=== PATIENT | female | born 1950 | race Caucasian/White ===

== ENCOUNTER 2018-08-28 01:31 | Inpatient (IN) | payer MEDICARE, MEDICAID ==
[2018-08-28] VITALS (7 sets, daily range): BP systolic 106–122; BP diastolic 55–73; PULSE 67–85; RESP 18–24; Ht 154.9 cm; Wt 59.6 kg
[~2018-08-28] VITALS: Ht 154.9 cm; Wt 59.6 kg
[2018-08-28] MEDS ORDERED: SOD CHLORIDE 0.9% 1,000 ML IV ONE ×2 (02:00→04:30)
[2018-08-28] MEDS ORDERED: VANCOMYCIN 1 GM (PMX) 250 ML IVPB STA (02:45)
[2018-08-28] MEDS ORDERED: AZTREONAM 1 GM/NS (PMX) 50 ML IVPB STA (02:45)
[2018-08-28] MEDS ORDERED: ACETAMINOPHEN 325 MG TAB PO PRN (04:00)
[2018-08-28] MEDS ORDERED: ONDANSETRON 4 MG INJ IV PRN (04:00)
[2018-08-28] MEDS ORDERED: BISACODYL (EC) 5 MG TAB PO PRN (04:00)
[2018-08-28] MEDS ORDERED: NACL 0.9% 3 ML SYG IV SCH (04:00)
[2018-08-28] MEDS ORDERED: DOCUSATE SODIUM 100 MG CAP PO PRN (04:00)
--- NOTE | 2018-08-28 04:27 | HP ---
Date/Time of Note Date/Time of Note DATE: 08/28/18 TIME: 04:20 Assessment/Plan VTE Prophylaxis Pharmacological prophylaxis: heparin Lines/Catheters IV C[facility] Type (from [facility] Saline Lock Urinary Cath still in place: Yes Reason Cath still needed: other (indicate) (clinical condition) Assessment/Plan Hospital Course This is a 67-year-old female being admitted to the telemetry floor for: #1 suspect septic shock: Patient was noted to have a temperature of 93.7 on admission as well as hypotension. She was also noted to be hypoxic prior to arrival. She has a normal white blood cell count. Chest x-ray is concerning for bilateral healthcare associated pneumonia. She was started on vancomycin and aztreonam, will continue this regimen at the current time. Will await culture results. Lactic acid was within normal values will trend. IV fluid resuscitation with normal saline and maintenance normal saline. If blood pressures do not respond to fluid bolus may need vasopressor support. #2 suspect healthcare associated pneumonia: Bilateral infiltrates noted on chest x-ray, currently on vancomycin and aztreonam. Consider CT of the chest for further evaluation. #3 hypoxia: Likely secondary to underlying pneumonia, will also check a d-dimer level to rule out pulmonary embolism. #4 acute versus acute on chronic kidney disease: I do not have a previous baseline creatinine. Creatinine 1.28. Likely prerenal etiology secondary to underlying hypoperfusion, sepsis, hypovolemia. She did receive IV fluid resuscitation in the ED, continue maintenance IV fluids. Monitor renal f unction. #5 normocytic anemia, chronic: No signs of overt bleeding at the current time. Continue to monitor. Will check iron stores. #6hypothyroidism: We will check a TSH, continue levothyroxine we will converted to IV dosing #7 vascular dementia: Continue to monitor, resume home medications as indicated #8 behavioral disorder: Patient has a history of conversion disorder, schizophrenia, anxiety, depression. Resume home medications as indicated #9 hypertension: We will hold home blood pressure medication at the current time given patient's hypotension. #10 DVT and GI prophylaxis: Heparin subcu, no GI prophylaxis indicated #11 CODE STATUS: Currently full code, will need to reach out to the [facility] facility in regards to contacting the next of kin. I did not see any advanced directives in the patient's chart. Further treatment strategy will be implemented as per the clinical course. Result Diagram: 08/28/1820608/28/18 020 Results 24hrs Laboratory Tests Test 08/28/18 01:55 08/28/18 01:58 08/28/18 02:06 08/28/18 02:07 Bedside Glucose 123 POC Venous 1.8 Lactate Urine Color YELLOW Urine Clarity SLIGHTLY CLOUDY A Urine pH 5.0 Urine Specific 1.023 [place] Urine Ketones NEGATIVE Urine Nitrite NEGATIVE Urine Bilirubin NEGATIVE Urine NEGATIVE Urobilinogen Urine Leukocyte NEGATIVE Esterase Urine Microscopic 1 RBC Urine Microscopic 1 WBC Urine Bacteria FEW A Urine Mucus FEW A Urine Hemoglobin NEGATIVE Urine Glucose NEGATIVE Urine Total 1+ H Protein White Blood Count 6.7 Red Blood Count 3.35 L Hemoglobin 11.0 L Hematocrit 32.8 L Mean Corpuscular 97.9 Volume Mean Corpuscular 32.8 Hemoglobin Mean Corpuscular 33.5 Hemoglobin Concen t Red Cell 14.5 Distribution Width Platelet Count 261 Mean Platelet 10.5 H Volume Immature 0.700 H Granulocytes % Neutrophils % 40.5 Lymphocytes % 42.7 Monocytes % 14.8 H Eosinophils % 0.9 Basophils % 0.4 Nucleated Red 0.0 Blood Cells % Immature 0.050 H Granulocytes # Neutrophils # 2.7 Lymphocytes # 2.9 Monocytes # 1.0 H Eosinophils # 0.1 Basophils # 0.0 Nucleated Red 0.0 Blood Cells # Prothrombin Time 13.2 Prothrombin Time 1.0 Ratio INR International 0.99 Normalized Ratio Activated 33.3 Partial Thrombopl ast Time Sodium Level 135 Potassium Level 4.8 Chloride Level 99 Carbon Dioxide 22 Level Anion Gap 14 H Blood Urea 18 Nitrogen Creatinine 1.28 H Est Glomerular 42 L Filtrat Rate mL/min Glucose Level 117 Calcium Level 9.3 Total Bilirubin 0.0 L Direct Bilirubin 0.00 Indirect 0.0 Bilirubin Aspartate Amino 34 Transf (AST/SGOT) Alanine 11 L Aminotransferase (ALT/SGPT) Alkaline 79 Phosphatase Troponin I < 0.012 Total Protein 7.8 Albumin 3.9 Globulin 3.90 H Albumin/Globulin 1.00 Ratio HPI/ROS Admit Date/Time Admit Date/Time Hx of Present Illness Chief complaint: Unresponsive, hypotensive The following history was obtained from the ED nursing documentation and EMS report as patient was unable to provide history given her history of dementia. This is a 67-year-old female brought in by ambulance from [facility] where she was noted to be unresponsive and hypotensive. Patient was apparently found on the couch asleep without a blanket and she felt cold. Patient was unable to be awoken. Her blood pressure was checked by the caregivers and who was reported to be hypotensive with her oxygen saturation b eing approximately 78%. In the emergency room patient's blood pressure was noted to be in the 80s systolic. She was noted to be awake and moaning. Her temperature was noted to be 93.7 degrees and her oxygenation at that time was noted to be 94-97% on room air. Upon my examination the patient at the bedside she is easily arousable and she does know her name however she is unable to provide any further history. She has a warming blanket on. Allergies: Penicillin, sulfa, tryptophan, clindamycin, ketorolac, lactase Medications: See CASSIDY RIVERS Subjective hx not possible: other (Unable to provide history secondary to dementia and clinical condition) PMH/Family/Social Past Medical History Anemia, neutropenia, hypothyroidism, dementia vascular dementia, schizophrenia, psychosis, major depressive disorder, anxiety disorder, conversion disorder with seizures, encephalopathy, hypertension Medications Current Medications Vancomycin HCl 250 ml @ 125 mls/hr ONCE STAT IVPB Last administered on 08/28/18at 03:59; Admin Dose 125 MLS/HR; Start 08/28/18 at 02:45; Stop 08/28/18 at 04:44 Sodium Chloride 1,000 ml @ 100 mls/hr Q10H IV ; Start 08/28/18 at 03:39; Status UNV IV Flush (NS 3 ml) 3 ml PER PROTOCOL IV ; Start 08/28/18 at 04:00; Status UNV Ondansetron HCl (Zofran Inj) 4 mg Q4H PRN IV NAUSEA; Start 08/28/18 at 04:00; Status UNV Acetaminophen (Tylenol Tab) 650 mg Q6H PRN PO FEVER GREATER THAN 100.6; Start 08/28/18 at 04:00; Status UNV Docusate Sodium (Colace) 100 mg Q12H PRN PO CONSTIPATION; Start 08/28/18 at 04:00; Status UNV Bisacodyl (Dulcolax) 5 mg DAILY PRN PO CONSTIPATION; Start 08/28/18 at 04:00; Status UNV Vancomycin HCl (Vanco Iv Per Pharmacy) VANCOMYCIN PER PHARMACY PER PROTOCOL XX ; Start 08/28/18 at 04:00; Status UNV Aztreonam 50 ml @ 100 mls/hr Q12 IVPB ; Start 08/28/18 at 09:00; Status UNV Coded Allergies: Penicillins (Verified Allergy, Unknown, 08/28/18) Sulfa (Sulfonamide Antibiotics) (Verified Allergy, Unknown, 08/28/18) clindamycin (Verified Allergy, Unknown, 08/28/18) ketorolac (Verified Allergy, Unknown, 08/28/18) lactase (Verified Allergy, Unknown, 08/28/18) Uncoded Allergies: TRYPTOPHAN (Allergy, Unknown, 08/28/18) Past Surgical History : Unable to obtain given patient's clinical condition, dementia Family History Significant Family History: no pertinent family hx Social History Smoking Status: Unknown if ever smoked Exam/Review of Systems Vital Signs Vitals Vital Signs Date Temp Pulse Resp B/P (MAP) Pulse Ox O2 O2 Flow FiO2 Time Delivery Rate 08/28/18 96.1 79 12 103/65 98 Room Air 03:19 (78) Nasal Cannula 08/28/18 2 02:34 Intake and Output 08/27/18 08/27/18 08/28/18 1414:59 22:59 06:59 IntakeIntake Total 600 ml OutputOutput Total 15 ml BalanceBalance 585 ml Exam Exam General: Patient currently lying in bed she does not appear to be in any acute d istress, she is awake. HEENT: Atraumatic, normocephalic. The pupils are equal, round and reactive. E xtraocular motor are intact, mucous membranes dry Neck: Supple with full range of motion. No rigidity or meningismus Chest: Nontender Lungs: Coarse breath sounds bilaterally Heart: Normal S1-S2, Regular rhythm and rate. Abdomen: Soft , nontender, nondistended , bowel sounds are present. No guarding no rebound tenderness , No masses or organomegaly. No costovertebral temporal angle mass Extremities: Normal to inspection, no edema no cyanosis Neurologic: Awake, does say her name, further neurological examination was not able to be done given patient's dementia and clinical condition. Additional Comments EKG: Normal sinus rhythm at approximately 70 bpm, no ST or T wave abnormalities concerning for acute ischemia PROCEDURE: XR Chest. CLINICAL INDICATION: Sepsis. TECHNIQUE: AP Portable chest. COMPARISON: No pertinent prior examinations were submitted for comparison. FINDINGS: The cardiomediastinal silhouette is normal. The lung volumes are low with compressive changes. There are bibasilar opacities, greater on the right.. The osseous structures are intact. IMPRESSION: Low lung volumes. Bibasilar infiltrates. [facility] Physician Vira Date Time Electronically viewed and signed by Nenita Shepard Physician on 08/28/2018 02:35 CS/ CC: ODETTE CARPENTER [phone] BRIDGET DAHL Aug 28, 2018 04:27
[2018-08-28] MEDS ORDERED: VANCOMYCIN IV PER PHARMACY XX SCH (05:00)
[2018-08-28] MEDS: SOD CHLORIDE 0.9% 1,000 ML IV SCH ×3 (06:18→23:18)
[2018-08-28] MEDS ORDERED: BISA5TAB6 PO (06:44)
[2018-08-28] MEDS: HEPARIN 5,000 UNIT/1 ML VIAL SC SCH ×3 (06:44→20:34)
[2018-08-28] MEDS ORDERED: MINE133E23 PR (06:45)
[2018-08-28] MEDS ORDERED: ACET-2047 PO (06:45)
[2018-08-28] MEDS ORDERED: LEVE-5 PO (06:46)
[2018-08-28] MEDS ORDERED: PHEN1SUP80 PR (06:46)
[2018-08-28] MEDS ORDERED: GABA400C14 PO (06:46)
[2018-08-28] MEDS ORDERED: LEVO50TA7 PO (06:47)
[2018-08-28] MEDS ORDERED: METO-448 PO (06:47)
[2018-08-28] MEDS ORDERED: POLY17PO6 PO (06:48)
[2018-08-28] MEDS ORDERED: MULTI PO (06:49)
[2018-08-28] MEDS ORDERED: SENN-120 PO (06:49)
[2018-08-28] MEDS ORDERED: QUET200T PO ×2 (06:49→06:50)
[2018-08-28] MEDS ORDERED: TRA100 PO (06:50)
[2018-08-28] MEDS ORDERED: LACT20SO2 PO (06:51)
[2018-08-28] MEDS ORDERED: LORA1TAB PO (06:51)
[2018-08-28] MEDS ORDERED: ATOR10TA65 PO (06:51)
[2018-08-28] MEDS ORDERED: DIVA-48 PO (06:52)
[2018-08-28] MEDS ORDERED: DOCU-144 PO (06:52)
[2018-08-28] MEDS ORDERED: DONE5TAB7 PO (06:52)
[2018-08-28] MEDS ORDERED: SOD CHLORIDE 0.9% 100 ML ONE (07:21)
[2018-08-28] MEDS ORDERED: IOHEXOL 100 ML ONE (07:21)
--- NOTE | 2018-08-28 07:43 | NUR ---
Procedure Ordered:CTA CHEST Reason for Exam Today:ELEVATED D DIMER Previous Exams: Allergies:NONE TO IODINE Current Medications Taken: Glucophage ( ) Metformin ( ) Previous reaction to contrast media: Yes ( ) No ( ) : Yes ( ) No ( X) Asthma: Yes ( ) No ( X) Diabetes: Yes ( ) No (X ) Myeloma: Yes ( ) No (X ) Heart Disease: Yes ( X) No ( ) Cardiac Disease: Yes (X ) No ( ) Kidney Disease: Yes ( ) No (X ) Vascular Disease: Yes ( ) No (X ) Patient Teaching done: Yes ( ) No ( ) Sheet Tester Used: Yes ( ) No ( ) Name of Sheet Tester: Language Used: As part of the test requested by your doctor, contrast media may be injected into your vein while the x-rays are being taken. Occasionally, reactions from IV contrast may occur. The physician and staff of this hospital are trained to treat these reactions. Select the type of Contrast that will be given to patient: Isovue 300 ( ) Isovue 370 ( ) Visipaque ( ) Cystografin ( ) OMNIPAQUE 350 (X) Gastrographin ( ) Redi-cat ( ) Volumen ( ) Amount of contrast to be given: 90CC IV ( X) PO ( ) Date given:08/28/17 Lab Values: BUN: 18 Creatinine:1.28 Reason why contrast cannot be given: Location of patient pre-procedure:[facility] 5 Location of patient post procedure:[facility] 5 PT TOLERATED IV CONTRAST INJECTION WELL
--- NOTE | 2018-08-28 08:10 | NUR ---
Admission Pt came from ER via stretcher. Pt localizes to pain. Pt moans and is altered. court recording monitor placed. No family at bedside. Admission question answer is limited due to Pt unable to comprehend. Warming measures applied per MD order, Pt on a bear hugger as temperature is 95.9. Admission assessment done. Skin assessment done with charge nurse Yoon GILLILAND and pictures taken, filled on the chart. No belongings sent with Pt. Will continue to monitor Pt closely. Addendum: 08/28/18 at 1315 by MARVEL CARTER RN Spoke with DARSHANA Hui in [facility] to verify Pt's baseline. Per Ez GILLILAND, Pt is usually always moaning and crying at the facility too and stated that Pt's mentation is alert and oriented x 1 only. Addendum: 08/28/18 at 1644 by MARVEL CARTER RN Pt belongings sent from ER kept in the patient's room are: 1 set of clothes and 1 pair of shoes.
[2018-08-28] MEDS: LEVETIRACETAM 500 MG (PMX) 100 ML IVPB SCH ×2 (10:42→20:30)
[2018-08-28] MEDS: LEVOTHYROXINE 100 MCG VIAL IV SCH (10:53)
--- NOTE | 2018-08-28 12:33 | NUR ---
RX NOTE RE: VANCO DAY#1 OF VANCO PER RX HEIGHT: 61" WEIGHT: 59.6KG BUN/SCR: 18.28 WBC: 6.7 ALLERGIES: PCN, SULFA, CLINDAMYCIN, TRYPTOPHAN, KETOROLAC, LACTASE LOADED VANCO 1GM X1, C/W VANCO 750MG IV Q24H PHARMACY TO FOLLOW
[2018-08-28] MEDS: AZTREONAM 1 GM/NS (PMX) 50 ML IVPB SCH ×2 (13:06→20:30)
[2018-08-28] MEDS: HALOPERIDOL 5 MG INJ IM PRN (14:37)
--- NOTE | 2018-08-28 19:00 | NUR ---
EOSS Pt was agitated and anxious most of the day. MD was made aware. Pt continues to yell and moan throughout the day. Bedside swallow evaluation was done with charge nurse Yoon, Pt passed, diet advanced to pureed per MD order. ST eval pending. Pt was kept comfortable throughout the day. Repositioned q2h. Called Pt's family and left a message, awaiting for call back. MRI on hold as Pt is altered and can't get a hold of the patient's family to do MRI questionnaire. Call light within reach. Hourly rounding provided. Will endorse to next shift accordingly.
[2018-08-28] MEDS: DOCUSATE SODIUM 100 MG CAP PO SCH (20:30)
[2018-08-28] MEDS: traZODone 100 MG TAB PO SCH (20:31)
[2018-08-28] MEDS: QUETIAPINE 100 MG TAB PO SCH (20:31)
--- NOTE | 2018-08-28 23:19 | NUR ---
NOTES RESTING ON BED WITH IV FLUID INFUSING WILL. MEDS GIVEN. PT WAS SCREAMING INCOHERENT. O2 VIA NASAL CANNULA. TURN TO SIDE DONE AND KEEP HER COMFORTABLE. DR DAHL INFORMED ABOUT PT WAS SCREAMING AND ORDER TO GIVE HER REGULAR MEDS FOR SLEEP. MEDS GIVEN WITH APPLE SAUCE.
[2018-08-29] VITALS (10 sets, daily range): BP systolic 123–162; BP diastolic 62–84; PULSE 78–94; RESP 16–22
--- NOTE | 2018-08-29 00:07 | NUR ---
NOTES REPORT GIVEN TO KARLA GILLILAND.
[2018-08-29] MEDS: HALOPERIDOL 5 MG INJ IM PRN ×2 (01:46→17:37)
[2018-08-29] MEDS ORDERED: VANCOMYCIN 750 MG (PMX) 250 ML IVPB SCH (04:00)
[2018-08-29] MEDS: HEPARIN 5,000 UNIT/1 ML VIAL SC SCH ×3 (05:53→22:05)
[2018-08-29] MEDS: SOD CHLORIDE 0.9% 1,000 ML IV SCH ×2 (08:37→22:11)
[2018-08-29] MEDS: DOCUSATE SODIUM 100 MG CAP PO SCH ×2 (08:37→22:03)
[2018-08-29] MEDS: LEVOTHYROXINE 100 MCG VIAL IV SCH (08:40)
[2018-08-29] MEDS: LEVETIRACETAM 500 MG (PMX) 100 ML IVPB SCH ×2 (08:41→22:02)
[2018-08-29] MEDS ORDERED: INFLUENZA VIRUS VACCINE 0.5 ML (DISPENSING) IM* ONE (09:00)
[2018-08-29] MEDS: AZTREONAM 1 GM/NS (PMX) 50 ML IVPB SCH ×2 (09:14→22:02)
--- NOTE | 2018-08-29 12:22 | NUR ---
Bedside Clinical Swallow Evaluation Completed: Brief Hx: Ms. Becerra is a 67-year-old female being admitted after being transferred from [facility] for suspect septic shock. Per chart review, the pt was hypoxic s/p bilateral PNA upon arrival. PMHX: normocytic anemia, chronic, hypothyroidism, vascular dementia and hypertension. Chest XR completed on 08/28/2018: FINDINGS: The lung volumes are low with compressive changes. There are bibasilar opacities, greater on the right.. The osseous structures are intact. Low lung volumes. Bibasilar infiltrates. Vitals; temp: 98.2; RR: 20-22; SPO2: 99% on 2 liters/min on NC; Labs: WBC: 3.2L; Hgb/Hct: 9.9L/30.5L; NA: 142; K: 4.7; Chloride level: 107; Co2: 23; BUN: 10; Cr level: 0.66; Urine total P: 1+H PLOF: puree and thin liquids Current: puree and thin liquids Subjective assessment of cognition specific to swallow safety: Pt was received awake, alert, responsive to name and oriented to self, inconsistently follow simple commands. Oral mechanism examination completed: Face was symmetrical, lips, tongue and soft palate were symmetrical, unable to test strength of tongue and edentulous. P.O trials consisting of the following: thin liquids by cup and straw (single and sequential sips), puree x 8 bites. Oral phase of swallow: Reduced oral motor strength/coordination. Slow but adequate bolus manipulation, mastication and cohesive formation. Delayed anterior to posterior transit. Anterior oral leakage with thin liquids by cup out of the left lower labial region with sequential sips s/p reduced labial strength/seal. No residue was noted in the oral cavity after the swallow. Reduced oral control with larger volumes of thin liquid by cup and straw, resulting in suspected premature loss into the hypopharynx before initiation of the swallow. Pharyngeal phase of swallow: Mildly delayed trigger of swallow. Age appropriate hyolaryngeal excursion and elevation. Suspected residue in the pharyngeal cavity after the initial swallow but cleared with liquid wash. No overt s/s of aspiration or penetration noted. Reduced coordination of breath with swallow safety. Vocal quality was clear across p.o trials. Impression: Mild oropharyngeal dysphagia associated with reduced oropharyngeal strength/coordination, delayed trigger of swallow and reduced safety awareness s/p vascular dementia. Pt is safe to continue with modified diet and use of swallowing precautions. Recommendations: 1. Initiate dysphagia therapy 1-3x per week for 1-2 weeks 2. Continue puree diet and thin liquids by cup. no straws at this time. 3. ongoing swallow assessment.
[2018-08-29] MEDS ORDERED: MAGNESIUM SULFATE 2 GM/50 ML 50 ML IVPB ONE (12:30)
--- NOTE | 2018-08-29 12:35 | PN ---
Date/Time of Note Date/Time of Note DATE: 08/29/18 TIME: 12:21 Assessment/Plan VTE Prophylaxis Risk score (from Nsg)>0 risk: 7 SCD applied (from Nsg): Yes Pharmacological prophylaxis: heparin Lines/Catheters IV Catheter Type (from Nrsg): Peripheral IV Urinary Cath still in place: Yes Reason Cath still needed: other (indicate) Assessment/Plan Assessment/Plan S: calmer, moaning when aroused O: Constitutional: was sleeping comfortably, began moaning when aroused, no clear speech Head: atraumatic, normocephalic Neck: non-tender, supple Respiratory: diminished in the bases with coarse BS Cardiovascular: regular rate and rhythm Gastrointestinal: S/ NT / ND / +BS Extremities: no edema, good radial pulses Neuro: confused, non verbal, moaning only Assessment and Plan: This is a 67-year-old female sent from [facility] where she was noted to be unresponsive and hypotensive. Patient was apparently found on the couch asleep without a blanket and she felt cold. She is currently managed as follows: 1. Acute encephalopathy: Resolved? -Patient baseline supposedly is -Oriented x1 slowly unknown if patient is usually ambulant on not. Back to baseline? -Cleared for pured diet per speech therapy 2. Status post septic shock: -Secondary to bilateral pneumonia , rule out aspiration and UTI -Shock resolved with fluids only -Urine growing enterococcus, blood cultures remain negative so far 3. Jim Pneumonia (HCAP): ? aspiration 4. Enterococcus UTI: abx per sensitivities 5. Acute hypoxia: improved -Likely secondary to underlying pneumonia, no PE on CTA. 6. Acute kidney disease: resolved - Likely prerenal etiology secondary to underlying hypoperfusion, sepsis, hypovolemia. -Monitor renal function. #5 normocytic anemia, chronic: -No signs of overt bleeding at the current time. Continue to monitor. 8. Chronic hypothyroidism: -TSH wnl, continue home dose of levothyroxine 9. vascular dementia: Chronic -Continue to monitor, resume home medications as indicated 10. behavioral disorder: -Patient has a history of conversion disorder, schizophrenia, anxiety, depression. Resume home medications as indicated 11. hypertension: -Monitor for now, resume home antihypertensives as indicated Further treatment strategy will be implemented as per the clinical course. Result Diagram: 08/29/18 0458 08/29/18 0458 Results 24hrs Laboratory Tests Test 08/29/18 04:58 White Blood Count 3.2 #L Red Blood Count 3.08 L Hemoglobin 9.9 L Hematocrit 30.5 L Mean Corpuscular Volume 99.0 Mean Corpuscular Hemoglobin 32.1 Mean Corpuscular Hemoglobin Concent 32.5 Red Cell Distribution Width 14.5 Platelet Count 303 Mean Platelet Volume 10.9 H Immature Granulocytes % 0.300 Neutrophils % 20.7 L Lymphocytes % 67.3 H Monocytes % 9.5 Eosinophils % 1.9 Basophils % 0.3 Nucleated Red Blood Cells % 0.0 Immature Granulocytes # 0.010 Neutrophils # 0.7 L Lymphocytes # 2.1 Monocytes # 0.3 Eosinophils # 0.1 Basophils # 0.0 Nucleated Red Blood Cells # 0.0 Sodium Level 142 Potassium Level 4.7 Chloride Level 107 Carbon Dioxide Level 23 Anion Gap 12 Blood Urea Nitrogen 10 Creatinine 0.66 Est Glomerular Filtrat Rate mL/min > 60 Glucose Level 69 #L Hemoglobin A1c 5.2 Calcium Level 9.3 Magnesium Level 1.6 L Total Bilirubin 0.1 L Direct Bilirubin 0.00 Indirect Bilirubin 0.1 Aspartate Amino Transf (AST/SGOT) 29 Alanine Aminotransferase (ALT/SGPT) 18 Alkaline Phosphatase 76 Total Protein 7.0 Albumin 3.3 Globulin 3.70 H Albumin/Globulin Ratio 0.89 Triglycerides Level 78 Cholesterol Level 126 LDL Cholesterol, Calculated 74 HDL Cholesterol 36 Cholesterol/HDL Ratio 3.5 Thyroid Stimulating Hormone (TSH) 4.250 Exam/Review of Systems Exam Vitals Vital Signs Date Temp Pulse Resp B/P (MAP) Pulse Ox O2 O2 Flow FiO2 Time Delivery Rate 08/29/18 97.2 78 20 133/64 99 Nasal 10:56 (87) Cannula 08/29/18 2.0 08:00 Intake and Output 08/28/18 08/28/18 08/29/18 1414:59 22:59 06:59 IntakeIntake Total 1850 ml OutputOutput Total 1950 ml 1000 ml BalanceBalance -100 ml -1000 ml Results Results 24hrs Laboratory Tests Test 08/29/18 04:58 White Blood Count 3.2 #L Red Blood Count 3.08 L Hemoglobin 9.9 L Hematocrit 30.5 L Mean Corpuscular Volume 99.0 Mean Corpuscular Hemoglobin 32.1 Mean Corpuscular Hemoglobin Concent 32.5 Red Cell Distribution Width 14.5 Platelet Count 303 Mean Platelet Volume 10.9 H Immature Granulocytes % 0.300 Neutrophils % 20.7 L Lymphocytes % 67.3 H Monocytes % 9.5 Eosinophils % 1.9 Basophils % 0.3 Nucleated Red Blood Cells % 0.0 Immature Granulocytes # 0.010 Neutrophils # 0.7 L Lymphocytes # 2.1 Monocytes # 0.3 Eosinophils # 0.1 Basophils # 0.0 Nucleated Red Blood Cells # 0.0 Sodium Level 142 Potassium Level 4.7 Chloride Level 107 Carbon Dioxide Level 23 Anion Gap 12 Blood Urea Nitrogen 10 Creatinine 0.66 Est Glomerular Filtrat Rate mL/min > 60 Glucose Level 69 #L Hemoglobin A1c 5.2 Calcium Level 9.3 Magnesium Level 1.6 L Total Bilirubin 0.1 L Direct Bilirubin 0.00 Indirect Bilirubin 0.1 Aspartate Amino Transf (AST/SGOT) 29 Alanine Aminotransferase (ALT/SGPT) 18 Alkaline Phosphatase 76 Total Protein 7.0 Albumin 3.3 Globulin 3.70 H Albumin/Globulin Ratio 0.89 Triglycerides Level 78 Cholesterol Level 126 LDL Cholesterol, Calculated 74 HDL Cholesterol 36 Cholesterol/HDL Ratio 3.5 Thyroid Stimulating Hormone (TSH) 4.250 LAURA OLIVA Aug 29, 2018 12:32
--- NOTE | 2018-08-29 12:56 | CONS ---
DATE OF ADMISSION: 08/28/2018 DATE OF CONSULTATION: 08/29/2018 TYPE OF CONSULTATION: Infectious disease. REASON FOR CONSULTATION: Antibiotic management. HISTORY OF PRESENT ILLNESS: Mariam Leal is a 67-year-old female being admitted with suspected septic shock and being seen for antibiotic management. The patient comes in unresponsive and hypote nsive. Her problems include: 1. Senile dementia. 2. Hypotension. 3. Hypothyroidism. 4. Schizophrenia. 5. Psychosis and major depressive disorder. 6. Anxiety disorder. 7. Conversion disorder with seizures. 8. Encephalopathy. 9. Hypertension. The patient was brought in by ambulance from [facility] and [facility]. She was noted to be unresponsive and hypotensive. She was found asleep on a couch without a blanket. She was unable to be awakened. Her oxygen saturation was 78%. In the emergency room, her blood pressure was in the 8 0s. She became awake, started to moan. Temperature was 93.7. She became arousable, but is totally confused. PAST MEDICAL HISTORY: As outlined. FAMILY HISTORY: Noncontributory. SOCIAL HISTORY: She lives in a SNF. She has a history of dementia. We do not know if she smokes or if she ever smoked in the past. ALLERGIES: 1. PENICILLIN. 2. SULFA. 3. CLINDAMYCIN. 4. KETOROLAC. 5. LACTASE. PHYSICAL EXAMINATION: GENERAL: She is lying in bed in no acute distress. VITAL SIGNS: Stable. She is afebrile. SKIN: Without generalized rash. HEENT: Within normal limits. NECK: Supple. LYMPH NODES: None palpable. CHEST: Decreased breath sounds at the bases. HEART: Without murmur or gallop. ABDOMEN: Soft, nontender, nondistended without organosplenomegaly or masses. EXTREMITIES: Without cyanosis, clubbing or edema. RECTAL AND GENITAL: Deferred. NEUROLOGICAL: No focal neurological abnormality, but the patient is demented. RECTAL AND GENITAL: Deferred. HOSPITAL COURSE: Chest x-ray: Low volumes, bibasilar infiltrates. The patient was begun on vancomy jaylyn and aztreonam. Urine culture so far is growing Enterococcus species. Blood cultures are negativ e. A CT angiogram of the chest and thorax shows no central pulmonary emboli, no right heart strain o r failure, prominent central pulmonary arteries to rule out pulmonary arterial hypertension, no aorti c aneurysmal dissection, bilateral consolidation, mild consolidation involving the posterior aspects of the right and left upper lobes and right and left lower lobes consistent with subsegmental atelect asis, superimposed acute infiltrates in these regions not be excluded. The patient is status post ch olecystectomy. No evidence of thoracic effusions, pneumothorax or lymphadenopathy. IMPRESSION AND PLAN: The patient comes in with suspected septic shock with hypothermia and hypotensi on and hypoxemia. She has bilateral healthcare-associated pneumonia. We could put her on cefepime i nstead of Azactam, but for now await for the cultures. Urine is growing as Enterococcal species. I will dictate my findings to the hospitalist. Dictated By: JOCELYNN MAYFIELD MD CLAYTON/NTS Conf#: [id number] DID#: [id number] CC: BRIDGET DAHL MD;*EndCC*
--- NOTE | 2018-08-29 15:45 | NUR ---
WALDO: REFERRAL TO PUBLIC GUARDIAN OFFICE WALDO receied consult to arrange a family conference by Dr. Ceja for this patient. WALDO reviewed this case, and the only appraiser personal property listed is for a Kristin Roman ([phone])- disconnected, and ([phone])- a voicemail message left requesting call back. WALDO also contacted [facility] and spoke with Kati, who states that patient does NOT have any family or responsible green party. Kati states that patient's only family member, Ed, of a heart attack in June, on 2017. She states that Kristin was once a caregiver for patient, and she lives in [place], [place]. WALDO has left a M for Kristin requesting call back. WALDO also referred this case to Public Guardian, as patient has no family or responsible green party. SW awaiting call back from Kristin. [employer] remains available as needed throughout patient's treatment process. Dr. Ceja states that the plan is for her to return back to SNF once medically cleared.
[2018-08-29] MEDS ORDERED: morphine 4 MG/ML VIAL IV PRN (17:00)
--- NOTE | 2018-08-29 18:13 | NUR ---
EOSS Patient stable, A/Ox1, unable to communicate, non-verbal, only moans and yells, sinus rhythm, afebrile, patient did nod when asked if in pain, administered 1mg morphine x1 since patient continued to be agitated administered haldol 3mg IM x1, administered flu vaccine, repleted magnesium, turned Q2H, tolerating diet, manager social responsibility on the case due to lack of family contact, will endorse to awake overnight monitor.
--- NOTE | 2018-08-29 20:26 | NUR ---
VANCO PER RX PROTOCOL: DAY #2 S/O: AFEB SCR/BUN = 0.66/10 WBC = 3.2 A/P: RENAL FUNCT MUCH IMPROVED, CHANGE VANCO TO 500MG Q 12HR WITH TR LEVEL ON 4TH DOSE TO CHECK CLEARANCE. WILL CONTINUE TO FOLLOW.
[2018-08-29] MEDS: VANCOMYCIN 500 MG (PMX) 100 ML IVPB SCH (22:00)
[2018-08-29] MEDS: traZODone 100 MG TAB PO SCH (22:03)
[2018-08-29] MEDS: QUETIAPINE 100 MG TAB PO SCH (22:03)
[2018-08-29] MEDS: DIVALPROEX (EC) 500 MG TAB PO SCH (22:03)
[2018-08-29] MEDS: DONEPEZIL 5 MG TAB PO SCH (22:03)
[2018-08-29] MEDS: ATORVASTATIN 10 MG TAB PO SCH (22:03)
[2018-08-30] VITALS (8 sets, daily range): BP systolic 126–145; BP diastolic 58–96; PULSE 75–95; RESP 17–20
[2018-08-30] MEDS: VANCOMYCIN 500 MG (PMX) 100 ML IVPB SCH ×3 (05:34→16:52)
[2018-08-30] MEDS: HEPARIN 5,000 UNIT/1 ML VIAL SC SCH ×3 (05:41→22:20)
--- NOTE | 2018-08-30 07:38 | NUR ---
RN NOTES: NEW ORDER FOR VANCO 500MG IV GIVEN. PT SLEPT MOST OF THE TIME DURING SHIFT, BUT SCREAMING AND MOANING WHEN BEING TOUCH. ABLE TO TAKE CRUSHED MEDS WITH APPLE SAUCE. F/C TO GRAVITY. VS STABLE. ENDORSED.
[2018-08-30] MEDS: LEVOTHYROXINE 50 MCG TAB PO SCH (08:53)
[2018-08-30] MEDS: DIVALPROEX (EC) 500 MG TAB PO SCH ×2 (08:53→22:18)
[2018-08-30] MEDS: MULTIVITAMINS THERAPEUTIC TAB PO SCH (08:53)
[2018-08-30] MEDS: DOCUSATE SODIUM 100 MG CAP PO SCH ×2 (08:53→22:18)
[2018-08-30] MEDS: METOPROLOL 25 MG TAB PO SCH (08:54)
[2018-08-30] MEDS: POLYETHYLENE GLYCOL 17 GM PACKET PO SCH (08:54)
[2018-08-30] MEDS: LEVETIRACETAM 500 MG (PMX) 100 ML IVPB SCH ×2 (08:54→22:22)
[2018-08-30] MEDS: AZTREONAM 1 GM/NS (PMX) 50 ML IVPB SCH ×2 (10:24→22:22)
[2018-08-30] MEDS: HALOPERIDOL 5 MG INJ IM PRN (10:30)
[2018-08-30] MEDS: SOD CHLORIDE 0.9% 1,000 ML IV SCH (11:19)
--- NOTE | 2018-08-30 11:31 | NUR ---
PT EVALUATION , RN CLEARED , PATIENT AWAKE MOANING WHEN BEING TOUCH, PATIENT ORIENTED TO NAME ONLY , OCC.ABLE TO FOLLOW ONE SIMPLE STEP COMMAND INCONSISTENTLY , PATIENT IS A 67 Y/O FEMALE WITH PMH: HTN , VASCULAR DEMENTIA , BEHAVIORAL DISORDER , ANXIETY, DEPRESSION , H.OF CONVERSION DISORDER ADMITTED TO [facility] FROM SNF DUE TO SEPTIC SHOCK, PNA , AND HYPOXIA , PATIENT FOUND IN BED IN SUPINE POSITION , OCC.ABLE TO PARTICIPATE IN AA/ROM BLE'S INCLUDING: AP, KNEE FLEX, EXT, SAQ , AND SLR , ATTEMPTED TO SIT HER UP AT EOB WITH MAX A , BUT PATIENT VERY RESISTANT AND RETURNED BACK TO BED , WILL RE-ASSESS PATIENT SITTING BALANCE /STANDING BALANCE WHEN /IF ABLE . VS STABLE RN IN ROOM AND AWARE OF PATIENT'S FUNCTIONAL STATUS . ( PER [facility] : SNF , PATIENT IS A POOR HISTORIAN VERY MUCH W/C BOUND BUT OCC.ABLE TO STAND AND AMBULATE LIMITED STEPS W/FWW ) . A: PT RECOMMEND RETURN TO SNF ONCE CLEARED BY MD . P: PT DAILY X5 ( BED MOBILITY TR, THERA EXE'S , ROM EXE'S, AND RE-ASSESS FOR SITTING BALANCE , STANDING BALANCE WHEN /IF ABLE ALSO WILL BE RE-ASSESS FOR PRE-GAIT TR / GAIT TR W/FWW WHEN/ IF ABLE , PATIENT EDUCATION , TRAINING .
[2018-08-30] MEDS ORDERED: MAGNESIUM SULFATE 2 GM/50 ML 50 ML IVPB ONE (13:30)
--- NOTE | 2018-08-30 13:51 | NUR ---
CASE MANAGEMENT NOTE PT IS A RESIDENT OF [facility] [address] [facility] [id number] [phone] THIS CM S/W [facility] AND PER [facility] PT MAY RETURN, UPDATED CLINICALS SENT TO [facility] AT [phone] , CM WILL CONTINUE TO FOLLOW UP. Addendum: 08/30/18 at 1354 by TARA CASTRO RN, CM Amended: Links added.
--- NOTE | 2018-08-30 14:26 | DS ---
Date/Time of Note Date/Time of Note DATE: 08/30/18 TIME: 14:21 Discharge Summary Admission/Discharge Info Admit Date/Time Aug 28, 2018 at 03:19 Discharge Date/Time Discharge Diagnosis This is a 67-year-old female sent from [facility] SNF where she was noted to be unresponsive and hypotensive. Patient was apparently found on the couch asleep without a blanket and she felt cold. She was managed as follows: 1. Acute encephalopathy: Resolved -Patient back to baseline, on pureed diet with aspiration precautions 2. Status post septic shock:Secondary to bilateral pneumonia , rule out aspiration and UTI: complete 2 weeks IV abx 3. Jim Pneumonia (HCAP): ? aspiration 4. Enterococcus UTI: abx per sensitivities 5. Acute hypoxia: improved -Likely secondary to underlying pneumonia, no PE on CTA. 6. Acute kidney disease: resolved - Likely prerenal etiology secondary to underlying hypoperfusion, sepsis, hypovolemia. 7. normocytic anemia, chronic: stable 8. Chronic hypothyroidism: TSH wnl, continue home dose of levothyroxine 9. vascular dementia: Chronic, home meds 10. behavioral disorder: -Patient has a history of conversion disorder, schizophrenia, anxiety, depression. Resume home medications as indicated 11. hypertension: good control on current regimen . Patient Condition: Stable Consults ID : Pawan Sanford MD . Hospital Course This is a 67-year-old female with chronic encephalopathy, nonverbal at baseline, will occasionally be able to say her name, but mainly moans and will occasionally also did not her head. It is my understanding that this is her baseline. She was sent to us from detention facility because of concerns of altered mentation, she was found to be unresponsive and hypotensive on the couch asleep without her blankets. She was also hypothermic when she first got here. She was managed for severe sepsis with septic shock secondary to bilateral healthcare associated pneumonia. This is likely secondary to chronic aspiration. He was also found to have enterococcus urinary tract infection. Sh yuni was somewhat hypoxic when she came in from the pneumonia but this has currently resolved. The patient is maintained on baseline 2 L of oxygen via nasal cannula and she was also found to have some mild renal insufficiency which is also resolved. She did have a little bit of systemic shock that responded very well to fluid therapy and blood pressure actually is requiring antihype rtensives for optimal control at this time. She has a history of chronic anemia, and her indices have remained stable, her thyroid hormone dosage with no change because her TSH remained normal. She was continued on her home medications for behavioral disorder and dementia, and she has done well and is stable for discharge at this time. The recommendation is to complete 2 weeks t herapy for healthcare associated pneumonia, she will continue this regimen over the detention unit. She will continue to be followed closely by the primary care doctor over the unit. Of note is that due to the patient's overall condition and poor quality of life, we attempted to reach family members to determine goals of care. However apparently there is no one who can make decisions for this patient, and the patient has no decision-making capacity. Based on this the nursing home social worker has begun proceedings to obtain a state appointed decision-maker. Patient remains full code. . Home Meds Reported Medications Donepezil* (Donepezil*) 5 Mg Tablet, 5 MG PO QHS, #30 TAB 08/28/18 Divalproex Sodium* (Depakote*) 500 Mg Tablet.dr, 500 MG PO BID, #120 TAB 08/28/18 Docusate Sodium* (Colace*) 100 Mg Capsule, 100 MG PO BID PRN for CONSTIPATION, #60 CAP 08/28/18 Atorvastatin Calcium (Atorvastatin Calcium) 10 Mg Tablet, 10 MG PO QHS, #30 TAB 08/28/18 Lorazepam* (Lorazepam*) 1 Mg Tablet, 1 MG PO BID PRN for ANXIETY, #30 TAB 08/28/18 Lactulose* (Lactulose*) 20 Gm/30 Ml Solution, 20 GM PO TID PRN for CONSTIPATION, ML 08/28/18 Trazodone Hcl* (Trazodone Hcl*) 100 Mg Tablet, 100 MG PO QHS, #30 TAB 08/28/18 Quetiapine Fumarate* (Seroquel*) 200 Mg Tablet, 200 MG PO HS, #30 TAB 08/28/18 Sennosides* (Senna Lax*) 8.6 Mg Tablet, 2 TAB PO QHS PRN for CONSTIPATION, TAB 08/28/18 Multivitamins* (Theragran*) 1 Tab Tab, 1 TAB PO DAILY, TAB 08/28/18 Polyethylene Glycol* (Miralax*) 17 Gm Powd.pack, 17 GM PO BID, #60 PACKET 08/28/18 Metoprolol Tartrate* (Lopressor*) 25 Mg Tab, 12.5 MG PO DAILY, #60 TAB HOLD IF SBP<115 OR HR<60 08/28/18 Levothyroxine Sodium* (Levothyroxine Sodium*) 50 Mcg Tablet, 50 MCG PO BEFORE BREAKFAST, #30 TAB 08/28/18 Levetiracetam* (Keppra*) 500 Mg Tablet, 500 MG PO BID, TAB 08/28/18 Gabapentin* (Gabapentin*) 400 Mg Capsule, 400 MG PO TID, #90 CAP 08/28/18 Phenylephrine HCl/[place] Butter* (Preparation H* Suppository) 1 Each Supp.rect, 1 EACH MN DAILY PRN for CONSTIPATION, SUPP.RECT 08/28/18 Mineral Oil* (Fleet* Mineral Oil Enema) 133 Ml Oil, 133 ML MN DAILY PRN for CONSTIPATION, ENEMA 08/28/18 Acetaminophen* (Acetaminophen*) 650 Mg Tablet, 650 MG PO DAILY PRN for PAIN AND OR ELEVATED TEMP, #30 TAB 08/28/18 Bisacodyl* (Bisacodyl*) 5 Mg Tablet.dr, 10 MG PO DAILY PRN for CONSTIPATION, TAB 08/28/18 Discontinued Reported Medications Quetiapine Fumarate* (Seroquel*) 200 Mg Tablet, 200 MG PO HS, #30 TAB 08/28/18 Follow-up Plan Patient will complete 2 weeks of antibiotic therapy at the detention facility and will be followed for clinical improvement by primary care doctor at the detention [facility]. . Primary Care Provider Angelita Stone MD Time spent on discharge: > 30 minutes Pending Labs Laboratory Tests Test 08/30/18 05:20 White Blood Count 3.1 10^3/ul (4.8-10.8) Red Blood Count 3.30 10^6/ul (4.20-5.40) Hemoglobin 10.7 g/dl (12.0-16.0) Hematocrit 30.8 % (37.0-47.0) Mean Corpuscular Volume 93.3 fl (82.0-101.0) Mean Corpuscular Hemoglobin 32.4 pg (29.0-33.0) Mean Corpuscular Hemoglobin Concent 34.7 g/dl (32.0-37.0) Red Cell Distribution Width 13.6 % (11.5-14.5) Platelet Count 363 10^3/UL (140-415) Mean Platelet Volume 10.5 fl (7.4-10.4) Immature Granulocytes % 0.300 % (0.001-0.429) Neutrophils % 52.7 % (39.0-77.0) Lymphocytes % 35.4 % (15.0-51.0) Monocytes % 11.0 % (0.0-11.0) Eosinophils % 0.0 % (0.0-7.0) Basophils % 0.6 % (0.0-2.0) Nucleated Red Blood Cells % 0.0 /100WBC (0.0-0.0) Immature Granulocytes # 0.010 10^3/ul (0.0-0.031) Neutrophils # 1.6 10^3/ul (1.6-7.5) Lymphocytes # 1.1 10^3/ul (0.8-2.9) Monocytes # 0.3 10^3/ul (0.3-0.9) Eosinophils # 0.0 10^3/ul (0.0-0.5) Basophils # 0.0 10^3/ul (0.0-0.1) Nucleated Red Blood Cells # 0.0 10^3/ul (0.0-0.0) Sodium Level 137 mmol/L (135-144) Potassium Level 4.0 mmol/L (3.5-5.1) Chloride Level 102 mmol/L (97-110) Carbon Dioxide Level 24 mmol/L (21-31) Anion Gap 11 (5-13) Blood Urea Nitrogen 9 mg/dl (7-20) Creatinine 0.60 mg/dl (0.44-1.00) Est Glomerular Filtrat Rate mL/min > 60 mL/min (>60) Glucose Level 107 mg/dl (70-220) Calcium Level 9.5 mg/dl (8.4-10.2) Magnesium Level 1.4 mg/dl (1.7-2.5) Valproic Acid (Depakene) Level 35 ug/ml (50-100) LAURA OLIVA Aug 30, 2018 14:26
--- NOTE | 2018-08-30 14:33 | CONS ---
Assessment/Plan Assessment/Plan Hospital Course (Demo Recall) Patient is awake noncommunicative she is in no distress afebrile WBC today 3.1 platelets 363 neutrophils 52.7 BUN 9 creatinine 0.60 Microbiology: Blood cultures negative, urine culture growing enterococcus species Indwelling: Piña Antimicrobials: Vancomycin, aztreonam Allergy: Penicillin, sulfa, clindamycin Physical examination: Well-developed chronically ill-appearing elderly woman who is in no distress. Head atraumatic normocephalic. Neck is supple. Chest rise symmetrical breath sounds diminished bases, heart S1-S2 abdomen soft bowel sounds present extremities without cyanosis Assessment: 1. Sepsis, present on admission 2. Pneumonia 3. Enterococcal UTI 4. Encephalopathy 5. Status post acute hypoxemia 6. Dementia Plan: Patient is stable continue present care continue on current antibiotics for 7 more days, aspiration precautions Consultation Date/Type/Reason Admit Date/Time Aug 28, 2018 at 03:19 Initial Consult Date Type of Consult id Date/Time of Note DATE: 08/30/18 TIME: 14:32 Exam/Review of Systems Exam Vitals Vital Signs Date Temp Pulse Resp B/P (MAP) Pulse Ox O2 O2 Flow FiO2 Time Delivery Rate 08/30/18 99.0 79 20 143/84 97 Nasal 11:13 (103) Cannula 08/30/18 2.0 08:00 Intake and Output 08/29/18 08/29/18 08/30/18 1414:59 22:59 06:59 IntakeIntake Total 200 ml 1145 ml 775 ml OutputOutput Total 2000 ml 2000 ml BalanceBalance 200 ml -855 ml -1225 ml Results Result Diagram: 08/30/18 0520 08/30/18 0520 Results 24hrs Laboratory Tests Test 08/30/18 05:20 White Blood Count 3.1 L Red Blood Count 3.30 L Hemoglobin 10.7 L Hematocrit 30.8 L Mean Corpuscular Volume 93.3 Mean Corpuscular Hemoglobin 32.4 Mean Corpuscular Hemoglobin Concent 34.7 Red Cell Distribution Width 13.6 Platelet Count 363 Mean Platelet Volume 10.5 H Immature Granulocytes % 0.300 Neutrophils % 52.7 Lymphocytes % 35.4 Monocytes % 11.0 Eosinophils % 0.0 Basophils % 0.6 Nucleated Red Blood Cells % 0.0 Immature Granulocytes # 0.010 Neutrophils # 1.6 Lymphocytes # 1.1 Monocytes # 0.3 Eosinophils # 0.0 Basophils # 0.0 Nucleated Red Blood Cells # 0.0 Sodium Level 137 Potassium Level 4.0 Chloride Level 102 Carbon Dioxide Level 24 Anion Gap 11 Blood Urea Nitrogen 9 Creatinine 0.60 Est Glomerular Filtrat Rate mL/min > 60 Glucose Level 107 Calcium Level 9.5 Magnesium Level 1.4 L Valproic Acid (Depakene) Level 35 L Medications Medication Current Medications Sodium Chloride 1,000 ml @ 75 mls/hr [id number] IV Last administered on 08/29/18at 22:11; Admin Dose 75 MLS/HR; Start 08/28/18 at 03:39 IV Flush (NS 3 ml) 3 ml PER PROTOCOL IV ; Start 08/28/18 at 04:00 Ondansetron HCl (Zofran Inj) 4 mg Q4H PRN IV NAUSEA Last administered on 08/28/18 14:14; Admin Dose 4 MG; Start 08/28/18 at 04:00 Acetaminophen (Tylenol Tab) 650 mg Q6H PRN PO FEVER GREATER THAN 100.6; Start 08/28/18 at 04:00 Bisacodyl (Dulcolax) 5 mg DAILY PRN PO CONSTIPATION; Start 08/28/18 at 04:00 Vancomycin HCl (Vanco Iv Per Pharmacy) VANCOMYCIN PER PHARMACY PER PROTOCOL XX ; Start 08/28/18 at 05:00 Aztreonam 50 ml @ 100 mls/hr Q12 IVPB Last administered on 08/30/18 10:24; Admin Dose 100 MLS/HR; Start 08/28/18 at 13:00 Levetiracetam 100 ml @ 400 mls/hr Q12 IVPB Last administered on 08/30/18 08:54; Admin Dose 400 MLS/HR; Start 08/28/18 at 09:00 Heparin Sodium (Porcine) (Heparin (5000 Units/1ml)) 5,000 unit Q8 SC Last administered on 08/30/18 14:27; Admin Dose 5,000 UNIT; Start 08/28/18 at 06:00 Haloperidol (Haldol) 3 mg Q6H PRN IM ANXIETY Last administered on 08/29/18 17:37; Admin Dose 3 MG; Start 08/28/18 at 15:00 Docusate Sodium (Colace) 100 mg Q12H PO Last administered on 08/30/18 08:53; Admin Dose 100 MG; Start 08/28/18 at 21:00 Quetiapine Fumarate (Seroquel) 200 mg HS PO Last administered on 08/29/18 22:03; Admin Dose 200 MG; Start 08/28/18 at 21:00 Trazodone HCl (Desyrel) 100 mg HS PO Last administered on 08/29/18 22:03; Admin Dose 100 MG; Start 08/28/18 at 21:00 Atorvastatin Calcium (Lipitor) 10 mg QHS PO Last administered on 08/29/18 22:03; Admin Dose 10 MG; Start 08/29/18 at 21:00 Divalproex Sodium (Depakote) 500 mg BID PO Last administered on 08/30/18 08:53; Admin Dose 500 MG; Start 08/29/18 at 21:00 Donepezil HCl (Aricept) 5 mg QHS PO Last administered on 08/29/18 22:03; Admin Dose 5 MG; Start 08/29/18 at 21:00 Levothyroxine Sodium (Synthroid) 50 mcg BEFORE BREAKFAST PO Last administered on 08/30/18 08:53; Admin Dose 50 MCG; Start 08/30/18 at 07:00 Metoprolol Tartrate (Lopressor) 12.5 mg DAILY PO Last administered on 08/30/18 08:54; Admin Dose 12.5 MG; Start 08/30/18 at 09:00 Multivitamins Therapeutic (Theragran) 1 tab DAILY PO Last administered on 08/30/18 08:53; Admin Dose 1 TAB; Start 08/30/18 at 09:00 Polyethylene Glycol (Miralax) 17 gm DAILY PO Last administered on 08/30/18 08:54; Admin Dose 17 GM; Start 08/30/18 at 09:00 Morphine Sulfate (morphine) 1 mg Q4H PRN IV SEVERE PAIN LEVEL 7-10 Last administered on 08/29/18 17:04; Admin Dose 1 MG; Start 08/29/18 at 17:00 Vancomycin HCl 100 ml @ 100 mls/hr Q12H IVPB ; Start 08/30/18 at 17:00 Miscellaneous Information (*Rx Drug Level Order Reminder*) VANCOMYCIN TROUGH AT 1600 ONCE ONCE XX ; Start 08/31/18 at 16:00; Stop 08/31/18 at 16:01 Magnesium Sulfate 50 ml @ 25 mls/hr ONCE ONCE IVPB Last administered on at 14:09; Admin Dose 25 MLS/HR; Start 08/30/18 at 13:30; Stop 08/30/18 at 15:29 MARKOS BRADY NP Aug 30, 2018 14:33
--- NOTE | 2018-08-30 17:46 | NUR ---
EOSS Patient stable, A/Ox1, non-verbal, non-communicative, less anxious and agitated than yesterday, administered haldol 3mg x1, no pain medication indicated today, tolerating diet, continuing with IV fluids, antibiotics, and repleted magnesium of 1.4 again today, turning Q2H, skin intact, bedrest, patient pending transfer back, to SNF. Will endorse care to lead ramp service man.
[2018-08-30] MEDS: ATORVASTATIN 10 MG TAB PO SCH (22:18)
[2018-08-30] MEDS: DONEPEZIL 5 MG TAB PO SCH (22:18)
[2018-08-30] MEDS: QUETIAPINE 100 MG TAB PO SCH (22:18)
[2018-08-30] MEDS: traZODone 100 MG TAB PO SCH (22:21)
[2018-08-31 00:30] VITALS: BP 129/78; PULSE 74; RESP 16
[2018-08-31] MEDS: SOD CHLORIDE 0.9% 1,000 ML IV SCH (00:57)
[2018-08-31 04:28] VITALS: BP 126/75; PULSE 77; RESP 17
[2018-08-31] MEDS: VANCOMYCIN 500 MG (PMX) 100 ML IVPB SCH ×2 (05:55→16:46)
[2018-08-31] MEDS: LEVOTHYROXINE 50 MCG TAB PO SCH (05:56)
[2018-08-31] MEDS: HEPARIN 5,000 UNIT/1 ML VIAL SC SCH ×2 (05:58→14:21)
--- NOTE | 2018-08-31 06:22 | NUR ---
RN NOTES: PT SLEPT MOST OF THE TIME DURING NIGHT.WOKE UP BEFORE MIDNIGHT, TRIED TO GET OUT OF BED. ASSISTED PT BACK IN BED, PUT BED ALARM ON FOR SAFETY. VS STABLE. WILL F/U WITH AM SHIFT.
[2018-08-31 07:25] VITALS: BP 140/82; PULSE 69; RESP 18
--- NOTE | 2018-08-31 07:46 | NUR ---
RN NOTES: REPORT GIVEN TO DARSHANA HARDEN FINISHER SCREWDOWN IN 2E. PT IS GOING TO ROOM 2265. PT IS FROM [facility]. F/U WITH 2E TO D/C BACK TO [facility] WHEN CUSTOMS AND IMMIGRATION OFFICER COMES ORDERS. Addendum: 08/31/18 at 0756 by HARMEET MARTINEZ RN HANDED TO MELANIE/CHARGE AM NURSE 6W, PT'S BELONGINGS INCLUDED NIGHT GOWN AND TENNIS SHOES, PLACED IN PT'S BELONGINGS BAG. PT LEFT TO ROOM 2265 ALREADY. TRANSPORTER WILL BRING TO 2265 LATER TODAY.
[2018-08-31 09:08] VITALS: BP 149/72; PULSE 69; RESP 19
[2018-08-31] MEDS: LEVETIRACETAM 500 MG (PMX) 100 ML IVPB SCH (09:24)
[2018-08-31] MEDS: POLYETHYLENE GLYCOL 17 GM PACKET PO SCH (09:39)
[2018-08-31] MEDS: DOCUSATE SODIUM 100 MG CAP PO SCH ×2 (09:39→20:03)
[2018-08-31] MEDS: METOPROLOL 25 MG TAB PO SCH (09:39)
[2018-08-31] MEDS: MULTIVITAMINS THERAPEUTIC TAB PO SCH (09:39)
[2018-08-31] MEDS: DIVALPROEX (EC) 500 MG TAB PO SCH ×2 (09:39→20:02)
[2018-08-31] MEDS: AZTREONAM 1 GM/NS (PMX) 50 ML IVPB SCH ×2 (09:45→19:00)
--- NOTE | 2018-08-31 12:25 | PDOCDIS ---
Discharge Instructions CONDITION [id number] Patient Condition: [id number] Stable HOME CARE INSTRUCTIONS: [id number] Your diet recommendation is: [id number] PUREED FOLLOW UP/APPOINTMENTS Follow-up Plan Patient will complete 2 weeks of antibiotic therapy at the assisted facility and will be followed for clinical improvement by primary care doctor at the assisted facility. . ALEN NUGENT NP Aug 31, 2018 12:25
[2018-08-31] MEDS ORDERED: VANC1VIA16 IV (12:34)
[2018-08-31] MEDS ORDERED: AZTR1VIA2 IV* (12:34)
--- NOTE | 2018-08-31 12:37 | DS ---
Date/Time of Note Date/Time of Note DATE: 08/31/18 TIME: 12:34 Discharge Summary Admission/Discharge Info Admit Date/Time Aug 28, 2018 at 03:19 Discharge Date/Time Discharge Diagnosis 1. Acute encephalopathy: Resolved -Patient back to baseline, on pureed diet with aspiration precautions 2. Status post septic shock:Secondary to bilateral pneumonia , rule out aspiration and UTI: complete 2 weeks IV abx 3. Jim Pneumonia (HCAP): ? aspiration 4. Enterococcus UTI: abx per sensitivities 5. Acute hypoxia: improved -Likely secondary to underlying pneumonia, no PE on CTA. 6. Acute kidney disease: resolved - Likely prerenal etiology secondary to underlying hypoperfusion, sepsis, hypovolemia. 7. normocytic anemia, chronic: stable 8. Chronic hypothyroidism: TSH wnl, continue home dose of levothyroxine 9. vascular dementia: Chronic, home meds 10. behavioral disorder: -Patient has a history of conversion disorder, schizophrenia, anxiety, depression. Resume home medications as indicated 11. hypertension: good control on current regimen . Patient Condition: Stable Consults ,ID Procedures 08/28/2007. CT angiogram of the chest with contrast. IMPRESSION: 1. No central pulmonary emboli. No right heart strain/failure. Prominent central pulmonary arteries and rule out pulmonary arterial hypertension. 2. No aortic aneurysm or dissection. 3. Bilateral consolidations as described above may all be due to atelectasis though superimposed acute infiltrates cannot be excluded. 4. No evidence of thoracic effusions, pneumothorax or lymphadenopathy. 5. Status post cholecystectomy. Dilated central intra and extrahepatic biliary ductal dilation may all be postsurgical. Obstructing lesion not demonstrated. Recommend clinical correlation. 08/28/2018. Brain CT without contrast IMPRESSION: 1. No acute intracranial hemorrhage, transcortical infarction or mass effect. 2. Mild intracranial atherosclerosis and chronic small vessel ischemic ch anges. 3. Moderate cerebral and mild cerebellar volume loss. 08/28/2018. Chest x-ray. IMPRESSION: Low lung volumes. Bibasilar infiltrates. Hospital Course This is a 67-year-old female with chronic encephalopathy, nonverbal at baseline, will occasionally be able to say her name, but mainly moans and will occasionally also did not her head. It is my understanding that this is her baseline. She was [facility] because of concerns of altered mentation, she was found to be unresponsive and hypotensive on the couch asleep without her blankets. She was also hypothermic when she first got here. She was managed for severe sepsis with septic shock secondary to bilateral healthcare associated pneumonia. This is likely secondary to chronic aspiration. He was also found to have enterococcus urinary tract infection. She was somewhat hypoxic when she came in from the pneumonia but this has currently resolved. The patient is maintained on baseline 2 L of oxygen via nasal cannula and she was also found to have some mild renal insufficiency which is also resolved. She did have a little bit of systemic shock that responded very well to fluid therapy and blood pressure actually is requiring antihypert ensives for optimal control at this time. She has a history of chronic anemia, and her indices have remained stable, her thyroid hormone dosage with no change because her TSH remained normal. She was continued on her home medications for behavioral disorder and dementia, and she has done well and is stable for discharge at this time. The recommendation is to complete 7 more days abx therapy for healthcare associated pneumonia, she will continue this regimen over the [facility] unit. She will continue to be followed closely by the primary care doctor over the unit. Of note is that due to the patient's overall condition and poor quality of life, we attempted to reach family members to determine goals of care. However apparently there is no one who can make decisions for this patient, and the patient has no decision-making capacity. Based on this the social sciences chair has begun proceedings to obtain a state appointed decision-maker. Patient remains full code. Case discussed with Dr. Ceja. Home Meds Reported Medications Donepezil* (Donepezil*) 5 Mg Tablet, 5 MG PO QHS, #30 TAB 08/28/18 Divalproex Sodium* (Depakote*) 500 Mg Tablet., 500 MG PO BID, #120 TAB 08/28/18 Docusate Sodium* (Colace*) 100 Mg Capsule, 100 MG PO BID PRN for CONSTIPATION, #60 CAP 08/28/18 Atorvastatin Calcium (Atorvastatin Calcium) 10 Mg Tablet, 10 MG PO QHS, #30 TAB 08/28/18 Lorazepam* (Lorazepam*) 1 Mg Tablet, 1 MG PO BID PRN for ANXIETY, #30 TAB 08/28/18 Lactulose* (Lactulose*) 20 Gm/30 Ml Solution, 20 GM PO TID PRN for CONSTIPATION, ML 08/28/18 Trazodone Hcl* (Trazodone Hcl*) 100 Mg Tablet, 100 MG PO QHS, #30 TAB 08/28/18 Quetiapine Fumarate* (Seroquel*) 200 Mg Tablet, 200 MG PO HS, #30 TAB 08/28/18 Sennosides* (Senna Lax*) 8.6 Mg Tablet, 2 TAB PO QHS PRN for CONSTIPATION, TAB 08/28/18 Multivitamins* (Theragran*) 1 Tab Tab, 1 TAB PO DAILY, TAB 08/28/18 Polyethylene Glycol* (Miralax*) 17 Gm Powd.pack, 17 GM PO BID, #60 PACKET 08/28/18 Metoprolol Tartrate* (Lopressor*) 25 Mg Tab, 12.5 MG PO DAILY, #60 TAB HOLD IF SBP<115 OR HR<60 08/28/18 Levothyroxine Sodium* (Levothyroxine Sodium*) 50 Mcg Tablet, 50 MCG PO BEFORE BREAKFAST, #30 TAB 08/28/18 Levetiracetam* (Keppra*) 500 Mg Tablet, 500 MG PO BID, TAB 08/28/18 Gabapentin* (Gabapentin*) 400 Mg Capsule, 400 MG PO TID, #90 CAP 08/28/18 Phenylephrine HCl/[place] Butter* (Preparation H* Suppository) 1 Each Supp.rect, 1 EACH AR DAILY PRN for CONSTIPATION, SUPP.RECT 08/28/18 Mineral Oil* (Fleet* Mineral Oil Enema) 133 Ml Oil, 133 ML AR DAILY PRN for CONSTIPATION, ENEMA 08/28/18 Acetaminophen* (Acetaminophen*) 650 Mg Tablet, 650 MG PO DAILY PRN for PAIN AND OR ELEVATED TEMP, #30 TAB 08/28/18 Bisacodyl* (Bisacodyl*) 5 Mg Tablet.dr, 10 MG PO DAILY PRN for CONSTIPATION, TAB 08/28/18 Discontinued Reported Medications Quetiapine Fumarate* (Seroquel*) 200 Mg Tablet, 200 MG PO HS, #30 TAB 08/28/18 Follow-up Plan Patient will complete 2 weeks of antibiotic therapy at the [facility] and will be followed for clinical improvement by primary care doctor at the [facility]. . Primary Care Provider MD RAFFI Vergara VIDYA V. FOOD CONCESSION MANAGER Aug 31, 2018 12:37
[2018-08-31 14:00] VITALS: BP 109/71; PULSE 73; RESP 18
--- NOTE | 2018-08-31 14:58 | NUR ---
Discharge arrangements; Followed up with [facility] , spoke with Alyssa and expecting Patient back this weekend with room 1C reserved. Set up ambulance transportation with [facility] , set on will call, with trip# [phone]. Will complete IV antibiotics today and continue plan of care at SNF.
[2018-08-31] MEDS ORDERED: morphine LIQ (10 MG/5 ML) CUP PO PRN (15:30)
--- NOTE | 2018-08-31 17:06 | NUR ---
VANCO PER RX PROTOCOL: DAY # 4 S/O: TMAX = 99.1 VANCO TR = 6.8 A/P: VANCO TR LEVEL NOT THERAPEUTIC (-) BECAUSE PM DOSE ON 08/29 WAS NOT GIVEN. CONTINUE VANCO 500MG Q 12HR FOR NOW.
--- NOTE | 2018-08-31 18:14 | NUR ---
rn notes patient remains in bed, no s/s of pain and discomfort noted, turned and repositioned as scheduled. skin is dry and intact. all due medicine given and all needs attended to. 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 okay to send patient with Piña cath and D/C after antibiotics. med reconcile papers in discharge packet. will endorse next shift. will continue to monitor for remaining shift.
--- NOTE | 2018-08-31 19:00 | NUR ---
Patient on bed, calm and comfortable. unable to make needs known. alert x1. Patient is ready for discharge per AM RN, she gave report to [facility] RN Airam. Patient is on 2 LPM via nasal cannula, O2 saturation WNL. Kept clean, dry, safe and comfortable on bed, IV intact, F/C intact. Patient will continue IV ATB at facility.
[2018-08-31] MEDS: DONEPEZIL 5 MG TAB PO SCH (20:03)
[2018-08-31] MEDS: QUETIAPINE 100 MG TAB PO SCH (20:03)
[2018-08-31] MEDS: ATORVASTATIN 10 MG TAB PO SCH (20:04)
[2018-08-31] MEDS: traZODone 100 MG TAB PO SCH (20:04)
[2018-08-31 21:04] VITALS: BP 134/76; PULSE 70; RESP 16
--- NOTE | 2018-08-31 21:30 | NUR ---
Patient picked up by transport, no sob, no fever, no chills, no nausea, no vomiting noted at this time.
--- NOTE | 2018-08-31 22:15 | CONS ---
Assessment/Plan Assessment/Plan Hospital Course (Demo Recall) 1330 Patient is awake, eating with assistance, no fevers overnight Microbiology: Blood cultures negative, urine culture grew enterococcus species Indwelling: Piña Antimicrobials: Vancomycin, aztreonam Allergy: Penicillin, sulfa, clindamycin Physical examination: Well-developed chronically ill-appearing elderly woman who is in no distress. Head atraumatic normocephalic. Neck is supple. Chest rise symmetrical breath sounds diminished bases, heart S1-S2 abdomen soft bowel sounds present extremities without cyanosis Assessment: 1. Resolving sepsis, present on admission 2. Pneumonia 3. Enterococcal UTI 4. Encephalopathy 5. Status post acute hypoxemia 6. Dementia Plan: Patient is doing much better, continue present care continue on current antibiotics for 6 more days Consultation Date/Type/Reason Admit Date/Time Aug 28, 2018 at 03:19 Initial Consult Date Type of Consult id Date/Time of Note DATE: 08/31/18 TIME: 22:14 Exam/Review of Systems Exam Vitals Vital Signs Date Temp Pulse Resp B/P (MAP) Pulse Ox O2 O2 Flow FiO2 Time Delivery Rate 08/31/18 98.7 70 16 134/76 96 21:04 (95) 08/31/18 Nasal 2.0 21:00 Cannula Intake and Output 08/30/18 08/30/18 08/31/18 1515:00 23:00 07:00 IntakeIntake Total 150 ml 630 ml 250 ml OutputOutput Total 1200 ml 1100 ml BalanceBalance 150 ml -570 ml -850 ml Results Result Diagram: 08/30/18 0520 08/30/18 0520 Results 24hrs Laboratory Tests Test 08/31/18 15:48 Vancomycin Level Trough 6.8 L MARKOS BRADY NP Aug 31, 2018 22:15
--- NOTE | 2018-09-16 21:56 | ERD ---
ER Documentation Chief Complaint Chief Complaint IESHA HANEY from [facility],low BP,low O2 sat per caregiver's report HPI This is a 67-year-old female brought in from longterm facility for low blood pressure low O2 sat per caregivers report. Patient himself cannot provide any history. History is per EMS when she shelter transfer sheet. Apparently she was in her normal state of health until they checked her earlier this evening and noted a low O2 saturations and the low blood pressure. ROS All systems reviewed and are negative except as per history of present illness. 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 SURVEY OPERATIONS DIRECTOR 08/31/18 Reported Medications Donepezil* (Donepezil*) 5 Mg Tablet, 5 MG PO QHS, #30 TAB 08/28/18 Divalproex Sodium* (Depakote*) 500 Mg Tablet.dr, 500 MG PO BID, #120 TAB 08/28/18 Docusate Sodium* (Colace*) 100 Mg Capsule, 100 MG PO BID PRN for CONSTIPATION, #60 CAP 08/28/18 Atorvastatin Calcium (Atorvastatin Calcium) 10 Mg Tablet, 10 MG PO QHS, #30 TAB 08/28/18 Lorazepam* (Lorazepam*) 1 Mg Tablet, 1 MG PO BID PRN for ANXIETY, #30 TAB 08/28/18 Lactulose* (Lactulose*) 20 Gm/30 Ml Solution, 20 GM PO TID PRN for CONSTIPATION, ML 08/28/18 Trazodone Hcl* (Trazodone Hcl*) 100 Mg Tablet, 100 MG PO QHS, #30 TAB 08/28/18 Quetiapine Fumarate* (Seroquel*) 200 Mg Tablet, 200 MG PO HS, #30 TAB 08/28/18 Sennosides* (Senna Lax*) 8.6 Mg Tablet, 2 TAB PO QHS PRN for CONSTIPATION, TAB 08/28/18 Multivitamins* (Theragran*) 1 Tab Tab, 1 TAB PO DAILY, TAB 08/28/18 Polyethylene Glycol* (Miralax*) 17 Gm Powd.pack, 17 GM PO BID, #60 PACKET 08/28/18 Metoprolol Tartrate* (Lopressor*) 25 Mg Tab, 12.5 MG PO DAILY, #60 TAB HOLD IF SBP<115 OR HR<60 08/28/18 Levothyroxine Sodium* (Levothyroxine Sodium*) 50 Mcg Tablet, 50 MCG PO BEFORE BREAKFAST, #30 TAB 08/28/18 Levetiracetam* (Keppra*) 500 Mg Tablet, 500 MG PO BID, TAB 08/28/18 Gabapentin* (Gabapentin*) 400 Mg Capsule, 400 MG PO TID, #90 CAP 08/28/18 Phenylephrine HCl/[place] Butter* (Preparation H* Suppository) 1 Each Supp.rect, 1 EACH [place] DAILY PRN for CONSTIPATION, SUPP.RECT 08/28/18 Mineral Oil* (Fleet* Mineral Oil Enema) 133 Ml Oil, 133 ML [place] DAILY PRN for CONSTIPATION, ENEMA 08/28/18 Acetaminophen* (Acetaminophen*) 650 Mg Tablet, 650 MG PO DAILY PRN for PAIN AND OR ELEVATED TEMP, #30 TAB 08/28/18 Bisacodyl* (Bisacodyl*) 5 Mg Tablet.dr, 10 MG PO DAILY PRN for CONSTIPATION, TAB 08/28/18 Allergies Allergies: Coded Allergies: Penicillins (Verified Allergy, Unknown, 08/28/18) Sulfa (Sulfonamide Antibiotics) (Verified Allergy, Unknown, 08/28/18) clindamycin (Verified Allergy, Unknown, 08/28/18) ketorolac (Verified Allergy, Unknown, 08/28/18) lactase (Verified Allergy, Unknown, 08/28/18) Uncoded Allergies: TRYPTOPHAN (Allergy, Unknown, 08/28/18) PMhx/Soc Hx Respiratory Disorders: No Hx Cardiac Disorders: No Hx Psychiatric Problems: Yes (depression, anxiety, schizo, ) Hx Miscellaneous Medical Probl: Yes (HTN , BEHAVIORAL DISORDER ANXIETY, DEPRESSION .) Hx Alcohol Use: No Hx Substance Use: No Hx Tobacco Use: No Smoking Status: Unknown if ever smoked Physical Exam Physical Exam Const: No acute distress Head: Atraumatic Eyes: Normal Conjunctiva ENT: Normal External Ears, Nose and Mouth. Neck: Full range of motion. No meningismus. Resp: Clear to auscultation bilaterally Cardio: Regular rate and rhythm, no murmurs Abd: Soft, non tender, non distended. Normal bowel sounds Skin: No petechiae or rashes Back: No midline or flank tenderness Ext: No cyanosis, or edema Neur: Awake and alert Psych: Normal Mood and Affect Results 24 hrs Laboratory Tests Test 08/28/18 01:55 08/28/18 01:58 08/28/18 02:06 08/28/18 02:07 Bedside Glucose 123 mg/dL POC Venous 1.8 mmol/L Lactate Urine Color YELLOW Urine Clarity SLIGHTLY CLOUDY Urine pH 5.0 Urine Specific 1.023 [place] Urine Ketones NEGATIVE mg/dL Urine Nitrite NEGATIVE mg/dL Urine Bilirubin NEGATIVE mg/dL Urine NEGATIVE mg/dL Urobilinogen Urine Leukocyte NEGATIVE Marika/ul Esterase Urine Microscopic 1 /HPF RBC Urine Microscopic 1 /HPF WBC Urine Bacteria FEW /HPF Urine Mucus FEW /HPF Urine Hemoglobin NEGATIVE mg/dL Urine Glucose NEGATIVE mg/dL Urine Total 1+ mg/dl Protein White Blood Count 6.7 10^3/ul Red Blood Count 3.35 10^6/ul Hemoglobin 11.0 g/dl Hematocrit 32.8 % Mean Corpuscular 97.9 fl Volume Mean Corpuscular 32.8 pg Hemoglobin Mean Corpuscular 33.5 g/dl Hemoglobin Concen t Red Cell 14.5 % Distribution Width Platelet Count 261 10^3/UL Mean Platelet 10.5 fl Volume Immature 0.700 % Granulocytes % Neutrophils % 40.5 % Lymphocytes % 42.7 % Monocytes % 14.8 % Eosinophils % 0.9 % Basophils % 0.4 % Nucleated Red 0.0 /100WBC Blood Cells % Immature 0.050 10^3/ul Granulocytes # Neutrophils # 2.7 10^3/ul Lymphocytes # 2.9 10^3/ul Monocytes # 1.0 10^3/ul Eosinophils # 0.1 10^3/ul Basophils # 0.0 10^3/ul Nucleated Red 0.0 10^3/ul Blood Cells # Prothrombin Time 13.2 Sec Prothrombin Time 1.0 Ratio INR International 0.99 Normalized Ratio Activated 33.3 Sec Partial Thrombopl ast Time Sodium Level 135 mmol/L Potassium Level 4.8 mmol/L Chloride Level 99 mmol/L Carbon Dioxide 22 mmol/L Level Anion Gap 14 Blood Urea 18 mg/dl Nitrogen Creatinine 1.28 mg/dl Est Glomerular 42 mL/min Filtrat Rate mL/min Glucose Level 117 mg/dl Calcium Level 9.3 mg/dl Total Bilirubin 0.0 mg/dl Direct Bilirubin 0.00 mg/dl Indirect 0.0 mg/dl Bilirubin Aspartate Amino 34 IU/L Transf (AST/SGOT) Alanine 11 IU/L Aminotransferase (ALT/SGPT) Alkaline 79 IU/L Phosphatase Troponin I < 0.012 ng/ml Total Protein 7.8 g/dl Albumin 3.9 g/dl Globulin 3.90 g/dl Albumin/Globulin 1.00 Ratio Current Medications Medications Dose Sig/Ramya Start Time Status Last (Trade) Ordered Route PRN Stop Time Admin Dose Reason Admin Sodium 1,000 ml @ Q1H ONCE 08/28/18 DC 08/28/18 Chloride 1,000 mls/hr IV 02:00 02:19 08/28/18 02:59 Vancomycin 250 ml @ ONCE STAT 08/28/18 DC 08/28/18 HCl 125 mls/hr IVPB 02:45 03:59 08/28/18 04:44 Aztreonam 50 ml @ ONCE STAT 08/28/18 DC 08/28/18 100 mls/hr IVPB 02:45 03:16 08/28/18 03:14 Procedures/MDM EKG: Rate/Rhythm: [Normal Sinus Rhythm] QRS, ST, T-waves: [No changes consistent w/ acute ischemia] Impression: [No evidence of ischemia or arrhythmia] Chest X-ray 1V Interpreted by me: Soft Tissue: No acute abnormalities Bones: No acute abnormalities Mediastinum/Cardiac Silhouette/Lungs: [Bibasilar infiltrate medical decision making: This is a 67-year-old female bibasilar pneumonia. Start antibiotics post cultures. Lactic acid is negative and blood pressures been stable. Patient will be admitted To the floor to Dr. Baker. Departure Diagnosis: Primary Impression: Pneumonia Pneumonia type: due to unspecified organism Laterality: bilateral Lung location: lower lobe of lung Qualified Codes: J18.1 - Lobar pneumonia, unspecified organism Condition: Serious Patient Instructions: Sepsis, Aspiration Pneumonia ODETTE CARPENTER Sep 16, 2018 21:56
== END 2018-08-31 21:30 | DRG 871 ==
LOC: E/R 01:31 → 6WM 03:19 → CANRESERV 03:51 → EDBEDREQTM 04:03 → EDBEDREQSVC 04:03 → 6WM 08-29 02:26 → PP2 08-31 07:32
PROVIDERS: ADMIT Family Medicine; ATTEND Family Medicine
DX: A41.9 Sepsis, unspecified organism (principal); R65.21 Severe sepsis with septic shock; J18.9 Pneumonia, unspecified organism; N39.0 Urinary tract infection, site not specified; N17.9 Acute kidney failure, unspecified; G93.40 Encephalopathy, unspecified; Y95 Nosocomial condition; B95.2 Enterococcus as the cause of diseases classified elsewhere; F20.9 Schizophrenia, unspecified; F01.50 Vascular dementia, unspecified severity, without behavioral disturbance, psychotic disturbance, mood disturbance, and anxiety; E03.9 Hypothyroidism, unspecified; D64.9 Anemia, unspecified; R09.02 Hypoxemia; I10 Essential (primary) hypertension; Z23 Encounter for immunization
CPT/HCPCS: 36415; 70450; 71045; 71275; 80048; 80053; 80061; 80164; 80202; 81001; 82962; 83036; 83605; 83735; 84443; 84484; 85025; 85378; 85610; 85730; 87040; 87086; 90686; 92610; 93005; 96374; 97161; G0008; J1630; J1644; J1953; J2270; J2405; J3370; J3475; J7030; Q9967

== ENCOUNTER 2018-10-06 06:24 | Inpatient (IN) | payer MEDICARE, MEDICAID ==
[~2018-10-06] VITALS: Ht 170.2 cm; Wt 68.2 kg
[2018-10-06] VITALS (55 sets, daily range): BP systolic 79–122; BP diastolic 54–80; PULSE 77–111; RESP 14–31; Ht 170.2 cm; Wt 68.2 kg
[~2018-10-06 06:24] MED LIST: ACET-2047 PO; ATOR10TA65 PO; AZTR1VIA2 IV*; BISA5TAB6 PO; DIVA-48 PO; DOCU-144 PO; DONE5TAB7 PO; GABA400C14 PO; LACT20SO2 PO; LEVE-5 PO; LEVO50TA7 PO; LORA1TAB PO; METO-448 PO; MINE133E23 PR; MULTI PO; PHEN1SUP80 PR; POLY17PO6 PO; QUET200T PO; SENN-120 PO; TRA100 PO; VANC1VIA16 IV
[2018-10-06] MEDS ORDERED: ACETAMINOPHEN 650 MG SUPP PR STA (06:26)
[2018-10-06] MEDS ORDERED: CEFEPIME 2GM/50 ML (PMX) 50 ML IVPB STA (06:26)
[2018-10-06] MEDS ORDERED: SODIUM CHLORIDE 0.9% 1L BAG IV* STA (06:26)
[2018-10-06] MEDS ORDERED: VANCOMYCIN 1 GM (PMX) 250 ML IVPB ONE (06:30)
[2018-10-06] MEDS ORDERED: DILTIAZEM 25 MG INJ ONE (06:32)
[2018-10-06] MEDS ORDERED: DILTIAZEM-D5W 125MG/125ML DRIP 125 ML IV STA (06:35)
[2018-10-06] MEDS ORDERED: MAGNESIUM SULFATE 2 GM/50 ML 50 ML IVPB STA (06:35)
[2018-10-06] MEDS ORDERED: DILTIAZEM 25 MG INJ IV STA (06:35)
[2018-10-06] MEDS ORDERED: NORepinephrine 8MG/250 ML (PMX 250 ML ONE (06:40)
[2018-10-06] MEDS ORDERED: ROCURONIUM 50 MG INJ ONE (07:00)
[2018-10-06] MEDS ORDERED: ETOMIDATE 20 MG INJ ONE (07:00)
[2018-10-06] MEDS ORDERED: NORepinephrine 8MG/250 ML (PMX 250 ML IV STA (07:26)
--- NOTE | 2018-10-06 08:06 | ERD ---
ER Documentation Chief Complaint Chief Complaint FEVER WITH SOB FROM [facility] HPI 67-year-old female who has chronic encephalopathy, recent hospitalization in August for severe sepsis and pneumonia presents with hypotension, fever, A. fib with RVR. The patient cannot provide a history given her chronic mental state. The patient has an advanced directive that states full code based on limited documentation from retirement facility. Remainder of HPI is limited for this reason. ROS Unable to obtain given above Medications Home Meds Active Scripts Vancomycin Hcl (Vancocin) 1 Gm Soln, 500 MG IV Q12 for 7 Days, VIAL 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 ROOMS DIRECTOR 08/31/18 Aztreonam (AZTREONAM) 1 Gm Vial, 1 GM IV* Q12 for 7 Days, VIAL 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 ROOMS DIRECTOR 08/31/18 Reported Medications Donepezil* (Donepezil*) 5 Mg Tablet, 5 MG PO QHS, #30 TAB 08/28/18 Divalproex Sodium* (Depakote*) 500 Mg Tablet.dr, 500 MG PO BID, #120 TAB 08/28/18 Docusate Sodium* (Colace*) 100 Mg Capsule, 100 MG PO BID PRN for CONSTIPATION, #60 CAP 08/28/18 Atorvastatin Calcium (Atorvastatin Calcium) 10 Mg Tablet, 10 MG PO QHS, #30 TAB 08/28/18 Lorazepam* (Lorazepam*) 1 Mg Tablet, 1 MG PO BID PRN for ANXIETY, #30 TAB 08/28/18 Lactulose* (Lactulose*) 20 Gm/30 Ml Solution, 20 GM PO TID PRN for CONSTIPATION, ML 08/28/18 Trazodone Hcl* (Trazodone Hcl*) 100 Mg Tablet, 100 MG PO QHS, #30 TAB 08/28/18 Quetiapine Fumarate* (Seroquel*) 200 Mg Tablet, 200 MG PO HS, #30 TAB 08/28/18 Sennosides* (Senna Lax*) 8.6 Mg Tablet, 2 TAB PO QHS PRN for CONSTIPATION, TAB 08/28/18 Multivitamins* (Theragran*) 1 Tab Tab, 1 TAB PO DAILY, TAB 08/28/18 Polyethylene Glycol* (Miralax*) 17 Gm Powd.pack, 17 GM PO BID, #60 PACKET 08/28/18 Metoprolol Tartrate* (Lopressor*) 25 Mg Tab, 12.5 MG PO DAILY, #60 TAB HOLD IF SBP<115 OR HR<60 08/28/18 Levothyroxine Sodium* (Levothyroxine Sodium*) 50 Mcg Tablet, 50 MCG PO BEFORE BREAKFAST, #30 TAB 08/28/18 Levetiracetam* (Keppra*) 500 Mg Tablet, 500 MG PO BID, TAB 08/28/18 Gabapentin* (Gabapentin*) 400 Mg Capsule, 400 MG PO TID, #90 CAP 08/28/18 Phenylephrine HCl/[place] Butter* (Preparation H* Suppository) 1 Each Supp.rect, 1 EACH OK DAILY PRN for CONSTIPATION, SUPP.RECT 08/28/18 Mineral Oil* (Fleet* Mineral Oil Enema) 133 Ml Oil, 133 ML OK DAILY PRN for CONSTIPATION, ENEMA 08/28/18 Acetaminophen* (Acetaminophen*) 650 Mg Tablet, 650 MG PO DAILY PRN for PAIN AND OR ELEVATED TEMP, #30 TAB 08/28/18 Bisacodyl* (Bisacodyl*) 5 Mg Tablet.dr, 10 MG PO DAILY PRN for CONSTIPATION, TAB 08/28/18 Allergies Allergies: Coded Allergies: Penicillins (Verified Allergy, Unknown, 08/28/18) Sulfa (Sulfonamide Antibiotics) (Verified Allergy, Unknown, 08/28/18) clindamycin (Verified Allergy, Unknown, 08/28/18) ketorolac (Verified Allergy, Unknown, 08/28/18) lactase (Verified Allergy, Unknown, 08/28/18) Uncoded Allergies: TRYPTOPHAN (Allergy, Unknown, 08/28/18) PMhx/Soc History of Surgery: No (unable to obtain, pt altered) Anesthesia Reaction: No Hx Neurological Disorder: Yes (dementia, encepalopathy) Hx Respiratory Disorders: No Hx Cardiac Disorders: Yes (HYPERLIPIDEMIA) Hx Psychiatric Problems: Yes (depression, anxiety, schizo, ) Hx Miscellaneous Medical Probl: Yes (HTN , BEHAVIORAL DISORDER ANXIETY, DEPRESSION, HYPOTHYROIDISM) Hx Alcohol Use: No Hx Substance Use: No Hx Tobacco Use: No Smoking Status: Never smoker FmHx Family History: No diabetes Physical Exam Vitals Vital Signs Date Temp Pulse Resp B/P (MAP) Pulse Ox O2 O2 Flow FiO2 Time Delivery Rate 10/06/18 99.6 139 23 84/66 (72) 98 Non 15.0 08:00 Rebreathe r 10/06/18 99.6 128 23 78/57 (64) 97 Non 07:45 Rebreathe r 10/06/18 101.5 142 23 82/56 (65) 100 Non 15.0 07:30 Rebreathe r 10/06/18 101.5 128 24 86/63 (71) 98 Non 15.0 07:15 Rebreathe r 10/06/18 101.5 07:09 10/06/18 101.5 144 24 78/60 (66) 100 Non 15.0 07:00 Rebreathe r 10/06/18 15.0 06:57 10/06/18 Non 15 06:53 Rebreathe r 10/06/18 Non 15.0 06:53 Rebreathe r 10/06/18 101.5 159 23 60/40 (47) 100 Non 15.0 06:40 Rebreathe r 10/06/18 101.5 169 23 60/40 (47) 89 06:29 Physical Exam General: Moaning, protecting airway Head: Normocephalic, atraumatic. Eyes: Pupils equally reactive, EOM intact ENT: Very dry mucous membranes Neck: Supple, no lymphadenopathy Respiratory: Rhonchi bilaterally with no increased work of breathing Cardiovascular: Irregularly irregular, tachycardia, no murmurs, rubs, or gallops Abdominal: Soft, non-tender, non-distended, no peritoneal signs : Deferred MSK: Limited movement of all 4 extremities, no bony abnormalities Neurologic: Limited exam, and encephalopathic, limited movement of all 4 extremities Skin: No rash, no significant breakdown Psych: Unable to assess Result Diagram: 10/06/1836 10/06/1836 Results 24 hrs Laboratory Tests Test 10/06/18 06:26 10/06/18 06:36 10/06/18 06:43 10/06/18 08:46 Blood Gas Blood arterial Specimen Source Arterial Blood 10/06/2018 6:50:05 Date Drawn AM Arterial Blood pH 7.429 (Temp corrected) Arterial Blood 24.1 mmhg pCO2 (Temp correct) Arterial Blood 306.2 mmHG pO2 (Temp corrected) Arterial Blood 15.6 mmol/L HCO3 Arterial Blood -7.2 mmol/L Base Excess Arterial Blood 99.3 mmHG Oxygen Saturation Greg Test ACCEPTAB Arterial Blood Right Radial Gas Puncture Site Arterial 0.3 % Blood Carboxyhemo globin Arterial Blood 0.3 % Methemoglobin Blood Gas A-a O2 382.7 mmHg Differential Oxyhemoglobin 98.7 % Percent Blood Gas 37.0 C Temperature Blood Gas MASK - NRB Modality FiO2 100.0 % Blood Gas MDA Notified Whom Blood Gas 10/06/2018 6:53:28 Notified Time AM White Blood Count 11.8 10^3/ul Red Blood Count 3.17 10^6/ul Hemoglobin 10.3 g/dl Hematocrit 30.4 % Mean Corpuscular 95.9 fl Volume Mean Corpuscular 32.5 pg Hemoglobin Mean Corpuscular 33.9 g/dl Hemoglobin Concen t Red Cell 14.4 % Distribution Width Platelet Count 168 10^3/UL Mean Platelet 11.8 fl Volume Immature 8.200 % Granulocytes % Neutrophils % % Segmented 52 % Neutrophils % (Manual) Band Neutrophils 13 % % (Manual) Lymphocytes % % Lymphocytes % 21 % (Manual) Monocytes % % Monocytes % 10 % (Manual) Eosinophils % % Basophils % % Metamyelocytes % 3 % (manual) Promyelocytes % 1 % (Manual) Nucleated Red 1 % Blood Cells % Immature 0.960 10^3/ul Granulocytes # Neutrophils # 10^3/ul Neutrophils # 6.3 10^3/ul (Manual) Band Neutrophils 1.5 10^3/ul # Lymphocytes 2.4 10^3/ul (Manual) Lymphocytes # 10^3/ul Monocytes # 10^3/ul Monocytes # 1.1 10^3/ul (Manual) Eosinophils # 10^3/ul Basophils # 10^3/ul Metamyelocytes # 0.3 10^3/ul Promyelocytes # 0.1 10^3/ul Nucleated Red 10^3/ul Blood Cells # Platelet Estimate NORMAL Giant Platelets 1 % Polychromasia 1+ Poikilocytosis 1+ Anisocytosis 1+ Macrocytosis 1+ Prothrombin Time 16.4 Sec Prothrombin Time 1.3 Ratio INR International 1.31 Normalized Ratio Activated 30.9 Sec Partial Thrombopl ast Time Sodium Level 138 mmol/L Potassium Level 4.1 mmol/L Chloride Level 103 mmol/L Carbon Dioxide 18 mmol/L Level Anion Gap 17 Blood Urea 88 mg/dl Nitrogen Creatinine 4.61 mg/dl Est Glomerular 9 mL/min Filtrat Rate mL/min Glucose Level 94 mg/dl Calcium Level 9.4 mg/dl Total Bilirubin 0.1 mg/dl Direct Bilirubin 0.00 mg/dl Indirect 0.1 mg/dl Bilirubin Aspartate Amino 69 IU/L Transf (AST/SGOT) Alanine 8 IU/L Aminotransferase (ALT/SGPT) Alkaline 66 IU/L Phosphatase Troponin I 4.240 ng/ml Total Protein 7.2 g/dl Albumin 3.3 g/dl Globulin 3.90 g/dl Albumin/Globulin 0.84 Ratio Lactic Acid Level 3.0 mmol/L 1.3 mmol/L Current Medications Medications Dose Sig/Ramya Start Time Status Last (Trade) Ordered Route PRN Stop Time Admin Dose Reason Admin Sodium 2,040 ml BOLUS OVER 2 10/06/18 DC 10/06/18 Chloride HOURS STAT 06:26 10/06/18 06:26 (NS) IV* 06:29 650 mg ONCE STAT 10/06/18 DC 10/06/18 Acetaminophen OK 06:26 10/06/18 07:09 (Tylenol 06:29 Supp) Cefepime HCl 50 ml @ ONCE STAT 10/06/18 DC 10/06/18 100 mls/hr IVPB 06:26 10/06/18 06:50 06:55 Vancomycin 250 ml @ ONCE ONCE 10/06/18 DC 10/06/18 HCl 125 mls/hr IVPB 06:30 10/06/18 07:46 08:29 Diltiazem 25 mg STK-MED 10/06/18 DC HCl ONCE .ROUTE 06:32 10/06/18 (Cardizem Iv) 06:33 Diltiazem 10 mg ONCE STAT 10/06/18 DC 10/06/18 HCl IV 06:35 10/06/18 06:50 (Cardizem Iv) 06:37 Diltiazem 125 ml @ 5 ONCE STAT 10/06/18 10/06/18 HCl mls/hr IV 06:35 10/07/18 08:05 07:34 Magnesium 50 ml @ ONCE STAT 10/06/18 DC 10/06/18 Sulfate 600 mls/hr IVPB 06:35 10/06/18 07:09 06:39 250 ml @ ud STK-MED 10/06/18 DC Norepinephrin ONCE .ROUTE 06:40 10/06/18 e 06:41 250 ml @ ONCE STAT 10/06/18 10/06/18 Norepinephrin 7.5 mls/hr IV 07:26 10/07/18 06:45 e 16:45 100 mg ONCE ONCE 10/06/18 DC 10/06/18 Hydrocortison IV 08:30 10/06/18 09:01 e 08:31 (Solu-Cortef) Vasopressin 60 ml @ ONCE STAT 10/06/18 10/06/18 60 2.4 mls/hr IV 08:21 10/07/18 09:00 unit/Sodium 09:20 Chloride Dopamine 250 ml @ 0 ONCE STAT 10/06/18 DC HCl/ mls/hr IV 08:21 10/06/18 Dextrose 08:24 Rocuronium 100 mg ONCE STAT 10/06/18 DC [place] IV 08:25 10/06/18 (Zemuron) 08:27 Etomidate 20 mg ONCE STAT 10/06/18 DC (Amidate) IV 08:25 10/06/18 08:27 Midazolam 50 ml @ 3 ONCE STAT 10/06/18 HCl mls/hr IV 08:25 10/07/18 01:04 Fentanyl 100 ml @ TITRATE 10/06/18 2.5 mls/hr ONCE IV 08:30 10/08/18 00:29 Procedures/MDM EKG, MONITORS, & DIAGNOSTIC IMAGING: EKG: I reviewed and interpreted a 12-lead EKG. Rhythm: A. fib with RVR ST Changes: No contiguous ST segment elevations T waves: No contiguous T wave inversions Impression: A. fib with RVR Chest x-ray #1 Chest x-ray: I reviewed and interpreted a 1 view of the chest Mediastinum: No enlargement Cardiac silhouette: No cardiomegaly Airspace: Interstitial process right greater than left cannot rule out pneumonia Bones: No evidence of fracture Chest x-ray #2 Chest x-ray: I reviewed and interpreted a 1 view of the chest Mediastinum: No enlargement Cardiac silhouette: No cardiomegaly Airspace: Triple-lumen catheter in good position without evidence of pneumothorax Bones: No evidence of fracture Chest x-ray #3 Chest x-ray: I reviewed and interpreted a 1 view of the chest Mediastinum: No enlargement Cardiac silhouette: No cardiomegaly Airspace: Endotracheal tube in good position above the mane Bones: No evidence of fracture PROCEDURE: Intubation Note: Indication: Airway protection Consent: This was an emergent situation, implied consent was observed RSI Medications: Etomidate 20 mg, Rocuronium 100 mg Tube size: 7.5 Secured at: 21 Procedure: Endotracheal intubation was performed. The patient was preoxygenated with supplemental oxygen, the room was set up with emergency airway equipment including [id number], suction, and adjunct airways. Direct visualization of the cords was performed with direct laryngoscopy using video laryngoscope, insertion of the endotracheal tube through the cords was visualized. Bilateral breath sounds were auscultated, color change was observed. The tube was then secured in a postintubation chest x-ray was ordered. The patient tolerated the procedure well there were no complications. Central Line Note: Consent: Critical patient, unable to obtain informed consent Indication: Critically ill patient requiring specialized vascular access for fluid or pressor management Location: Right IJ Indication: Septic shock Procedure: Sterile procedure was observed throughout insertion of the central line. The insertion site was prepped with sterile solution. Ultrasound-guided identification of the vein was performed. Insertion of a needle into the vein was obtained with return of dark, nonpulsatile blood. The wire was then threaded through the needle without complication. The wire was then identified within the vein using ultrasound. A small skin incision was made, the needle was removed intact, dilation of the vein was performed and insertion of a triple lumen catheter was completed. The catheter was then sutured to the skin. All 3 ports vanessa back and flushed without difficulty. A sterile dressing was applied. The patient tolerated the procedure well there were no complications. Emergency Bedside Ultrasound: Indication: Central line Probe Type: Linear Findings: Dynamic ultrasound utilizing compressive technique with both linear and horizontal views, additional images showing wire within the venous system were obtained. The patient tolerated the procedure well and there were no complications. A post-line chest x-ray was ordered as indicated. LAB INTERPRETATION: I reviewed the laboratory testing and it shows significant lactic acid elevation of 3.0, troponin elevation of 4, acute renal failure MEDICAL DECISION MAKING: The patient presents with altered mental status that appears to be acute on chronic, fever, A. fib with RVR and hypotension. Clinical exam and history is very consistent with severe sepsis and septic shock. Patient is critically ill. The patient's comorbidities place her at significant risk for morbidity and mortality. Patient has advanced directives of full code. The patient does not have any family members available at this time. There should be a serious conversation about moving this patient to comfort care, palliation and hospice. Given the frequency of the patient's recurrent episodes of pneumonia the patient likely has some baseline aspiration. The patient requires aggressive resuscitation efforts. Currently she is protecting her airway. Arterial blood gases also reassuring, no indication for intubation unless the patient has significant pressor requirement. I would like to avoid unnecessary intubation in this patient given strong likelihood that she would never come off the ventilator. ER COURSE: * The patient was written for 30 cc/kg bolus, blood cultures prior to broad- spectrum antibiotics in the form of vancomycin and cefepime. Patient cannot tolerate clindamycin given allergies. * The patient remained hypotensive with A. fib RVR. Gentle bolus of Cardizem for attempt of rate control was unsuccessful. A triple-lumen catheter was placed and the patient was started on levo. The patient did require temporization with levo through the peripheral IV but this was very temporary and occurred for less than 1 hour. * The patient continues to protect her airway. The patient is oxygenating and ventilating. No indication for intubation. Continue to monitor. * The patient will be treated for septic shock with titration of pressors for mean arterial pressure greater than 65. * Continue rate control of A. fib with RVR with Cardizem, transition to dig may be necessary on an inpatient basis. Would appreciate cardiology consultation in the inpatient setting. * Patient continued to have increasing pressor requirements maximized on levo. The patient was written for Vasotec and a stress dose steroids and open. * Given the increased pressor requirement patient would benefit from intubation to decrease systemic requirements in the setting of severe sepsis and septic shock. Patient was intubated successfully as documented above. * Troponin elevation likely secondary to demand ischemia in the setting of septic shock, A. fib with RVR. Patient is allergic to nonsteroidal anti- inflammatory, aspirin held for these reasons. CONSULTATION: None DISPOSITION PLAN: Accepting care team and consultations: I discussed the current laboratory data, diagnostic imaging and emergency care provided. Admitting team: Primary care physician page [phone]. Patient admitted to panel. Admitting team indication: Insurance directed Sepsis Documentation: Patient's infectious symptoms have not stabilized and the patient is at risk of rapid decompensation. The patient will be admitted for careful hydration, antibiotic therapy, and infectious source control. 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 Time of recognition of severe sepsis: Upon MD assessment. Time of recognition of septic shock: Upon MD assessment. 3 HOUR BUNDLE Blood cultures x 2 before broad-spectrum antibiotics: Yes 30 ml/kg NS bolus completed at 8:04 AM Initial lactate 3.0 Repeat lactate pending repeat SEPTIC SHOCK ASSESSMENT: No lactic acid > 4.0 Yes - persistent hypotension (SBP < 90 or 40 mmHg drop, MAP < 65) despite 30 mL/kg IV fluid bolus VOLUME REASSESSMENT FOR SEPTIC SHOCK: Reevaluation Time: 8:06 AM Temperature 99.6, heart rate 139, respiratory rate 23, blood pressure 84/66 with mean arterial pressure of 72, pulse ox of 98%, intubated Heart tachycardia irregularly irregular Lungs rhonchi bilaterally Skin warm & dry Cap Refill less than 2 seconds Peripheral pulses radially present PERSISTENT HYPOTENSION TREATMENT: Comfort care no Central line right IJ triple-lumen catheter Vasopressor started Levo I considered further perfusion assessment with CVP measurement, SCVO2, bedside ultrasound volume assessment, passive leg raise, trial of further fluid bolus. And proceeded with 30 ml/kg fluid bolus of NSS, broad spectrum antibiotics, and admission. CRITICAL CARE Critical care time 50 minutes Emergent fluid management while maintaining close respiratory support. Provision of immediate and broad-spectrum antibiotic therapy. Simultaneous assessment for possible sources in order to direct targeted therapy. Consideration for invasive and chemical support to prevent cardiopulmonary collapse. Critical care time is independent of procedures performed. Departure Diagnosis: Primary Impression: Septic shock Additional Impressions: Healthcare-associated pneumonia Aspiration pneumonia Aspiration pneumonia type: unspecified Laterality: unspecified laterality Lung location: unspecified part of lung Qualified Codes: J69.0 - Pneumonitis due to inhalation of food and vomit Acute renal failure Acute renal failure type: unspecified Qualified Codes: N17.9 - Acute kidney failure, unspecified Non-ST elevation myocardial infarction (NSTEMI) Atrial fibrillation with RVR Acute respiratory failure Respiratory failure complication: unspecified whether with hypoxia or hypercapnia Qualified Codes: J96.00 - Acute respiratory failure, unspecified whether with hypoxia or hypercapnia Condition: VITA Sanderson MD Oct 06, 2018 08:06
[2018-10-06] MEDS ORDERED: DOPamine-D5W 1.6 MG/ML 250 ML IV STA (08:21)
[2018-10-06] MEDS ORDERED: VASOPRESSIN 60 UNIT in SOD CHLORIDE 0.9% 57 ML IV STA (08:21)
[2018-10-06] MEDS ORDERED: ROCURONIUM 50 MG INJ IV STA (08:25)
[2018-10-06] MEDS ORDERED: ETOMIDATE 20 MG INJ IV STA (08:25)
[2018-10-06] MEDS ORDERED: MIDAZOLAM (DRIP) 50 mg/50 mL 50 ML IV STA (08:25)
[2018-10-06] MEDS ORDERED: HYDROCORTISONE 100 MG INJ IV ONE (08:30)
[2018-10-06] MEDS ORDERED: FENTAnyl (DRIP) 1000 mcg/100mL 100 ML IV ONE (08:30)
[2018-10-06] MEDS ORDERED: NACL 0.9% 3 ML SYG IV SCH (09:30)
[2018-10-06] MEDS ORDERED: ONDANSETRON 4 MG INJ IV PRN (09:30)
[2018-10-06] MEDS ORDERED: BISACODYL (EC) 5 MG TAB PO PRN (09:30)
[2018-10-06] MEDS ORDERED: LACTULOSE 30ML CUP PO PRN (09:30)
[2018-10-06] MEDS ORDERED: MAGNESIUM HYDROXIDE 30ML CUP PO PRN (09:30)
[2018-10-06] MEDS ORDERED: DOCUSATE SODIUM 100 MG CAP PO PRN (09:30)
[2018-10-06] MEDS ORDERED: MINERAL OIL 133 ML ENEMA PR PRN (09:30)
[2018-10-06] MEDS ORDERED: NITROGLYCERIN (SL) 0.4 MG TAB SL PRN (09:30)
[2018-10-06] MEDS ORDERED: VANCOMYCIN IV PER PHARMACY XX SCH (09:30)
--- NOTE | 2018-10-06 09:37 | CONS ---
Assessment/Plan Assessment/Plan Assessment/Plan (Daily) 1. Non Oliguric Acute kidney injury due to ATN from septic shock 2. Septic shock due to UTI 3. acute UTI 4. Acute hypoxic respiratory failure intubated on ventilator 5. H/o HTN 6 H/o HL 7. 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, Urine studies including Urine Na, urine prot/cr ratio, Urine eosinophils, CK total, Uric acid Renal US to assess for CKD, to rule out hydronephrosis IV abx aztreonam and IV vancomycin , Renally dose all abx and monitor electrolytes Thanks for consultation, I will follow up Consultation Date/Type/Reason Admit Date/Time 10/06/18 Date of Consultation: Oct 06, 2018 Type of Consult NEPHROLOGY Reason for Consultation acute kidney injury , Sepsis, Acidosis Requesting Provider: MANUEL ALEMAN Date/Time of Note DATE: 10/06/18 TIME: 09:36 Hx of Present Illness 67-year-old female with past medical history based on records of prior enterococcus UTI, hypothyroidism, high cholesterol, anxiety, depression, dementia, prior pneumonia, recent treatment for septic shock secondary to urinary tract infection and pneumonia, also chronic encephalopathy who comes in because of fever. Most of her information is obtained from the ER documentation as the patient is unable to provide full HPI at this time. The patient was recently hospitalized in August for severe sepsis and pneumonia at that time. Patient when she came in was found at this time with a temperature of 101.5. She was also found with low blood pressure systolic in the 60s and had to be i ntubated in the ER and placed on pressor support. Patient also had a white blood cell count of 11.8. Patient also found with elevated troponins since admission and also signs of renal insufficiency as her creatinine is significantly more elevated at 4.6 todayz( which was normal today) Patient also was found on admission with atrial fibrillation with RVR and given Cardizem drip but presently is in normal sinus rhythm. BUN/Cr 88/4.61- Renal has been consulted for acute renal failure. Pt required intubation for acute hypoxic resp failure and admitted to ICU. Subjective hx not possible: pt non-verbal Past Medical History Medical History: high cholesterol, hypertension, hypothyroid, other (Dementia, Encephalopathy) Home Meds Active Scripts Vancomycin Hcl (Vancocin) 1 Gm Soln, 500 MG IV Q12 for 7 Days, VIAL 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 08/31/18 Aztreonam (AZTREONAM) 1 Gm Vial, 1 GM IV* Q12 for 7 Days, VIAL 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 08/31/18 Reported Medications Donepezil* (Donepezil*) 5 Mg Tablet, 5 MG PO QHS, #30 TAB 08/28/18 Divalproex Sodium* (Depakote*) 500 Mg Tablet.dr, 500 MG PO BID, #120 TAB 08/28/18 Docusate Sodium* (Colace*) 100 Mg Capsule, 100 MG PO BID PRN for CONSTIPATION, #60 CAP 08/28/18 Atorvastatin Calcium (Atorvastatin Calcium) 10 Mg Tablet, 10 MG PO QHS, #30 TAB 08/28/18 Lorazepam* (Lorazepam*) 1 Mg Tablet, 1 MG PO BID PRN for ANXIETY, #30 TAB 08/28/18 Lactulose* (Lactulose*) 20 Gm/30 Ml Solution, 20 GM PO TID PRN for CONSTIPATION, ML 08/28/18 Trazodone Hcl* (Trazodone Hcl*) 100 Mg Tablet, 100 MG PO QHS, #30 TAB 08/28/18 Quetiapine Fumarate* (Seroquel*) 200 Mg Tablet, 200 MG PO HS, #30 TAB 08/28/18 Sennosides* (Senna Lax*) 8.6 Mg Tablet, 2 TAB PO QHS PRN for CONSTIPATION, TAB 08/28/18 Multivitamins* (Theragran*) 1 Tab Tab, 1 TAB PO DAILY, TAB 08/28/18 Polyethylene Glycol* (Miralax*) 17 Gm Powd.pack, 17 GM PO BID, #60 PACKET 08/28/18 Metoprolol Tartrate* (Lopressor*) 25 Mg Tab, 12.5 MG PO DAILY, #60 TAB HOLD IF SBP<115 OR HR<60 08/28/18 Levothyroxine Sodium* (Levothyroxine Sodium*) 50 Mcg Tablet, 50 MCG PO BEFORE BREAKFAST, #30 TAB 08/28/18 Levetiracetam* (Keppra*) 500 Mg Tablet, 500 MG PO BID, TAB 08/28/18 Gabapentin* (Gabapentin*) 400 Mg Capsule, 400 MG PO TID, #90 CAP 08/28/18 Phenylephrine HCl/Lizella Butter* (Preparation H* Suppository) 1 Each Supp.rect, 1 EACH WI DAILY PRN for CONSTIPATION, SUPP.RECT 08/28/18 Mineral Oil* (Fleet* Mineral Oil Enema) 133 Ml Oil, 133 ML WI DAILY PRN for CO NSTIPATION, ENEMA 08/28/18 Acetaminophen* (Acetaminophen*) 650 Mg Tablet, 650 MG PO DAILY PRN for PAIN AND OR ELEVATED TEMP, #30 TAB 08/28/18 Bisacodyl* (Bisacodyl*) 5 Mg Tablet.dr, 10 MG PO DAILY PRN for CONSTIPATION, TAB 08/28/18 Medications Current Medications Diltiazem HCl 125 ml @ 5 mls/hr ONCE STAT IV Last administered on 10/06/18at 08:05; Admin Dose 5 MLS/HR; Start 10/06/18 at 06:35; Stop 10/07/18 at 07:34 Norepinephrine 250 ml @ 7.5 mls/hr ONCE STAT IV Last administered on 10/06/18at 06:45; Admin Dose 7.5 MLS/HR; Start 10/06/18 at 07:26; Stop 10/07/18 at 16:45 Vasopressin 60 unit/Sodium Chloride 60 ml @ 2.4 mls/hr ONCE STAT IV Last administered on 10/06/18at 09:00; Admin Dose 2.4 MLS/HR; Start 10/06/18 at 08:21; Stop 10/07/18 at 09:20 Midazolam HCl 50 ml @ 3 mls/hr ONCE STAT IV ; Start 10/06/18 at 08:25; Stop 10/07/18 at 01:04 Fentanyl 100 ml @ 2.5 mls/hr TITRATE ONCE IV ; Start 10/06/18 at 08:30; Stop 10/08/18 at 00:29 Allergies: Coded Allergies: Penicillins (Verified Allergy, Unknown, 08/28/18) Sulfa (Sulfonamide Antibiotics) (Verified Allergy, Unknown, 08/28/18) clindamycin (Verified Allergy, Unknown, 08/28/18) ketorolac (Verified Allergy, Unknown, 08/28/18) lactase (Verified Allergy, Unknown, 08/28/18) Uncoded Allergies: TRYPTOPHAN (Allergy, Unknown, 08/28/18) Past Surgical History Past Surgical Hx: other (not available at this time ) Family History Significant Family History: no pertinent family hx Social History Alcohol Use: none Smoking Status: Never smoker Drug Use: none Exam/Review of Systems Exam Vitals Vital Signs Date Temp Pulse Resp B/P (MAP) Pulse Ox O2 O2 Flow FiO2 Time Delivery Rate 10/06/18 99.6 139 23 84/66 (72) 98 Non 15.0 08:00 Rebreather Constitutional: non-verbal, other (Intuabted, on ventilator ) Psych: no complaints Head: normocephalic Neck: supple Respiratory: congested cough, crackles/rales, diminished breath sounds Cardiovascular: nl pulses, irregular rhythm Gastrointestinal: soft, non-tender Musculoskeletal: swelling Neurological: other (sedated on ventilator ) Results Result Diagram: 10/06/18 0636 10/06/18 0636 Results 24hrs Laboratory Tests Test 10/06/18 06:26 10/06/18 06:36 10/06/18 06:43 10/06/18 08:46 Blood Gas Specimen Blood arterial Source Arterial Blood 10/06/2018 6:50:05 Date Drawn AM Arterial Blood pH 7.429 (Temp corrected) Arterial Blood 24.1 L pCO2 (Temp correct) Arterial Blood pO2 306.2 H (Temp corrected) Arterial Blood 15.6 L HCO3 Arterial Blood -7.2 L Base Excess Arterial Blood 99.3 H Oxygen Saturation Greg Test ACCEPTAB Arterial Blood Gas Right Radial Puncture Site Arterial 0.3 Blood Carboxyhemog lobin Arterial Blood 0.3 Methemoglobin Blood Gas A-a O2 382.7 H Differential Oxyhemoglobin 98.7 Percent Blood Gas 37.0 Temperature Blood Gas Modality MASK - NRB FiO2 100.0 Blood Gas Notified MDA Whom Blood Gas Notified 10/06/2018 6:53:28 Time AM White Blood Count 11.8 #H Red Blood Count 3.17 L Hemoglobin 10.3 L Hematocrit 30.4 L Mean Corpuscular 95.9 Volume Mean Corpuscular 32.5 Hemoglobin Mean Corpuscular 33.9 Hemoglobin Concent Red Cell 14.4 Distribution Width Platelet Count 168 # Mean Platelet 11.8 H Volume Immature 8.200 H Granulocytes % Neutrophils % Segmented 52 Neutrophils % (Manual) Band Neutrophils % 13 H (Manual) Lymphocytes % Lymphocytes % 21 (Manual) Monocytes % Monocytes % 10 (Manual) Eosinophils % Basophils % Metamyelocytes % 3 H (manual) Promyelocytes % 1 H (Manual) Nucleated Red 1 H Blood Cells % Immature 0.960 H Granulocytes # Neutrophils # Neutrophils # 6.3 (Manual) Band Neutrophils # 1.5 H Lymphocytes 2.4 (Manual) Lymphocytes # Monocytes # Monocytes # 1.1 H (Manual) Eosinophils # Basophils # Metamyelocytes # 0.3 H Promyelocytes # 0.1 H Nucleated Red Blood Cells # Platelet Estimate NORMAL Giant Platelets 1 H Polychromasia 1+ Poikilocytosis 1+ Anisocytosis 1+ Macrocytosis 1+ Prothrombin Time 16.4 #H Prothrombin Time 1.3 Ratio INR International 1.31 Normalized Ratio Activated 30.[address] Time Sodium Level 138 Potassium Level 4.1 Chloride Level 103 Carbon Dioxide 18 L Level Anion Gap 17 H Blood Urea 88 H Nitrogen Creatinine 4.61 H Est Glomerular 9 L Filtrat Rate mL/min Glucose Level 94 Calcium Level 9.4 Total Bilirubin 0.1 L Direct Bilirubin 0.00 Indirect Bilirubin 0.1 Aspartate Amino 69 H Transf (AST/SGOT) Alanine 8 L Aminotransferase ( ALT/SGPT) Alkaline 66 Phosphatase Troponin I 4.240 *H Total Protein 7.2 Albumin 3.3 Globulin 3.90 H Albumin/Globulin 0.84 Ratio Lactic Acid Level 3.0 *H 1.3 Medications Medication Current Medications Diltiazem HCl 125 ml @ 5 mls/hr ONCE STAT IV Last administered on 10/06/18at 08:05; Admin Dose 5 MLS/HR; Start 10/06/18 at 06:35; Stop 10/07/18 at 07:34 Norepinephrine 250 ml @ 7.5 mls/hr ONCE STAT IV Last administered on 10/06/18at 06:45; Admin Dose 7.5 MLS/HR; Start 10/06/18 at 07:26; Stop 10/07/18 at 16:45 Vasopressin 60 unit/Sodium Chloride 60 ml @ 2.4 mls/hr ONCE STAT IV Last administered on 10/06/18at 09:00; Admin Dose 2.4 MLS/HR; Start 10/06/18 at 08:21; Stop 10/07/18 at 09:20 Midazolam HCl 50 ml @ 3 mls/hr ONCE STAT IV ; Start 10/06/18 at 08:25; Stop 10/07/18 at 01:04 Fentanyl 100 ml @ 2.5 mls/hr TITRATE ONCE IV ; Start 10/06/18 at 08:30; Stop 10/08/18 at 00:29 VALARIE BENNETT MD Oct 06, 2018 09:37
--- NOTE | 2018-10-06 12:02 | CONS ---
DATE OF ADMISSION: 10/06/2018 DATE OF CONSULTATION: 10/06/2018 TYPE OF CONSULTATION: Infectious Disease. REASON FOR CONSULTATION: Antibiotic management. HISTORY OF PRESENT ILLNESS: Mariam Leal is a 67-year-old unfortunate female who was brought i n to the emergency room with fever and shortness of breath from a shelter facility. The julissa ent has numerous problems includin. Chronic encephalopathy. 2. Recent hospitalization in August with severe sepsis and pneumonia. 3. Dementia. 4. Hyperlipidemia. 5. Depression and anxiety. 6. Schizophrenia. 7. Hypertension. 8. Hypothyroidism. 9. Behavioral disorder. 10. Atrial fibrillation. Acutely, the patient comes in hypotensive with fever, atrial fibrillation with rapid ventricular resp onse. She is a FULL CODE. PAST MEDICAL HISTORY: As outlined. FAMILY HISTORY: Noncontributory. SOCIAL HISTORY: She does not smoke, drink or abuse drugs. ALLERGIES: PENICILLIN, SULFA, CLINDAMYCIN, KETOROLAC AND LACTASE. ALSO, TO TRYPTOPHAN The patient had a temperature of 101.5 in the emergency room. White count 11.8, H and H 10.3 and 30.4 , platelet count 168,000. BUN and creatinine 88/4.61, glucose of 94 random. The patient was evaluat ed for septic shock in the emergency room. As noted, her white count was 11.8 with 52 polys, 13 bands. Her blood pressure was 60/40. Patient w as intubated, placed on a respirator, started on vancomycin and cefepime as well as on pressors inclu ding dopamine, norepinephrine. She had a triple lumen right IJ placed. X-ray showed interstitial pr ocess, right greater than left. Cannot rule out pneumonia. PHYSICAL EXAMINATION: GENERAL: The patient is an elderly female, intubated on a respirator. SKIN: Without generalized rash. HEENT: Within normal limits. NECK: Supple. LYMPH NODES: None palpable. CHEST: Scattered rhonchi bilaterally. HEART: Irregularly irregular rhythm, tachycardia. ABDOMEN: Soft, nontender, without organosplenomegaly or masses. EXTREMITIES: Without cyanosis, clubbing, or edema. RECTAL AND GENITAL: Deferred. NEUROLOGIC: Moves all extremities. The patient was also seen by Dr. Ney Davila for renal failure . IMPRESSION AND PLAN: The patient will probably need dialysis. She is to be transferred to the [facility] unit. I will dictate my findings to the hospitalist and Dr. Davila. Dictated By: JOCELYNN MAYFIELD MD, JD/MELIA Conf#: [id number] DID#: [id number] CC: MANUEL ALEMAN;*EndCC*
--- NOTE | 2018-10-06 12:26 | CONS ---
Assessment/Plan Assessment/Plan Assessment/Plan (Daily) IMP: 1. Septic Shock: likely due to urosepsis 2. Respiratory Failure 2/2 #1 3. UMBERTO-- pre-renal vs. ATN 2/2 #1 4. NSTEMI: type II 5. Afib with RVR--now in SR 6. Hypothyroidism RECS: 1. IVF's with LR boluses 2. Follow lactate clearance 3. CVP 4. ECHO 5. Serial TnI 6. Abx 7. D/C vanco 8. D/C cardizem gtt; can use amiodarone, if needed 9. Vent--> increase rate to 28; VT 450 10. Heparin gtt; ASA; statin 11. Cards consult 12. Urine lytes 13. Pressors to MAP >65 mm Hg 14. Will consider hydrocortisone if remains on 2 pressors despite more fluid resuscitation. Consultation Date/Type/Reason Admit Date/Time 10/06/18 Date of Consultation: Oct 06, 2018 Type of Consult Pulm/CCM Reason for Consultation Resp Failure Date/Time of Note DATE: 10/06/18 TIME: 12:14 Hx of Present Illness Briefly, this is a 67-year-old female with a history of HTN, HLD, hy pothyroidism, dementia, anemia, SNF resident, s/p admit 08/2018 for enterococcal urosepsis complicated by UMBERTO and AMS, and resp failure now presents with septic shock due to UTI, resp failure requiring intubation, UMBERTO, and type II NSTEMI. Subjective hx not possible: pt non-verbal Past Medical History Medical History: high cholesterol, hypertension, hypothyroid, urinary tract infection Home Meds Active Scripts Vancomycin Hcl (Vancocin) 1 Gm Soln, 500 MG IV Q12 for 7 Days, VIAL Prov:NUGENT,ALEN V. CIDER MAKER 08/31/18 Aztreonam (AZTREONAM) 1 Gm Vial, 1 GM IV* Q12 for 7 Days, VIAL Prov:NUGENT,ALEN V. CIDER MAKER 08/31/18 Reported Medications Donepezil* (Donepezil*) 5 Mg Tablet, 5 MG PO QHS, #30 TAB 08/28/18 Divalproex Sodium* (Depakote*) 500 Mg Tablet.dr, 500 MG PO BID, #120 TAB 08/28/18 Docusate Sodium* (Colace*) 100 Mg Capsule, 100 MG PO BID PRN for CONSTIPATION, #60 CAP 08/28/18 Atorvastatin Calcium (Atorvastatin Calcium) 10 Mg Tablet, 10 MG PO QHS, #30 TAB 08/28/18 Lorazepam* (Lorazepam*) 1 Mg Tablet, 1 MG PO BID PRN for ANXIETY, #30 TAB 08/28/18 Lactulose* (Lactulose*) 20 Gm/30 Ml Solution, 20 GM PO TID PRN for CONSTIPATION, ML 08/28/18 Trazodone Hcl* (Trazodone Hcl*) 100 Mg Tablet, 100 MG PO QHS, #30 TAB 08/28/18 Quetiapine Fumarate* (Seroquel*) 200 Mg Tablet, 200 MG PO HS, #30 TAB 08/28/18 Sennosides* (Senna Lax*) 8.6 Mg Tablet, 2 TAB PO QHS PRN for CONSTIPATION, TAB 08/28/18 Multivitamins* (Theragran*) 1 Tab Tab, 1 TAB PO DAILY, TAB 08/28/18 Polyethylene Glycol* (Miralax*) 17 Gm Powd.pack, 17 GM PO BID, #60 PACKET 08/28/18 Metoprolol Tartrate* (Lopressor*) 25 Mg Tab, 12.5 MG PO DAILY, #60 TAB HOLD IF SBP<115 OR HR<60 08/28/18 Levothyroxine Sodium* (Levothyroxine Sodium*) 50 Mcg Tablet, 50 MCG PO BEFORE BREAKFAST, #30 TAB 08/28/18 Levetiracetam* (Keppra*) 500 Mg Tablet, 500 MG PO BID, TAB 08/28/18 Gabapentin* (Gabapentin*) 400 Mg Capsule, 400 MG PO TID, #90 CAP 08/28/18 Phenylephrine HCl/Willis Butter* (Preparation H* Suppository) 1 Each Supp.rect, 1 EACH DC DAILY PRN for CONSTIPATION, SUPP.RECT 08/28/18 Mineral Oil* (Fleet* Mineral Oil Enema) 133 Ml Oil, 133 ML DC DAILY PRN for CONSTIPATION, ENEMA 08/28/18 Acetaminophen* (Acetaminophen*) 650 Mg Tablet, 650 MG PO DAILY PRN for PAIN AND OR ELEVATED TEMP, #30 TAB 08/28/18 Bisacodyl* (Bisacodyl*) 5 Mg Tablet.dr, 10 MG PO DAILY PRN for CONSTIPATION, TAB 08/28/18 Medications Current Medications Diltiazem HCl 125 ml @ 5 mls/hr ONCE STAT IV Last administered on 10/06/18at 08:05; Admin Dose 5 MLS/HR; Start 10/06/18 at 06:35; Stop 10/07/18 at 07:34 Norepinephrine 250 ml @ 7.5 mls/hr ONCE STAT IV Last administered on 10/06/18at 06:45; Admin Dose 7.5 MLS/HR; Start 10/06/18 at 07:26; Stop 10/07/18 at 16:45 Vasopressin 60 unit/Sodium Chloride 60 ml @ 2.4 mls/hr ONCE STAT IV Last adm inistered on 10/06/18at 09:00; Admin Dose 2.4 MLS/HR; Start 10/06/18 at 08:21; Stop 10/07/18 at 09:20 Midazolam HCl 50 ml @ 3 mls/hr ONCE STAT IV ; Start 10/06/18 at 08:25; Stop 10/07/18 at 01:04 Fentanyl 100 ml @ 2.5 mls/hr TITRATE ONCE IV ; Start 10/06/18 at 08:30; Stop 10/08/18 at 00:29 IV Flush (NS 3 ml) 3 ml PER PROTOCOL IV ; Start 10/06/18 at 09:30 Ondansetron HCl (Zofran Inj) 4 mg Q6H PRN IV NAUSEA/VOMITING; Start 10/06/18 at 09:30 Acetaminophen (Tylenol Tab) 650 mg Q6H PRN PO .PAIN 1-3 OR TEMP; Start 10/06/18 at 09:30 Acetaminophen/ Hydrocodone Bitart ([place] (5/325)) 1 tab Q6H PRN PO .MOD PAIN 4- 6; Start 10/06/18 at 09:30 Morphine Sulfate (morphine) 2 mg Q4H PRN IV .SEVERE PAIN 7-10; Start 10/06/18 at 09:30 Docusate Sodium (Colace) 100 mg Q12H PRN PO .CONSTIPATION; Start 10/06/18 at 09:30 Magnesium Hydroxide (Milk Of Mag) 30 ml DAILY PRN PO .CONSTIPATION; Start 10/06/18 at 09:30 Heparin Sodium (Porcine) (Heparin (5000 Units/1ml)) 5,000 unit Q12 SC ; Start 10/06/18 at 21:00 Lorazepam (Ativan) 0.5 mg Q6H PRN IV ANXIETY; Start 10/06/18 at 09:30 Albuterol/ Ipratropium (Duoneb) 3 ml Q4H RESP THERAPY PRN HHN SHORTNESS OF BREATH; Start 10/06/18 at 09:30 Vancomycin HCl (Vanco Iv Per Pharmacy) VANCOMYCIN PER PHARMACY NOTE XX ; Start 10/06/18 at 09:30 Nitroglycerin (Nitroglycerin (Sl Tab) 0.4 Mg) 1 tab Q5M PRN SL ANGINA; Start 10/06/18 at 09:30 Atorvastatin Calcium (Lipitor) 10 mg QHS PO ; Start 10/06/18 at 21:00 Bisacodyl (Dulcolax) 10 mg DAILY PRN PO CONSTIPATION; Start 10/06/18 at 09:30 Divalproex Sodium (Depakote) 500 mg BID PO ; Start 10/06/18 at 21:00 Donepezil HCl (Aricept) 5 mg QHS PO ; Start 10/06/18 at 21:00 Lactulose (Enulose) 20 gm TID PRN PO CONSTIPATION; Start 10/06/18 at 09:30 Levetiracetam (Keppra) 500 mg BID PO ; Start 10/06/18 at 21:00 Levothyroxine Sodium (Synthroid) 50 mcg BEFORE BREAKFAST PO ; Start 10/07/18 at 07:00 Mineral Oil (Fleet Mineral Oil Enema) 133 ml DAILY PRN DC CONSTIPATION; Start 10/06/18 at 09:30 Multivitamins Therapeutic (Theragran) 1 tab DAILY PO ; Start 10/07/18 at 09:00 Polyethylene Glycol (Miralax) 17 gm BID PO ; Start 10/06/18 at 21:00 Famotidine (Pepcid Iv) 20 mg DAILY IV ; Start 10/06/18 at 11:00 Norepinephrine 32 mg/Dextrose 250 ml @ 0.47 mls/hr TITRATE IV ; Start 10/06/18 at 11:30 Aztreonam 2 gm/ Sodium Chloride 100 ml @ 100 mls/hr Q12 IVPB ; Start 10/06/18 at 14:00 Allergies: Coded Allergies: Penicillins (Verified Allergy, Unknown, 08/28/18) Sulfa (Sulfonamide Antibiotics) (Verified Allergy, Unknown, 08/28/18) clindamycin (Verified Allergy, Unknown, 08/28/18) ketorolac (Verified Allergy, Unknown, 08/28/18) lactase (Verified Allergy, Unknown, 08/28/18) Uncoded Allergies: TRYPTOPHAN (Allergy, Unknown, 08/28/18) Family History Significant Family History: no pertinent family hx Social History Alcohol Use: none Smoking Status: Never smoker Drug Use: none Exam/Review of Systems Exam Vitals Vital Signs Date Temp Pulse Resp B/P (MAP) Pulse Ox O2 O2 Flow FiO2 Time Delivery Rate 10/06/18 98.7 103 14 125/70 100 Mechanical 10:53 (88) Ventilator 10/06/18 40 08:45 10/06/18 15.0 08:15 Constitutional: non-verbal Head: normocephalic, atraumatic Eyes: nl conjunctiva, nl sclera ENMT: nl external ears & nose, nl lips & teeth, nl nasal mucosa & septum, intubated Neck: supple, non-tender Respiratory: clear to auscultation, normal air movement Cardiovascular: regular rate and rhythm, nl pulses Gastrointestinal: soft, nl liver, spleen, non-tender Musculoskeletal: nl extremities to inspection Extremities: normal pulses Neurological: DTR's symmetric, unresponsive Skin: nl turgor Lymph: nl lymph nodes Results Result Diagram: 10/06/18 0636 10/06/18 0636 Results 24hrs Laboratory Tests Test 10/06/18 06:26 10/06/18 06:36 10/06/18 06:43 10/06/18 08:25 Blood Gas Blood arterial Blood arterial Specimen Source Arterial Blood 10/06/2018 6:50:05 10/06/2018 11:50:1 Date Drawn AM 0 AM Arterial Blood 7.429 7.247 *L pH (Temp corrected) Arterial Blood 24.1 L 37.0 pCO2 (Temp correct) Arterial Blood 306.2 H 80.1 pO2 (Temp corrected) Arterial Blood 15.6 L 15.8 L HCO3 Arterial Blood -7.2 L -10.7 L Base Excess Arterial Blood 99.3 H 93.4 L Oxygen Saturatio n Greg Test ACCEPTAB ACCEPTAB Arterial Blood Right Radial Right Radial Gas Puncture Site Arterial 0.3 0.3 Blood Carboxyhem oglobin Arterial Blood 0.3 0.3 Methemoglobin Blood Gas A-a O2 382.7 H 307.0 H Differential Oxyhemoglobin 98.7 92.8 L Percent Blood Gas 37.0 37.0 Temperature Blood Gas MASK - NRB VENT - AC Modality FiO2 100.0 60.0 Blood Gas [facility] [place] [employer] Notified Whom Blood Gas 10/06/2018 6:53:28 10/06/2018 12:12:5 Notified Time AM 4 PM White Blood 11.8 #H Count Red Blood Count 3.17 L Hemoglobin 10.3 L Hematocrit 30.4 L Mean Corpuscular 95.9 Volume Mean Corpuscular 32.5 Hemoglobin Mean Corpuscular 33.9 Hemoglobin Kiah nt Red Cell 14.4 Distribution Width Platelet Count 168 # Mean Platelet 11.8 H Volume Immature 8.200 H Granulocytes % Neutrophils % Segmented 52 Neutrophils % (Manual) Band Neutrophils 13 H % (Manual) Lymphocytes % Lymphocytes % 21 (Manual) Monocytes % Monocytes % 10 (Manual) Eosinophils % Basophils % Metamyelocytes % 3 H (manual) Promyelocytes % 1 H (Manual) Nucleated Red 1 H Blood Cells % Immature 0.960 H Granulocytes # Neutrophils # Neutrophils # 6.3 (Manual) Band Neutrophils 1.5 H # Lymphocytes 2.4 (Manual) Lymphocytes # Monocytes # Monocytes # 1.1 H (Manual) Eosinophils # Basophils # Metamyelocytes # 0.3 H Promyelocytes # 0.1 H Nucleated Red Blood Cells # Platelet NORMAL Estimate Giant Platelets 1 H Polychromasia 1+ Poikilocytosis 1+ Anisocytosis 1+ Macrocytosis 1+ Prothrombin Time 16.4 #H Prothrombin Time 1.3 Ratio INR 1.31 International Normalized Ratio Activated 30.9 Partial Thrombop last Time Sodium Level 138 Potassium Level 4.1 Chloride Level 103 Carbon Dioxide 18 L Level Anion Gap 17 H Blood Urea 88 H Nitrogen Creatinine 4.61 H Est Glomerular 9 L Filtrat Rate mL/min Glucose Level 94 Calcium Level 9.4 Total Bilirubin 0.1 L Direct Bilirubin 0.00 Indirect 0.1 Bilirubin Aspartate Amino 69 H Transf (AST/SGOT ) Alanine 8 L Aminotransferase (ALT/SGPT) Alkaline 66 Phosphatase Troponin I 4.240 *H Total Protein 7.2 Albumin 3.3 Globulin 3.90 H Albumin/Globulin 0.84 Ratio Lactic Acid 3.0 *H Level Blood Gas 14.0 Respiration Rate Blood Gas Actual 14 Respiration Rate Blood Gas Tidal 500.0 Volume Blood Gas Low 5.0 PEEP Setting Blood Gas I. AMPARO GILLILAND Critical Value Read Back Test 10/06/18 08:46 10/06/18 09:22 10/06/18 09:23 10/06/18 10:04 Lactic Acid 1.3 Level Urine 0.0 Eosinophils % Urine Random 156.76 Creatinine Urine Random 17 L Sodium Urine 2.17 Protein/Creatini ne Ratio Urine Total 341.0 H 2+ H Protein Urine Color BONG Urine Clarity TURBID A Urine pH 5.0 Urine Specific 1.018 [place] Urine Ketones NEGATIVE Urine Nitrite NEGATIVE Urine Bilirubin NEGATIVE Urine NEGATIVE Urobilinogen Urine Leukocyte 3+ H Esterase Urine 18 H Microscopic RBC Urine > 182 H Microscopic WBC Urine Amorphous FEW A Crystals Urine Bacteria MODERATE Urine Mucus MANY A Urine Hemoglobin 1+ H Urine Glucose NEGATIVE Hemoglobin A1c 5.1 Test 10/06/18 10:05 10/06/18 10:41 Creatine Kinase 283 H Creatine Kinase 4.5 Index Creatinine 12.70 H Kinase MB (Mass) Troponin I 5.480 *H Free Thyroxine 1.32 Lactic Acid 1.5 Level Medications Medication Current Medications Diltiazem HCl 125 ml @ 5 mls/hr ONCE STAT IV Last administered on 10/06/18at 08:05; Admin Dose 5 MLS/HR; Start 10/06/18 at 06:35; Stop 10/07/18 at 07:34 Norepinephrine 250 ml @ 7.5 mls/hr ONCE STAT IV Last administered on 10/06/18at 06:45; Admin Dose 7.5 MLS/HR; Start 10/06/18 at 07:26; Stop 10/07/18 at 16:45 Vasopressin 60 unit/Sodium Chloride 60 ml @ 2.4 mls/hr ONCE STAT IV Last administered on 10/06/18at 09:00; Admin Dose 2.4 MLS/HR; Start 10/06/18 at 08:21; Stop 10/07/18 at 09:20 Midazolam HCl 50 ml @ 3 mls/hr ONCE STAT IV ; Start 10/06/18 at 08:25; Stop 10/07/18 at 01:04 Fentanyl 100 ml @ 2.5 mls/hr TITRATE ONCE IV ; Start 10/06/18 at 08:30; Stop 10/08/18 at 00:29 IV Flush (NS 3 ml) 3 ml PER PROTOCOL IV ; Start 10/06/18 at 09:30 Ondansetron HCl (Zofran Inj) 4 mg Q6H PRN IV NAUSEA/VOMITING; Start 10/06/18 at 09:30 Acetaminophen (Tylenol Tab) 650 mg Q6H PRN PO .PAIN 1-3 OR TEMP; Start 10/06/18 at 09:30 Acetaminophen/ Hydrocodone Bitart ([place] (5/325)) 1 tab Q6H PRN PO .MOD PAIN 4- 6; Start 10/06/18 at 09:30 Morphine Sulfate (morphine) 2 mg Q4H PRN IV .SEVERE PAIN 7-10; Start 10/06/18 at 09:30 Docusate Sodium (Colace) 100 mg Q12H PRN PO .CONSTIPATION; Start 10/06/18 at 09:30 Magnesium Hydroxide (Milk Of Mag) 30 ml DAILY PRN PO .CONSTIPATION; Start 10/06/18 at 09:30 Heparin Sodium (Porcine) (Heparin (5000 Units/1ml)) 5,000 unit Q12 SC ; Start 10/06/18 at 21:00 Lorazepam (Ativan) 0.5 mg Q6H PRN IV ANXIETY; Start 10/06/18 at 09:30 Albuterol/ Ipratropium (Duoneb) 3 ml Q4H RESP THERAPY PRN HHN SHORTNESS OF BREATH; Start 10/06/18 at 09:30 Vancomycin HCl (Vanco Iv Per Pharmacy) VANCOMYCIN PER PHARMACY NOTE XX ; Start 10/06/18 at 09:30 Nitroglycerin (Nitroglycerin (Sl Tab) 0.4 Mg) 1 tab Q5M PRN SL ANGINA; Start 10/06/18 at 09:30 Atorvastatin Calcium (Lipitor) 10 mg QHS PO ; Start 10/06/18 at 21:00 Bisacodyl (Dulcolax) 10 mg DAILY PRN PO CONSTIPATION; Start 10/06/18 at 09:30 Divalproex Sodium (Depakote) 500 mg BID PO ; Start 10/06/18 at 21:00 Donepezil HCl (Aricept) 5 mg QHS PO ; Start 10/06/18 at 21:00 Lactulose (Enulose) 20 gm TID PRN PO CONSTIPATION; Start 10/06/18 at 09:30 Levetiracetam (Keppra) 500 mg BID PO ; Start 10/06/18 at 21:00 Levothyroxine Sodium (Synthroid) 50 mcg BEFORE BREAKFAST PO ; Start 10/07/18 at 07:00 Mineral Oil (Fleet Mineral Oil Enema) 133 ml DAILY PRN DC CONSTIPATION; Start 10/06/18 at 09:30 Multivitamins Therapeutic (Theragran) 1 tab DAILY PO ; Start 10/07/18 at 09:00 Polyethylene Glycol (Miralax) 17 gm BID PO ; Start 10/06/18 at 21:00 Famotidine (Pepcid Iv) 20 mg DAILY IV ; Start 10/06/18 at 11:00 Norepinephrine 32 mg/Dextrose 250 ml @ 0.47 mls/hr TITRATE IV ; Start 10/06/18 at 11:30 Aztreonam 2 gm/ Sodium Chloride 100 ml @ 100 mls/hr Q12 IVPB ; Start 10/06/18 at 14:00 MARICEL REDDY MD Oct 06, 2018 12:25
[2018-10-06] MEDS ORDERED: LACTATED RINGER'S 1,000 ML IV ONE (12:30)
[2018-10-06] MEDS: ASPIRIN 81 MG TAB NGT SCH (12:30)
[2018-10-06] MEDS ORDERED: HEPARIN 1000 UNITS/ML 10 ML INJ IV ONE (12:30)
[2018-10-06] MEDS ORDERED: HEPARIN 1000 UNITS/ML 10 ML INJ IV PRN (12:30)
[2018-10-06] MEDS: FAMOTIDINE 20 MG INJ IV SCH (13:26)
--- NOTE | 2018-10-06 13:36 | HP ---
DATE OF ADMISSION: 10/06/2018 CHIEF COMPLAINT: Sent in from health care facility. She was sent in because of fever, shortness of breath. HISTORY OF PRESENT ILLNESS: A 67-year-old female with past medical history based on records of prior enterococcus UTI, hypothyroidism, high cholesterol, anxiety, depression, dementia, prior pneumonia, recent treatment for septic shock secondary to urinary tract infection and pneumonia, also chronic en cephalopathy who comes in because of fever. [facility] the [facility] is unable to provide full HPI at this time. The patient was recently hospitaliz ed in August for severe sepsis and pneumonia at that time. Patient when she came in was found at th is time with a temperature of 101.5. She was also found with low blood pressure systolic in the 60s and had to be intubated in the ER and placed on pressor support. Patient also had a white blood cell count of 11.8. Patient also found with elevated troponins since admission and also signs of renal i nsufficiency as her creatinine is significantly more elevated at 4.6 today. The patient was recently here at our hospital as mentioned above from August 28 to August 31. Again, treated at that t [facility] for sepsis and septic shock secondary to pneumonia and enterococcus UTI and UMBERTO at the time. Patient also was found on admission with atrial fibrillation with RVR and given Cardizem drip but pre sently is in normal sinus rhythm. PAST MEDICAL HISTORY: As above. ALLERGIES 1. PENICILLIN. 2. SULFA MEDICATIONS. 3. TRYPTOPHAN. 4. CLINDAMYCIN. 5. TORADOL. 6. LACTASE. MEDICATIONS AT HOME: 1. Donepezil 5 mg. 2. Atorvastatin 10 mg. 3. Metoprolol 12.5 mg. 4. Tylenol p.r.n. 5. Depakote 500 mg. 6. Gabapentin 400 mg t.i.d. 7. Keppra 500 mg twice a day. 8. Ativan 1 mg p.r.n. 9. Seroquel 200 mg at bedtime. 10. Trazodone 100 mg at bedtime. 11. Lactulose 20 grams t.i.d. p.r.n. 12. Dulcolax 10 mg daily p.r.n. 13. Colace 100 mg b.i.d. p.r.n. 14. Fleets enema daily p.r.n. 15. MiraLax 17 grams b.i.d. 16. Senna 2 tabs at bedtime p.r.n. 17. Levothyroxine 50 mcg every morning. 18. Multivitamin 1 tab daily. PAST SURGICAL HISTORY: None. SOCIAL HISTORY: Negative for smoking, drinking, or IV drug abuse. FAMILY HISTORY: Noncontributory. PHYSICAL EXAMINATION: VITAL SIGNS: T-max 101.5, pulse 169 to 78, respirations 23, blood pressure 60 to 80 systolic over 40 to 66 diastolic, satting at 100% now intubated. GENERAL: The patient lying in bed, intubated, sedated. HEENT: Unable to fully assess at this time. NECK: Supple, no thyromegaly. LUNGS: Slightly distant breath sounds bilaterally. CARDIOVASCULAR: S1, S2 heard. No rubs or gallops. ABDOMEN: Soft, nontender, nondistended. Normal bowel sounds. No rebound or guarding. MUSCULOSKELETAL: No lower extremity edema bilaterally. NEUROLOGIC: Unable to fully assess because the patient is intubated and sedated. LABORATORIES: WBC 11.8, hemoglobin 10.3, hematocrit 30.4, platelets 168. Sodium 138, potassium 4.1, chloride 103, CO2 is 18, BUN 88, creatinine 4.61, glucose 94. Lactic acid 3.0. LFTs appear to be n ormal except the AST is a little high at 69. First troponin is 4.2, second troponin 5.4. Coags show an INR of 1.3. Renal ultrasound shows echogenic kidneys consistent with medical renal disease, no h ydronephrosis. Chest x-ray shows low lung volumes with compressive changes and improved patchy basil ar atelectasis. ASSESSMENT AND PLAN: A 67-year-old female coming in with signs of septic shock, likely secondary to urinary tract infection and pneumonia, elevated troponins, acute renal insufficiency, now intubated o n pressor support. Also, with atrial fibrillation with rapid ventricular response, now in normal sin us rhythm. 1. Fever. Again, secondary to septic shock, likely all secondary to upper respiratory infection and UTI. Let the patient get ID consult, put her on broad spectrum antibiotics. The patient on her [facility] admission had positive enterococcus UTI so, based on sensitivities for that, we will continue curre nt antibiotic sensitivities to that until we follow ID recommendations. Check TSH, A1c, lipid panel. Continue IV fluids and pressor support. Try to wean off as tolerated. Tylenol p.r.n. pain and fev ers. Consider PT consult. 2. Elevated troponins. Unclear if this is true non-ST elevation myocardial infarction versus demand ischemia. Again, she will be placed on heparin drip for now given the significant elevation in her troponins, get a cardiology consult. Continue high dose aspirin. Trend her troponins q.6 hours x2 m ore. She is also on Lipitor. 3. Morphine p.r.n. 4. Oxygen supplementation. 5. Nitroglycerin p.r.n. 6. She will be on heparin drip as well to treat possible non-ST elevation myocardial infarction. 7. Atrial fibrillation with rapid ventricular response, resolved now. Continue to monitor for now. She did receive some Cardizem in the ER. 8. Renal insufficiency. Creatinine is significantly worsened since her last admission 4.6. We will get a renal consult. Monitor ins and outs and place Piña catheter. Follow up BUN and creatinine isamar ruiz. 9. For hypothyroidism continue to monitor for now. Continue current thyroid medicines. 10. History of dementia. Continue Aricept for now. She is also on Keppra. 11. History of high cholesterol. Continue to monitor for now. She is on statin. Follow up with li pid panel. 12. Gastrointestinal prophylaxis. Add H2 panda. 13. Deep venous thrombosis prophylaxis. She is on heparin drip. Dictated By: MANUEL DELACRUZ Conf#: [id number] DID#: [id number]
[2018-10-06] MEDS: HEPARIN 25000 UNITS/250 ML 250 ML IV SCH (13:44)
[2018-10-06] MEDS ORDERED: AZTREONAM 2 GM in SOD CHLORIDE 0.9% 100 ML IVPB SCH (14:00)
[2018-10-06] MEDS: AZTREONAM 2 GM in SOD CHLORIDE 0.9% 100 ML IVPB SCH ×2 (14:00→23:42)
--- NOTE | 2018-10-06 15:23 | CONS ---
Consultation Date/Type/Reason Admit Date/Time 10/06/18 Type of Consult Cardiology Date/Time of Note DATE: 10/06/18 TIME: 15:22 Hx of Present Illness 67 yo with NSTEMI, a. fib with RVR - now in sinus - trop peaked at 5 and going down with ARF - plan for heparin gtt. med rX - will follow # [id number] Past Medical History Home Meds Active Scripts Vancomycin Hcl (Vancocin) 1 Gm Soln, 500 MG IV Q12 for 7 Days, VIAL 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 RECYCLING DIRECTOR 08/31/18 Aztreonam (AZTREONAM) 1 Gm Vial, 1 GM IV* Q12 for 7 Days, VIAL 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 RECYCLING DIRECTOR 08/31/18 Reported Medications Donepezil* (Donepezil*) 5 Mg Tablet, 5 MG PO QHS, #30 TAB 08/28/18 Divalproex Sodium* (Depakote*) 500 Mg Tablet.dr, 500 MG PO BID, #120 TAB 08/28/18 Docusate Sodium* (Colace*) 100 Mg Capsule, 100 MG PO BID PRN for CONSTIPATION, #60 CAP 08/28/18 Atorvastatin Calcium (Atorvastatin Calcium) 10 Mg Tablet, 10 MG PO QHS, #30 TAB 08/28/18 Lorazepam* (Lorazepam*) 1 Mg Tablet, 1 MG PO BID PRN for ANXIETY, #30 TAB 08/28/18 Lactulose* (Lactulose*) 20 Gm/30 Ml Solution, 20 GM PO TID PRN for CONSTIPATION, ML 08/28/18 Trazodone Hcl* (Trazodone Hcl*) 100 Mg Tablet, 100 MG PO QHS, #30 TAB 08/28/18 Quetiapine Fumarate* (Seroquel*) 200 Mg Tablet, 200 MG PO HS, #30 TAB 08/28/18 Sennosides* (Senna Lax*) 8.6 Mg Tablet, 2 TAB PO QHS PRN for CONSTIPATION, TAB 08/28/18 Multivitamins* (Theragran*) 1 Tab Tab, 1 TAB PO DAILY, TAB 08/28/18 Polyethylene Glycol* (Miralax*) 17 Gm Powd.pack, 17 GM PO BID, #60 PACKET 08/28/18 Metoprolol Tartrate* (Lopressor*) 25 Mg Tab, 12.5 MG PO DAILY, #60 TAB HOLD IF SBP<115 OR HR<60 08/28/18 Levothyroxine Sodium* (Levothyroxine Sodium*) 50 Mcg Tablet, 50 MCG PO BEFORE BREAKFAST, #30 TAB 08/28/18 Levetiracetam* (Keppra*) 500 Mg Tablet, 500 MG PO BID, TAB 08/28/18 Gabapentin* (Gabapentin*) 400 Mg Capsule, 400 MG PO TID, #90 CAP 08/28/18 Phenylephrine HCl/[place] Butter* (Preparation H* Suppository) 1 Each Supp.rect, 1 EACH [place] DAILY PRN for CONSTIPATION, SUPP.RECT 08/28/18 Mineral Oil* (Fleet* Mineral Oil Enema) 133 Ml Oil, 133 ML [place] DAILY PRN for CONSTIPATION, ENEMA 08/28/18 Acetaminophen* (Acetaminophen*) 650 Mg Tablet, 650 MG PO DAILY PRN for PAIN AND OR ELEVATED TEMP, #30 TAB 08/28/18 Bisacodyl* (Bisacodyl*) 5 Mg Tablet.dr, 10 MG PO DAILY PRN for CONSTIPATION, TAB 08/28/18 Medications Current Medications Norepinephrine 250 ml @ 7.5 mls/hr ONCE STAT IV Last administered on 10/06/18at 06:45; Admin Dose 7.5 MLS/HR; Start 10/06/18 at 07:26; Stop 10/07/18 at 16:45 Vasopressin 60 unit/Sodium Chloride 60 ml @ 2.4 mls/hr ONCE STAT IV Last administered on 10/06/18at 09:00; Admin Dose 2.4 MLS/HR; Start 10/06/18 at 08:21; Stop 10/07/18 at 09:20 Midazolam HCl 50 ml @ 3 mls/hr ONCE STAT IV ; Start 10/06/18 at 08:25; Stop 10/07/18 at 01:04 Fentanyl 100 ml @ 2.5 mls/hr TITRATE ONCE IV ; Start 10/06/18 at 08:30; Stop 10/08/18 at 00:29 IV Flush (NS 3 ml) 3 ml PER PROTOCOL IV ; Start 10/06/18 at 09:30 Ondansetron HCl (Zofran Inj) 4 mg Q6H PRN IV NAUSEA/VOMITING; Start 10/06/18 at 09:30 Acetaminophen (Tylenol Tab) 650 mg Q6H PRN PO .PAIN 1-3 OR TEMP; Start 10/06/18 at 09:30 Acetaminophen/ Hydrocodone Bitart ([place] (5/325)) 1 tab Q6H PRN PO .MOD PAIN 4- 6; Start 10/06/18 at 09:30 Morphine Sulfate (morphine) 2 mg Q4H PRN IV .SEVERE PAIN 7-10; Start 10/06/18 at 09:30 Docusate Sodium (Colace) 100 mg Q12H PRN PO .CONSTIPATION; Start 10/06/18 at 09:30 Magnesium Hydroxide (Milk Of Mag) 30 ml DAILY PRN PO .CONSTIPATION; Start 10/06/18 at 09:30 Lorazepam (Ativan) 0.5 mg Q6H PRN IV ANXIETY; Start 10/06/18 at 09:30 Albuterol/ Ipratropium (Duoneb) 3 ml Q4H RESP THERAPY PRN HHN SHORTNESS OF BREATH; Start 10/06/18 at 09:30 Nitroglycerin (Nitroglycerin (Sl Tab) 0.4 Mg) 1 tab Q5M PRN SL ANGINA; Start 10/06/18 at 09:30 Bisacodyl (Dulcolax) 10 mg DAILY PRN PO CONSTIPATION; Start 10/06/18 at 09:30 Divalproex Sodium (Depakote) 500 mg BID PO ; Start 10/06/18 at 21:00 Donepezil HCl (Aricept) 5 mg QHS PO ; Start 10/06/18 at 21:00 Lactulose (Enulose) 20 gm TID PRN PO CONSTIPATION; Start 10/06/18 at 09:30 Levetiracetam (Keppra) 500 mg BID PO ; Start 10/06/18 at 21:00 Levothyroxine Sodium (Synthroid) 50 mcg BEFORE BREAKFAST PO ; Start 10/07/18 at 07:00 Mineral Oil (Fleet Mineral Oil Enema) 133 ml DAILY PRN [place] CONSTIPATION; Start 10/06/18 at 09:30 Multivitamins Therapeutic (Theragran) 1 tab DAILY PO ; Start 10/07/18 at 09:00 Polyethylene Glycol (Miralax) 17 gm BID PO ; Start 10/06/18 at 21:00 Famotidine (Pepcid Iv) 20 mg DAILY IV Last administered on 10/06/18at 13:26; Admin Dose 20 MG; Start 10/06/18 at 11:00 Norepinephrine 32 mg/Dextrose 250 ml @ 0.47 mls/hr TITRATE IV ; Start 10/06/18 at 11:30 Aztreonam 2 gm/ Sodium Chloride 100 ml @ 100 mls/hr Q12 IVPB Last administered on 10/06/18at 14:00; Admin Dose 100 MLS/HR; Start 10/06/18 at 14:00 Aspirin (Aspirin) 81 mg DAILY NGT ; Start 10/06/18 at 12:30 Heparin Sodium (Porcine) (Heparin (1000 Units/ml)) 4,000 unit PER PROTOCOL PRN IV aPTT<47; Start 10/06/18 at 12:30 Heparin Sodium (Porcine) 250 ml @ 8 mls/hr PER PROTOCOL IV Last administered on 10/06/18at 13:44; Admin Dose 8 MLS/HR; Start 10/06/18 at 12:30 Atorvastatin Calcium (Lipitor) 40 mg DAILY@21 NGT ; Start 10/06/18 at 21:00 Aspirin (Aspirin) 81 mg DAILY [place] ; Start 10/06/18 at 15:30; Status UNV Allergies: Coded Allergies: Penicillins (Verified Allergy, Unknown, 08/28/18) Sulfa (Sulfonamide Antibiotics) (Verified Allergy, Unknown, 08/28/18) clindamycin (Verified Allergy, Unknown, 08/28/18) ketorolac (Verified Allergy, Unknown, 08/28/18) lactase (Verified Allergy, Unknown, 08/28/18) Uncoded Allergies: TRYPTOPHAN (Allergy, Unknown, 08/28/18) Social History Alcohol Use: none Smoking Status: Never smoker Drug Use: none Exam/Review of Systems Vital Signs Vitals Vital Signs Date Temp Pulse Resp B/P (MAP) Pulse Ox O2 O2 Flow FiO2 Time Delivery Rate 10/06/18 93 12:00 10/06/18 98.7 14 125/70 100 Mechanical 10:53 (88) Ventilator 10/06/18 40 10:30 10/06/18 15.0 08:15 Labs Result Diagram: 10/06/18 1308 10/06/18 0636 Results 24hrs Laboratory Tests Test 10/06/18 06:26 10/06/18 06:36 10/06/18 06:43 10/06/18 08:25 Blood Gas Blood arterial Blood arterial Specimen Source Arterial Blood 10/06/2018 6:50:05 10/06/2018 11:50:1 Date Drawn AM 0 AM Arterial Blood 7.429 7.247 *L pH (Temp corrected) Arterial Blood 24.1 L 37.0 pCO2 (Temp correct) Arterial Blood 306.2 H 80.1 pO2 (Temp corrected) Arterial Blood 15.6 L 15.8 L HCO3 Arterial Blood -7.2 L -10.7 L Base Excess Arterial Blood 99.3 H 93.4 L Oxygen Saturatio n Greg Test ACCEPTAB ACCEPTAB Arterial Blood Right Radial Right Radial Gas Puncture Site Arterial 0.3 0.3 Blood Carboxyhem oglobin Arterial Blood 0.3 0.3 Methemoglobin Blood Gas A-a O2 382.7 H 307.0 H Differential Oxyhemoglobin 98.7 92.8 L Percent Blood Gas 37.0 37.0 Temperature Blood Gas MASK - NRB VENT - AC Modality FiO2 100.0 60.0 Blood Gas ALICE STAFFORD [facility] Notified Whom Blood Gas 10/06/2018 6:53:28 10/06/2018 12:12:5 Notified Time AM 4 PM White Blood 11.8 #H Count Red Blood Count 3.17 L Hemoglobin 10.3 L Hematocrit 30.4 L Mean Corpuscular 95.9 Volume Mean Corpuscular 32.5 Hemoglobin Mean Corpuscular 33.9 Hemoglobin Kiah nt Red Cell 14.4 Distribution Width Platelet Count 168 # Mean Platelet 11.8 H Volume Immature 8.200 H Granulocytes % Neutrophils % Segmented 52 Neutrophils % (Manual) Band Neutrophils 13 H % (Manual) Lymphocytes % Lymphocytes % 21 (Manual) Monocytes % Monocytes % 10 (Manual) Eosinophils % Basophils % Metamyelocytes % 3 H (manual) Promyelocytes % 1 H (Manual) Nucleated Red 1 H Blood Cells % Immature 0.960 H Granulocytes # Neutrophils # Neutrophils # 6.3 (Manual) Band Neutrophils 1.5 H # Lymphocytes 2.4 (Manual) Lymphocytes # Monocytes # Monocytes # 1.1 H (Manual) Eosinophils # Basophils # Metamyelocytes # 0.3 H Promyelocytes # 0.1 H Nucleated Red Blood Cells # Platelet NORMAL Estimate Giant Platelets 1 H Polychromasia 1+ Poikilocytosis 1+ Anisocytosis 1+ Macrocytosis 1+ Prothrombin Time 16.4 #H Prothrombin Time 1.3 Ratio INR 1.31 International Normalized Ratio Activated 30.9 Partial Thrombop last Time Sodium Level 138 Potassium Level 4.1 Chloride Level 103 Carbon Dioxide 18 L Level Anion Gap 17 H Blood Urea 88 H Nitrogen Creatinine 4.61 H Est Glomerular 9 L Filtrat Rate mL/min Glucose Level 94 Calcium Level 9.4 Total Bilirubin 0.1 L Direct Bilirubin 0.00 Indirect 0.1 Bilirubin Aspartate Amino 69 H Transf (AST/SGOT ) Alanine 8 L Aminotransferase (ALT/SGPT) Alkaline 66 Phosphatase Troponin I 4.240 *H Total Protein 7.2 Albumin 3.3 Globulin 3.90 H Albumin/Globulin 0.84 Ratio Lactic Acid 3.0 *H Level Blood Gas 14.0 Respiration Rate Blood Gas Actual 14 Respiration Rate Blood Gas Tidal 500.0 Volume Blood Gas Low 5.0 PEEP Setting Blood Gas I. AMPARO GILLILAND Critical Value Read Back Test 10/06/18 08:46 10/06/18 09:22 10/06/18 09:23 10/06/18 10:04 Lactic Acid 1.3 Level Urine 0.0 Eosinophils % Urine Random 156.76 Creatinine Urine Random 17 L Sodium Urine 2.17 Protein/Creatini ne Ratio Urine Total 341.0 H 2+ H Protein Urine Color BONG Urine Clarity TURBID A Urine pH 5.0 Urine Specific 1.018 [place] Urine Ketones NEGATIVE Urine Nitrite NEGATIVE Urine Bilirubin NEGATIVE Urine NEGATIVE Urobilinogen Urine Leukocyte 3+ H Esterase Urine 18 H Microscopic RBC Urine > 182 H Microscopic WBC Urine Amorphous FEW A Crystals Urine Bacteria MODERATE Urine Mucus MANY A Urine Hemoglobin 1+ H Urine Glucose NEGATIVE Hemoglobin A1c 5.1 Test 10/06/18 10:05 10/06/18 10:41 10/06/18 13:08 Creatine Kinase 283 H Creatine Kinase 4.5 Index Creatinine 12.70 H Kinase MB (Mass) Troponin I 5.480 *H 4.300 *H Free Thyroxine 1.32 Lactic Acid 1.5 1.7 Level White Blood 13.1 H Count Red Blood Count 3.18 L Hemoglobin 10.2 L Hematocrit 30.4 L Mean Corpuscular 95.6 Volume Mean Corpuscular 32.1 Hemoglobin Mean Corpuscular 33.6 Hemoglobin Kiah nt Red Cell 14.5 Distribution Width Platelet Count 165 Mean Platelet 12.1 H Volume Immature 14.700 H Granulocytes % Neutrophils % Segmented 53 Neutrophils % (Manual) Band Neutrophils 29 H % (Manual) Lymphocytes % Lymphocytes % 4 L (Manual) Reactive 2 H Lymphocytes % (Manual) Monocytes % Monocytes % 6 (Manual) Eosinophils % Basophils % Metamyelocytes % 2 H (manual) Myelocytes % 2 H (Manual) Promyelocytes % 2 H (Manual) Nucleated Red 0.2 H Blood Cells % Immature 1.920 H Granulocytes # Neutrophils # Neutrophils # 7.4 (Manual) Band Neutrophils 3.7 H # Lymphocytes 0.5 L (Manual) Lymphocytes # Reactive 0.2 H Lymphocytes # Monocytes # Monocytes # 0.7 (Manual) Eosinophils # Basophils # Metamyelocytes # 0.2 H Myelocytes # 0.2 H Promyelocytes # 0.2 H Nucleated Red Blood Cells # Toxic 2+ Granulation Platelet DECREASED Estimate Giant Platelets 2 H Polychromasia 1+ Poikilocytosis 2+ Anisocytosis 1+ Macrocytosis 1+ Target Cells 1+ Tear Drop Cells 1+ Ovalocytes 1+ Prothrombin Time 16.9 H Prothrombin Time 1.3 Ratio INR 1.36 International Normalized Ratio Activated 32.0 Partial Thrombop last Time Medications Medications Current Medications Norepinephrine 250 ml @ 7.5 mls/hr ONCE STAT IV Last administered on 10/06/18at 06:45; Admin Dose 7.5 MLS/HR; Start 10/06/18 at 07:26; Stop 10/07/18 at 16:45 Vasopressin 60 unit/Sodium Chloride 60 ml @ 2.4 mls/hr ONCE STAT IV Last administered on 10/06/18at 09:00; Admin Dose 2.4 MLS/HR; Start 10/06/18 at 08:21; Stop 10/07/18 at 09:20 Midazolam HCl 50 ml @ 3 mls/hr ONCE STAT IV ; Start 10/06/18 at 08:25; Stop 10/07/18 at 01:04 Fentanyl 100 ml @ 2.5 mls/hr TITRATE ONCE IV ; Start 10/06/18 at 08:30; Stop 10/08/18 at 00:29 IV Flush (NS 3 ml) 3 ml PER PROTOCOL IV ; Start 10/06/18 at 09:30 Ondansetron HCl (Zofran Inj) 4 mg Q6H PRN IV NAUSEA/VOMITING; Start 10/06/18 at 09:30 Acetaminophen (Tylenol Tab) 650 mg Q6H PRN PO .PAIN 1-3 OR TEMP; Start 10/06/18 at 09:30 Acetaminophen/ Hydrocodone Bitart ([place] (5/325)) 1 tab Q6H PRN PO .MOD PAIN 4- 6; Start 10/06/18 at 09:30 Morphine Sulfate (morphine) 2 mg Q4H PRN IV .SEVERE PAIN 7-10; Start 10/06/18 at 09:30 Docusate Sodium (Colace) 100 mg Q12H PRN PO .CONSTIPATION; Start 10/06/18 at 09:30 Magnesium Hydroxide (Milk Of Mag) 30 ml DAILY PRN PO .CONSTIPATION; Start 10/06/18 at 09:30 Lorazepam (Ativan) 0.5 mg Q6H PRN IV ANXIETY; Start 10/06/18 at 09:30 Albuterol/ Ipratropium (Duoneb) 3 ml Q4H RESP THERAPY PRN HHN SHORTNESS OF BREATH; Start 10/06/18 at 09:30 Nitroglycerin (Nitroglycerin (Sl Tab) 0.4 Mg) 1 tab Q5M PRN SL ANGINA; Start 10/06/18 at 09:30 Bisacodyl (Dulcolax) 10 mg DAILY PRN PO CONSTIPATION; Start 10/06/18 at 09:30 Divalproex Sodium (Depakote) 500 mg BID PO ; Start 10/06/18 at 21:00 Donepezil HCl (Aricept) 5 mg QHS PO ; Start 10/06/18 at 21:00 Lactulose (Enulose) 20 gm TID PRN PO CONSTIPATION; Start 10/06/18 at 09:30 Levetiracetam (Keppra) 500 mg BID PO ; Start 10/06/18 at 21:00 Levothyroxine Sodium (Synthroid) 50 mcg BEFORE BREAKFAST PO ; Start 10/07/18 at 07:00 Mineral Oil (Fleet Mineral Oil Enema) 133 ml DAILY PRN [place] CONSTIPATION; Start 10/06/18 at 09:30 Multivitamins Therapeutic (Theragran) 1 tab DAILY PO ; Start 10/07/18 at 09:00 Polyethylene Glycol (Miralax) 17 gm BID PO ; Start 10/06/18 at 21:00 Famotidine (Pepcid Iv) 20 mg DAILY IV Last administered on 10/06/18at 13:26; Admin Dose 20 MG; Start 10/06/18 at 11:00 Norepinephrine 32 mg/Dextrose 250 ml @ 0.47 mls/hr TITRATE IV ; Start 10/06/18 at 11:30 Aztreonam 2 gm/ Sodium Chloride 100 ml @ 100 mls/hr Q12 IVPB Last administered on 10/06/18at 14:00; Admin Dose 100 MLS/HR; Start 10/06/18 at 14:00 Aspirin (Aspirin) 81 mg DAILY NGT ; Start 10/06/18 at 12:30 Heparin Sodium (Porcine) (Heparin (1000 Units/ml)) 4,000 unit PER PROTOCOL PRN IV aPTT<47; Start 10/06/18 at 12:30 Heparin Sodium (Porcine) 250 ml @ 8 mls/hr PER PROTOCOL IV Last administered on 10/06/18at 13:44; Admin Dose 8 MLS/HR; Start 10/06/18 at 12:30 Atorvastatin Calcium (Lipitor) 40 mg DAILY@21 NGT ; Start 10/06/18 at 21:00 Aspirin (Aspirin) 81 mg DAILY [place] ; Start 10/06/18 at 15:30; Status ZANE WYMAN MD Oct 06, 2018 15:23
[2018-10-06] MEDS ORDERED: ASPIRIN 300 MG SUPP PR SCH (15:30)
--- NOTE | 2018-10-06 15:55 | CONS ---
DATE OF ADMISSION: 10/06/2018 DATE OF CONSULTATION: 10/06/2018 TYPE OF CONSULTATION: Cardiology. REFERRING PHYSICIAN: Manuel Aleman MD REASON FOR EVALUATION: Elevated troponin, hypertension. HISTORY OF PRESENT ILLNESS: Ms. Leal is a 67-year-old woman who was brought in from a [facility] for evaluation of febrile illness. She was intubated in the emergency department; hence, I a m not able to obtain any history from her. Per EKG evaluation and admission, she was in atrial fibri llation with rapid ventricular response. She is septic and it appears that her troponin peaked at 5. 4 now coming down to 4.3. The patient was reinitiated on heparin drip by Dr. Mccormack which is reaso nable thing to do. The patient appears to be tolerated for pressors currently without any issues and she converted to sinus rhythm. I think for now, conservative therapy would be expected. She is not a candidate at this moment for beta panda. We will continue to track her troponin to obtain 2D ec ho. We will optimize her fluid status and follow conservatively. I do not think there is any indica tion for amiodarone now as the patient converted to sinus rhythm and appears to be fairly stable. PAST MEDICAL HISTORY: Dyslipidemia, history of dementia, history of hypertension, history of chronic debilitated state, history of encephalopathy and prior episodes of hypoxia. She also of vascu lar dementia. ALLERGIES: 1. PENICILLIN. 2. SULFA. 3. TRYPTOPHAN. 4. CLINDAMYCIN. 5. KETOROLAC. 6. LACTATE. REVIEW OF SYSTEMS: The patient is not able to provide as she is intubated now. Per discussion with nurses: CONSTITUTIONAL: Have some fevers, chills and febrile illness. HEENT: No changes in vision or hearing. CARDIAC: No chest pain was reported, but the patient is tachycardia. RESPIRATORY: Shortness of breath. GASTROINTESTINAL: No nausea, vomiting. GENITOURINARY: No dysuria, hematuria. NEUROLOGIC: History of encephalopathy, chronic. PHYSICAL EXAMINATION: VITAL SIGNS: Temperature is 98.7, heart rate 93 now in sinus, blood pressure 95/70. GENERAL: She is thin woman in no acute distress, alert and oriented x0, intubated. NECK: Supple. JVD is 6 cm. There is no lymphadenopathy. HEART: Regular, soft holosystolic murmur. PMI is minimally displaced. There is no S3. LUNGS: Coarse at the base. ABDOMEN: Distended. Bowel sounds are present. There is no hepatosplenomegaly. EXTREMITIES: Show no clubbing, cyanosis or edema. She will receive 3 liters of fluid for placement. LABORATORY DATA: Show troponin peaked of 5.4 down to 4.3. INR is 1.36. White blood cell count is 7 .1, hemoglobin 10.2, platelets 165. Creatinine is 4.6 on presentation. ASSESSMENT AND PLAN: 1. Elevated troponin. The patient has elevated troponin consistent with non-ST elevation myocardial infarction, atrial fibrillation as well as renal failure likely contributing. Currently, the patien t is not a candidate for any invasive therapy. She is not a candidate for beta panda. We will con tinue heparin drip and aspirin. If the patient is not able to tolerate aspirin via NG tube, we will administer rectal if needed. 2. Atrial fibrillation with rapid ventricular response. Now, the patient converted to sinus rhythm. We will monitor clinically now. 3. Hypertension. The patient is on Levophed. Continue to adjust medications as needed. She appear s to be responding to IV hydration. 4. Infection. Continue the patient on antibiotics. 5. Dementia. The patient does report vascular dementia. Defer to primary team for management. 6. Acute renal failure. Continue to hydrate the patient. Renal team will follow. I would like to thank Dr. Aleman for referring this patient for my evaluation. Dictated By: ZANE JACOME MD ML/NTS Conf#: [id number] DID#: [id number] CC: JOCELYNN MAYFIELD MD; MANUEL ALEMAN;*EndCC*
[2018-10-06] MEDS: NORepinephrine 32 MG in DEXTROSE 5% 218 ML IV SCH (17:32)
[2018-10-06] MEDS ORDERED: **FLU VACCINE PREVIOUSLY DISPENSED XX PRN (18:00)
[2018-10-06] MEDS ORDERED: FAMOTIDINE 20 MG INJ IV SCH (21:00)
[2018-10-06] MEDS ORDERED: HEPARIN 5,000 UNIT/1 ML VIAL SC SCH (21:00)
[2018-10-06] MEDS ORDERED: ATORVASTATIN 20 MG TAB NGT SCH (21:00)
[2018-10-06] MEDS ORDERED: ATORVASTATIN 10 MG TAB PO SCH (21:00)
[2018-10-07] VITALS (103 sets, daily range): BP systolic 68–118; BP diastolic 53–97; PULSE 92–191; RESP 21–40
[2018-10-07] MEDS: ATORVASTATIN 40 MG TAB NGT SCH ×2 (00:54→20:45)
[2018-10-07] MEDS: DIVALPROEX (EC) 500 MG TAB PO SCH ×3 (00:54→20:45)
[2018-10-07] MEDS: POLYETHYLENE GLYCOL 17 GM PACKET PO SCH ×3 (00:54→20:46)
[2018-10-07] MEDS: LEVETIRACETAM 500 MG TAB PO SCH ×3 (00:54→20:46)
[2018-10-07] MEDS: DONEPEZIL 5 MG TAB PO SCH ×2 (00:54→20:46)
[2018-10-07] MEDS ORDERED: SOD CHLORIDE 0.9% 500 ML IV ONE ×2 (03:30→12:00)
[2018-10-07] MEDS: LEVOTHYROXINE 50 MCG TAB PO SCH (06:26)
[2018-10-07] MEDS: ASPIRIN 81 MG TAB NGT SCH (08:40)
[2018-10-07] MEDS: MULTIVITAMINS THERAPEUTIC TAB PO SCH (08:40)
[2018-10-07] MEDS: FAMOTIDINE 20 MG INJ IV SCH (08:40)
--- NOTE | 2018-10-07 08:57 | PN ---
Date/Time of Note Date/Time of Note DATE: 10/07/18 TIME: 08:49 Assessment/Plan VTE Prophylaxis Risk score (from Ns)>0 risk: 5 SCD applied (from Ns): Yes Pharmacological prophylaxis: heparin Lines/Catheters IV Catheter Type (from [facility] Central Line Central line still needed: Yes Urinary Cath still in place: Yes Reason Cath still needed: other (indicate) (intubated) Assessment/Plan Assessment/Plan A 67-year-old female coming in with signs of septic shock, likely secondary to urinary tract infection and pneumonia, elevated troponins, acute renal insufficiency, now intubated on pressor support. Also, with atrial fibrillation with rapid ventricular response, now in normal sinus rhythm. # Fever #Septic shock - Dr. Sanford following. - Likely due to URI and/or UTI. - Blood cultures growing GNRs x2. - The patient on her last admission had positive enterococcus UTI so, based on sensitivities for that, we will continue current antibiotic sensitivities to that until we follow ID recommendations. - Continue IV fluids and pressor support. Try to wean off as tolerated. - Tylenol p.r.n. pain and fevers. # NSTEMI - Unclear if this is true non-ST elevation myocardial infarction versus demand ischemia. - Again, she will be placed on heparin drip for now given the significant elevation in her troponins, - Continue high dose aspirin. - Trend her troponins q.6 hours x2 more. - She is also on Lipitor. - Dr. Mello consulted. #A fib with RVR, paroxysmal - Dr. Mello following - Now back in normal sinus after getting Cardizem in ED # Renal insufficiency. - Creatinine is significantly worsened since her last admission 4.6. - Dr. Davila consulted # Hypothyroidism continue to monitor for now. - Continue current thyroid medicines. - Low TSH, normal fT4 consistent with sick euthyroid syndrome. # History of dementia. Continue Aricept for now. #Seizure disorder - She is on Keppra. # History of high cholesterol. - Cont statin # Gastrointestinal prophylaxis. Add H2 panda. # Deep venous thrombosis prophylaxis. She is on heparin drip. Result Diagram: 10/07/1841410/07/18414 Subjective 24 Hr Interval Summary Free Text/Dictation No acute overnight events. Off sedation, patient is unresponsive. Exam/Review of Systems Exam Vitals Vital Signs Date Temp Pulse Resp B/P (MAP) Pulse Ox O2 O2 Flow FiO2 Time Delivery Rate 10/07/18 104 28 99 30 07:42 10/07/18 91/66 (74) Mechanical 07:00 Ventilator 10/07/18 98.3 04:00 10/06/18 15.0 08:15 Intake and Output 10/06/18 10/06/18 10/07/18 1515:00 23:00 07:00 IntakeIntake Total 1361.625 ml 140.510 ml 184.37 ml OutputOutput Total 225 ml 140 ml BalanceBalance 1361.625 ml -84.490 ml 44.37 ml Exam GENERAL: Well developed woman lying in bed, intubated, unresponsive HEENT: Pupils dilated bilaterally, unresponsive to light. Moist mucous membranes, ET tube in place. NECK: Supple, no thyromegaly. LUNGS: Mechanical breath sounds equal bilatreally. CARDIOVASCULAR: S1, S2 heard. No rubs or gallops. ABDOMEN: Soft, nontender, nondistended. Normal bowel sounds. No rebound or guarding. MUSCULOSKELETAL: No lower extremity edema bilaterally. Results Results 24hrs Laboratory Tests Test 10/06/18 09:22 10/06/18 09:23 10/06/18 10:04 10/06/18 10:05 Urine Eosinophils 0.0 % Urine Random 156.76 Creatinine Urine Random 17 L Sodium Urine 2.17 Protein/Creatinine Ratio Urine Total 341.0 H 2+ H Protein Urine Color BONG Urine Clarity TURBID A Urine pH 5.0 Urine Specific 1.018 [place] Urine Ketones NEGATIVE Urine Nitrite NEGATIVE Urine Bilirubin NEGATIVE Urine Urobilinogen NEGATIVE Urine Leukocyte 3+ H Esterase Urine Microscopic 18 H RBC Urine Microscopic > 182 H WBC Urine Amorphous FEW A Crystals Urine Bacteria MODERATE Urine Mucus MANY A Urine Hemoglobin 1+ H Urine Glucose NEGATIVE Hemoglobin A1c 5.1 Creatine Kinase 283 H Creatine Kinase 4.5 Index Creatinine Kinase 12.70 H MB (Mass) Troponin I 5.480 *H Free Thyroxine 1.32 Test 10/06/18 10:41 10/06/18 13:08 10/06/18 15:23 10/06/18 17:27 Lactic Acid Level 1.5 1.7 1.8 White Blood Count 13.1 H Red Blood Count 3.18 L Hemoglobin 10.2 L Hematocrit 30.4 L Mean Corpuscular 95.6 Volume Mean Corpuscular 32.1 Hemoglobin Mean Corpuscular 33.6 Hemoglobin Concent Red Cell 14.5 Distribution Width Platelet Count 165 Mean Platelet 12.1 H Volume Immature 14.700 H Granulocytes % Neutrophils % Segmented 53 Neutrophils % (Manual) Band Neutrophils % 29 H (Manual) Lymphocytes % Lymphocytes % 4 L (Manual) Reactive 2 H Lymphocytes % (Manual) Monocytes % Monocytes % 6 (Manual) Eosinophils % Basophils % Metamyelocytes % 2 H (manual) Myelocytes % 2 H (Manual) Promyelocytes % 2 H (Manual) Nucleated Red 0.2 H Blood Cells % Immature 1.920 H Granulocytes # Neutrophils # Neutrophils # 7.4 (Manual) Band Neutrophils # 3.7 H Lymphocytes 0.5 L (Manual) Lymphocytes # Reactive 0.2 H Lymphocytes # Monocytes # Monocytes # 0.7 (Manual) Eosinophils # Basophils # Metamyelocytes # 0.2 H Myelocytes # 0.2 H Promyelocytes # 0.2 H Nucleated Red Blood Cells # Toxic Granulation 2+ Platelet Estimate DECREASED Giant Platelets 2 H Polychromasia 1+ Poikilocytosis 2+ Anisocytosis 1+ Macrocytosis 1+ Target Cells 1+ Tear Drop Cells 1+ Ovalocytes 1+ Prothrombin Time 16.9 H Prothrombin Time 1.3 Ratio INR International 1.36 Normalized Ratio Activated 32.[address] Time Troponin I 4.300 *H 4.060 *H Creatine Kinase 194 Creatine Kinase 5.5 Index Creatinine Kinase 10.60 H MB (Mass) Test 10/06/18 19:53 10/06/18 21:58 10/07/18 01:55 10/07/18 04:15 Activated 65.3 H 49.2 H 56.[address] Time Potassium Level 3.8 3.9 Lactic Acid Level 1.6 1.5 Magnesium Level 2.9 H 2.9 H White Blood Count 15.2 H Red Blood Count 3.05 L Hemoglobin 9.7 L Hematocrit 28.1 L Mean Corpuscular 92.1 Volume Mean Corpuscular 31.8 Hemoglobin Mean Corpuscular 34.5 Hemoglobin Concent Red Cell 14.4 Distribution Width Platelet Count 170 Mean Platelet 12.5 H Volume Immature 4.800 H Granulocytes % Neutrophils % Lymphocytes % Monocytes % Eosinophils % Basophils % Nucleated Red 0.1 H Blood Cells % Immature 0.730 H Granulocytes # Neutrophils # Lymphocytes # Monocytes # Eosinophils # Basophils # Nucleated Red Blood Cells # Prothrombin Time 20.2 H Prothrombin Time 1.6 Ratio INR International 1.71 Normalized Ratio Sodium Level 137 Chloride Level 108 Carbon Dioxide 16 L Level Anion Gap 13 Blood Urea 102 H Nitrogen Creatinine 4.25 H Est Glomerular 10 L Filtrat Rate mL/min Glucose Level 114 Hemoglobin A1c 5.3 Uric Acid 9.4 H Calcium Level 8.8 Phosphorus Level 4.6 Total Bilirubin 0.0 L Direct Bilirubin 0.00 Indirect Bilirubin 0.0 Aspartate Amino 76 H Transf (AST/SGOT) Alanine 32 Aminotransferase ( ALT/SGPT) Alkaline 71 Phosphatase Creatine Kinase 94 Total Protein 6.4 Albumin 2.8 L Globulin 3.60 H Albumin/Globulin 0.77 Ratio Triglycerides 232 H Level Cholesterol Level 81 L LDL Cholesterol, 23 Calculated HDL Cholesterol 12 L Cholesterol/HDL 6.7 Ratio Thyroid 0.264 L Stimulating Hormone (TSH) Test 10/07/18 05:00 10/07/18 08:05 Blood Gas Specimen Blood arterial Source Arterial Blood 10/07/2018 4:50:49 Date Drawn AM Arterial Blood pH 7.400 (Temp corrected) Arterial Blood 21.4 L pCO2 (Temp correct) Arterial Blood pO2 190.8 H (Temp corrected) Arterial Blood 13.0 L HCO3 Arterial Blood -10.1 L Base Excess Arterial Blood 99.3 H Oxygen Saturation Greg Test ACCEPTAB Arterial Blood Gas Right Radial Puncture Site Arterial 0.3 Blood Carboxyhemog lobin Arterial Blood 0.3 Methemoglobin Blood Gas A-a O2 69.8 H Differential Oxyhemoglobin 98.7 Percent Blood Gas 37.0 Temperature Blood Gas 28.0 Respiration Rate Blood Gas Actual 28 Respiration Rate Blood Gas Modality VENT - AC FiO2 40.0 Blood Gas Tidal 450.0 Volume Blood Gas Low PEEP 5.0 Setting Blood Gas Notified UP Whom Blood Gas Notified 10/07/2018 5:41:15 Time AM Activated 59.[address] Time Medications Medication Current Medications Norepinephrine 250 ml @ 7.5 mls/hr ONCE STAT IV Last administered on 10/06/18at 06:45; Admin Dose 7.5 MLS/HR; Start 10/06/18 at 07:26; Stop 10/07/18 at 16:45 Vasopressin 60 unit/Sodium Chloride 60 ml @ 2.4 mls/hr ONCE STAT IV Last administered on 10/06/18at 09:00; Admin Dose 2.4 MLS/HR; Start 10/06/18 at 08:21; Stop 10/07/18 at 09:20 Fentanyl 100 ml @ 2.5 mls/hr TITRATE ONCE IV ; Start 10/06/18 at 08:30; Stop 10/08/18 at 00:29 IV Flush (NS 3 ml) 3 ml PER PROTOCOL IV ; Start 10/06/18 at 09:30 Ondansetron HCl (Zofran Inj) 4 mg Q6H PRN IV NAUSEA/VOMITING; Start 10/06/18 at 09:30 Acetaminophen (Tylenol Tab) 650 mg Q6H PRN PO .PAIN 1-3 OR TEMP; Start 10/06/18 at 09:30 Acetaminophen/ Hydrocodone Bitart ([place] (5/325)) 1 tab Q6H PRN PO .MOD PAIN 4- 6; Start 10/06/18 at 09:30 Morphine Sulfate (morphine) 2 mg Q4H PRN IV .SEVERE PAIN 7-10; Start 10/06/18 at 09:30 Docusate Sodium (Colace) 100 mg Q12H PRN PO .CONSTIPATION; Start 10/06/18 at 09:30 Magnesium Hydroxide (Milk Of Mag) 30 ml DAILY PRN PO .CONSTIPATION; Start 10/06/18 at 09:30 Lorazepam (Ativan) 0.5 mg Q6H PRN IV ANXIETY; Start 10/06/18 at 09:30 Albuterol/ Ipratropium (Duoneb) 3 ml Q4H RESP THERAPY PRN HHN SHORTNESS OF BREATH; Start 10/06/18 at 09:30 Nitroglycerin (Nitroglycerin (Sl Tab) 0.4 Mg) 1 tab Q5M PRN SL ANGINA; Start 10/06/18 at 09:30 Bisacodyl (Dulcolax) 10 mg DAILY PRN PO CONSTIPATION; Start 10/06/18 at 09:30 Divalproex Sodium (Depakote) 500 mg BID PO Last administered on 10/07/18at 08:40; Admin Dose 500 MG; Start 10/06/18 at 21:00 Donepezil HCl (Aricept) 5 mg QHS PO Last administered on 10/07/18at 00:54; Admin Dose 5 MG; Start 10/06/18 at 21:00 Lactulose (Enulose) 20 gm TID PRN PO CONSTIPATION; Start 10/06/18 at 09:30 Levetiracetam (Keppra) 500 mg BID PO Last administered on 10/07/18 08:40; Admin Dose 500 MG; Start 10/06/18 at 21:00 Levothyroxine Sodium (Synthroid) 50 mcg BEFORE BREAKFAST PO Last administered on 10/07/18 06:26; Admin Dose 50 MCG; Start 10/07/18 at 07:00 Mineral Oil (Fleet Mineral Oil Enema) 133 ml DAILY PRN [place] CONSTIPATION; Start 10/06/18 at 09:30 Multivitamins Therapeutic (Theragran) 1 tab DAILY PO Last administered on 10/07/18 08:40; Admin Dose 1 TAB; Start 10/07/18 at 09:00 Polyethylene Glycol (Miralax) 17 gm BID PO Last administered on 10/07/18 08:40; Admin Dose 17 GM; Start 10/06/18 at 21:00 Famotidine (Pepcid Iv) 20 mg DAILY IV Last administered on 10/07/18 08:40; Admin Dose 20 MG; Start 10/06/18 at 11:00 Norepinephrine 32 mg/Dextrose 250 ml @ 0.47 mls/hr TITRATE IV Last administered on 10/06/18 17:32; Admin Dose 4.69 MLS/HR; Start 10/06/18 at 11:30 Aztreonam 2 gm/ Sodium Chloride 100 ml @ 100 mls/hr Q12 IVPB Last administered on 10/06/18 23:42; Admin Dose 100 MLS/HR; Start 10/06/18 at 14:00 Aspirin (Aspirin) 81 mg DAILY NGT Last administered on 10/07/18 08:40; Admin Dose 81 MG; Start 10/06/18 at 12:30 Heparin Sodium (Porcine) (Heparin (1000 Units/ml)) 4,000 unit PER PROTOCOL PRN IV aPTT<47; Start 10/06/18 at 12:30 Heparin Sodium (Porcine) 250 ml @ 8 mls/hr PER PROTOCOL IV Last administered on 10/06/18 13:44; Admin Dose 8 MLS/HR; Start 10/06/18 at 12:30 Atorvastatin Calcium (Lipitor) 40 mg DAILY@21 NGT Last administered on 10/07/18at 00:54; Admin Dose 40 MG; Start 10/06/18 at 21:00 Miscellaneous Information (Flu Vaccine Previously Dispensed) FLU VACCINE PREVIOU... NOTE PRN XX NOTE; Start 10/06/18 at 18:00 ANGELA MOSQUERA MD Oct 07, 2018 08:57
[2018-10-07] MEDS: AZTREONAM 2 GM in SOD CHLORIDE 0.9% 100 ML IVPB SCH (09:40)
--- NOTE | 2018-10-07 10:43 | CONS ---
Consult Date/Type/Reason Admit Date/Time Oct 06, 2018 at 09:29 Initial Consult Date 10/06/18 Type of Consult Pulmonary Requesting Provider: MANUEL ALEMAN Date/Time of Note DATE: 10/07/18 TIME: 10:40 Subjective Patient remains intubated on mechanical ventilation. Withdraws to pain but not following commands continues Levophed and heparin Objective Vital Signs Date Temp Pulse Resp B/P (MAP) Pulse Ox O2 O2 Flow FiO2 Time Delivery Rate 10/07/18 106 28 99 30 09:23 10/07/18 91/66 (74) Mechanical 07:00 Ventilator 10/07/18 98.3 04:00 10/06/18 15.0 08:15 Intake and Output 10/06/18 10/06/18 10/07/18 1515:00 23:00 07:00 IntakeIntake Total 1361.625 ml 140.510 ml 184.37 ml OutputOutput Total 225 ml 140 ml BalanceBalance 1361.625 ml -84.490 ml 44.37 ml Exam Elderly lady orally intubated on mechanical ventilation VITAL SIGNS: per chart NECK: Supple. No JVD or lymphadenopathy. CARDIAC EXAM: S1, S2. No added sounds or murmurs. CHEST: Diminished air entry bilaterally ABDOMEN: Soft, nontender. No guarding or rebound. EXTREMITIES: No cyanosis, clubbing or edema. NEUROLOGIC: Generalized weakness. No focal deficits. Vent Setting Ventilator Support Mode: AC Fraction of Inspired Oxygen pe: 30 Positive End Expiratory Pressu: 5.0 Results/Medications Result Diagram: 10/07/18 0415 10/07/18 0415 Results 24 hrs Laboratory Tests Test 10/06/18 10:41 10/06/18 13:08 10/06/18 15:23 10/06/18 17:27 Lactic Acid Level 1.5 1.7 1.8 White Blood Count 13.1 H Red Blood Count 3.18 L Hemoglobin 10.2 L Hematocrit 30.4 L Mean Corpuscular 95.6 Volume Mean Corpuscular 32.1 Hemoglobin Mean Corpuscular 33.6 Hemoglobin Concent Red Cell 14.5 Distribution Width Platelet Count 165 Mean Platelet 12.1 H Volume Immature 14.700 H Granulocytes % Neutrophils % Segmented 53 Neutrophils % (Manual) Band Neutrophils % 29 H (Manual) Lymphocytes % Lymphocytes % 4 L (Manual) Reactive 2 H Lymphocytes % (Manual) Monocytes % Monocytes % 6 (Manual) Eosinophils % Basophils % Metamyelocytes % 2 H (manual) Myelocytes % 2 H (Manual) Promyelocytes % 2 H (Manual) Nucleated Red 0.2 H Blood Cells % Immature 1.920 H Granulocytes # Neutrophils # Neutrophils # 7.4 (Manual) Band Neutrophils # 3.7 H Lymphocytes 0.5 L (Manual) Lymphocytes # Reactive 0.2 H Lymphocytes # Monocytes # Monocytes # 0.7 (Manual) Eosinophils # Basophils # Metamyelocytes # 0.2 H Myelocytes # 0.2 H Promyelocytes # 0.2 H Nucleated Red Blood Cells # Toxic Granulation 2+ Platelet Estimate DECREASED Giant Platelets 2 H Polychromasia 1+ Poikilocytosis 2+ Anisocytosis 1+ Macrocytosis 1+ Target Cells 1+ Tear Drop Cells 1+ Ovalocytes 1+ Prothrombin Time 16.9 H Prothrombin Time 1.3 Ratio INR International 1.36 Normalized Ratio Activated 32.[address] Time Troponin I 4.300 *H 4.060 *H Creatine Kinase 194 Creatine Kinase 5.5 Index Creatinine Kinase 10.60 H MB (Mass) Test 10/06/18 19:53 10/06/18 21:58 10/07/18 01:55 10/07/18 04:15 Activated 65.3 H 49.2 H 56.[address] Time Potassium Level 3.8 3.9 Lactic Acid Level 1.6 1.5 Magnesium Level 2.9 H 2.9 H White Blood Count 15.2 H Red Blood Count 3.05 L Hemoglobin 9.7 L Hematocrit 28.1 L Mean Corpuscular 92.1 Volume Mean Corpuscular 31.8 Hemoglobin Mean Corpuscular 34.5 Hemoglobin Concent Red Cell 14.4 Distribution Width Platelet Count 170 Mean Platelet 12.5 H Volume Immature 4.800 H Granulocytes % Neutrophils % Segmented 57 Neutrophils % (Manual) Band Neutrophils % 25 H (Manual) Lymphocytes % Lymphocytes % 7 L (Manual) Monocytes % Monocytes % 10 (Manual) Eosinophils % Eosinophils % 1 (Manual) Basophils % Nucleated Red 0.1 H Blood Cells % Immature 0.730 H Granulocytes # Neutrophils # Neutrophils # 9.2 H (Manual) Band Neutrophils # 3.8 H Lymphocytes 1.0 (Manual) Lymphocytes # Monocytes # Monocytes # 1.5 H (Manual) Eosinophils # Basophils # Nucleated Red Blood Cells # Platelet Estimate NORMAL Giant Platelets 2 H Anisocytosis 1+ Macrocytosis 2+ Prothrombin Time 20.2 H Prothrombin Time 1.6 Ratio INR International 1.71 Normalized Ratio Sodium Level 137 Chloride Level 108 Carbon Dioxide 16 L Level Anion Gap 13 Blood Urea 102 H Nitrogen Creatinine 4.25 H Est Glomerular 10 L Filtrat Rate mL/min Glucose Level 114 Hemoglobin A1c 5.3 Uric Acid 9.4 H Calcium Level 8.8 Phosphorus Level 4.6 Total Bilirubin 0.0 L Direct Bilirubin 0.00 Indirect Bilirubin 0.0 Aspartate Amino 76 H Transf (AST/SGOT) Alanine 32 Aminotransferase ( ALT/SGPT) Alkaline 71 Phosphatase Creatine Kinase 94 Total Protein 6.4 Albumin 2.8 L Globulin 3.60 H Albumin/Globulin 0.77 Ratio Triglycerides 232 H Level Cholesterol Level 81 L LDL Cholesterol, 23 Calculated HDL Cholesterol 12 L Cholesterol/HDL 6.7 Ratio Thyroid 0.264 L Stimulating Hormone (TSH) Test 10/07/18 05:00 10/07/18 08:05 Blood Gas Specimen Blood arterial Source Arterial Blood 10/07/2018 4:50:49 Date Drawn AM Arterial Blood pH 7.400 (Temp corrected) Arterial Blood 21.4 L pCO2 (Temp correct) Arterial Blood pO2 190.8 H (Temp corrected) Arterial Blood 13.0 L HCO3 Arterial Blood -10.1 L Base Excess Arterial Blood 99.3 H Oxygen Saturation Greg Test ACCEPTAB Arterial Blood Gas Right Radial Puncture Site Arterial 0.3 Blood Carboxyhemog lobin Arterial Blood 0.3 Methemoglobin Blood Gas A-a O2 69.8 H Differential Oxyhemoglobin 98.7 Percent Blood Gas 37.0 Temperature Blood Gas 28.0 Respiration Rate Blood Gas Actual 28 Respiration Rate Blood Gas Modality VENT - AC FiO2 40.0 Blood Gas Tidal 450.0 Volume Blood Gas Low PEEP 5.0 Setting Blood Gas Notified UP Whom Blood Gas Notified 10/07/2018 5:41:15 Time AM Activated 59.[address] Time Medications Current Medications Norepinephrine 250 ml @ 7.5 mls/hr ONCE STAT IV Last administered on 10/06/18at 06:45; Admin Dose 7.5 MLS/HR; Start 10/06/18 at 07:26; Stop 10/07/18 at 16:45 Fentanyl 100 ml @ 2.5 mls/hr TITRATE ONCE IV ; Start 10/06/18 at 08:30; Stop 10/08/18 at 00:29 IV Flush (NS 3 ml) 3 ml PER PROTOCOL IV ; Start 10/06/18 at 09:30 Ondansetron HCl (Zofran Inj) 4 mg Q6H PRN IV NAUSEA/VOMITING; Start 10/06/18 at 09:30 Acetaminophen (Tylenol Tab) 650 mg Q6H PRN PO .PAIN 1-3 OR TEMP; Start 10/06/18 at 09:30 Acetaminophen/ Hydrocodone Bitart ([place] (5/325)) 1 tab Q6H PRN PO .MOD PAIN 4- 6; Start 10/06/18 at 09:30 Morphine Sulfate (morphine) 2 mg Q4H PRN IV .SEVERE PAIN 7-10; Start 10/06/18 at 09:30 Docusate Sodium (Colace) 100 mg Q12H PRN PO .CONSTIPATION; Start 10/06/18 at 09:30 Magnesium Hydroxide (Milk Of Mag) 30 ml DAILY PRN PO .CONSTIPATION; Start 10/06/18 at 09:30 Lorazepam (Ativan) 0.5 mg Q6H PRN IV ANXIETY; Start 10/06/18 at 09:30 Albuterol/ Ipratropium (Duoneb) 3 ml Q4H RESP THERAPY PRN HHN SHORTNESS OF BREATH; Start 10/06/18 at 09:30 Nitroglycerin (Nitroglycerin (Sl Tab) 0.4 Mg) 1 tab Q5M PRN SL ANGINA; Start 10/06/18 at 09:30 Bisacodyl (Dulcolax) 10 mg DAILY PRN PO CONSTIPATION; Start 10/06/18 at 09:30 Divalproex Sodium (Depakote) 500 mg BID PO Last administered on 10/07/18at 08:40; Admin Dose 500 MG; Start 10/06/18 at 21:00 Donepezil HCl (Aricept) 5 mg QHS PO Last administered on 10/07/18at 00:54; Admin Dose 5 MG; Start 10/06/18 at 21:00 Lactulose (Enulose) 20 gm TID PRN PO CONSTIPATION; Start 10/06/18 at 09:30 Levetiracetam (Keppra) 500 mg BID PO Last administered on 10/07/18at 08:40; Admin Dose 500 MG; Start 10/06/18 at 21:00 Levothyroxine Sodium (Synthroid) 50 mcg BEFORE BREAKFAST PO Last administered on 10/07/18 06:26; Admin Dose 50 MCG; Start 10/07/18 at 07:00 Mineral Oil (Fleet Mineral Oil Enema) 133 ml DAILY PRN [place] CONSTIPATION; Start 10/06/18 at 09:30 Multivitamins Therapeutic (Theragran) 1 tab DAILY PO Last administered on 10/07/18 08:40; Admin Dose 1 TAB; Start 10/07/18 at 09:00 Polyethylene Glycol (Miralax) 17 gm BID PO Last administered on 10/07/18 08:40; Admin Dose 17 GM; Start 10/06/18 at 21:00 Famotidine (Pepcid Iv) 20 mg DAILY IV Last administered on 10/07/18 08:40; Admin Dose 20 MG; Start 10/06/18 at 11:00 Norepinephrine 32 mg/Dextrose 250 ml @ 0.47 mls/hr TITRATE IV Last administered on 10/06/18 17:32; Admin Dose 4.69 MLS/HR; Start 10/06/18 at 11:30 Aztreonam 2 gm/ Sodium Chloride 100 ml @ 100 mls/hr Q12 IVPB Last administered on 10/07/18 09:40; Admin Dose 100 MLS/HR; Start 10/06/18 at 14:00 Aspirin (Aspirin) 81 mg DAILY NGT Last administered on 10/07/18 08:40; Admin Dose 81 MG; Start 10/06/18 at 12:30 Heparin Sodium (Porcine) (Heparin (1000 Units/ml)) 4,000 unit PER PROTOCOL PRN IV aPTT<47; Start 10/06/18 at 12:30 Heparin Sodium (Porcine) 250 ml @ 8 mls/hr PER PROTOCOL IV Last administered on 10/06/18 13:44; Admin Dose 8 MLS/HR; Start 10/06/18 at 12:30 Atorvastatin Calcium (Lipitor) 40 mg DAILY@21 NGT Last administered on 10/07/18 00:54; Admin Dose 40 MG; Start 10/06/18 at 21:00 Miscellaneous Information (Flu Vaccine Previously Dispensed) FLU VACCINE PREVIOU... NOTE PRN XX NOTE; Start 10/06/18 at 18:00 Assessment/Plan Hospital Course (Demo Recall) IMP: 1. Septic Shock: likely due to urosepsis 2. Respiratory Failure 2/2 #1 3. UMBERTO-- pre-renal vs. ATN 2/2 #1 4. NSTEMI: type II 5. Afib with RVR--now in SR 6. Hypothyroidism RECS: 1. IVF's with LR boluses 2. Follow lactate clearance 3. CVP 4. ECHO 5. Serial TnI 6. Abx 7. D/C vanco 8. D/C cardizem gtt; can use amiodarone, if needed 9. Vent--> increase rate to 28; VT 450, CPAP weaning trial tomorrow if clinically improved 10. Heparin gtt; ASA; statin 11. Cards consult 12. Urine lytes 13. Pressors to MAP >65 mm Hg 14 start tube feeding Critical care time 40 minutes Attempt to contact next of kin regarding goals of care PETER ARAUZ MD, [facility] Oct 07, 2018 10:43
--- NOTE | 2018-10-07 10:50 | CONS ---
Assessment/Plan Assessment/Plan Hospital Course (Demo Recall) IMP: 1. Nstemi- in setting of renal failure and shock. Slowly decreasing 2.Shock-on levo 3.Tachycardia-S tach at this time 4.UTI 5.PAF with RVR-now in SR/ST 6.Renal failure 7.Dyslipidemia 8.Sz d/o 9. Hypothyroid Recc: -ICU -wean pressors as tolerated -Follow rhythm and rate closely -Continue asa/heparin and trend cardiac enzymes -Contineu abx's and f/u cx data -Continue statin Consultation Date/Type/Reason Admit Date/Time Oct 06, 2018 at 09:29 Initial Consult Date 10/06/18 Type of Consult Cardiology Reason for Consultation AF Requesting Provider: MANUEL ALEMAN Date/Time of Note DATE: 10/07/18 TIME: 10:44 Exam/Review of Systems Vital Signs Vitals Vital Signs Date Temp Pulse Resp B/P (MAP) Pulse Ox O2 O2 Flow FiO2 Time Delivery Rate 10/07/18 106 28 99 30 09:23 10/07/18 91/66 (74) Mechanical 07:00 Ventilator 10/07/18 98.3 04:00 10/06/18 15.0 08:15 Intake and Output 10/06/18 10/06/18 10/07/18 1515:00 23:00 07:00 IntakeIntake Total 1361.625 ml 140.510 ml 184.37 ml OutputOutput Total 225 ml 140 ml BalanceBalance 1361.625 ml -84.490 ml 44.37 ml Exam Exam Review of Systems: CONSTITUTIONAL: No fevers, chills. PULMONARY:intubated CARDIOVASCULAR: No obvious chest pain/palpitations GASTROINTESTINAL: No nausea/vomiting. GENITOURINARY: No hematuria/dysuria. MUSCULOSKELETAL: No obvious myagias/arthalgias. PSYCHIATRIC: The patient denies depression. NEUROLOGIC: No weakness Constitutional: other (sedated) Psych: no complaints Head: normocephalic ENMT: intubated Neck: supple, jvd (9 cm water) Respiratory: diminished breath sounds Cardiovascular: other (tachycardic, regular rhythm) Gastrointestinal: soft, non-tender Musculoskeletal: muscle tone (normal) Extremities: edema (trace/B) Neurological: other (sedated) Labs Result Diagram: 10/07/18 0415 10/07/18414 Results 24hrs Laboratory Tests Test 10/06/18 13:08 10/06/18 15:23 10/06/18 17:27 10/06/18 19:53 White Blood Count 13.1 H Red Blood Count 3.18 L Hemoglobin 10.2 L Hematocrit 30.4 L Mean Corpuscular 95.6 Volume Mean Corpuscular 32.1 Hemoglobin Mean Corpuscular 33.6 Hemoglobin Concent Red Cell 14.5 Distribution Width Platelet Count 165 Mean Platelet 12.1 H Volume Immature 14.700 H Granulocytes % Neutrophils % Segmented 53 Neutrophils % (Manual) Band Neutrophils % 29 H (Manual) Lymphocytes % Lymphocytes % 4 L (Manual) Reactive 2 H Lymphocytes % (Manual) Monocytes % Monocytes % 6 (Manual) Eosinophils % Basophils % Metamyelocytes % 2 H (manual) Myelocytes % 2 H (Manual) Promyelocytes % 2 H (Manual) Nucleated Red 0.2 H Blood Cells % Immature 1.920 H Granulocytes # Neutrophils # Neutrophils # 7.4 (Manual) Band Neutrophils # 3.7 H Lymphocytes 0.5 L (Manual) Lymphocytes # Reactive 0.2 H Lymphocytes # Monocytes # Monocytes # 0.7 (Manual) Eosinophils # Basophils # Metamyelocytes # 0.2 H Myelocytes # 0.2 H Promyelocytes # 0.2 H Nucleated Red Blood Cells # Toxic Granulation 2+ Platelet Estimate DECREASED Giant Platelets 2 H Polychromasia 1+ Poikilocytosis 2+ Anisocytosis 1+ Macrocytosis 1+ Target Cells 1+ Tear Drop Cells 1+ Ovalocytes 1+ Prothrombin Time 16.9 H Prothrombin Time 1.3 Ratio INR International 1.36 Normalized Ratio Activated 32.0 65[address] Time Lactic Acid Level 1.7 1.8 Troponin I 4.300 *H 4.060 *H Creatine Kinase 194 Creatine Kinase 5.5 Index Creatinine Kinase 10.60 H MB (Mass) Test 10/06/18 21:58 10/07/18 01:55 10/07/18 04:15 10/07/18 05:00 Potassium Level 3.8 3.9 Lactic Acid Level 1.6 1.5 Magnesium Level 2.9 H 2.9 H Activated 49.2 H 56.[address] Time White Blood Count 15.2 H Red Blood Count 3.05 L Hemoglobin 9.7 L Hematocrit 28.1 L Mean Corpuscular 92.1 Volume Mean Corpuscular 31.8 Hemoglobin Mean Corpuscular 34.5 Hemoglobin Concent Red Cell 14.4 Distribution Width Platelet Count 170 Mean Platelet 12.5 H Volume Immature 4.800 H Granulocytes % Neutrophils % Segmented 57 Neutrophils % (Manual) Band Neutrophils % 25 H (Manual) Lymphocytes % Lymphocytes % 7 L (Manual) Monocytes % Monocytes % 10 (Manual) Eosinophils % Eosinophils % 1 (Manual) Basophils % Nucleated Red 0.1 H Blood Cells % Immature 0.730 H Granulocytes # Neutrophils # Neutrophils # 9.2 H (Manual) Band Neutrophils # 3.8 H Lymphocytes 1.0 (Manual) Lymphocytes # Monocytes # Monocytes # 1.5 H (Manual) Eosinophils # Basophils # Nucleated Red Blood Cells # Platelet Estimate NORMAL Giant Platelets 2 H Anisocytosis 1+ Macrocytosis 2+ Prothrombin Time 20.2 H Prothrombin Time 1.6 Ratio INR International 1.71 Normalized Ratio Sodium Level 137 Chloride Level 108 Carbon Dioxide 16 L Level Anion Gap 13 Blood Urea 102 H Nitrogen Creatinine 4.25 H Est Glomerular 10 L Filtrat Rate mL/min Glucose Level 114 Hemoglobin A1c 5.3 Uric Acid 9.4 H Calcium Level 8.8 Phosphorus Level 4.6 Total Bilirubin 0.0 L Direct Bilirubin 0.00 Indirect Bilirubin 0.0 Aspartate Amino 76 H Transf (AST/SGOT) Alanine 32 Aminotransferase ( ALT/SGPT) Alkaline 71 Phosphatase Creatine Kinase 94 Total Protein 6.4 Albumin 2.8 L Globulin 3.60 H Albumin/Globulin 0.77 Ratio Triglycerides 232 H Level Cholesterol Level 81 L LDL Cholesterol, 23 Calculated HDL Cholesterol 12 L Cholesterol/HDL 6.7 Ratio Thyroid 0.264 L Stimulating Hormone (TSH) Blood Gas Specimen Blood arterial Source Arterial Blood 10/07/2018 4:50:49 Date Drawn AM Arterial Blood pH 7.400 (Temp corrected) Arterial Blood 21.4 L pCO2 (Temp correct) Arterial Blood pO2 190.8 H (Temp corrected) Arterial Blood 13.0 L HCO3 Arterial Blood -10.1 L Base Excess Arterial Blood 99.3 H Oxygen Saturation Greg Test ACCEPTAB Arterial Blood Gas Right Radial Puncture Site Arterial 0.3 Blood Carboxyhemog lobin Arterial Blood 0.3 Methemoglobin Blood Gas A-a O2 69.8 H Differential Oxyhemoglobin 98.7 Percent Blood Gas 37.0 Temperature Blood Gas 28.0 Respiration Rate Blood Gas Actual 28 Respiration Rate Blood Gas Modality VENT - AC FiO2 40.0 Blood Gas Tidal 450.0 Volume Blood Gas Low PEEP 5.0 Setting Blood Gas Notified UP Whom Blood Gas Notified 10/07/2018 5:41:15 Time AM Test 10/07/18 08:05 Activated 59[address] Time Medications Medications Current Medications Norepinephrine 250 ml @ 7.5 mls/hr ONCE STAT IV Last administered on 10/06/18at 06:45; Admin Dose 7.5 MLS/HR; Start 10/06/18 at 07:26; Stop 10/07/18 at 16:45 Fentanyl 100 ml @ 2.5 mls/hr TITRATE ONCE IV ; Start 10/06/18 at 08:30; Stop 10/08/18 at 00:29 IV Flush (NS 3 ml) 3 ml PER PROTOCOL IV ; Start 10/06/18 at 09:30 Ondansetron HCl (Zofran Inj) 4 mg Q6H PRN IV NAUSEA/VOMITING; Start 10/06/18 at 09:30 Acetaminophen (Tylenol Tab) 650 mg Q6H PRN PO .PAIN 1-3 OR TEMP; Start 10/06/18 at 09:30 Acetaminophen/ Hydrocodone Bitart ([place] (5/325)) 1 tab Q6H PRN PO .MOD PAIN 4- 6; Start 10/06/18 at 09:30 Morphine Sulfate (morphine) 2 mg Q4H PRN IV .SEVERE PAIN 7-10; Start 10/06/18 at 09:30 Docusate Sodium (Colace) 100 mg Q12H PRN PO .CONSTIPATION; Start 10/06/18 at 09:30 Magnesium Hydroxide (Milk Of Mag) 30 ml DAILY PRN PO .CONSTIPATION; Start 10/06/18 at 09:30 Lorazepam (Ativan) 0.5 mg Q6H PRN IV ANXIETY; Start 10/06/18 at 09:30 Albuterol/ Ipratropium (Duoneb) 3 ml Q4H RESP THERAPY PRN HHN SHORTNESS OF BREATH; Start 10/06/18 at 09:30 Nitroglycerin (Nitroglycerin (Sl Tab) 0.4 Mg) 1 tab Q5M PRN SL ANGINA; Start 10/06/18 at 09:30 Bisacodyl (Dulcolax) 10 mg DAILY PRN PO CONSTIPATION; Start 10/06/18 at 09:30 Divalproex Sodium (Depakote) 500 mg BID PO Last administered on 10/07/18 08:40; Admin Dose 500 MG; Start 10/06/18 at 21:00 Donepezil HCl (Aricept) 5 mg QHS PO Last administered on 10/07/18 00:54; Admin Dose 5 MG; Start 10/06/18 at 21:00 Lactulose (Enulose) 20 gm TID PRN PO CONSTIPATION; Start 10/06/18 at 09:30 Levetiracetam (Keppra) 500 mg BID PO Last administered on 10/07/18 08:40; Admin Dose 500 MG; Start 10/06/18 at 21:00 Levothyroxine Sodium (Synthroid) 50 mcg BEFORE BREAKFAST PO Last administered on 10/07/18 06:26; Admin Dose 50 MCG; Start 10/07/18 at 07:00 Mineral Oil (Fleet Mineral Oil Enema) 133 ml DAILY PRN [place] CONSTIPATION; Start 10/06/18 at 09:30 Multivitamins Therapeutic (Theragran) 1 tab DAILY PO Last administered on 10/07/18 08:40; Admin Dose 1 TAB; Start 10/07/18 at 09:00 Polyethylene Glycol (Miralax) 17 gm BID PO Last administered on 10/07/18 08:40; Admin Dose 17 GM; Start 10/06/18 at 21:00 Famotidine (Pepcid Iv) 20 mg DAILY IV Last administered on 10/07/18 08:40; Admin Dose 20 MG; Start 10/06/18 at 11:00 Norepinephrine 32 mg/Dextrose 250 ml @ 0.47 mls/hr TITRATE IV Last administered on 10/06/18 17:32; Admin Dose 4.69 MLS/HR; Start 10/06/18 at 11:30 Aztreonam 2 gm/ Sodium Chloride 100 ml @ 100 mls/hr Q12 IVPB Last administered on 10/07/18 09:40; Admin Dose 100 MLS/HR; Start 10/06/18 at 14:00 Aspirin (Aspirin) 81 mg DAILY NGT Last administered on 10/07/18 08:40; Admin Dose 81 MG; Start 10/06/18 at 12:30 Heparin Sodium (Porcine) (Heparin (1000 Units/ml)) 4,000 unit PER PROTOCOL PRN IV aPTT<47; Start 10/06/18 at 12:30 Heparin Sodium (Porcine) 250 ml @ 8 mls/hr PER PROTOCOL IV Last administered on 10/06/18at 13:44; Admin Dose 8 MLS/HR; Start 10/06/18 at 12:30 Atorvastatin Calcium (Lipitor) 40 mg DAILY@21 NGT Last administered on 10/07/18at 00:54; Admin Dose 40 MG; Start 10/06/18 at 21:00 Miscellaneous Information (Flu Vaccine Previously Dispensed) FLU VACCINE PREVIOU... NOTE PRN XX NOTE; Start 10/06/18 at 18:00 ANGELA CARY Oct 07, 2018 10:50
[2018-10-07] MEDS ORDERED: ALBUMIN HUMAN 25% 100 ML IV STA (11:33)
--- NOTE | 2018-10-07 11:33 | CONS ---
Assessment/Plan Assessment/Plan Assessment/Plan (Daily) 1. Non Oliguric Acute kidney injury due to ATN from septic shock 2. Septic shock due to UTI 3. acute UTI with Urine Cx growing Gram negative rods 4. Acute hypoxic respiratory failure intubated on ventilator 5. H/o HTN 6 H/o HL 7. H/o Hypothyroidism 8. Bacteremia with blood cx 2/2 growing gram negative rods Plan: pt remains intubated, BUN/Cr rising to 102/4.25, urine output dropping down, will give IV albumin 25% 100ml IV x 1 followed by NS 500 cc IV bolus x 1 follo wed by lasix 40mg IV x 1 dose d/w ID to hold off on vancomycin today Bacteremia with blood cx 2/2 growing gram negative rods - Urine cx growing Gram negative rods - d/christ aztreonam, strated on IV meropenem ,, Renally dose all abx and monitor electrolytes will follow up Consultation Date/Type/Reason Admit Date/Time Oct 06, 2018 at 09:29 Initial Consult Date 10/06/18 Type of Consult NEPHROLOGY Requesting Provider: MANUEL ALEMAN Date/Time of Note DATE: 10/07/18 TIME: 11:33 24 HR Interval Summary Free Text/Dictation pt remains intubated, BUN/Cr rising, urine output dropping down, BP Stable Exam/Review of Systems Exam Vitals Vital Signs Date Temp Pulse Resp B/P (MAP) Pulse Ox O2 O2 Flow FiO2 Time Delivery Rate 10/07/18 110 29 100 30 11:15 10/07/18 95/58 (70) Mechanical 11:00 Ventilator 10/07/18 99.9 08:00 10/06/18 15.0 08:15 Intake and Output 10/06/18 10/06/18 10/07/18 1515:00 23:00 07:00 IntakeIntake Total 1361.625 ml 140.510 ml 196.68 ml OutputOutput Total 225 ml 150 ml BalanceBalance 1361.625 ml -84.490 ml 46.68 ml Exam Constitutional: non-verbal, other (Intuabted, on ventilator ) Respiratory: congested cough, crackles/rales, diminished breath sounds Cardiovascular: nl pulses, irregular rhythm Gastrointestinal: soft, non-tender Musculoskeletal: swelling Neurological: other (sedated on ventilator ) Results Result Diagram: 10/07/18 0415 10/07/18 0415 Results 24hrs Laboratory Tests Test 10/06/18 13:08 10/06/18 15:23 10/06/18 17:27 10/06/18 19:53 White Blood Count 13.1 H Red Blood Count 3.18 L Hemoglobin 10.2 L Hematocrit 30.4 L Mean Corpuscular 95.6 Volume Mean Corpuscular 32.1 Hemoglobin Mean Corpuscular 33.6 Hemoglobin Concent Red Cell 14.5 Distribution Width Platelet Count 165 Mean Platelet 12.1 H Volume Immature 14.700 H Granulocytes % Neutrophils % Segmented 53 Neutrophils % (Manual) Band Neutrophils % 29 H (Manual) Lymphocytes % Lymphocytes % 4 L (Manual) Reactive 2 H Lymphocytes % (Manual) Monocytes % Monocytes % 6 (Manual) Eosinophils % Basophils % Metamyelocytes % 2 H (manual) Myelocytes % 2 H (Manual) Promyelocytes % 2 H (Manual) Nucleated Red 0.2 H Blood Cells % Immature 1.920 H Granulocytes # Neutrophils # Neutrophils # 7.4 (Manual) Band Neutrophils # 3.7 H Lymphocytes 0.5 L (Manual) Lymphocytes # Reactive 0.2 H Lymphocytes # Monocytes # Monocytes # 0.7 (Manual) Eosinophils # Basophils # Metamyelocytes # 0.2 H Myelocytes # 0.2 H Promyelocytes # 0.2 H Nucleated Red Blood Cells # Toxic Granulation 2+ Platelet Estimate DECREASED Giant Platelets 2 H Polychromasia 1+ Poikilocytosis 2+ Anisocytosis 1+ Macrocytosis 1+ Target Cells 1+ Tear Drop Cells 1+ Ovalocytes 1+ Prothrombin Time 16.9 H Prothrombin Time 1.3 Ratio INR International 1.36 Normalized Ratio Activated 32.0 65.[address] Time Lactic Acid Level 1.7 1.8 Troponin I 4.300 *H 4.060 *H Creatine Kinase 194 Creatine Kinase 5.5 Index Creatinine Kinase 10.60 H MB (Mass) Test 10/06/18 21:58 10/07/18 01:55 10/07/18 04:15 10/07/18 05:00 Potassium Level 3.8 3.9 Lactic Acid Level 1.6 1.5 Magnesium Level 2.9 H 2.9 H Activated 49.2 H 56.[address] Time White Blood Count 15.2 H Red Blood Count 3.05 L Hemoglobin 9.7 L Hematocrit 28.1 L Mean Corpuscular 92.1 Volume Mean Corpuscular 31.8 Hemoglobin Mean Corpuscular 34.5 Hemoglobin Concent Red Cell 14.4 Distribution Width Platelet Count 170 Mean Platelet 12.5 H Volume Immature 4.800 H Granulocytes % Neutrophils % Segmented 57 Neutrophils % (Manual) Band Neutrophils % 25 H (Manual) Lymphocytes % Lymphocytes % 7 L (Manual) Monocytes % Monocytes % 10 (Manual) Eosinophils % Eosinophils % 1 (Manual) Basophils % Nucleated Red 0.1 H Blood Cells % Immature 0.730 H Granulocytes # Neutrophils # Neutrophils # 9.2 H (Manual) Band Neutrophils # 3.8 H Lymphocytes 1.0 (Manual) Lymphocytes # Monocytes # Monocytes # 1.5 H (Manual) Eosinophils # Basophils # Nucleated Red Blood Cells # Platelet Estimate NORMAL Giant Platelets 2 H Anisocytosis 1+ Macrocytosis 2+ Prothrombin Time 20.2 H Prothrombin Time 1.6 Ratio INR International 1.71 Normalized Ratio Sodium Level 137 Chloride Level 108 Carbon Dioxide 16 L Level Anion Gap 13 Blood Urea 102 H Nitrogen Creatinine 4.25 H Est Glomerular 10 L Filtrat Rate mL/min Glucose Level 114 Hemoglobin A1c 5.3 Uric Acid 9.4 H Calcium Level 8.8 Phosphorus Level 4.6 Total Bilirubin 0.0 L Direct Bilirubin 0.00 Indirect Bilirubin 0.0 Aspartate Amino 76 H Transf (AST/SGOT) Alanine 32 Aminotransferase ( ALT/SGPT) Alkaline 71 Phosphatase Creatine Kinase 94 Total Protein 6.4 Albumin 2.8 L Globulin 3.60 H Albumin/Globulin 0.77 Ratio Triglycerides 232 H Level Cholesterol Level 81 L LDL Cholesterol, 23 Calculated HDL Cholesterol 12 L Cholesterol/HDL 6.7 Ratio Thyroid 0.264 L Stimulating Hormone (TSH) Blood Gas Specimen Blood arterial Source Arterial Blood 10/07/2018 4:50:49 Date Drawn AM Arterial Blood pH 7.400 (Temp corrected) Arterial Blood 21.4 L pCO2 (Temp correct) Arterial Blood pO2 190.8 H (Temp corrected) Arterial Blood 13.0 L HCO3 Arterial Blood -10.1 L Base Excess Arterial Blood 99.3 H Oxygen Saturation Greg Test ACCEPTAB Arterial Blood Gas Right Radial Puncture Site Arterial 0.3 Blood Carboxyhemog lobin Arterial Blood 0.3 Methemoglobin Blood Gas A-a O2 69.8 H Differential Oxyhemoglobin 98.7 Percent Blood Gas 37.0 Temperature Blood Gas 28.0 Respiration Rate Blood Gas Actual 28 Respiration Rate Blood Gas Modality VENT - AC FiO2 40.0 Blood Gas Tidal 450.0 Volume Blood Gas Low PEEP 5.0 Setting Blood Gas Notified UP Whom Blood Gas Notified 10/07/2018 5:41:15 Time AM Test 10/07/18 08:05 Activated 59.[address] Time Medications Medication Current Medications Norepinephrine 250 ml @ 7.5 mls/hr ONCE STAT IV Last administered on 10/06/18at 06:45; Admin Dose 7.5 MLS/HR; Start 10/06/18 at 07:26; Stop 10/07/18 at 16:45 Fentanyl 100 ml @ 2.5 mls/hr TITRATE ONCE IV ; Start 10/06/18 at 08:30; Stop 10/08/18 at 00:29 IV Flush (NS 3 ml) 3 ml PER PROTOCOL IV ; Start 10/06/18 at 09:30 Ondansetron HCl (Zofran Inj) 4 mg Q6H PRN IV NAUSEA/VOMITING; Start 10/06/18 at 09:30 Acetaminophen (Tylenol Tab) 650 mg Q6H PRN PO .PAIN 1-3 OR TEMP; Start 10/06/18 at 09:30 Acetaminophen/ Hydrocodone Bitart ([place] (5/325)) 1 tab Q6H PRN PO .MOD PAIN 4- 6; Start 10/06/18 at 09:30 Morphine Sulfate (morphine) 2 mg Q4H PRN IV .SEVERE PAIN 7-10; Start 10/06/18 at 09:30 Docusate Sodium (Colace) 100 mg Q12H PRN PO .CONSTIPATION; Start 10/06/18 at 09:30 Magnesium Hydroxide (Milk Of Mag) 30 ml DAILY PRN PO .CONSTIPATION; Start 10/06/18 at 09:30 Lorazepam (Ativan) 0.5 mg Q6H PRN IV ANXIETY; Start 10/06/18 at 09:30 Albuterol/ Ipratropium (Duoneb) 3 ml Q4H RESP THERAPY PRN HHN SHORTNESS OF BREATH; Start 10/06/18 at 09:30 Nitroglycerin (Nitroglycerin (Sl Tab) 0.4 Mg) 1 tab Q5M PRN SL ANGINA; Start 10/06/18 at 09:30 Bisacodyl (Dulcolax) 10 mg DAILY PRN PO CONSTIPATION; Start 10/06/18 at 09:30 Divalproex Sodium (Depakote) 500 mg BID PO Last administered on 10/07/18 08:40; Admin Dose 500 MG; Start 10/06/18 at 21:00 Donepezil HCl (Aricept) 5 mg QHS PO Last administered on 10/07/18 00:54; Admin Dose 5 MG; Start 10/06/18 at 21:00 Lactulose (Enulose) 20 gm TID PRN PO CONSTIPATION; Start 10/06/18 at 09:30 Levetiracetam (Keppra) 500 mg BID PO Last administered on 10/07/18 08:40; Admin Dose 500 MG; Start 10/06/18 at 21:00 Levothyroxine Sodium (Synthroid) 50 mcg BEFORE BREAKFAST PO Last administered on 10/07/18 06:26; Admin Dose 50 MCG; Start 10/07/18 at 07:00 Mineral Oil (Fleet Mineral Oil Enema) 133 ml DAILY PRN [place] CONSTIPATION; Start 10/06/18 at 09:30 Multivitamins Therapeutic (Theragran) 1 tab DAILY PO Last administered on 10/07/18 08:40; Admin Dose 1 TAB; Start 10/07/18 at 09:00 Polyethylene Glycol (Miralax) 17 gm BID PO Last administered on 10/07/18 08:40; Admin Dose 17 GM; Start 10/06/18 at 21:00 Famotidine (Pepcid Iv) 20 mg DAILY IV Last administered on 10/07/18 08:40; Admin Dose 20 MG; Start 10/06/18 at 11:00 Norepinephrine 32 mg/Dextrose 250 ml @ 0.47 mls/hr TITRATE IV Last administered on 10/06/18 17:32; Admin Dose 4.69 MLS/HR; Start 10/06/18 at 11:30 Aztreonam 2 gm/ Sodium Chloride 100 ml @ 100 mls/hr Q12 IVPB Last administered on 10/07/18 09:40; Admin Dose 100 MLS/HR; Start 10/06/18 at 14:00 Aspirin (Aspirin) 81 mg DAILY NGT Last administered on 10/07/18 08:40; Admin Dose 81 MG; Start 10/06/18 at 12:30 Heparin Sodium (Porcine) (Heparin (1000 Units/ml)) 4,000 unit PER PROTOCOL PRN IV aPTT<47; Start 10/06/18 at 12:30 Heparin Sodium (Porcine) 250 ml @ 8 mls/hr PER PROTOCOL IV Last administered on 10/06/18at 13:44; Admin Dose 8 MLS/HR; Start 10/06/18 at 12:30 Atorvastatin Calcium (Lipitor) 40 mg DAILY@21 NGT Last administered on 10/07/18at 00:54; Admin Dose 40 MG; Start 10/06/18 at 21:00 Miscellaneous Information (Flu Vaccine Previously Dispensed) FLU VACCINE PREVIOU... NOTE PRN XX NOTE; Start 10/06/18 at 18:00 VALARIE BENNETT MD Oct 07, 2018 11:33
--- NOTE | 2018-10-07 11:37 | CONS ---
Assessment/Plan Assessment/Plan Hospital Course (Demo Recall) No acute changes overnight. Patient is intubated on Levophed drip and heparin drips tachycardic in no distress temperature 99.9 pulse 107 respirations 29 blood pressure 95/58 saturation 99 on vent WBC 15.2 H&H 9.7 and 28.1 platelets 170 bands 25 BUN 102 creatinine 4.25 Microbiology: Blood and urine culture growing gram-negative rods, influenza swab negative Indwelling: Endotracheal tube NG tube Piña catheter right IJ triple-lumen catheter Diagnostic: Chest x-ray this morning revealed no evidence of acute cardiopulmonary disease Allergy: Penicillin, clindamycin Antibiotics: Aztreonam, vancomycin Physical examination: Well-developed chronically ill-appearing elderly woman. The patient is in no distress. Head atraumatic normocephalic. Neck is supple. Chest rise symmetrical, breath sounds diminished bases. Heart: S1-S2, tachycardic, irregular. Abdomen soft bowel sounds hypoactive. Extremities mottled cyanotic Assessment: 1. Severe sepsis with shock 2. Gram-negative misti bacteremia secondary to urinary tract infection 3. Urinary tract infection 4. Acute possibly on chronic kidney disease 5. Non-ST elevation LA 6. Atrial fibrillation Plan: We are going to change antibiotics to meropenem, await for final cultures, follow renal, pulmonary, cardiology recommendations Consultation Date/Type/Reason Admit Date/Time Oct 06, 2018 at 09:29 Initial Consult Date 10/06/18 Type of Consult id Requesting Provider: MANUEL ALEMAN Date/Time of Note DATE: 10/07/18 TIME: 11:36 Exam/Review of Systems Exam Vitals Vital Signs Date Temp Pulse Resp B/P (MAP) Pulse Ox O2 O2 Flow FiO2 Time Delivery Rate 10/07/18 110 29 100 30 11:15 10/07/18 95/58 (70) Mechanical 11:00 Ventilator 10/07/18 99.9 08:00 10/06/18 15.0 08:15 Intake and Output 10/06/18 10/06/18 10/07/18 1515:00 23:00 07:00 IntakeIntake Total 1361.625 ml 140.510 ml 196.68 ml OutputOutput Total 225 ml 150 ml BalanceBalance 1361.625 ml -84.490 ml 46.68 ml Results Result Diagram: 10/07/18 0415 10/07/18 0415 Results 24hrs Laboratory Tests Test 10/06/18 13:08 10/06/18 15:23 10/06/18 17:27 10/06/18 19:53 White Blood Count 13.1 H Red Blood Count 3.18 L Hemoglobin 10.2 L Hematocrit 30.4 L Mean Corpuscular 95.6 Volume Mean Corpuscular 32.1 Hemoglobin Mean Corpuscular 33.6 Hemoglobin Concent Red Cell 14.5 Distribution Width Platelet Count 165 Mean Platelet 12.1 H Volume Immature 14.700 H Granulocytes % Neutrophils % Segmented 53 Neutrophils % (Manual) Band Neutrophils % 29 H (Manual) Lymphocytes % Lymphocytes % 4 L (Manual) Reactive 2 H Lymphocytes % (Manual) Monocytes % Monocytes % 6 (Manual) Eosinophils % Basophils % Metamyelocytes % 2 H (manual) Myelocytes % 2 H (Manual) Promyelocytes % 2 H (Manual) Nucleated Red 0.2 H Blood Cells % Immature 1.920 H Granulocytes # Neutrophils # Neutrophils # 7.4 (Manual) Band Neutrophils # 3.7 H Lymphocytes 0.5 L (Manual) Lymphocytes # Reactive 0.2 H Lymphocytes # Monocytes # Monocytes # 0.7 (Manual) Eosinophils # Basophils # Metamyelocytes # 0.2 H Myelocytes # 0.2 H Promyelocytes # 0.2 H Nucleated Red Blood Cells # Toxic Granulation 2+ Platelet Estimate DECREASED Giant Platelets 2 H Polychromasia 1+ Poikilocytosis 2+ Anisocytosis 1+ Macrocytosis 1+ Target Cells 1+ Tear Drop Cells 1+ Ovalocytes 1+ Prothrombin Time 16.9 H Prothrombin Time 1.3 Ratio INR International 1.36 Normalized Ratio Activated 32.0 65.[address] Time Lactic Acid Level 1.7 1.8 Troponin I 4.300 *H 4.060 *H Creatine Kinase 194 Creatine Kinase 5.5 Index Creatinine Kinase 10.60 H MB (Mass) Test 10/06/18 21:58 10/07/18 01:55 10/07/18 04:15 10/07/18 05:00 Potassium Level 3.8 3.9 Lactic Acid Level 1.6 1.5 Magnesium Level 2.9 H 2.9 H Activated 49.2 H 56.[address] Time White Blood Count 15.2 H Red Blood Count 3.05 L Hemoglobin 9.7 L Hematocrit 28.1 L Mean Corpuscular 92.1 Volume Mean Corpuscular 31.8 Hemoglobin Mean Corpuscular 34.5 Hemoglobin Concent Red Cell 14.4 Distribution Width Platelet Count 170 Mean Platelet 12.5 H Volume Immature 4.800 H Granulocytes % Neutrophils % Segmented 57 Neutrophils % (Manual) Band Neutrophils % 25 H (Manual) Lymphocytes % Lymphocytes % 7 L (Manual) Monocytes % Monocytes % 10 (Manual) Eosinophils % Eosinophils % 1 (Manual) Basophils % Nucleated Red 0.1 H Blood Cells % Immature 0.730 H Granulocytes # Neutrophils # Neutrophils # 9.2 H (Manual) Band Neutrophils # 3.8 H Lymphocytes 1.0 (Manual) Lymphocytes # Monocytes # Monocytes # 1.5 H (Manual) Eosinophils # Basophils # Nucleated Red Blood Cells # Platelet Estimate NORMAL Giant Platelets 2 H Anisocytosis 1+ Macrocytosis 2+ Prothrombin Time 20.2 H Prothrombin Time 1.6 Ratio INR International 1.71 Normalized Ratio Sodium Level 137 Chloride Level 108 Carbon Dioxide 16 L Level Anion Gap 13 Blood Urea 102 H Nitrogen Creatinine 4.25 H Est Glomerular 10 L Filtrat Rate mL/min Glucose Level 114 Hemoglobin A1c 5.3 Uric Acid 9.4 H Calcium Level 8.8 Phosphorus Level 4.6 Total Bilirubin 0.0 L Direct Bilirubin 0.00 Indirect Bilirubin 0.0 Aspartate Amino 76 H Transf (AST/SGOT) Alanine 32 Aminotransferase ( ALT/SGPT) Alkaline 71 Phosphatase Creatine Kinase 94 Total Protein 6.4 Albumin 2.8 L Globulin 3.60 H Albumin/Globulin 0.77 Ratio Triglycerides 232 H Level Cholesterol Level 81 L LDL Cholesterol, 23 Calculated HDL Cholesterol 12 L Cholesterol/HDL 6.7 Ratio Thyroid 0.264 L Stimulating Hormone (TSH) Blood Gas Specimen Blood arterial Source Arterial Blood 10/07/2018 4:50:49 Date Drawn AM Arterial Blood pH 7.400 (Temp corrected) Arterial Blood 21.4 L pCO2 (Temp correct) Arterial Blood pO2 190.8 H (Temp corrected) Arterial Blood 13.0 L HCO3 Arterial Blood -10.1 L Base Excess Arterial Blood 99.3 H Oxygen Saturation Greg Test ACCEPTAB Arterial Blood Gas Right Radial Puncture Site Arterial 0.3 Blood Carboxyhemog lobin Arterial Blood 0.3 Methemoglobin Blood Gas A-a O2 69.8 H Differential Oxyhemoglobin 98.7 Percent Blood Gas 37.0 Temperature Blood Gas 28.0 Respiration Rate Blood Gas Actual 28 Respiration Rate Blood Gas Modality VENT - AC FiO2 40.0 Blood Gas Tidal 450.0 Volume Blood Gas Low PEEP 5.0 Setting Blood Gas Notified UP Whom Blood Gas Notified 10/07/2018 5:41:15 Time AM Test 10/07/18 08:05 Activated 59.[address] Time Medications Medication Current Medications Norepinephrine 250 ml @ 7.5 mls/hr ONCE STAT IV Last administered on 10/06/18at 06:45; Admin Dose 7.5 MLS/HR; Start 10/06/18 at 07:26; Stop 10/07/18 at 16:45 Fentanyl 100 ml @ 2.5 mls/hr TITRATE ONCE IV ; Start 10/06/18 at 08:30; Stop 10/08/18 at 00:29 IV Flush (NS 3 ml) 3 ml PER PROTOCOL IV ; Start 10/06/18 at 09:30 Ondansetron HCl (Zofran Inj) 4 mg Q6H PRN IV NAUSEA/VOMITING; Start 10/06/18 at 09:30 Acetaminophen (Tylenol Tab) 650 mg Q6H PRN PO .PAIN 1-3 OR TEMP; Start 10/06/18 at 09:30 Acetaminophen/ Hydrocodone Bitart ([place] (5/325)) 1 tab Q6H PRN PO .MOD PAIN 4- 6; Start 10/06/18 at 09:30 Morphine Sulfate (morphine) 2 mg Q4H PRN IV .SEVERE PAIN 7-10; Start 10/06/18 at 09:30 Docusate Sodium (Colace) 100 mg Q12H PRN PO .CONSTIPATION; Start 10/06/18 at 09:30 Magnesium Hydroxide (Milk Of Mag) 30 ml DAILY PRN PO .CONSTIPATION; Start 10/06/18 at 09:30 Lorazepam (Ativan) 0.5 mg Q6H PRN IV ANXIETY; Start 10/06/18 at 09:30 Albuterol/ Ipratropium (Duoneb) 3 ml Q4H RESP THERAPY PRN HHN SHORTNESS OF BREATH; Start 10/06/18 at 09:30 Nitroglycerin (Nitroglycerin (Sl Tab) 0.4 Mg) 1 tab Q5M PRN SL ANGINA; Start 10/06/18 at 09:30 Bisacodyl (Dulcolax) 10 mg DAILY PRN PO CONSTIPATION; Start 10/06/18 at 09:30 Divalproex Sodium (Depakote) 500 mg BID PO Last administered on 10/07/18 08:40; Admin Dose 500 MG; Start 10/06/18 at 21:00 Donepezil HCl (Aricept) 5 mg QHS PO Last administered on 10/07/18 00:54; Admin Dose 5 MG; Start 10/06/18 at 21:00 Lactulose (Enulose) 20 gm TID PRN PO CONSTIPATION; Start 10/06/18 at 09:30 Levetiracetam (Keppra) 500 mg BID PO Last administered on 10/07/18 08:40; Admin Dose 500 MG; Start 10/06/18 at 21:00 Levothyroxine Sodium (Synthroid) 50 mcg BEFORE BREAKFAST PO Last administered on 10/07/18 06:26; Admin Dose 50 MCG; Start 10/07/18 at 07:00 Mineral Oil (Fleet Mineral Oil Enema) 133 ml DAILY PRN [place] CONSTIPATION; Start 10/06/18 at 09:30 Multivitamins Therapeutic (Theragran) 1 tab DAILY PO Last administered on 10/07/18 08:40; Admin Dose 1 TAB; Start 10/07/18 at 09:00 Polyethylene Glycol (Miralax) 17 gm BID PO Last administered on 10/07/18 08:40; Admin Dose 17 GM; Start 10/06/18 at 21:00 Famotidine (Pepcid Iv) 20 mg DAILY IV Last administered on 10/07/18 08:40; Admin Dose 20 MG; Start 10/06/18 at 11:00 Norepinephrine 32 mg/Dextrose 250 ml @ 0.47 mls/hr TITRATE IV Last administered on 10/06/18 17:32; Admin Dose 4.69 MLS/HR; Start 10/06/18 at 11:30 Aztreonam 2 gm/ Sodium Chloride 100 ml @ 100 mls/hr Q12 IVPB Last administered on 10/07/18 09:40; Admin Dose 100 MLS/HR; Start 10/06/18 at 14:00 Aspirin (Aspirin) 81 mg DAILY NGT Last administered on 10/07/18 08:40; Admin Dose 81 MG; Start 10/06/18 at 12:30 Heparin Sodium (Porcine) (Heparin (1000 Units/ml)) 4,000 unit PER PROTOCOL PRN IV aPTT<47; Start 10/06/18 at 12:30 Heparin Sodium (Porcine) 250 ml @ 8 mls/hr PER PROTOCOL IV Last administered on 10/06/18at 13:44; Admin Dose 8 MLS/HR; Start 10/06/18 at 12:30 Atorvastatin Calcium (Lipitor) 40 mg DAILY@21 NGT Last administered on 10/07/18at 00:54; Admin Dose 40 MG; Start 10/06/18 at 21:00 Miscellaneous Information (Flu Vaccine Previously Dispensed) FLU VACCINE PREVIOU... NOTE PRN XX NOTE; Start 10/06/18 at 18:00 MARKOS BRADY NP Oct 07, 2018 11:37
[2018-10-07] MEDS ORDERED: FUROSEMIDE 40 MG INJ IV ONE (12:00)
--- NOTE | 2018-10-07 14:11 | RADRPT ---
Echocardiogram Report Patient Name: SALIMA MARTINESPatient ID: [id number] : 1950 (67y 11m)Study Date: 10/06/2018 1:53:08 PM Gender: FAccession #: [id number] Tech: [facility] Location: Ref.Physician: MARICEL REDDY Height(Cm): 170 BSA: 1.79Weight(Kg): 68 Quality: AdequateAccount #: Procedures: Echocardiographic Report: Transthoracic echocardiogram with complete 2D, M-Mode, and doppler examination. Indications: NSTEMI. Measurements: 2D/M Mode Doppler Measurement Value Normal Range Measurement Value Normal Range LVIDd 2D 4.1 [ 3.8 - 5.2 ] cm AV Peak Eren 1.2 [ 100.0 - 170.0 ] cm/se c LVIDs 2D 2.9 [ 2.2 - 3.5 ] cm AV Peak PG 6.0 [ 2.0 - 9.0 ] mmHg LVPWd 2D 0.9 [ 0.6 - 0.9 ] cm LVOT Peak Eren 1.0 [ 70.0 - 110.0 ] cm/sec IVSd 2D 0.9 [ 0.6 - 0.9 ] cm LVOT Peak PG 4.0 [ 2.0 - 6.0 ] mmHg EDV 2D 75.5 [ 46.0 - 106.0 ] ml MV E Peak Eren 1.0 [ 60.0 - 130.0 ] cm/sec ESV 2D 33.3 [ 14.0 - 42.0 ] ml MV A Peak Eren 0.4 [ 100.0 - 120.0 ] cm/se c EF 2D 55.9 [ 54.0 - 74.0 ] percent MV E/A 2.4 [ 0.8 - 1.5 ] ratio LA Dimen 2D 4.3 [ 2.7 - 3.8 ] cm MV PHT 46.0 [ 20.0 - 100.0 ] msec MV Decel Time 156 [ 104 - 258 ] msec MV Decel [place] 6 Lat E` Eren 0.1 [ 10.0 - 15.0 ] cm/sec Lateral E/E` 10.5 [ 1.0 - 2.0 ] ratio Med E` Eren 0.1 cm/sec MV E/A 2.4 [ 0.8 - 1.5 ] ratio MVA PHT 4.8 [ 2.0 - 4.0 ] cm2 TR Peak Eren 2.3 [ 100.0 - 280.0 ] cm/se c TR Peak PG 22.0 mmHg PV Peak Eren 0.6 [ 40.0 - 80.0 ] cm/sec PV Peak PG 2.0 mmHg RVSP 30.0 [ 10.0 - 36.0 ] mmHg RA Pressure 8.0 mmHg Findings: Left Ventricle: Normal left ventricular systolic function. Normal left ventricular cavity size. Normal left ventricular wall thickness. Sigmoid septum. Ejection fraction is visually estimated at 60 %. Abnormal Diastolic Function, patient cannot Valsalva on ventilator. E/E'= 15. Right Ventricle: Normal right ventricular size. Normal right ventricular systolic function. Left Atrium: There is moderate enlargement of left atrium. Right Atrium: The right atrium is normal in size. Atrial Septum: Normal atrial septum. Mitral Valve: Normal appearance of the mitral valve. There is mild calcification noted on the chordal structures. Moderate mitral valve regurgitation. Aortic Valve: No significant aortic stenosis or insufficiency. Aortic sclerosis without significant stenosis. Trileaflet aortic valve. Tricuspid Valve: Normal appearance of the tricuspid valve. Estimated peak PA systolic pressure 30 mmHg. There is mild tricuspid regurgitation. Pulmonic Valve: Normal pulmonic valve appearance. There is trace pulmonic regurgitation. Pericardium: Normal pericardium with no significant pericardial effusion. Aorta: Normal aortic root. IVC: Dilated IVC without respiratory collapse, however, patient on ventilator. Pulmonary Artery: Normal pulmonary artery size. Conclusions: Normal left ventricular systolic function. Normal left ventricular cavity size. Normal left ventricular wall thickness. Sigmoid septum. Ejection fraction is visually estimated at 60 %. Abnormal Diastolic Function, patient cannot Valsalva on ventilator. E/E'= 15. There is moderate enlargement of left atrium. Normal appearance of the mitral valve. There is mild calcification noted on the chordal structures. Moderate mitral valve regurgitation. Normal appearance of the tricuspid valve. Estimated peak PA systolic pressure 30 mmHg. There is mild tricuspid regurgitation. Normal pulmonic valve appearance. There is trace pulmonic regurgitation. n. Electronically Signed By: Ed Callejas 2018-10-07 14:09:46 PST
[2018-10-07] MEDS: MEROPENEM 500MG/50 ML (PMX) 50 ML IVPB SCH ×2 (15:03→20:45)
[2018-10-07] MEDS ORDERED: AMIODARONE 200 ML IV SCH ×3 (16:00→16:30)
[2018-10-07] MEDS ORDERED: AMIODARONE 150MG/D5W BOLUS 100 ML IV ONE (16:30)
[2018-10-07] MEDS ORDERED: AMIODARONE 900 MG in DEXTROSE 5% 482 ML IV SCH (16:30)
[2018-10-07] MEDS: HEPARIN 25000 UNITS/250 ML 250 ML IV SCH (16:58)
[2018-10-07] MEDS: LORAZEPAM 2 MG INJ IV PRN (22:46)
[2018-10-08] VITALS (104 sets, daily range): BP systolic 74–187; BP diastolic 53–120; PULSE 100–172; RESP 17–36
[2018-10-08] MEDS: LORAZEPAM 2 MG INJ IV PRN ×2 (00:08→08:08)
[2018-10-08] MEDS ORDERED: POTASSIUM CHLORIDE 20 MEQ POWDER FOR ORAL SOLN PO ONE (08:00)
--- NOTE | 2018-10-08 08:06 | CONS ---
Consult Date/Type/Reason Admit Date/Time Oct 06, 2018 at 09:29 Initial Consult Date 10/06/18 Type of Consult Pulmonary Requesting Provider: MANUEL ALEMAN Date/Time of Note DATE: 10/08/18 TIME: 08:04 Subjective Remains tachypneic this morning. Continues vasopressor and amiodarone. Objective Vital Signs Date Temp Pulse Resp B/P (MAP) Pulse Ox O2 O2 Flow FiO2 Time Delivery Rate 10/08/18 168 33 123/76 100 07:30 (92) 10/08/18 Mechanical 07:00 Ventilator 10/08/18 30 05:30 10/08/18 98.2 04:00 10/06/18 15.0 08:15 Intake and Output 10/07/18 10/07/18 10/08/18 1414:59 22:59 06:59 IntakeIntake Total 665.31 ml 732.97 ml 667.705 ml OutputOutput Total 130 ml 560 ml 670 ml BalanceBalance 535.31 ml 172.97 ml -2.295 ml Exam Elderly lady orally intubated on mechanical ventilation VITAL SIGNS: per chart NECK: Supple. No JVD or lymphadenopathy. CARDIAC EXAM: S1, S2. No added sounds or murmurs. CHEST: Diminished air entry bilaterally ABDOMEN: Soft, nontender. No guarding or rebound. EXTREMITIES: No cyanosis, clubbing or edema. NEUROLOGIC: Generalized weakness. No focal deficits. Vent Setting Ventilator Support Mode: AC Fraction of Inspired Oxygen pe: 30 Positive End Expiratory Pressu: 5.0 Results/Medications Result Diagram: 10/08/18 0450 10/08/18 0450 Results 24 hrs Laboratory Tests Test 10/07/18 08:05 10/07/18 15:52 10/07/18 22:54 10/08/18 04:50 Activated 59.2 H 82.5 *H 64.0 H 62.[address] Time White Blood Count 16.6 H Red Blood Count 2.89 L Hemoglobin 9.2 L Hematocrit 26.1 L Mean Corpuscular 90.3 Volume Mean Corpuscular 31.8 Hemoglobin Mean Corpuscular 35.2 Hemoglobin Concent Red Cell 14.4 Distribution Width Platelet Count 192 Mean Platelet 12.1 H Volume Immature 4.000 H Granulocytes % Neutrophils % Lymphocytes % Monocytes % Eosinophils % Basophils % Nucleated Red 0.0 Blood Cells % Immature 0.670 H Granulocytes # Neutrophils # Lymphocytes # Monocytes # Eosinophils # Basophils # Nucleated Red Blood Cells # Sodium Level 138 Potassium Level 3.2 L Chloride Level 107 Carbon Dioxide 14 L Level Anion Gap 17 H Blood Urea 110 H Nitrogen Creatinine 3.88 H Est Glomerular 12 L Filtrat Rate mL/min Glucose Level 132 Calcium Level 8.8 Test 10/08/18 07:00 Blood Gas Specimen Blood arterial Source Arterial Blood 10/08/2018 6:59:34 Date Drawn AM Arterial Blood pH 7.470 H (Temp corrected) Arterial Blood 20.5 L pCO2 (Temp correct) Arterial Blood pO2 113.8 H (Temp corrected) Arterial Blood 14.6 L HCO3 Arterial Blood -7.3 L Base Excess Arterial Blood 98.1 H Oxygen Saturation Greg Test ACCEPTAB Arterial Blood Gas Right Radial Puncture Site Arterial 0.3 Blood Carboxyhemog lobin Arterial Blood 0.2 Methemoglobin Blood Gas A-a O2 76.0 H Differential Oxyhemoglobin 97.6 Percent Blood Gas 37.0 Temperature Blood Gas Actual 28 Respiration Rate Blood Gas Modality VENT - AC FiO2 30.0 Blood Gas Tidal 450.0 Volume Blood Gas High 33.0 PEEP Setting Blood Gas Low PEEP 5.0 Setting Blood Gas Notified TM Whom Blood Gas Notified 10/08/2018 7:13:10 Time AM Medications Current Medications IV Flush (NS 3 ml) 3 ml PER PROTOCOL IV ; Start 10/06/18 at 09:30 Ondansetron HCl (Zofran Inj) 4 mg Q6H PRN IV NAUSEA/VOMITING; Start 10/06/18 at 09:30 Acetaminophen (Tylenol Tab) 650 mg Q6H PRN PO .PAIN 1-3 OR TEMP; Start 10/06/18 at 09:30 Acetaminophen/ Hydrocodone Bitart ([place] (5/325)) 1 tab Q6H PRN PO .MOD PAIN 4- 6; Start 10/06/18 at 09:30 Morphine Sulfate (morphine) 2 mg Q4H PRN IV .SEVERE PAIN 7-10; Start 10/06/18 at 09:30 Docusate Sodium (Colace) 100 mg Q12H PRN PO .CONSTIPATION; Start 10/06/18 at 09:30 Magnesium Hydroxide (Milk Of Mag) 30 ml DAILY PRN PO .CONSTIPATION; Start 10/06/18 at 09:30 Lorazepam (Ativan) 0.5 mg Q6H PRN IV ANXIETY Last administered on 10/08/18 00:08; Admin Dose 0.5 MG; Start 10/06/18 at 09:30 Albuterol/ Ipratropium (Duoneb) 3 ml Q4H RESP THERAPY PRN HHN SHORTNESS OF BREATH; Start 10/06/18 at 09:30 Nitroglycerin (Nitroglycerin (Sl Tab) 0.4 Mg) 1 tab Q5M PRN SL ANGINA; Start 10/06/18 at 09:30 Bisacodyl (Dulcolax) 10 mg DAILY PRN PO CONSTIPATION; Start 10/06/18 at 09:30 Divalproex Sodium (Depakote) 500 mg BID PO Last administered on 10/07/18 20:45; Admin Dose 500 MG; Start 10/06/18 at 21:00 Donepezil HCl (Aricept) 5 mg QHS PO Last administered on 10/07/18 20:46; Admin Dose 5 MG; Start 10/06/18 at 21:00 Lactulose (Enulose) 20 gm TID PRN PO CONSTIPATION; Start 10/06/18 at 09:30 Levetiracetam (Keppra) 500 mg BID PO Last administered on 10/07/18 20:46; Admin Dose 500 MG; Start 10/06/18 at 21:00 Levothyroxine Sodium (Synthroid) 50 mcg BEFORE BREAKFAST PO Last administered on 10/07/18 06:26; Admin Dose 50 MCG; Start 10/07/18 at 07:00 Mineral Oil (Fleet Mineral Oil Enema) 133 ml DAILY PRN [place] CONSTIPATION; Start 10/06/18 at 09:30 Multivitamins Therapeutic (Theragran) 1 tab DAILY PO Last administered on 10/07/18 08:40; Admin Dose 1 TAB; Start 10/07/18 at 09:00 Polyethylene Glycol (Miralax) 17 gm BID PO Last administered on 10/07/18 20:46; Admin Dose 17 GM; Start 10/06/18 at 21:00 Famotidine (Pepcid Iv) 20 mg DAILY IV Last administered on 10/07/18 08:40; Admin Dose 20 MG; Start 10/06/18 at 11:00 Norepinephrine 32 mg/Dextrose 250 ml @ 0.47 mls/hr TITRATE IV Last administered on 10/06/18 17:32; Admin Dose 4.69 MLS/HR; Start 10/06/18 at 11:30 Aspirin (Aspirin) 81 mg DAILY NGT Last administered on 10/07/18 08:40; Admin Dose 81 MG; Start 10/06/18 at 12:30 Heparin Sodium (Porcine) (Heparin (1000 Units/ml)) 4,000 unit PER PROTOCOL PRN IV aPTT<47; Start 10/06/18 at 12:30 Heparin Sodium (Porcine) 250 ml @ 8 mls/hr PER PROTOCOL IV Last administered on 10/07/18 16:58; Admin Dose 8.8 MLS/HR; Start 10/06/18 at 12:30 Atorvastatin Calcium (Lipitor) 40 mg DAILY@21 NGT Last administered on 10/07/18 20:45; Admin Dose 40 MG; Start 10/06/18 at 21:00 Miscellaneous Information (Flu Vaccine Previously Dispensed) FLU VACCINE PREVIOU... NOTE PRN XX NOTE; Start 10/06/18 at 18:00 Meropenem/Sodium Chloride 50 ml @ 100 mls/hr Q12 IVPB Last administered on 10/07/18 20:45; Admin Dose 100 MLS/HR; Start 10/07/18 at 12:00 Amiodarone HCl 900 mg/Dextrose 500 ml @ 0 mls/hr Q0M IV Last administered on 10/07/18 16:59; Admin Dose 33.3 MLS/HR; Start 10/07/18 at 16:30 Assessment/Plan Hospital Course (Demo Recall) IMP: 1. Septic Shock: likely due to urosepsis 2. Respiratory Failure 2/2 #1 3. UMBERTO-- pre-renal vs. ATN 2/2 #1 4. NSTEMI: type II 5. Afib with RVR--now in SR 6. Hypothyroidism RECS: 1. IVF's with LR boluses 2. Follow lactate clearance 3. CVP 4. ECHO 5. Serial TnI 6. Abx 7. Aspiration precautions 8. Continue amiodarone for rate control 9. Vent--> increase rate to 28; VT 450, not stable for CPAP weaning trial 10. Heparin gtt; ASA; statin 11. Cards consult 12. Urine lytes 13. Pressors to MAP >65 mm Hg 14 continue tube feeding 15. sedation and pain control Critical care time 40 minutes Attempt to contact next of kin regarding goals of care PETER ARAUZ MD, [facility] Oct 08, 2018 08:06
[2018-10-08] MEDS: POLYETHYLENE GLYCOL 17 GM PACKET PO SCH ×2 (08:14→21:51)
[2018-10-08] MEDS: LEVETIRACETAM 500 MG TAB PO SCH ×2 (08:14→21:51)
[2018-10-08] MEDS: DIVALPROEX (EC) 500 MG TAB PO SCH ×2 (08:14→21:50)
[2018-10-08] MEDS: MULTIVITAMINS THERAPEUTIC TAB PO SCH (08:14)
[2018-10-08] MEDS: LEVOTHYROXINE 50 MCG TAB PO SCH (08:14)
[2018-10-08] MEDS: MEROPENEM 500MG/50 ML (PMX) 50 ML IVPB SCH ×2 (08:54→21:48)
[2018-10-08] MEDS: ASPIRIN 81 MG TAB NGT SCH (08:55)
[2018-10-08] MEDS: FAMOTIDINE 20 MG INJ IV SCH (08:56)
--- NOTE | 2018-10-08 08:58 | CONS ---
Consult Date/Type/Reason Admit Date/Time Oct 06, 2018 at 09:29 Initial Consult Date 10/06/18 Requesting Provider: MANUEL ALEMAN Date/Time of Note DATE: 10/08/18 TIME: 08:55 Subjective Pt back in a. fib - loading amio now - will add digoxin - given low BP, limited options - when BP Ok off levo gtt, wull consider dilt gtt for rate control. For now, good urine output. ROS: per nurse no F/C/N/V + SOB, improved urine output Objective Vitals Vital Signs Date Temp Pulse Resp B/P (MAP) Pulse Ox O2 O2 Flow FiO2 Time Delivery Rate 10/08/18 146 32 100 30 08:31 10/08/18 123/76 07:30 (92) 10/08/18 Mechanical 07:00 Ventilator 10/08/18 98.2 04:00 10/06/18 15.0 08:15 Intake and Output 10/07/18 10/07/18 10/08/18 1515:00 23:00 07:00 IntakeIntake Total 687.19 ml 762.52 ml 629.465 ml OutputOutput Total 170 ml 600 ml 580 ml BalanceBalance 517.19 ml 162.52 ml 49.465 ml Exam General: WN/WD/NAD, AOx 0 HEENT: Unicetric/atraumatic/EOMI (does not follow commands) NECK: JVD elevated, no thyromegaly - intubated Lymph: no lymphadenopathy HEART: irregularly irreg with no S3, II/ systolic murmur at apex LUNGS: Coarse sounds ABD: soft, NT, ND, +BS : Intact Neuro: non focal SKIN: chronic changes EXT: trace edema Results/Medications Result Diagram: 10/08/18 0450 10/08/18 0450 Results 24 hrs Laboratory Tests Test 10/07/18 15:52 10/07/18 22:54 10/08/18 04:50 10/08/18 07:00 Activated 82.5 *H 64.0 H 62[address] Time White Blood Count 16.6 H Red Blood Count 2.89 L Hemoglobin 9.2 L Hematocrit 26.1 L Mean Corpuscular 90.3 Volume Mean Corpuscular 31.8 Hemoglobin Mean Corpuscular 35.2 Hemoglobin Concent Red Cell 14.4 Distribution Width Platelet Count 192 Mean Platelet 12.1 H Volume Immature 4.000 H Granulocytes % Neutrophils % Lymphocytes % Monocytes % Eosinophils % Basophils % Nucleated Red 0.0 Blood Cells % Immature 0.670 H Granulocytes # Neutrophils # Lymphocytes # Monocytes # Eosinophils # Basophils # Nucleated Red Blood Cells # Sodium Level 138 Potassium Level 3.2 L Chloride Level 107 Carbon Dioxide 14 L Level Anion Gap 17 H Blood Urea 110 H Nitrogen Creatinine 3.88 H Est Glomerular 12 L Filtrat Rate mL/min Glucose Level 132 Calcium Level 8.8 Blood Gas Specimen Blood arterial Source Arterial Blood 10/08/2018 6:59:34 Date Drawn AM Arterial Blood pH 7.470 H (Temp corrected) Arterial Blood 20.5 L pCO2 (Temp correct) Arterial Blood pO2 113.8 H (Temp corrected) Arterial Blood 14.6 L HCO3 Arterial Blood -7.3 L Base Excess Arterial Blood 98.1 H Oxygen Saturation Greg Test ACCEPTAB Arterial Blood Gas Right Radial Puncture Site Arterial 0.3 Blood Carboxyhemog lobin Arterial Blood 0.2 Methemoglobin Blood Gas A-a O2 76.0 H Differential Oxyhemoglobin 97.6 Percent Blood Gas 37.0 Temperature Blood Gas Actual 28 Respiration Rate Blood Gas Modality VENT - AC FiO2 30.0 Blood Gas Tidal 450.0 Volume Blood Gas High 33.0 PEEP Setting Blood Gas Low PEEP 5.0 Setting Blood Gas Notified TM Whom Blood Gas Notified 10/08/2018 7:13:10 Time AM Test 10/08/18 07:58 Creatine Kinase 37 Creatine Kinase Pending Index Creatinine Kinase Pending MB (Mass) Troponin I Pending Home Meds Active Scripts Vancomycin Hcl (Vancocin) 1 Gm Soln, 500 MG IV Q12 for 7 Days, VIAL 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 Reported Medications Donepezil* (Donepezil*) 5 Mg Tablet, 5 MG PO QHS, #30 TAB 08/28/18 Divalproex Sodium* (Depakote*) 500 Mg Tablet.dr, 500 MG PO BID, #120 TAB 08/28/18 Docusate Sodium* (Colace*) 100 Mg Capsule, 100 MG PO BID PRN for CONSTIPATION, #60 CAP 08/28/18 Atorvastatin Calcium (Atorvastatin Calcium) 10 Mg Tablet, 10 MG PO QHS, #30 TAB 08/28/18 Lorazepam* (Lorazepam*) 1 Mg Tablet, 1 MG PO BID PRN for ANXIETY, #30 TAB 08/28/18 Lactulose* (Lactulose*) 20 Gm/30 Ml Solution, 20 GM PO TID PRN for CONSTIPATION, ML 08/28/18 Trazodone Hcl* (Trazodone Hcl*) 100 Mg Tablet, 100 MG PO QHS, #30 TAB 08/28/18 Quetiapine Fumarate* (Seroquel*) 200 Mg Tablet, 200 MG PO HS, #30 TAB 08/28/18 Sennosides* (Senna Lax*) 8.6 Mg Tablet, 2 TAB PO QHS PRN for CONSTIPATION, TAB 08/28/18 Multivitamins* (Theragran*) 1 Tab Tab, 1 TAB PO DAILY, TAB 08/28/18 Polyethylene Glycol* (Miralax*) 17 Gm Powd.pack, 17 GM PO BID, #60 PACKET 08/28/18 Metoprolol Tartrate* (Lopressor*) 25 Mg Tab, 12.5 MG PO DAILY, #60 TAB HOLD IF SBP<115 OR HR<60 08/28/18 Levothyroxine Sodium* (Levothyroxine Sodium*) 50 Mcg Tablet, 50 MCG PO BEFORE BREAKFAST, #30 TAB 08/28/18 Levetiracetam* (Keppra*) 500 Mg Tablet, 500 MG PO BID, TAB 08/28/18 Gabapentin* (Gabapentin*) 400 Mg Capsule, 400 MG PO TID, #90 CAP 08/28/18 Phenylephrine HCl/[place] Butter* (Preparation H* Suppository) 1 Each Supp.rect, 1 EACH CA DAILY PRN for CONSTIPATION, SUPP.RECT 08/28/18 Mineral Oil* (Fleet* Mineral Oil Enema) 133 Ml Oil, 133 ML CA DAILY PRN for CONSTIPATION, ENEMA 08/28/18 Acetaminophen* (Acetaminophen*) 650 Mg Tablet, 650 MG PO DAILY PRN for PAIN AND OR ELEVATED TEMP, #30 TAB 08/28/18 Bisacodyl* (Bisacodyl*) 5 Mg Tablet.dr, 10 MG PO DAILY PRN for CONSTIPATION, TAB 08/28/18 Medications Current Medications IV Flush (NS 3 ml) 3 ml PER PROTOCOL IV ; Start 10/06/18 at 09:30 Ondansetron HCl (Zofran Inj) 4 mg Q6H PRN IV NAUSEA/VOMITING; Start 10/06/18 at 09:30 Acetaminophen (Tylenol Tab) 650 mg Q6H PRN PO .PAIN 1-3 OR TEMP; Start 10/06/18 at 09:30 Acetaminophen/ Hydrocodone Bitart ([place] (5/325)) 1 tab Q6H PRN PO .MOD PAIN 4- 6; Start 10/06/18 at 09:30 Morphine Sulfate (morphine) 2 mg Q4H PRN IV .SEVERE PAIN 7-10; Start 10/06/18 at 09:30 Docusate Sodium (Colace) 100 mg Q12H PRN PO .CONSTIPATION; Start 10/06/18 at 09:30 Magnesium Hydroxide (Milk Of Mag) 30 ml DAILY PRN PO .CONSTIPATION; Start 10/06/18 at 09:30 Lorazepam (Ativan) 0.5 mg Q6H PRN IV ANXIETY Last administered on 10/08/18at 08:08; Admin Dose 0.5 MG; Start 10/06/18 at 09:30 Albuterol/ Ipratropium (Duoneb) 3 ml Q4H RESP THERAPY PRN HHN SHORTNESS OF BREATH; Start 10/06/18 at 09:30 Nitroglycerin (Nitroglycerin (Sl Tab) 0.4 Mg) 1 tab Q5M PRN SL ANGINA; Start 10/06/18 at 09:30 Bisacodyl (Dulcolax) 10 mg DAILY PRN PO CONSTIPATION; Start 10/06/18 at 09:30 Divalproex Sodium (Depakote) 500 mg BID PO Last administered on 10/08/18at 08:14; Admin Dose 500 MG; Start 10/06/18 at 21:00 Donepezil HCl (Aricept) 5 mg QHS PO Last administered on 10/07/18at 20:46; Admin Dose 5 MG; Start 10/06/18 at 21:00 Lactulose (Enulose) 20 gm TID PRN PO CONSTIPATION; Start 10/06/18 at 09:30 Levetiracetam (Keppra) 500 mg BID PO Last administered on 10/08/18 08:14; Admin Dose 500 MG; Start 10/06/18 at 21:00 Levothyroxine Sodium (Synthroid) 50 mcg BEFORE BREAKFAST PO Last administered on 10/08/18 08:14; Admin Dose 50 MCG; Start 10/07/18 at 07:00 Mineral Oil (Fleet Mineral Oil Enema) 133 ml DAILY PRN CA CONSTIPATION; Start 10/06/18 at 09:30 Multivitamins Therapeutic (Theragran) 1 tab DAILY PO Last administered on 10/08/18 08:14; Admin Dose 1 TAB; Start 10/07/18 at 09:00 Polyethylene Glycol (Miralax) 17 gm BID PO Last administered on 10/08/18 08:14; Admin Dose 17 GM; Start 10/06/18 at 21:00 Famotidine (Pepcid Iv) 20 mg DAILY IV Last administered on 10/07/18 08:40; Admin Dose 20 MG; Start 10/06/18 at 11:00 Norepinephrine 32 mg/Dextrose 250 ml @ 0.47 mls/hr TITRATE IV Last administered on 10/06/18 17:32; Admin Dose 4.69 MLS/HR; Start 10/06/18 at 11:30 Aspirin (Aspirin) 81 mg DAILY NGT Last administered on 10/07/18 08:40; Admin Dose 81 MG; Start 10/06/18 at 12:30 Heparin Sodium (Porcine) (Heparin (1000 Units/ml)) 4,000 unit PER PROTOCOL PRN IV aPTT<47; Start 10/06/18 at 12:30 Heparin Sodium (Porcine) 250 ml @ 8 mls/hr PER PROTOCOL IV Last administered on 10/07/18 16:58; Admin Dose 8.8 MLS/HR; Start 10/06/18 at 12:30 Atorvastatin Calcium (Lipitor) 40 mg DAILY@21 NGT Last administered on 10/07/18 20:45; Admin Dose 40 MG; Start 10/06/18 at 21:00 Miscellaneous Information (Flu Vaccine Previously Dispensed) FLU VACCINE PREVIOU... NOTE PRN XX NOTE; Start 10/06/18 at 18:00 Meropenem/Sodium Chloride 50 ml @ 100 mls/hr Q12 IVPB Last administered on 3/4/19at 20:45; Admin Dose 100 MLS/HR; Start 10/07/18 at 12:00 Amiodarone HCl 900 mg/Dextrose 500 ml @ 0 mls/hr Q0M IV Last administered on 10/07/18at 16:59; Admin Dose 33.3 MLS/HR; Start 10/07/18 at 16:30 Midazolam HCl 50 ml @ 0 mls/hr TITRATE IV ; Start 10/08/18 at 10:00 Assessment/Plan Hospital Course (Demo Recall) 1. Elevated troponin. The patient has elevated troponin consistent with non-ST elevation myocardial infarction, atrial fibrillation as well as renal failure likely contributing. Currently, the patient is not a candidate for any invasive therapy. She is not a candidate for beta panda. We will continue heparin d rip and aspirin. If the patient is not able to tolerate aspirin via NG tube, we will administer rectal if needed. STABLe - no active CP now - con't heparin gtt. 2. Atrial fibrillation with rapid ventricular response. Converted to sinus rhythm, now back in a. fib - will complete amio load and add Digoxin. 3. Hypertension. The patient is on Levophed. Continue to adjust medications as needed. She appears to be responding to IV hydration. 4. Infection. Continue the patient on antibiotics. NO fevers. 5. Dementia. The patient does report vascular dementia. Defer to primary team for management. 6. Acute renal failure. Continue to hydrate the patient. Renal team will follow. CR hig, but good urine output now. ZANE JACOME MD Oct 08, 2018 08:58
--- NOTE | 2018-10-08 09:02 | PN ---
Date/Time of Note Date/Time of Note DATE: 10/08/18 TIME: 08:58 Assessment/Plan VTE Prophylaxis Risk score (from Ns)>0 risk: 6 SCD applied (from Ns): Yes Pharmacological prophylaxis: heparin Lines/Catheters IV C[facility] Type ([facility] Central Line Central line still needed: Yes Urinary Cath still in place: Yes Reason Cath still needed: other (indicate) (intubated) Assessment/Plan Assessment/Plan A 67-year-old female coming in with signs of septic shock, likely secondary to urinary tract infection and pneumonia, elevated troponins, acute renal insufficiency, now intubated on pressor support. Also, with atrial fibrillation with rapid ventricular response, now in normal sinus rhythm. # Fever #Septic shock - Dr. Sanford following. - Likely due to URI and/or UTI. - Blood cultures growing GNRs x2. - The patient on her last admission had positive enterococcus UTI so, based on sensitivities for that, we will continue current antibiotic sensitivities to that until we follow ID recommendations. - Continue IV fluids and pressor support. Try to wean off as tolerated. - Tylenol p.r.n. pain and fevers. #Seizure - Not waking up >24 hours off sedation. - Morning of 10/08 had whole body twitching concerning for seizures; got Ativan t hen Versed. - EEG, will consult Dr Flower # NSTEMI - Unclear if this is true non-ST elevation myocardial infarction versus demand ischemia. - Again, she will be placed on heparin drip for now given the significant elevation in her troponins, - Continue high dose aspirin. - Trend her troponins q.6 hours x2 more. - She is also on Lipitor. - Dr. Mello consulted. #A fib with RVR, paroxysmal - Dr. Mello following - Converted to normal sinus after getting Cardizem in ED -Now back in A fib, on amiodarone gtt. # Renal insufficiency. - Creatinine is significantly worsened since her last admission 4.6. - Dr. Davila consulted - Not anuric # Hypothyroidism - Continue current thyroid medicines. - Low TSH, normal fT4 consistent with sick euthyroid syndrome. # History of dementia. Continue Aricept for now. #Seizure disorder - She is on Keppra. # History of high cholesterol. - Cont statin # Gastrointestinal prophylaxis. Add H2 panda. # Deep venous thrombosis prophylaxis. She is on heparin drip. Result Diagram: 10/08/18 0450 10/08/18 0450 Subjective 24 Hr Interval Summary Free Text/Dictation Yesterday afternoon went into A fib with RVR; started on amiodarone. Overnight had whole body twitching concerning for seizure activity. Given Ativan, started on Versed. Still requiring norepinephrine. Exam/Review of Systems Exam Vitals Vital Signs Date Temp Pulse Resp B/P (MAP) Pulse Ox O2 O2 Flow FiO2 Time Delivery Rate 10/08/18 146 32 100 30 08:31 10/08/18 123/76 07:30 (92) 10/08/18 Mechanical 07:00 Ventilator 10/08/18 98.2 04:00 10/06/18 15.0 08:15 Intake and Output 10/07/18 10/07/18 10/08/18 1515:00 23:00 07:00 IntakeIntake Total 687.19 ml 762.52 ml 629.465 ml OutputOutput Total 170 ml 600 ml 580 ml BalanceBalance 517.19 ml 162.52 ml 49.465 ml Exam GENERAL: Well developed woman lying in bed, intubated, sedated HEENT: Pupils dilated bilaterally, unresponsive to light. Moist mucous membranes, ET tube in place. NECK: Supple, no thyromegaly. LUNGS: Mechanical breath sounds equal bilaterally. CARDIOVASCULAR: S1, S2 heard. No rubs or gallops. ABDOMEN: Soft, nontender, nondistended. Normal bowel sounds. No rebound or guarding. MUSCULOSKELETAL: No lower extremity edema bilaterally. Results Results 24hrs Laboratory Tests Test 10/07/18 15:52 10/07/18 22:54 10/08/18 04:50 10/08/18 07:00 Activated 82.5 *H 64.0 H 62.[address] Time White Blood Count 16.6 H Red Blood Count 2.89 L Hemoglobin 9.2 L Hematocrit 26.1 L Mean Corpuscular 90.3 Volume Mean Corpuscular 31.8 Hemoglobin Mean Corpuscular 35.2 Hemoglobin Concent Red Cell 14.4 Distribution Width Platelet Count 192 Mean Platelet 12.1 H Volume Immature 4.000 H Granulocytes % Neutrophils % Lymphocytes % Monocytes % Eosinophils % Basophils % Nucleated Red 0.0 Blood Cells % Immature 0.670 H Granulocytes # Neutrophils # Lymphocytes # Monocytes # Eosinophils # Basophils # Nucleated Red Blood Cells # Sodium Level 138 Potassium Level 3.2 L Chloride Level 107 Carbon Dioxide 14 L Level Anion Gap 17 H Blood Urea 110 H Nitrogen Creatinine 3.88 H Est Glomerular 12 L Filtrat Rate mL/min Glucose Level 132 Calcium Level 8.8 Blood Gas Specimen Blood arterial Source Arterial Blood 10/08/2018 6:59:34 Date Drawn AM Arterial Blood pH 7.470 H (Temp corrected) Arterial Blood 20.5 L pCO2 (Temp correct) Arterial Blood pO2 113.8 H (Temp corrected) Arterial Blood 14.6 L HCO3 Arterial Blood -7.3 L Base Excess Arterial Blood 98.1 H Oxygen Saturation Greg Test ACCEPTAB Arterial Blood Gas Right Radial Puncture Site Arterial 0.3 Blood Carboxyhemog lobin Arterial Blood 0.2 Methemoglobin Blood Gas A-a O2 76.0 H Differential Oxyhemoglobin 97.6 Percent Blood Gas 37.0 Temperature Blood Gas Actual 28 Respiration Rate Blood Gas Modality VENT - AC FiO2 30.0 Blood Gas Tidal 450.0 Volume Blood Gas High 33.0 PEEP Setting Blood Gas Low PEEP 5.0 Setting Blood Gas Notified TM Whom Blood Gas Notified 10/08/2018 7:13:10 Time AM Test 10/08/18 07:58 Creatine Kinase 37 Creatine Kinase Pending Index Creatinine Kinase Pending MB (Mass) Troponin I Pending Medications Medication Current Medications IV Flush (NS 3 ml) 3 ml PER PROTOCOL IV ; Start 10/06/18 at 09:30 Ondansetron HCl (Zofran Inj) 4 mg Q6H PRN IV NAUSEA/VOMITING; Start 10/06/18 at 09:30 Acetaminophen (Tylenol Tab) 650 mg Q6H PRN PO .PAIN 1-3 OR TEMP; Start 10/06/18 at 09:30 Acetaminophen/ Hydrocodone Bitart ([place] (5/325)) 1 tab Q6H PRN PO .MOD PAIN 4- 6; Start 10/06/18 at 09:30 Morphine Sulfate (morphine) 2 mg Q4H PRN IV .SEVERE PAIN 7-10; Start 10/06/18 at 09:30 Docusate Sodium (Colace) 100 mg Q12H PRN PO .CONSTIPATION; Start 10/06/18 at 09:30 Magnesium Hydroxide (Milk Of Mag) 30 ml DAILY PRN PO .CONSTIPATION; Start 10/06/18 at 09:30 Lorazepam (Ativan) 0.5 mg Q6H PRN IV ANXIETY Last administered on 10/08/18 08:08; Admin Dose 0.5 MG; Start 10/06/18 at 09:30 Albuterol/ Ipratropium (Duoneb) 3 ml Q4H RESP THERAPY PRN HHN SHORTNESS OF BREATH; Start 10/06/18 at 09:30 Nitroglycerin (Nitroglycerin (Sl Tab) 0.4 Mg) 1 tab Q5M PRN SL ANGINA; Start 10/06/18 at 09:30 Bisacodyl (Dulcolax) 10 mg DAILY PRN PO CONSTIPATION; Start 10/06/18 at 09:30 Divalproex Sodium (Depakote) 500 mg BID PO Last administered on 10/08/18 08:14; Admin Dose 500 MG; Start 10/06/18 at 21:00 Donepezil HCl (Aricept) 5 mg QHS PO Last administered on 10/07/18 20:46; Admin Dose 5 MG; Start 10/06/18 at 21:00 Lactulose (Enulose) 20 gm TID PRN PO CONSTIPATION; Start 10/06/18 at 09:30 Levetiracetam (Keppra) 500 mg BID PO Last administered on 10/08/18 08:14; Admin Dose 500 MG; Start 10/06/18 at 21:00 Levothyroxine Sodium (Synthroid) 50 mcg BEFORE BREAKFAST PO Last administered on 10/08/18 08:14; Admin Dose 50 MCG; Start 10/07/18 at 07:00 Mineral Oil (Fleet Mineral Oil Enema) 133 ml DAILY PRN ND CONSTIPATION; Start 10/06/18 at 09:30 Multivitamins Therapeutic (Theragran) 1 tab DAILY PO Last administered on 10/08/18 08:14; Admin Dose 1 TAB; Start 10/07/18 at 09:00 Polyethylene Glycol (Miralax) 17 gm BID PO Last administered on 10/08/18 08:14; Admin Dose 17 GM; Start 10/06/18 at 21:00 Famotidine (Pepcid Iv) 20 mg DAILY IV Last administered on 10/08/18 08:56; Admin Dose 20 MG; Start 10/06/18 at 11:00 Norepinephrine 32 mg/Dextrose 250 ml @ 0.47 mls/hr TITRATE IV Last administered on 10/06/18 17:32; Admin Dose 4.69 MLS/HR; Start 10/06/18 at 11:30 Aspirin (Aspirin) 81 mg DAILY NGT Last administered on 10/08/18 08:55; Admin Dose 81 MG; Start 10/06/18 at 12:30 Heparin Sodium (Porcine) (Heparin (1000 Units/ml)) 4,000 unit PER PROTOCOL PRN IV aPTT<47; Start 10/06/18 at 12:30 Heparin Sodium (Porcine) 250 ml @ 8 mls/hr PER PROTOCOL IV Last administered on 10/07/18 16:58; Admin Dose 8.8 MLS/HR; Start 10/06/18 at 12:30 Atorvastatin Calcium (Lipitor) 40 mg DAILY@21 NGT Last administered on 10/07/18 20:45; Admin Dose 40 MG; Start 10/06/18 at 21:00 Miscellaneous Information (Flu Vaccine Previously Dispensed) FLU VACCINE PREVIOU... NOTE PRN XX NOTE; Start 10/06/18 at 18:00 Meropenem/Sodium Chloride 50 ml @ 100 mls/hr Q12 IVPB Last administered on 10/08/18 08:54; Admin Dose 100 MLS/HR; Start 10/07/18 at 12:00 Amiodarone HCl 900 mg/Dextrose 500 ml @ 0 mls/hr Q0M IV Last administered on 10/07/18 16:59; Admin Dose 33.3 MLS/HR; Start 10/07/18 at 16:30 Midazolam HCl 50 ml @ 0 mls/hr TITRATE IV ; Start 10/08/18 at 10:00 ANGELA MOSQUERA MD Oct 08, 2018 09:02
[2018-10-08] MEDS: MIDAZOLAM (DRIP) 50 mg/50 mL 50 ML IV SCH ×2 (09:09→19:41)
--- NOTE | 2018-10-08 12:29 | CONS ---
Assessment/Plan Assessment/Plan Hospital Course (Demo Recall) No acute changes overnight patient remains intubated on Levophed drip, tachycardic, afebrile WBC today 16.6 H&H 9.2 and 26.1 platelets 192 bands 28 BUN 110 creatinine 3.88 Antimicrobials: Blood and urine cultures growing E. coli Chest x-ray this morning revealed increased right basilar infiltrate concerning for pneumonia Indwelling: Endotracheal tube NG tube Piña catheter right IJ triple-lumen catheter Diagnostic: Chest x-ray this morning revealed no evidence of acute cardiopulmonary disease Allergy: Penicillin, clindamycin Antibiotics: Merrem Physical examination: Well-developed chronically ill-appearing elderly woman. The patient is in no distress. Head atraumatic normocephalic. Neck is supple. Chest rise symmetrical, breath sounds diminished bases. Heart: S1-S2, tachy cardic, irregular. Abdomen soft bowel sounds hypoactive. Extremities mottled cyanotic Assessment: 1. Severe sepsis with shock 2. E coli bacteremia secondary to urinary tract infection 3. Urinary tract infection 4. Healthcare associated pneumonia, possibly aspiration 4. Acute possibly on chronic kidney disease 5. Non-ST elevation CO 6. Atrial fibrillation with RVR Plan: Patient remains hemodynamically unstable, we will add Zyvox to the regimen, send sputum culture, follow repeat blood cultures, follow cardiology renal and pulmonary recommendations Consultation Date/Type/Reason Admit Date/Time Oct 06, 2018 at 09:29 Initial Consult Date 10/06/18 Type of Consult id Requesting Provider: MANUEL ALEMAN Date/Time of Note DATE: 10/08/18 TIME: 12:27 Exam/Review of Systems Exam Vitals Vital Signs Date Temp Pulse Resp B/P (MAP) Pulse Ox O2 O2 Flow FiO2 Time Delivery Rate 10/08/18 97.9 160 25 101/72 100 Mechanical 12:00 (82) Ventilator 10/08/18 30 11:21 10/06/18 15.0 08:15 Intake and Output 10/07/18 10/07/18 10/08/18 1515:00 23:00 07:00 IntakeIntake Total 687.19 ml 762.52 ml 659.465 ml OutputOutput Total 170 ml 600 ml 730 ml BalanceBalance 517.19 ml 162.52 ml -70.535 ml Results Result Diagram: 10/08/18 0450 10/08/18 0450 Results 24hrs Laboratory Tests Test 10/07/18 15:52 10/07/18 22:54 10/08/18 04:50 10/08/18 07:00 Activated 82.5 *H 64.0 H 62.[address] Time White Blood Count 16.6 H Red Blood Count 2.89 L Hemoglobin 9.2 L Hematocrit 26.1 L Mean Corpuscular 90.3 Volume Mean Corpuscular 31.8 Hemoglobin Mean Corpuscular 35.2 Hemoglobin Concent Red Cell 14.4 Distribution Width Platelet Count 192 Mean Platelet 12.1 H Volume Immature 4.000 H Granulocytes % Neutrophils % Segmented 60 Neutrophils % (Manual) Band Neutrophils % 28 H (Manual) Lymphocytes % Lymphocytes % 7 L (Manual) Monocytes % Monocytes % 4 (Manual) Eosinophils % Basophils % Promyelocytes % 1 H (Manual) Nucleated Red 0.0 Blood Cells % Immature 0.670 H Granulocytes # Neutrophils # Neutrophils # 10.7 H (Manual) Band Neutrophils # 4.6 H Lymphocytes 1.1 (Manual) Lymphocytes # Monocytes # Monocytes # 0.6 (Manual) Eosinophils # Basophils # Promyelocytes # 0.1 H Nucleated Red Blood Cells # Platelet Estimate NORMAL Giant Platelets 2 H Poikilocytosis 1+ Anisocytosis 3+ Macrocytosis 3+ Target Cells 1+ Ovalocytes 1+ Sodium Level 138 Potassium Level 3.2 L Chloride Level 107 Carbon Dioxide 14 L Level Anion Gap 17 H Blood Urea 110 H Nitrogen Creatinine 3.88 H Est Glomerular 12 L Filtrat Rate mL/min Glucose Level 132 Calcium Level 8.8 Blood Gas Specimen Blood arterial Source Arterial Blood 10/08/2018 6:59:34 Date Drawn AM Arterial Blood pH 7.470 H (Temp corrected) Arterial Blood 20.5 L pCO2 (Temp correct) Arterial Blood pO2 113.8 H (Temp corrected) Arterial Blood 14.6 L HCO3 Arterial Blood -7.3 L Base Excess Arterial Blood 98.1 H Oxygen Saturation Greg Test ACCEPTAB Arterial Blood Gas Right Radial Puncture Site Arterial 0.3 Blood Carboxyhemog lobin Arterial Blood 0.2 Methemoglobin Blood Gas A-a O2 76.0 H Differential Oxyhemoglobin 97.6 Percent Blood Gas 37.0 Temperature Blood Gas Actual 28 Respiration Rate Blood Gas Modality VENT - AC FiO2 30.0 Blood Gas Tidal 450.0 Volume Blood Gas High 33.0 PEEP Setting Blood Gas Low PEEP 5.0 Setting Blood Gas Notified TM Whom Blood Gas Notified 10/08/2018 7:13:10 Time AM Test 10/08/18 07:58 Creatine Kinase 37 Creatine Kinase 3.0 Index Creatinine Kinase 1.10 MB (Mass) Troponin I 0.865 *H Medications Medication Current Medications IV Flush (NS 3 ml) 3 ml PER PROTOCOL IV ; Start 10/06/18 at 09:30 Ondansetron HCl (Zofran Inj) 4 mg Q6H PRN IV NAUSEA/VOMITING; Start 10/06/18 at 09:30 Acetaminophen (Tylenol Tab) 650 mg Q6H PRN PO .PAIN 1-3 OR TEMP; Start 10/06/18 at 09:30 Acetaminophen/ Hydrocodone Bitart ([place] (5/325)) 1 tab Q6H PRN PO .MOD PAIN 4- 6; Start 10/06/18 at 09:30 Morphine Sulfate (morphine) 2 mg Q4H PRN IV .SEVERE PAIN 7-10; Start 10/06/18 at 09:30 Docusate Sodium (Colace) 100 mg Q12H PRN PO .CONSTIPATION; Start 10/06/18 at 09:30 Magnesium Hydroxide (Milk Of Mag) 30 ml DAILY PRN PO .CONSTIPATION; Start 10/06/18 at 09:30 Lorazepam (Ativan) 0.5 mg Q6H PRN IV ANXIETY Last administered on 10/08/18at 08:08; Admin Dose 0.5 MG; Start 10/06/18 at 09:30 Albuterol/ Ipratropium (Duoneb) 3 ml Q4H RESP THERAPY PRN HHN SHORTNESS OF BREATH; Start 10/06/18 at 09:30 Nitroglycerin (Nitroglycerin (Sl Tab) 0.4 Mg) 1 tab Q5M PRN SL ANGINA; Start 10/06/18 at 09:30 Bisacodyl (Dulcolax) 10 mg DAILY PRN PO CONSTIPATION; Start 10/06/18 at 09:30 Divalproex Sodium (Depakote) 500 mg BID PO Last administered on 10/08/18at 08:14; Admin Dose 500 MG; Start 10/06/18 at 21:00 Donepezil HCl (Aricept) 5 mg QHS PO Last administered on 3/4/19at 20:46; Admin Dose 5 MG; Start 10/06/18 at 21:00 Lactulose (Enulose) 20 gm TID PRN PO CONSTIPATION; Start 10/06/18 at 09:30 Levetiracetam (Keppra) 500 mg BID PO Last administered on 10/08/18 08:14; Admin Dose 500 MG; Start 10/06/18 at 21:00 Levothyroxine Sodium (Synthroid) 50 mcg BEFORE BREAKFAST PO Last administered on 10/08/18 08:14; Admin Dose 50 MCG; Start 10/07/18 at 07:00 Mineral Oil (Fleet Mineral Oil Enema) 133 ml DAILY PRN [place] CONSTIPATION; Start 10/06/18 at 09:30 Multivitamins Therapeutic (Theragran) 1 tab DAILY PO Last administered on 10/08/18 08:14; Admin Dose 1 TAB; Start 10/07/18 at 09:00 Polyethylene Glycol (Miralax) 17 gm BID PO Last administered on 10/08/18 08:14; Admin Dose 17 GM; Start 10/06/18 at 21:00 Famotidine (Pepcid Iv) 20 mg DAILY IV Last administered on 10/08/18 08:56; Admin Dose 20 MG; Start 10/06/18 at 11:00 Norepinephrine 32 mg/Dextrose 250 ml @ 0.47 mls/hr TITRATE IV Last administered on 10/06/18 17:32; Admin Dose 4.69 MLS/HR; Start 10/06/18 at 11:30 Aspirin (Aspirin) 81 mg DAILY NGT Last administered on 10/08/18 08:55; Admin Dose 81 MG; Start 10/06/18 at 12:30 Heparin Sodium (Porcine) (Heparin (1000 Units/ml)) 4,000 unit PER PROTOCOL PRN IV aPTT<47; Start 10/06/18 at 12:30 Heparin Sodium (Porcine) 250 ml @ 8 mls/hr PER PROTOCOL IV Last administered on 10/07/18 16:58; Admin Dose 8.8 MLS/HR; Start 10/06/18 at 12:30 Atorvastatin Calcium (Lipitor) 40 mg DAILY@21 NGT Last administered on 10/07/18 20:45; Admin Dose 40 MG; Start 10/06/18 at 21:00 Miscellaneous Information (Flu Vaccine Previously Dispensed) FLU VACCINE PREVIOU... NOTE PRN XX NOTE; Start 10/06/18 at 18:00 Meropenem/Sodium Chloride 50 ml @ 100 mls/hr Q12 IVPB Last administered on 10/08/18at 08:54; Admin Dose 100 MLS/HR; Start 10/07/18 at 12:00 Midazolam HCl 50 ml @ 0 mls/hr TITRATE IV Last administered on 10/08/18at 09:09; Admin Dose 3 MLS/HR; Start 10/08/18 at 10:00 Digoxin (Digoxin) 125 mcg DAILY@13 IV ; Start 10/08/18 at 13:00 MARKOS BRADY NP Oct 08, 2018 12:29
[2018-10-08] MEDS: NORepinephrine 32 MG in DEXTROSE 5% 218 ML IV SCH (12:53)
[2018-10-08] MEDS ORDERED: DIGOXIN 500 MCG INJ IV SCH (13:00)
[2018-10-08] MEDS: LINEZOLID 600 MG/D5W (PMX) 300 ML IVPB SCH ×2 (14:12→22:18)
--- NOTE | 2018-10-08 14:34 | CONS ---
Assessment/Plan Assessment/Plan Hospital Course 67 F c/ dementia, epilepsy, and other comorbidities, who presents for management of cardiopulmonary Sx. She was noted to have a generalized convulsion on 10/08, for which neurology is consulted... Certainly her acute illness is lowering her seizure threshold.. P: CT head for further characterization OK to continua asa for primary stroke prevention daily pending the above Add depakote level OK to continue Depakote 500 bid, and Keppra 500 bid per ops Ativan iv prn prolonged seizure or cluster Continued medical management per primary Will follow Consultation Date/Type/Reason Admit Date/Time Oct 06, 2018 at 09:29 Type of Consult Neurology Reason for Consultation coma; seizure Requesting Provider: MANUEL ALEMAN Date/Time of Note DATE: 10/08/18 TIME: 14:34 Hx of Present Illness A 67-year-old female with past medical history based on records of prior ente rococcus UTI, hypothyroidism, high cholesterol, anxiety, depression, dementia, prior pneumonia, recent treatment for septic shock secondary to urinary tract infection and pneumonia, also chronic encephalopathy who comes in because of fever. Most of her information is obtained from the ER documentation as the patient is unable to provide full HPI at this time. The patient was recently hospitalized in August for severe sepsis and pneumonia at that time. Patient when she came in was found at this time with a temperature of 101.5. She was also found with low blood pressure systolic in the 60s and had to be intubated in the ER and placed on pressor support. Patient also had a white blood cell count of 11.8. Patient also found with elevated troponins since admission and also signs of renal insufficiency as her creatinine is significantly more elevated at 4.6 today. The patient was recently here at our hospital as mentioned above from August 28 to August 31. Again, treated at that time for sepsis and septic shock secondary to pneumonia and enterococcus UTI and UMBERTO at the time. Patient also was found on admission with atrial fibrillation with RVR and given Cardizem drip but presently is in normal sinus rhythm. PAST MEDICAL HISTORY: As above. ALLERGIES 1. PENICILLIN. 2. SULFA MEDICATIONS. 3. TRYPTOPHAN. 4. CLINDAMYCIN. 5. TORADOL. 6. LACTASE. MEDICATIONS AT HOME: 1. Donepezil 5 mg. 2. Atorvastatin 10 mg. 3. Metoprolol 12.5 mg. 4. Tylenol p.r.n. 5. Depakote 500 mg. 6. Gabapentin 400 mg t.i.d. 7. Keppra 500 mg twice a day. 8. Ativan 1 mg p.r.n. 9. Seroquel 200 mg at bedtime. 10. Trazodone 100 mg at bedtime. 11. Lactulose 20 grams t.i.d. p.r.n. 12. Dulcolax 10 mg daily p.r.n. 13. Colace 100 mg b.i.d. p.r.n. 14. Fleets enema daily p.r.n. 15. MiraLax 17 grams b.i.d. 16. Senna 2 tabs at bedtime p.r.n. 17. Levothyroxine 50 mcg every morning. 18. Multivitamin 1 tab daily. Exam/Review of Systems Exam Vitals Vital Signs Date Temp Pulse Resp B/P (MAP) Pulse Ox O2 O2 Flow FiO2 Time Delivery Rate 10/08/18 156 29 99/65 (76) 100 Mechanical 14:15 Ventilator 10/08/18 30 12:55 10/08/18 97.9 12:00 10/06/18 15.0 08:15 Intake and Output 10/07/18 10/07/18 10/08/18 1515:00 23:00 07:00 IntakeIntake Total 687.19 ml 762.52 ml 659.465 ml OutputOutput Total 170 ml 600 ml 730 ml BalanceBalance 517.19 ml 162.52 ml -70.535 ml Exam PE: Gen Appearance: No Apparent Distress HEENT: Intubated Cardiovascular: Regular rate Abdomen: Soft Extremities: Dry NE: The patient was comatose and nonverbal. Cranial nerve examination was limited by mental status. Pupils were equal and reactive to light. There was no afferent pupillary defect. Funduscopic examination was limited. Face was grossly symmetric, w/ present corneal reflexes. Tone was normal. Muscle bulk was normal. I did not see fasciculations. The julissa ent did not withdraw to noxious stimulation x 4. Coordination and gait testing was limited by mental status. Arm and leg reflexes were within normal limits and symmetric. Beck's sign was absent. Plantar responses were flexor. Results Result Diagram: 10/08/18 0450 10/08/18 0450 Results 24hrs Laboratory Tests Test 10/07/18 15:52 10/07/18 22:54 10/08/18 04:50 10/08/18 07:00 Activated 82.5 *H 64.0 H 62.[address] Time White Blood Count 16.6 H Red Blood Count 2.89 L Hemoglobin 9.2 L Hematocrit 26.1 L Mean Corpuscular 90.3 Volume Mean Corpuscular 31.8 Hemoglobin Mean Corpuscular 35.2 Hemoglobin Concent Red Cell 14.4 Distribution Width Platelet Count 192 Mean Platelet 12.1 H Volume Immature 4.000 H Granulocytes % Neutrophils % Segmented 60 Neutrophils % (Manual) Band Neutrophils % 28 H (Manual) Lymphocytes % Lymphocytes % 7 L (Manual) Monocytes % Monocytes % 4 (Manual) Eosinophils % Basophils % Promyelocytes % 1 H (Manual) Nucleated Red 0.0 Blood Cells % Immature 0.670 H Granulocytes # Neutrophils # Neutrophils # 10.7 H (Manual) Band Neutrophils # 4.6 H Lymphocytes 1.1 (Manual) Lymphocytes # Monocytes # Monocytes # 0.6 (Manual) Eosinophils # Basophils # Promyelocytes # 0.1 H Nucleated Red Blood Cells # Platelet Estimate NORMAL Giant Platelets 2 H Poikilocytosis 1+ Anisocytosis 3+ Macrocytosis 3+ Target Cells 1+ Ovalocytes 1+ Sodium Level 138 Potassium Level 3.2 L Chloride Level 107 Carbon Dioxide 14 L Level Anion Gap 17 H Blood Urea 110 H Nitrogen Creatinine 3.88 H Est Glomerular 12 L Filtrat Rate mL/min Glucose Level 132 Calcium Level 8.8 Blood Gas Specimen Blood arterial Source Arterial Blood 10/08/2018 6:59:34 Date Drawn AM Arterial Blood pH 7.470 H (Temp corrected) Arterial Blood 20.5 L pCO2 (Temp correct) Arterial Blood pO2 113.8 H (Temp corrected) Arterial Blood 14.6 L HCO3 Arterial Blood -7.3 L Base Excess Arterial Blood 98.1 H Oxygen Saturation Greg Test ACCEPTAB Arterial Blood Gas Right Radial Puncture Site Arterial 0.3 Blood Carboxyhemog lobin Arterial Blood 0.2 Methemoglobin Blood Gas A-a O2 76.0 H Differential Oxyhemoglobin 97.6 Percent Blood Gas 37.0 Temperature Blood Gas Actual 28 Respiration Rate Blood Gas Modality VENT - AC FiO2 30.0 Blood Gas Tidal 450.0 Volume Blood Gas High 33.0 PEEP Setting Blood Gas Low PEEP 5.0 Setting Blood Gas Notified TM Whom Blood Gas Notified 10/08/2018 7:13:10 Time AM Test 10/08/18 07:58 10/08/18 11:51 Creatine Kinase 37 Creatine Kinase 3.0 Index Creatinine Kinase 1.10 MB (Mass) Troponin I 0.865 *H Activated 107.9 *H Partial Thrombopla st Time Medications Medication Current Medications IV Flush (NS 3 ml) 3 ml PER PROTOCOL IV ; Start 10/06/18 at 09:30 Ondansetron HCl (Zofran Inj) 4 mg Q6H PRN IV NAUSEA/VOMITING; Start 10/06/18 at 09:30 Acetaminophen (Tylenol Tab) 650 mg Q6H PRN PO .PAIN 1-3 OR TEMP; Start 10/06/18 at 09:30 Acetaminophen/ Hydrocodone Bitart ([place] (5/325)) 1 tab Q6H PRN PO .MOD PAIN 4- 6; Start 10/06/18 at 09:30 Morphine Sulfate (morphine) 2 mg Q4H PRN IV .SEVERE PAIN 7-10; Start 10/06/18 at 09:30 Docusate Sodium (Colace) 100 mg Q12H PRN PO .CONSTIPATION; Start 10/06/18 at 09 :30 Magnesium Hydroxide (Milk Of Mag) 30 ml DAILY PRN PO .CONSTIPATION; Start 10/06/18 at 09:30 Lorazepam (Ativan) 0.5 mg Q6H PRN IV ANXIETY Last administered on 10/08/18at 08:08; Admin Dose 0.5 MG; Start 10/06/18 at 09:30 Albuterol/ Ipratropium (Duoneb) 3 ml Q4H RESP THERAPY PRN HHN SHORTNESS OF MAIA ATH; Start 10/06/18 at 09:30 Nitroglycerin (Nitroglycerin (Sl Tab) 0.4 Mg) 1 tab Q5M PRN SL ANGINA; Start 10/06/18 at 09:30 Bisacodyl (Dulcolax) 10 mg DAILY PRN PO CONSTIPATION; Start 10/06/18 at 09:30 Divalproex Sodium (Depakote) 500 mg BID PO Last administered on 10/08/18at 08:14; Admin Dose 500 MG; Start 10/06/18 at 21:00 Donepezil HCl (Aricept) 5 mg QHS PO Last administered on 10/07/18 20:46; Admin Dose 5 MG; Start 10/06/18 at 21:00 Lactulose (Enulose) 20 gm TID PRN PO CONSTIPATION; Start 10/06/18 at 09:30 Levetiracetam (Keppra) 500 mg BID PO Last administered on 10/08/18 08:14; Admin Dose 500 MG; Start 10/06/18 at 21:00 Levothyroxine Sodium (Synthroid) 50 mcg BEFORE BREAKFAST PO Last administered on 10/08/18 08:14; Admin Dose 50 MCG; Start 10/07/18 at 07:00 Mineral Oil (Fleet Mineral Oil Enema) 133 ml DAILY PRN [place] CONSTIPATION; Start 10/06/18 at 09:30 Multivitamins Therapeutic (Theragran) 1 tab DAILY PO Last administered on 10/08/18 08:14; Admin Dose 1 TAB; Start 10/07/18 at 09:00 Polyethylene Glycol (Miralax) 17 gm BID PO Last administered on 10/08/18 08:14; Admin Dose 17 GM; Start 10/06/18 at 21:00 Famotidine (Pepcid Iv) 20 mg DAILY IV Last administered on 10/08/18 08:56; Adm in Dose 20 MG; Start 10/06/18 at 11:00 Norepinephrine 32 mg/Dextrose 250 ml @ 0.47 mls/hr TITRATE IV Last administered on 10/08/18 12:53; Admin Dose 4.69 MLS/HR; Start 10/06/18 at 11:30 Aspirin (Aspirin) 81 mg DAILY NGT Last administered on 10/08/18 08:55; Admin Dose 81 MG; Start 10/06/18 at 12:30 Heparin Sodium (Porcine) (Heparin (1000 Units/ml)) 4,000 unit PER PROTOCOL PRN IV aPTT<47; Start 10/06/18 at 12:30 Heparin Sodium (Porcine) 250 ml @ 8 mls/hr PER PROTOCOL IV Last administered on 10/07/18 16:58; Admin Dose 8.8 MLS/HR; Start 10/06/18 at 12:30 Atorvastatin Calcium (Lipitor) 40 mg DAILY@21 NGT Last administered on 3/4/19at 20:45; Admin Dose 40 MG; Start 10/06/18 at 21:00 Miscellaneous Information (Flu Vaccine Previously Dispensed) FLU VACCINE PREVIOU... NOTE PRN XX NOTE; Start 10/06/18 at 18:00 Meropenem/Sodium Chloride 50 ml @ 100 mls/hr Q12 IVPB Last administered on 10/08/18at 08:54; Admin Dose 100 MLS/HR; Start 10/07/18 at 12:00 Midazolam HCl 50 ml @ 0 mls/hr TITRATE IV Last administered on 10/08/18at 09:09; Admin Dose 3 MLS/HR; Start 10/08/18 at 10:00 Digoxin (Digoxin) 125 mcg DAILY@13 IV Last administered on 10/08/18at 13:21; Admin Dose 125 MCG; Start 10/08/18 at 13:00 Linezolid 300 ml @ 300 mls/hr Q12 IVPB Last administered on 10/08/18at 14:12; Admin Dose 300 MLS/HR; Start 10/08/18 at 12:30 Past Medical History reviewed Medical History: high cholesterol, hypertension, hypothyroid, other (Dementia, Encephalopathy) Home Meds Active Scripts Vancomycin Hcl (Vancocin) 1 Gm Soln, 500 MG IV Q12 for 7 Days, VIAL 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 08/31/18 Aztreonam (AZTREONAM) 1 Gm Vial, 1 GM IV* Q12 for 7 Days, VIAL 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 08/31/18 Reported Medications Donepezil* (Donepezil*) 5 Mg Tablet, 5 MG PO QHS, #30 TAB 08/28/18 Divalproex Sodium* (Depakote*) 500 Mg Tablet.dr, 500 MG PO BID, #120 TAB 08/28/18 Docusate Sodium* (Colace*) 100 Mg Capsule, 100 MG PO BID PRN for CONSTIPATION, #60 CAP 08/28/18 Atorvastatin Calcium (Atorvastatin Calcium) 10 Mg Tablet, 10 MG PO QHS, #30 TAB 08/28/18 Lorazepam* (Lorazepam*) 1 Mg Tablet, 1 MG PO BID PRN for ANXIETY, #30 TAB 08/28/18 Lactulose* (Lactulose*) 20 Gm/30 Ml Solution, 20 GM PO TID PRN for CONSTIPATION, ML 08/28/18 Trazodone Hcl* (Trazodone Hcl*) 100 Mg Tablet, 100 MG PO QHS, #30 TAB 08/28/18 Quetiapine Fumarate* (Seroquel*) 200 Mg Tablet, 200 MG PO HS, #30 TAB 08/28/18 Sennosides* (Senna Lax*) 8.6 Mg Tablet, 2 TAB PO QHS PRN for CONSTIPATION, TAB 08/28/18 Multivitamins* (Theragran*) 1 Tab Tab, 1 TAB PO DAILY, TAB 08/28/18 Polyethylene Glycol* (Miralax*) 17 Gm Powd.pack, 17 GM PO BID, #60 PACKET 08/28/18 Metoprolol Tartrate* (Lopressor*) 25 Mg Tab, 12.5 MG PO DAILY, #60 TAB HOLD IF SBP<115 OR HR<60 08/28/18 Levothyroxine Sodium* (Levothyroxine Sodium*) 50 Mcg Tablet, 50 MCG PO BEFORE BREAKFAST, #30 TAB 08/28/18 Levetiracetam* (Keppra*) 500 Mg Tablet, 500 MG PO BID, TAB 08/28/18 Gabapentin* (Gabapentin*) 400 Mg Capsule, 400 MG PO TID, #90 CAP 08/28/18 Phenylephrine HCl/[place] Butter* (Preparation H* Suppository) 1 Each Supp.rect, 1 EACH MA DAILY PRN for CONSTIPATION, SUPP.RECT 08/28/18 Mineral Oil* (Fleet* Mineral Oil Enema) 133 Ml Oil, 133 ML MA DAILY PRN for CONSTIPATION, ENEMA 08/28/18 Acetaminophen* (Acetaminophen*) 650 Mg Tablet, 650 MG PO DAILY PRN for PAIN AND OR ELEVATED TEMP, #30 TAB 08/28/18 Bisacodyl* (Bisacodyl*) 5 Mg Tablet.dr, 10 MG PO DAILY PRN for CONSTIPATION, TAB 08/28/18 Medications Current Medications IV Flush (NS 3 ml) 3 ml PER PROTOCOL IV ; Start 10/06/18 at 09:30 Ondansetron HCl (Zofran Inj) 4 mg Q6H PRN IV NAUSEA/VOMITING; Start 10/06/18 at 09:30 Acetaminophen (Tylenol Tab) 650 mg Q6H PRN PO .PAIN 1-3 OR TEMP; Start 10/06/18 at 09:30 Acetaminophen/ Hydrocodone Bitart ([place] (5/325)) 1 tab Q6H PRN PO .MOD PAIN 4- 6; Start 10/06/18 at 09:30 Morphine Sulfate (morphine) 2 mg Q4H PRN IV .SEVERE PAIN 7-10; Start 10/06/18 at 09:30 Docusate Sodium (Colace) 100 mg Q12H PRN PO .CONSTIPATION; Start 10/06/18 at 09:30 Magnesium Hydroxide (Milk Of Mag) 30 ml DAILY PRN PO .CONSTIPATION; Start 10/06/18 at 09:30 Lorazepam (Ativan) 0.5 mg Q6H PRN IV ANXIETY Last administered on 10/08/18at 08:08; Admin Dose 0.5 MG; Start 10/06/18 at 09:30 Albuterol/ Ipratropium (Duoneb) 3 ml Q4H RESP THERAPY PRN HHN SHORTNESS OF BREATH; Start 10/06/18 at 09:30 Nitroglycerin (Nitroglycerin (Sl Tab) 0.4 Mg) 1 tab Q5M PRN SL ANGINA; Start 10/06/18 at 09:30 Bisacodyl (Dulcolax) 10 mg DAILY PRN PO CONSTIPATION; Start 10/06/18 at 09:30 Divalproex Sodium (Depakote) 500 mg BID PO Last administered on 10/08/18at 08:14; Admin Dose 500 MG; Start 10/06/18 at 21:00 Donepezil HCl (Aricept) 5 mg QHS PO Last administered on 10/07/18at 20:46; Admin Dose 5 MG; Start 10/06/18 at 21:00 Lactulose (Enulose) 20 gm TID PRN PO CONSTIPATION; Start 10/06/18 at 09:30 Levetiracetam (Keppra) 500 mg BID PO Last administered on 10/08/18at 08:14; Admin Dose 500 MG; Start 10/06/18 at 21:00 Levothyroxine Sodium (Synthroid) 50 mcg BEFORE BREAKFAST PO Last administered on 10/08/18at 08:14; Admin Dose 50 MCG; Start 10/07/18 at 07:00 Mineral Oil (Fleet Mineral Oil Enema) 133 ml DAILY PRN MA CONSTIPATION; Start 10/06/18 at 09:30 Multivitamins Therapeutic (Theragran) 1 tab DAILY PO Last administered on 10/08/18 08:14; Admin Dose 1 TAB; Start 10/07/18 at 09:00 Polyethylene Glycol (Miralax) 17 gm BID PO Last administered on 10/08/18 08:14; Admin Dose 17 GM; Start 10/06/18 at 21:00 Famotidine (Pepcid Iv) 20 mg DAILY IV Last administered on 10/08/18 08:56; Admin Dose 20 MG; Start 10/06/18 at 11:00 Norepinephrine 32 mg/Dextrose 250 ml @ 0.47 mls/hr TITRATE IV Last administered on 10/08/18 12:53; Admin Dose 4.69 MLS/HR; Start 10/06/18 at 11:30 Aspirin (Aspirin) 81 mg DAILY NGT Last administered on 10/08/18 08:55; Admin Dose 81 MG; Start 10/06/18 at 12:30 Heparin Sodium (Porcine) (Heparin (1000 Units/ml)) 4,000 unit PER PROTOCOL PRN IV aPTT<47; Start 10/06/18 at 12:30 Heparin Sodium (Porcine) 250 ml @ 8 mls/hr PER PROTOCOL IV Last administered on 10/07/18 16:58; Admin Dose 8.8 MLS/HR; Start 10/06/18 at 12:30 Atorvastatin Calcium (Lipitor) 40 mg DAILY@21 NGT Last administered on 10/07/18 20:45; Admin Dose 40 MG; Start 10/06/18 at 21:00 Miscellaneous Information (Flu Vaccine Previously Dispensed) FLU VACCINE PREVIOU... NOTE PRN XX NOTE; Start 10/06/18 at 18:00 Meropenem/Sodium Chloride 50 ml @ 100 mls/hr Q12 IVPB Last administered on 10/08/18 08:54; Admin Dose 100 MLS/HR; Start 10/07/18 at 12:00 Midazolam HCl 50 ml @ 0 mls/hr TITRATE IV Last administered on 10/08/18 09:09; Admin Dose 3 MLS/HR; Start 10/08/18 at 10:00 Digoxin (Digoxin) 125 mcg DAILY@13 IV Last administered on 10/08/18at 13:21; Admin Dose 125 MCG; Start 10/08/18 at 13:00 Linezolid 300 ml @ 300 mls/hr Q12 IVPB Last administered on 10/08/18at 14:12; Admin Dose 300 MLS/HR; Start 10/08/18 at 12:30 Allergies: Coded Allergies: Penicillins (Verified Allergy, Unknown, 08/28/18) Sulfa (Sulfonamide Antibiotics) (Verified Allergy, Unknown, 08/28/18) clindamycin (Verified Allergy, Unknown, 08/28/18) ketorolac (Verified Allergy, Unknown, 08/28/18) lactase (Verified Allergy, Unknown, 08/28/18) Uncoded Allergies: TRYPTOPHAN (Allergy, Unknown, 08/28/18) Past Surgical History Past Surgical Hx: other (not available at this time ) Social History Alcohol Use: none Smoking Status: Never smoker Drug Use: none CHEYENNE JEAN NP Oct 08, 2018 14:34 FROYLAN WOOD Oct 08, 2018 15:50
--- NOTE | 2018-10-08 15:05 | EEG ---
EEG NOTE Report Details DATE OF TEST: 10/08/18 HISTORY: The patient is a 67-year-old F who presents with altered mental status and twitching movements. This EEG is requested to evaluate for seizures. SEDATION: None. CONDITIONS OF RECORDING: This EEG was recorded digitally on the [employer] machine, using the International 10-20 System of electrodes plus anterior temporals and [place]. STATES SAMPLED: Comatose. FINDINGS: The background is discontinuous...and somewhat asymmetric..predominated diffusely by polymorphic theta and alpha activity, with a preponderance of delta activity over the left hemisphere.. The normal [id number] frequency-amplitude gradient was absent. Photic stimulation does not elicit any definite driving responses or epileptiform discharges. Hyperventilation was not performed. No epileptiform discharges were seen. IMPRESSION: Abnormal electroencephalogram due to: severe left hemispheric on diffuse slowing COMMENT: The slowing of the background indicates severe, diffuse cortical dysfunction of nonspecific etiology, with perhaps a superimposed structural abnormality in the left hemisphere... FROYLAN WOOD Oct 08, 2018 15:05
--- NOTE | 2018-10-08 18:22 | CONS ---
Assessment/Plan Assessment/Plan Assessment/Plan (Daily) 1. Non Oliguric Acute kidney injury due to ATN from septic shock 2. Septic shock due to UTI 3. acute UTI with Urine Cx growing E.Coli 4. Acute hypoxic respiratory failure intubated on ventilator 5. H/o HTN 6 H/o HL 7. H/o Hypothyroidism 8. Bacteremia with blood cx 2/2 growing E.Coli Plan: pt remains intubated, BUN/Cr rising to 110/3.88, urine output 1.3 liter in last 24 hr, K low, replaced for today Id following , IV abx for UTI and bacteremia , Renally dose all abx and monitor electrolytes if BUN/Cr continue to worsen and pt remains oliguric, will discuss with family about possible options of HD will follow up Consultation Date/Type/Reason Admit Date/Time Oct 06, 2018 at 09:29 Initial Consult Date 10/06/18 Type of Consult NEPHROLOGY Requesting Provider: MANUEL ALEMAN Date/Time of Note DATE: 10/08/18 TIME: 18:22 24 HR Interval Summary Free Text/Dictation pt went into atrial fibrillation HR in 160s, on amiodarone gtt, Exam/Review of Systems Exam Vitals Vital Signs Date Temp Pulse Resp B/P (MAP) Pulse Ox O2 O2 Flow FiO2 Time Delivery Rate 10/08/18 138 28 100 30 17:05 10/08/18 87/59 (68) Mechanical 16:30 Ventilator 10/08/18 97.5 16:00 10/06/18 15.0 08:15 Intake and Output 10/07/18 10/07/18 10/08/18 1515:00 23:00 07:00 IntakeIntake Total 687.19 ml 762.52 ml 659.465 ml OutputOutput Total 170 ml 600 ml 730 ml BalanceBalance 517.19 ml 162.52 ml -70.535 ml Exam Constitutional: non-verbal, other (Intuabted, on ventilator ) Respiratory: congested cough, crackles/rales, diminished breath sounds Cardiovascular: nl pulses, irregular rhythm Gastrointestinal: soft, non-tender Musculoskeletal: swelling Neurological: other (sedated on ventilator ) Results Result Diagram: 10/08/18 0450 10/08/18 0450 Results 24hrs Laboratory Tests Test 10/07/18 22:54 10/08/18 04:50 10/08/18 07:00 10/08/18 07:58 Activated 64.0 H 62.[address] Time White Blood Count 16.6 H Red Blood Count 2.89 L Hemoglobin 9.2 L Hematocrit 26.1 L Mean Corpuscular 90.3 Volume Mean Corpuscular 31.8 Hemoglobin Mean Corpuscular 35.2 Hemoglobin Concent Red Cell 14.4 Distribution Width Platelet Count 192 Mean Platelet 12.1 H Volume Immature 4.000 H Granulocytes % Neutrophils % Segmented 60 Neutrophils % (Manual) Band Neutrophils % 28 H (Manual) Lymphocytes % Lymphocytes % 7 L (Manual) Monocytes % Monocytes % 4 (Manual) Eosinophils % Basophils % Promyelocytes % 1 H (Manual) Nucleated Red 0.0 Blood Cells % Immature 0.670 H Granulocytes # Neutrophils # Neutrophils # 10.7 H (Manual) Band Neutrophils # 4.6 H Lymphocytes 1.1 (Manual) Lymphocytes # Monocytes # Monocytes # 0.6 (Manual) Eosinophils # Basophils # Promyelocytes # 0.1 H Nucleated Red Blood Cells # Platelet Estimate NORMAL Giant Platelets 2 H Poikilocytosis 1+ Anisocytosis 3+ Macrocytosis 3+ Target Cells 1+ Ovalocytes 1+ Sodium Level 138 Potassium Level 3.2 L Chloride Level 107 Carbon Dioxide 14 L Level Anion Gap 17 H Blood Urea 110 H Nitrogen Creatinine 3.88 H Est Glomerular 12 L Filtrat Rate mL/min Glucose Level 132 Calcium Level 8.8 Blood Gas Specimen Blood arterial Source Arterial Blood 10/08/2018 6:59:34 Date Drawn AM Arterial Blood pH 7.470 H (Temp corrected) Arterial Blood 20.5 L pCO2 (Temp correct) Arterial Blood pO2 113.8 H (Temp corrected) Arterial Blood 14.6 L HCO3 Arterial Blood -7.3 L Base Excess Arterial Blood 98.1 H Oxygen Saturation Greg Test ACCEPTAB Arterial Blood Gas Right Radial Puncture Site Arterial 0.3 Blood Carboxyhemog lobin Arterial Blood 0.2 Methemoglobin Blood Gas A-a O2 76.0 H Differential Oxyhemoglobin 97.6 Percent Blood Gas 37.0 Temperature Blood Gas Actual 28 Respiration Rate Blood Gas Modality VENT - AC FiO2 30.0 Blood Gas Tidal 450.0 Volume Blood Gas High 33.0 PEEP Setting Blood Gas Low PEEP 5.0 Setting Blood Gas Notified TM Whom Blood Gas Notified 10/08/2018 7:13:10 Time AM Creatine Kinase 37 Creatine Kinase 3.0 Index Creatinine Kinase 1.10 MB (Mass) Troponin I 0.865 *H Test 10/08/18 11:51 Activated 107.9 *H Partial Thrombopla st Time Medications Medication Current Medications IV Flush (NS 3 ml) 3 ml PER PROTOCOL IV ; Start 10/06/18 at 09:30 Ondansetron HCl (Zofran Inj) 4 mg Q6H PRN IV NAUSEA/VOMITING; Start 10/06/18 at 09:30 Acetaminophen (Tylenol Tab) 650 mg Q6H PRN PO .PAIN 1-3 OR TEMP; Start 10/06/18 at 09:30 Acetaminophen/ Hydrocodone Bitart ([place] (5/325)) 1 tab Q6H PRN PO .MOD PAIN 4- 6; Start 10/06/18 at 09:30 Morphine Sulfate (morphine) 2 mg Q4H PRN IV .SEVERE PAIN 7-10; Start 10/06/18 at 09:30 Docusate Sodium (Colace) 100 mg Q12H PRN PO .CONSTIPATION; Start 10/06/18 at 09:30 Magnesium Hydroxide (Milk Of Mag) 30 ml DAILY PRN PO .CONSTIPATION; Start 10/06/18 at 09:30 Lorazepam (Ativan) 0.5 mg Q6H PRN IV ANXIETY Last administered on 10/08/18at 08:08; Admin Dose 0.5 MG; Start 10/06/18 at 09:30 Albuterol/ Ipratropium (Duoneb) 3 ml Q4H RESP THERAPY PRN HHN SHORTNESS OF BREATH; Start 10/06/18 at 09:30 Nitroglycerin (Nitroglycerin (Sl Tab) 0.4 Mg) 1 tab Q5M PRN SL ANGINA; Start 10/06/18 at 09:30 Bisacodyl (Dulcolax) 10 mg DAILY PRN PO CONSTIPATION; Start 10/06/18 at 09:30 Divalproex Sodium (Depakote) 500 mg BID PO Last administered on 10/08/18at 08:14; Admin Dose 500 MG; Start 10/06/18 at 21:00 Donepezil HCl (Aricept) 5 mg QHS PO Last administered on 10/07/18at 20:46; Admin Dose 5 MG; Start 10/06/18 at 21:00 Lactulose (Enulose) 20 gm TID PRN PO CONSTIPATION; Start 10/06/18 at 09:30 Levetiracetam (Keppra) 500 mg BID PO Last administered on 10/08/18 08:14; Admin Dose 500 MG; Start 10/06/18 at 21:00 Levothyroxine Sodium (Synthroid) 50 mcg BEFORE BREAKFAST PO Last administered on 10/08/18 08:14; Admin Dose 50 MCG; Start 10/07/18 at 07:00 Mineral Oil (Fleet Mineral Oil Enema) 133 ml DAILY PRN IN CONSTIPATION; Start 10/06/18 at 09:30 Multivitamins Therapeutic (Theragran) 1 tab DAILY PO Last administered on 10/08/18 08:14; Admin Dose 1 TAB; Start 10/07/18 at 09:00 Polyethylene Glycol (Miralax) 17 gm BID PO Last administered on 10/08/18 08:14; Admin Dose 17 GM; Start 10/06/18 at 21:00 Famotidine (Pepcid Iv) 20 mg DAILY IV Last administered on 10/08/18 08:56; Admin Dose 20 MG; Start 10/06/18 at 11:00 Norepinephrine 32 mg/Dextrose 250 ml @ 0.47 mls/hr TITRATE IV Last administered on 10/08/18 12:53; Admin Dose 4.69 MLS/HR; Start 10/06/18 at 11:30 Aspirin (Aspirin) 81 mg DAILY NGT Last administered on 10/08/18 08:55; Admin Dose 81 MG; Start 10/06/18 at 12:30 Heparin Sodium (Porcine) (Heparin (1000 Units/ml)) 4,000 unit PER PROTOCOL PRN IV aPTT<47; Start 10/06/18 at 12:30 Heparin Sodium (Porcine) 250 ml @ 8 mls/hr PER PROTOCOL IV Last administered on 10/07/18 16:58; Admin Dose 8.8 MLS/HR; Start 10/06/18 at 12:30 Atorvastatin Calcium (Lipitor) 40 mg DAILY@21 NGT Last administered on 10/07/18 20:45; Admin Dose 40 MG; Start 10/06/18 at 21:00 Miscellaneous Information (Flu Vaccine Previously Dispensed) FLU VACCINE PREVIOU... NOTE PRN XX NOTE; Start 10/06/18 at 18:00 Meropenem/Sodium Chloride 50 ml @ 100 mls/hr Q12 IVPB Last administered on 10/08/18at 08:54; Admin Dose 100 MLS/HR; Start 10/07/18 at 12:00 Midazolam HCl 50 ml @ 0 mls/hr TITRATE IV Last administered on 10/08/18 09:09; Admin Dose 3 MLS/HR; Start 10/08/18 at 10:00 Digoxin (Digoxin) 125 mcg DAILY@13 IV Last administered on 10/08/18at 13:21; Admin Dose 125 MCG; Start 10/08/18 at 13:00 Linezolid 300 ml @ 300 mls/hr Q12 IVPB Last administered on 10/08/18at 14:12; Admin Dose 300 MLS/HR; Start 10/08/18 at 12:30 Fentanyl 100 ml @ 2.5 mls/hr TITRATE IV ; Start 10/08/18 at 16:30 Lorazepam (Ativan) 1 mg Q6H PRN IV seizure; Start 10/08/18 at 16:00 VALARIE BENNETT MD Oct 08, 2018 18:22
[2018-10-08] MEDS: HEPARIN 25000 UNITS/250 ML 250 ML IV SCH (20:07)
[2018-10-08] MEDS ORDERED: PHENYLephrine 20MG IN 250 ML 250 ML IV SCH (21:00)
[2018-10-08] MEDS: ATORVASTATIN 40 MG TAB NGT SCH (21:50)
[2018-10-08] MEDS: DONEPEZIL 5 MG TAB PO SCH (21:50)
[2018-10-08] MEDS: BALSAM PERU/CASTOR OIL 60 GM TUBE TOP SCH (22:13)
[2018-10-09] VITALS (99 sets, daily range): BP systolic 51–164; BP diastolic 34–109; PULSE 69–163; RESP 22–30
[2018-10-09] MEDS: FENTAnyl (DRIP) 1000 mcg/100mL 100 ML IV SCH (01:14)
[2018-10-09] MEDS: MIDAZOLAM (DRIP) 50 mg/50 mL 50 ML IV SCH ×2 (03:38→22:21)
[2018-10-09] MEDS: ACETAMINOPHEN 325 MG TAB PO PRN (06:25)
[2018-10-09] MEDS: LEVOTHYROXINE 50 MCG TAB PO SCH ×2 (06:25→10:21)
--- NOTE | 2018-10-09 08:34 | CONS ---
Assessment/Plan Assessment/Plan Assessment/Plan (Daily) 1. Non Oliguric Acute kidney injury due to ATN from septic shock 2. Septic shock due to UTI 3. acute UTI with Urine Cx growing E.Coli 4. Acute hypoxic respiratory failure intubated on ventilator 5. H/o HTN 6 H/o HL 7. H/o Hypothyroidism 8. Bacteremia with blood cx 2/2 growing E.Coli Plan: pt remains intubated, BUN/Cr worsened to 113/3.39, urine output 1.[address] 24 hr,HCo3 16- pt has no family members available , I will give Albumin 25% 100ml Q 8 hr x 6 doses then stop Id following , IV abx for UTI and bacteremia , Renally dose all abx and monitor electrolytes if BUN/Cr continue to worsen and pt remains oliguric, then we will need SW help to find out family members will follow up Consultation Date/Type/Reason Admit Date/Time Oct 06, 2018 at 09:29 Initial Consult Date 10/06/18 Type of Consult NEPHROLOGY Requesting Provider: MANUEL ALEMAN Date/Time of Note DATE: 10/09/18 TIME: 08:34 24 HR Interval Summary Free Text/Dictation pt remains intubated, made good urine output 1.9 liter, BUN rising, Cr stable, Exam/Review of Systems Exam Vitals Vital Signs Date Temp Pulse Resp B/P (MAP) Pulse Ox O2 O2 Flow FiO2 Time Delivery Rate 10/09/18 98 28 100 30 08:27 10/09/18 93/60 (71) 06:30 10/09/18 100.9 06:25 10/09/18 [place] 06:00 l Ventilato r 10/06/18 15.0 08:15 Intake and Output 10/08/18 10/08/18 10/09/18 1515:00 23:00 07:00 IntakeIntake Total 870.88 ml 641.38 ml 527.71 ml OutputOutput Total 560 ml 230 ml 350 ml BalanceBalance 310.88 ml 411.38 ml 177.71 ml Exam Exam Constitutional: non-verbal, other (Intuabted, on ventilator ) Respiratory: congested cough, crackles/rales, diminished breath sounds Cardiovascular: nl pulses, irregular rhythm Gastrointestinal: soft, non-tender Musculoskeletal: swelling Neurological: other (sedated on ventilator ) Results Result Diagram: 10/09/18 0500 10/09/18 0500 Results 24hrs Laboratory Tests Test 10/08/18 11:51 10/08/18 17:40 10/09/18 02:00 10/09/18 05:00 Activated 107.9 *H 78.2 *H 59.9 H Partial Thromboplast Time Prothrombin Time 16.1 #H Prothrombin Time Ratio 1.3 INR International 1.28 Normalized Ratio Valproic Acid (Depakene) 23 L Level White Blood Count 15.9 H Red Blood Count 2.87 L Hemoglobin 9.0 L Hematocrit 25.6 L Mean Corpuscular Volume 89.2 Mean Corpuscular 31.4 Hemoglobin Mean Corpuscular 35.2 Hemoglobin Concent Red Cell Distribution 14.7 H Width Platelet Count 235 # Mean Platelet Volume 12.0 H Immature Granulocytes % 11.700 H Neutrophils % Segmented Neutrophils 45 % (Manual) Band Neutrophils % 4 (Manual) Lymphocytes % Lymphocytes % (Manual) 34 Reactive Lymphocytes 3 H % (Manual) Monocytes % Monocytes % (Manual) 11 Eosinophils % Basophils % Myelocytes % (Manual) 1 H Plasma Cells % (manual) 2 Nucleated Red Blood 1 H Cells % Immature Granulocytes # 1.870 H Neutrophils # Neutrophils # (Manual) 7.3 Band Neutrophils # 0.6 Lymphocytes (Manual) 5.4 H Lymphocytes # Reactive Lymphocytes # 0.4 H Monocytes # Monocytes # (Manual) 1.7 H Eosinophils # Basophils # Myelocytes # 0.1 H Plasma Cells # (manual) 0.3 H Nucleated Red Blood Cells # Toxic Granulation 1+ Platelet Estimate NORMAL Giant Platelets 11 H Platelet Morphology @See below Comment Poikilocytosis 1+ Anisocytosis 2+ Macrocytosis 2+ Sodium Level 137 Potassium Level 3.6 Chloride Level 111 H Carbon Dioxide Level 16 L Anion Gap 10 # Blood Urea Nitrogen 113 H Creatinine 3.39 H Est Glomerular Filtrat 14 L Rate mL/min Glucose Level 113 Calcium Level 8.4 Phosphorus Level 4.6 Magnesium Level 2.9 H Medications Medication Current Medications IV Flush (NS 3 ml) 3 ml PER PROTOCOL IV ; Start 10/06/18 at 09:30 Ondansetron HCl (Zofran Inj) 4 mg Q6H PRN IV NAUSEA/VOMITING; Start 10/06/18 at 09:30 Acetaminophen (Tylenol Tab) 650 mg Q6H PRN PO .PAIN 1-3 OR TEMP Last administ ered on 10/09/18at 06:25; Admin Dose 650 MG; Start 10/06/18 at 09:30 Acetaminophen/ Hydrocodone Bitart ([place] (5/325)) 1 tab Q6H PRN PO .MOD PAIN 4- 6; Start 10/06/18 at 09:30 Morphine Sulfate (morphine) 2 mg Q4H PRN IV .SEVERE PAIN 7-10; Start 10/06/18 at 09:30 Docusate Sodium (Colace) 100 mg Q12H PRN PO .CONSTIPATION; Start 10/06/18 at 09:30 Magnesium Hydroxide (Milk Of Mag) 30 ml DAILY PRN PO .CONSTIPATION; Start 10/06/18 at 09:30 Lorazepam (Ativan) 0.5 mg Q6H PRN IV ANXIETY Last administered on 10/08/18at 08:08; Admin Dose 0.5 MG; Start 10/06/18 at 09:30 Albuterol/ Ipratropium (Duoneb) 3 ml Q4H RESP THERAPY PRN HHN SHORTNESS OF BREATH; Start 10/06/18 at 09:30 Nitroglycerin (Nitroglycerin (Sl Tab) 0.4 Mg) 1 tab Q5M PRN SL ANGINA; Start 10/06/18 at 09:30 Bisacodyl (Dulcolax) 10 mg DAILY PRN PO CONSTIPATION; Start 10/06/18 at 09:30 Divalproex Sodium (Depakote) 500 mg BID PO Last administered on 10/08/18at 21:50; Admin Dose 500 MG; Start 10/06/18 at 21:00 Donepezil HCl (Aricept) 5 mg QHS PO Last administered on 10/08/18at 21:50; Admin Dose 5 MG; Start 10/06/18 at 21:00 Lactulose (Enulose) 20 gm TID PRN PO CONSTIPATION; Start 10/06/18 at 09:30 Levetiracetam (Keppra) 500 mg BID PO Last administered on 10/08/18at 21:51; Admin Dose 500 MG; Start 10/06/18 at 21:00 Levothyroxine Sodium (Synthroid) 50 mcg BEFORE BREAKFAST PO Last administered on 10/09/18at 06:25; Admin Dose 50 MCG; Start 10/07/18 at 07:00 Mineral Oil (Fleet Mineral Oil Enema) 133 ml DAILY PRN [place] CONSTIPATION; Start 10/06/18 at 09:30 Multivitamins Therapeutic (Theragran) 1 tab DAILY PO Last administered on 10/08/18 08:14; Admin Dose 1 TAB; Start 10/07/18 at 09:00 Polyethylene Glycol (Miralax) 17 gm BID PO Last administered on 10/08/18 21:51; Admin Dose 17 GM; Start 10/06/18 at 21:00 Famotidine (Pepcid Iv) 20 mg DAILY IV Last administered on 10/08/18 08:56; Admin Dose 20 MG; Start 10/06/18 at 11:00 Norepinephrine 32 mg/Dextrose 250 ml @ 0.47 mls/hr TITRATE IV Last administered on 10/08/18 12:53; Admin Dose 4.69 MLS/HR; Start 10/06/18 at 11:30 Aspirin (Aspirin) 81 mg DAILY NGT Last administered on 10/08/18 08:55; Admin Dose 81 MG; Start 10/06/18 at 12:30 Heparin Sodium (Porcine) (Heparin (1000 Units/ml)) 4,000 unit PER PROTOCOL PRN IV aPTT<47; Start 10/06/18 at 12:30 Heparin Sodium (Porcine) 250 ml @ 8 mls/hr PER PROTOCOL IV Last administered on 10/08/18 20:07; Admin Dose 7 MLS/HR; Start 10/06/18 at 12:30 Atorvastatin Calcium (Lipitor) 40 mg DAILY@21 NGT Last administered on 10/08/18 21:50; Admin Dose 40 MG; Start 10/06/18 at 21:00 Miscellaneous Information (Flu Vaccine Previously Dispensed) FLU VACCINE SD EVIOU... NOTE PRN XX NOTE; Start 10/06/18 at 18:00 Meropenem/Sodium Chloride 50 ml @ 100 mls/hr Q12 IVPB Last administered on 10/08/18 21:48; Admin Dose 100 MLS/HR; Start 10/07/18 at 12:00 Midazolam HCl 50 ml @ 0 mls/hr TITRATE IV Last administered on 10/09/18 03:38; Admin Dose 6 MLS/HR; Start 10/08/18 at 10:00 Digoxin (Digoxin) 125 mcg DAILY@13 IV Last administered on 10/08/18at 13:21; Admin Dose 125 MCG; Start 10/08/18 at 13:00 Linezolid 300 ml @ 300 mls/hr Q12 IVPB Last administered on 10/08/18at 22:18; Admin Dose 300 MLS/HR; Start 10/08/18 at 12:30 Fentanyl 100 ml @ 2.5 mls/hr TITRATE IV Last administered on 10/09/18at 01:14; Admin Dose 2.5 MLS/HR; Start 10/08/18 at 16:30 Lorazepam (Ativan) 1 mg Q6H PRN IV seizure; Start 10/08/18 at 16:00 Phenylephrine HCl 250 ml @ 75 mls/hr TITRATE IV Last administered on 10/08/18at 21:44; Admin Dose 75 MLS/HR; Start 10/08/18 at 21:00 VALARIE BENNETT MD Oct 09, 2018 08:34
--- NOTE | 2018-10-09 09:33 | CONS ---
Assessment/Plan Assessment/Plan Hospital Course (Demo Recall) IMP: 1. Nstemi- in setting of renal failure and shock. Slowly decreasing 2.Shock-on levo 3.Tachycardia-S tach at this time 4.UTI 5.PAF with RVR-now recurrent AF with RVR 6.Renal failure 7.Dyslipidemia 8.Sz d/o 9. Hypothyroid Recc: -ICU -wean pressors as tolerated -Follow rhythm and rate closely -Continue asa/heparin and trend cardiac enzymes -Continue abx's and f/u cx data -Continue statin -Give amio bolus and then resume po amio BID in attempt to return to SR and remain Consultation Date/Type/Reason Admit Date/Time Oct 06, 2018 at 09:29 Initial Consult Date 10/06/18 Type of Consult Cardiology Reason for Consultation Nstemi Requesting Provider: MANUEL ALEMAN Date/Time of Note DATE: 10/09/18 TIME: 09:30 Exam/Review of Systems Vital Signs Vitals Vital Signs Date Temp Pulse Resp B/P (MAP) Pulse Ox O2 O2 Flow FiO2 Time Delivery Rate 10/09/18 78 28 113/68 Mechanical 08:45 (83) Ventilator 10/09/18 100 30 08:27 10/09/18 98.4 08:00 10/06/18 15.0 08:15 Intake and Output 10/08/18 10/08/18 10/09/18 1515:00 23:00 07:00 IntakeIntake Total 870.88 ml 641.38 ml 527.71 ml OutputOutput Total 560 ml 230 ml 350 ml BalanceBalance 310.88 ml 411.38 ml 177.71 ml Exam Exam Review of Systems: CONSTITUTIONAL: No fevers, chills. PULMONARY: No sob CARDIOVASCULAR: No chest pain/palpitations GASTROINTESTINAL: No nausea/vomiting. GENITOURINARY: No hematuria/dysuria. MUSCULOSKELETAL: No myagias/arthalgias. PSYCHIATRIC: The patient denies depression. NEUROLOGIC: No weakness Constitutional: alert Psych: no complaints Head: normocephalic ENMT: mucosa pink and moist Neck: supple, jvd (9 cm water) Cardiovascular: regular rate and rhythm Gastrointestinal: soft, non-tender Musculoskeletal: muscle tone (normal) Extremities: edema (none) Neurological: other (No focal deficits) Labs Result Diagram: 10/09/18 0500 10/09/18 0500 Results 24hrs Laboratory Tests Test 10/08/18 11:51 10/08/18 17:40 10/09/18 02:00 10/09/18 05:00 Activated 107.9 *H 78.2 *H 59.9 H Partial Thromboplast Time Prothrombin Time 16.1 #H Prothrombin Time Ratio 1.3 INR International 1.28 Normalized Ratio Valproic Acid (Depakene) 23 L Level White Blood Count 15.9 H Red Blood Count 2.87 L Hemoglobin 9.0 L Hematocrit 25.6 L Mean Corpuscular Volume 89.2 Mean Corpuscular 31.4 Hemoglobin Mean Corpuscular 35.2 Hemoglobin Concent Red Cell Distribution 14.7 H Width Platelet Count 235 # Mean Platelet Volume 12.0 H Immature Granulocytes % 11.700 H Neutrophils % Segmented Neutrophils 45 % (Manual) Band Neutrophils % 4 (Manual) Lymphocytes % Lymphocytes % (Manual) 34 Reactive Lymphocytes 3 H % (Manual) Monocytes % Monocytes % (Manual) 11 Eosinophils % Basophils % Myelocytes % (Manual) 1 H Plasma Cells % (manual) 2 Nucleated Red Blood 1 H Cells % Immature Granulocytes # 1.870 H Neutrophils # Neutrophils # (Manual) 7.3 Band Neutrophils # 0.6 Lymphocytes (Manual) 5.4 H Lymphocytes # Reactive Lymphocytes # 0.4 H Monocytes # Monocytes # (Manual) 1.7 H Eosinophils # Basophils # Myelocytes # 0.1 H Plasma Cells # (manual) 0.3 H Nucleated Red Blood Cells # Toxic Granulation 1+ Platelet Estimate NORMAL Giant Platelets 11 H Platelet Morphology @See below Comment Poikilocytosis 1+ Anisocytosis 2+ Macrocytosis 2+ Sodium Level 137 Potassium Level 3.6 Chloride Level 111 H Carbon Dioxide Level 16 L Anion Gap 10 # Blood Urea Nitrogen 113 H Creatinine 3.39 H Est Glomerular Filtrat 14 L Rate mL/min Glucose Level 113 Calcium Level 8.4 Phosphorus Level 4.6 Magnesium Level 2.9 H Medications Medications Current Medications IV Flush (NS 3 ml) 3 ml PER PROTOCOL IV ; Start 10/06/18 at 09:30 Ondansetron HCl (Zofran Inj) 4 mg Q6H PRN IV NAUSEA/VOMITING; Start 10/06/18 at 09:30 Acetaminophen (Tylenol Tab) 650 mg Q6H PRN PO .PAIN 1-3 OR TEMP Last administered on 10/09/18 06:25; Admin Dose 650 MG; Start 10/06/18 at 09:30 Acetaminophen/ Hydrocodone Bitart ([place] (5/325)) 1 tab Q6H PRN PO .MOD PAIN 4- 6; Start 10/06/18 at 09:30 Morphine Sulfate (morphine) 2 mg Q4H PRN IV .SEVERE PAIN 7-10; Start 10/06/18 at 09:30 Docusate Sodium (Colace) 100 mg Q12H PRN PO .CONSTIPATION; Start 10/06/18 at 09:30 Magnesium Hydroxide (Milk Of Mag) 30 ml DAILY PRN PO .CONSTIPATION; Start 10/06/18 at 09:30 Lorazepam (Ativan) 0.5 mg Q6H PRN IV ANXIETY Last administered on 10/08/18at 08:08; Admin Dose 0.5 MG; Start 10/06/18 at 09:30 Albuterol/ Ipratropium (Duoneb) 3 ml Q4H RESP THERAPY PRN HHN SHORTNESS OF BREATH; Start 10/06/18 at 09:30 Nitroglycerin (Nitroglycerin (Sl Tab) 0.4 Mg) 1 tab Q5M PRN SL ANGINA; Start 10/06/18 at 09:30 Bisacodyl (Dulcolax) 10 mg DAILY PRN PO CONSTIPATION; Start 10/06/18 at 09:30 Divalproex Sodium (Depakote) 500 mg BID PO Last administered on 10/08/18at 21:50; Admin Dose 500 MG; Start 10/06/18 at 21:00 Donepezil HCl (Aricept) 5 mg QHS PO Last administered on 10/08/18at 21:50; Admin Dose 5 MG; Start 10/06/18 at 21:00 Lactulose (Enulose) 20 gm TID PRN PO CONSTIPATION; Start 10/06/18 at 09:30 Levetiracetam (Keppra) 500 mg BID PO Last administered on 10/08/18at 21:51; Admin Dose 500 MG; Start 10/06/18 at 21:00 Levothyroxine Sodium (Synthroid) 50 mcg BEFORE BREAKFAST PO Last administered on 10/09/18at 06:25; Admin Dose 50 MCG; Start 10/07/18 at 07:00 Mineral Oil (Fleet Mineral Oil Enema) 133 ml DAILY PRN [place] CONSTIPATION; Start 10/06/18 at 09:30 Multivitamins Therapeutic (Theragran) 1 tab DAILY PO Last administered on 10/08/18 08:14; Admin Dose 1 TAB; Start 10/07/18 at 09:00 Polyethylene Glycol (Miralax) 17 gm BID PO Last administered on 10/08/18 21:51; Admin Dose 17 GM; Start 10/06/18 at 21:00 Famotidine (Pepcid Iv) 20 mg DAILY IV Last administered on 10/08/18 08:56; Admin Dose 20 MG; Start 10/06/18 at 11:00 Norepinephrine 32 mg/Dextrose 250 ml @ 0.47 mls/hr TITRATE IV Last administered on 10/08/18 12:53; Admin Dose 4.69 MLS/HR; Start 10/06/18 at 11:30 Aspirin (Aspirin) 81 mg DAILY NGT Last administered on 10/08/18 08:55; Admin Dose 81 MG; Start 10/06/18 at 12:30 Heparin Sodium (Porcine) (Heparin (1000 Units/ml)) 4,000 unit PER PROTOCOL PRN IV aPTT<47; Start 10/06/18 at 12:30 Heparin Sodium (Porcine) 250 ml @ 8 mls/hr PER PROTOCOL IV Last administered on 10/08/18 20:07; Admin Dose 7 MLS/HR; Start 10/06/18 at 12:30 Atorvastatin Calcium (Lipitor) 40 mg DAILY@21 NGT Last administered on 10/08/18 21:50; Admin Dose 40 MG; Start 10/06/18 at 21:00 Miscellaneous Information (Flu Vaccine Previously Dispensed) FLU VACCINE PREVIOU... NOTE PRN XX NOTE; Start 10/06/18 at 18:00 Meropenem/Sodium Chloride 50 ml @ 100 mls/hr Q12 IVPB Last administered on 10/08/18 21:48; Admin Dose 100 MLS/HR; Start 10/07/18 at 12:00 Midazolam HCl 50 ml @ 0 mls/hr TITRATE IV Last administered on 10/09/18 03:38; Admin Dose 6 MLS/HR; Start 10/08/18 at 10:00 Digoxin (Digoxin) 125 mcg DAILY@13 IV Last administered on 10/08/18at 13:21; Admin Dose 125 MCG; Start 10/08/18 at 13:00 Linezolid 300 ml @ 300 mls/hr Q12 IVPB Last administered on 10/08/18at 22:18; Admin Dose 300 MLS/HR; Start 10/08/18 at 12:30 Fentanyl 100 ml @ 2.5 mls/hr TITRATE IV Last administered on 10/09/18 01:14; Admin Dose 2.5 MLS/HR; Start 10/08/18 at 16:30 Lorazepam (Ativan) 1 mg Q6H PRN IV seizure; Start 10/08/18 at 16:00 Phenylephrine HCl 250 ml @ 75 mls/hr TITRATE IV Last administered on 10/08/18at 21:44; Admin Dose 75 MLS/HR; Start 10/08/18 at 21:00 Albumin Human 100 ml @ 100 mls/hr Q8H IV ; Start 10/09/18 at 09:00; Stop 10/11/18 at 01:59 ANGELA CARY Oct 09, 2018 09:33
[2018-10-09] MEDS ORDERED: AMIODARONE 150MG/D5W BOLUS 100 ML IV ONE (10:00)
[2018-10-09] MEDS: LINEZOLID 600 MG/D5W (PMX) 300 ML IVPB SCH ×2 (10:19→20:54)
[2018-10-09] MEDS: POLYETHYLENE GLYCOL 17 GM PACKET PO SCH ×2 (10:20→20:53)
[2018-10-09] MEDS: MULTIVITAMINS THERAPEUTIC TAB PO SCH (10:21)
[2018-10-09] MEDS: DIVALPROEX (EC) 500 MG TAB PO SCH ×2 (10:21→20:54)
[2018-10-09] MEDS: ASPIRIN 81 MG TAB NGT SCH (10:21)
[2018-10-09] MEDS: LEVETIRACETAM 500 MG TAB PO SCH ×2 (10:21→20:54)
[2018-10-09] MEDS: BALSAM PERU/CASTOR OIL 60 GM TUBE TOP SCH (10:21)
[2018-10-09] MEDS: ALBUMIN HUMAN 25% 100 ML IV SCH ×2 (10:30→18:17)
[2018-10-09] MEDS: FAMOTIDINE 20 MG INJ IV SCH (10:30)
[2018-10-09] MEDS: MEROPENEM 500MG/50 ML (PMX) 50 ML IVPB SCH ×2 (10:40→20:59)
--- NOTE | 2018-10-09 11:26 | CONS ---
Consult Date/Type/Reason Admit Date/Time Oct 06, 2018 at 09:29 Initial Consult Date 10/06/18 Type of Consult Pulmonary Requesting Provider: MANUEL ALEMAN Date/Time of Note DATE: 10/09/18 TIME: 11:24 Subjective Remains somnolent on mechanical ventilation. Still requiring vasopressors. Currently off now back in sinus rhythm. Pending EEG. Objective Vital Signs Date Temp Pulse Resp B/P (MAP) Pulse Ox O2 O2 Flow FiO2 Time Delivery Rate 10/09/18 115 28 100 30 11:15 10/09/18 113/68 Mechanical 08:45 (83) Ventilator 10/09/18 98.4 08:00 10/06/18 15.0 08:15 Intake and Output 10/08/18 10/08/18 10/09/18 1515:00 23:00 07:00 IntakeIntake Total 870.88 ml 641.38 ml 527.71 ml OutputOutput Total 560 ml 230 ml 350 ml BalanceBalance 310.88 ml 411.38 ml 177.71 ml Exam Elderly lady orally intubated on mechanical ventilation VITAL SIGNS: per chart NECK: Supple. No JVD or lymphadenopathy. CARDIAC EXAM: S1, S2. No added sounds or murmurs. CHEST: Diminished air entry bilaterally ABDOMEN: Soft, nontender. No guarding or rebound. EXTREMITIES: No cyanosis, clubbing or edema. NEUROLOGIC: Generalized weakness. No focal deficits. Vent Setting Ventilator Support Mode: AC Fraction of Inspired Oxygen pe: 30 Positive End Expiratory Pressu: 5.0 Results/Medications Result Diagram: 10/09/18 0500 10/09/18 0500 Results 24 hrs Laboratory Tests Test 10/08/18 11:51 10/08/18 17:40 10/09/18 02:00 10/09/18 05:00 Activated 107.9 *H 78.2 *H 59.9 H Partial Thromboplast Time Prothrombin Time 16.1 #H Prothrombin Time Ratio 1.3 INR International 1.28 Normalized Ratio Valproic Acid (Depakene) 23 L Level White Blood Count 15.9 H Red Blood Count 2.87 L Hemoglobin 9.0 L Hematocrit 25.6 L Mean Corpuscular Volume 89.2 Mean Corpuscular 31.4 Hemoglobin Mean Corpuscular 35.2 Hemoglobin Concent Red Cell Distribution 14.7 H Width Platelet Count 235 # Mean Platelet Volume 12.0 H Immature Granulocytes % 11.700 H Neutrophils % Segmented Neutrophils 45 % (Manual) Band Neutrophils % 4 (Manual) Lymphocytes % Lymphocytes % (Manual) 34 Reactive Lymphocytes 3 H % (Manual) Monocytes % Monocytes % (Manual) 11 Eosinophils % Basophils % Myelocytes % (Manual) 1 H Plasma Cells % (manual) 2 Nucleated Red Blood 1 H Cells % Immature Granulocytes # 1.870 H Neutrophils # Neutrophils # (Manual) 7.3 Band Neutrophils # 0.6 Lymphocytes (Manual) 5.4 H Lymphocytes # Reactive Lymphocytes # 0.4 H Monocytes # Monocytes # (Manual) 1.7 H Eosinophils # Basophils # Myelocytes # 0.1 H Plasma Cells # (manual) 0.3 H Nucleated Red Blood Cells # Toxic Granulation 1+ Platelet Estimate NORMAL Giant Platelets 11 H Platelet Morphology @See below Comment Poikilocytosis 1+ Anisocytosis 2+ Macrocytosis 2+ Sodium Level 137 Potassium Level 3.6 Chloride Level 111 H Carbon Dioxide Level 16 L Anion Gap 10 # Blood Urea Nitrogen 113 H Creatinine 3.39 H Est Glomerular Filtrat 14 L Rate mL/min Glucose Level 113 Calcium Level 8.4 Phosphorus Level 4.6 Magnesium Level 2.9 H Test 10/09/18 09:19 Prothrombin Time 15.2 H Prothrombin Time Ratio 1.2 INR International 1.19 Normalized Ratio Activated 74.0 *H Partial Thromboplast Time Medications Current Medications IV Flush (NS 3 ml) 3 ml PER PROTOCOL IV ; Start 10/06/18 at 09:30 Ondansetron HCl (Zofran Inj) 4 mg Q6H PRN IV NAUSEA/VOMITING; Start 10/06/18 at 09:30 Acetaminophen (Tylenol Tab) 650 mg Q6H PRN PO .PAIN 1-3 OR TEMP Last administered on 10/09/18at 06:25; Admin Dose 650 MG; Start 10/06/18 at 09:30 Acetaminophen/ Hydrocodone Bitart ([place] (5/325)) 1 tab Q6H PRN PO .MOD PAIN 4- 6; Start 10/06/18 at 09:30 Morphine Sulfate (morphine) 2 mg Q4H PRN IV .SEVERE PAIN 7-10; Start 10/06/18 at 09:30 Docusate Sodium (Colace) 100 mg Q12H PRN PO .CONSTIPATION; Start 10/06/18 at 09:30 Magnesium Hydroxide (Milk Of Mag) 30 ml DAILY PRN PO .CONSTIPATION; Start 10/06/18 at 09:30 Lorazepam (Ativan) 0.5 mg Q6H PRN IV ANXIETY Last administered on 10/08/18 08:08; Admin Dose 0.5 MG; Start 10/06/18 at 09:30 Albuterol/ Ipratropium (Duoneb) 3 ml Q4H RESP THERAPY PRN HHN SHORTNESS OF BREATH; Start 10/06/18 at 09:30 Nitroglycerin (Nitroglycerin (Sl Tab) 0.4 Mg) 1 tab Q5M PRN SL ANGINA; Start 10/06/18 at 09:30 Bisacodyl (Dulcolax) 10 mg DAILY PRN PO CONSTIPATION; Start 10/06/18 at 09:30 Divalproex Sodium (Depakote) 500 mg BID PO Last administered on 10/09/18 10:21; Admin Dose 500 MG; Start 10/06/18 at 21:00 Donepezil HCl (Aricept) 5 mg QHS PO Last administered on 10/08/18 21:50; Admin Dose 5 MG; Start 10/06/18 at 21:00 Lactulose (Enulose) 20 gm TID PRN PO CONSTIPATION; Start 10/06/18 at 09:30 Levetiracetam (Keppra) 500 mg BID PO Last administered on 10/09/18 10:21; Admin Dose 500 MG; Start 10/06/18 at 21:00 Levothyroxine Sodium (Synthroid) 50 mcg BEFORE BREAKFAST PO Last administered on 10/09/18 10:21; Admin Dose 50 MCG; Start 10/07/18 at 07:00 Mineral Oil (Fleet Mineral Oil Enema) 133 ml DAILY PRN [place] CONSTIPATION; Start 10/06/18 at 09:30 Multivitamins Therapeutic (Theragran) 1 tab DAILY PO Last administered on 10/09/18 10:21; Admin Dose 1 TAB; Start 10/07/18 at 09:00 Polyethylene Glycol (Miralax) 17 gm BID PO Last administered on 10/09/18 10:20; Admin Dose 17 GM; Start 10/06/18 at 21:00 Norepinephrine 32 mg/Dextrose 250 ml @ 0.47 mls/hr TITRATE IV Last administered on 10/08/18 12:53; Admin Dose 4.69 MLS/HR; Start 10/06/18 at 11:30 Aspirin (Aspirin) 81 mg DAILY NGT Last administered on 10/09/18 10:21; Admin Dose 81 MG; Start 10/06/18 at 12:30 Heparin Sodium (Porcine) (Heparin (1000 Units/ml)) 4,000 unit PER PROTOCOL PRN IV aPTT<47; Start 10/06/18 at 12:30 Heparin Sodium (Porcine) 250 ml @ 8 mls/hr PER PROTOCOL IV Last administered on 10/08/18 20:07; Admin Dose 7 MLS/HR; Start 10/06/18 at 12:30 Atorvastatin Calcium (Lipitor) 40 mg DAILY@21 NGT Last administered on 10/08/18 21:50; Admin Dose 40 MG; Start 10/06/18 at 21:00 Miscellaneous Information (Flu Vaccine Previously Dispensed) FLU VACCINE PREVIOU... NOTE PRN XX NOTE; Start 10/06/18 at 18:00 Meropenem/Sodium Chloride 50 ml @ 100 mls/hr Q12 IVPB Last administered on 10/09/18 10:40; Admin Dose 100 MLS/HR; Start 10/07/18 at 12:00 Midazolam HCl 50 ml @ 0 mls/hr TITRATE IV Last administered on 10/09/18 03:38; Admin Dose 6 MLS/HR; Start 10/08/18 at 10:00 Linezolid 300 ml @ 300 mls/hr Q12 IVPB Last administered on 10/09/18 10:19; Admin Dose 300 MLS/HR; Start 10/08/18 at 12:30 Fentanyl 100 ml @ 2.5 mls/hr TITRATE IV Last administered on 10/09/18 01:14; Admin Dose 2.5 MLS/HR; Start 10/08/18 at 16:30 Lorazepam (Ativan) 1 mg Q6H PRN IV seizure; Start 10/08/18 at 16:00 Phenylephrine HCl 250 ml @ 75 mls/hr TITRATE IV Last administered on 10/08/18 21:44; Admin Dose 75 MLS/HR; Start 10/08/18 at 21:00 Albumin Human 100 ml @ 100 mls/hr Q8H IV Last administered on 10/09/18at 10:30; Admin Dose 100 MLS/HR; Start 10/09/18 at 09:00; Stop 10/11/18 at 01:59 Amiodarone HCl (Cordarone) 200 mg BID PO ; Start 10/09/18 at 21:00 Famotidine (Pepcid) 20 mg DAILY NGT ; Start 10/10/18 at 09:00 Assessment/Plan Hospital Course (Demo Recall) IMP: 1. Septic Shock: likely due to urosepsis continues to require vasopressors. 2. Respiratory Failure /2 #1 3. UMBERTO-- pre-renal vs. ATN 09/07 #1 4. NSTEMI: type II 5. Afib with RVR--now in SR 6. Hypothyroidism 7. Encephalopathy toxic metabolic possible underlying history of dementia RECS: 1. IVF' 2. Follow lactate clearance 3. CVP 4. ECHO 5. Cardiac recommendations continues heparin currently off amiodarone 6. Abx 7. Continue tube feeding 8. Currently not stable for weaning from mechanical ventilation. 9. We will attempt to decrease sedation and Precedex if hemodynamically improved tomorrow. According to cyanide case hardener patient has no next of kin May require bioethics consultation Critical care time 40 minutes PETER ARAUZ MD, [facility] Oct 09, 2018 11:26
--- NOTE | 2018-10-09 13:00 | CONS ---
Assessment/Plan Assessment/Plan Hospital Course (Demo Recall) No acute changes overnight patient remains intubated, sedated, on Levophed and heparin drips. T-max 100.9. She is still in atrial fibrillation status post amiodarone bolus and now on oral amiodarone. WBC today 15.9 H&H 9 and 25.6 platelets 235 BUN 113 creatinine 3.39 Antimicrobials: Blood and urine cultures growing E. coli Chest x-ray this morning revealed increased right basilar infiltrate concerning for pneumonia Indwelling: Endotracheal tube NG tube Piña catheter right IJ triple-lumen catheter Diagnostic: Chest x-ray this morning revealed no evidence of acute cardiopulmonary disease Allergy: Penicillin, clindamycin Antibiotics: Merrem Zyvox Physical examination: Well-developed chronically ill-appearing elderly woman. The patient is in no distress. Head atraumatic normocephalic. Neck is supple. Chest rise symmetrical, breath sounds diminished bases. Heart: S1-S2, tachycardic, irregular. Abdomen soft bowel sounds hypoactive. Extremities mottled cyanotic Assessment: 1. Severe sepsis with shock 2. E coli bacteremia secondary to urinary tract infection 3. Acute hypoxemic respiratory failure 4. Healthcare associated pneumonia, possibly aspiration 4. Acute possibly on chronic kidney disease 5. Non-ST elevation PR 6. Atrial fibrillation with RVR Plan: Patient remains hemodynamically unstable, she is on appropriate antibiotic regimen, pending sputum and repeat blood cultures, follow cardiology, renal and pulmonary recommendations Consultation Date/Type/Reason Admit Date/Time Oct 06, 2018 at 09:29 Initial Consult Date 10/06/18 Type of Consult id Requesting Provider: MANUEL ALEMAN Date/Time of Note DATE: 10/09/18 TIME: 12:58 Exam/Review of Systems Exam Vitals Vital Signs Date Temp Pulse Resp B/P (MAP) Pulse Ox O2 O2 Flow FiO2 Time Delivery Rate 10/09/18 117 28 100 30 12:41 10/09/18 163/109 Mechanical 12:30 (127) Ventilator 10/09/18 98.4 12:00 10/06/18 15.0 08:15 Intake and Output 10/08/18 10/08/18 10/09/18 1515:00 23:00 07:00 IntakeIntake Total 870.88 ml 641.38 ml 527.71 ml OutputOutput Total 560 ml 230 ml 350 ml BalanceBalance 310.88 ml 411.38 ml 177.71 ml Results Result Diagram: 10/09/18 0500 10/09/18 0500 Results 24hrs Laboratory Tests Test 10/08/18 17:40 10/09/18 02:00 10/09/18 05:00 10/09/18 09:19 Prothrombin Time 16.1 #H 15.2 H Prothrombin Time Ratio 1.3 1.2 INR International 1.28 1.19 Normalized Ratio Activated 78.2 *H 59.9 H 74.0 *H Partial Thromboplast Time Valproic Acid (Depakene) 23 L Level White Blood Count 15.9 H Red Blood Count 2.87 L Hemoglobin 9.0 L Hematocrit 25.6 L Mean Corpuscular Volume 89.2 Mean Corpuscular 31.4 Hemoglobin Mean Corpuscular 35.2 Hemoglobin Concent Red Cell Distribution 14.7 H Width Platelet Count 235 # Mean Platelet Volume 12.0 H Immature Granulocytes % 11.700 H Neutrophils % Segmented Neutrophils 45 % (Manual) Band Neutrophils % 4 (Manual) Lymphocytes % Lymphocytes % (Manual) 34 Reactive Lymphocytes 3 H % (Manual) Monocytes % Monocytes % (Manual) 11 Eosinophils % Basophils % Myelocytes % (Manual) 1 H Plasma Cells % (manual) 2 Nucleated Red Blood 1 H Cells % Immature Granulocytes # 1.870 H Neutrophils # Neutrophils # (Manual) 7.3 Band Neutrophils # 0.6 Lymphocytes (Manual) 5.4 H Lymphocytes # Reactive Lymphocytes # 0.4 H Monocytes # Monocytes # (Manual) 1.7 H Eosinophils # Basophils # Myelocytes # 0.1 H Plasma Cells # (manual) 0.3 H Nucleated Red Blood Cells # Toxic Granulation 1+ Platelet Estimate NORMAL Giant Platelets 11 H Platelet Morphology @See below Comment Poikilocytosis 1+ Anisocytosis 2+ Macrocytosis 2+ Sodium Level 137 Potassium Level 3.6 Chloride Level 111 H Carbon Dioxide Level 16 L Anion Gap 10 # Blood Urea Nitrogen 113 H Creatinine 3.39 H Est Glomerular Filtrat 14 L Rate mL/min Glucose Level 113 Calcium Level 8.4 Phosphorus Level 4.6 Magnesium Level 2.9 H Medications Medication Current Medications IV Flush (NS 3 ml) 3 ml PER PROTOCOL IV ; Start 10/06/18 at 09:30 Ondansetron HCl (Zofran Inj) 4 mg Q6H PRN IV NAUSEA/VOMITING; Start 10/06/18 at 09:30 Acetaminophen (Tylenol Tab) 650 mg Q6H PRN PO .PAIN 1-3 OR TEMP Last administered on 10/09/18at 06:25; Admin Dose 650 MG; Start 10/06/18 at 09:30 Acetaminophen/ Hydrocodone Bitart ([place] (5/325)) 1 tab Q6H PRN PO .MOD PAIN 4- 6; Start 10/06/18 at 09:30 Morphine Sulfate (morphine) 2 mg Q4H PRN IV .SEVERE PAIN 7-10; Start 10/06/18 at 09:30 Docusate Sodium (Colace) 100 mg Q12H PRN PO .CONSTIPATION; Start 10/06/18 at 0 9:30 Magnesium Hydroxide (Milk Of Mag) 30 ml DAILY PRN PO .CONSTIPATION; Start 10/06/18 at 09:30 Lorazepam (Ativan) 0.5 mg Q6H PRN IV ANXIETY Last administered on 10/08/18at 08:08; Admin Dose 0.5 MG; Start 10/06/18 at 09:30 Albuterol/ Ipratropium (Duoneb) 3 ml Q4H RESP THERAPY PRN HHN SHORTNESS OF BR EATH; Start 10/06/18 at 09:30 Nitroglycerin (Nitroglycerin (Sl Tab) 0.4 Mg) 1 tab Q5M PRN SL ANGINA; Start 10/06/18 at 09:30 Bisacodyl (Dulcolax) 10 mg DAILY PRN PO CONSTIPATION; Start 10/06/18 at 09:30 Divalproex Sodium (Depakote) 500 mg BID PO Last administered on 10/09/18at 10:21; Admin Dose 500 MG; Start 10/06/18 at 21:00 Donepezil HCl (Aricept) 5 mg QHS PO Last administered on 10/08/18at 21:50; Admin Dose 5 MG; Start 10/06/18 at 21:00 Lactulose (Enulose) 20 gm TID PRN PO CONSTIPATION; Start 10/06/18 at 09:30 Levetiracetam (Keppra) 500 mg BID PO Last administered on 10/09/18at 10:21; Admin Dose 500 MG; Start 10/06/18 at 21:00 Levothyroxine Sodium (Synthroid) 50 mcg BEFORE BREAKFAST PO Last administered on 10/09/18 10:21; Admin Dose 50 MCG; Start 10/07/18 at 07:00 Mineral Oil (Fleet Mineral Oil Enema) 133 ml DAILY PRN MD CONSTIPATION; Start 10/06/18 at 09:30 Multivitamins Therapeutic (Theragran) 1 tab DAILY PO Last administered on 10/09/18 10:21; Admin Dose 1 TAB; Start 10/07/18 at 09:00 Polyethylene Glycol (Miralax) 17 gm BID PO Last administered on 10/09/18 10:20; Admin Dose 17 GM; Start 10/06/18 at 21:00 Norepinephrine 32 mg/Dextrose 250 ml @ 0.47 mls/hr TITRATE IV Last administe red on 10/08/18 12:53; Admin Dose 4.69 MLS/HR; Start 10/06/18 at 11:30 Aspirin (Aspirin) 81 mg DAILY NGT Last administered on 10/09/18 10:21; Admin Dose 81 MG; Start 10/06/18 at 12:30 Heparin Sodium (Porcine) (Heparin (1000 Units/ml)) 4,000 unit PER PROTOCOL PRN IV aPTT<47; Start 10/06/18 at 12:30 Heparin Sodium (Porcine) 250 ml @ 8 mls/hr PER PROTOCOL IV Last administered on 10/08/18 20:07; Admin Dose 7 MLS/HR; Start 10/06/18 at 12:30 Atorvastatin Calcium (Lipitor) 40 mg DAILY@21 NGT Last administered on 10/08/18 21:50; Admin Dose 40 MG; Start 10/06/18 at 21:00 Miscellaneous Information (Flu Vaccine Previously Dispensed) FLU VACCINE PREVIOU... NOTE PRN XX NOTE; Start 10/06/18 at 18:00 Meropenem/Sodium Chloride 50 ml @ 100 mls/hr Q12 IVPB Last administered on 10/09/18 10:40; Admin Dose 100 MLS/HR; Start 10/07/18 at 12:00 Midazolam HCl 50 ml @ 0 mls/hr TITRATE IV Last administered on 10/09/18 03:38; Admin Dose 6 MLS/HR; Start 10/08/18 at 10:00 Linezolid 300 ml @ 300 mls/hr Q12 IVPB Last administered on 10/09/18at 10:19; Admin Dose 300 MLS/HR; Start 10/08/18 at 12:30 Fentanyl 100 ml @ 2.5 mls/hr TITRATE IV Last administered on 10/09/18at 01:14; Admin Dose 2.5 MLS/HR; Start 10/08/18 at 16:30 Lorazepam (Ativan) 1 mg Q6H PRN IV seizure; Start 10/08/18 at 16:00 Albumin Human 100 ml @ 100 mls/hr Q8H IV Last administered on 10/09/18at 10:30; Admin Dose 100 MLS/HR; Start 10/09/18 at 09:00; Stop 10/11/18 at 01:59 Amiodarone HCl (Cordarone) 200 mg BID PO ; Start 10/09/18 at 21:00 Famotidine (Pepcid) 20 mg DAILY NGT ; Start 10/10/18 at 09:00 Phenylephrine HCl 250 ml @ 75 mls/hr TITRATE IV ; Start 10/09/18 at 13:00 MARKOS BRADY NP Oct 09, 2018 13:00
--- NOTE | 2018-10-09 13:16 | QN ---
Documentation Comment Await Head CT.. VPA level subTx.. Load 15mg/kg now, continue maintenance, then repeat level in am.. FROYLAN WOOD Oct 09, 2018 13:16
[2018-10-09] MEDS ORDERED: VALPROATE INJ 1,000 MG in SOD CHLORIDE 0.9% 100 ML IVPB ONE (13:30)
--- NOTE | 2018-10-09 15:51 | PN ---
Date/Time of Note Date/Time of Note DATE: 10/09/18 TIME: 15:50 Assessment/Plan VTE Prophylaxis Risk score (from Ns)>0 risk: 9 SCD applied (from [facility] [place]): Yes Pharmacological prophylaxis: heparin Lines/Catheters IV Catheter Type (from [facility]): Central Line Central line still needed: Yes Urinary Cath still in place: Yes Reason Cath still needed: other (indicate) (intubated) Assessment/Plan Assessment/Plan A 67-year-old female coming in with signs of septic shock, likely secondary to urinary tract infection and pneumonia, elevated troponins, acute renal insufficiency, now intubated on pressor support. Also, with atrial fibrillation with rapid ventricular response, now in normal sinus rhythm. # Fever #Septic shock - Dr. Sanford following. - Likely due to URI and/or UTI. - Blood cultures growing GNRs x2. - The patient on her last admission had positive enterococcus UTI so, based on sensitivities for that, we will continue current antibiotic sensitivities to that until we follow ID recommendations. - Continue IV fluids and pressor support. Try to wean off as tolerated. - Tylenol p.r.n. pain and fevers. #Seizure - Not waking up >24 hours off sedation. - Morning of 10/08 had whole body twitching concerning for seizures; got Ativan t hen Versed. - EEG, will consult Dr Flower - Pending CT head # NSTEMI - Unclear if this is true non-ST elevation myocardial infarction versus demand ischemia. - Again, she will be placed on heparin drip for now given the significant elevation in her troponins, - Continue high dose aspirin. - Trend her troponins q.6 hours x2 more. - She is also on Lipitor. - Dr. Mello consulted. #A fib with RVR, paroxysmal - Dr. Mello following - Converted to normal sinus after getting Cardizem in ED -Now back in A fib, on amiodarone gtt. # Renal insufficiency. - Creatinine is significantly worsened since her last admission 4.6. - Dr. Davila consulted - Not anuric # Hypothyroidism - Continue current thyroid medicines. - Low TSH, normal fT4 consistent with sick euthyroid syndrome. # History of dementia. Continue Aricept for now. #Seizure disorder - She is on Keppra. # History of high cholesterol. - Cont statin # Gastrointestinal prophylaxis. Add H2 panda. # Deep venous thrombosis prophylaxis. She is on heparin drip. Result Diagram: 10/09/18 0500 10/09/18 0500 Subjective 24 Hr Interval Summary Free Text/Dictation No acute overnight events. Got EEG yesterday; to CT today. Still on Versed. Exam/Review of Systems Exam Vitals Vital Signs Date Temp Pulse Resp B/P (MAP) Pulse Ox O2 O2 Flow FiO2 Time Delivery Rate 10/09/18 117 28 100 30 14:55 10/09/18 163/109 Mechanical 12:30 (127) Ventilator 10/09/18 98.4 12:00 10/06/18 15.0 08:15 Intake and Output 10/08/18 10/08/18 10/09/18 1515:00 23:00 07:00 IntakeIntake Total 870.88 ml 641.38 ml 527.71 ml OutputOutput Total 560 ml 230 ml 350 ml BalanceBalance 310.88 ml 411.38 ml 177.71 ml Exam GENERAL: Well developed woman lying in bed, intubated, sedated HEENT: Pupils dilated bilaterally, unresponsive to light. Moist mucous membranes, ET tube in place. NECK: Supple, no thyromegaly. LUNGS: Mechanical breath sounds equal bilaterally. CARDIOVASCULAR: S1, S2 heard. No rubs or gallops. ABDOMEN: Soft, nontender, nondistended. Normal bowel sounds. No rebound or guarding. MUSCULOSKELETAL: No lower extremity edema bilaterally. Results Results 24hrs Laboratory Tests Test 10/08/18 17:40 10/09/18 02:00 10/09/18 05:00 10/09/18 09:19 Prothrombin Time 16.1 #H 15.2 H Prothrombin Time Ratio 1.3 1.2 INR International 1.28 1.19 Normalized Ratio Activated 78.2 *H 59.9 H 74.0 *H Partial Thromboplast Time Valproic Acid (Depakene) 23 L Level White Blood Count 15.9 H Red Blood Count 2.87 L Hemoglobin 9.0 L Hematocrit 25.6 L Mean Corpuscular Volume 89.2 Mean Corpuscular 31.4 Hemoglobin Mean Corpuscular 35.2 Hemoglobin Concent Red Cell Distribution 14.7 H Width Platelet Count 235 # Mean Platelet Volume 12.0 H Immature Granulocytes % 11.700 H Neutrophils % Segmented Neutrophils 45 % (Manual) Band Neutrophils % 4 (Manual) Lymphocytes % Lymphocytes % (Manual) 34 Reactive Lymphocytes 3 H % (Manual) Monocytes % Monocytes % (Manual) 11 Eosinophils % Basophils % Myelocytes % (Manual) 1 H Plasma Cells % (manual) 2 Nucleated Red Blood 1 H Cells % Immature Granulocytes # 1.870 H Neutrophils # Neutrophils # (Manual) 7.3 Band Neutrophils # 0.6 Lymphocytes (Manual) 5.4 H Lymphocytes # Reactive Lymphocytes # 0.4 H Monocytes # Monocytes # (Manual) 1.7 H Eosinophils # Basophils # Myelocytes # 0.1 H Plasma Cells # (manual) 0.3 H Nucleated Red Blood Cells # Toxic Granulation 1+ Platelet Estimate NORMAL Giant Platelets 11 H Platelet Morphology @See below Comment Poikilocytosis 1+ Anisocytosis 2+ Macrocytosis 2+ Sodium Level 137 Potassium Level 3.6 Chloride Level 111 H Carbon Dioxide Level 16 L Anion Gap 10 # Blood Urea Nitrogen 113 H Creatinine 3.39 H Est Glomerular Filtrat 14 L Rate mL/min Glucose Level 113 Calcium Level 8.4 Phosphorus Level 4.6 Magnesium Level 2.9 H Medications Medication Current Medications IV Flush (NS 3 ml) 3 ml PER PROTOCOL IV ; Start 10/06/18 at 09:30 Ondansetron HCl (Zofran Inj) 4 mg Q6H PRN IV NAUSEA/VOMITING; Start 10/06/18 at 09:30 Acetaminophen (Tylenol Tab) 650 mg Q6H PRN PO .PAIN 1-3 OR TEMP Last administered on 10/09/18at 06:25; Admin Dose 650 MG; Start 10/06/18 at 09:30 Acetaminophen/ Hydrocodone Bitart ([place] (5/325)) 1 tab Q6H PRN PO .MOD PAIN 4-6; Start 10/06/18 at 09:30 Morphine Sulfate (morphine) 2 mg Q4H PRN IV .SEVERE PAIN 7-10; Start 10/06/18 at 09:30 Docusate Sodium (Colace) 100 mg Q12H PRN PO .CONSTIPATION; Start 10/06/18 at 09:30 Magnesium Hydroxide (Milk Of Mag) 30 ml DAILY PRN PO .CONSTIPATION; Start 10/06/18 at 09:30 Lorazepam (Ativan) 0.5 mg Q6H PRN IV ANXIETY Last administered on 10/08/18at 08:08; Admin Dose 0.5 MG; Start 10/06/18 at 09:30 Albuterol/ Ipratropium (Duoneb) 3 ml Q4H RESP THERAPY PRN HHN SHORTNESS OF BREATH; Start 10/06/18 at 09:30 Nitroglycerin (Nitroglycerin (Sl Tab) 0.4 Mg) 1 tab Q5M PRN SL ANGINA; Start 10/06/18 at 09:30 Bisacodyl (Dulcolax) 10 mg DAILY PRN PO CONSTIPATION; Start 10/06/18 at 09:30 Divalproex Sodium (Depakote) 500 mg BID PO Last administered on 10/09/18 10:21; Admin Dose 500 MG; Start 10/06/18 at 21:00 Donepezil HCl (Aricept) 5 mg QHS PO Last administered on 10/08/18 21:50; Admin Dose 5 MG; Start 10/06/18 at 21:00 Lactulose (Enulose) 20 gm TID PRN PO CONSTIPATION; Start 10/06/18 at 09:30 Levetiracetam (Keppra) 500 mg BID PO Last administered on 10/09/18 10:21; Admin Dose 500 MG; Start 10/06/18 at 21:00 Levothyroxine Sodium (Synthroid) 50 mcg BEFORE BREAKFAST PO Last administered on 10/09/18 10:21; Admin Dose 50 MCG; Start 10/07/18 at 07:00 Mineral Oil (Fleet Mineral Oil Enema) 133 ml DAILY PRN [place] CONSTIPATION; Start 10/06/18 at 09:30 Multivitamins Therapeutic (Theragran) 1 tab DAILY PO Last administered on 10/09/18 10:21; Admin Dose 1 TAB; Start 10/07/18 at 09:00 Polyethylene Glycol (Miralax) 17 gm BID PO Last administered on 10/09/18 10:20; Admin Dose 17 GM; Start 10/06/18 at 21:00 Norepinephrine 32 mg/Dextrose 250 ml @ 0.47 mls/hr TITRATE IV Last administered on 10/08/18 12:53; Admin Dose 4.69 MLS/HR; Start 10/06/18 at 11:30 Aspirin (Aspirin) 81 mg DAILY NGT Last administered on 10/09/18 10:21; Admin Dose 81 MG; Start 10/06/18 at 12:30 Heparin Sodium (Porcine) (Heparin (1000 Units/ml)) 4,000 unit PER PROTOCOL PRN IV aPTT<47; Start 10/06/18 at 12:30 Heparin Sodium (Porcine) 250 ml @ 8 mls/hr PER PROTOCOL IV Last administered on 10/08/18at 20:07; Admin Dose 7 MLS/HR; Start 10/06/18 at 12:30 Atorvastatin Calcium (Lipitor) 40 mg DAILY@21 NGT Last administered on 10/08/18at 21:50; Admin Dose 40 MG; Start 10/06/18 at 21:00 Miscellaneous Information (Flu Vaccine Previously Dispensed) FLU VACCINE PREVIOU... NOTE PRN XX NOTE; Start 10/06/18 at 18:00 Meropenem/Sodium Chloride 50 ml @ 100 mls/hr Q12 IVPB Last administered on 10/09/18at 10:40; Admin Dose 100 MLS/HR; Start 10/07/18 at 12:00 Midazolam HCl 50 ml @ 0 mls/hr TITRATE IV Last administered on 10/09/18at 03:38; Admin Dose 6 MLS/HR; Start 10/08/18 at 10:00 Linezolid 300 ml @ 300 mls/hr Q12 IVPB Last administered on 10/09/18 10:19; Admin Dose 300 MLS/HR; Start 10/08/18 at 12:30 Fentanyl 100 ml @ 2.5 mls/hr TITRATE IV Last administered on 10/09/18at 01:14; Admin Dose 2.5 MLS/HR; Start 10/08/18 at 16:30 Lorazepam (Ativan) 1 mg Q6H PRN IV seizure; Start 10/08/18 at 16:00 Albumin Human 100 ml @ 100 mls/hr Q8H IV Last administered on 10/09/18at 10:30; Admin Dose 100 MLS/HR; Start 10/09/18 at 09:00; Stop 10/11/18 at 01:59 Amiodarone HCl (Cordarone) 200 mg BID PO ; Start 10/09/18 at 21:00 Famotidine (Pepcid) 20 mg DAILY NGT ; Start 10/10/18 at 09:00 Phenylephrine HCl 250 ml @ 75 mls/hr TITRATE IV ; Start 10/09/18 at 13:00 ANGELA MOSQUERA MD Oct 09, 2018 15:51
[2018-10-09] MEDS: DONEPEZIL 5 MG TAB PO SCH (20:53)
[2018-10-09] MEDS: ATORVASTATIN 40 MG TAB NGT SCH (20:53)
[2018-10-09] MEDS: AMIODARONE 200 MG TAB PO SCH (20:54)
[2018-10-09] MEDS: PHENYLephrine 20MG IN 250 ML 250 ML IV SCH (21:27)
[2018-10-10] VITALS (99 sets, daily range): BP systolic 81–143; BP diastolic 46–122; PULSE 100–158; RESP 22–37
[2018-10-10] MEDS: FENTAnyl (DRIP) 1000 mcg/100mL 100 ML IV SCH (01:01)
[2018-10-10] MEDS: ALBUMIN HUMAN 25% 100 ML IV SCH ×3 (01:17→18:24)
[2018-10-10] MEDS ORDERED: SOD CHLORIDE 0.9% 500 ML IV ONE (01:30)
[2018-10-10] MEDS ORDERED: METOPROLOL 5 MG INJ IV ONE (01:30)
[2018-10-10] MEDS: PHENYLephrine 20MG IN 250 ML 250 ML IV SCH ×2 (02:44→09:00)
[2018-10-10] MEDS: HEPARIN 25000 UNITS/250 ML 250 ML IV SCH (07:05)
--- NOTE | 2018-10-10 08:48 | RADRPT ---
Vent Rate: 109 bpm RR Interval: 0 msec NC Interval: 146 msec QRS Duration: 88 msec QT Interval: 310 msec QTC Interval: 417 msec P-R-T [place]: 78 - 69 - 62 degrees Sinus tachycardia Otherwise normal ECG Electronically Signed By: Kamari Penny
[2018-10-10] MEDS: LEVOTHYROXINE 50 MCG TAB PO SCH (09:32)
[2018-10-10] MEDS: POLYETHYLENE GLYCOL 17 GM PACKET PO SCH ×2 (09:32→21:31)
[2018-10-10] MEDS: LINEZOLID 600 MG/D5W (PMX) 300 ML IVPB SCH ×2 (09:32→21:30)
[2018-10-10] MEDS: AMIODARONE 200 MG TAB PO SCH ×2 (09:32→21:32)
[2018-10-10] MEDS: LEVETIRACETAM 500 MG TAB PO SCH ×2 (09:32→21:31)
[2018-10-10] MEDS: FAMOTIDINE 20 MG TAB NGT SCH (09:33)
[2018-10-10] MEDS: ASPIRIN 81 MG TAB NGT SCH (09:33)
[2018-10-10] MEDS: BALSAM PERU/CASTOR OIL 60 GM TUBE TOP SCH (09:33)
[2018-10-10] MEDS: DIVALPROEX (EC) 500 MG TAB PO SCH (09:33)
[2018-10-10] MEDS: MULTIVITAMINS THERAPEUTIC TAB PO SCH (09:33)
[2018-10-10] MEDS: MEROPENEM 500MG/50 ML (PMX) 50 ML IVPB SCH ×2 (09:37→21:30)
--- NOTE | 2018-10-10 09:53 | CONS ---
Consult Date/Type/Reason Admit Date/Time Oct 06, 2018 at 09:29 Initial Consult Date 10/06/18 Type of Consult Pulmonary Requesting Provider: MANUEL ALEMAN Date/Time of Note DATE: 10/10/18 TIME: 09:52 Subjective Patient remains somnolent on mechanical ventilation. Not opening eyes or following commands. Grimaces to painful stimuli still requiring vasopressor support. Tolerating tube feeding Objective Vital Signs Date Temp Pulse Resp B/P (MAP) Pulse Ox O2 O2 Flow FiO2 Time Delivery Rate 10/10/18 102 28 92/57 (69) 100 Mechanical 08:45 Ventilator 10/10/18 98.0 08:00 10/10/18 30 08:00 10/06/18 15.0 08:15 Intake and Output 10/09/18 10/09/18 10/10/18 1515:00 23:00 07:00 IntakeIntake Total 934.8 ml 1091.61 ml 1218.00 ml OutputOutput Total 265 ml 995 ml 700 ml BalanceBalance 669.8 ml 96.61 ml 518.00 ml Exam Elderly lady orally intubated on mechanical ventilation VITAL SIGNS: per chart NECK: Supple. No JVD or lymphadenopathy. CARDIAC EXAM: S1, S2. No added sounds or murmurs. CHEST: Diminished air entry bilaterally ABDOMEN: Soft, nontender. No guarding or rebound. EXTREMITIES: No cyanosis, clubbing or edema. NEUROLOGIC: Generalized weakness. No focal deficits. Vent Setting Ventilator Support Mode: AC Fraction of Inspired Oxygen pe: 30 Positive End Expiratory Pressu: 5.0 Results/Medications Result Diagram: 10/10/18 0550 10/10/18 0550 Results 24 hrs Laboratory Tests Test 10/09/18 17:22 10/10/18 00:24 10/10/18 05:50 10/10/18 07:00 Prothrombin Time 14.6 14.4 15.1 H Prothrombin Time 1.1 1.1 1.2 Ratio INR International 1.13 1.11 1.18 Normalized Ratio Activated 123.0 *H 47.2 H 60.[address] Time White Blood Count 11.3 #H Red Blood Count 2.65 L Hemoglobin 8.3 L Hematocrit 24.1 L Mean Corpuscular 90.9 Volume Mean Corpuscular 31.3 Hemoglobin Mean Corpuscular 34.4 Hemoglobin Concent Red Cell 15.3 H Distribution Width Platelet Count 228 Mean Platelet 11.7 H Volume Immature 10.200 H Granulocytes % Neutrophils % Segmented 57 Neutrophils % (Manual) Band Neutrophils % 11 H (Manual) Lymphocytes % Lymphocytes % 19 (Manual) Reactive 3 H Lymphocytes % (Manual) Monocytes % Monocytes % 7 (Manual) Eosinophils % Eosinophils % 1 (Manual) Basophils % Metamyelocytes % 1 H (manual) Myelocytes % 1 H (Manual) Nucleated Red 0.0 Blood Cells % Immature 1.150 H Granulocytes # Neutrophils # Neutrophils # 6.6 (Manual) Band Neutrophils # 1.2 H Lymphocytes 2.1 (Manual) Lymphocytes # Reactive 0.3 H Lymphocytes # Monocytes # Monocytes # 0.7 (Manual) Eosinophils # Basophils # Metamyelocytes # 0.1 H Myelocytes # 0.1 H Nucleated Red Blood Cells # Platelet Estimate NORMAL Polychromasia 1+ Hypochromasia 1+ Poikilocytosis 2+ Anisocytosis 3+ Macrocytosis 3+ Sodium Level 138 Potassium Level 3.5 Chloride Level 111 H Carbon Dioxide 17 L Level Anion Gap 10 Blood Urea 87 H Nitrogen Creatinine 2.50 H Est Glomerular 19 L Filtrat Rate mL/min Glucose Level 114 Calcium Level 8.9 Valproic Acid 34 L (Depakene) Level Blood Gas Specimen Blood arterial Source Arterial Blood 10/10/2018 7:18:41 Date Drawn AM Arterial Blood pH 7.450 (Temp corrected) Arterial Blood 23.0 L pCO2 (Temp correct) Arterial Blood pO2 114.4 H (Temp corrected) Arterial Blood 15.6 L HCO3 Arterial Blood -7.1 L Base Excess Arterial Blood 98.4 H Oxygen Saturation Greg Test ACCEPTAB Arterial Blood Gas Right Radial Puncture Site Arterial 0.3 Blood Carboxyhemog lobin Arterial Blood 0.2 Methemoglobin Blood Gas A-a O2 72.5 H Differential Oxyhemoglobin 97.9 Percent Blood Gas 37.0 Temperature Blood Gas 28.0 Respiration Rate Blood Gas Actual 28 Respiration Rate Blood Gas Modality VENT - AC FiO2 30.0 Blood Gas Tidal 450.0 Volume Blood Gas Low PEEP 5.0 Setting Blood Gas Notified TM Whom Blood Gas Notified 10/10/2018 7:35:44 Time AM Test 10/10/18 08:20 Troponin I 0.166 *H Medications Current Medications IV Flush (NS 3 ml) 3 ml PER PROTOCOL IV ; Start 10/06/18 at 09:30 Ondansetron HCl (Zofran Inj) 4 mg Q6H PRN IV NAUSEA/VOMITING; Start 10/06/18 at 09:30 Acetaminophen (Tylenol Tab) 650 mg Q6H PRN PO .PAIN 1-3 OR TEMP Last administered on 10/09/18at 06:25; Admin Dose 650 MG; Start 10/06/18 at 09:30 Acetaminophen/ Hydrocodone Bitart ([place] (5/325)) 1 tab Q6H PRN PO .MOD PAIN 4- 6; Start 10/06/18 at 09:30 Morphine Sulfate (morphine) 2 mg Q4H PRN IV .SEVERE PAIN 7-10; Start 10/06/18 at 09:30 Docusate Sodium (Colace) 100 mg Q12H PRN PO .CONSTIPATION; Start 10/06/18 at 09:30 Magnesium Hydroxide (Milk Of Mag) 30 ml DAILY PRN PO .CONSTIPATION; Start 10/06/18 at 09:30 Lorazepam (Ativan) 0.5 mg Q6H PRN IV ANXIETY Last administered on 10/08/18at 08:08; Admin Dose 0.5 MG; Start 10/06/18 at 09:30 Albuterol/ Ipratropium (Duoneb) 3 ml Q4H RESP THERAPY PRN HHN SHORTNESS OF BREATH; Start 10/06/18 at 09:30 Nitroglycerin (Nitroglycerin (Sl Tab) 0.4 Mg) 1 tab Q5M PRN SL ANGINA; Start 10/06/18 at 09:30 Bisacodyl (Dulcolax) 10 mg DAILY PRN PO CONSTIPATION; Start 10/06/18 at 09:30 Divalproex Sodium (Depakote) 500 mg BID PO Last administered on 10/10/18at 09:33; Admin Dose 500 MG; Start 10/06/18 at 21:00 Donepezil HCl (Aricept) 5 mg QHS PO Last administered on 10/09/18at 20:53; Admin Dose 5 MG; Start 10/06/18 at 21:00 Lactulose (Enulose) 20 gm TID PRN PO CONSTIPATION; Start 10/06/18 at 09:30 Levetiracetam (Keppra) 500 mg BID PO Last administered on 10/10/18 09:32; Admin Dose 500 MG; Start 10/06/18 at 21:00 Levothyroxine Sodium (Synthroid) 50 mcg BEFORE BREAKFAST PO Last administered on 10/10/18 09:32; Admin Dose 50 MCG; Start 10/07/18 at 07:00 Mineral Oil (Fleet Mineral Oil Enema) 133 ml DAILY PRN [place] CONSTIPATION; Start 10/06/18 at 09:30 Multivitamins Therapeutic (Theragran) 1 tab DAILY PO Last administered on 10/10/18 09:33; Admin Dose 1 TAB; Start 10/07/18 at 09:00 Polyethylene Glycol (Miralax) 17 gm BID PO Last administered on 10/10/18 09:32; Admin Dose 17 GM; Start 10/06/18 at 21:00 Norepinephrine 32 mg/Dextrose 250 ml @ 0.47 mls/hr TITRATE IV Last administered on 10/08/18 12:53; Admin Dose 4.69 MLS/HR; Start 10/06/18 at 11:30 Aspirin (Aspirin) 81 mg DAILY NGT Last administered on 10/10/18 09:33; Admin Dose 81 MG; Start 10/06/18 at 12:30 Heparin Sodium (Porcine) (Heparin (1000 Units/ml)) 4,000 unit PER PROTOCOL PRN IV aPTT<47; Start 10/06/18 at 12:30 Heparin Sodium (Porcine) 250 ml @ 8 mls/hr PER PROTOCOL IV Last administered on 10/10/18 07:05; Admin Dose 6 MLS/HR; Start 10/06/18 at 12:30 Atorvastatin Calcium (Lipitor) 40 mg DAILY@21 NGT Last administered on 10/09/18 20:53; Admin Dose 40 MG; Start 10/06/18 at 21:00 Miscellaneous Information (Flu Vaccine Previously Dispensed) FLU VACCINE PREVIOU... NOTE PRN XX NOTE; Start 10/06/18 at 18:00 Meropenem/Sodium Chloride 50 ml @ 100 mls/hr Q12 IVPB Last administered on 10/10/18 09:37; Admin Dose 100 MLS/HR; Start 10/07/18 at 12:00 Midazolam HCl 50 ml @ 0 mls/hr TITRATE IV Last administered on 10/09/18 22:21; Admin Dose 3 MLS/HR; Start 10/08/18 at 10:00 Linezolid 300 ml @ 300 mls/hr Q12 IVPB Last administered on 10/10/18 09:32; Admin Dose 300 MLS/HR; Start 10/08/18 at 12:30 Fentanyl 100 ml @ 2.5 mls/hr TITRATE IV Last administered on 10/10/18 01:01; Admin Dose 2.5 MLS/HR; Start 10/08/18 at 16:30 Lorazepam (Ativan) 1 mg Q6H PRN IV seizure; Start 10/08/18 at 16:00 Albumin Human 100 ml @ 100 mls/hr Q8H IV Last administered on 10/10/18 09:36; Admin Dose 100 MLS/HR; Start 10/09/18 at 09:00; Stop 10/11/18 at 01:59 Amiodarone HCl (Cordarone) 200 mg BID PO Last administered on 10/10/18 09:32; Admin Dose 200 MG; Start 10/09/18 at 21:00 Famotidine (Pepcid) 20 mg DAILY NGT Last administered on 10/10/18 09:33; Admin Dose 20 MG; Start 10/10/18 at 09:00 Phenylephrine HCl 250 ml @ 75 mls/hr TITRATE IV Last administered on 10/10/18 02:44; Admin Dose 37.5 MLS/HR; Start 10/09/18 at 13:00 Assessment/Plan Hospital Course (Demo Recall) IMP: 1. Septic Shock: likely due to urosepsis continues to require vasopressors. 2. Respiratory Failure 2/2 #1 3. UMBERTO-- pre-renal vs. ATN 2/2 #1 4. NSTEMI: type II 5. Afib with RVR--now in SR 6. Hypothyroidism 7. Encephalopathy toxic metabolic possible underlying history of dementia RECS: 1. IVF' 2. Continue tube feeding as tolerated 3. Continue antibiotics 4. Renal recommendations regarding renal insufficiency metabolic acidosis 5. Neuro recommendations regarding encephalopathy patient currently not able to liberate from mechanical ventilation Continue current supportive care critical care time 40 minutes prognosis is guarded PETER ARAUZ MD, [facility] Oct 10, 2018 09:53
--- NOTE | 2018-10-10 11:17 | CONS ---
Assessment/Plan Assessment/Plan Hospital Course (Demo Recall) IMP: 1. Nstemi- in setting of renal failure and shock. Slowly decreasing 2.Shock-on levo 3.Tachycardia-S tach at this time 4.UTI 5.PAF with RVR-now recurrent AF with RVR 6.Renal failure 7.Dyslipidemia 8.Sz d/o 9. Hypothyroid Recc: -ICU -wean pressors as tolerated. Now on clay -Follow rhythm and rate closely -Continue asa/heparin and trend cardiac enzymes -Continue abx's and f/u cx data -Continue statin -Contineu po amiodarone s/p dose IVP digoxin Consultation Date/Type/Reason Admit Date/Time Oct 06, 2018 at 09:29 Initial Consult Date 10/06/18 Type of Consult Cardiology Reason for Consultation hypotension/AF Requesting Provider: MANUEL ALEMAN Date/Time of Note DATE: 10/10/18 TIME: 11:14 Exam/Review of Systems Vital Signs Vitals Vital Signs Date Temp Pulse Resp B/P (MAP) Pulse Ox O2 O2 Flow FiO2 Time Delivery Rate 10/10/18 102 28 92/57 (69) 100 Mechanical 08:45 Ventilator 10/10/18 98.0 08:00 10/10/18 30 08:00 10/06/18 15.0 08:15 Intake and Output 10/09/18 10/09/18 10/10/18 1414:59 22:59 06:59 IntakeIntake Total 937.83 ml 967.71 ml 1360.00 ml OutputOutput Total 245 ml 840 ml 750 ml BalanceBalance 692.83 ml 127.71 ml 610.00 ml Exam Exam Review of Systems: CONSTITUTIONAL: No fevers, chills. PULMONARY: No sob CARDIOVASCULAR: No chest pain/palpitations GASTROINTESTINAL: No nausea/vomiting. GENITOURINARY: No hematuria/dysuria. MUSCULOSKELETAL: No myagias/arthalgias. PSYCHIATRIC: The patient denies depression. NEUROLOGIC: encephalopathic Constitutional: other (encephalopathic) Psych: no complaints Head: normocephalic ENMT: mucosa pink and moist Neck: supple, jvd (9 cm water) Respiratory: diminished breath sounds (at bases/B) Cardiovascular: regular rate and rhythm Gastrointestinal: soft, non-tender Musculoskeletal: muscle tone (normal) Extremities: edema (none) Neurological: other (No focal deficits) Labs Result Diagram: 10/10/18 0550 10/10/18 0550 Results 24hrs Laboratory Tests Test 10/09/18 17:22 10/10/18 00:24 10/10/18 05:50 10/10/18 07:00 Prothrombin Time 14.6 14.4 15.1 H Prothrombin Time 1.1 1.1 1.2 Ratio INR International 1.13 1.11 1.18 Normalized Ratio Activated 123.0 *H 47.2 H 60[address] Time White Blood Count 11.3 #H Red Blood Count 2.65 L Hemoglobin 8.3 L Hematocrit 24.1 L Mean Corpuscular 90.9 Volume Mean Corpuscular 31.3 Hemoglobin Mean Corpuscular 34.4 Hemoglobin Concent Red Cell 15.3 H Distribution Width Platelet Count 228 Mean Platelet 11.7 H Volume Immature 10.200 H Granulocytes % Neutrophils % Segmented 57 Neutrophils % (Manual) Band Neutrophils % 11 H (Manual) Lymphocytes % Lymphocytes % 19 (Manual) Reactive 3 H Lymphocytes % (Manual) Monocytes % Monocytes % 7 (Manual) Eosinophils % Eosinophils % 1 (Manual) Basophils % Metamyelocytes % 1 H (manual) Myelocytes % 1 H (Manual) Nucleated Red 0.0 Blood Cells % Immature 1.150 H Granulocytes # Neutrophils # Neutrophils # 6.6 (Manual) Band Neutrophils # 1.2 H Lymphocytes 2.1 (Manual) Lymphocytes # Reactive 0.3 H Lymphocytes # Monocytes # Monocytes # 0.7 (Manual) Eosinophils # Basophils # Metamyelocytes # 0.1 H Myelocytes # 0.1 H Nucleated Red Blood Cells # Platelet Estimate NORMAL Polychromasia 1+ Hypochromasia 1+ Poikilocytosis 2+ Anisocytosis 3+ Macrocytosis 3+ Sodium Level 138 Potassium Level 3.5 Chloride Level 111 H Carbon Dioxide 17 L Level Anion Gap 10 Blood Urea 87 H Nitrogen Creatinine 2.50 H Est Glomerular 19 L Filtrat Rate mL/min Glucose Level 114 Calcium Level 8.9 Valproic Acid 34 L (Depakene) Level Blood Gas Specimen Blood arterial Source Arterial Blood 10/10/2018 7:18:41 Date Drawn AM Arterial Blood pH 7.450 (Temp corrected) Arterial Blood 23.0 L pCO2 (Temp correct) Arterial Blood pO2 114.4 H (Temp corrected) Arterial Blood 15.6 L HCO3 Arterial Blood -7.1 L Base Excess Arterial Blood 98.4 H Oxygen Saturation Greg Test ACCEPTAB Arterial Blood Gas Right Radial Puncture Site Arterial 0.3 Blood Carboxyhemog lobin Arterial Blood 0.2 Methemoglobin Blood Gas A-a O2 72.5 H Differential Oxyhemoglobin 97.9 Percent Blood Gas 37.0 Temperature Blood Gas 28.0 Respiration Rate Blood Gas Actual 28 Respiration Rate Blood Gas Modality VENT - AC FiO2 30.0 Blood Gas Tidal 450.0 Volume Blood Gas Low PEEP 5.0 Setting Blood Gas Notified TM Whom Blood Gas Notified 10/10/2018 7:35:44 Time AM Test 10/10/18 08:20 Troponin I 0.166 *H Medications Medications Current Medications IV Flush (NS 3 ml) 3 ml PER PROTOCOL IV ; Start 10/06/18 at 09:30 Ondansetron HCl (Zofran Inj) 4 mg Q6H PRN IV NAUSEA/VOMITING; Start 10/06/18 at 09:30 Acetaminophen (Tylenol Tab) 650 mg Q6H PRN PO .PAIN 1-3 OR TEMP Last administered on 10/09/18at 06:25; Admin Dose 650 MG; Start 10/06/18 at 09:30 Acetaminophen/ Hydrocodone Bitart ([place] (5/325)) 1 tab Q6H PRN PO .MOD PAIN 4- 6; Start 10/06/18 at 09:30 Morphine Sulfate (morphine) 2 mg Q4H PRN IV .SEVERE PAIN 7-10; Start 10/06/18 at 09:30 Docusate Sodium (Colace) 100 mg Q12H PRN PO .CONSTIPATION; Start 10/06/18 at 09:30 Magnesium Hydroxide (Milk Of Mag) 30 ml DAILY PRN PO .CONSTIPATION; Start 10/06/18 at 09:30 Lorazepam (Ativan) 0.5 mg Q6H PRN IV ANXIETY Last administered on 10/08/18at 08:08; Admin Dose 0.5 MG; Start 10/06/18 at 09:30 Albuterol/ Ipratropium (Duoneb) 3 ml Q4H RESP THERAPY PRN HHN SHORTNESS OF BREATH; Start 10/06/18 at 09:30 Nitroglycerin (Nitroglycerin (Sl Tab) 0.4 Mg) 1 tab Q5M PRN SL ANGINA; Start 10/06/18 at 09:30 Bisacodyl (Dulcolax) 10 mg DAILY PRN PO CONSTIPATION; Start 10/06/18 at 09:30 Divalproex Sodium (Depakote) 500 mg BID PO Last administered on 10/10/18 09:33; Admin Dose 500 MG; Start 10/06/18 at 21:00 Donepezil HCl (Aricept) 5 mg QHS PO Last administered on 10/09/18 20:53; Admin Dose 5 MG; Start 10/06/18 at 21:00 Lactulose (Enulose) 20 gm TID PRN PO CONSTIPATION; Start 10/06/18 at 09:30 Levetiracetam (Keppra) 500 mg BID PO Last administered on 10/10/18 09:32; Admin Dose 500 MG; Start 10/06/18 at 21:00 Levothyroxine Sodium (Synthroid) 50 mcg BEFORE BREAKFAST PO Last administered on 10/10/18 09:32; Admin Dose 50 MCG; Start 10/07/18 at 07:00 Mineral Oil (Fleet Mineral Oil Enema) 133 ml DAILY PRN [place] CONSTIPATION; Start 10/06/18 at 09:30 Multivitamins Therapeutic (Theragran) 1 tab DAILY PO Last administered on 10/10/18 09:33; Admin Dose 1 TAB; Start 10/07/18 at 09:00 Polyethylene Glycol (Miralax) 17 gm BID PO Last administered on 10/10/18 09:32; Admin Dose 17 GM; Start 10/06/18 at 21:00 Norepinephrine 32 mg/Dextrose 250 ml @ 0.47 mls/hr TITRATE IV Last administered on 10/08/18 12:53; Admin Dose 4.69 MLS/HR; Start 10/06/18 at 11:30 Aspirin (Aspirin) 81 mg DAILY NGT Last administered on 10/10/18 09:33; Admin Dose 81 MG; Start 10/06/18 at 12:30 Heparin Sodium (Porcine) (Heparin (1000 Units/ml)) 4,000 unit PER PROTOCOL PRN IV aPTT<47; Start 10/06/18 at 12:30 Heparin Sodium (Porcine) 250 ml @ 8 mls/hr PER PROTOCOL IV Last administered on 10/10/18 07:05; Admin Dose 6 MLS/HR; Start 10/06/18 at 12:30 Atorvastatin Calcium (Lipitor) 40 mg DAILY@21 NGT Last administered on 10/09/18 20:53; Admin Dose 40 MG; Start 10/06/18 at 21:00 Miscellaneous Information (Flu Vaccine Previously Dispensed) FLU VACCINE PREVIOU... NOTE PRN XX NOTE; Start 10/06/18 at 18:00 Meropenem/Sodium Chloride 50 ml @ 100 mls/hr Q12 IVPB Last administered on 10/10/18 09:37; Admin Dose 100 MLS/HR; Start 10/07/18 at 12:00 Midazolam HCl 50 ml @ 0 mls/hr TITRATE IV Last administered on 10/09/18 22:21; Admin Dose 3 MLS/HR; Start 10/08/18 at 10:00 Linezolid 300 ml @ 300 mls/hr Q12 IVPB Last administered on 10/10/18 09:32; Admin Dose 300 MLS/HR; Start 10/08/18 at 12:30 Fentanyl 100 ml @ 2.5 mls/hr TITRATE IV Last administered on 10/10/18 01:01; Admin Dose 2.5 MLS/HR; Start 10/08/18 at 16:30 Lorazepam (Ativan) 1 mg Q6H PRN IV seizure; Start 10/08/18 at 16:00 Albumin Human 100 ml @ 100 mls/hr Q8H IV Last administered on 10/10/18 09:36; Admin Dose 100 MLS/HR; Start 10/09/18 at 09:00; Stop 10/11/18 at 01:59 Amiodarone HCl (Cordarone) 200 mg BID PO Last administered on 10/10/18 09:32; Admin Dose 200 MG; Start 10/09/18 at 21:00 Famotidine (Pepcid) 20 mg DAILY NGT Last administered on 10/10/18 09:33; Admin Dose 20 MG; Start 10/10/18 at 09:00 Phenylephrine HCl 250 ml @ 75 mls/hr TITRATE IV Last administered on 10/10/18 02:44; Admin Dose 37.5 MLS/HR; Start 10/09/18 at 13:00 ANGELA CARY 7, 2019 11:17
--- NOTE | 2018-10-10 11:35 | CONS ---
Assessment/Plan Assessment/Plan Assessment/Plan (Daily) 1. Non Oliguric Acute kidney injury due to ATN from septic shock 2. Septic shock due to UTI 3. acute UTI with Urine Cx growing E.Coli 4. Acute hypoxic respiratory failure intubated on ventilator 5. H/o HTN 6 H/o HL 7. H/o Hypothyroidism 8. Bacteremia with blood cx 2/2 growing E.Coli Plan: pt remains intubated, BUN/Cr improved to 87/2.5, urine output 1.8 liter in last 24 hr,HCo3 17- pt has no family members available ,getting Albumin 25% 100ml Q 8 hr x 6 doses then stop - no acute indication of HD at this time Id following , IV abx for UTI and bacteremia , Renally dose all abx and monitor electrolytes will follow up Consultation Date/Type/Reason Admit Date/Time Oct 06, 2018 at 09:29 Initial Consult Date 10/06/18 Type of Consult NEPHROLOGY Requesting Provider: MANUEL ALEMAN Date/Time of Note DATE: 10/10/18 TIME: 11:35 Exam/Review of Systems Exam Vitals Vital Signs Date Temp Pulse Resp B/P (MAP) Pulse Ox O2 O2 Flow FiO2 Time Delivery Rate 10/10/18 102 28 92/57 (69) 100 Mechanical 08:45 Ventilator 10/10/18 98.0 08:00 10/10/18 30 08:00 10/06/18 15.0 08:15 Intake and Output 10/09/18 10/09/18 10/10/18 1515:00 23:00 07:00 IntakeIntake Total 934.8 ml 1091.61 ml 1218.00 ml OutputOutput Total 265 ml 995 ml 700 ml BalanceBalance 669.8 ml 96.61 ml 518.00 ml Results Result Diagram: 10/10/18 0550 10/10/18 0550 Results 24hrs Laboratory Tests Test 10/09/18 17:22 10/10/18 00:24 10/10/18 05:50 10/10/18 07:00 Prothrombin Time 14.6 14.4 15.1 H Prothrombin Time 1.1 1.1 1.2 Ratio INR International 1.13 1.11 1.18 Normalized Ratio Activated 123.0 *H 47.2 H 60.[address] Time White Blood Count 11.3 #H Red Blood Count 2.65 L Hemoglobin 8.3 L Hematocrit 24.1 L Mean Corpuscular 90.9 Volume Mean Corpuscular 31.3 Hemoglobin Mean Corpuscular 34.4 Hemoglobin Concent Red Cell 15.3 H Distribution Width Platelet Count 228 Mean Platelet 11.7 H Volume Immature 10.200 H Granulocytes % Neutrophils % Segmented 57 Neutrophils % (Manual) Band Neutrophils % 11 H (Manual) Lymphocytes % Lymphocytes % 19 (Manual) Reactive 3 H Lymphocytes % (Manual) Monocytes % Monocytes % 7 (Manual) Eosinophils % Eosinophils % 1 (Manual) Basophils % Metamyelocytes % 1 H (manual) Myelocytes % 1 H (Manual) Nucleated Red 0.0 Blood Cells % Immature 1.150 H Granulocytes # Neutrophils # Neutrophils # 6.6 (Manual) Band Neutrophils # 1.2 H Lymphocytes 2.1 (Manual) Lymphocytes # Reactive 0.3 H Lymphocytes # Monocytes # Monocytes # 0.7 (Manual) Eosinophils # Basophils # Metamyelocytes # 0.1 H Myelocytes # 0.1 H Nucleated Red Blood Cells # Platelet Estimate NORMAL Polychromasia 1+ Hypochromasia 1+ Poikilocytosis 2+ Anisocytosis 3+ Macrocytosis 3+ Sodium Level 138 Potassium Level 3.5 Chloride Level 111 H Carbon Dioxide 17 L Level Anion Gap 10 Blood Urea 87 H Nitrogen Creatinine 2.50 H Est Glomerular 19 L Filtrat Rate mL/min Glucose Level 114 Calcium Level 8.9 Valproic Acid 34 L (Depakene) Level Blood Gas Specimen Blood arterial Source Arterial Blood 10/10/2018 7:18:41 Date Drawn AM Arterial Blood pH 7.450 (Temp corrected) Arterial Blood 23.0 L pCO2 (Temp correct) Arterial Blood pO2 114.4 H (Temp corrected) Arterial Blood 15.6 L HCO3 Arterial Blood -7.1 L Base Excess Arterial Blood 98.4 H Oxygen Saturation Greg Test ACCEPTAB Arterial Blood Gas Right Radial Puncture Site Arterial 0.3 Blood Carboxyhemog lobin Arterial Blood 0.2 Methemoglobin Blood Gas A-a O2 72.5 H Differential Oxyhemoglobin 97.9 Percent Blood Gas 37.0 Temperature Blood Gas 28.0 Respiration Rate Blood Gas Actual 28 Respiration Rate Blood Gas Modality VENT - AC FiO2 30.0 Blood Gas Tidal 450.0 Volume Blood Gas Low PEEP 5.0 Setting Blood Gas Notified TM Whom Blood Gas Notified 10/10/2018 7:35:44 Time AM Test 10/10/18 08:20 Troponin I 0.166 *H Medications Medication Current Medications IV Flush (NS 3 ml) 3 ml PER PROTOCOL IV ; Start 10/06/18 at 09:30 Ondansetron HCl (Zofran Inj) 4 mg Q6H PRN IV NAUSEA/VOMITING; Start 10/06/18 at 09:30 Acetaminophen (Tylenol Tab) 650 mg Q6H PRN PO .PAIN 1-3 OR TEMP Last administered on 10/09/18at 06:25; Admin Dose 650 MG; Start 10/06/18 at 09:30 Acetaminophen/ Hydrocodone Bitart ([place] (5/325)) 1 tab Q6H PRN PO .MOD PAIN 4- 6; Start 10/06/18 at 09:30 Morphine Sulfate (morphine) 2 mg Q4H PRN IV .SEVERE PAIN 7-10; Start 10/06/18 at 09:30 Docusate Sodium (Colace) 100 mg Q12H PRN PO .CONSTIPATION; Start 10/06/18 at 09:30 Magnesium Hydroxide (Milk Of Mag) 30 ml DAILY PRN PO .CONSTIPATION; Start 10/06/18 at 09:30 Lorazepam (Ativan) 0.5 mg Q6H PRN IV ANXIETY Last administered on 10/08/18at 08:08; Admin Dose 0.5 MG; Start 10/06/18 at 09:30 Albuterol/ Ipratropium (Duoneb) 3 ml Q4H RESP THERAPY PRN HHN SHORTNESS OF BREATH; Start 10/06/18 at 09:30 Nitroglycerin (Nitroglycerin (Sl Tab) 0.4 Mg) 1 tab Q5M PRN SL ANGINA; Start 10/06/18 at 09:30 Bisacodyl (Dulcolax) 10 mg DAILY PRN PO CONSTIPATION; Start 10/06/18 at 09:30 Divalproex Sodium (Depakote) 500 mg BID PO Last administered on 10/10/18at 09:33; Admin Dose 500 MG; Start 10/06/18 at 21:00 Donepezil HCl (Aricept) 5 mg QHS PO Last administered on 10/09/18at 20:53; Admin Dose 5 MG; Start 10/06/18 at 21:00 Lactulose (Enulose) 20 gm TID PRN PO CONSTIPATION; Start 10/06/18 at 09:30 Levetiracetam (Keppra) 500 mg BID PO Last administered on 10/10/18 09:32; Admin Dose 500 MG; Start 10/06/18 at 21:00 Levothyroxine Sodium (Synthroid) 50 mcg BEFORE BREAKFAST PO Last administered on 10/10/18 09:32; Admin Dose 50 MCG; Start 10/07/18 at 07:00 Mineral Oil (Fleet Mineral Oil Enema) 133 ml DAILY PRN [place] CONSTIPATION; Start 10/06/18 at 09:30 Multivitamins Therapeutic (Theragran) 1 tab DAILY PO Last administered on 10/10/18 09:33; Admin Dose 1 TAB; Start 10/07/18 at 09:00 Polyethylene Glycol (Miralax) 17 gm BID PO Last administered on 10/10/18 09:32; Admin Dose 17 GM; Start 10/06/18 at 21:00 Norepinephrine 32 mg/Dextrose 250 ml @ 0.47 mls/hr TITRATE IV Last administered on 10/08/18 12:53; Admin Dose 4.69 MLS/HR; Start 10/06/18 at 11:30 Aspirin (Aspirin) 81 mg DAILY NGT Last administered on 10/10/18 09:33; Admin Dose 81 MG; Start 10/06/18 at 12:30 Heparin Sodium (Porcine) (Heparin (1000 Units/ml)) 4,000 unit PER PROTOCOL PRN IV aPTT<47; Start 10/06/18 at 12:30 Heparin Sodium (Porcine) 250 ml @ 8 mls/hr PER PROTOCOL IV Last administered on 10/10/18 07:05; Admin Dose 6 MLS/HR; Start 10/06/18 at 12:30 Atorvastatin Calcium (Lipitor) 40 mg DAILY@21 NGT Last administered on 10/09/18 20:53; Admin Dose 40 MG; Start 10/06/18 at 21:00 Miscellaneous Information (Flu Vaccine Previously Dispensed) FLU VACCINE PREVIOU... NOTE PRN XX NOTE; Start 10/06/18 at 18:00 Meropenem/Sodium Chloride 50 ml @ 100 mls/hr Q12 IVPB Last administered on 10/10/18 09:37; Admin Dose 100 MLS/HR; Start 10/07/18 at 12:00 Midazolam HCl 50 ml @ 0 mls/hr TITRATE IV Last administered on 10/09/18 22:21; Admin Dose 3 MLS/HR; Start 10/08/18 at 10:00 Linezolid 300 ml @ 300 mls/hr Q12 IVPB Last administered on 10/10/18 09:32; Admin Dose 300 MLS/HR; Start 10/08/18 at 12:30 Fentanyl 100 ml @ 2.5 mls/hr TITRATE IV Last administered on 10/10/18 01:01; Admin Dose 2.5 MLS/HR; Start 10/08/18 at 16:30 Lorazepam (Ativan) 1 mg Q6H PRN IV seizure; Start 10/08/18 at 16:00 Albumin Human 100 ml @ 100 mls/hr Q8H IV Last administered on 10/10/18 09:36; Admin Dose 100 MLS/HR; Start 10/09/18 at 09:00; Stop 10/11/18 at 01:59 Amiodarone HCl (Cordarone) 200 mg BID PO Last administered on 10/10/18 09:32; Admin Dose 200 MG; Start 10/09/18 at 21:00 Famotidine (Pepcid) 20 mg DAILY NGT Last administered on 10/10/18 09:33; Admin Dose 20 MG; Start 10/10/18 at 09:00 Phenylephrine HCl 250 ml @ 75 mls/hr TITRATE IV Last administered on 10/10/18 02:44; Admin Dose 37.5 MLS/HR; Start 10/09/18 at 13:00 VALARIE BENNETT MD Oct 10, 2018 11:35
--- NOTE | 2018-10-10 12:23 | PN ---
Date/Time of Note Date/Time of Note DATE: 10/10/18 TIME: 12:18 Assessment/Plan VTE Prophylaxis Risk score (from Ns)>0 risk: 11 SCD applied (from Ns): Yes Pharmacological prophylaxis: heparin Lines/Catheters IV C[facility]ter Type (from [facility] Central Line Central line still needed: Yes Urinary Cath still in place: Yes Reason Cath still needed: other (indicate) (intubated) Assessment/Plan Assessment/Plan A 67-year-old female coming in with signs of septic shock, likely secondary to urinary tract infection and pneumonia, elevated troponins, acute renal insufficiency, now intubated on pressor support. Also, with atrial fibrillation with rapid ventricular response, now in normal sinus rhythm. #Septic shock - Dr. Sanford following. - Likely due to UTI. - Urine cultures and Blood cultures growing E Coli x2. - Continue IV fluids and pressor support. Try to wean off as tolerated. - Tylenol p.r.n. pain and fevers. #Seizure - Continue keppra - Not waking up >24 hours off sedation. - Morning of 10/08 had whole body twitching concerning for seizures; got Ativan then Versed. - EEG appears to have localized lesion but CT head is negative. Neuro following. - Pulmonary to determine sedation weaning. # NSTEMI - Unclear if this is true non-ST elevation myocardial infarction versus demand ischemia. - Again, she will be placed on heparin drip for now given the significant elevation in her troponins, - Continue high dose aspirin. - Trend her troponins q.6 hours x2 more. - She is also on Lipitor. - Dr. Mello consulted. #A fib with RVR, paroxysmal - Dr. eMllo following - Converted to normal sinus after getting Cardizem in ED - Now on amiodarone gtt and digoxin # Renal insufficiency - improving - Dr. Davila consulted - Not anuric # Hypothyroidism - Continue current thyroid medicines. - Low TSH, normal fT4 consistent with sick euthyroid syndrome. # History of dementia. Continue Aricept for now. # History of high cholesterol. - Cont statin # Gastrointestinal prophylaxis. Add H2 panda. # Deep venous thrombosis prophylaxis. She is on heparin drip. Result Diagram: 10/10/18 0550 10/10/18 0550 Subjective 24 Hr Interval Summary Free Text/Dictation No acute overnight events. Head CT negative. Patient still in A fib On phenylephrine; taken off norepinephrine. Still unresponsive on Versed. Exam/Review of Systems Exam Vitals Vital Signs Date Temp Pulse Resp B/P (MAP) Pulse Ox O2 O2 Flow FiO2 Time Delivery Rate 10/10/18 98.1 126 27 106/66 98 Mechanical 12:00 (79) Ventilator 10/10/18 30 08:00 10/06/18 15.0 08:15 Intake and Output 10/09/18 10/09/18 10/10/18 1515:00 23:00 07:00 IntakeIntake Total 934.8 ml 1091.61 ml 1218.00 ml OutputOutput Total 265 ml 995 ml 700 ml BalanceBalance 669.8 ml 96.61 ml 518.00 ml Exam GENERAL: Well developed woman lying in bed, intubated, sedated HEENT: Pupils dilated bilaterally, unresponsive to light. Moist mucous membranes, ET tube in place. NECK: Supple, no thyromegaly. LUNGS: Mechanical breath sounds equal bilaterally. CARDIOVASCULAR: S1, S2 heard. No rubs or gallops. ABDOMEN: Soft, nontender, nondistended. Normal bowel sounds. No rebound or guarding. MUSCULOSKELETAL: No lower extremity edema bilaterally. Results Results 24hrs Laboratory Tests Test 10/09/18 17:22 10/10/18 00:24 10/10/18 05:50 10/10/18 07:00 Prothrombin Time 14.6 14.4 15.1 H Prothrombin Time 1.1 1.1 1.2 Ratio INR International 1.13 1.11 1.18 Normalized Ratio Activated 123.0 *H 47.2 H 60[address] Time White Blood Count 11.3 #H Red Blood Count 2.65 L Hemoglobin 8.3 L Hematocrit 24.1 L Mean Corpuscular 90.9 Volume Mean Corpuscular 31.3 Hemoglobin Mean Corpuscular 34.4 Hemoglobin Concent Red Cell 15.3 H Distribution Width Platelet Count 228 Mean Platelet 11.7 H Volume Immature 10.200 H Granulocytes % Neutrophils % Segmented 57 Neutrophils % (Manual) Band Neutrophils % 11 H (Manual) Lymphocytes % Lymphocytes % 19 (Manual) Reactive 3 H Lymphocytes % (Manual) Monocytes % Monocytes % 7 (Manual) Eosinophils % Eosinophils % 1 (Manual) Basophils % Metamyelocytes % 1 H (manual) Myelocytes % 1 H (Manual) Nucleated Red 0.0 Blood Cells % Immature 1.150 H Granulocytes # Neutrophils # Neutrophils # 6.6 (Manual) Band Neutrophils # 1.2 H Lymphocytes 2.1 (Manual) Lymphocytes # Reactive 0.3 H Lymphocytes # Monocytes # Monocytes # 0.7 (Manual) Eosinophils # Basophils # Metamyelocytes # 0.1 H Myelocytes # 0.1 H Nucleated Red Blood Cells # Platelet Estimate NORMAL Polychromasia 1+ Hypochromasia 1+ Poikilocytosis 2+ Anisocytosis 3+ Macrocytosis 3+ Sodium Level 138 Potassium Level 3.5 Chloride Level 111 H Carbon Dioxide 17 L Level Anion Gap 10 Blood Urea 87 H Nitrogen Creatinine 2.50 H Est Glomerular 19 L Filtrat Rate mL/min Glucose Level 114 Calcium Level 8.9 Valproic Acid 34 L (Depakene) Level Blood Gas Specimen Blood arterial Source Arterial Blood 10/10/2018 7:18:41 Date Drawn AM Arterial Blood pH 7.450 (Temp corrected) Arterial Blood 23.0 L pCO2 (Temp correct) Arterial Blood pO2 114.4 H (Temp corrected) Arterial Blood 15.6 L HCO3 Arterial Blood -7.1 L Base Excess Arterial Blood 98.4 H Oxygen Saturation Greg Test ACCEPTAB Arterial Blood Gas Right Radial Puncture Site Arterial 0.3 Blood Carboxyhemog lobin Arterial Blood 0.2 Methemoglobin Blood Gas A-a O2 72.5 H Differential Oxyhemoglobin 97.9 Percent Blood Gas 37.0 Temperature Blood Gas 28.0 Respiration Rate Blood Gas Actual 28 Respiration Rate Blood Gas Modality VENT - AC FiO2 30.0 Blood Gas Tidal 450.0 Volume Blood Gas Low PEEP 5.0 Setting Blood Gas Notified TM Whom Blood Gas Notified 10/10/2018 7:35:44 Time AM Test 10/10/18 08:20 Troponin I 0.166 *H Medications Medication Current Medications IV Flush (NS 3 ml) 3 ml PER PROTOCOL IV ; Start 10/06/18 at 09:30 Ondansetron HCl (Zofran Inj) 4 mg Q6H PRN IV NAUSEA/VOMITING; Start 10/06/18 at 09:30 Acetaminophen (Tylenol Tab) 650 mg Q6H PRN PO .PAIN 1-3 OR TEMP Last administered on 10/09/18at 06:25; Admin Dose 650 MG; Start 10/06/18 at 09:30 Acetaminophen/ Hydrocodone Bitart ([place] (5/325)) 1 tab Q6H PRN PO .MOD PAIN 4- 6; Start 10/06/18 at 09:30 Morphine Sulfate (morphine) 2 mg Q4H PRN IV .SEVERE PAIN 7-10; Start 10/06/18 at 09:30 Docusate Sodium (Colace) 100 mg Q12H PRN PO .CONSTIPATION; Start 10/06/18 at 09:30 Magnesium Hydroxide (Milk Of Mag) 30 ml DAILY PRN PO .CONSTIPATION; Start 10/06/18 at 09:30 Lorazepam (Ativan) 0.5 mg Q6H PRN IV ANXIETY Last administered on 10/08/18at 08:08; Admin Dose 0.5 MG; Start 10/06/18 at 09:30 Albuterol/ Ipratropium (Duoneb) 3 ml Q4H RESP THERAPY PRN HHN SHORTNESS OF BREATH; Start 10/06/18 at 09:30 Nitroglycerin (Nitroglycerin (Sl Tab) 0.4 Mg) 1 tab Q5M PRN SL ANGINA; Start 10/06/18 at 09:30 Bisacodyl (Dulcolax) 10 mg DAILY PRN PO CONSTIPATION; Start 10/06/18 at 09:30 Divalproex Sodium (Depakote) 500 mg BID PO Last administered on 10/10/18at 09:33; Admin Dose 500 MG; Start 10/06/18 at 21:00 Donepezil HCl (Aricept) 5 mg QHS PO Last administered on 10/09/18at 20:53; Admin Dose 5 MG; Start 10/06/18 at 21:00 Lactulose (Enulose) 20 gm TID PRN PO CONSTIPATION; Start 10/06/18 at 09:30 Levetiracetam (Keppra) 500 mg BID PO Last administered on 10/10/18at 09:32; Admin Dose 500 MG; Start 10/06/18 at 21:00 Levothyroxine Sodium (Synthroid) 50 mcg BEFORE BREAKFAST PO Last administered on 10/10/18at 09:32; Admin Dose 50 MCG; Start 10/07/18 at 07:00 Mineral Oil (Fleet Mineral Oil Enema) 133 ml DAILY PRN [place] CONSTIPATION; Start 10/06/18 at 09:30 Multivitamins Therapeutic (Theragran) 1 tab DAILY PO Last administered on 10/10/18 09:33; Admin Dose 1 TAB; Start 10/07/18 at 09:00 Polyethylene Glycol (Miralax) 17 gm BID PO Last administered on 10/10/18 09:32; Admin Dose 17 GM; Start 10/06/18 at 21:00 Norepinephrine 32 mg/Dextrose 250 ml @ 0.47 mls/hr TITRATE IV Last administered on 10/08/18 12:53; Admin Dose 4.69 MLS/HR; Start 10/06/18 at 11:30 Aspirin (Aspirin) 81 mg DAILY NGT Last administered on 10/10/18 09:33; Admin Dose 81 MG; Start 10/06/18 at 12:30 Heparin Sodium (Porcine) (Heparin (1000 Units/ml)) 4,000 unit PER PROTOCOL PRN IV aPTT<47; Start 10/06/18 at 12:30 Heparin Sodium (Porcine) 250 ml @ 8 mls/hr PER PROTOCOL IV Last administered on 10/10/18 07:05; Admin Dose 6 MLS/HR; Start 10/06/18 at 12:30 Atorvastatin Calcium (Lipitor) 40 mg DAILY@21 NGT Last administered on 10/09/18 20:53; Admin Dose 40 MG; Start 10/06/18 at 21:00 Miscellaneous Information (Flu Vaccine Previously Dispensed) FLU VACCINE PREVIOU... NOTE PRN XX NOTE; Start 10/06/18 at 18:00 Meropenem/Sodium Chloride 50 ml @ 100 mls/hr Q12 IVPB Last administered on 10/10/18 09:37; Admin Dose 100 MLS/HR; Start 10/07/18 at 12:00 Midazolam HCl 50 ml @ 0 mls/hr TITRATE IV Last administered on 10/09/18 22:21; Admin Dose 3 MLS/HR; Start 10/08/18 at 10:00 Linezolid 300 ml @ 300 mls/hr Q12 IVPB Last administered on 10/10/18 09:32; Admin Dose 300 MLS/HR; Start 10/08/18 at 12:30 Fentanyl 100 ml @ 2.5 mls/hr TITRATE IV Last administered on 10/10/18 01:01; Admin Dose 2.5 MLS/HR; Start 10/08/18 at 16:30 Lorazepam (Ativan) 1 mg Q6H PRN IV seizure; Start 10/08/18 at 16:00 Albumin Human 100 ml @ 100 mls/hr Q8H IV Last administered on 10/10/18at 09:36; Admin Dose 100 MLS/HR; Start 10/09/18 at 09:00; Stop 10/11/18 at 01:59 Amiodarone HCl (Cordarone) 200 mg BID PO Last administered on 10/10/18at 09:32; Admin Dose 200 MG; Start 10/09/18 at 21:00 Famotidine (Pepcid) 20 mg DAILY NGT Last administered on 10/10/18 09:33; Admin Dose 20 MG; Start 10/10/18 at 09:00 Phenylephrine HCl 250 ml @ 75 mls/hr TITRATE IV Last administered on 10/10/18at 02:44; Admin Dose 37.5 MLS/HR; Start 10/09/18 at 13:00 ANGELA MOSQUERA MD Oct 10, 2018 12:23
--- NOTE | 2018-10-10 12:33 | CONS ---
Assessment/Plan Assessment/Plan Hospital Course (Demo Recall) No acute events patient remains on Levophed drip, intubated, sedated with a T- max of 100.2. WBC 11.3 H&H 8.3 and 24.1 platelets 228 BUN 87 creatinine 2.50 Chest x-ray this morning revealed interval decreased right basilar infiltrates. CT of the brain revealed no acute intracranial pathology Microbiology: Blood and urine cultures growing E. coli Chest x-ray this morning revealed increased right basilar infiltrate concerning for pneumonia Indwelling: Endotracheal tube NG tube Piña catheter right IJ triple-lumen catheter Diagnostic: Chest x-ray this morning revealed no evidence of acute cardiopulmonary disease Allergy: Penicillin, clindamycin Antibiotics: Merrem Zyvox Physical examination: Well-developed chronically ill-appearing elderly woman. The patient is in no distress. Head atraumatic normocephalic. Neck is supple. Chest rise symmetrical, breath sounds diminished bases. Heart: S1-S2, tachycardic, irregular. Abdomen soft bowel sounds hypoactive. Extremities mo ttled cyanotic Assessment: 1. Severe sepsis with shock 2. E coli bacteremia secondary to urinary tract infection 3. Acute hypoxemic respiratory failure 4. Healthcare associated pneumonia, possibly aspiration 4. Acute possibly on chronic kidney disease 5. Non-ST elevation NM 6. Atrial fibrillation with RVR Plan: Patient remains hemodynamically unstable, on appropriate antibiotic regimen, chest x-ray with improvement, WBC trending down, repeat blood cultures negative. Continue present care Consultation Date/Type/Reason Admit Date/Time Oct 06, 2018 at 09:29 Initial Consult Date 10/06/18 Type of Consult id Requesting Provider: MANUEL ALEMAN Date/Time of Note DATE: 10/10/18 TIME: 12:32 Exam/Review of Systems Exam Vitals Vital Signs Date Temp Pulse Resp B/P (MAP) Pulse Ox O2 O2 Flow FiO2 Time Delivery Rate 10/10/18 98.1 126 27 106/66 98 Mechanical 12:00 (79) Ventilator 10/10/18 30 08:00 10/06/18 15.0 08:15 Intake and Output 10/09/18 10/09/18 10/10/18 1515:00 23:00 07:00 IntakeIntake Total 934.8 ml 1091.61 ml 1218.00 ml OutputOutput Total 265 ml 995 ml 700 ml BalanceBalance 669.8 ml 96.61 ml 518.00 ml Results Result Diagram: 10/10/18 0550 10/10/18 0550 Results 24hrs Laboratory Tests Test 10/09/18 17:22 10/10/18 00:24 10/10/18 05:50 10/10/18 07:00 Prothrombin Time 14.6 14.4 15.1 H Prothrombin Time 1.1 1.1 1.2 Ratio INR International 1.13 1.11 1.18 Normalized Ratio Activated 123.0 *H 47.2 H 60.[address] Time White Blood Count 11.3 #H Red Blood Count 2.65 L Hemoglobin 8.3 L Hematocrit 24.1 L Mean Corpuscular 90.9 Volume Mean Corpuscular 31.3 Hemoglobin Mean Corpuscular 34.4 Hemoglobin Concent Red Cell 15.3 H Distribution Width Platelet Count 228 Mean Platelet 11.7 H Volume Immature 10.200 H Granulocytes % Neutrophils % Segmented 57 Neutrophils % (Manual) Band Neutrophils % 11 H (Manual) Lymphocytes % Lymphocytes % 19 (Manual) Reactive 3 H Lymphocytes % (Manual) Monocytes % Monocytes % 7 (Manual) Eosinophils % Eosinophils % 1 (Manual) Basophils % Metamyelocytes % 1 H (manual) Myelocytes % 1 H (Manual) Nucleated Red 0.0 Blood Cells % Immature 1.150 H Granulocytes # Neutrophils # Neutrophils # 6.6 (Manual) Band Neutrophils # 1.2 H Lymphocytes 2.1 (Manual) Lymphocytes # Reactive 0.3 H Lymphocytes # Monocytes # Monocytes # 0.7 (Manual) Eosinophils # Basophils # Metamyelocytes # 0.1 H Myelocytes # 0.1 H Nucleated Red Blood Cells # Platelet Estimate NORMAL Polychromasia 1+ Hypochromasia 1+ Poikilocytosis 2+ Anisocytosis 3+ Macrocytosis 3+ Sodium Level 138 Potassium Level 3.5 Chloride Level 111 H Carbon Dioxide 17 L Level Anion Gap 10 Blood Urea 87 H Nitrogen Creatinine 2.50 H Est Glomerular 19 L Filtrat Rate mL/min Glucose Level 114 Calcium Level 8.9 Valproic Acid 34 L (Depakene) Level Blood Gas Specimen Blood arterial Source Arterial Blood 10/10/2018 7:18:41 Date Drawn AM Arterial Blood pH 7.450 (Temp corrected) Arterial Blood 23.0 L pCO2 (Temp correct) Arterial Blood pO2 114.4 H (Temp corrected) Arterial Blood 15.6 L HCO3 Arterial Blood -7.1 L Base Excess Arterial Blood 98.4 H Oxygen Saturation Greg Test ACCEPTAB Arterial Blood Gas Right Radial Puncture Site Arterial 0.3 Blood Carboxyhemog lobin Arterial Blood 0.2 Methemoglobin Blood Gas A-a O2 72.5 H Differential Oxyhemoglobin 97.9 Percent Blood Gas 37.0 Temperature Blood Gas 28.0 Respiration Rate Blood Gas Actual 28 Respiration Rate Blood Gas Modality VENT - AC FiO2 30.0 Blood Gas Tidal 450.0 Volume Blood Gas Low PEEP 5.0 Setting Blood Gas Notified TM Whom Blood Gas Notified 10/10/2018 7:35:44 Time AM Test 10/10/18 08:20 Troponin I 0.166 *H Medications Medication Current Medications IV Flush (NS 3 ml) 3 ml PER PROTOCOL IV ; Start 10/06/18 at 09:30 Ondansetron HCl (Zofran Inj) 4 mg Q6H PRN IV NAUSEA/VOMITING; Start 10/06/18 at 09:30 Acetaminophen (Tylenol Tab) 650 mg Q6H PRN PO .PAIN 1-3 OR TEMP Last administered on 10/09/18at 06:25; Admin Dose 650 MG; Start 10/06/18 at 09:30 Acetaminophen/ Hydrocodone Bitart ([place] (5/325)) 1 tab Q6H PRN PO .MOD PAIN 4- 6; Start 10/06/18 at 09:30 Morphine Sulfate (morphine) 2 mg Q4H PRN IV .SEVERE PAIN 7-10; Start 10/06/18 at 09:30 Docusate Sodium (Colace) 100 mg Q12H PRN PO .CONSTIPATION; Start 10/06/18 at 09:30 Magnesium Hydroxide (Milk Of Mag) 30 ml DAILY PRN PO .CONSTIPATION; Start 10/06/18 at 09:30 Lorazepam (Ativan) 0.5 mg Q6H PRN IV ANXIETY Last administered on 10/08/18at 08:08; Admin Dose 0.5 MG; Start 10/06/18 at 09:30 Albuterol/ Ipratropium (Duoneb) 3 ml Q4H RESP THERAPY PRN HHN SHORTNESS OF BREATH; Start 10/06/18 at 09:30 Nitroglycerin (Nitroglycerin (Sl Tab) 0.4 Mg) 1 tab Q5M PRN SL ANGINA; Start 10/06/18 at 09:30 Bisacodyl (Dulcolax) 10 mg DAILY PRN PO CONSTIPATION; Start 10/06/18 at 09:30 Divalproex Sodium (Depakote) 500 mg BID PO Last administered on 10/10/18 09:33; Admin Dose 500 MG; Start 10/06/18 at 21:00 Donepezil HCl (Aricept) 5 mg QHS PO Last administered on 10/09/18 20:53; Admin Dose 5 MG; Start 10/06/18 at 21:00 Lactulose (Enulose) 20 gm TID PRN PO CONSTIPATION; Start 10/06/18 at 09:30 Levetiracetam (Keppra) 500 mg BID PO Last administered on 10/10/18 09:32; Admin Dose 500 MG; Start 10/06/18 at 21:00 Levothyroxine Sodium (Synthroid) 50 mcg BEFORE BREAKFAST PO Last administered on 10/10/18 09:32; Admin Dose 50 MCG; Start 10/07/18 at 07:00 Mineral Oil (Fleet Mineral Oil Enema) 133 ml DAILY PRN [place] CONSTIPATION; Start 10/06/18 at 09:30 Multivitamins Therapeutic (Theragran) 1 tab DAILY PO Last administered on 10/10/18 09:33; Admin Dose 1 TAB; Start 10/07/18 at 09:00 Polyethylene Glycol (Miralax) 17 gm BID PO Last administered on 10/10/18 09:32; Admin Dose 17 GM; Start 10/06/18 at 21:00 Norepinephrine 32 mg/Dextrose 250 ml @ 0.47 mls/hr TITRATE IV Last administered on 10/08/18 12:53; Admin Dose 4.69 MLS/HR; Start 10/06/18 at 11:30 Aspirin (Aspirin) 81 mg DAILY NGT Last administered on 10/10/18 09:33; Admin Dose 81 MG; Start 10/06/18 at 12:30 Heparin Sodium (Porcine) (Heparin (1000 Units/ml)) 4,000 unit PER PROTOCOL PRN IV aPTT<47; Start 10/06/18 at 12:30 Heparin Sodium (Porcine) 250 ml @ 8 mls/hr PER PROTOCOL IV Last administered on 10/10/18 07:05; Admin Dose 6 MLS/HR; Start 10/06/18 at 12:30 Atorvastatin Calcium (Lipitor) 40 mg DAILY@21 NGT Last administered on 10/09/18 20:53; Admin Dose 40 MG; Start 10/06/18 at 21:00 Miscellaneous Information (Flu Vaccine Previously Dispensed) FLU VACCINE PREVIOU... NOTE PRN XX NOTE; Start 10/06/18 at 18:00 Meropenem/Sodium Chloride 50 ml @ 100 mls/hr Q12 IVPB Last administered on 10/10/18 09:37; Admin Dose 100 MLS/HR; Start 10/07/18 at 12:00 Midazolam HCl 50 ml @ 0 mls/hr TITRATE IV Last administered on 10/09/18 22:21; Admin Dose 3 MLS/HR; Start 10/08/18 at 10:00 Linezolid 300 ml @ 300 mls/hr Q12 IVPB Last administered on 10/10/18 09:32; Admin Dose 300 MLS/HR; Start 10/08/18 at 12:30 Fentanyl 100 ml @ 2.5 mls/hr TITRATE IV Last administered on 10/10/18 01:01; Admin Dose 2.5 MLS/HR; Start 10/08/18 at 16:30 Lorazepam (Ativan) 1 mg Q6H PRN IV seizure; Start 10/08/18 at 16:00 Albumin Human 100 ml @ 100 mls/hr Q8H IV Last administered on 10/10/18 09:36; Admin Dose 100 MLS/HR; Start 10/09/18 at 09:00; Stop 10/11/18 at 01:59 Amiodarone HCl (Cordarone) 200 mg BID PO Last administered on 10/10/18 09:32; Admin Dose 200 MG; Start 10/09/18 at 21:00 Famotidine (Pepcid) 20 mg DAILY NGT Last administered on 10/10/18 09:33; Admin Dose 20 MG; Start 10/10/18 at 09:00 Phenylephrine HCl 250 ml @ 75 mls/hr TITRATE IV Last administered on 10/10/18 02:44; Admin Dose 37.5 MLS/HR; Start 10/09/18 at 13:00 MAROKS BRADY NP Oct 10, 2018 12:33
--- NOTE | 2018-10-10 13:34 | CONS ---
Assessment/Plan Assessment/Plan Hospital Course 67 F c/ dementia, epilepsy, and other comorbidities, who presents for management of cardiopulmonary Sx. She was noted to have a generalized convulsion on 10/08, for which neurology is consulted... Certainly her acute illness is lowering her seizure threshold.. CTH is without acute intracranial pathology EEG is notable for severe left hemispheric on diffuse slowing P: OK to continue asa for primary stroke prevention daily given her uncontrolled afib Bolus depakote 1g IV x 1 dose and change maintenance Depakote 500 bid to iv for now, repeat lvl in am Cont Keppra 500 bid per ops given her poor renal function Ativan iv prn prolonged seizure or cluster Continued medical management per primary Will follow Consultation Date/Type/Reason Admit Date/Time Oct 06, 2018 at 09:29 Type of Consult Neurology Reason for Consultation seizure Requesting Provider: MANUEL ALEMAN Date/Time of Note DATE: 10/10/18 TIME: 13:34 24 HR Interval Summary Free Text/Dictation Continues critical care. No seizure events reported. Pt remains unresponsive. On fentanyl gtt Subjective hx not possible: pt non-verbal, pt critical Exam Vital Signs Vitals Vital Signs Date Temp Pulse Resp B/P (MAP) Pulse Ox O2 O2 Flow FiO2 Time Delivery Rate 10/10/18 98.1 126 27 106/66 98 Mechanical 12:00 (79) Ventilator 10/10/18 30 08:00 10/06/18 15.0 08:15 Intake and Output 10/09/18 10/09/18 10/10/18 1515:00 23:00 07:00 IntakeIntake Total 934.8 ml 1091.61 ml 1218.00 ml OutputOutput Total 265 ml 995 ml 700 ml BalanceBalance 669.8 ml 96.61 ml 518.00 ml Exam PE: Gen Appearance: No Apparent Distress HEENT: Intubated Cardiovascular: uncontrolled afib c/ HR 130s Abdomen: Soft Extremities: Dry NE: The patient was comatose and nonverbal. Cranial nerve examination was limited by mental status. Pupils were equal and reactive to light. There was no afferent pupillary defect. Funduscopic examination was limited. Face was grossly symmetric, w/ present corneal reflexes. Tone was normal. Muscle bulk was normal. I did not see fasciculations. The patient did not withdraw to noxious stimulation x 4. Coordination and gait testing was limited by mental status. Arm and leg reflexes were within normal limits and symmetric. Beck's sign was absent. Plantar responses were mute. CHEYENNE JEAN NP Oct 10, 2018 13:34 FROYLAN WOOD Oct 10, 2018 15:11
[2018-10-10] MEDS ORDERED: VALPROATE INJ 1,000 MG in SOD CHLORIDE 0.9% 100 ML IVPB ONE (14:00)
[2018-10-10] MEDS: VALPROATE INJ 500 MG in SOD CHLORIDE 0.9% 50 ML IVPB SCH (21:30)
[2018-10-10] MEDS: ATORVASTATIN 40 MG TAB NGT SCH (21:31)
[2018-10-10] MEDS: DONEPEZIL 5 MG TAB PO SCH (21:31)
[2018-10-10] MEDS ORDERED: POLYETHYLENE GLYCOL 17 GM PACKET PO PRN (22:00)
[2018-10-11] VITALS (92 sets, daily range): BP systolic 64–136; BP diastolic 44–100; PULSE 86–136; RESP 16–36
[2018-10-11] MEDS: ALBUMIN HUMAN 25% 100 ML IV SCH (00:41)
[2018-10-11] MEDS: PHENYLephrine 20MG IN 250 ML 250 ML IV SCH (01:11)
[2018-10-11] MEDS: LORAZEPAM 2 MG INJ IV PRN ×3 (03:27→15:22)
--- NOTE | 2018-10-11 07:19 | CONS ---
Assessment/Plan Assessment/Plan Assessment/Plan (Daily) 1. Non Oliguric Acute kidney injury due to ATN from septic shock 2. Septic shock due to UTI 3. acute UTI with Urine Cx growing E.Coli 4. Acute hypoxic respiratory failure intubated on ventilator 5. H/o HTN 6 H/o HL 7. H/o Hypothyroidism 8. Bacteremia with blood cx 2/2 growing E.Coli Plan: pt remains intubated, BUN/Cr improved to 74/2.03, urine output 1.3 liter in last 24 hr,HCo3 18- - no acute indication of HD at this time Id following , IV abx for UTI and bacteremia , Renally dose all abx and monitor electrolytes ventilator management as per Pulmonary will follow up Consultation Date/Type/Reason Admit Date/Time Oct 06, 2018 at 09:29 Initial Consult Date 10/06/18 Type of Consult NEPHROLOGY Requesting Provider: MANUEL ALEMAN Date/Time of Note DATE: 10/11/18 TIME: 07:19 Exam/Review of Systems Exam Vitals Vital Signs Date Temp Pulse Resp B/P (MAP) Pulse Ox O2 O2 Flow FiO2 Time Delivery Rate 10/11/18 116 28 111/67 100 06:15 (82) 10/11/18 Mechanical 06:00 Ventilator 10/11/18 30 05:33 10/11/18 98.9 04:00 Intake and Output 10/10/18 10/10/18 10/11/18 1515:00 23:00 07:00 IntakeIntake Total 785.5 ml 1139.50 ml 638.25 ml OutputOutput Total 320 ml 475 ml 450 ml BalanceBalance 465.5 ml 664.50 ml 188.25 ml Exam Constitutional: non-verbal, other (Intuabted, on ventilator ) Respiratory: congested cough, crackles/rales, diminished breath sounds Cardiovascular: nl pulses, irregular rhythm Gastrointestinal: soft, non-tender Musculoskeletal: swelling Neurological: other (sedated on ventilator ) Results Result Diagram: 10/11/18 0400 10/11/18 0400 Results 24hrs Laboratory Tests Test 10/10/18 08:20 10/10/18 14:01 10/11/18 04:00 Troponin I 0.166 *H Prothrombin Time 14.8 14.7 Prothrombin Time Ratio 1.2 1.1 INR International Normalized Ratio 1.15 1.14 Activated Partial Thromboplast Time 58.7 H 37.7 H Valproic Acid (Depakene) Level 33 L 42 L White Blood Count 10.1 Red Blood Count 2.29 L Hemoglobin 7.3 L Hematocrit 21.2 L Mean Corpuscular Volume 92.6 Mean Corpuscular Hemoglobin 31.9 Mean Corpuscular Hemoglobin Concent 34.4 Red Cell Distribution Width 15.4 H Platelet Count 215 Mean Platelet Volume 12.2 H Immature Granulocytes % 7.300 H Neutrophils % Segmented Neutrophils % (Manual) 59 Band Neutrophils % (Manual) 13 H Lymphocytes % Lymphocytes % (Manual) 17 Reactive Lymphocytes % (Manual) 2 H Monocytes % Monocytes % (Manual) 6 Eosinophils % Basophils % Metamyelocytes % (manual) 2 H Myelocytes % (Manual) 1 H Nucleated Red Blood Cells % 0.0 Immature Granulocytes # 0.740 H Neutrophils # Neutrophils # (Manual) 6.1 Band Neutrophils # 1.3 H Lymphocytes (Manual) 1.7 Lymphocytes # Reactive Lymphocytes # 0.2 H Monocytes # Monocytes # (Manual) 0.6 Eosinophils # Basophils # Metamyelocytes # 0.2 H Myelocytes # 0.1 H Nucleated Red Blood Cells # Platelet Estimate NORMAL Hypochromasia 1+ Anisocytosis 2+ Macrocytosis 2+ Spherocytes 1+ Target Cells 1+ Sodium Level 143 Potassium Level 3.4 L Chloride Level 113 H Carbon Dioxide Level 18 L Anion Gap 12 Blood Urea Nitrogen 74 H Creatinine 2.03 H Est Glomerular Filtrat Rate mL/min 24 L Glucose Level 127 Calcium Level 8.7 Phosphorus Level 3.6 Magnesium Level 2.6 H Medications Medication Current Medications IV Flush (NS 3 ml) 3 ml PER PROTOCOL IV ; Start 10/06/18 at 09:30 Ondansetron HCl (Zofran Inj) 4 mg Q6H PRN IV NAUSEA/VOMITING; Start 10/06/18 at 09:30 Acetaminophen (Tylenol Tab) 650 mg Q6H PRN PO .PAIN 1-3 OR TEMP Last administered on 10/09/18at 06:25; Admin Dose 650 MG; Start 10/06/18 at 09:30 Acetaminophen/ Hydrocodone Bitart ([place] (5/325)) 1 tab Q6H PRN PO .MOD PAIN 4- 6; Start 10/06/18 at 09:30 Morphine Sulfate (morphine) 2 mg Q4H PRN IV .SEVERE PAIN 7-10; Start 10/06/18 at 09:30 Docusate Sodium (Colace) 100 mg Q12H PRN PO .CONSTIPATION; Start 10/06/18 at 09:30 Magnesium Hydroxide (Milk Of Mag) 30 ml DAILY PRN PO .CONSTIPATION; Start 10/06/18 at 09:30 Lorazepam (Ativan) 0.5 mg Q6H PRN IV ANXIETY Last administered on 10/11/18 03:27; Admin Dose 0.5 MG; Start 10/06/18 at 09:30 Albuterol/ Ipratropium (Duoneb) 3 ml Q4H RESP THERAPY PRN HHN SHORTNESS OF BREATH; Start 10/06/18 at 09:30 Nitroglycerin (Nitroglycerin (Sl Tab) 0.4 Mg) 1 tab Q5M PRN SL ANGINA; Start 10/06/18 at 09:30 Bisacodyl (Dulcolax) 10 mg DAILY PRN PO CONSTIPATION; Start 10/06/18 at 09:30 Donepezil HCl (Aricept) 5 mg QHS PO Last administered on 10/10/18 21:31; Admin Dose 5 MG; Start 10/06/18 at 21:00 Lactulose (Enulose) 20 gm TID PRN PO CONSTIPATION; Start 10/06/18 at 09:30 Levetiracetam (Keppra) 500 mg BID PO Last administered on 10/10/18 21:31; Admin Dose 500 MG; Start 10/06/18 at 21:00 Levothyroxine Sodium (Synthroid) 50 mcg BEFORE BREAKFAST PO Last administered on 10/10/18 09:32; Admin Dose 50 MCG; Start 10/07/18 at 07:00 Mineral Oil (Fleet Mineral Oil Enema) 133 ml DAILY PRN [place] CONSTIPATION; Start 10/06/18 at 09:30 Multivitamins Therapeutic (Theragran) 1 tab DAILY PO Last administered on 10/10/18 09:33; Admin Dose 1 TAB; Start 10/07/18 at 09:00 Norepinephrine 32 mg/Dextrose 250 ml @ 0.47 mls/hr TITRATE IV Last administered on 10/08/18 12:53; Admin Dose 4.69 MLS/HR; Start 10/06/18 at 11:30 Aspirin (Aspirin) 81 mg DAILY NGT Last administered on 10/10/18 09:33; Admin Dose 81 MG; Start 10/06/18 at 12:30 Heparin Sodium (Porcine) (Heparin (1000 Units/ml)) 4,000 unit PER PROTOCOL PRN IV aPTT<47; Start 10/06/18 at 12:30 Heparin Sodium (Porcine) 250 ml @ 8 mls/hr PER PROTOCOL IV Last administered on 10/10/18 07:05; Admin Dose 6 MLS/HR; Start 10/06/18 at 12:30 Atorvastatin Calcium (Lipitor) 40 mg DAILY@21 NGT Last administered on 10/10/18 21:31; Admin Dose 40 MG; Start 10/06/18 at 21:00 Miscellaneous Information (Flu Vaccine Previously Dispensed) FLU VACCINE PREVIOU... NOTE PRN XX NOTE; Start 10/06/18 at 18:00 Meropenem/Sodium Chloride 50 ml @ 100 mls/hr Q12 IVPB Last administered on 10/10/18 21:30; Admin Dose 100 MLS/HR; Start 10/07/18 at 12:00 Midazolam HCl 50 ml @ 0 mls/hr TITRATE IV Last administered on 10/09/18 22:21; Admin Dose 3 MLS/HR; Start 10/08/18 at 10:00 Linezolid 300 ml @ 300 mls/hr Q12 IVPB Last administered on 10/10/18 21:30; Admin Dose 300 MLS/HR; Start 10/08/18 at 12:30 Fentanyl 100 ml @ 2.5 mls/hr TITRATE IV Last administered on 10/10/18 01:01; Admin Dose 2.5 MLS/HR; Start 10/08/18 at 16:30 Lorazepam (Ativan) 1 mg Q6H PRN IV seizure; Start 10/08/18 at 16:00 Amiodarone HCl (Cordarone) 200 mg BID PO Last administered on 10/10/18 21:32; Admin Dose 200 MG; Start 10/09/18 at 21:00 Famotidine (Pepcid) 20 mg DAILY NGT Last administered on 10/10/18 09:33; Admin Dose 20 MG; Start 10/10/18 at 09:00 Phenylephrine HCl 250 ml @ 75 mls/hr TITRATE IV Last administered on 10/11/18at 01:11; Admin Dose 7.5 MLS/HR; Start 10/09/18 at 13:00 Valproate Sodium 500 mg/Sodium Chloride 55 ml @ 55 mls/hr BID IVPB Last admin istered on 10/10/18at 21:30; Admin Dose 55 MLS/HR; Start 10/10/18 at 21:00 Polyethylene Glycol (Miralax) 17 gm BID PRN PO constipation; Start 10/10/18 at 22:00 Potassium Chloride 50 ml @ 25 mls/hr Q2H IVPB ; Start 10/11/18 at 08:00; Stop 10/11/18 at 11:59 VALARIE BENNETT MD Oct 11, 2018 07:19
[2018-10-11] MEDS: POTASSIUM CHLORIDE 50 ML IVPB SCH ×2 (07:24→10:21)
[2018-10-11] MEDS: AMIODARONE 200 MG TAB PO SCH ×2 (09:35→20:59)
[2018-10-11] MEDS: MULTIVITAMINS THERAPEUTIC TAB PO SCH (09:35)
[2018-10-11] MEDS: FAMOTIDINE 20 MG TAB NGT SCH (09:35)
[2018-10-11] MEDS: LEVETIRACETAM 500 MG TAB PO SCH ×2 (09:35→20:59)
[2018-10-11] MEDS: ASPIRIN 81 MG TAB NGT SCH (09:35)
[2018-10-11] MEDS: BALSAM PERU/CASTOR OIL 60 GM TUBE TOP SCH (09:36)
[2018-10-11] MEDS: MEROPENEM 500MG/50 ML (PMX) 50 ML IVPB SCH ×2 (09:41→20:58)
--- NOTE | 2018-10-11 09:56 | CONS ---
Consult Date/Type/Reason Admit Date/Time Oct 06, 2018 at 09:29 Initial Consult Date 10/06/18 Type of Consult Pulmonary Requesting Provider: MANUEL ALEMAN Date/Time of Note DATE: 10/11/18 TIME: 09:55 Subjective Patient remains somnolent on mechanical ventilation this morning. Tidal volume increased to adjust for tachypnea. Objective Vital Signs Date Temp Pulse Resp B/P (MAP) Pulse Ox O2 O2 Flow FiO2 Time Delivery Rate 10/11/18 116 28 111/67 100 06:15 (82) 10/11/18 Mechanical 06:00 Ventilator 10/11/18 30 05:33 10/11/18 98.9 04:00 Intake and Output 10/10/18 10/10/18 10/11/18 1515:00 23:00 07:00 IntakeIntake Total 785.5 ml 1139.50 ml 638.25 ml OutputOutput Total 320 ml 475 ml 450 ml BalanceBalance 465.5 ml 664.50 ml 188.25 ml Exam Elderly lady orally intubated on mechanical ventilation VITAL SIGNS: per chart NECK: Supple. No JVD or lymphadenopathy. CARDIAC EXAM: S1, S2. No added sounds or murmurs. CHEST: Diminished air entry bilaterally ABDOMEN: Soft, nontender. No guarding or rebound. EXTREMITIES: No cyanosis, clubbing or edema. NEUROLOGIC: Generalized weakness. No focal deficits. Vent Setting Ventilator Support Mode: AC, VC plus Fraction of Inspired Oxygen pe: 30 Positive End Expiratory Pressu: 5.0 Results/Medications Result Diagram: 10/11/18 0400 10/11/18 0400 Results 24 hrs Laboratory Tests Test 10/10/18 14:01 10/11/18 04:00 Prothrombin Time 14.8 14.7 Prothrombin Time Ratio 1.2 1.1 INR International Normalized Ratio 1.15 1.14 Activated Partial Thromboplast Time 58.7 H 37.7 H Valproic Acid (Depakene) Level 33 L 42 L White Blood Count 10.1 Red Blood Count 2.29 L Hemoglobin 7.3 L Hematocrit 21.2 L Mean Corpuscular Volume 92.6 Mean Corpuscular Hemoglobin 31.9 Mean Corpuscular Hemoglobin Concent 34.4 Red Cell Distribution Width 15.4 H Platelet Count 215 Mean Platelet Volume 12.2 H Immature Granulocytes % 7.300 H Neutrophils % Segmented Neutrophils % (Manual) 59 Band Neutrophils % (Manual) 13 H Lymphocytes % Lymphocytes % (Manual) 17 Reactive Lymphocytes % (Manual) 2 H Monocytes % Monocytes % (Manual) 6 Eosinophils % Basophils % Metamyelocytes % (manual) 2 H Myelocytes % (Manual) 1 H Nucleated Red Blood Cells % 0.0 Immature Granulocytes # 0.740 H Neutrophils # Neutrophils # (Manual) 6.1 Band Neutrophils # 1.3 H Lymphocytes (Manual) 1.7 Lymphocytes # Reactive Lymphocytes # 0.2 H Monocytes # Monocytes # (Manual) 0.6 Eosinophils # Basophils # Metamyelocytes # 0.2 H Myelocytes # 0.1 H Nucleated Red Blood Cells # Platelet Estimate NORMAL Hypochromasia 1+ Anisocytosis 2+ Macrocytosis 2+ Spherocytes 1+ Target Cells 1+ Sodium Level 143 Potassium Level 3.4 L Chloride Level 113 H Carbon Dioxide Level 18 L Anion Gap 12 Blood Urea Nitrogen 74 H Creatinine 2.03 H Est Glomerular Filtrat Rate mL/min 24 L Glucose Level 127 Calcium Level 8.7 Phosphorus Level 3.6 Magnesium Level 2.6 H Medications Current Medications IV Flush (NS 3 ml) 3 ml PER PROTOCOL IV ; Start 10/06/18 at 09:30 Ondansetron HCl (Zofran Inj) 4 mg Q6H PRN IV NAUSEA/VOMITING; Start 10/06/18 at 09:30 Acetaminophen (Tylenol Tab) 650 mg Q6H PRN PO .PAIN 1-3 OR TEMP Last administered on 10/09/18at 06:25; Admin Dose 650 MG; Start 10/06/18 at 09:30 Acetaminophen/ Hydrocodone Bitart ([place] (5/325)) 1 tab Q6H PRN PO .MOD PAIN 4- 6; Start 10/06/18 at 09:30 Morphine Sulfate (morphine) 2 mg Q4H PRN IV .SEVERE PAIN 7-10; Start 10/06/18 at 09:30 Docusate Sodium (Colace) 100 mg Q12H PRN PO .CONSTIPATION; Start 10/06/18 at 09:30 Magnesium Hydroxide (Milk Of Mag) 30 ml DAILY PRN PO .CONSTIPATION; Start 10/06/18 at 09:30 Lorazepam (Ativan) 0.5 mg Q6H PRN IV ANXIETY Last administered on 10/11/18at 03:27; Admin Dose 0.5 MG; Start 10/06/18 at 09:30 Albuterol/ Ipratropium (Duoneb) 3 ml Q4H RESP THERAPY PRN HHN SHORTNESS OF BREATH; Start 10/06/18 at 09:30 Nitroglycerin (Nitroglycerin (Sl Tab) 0.4 Mg) 1 tab Q5M PRN SL ANGINA; Start 10/06/18 at 09:30 Bisacodyl (Dulcolax) 10 mg DAILY PRN PO CONSTIPATION; Start 10/06/18 at 09:30 Donepezil HCl (Aricept) 5 mg QHS PO Last administered on 10/10/18 21:31; Admin Dose 5 MG; Start 10/06/18 at 21:00 Lactulose (Enulose) 20 gm TID PRN PO CONSTIPATION; Start 10/06/18 at 09:30 Levetiracetam (Keppra) 500 mg BID PO Last administered on 10/10/18 21:31; Admin Dose 500 MG; Start 10/06/18 at 21:00 Levothyroxine Sodium (Synthroid) 50 mcg BEFORE BREAKFAST PO Last administered on 10/10/18 09:32; Admin Dose 50 MCG; Start 10/07/18 at 07:00 Mineral Oil (Fleet Mineral Oil Enema) 133 ml DAILY PRN [place] CONSTIPATION; Start 10/06/18 at 09:30 Multivitamins Therapeutic (Theragran) 1 tab DAILY PO Last administered on 10/10/18 09:33; Admin Dose 1 TAB; Start 10/07/18 at 09:00 Norepinephrine 32 mg/Dextrose 250 ml @ 0.47 mls/hr TITRATE IV Last administered on 10/08/18 12:53; Admin Dose 4.69 MLS/HR; Start 10/06/18 at 11:30 Aspirin (Aspirin) 81 mg DAILY NGT Last administered on 10/10/18 09:33; Admin Dose 81 MG; Start 10/06/18 at 12:30 Heparin Sodium (Porcine) (Heparin (1000 Units/ml)) 4,000 unit PER PROTOCOL PRN IV aPTT<47; Start 10/06/18 at 12:30 Heparin Sodium (Porcine) 250 ml @ 8 mls/hr PER PROTOCOL IV Last administered on 10/10/18 07:05; Admin Dose 6 MLS/HR; Start 10/06/18 at 12:30 Atorvastatin Calcium (Lipitor) 40 mg DAILY@21 NGT Last administered on 10/10/18 21:31; Admin Dose 40 MG; Start 10/06/18 at 21:00 Miscellaneous Information (Flu Vaccine Previously Dispensed) FLU VACCINE PREVIOU... NOTE PRN XX NOTE; Start 10/06/18 at 18:00 Meropenem/Sodium Chloride 50 ml @ 100 mls/hr Q12 IVPB Last administered on 10/10/18 21:30; Admin Dose 100 MLS/HR; Start 10/07/18 at 12:00 Midazolam HCl 50 ml @ 0 mls/hr TITRATE IV Last administered on 10/09/18 22:21; Admin Dose 3 MLS/HR; Start 10/08/18 at 10:00 Linezolid 300 ml @ 300 mls/hr Q12 IVPB Last administered on 10/10/18 21:30; Admin Dose 300 MLS/HR; Start 10/08/18 at 12:30 Fentanyl 100 ml @ 2.5 mls/hr TITRATE IV Last administered on 10/10/18 01:01; Admin Dose 2.5 MLS/HR; Start 10/08/18 at 16:30 Lorazepam (Ativan) 1 mg Q6H PRN IV seizure; Start 10/08/18 at 16:00 Amiodarone HCl (Cordarone) 200 mg BID PO Last administered on 10/10/18 21:32; Admin Dose 200 MG; Start 10/09/18 at 21:00 Famotidine (Pepcid) 20 mg DAILY NGT Last administered on 10/10/18 09:33; Admin Dose 20 MG; Start 10/10/18 at 09:00 Phenylephrine HCl 250 ml @ 75 mls/hr TITRATE IV Last administered on 10/11/18 01:11; Admin Dose 7.5 MLS/HR; Start 10/09/18 at 13:00 Valproate Sodium 500 mg/Sodium Chloride 55 ml @ 55 mls/hr BID IVPB Last administered on 10/10/18 21:30; Admin Dose 55 MLS/HR; Start 10/10/18 at 21:00 Polyethylene Glycol (Miralax) 17 gm BID PRN PO constipation; Start 10/10/18 at 22:00 Potassium Chloride 50 ml @ 25 mls/hr Q2H IVPB Last administered on 10/11/18at 07:24; Admin Dose 25 MLS/HR; Start 10/11/18 at 08:00; Stop 10/11/18 at 11:59 Assessment/Plan Hospital Course (Demo Recall) IMP: 1. Septic Shock: likely due to urosepsis continues to require vasopressors. 2. Respiratory Failure 2/2 #1 3. UMBERTO-- pre-renal vs. ATN 2/2 #1 4. NSTEMI: type II 5. Afib with RVR--now in SR 6. Hypothyroidism 7. Encephalopathy toxic metabolic possible underlying history of dementia RECS: 1. Continue mechanical ventilation 2. Continue tube feeding as tolerated 3. Continue antibiotics, continue vasopressors will check random cortisol to exclude relative adrenal insufficiency. 4. Renal recommendations regarding renal insufficiency metabolic acidosis 5. Neuro recommendations regarding encephalopathy patient currently not able to liberate from mechanical ventilation, MRI brain. Continue current supportive care critical care time 40 minutes prognosis is gua PETER Wang MD, [facility] Oct 11, 2018 09:56
[2018-10-11] MEDS: VALPROATE INJ 500 MG in SOD CHLORIDE 0.9% 50 ML IVPB SCH (10:33)
--- NOTE | 2018-10-11 10:52 | CONS ---
Assessment/Plan Assessment/Plan Hospital Course (Demo Recall) IMP: 1. Nstemi- in setting of renal failure and shock. Slowly decreasing 2.Shock-on levo 3.Tachycardia-S tach at this time 4.UTI 5.PAF with RVR-now recurrent AF with mild RVR 6.Renal failure 7.Dyslipidemia 8.Sz d/o 9. Hypothyroid 10. anemia-slight worsening Recc: -ICU -wean pressors as tolerated. Now on clay -Follow rhythm and rate closely -Continue heparin and trend cardiac enzymes -Hold asa -Continue abx's and f/u cx data -Continue statin -Contineu po amiodarone BID s/p dose IVP digoxin Consultation Date/Type/Reason Admit Date/Time Oct 06, 2018 at 09:29 Initial Consult Date 10/06/18 Type of Consult Cardiology Reason for Consultation hypotension/PAF Requesting Provider: MANUEL ALEMAN Date/Time of Note DATE: 10/11/18 TIME: 10:44 Exam/Review of Systems Vital Signs Vitals Vital Signs Date Temp Pulse Resp B/P (MAP) Pulse Ox O2 O2 Flow FiO2 Time Delivery Rate 10/11/18 110 08:00 10/11/18 28 111/67 100 06:15 (82) 10/11/18 Mechanical 06:00 Ventilator 10/11/18 30 05:33 10/11/18 98.9 04:00 Intake and Output 10/10/18 10/10/18 10/11/18 1515:00 23:00 07:00 IntakeIntake Total 785.5 ml 1139.50 ml 638.25 ml OutputOutput Total 320 ml 475 ml 450 ml BalanceBalance 465.5 ml 664.50 ml 188.25 ml Exam Exam Review of Systems: CONSTITUTIONAL: No fevers, chills. PULMONARY: intubated CARDIOVASCULAR: No chest pain/palpitations GASTROINTESTINAL: No nausea/vomiting. GENITOURINARY: No hematuria/dysuria. MUSCULOSKELETAL: No myagias/arthalgias. PSYCHIATRIC: The patient denies depression. NEUROLOGIC: encephalopathy Constitutional: other (Encephalopathic) Psych: no complaints Head: normocephalic ENMT: mucosa pink and moist Neck: supple, jvd (9 cm water) Respiratory: diminished breath sounds Cardiovascular: regular rate and rhythm Gastrointestinal: soft, non-tender Musculoskeletal: muscle tone (normal) Extremities: edema (none) Neurological: other (Encephalopathic) Labs Result Diagram: 10/11/18 0400 10/11/18 0400 Results 24hrs Laboratory Tests Test 10/10/18 14:01 10/11/18 04:00 Prothrombin Time 14.8 14.7 Prothrombin Time Ratio 1.2 1.1 INR International Normalized Ratio 1.15 1.14 Activated Partial Thromboplast Time 58.7 H 37.7 H Valproic Acid (Depakene) Level 33 L 42 L White Blood Count 10.1 Red Blood Count 2.29 L Hemoglobin 7.3 L Hematocrit 21.2 L Mean Corpuscular Volume 92.6 Mean Corpuscular Hemoglobin 31.9 Mean Corpuscular Hemoglobin Concent 34.4 Red Cell Distribution Width 15.4 H Platelet Count 215 Mean Platelet Volume 12.2 H Immature Granulocytes % 7.300 H Neutrophils % Segmented Neutrophils % (Manual) 59 Band Neutrophils % (Manual) 13 H Lymphocytes % Lymphocytes % (Manual) 17 Reactive Lymphocytes % (Manual) 2 H Monocytes % Monocytes % (Manual) 6 Eosinophils % Basophils % Metamyelocytes % (manual) 2 H Myelocytes % (Manual) 1 H Nucleated Red Blood Cells % 0.0 Immature Granulocytes # 0.740 H Neutrophils # Neutrophils # (Manual) 6.1 Band Neutrophils # 1.3 H Lymphocytes (Manual) 1.7 Lymphocytes # Reactive Lymphocytes # 0.2 H Monocytes # Monocytes # (Manual) 0.6 Eosinophils # Basophils # Metamyelocytes # 0.2 H Myelocytes # 0.1 H Nucleated Red Blood Cells # Platelet Estimate NORMAL Hypochromasia 1+ Anisocytosis 2+ Macrocytosis 2+ Spherocytes 1+ Target Cells 1+ Sodium Level 143 Potassium Level 3.4 L Chloride Level 113 H Carbon Dioxide Level 18 L Anion Gap 12 Blood Urea Nitrogen 74 H Creatinine 2.03 H Est Glomerular Filtrat Rate mL/min 24 L Glucose Level 127 Calcium Level 8.7 Phosphorus Level 3.6 Magnesium Level 2.6 H Medications Medications Current Medications IV Flush (NS 3 ml) 3 ml PER PROTOCOL IV ; Start 10/06/18 at 09:30 Ondansetron HCl (Zofran Inj) 4 mg Q6H PRN IV NAUSEA/VOMITING; Start 10/06/18 at 09:30 Acetaminophen (Tylenol Tab) 650 mg Q6H PRN PO .PAIN 1-3 OR TEMP Last administered on 10/09/18at 06:25; Admin Dose 650 MG; Start 10/06/18 at 09:30 Acetaminophen/ Hydrocodone Bitart ([place] (5/325)) 1 tab Q6H PRN PO .MOD PAIN 4- 6; Start 10/06/18 at 09:30 Morphine Sulfate (morphine) 2 mg Q4H PRN IV .SEVERE PAIN 7-10; Start 10/06/18 at 09:30 Docusate Sodium (Colace) 100 mg Q12H PRN PO .CONSTIPATION; Start 10/06/18 at 09:30 Magnesium Hydroxide (Milk Of Mag) 30 ml DAILY PRN PO .CONSTIPATION; Start 10/06/18 at 09:30 Lorazepam (Ativan) 0.5 mg Q6H PRN IV ANXIETY Last administered on 10/11/18at 08:45; Admin Dose 0.5 MG; Start 10/06/18 at 09:30 Albuterol/ Ipratropium (Duoneb) 3 ml Q4H RESP THERAPY PRN HHN SHORTNESS OF BREATH; Start 10/06/18 at 09:30 Nitroglycerin (Nitroglycerin (Sl Tab) 0.4 Mg) 1 tab Q5M PRN SL ANGINA; Start 10/06/18 at 09:30 Bisacodyl (Dulcolax) 10 mg DAILY PRN PO CONSTIPATION; Start 10/06/18 at 09:30 Donepezil HCl (Aricept) 5 mg QHS PO Last administered on 10/10/18at 21:31; Admin Dose 5 MG; Start 10/06/18 at 21:00 Lactulose (Enulose) 20 gm TID PRN PO CONSTIPATION; Start 10/06/18 at 09:30 Levetiracetam (Keppra) 500 mg BID PO Last administered on 10/11/18at 09:35; Admin Dose 500 MG; Start 10/06/18 at 21:00 Levothyroxine Sodium (Synthroid) 50 mcg BEFORE BREAKFAST PO Last administered on 10/10/18at 09:32; Admin Dose 50 MCG; Start 10/07/18 at 07:00 Mineral Oil (Fleet Mineral Oil Enema) 133 ml DAILY PRN [place] CONSTIPATION; Start 10/06/18 at 09:30 Multivitamins Therapeutic (Theragran) 1 tab DAILY PO Last administered on 10/11/18 09:35; Admin Dose 1 TAB; Start 10/07/18 at 09:00 Norepinephrine 32 mg/Dextrose 250 ml @ 0.47 mls/hr TITRATE IV Last administered on 10/08/18 12:53; Admin Dose 4.69 MLS/HR; Start 10/06/18 at 11:30 Aspirin (Aspirin) 81 mg DAILY NGT Last administered on 10/11/18 09:35; Admin Dose 81 MG; Start 10/06/18 at 12:30 Heparin Sodium (Porcine) (Heparin (1000 Units/ml)) 4,000 unit PER PROTOCOL PRN IV aPTT<47; Start 10/06/18 at 12:30 Heparin Sodium (Porcine) 250 ml @ 8 mls/hr PER PROTOCOL IV Last administered on 10/10/18 07:05; Admin Dose 6 MLS/HR; Start 10/06/18 at 12:30 Atorvastatin Calcium (Lipitor) 40 mg DAILY@21 NGT Last administered on 10/10/18 21:31; Admin Dose 40 MG; Start 10/06/18 at 21:00 Miscellaneous Information (Flu Vaccine Previously Dispensed) FLU VACCINE PREVIOU... NOTE PRN XX NOTE; Start 10/06/18 at 18:00 Meropenem/Sodium Chloride 50 ml @ 100 mls/hr Q12 IVPB Last administered on 10/11/18 09:41; Admin Dose 100 MLS/HR; Start 10/07/18 at 12:00 Midazolam HCl 50 ml @ 0 mls/hr TITRATE IV Last administered on 10/09/18 22:21; Admin Dose 3 MLS/HR; Start 10/08/18 at 10:00 Linezolid 300 ml @ 300 mls/hr Q12 IVPB Last administered on 10/10/18 21:30; Admin Dose 300 MLS/HR; Start 10/08/18 at 12:30 Fentanyl 100 ml @ 2.5 mls/hr TITRATE IV Last administered on 10/10/18 01:01; Admin Dose 2.5 MLS/HR; Start 10/08/18 at 16:30 Lorazepam (Ativan) 1 mg Q6H PRN IV seizure; Start 10/08/18 at 16:00 Amiodarone HCl (Cordarone) 200 mg BID PO Last administered on 10/11/18 09:35; Admin Dose 200 MG; Start 10/09/18 at 21:00 Famotidine (Pepcid) 20 mg DAILY NGT Last administered on 10/11/18 09:35; Admin Dose 20 MG; Start 10/10/18 at 09:00 Phenylephrine HCl 250 ml @ 75 mls/hr TITRATE IV Last administered on 10/11/18 01:11; Admin Dose 7.5 MLS/HR; Start 10/09/18 at 13:00 Valproate Sodium 500 mg/Sodium Chloride 55 ml @ 55 mls/hr BID IVPB Last administered on 10/11/18 10:33; Admin Dose 55 MLS/HR; Start 10/10/18 at 21:00 Polyethylene Glycol (Miralax) 17 gm BID PRN PO constipation; Start 10/10/18 at 22:00 Potassium Chloride 50 ml @ 25 mls/hr Q2H IVPB Last administered on 10/11/18 10:21; Admin Dose 25 MLS/HR; Start 10/11/18 at 08:00; Stop 10/11/18 at 11:59 ANGELA CARY Oct 11, 2018 10:52
[2018-10-11] MEDS: LINEZOLID 600 MG/D5W (PMX) 300 ML IVPB SCH ×2 (11:49→20:58)
--- NOTE | 2018-10-11 13:46 | CONS ---
Assessment/Plan Assessment/Plan Hospital Course 67 F c/ dementia, epilepsy, and other comorbidities, who presents for management of cardiopulmonary Sx. She was noted to have a generalized convulsion on 10/08, for which neurology is consulted... Certainly her acute illness is lowering her seizure threshold.. CTH is without acute intracranial pathology EEG is notable for severe left hemispheric on diffuse slowing P: OK to continue asa for primary stroke prevention daily given her afib Increase maintenance depakote to 750 mg BID Cont Keppra 500 bid per ops given her poor renal function Ativan iv prn prolonged seizure or cluster Continued medical management per primary Will follow Consultation Date/Type/Reason Admit Date/Time Oct 06, 2018 at 09:29 Type of Consult Neurology Reason for Consultation seizure Requesting Provider: MANUEL ALEMAN Date/Time of Note DATE: 10/11/18 TIME: 13:46 24 HR Interval Summary Free Text/Dictation Continues critical care. Subjective hx not possible: pt non-verbal Exam Vital Signs Vitals Vital Signs Date Temp Pulse Resp B/P (MAP) Pulse Ox O2 O2 Flow FiO2 Time Delivery Rate 10/11/18 110 27 131/86 100 Mechanical 12:15 (101) Ventilator 10/11/18 98.7 12:00 10/11/18 30 05:33 Intake and Output 10/10/18 10/10/18 10/11/18 1414:59 22:59 06:59 IntakeIntake Total 754.5 ml 1038.25 ml 800.50 ml OutputOutput Total 405 ml 435 ml 530 ml BalanceBalance 349.5 ml 603.25 ml 270.50 ml Exam PE: Gen Appearance: No Apparent Distress HEENT: Intubated Cardiovascular: ST (100s) Abdomen: Soft Extremities: Dry NE: The patient was obtunded and nonverbal. Pt grimaced to noxious stimuli Cranial nerve examination was limited by mental status. Pupils were equal and reactive to light. There was no afferent pupillary defect. Funduscopic examination was limited. Face was grossly symmetric, w/ present corneal reflexes. Tone was normal. Muscle bulk was normal. I did not see fasciculations. The patient minimally withdrew UE; did not withdraw lowers to noxious stimulation. Coordination and gait testing was limited by mental status. Arm and leg reflexes were within normal limits and symmetric. Beck's sign was absent. Plantar responses were flexor. MIRANDA,CHEYENNE GERIATRIC NURSE Oct 11, 2018 13:46 FROYLAN WOOD Oct 11, 2018 15:23
--- NOTE | 2018-10-11 14:48 | PN ---
Date/Time of Note Date/Time of Note DATE: 10/11/18 TIME: 14:45 Assessment/Plan VTE Prophylaxis Risk score (from Ns)>0 risk: 9 SCD applied (from [facility] [place]): Yes Pharmacological prophylaxis: heparin Lines/Catheters IV Catheter Type (from [facility] Central Line Central line still needed: Yes Urinary Cath still in place: Yes Reason Cath still needed: other (indicate) (intubated) Assessment/Plan Assessment/Plan A 67-year-old female coming in with signs of septic shock, likely secondary to urinary tract infection and pneumonia, elevated troponins, acute renal insufficiency, now intubated on pressor support. Also, with atrial fibrillation with rapid ventricular response, now in normal sinus rhythm. #Septic shock - Dr. Sanford following. - Likely due to UTI. - Urine cultures and Blood cultures growing E Coli x2. - Continue IV fluids and pressor support. Try to wean off as tolerated. - Tylenol p.r.n. pain and fevers. #Seizure - Continue keppra - Morning of 10/08 had whole body twitching concerning for seizures; got Ativan then Versed. - EEG appears to have localized lesion but CT head is negative. Neuro following. - Will hold versed. - Pursue MRI after patient is hemodynamically stable off pressors and minimal vent settings. # NSTEMI - Unclear if this is true non-ST elevation myocardial infarction versus demand ischemia. - Continue high dose aspirin. - She is also on Lipitor. - Heparin gtt per cardiology. - Dr. Mello consulted. #A fib with RVR, paroxysmal - Dr. Mello following - Converted to normal sinus after getting Cardizem in ED - Now on amiodarone gtt and digoxin - Back in A fib. # Renal insufficiency - improving - Dr. Davila consulted - Not anuric # Hypothyroidism - Continue current thyroid medicines. - Low TSH, normal fT4 consistent with sick euthyroid syndrome. # History of dementia. Continue Aricept for now. # History of high cholesterol. - Cont statin # Gastrointestinal prophylaxis. Add H2 panda. # Deep venous thrombosis prophylaxis. She is on heparin drip. Result Diagram: 10/11/18 1204 10/11/18 0400 Subjective 24 Hr Interval Summary Free Text/Dictation No acute overnight events. Patient off sedation but grimacing on vent, uncomfortable appearing; intermittently requiring ativan. BP gradually increasing; weaning off phenylephrine. Exam/Review of Systems Exam Vitals Vital Signs Date Temp Pulse Resp B/P (MAP) Pulse Ox O2 O2 Flow FiO2 Time Delivery Rate 10/11/18 110 27 131/86 100 Mechanical 12:15 (101) Ventilator 10/11/18 98.7 12:00 10/11/18 30 05:33 Intake and Output 10/10/18 10/10/18 10/11/18 1414:59 22:59 06:59 IntakeIntake Total 754.5 ml 1038.25 ml 800.50 ml OutputOutput Total 405 ml 435 ml 530 ml BalanceBalance 349.5 ml 603.25 ml 270.50 ml Exam GENERAL: Well developed woman lying in bed, intubated, sedated HEENT: Pupils dilated bilaterally, unresponsive to light. Moist mucous membranes, ET tube in place. NECK: Supple, no thyromegaly. LUNGS: Mechanical breath sounds equal bilaterally. CARDIOVASCULAR: S1, S2 heard. No rubs or gallops. ABDOMEN: Soft, nontender, nondistended. Normal bowel sounds. No rebound or guarding. MUSCULOSKELETAL: No lower extremity edema bilaterally. Results Results 24hrs Laboratory Tests Test 10/11/18 04:00 10/11/18 12:04 White Blood Count 10.1 Red Blood Count 2.29 L Hemoglobin 7.3 L 8.2 L Hematocrit 21.2 L 23.2 L Mean Corpuscular Volume 92.6 Mean Corpuscular Hemoglobin 31.9 Mean Corpuscular Hemoglobin Concent 34.4 Red Cell Distribution Width 15.4 H Platelet Count 215 Mean Platelet Volume 12.2 H Immature Granulocytes % 7.300 H Neutrophils % Segmented Neutrophils % (Manual) 59 Band Neutrophils % (Manual) 13 H Lymphocytes % Lymphocytes % (Manual) 17 Reactive Lymphocytes % (Manual) 2 H Monocytes % Monocytes % (Manual) 6 Eosinophils % Basophils % Metamyelocytes % (manual) 2 H Myelocytes % (Manual) 1 H Nucleated Red Blood Cells % 0.0 Immature Granulocytes # 0.740 H Neutrophils # Neutrophils # (Manual) 6.1 Band Neutrophils # 1.3 H Lymphocytes (Manual) 1.7 Lymphocytes # Reactive Lymphocytes # 0.2 H Monocytes # Monocytes # (Manual) 0.6 Eosinophils # Basophils # Metamyelocytes # 0.2 H Myelocytes # 0.1 H Nucleated Red Blood Cells # Platelet Estimate NORMAL Hypochromasia 1+ Anisocytosis 2+ Macrocytosis 2+ Spherocytes 1+ Target Cells 1+ Prothrombin Time 14.7 Prothrombin Time Ratio 1.1 INR International Normalized Ratio 1.14 Activated Partial Thromboplast Time 37.7 H 54.5 H Sodium Level 143 Potassium Level 3.4 L Chloride Level 113 H Carbon Dioxide Level 18 L Anion Gap 12 Blood Urea Nitrogen 74 H Creatinine 2.03 H Est Glomerular Filtrat Rate mL/min 24 L Glucose Level 127 Calcium Level 8.7 Phosphorus Level 3.6 Magnesium Level 2.6 H Valproic Acid (Depakene) Level 42 L Medications Medication Current Medications IV Flush (NS 3 ml) 3 ml PER PROTOCOL IV ; Start 10/06/18 at 09:30 Ondansetron HCl (Zofran Inj) 4 mg Q6H PRN IV NAUSEA/VOMITING; Start 10/06/18 at 09:30 Acetaminophen (Tylenol Tab) 650 mg Q6H PRN PO .PAIN 1-3 OR TEMP Last administered on 10/09/18at 06:25; Admin Dose 650 MG; Start 10/06/18 at 09:30 Acetaminophen/ Hydrocodone Bitart ([place] (5/325)) 1 tab Q6H PRN PO .MOD PAIN 4- 6; Start 10/06/18 at 09:30 Morphine Sulfate (morphine) 2 mg Q4H PRN IV .SEVERE PAIN 7-10; Start 10/06/18 at 09:30 Docusate Sodium (Colace) 100 mg Q12H PRN PO .CONSTIPATION; Start 10/06/18 at 09:30 Magnesium Hydroxide (Milk Of Mag) 30 ml DAILY PRN PO .CONSTIPATION; Start 10/06/18 at 09:30 Lorazepam (Ativan) 0.5 mg Q6H PRN IV ANXIETY Last administered on 10/11/18at 08:45; Admin Dose 0.5 MG; Start 10/06/18 at 09:30 Albuterol/ Ipratropium (Duoneb) 3 ml Q4H RESP THERAPY PRN HHN SHORTNESS OF BREATH; Start 10/06/18 at 09:30 Nitroglycerin (Nitroglycerin (Sl Tab) 0.4 Mg) 1 tab Q5M PRN SL ANGINA; Start 10/06/18 at 09:30 Bisacodyl (Dulcolax) 10 mg DAILY PRN PO CONSTIPATION; Start 10/06/18 at 09:30 Donepezil HCl (Aricept) 5 mg QHS PO Last administered on 10/10/18 21:31; Admin Dose 5 MG; Start 10/06/18 at 21:00 Lactulose (Enulose) 20 gm TID PRN PO CONSTIPATION; Start 10/06/18 at 09:30 Levetiracetam (Keppra) 500 mg BID PO Last administered on 10/11/18 09:35; Admin Dose 500 MG; Start 10/06/18 at 21:00 Levothyroxine Sodium (Synthroid) 50 mcg BEFORE BREAKFAST PO Last administered on 10/10/18 09:32; Admin Dose 50 MCG; Start 10/07/18 at 07:00 Mineral Oil (Fleet Mineral Oil Enema) 133 ml DAILY PRN [place] CONSTIPATION; Start 10/06/18 at 09:30 Multivitamins Therapeutic (Theragran) 1 tab DAILY PO Last administered on 10/11/18 09:35; Admin Dose 1 TAB; Start 10/07/18 at 09:00 Norepinephrine 32 mg/Dextrose 250 ml @ 0.47 mls/hr TITRATE IV Last administered on 10/08/18 12:53; Admin Dose 4.69 MLS/HR; Start 10/06/18 at 11:30 Aspirin (Aspirin) 81 mg DAILY NGT Last administered on 10/11/18 09:35; Admin Dose 81 MG; Start 10/06/18 at 12:30; Status Hold Heparin Sodium (Porcine) (Heparin (1000 Units/ml)) 4,000 unit PER PROTOCOL PRN IV aPTT<47; Start 10/06/18 at 12:30 Heparin Sodium (Porcine) 250 ml @ 8 mls/hr PER PROTOCOL IV Last administered on 10/10/18 07:05; Admin Dose 6 MLS/HR; Start 10/06/18 at 12:30 Atorvastatin Calcium (Lipitor) 40 mg DAILY@21 NGT Last administered on 10/10/18 21:31; Admin Dose 40 MG; Start 10/06/18 at 21:00 Miscellaneous Information (Flu Vaccine Previously Dispensed) FLU VACCINE PREVIOU... NOTE PRN XX NOTE; Start 10/06/18 at 18:00 Meropenem/Sodium Chloride 50 ml @ 100 mls/hr Q12 IVPB Last administered on 10/11 09:41; Admin Dose 100 MLS/HR; Start 10/07/18 at 12:00 Midazolam HCl 50 ml @ 0 mls/hr TITRATE IV Last administered on 10/09/18 22:21; Admin Dose 3 MLS/HR; Start 10/08/18 at 10:00 Linezolid 300 ml @ 300 mls/hr Q12 IVPB Last administered on 10/11/18 11:49; Admin Dose 300 MLS/HR; Start 10/08/18 at 12:30 Fentanyl 100 ml @ 2.5 mls/hr TITRATE IV Last administered on 10/10/18 01:01; Admin Dose 2.5 MLS/HR; Start 10/08/18 at 16:30 Lorazepam (Ativan) 1 mg Q6H PRN IV seizure; Start 10/08/18 at 16:00 Amiodarone HCl (Cordarone) 200 mg BID PO Last administered on 10/11/18 09:35; Admin Dose 200 MG; Start 10/09/18 at 21:00 Famotidine (Pepcid) 20 mg DAILY NGT Last administered on 10/11/18 09:35; Admin Dose 20 MG; Start 10/10/18 at 09:00 Phenylephrine HCl 250 ml @ 75 mls/hr TITRATE IV Last administered on 10/11/18 01:11; Admin Dose 7.5 MLS/HR; Start 10/09/18 at 13:00 Polyethylene Glycol (Miralax) 17 gm BID PRN PO constipation; Start 10/10/18 at 22:00 Valproate Sodium 750 mg/Sodium Chloride 57.5 ml @ 57.5 mls/hr BID IVPB ; Start 10/11/18 at 21:00 ANGELA MOSQUERA MD Oct 11, 2018 14:48
[2018-10-11] MEDS: HEPARIN 25000 UNITS/250 ML 250 ML IV SCH (15:33)
--- NOTE | 2018-10-11 15:55 | CONS ---
Assessment/Plan Assessment/Plan Hospital Course (Demo Recall) No events overnight patient remains on Rafita-Synephrine drip afebrile with a T-max of 100.3 yesterday. WBC today 10.1 H&H 7.3 and 21.2 platelets 215 bands 13 BUN 74 creatinine 2.03 Microbiology: Blood and urine cultures growing E. coli Chest x-ray this morning revealed increased right basilar infiltrate concerning for pneumonia Indwelling: Endotracheal tube NG tube Piña catheter right IJ triple-lumen catheter Diagnostic: Chest x-ray this morning revealed no evidence of acute cardiopu lmonary disease Allergy: Penicillin, clindamycin Antibiotics: Merrem Zyvox Physical examination: Well-developed chronically ill-appearing elderly woman. The patient is in no distress. Head atraumatic normocephalic. Neck is supple. Chest rise symmetrical, breath sounds diminished bases. Heart: S1-S2, tachycardic, irregular. Abdomen soft bowel sounds hypoactive. Extremities mottled cyanotic Assessment: 1. Severe sepsis with shock 2. E coli bacteremia secondary to urinary tract infection 3. Acute hypoxemic respiratory failure 4. Healthcare associated pneumonia, possibly aspiration 4. Acute possibly on chronic kidney disease 5. Non-ST elevation OR 6. Atrial fibrillation with RVR Plan: Patient remains hemodynamically unstable, on appropriate antibiotic regimen, WBC trending down, renal f-n improving, repeat blood cultures negative. Continue present care Consultation Date/Type/Reason Admit Date/Time Oct 06, 2018 at 09:29 Initial Consult Date 10/06/18 Type of Consult id Requesting Provider: MANUEL ALEMAN Date/Time of Note DATE: 10/11/18 TIME: 15:49 Exam/Review of Systems Exam Vitals Vital Signs Date Temp Pulse Resp B/P (MAP) Pulse Ox O2 O2 Flow FiO2 Time Delivery Rate 10/11/18 110 27 131/86 100 Mechanical 12:15 (101) Ventilator 10/11/18 98.7 12:00 10/11/18 30 05:33 Intake and Output 10/10/18 10/10/18 10/11/18 1414:59 22:59 06:59 IntakeIntake Total 754.5 ml 1038.25 ml 800.50 ml OutputOutput Total 405 ml 435 ml 530 ml BalanceBalance 349.5 ml 603.25 ml 270.50 ml Results Result Diagram: 10/11/18 1204 10/11/18 0400 Results 24hrs Laboratory Tests Test 10/11/18 04:00 10/11/18 12:04 White Blood Count 10.1 Red Blood Count 2.29 L Hemoglobin 7.3 L 8.2 L Hematocrit 21.2 L 23.2 L Mean Corpuscular Volume 92.6 Mean Corpuscular Hemoglobin 31.9 Mean Corpuscular Hemoglobin Concent 34.4 Red Cell Distribution Width 15.4 H Platelet Count 215 Mean Platelet Volume 12.2 H Immature Granulocytes % 7.300 H Neutrophils % Segmented Neutrophils % (Manual) 59 Band Neutrophils % (Manual) 13 H Lymphocytes % Lymphocytes % (Manual) 17 Reactive Lymphocytes % (Manual) 2 H Monocytes % Monocytes % (Manual) 6 Eosinophils % Basophils % Metamyelocytes % (manual) 2 H Myelocytes % (Manual) 1 H Nucleated Red Blood Cells % 0.0 Immature Granulocytes # 0.740 H Neutrophils # Neutrophils # (Manual) 6.1 Band Neutrophils # 1.3 H Lymphocytes (Manual) 1.7 Lymphocytes # Reactive Lymphocytes # 0.2 H Monocytes # Monocytes # (Manual) 0.6 Eosinophils # Basophils # Metamyelocytes # 0.2 H Myelocytes # 0.1 H Nucleated Red Blood Cells # Platelet Estimate NORMAL Hypochromasia 1+ Anisocytosis 2+ Macrocytosis 2+ Spherocytes 1+ Target Cells 1+ Prothrombin Time 14.7 Prothrombin Time Ratio 1.1 INR International Normalized Ratio 1.14 Activated Partial Thromboplast Time 37.7 H 54.5 H Sodium Level 143 Potassium Level 3.4 L Chloride Level 113 H Carbon Dioxide Level 18 L Anion Gap 12 Blood Urea Nitrogen 74 H Creatinine 2.03 H Est Glomerular Filtrat Rate mL/min 24 L Glucose Level 127 Calcium Level 8.7 Phosphorus Level 3.6 Magnesium Level 2.6 H Valproic Acid (Depakene) Level 42 L Medications Medication Current Medications IV Flush (NS 3 ml) 3 ml PER PROTOCOL IV ; Start 10/06/18 at 09:30 Ondansetron HCl (Zofran Inj) 4 mg Q6H PRN IV NAUSEA/VOMITING; Start 10/06/18 at 09:30 Acetaminophen (Tylenol Tab) 650 mg Q6H PRN PO .PAIN 1-3 OR TEMP Last administered on 10/09/18at 06:25; Admin Dose 650 MG; Start 10/06/18 at 09:30 Acetaminophen/ Hydrocodone Bitart ([place] (5/325)) 1 tab Q6H PRN PO .MOD PAIN 4- 6; Start 10/06/18 at 09:30 Morphine Sulfate (morphine) 2 mg Q4H PRN IV .SEVERE PAIN 7-10; Start 10/06/18 at 09:30 Docusate Sodium (Colace) 100 mg Q12H PRN PO .CONSTIPATION; Start 10/06/18 at 09:30 Magnesium Hydroxide (Milk Of Mag) 30 ml DAILY PRN PO .CONSTIPATION; Start 10/06/18 at 09:30 Lorazepam (Ativan) 0.5 mg Q6H PRN IV ANXIETY Last administered on 10/11/18at 08:45; Admin Dose 0.5 MG; Start 10/06/18 at 09:30 Albuterol/ Ipratropium (Duoneb) 3 ml Q4H RESP THERAPY PRN HHN SHORTNESS OF BREATH; Start 10/06/18 at 09:30 Nitroglycerin (Nitroglycerin (Sl Tab) 0.4 Mg) 1 tab Q5M PRN SL ANGINA; Start 10/06/18 at 09:30 Bisacodyl (Dulcolax) 10 mg DAILY PRN PO CONSTIPATION; Start 10/06/18 at 09:30 Donepezil HCl (Aricept) 5 mg QHS PO Last administered on 10/10/18at 21:31; Admin Dose 5 MG; Start 10/06/18 at 21:00 Lactulose (Enulose) 20 gm TID PRN PO CONSTIPATION; Start 10/06/18 at 09:30 Levetiracetam (Keppra) 500 mg BID PO Last administered on 10/11/18at 09:35; Admin Dose 500 MG; Start 10/06/18 at 21:00 Levothyroxine Sodium (Synthroid) 50 mcg BEFORE BREAKFAST PO Last administered on 10/10/18at 09:32; Admin Dose 50 MCG; Start 10/07/18 at 07:00 Mineral Oil (Fleet Mineral Oil Enema) 133 ml DAILY PRN [place] CONSTIPATION; Start 10/06/18 at 09:30 Multivitamins Therapeutic (Theragran) 1 tab DAILY PO Last administered on 10/11/18at 09:35; Admin Dose 1 TAB; Start 10/07/18 at 09:00 Norepinephrine 32 mg/Dextrose 250 ml @ 0.47 mls/hr TITRATE IV Last administered on 10/08/18 12:53; Admin Dose 4.69 MLS/HR; Start 10/06/18 at 11:30 Aspirin (Aspirin) 81 mg DAILY NGT Last administered on 10/11/18 09:35; Admin Dose 81 MG; Start 10/06/18 at 12:30; Status Hold Heparin Sodium (Porcine) (Heparin (1000 Units/ml)) 4,000 unit PER PROTOCOL PRN IV aPTT<47; Start 10/06/18 at 12:30 Heparin Sodium (Porcine) 250 ml @ 8 mls/hr PER PROTOCOL IV Last administered on 10/11/18 15:33; Admin Dose 10 MLS/HR; Start 10/06/18 at 12:30 Atorvastatin Calcium (Lipitor) 40 mg DAILY@21 NGT Last administered on 10/10/18 21:31; Admin Dose 40 MG; Start 10/06/18 at 21:00 Miscellaneous Information (Flu Vaccine Previously Dispensed) FLU VACCINE PREVIOU... NOTE PRN XX NOTE; Start 10/06/18 at 18:00 Meropenem/Sodium Chloride 50 ml @ 100 mls/hr Q12 IVPB Last administered on 10/11/18 09:41; Admin Dose 100 MLS/HR; Start 10/07/18 at 12:00 Midazolam HCl 50 ml @ 0 mls/hr TITRATE IV Last administered on 10/09/18 22:21; Admin Dose 3 MLS/HR; Start 10/08/18 at 10:00 Linezolid 300 ml @ 300 mls/hr Q12 IVPB Last administered on 10/11/18 11:49; Admin Dose 300 MLS/HR; Start 10/08/18 at 12:30 Fentanyl 100 ml @ 2.5 mls/hr TITRATE IV Last administered on 10/10/18 01:01; Admin Dose 2.5 MLS/HR; Start 10/08/18 at 16:30 Lorazepam (Ativan) 1 mg Q6H PRN IV seizure Last administered on 10/11/18 15:22; Admin Dose 1 MG; Start 10/08/18 at 16:00 Amiodarone HCl (Cordarone) 200 mg BID PO Last administered on 10/11/18 09:35; Admin Dose 200 MG; Start 10/09/18 at 21:00 Famotidine (Pepcid) 20 mg DAILY NGT Last administered on 10/11/18 09:35; Admin Dose 20 MG; Start 10/10/18 at 09:00 Phenylephrine HCl 250 ml @ 75 mls/hr TITRATE IV Last administered on 10/11/18at 01:11; Admin Dose 7.5 MLS/HR; Start 10/09/18 at 13:00 Polyethylene Glycol (Miralax) 17 gm BID PRN PO constipation; Start 10/10/18 at 22:00 Valproate Sodium 750 mg/Sodium Chloride 57.5 ml @ 57.5 mls/hr BID IVPB ; Start 10/11/18 at 21:00; Stop 10/12/18 at 02:00 Valproate Sodium (Depakene Liquid Cup) 750 mg BID NGT ; Start 10/12/18 at 09:00 MARKOS BRADY NP Oct 11, 2018 15:55
[2018-10-11] MEDS ORDERED: VALPROATE INJ 750 MG in SOD CHLORIDE 0.9% 50 ML IVPB ONE (18:00)
[2018-10-11] MEDS: ATORVASTATIN 40 MG TAB NGT SCH (20:59)
[2018-10-11] MEDS: DONEPEZIL 5 MG TAB PO SCH (20:59)
[2018-10-11] MEDS ORDERED: VALPROIC ACID LIQUID CUP 250 MG/5 ML CUP GTB SCH (21:00)
[2018-10-11] MEDS ORDERED: VALPROATE INJ 750 MG in SOD CHLORIDE 0.9% 50 ML IVPB SCH (21:00)
[2018-10-12] VITALS (56 sets, daily range): BP systolic 79–136; BP diastolic 47–124; PULSE 84–143; RESP 18–37
[2018-10-12] MEDS: LORAZEPAM 2 MG INJ IV PRN ×3 (00:26→11:35)
[2018-10-12] MEDS: PHENYLephrine 20MG IN 250 ML 250 ML IV SCH (01:38)
[2018-10-12] MEDS: LEVOTHYROXINE 50 MCG TAB PO SCH (06:08)
[2018-10-12] MEDS: AMIODARONE 200 MG TAB PO SCH ×2 (08:11→20:25)
[2018-10-12] MEDS: FAMOTIDINE 20 MG TAB NGT SCH (08:11)
[2018-10-12] MEDS: LEVETIRACETAM 500 MG TAB PO SCH (08:11)
[2018-10-12] MEDS: MULTIVITAMINS THERAPEUTIC TAB PO SCH (08:11)
[2018-10-12] MEDS: LINEZOLID 600 MG/D5W (PMX) 300 ML IVPB SCH ×2 (08:12→20:25)
[2018-10-12] MEDS: MEROPENEM 500MG/50 ML (PMX) 50 ML IVPB SCH ×2 (08:12→20:26)
[2018-10-12] MEDS: BALSAM PERU/CASTOR OIL 60 GM TUBE TOP SCH (08:14)
[2018-10-12] MEDS: ACETAMINOPHEN 325 MG TAB PO PRN (08:27)
[2018-10-12] MEDS ORDERED: VALPROATE INJ 750 MG in SOD CHLORIDE 0.9% 50 ML IVPB ONE (08:30)
[2018-10-12] MEDS ORDERED: VALPROIC ACID LIQUID CUP 250 MG/5 ML CUP NGT SCH (09:00)
[2018-10-12] MEDS ORDERED: DIGOXIN 500 MCG INJ IV ONE ×3 (11:23→17:30)
--- NOTE | 2018-10-12 11:23 | CONS ---
Assessment/Plan Assessment/Plan Assessment/Plan (Daily) - Hyperamnesia - monitor am Mag level - Hypernatremia - D5W at 50 cc x 2 Liters 1. Non Oliguric Acute kidney injury due to ATN from septic shock 2. Septic shock due to UTI 3. acute UTI with Urine Cx growing E.Coli 4. Acute hypoxic respiratory failure intubated on ventilator 5. H/o HTN 6 H/o HL 7. H/o Hypothyroidism 8. Bacteremia with blood cx 2/2 growing E.Coli 9. Tachycardia- Cardio follows; Digoxin, Amiodarone gtt, Heparin gtt Plan: pt remains intubated - BUN/Cr improved to 64/1.53 - urine output 1.7 liter in last 24 hr -HCo3 18- - no acute indication of HD at this time -Id following , IV abx for UTI and bacteremia , Renally dose all abx and monitor electrolytes -ventilator management as per Pulmonary will follow up Critical care time spent is 35 minutes. Further recommendations based on clinical course.Patient seen in collaboration with Dr Joni Davila Consultation Date/Type/Reason Admit Date/Time Oct 06, 2018 at 09:29 Initial Consult Date 10/06/18 Type of Consult NEPHROLOGY Requesting Provider: MANUEL ALEMAN Date/Time of Note DATE: 10/12/18 TIME: 11:17 24 HR Interval Summary Free Text/Dictation -NAD - intubated on vent - on pressors; Amiodarone; Heparin gtt - Mag , Na elevated - UO 1.7 L/24 hrs - no new issues reported last night Subjective hx not possible: pt non-verbal Constitutional: requiring IVF, requiring O2 Exam/Review of Systems Exam Vitals Vital Signs Date Temp Pulse Resp B/P (MAP) Pulse Ox O2 O2 Flow FiO2 Time Delivery Rate 10/12/18 141 37 93/62 (72) 100 11:00 10/12/18 30 10:07 10/12/18 99.8 Mechanical 08:00 Ventilator Intake and Output 10/11/18 10/11/18 10/12/18 1515:00 23:00 07:00 IntakeIntake Total 1266.75 ml 1078.5 ml 645.5 ml OutputOutput Total 745 ml 610 ml 445 ml BalanceBalance 521.75 ml 468.5 ml 200.5 ml Constitutional: non-verbal, frail Psych: nl mood/affect Eyes: nl lids, nl sclera ENMT: nl external ears & nose Respiratory: diminished breath sounds Cardiovascular: nl pulses, other (s1s2) Gastrointestinal: soft Musculoskeletal: muscle weakness Extremities: normal pulses Neurological: unresponsive Skin: other (decubs) Results Result Diagram: 10/12/18 0436 10/12/18 0436 Results 24hrs Laboratory Tests Test 10/11/18 12:04 10/11/18 19:23 10/11/18 22:30 10/12/18 01:47 Hemoglobin 8.2 L Hematocrit 23.2 L Activated 54.5 H 64.2 H 61.[address] Time Prothrombin Time 14.3 Prothrombin Time 1.1 Ratio INR International 1.10 Normalized Ratio Blood Gas Specimen Blood arterial Source Arterial Blood 10/11/2018 10:20:54 Date Drawn PM Arterial Blood pH 7.446 (Temp corrected) Arterial Blood 22.6 L pCO2 (Temp correct) Arterial Blood pO2 141.5 H (Temp corrected) Arterial Blood 15.2 L HCO3 Arterial Blood -7.5 L Base Excess Arterial Blood 98.5 H Oxygen Saturation Greg Test ACCEPTAB Arterial Blood Gas Right Radial Puncture Site Arterial 0.3 Blood Carboxyhemog lobin Arterial Blood 0.3 Methemoglobin Blood Gas A-a O2 45.8 H Differential Oxyhemoglobin 97.9 Percent Blood Gas 37.0 Temperature Blood Gas 20.0 Respiration Rate Blood Gas Actual 20 Respiration Rate Blood Gas Modality VENT - AC FiO2 30.0 Blood Gas Tidal 550.0 Volume Blood Gas Low PEEP 5.0 Setting Blood Gas 32.0 Inspiratory Pressure Blood Gas Notified KAYE LE Whom Blood Gas Notified 10/11/2018 10:32:14 Time PM Test 10/12/18 04:36 White Blood Count 12.9 #H Red Blood Count 2.47 L Hemoglobin 7.9 L Hematocrit 23.2 L Mean Corpuscular 93.9 Volume Mean Corpuscular 32.0 Hemoglobin Mean Corpuscular 34.1 Hemoglobin Concent Red Cell 15.4 H Distribution Width Platelet Count 281 # Mean Platelet 12.1 H Volume Immature 6.600 H Granulocytes % Neutrophils % Segmented 65 Neutrophils % (Manual) Band Neutrophils % 17 H (Manual) Lymphocytes % Lymphocytes % 13 L (Manual) Monocytes % Monocytes % 4 (Manual) Eosinophils % Basophils % Metamyelocytes % 1 H (manual) Nucleated Red 0.0 Blood Cells % Immature 0.850 H Granulocytes # Neutrophils # Neutrophils # 8.7 H (Manual) Band Neutrophils # 2.1 H Lymphocytes 1.6 (Manual) Lymphocytes # Monocytes # Monocytes # 0.5 (Manual) Eosinophils # Basophils # Metamyelocytes # 0.1 H Nucleated Red Blood Cells # Platelet Estimate NORMAL Polychromasia 1+ Hypochromasia 1+ Anisocytosis 2+ Macrocytosis 2+ Target Cells 1+ Ovalocytes 2+ Sodium Level 145 H Potassium Level 3.9 Chloride Level 117 H Carbon Dioxide 18 L Level Anion Gap 10 Blood Urea 64 H Nitrogen Creatinine 1.53 H Est Glomerular 34 L Filtrat Rate mL/min Glucose Level 112 Calcium Level 9.1 Valproic Acid 40 L (Depakene) Level Medications Medication Current Medications IV Flush (NS 3 ml) 3 ml PER PROTOCOL IV ; Start 10/06/18 at 09:30 Ondansetron HCl (Zofran Inj) 4 mg Q6H PRN IV NAUSEA/VOMITING; Start 10/06/18 at 09:30 Acetaminophen (Tylenol Tab) 650 mg Q6H PRN PO .PAIN 1-3 OR TEMP Last administered on 10/12/18at 08:27; Admin Dose 650 MG; Start 10/06/18 at 09:30 Acetaminophen/ Hydrocodone Bitart ([place] (5/325)) 1 tab Q6H PRN PO .MOD PAIN 4- 6; Start 10/06/18 at 09:30 Morphine Sulfate (morphine) 2 mg Q4H PRN IV .SEVERE PAIN 7-10; Start 10/06/18 at 09:30 Docusate Sodium (Colace) 100 mg Q12H PRN PO .CONSTIPATION; Start 10/06/18 at 09:30 Magnesium Hydroxide (Milk Of Mag) 30 ml DAILY PRN PO .CONSTIPATION; Start 10/06/18 at 09:30 Lorazepam (Ativan) 0.5 mg Q6H PRN IV ANXIETY Last administered on 10/12/18at 06:08; Admin Dose 0.5 MG; Start 10/06/18 at 09:30 Albuterol/ Ipratropium (Duoneb) 3 ml Q4H RESP THERAPY PRN HHN SHORTNESS OF BREATH; Start 10/06/18 at 09:30 Nitroglycerin (Nitroglycerin (Sl Tab) 0.4 Mg) 1 tab Q5M PRN SL ANGINA; Start 10/06/18 at 09:30 Bisacodyl (Dulcolax) 10 mg DAILY PRN PO CONSTIPATION; Start 10/06/18 at 09:30 Donepezil HCl (Aricept) 5 mg QHS PO Last administered on 10/11/18 20:59; Admin Dose 5 MG; Start 10/06/18 at 21:00 Lactulose (Enulose) 20 gm TID PRN PO CONSTIPATION; Start 10/06/18 at 09:30 Levetiracetam (Keppra) 500 mg BID PO Last administered on 10/12/18 08:11; Admin Dose 500 MG; Start 10/06/18 at 21:00 Levothyroxine Sodium (Synthroid) 50 mcg BEFORE BREAKFAST PO Last administered on 10/12/18 06:08; Admin Dose 50 MCG; Start 10/07/18 at 07:00 Mineral Oil (Fleet Mineral Oil Enema) 133 ml DAILY PRN [place] CONSTIPATION; Start 10/06/18 at 09:30 Multivitamins Therapeutic (Theragran) 1 tab DAILY PO Last administered on 10/12/18 08:11; Admin Dose 1 TAB; Start 10/07/18 at 09:00 Norepinephrine 32 mg/Dextrose 250 ml @ 0.47 mls/hr TITRATE IV Last admini stered on 10/08/18 12:53; Admin Dose 4.69 MLS/HR; Start 10/06/18 at 11:30 Aspirin (Aspirin) 81 mg DAILY NGT Last administered on 10/11/18 09:35; Admin Dose 81 MG; Start 10/06/18 at 12:30; Status Hold Heparin Sodium (Porcine) (Heparin (1000 Units/ml)) 4,000 unit PER PROTOCOL PRN IV aPTT<47; Start 10/06/18 at 12:30 Heparin Sodium (Porcine) 250 ml @ 8 mls/hr PER PROTOCOL IV Last administered on 10/11/18 15:33; Admin Dose 10 MLS/HR; Start 10/06/18 at 12:30 Atorvastatin Calcium (Lipitor) 40 mg DAILY@21 NGT Last administered on 10/11/18 20:59; Admin Dose 40 MG; Start 10/06/18 at 21:00 Miscellaneous Information (Flu Vaccine Previously Dispensed) FLU VACCINE PREVIOU... NOTE PRN XX NOTE; Start 10/06/18 at 18:00 Meropenem/Sodium Chloride 50 ml @ 100 mls/hr Q12 IVPB Last administered on 10/12/18 08:12; Admin Dose 100 MLS/HR; Start 10/07/18 at 12:00 Midazolam HCl 50 ml @ 0 mls/hr TITRATE IV Last administered on 10/09/18 22:21; Admin Dose 3 MLS/HR; Start 10/08/18 at 10:00 Linezolid 300 ml @ 300 mls/hr Q12 IVPB Last administered on 10/12/18 08:12; Admin Dose 300 MLS/HR; Start 10/08/18 at 12:30 Fentanyl 100 ml @ 2.5 mls/hr TITRATE IV Last administered on 10/10/18 01:01; Admin Dose 2.5 MLS/HR; Start 10/08/18 at 16:30 Lorazepam (Ativan) 1 mg Q6H PRN IV seizure Last administered on 10/11/18 15:22; Admin Dose 1 MG; Start 10/08/18 at 16:00 Amiodarone HCl (Cordarone) 200 mg BID PO Last administered on 10/12/18 08:11; Admin Dose 200 MG; Start 10/09/18 at 21:00 Famotidine (Pepcid) 20 mg DAILY NGT Last administered on 10/12/18 08:11; Admin Dose 20 MG; Start 10/10/18 at 09:00 Phenylephrine HCl 250 ml @ 75 mls/hr TITRATE IV Last administered on 10/12/18 01:38; Admin Dose 6 MLS/HR; Start 10/09/18 at 13:00 Polyethylene Glycol (Miralax) 17 gm BID PRN PO constipation; Start 10/10/18 at 22:00 Valproate Sodium (Depakene Liquid Cup) 750 mg BID NGT ; Start 10/12/18 at 09:00; Status Hold Valproate Sodium (Depakene Liquid Cup) 750 mg Q8H GTB ; Start 10/12/18 at 13:00 ALEXI SINGH Oct 12, 2018 11:23
--- NOTE | 2018-10-12 11:28 | PN ---
Date/Time of Note Date/Time of Note DATE: 10/12/18 TIME: 11:26 Assessment/Plan VTE Prophylaxis Risk score (from Ns)>0 risk: 8 SCD applied (from Ns): Yes Pharmacological prophylaxis: heparin Lines/Catheters [facility] Central Line Central line still needed: Yes Urinary Cath still in place: Yes Reason Cath still needed: other (indicate) (intubated) Assessment/Plan Assessment/Plan A 67-year-old female coming in with signs of septic shock, likely secondary to urinary tract infection and pneumonia, elevated troponins, acute renal insufficiency, now intubated on pressor support. Also, with atrial fibrillation with rapid ventricular response, now in normal sinus rhythm. #Septic shock - Dr. Sanford following. - Likely due to UTI. - Urine cultures and Blood cultures growing E Coli x2. - Now off vasopressors. - Tylenol p.r.n. pain and fevers. #Seizure - Continue keppra - Morning of 10/08 had whole body twitching concerning for seizures; got Ativan then Versed. Again on 10/11 had a similar episode broken with Ativan. - EEG appears to have localized lesion but CT head is negative. Neuro following. - Will hold versed. - Pursue MRI after patient is hemodynamically stable off pressors and minimal vent settings. # NSTEMI - Unclear if this is true non-ST elevation myocardial infarction versus demand ischemia. - Continue high dose aspirin. - She is also on Lipitor. - Heparin gtt per cardiology. - Dr. Mello consulted. #A fib with RVR, paroxysmal - Dr. Mello following - Converted to normal sinus after getting Cardizem in ED - Now on amiodarone gtt and digoxin - Back in A fib. # Renal insufficiency - improving - Dr. Davila consulted - Not anuric # Hypothyroidism - Continue current thyroid medicines. - Low TSH, normal fT4 consistent with sick euthyroid syndrome. # History of dementia. Continue Aricept for now. # History of high cholesterol. - Cont statin # Gastrointestinal prophylaxis. Add H2 panda. # Deep venous thrombosis prophylaxis. She is on heparin drip. 45 minutes critical care time spent on this patient. Result Diagram: 10/12/18 0436 10/12/18435 Subjective 24 Hr Interval Summary Free Text/Dictation Yesterday according to the nurse in the afternoon the patient had another episode of whole body shaking concerning for seizures. Broke with Ativan. This morning patient has been weaned off pressors for the first time. Exam/Review of Systems Exam Vitals Vital Signs Date Temp Pulse Resp B/P (MAP) Pulse Ox O2 O2 Flow FiO2 Time Delivery Rate 10/12/18 121 35 100 30 11:16 10/12/18 93/62 (72) 11:00 10/12/18 99.8 Mechanical 08:00 Ventilator Intake and Output 10/11/18 10/11/18 10/12/18 1515:00 23:00 07:00 IntakeIntake Total 1266.75 ml 1078.5 ml 645.5 ml OutputOutput Total 745 ml 610 ml 445 ml BalanceBalance 521.75 ml 468.5 ml 200.5 ml Exam GENERAL: Well developed woman lying in bed, intubated. HEENT: Moist mucous membranes, ET tube in place. NECK: Supple, no thyromegaly. LUNGS: Mechanical breath sounds equal bilaterally. CARDIOVASCULAR: S1, S2 heard. No rubs or gallops. ABDOMEN: Soft, nontender, nondistended. Normal bowel sounds. No rebound or guarding. MUSCULOSKELETAL: No lower extremity edema bilaterally. Results Results 24hrs Laboratory Tests Test 10/11/18 12:04 10/11/18 19:23 10/11/18 22:30 10/12/18 01:47 Hemoglobin 8.2 L Hematocrit 23.2 L Activated 54.5 H 64.2 H 61.[address] Time Prothrombin Time 14.3 Prothrombin Time 1.1 Ratio INR International 1.10 Normalized Ratio Blood Gas Specimen Blood arterial Source Arterial Blood 10/11/2018 10:20:54 Date Drawn PM Arterial Blood pH 7.446 (Temp corrected) Arterial Blood 22.6 L pCO2 (Temp correct) Arterial Blood pO2 141.5 H (Temp corrected) Arterial Blood 15.2 L HCO3 Arterial Blood -7.5 L Base Excess Arterial Blood 98.5 H Oxygen Saturation Greg Test ACCEPTAB Arterial Blood Gas Right Radial Puncture Site Arterial 0.3 Blood Carboxyhemog lobin Arterial Blood 0.3 Methemoglobin Blood Gas A-a O2 45.8 H Differential Oxyhemoglobin 97.9 Percent Blood Gas 37.0 Temperature Blood Gas 20.0 Respiration Rate Blood Gas Actual 20 Respiration Rate Blood Gas Modality VENT - AC FiO2 30.0 Blood Gas Tidal 550.0 Volume Blood Gas Low PEEP 5.0 Setting Blood Gas 32.0 Inspiratory Pressure Blood Gas Notified KAYE LE Whom Blood Gas Notified 10/11/2018 10:32:14 Time PM Test 10/12/18 04:36 White Blood Count 12.9 #H Red Blood Count 2.47 L Hemoglobin 7.9 L Hematocrit 23.2 L Mean Corpuscular 93.9 Volume Mean Corpuscular 32.0 Hemoglobin Mean Corpuscular 34.1 Hemoglobin Concent Red Cell 15.4 H Distribution Width Platelet Count 281 # Mean Platelet 12.1 H Volume Immature 6.600 H Granulocytes % Neutrophils % Segmented 65 Neutrophils % (Manual) Band Neutrophils % 17 H (Manual) Lymphocytes % Lymphocytes % 13 L (Manual) Monocytes % Monocytes % 4 (Manual) Eosinophils % Basophils % Metamyelocytes % 1 H (manual) Nucleated Red 0.0 Blood Cells % Immature 0.850 H Granulocytes # Neutrophils # Neutrophils # 8.7 H (Manual) Band Neutrophils # 2.1 H Lymphocytes 1.6 (Manual) Lymphocytes # Monocytes # Monocytes # 0.5 (Manual) Eosinophils # Basophils # Metamyelocytes # 0.1 H Nucleated Red Blood Cells # Platelet Estimate NORMAL Polychromasia 1+ Hypochromasia 1+ Anisocytosis 2+ Macrocytosis 2+ Target Cells 1+ Ovalocytes 2+ Sodium Level 145 H Potassium Level 3.9 Chloride Level 117 H Carbon Dioxide 18 L Level Anion Gap 10 Blood Urea 64 H Nitrogen Creatinine 1.53 H Est Glomerular 34 L Filtrat Rate mL/min Glucose Level 112 Calcium Level 9.1 Valproic Acid 40 L (Depakene) Level Medications Medication Current Medications IV Flush (NS 3 ml) 3 ml PER PROTOCOL IV ; Start 10/06/18 at 09:30 Ondansetron HCl (Zofran Inj) 4 mg Q6H PRN IV NAUSEA/VOMITING; Start 10/06/18 at 09:30 Acetaminophen (Tylenol Tab) 650 mg Q6H PRN PO .PAIN 1-3 OR TEMP Last administered on 10/12/18at 08:27; Admin Dose 650 MG; Start 10/06/18 at 09:30 Acetaminophen/ Hydrocodone Bitart ([place] (5/325)) 1 tab Q6H PRN PO .MOD PAIN 4- 6; Start 10/06/18 at 09:30 Morphine Sulfate (morphine) 2 mg Q4H PRN IV .SEVERE PAIN 7-10; Start 10/06/18 at 09:30 Docusate Sodium (Colace) 100 mg Q12H PRN PO .CONSTIPATION; Start 10/06/18 at 09:30 Magnesium Hydroxide (Milk Of Mag) 30 ml DAILY PRN PO .CONSTIPATION; Start 10/06/18 at 09:30 Lorazepam (Ativan) 0.5 mg Q6H PRN IV ANXIETY Last administered on 10/12/18at 06:08; Admin Dose 0.5 MG; Start 10/06/18 at 09:30 Albuterol/ Ipratropium (Duoneb) 3 ml Q4H RESP THERAPY PRN HHN SHORTNESS OF BREATH; Start 10/06/18 at 09:30 Nitroglycerin (Nitroglycerin (Sl Tab) 0.4 Mg) 1 tab Q5M PRN SL ANGINA; Start 10/06/18 at 09:30 Bisacodyl (Dulcolax) 10 mg DAILY PRN PO CONSTIPATION; Start 10/06/18 at 09:30 Donepezil HCl (Aricept) 5 mg QHS PO Last administered on 10/11/18at 20:59; Admin Dose 5 MG; Start 10/06/18 at 21:00 Lactulose (Enulose) 20 gm TID PRN PO CONSTIPATION; Start 10/06/18 at 09:30 Levetiracetam (Keppra) 500 mg BID PO Last administered on 10/12/18 08:11; Admin Dose 500 MG; Start 10/06/18 at 21:00 Levothyroxine Sodium (Synthroid) 50 mcg BEFORE BREAKFAST PO Last administered on 10/12/18at 06:08; Admin Dose 50 MCG; Start 10/07/18 at 07:00 Mineral Oil (Fleet Mineral Oil Enema) 133 ml DAILY PRN [place] CONSTIPATION; Start 10/06/18 at 09:30 Multivitamins Therapeutic (Theragran) 1 tab DAILY PO Last administered on 10/12/18at 08:11; Admin Dose 1 TAB; Start 10/07/18 at 09:00 Norepinephrine 32 mg/Dextrose 250 ml @ 0.47 mls/hr TITRATE IV Last administered on 10/08/18at 12:53; Admin Dose 4.69 MLS/HR; Start 10/06/18 at 11:30 Aspirin (Aspirin) 81 mg DAILY NGT Last administered on 10/11/18 09:35; Admin Dose 81 MG; Start 10/06/18 at 12:30; Status Hold Heparin Sodium (Porcine) (Heparin (1000 Units/ml)) 4,000 unit PER PROTOCOL PRN IV aPTT<47; Start 10/06/18 at 12:30 Heparin Sodium (Porcine) 250 ml @ 8 mls/hr PER PROTOCOL IV Last administered on 10/11/18 15:33; Admin Dose 10 MLS/HR; Start 10/06/18 at 12:30 Atorvastatin Calcium (Lipitor) 40 mg DAILY@21 NGT Last administered on 10/11/18 20:59; Admin Dose 40 MG; Start 10/06/18 at 21:00 Miscellaneous Information (Flu Vaccine Previously Dispensed) FLU VACCINE PREVIOU... NOTE PRN XX NOTE; Start 10/06/18 at 18:00 Meropenem/Sodium Chloride 50 ml @ 100 mls/hr Q12 IVPB Last administered on 10/12/18 08:12; Admin Dose 100 MLS/HR; Start 10/07/18 at 12:00 Midazolam HCl 50 ml @ 0 mls/hr TITRATE IV Last administered on 10/09/18 22:21; Admin Dose 3 MLS/HR; Start 10/08/18 at 10:00 Linezolid 300 ml @ 300 mls/hr Q12 IVPB Last administered on 10/12/18 08:12; Admin Dose 300 MLS/HR; Start 10/08/18 at 12:30 Fentanyl 100 ml @ 2.5 mls/hr TITRATE IV Last administered on 10/10/18 01:01; Admin Dose 2.5 MLS/HR; Start 10/08/18 at 16:30 Lorazepam (Ativan) 1 mg Q6H PRN IV seizure Last administered on 10/11/18 15:22; Admin Dose 1 MG; Start 10/08/18 at 16:00 Amiodarone HCl (Cordarone) 200 mg BID PO Last administered on 10/12/18 08:11; Admin Dose 200 MG; Start 10/09/18 at 21:00 Famotidine (Pepcid) 20 mg DAILY NGT Last administered on 3/9/19at 08:11; Admin Dose 20 MG; Start 10/10/18 at 09:00 Phenylephrine HCl 250 ml @ 75 mls/hr TITRATE IV Last administered on 10/12/18at 01:38; Admin Dose 6 MLS/HR; Start 10/09/18 at 13:00 Polyethylene Glycol (Miralax) 17 gm BID PRN PO constipation; Start 10/10/18 at 22:00 Valproate Sodium (Depakene Liquid Cup) 750 mg BID NGT ; Start 10/12/18 at 09:00; Status Hold Valproate Sodium (Depakene Liquid Cup) 750 mg Q8H GTB ; Start 10/12/18 at 13:00 Digoxin (Digoxin) 250 mcg ONCE ONCE IV ; Start 10/12/18 at 11:30; Stop 10/12/18 at 11:31 ANGELA MOSQUERA MD Oct 12, 2018 11:28
[2018-10-12] MEDS ORDERED: NA BICARBONATE 8.4% 50 ML SYG IV STA (11:57)
[2018-10-12] MEDS ORDERED: DEXTROSE 5% 1,000 ML IV SCH (12:00)
[2018-10-12] MEDS ORDERED: NA BICARBONATE 8.4% 50 ML SYG ONE (12:03)
[2018-10-12] MEDS: VALPROIC ACID LIQUID CUP 250 MG/5 ML CUP GTB SCH ×2 (12:09→20:24)
--- NOTE | 2018-10-12 12:39 | CONS ---
Assessment/Plan Assessment/Plan Hospital Course (Demo Recall) Patient is off pressors tolerates weaning looks no fevers she is in no distress WBC today 12.9 platelets 281 BUN 64 creatinine 1.53 Microbiology: Blood and urine cultures growing E. coli Chest x-ray 10/11/18 revealed increased right basilar infiltrate concerning for pneumonia Indwelling: Endotracheal tube NG tube Piña catheter right IJ triple-lumen catheter Allergy: Penicillin, clindamycin Antibiotics: Merrem Zyvox Physical examination: Well-developed chronically ill-appearing elderly woman. The patient is in no distress. Head atraumatic normocephalic. Neck is supple. Chest rise symmetrical, breath sounds diminished bases. Heart: S1-S2, tachycardic, irregular. Abdomen soft bowel sounds hypoactive. Extremities mottled cyanotic Assessment: 1. Sepsis with shock==> off pressors 2. E coli bacteremia secondary to urinary tract infection 3. Acute hypoxemic respiratory failure 4. Healthcare associated pneumonia, possibly aspiration 4. Acute possibly on chronic kidney disease 5. Non-ST elevation VT 6. Atrial fibrillation with RVR Plan: Stable off pressors, on appropriate antibiotic regimen, renal f-n improving, repeat blood cultures negative. Continue present care, possible extubation today Consultation Date/Type/Reason Admit Date/Time Oct 06, 2018 at 09:29 Initial Consult Date 10/06/18 Type of Consult id Requesting Provider: MANUEL ALEMAN Date/Time of Note DATE: 10/12/18 TIME: 12:38 Exam/Review of Systems Exam Vitals Vital Signs Date Temp Pulse Resp B/P (MAP) Pulse Ox O2 O2 Flow FiO2 Time Delivery Rate 10/12/18 121 35 100 30 11:16 10/12/18 93/62 (72) 11:00 10/12/18 99.8 Mechanical 08:00 Ventilator Intake and Output 10/11/18 10/11/18 10/12/18 1515:00 23:00 07:00 IntakeIntake Total 1266.75 ml 1078.5 ml 645.5 ml OutputOutput Total 745 ml 610 ml 445 ml BalanceBalance 521.75 ml 468.5 ml 200.5 ml Results Result Diagram: 10/12/18 0436 10/12/18 0436 Results 24hrs Laboratory Tests Test 10/11/18 19:23 10/11/18 22:30 10/12/18 01:47 10/12/18 04:36 Prothrombin Time 14.3 Prothrombin Time 1.1 Ratio INR 1.10 International Normalized Ratio Activated 64.2 H 61.5 H Partial Thrombop last Time Blood Gas Blood arterial Specimen Source Arterial Blood 10/11/2018 10:20:5 Date Drawn 4 PM Arterial Blood 7.446 pH (Temp corrected) Arterial Blood 22.6 L pCO2 (Temp correct) Arterial Blood 141.5 H pO2 (Temp corrected) Arterial Blood 15.2 L HCO3 Arterial Blood -7.5 L Base Excess Arterial Blood 98.5 H Oxygen Saturatio n Greg Test ACCEPTAB Arterial Blood Right Radial Gas Puncture Site Arterial 0.3 Blood Carboxyhem oglobin Arterial Blood 0.3 Methemoglobin Blood Gas A-a O2 45.8 H Differential Oxyhemoglobin 97.9 Percent Blood Gas 37.0 Temperature Blood Gas 20.0 Respiration Rate Blood Gas Actual 20 Respiration Rate Blood Gas VENT - AC Modality FiO2 30.0 Blood Gas Tidal 550.0 Volume Blood Gas Low 5.0 PEEP Setting Blood Gas 32.0 Inspiratory Pressure Blood Gas KAYE LE Notified Whom Blood Gas 10/11/2018 10:32:1 Notified Time 4 PM White Blood 12.9 #H Count Red Blood Count 2.47 L Hemoglobin 7.9 L Hematocrit 23.2 L Mean Corpuscular 93.9 Volume Mean Corpuscular 32.0 Hemoglobin Mean Corpuscular 34.1 Hemoglobin Kiah nt Red Cell 15.4 H Distribution Width Platelet Count 281 # Mean Platelet 12.1 H Volume Immature 6.600 H Granulocytes % Neutrophils % Segmented 65 Neutrophils % (Manual) Band Neutrophils 17 H % (Manual) Lymphocytes % Lymphocytes % 13 L (Manual) Monocytes % Monocytes % 4 (Manual) Eosinophils % Basophils % Metamyelocytes % 1 H (manual) Nucleated Red 0.0 Blood Cells % Immature 0.850 H Granulocytes # Neutrophils # Neutrophils # 8.7 H (Manual) Band Neutrophils 2.1 H # Lymphocytes 1.6 (Manual) Lymphocytes # Monocytes # Monocytes # 0.5 (Manual) Eosinophils # Basophils # Metamyelocytes # 0.1 H Nucleated Red Blood Cells # Platelet NORMAL Estimate Polychromasia 1+ Hypochromasia 1+ Anisocytosis 2+ Macrocytosis 2+ Target Cells 1+ Ovalocytes 2+ Sodium Level 145 H Potassium Level 3.9 Chloride Level 117 H Carbon Dioxide 18 L Level Anion Gap 10 Blood Urea 64 H Nitrogen Creatinine 1.53 H Est Glomerular 34 L Filtrat Rate mL/min Glucose Level 112 Calcium Level 9.1 Valproic Acid 40 L (Depakene) Level Test 10/12/18 11:10 Blood Gas Blood arterial Specimen Source Arterial Blood 10/12/2018 11:25:2 Date Drawn 9 AM Arterial Blood 7.434 pH (Temp corrected) Arterial Blood 21.1 L pCO2 (Temp correct) Arterial Blood 126.2 H pO2 (Temp corrected) Arterial Blood 13.8 L HCO3 Arterial Blood -8.9 L Base Excess Arterial Blood 98.1 H Oxygen Saturatio n Greg Test ACCEPTAB Arterial Blood Right Radial Gas Puncture Site Arterial 0.3 Blood Carboxyhem oglobin Arterial Blood 0 Methemoglobin Blood Gas A-a O2 62.9 H Differential Oxyhemoglobin 97.8 Percent Blood Gas 37.0 Temperature Blood Gas Actual 35 Respiration Rate Blood Gas VENT - CPAP Modality FiO2 30.0 Blood Gas Low 5.0 PEEP Setting Blood Gas 10 Pressure Support Blood Gas M.DLes Notified Whom Blood Gas 10/12/2018 11:36:5 Notified Time 5 AM Medications Medication Current Medications IV Flush (NS 3 ml) 3 ml PER PROTOCOL IV ; Start 10/06/18 at 09:30 Ondansetron HCl (Zofran Inj) 4 mg Q6H PRN IV NAUSEA/VOMITING; Start 10/06/18 at 09:30 Acetaminophen (Tylenol Tab) 650 mg Q6H PRN PO .PAIN 1-3 OR TEMP Last a dministered on 10/12/18at 08:27; Admin Dose 650 MG; Start 10/06/18 at 09:30 Acetaminophen/ Hydrocodone Bitart ([place] (5/325)) 1 tab Q6H PRN PO .MOD PAIN 4- 6; Start 10/06/18 at 09:30 Morphine Sulfate (morphine) 2 mg Q4H PRN IV .SEVERE PAIN 7-10; Start 10/06/18 at 09:30 Docusate Sodium (Colace) 100 mg Q12H PRN PO .CONSTIPATION; Start 10/06/18 at 09:30 Magnesium Hydroxide (Milk Of Mag) 30 ml DAILY PRN PO .CONSTIPATION; Start 10/06/18 at 09:30 Lorazepam (Ativan) 0.5 mg Q6H PRN IV ANXIETY Last administered on 10/12/18 11:35; Admin Dose 0.5 MG; Start 10/06/18 at 09:30 Albuterol/ Ipratropium (Duoneb) 3 ml Q4H RESP THERAPY PRN HHN SHORTNESS OF BREATH; Start 10/06/18 at 09:30 Nitroglycerin (Nitroglycerin (Sl Tab) 0.4 Mg) 1 tab Q5M PRN SL ANGINA; Start 10/06/18 at 09:30 Bisacodyl (Dulcolax) 10 mg DAILY PRN PO CONSTIPATION; Start 10/06/18 at 09:30 Donepezil HCl (Aricept) 5 mg QHS PO Last administered on 10/11/18 20:59; Admin Dose 5 MG; Start 10/06/18 at 21:00 Lactulose (Enulose) 20 gm TID PRN PO CONSTIPATION; Start 10/06/18 at 09:30 Levetiracetam (Keppra) 500 mg BID PO Last administered on 10/12/18 08:11; Admin Dose 500 MG; Start 10/06/18 at 21:00 Levothyroxine Sodium (Synthroid) 50 mcg BEFORE BREAKFAST PO Last administered on 10/12/18 06:08; Admin Dose 50 MCG; Start 10/07/18 at 07:00 Mineral Oil (Fleet Mineral Oil Enema) 133 ml DAILY PRN [place] CONSTIPATION; Start 10/06/18 at 09:30 Multivitamins Therapeutic (Theragran) 1 tab DAILY PO Last administered on 10/12/18 08:11; Admin Dose 1 TAB; Start 10/07/18 at 09:00 Norepinephrine 32 mg/Dextrose 250 ml @ 0.47 mls/hr TITRATE IV Last administer ed on 10/08/18 12:53; Admin Dose 4.69 MLS/HR; Start 10/06/18 at 11:30 Aspirin (Aspirin) 81 mg DAILY NGT Last administered on 10/11/18 09:35; Admin Dose 81 MG; Start 10/06/18 at 12:30; Status Hold Heparin Sodium (Porcine) (Heparin (1000 Units/ml)) 4,000 unit PER PROTOCOL PRN IV aPTT<47; Start 10/06/18 at 12:30 Heparin Sodium (Porcine) 250 ml @ 8 mls/hr PER PROTOCOL IV Last administered on 10/11/18 15:33; Admin Dose 10 MLS/HR; Start 10/06/18 at 12:30 Atorvastatin Calcium (Lipitor) 40 mg DAILY@21 NGT Last administered on 10/11/18 20:59; Admin Dose 40 MG; Start 10/06/18 at 21:00 Miscellaneous Information (Flu Vaccine Previously Dispensed) FLU VACCINE PREVIOU... NOTE PRN XX NOTE; Start 10/06/18 at 18:00 Meropenem/Sodium Chloride 50 ml @ 100 mls/hr Q12 IVPB Last administered on 10/12/18 08:12; Admin Dose 100 MLS/HR; Start 10/07/18 at 12:00 Midazolam HCl 50 ml @ 0 mls/hr TITRATE IV Last administered on 10/09/18 22:21; Admin Dose 3 MLS/HR; Start 10/08/18 at 10:00 Linezolid 300 ml @ 300 mls/hr Q12 IVPB Last administered on 10/12/18 08:12; Admin Dose 300 MLS/HR; Start 10/08/18 at 12:30 Fentanyl 100 ml @ 2.5 mls/hr TITRATE IV Last administered on 10/10/18 01:01; Admin Dose 2.5 MLS/HR; Start 10/08/18 at 16:30 Lorazepam (Ativan) 1 mg Q6H PRN IV seizure Last administered on 10/11/18 15:22; Admin Dose 1 MG; Start 10/08/18 at 16:00 Amiodarone HCl (Cordarone) 200 mg BID PO Last administered on 10/12/18 08:11; Admin Dose 200 MG; Start 10/09/18 at 21:00 Famotidine (Pepcid) 20 mg DAILY NGT Last administered on 10/12/18 08:11; Admin Dose 20 MG; Start 10/10/18 at 09:00 Phenylephrine HCl 250 ml @ 75 mls/hr TITRATE IV Last administered on 10/12/18 01:38; Admin Dose 6 MLS/HR; Start 10/09/18 at 13:00 Polyethylene Glycol (Miralax) 17 gm BID PRN PO constipation; Start 10/10/18 at 22:00 Valproate Sodium (Depakene Liquid Cup) 750 mg BID NGT ; Start 10/12/18 at 09:00; Status Hold Valproate Sodium (Depakene Liquid Cup) 750 mg Q8H GTB Last administered on 10/12/18at 12:09; Admin Dose 750 MG; Start 10/12/18 at 13:00 Dextrose 1,000 ml @ 50 mls/hr Q20H IV Last administered on 10/12/18at 12:16; Admin Dose 50 MLS/HR; Start 10/12/18 at 12:00; Stop 10/14/18 at 03:59 MARKOS BRADY NP Oct 12, 2018 12:39
[2018-10-12] MEDS ORDERED: VALPROATE INJ 1,000 MG in SOD CHLORIDE 0.9% 100 ML IVPB STA (13:37)
--- NOTE | 2018-10-12 14:39 | CONS ---
Assessment/Plan Assessment/Plan Hospital Course (Demo Recall) IMP: 1. Nstemi- in setting of renal failure and shock. Downtrended 2.Shock-on levo 3.Tachycardia-S tach at this time 4.UTI 5.PAF with RVR-now recurrent AF/AFL with RVR 6.Renal failure 7.Dyslipidemia 8.Sz d/o 9. Hypothyroid 10. anemia-slight worsening Recc: -ICU -off Rafita since overnight -Follow rhythm and rate closely -ok to change heparin to NOAC eliquis/xarelto for AF/AFL -Continue abx's and f/u cx data -Continue statin -Contineu po amiodarone BID and will rebolus of IV amio -will give additional dose of digoxin IVP 6 hours after dose given this am Consultation Date/Type/Reason Admit Date/Time Oct 06, 2018 at 09:29 Initial Consult Date 10/06/18 Type of Consult Cardiology Reason for Consultation AF/AFL Requesting Provider: MANUEL ALEMAN Date/Time of Note DATE: 10/12/18 TIME: 14:35 Exam/Review of Systems Vital Signs Vitals Vital Signs Date Temp Pulse Resp B/P (MAP) Pulse Ox O2 O2 Flow FiO2 Time Delivery Rate 10/12/18 106 20 96/69 (78) 100 14:00 10/12/18 30 13:20 10/12/18 98.0 Mechanical 12:00 Ventilator Intake and Output 10/11/18 10/11/18 10/12/18 1515:00 23:00 07:00 IntakeIntake Total 1266.75 ml 1078.5 ml 645.5 ml OutputOutput Total 745 ml 610 ml 445 ml BalanceBalance 521.75 ml 468.5 ml 200.5 ml Exam Exam Review of Systems: CONSTITUTIONAL: No fevers, chills. PULMONARY: intubated CARDIOVASCULAR: No chest pain/palpitations GASTROINTESTINAL: No nausea/vomiting. GENITOURINARY: No hematuria/dysuria. MUSCULOSKELETAL: No myagias/arthalgias. PSYCHIATRIC: The patient denies depression. NEUROLOGIC: No weakness Constitutional: other (sedated) Psych: no complaints Head: normocephalic ENMT: intubated Neck: supple, jvd Respiratory: diminished breath sounds Cardiovascular: irregular rhythm (tachycardic) Gastrointestinal: soft, non-tender Musculoskeletal: muscle weakness (generalized) Extremities: edema (none) Labs Result Diagram: 10/12/18 0436 10/12/18 0436 Results 24hrs Laboratory Tests Test 10/11/18 19:23 10/11/18 22:30 10/12/18 01:47 10/12/18 04:36 Prothrombin Time 14.3 Prothrombin Time 1.1 Ratio INR 1.10 International Normalized Ratio Activated 64.2 H 61.5 H Partial Thrombop last Time Blood Gas Blood arterial Specimen Source Arterial Blood 10/11/2018 10:20:5 Date Drawn 4 PM Arterial Blood 7.446 pH (Temp corrected) Arterial Blood 22.6 L pCO2 (Temp correct) Arterial Blood 141.5 H pO2 (Temp corrected) Arterial Blood 15.2 L HCO3 Arterial Blood -7.5 L Base Excess Arterial Blood 98.5 H Oxygen Saturatio n Greg Test ACCEPTAB Arterial Blood Right Radial Gas Puncture Site Arterial 0.3 Blood Carboxyhem oglobin Arterial Blood 0.3 Methemoglobin Blood Gas A-a O2 45.8 H Differential Oxyhemoglobin 97.9 Percent Blood Gas 37.0 Temperature Blood Gas 20.0 Respiration Rate Blood Gas Actual 20 Respiration Rate Blood Gas VENT - AC Modality FiO2 30.0 Blood Gas Tidal 550.0 Volume Blood Gas Low 5.0 PEEP Setting Blood Gas 32.0 Inspiratory Pressure Blood Gas KAYE LE Notified Whom Blood Gas 10/11/2018 10:32:1 Notified Time 4 PM White Blood 12.9 #H Count Red Blood Count 2.47 L Hemoglobin 7.9 L Hematocrit 23.2 L Mean Corpuscular 93.9 Volume Mean Corpuscular 32.0 Hemoglobin Mean Corpuscular 34.1 Hemoglobin Kiah nt Red Cell 15.4 H Distribution Width Platelet Count 281 # Mean Platelet 12.1 H Volume Immature 6.600 H Granulocytes % Neutrophils % Segmented 65 Neutrophils % (Manual) Band Neutrophils 17 H % (Manual) Lymphocytes % Lymphocytes % 13 L (Manual) Monocytes % Monocytes % 4 (Manual) Eosinophils % Basophils % Metamyelocytes % 1 H (manual) Nucleated Red 0.0 Blood Cells % Immature 0.850 H Granulocytes # Neutrophils # Neutrophils # 8.7 H (Manual) Band Neutrophils 2.1 H # Lymphocytes 1.6 (Manual) Lymphocytes # Monocytes # Monocytes # 0.5 (Manual) Eosinophils # Basophils # Metamyelocytes # 0.1 H Nucleated Red Blood Cells # Platelet NORMAL Estimate Polychromasia 1+ Hypochromasia 1+ Anisocytosis 2+ Macrocytosis 2+ Target Cells 1+ Ovalocytes 2+ Sodium Level 145 H Potassium Level 3.9 Chloride Level 117 H Carbon Dioxide 18 L Level Anion Gap 10 Blood Urea 64 H Nitrogen Creatinine 1.53 H Est Glomerular 34 L Filtrat Rate mL/min Glucose Level 112 Calcium Level 9.1 Valproic Acid 40 L (Depakene) Level Test 10/12/18 11:10 10/12/18 12:08 Blood Gas Blood arterial Specimen Source Arterial Blood 10/12/2018 11:25:2 Date Drawn 9 AM Arterial Blood 7.434 pH (Temp corrected) Arterial Blood 21.1 L pCO2 (Temp correct) Arterial Blood 126.2 H pO2 (Temp corrected) Arterial Blood 13.8 L HCO3 Arterial Blood -8.9 L Base Excess Arterial Blood 98.1 H Oxygen Saturatio n Greg Test ACCEPTAB Arterial Blood Right Radial Gas Puncture Site Arterial 0.3 Blood Carboxyhem oglobin Arterial Blood 0 Methemoglobin Blood Gas A-a O2 62.9 H Differential Oxyhemoglobin 97.8 Percent Blood Gas 37.0 Temperature Blood Gas Actual 35 Respiration Rate Blood Gas VENT - CPAP Modality FiO2 30.0 Blood Gas Low 5.0 PEEP Setting Blood Gas 10 Pressure Support Blood Gas Ursula Notified Whom Blood Gas 10/12/2018 11:36:5 Notified Time 5 AM Valproic Acid 46 L (Depakene) Level Medications Medications Current Medications IV Flush (NS 3 ml) 3 ml PER PROTOCOL IV ; Start 10/06/18 at 09:30 Ondansetron HCl (Zofran Inj) 4 mg Q6H PRN IV NAUSEA/VOMITING; Start 10/06/18 at 09:30 Acetaminophen (Tylenol Tab) 650 mg Q6H PRN PO .PAIN 1-3 OR TEMP Last administered on 10/12/18at 08:27; Admin Dose 650 MG; Start 10/06/18 at 09:30 Acetaminophen/ Hydrocodone Bitart ([place] (5/325)) 1 tab Q6H PRN PO .MOD PAIN 4- 6; Start 10/06/18 at 09:30 Morphine Sulfate (morphine) 2 mg Q4H PRN IV .SEVERE PAIN 7-10; Start 10/06/18 at 09:30 Docusate Sodium (Colace) 100 mg Q12H PRN PO .CONSTIPATION; Start 10/06/18 at 09:30 Magnesium Hydroxide (Milk Of Mag) 30 ml DAILY PRN PO .CONSTIPATION; Start 10/06/18 at 09:30 Lorazepam (Ativan) 0.5 mg Q6H PRN IV ANXIETY Last administered on 10/12/18 11:35; Admin Dose 0.5 MG; Start 10/06/18 at 09:30 Albuterol/ Ipratropium (Duoneb) 3 ml Q4H RESP THERAPY PRN HHN SHORTNESS OF BREATH; Start 10/06/18 at 09:30 Nitroglycerin (Nitroglycerin (Sl Tab) 0.4 Mg) 1 tab Q5M PRN SL ANGINA; Start 10/06/18 at 09:30 Bisacodyl (Dulcolax) 10 mg DAILY PRN PO CONSTIPATION; Start 10/06/18 at 09:30 Donepezil HCl (Aricept) 5 mg QHS PO Last administered on 10/11/18 20:59; Admin Dose 5 MG; Start 10/06/18 at 21:00 Lactulose (Enulose) 20 gm TID PRN PO CONSTIPATION; Start 10/06/18 at 09:30 Levetiracetam (Keppra) 500 mg BID PO Last administered on 10/12/18 08:11; Admin Dose 500 MG; Start 10/06/18 at 21:00 Levothyroxine Sodium (Synthroid) 50 mcg BEFORE BREAKFAST PO Last administered on 10/12/18 06:08; Admin Dose 50 MCG; Start 10/07/18 at 07:00 Mineral Oil (Fleet Mineral Oil Enema) 133 ml DAILY PRN [place] CONSTIPATION; Start 10/06/18 at 09:30 Multivitamins Therapeutic (Theragran) 1 tab DAILY PO Last administered on 10/12/18 08:11; Admin Dose 1 TAB; Start 10/07/18 at 09:00 Norepinephrine 32 mg/Dextrose 250 ml @ 0.47 mls/hr TITRATE IV Last administered on 10/08/18 12:53; Admin Dose 4.69 MLS/HR; Start 10/06/18 at 11:30 Aspirin (Aspirin) 81 mg DAILY NGT Last administered on 10/11/18 09:35; Admin Dose 81 MG; Start 10/06/18 at 12:30; Status Hold Heparin Sodium (Porcine) (Heparin (1000 Units/ml)) 4,000 unit PER PROTOCOL PRN IV aPTT<47; Start 10/06/18 at 12:30 Heparin Sodium (Porcine) 250 ml @ 8 mls/hr PER PROTOCOL IV Last administered on 10/11/18 15:33; Admin Dose 10 MLS/HR; Start 10/06/18 at 12:30 Atorvastatin Calcium (Lipitor) 40 mg DAILY@21 NGT Last administered on 10/11/18 20:59; Admin Dose 40 MG; Start 10/06/18 at 21:00 Miscellaneous Information (Flu Vaccine Previously Dispensed) FLU VACCINE PREVIOU... NOTE PRN XX NOTE; Start 10/06/18 at 18:00 Meropenem/Sodium Chloride 50 ml @ 100 mls/hr Q12 IVPB Last administered on 10/12/18 08:12; Admin Dose 100 MLS/HR; Start 10/07/18 at 12:00 Midazolam HCl 50 ml @ 0 mls/hr TITRATE IV Last administered on 10/09/18 22:21; Admin Dose 3 MLS/HR; Start 10/08/18 at 10:00 Linezolid 300 ml @ 300 mls/hr Q12 IVPB Last administered on 10/12/18 08:12; Admin Dose 300 MLS/HR; Start 10/08/18 at 12:30 Fentanyl 100 ml @ 2.5 mls/hr TITRATE IV Last administered on 10/10/18 01:01; Admin Dose 2.5 MLS/HR; Start 10/08/18 at 16:30 Lorazepam (Ativan) 1 mg Q6H PRN IV seizure Last administered on 10/11/18 15:22; Admin Dose 1 MG; Start 10/08/18 at 16:00 Amiodarone HCl (Cordarone) 200 mg BID PO Last administered on 10/12/18 08:11; Admin Dose 200 MG; Start 10/09/18 at 21:00 Famotidine (Pepcid) 20 mg DAILY NGT Last administered on 10/12/18 08:11; Admin Dose 20 MG; Start 10/10/18 at 09:00 Phenylephrine HCl 250 ml @ 75 mls/hr TITRATE IV Last administered on 10/12/18at 01:38; Admin Dose 6 MLS/HR; Start 10/09/18 at 13:00 Polyethylene Glycol (Miralax) 17 gm BID PRN PO constipation; Start 10/10/18 at 22:00 Valproate Sodium (Depakene Liquid Cup) 750 mg BID NGT ; Start 10/12/18 at 09:00; Status Hold Valproate Sodium (Depakene Liquid Cup) 750 mg Q8H GTB Last administered on 10/12/18at 12:09; Admin Dose 750 MG; Start 10/12/18 at 13:00 Sodium Bicarbonate 100 meq/Dextrose/ Sodium Chloride 1,000 ml @ 75 mls/hr [id number] IV ; Start 10/12/18 at 14:00 Valproate Sodium 1000 mg/Sodium Chloride 110 ml @ 110 mls/hr ONCE STAT IVPB ; Start 10/12/18 at 13:37; Stop 10/12/18 at 14:36 ANGELA CARY Oct 12, 2018 14:39
[2018-10-12] MEDS ORDERED: AMIODARONE 150MG/D5W BOLUS 100 ML IV ONE (15:00)
[2018-10-12] MEDS ORDERED: METOPROLOL 5 MG INJ IV PRN (15:00)
[2018-10-12] MEDS: METOPROLOL 25 MG TAB PO SCH ×2 (15:24→20:25)
--- NOTE | 2018-10-12 15:41 | CONS ---
Assessment/Plan Assessment/Plan Hospital Course 67 F c/ dementia, epilepsy, and other comorbidities, who presents for management of cardiopulmonary Sx. She was noted to have a generalized convulsion on 10/08, for which neurology is consulted... Certainly her acute illness is lowering her seizure threshold.. CTH is without acute intracranial pathology EEG is notable for severe left hemispheric on diffuse slowing 10/12: breakthrough seizure --> ativan rescue P: Depacon bolus 1g iv, then increae maintenance depakote to 750 mg q8h Increase Keppra to 750mg bid for now, given improvement in renal function OK to continue asa for primary stroke prevention daily given her afib Ativan iv prn prolonged seizure or cluster Continued medical management per primary Will follow clinically Consultation Date/Type/Reason Admit Date/Time Oct 06, 2018 at 09:29 Type of Consult Neurology Reason for Consultation coma; seizure Requesting Provider: MANUEL ALEMAN Date/Time of Note DATE: 10/12/18 TIME: 15:36 24 HR Interval Summary Free Text/Dictation breakthrough seizure yesterday.. s/p ativan iv ....and depacon boluses.. continues icu care Exam Vital Signs Vitals Vital Signs Date Temp Pulse Resp B/P (MAP) Pulse Ox O2 O2 Flow FiO2 Time Delivery Rate 10/12/18 116 20 109/89 100 15:00 (96) 10/12/18 30 15:00 10/12/18 98.0 Mechanical 12:00 Ventilator Intake and Output 10/11/18 10/11/18 10/12/18 1515:00 23:00 07:00 IntakeIntake Total 1266.75 ml 1078.5 ml 645.5 ml OutputOutput Total 745 ml 610 ml 445 ml BalanceBalance 521.75 ml 468.5 ml 200.5 ml Exam PE: Gen Appearance: No Apparent Distress HEENT: Intubated Cardiovascular: Regular rate Abdomen: Soft Extremities: Dry NE: The patient was obtunded and nonverbal. Cranial nerve examination was limited by mental status. Pupils were equal and reactive to light. There was no afferent pupillary defect. Funduscopic examination was limited. Face was grossly symmetric, w/ present corneal and cough reflexes. Tone was normal. Muscle bulk was normal. I did not see fasciculations. The patient localized w/ her right arm.. Coordination and gait testing was limited by mental status. Arm and leg reflexes were symmetric. Beck's sign was absent. Plantar responses were flexor. FROYLAN WOOD Oct 12, 2018 15:40
[2018-10-12] MEDS: SODIUM BICARBONATE (IV ADD) 100 MEQ in DEXTROSE 5%-0.45% NACL 900 ML IV SCH (15:59)
[2018-10-12] MEDS: morphine 2 MG INJ IV PRN ×2 (16:16→23:00)
[2018-10-12] MEDS: HEPARIN 25000 UNITS/250 ML 250 ML IV SCH (16:20)
[2018-10-12] MEDS: LEVETIRACETAM 750 MG TAB GTB SCH (20:24)
[2018-10-12] MEDS: ATORVASTATIN 40 MG TAB NGT SCH (20:25)
[2018-10-12] MEDS: DONEPEZIL 5 MG TAB PO SCH (20:26)
[2018-10-13] VITALS (76 sets, daily range): BP systolic 82–160; BP diastolic 49–146; PULSE 80–157; RESP 15–25
[2018-10-13] MEDS: LORAZEPAM 2 MG INJ IV PRN ×3 (00:54→20:36)
[2018-10-13] MEDS: SODIUM BICARBONATE (IV ADD) 100 MEQ in DEXTROSE 5%-0.45% NACL 900 ML IV SCH ×2 (04:21→17:28)
[2018-10-13] MEDS: VALPROIC ACID LIQUID CUP 250 MG/5 ML CUP GTB SCH ×3 (04:24→20:25)
[2018-10-13] MEDS: LEVOTHYROXINE 50 MCG TAB PO SCH (06:37)
[2018-10-13] MEDS: HEPARIN 25000 UNITS/250 ML 250 ML IV SCH (06:56)
[2018-10-13] MEDS: MEROPENEM 500MG/50 ML (PMX) 50 ML IVPB SCH ×2 (08:27→20:33)
[2018-10-13] MEDS: LINEZOLID 600 MG/D5W (PMX) 300 ML IVPB SCH (08:28)
[2018-10-13] MEDS: MULTIVITAMINS THERAPEUTIC TAB PO SCH (08:28)
[2018-10-13] MEDS: FAMOTIDINE 20 MG TAB NGT SCH (08:28)
[2018-10-13] MEDS: BALSAM PERU/CASTOR OIL 60 GM TUBE TOP SCH (08:28)
[2018-10-13] MEDS: AMIODARONE 200 MG TAB PO SCH ×2 (08:28→20:25)
[2018-10-13] MEDS: LEVETIRACETAM 750 MG TAB GTB SCH ×2 (08:38→20:25)
[2018-10-13] MEDS: METOPROLOL 25 MG TAB PO SCH ×2 (08:38→20:26)
--- NOTE | 2018-10-13 08:59 | CONS ---
Consult Date/Type/Reason Admit Date/Time Oct 06, 2018 at 09:29 Initial Consult Date 10/06/18 Type of Consult Pulmonary Requesting Provider: MANUEL ALEMAN Date/Time of Note DATE: 10/13/18 TIME: 08:57 Subjective Patient failed extubation yesterday secondary to tachycardia tachypnea and significant secretions. Objective Vital Signs Date Temp Pulse Resp B/P (MAP) Pulse Ox O2 O2 Flow FiO2 Time Delivery Rate 10/13/18 98.9 109 15 92/69 (77) 100 Mechanical 08:00 Ventilator 10/13/18 30 07:30 Intake and Output 10/12/18 10/12/18 10/13/18 1515:00 23:00 07:00 IntakeIntake Total 857.5 ml 2030.50 ml 1011.25 ml OutputOutput Total 510 ml 570 ml 275 ml BalanceBalance 347.5 ml 1460.50 ml 736.25 ml Exam Elderly lady orally intubated on mechanical ventilation VITAL SIGNS: per chart NECK: Supple. No JVD or lymphadenopathy. CARDIAC EXAM: S1, S2. No added sounds or murmurs. CHEST: Diminished air entry bilaterally ABDOMEN: Soft, nontender. No guarding or rebound. EXTREMITIES: No cyanosis, clubbing or edema. NEUROLOGIC: Generalized weakness. No focal deficits. Vent Setting Ventilator Support Mode: AC, VC plus Fraction of Inspired Oxygen pe: 30 Positive End Expiratory Pressu: 5.0 Results/Medications Result Diagram: 10/13/18 0447 10/13/18 0447 Results 24 hrs Laboratory Tests Test 10/12/18 11:10 10/12/18 12:08 10/12/18 18:58 10/13/18 04:47 Blood Gas Specimen Blood arterial Source Arterial Blood 10/12/2018 11:25:29 Date Drawn AM Arterial Blood pH 7.434 (Temp corrected) Arterial Blood 21.1 L pCO2 (Temp correct) Arterial Blood pO2 126.2 H (Temp corrected) Arterial Blood 13.8 L HCO3 Arterial Blood -8.9 L Base Excess Arterial Blood 98.1 H Oxygen Saturation Greg Test ACCEPTAB Arterial Blood Gas Right Radial Puncture Site Arterial 0.3 Blood Carboxyhemog lobin Arterial Blood 0 Methemoglobin Blood Gas A-a O2 62.9 H Differential Oxyhemoglobin 97.8 Percent Blood Gas 37.0 Temperature Blood Gas Actual 35 Respiration Rate Blood Gas Modality VENT - CPAP FiO2 30.0 Blood Gas Low PEEP 5.0 Setting Blood Gas Pressure 10 Support Blood Gas Notified Ursula Whom Blood Gas Notified 10/12/2018 11:36:55 Time AM Valproic Acid 46 L 61 57 (Depakene) Level White Blood Count 10.5 Red Blood Count 2.27 L Hemoglobin 7.2 L Hematocrit 21.8 L Mean Corpuscular 96.0 Volume Mean Corpuscular 31.7 Hemoglobin Mean Corpuscular 33.0 Hemoglobin Concent Red Cell 15.5 H Distribution Width Platelet Count 355 # Mean Platelet 11.9 H Volume Immature 4.900 H Granulocytes % Neutrophils % 71.6 Lymphocytes % 14.1 L Monocytes % 8.0 Eosinophils % 1.1 Basophils % 0.3 Nucleated Red 0.0 Blood Cells % Immature 0.510 H Granulocytes # Neutrophils # 7.5 Lymphocytes # 1.5 Monocytes # 0.8 Eosinophils # 0.1 Basophils # 0.0 Nucleated Red 0.0 Blood Cells # Activated 49.[address] Time Sodium Level 147 H Potassium Level 3.5 Chloride Level 115 H Carbon Dioxide 21 Level Anion Gap 11 Blood Urea 51 H Nitrogen Creatinine 1.21 H Est Glomerular 44 L Filtrat Rate mL/min Glucose Level 117 Calcium Level 8.8 Phosphorus Level 3.3 Magnesium Level 1.9 Medications Current Medications IV Flush (NS 3 ml) 3 ml PER PROTOCOL IV ; Start 10/06/18 at 09:30 Ondansetron HCl (Zofran Inj) 4 mg Q6H PRN IV NAUSEA/VOMITING; Start 10/06/18 at 09:30 Acetaminophen (Tylenol Tab) 650 mg Q6H PRN PO .PAIN 1-3 OR TEMP Last administered on 10/12/18at 08:27; Admin Dose 650 MG; Start 10/06/18 at 09:30 Acetaminophen/ Hydrocodone Bitart ([place] (5/325)) 1 tab Q6H PRN PO .MOD PAIN 4- 6; Start 10/06/18 at 09:30 Morphine Sulfate (morphine) 2 mg Q4H PRN IV .SEVERE PAIN 7-10 Last administered on 10/12/18at 23:00; Admin Dose 2 MG; Start 10/06/18 at 09:30 Docusate Sodium (Colace) 100 mg Q12H PRN PO .CONSTIPATION; Start 10/06/18 at 09:30 Magnesium Hydroxide (Milk Of Mag) 30 ml DAILY PRN PO .CONSTIPATION; Start 10/06/18 at 09:30 Lorazepam (Ativan) 0.5 mg Q6H PRN IV ANXIETY Last administered on 10/13/18at 00:54; Admin Dose 0.5 MG; Start 10/06/18 at 09:30 Albuterol/ Ipratropium (Duoneb) 3 ml Q4H RESP THERAPY PRN HHN SHORTNESS OF BREATH; Start 10/06/18 at 09:30 Nitroglycerin (Nitroglycerin (Sl Tab) 0.4 Mg) 1 tab Q5M PRN SL ANGINA; Start 10/06/18 at 09:30 Bisacodyl (Dulcolax) 10 mg DAILY PRN PO CONSTIPATION; Start 10/06/18 at 09:30 Donepezil HCl (Aricept) 5 mg QHS PO Last administered on 10/12/18at 20:26; Admin Dose 5 MG; Start 10/06/18 at 21:00 Lactulose (Enulose) 20 gm TID PRN PO CONSTIPATION; Start 10/06/18 at 09:30 Levothyroxine Sodium (Synthroid) 50 mcg BEFORE BREAKFAST PO Last administered on 10/13/18 06:37; Admin Dose 50 MCG; Start 10/07/18 at 07:00 Mineral Oil (Fleet Mineral Oil Enema) 133 ml DAILY PRN [place] CONSTIPATION; Start 10/06/18 at 09:30 Multivitamins Therapeutic (Theragran) 1 tab DAILY PO Last administered on 10/13/18 08:28; Admin Dose 1 TAB; Start 10/07/18 at 09:00 Norepinephrine 32 mg/Dextrose 250 ml @ 0.47 mls/hr TITRATE IV Last administered on 10/08/18 12:53; Admin Dose 4.69 MLS/HR; Start 10/06/18 at 11:30 Aspirin (Aspirin) 81 mg DAILY NGT Last administered on 10/11/18 09:35; Admin Dose 81 MG; Start 10/06/18 at 12:30; Status Hold Heparin Sodium (Porcine) (Heparin (1000 Units/ml)) 4,000 unit PER PROTOCOL PRN IV aPTT<47; Start 10/06/18 at 12:30 Heparin Sodium (Porcine) 250 ml @ 8 mls/hr PER PROTOCOL IV Last administered on 10/13/18 06:56; Admin Dose 11.5 MLS/HR; Start 10/06/18 at 12:30 Atorvastatin Calcium (Lipitor) 40 mg DAILY@21 NGT Last administered on 10/12/18 20:25; Admin Dose 40 MG; Start 10/06/18 at 21:00 Miscellaneous Information (Flu Vaccine Previously Dispensed) FLU VACCINE PREVIOU... NOTE PRN XX NOTE; Start 10/06/18 at 18:00 Meropenem/Sodium Chloride 50 ml @ 100 mls/hr Q12 IVPB Last administered on 10/13/18 08:27; Admin Dose 100 MLS/HR; Start 10/07/18 at 12:00 Midazolam HCl 50 ml @ 0 mls/hr TITRATE IV Last administered on 10/09/18 22:21; Admin Dose 3 MLS/HR; Start 10/08/18 at 10:00 Linezolid 300 ml @ 300 mls/hr Q12 IVPB Last administered on 10/13/18 08:28; Admin Dose 300 MLS/HR; Start 10/08/18 at 12:30 Fentanyl 100 ml @ 2.5 mls/hr TITRATE IV Last administered on 10/10/18 01:01; Admin Dose 2.5 MLS/HR; Start 10/08/18 at 16:30 Lorazepam (Ativan) 1 mg Q6H PRN IV seizure Last administered on 10/11/18 15:22; Admin Dose 1 MG; Start 10/08/18 at 16:00 Amiodarone HCl (Cordarone) 200 mg BID PO Last administered on 10/13/18 08:28; Admin Dose 200 MG; Start 10/09/18 at 21:00 Famotidine (Pepcid) 20 mg DAILY NGT Last administered on 10/13/18 08:28; Admin Dose 20 MG; Start 10/10/18 at 09:00 Phenylephrine HCl 250 ml @ 75 mls/hr TITRATE IV Last administered on 10/12/18 01:38; Admin Dose 6 MLS/HR; Start 10/09/18 at 13:00 Polyethylene Glycol (Miralax) 17 gm BID PRN PO constipation; Start 10/10/18 at 22:00 Valproate Sodium (Depakene Liquid Cup) 750 mg Q8H GTB Last administered on 10/13/18at 04:24; Admin Dose 750 MG; Start 10/12/18 at 13:00 Sodium Bicarbonate 100 meq/Dextrose/ Sodium Chloride 1,000 ml @ 75 mls/hr [id number] IV Last administered on 10/13/18at 04:21; Admin Dose 75 MLS/HR; Start 10/12/18 at 14:00 Metoprolol Tartrate (Lopressor) 25 mg BID PO Last administered on 10/12/18at 20:25; Admin Dose 25 MG; Start 10/12/18 at 15:00 Metoprolol Tartrate (Lopressor) 5 mg Q4H PRN IV HR>110 Hold SBP<100; Start 10/12/18 at 15:00 Levetiracetam (Keppra) 750 mg BID GTB Last administered on 10/13/18at 08:38; Admin Dose 750 MG; Start 10/12/18 at 21:00 Assessment/Plan Hospital Course (Demo Recall) IMP: 1. Septic Shock: likely due to urosepsis continues to require vasopressors. 2. Respiratory Failure 2/2 #1 3. UMBERTO-- pre-renal vs. ATN 2/ #1 4. NSTEMI: type II 5. Afib with RVR--now in SR 6. Hypothyroidism 7. Remains encephalopathic with likely underlying history of significant dementia. 8. Anemia likely somewhat dilutional with chronic disease currently no active bleeding RECS: 1. Continue mechanical ventilation 2. Continue tube feeding as tolerated 3. Continue antibiotics, currently off vasopressors, currently improved 4. Renal recommendations regarding renal insufficiency metabolic acidosis improved. 5. Neuro recommendations regarding encephalopathy 6. Hold off on PRBC transfusion as currently patient is hemodynamically stable. If she requires vasopressors I would transfuse for another unit packed cells. Continue current supportive care critical care time 40 minutes prognosis is guarded Will likely need bioethics consultation regarding goals of care PETER ARAUZ MD, [facility] Oct 13, 2018 08:59
--- NOTE | 2018-10-13 13:23 | CONS ---
Assessment/Plan Assessment/Plan Assessment/Plan (Daily) - Hyperamnesia - monitor am Mag level - Hypernatremia - D5W at 50 cc x 2 Liters 1. Non Oliguric Acute kidney injury due to ATN from septic shock 2. Septic shock due to UTI 3. acute UTI with Urine Cx growing E.Coli 4. Acute hypoxic respiratory failure intubated on ventilator 5. H/o HTN 6 H/o HL 7. H/o Hypothyroidism 8. Bacteremia with blood cx 2/2 growing E.Coli 9. Tachycardia- Cardio follows; Digoxin, Amiodarone gtt, Heparin gtt Plan: pt remains intubated - BUN/Cr improved to 51/1.21 - urine output 1.4 liter in last 24 hr -HCo3 21- - no acute indication of HD at this time -Id following , IV abx for UTI and bacteremia , Renally dose all abx and monitor electrolytes -ventilator management as per Pulmonary will follow up Critical care time spent is 35 minutes. Further recommendations based on clinical course.Patient seen in collaboration with Dr Joni Davila Consultation Date/Type/Reason Admit Date/Time Oct 06, 2018 at 09:29 Initial Consult Date 10/06/18 Type of Consult NEPHROLOGY Requesting Provider: MANUEL ALEMAN Date/Time of Note DATE: 10/13/18 TIME: 13:17 24 HR Interval Summary Free Text/Dictation -NAD - intubated on vent; failed extubation - on pressors; Amiodarone; Heparin gtt - Mag- wnl - Na elevated - UO 1.4 L/24 hrs - no new issues reported last night Subjective hx not possible: pt non-verbal Constitutional: requiring IVF, requiring O2 Exam/Review of Systems Exam Vitals Vital Signs Date Temp Pulse Resp B/P (MAP) Pulse Ox O2 O2 Flow FiO2 Time Delivery Rate 10/13/18 131 20 106/81 100 Mechanical 13:00 (89) Ventilator 10/13/18 97.7 12:00 10/13/18 30 07:30 Intake and Output 10/12/18 10/12/18 10/13/18 1515:00 23:00 07:00 IntakeIntake Total 857.5 ml 2030.50 ml 1011.25 ml OutputOutput Total 510 ml 570 ml 275 ml BalanceBalance 347.5 ml 1460.50 ml 736.25 ml Constitutional: well developed, non-verbal, frail Psych: nl mood/affect Eyes: nl lids, nl sclera ENMT: nl external ears & nose Neck: other (ET tube intact) Respiratory: diminished breath sounds, other Cardiovascular: nl pulses, other Gastrointestinal: soft Musculoskeletal: muscle weakness Extremities: edema Neurological: unresponsive Results Result Diagram: 10/13/187 10/13/18446 Results 24hrs Laboratory Tests Test 10/12/18 18:58 10/13/18 04:47 10/13/18 11:33 Valproic Acid (Depakene) Level 61 57 White Blood Count 10.5 Red Blood Count 2.27 L Hemoglobin 7.2 L Hematocrit 21.8 L Mean Corpuscular Volume 96.0 Mean Corpuscular Hemoglobin 31.7 Mean Corpuscular 33.0 Hemoglobin Concent Red Cell Distribution Width 15.5 H Platelet Count 355 # Mean Platelet Volume 11.9 H Immature Granulocytes % 4.900 H Neutrophils % 71.6 Lymphocytes % 14.1 L Monocytes % 8.0 Eosinophils % 1.1 Basophils % 0.3 Nucleated Red Blood Cells % 0.0 Immature Granulocytes # 0.510 H Neutrophils # 7.5 Lymphocytes # 1.5 Monocytes # 0.8 Eosinophils # 0.1 Basophils # 0.0 Nucleated Red Blood Cells # 0.0 Activated Partial Thromboplast 49.5 H Time Sodium Level 147 H Potassium Level 3.5 Chloride Level 115 H Carbon Dioxide Level 21 Anion Gap 11 Blood Urea Nitrogen 51 H Creatinine 1.21 H Est Glomerular Filtrat Rate mL/min 44 L Glucose Level 117 Calcium Level 8.8 Phosphorus Level 3.3 Magnesium Level 1.9 Lab Scanned Report REFERENCE LAB Medications Medication Current Medications IV Flush (NS 3 ml) 3 ml PER PROTOCOL IV ; Start 10/06/18 at 09:30 Ondansetron HCl (Zofran Inj) 4 mg Q6H PRN IV NAUSEA/VOMITING; Start 10/06/18 at 09:30 Acetaminophen (Tylenol Tab) 650 mg Q6H PRN PO .PAIN 1-3 OR TEMP Last administered on 10/12/18at 08:27; Admin Dose 650 MG; Start 10/06/18 at 09:30 Acetaminophen/ Hydrocodone Bitart ([place] (5/325)) 1 tab Q6H PRN PO .MOD PAIN 4- 6; Start 10/06/18 at 09:30 Morphine Sulfate (morphine) 2 mg Q4H PRN IV .SEVERE PAIN 7-10 Last administered on 10/12/18 23:00; Admin Dose 2 MG; Start 10/06/18 at 09:30 Docusate Sodium (Colace) 100 mg Q12H PRN PO .CONSTIPATION; Start 10/06/18 at 09:30 Magnesium Hydroxide (Milk Of Mag) 30 ml DAILY PRN PO .CONSTIPATION; Start 10/06/18 at 09:30 Lorazepam (Ativan) 0.5 mg Q6H PRN IV ANXIETY Last administered on 10/13/18 12:42; Admin Dose 0.5 MG; Start 10/06/18 at 09:30 Albuterol/ Ipratropium (Duoneb) 3 ml Q4H RESP THERAPY PRN HHN SHORTNESS OF BREATH; Start 10/06/18 at 09:30 Nitroglycerin (Nitroglycerin (Sl Tab) 0.4 Mg) 1 tab Q5M PRN SL ANGINA; Start 10/06/18 at 09:30 Bisacodyl (Dulcolax) 10 mg DAILY PRN PO CONSTIPATION; Start 10/06/18 at 09:30 Donepezil HCl (Aricept) 5 mg QHS PO Last administered on 10/12/18 20:26; Admin Dose 5 MG; Start 10/06/18 at 21:00 Lactulose (Enulose) 20 gm TID PRN PO CONSTIPATION; Start 10/06/18 at 09:30 Levothyroxine Sodium (Synthroid) 50 mcg BEFORE BREAKFAST PO Last administered on 10/13/18 06:37; Admin Dose 50 MCG; Start 10/07/18 at 07:00 Mineral Oil (Fleet Mineral Oil Enema) 133 ml DAILY PRN [place] CONSTIPATION; Start 10/06/18 at 09:30 Multivitamins Therapeutic (Theragran) 1 tab DAILY PO Last administered on 10/13/18 08:28; Admin Dose 1 TAB; Start 10/07/18 at 09:00 Norepinephrine 32 mg/Dextrose 250 ml @ 0.47 mls/hr TITRATE IV Last administered on 10/08/18 12:53; Admin Dose 4.69 MLS/HR; Start 10/06/18 at 11:30 Aspirin (Aspirin) 81 mg DAILY NGT Last administered on 10/11/18 09:35; Admin Dose 81 MG; Start 10/06/18 at 12:30; Status Hold Heparin Sodium (Porcine) (Heparin (1000 Units/ml)) 4,000 unit PER PROTOCOL PRN IV aPTT<47; Start 10/06/18 at 12:30 Heparin Sodium (Porcine) 250 ml @ 8 mls/hr PER PROTOCOL IV Last administered on 10/13/18 06:56; Admin Dose 11.5 MLS/HR; Start 10/06/18 at 12:30 Atorvastatin Calcium (Lipitor) 40 mg DAILY@21 NGT Last administered on 10/12/18 20:25; Admin Dose 40 MG; Start 10/06/18 at 21:00 Miscellaneous Information (Flu Vaccine Previously Dispensed) FLU VACCINE PREVIOU... NOTE PRN XX NOTE; Start 10/06/18 at 18:00 Meropenem/Sodium Chloride 50 ml @ 100 mls/hr Q12 IVPB Last administered on 10/13/18 08:27; Admin Dose 100 MLS/HR; Start 10/07/18 at 12:00 Midazolam HCl 50 ml @ 0 mls/hr TITRATE IV Last administered on 10/09/18 22:21; Admin Dose 3 MLS/HR; Start 10/08/18 at 10:00 Linezolid 300 ml @ 300 mls/hr Q12 IVPB Last administered on 10/13/18 08:28; Admin Dose 300 MLS/HR; Start 10/08/18 at 12:30 Fentanyl 100 ml @ 2.5 mls/hr TITRATE IV Last administered on 10/10/18 01:01; Admin Dose 2.5 MLS/HR; Start 10/08/18 at 16:30 Lorazepam (Ativan) 1 mg Q6H PRN IV seizure Last administered on 10/11/18 15:22; Admin Dose 1 MG; Start 10/08/18 at 16:00 Amiodarone HCl (Cordarone) 200 mg BID PO Last administered on 10/13/18 08:28; Admin Dose 200 MG; Start 10/09/18 at 21:00 Famotidine (Pepcid) 20 mg DAILY NGT Last administered on 10/13/18 08:28; Admin Dose 20 MG; Start 10/10/18 at 09:00 Phenylephrine HCl 250 ml @ 75 mls/hr TITRATE IV Last administered on 10/12/18 01:38; Admin Dose 6 MLS/HR; Start 10/09/18 at 13:00 Polyethylene Glycol (Miralax) 17 gm BID PRN PO constipation; Start 10/10/18 at 22:00 Valproate Sodium (Depakene Liquid Cup) 750 mg Q8H GTB Last administered on 10/13/18 04:24; Admin Dose 750 MG; Start 10/12/18 at 13:00 Sodium Bicarbonate 100 meq/Dextrose/ Sodium Chloride 1,000 ml @ 75 mls/hr [id number] IV Last administered on 10/13/18 04:21; Admin Dose 75 MLS/HR; Start 10/12/18 at 14:00 Metoprolol Tartrate (Lopressor) 25 mg BID PO Last administered on 10/12/18at 20:25; Admin Dose 25 MG; Start 10/12/18 at 15:00 Metoprolol Tartrate (Lopressor) 5 mg Q4H PRN IV HR>110 Hold SBP<100; Start 10/12/18 at 15:00 Levetiracetam (Keppra) 750 mg BID GTB Last administered on 10/13/18 08:38; Admin Dose 750 MG; Start 10/12/18 at 21:00 ALEXI SINGH Oct 13, 2018 13:23
--- NOTE | 2018-10-13 14:24 | CONS ---
Assessment/Plan Assessment/Plan Hospital Course (Demo Recall) Patient failed weaning yesterday, she remains obtunded on very low-dose of Rafita- Synephrine drip in atrial fibrillation, no fevers WBC 10.5 H&H 7.2 and 21.8 platelets 355 neutrophils 71.6 BUN 51 creatinine 1.21 Microbiology: Blood and urine cultures growing E. coli Chest x-ray 10/11/18 revealed increased right basilar infiltrate concerning for pneumonia Indwelling: Endotracheal tube NG tube Piña catheter right IJ triple-lumen catheter Allergy: Penicillin, clindamycin Antibiotics: Merrem Zyvox Physical examination: Well-developed chronically ill-appearing elderly woman. The patient is in no distress. Head atraumatic normocephalic. Neck is supple. Chest rise symmetrical, breath sounds diminished bases. Heart: S1-S2, tachycardic, irregular. Abdomen soft bowel sounds hypoactive. Extremities mottled cyanotic Assessment: 1. Sepsis with shock 2. E coli bacteremia secondary to urinary tract infection 3. Acute hypoxemic respiratory failure 4. Healthcare associated pneumonia, possibly aspiration 4. Acute possibly on chronic kidney disease 5. Non-ST elevation OR 6. Atrial fibrillation with RVR Plan: Clinically unchanged, repeat blood cultures negative. Continue present care, DC Zyvox, follow recommendations of specialists Consultation Date/Type/Reason Admit Date/Time Oct 06, 2018 at 09:29 Initial Consult Date 10/06/18 Type of Consult id Requesting Provider: MANUEL ALEMAN Date/Time of Note DATE: 10/13/18 TIME: 14:23 Exam/Review of Systems Exam Vitals Vital Signs Date Temp Pulse Resp B/P (MAP) Pulse Ox O2 O2 Flow FiO2 Time Delivery Rate 10/13/18 131 20 106/81 100 Mechanical 13:00 (89) Ventilator 10/13/18 30 12:00 10/13/18 97.7 12:00 Intake and Output 10/12/18 10/12/18 10/13/18 1515:00 23:00 07:00 IntakeIntake Total 857.5 ml 2030.50 ml 1066.25 ml OutputOutput Total 510 ml 570 ml 325 ml BalanceBalance 347.5 ml 1460.50 ml 741.25 ml Results Result Diagram: 10/13/18 0447 10/13/18 0447 Results 24hrs Laboratory Tests Test 10/12/18 18:58 10/13/18 04:47 10/13/18 11:33 Valproic Acid (Depakene) Level 61 57 White Blood Count 10.5 Red Blood Count 2.27 L Hemoglobin 7.2 L Hematocrit 21.8 L Mean Corpuscular Volume 96.0 Mean Corpuscular Hemoglobin 31.7 Mean Corpuscular 33.0 Hemoglobin Concent Red Cell Distribution Width 15.5 H Platelet Count 355 # Mean Platelet Volume 11.9 H Immature Granulocytes % 4.900 H Neutrophils % 71.6 Lymphocytes % 14.1 L Monocytes % 8.0 Eosinophils % 1.1 Basophils % 0.3 Nucleated Red Blood Cells % 0.0 Immature Granulocytes # 0.510 H Neutrophils # 7.5 Lymphocytes # 1.5 Monocytes # 0.8 Eosinophils # 0.1 Basophils # 0.0 Nucleated Red Blood Cells # 0.0 Activated Partial Thromboplast 49.5 H Time Sodium Level 147 H Potassium Level 3.5 Chloride Level 115 H Carbon Dioxide Level 21 Anion Gap 11 Blood Urea Nitrogen 51 H Creatinine 1.21 H Est Glomerular Filtrat Rate mL/min 44 L Glucose Level 117 Calcium Level 8.8 Phosphorus Level 3.3 Magnesium Level 1.9 Lab Scanned Report REFERENCE LAB Medications Medication Current Medications IV Flush (NS 3 ml) 3 ml PER PROTOCOL IV ; Start 10/06/18 at 09:30 Ondansetron HCl (Zofran Inj) 4 mg Q6H PRN IV NAUSEA/VOMITING; Start 10/06/18 at 09:30 Acetaminophen (Tylenol Tab) 650 mg Q6H PRN PO .PAIN 1-3 OR TEMP Last administe red on 10/12/18at 08:27; Admin Dose 650 MG; Start 10/06/18 at 09:30 Acetaminophen/ Hydrocodone Bitart ([place] (5/325)) 1 tab Q6H PRN PO .MOD PAIN 4- 6; Start 10/06/18 at 09:30 Morphine Sulfate (morphine) 2 mg Q4H PRN IV .SEVERE PAIN 7-10 Last administered on 10/12/18at 23:00; Admin Dose 2 MG; Start 10/06/18 at 09:30 Docusate Sodium (Colace) 100 mg Q12H PRN PO .CONSTIPATION; Start 10/06/18 at 09:30 Magnesium Hydroxide (Milk Of Mag) 30 ml DAILY PRN PO .CONSTIPATION; Start 10/06/18 at 09:30 Lorazepam (Ativan) 0.5 mg Q6H PRN IV ANXIETY Last administered on 10/13/18 12:42; Admin Dose 0.5 MG; Start 10/06/18 at 09:30 Albuterol/ Ipratropium (Duoneb) 3 ml Q4H RESP THERAPY PRN HHN SHORTNESS OF BREATH; Start 10/06/18 at 09:30 Nitroglycerin (Nitroglycerin (Sl Tab) 0.4 Mg) 1 tab Q5M PRN SL ANGINA; Start 10/06/18 at 09:30 Bisacodyl (Dulcolax) 10 mg DAILY PRN PO CONSTIPATION; Start 10/06/18 at 09:30 Donepezil HCl (Aricept) 5 mg QHS PO Last administered on 10/12/18 20:26; Admin Dose 5 MG; Start 10/06/18 at 21:00 Lactulose (Enulose) 20 gm TID PRN PO CONSTIPATION; Start 10/06/18 at 09:30 Levothyroxine Sodium (Synthroid) 50 mcg BEFORE BREAKFAST PO Last administered on 10/13/18 06:37; Admin Dose 50 MCG; Start 10/07/18 at 07:00 Mineral Oil (Fleet Mineral Oil Enema) 133 ml DAILY PRN [place] CONSTIPATION; Start 10/06/18 at 09:30 Multivitamins Therapeutic (Theragran) 1 tab DAILY PO Last administered on 10/13/18 08:28; Admin Dose 1 TAB; Start 10/07/18 at 09:00 Norepinephrine 32 mg/Dextrose 250 ml @ 0.47 mls/hr TITRATE IV Last administered on 10/08/18 12:53; Admin Dose 4.69 MLS/HR; Start 10/06/18 at 11:30 Aspirin (Aspirin) 81 mg DAILY NGT Last administered on 10/11/18 09:35; Admin Dose 81 MG; Start 10/06/18 at 12:30; Status Hold Heparin Sodium (Porcine) (Heparin (1000 Units/ml)) 4,000 unit PER PROTOCOL PRN IV aPTT<47; Start 10/06/18 at 12:30 Heparin Sodium (Porcine) 250 ml @ 8 mls/hr PER PROTOCOL IV Last administered on 3/10/19at 06:56; Admin Dose 11.5 MLS/HR; Start 10/06/18 at 12:30 Atorvastatin Calcium (Lipitor) 40 mg DAILY@21 NGT Last administered on 10/12/18 20:25; Admin Dose 40 MG; Start 10/06/18 at 21:00 Miscellaneous Information (Flu Vaccine Previously Dispensed) FLU VACCINE PREVIOU... NOTE PRN XX NOTE; Start 10/06/18 at 18:00 Meropenem/Sodium Chloride 50 ml @ 100 mls/hr Q12 IVPB Last administered on 10/13/18 08:27; Admin Dose 100 MLS/HR; Start 10/07/18 at 12:00 Midazolam HCl 50 ml @ 0 mls/hr TITRATE IV Last administered on 10/09/18 22:21; Admin Dose 3 MLS/HR; Start 10/08/18 at 10:00 Linezolid 300 ml @ 300 mls/hr Q12 IVPB Last administered on 10/13/18 08:28; Admin Dose 300 MLS/HR; Start 10/08/18 at 12:30 Fentanyl 100 ml @ 2.5 mls/hr TITRATE IV Last administered on 10/10/18 01:01; Admin Dose 2.5 MLS/HR; Start 10/08/18 at 16:30 Lorazepam (Ativan) 1 mg Q6H PRN IV seizure Last administered on 10/11/18 15:22; Admin Dose 1 MG; Start 10/08/18 at 16:00 Amiodarone HCl (Cordarone) 200 mg BID PO Last administered on 10/13/18 08:28; Admin Dose 200 MG; Start 10/09/18 at 21:00 Famotidine (Pepcid) 20 mg DAILY NGT Last administered on 10/13/18 08:28; Admin Dose 20 MG; Start 10/10/18 at 09:00 Phenylephrine HCl 250 ml @ 75 mls/hr TITRATE IV Last administered on 10/12/18 01:38; Admin Dose 6 MLS/HR; Start 10/09/18 at 13:00 Polyethylene Glycol (Miralax) 17 gm BID PRN PO constipation; Start 10/10/18 at 22:00 Valproate Sodium (Depakene Liquid Cup) 750 mg Q8H GTB Last administered on 10/13/18 14:03; Admin Dose 750 MG; Start 10/12/18 at 13:00 Sodium Bicarbonate 100 meq/Dextrose/ Sodium Chloride 1,000 ml @ 75 mls/hr [id number] IV Last administered on 10/13/18 04:21; Admin Dose 75 MLS/HR; Start 10/12/18 at 14:00 Metoprolol Tartrate (Lopressor) 25 mg BID PO Last administered on 10/12/18at 20:25; Admin Dose 25 MG; Start 10/12/18 at 15:00 Metoprolol Tartrate (Lopressor) 5 mg Q4H PRN IV HR>110 Hold SBP<100; Start 10/12/18 at 15:00 Levetiracetam (Keppra) 750 mg BID GTB Last administered on 10/13/18at 08:38; Admin Dose 750 MG; Start 10/12/18 at 21:00 MARKOS BRADY NP Oct 13, 2018 14:24
--- NOTE | 2018-10-13 14:34 | CONS ---
Assessment/Plan Assessment/Plan Hospital Course (Demo Recall) IMP: 1. Nstemi- in setting of renal failure and shock. Downtrended 2.Shock-on levo 3.Tachycardia-S tach at this time 4.UTI 5.PAF with RVR-now back in SR this AM 6.Renal failure 7.Dyslipidemia 8.Sz d/o 9. Hypothyroid 10. anemia-slight worsening Recc: -ICU -BB as tolerated only -Follow rhythm and rate closely -ok to change heparin to NOAC eliquis/xarelto for AF/AFL -Continue abx's and f/u cx data -Continue statin -now in SR on po amio. Will follow rhythm clsoely Consultation Date/Type/Reason Admit Date/Time Oct 06, 2018 at 09:29 Initial Consult Date 10/06/18 Type of Consult Cardiology Reason for Consultation hypotension/AF Requesting Provider: MANUEL ALEMAN Date/Time of Note DATE: 10/13/18 TIME: 14:31 Exam/Review of Systems Vital Signs Vitals Vital Signs Date Temp Pulse Resp B/P (MAP) Pulse Ox O2 O2 Flow FiO2 Time Delivery Rate 10/13/18 131 20 106/81 100 Mechanical 13:00 (89) Ventilator 10/13/18 30 12:00 10/13/18 97.7 12:00 Intake and Output 10/12/18 10/12/18 10/13/18 1515:00 23:00 07:00 IntakeIntake Total 857.5 ml 2030.50 ml 1066.25 ml OutputOutput Total 510 ml 570 ml 325 ml BalanceBalance 347.5 ml 1460.50 ml 741.25 ml Exam Exam Review of Systems: CONSTITUTIONAL: No fevers, chills. PULMONARY: intubated CARDIOVASCULAR: No chest pain/palpitations GASTROINTESTINAL: No nausea/vomiting. GENITOURINARY: No hematuria/dysuria. MUSCULOSKELETAL: No myagias/arthalgias. PSYCHIATRIC: The patient denies depression. NEUROLOGIC: No weakness Constitutional: other (sedated) Psych: no complaints Head: normocephalic ENMT: mucosa pink and moist Neck: supple, jvd (9 cm water) Respiratory: diminished breath sounds (at bases/B) Cardiovascular: regular rate and rhythm Gastrointestinal: soft, non-tender Musculoskeletal: muscle weakness (generalized) Extremities: edema (none) Neurological: other (sedated) Labs Result Diagram: 10/13/187 10/13/187 Results 24hrs Laboratory Tests Test 10/12/18 18:58 10/13/18 04:47 10/13/18 11:33 Valproic Acid (Depakene) Level 61 57 White Blood Count 10.5 Red Blood Count 2.27 L Hemoglobin 7.2 L Hematocrit 21.8 L Mean Corpuscular Volume 96.0 Mean Corpuscular Hemoglobin 31.7 Mean Corpuscular 33.0 Hemoglobin Concent Red Cell Distribution Width 15.5 H Platelet Count 355 # Mean Platelet Volume 11.9 H Immature Granulocytes % 4.900 H Neutrophils % 71.6 Lymphocytes % 14.1 L Monocytes % 8.0 Eosinophils % 1.1 Basophils % 0.3 Nucleated Red Blood Cells % 0.0 Immature Granulocytes # 0.510 H Neutrophils # 7.5 Lymphocytes # 1.5 Monocytes # 0.8 Eosinophils # 0.1 Basophils # 0.0 Nucleated Red Blood Cells # 0.0 Activated Partial Thromboplast 49.5 H Time Sodium Level 147 H Potassium Level 3.5 Chloride Level 115 H Carbon Dioxide Level 21 Anion Gap 11 Blood Urea Nitrogen 51 H Creatinine 1.21 H Est Glomerular Filtrat Rate mL/min 44 L Glucose Level 117 Calcium Level 8.8 Phosphorus Level 3.3 Magnesium Level 1.9 Lab Scanned Report REFERENCE LAB Medications Medications Current Medications IV Flush (NS 3 ml) 3 ml PER PROTOCOL IV ; Start 10/06/18 at 09:30 Ondansetron HCl (Zofran Inj) 4 mg Q6H PRN IV NAUSEA/VOMITING; Start 10/06/18 at 09:30 Acetaminophen (Tylenol Tab) 650 mg Q6H PRN PO .PAIN 1-3 OR TEMP Last administered on 10/12/18at 08:27; Admin Dose 650 MG; Start 10/06/18 at 09:30 Acetaminophen/ Hydrocodone Bitart ([place] (5/325)) 1 tab Q6H PRN PO .MOD PAIN 4- 6; Start 10/06/18 at 09:30 Morphine Sulfate (morphine) 2 mg Q4H PRN IV .SEVERE PAIN 7-10 Last administered on 10/12/18at 23:00; Admin Dose 2 MG; Start 10/06/18 at 09:30 Docusate Sodium (Colace) 100 mg Q12H PRN PO .CONSTIPATION; Start 10/06/18 at 09:30 Magnesium Hydroxide (Milk Of Mag) 30 ml DAILY PRN PO .CONSTIPATION; Start 10/06/18 at 09:30 Lorazepam (Ativan) 0.5 mg Q6H PRN IV ANXIETY Last administered on 10/13/18 12:42; Admin Dose 0.5 MG; Start 10/06/18 at 09:30 Albuterol/ Ipratropium (Duoneb) 3 ml Q4H RESP THERAPY PRN HHN SHORTNESS OF BREATH; Start 10/06/18 at 09:30 Nitroglycerin (Nitroglycerin (Sl Tab) 0.4 Mg) 1 tab Q5M PRN SL ANGINA; Start 10/06/18 at 09:30 Bisacodyl (Dulcolax) 10 mg DAILY PRN PO CONSTIPATION; Start 10/06/18 at 09:30 Donepezil HCl (Aricept) 5 mg QHS PO Last administered on 10/12/18 20:26; Admin Dose 5 MG; Start 10/06/18 at 21:00 Lactulose (Enulose) 20 gm TID PRN PO CONSTIPATION; Start 10/06/18 at 09:30 Levothyroxine Sodium (Synthroid) 50 mcg BEFORE BREAKFAST PO Last administered on 10/13/18 06:37; Admin Dose 50 MCG; Start 10/07/18 at 07:00 Mineral Oil (Fleet Mineral Oil Enema) 133 ml DAILY PRN [place] CONSTIPATION; Start 10/06/18 at 09:30 Multivitamins Therapeutic (Theragran) 1 tab DAILY PO Last administered on 10/13/18 08:28; Admin Dose 1 TAB; Start 10/07/18 at 09:00 Norepinephrine 32 mg/Dextrose 250 ml @ 0.47 mls/hr TITRATE IV Last administered on 10/08/18 12:53; Admin Dose 4.69 MLS/HR; Start 10/06/18 at 11:30 Aspirin (Aspirin) 81 mg DAILY NGT Last administered on 10/11/18 09:35; Admin Dose 81 MG; Start 10/06/18 at 12:30; Status Hold Heparin Sodium (Porcine) (Heparin (1000 Units/ml)) 4,000 unit PER PROTOCOL PRN IV aPTT<47; Start 10/06/18 at 12:30 Heparin Sodium (Porcine) 250 ml @ 8 mls/hr PER PROTOCOL IV Last administered on 10/13/18 06:56; Admin Dose 11.5 MLS/HR; Start 10/06/18 at 12:30 Atorvastatin Calcium (Lipitor) 40 mg DAILY@21 NGT Last administered on 10/12/18 20:25; Admin Dose 40 MG; Start 10/06/18 at 21:00 Miscellaneous Information (Flu Vaccine Previously Dispensed) FLU VACCINE PREVIOU... NOTE PRN XX NOTE; Start 10/06/18 at 18:00 Meropenem/Sodium Chloride 50 ml @ 100 mls/hr Q12 IVPB Last administered on 10/13/18 08:27; Admin Dose 100 MLS/HR; Start 10/07/18 at 12:00 Midazolam HCl 50 ml @ 0 mls/hr TITRATE IV Last administered on 10/09/18 22:21; Admin Dose 3 MLS/HR; Start 10/08/18 at 10:00 Fentanyl 100 ml @ 2.5 mls/hr TITRATE IV Last administered on 10/10/18 01:01; Admin Dose 2.5 MLS/HR; Start 10/08/18 at 16:30 Lorazepam (Ativan) 1 mg Q6H PRN IV seizure Last administered on 10/11/18 15:22; Admin Dose 1 MG; Start 10/08/18 at 16:00 Amiodarone HCl (Cordarone) 200 mg BID PO Last administered on 10/13/18 08:28; Admin Dose 200 MG; Start 10/09/18 at 21:00 Famotidine (Pepcid) 20 mg DAILY NGT Last administered on 10/13/18 08:28; Admin Dose 20 MG; Start 10/10/18 at 09:00 Phenylephrine HCl 250 ml @ 75 mls/hr TITRATE IV Last administered on 10/12/18 01:38; Admin Dose 6 MLS/HR; Start 10/09/18 at 13:00 Polyethylene Glycol (Miralax) 17 gm BID PRN PO constipation; Start 10/10/18 at 22:00 Valproate Sodium (Depakene Liquid Cup) 750 mg Q8H GTB Last administered on 10/13/18 14:03; Admin Dose 750 MG; Start 10/12/18 at 13:00 Sodium Bicarbonate 100 meq/Dextrose/ Sodium Chloride 1,000 ml @ 75 mls/hr [id number] IV Last administered on 10/13/18at 04:21; Admin Dose 75 MLS/HR; Start 10/12/18 at 14:00 Metoprolol Tartrate (Lopressor) 25 mg BID PO Last administered on 10/12/18at 20:25; Admin Dose 25 MG; Start 10/12/18 at 15:00 Metoprolol Tartrate (Lopressor) 5 mg Q4H PRN IV HR>110 Hold SBP<100; Start 10/12/18 at 15:00 Levetiracetam (Keppra) 750 mg BID GTB Last administered on 10/13/18at 08:38; Admin Dose 750 MG; Start 10/12/18 at 21:00 ANGELA CARY Oct 13, 2018 14:34
--- NOTE | 2018-10-13 15:32 | PN ---
Date/Time of Note Date/Time of Note DATE: 10/13/18 TIME: 15:28 Assessment/Plan VTE Prophylaxis Risk score (from Ns)>0 risk: 8 SCD applied (from [facility] [place] Yes Pharmacological prophylaxis: heparin Lines/Catheters IV Catheter Type (from [facility]): Central Line Central line still needed: Yes Urinary Cath still in place: Yes Reason Cath still needed: other (indicate) (intubated) Assessment/Plan Assessment/Plan A 67-year-old female coming in with signs of septic shock, likely secondary to urinary tract infection and pneumonia, elevated troponins, acute renal insufficiency, now intubated on pressor support. Also, with atrial fibrillation with rapid ventricular response, now in normal sinus rhythm. #Septic shock - Dr. Sanford following. - Likely due to UTI. - Urine cultures and Blood cultures growing E Coli x2. - Now off vasopressors. - Tylenol p.r.n. pain and fevers. #Seizure - Continue keppra - Morning of 10/08 had whole body twitching concerning for seizures; got Ativan then Versed. Again on 10/11 had a similar episode broken with Ativan. - EEG appears to have localized lesion but CT head is negative. Neuro following. - Will hold versed. - Pending MRI brain. # NSTEMI - Unclear if this is true non-ST elevation myocardial infarction versus demand ischemia. - Continue high dose aspirin. - She is also on Lipitor. - s/p heparin gtt - Dr. Mello consulted. #A fib with RVR, paroxysmal - Dr. Mello following - Converted to normal sinus after getting Cardizem in ED - Now on amiodarone gtt and digoxin - Back in A fib. - Anticoag on heparin gtt. # Renal insufficiency - improving - Dr. Davila consulted - Not anuric # Hypothyroidism - Continue current thyroid medicines. - Low TSH, normal fT4 consistent with sick euthyroid syndrome. # History of dementia. Continue Aricept for now. # History of high cholesterol. - Cont statin # Gastrointestinal prophylaxis. Add H2 panda. # Deep venous thrombosis prophylaxis. She is on heparin drip. 45 minutes critical care time spent on this patient. Result Diagram: 10/13/1844610/13/18446 Subjective 24 Hr Interval Summary Free Text/Dictation Last night around 5 pm and this morning when I was in the room around 9 am she had rhythmic movements of L shoulder. She was still breathing spontaneously on ventilator. Tongue was also moving around in her mouth erratically. To me it looked like a tremor, not seizure activity. The movements this morning resolved spontaneously. Not extubated yesterday due to increased secretions. Exam/Review of Systems Exam Vitals Vital Signs Date Temp Pulse Resp B/P (MAP) Pulse Ox O2 O2 Flow FiO2 Time Delivery Rate 10/13/18 131 20 106/81 100 Mechanical 13:00 (89) Ventilator 10/13/18 30 12:00 10/13/18 97.7 12:00 Intake and Output 10/12/18 10/12/18 10/13/18 1515:00 23:00 07:00 IntakeIntake Total 857.5 ml 2030.50 ml 1066.25 ml OutputOutput Total 510 ml 570 ml 325 ml BalanceBalance 347.5 ml 1460.50 ml 741.25 ml Exam GENERAL: Well developed woman lying in bed, intubated. HEENT: Moist mucous membranes, ET tube in place. NECK: Supple, no thyromegaly. LUNGS: Mechanical breath sounds equal bilaterally. CARDIOVASCULAR: S1, S2 heard. No rubs or gallops. ABDOMEN: Soft, nontender, nondistended. Normal bowel sounds. No rebound or guarding. MUSCULOSKELETAL: No lower extremity edema bilaterally. Results Results 24hrs Laboratory Tests Test 10/12/18 18:58 10/13/18 04:47 10/13/18 11:33 10/13/18 13:11 Valproic Acid 61 57 (Depakene) Level White Blood Count 10.5 Red Blood Count 2.27 L Hemoglobin 7.2 L Hematocrit 21.8 L Mean Corpuscular 96.0 Volume Mean Corpuscular 31.7 Hemoglobin Mean Corpuscular 33.0 Hemoglobin Concent Red Cell 15.5 H Distribution Width Platelet Count 355 # Mean Platelet 11.9 H Volume Immature 4.900 H Granulocytes % Neutrophils % 71.6 Lymphocytes % 14.1 L Monocytes % 8.0 Eosinophils % 1.1 Basophils % 0.3 Nucleated Red Blood 0.0 Cells % Immature 0.510 H Granulocytes # Neutrophils # 7.5 Lymphocytes # 1.5 Monocytes # 0.8 Eosinophils # 0.1 Basophils # 0.0 Nucleated Red Blood 0.0 Cells # Activated 49.5 H > 180.0 *H Partial Thromboplas t Time Sodium Level 147 H Potassium Level 3.5 Chloride Level 115 H Carbon Dioxide 21 Level Anion Gap 11 Blood Urea Nitrogen 51 H Creatinine 1.21 H Est Glomerular 44 L Filtrat Rate mL/min Glucose Level 117 Calcium Level 8.8 Phosphorus Level 3.3 Magnesium Level 1.9 Lab Scanned Report REFERENCE LAB Medications Medication Current Medications IV Flush (NS 3 ml) 3 ml PER PROTOCOL IV ; Start 10/06/18 at 09:30 Ondansetron HCl (Zofran Inj) 4 mg Q6H PRN IV NAUSEA/VOMITING; Start 10/06/18 at 09:30 Acetaminophen (Tylenol Tab) 650 mg Q6H PRN PO .PAIN 1-3 OR TEMP Last administered on 10/12/18 08:27; Admin Dose 650 MG; Start 10/06/18 at 09:30 Acetaminophen/ Hydrocodone Bitart ([place] (5/325)) 1 tab Q6H PRN PO .MOD PAIN 4- 6; Start 10/06/18 at 09:30 Morphine Sulfate (morphine) 2 mg Q4H PRN IV .SEVERE PAIN 7-10 Last administered on 10/12/18at 23:00; Admin Dose 2 MG; Start 10/06/18 at 09:30 Docusate Sodium (Colace) 100 mg Q12H PRN PO .CONSTIPATION; Start 10/06/18 at 09:30 Magnesium Hydroxide (Milk Of Mag) 30 ml DAILY PRN PO .CONSTIPATION; Start 10/06/18 at 09:30 Lorazepam (Ativan) 0.5 mg Q6H PRN IV ANXIETY Last administered on 10/13/18at 12:42; Admin Dose 0.5 MG; Start 10/06/18 at 09:30 Albuterol/ Ipratropium (Duoneb) 3 ml Q4H RESP THERAPY PRN HHN SHORTNESS OF BREATH; Start 10/06/18 at 09:30 Nitroglycerin (Nitroglycerin (Sl Tab) 0.4 Mg) 1 tab Q5M PRN SL ANGINA; Start 10/06/18 at 09:30 Bisacodyl (Dulcolax) 10 mg DAILY PRN PO CONSTIPATION; Start 10/06/18 at 09:30 Donepezil HCl (Aricept) 5 mg QHS PO Last administered on 10/12/18at 20:26; Admin Dose 5 MG; Start 10/06/18 at 21:00 Lactulose (Enulose) 20 gm TID PRN PO CONSTIPATION; Start 10/06/18 at 09:30 Levothyroxine Sodium (Synthroid) 50 mcg BEFORE BREAKFAST PO Last administered on 10/13/18 06:37; Admin Dose 50 MCG; Start 10/07/18 at 07:00 Mineral Oil (Fleet Mineral Oil Enema) 133 ml DAILY PRN [place] CONSTIPATION; Start 10/06/18 at 09:30 Multivitamins Therapeutic (Theragran) 1 tab DAILY PO Last administered on 10/13/18 08:28; Admin Dose 1 TAB; Start 10/07/18 at 09:00 Norepinephrine 32 mg/Dextrose 250 ml @ 0.47 mls/hr TITRATE IV Last administered on 10/08/18 12:53; Admin Dose 4.69 MLS/HR; Start 10/06/18 at 11:30 Aspirin (Aspirin) 81 mg DAILY NGT Last administered on 10/11/18 09:35; Admin Dose 81 MG; Start 10/06/18 at 12:30; Status Hold Heparin Sodium (Porcine) (Heparin (1000 Units/ml)) 4,000 unit PER PROTOCOL PRN IV aPTT<47; Start 10/06/18 at 12:30 Heparin Sodium (Porcine) 250 ml @ 8 mls/hr PER PROTOCOL IV Last administered on 10/13/18 06:56; Admin Dose 11.5 MLS/HR; Start 10/06/18 at 12:30 Atorvastatin Calcium (Lipitor) 40 mg DAILY@21 NGT Last administered on 10/12/18 20:25; Admin Dose 40 MG; Start 10/06/18 at 21:00 Miscellaneous Information (Flu Vaccine Previously Dispensed) FLU VACCINE PREVIOU... NOTE PRN XX NOTE; Start 10/06/18 at 18:00 Meropenem/Sodium Chloride 50 ml @ 100 mls/hr Q12 IVPB Last administered on 10/13/18 08:27; Admin Dose 100 MLS/HR; Start 10/07/18 at 12:00 Midazolam HCl 50 ml @ 0 mls/hr TITRATE IV Last administered on 10/09/18 22:21; Admin Dose 3 MLS/HR; Start 10/08/18 at 10:00 Fentanyl 100 ml @ 2.5 mls/hr TITRATE IV Last administered on 10/10/18 01:01; Admin Dose 2.5 MLS/HR; Start 10/08/18 at 16:30 Lorazepam (Ativan) 1 mg Q6H PRN IV seizure Last administered on 10/11/18 15:22; Admin Dose 1 MG; Start 10/08/18 at 16:00 Amiodarone HCl (Cordarone) 200 mg BID PO Last administered on 10/13/18 08:28; Admin Dose 200 MG; Start 10/09/18 at 21:00 Famotidine (Pepcid) 20 mg DAILY NGT Last administered on 10/13/18 08:28; Admin Dose 20 MG; Start 10/10/18 at 09:00 Phenylephrine HCl 250 ml @ 75 mls/hr TITRATE IV Last administered on 10/12/18 01:38; Admin Dose 6 MLS/HR; Start 10/09/18 at 13:00 Polyethylene Glycol (Miralax) 17 gm BID PRN PO constipation; Start 10/10/18 at 22:00 Valproate Sodium (Depakene Liquid Cup) 750 mg Q8H GTB Last administered on 10/13/18 14:03; Admin Dose 750 MG; Start 10/12/18 at 13:00 Sodium Bicarbonate 100 meq/Dextrose/ Sodium Chloride 1,000 ml @ 75 mls/hr [id number] IV Last administered on 10/13/18 04:21; Admin Dose 75 MLS/HR; Start 10/12/18 at 14:00 Metoprolol Tartrate (Lopressor) 25 mg BID PO Last administered on 10/12/18 20:25; Admin Dose 25 MG; Start 10/12/18 at 15:00 Metoprolol Tartrate (Lopressor) 5 mg Q4H PRN IV HR>110 Hold SBP<100; Start 10/12/18 at 15:00 Levetiracetam (Keppra) 750 mg BID GTB Last administered on 10/13/18 08:38; Admin Dose 750 MG; Start 10/12/18 at 21:00 ANGELA MOSQUERA MD Oct 13, 2018 15:32
[2018-10-13] MEDS: ATORVASTATIN 40 MG TAB NGT SCH (20:25)
[2018-10-13] MEDS: DONEPEZIL 5 MG TAB PO SCH (20:25)
[2018-10-14] VITALS (43 sets, daily range): BP systolic 85–137; BP diastolic 42–98; PULSE 66–92; RESP 15–29
[2018-10-14] MEDS: LORAZEPAM 2 MG INJ IV PRN ×3 (02:16→22:19)
[2018-10-14] MEDS: VALPROIC ACID LIQUID CUP 250 MG/5 ML CUP GTB SCH ×3 (04:59→20:22)
[2018-10-14] MEDS: LEVOTHYROXINE 50 MCG TAB PO SCH (06:25)
[2018-10-14] MEDS: METOPROLOL 25 MG TAB PO SCH ×2 (08:17→20:12)
[2018-10-14] MEDS: BALSAM PERU/CASTOR OIL 60 GM TUBE TOP SCH (08:18)
[2018-10-14] MEDS: LEVETIRACETAM 750 MG TAB GTB SCH (08:18)
[2018-10-14] MEDS: MULTIVITAMINS THERAPEUTIC TAB PO SCH (08:18)
[2018-10-14] MEDS: AMIODARONE 200 MG TAB PO SCH ×2 (08:18→20:29)
[2018-10-14] MEDS: FAMOTIDINE 20 MG TAB NGT SCH (08:18)
[2018-10-14] MEDS: MEROPENEM 500MG/50 ML (PMX) 50 ML IVPB SCH ×2 (08:18→20:29)
[2018-10-14] MEDS: ENOXAPARIN 100 MG/ML SYG SC SCH (08:26)
[2018-10-14] MEDS: SODIUM BICARBONATE (IV ADD) 100 MEQ in DEXTROSE 5%-0.45% NACL 900 ML IV SCH ×2 (08:34→23:21)
--- NOTE | 2018-10-14 08:37 | CONS ---
Assessment/Plan Assessment/Plan Assessment/Plan (Daily) Ventilator setting; AC of 20, tidal volume 550, PEEP of 5, 30% FiO2. Assessment and recommendations; 1. Patient admitted with E. coli sepsis with bacteremia and UTI, currently on appropriate antimicrobial regimen. Patient has improved hemodynamically and is now off pressor support. 2. Generalized tremors, possibly underlying Parkinson's disease. Possibly seizures, EEG not showing any epileptic activity. Patient on combination antiepileptic regimen with Depakote and Keppra. 3. Non-STEMI. 4. Acute renal injury. 5. Paroxysmal atrial fibrillation. Currently in sinus rhythm. 6. Interval resolution of hypotension. 7. Severe anemia. 8. Acute renal injury with improving serum creatinine. 9. History of hypothyroidism and hypertension. 10. History of apparent advanced dementia as well. Obtain ABG. Continue current supportive care. Perform a CPAP trial. Patient was assessed at bedside briefly on CPAP mode currently has adequate weaning parameters. Prognosis is guarded and a CODE STATUS needs to be addressed with the family. 35 minutes of critical care time was spent evaluating the patient. Consultation Date/Type/Reason Admit Date/Time Oct 06, 2018 at 09:29 Initial Consult Date 10/06/18 Type of Consult Pulmonary/critical care Patient's condition remains critical. Still requiring invasive mechanical ventilation. Patient however has improved hemodynamically and is off pressor support. General exam; elderly female, orally intubated, exhibiting tremor-like activity. Unresponsive. Reason for Consultation HEENT exam; supple neck, no JVD. No lymphadenopathy. Midline trachea. No thyromegaly. Nasogastric tube in place. Orally intubated. Patient is edentulous. Pupils are small bilaterally. No neck masses. Chest exam; diminished but clear breath sounds. S1-S2 audible, no murmurs. Regular rhythm. Abdomen exam; soft, scaphoid. No organomegaly. Bowel sounds audible. Extremity exam; no peripheral edema. DESKTOP SUPPORT SPECIALIST exam; patient remains unresponsive and exhibiting tremor-like activity. Requesting Provider: MANUEL ALEMAN Date/Time of Note DATE: 10/14/18 TIME: 08:33 Exam/Review of Systems Exam Vitals Vital Signs Date Temp Pulse Resp B/P (MAP) Pulse Ox O2 O2 Flow FiO2 Time Delivery Rate 10/14/18 98.1 88 22 117/60 99 Mechanical 07:00 (79) Ventilator 10/14/18 30 05:05 Intake and Output 10/13/18 10/13/18 10/14/18 1515:00 23:00 07:00 IntakeIntake Total 1770.5 ml 940 ml 1110 ml OutputOutput Total 500 ml 365 ml 300 ml BalanceBalance 1270.5 ml 575 ml 810 ml Results Result Diagram: 10/14/18 0540 10/14/18 0431 Results 24hrs Laboratory Tests Test 10/13/18 11:33 10/13/18 13:11 10/14/18 04:31 10/14/18 05:40 Lab Scanned Report REFERENCE LAB Activated > 180.0 *H Partial Thrombopla st Time White Blood Count 6.6 # 7.3 Red Blood Count 1.74 #L 1.86 L Hemoglobin 5.6 #*L 6.0 *L Hematocrit 17.0 #L 18.0 L Mean Corpuscular 97.7 96.8 Volume Mean Corpuscular 32.2 32.3 Hemoglobin Mean Corpuscular 32.9 33.3 Hemoglobin Concent Red Cell 15.1 H 15.0 H Distribution Width Platelet Count 330 337 Mean Platelet 11.8 H 11.3 H Volume Immature 2.000 H 1.500 H Granulocytes % Neutrophils % 74.0 71.7 Segmented 72 Neutrophils % (Manual) Band Neutrophils % 4 (Manual) Lymphocytes % 13.4 L 16.4 Lymphocytes % 13 L (Manual) Reactive 3 H Lymphocytes % (Manual) Monocytes % 10.1 9.8 Monocytes % 7 (Manual) Eosinophils % 0.3 0.6 Basophils % 0.2 0.0 Myelocytes % 1 H (Manual) Nucleated Red 0.3 H 0.6 H Blood Cells % Immature 0.130 H 0.110 H Granulocytes # Neutrophils # 4.9 5.2 Neutrophils # 4.8 (Manual) Band Neutrophils # 0.2 Lymphocytes 0.8 (Manual) Lymphocytes # 0.9 1.2 Reactive 0.1 H Lymphocytes # Monocytes # 0.7 0.7 Monocytes # 0.4 (Manual) Eosinophils # 0.0 0.0 Basophils # 0.0 0.0 Myelocytes # 0.0 Nucleated Red 0.0 0.0 Blood Cells # Platelet Estimate NORMAL Polychromasia 3+ Hypochromasia 2+ Anisocytosis 1+ Target Cells 1+ Sodium Level 148 H Potassium Level 3.5 Chloride Level 114 H Carbon Dioxide 26 Level Anion Gap 8 Blood Urea 48 H Nitrogen Creatinine 1.10 H Est Glomerular 50 L Filtrat Rate mL/min Glucose Level 101 Calcium Level 8.5 Phosphorus Level 3.0 Magnesium Level 1.8 Medications Medication Current Medications IV Flush (NS 3 ml) 3 ml PER PROTOCOL IV ; Start 10/06/18 at 09:30 Ondansetron HCl (Zofran Inj) 4 mg Q6H PRN IV NAUSEA/VOMITING; Start 10/06/18 at 09:30 Acetaminophen (Tylenol Tab) 650 mg Q6H PRN PO .PAIN 1-3 OR TEMP Last administered on 10/12/18at 08:27; Admin Dose 650 MG; Start 10/06/18 at 09:30 Acetaminophen/ Hydrocodone Bitart ([place] (5/325)) 1 tab Q6H PRN PO .MOD PAIN 4- 6; Start 10/06/18 at 09:30 Morphine Sulfate (morphine) 2 mg Q4H PRN IV .SEVERE PAIN 7-10 Last administered on 10/12/18at 23:00; Admin Dose 2 MG; Start 10/06/18 at 09:30 Docusate Sodium (Colace) 100 mg Q12H PRN PO .CONSTIPATION; Start 10/06/18 at 09:30 Magnesium Hydroxide (Milk Of Mag) 30 ml DAILY PRN PO .CONSTIPATION; Start 10/06/18 at 09:30 Lorazepam (Ativan) 0.5 mg Q6H PRN IV ANXIETY Last administered on 10/14/18at 02:16; Admin Dose 0.5 MG; Start 10/06/18 at 09:30 Albuterol/ Ipratropium (Duoneb) 3 ml Q4H RESP THERAPY PRN HHN SHORTNESS OF BREATH; Start 10/06/18 at 09:30 Nitroglycerin (Nitroglycerin (Sl Tab) 0.4 Mg) 1 tab Q5M PRN SL ANGINA; Start 10/06/18 at 09:30 Bisacodyl (Dulcolax) 10 mg DAILY PRN PO CONSTIPATION; Start 10/06/18 at 09:30 Donepezil HCl (Aricept) 5 mg QHS PO Last administered on 10/13/18at 20:25; Admin Dose 5 MG; Start 10/06/18 at 21:00 Lactulose (Enulose) 20 gm TID PRN PO CONSTIPATION; Start 10/06/18 at 09:30 Levothyroxine Sodium (Synthroid) 50 mcg BEFORE BREAKFAST PO Last administered on 10/14/18 06:25; Admin Dose 50 MCG; Start 10/07/18 at 07:00 Mineral Oil (Fleet Mineral Oil Enema) 133 ml DAILY PRN [place] CONSTIPATION; Start 10/06/18 at 09:30 Multivitamins Therapeutic (Theragran) 1 tab DAILY PO Last administered on 10/14/18 08:18; Admin Dose 1 TAB; Start 10/07/18 at 09:00 Norepinephrine 32 mg/Dextrose 250 ml @ 0.47 mls/hr TITRATE IV Last administered on 10/08/18 12:53; Admin Dose 4.69 MLS/HR; Start 10/06/18 at 11:30 Aspirin (Aspirin) 81 mg DAILY NGT Last administered on 10/11/18 09:35; Admin Dose 81 MG; Start 10/06/18 at 12:30; Status Hold Atorvastatin Calcium (Lipitor) 40 mg DAILY@21 NGT Last administered on 10/13/18 20:25; Admin Dose 40 MG; Start 10/06/18 at 21:00 Miscellaneous Information (Flu Vaccine Previously Dispensed) FLU VACCINE PREVIOU... NOTE PRN XX NOTE; Start 10/06/18 at 18:00 Meropenem/Sodium Chloride 50 ml @ 100 mls/hr Q12 IVPB Last administered on 08:18; Admin Dose 100 MLS/HR; Start 10/07/18 at 12:00 Midazolam HCl 50 ml @ 0 mls/hr TITRATE IV Last administered on 10/09/18 22:21; Admin Dose 3 MLS/HR; Start 10/08/18 at 10:00 Fentanyl 100 ml @ 2.5 mls/hr TITRATE IV Last administered on 10/10/18 01:01; Admin Dose 2.5 MLS/HR; Start 10/08/18 at 16:30 Lorazepam (Ativan) 1 mg Q6H PRN IV seizure Last administered on 10/11/18 15:22; Admin Dose 1 MG; Start 10/08/18 at 16:00 Amiodarone HCl (Cordarone) 200 mg BID PO Last administered on 10/14/18 08:18; Admin Dose 200 MG; Start 10/09/18 at 21:00 Famotidine (Pepcid) 20 mg DAILY NGT Last administered on 10/14/18 08:18; Admin Dose 20 MG; Start 10/10/18 at 09:00 Phenylephrine HCl 250 ml @ 75 mls/hr TITRATE IV Last administered on 10/12/18 01:38; Admin Dose 6 MLS/HR; Start 10/09/18 at 13:00 Polyethylene Glycol (Miralax) 17 gm BID PRN PO constipation; Start 10/10/18 at 22:00 Valproate Sodium (Depakene Liquid Cup) 750 mg Q8H GTB Last administered on 10/14/18 04:59; Admin Dose 750 MG; Start 10/12/18 at 13:00 Sodium Bicarbonate 100 meq/Dextrose/ Sodium Chloride 1,000 ml @ 75 mls/hr Q13H2 0M IV Last administered on 10/13/18 17:28; Admin Dose 75 MLS/HR; Start 10/12/18 at 14:00 Metoprolol Tartrate (Lopressor) 25 mg BID PO Last administered on 10/14/18 08:17; Admin Dose 25 MG; Start 10/12/18 at 15:00 Metoprolol Tartrate (Lopressor) 5 mg Q4H PRN IV HR>110 Hold SBP<100; Start 10/12/18 at 15:00 Levetiracetam (Keppra) 750 mg BID GTB Last administered on 10/14/18 08:18; Admin Dose 750 MG; Start 10/12/18 at 21:00 Enoxaparin Sodium (Lovenox) 70 mg DAILY SC Last administered on 10/14/18 08:26; Admin Dose 70 MG; Start 10/14/18 at 09:00 YANETH CASTELLANOS 11, 2019 08:37
--- NOTE | 2018-10-14 10:02 | PN ---
Date/Time of Note Date/Time of Note DATE: 10/14/18 TIME: 09:57 Assessment/Plan VTE Prophylaxis Risk score (from [facility] [place])>0 risk: 9 SCD applied (from [facility] [place]): Yes Pharmacological prophylaxis: NA/contraindicated Pharm contraindication: bleeding Lines/Catheters IV Catheter Type (from [facility]): Central Line Central line still needed: Yes Urinary Cath still in place: Yes Reason Cath still needed: urinary retention Assessment/Plan Hospital Course S: Patient still intubated, tolerating tube feeds. Seen by pulmonary team earlier today. Heart rate presently normal sinus rhythm. O: VS -SEE BELOW PE: GENERAL: lying in bed, intubated. HEENT: Moist mucous membranes, ET tube in place. NECK: Supple, no thyromegaly. LUNGS: Mechanical breath sounds equal bilaterally. CARDIOVASCULAR: S1, S2 heard. No rubs or gallops. ABDOMEN: Soft, nontender, nondistended. Normal bowel sounds. No rebound or guarding. MUSCULOSKELETAL: No lower extremity edema bilaterally. Assessment/Plan: 67-year-old female coming in with signs of septic shock, likely secondary to urinary tract infection and pneumonia, elevated troponins, acute renal insufficiency, now intubated on pressor support. Also presented with atrial fibrillation with rapid ventricular response, now in normal sinus rhythm. #Septic shock - ID Dr. Sanford following- Likely due to UTI- Urine cultures and Blood cultures growing E Coli x2- Now off vasopressors. -Continue current broad-spectrum antibiotics, Tylenol p.r.n. pain and fevers. -Follow-up ID recommendations, final culture results, continue IV fluids #Seizure- Morning of 10/08 had whole body twitching concerning for seizures; got Ativan then Versed. Again on 10/11 had a similar episode broken with Ativan- EEG appears to have localized lesion but CT head is negative. Neuro following. - Continue keppra, valproic acid, follow-up neurology recommendation - Will hold versed. - Pending MRI brain. # NSTEMI - Unclear if this is true non-ST elevation myocardial infarction versus demand ischemia- s/p heparin gtt earlier this admission. - Continue high dose aspirin. - She is also on Lipitor. -Cardiology Dr. Mello consulted, follow-up their recommendations #A fib with RVR, paroxysmal- Dr. Mello following- Converted to normal sinus after getting Cardizem in ED-apparently went back in A fib, today presently normal sinus rhythm -Monitor heart rate for now, follow cardiology recommendations -Continue p.o. beta-panda and p.o. amiodarone for now # Renal insufficiency - improving- Not anuric - Dr. Davila consulted, monitor for now # Hypothyroidism - Continue current thyroid medicines. - Low TSH, normal fT4 consistent with sick euthyroid syndrome. # History of dementia. - Continue Aricept for now. # History of high cholesterol. - Cont statin #Anemia: Unclear source, hemoglobin today 6.0. No signs of any upper or lower GI bleeding presently -We will order for PRBC transfusion, this is a medical necessity given her anemia, however patient not able to consent and family members not able to be found at this time. -Follow-up stool occult test # Gastrointestinal prophylaxis- H2 panda. # Deep venous thrombosis prophylaxis - due to anemia, will stop Lovenox, start SCDs 55 minutes critical care time spent on this patient. Result Diagram: 10/14/18 0540 10/14/18 0431 Results 24hrs Laboratory Tests Test 10/13/18 11:33 10/13/18 13:11 10/14/18 04:31 10/14/18 05:40 Lab Scanned REFERENCE LAB Report Activated > 180.0 *H Partial Thrombopl ast Time White Blood Count 6.6 # 7.3 Red Blood Count 1.74 #L 1.86 L Hemoglobin 5.6 #*L 6.0 *L Hematocrit 17.0 #L 18.0 L Mean Corpuscular 97.7 96.8 Volume Mean Corpuscular 32.2 32.3 Hemoglobin Mean Corpuscular 32.9 33.3 Hemoglobin Concen t Red Cell 15.1 H 15.0 H Distribution Width Platelet Count 330 337 Mean Platelet 11.8 H 11.3 H Volume Immature 2.000 H 1.500 H Granulocytes % Neutrophils % 74.0 71.7 Segmented 72 Neutrophils % (Manual) Band Neutrophils 4 % (Manual) Lymphocytes % 13.4 L 16.4 Lymphocytes % 13 L (Manual) Reactive 3 H Lymphocytes % (Manual) Monocytes % 10.1 9.8 Monocytes % 7 (Manual) Eosinophils % 0.3 0.6 Basophils % 0.2 0.0 Myelocytes % 1 H (Manual) Nucleated Red 0.3 H 0.6 H Blood Cells % Immature 0.130 H 0.110 H Granulocytes # Neutrophils # 4.9 5.2 Neutrophils # 4.8 (Manual) Band Neutrophils 0.2 # Lymphocytes 0.8 (Manual) Lymphocytes # 0.9 1.2 Reactive 0.1 H Lymphocytes # Monocytes # 0.7 0.7 Monocytes # 0.4 (Manual) Eosinophils # 0.0 0.0 Basophils # 0.0 0.0 Myelocytes # 0.0 Nucleated Red 0.0 0.0 Blood Cells # Platelet Estimate NORMAL Polychromasia 3+ Hypochromasia 2+ Anisocytosis 1+ Target Cells 1+ Sodium Level 148 H Potassium Level 3.5 Chloride Level 114 H Carbon Dioxide 26 Level Anion Gap 8 Blood Urea 48 H Nitrogen Creatinine 1.10 H Est Glomerular 50 L Filtrat Rate mL/min Glucose Level 101 Calcium Level 8.5 Phosphorus Level 3.0 Magnesium Level 1.8 Test 10/14/18 08:32 Blood Gas Blood arterial Specimen Source Arterial Blood 10/14/2018 8:56:3 Date Drawn 1 AM Arterial Blood pH 7.601 *H (Temp corrected) Arterial Blood 24.8 L pCO2 (Temp correct) Arterial Blood 146.5 H pO2 (Temp corrected) Arterial Blood 23.9 HCO3 Arterial Blood 2.3 Base Excess Arterial Blood 98.7 H Oxygen Saturation Greg Test ACCEPTAB Arterial Blood Right Radial Gas Puncture Site Arterial 0.3 Blood Carboxyhemo globin Arterial Blood 0.3 Methemoglobin Blood Gas A-a O2 38.3 H Differential Oxyhemoglobin 98.1 Percent Blood Gas 37.0 Temperature Blood Gas 20.0 Respiration Rate Blood Gas Actual 24 Respiration Rate Blood Gas VENT - AC Modality FiO2 30.0 Blood Gas Tidal 550.0 Volume Blood Gas Low 5.0 PEEP Setting Blood Gas ANJANA GILLILAND Critical Value Read Back Blood Gas TM Notified Whom Blood Gas 10/14/2018 9:07:0 Notified Time 3 AM Exam/Review of Systems Exam Vitals Vital Signs Date Temp Pulse Resp B/P (MAP) Pulse Ox O2 O2 Flow FiO2 Time Delivery Rate 10/14/18 76 16 100 30 09:22 10/14/18 114/67 Mechanical 09:00 (83) Ventilator 10/14/18 98.1 07:00 Intake and Output 10/13/18 10/13/18 10/14/18 1414:59 22:59 06:59 IntakeIntake Total 1695.5 ml 940 ml 1240 ml OutputOutput Total 500 ml 370 ml 345 ml BalanceBalance 1195.5 ml 570 ml 895 ml Results Results 24hrs Laboratory Tests Test 10/13/18 11:33 10/13/18 13:11 10/14/18 04:31 10/14/18 05:40 Lab Scanned REFERENCE LAB Report Activated > 180.0 *H Partial Thrombopl ast Time White Blood Count 6.6 # 7.3 Red Blood Count 1.74 #L 1.86 L Hemoglobin 5.6 #*L 6.0 *L Hematocrit 17.0 #L 18.0 L Mean Corpuscular 97.7 96.8 Volume Mean Corpuscular 32.2 32.3 Hemoglobin Mean Corpuscular 32.9 33.3 Hemoglobin Concen t Red Cell 15.1 H 15.0 H Distribution Width Platelet Count 330 337 Mean Platelet 11.8 H 11.3 H Volume Immature 2.000 H 1.500 H Granulocytes % Neutrophils % 74.0 71.7 Segmented 72 Neutrophils % (Manual) Band Neutrophils 4 % (Manual) Lymphocytes % 13.4 L 16.4 Lymphocytes % 13 L (Manual) Reactive 3 H Lymphocytes % (Manual) Monocytes % 10.1 9.8 Monocytes % 7 (Manual) Eosinophils % 0.3 0.6 Basophils % 0.2 0.0 Myelocytes % 1 H (Manual) Nucleated Red 0.3 H 0.6 H Blood Cells % Immature 0.130 H 0.110 H Granulocytes # Neutrophils # 4.9 5.2 Neutrophils # 4.8 (Manual) Band Neutrophils 0.2 # Lymphocytes 0.8 (Manual) Lymphocytes # 0.9 1.2 Reactive 0.1 H Lymphocytes # Monocytes # 0.7 0.7 Monocytes # 0.4 (Manual) Eosinophils # 0.0 0.0 Basophils # 0.0 0.0 Myelocytes # 0.0 Nucleated Red 0.0 0.0 Blood Cells # Platelet Estimate NORMAL Polychromasia 3+ Hypochromasia 2+ Anisocytosis 1+ Target Cells 1+ Sodium Level 148 H Potassium Level 3.5 Chloride Level 114 H Carbon Dioxide 26 Level Anion Gap 8 Blood Urea 48 H Nitrogen Creatinine 1.10 H Est Glomerular 50 L Filtrat Rate mL/min Glucose Level 101 Calcium Level 8.5 Phosphorus Level 3.0 Magnesium Level 1.8 Test 10/14/18 08:32 Blood Gas Blood arterial Specimen Source Arterial Blood 10/14/2018 8:56:3 Date Drawn 1 AM Arterial Blood pH 7.601 *H (Temp corrected) Arterial Blood 24.8 L pCO2 (Temp correct) Arterial Blood 146.5 H pO2 (Temp corrected) Arterial Blood 23.9 HCO3 Arterial Blood 2.3 Base Excess Arterial Blood 98.7 H Oxygen Saturation Greg Test ACCEPTAB Arterial Blood Right Radial Gas Puncture Site Arterial 0.3 Blood Carboxyhemo globin Arterial Blood 0.3 Methemoglobin Blood Gas A-a O2 38.3 H Differential Oxyhemoglobin 98.1 Percent Blood Gas 37.0 Temperature Blood Gas 20.0 Respiration Rate Blood Gas Actual 24 Respiration Rate Blood Gas VENT - AC Modality FiO2 30.0 Blood Gas Tidal 550.0 Volume Blood Gas Low 5.0 PEEP Setting Blood Gas ANJANA GILLILAND Critical Value Read Back Blood Gas TM Notified Whom Blood Gas 10/14/2018 9:07:0 Notified Time 3 AM Medications Medication Current Medications IV Flush (NS 3 ml) 3 ml PER PROTOCOL IV ; Start 10/06/18 at 09:30 Ondansetron HCl (Zofran Inj) 4 mg Q6H PRN IV NAUSEA/VOMITING; Start 10/06/18 at 09:30 Acetaminophen (Tylenol Tab) 650 mg Q6H PRN PO .PAIN 1-3 OR TEMP Last admin istered on 10/12/18at 08:27; Admin Dose 650 MG; Start 10/06/18 at 09:30 Acetaminophen/ Hydrocodone Bitart ([place] (5/325)) 1 tab Q6H PRN PO .MOD PAIN 4- 6; Start 10/06/18 at 09:30 Morphine Sulfate (morphine) 2 mg Q4H PRN IV .SEVERE PAIN 7-10 Last administered on 10/12/18at 23:00; Admin Dose 2 MG; Start 10/06/18 at 09:30 Docusate Sodium (Colace) 100 mg Q12H PRN PO .CONSTIPATION; Start 10/06/18 at 09:30 Magnesium Hydroxide (Milk Of Mag) 30 ml DAILY PRN PO .CONSTIPATION; Start 10/06/18 at 09:30 Lorazepam (Ativan) 0.5 mg Q6H PRN IV ANXIETY Last administered on 10/14/18at 02:16; Admin Dose 0.5 MG; Start 10/06/18 at 09:30 Albuterol/ Ipratropium (Duoneb) 3 ml Q4H RESP THERAPY PRN HHN SHORTNESS OF BREATH; Start 10/06/18 at 09:30 Nitroglycerin (Nitroglycerin (Sl Tab) 0.4 Mg) 1 tab Q5M PRN SL ANGINA; Start 10/06/18 at 09:30 Bisacodyl (Dulcolax) 10 mg DAILY PRN PO CONSTIPATION; Start 10/06/18 at 09:30 Donepezil HCl (Aricept) 5 mg QHS PO Last administered on 10/13/18 20:25; Admin Dose 5 MG; Start 10/06/18 at 21:00 Lactulose (Enulose) 20 gm TID PRN PO CONSTIPATION; Start 10/06/18 at 09:30 Levothyroxine Sodium (Synthroid) 50 mcg BEFORE BREAKFAST PO Last administered on 10/14/18 06:25; Admin Dose 50 MCG; Start 10/07/18 at 07:00 Mineral Oil (Fleet Mineral Oil Enema) 133 ml DAILY PRN [place] CONSTIPATION; Start 10/06/18 at 09:30 Multivitamins Therapeutic (Theragran) 1 tab DAILY PO Last administered on 08:18; Admin Dose 1 TAB; Start 10/07/18 at 09:00 Norepinephrine 32 mg/Dextrose 250 ml @ 0.47 mls/hr TITRATE IV Last administered on 10/08/18 12:53; Admin Dose 4.69 MLS/HR; Start 10/06/18 at 11:30 Aspirin (Aspirin) 81 mg DAILY NGT Last administered on 10/11/18 09:35; Admin Dose 81 MG; Start 10/06/18 at 12:30; Status Hold Atorvastatin Calcium (Lipitor) 40 mg DAILY@21 NGT Last administered on 10/13/18 20:25; Admin Dose 40 MG; Start 10/06/18 at 21:00 Miscellaneous Information (Flu Vaccine Previously Dispensed) FLU VACCINE PREVIOU... NOTE PRN XX NOTE; Start 10/06/18 at 18:00 Meropenem/Sodium Chloride 50 ml @ 100 mls/hr Q12 IVPB Last administered on 10/14/18 08:18; Admin Dose 100 MLS/HR; Start 10/07/18 at 12:00 Midazolam HCl 50 ml @ 0 mls/hr TITRATE IV Last administered on 10/09/18 22:21; Admin Dose 3 MLS/HR; Start 10/08/18 at 10:00 Fentanyl 100 ml @ 2.5 mls/hr TITRATE IV Last administered on 10/10/18 01:01; Admin Dose 2.5 MLS/HR; Start 10/08/18 at 16:30 Lorazepam (Ativan) 1 mg Q6H PRN IV seizure Last administered on 10/14/18 09:55; Admin Dose 1 MG; Start 10/08/18 at 16:00 Amiodarone HCl (Cordarone) 200 mg BID PO Last administered on 10/14/18 08:18; Admin Dose 200 MG; Start 10/09/18 at 21:00 Famotidine (Pepcid) 20 mg DAILY NGT Last administered on 10/14/18 08:18; Admin Dose 20 MG; Start 10/10/18 at 09:00 Phenylephrine HCl 250 ml @ 75 mls/hr TITRATE IV Last administered on 10/12/18 01:38; Admin Dose 6 MLS/HR; Start 10/09/18 at 13:00 Polyethylene Glycol (Miralax) 17 gm BID PRN PO constipation; Start 10/10/18 at 22:00 Valproate Sodium (Depakene Liquid Cup) 750 mg Q8H GTB Last administered on 10/14/18 04:59; Admin Dose 750 MG; Start 10/12/18 at 13:00 Sodium Bicarbonate 100 meq/Dextrose/ Sodium Chloride 1,000 ml @ 75 mls/hr [id number] IV Last administered on 10/14/18 08:34; Admin Dose 75 MLS/HR; Start 10/12/18 at 14:00 Metoprolol Tartrate (Lopressor) 25 mg BID PO Last administered on 10/14/18 08:17; Admin Dose 25 MG; Start 10/12/18 at 15:00 Metoprolol Tartrate (Lopressor) 5 mg Q4H PRN IV HR>110 Hold SBP<100; Start 10/12/18 at 15:00 Levetiracetam (Keppra) 750 mg BID GTB Last administered on 10/14/18 08:18; Admin Dose 750 MG; Start 10/12/18 at 21:00 Enoxaparin Sodium (Lovenox) 70 mg DAILY SC Last administered on 10/14/18at 08:26; Admin Dose 70 MG; Start 10/14/18 at 09:00 MANUEL ALEMAN Oct 14, 2018 10:02
--- NOTE | 2018-10-14 10:41 | CONS ---
Assessment/Plan Assessment/Plan Assessment/Plan (Daily) 1. Non Oliguric Acute kidney injury due to ATN from septic shock 2. Septic shock due to UTI 3. acute UTI with Urine Cx growing E.Coli 4. Acute hypoxic respiratory failure intubated on ventilator 5. H/o HTN 6 H/o HL 7. H/o Hypothyroidism 8. Bacteremia with blood cx 2/2 growing E.Coli Plan: pt remains intubated, BUN/Cr improved to 48/1.1, urine output 1.2 liter in last 24 hr,HCo3 18- - no acute indication of HD at this time s/p PRBC transfusion for anemia Id following , IV abx for UTI and bacteremia , Renally dose all abx and monitor electrolytes ventilator management as per Pulmonary will follow up Consultation Date/Type/Reason Admit Date/Time Oct 06, 2018 at 09:29 Initial Consult Date 10/06/18 Type of Consult NEPHROLOGY Requesting Provider: MANUEL ALEMAN Date/Time of Note DATE: 10/14/18 TIME: 10:41 24 HR Interval Summary Free Text/Dictation remains intuabted, she is off of pressors, BP has been stable, BUN/Cr improving Exam/Review of Systems Exam Vitals Vital Signs Date Temp Pulse Resp B/P (MAP) Pulse Ox O2 O2 Flow FiO2 Time Delivery Rate 10/14/18 91 26 111/84 99 Mechanical 10:00 (93) Ventilator 10/14/18 30 09:22 10/14/18 98.1 07:00 Intake and Output 10/13/18 10/13/18 10/14/18 1414:59 22:59 06:59 IntakeIntake Total 1695.5 ml 940 ml 1240 ml OutputOutput Total 500 ml 370 ml 345 ml BalanceBalance 1195.5 ml 570 ml 895 ml Exam Constitutional: non-verbal, other (Intuabted, on ventilator ) Respiratory: congested cough, crackles/rales, diminished breath sounds Cardiovascular: nl pulses, irregular rhythm Gastrointestinal: soft, non-tender Musculoskeletal: swelling Neurological: other (sedated on ventilator ) Results Result Diagram: 10/14/18 0540 10/14/18 0431 Results 24hrs Laboratory Tests Test 10/13/18 11:33 10/13/18 13:11 10/14/18 04:31 10/14/18 05:40 Lab Scanned REFERENCE LAB Report Activated > 180.0 *H Partial Thrombopl ast Time White Blood Count 6.6 # 7.3 Red Blood Count 1.74 #L 1.86 L Hemoglobin 5.6 #*L 6.0 *L Hematocrit 17.0 #L 18.0 L Mean Corpuscular 97.7 96.8 Volume Mean Corpuscular 32.2 32.3 Hemoglobin Mean Corpuscular 32.9 33.3 Hemoglobin Concen t Red Cell 15.1 H 15.0 H Distribution Width Platelet Count 330 337 Mean Platelet 11.8 H 11.3 H Volume Immature 2.000 H 1.500 H Granulocytes % Neutrophils % 74.0 71.7 Segmented 72 Neutrophils % (Manual) Band Neutrophils 4 % (Manual) Lymphocytes % 13.4 L 16.4 Lymphocytes % 13 L (Manual) Reactive 3 H Lymphocytes % (Manual) Monocytes % 10.1 9.8 Monocytes % 7 (Manual) Eosinophils % 0.3 0.6 Basophils % 0.2 0.0 Myelocytes % 1 H (Manual) Nucleated Red 0.3 H 0.6 H Blood Cells % Immature 0.130 H 0.110 H Granulocytes # Neutrophils # 4.9 5.2 Neutrophils # 4.8 (Manual) Band Neutrophils 0.2 # Lymphocytes 0.8 (Manual) Lymphocytes # 0.9 1.2 Reactive 0.1 H Lymphocytes # Monocytes # 0.7 0.7 Monocytes # 0.4 (Manual) Eosinophils # 0.0 0.0 Basophils # 0.0 0.0 Myelocytes # 0.0 Nucleated Red 0.0 0.0 Blood Cells # Platelet Estimate NORMAL Polychromasia 3+ Hypochromasia 2+ Anisocytosis 1+ Target Cells 1+ Sodium Level 148 H Potassium Level 3.5 Chloride Level 114 H Carbon Dioxide 26 Level Anion Gap 8 Blood Urea 48 H Nitrogen Creatinine 1.10 H Est Glomerular 50 L Filtrat Rate mL/min Glucose Level 101 Calcium Level 8.5 Phosphorus Level 3.0 Magnesium Level 1.8 Test 10/14/18 08:32 Blood Gas Blood arterial Specimen Source Arterial Blood 10/14/2018 8:56:3 Date Drawn 1 AM Arterial Blood pH 7.601 *H (Temp corrected) Arterial Blood 24.8 L pCO2 (Temp correct) Arterial Blood 146.5 H pO2 (Temp corrected) Arterial Blood 23.9 HCO3 Arterial Blood 2.3 Base Excess Arterial Blood 98.7 H Oxygen Saturation Greg Test ACCEPTAB Arterial Blood Right Radial Gas Puncture Site Arterial 0.3 Blood Carboxyhemo globin Arterial Blood 0.3 Methemoglobin Blood Gas A-a O2 38.3 H Differential Oxyhemoglobin 98.1 Percent Blood Gas 37.0 Temperature Blood Gas 20.0 Respiration Rate Blood Gas Actual 24 Respiration Rate Blood Gas VENT - AC Modality FiO2 30.0 Blood Gas Tidal 550.0 Volume Blood Gas Low 5.0 PEEP Setting Blood Gas ANJANA GILLILAND Critical Value Read Back Blood Gas TM Notified Whom Blood Gas 10/14/2018 9:07:0 Notified Time 3 AM Medications Medication Current Medications IV Flush (NS 3 ml) 3 ml PER PROTOCOL IV ; Start 10/06/18 at 09:30 Ondansetron HCl (Zofran Inj) 4 mg Q6H PRN IV NAUSEA/VOMITING; Start 10/06/18 at 09:30 Acetaminophen (Tylenol Tab) 650 mg Q6H PRN PO .PAIN 1-3 OR TEMP Last administered on 10/12/18at 08:27; Admin Dose 650 MG; Start 10/06/18 at 09:30 Acetaminophen/ Hydrocodone Bitart ([place] (5/325)) 1 tab Q6H PRN PO .MOD PAIN 4- 6; Start 10/06/18 at 09:30 Morphine Sulfate (morphine) 2 mg Q4H PRN IV .SEVERE PAIN 7-10 Last administered on 10/12/18at 23:00; Admin Dose 2 MG; Start 10/06/18 at 09:30 Docusate Sodium (Colace) 100 mg Q12H PRN PO .CONSTIPATION; Start 10/06/18 at 09:30 Magnesium Hydroxide (Milk Of Mag) 30 ml DAILY PRN PO .CONSTIPATION; Start 10/06/18 at 09:30 Lorazepam (Ativan) 0.5 mg Q6H PRN IV ANXIETY Last administered on 10/14/18at 02:16; Admin Dose 0.5 MG; Start 10/06/18 at 09:30 Albuterol/ Ipratropium (Duoneb) 3 ml Q4H RESP THERAPY PRN HHN SHORTNESS OF BREATH; Start 10/06/18 at 09:30 Nitroglycerin (Nitroglycerin (Sl Tab) 0.4 Mg) 1 tab Q5M PRN SL ANGINA; Start 10/06/18 at 09:30 Bisacodyl (Dulcolax) 10 mg DAILY PRN PO CONSTIPATION; Start 10/06/18 at 09:30 Donepezil HCl (Aricept) 5 mg QHS PO Last administered on 10/13/18 20:25; Admin Dose 5 MG; Start 10/06/18 at 21:00 Lactulose (Enulose) 20 gm TID PRN PO CONSTIPATION; Start 10/06/18 at 09:30 Levothyroxine Sodium (Synthroid) 50 mcg BEFORE BREAKFAST PO Last administered on 10/14/18 06:25; Admin Dose 50 MCG; Start 10/07/18 at 07:00 Mineral Oil (Fleet Mineral Oil Enema) 133 ml DAILY PRN [place] CONSTIPATION; Start 10/06/18 at 09:30 Multivitamins Therapeutic (Theragran) 1 tab DAILY PO Last administered on 10/14/18 08:18; Admin Dose 1 TAB; Start 10/07/18 at 09:00 Norepinephrine 32 mg/Dextrose 250 ml @ 0.47 mls/hr TITRATE IV Last administered on 10/08/18 12:53; Admin Dose 4.69 MLS/HR; Start 10/06/18 at 11:30 Aspirin (Aspirin) 81 mg DAILY NGT Last administered on 10/11/18 09:35; Admin Dose 81 MG; Start 10/06/18 at 12:30; Status Hold Atorvastatin Calcium (Lipitor) 40 mg DAILY@21 NGT Last administered on 10/13/18 20:25; Admin Dose 40 MG; Start 10/06/18 at 21:00 Miscellaneous Information (Flu Vaccine Previously Dispensed) FLU VACCINE PREVIOU... NOTE PRN XX NOTE; Start 10/06/18 at 18:00 Meropenem/Sodium Chloride 50 ml @ 100 mls/hr Q12 IVPB Last administered on 10/14/18 08:18; Admin Dose 100 MLS/HR; Start 10/07/18 at 12:00 Midazolam HCl 50 ml @ 0 mls/hr TITRATE IV Last administered on 10/09/18 22:21; Admin Dose 3 MLS/HR; Start 10/08/18 at 10:00 Fentanyl 100 ml @ 2.5 mls/hr TITRATE IV Last administered on 10/10/18 01:01; Admin Dose 2.5 MLS/HR; Start 10/08/18 at 16:30 Lorazepam (Ativan) 1 mg Q6H PRN IV seizure Last administered on 10/14/18 09:55; Admin Dose 1 MG; Start 10/08/18 at 16:00 Amiodarone HCl (Cordarone) 200 mg BID PO Last administered on 10/14/18 08:18; Admin Dose 200 MG; Start 10/09/18 at 21:00 Famotidine (Pepcid) 20 mg DAILY NGT Last administered on 10/14/18 08:18; Admin Dose 20 MG; Start 10/10/18 at 09:00 Phenylephrine HCl 250 ml @ 75 mls/hr TITRATE IV Last administered on 10/12/18 01:38; Admin Dose 6 MLS/HR; Start 10/09/18 at 13:00 Polyethylene Glycol (Miralax) 17 gm BID PRN PO constipation; Start 10/10/18 at 22:00 Valproate Sodium (Depakene Liquid Cup) 750 mg Q8H GTB Last administered on 10/14/18 04:59; Admin Dose 750 MG; Start 10/12/18 at 13:00 Sodium Bicarbonate 100 meq/Dextrose/ Sodium Chloride 1,000 ml @ 75 mls/hr [id number] IV Last administered on 10/14/18 08:34; Admin Dose 75 MLS/HR; Start 10/12/18 at 14:00 Metoprolol Tartrate (Lopressor) 25 mg BID PO Last administered on 10/14/18 08:17; Admin Dose 25 MG; Start 10/12/18 at 15:00 Metoprolol Tartrate (Lopressor) 5 mg Q4H PRN IV HR>110 Hold SBP<100; Start 10/12/18 at 15:00 Levetiracetam (Keppra) 750 mg BID GTB Last administered on 10/14/18 08:18; Admin Dose 750 MG; Start 10/12/18 at 21:00 Enoxaparin Sodium (Lovenox) 70 mg DAILY SC Last administered on 10/14/18 08:26; Admin Dose 70 MG; Start 10/14/18 at 09:00 VALARIE BENNETT MD Oct 14, 2018 10:41
--- NOTE | 2018-10-14 11:45 | CONS ---
Assessment/Plan Assessment/Plan Hospital Course (Demo Recall) IMP: 1. Nstemi- in setting of renal failure and shock. Downtrended 2.Shock-on levo 3.Tachycardia-S tach at this time 4.UTI 5.PAF with RVR-now back in SR this AM 6.Renal failure 7.Dyslipidemia 8.Sz d/o 9. Hypothyroid 10. anemia-slight worsening Recc: -ICU -BB as tolerated only -Follow rhythm and rate closely -Continue abx's and f/u cx data -Continue statin -Now on levenox but with worsening anemia today and thus may need to hold all together. [facility] Transfusion PRBc's -now in SR on po amio. Will follow rhythm clsoely Consultation Date/Type/Reason Admit Date/Time Oct 06, 2018 at 09:29 Initial Consult Date 10/06/18 Type of Consult Cardiology Reason for Consultation AF/hypotension Requesting Provider: MANUEL ALEMAN Date/Time of Note DATE: 10/14/18 TIME: 11:43 Exam/Review of Systems Vital Signs Vitals Vital Signs Date Temp Pulse Resp B/P (MAP) Pulse Ox O2 O2 Flow FiO2 Time Delivery Rate 10/14/18 71 16 103/64 100 Mechanical 11:00 (77) Ventilator 10/14/18 30 09:22 10/14/18 98.1 07:00 Intake and Output 10/13/18 10/13/18 10/14/18 1515:00 23:00 07:00 IntakeIntake Total 1770.5 ml 940 ml 1240 ml OutputOutput Total 500 ml 365 ml 350 ml BalanceBalance 1270.5 ml 575 ml 890 ml Exam Exam Review of Systems: CONSTITUTIONAL: No fevers, chills. PULMONARY: No sob CARDIOVASCULAR: No chest pain/palpitations GASTROINTESTINAL: No nausea/vomiting. GENITOURINARY: No hematuria/dysuria. MUSCULOSKELETAL: No myagias/arthalgias. PSYCHIATRIC: The patient denies depression. NEUROLOGIC:encephalopathic Constitutional: alert Psych: no complaints Head: normocephalic ENMT: mucosa pink and moist Neck: supple, jvd (9 cm water) Respiratory: diminished breath sounds (at bases/B) Cardiovascular: regular rate and rhythm Gastrointestinal: soft, non-tender Musculoskeletal: muscle tone (normal) Extremities: edema (trace/B) Neurological: other (No focal deficits) Labs Result Diagram: 10/14/18 0540 10/14/18 0431 Results 24hrs Laboratory Tests Test 10/13/18 13:11 10/14/18 04:31 10/14/18 05:40 10/14/18 08:32 Activated > 180.0 *H Partial Thrombopl ast Time White Blood Count 6.6 # 7.3 Red Blood Count 1.74 #L 1.86 L Hemoglobin 5.6 #*L 6.0 *L Hematocrit 17.0 #L 18.0 L Mean Corpuscular 97.7 96.8 Volume Mean Corpuscular 32.2 32.3 Hemoglobin Mean Corpuscular 32.9 33.3 Hemoglobin Concen t Red Cell 15.1 H 15.0 H Distribution Width Platelet Count 330 337 Mean Platelet 11.8 H 11.3 H Volume Immature 2.000 H 1.500 H Granulocytes % Neutrophils % 74.0 71.7 Segmented 72 Neutrophils % (Manual) Band Neutrophils 4 % (Manual) Lymphocytes % 13.4 L 16.4 Lymphocytes % 13 L (Manual) Reactive 3 H Lymphocytes % (Manual) Monocytes % 10.1 9.8 Monocytes % 7 (Manual) Eosinophils % 0.3 0.6 Basophils % 0.2 0.0 Myelocytes % 1 H (Manual) Nucleated Red 0.3 H 0.6 H Blood Cells % Immature 0.130 H 0.110 H Granulocytes # Neutrophils # 4.9 5.2 Neutrophils # 4.8 (Manual) Band Neutrophils 0.2 # Lymphocytes 0.8 (Manual) Lymphocytes # 0.9 1.2 Reactive 0.1 H Lymphocytes # Monocytes # 0.7 0.7 Monocytes # 0.4 (Manual) Eosinophils # 0.0 0.0 Basophils # 0.0 0.0 Myelocytes # 0.0 Nucleated Red 0.0 0.0 Blood Cells # Platelet Estimate NORMAL Polychromasia 3+ Hypochromasia 2+ Anisocytosis 1+ Target Cells 1+ Sodium Level 148 H Potassium Level 3.5 Chloride Level 114 H Carbon Dioxide 26 Level Anion Gap 8 Blood Urea 48 H Nitrogen Creatinine 1.10 H Est Glomerular 50 L Filtrat Rate mL/min Glucose Level 101 Calcium Level 8.5 Phosphorus Level 3.0 Magnesium Level 1.8 Blood Gas Blood arterial Specimen Source Arterial Blood 10/14/2018 8:56:3 Date Drawn 1 AM Arterial Blood pH 7.601 *H (Temp corrected) Arterial Blood 24.8 L pCO2 (Temp correct) Arterial Blood 146.5 H pO2 (Temp corrected) Arterial Blood 23.9 HCO3 Arterial Blood 2.3 Base Excess Arterial Blood 98.7 H Oxygen Saturation Greg Test ACCEPTAB Arterial Blood Right Radial Gas Puncture Site Arterial 0.3 Blood Carboxyhemo globin Arterial Blood 0.3 Methemoglobin Blood Gas A-a O2 38.3 H Differential Oxyhemoglobin 98.1 Percent Blood Gas 37.0 Temperature Blood Gas 20.0 Respiration Rate Blood Gas Actual 24 Respiration Rate Blood Gas VENT - AC Modality FiO2 30.0 Blood Gas Tidal 550.0 Volume Blood Gas Low 5.0 PEEP Setting Blood Gas ANJANA GILLILAND Critical Value Read Back Blood Gas TM Notified Whom Blood Gas 10/14/2018 9:07:0 Notified Time 3 AM Medications Medications Current Medications IV Flush (NS 3 ml) 3 ml PER PROTOCOL IV ; Start 10/06/18 at 09:30 Ondansetron HCl (Zofran Inj) 4 mg Q6H PRN IV NAUSEA/VOMITING; Start 10/06/18 at 09:30 Acetaminophen (Tylenol Tab) 650 mg Q6H PRN PO .PAIN 1-3 OR TEMP Last administered on 10/12/18at 08:27; Admin Dose 650 MG; Start 10/06/18 at 09:30 Acetaminophen/ Hydrocodone Bitart ([place] (5/325)) 1 tab Q6H PRN PO .MOD PAIN 4- 6; Start 10/06/18 at 09:30 Morphine Sulfate (morphine) 2 mg Q4H PRN IV .SEVERE PAIN 7-10 Last administered on 10/12/18at 23:00; Admin Dose 2 MG; Start 10/06/18 at 09:30 Docusate Sodium (Colace) 100 mg Q12H PRN PO .CONSTIPATION; Start 10/06/18 at 09:30 Magnesium Hydroxide (Milk Of Mag) 30 ml DAILY PRN PO .CONSTIPATION; Start 10/06/18 at 09:30 Lorazepam (Ativan) 0.5 mg Q6H PRN IV ANXIETY Last administered on 10/14/18at 02:16; Admin Dose 0.5 MG; Start 10/06/18 at 09:30 Albuterol/ Ipratropium (Duoneb) 3 ml Q4H RESP THERAPY PRN HHN SHORTNESS OF BREATH; Start 10/06/18 at 09:30 Nitroglycerin (Nitroglycerin (Sl Tab) 0.4 Mg) 1 tab Q5M PRN SL ANGINA; Start 10/06/18 at 09:30 Bisacodyl (Dulcolax) 10 mg DAILY PRN PO CONSTIPATION; Start 10/06/18 at 09:30 Donepezil HCl (Aricept) 5 mg QHS PO Last administered on 10/13/18 20:25; Admin Dose 5 MG; Start 10/06/18 at 21:00 Lactulose (Enulose) 20 gm TID PRN PO CONSTIPATION; Start 10/06/18 at 09:30 Levothyroxine Sodium (Synthroid) 50 mcg BEFORE BREAKFAST PO Last administered on 10/14/18 06:25; Admin Dose 50 MCG; Start 10/07/18 at 07:00 Mineral Oil (Fleet Mineral Oil Enema) 133 ml DAILY PRN [place] CONSTIPATION; Start 10/06/18 at 09:30 Multivitamins Therapeutic (Theragran) 1 tab DAILY PO Last administered on 10/14/18 08:18; Admin Dose 1 TAB; Start 10/07/18 at 09:00 Norepinephrine 32 mg/Dextrose 250 ml @ 0.47 mls/hr TITRATE IV Last admi nistered on 10/08/18 12:53; Admin Dose 4.69 MLS/HR; Start 10/06/18 at 11:30 Aspirin (Aspirin) 81 mg DAILY NGT Last administered on 10/11/18 09:35; Admin Dose 81 MG; Start 10/06/18 at 12:30; Status Hold Atorvastatin Calcium (Lipitor) 40 mg DAILY@21 NGT Last administered on 10/13/18 20:25; Admin Dose 40 MG; Start 10/06/18 at 21:00 Miscellaneous Information (Flu Vaccine Previously Dispensed) FLU VACCINE PREVIOU... NOTE PRN XX NOTE; Start 10/06/18 at 18:00 Meropenem/Sodium Chloride 50 ml @ 100 mls/hr Q12 IVPB Last administered on 10/14/18 08:18; Admin Dose 100 MLS/HR; Start 10/07/18 at 12:00 Midazolam HCl 50 ml @ 0 mls/hr TITRATE IV Last administered on 10/09/18 22:21; Admin Dose 3 MLS/HR; Start 10/08/18 at 10:00 Fentanyl 100 ml @ 2.5 mls/hr TITRATE IV Last administered on 10/10/18 01:01; Admin Dose 2.5 MLS/HR; Start 10/08/18 at 16:30 Lorazepam (Ativan) 1 mg Q6H PRN IV seizure Last administered on 10/14/18 09:55; Admin Dose 1 MG; Start 10/08/18 at 16:00 Amiodarone HCl (Cordarone) 200 mg BID PO Last administered on 10/14/18 08:18; Admin Dose 200 MG; Start 10/09/18 at 21:00 Famotidine (Pepcid) 20 mg DAILY NGT Last administered on 10/14/18 08:18; Admin Dose 20 MG; Start 10/10/18 at 09:00 Phenylephrine HCl 250 ml @ 75 mls/hr TITRATE IV Last administered on 10/12/18 01:38; Admin Dose 6 MLS/HR; Start 10/09/18 at 13:00 Polyethylene Glycol (Miralax) 17 gm BID PRN PO constipation; Start 10/10/18 at 22:00 Valproate Sodium (Depakene Liquid Cup) 750 mg Q8H GTB Last administered on 10/14/18 04:59; Admin Dose 750 MG; Start 10/12/18 at 13:00 Sodium Bicarbonate 100 meq/Dextrose/ Sodium Chloride 1,000 ml @ 75 mls/hr [id number] IV Last administered on 10/14/18 08:34; Admin Dose 75 MLS/HR; Start 10/12/18 at 14:00 Metoprolol Tartrate (Lopressor) 25 mg BID PO Last administered on 10/14/18 08:17; Admin Dose 25 MG; Start 10/12/18 at 15:00 Metoprolol Tartrate (Lopressor) 5 mg Q4H PRN IV HR>110 Hold SBP<100; Start 10/12/18 at 15:00 Levetiracetam (Keppra) 750 mg BID GTB Last administered on 10/14/18 08:18; Admin Dose 750 MG; Start 10/12/18 at 21:00 Enoxaparin Sodium (Lovenox) 70 mg DAILY SC Last administered on 10/14/18at 08:26; Admin Dose 70 MG; Start 10/14/18 at 09:00 ANGELA CARY Oct 14, 2018 11:45
--- NOTE | 2018-10-14 12:01 | CONS ---
Assessment/Plan Assessment/Plan Hospital Course (Demo Recall) No acute events overnight patient remains intubated in no distress she is off pressors no fevers overnight WBC 7.8 H&H 6 and 18 platelets 337 neutrophils 71.7 BUN 48 creatinine 1.10 Chest x-ray this morning revealed improved aeration of both lungs Microbiology: Blood and urine cultures grew E. coli Indwelling: Endotracheal tube NG tube Piña catheter right IJ triple-lumen catheter Allergy: Penicillin, clindamycin Antibiotics: Merrem Physical examination: Well-developed chronically ill-appearing elderly woman. The patient is in no distress. Head atraumatic normocephalic. Neck is supple. Chest rise symmetrical, breath sounds diminished bases. Heart: S1-S2, tachycardic, irregular. Abdomen soft bowel sounds hypoactive. Extremities mottled cyanotic Assessment: 1. Sepsis with shock 2. E coli bacteremia secondary to urinary tract infection 3. Acute hypoxemic respiratory failure 4. Healthcare associated pneumonia, possibly aspiration 4. Acute possibly on chronic kidney disease 5. Non-ST elevation NC 6. Atrial fibrillation with RVR Plan: Clinically unchanged, repeat blood cultures negative. Continue present care, abx to complete treatment for urosepsis, follow recommendations of specialists Consultation Date/Type/Reason Admit Date/Time Oct 06, 2018 at 09:29 Initial Consult Date 10/06/18 Type of Consult id Requesting Provider: MANUEL ALEMAN Date/Time of Note DATE: 10/14/18 TIME: 11:59 Exam/Review of Systems Exam Vitals Vital Signs Date Temp Pulse Resp B/P (MAP) Pulse Ox O2 O2 Flow FiO2 Time Delivery Rate 10/14/18 86 23 100 30 11:48 10/14/18 103/64 Mechanical 11:00 (77) Ventilator 10/14/18 98.1 07:00 Intake and Output 10/13/18 10/13/18 10/14/18 1414:59 22:59 06:59 IntakeIntake Total 1695.5 ml 940 ml 1240 ml OutputOutput Total 500 ml 370 ml 345 ml BalanceBalance 1195.5 ml 570 ml 895 ml Results Result Diagram: 10/14/18 0540 10/14/18 0431 Results 24hrs Laboratory Tests Test 10/13/18 13:11 10/14/18 04:31 10/14/18 05:40 10/14/18 08:32 Activated > 180.0 *H Partial Thrombopl ast Time White Blood Count 6.6 # 7.3 Red Blood Count 1.74 #L 1.86 L Hemoglobin 5.6 #*L 6.0 *L Hematocrit 17.0 #L 18.0 L Mean Corpuscular 97.7 96.8 Volume Mean Corpuscular 32.2 32.3 Hemoglobin Mean Corpuscular 32.9 33.3 Hemoglobin Concen t Red Cell 15.1 H 15.0 H Distribution Width Platelet Count 330 337 Mean Platelet 11.8 H 11.3 H Volume Immature 2.000 H 1.500 H Granulocytes % Neutrophils % 74.0 71.7 Segmented 72 Neutrophils % (Manual) Band Neutrophils 4 % (Manual) Lymphocytes % 13.4 L 16.4 Lymphocytes % 13 L (Manual) Reactive 3 H Lymphocytes % (Manual) Monocytes % 10.1 9.8 Monocytes % 7 (Manual) Eosinophils % 0.3 0.6 Basophils % 0.2 0.0 Myelocytes % 1 H (Manual) Nucleated Red 0.3 H 0.6 H Blood Cells % Immature 0.130 H 0.110 H Granulocytes # Neutrophils # 4.9 5.2 Neutrophils # 4.8 (Manual) Band Neutrophils 0.2 # Lymphocytes 0.8 (Manual) Lymphocytes # 0.9 1.2 Reactive 0.1 H Lymphocytes # Monocytes # 0.7 0.7 Monocytes # 0.4 (Manual) Eosinophils # 0.0 0.0 Basophils # 0.0 0.0 Myelocytes # 0.0 Nucleated Red 0.0 0.0 Blood Cells # Platelet Estimate NORMAL Polychromasia 3+ Hypochromasia 2+ Anisocytosis 1+ Target Cells 1+ Sodium Level 148 H Potassium Level 3.5 Chloride Level 114 H Carbon Dioxide 26 Level Anion Gap 8 Blood Urea 48 H Nitrogen Creatinine 1.10 H Est Glomerular 50 L Filtrat Rate mL/min Glucose Level 101 Calcium Level 8.5 Phosphorus Level 3.0 Magnesium Level 1.8 Blood Gas Blood arterial Specimen Source Arterial Blood 10/14/2018 8:56:3 Date Drawn 1 AM Arterial Blood pH 7.601 *H (Temp corrected) Arterial Blood 24.8 L pCO2 (Temp correct) Arterial Blood 146.5 H pO2 (Temp corrected) Arterial Blood 23.9 HCO3 Arterial Blood 2.3 Base Excess Arterial Blood 98.7 H Oxygen Saturation Greg Test ACCEPTAB Arterial Blood Right Radial Gas Puncture Site Arterial 0.3 Blood Carboxyhemo globin Arterial Blood 0.3 Methemoglobin Blood Gas A-a O2 38.3 H Differential Oxyhemoglobin 98.1 Percent Blood Gas 37.0 Temperature Blood Gas 20.0 Respiration Rate Blood Gas Actual 24 Respiration Rate Blood Gas VENT - AC Modality FiO2 30.0 Blood Gas Tidal 550.0 Volume Blood Gas Low 5.0 PEEP Setting Blood Gas ANJANA GILLILAND Critical Value Read Back Blood Gas TM Notified Whom Blood Gas 10/14/2018 9:07:0 Notified Time 3 AM Medications Medication Current Medications IV Flush (NS 3 ml) 3 ml PER PROTOCOL IV ; Start 10/06/18 at 09:30 Ondansetron HCl (Zofran Inj) 4 mg Q6H PRN IV NAUSEA/VOMITING; Start 10/06/18 at 09:30 Acetaminophen (Tylenol Tab) 650 mg Q6H PRN PO .PAIN 1-3 OR TEMP Last administered on 10/12/18at 08:27; Admin Dose 650 MG; Start 10/06/18 at 09:30 Acetaminophen/ Hydrocodone Bitart ([place] (5/325)) 1 tab Q6H PRN PO .MOD PAIN 4-6; Start 10/06/18 at 09:30 Morphine Sulfate (morphine) 2 mg Q4H PRN IV .SEVERE PAIN 7-10 Last administered on 10/12/18at 23:00; Admin Dose 2 MG; Start 10/06/18 at 09:30 Docusate Sodium (Colace) 100 mg Q12H PRN PO .CONSTIPATION; Start 10/06/18 at 09:30 Magnesium Hydroxide (Milk Of Mag) 30 ml DAILY PRN PO .CONSTIPATION; Start 10/06/18 at 09:30 Lorazepam (Ativan) 0.5 mg Q6H PRN IV ANXIETY Last administered on 10/14/18at 02:16; Admin Dose 0.5 MG; Start 10/06/18 at 09:30 Albuterol/ Ipratropium (Duoneb) 3 ml Q4H RESP THERAPY PRN HHN SHORTNESS OF BREATH; Start 10/06/18 at 09:30 Nitroglycerin (Nitroglycerin (Sl Tab) 0.4 Mg) 1 tab Q5M PRN SL ANGINA; Start 10/06/18 at 09:30 Bisacodyl (Dulcolax) 10 mg DAILY PRN PO CONSTIPATION; Start 10/06/18 at 09:30 Donepezil HCl (Aricept) 5 mg QHS PO Last administered on 10/13/18 20:25; Admin Dose 5 MG; Start 10/06/18 at 21:00 Lactulose (Enulose) 20 gm TID PRN PO CONSTIPATION; Start 10/06/18 at 09:30 Levothyroxine Sodium (Synthroid) 50 mcg BEFORE BREAKFAST PO Last administered on 10/14/18 06:25; Admin Dose 50 MCG; Start 10/07/18 at 07:00 Mineral Oil (Fleet Mineral Oil Enema) 133 ml DAILY PRN [place] CONSTIPATION; Start 10/06/18 at 09:30 Multivitamins Therapeutic (Theragran) 1 tab DAILY PO Last administered on 10/14/18 08:18; Admin Dose 1 TAB; Start 10/07/18 at 09:00 Norepinephrine 32 mg/Dextrose 250 ml @ 0.47 mls/hr TITRATE IV Last administered on 10/08/18 12:53; Admin Dose 4.69 MLS/HR; Start 10/06/18 at 11:30 Aspirin (Aspirin) 81 mg DAILY NGT Last administered on 10/11/18 09:35; Admin Dose 81 MG; Start 10/06/18 at 12:30; Status Hold Atorvastatin Calcium (Lipitor) 40 mg DAILY@21 NGT Last administered on 10/13/18 20:25; Admin Dose 40 MG; Start 10/06/18 at 21:00 Miscellaneous Information (Flu Vaccine Previously Dispensed) FLU VACCINE PREVIOU... NOTE PRN XX NOTE; Start 10/06/18 at 18:00 Meropenem/Sodium Chloride 50 ml @ 100 mls/hr Q12 IVPB Last administered on 10/14/18 08:18; Admin Dose 100 MLS/HR; Start 10/07/18 at 12:00 Midazolam HCl 50 ml @ 0 mls/hr TITRATE IV Last administered on 10/09/18 22:21; Admin Dose 3 MLS/HR; Start 10/08/18 at 10:00 Fentanyl 100 ml @ 2.5 mls/hr TITRATE IV Last administered on 10/10/18 01:01; Admin Dose 2.5 MLS/HR; Start 10/08/18 at 16:30 Lorazepam (Ativan) 1 mg Q6H PRN IV seizure Last administered on 10/14/18 09:55; Admin Dose 1 MG; Start 10/08/18 at 16:00 Amiodarone HCl (Cordarone) 200 mg BID PO Last administered on 10/14/18 08:18; Admin Dose 200 MG; Start 10/09/18 at 21:00 Famotidine (Pepcid) 20 mg DAILY NGT Last administered on 10/14/18 08:18; Admin Dose 20 MG; Start 10/10/18 at 09:00 Phenylephrine HCl 250 ml @ 75 mls/hr TITRATE IV Last administered on 10/12/18 01:38; Admin Dose 6 MLS/HR; Start 10/09/18 at 13:00 Polyethylene Glycol (Miralax) 17 gm BID PRN PO constipation; Start 10/10/18 at 22:00 Valproate Sodium (Depakene Liquid Cup) 750 mg Q8H GTB Last administered on 10/14/18 04:59; Admin Dose 750 MG; Start 10/12/18 at 13:00 Sodium Bicarbonate 100 meq/Dextrose/ Sodium Chloride 1,000 ml @ 75 mls/hr [id number] IV Last administered on 10/14/18 08:34; Admin Dose 75 MLS/HR; Start 10/12/18 at 14:00 Metoprolol Tartrate (Lopressor) 25 mg BID PO Last administered on 10/14/18 08:17; Admin Dose 25 MG; Start 10/12/18 at 15:00 Metoprolol Tartrate (Lopressor) 5 mg Q4H PRN IV HR>110 Hold SBP<100; Start 10/12/18 at 15:00 Levetiracetam (Keppra) 750 mg BID GTB Last administered on 10/14/18 08:18; Admin Dose 750 MG; Start 10/12/18 at 21:00 Enoxaparin Sodium (Lovenox) 70 mg DAILY SC Last administered on 10/14/18 08:26; Admin Dose 70 MG; Start 10/14/18 at 09:00 MARKOS BRADY NP Oct 14, 2018 12:01
[2018-10-14] MEDS ORDERED: VALPROATE INJ 1,000 MG in SOD CHLORIDE 0.9% 100 ML IVPB ONE (14:30)
[2018-10-14] MEDS ORDERED: LORAZEPAM 2 MG INJ IV ONE (14:30)
--- NOTE | 2018-10-14 15:44 | CONS ---
Assessment/Plan Assessment/Plan Hospital Course 67 F c/ dementia, epilepsy, and other comorbidities, who presents for management of cardiopulmonary Sx. She was noted to have a generalized convulsion on 10/08, for which neurology is consulted... Certainly her acute illness is lowering her seizure threshold.. CTH is without acute intracranial pathology EEG is notable for severe left hemispheric on diffuse slowing 10/12: breakthrough seizure --> ativan rescue P: Repeat EEG today Depacon [id number] iv, increase maintenance depakote to 1000 mg q8h Bolus Keppra 1g iv, then Increase Keppra to 1000mg bid for now, given improvement in renal function Ativan iv prn prolonged seizure or cluster OK to continue asa for primary stroke prevention daily given her afib Continued medical management per primary Will follow clinically Consultation Date/Type/Reason Admit Date/Time Oct 06, 2018 at 09:29 Type of Consult Neurology Reason for Consultation seizure Requesting Provider: MANUEL ALEMAN Date/Time of Note DATE: 10/14/18 TIME: 15:44 24 HR Interval Summary Free Text/Dictation Continues critical care. Subjective hx not possible: pt non-verbal Exam Vital Signs Vitals Vital Signs Date Temp Pulse Resp B/P (MAP) Pulse Ox O2 O2 Flow FiO2 Time Delivery Rate 10/14/18 78 19 100 30 15:22 10/14/18 111/70 Mechanical 15:00 (84) Ventilator 10/14/18 99.2 12:00 Intake and Output 10/13/18 10/13/18 10/14/18 1414:59 22:59 06:59 IntakeIntake Total 1695.5 ml 940 ml 1240 ml OutputOutput Total 500 ml 370 ml 345 ml BalanceBalance 1195.5 ml 570 ml 895 ml Exam PE: Gen Appearance: No Apparent Distress HEENT: Intubated Cardiovascular: Regular rate Abdomen: Soft Extremities: Dry NE: The patient was obtunded and nonverbal. Had rhythmic facial and tongue twitching. Cranial nerve examination was limited by mental status. Pupils were equal and reactive to light. There was no afferent pupillary defect. Funduscopic examination was limited. Face was grossly symmetric, w/ present corneal and cough reflexes. Tone was normal. Muscle bulk was normal. Rhythmic jerking of her upper extre mities was noted. The patient withdrew all extremities. Coordination and gait testing was limited by mental status. Arm and leg reflexes were symmetric. Beck's sign was absent. Plantar responses were flexor. CHEYENNE JEAN NP Oct 14, 2018 15:44 FROYLAN WOOD Oct 14, 2018 15:59
[2018-10-14] MEDS ORDERED: LIDOCAINE 1% (MPF) 5 ML VIAL SC ONE (16:00)
[2018-10-14] MEDS ORDERED: LEVETIRACETAM 1000 MG (PMX) 100 ML IVPB ONE (16:00)
[2018-10-14] MEDS: ATORVASTATIN 40 MG TAB NGT SCH (20:12)
[2018-10-14] MEDS: LEVETIRACETAM (100 MG/ML) 5ML CUP GTB SCH (20:12)
[2018-10-14] MEDS: DONEPEZIL 5 MG TAB PO SCH (20:13)
[2018-10-15] VITALS (36 sets, daily range): BP systolic 85–131; BP diastolic 51–106; PULSE 55–80; RESP 13–35
[2018-10-15] MEDS: VALPROIC ACID LIQUID CUP 250 MG/5 ML CUP GTB SCH ×3 (05:34→22:32)
[2018-10-15] MEDS: LORAZEPAM 2 MG INJ IV PRN ×3 (05:39→19:59)
--- NOTE | 2018-10-15 08:27 | CONS ---
Consult Date/Type/Reason Admit Date/Time Oct 06, 2018 at 09:29 Initial Consult Date 10/06/18 Requesting Provider: MANUEL ALEMAN Date/Time of Note DATE: 10/15/18 TIME: 08:24 Subjective NO acute events - pt comfortable appearing - intubated, NGT - dispo per primary team per nurse: NO F/C/ + SOB, no V/N/D Objective Vitals Vital Signs Date Temp Pulse Resp B/P (MAP) Pulse Ox O2 O2 Flow FiO2 Time Delivery Rate 10/15/18 70 17 126/68 99 Mechanical 06:00 (87) Ventilator 10/15/18 30 05:43 10/15/18 98.0 04:00 Intake and Output 10/14/18 10/14/18 10/15/18 1515:00 23:00 07:00 IntakeIntake Total 1540 ml 1465 ml 1110 ml OutputOutput Total 410 ml 475 ml 400 ml BalanceBalance 1130 ml 990 ml 710 ml Exam General: WN/WD/NAD, AOx 0 HEENT: Unicetric/atraumatic/EOMI (does not follow commands) NECK: JVD elevated, no thyromegaly, intubated, NGT Lymph: no lymphadenopathy HEART: regular with no S3, II/ systolic murmur at apex LUNGS: Coarse sounds ABD: soft, NT, ND, +BS : Intact Neuro: non focal SKIN: chronic changes EXT: trace edema Results/Medications Result Diagram: 10/15/18 0400 10/15/18 0400 Results 24 hrs Laboratory Tests Test 10/14/18 08:32 10/14/18 12:30 10/14/18 20:05 10/15/18 04:00 Blood Gas Blood arterial Specimen Source Arterial Blood 10/14/2018 8:56:3 Date Drawn 1 AM Arterial Blood pH 7.601 *H (Temp corrected) Arterial Blood 24.8 L pCO2 (Temp correct) Arterial Blood 146.5 H pO2 (Temp corrected) Arterial Blood 23.9 HCO3 Arterial Blood 2.3 Base Excess Arterial Blood 98.7 H Oxygen Saturation Greg Test ACCEPTAB Arterial Blood Right Radial Gas Puncture Site Arterial 0.3 Blood Carboxyhemo globin Arterial Blood 0.3 Methemoglobin Blood Gas A-a O2 38.3 H Differential Oxyhemoglobin 98.1 Percent Blood Gas 37.0 Temperature Blood Gas 20.0 Respiration Rate Blood Gas Actual 24 Respiration Rate Blood Gas VENT - AC Modality FiO2 30.0 Blood Gas Tidal 550.0 Volume Blood Gas Low 5.0 PEEP Setting Blood Gas ANJANA GILLILAND Critical Value Read Back Blood Gas TM Notified Whom Blood Gas 10/14/2018 9:07:0 Notified Time 3 AM Stool Occult NEGATIVE Blood White Blood Count 7.2 6.6 Red Blood Count 2.61 #L 2.53 L Hemoglobin 8.2 #L 7.9 L Hematocrit 24.4 #L 23.9 L Mean Corpuscular 93.5 94.5 Volume Mean Corpuscular 31.4 31.2 Hemoglobin Mean Corpuscular 33.6 33.1 Hemoglobin Concen t Red Cell 16.0 H 16.4 H Distribution Width Platelet Count 321 324 Mean Platelet 11.2 H 11.1 H Volume Immature 1.700 H 1.200 H Granulocytes % Neutrophils % 71.8 74.3 Lymphocytes % 16.7 15.1 Monocytes % 9.1 8.9 Eosinophils % 0.4 0.3 Basophils % 0.3 0.2 Nucleated Red 0.6 H 0.9 H Blood Cells % Immature 0.120 H 0.080 H Granulocytes # Neutrophils # 5.2 4.9 Lymphocytes # 1.2 1.0 Monocytes # 0.7 0.6 Eosinophils # 0.0 0.0 Basophils # 0.0 0.0 Nucleated Red 0.0 0.1 H Blood Cells # Sodium Level 152 H Potassium Level 4.0 Chloride Level 115 H Carbon Dioxide 28 Level Anion Gap 9 Blood Urea 42 H Nitrogen Creatinine 1.01 H Est Glomerular 55 L Filtrat Rate mL/min Glucose Level 114 Calcium Level 8.5 Phosphorus Level 2.5 Magnesium Level 1.4 L Test 10/15/18 05:04 Lab Scanned BLOOD TRANSFUSIO Report N Home Meds Active Scripts Vancomycin Hcl (Vancocin) 1 Gm Soln, 500 MG IV Q12 for 7 Days, VIAL 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 08/31/18 Aztreonam (AZTREONAM) 1 Gm Vial, 1 GM IV* Q12 for 7 Days, VIAL 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 08/31/18 Reported Medications Donepezil* (Donepezil*) 5 Mg Tablet, 5 MG PO QHS, #30 TAB 08/28/18 Divalproex Sodium* (Depakote*) 500 Mg Tablet.dr, 500 MG PO BID, #120 TAB 08/28/18 Docusate Sodium* (Colace*) 100 Mg Capsule, 100 MG PO BID PRN for CONSTIPATION, #60 CAP 08/28/18 Atorvastatin Calcium (Atorvastatin Calcium) 10 Mg Tablet, 10 MG PO QHS, #30 TAB 08/28/18 Lorazepam* (Lorazepam*) 1 Mg Tablet, 1 MG PO BID PRN for ANXIETY, #30 TAB 08/28/18 Lactulose* (Lactulose*) 20 Gm/30 Ml Solution, 20 GM PO TID PRN for CONSTIPATION, ML 08/28/18 Trazodone Hcl* (Trazodone Hcl*) 100 Mg Tablet, 100 MG PO QHS, #30 TAB 08/28/18 Quetiapine Fumarate* (Seroquel*) 200 Mg Tablet, 200 MG PO HS, #30 TAB 08/28/18 Sennosides* (Senna Lax*) 8.6 Mg Tablet, 2 TAB PO QHS PRN for CONSTIPATION, TAB 08/28/18 Multivitamins* (Theragran*) 1 Tab Tab, 1 TAB PO DAILY, TAB 08/28/18 Polyethylene Glycol* (Miralax*) 17 Gm Powd.pack, 17 GM PO BID, #60 PACKET 08/28/18 Metoprolol Tartrate* (Lopressor*) 25 Mg Tab, 12.5 MG PO DAILY, #60 TAB HOLD IF SBP<115 OR HR<60 08/28/18 Levothyroxine Sodium* (Levothyroxine Sodium*) 50 Mcg Tablet, 50 MCG PO BEFORE BREAKFAST, #30 TAB 08/28/18 Levetiracetam* (Keppra*) 500 Mg Tablet, 500 MG PO BID, TAB 08/28/18 Gabapentin* (Gabapentin*) 400 Mg Capsule, 400 MG PO TID, #90 CAP 08/28/18 Phenylephrine HCl/[place] Butter* (Preparation H* Suppository) 1 Each Supp.rect, 1 EACH UT DAILY PRN for CONSTIPATION, SUPP.RECT 08/28/18 Mineral Oil* (Fleet* Mineral Oil Enema) 133 Ml Oil, 133 ML UT DAILY PRN for CONSTIPATION, ENEMA 08/28/18 Acetaminophen* (Acetaminophen*) 650 Mg Tablet, 650 MG PO DAILY PRN for PAIN AND OR ELEVATED TEMP, #30 TAB 08/28/18 Bisacodyl* (Bisacodyl*) 5 Mg Tablet.dr, 10 MG PO DAILY PRN for CONSTIPATION, TAB 08/28/18 Medications Current Medications IV Flush (NS 3 ml) 3 ml PER PROTOCOL IV ; Start 10/06/18 at 09:30 Ondansetron HCl (Zofran Inj) 4 mg Q6H PRN IV NAUSEA/VOMITING; Start 10/06/18 at 09:30 Acetaminophen (Tylenol Tab) 650 mg Q6H PRN PO .PAIN 1-3 OR TEMP Last administered on 10/12/18at 08:27; Admin Dose 650 MG; Start 10/06/18 at 09:30 Acetaminophen/ Hydrocodone Bitart ([place] (5/325)) 1 tab Q6H PRN PO .MOD PAIN 4- 6; Start 10/06/18 at 09:30 Morphine Sulfate (morphine) 2 mg Q4H PRN IV .SEVERE PAIN 7-10 Last administered on 10/12/18at 23:00; Admin Dose 2 MG; Start 10/06/18 at 09:30 Docusate Sodium (Colace) 100 mg Q12H PRN PO .CONSTIPATION; Start 10/06/18 at 09:30 Magnesium Hydroxide (Milk Of Mag) 30 ml DAILY PRN PO .CONSTIPATION; Start 10/06/18 at 09:30 Lorazepam (Ativan) 0.5 mg Q6H PRN IV ANXIETY Last administered on 10/14/18at 02:16; Admin Dose 0.5 MG; Start 10/06/18 at 09:30 Albuterol/ Ipratropium (Duoneb) 3 ml Q4H RESP THERAPY PRN HHN SHORTNESS OF BREATH; Start 10/06/18 at 09:30 Nitroglycerin (Nitroglycerin (Sl Tab) 0.4 Mg) 1 tab Q5M PRN SL ANGINA; Start 10/06/18 at 09:30 Bisacodyl (Dulcolax) 10 mg DAILY PRN PO CONSTIPATION; Start 10/06/18 at 09:30 Donepezil HCl (Aricept) 5 mg QHS PO Last administered on 10/14/18at 20:13; Admin Dose 5 MG; Start 10/06/18 at 21:00 Lactulose (Enulose) 20 gm TID PRN PO CONSTIPATION; Start 10/06/18 at 09:30 Levothyroxine Sodium (Synthroid) 50 mcg BEFORE BREAKFAST PO Last administered on 10/14/18 06:25; Admin Dose 50 MCG; Start 10/07/18 at 07:00 Mineral Oil (Fleet Mineral Oil Enema) 133 ml DAILY PRN UT CONSTIPATION; Start 10/06/18 at 09:30 Multivitamins Therapeutic (Theragran) 1 tab DAILY PO Last administered on 10/14/18 08:18; Admin Dose 1 TAB; Start 10/07/18 at 09:00 Norepinephrine 32 mg/Dextrose 250 ml @ 0.47 mls/hr TITRATE IV Last administered on 10/08/18 12:53; Admin Dose 4.69 MLS/HR; Start 10/06/18 at 11:30 Aspirin (Aspirin) 81 mg DAILY NGT Last administered on 10/11/18 09:35; Admin Dose 81 MG; Start 10/06/18 at 12:30; Status Hold Atorvastatin Calcium (Lipitor) 40 mg DAILY@21 NGT Last administered on 10/14/18 20:12; Admin Dose 40 MG; Start 10/06/18 at 21:00 Miscellaneous Information (Flu Vaccine Previously Dispensed) FLU VACCINE PREVIOU... NOTE PRN XX NOTE; Start 10/06/18 at 18:00 Meropenem/Sodium Chloride 50 ml @ 100 mls/hr Q12 IVPB Last administered on 10/14/18 20:29; Admin Dose 100 MLS/HR; Start 10/07/18 at 12:00 Midazolam HCl 50 ml @ 0 mls/hr TITRATE IV Last administered on 10/09/18 22:21; Admin Dose 3 MLS/HR; Start 10/08/18 at 10:00 Fentanyl 100 ml @ 2.5 mls/hr TITRATE IV Last administered on 10/10/18 01:01; Admin Dose 2.5 MLS/HR; Start 10/08/18 at 16:30 Amiodarone HCl (Cordarone) 200 mg BID PO Last administered on 10/14/18 20:29; Admin Dose 200 MG; Start 10/09/18 at 21:00 Famotidine (Pepcid) 20 mg DAILY NGT Last administered on 10/14/18at 08:18; Admin Dose 20 MG; Start 10/10/18 at 09:00 Phenylephrine HCl 250 ml @ 75 mls/hr TITRATE IV Last administered on 10/12/18at 01:38; Admin Dose 6 MLS/HR; Start 10/09/18 at 13:00 Polyethylene Glycol (Miralax) 17 gm BID PRN PO constipation; Start 10/10/18 at 22:00 Sodium Bicarbonate 100 meq/Dextrose/ Sodium Chloride 1,000 ml @ 75 mls/hr [id number] IV Last administered on 10/14/18at 23:21; Admin Dose 75 MLS/HR; Start 10/12/18 at 14:00 Metoprolol Tartrate (Lopressor) 25 mg BID PO Last administered on 10/14/18at 20:12; Admin Dose 25 MG; Start 10/12/18 at 15:00 Metoprolol Tartrate (Lopressor) 5 mg Q4H PRN IV HR>110 Hold SBP<100; Start 10/12/18 at 15:00 Enoxaparin Sodium (Lovenox) 70 mg DAILY SC Last administered on 10/14/18at 08:26; Admin Dose 70 MG; Start 10/14/18 at 09:00 Lorazepam (Ativan) 2 mg Q6H PRN IV seizures Last administered on 10/15/18 05:39; Admin Dose 2 MG; Start 10/14/18 at 14:30 Valproate Sodium (Depakene Liquid Cup) 1,000 mg Q8H GTB Last administered on 10/15/18at 05:34; Admin Dose 1,000 MG; Start 10/14/18 at 21:00 Levetiracetam (Keppra Liquid) 1,000 mg BID GTB Last administered on 10/14/18at 20:12; Admin Dose 1,000 MG; Start 10/14/18 at 21:00 Magnesium Sulfate 3 gm/Dextrose 106 ml @ 35.333 mls/ hr ONCE ONCE IVPB ; Start 10/15/18 at 09:00; Stop 10/15/18 at 11:59 Assessment/Plan Hospital Course (Demo Recall) 1. CAD - with non-ST elevation myocardial infarction ion admition, stable noiw. 2. Atrial fibrillation with rapid ventricular response. Converted to sinus rhythm, now back in a. fib - SINUS NOW. 3. Hypertension. The patient is on Levophed. Continue to adjust medications as needed. She appears to be responding to IV hydration.TREATED. 4. Infection. Continue the patient on antibiotics. NO fevers. 5. Dementia. The patient does report vascular dementia. Defer to primary team for management. 6. Acute renal failure. Continue to hydrate the patient. Renal team will follow. CR hig, but good urine output now. 7. Resp failure - Intub since ? ZANE Cristobal MD Oct 15, 2018 08:27
[2018-10-15] MEDS: SODIUM BICARBONATE (IV ADD) 100 MEQ in DEXTROSE 5%-0.45% NACL 900 ML IV SCH (08:40)
[2018-10-15] MEDS ORDERED: MAGNESIUM SULFATE 3 GM in DEXTROSE 5% 100 ML IVPB ONE (09:00)
--- NOTE | 2018-10-15 09:03 | CONS ---
Consult Date/Type/Reason Admit Date/Time Oct 06, 2018 at 09:29 Initial Consult Date 10/06/18 Type of Consult Pulmonary Requesting Provider: MANUEL ALEMAN Date/Time of Note DATE: 10/15/18 TIME: 09:02 Subjective Still unresponsive on mechanical ventilation. Grimaces to painful stimuli otherwise not opening eyes or following commands. Objective Vital Signs Date Temp Pulse Resp B/P (MAP) Pulse Ox O2 O2 Flow FiO2 Time Delivery Rate 10/15/18 70 17 126/68 99 Mechanical 06:00 (87) Ventilator 10/15/18 30 05:43 10/15/18 98.0 04:00 Intake and Output 10/14/18 10/14/18 10/15/18 1414:59 22:59 06:59 IntakeIntake Total 1540 ml 1540 ml 1165 ml OutputOutput Total 410 ml 475 ml 450 ml BalanceBalance 1130 ml 1065 ml 715 ml Exam Elderly lady orally intubated on mechanical ventilation VITAL SIGNS: per chart NECK: Supple. No JVD or lymphadenopathy. CARDIAC EXAM: S1, S2. No added sounds or murmurs. CHEST: Diminished air entry bilaterally ABDOMEN: Soft, nontender. No guarding or rebound. EXTREMITIES: No cyanosis, clubbing or edema. NEUROLOGIC: Generalized weakness. No focal deficits. Vent Setting Ventilator Support Mode: AC Fraction of Inspired Oxygen pe: 30 Positive End Expiratory Pressu: 5.0 Results/Medications Result Diagram: 10/15/18 0400 10/15/18 0400 Results 24 hrs Laboratory Tests Test 10/14/18 12:30 10/14/18 20:05 10/15/18 04:00 10/15/18 05:04 Stool Occult NEGATIVE Blood White Blood Count 7.2 6.6 Red Blood Count 2.61 #L 2.53 L Hemoglobin 8.2 #L 7.9 L Hematocrit 24.4 #L 23.9 L Mean Corpuscular 93.5 94.5 Volume Mean Corpuscular 31.4 31.2 Hemoglobin Mean Corpuscular 33.6 33.1 Hemoglobin Concen t Red Cell 16.0 H 16.4 H Distribution Width Platelet Count 321 324 Mean Platelet 11.2 H 11.1 H Volume Immature 1.700 H 1.200 H Granulocytes % Neutrophils % 71.8 74.3 Lymphocytes % 16.7 15.1 Monocytes % 9.1 8.9 Eosinophils % 0.4 0.3 Basophils % 0.3 0.2 Nucleated Red 0.6 H 0.9 H Blood Cells % Immature 0.120 H 0.080 H Granulocytes # Neutrophils # 5.2 4.9 Lymphocytes # 1.2 1.0 Monocytes # 0.7 0.6 Eosinophils # 0.0 0.0 Basophils # 0.0 0.0 Nucleated Red 0.0 0.1 H Blood Cells # Sodium Level 152 H Potassium Level 4.0 Chloride Level 115 H Carbon Dioxide 28 Level Anion Gap 9 Blood Urea 42 H Nitrogen Creatinine 1.01 H Est Glomerular 55 L Filtrat Rate mL/min Glucose Level 114 Calcium Level 8.5 Phosphorus Level 2.5 Magnesium Level 1.4 L Lab Scanned BLOOD TRANSFUSIO Report N Medications Current Medications IV Flush (NS 3 ml) 3 ml PER PROTOCOL IV ; Start 10/06/18 at 09:30 Ondansetron HCl (Zofran Inj) 4 mg Q6H PRN IV NAUSEA/VOMITING; Start 10/06/18 at 09:30 Acetaminophen (Tylenol Tab) 650 mg Q6H PRN PO .PAIN 1-3 OR TEMP Last administered on 10/12/18at 08:27; Admin Dose 650 MG; Start 10/06/18 at 09:30 Acetaminophen/ Hydrocodone Bitart ([place] (5/325)) 1 tab Q6H PRN PO .MOD PAIN 4- 6; Start 10/06/18 at 09:30 Morphine Sulfate (morphine) 2 mg Q4H PRN IV .SEVERE PAIN 7-10 Last administered on 10/12/18at 23:00; Admin Dose 2 MG; Start 10/06/18 at 09:30 Docusate Sodium (Colace) 100 mg Q12H PRN PO .CONSTIPATION; Start 10/06/18 at 09:30 Magnesium Hydroxide (Milk Of Mag) 30 ml DAILY PRN PO .CONSTIPATION; Start 10/06/18 at 09:30 Lorazepam (Ativan) 0.5 mg Q6H PRN IV ANXIETY Last administered on 10/14/18at 02:16; Admin Dose 0.5 MG; Start 10/06/18 at 09:30 Albuterol/ Ipratropium (Duoneb) 3 ml Q4H RESP THERAPY PRN HHN SHORTNESS OF BREATH; Start 10/06/18 at 09:30 Nitroglycerin (Nitroglycerin (Sl Tab) 0.4 Mg) 1 tab Q5M PRN SL ANGINA; Start 10/06/18 at 09:30 Bisacodyl (Dulcolax) 10 mg DAILY PRN PO CONSTIPATION; Start 10/06/18 at 09:30 Donepezil HCl (Aricept) 5 mg QHS PO Last administered on 10/14/18 20:13; Admin Dose 5 MG; Start 10/06/18 at 21:00 Lactulose (Enulose) 20 gm TID PRN PO CONSTIPATION; Start 10/06/18 at 09:30 Levothyroxine Sodium (Synthroid) 50 mcg BEFORE BREAKFAST PO Last administered on 10/14/18 06:25; Admin Dose 50 MCG; Start 10/07/18 at 07:00 Mineral Oil (Fleet Mineral Oil Enema) 133 ml DAILY PRN IN CONSTIPATION; Start 10/06/18 at 09:30 Multivitamins Therapeutic (Theragran) 1 tab DAILY PO Last administered on 10/14/18 08:18; Admin Dose 1 TAB; Start 10/07/18 at 09:00 Norepinephrine 32 mg/Dextrose 250 ml @ 0.47 mls/hr TITRATE IV Last administered on 10/08/18 12:53; Admin Dose 4.69 MLS/HR; Start 10/06/18 at 11:30 Aspirin (Aspirin) 81 mg DAILY NGT Last administered on 10/11/18 09:35; Admin Dose 81 MG; Start 10/06/18 at 12:30; Status Hold Atorvastatin Calcium (Lipitor) 40 mg DAILY@21 NGT Last administered on 10/14/18 20:12; Admin Dose 40 MG; Start 10/06/18 at 21:00 Miscellaneous Information (Flu Vaccine Previously Dispensed) FLU VACCINE PREVIOU... NOTE PRN XX NOTE; Start 10/06/18 at 18:00 Meropenem/Sodium Chloride 50 ml @ 100 mls/hr Q12 IVPB Last administered on 10/14/18 20:29; Admin Dose 100 MLS/HR; Start 10/07/18 at 12:00 Midazolam HCl 50 ml @ 0 mls/hr TITRATE IV Last administered on 10/09/18 22:21; Admin Dose 3 MLS/HR; Start 10/08/18 at 10:00 Fentanyl 100 ml @ 2.5 mls/hr TITRATE IV Last administered on 10/10/18 01:01; Admin Dose 2.5 MLS/HR; Start 10/08/18 at 16:30 Amiodarone HCl (Cordarone) 200 mg BID PO Last administered on 10/14/18 20:29; Admin Dose 200 MG; Start 10/09/18 at 21:00 Famotidine (Pepcid) 20 mg DAILY NGT Last administered on 10/14/18 08:18; Admin Dose 20 MG; Start 10/10/18 at 09:00 Phenylephrine HCl 250 ml @ 75 mls/hr TITRATE IV Last administered on 10/12/18 01:38; Admin Dose 6 MLS/HR; Start 10/09/18 at 13:00 Polyethylene Glycol (Miralax) 17 gm BID PRN PO constipation; Start 10/10/18 at 22:00 Sodium Bicarbonate 100 meq/Dextrose/ Sodium Chloride 1,000 ml @ 75 mls/hr [id number] IV Last administered on 10/14/18 23:21; Admin Dose 75 MLS/HR; Start 10/12/18 at 14:00 Metoprolol Tartrate (Lopressor) 25 mg BID PO Last administered on 10/14/18 20:12; Admin Dose 25 MG; Start 10/12/18 at 15:00 Metoprolol Tartrate (Lopressor) 5 mg Q4H PRN IV HR>110 Hold SBP<100; Start 10/12/18 at 15:00 Enoxaparin Sodium (Lovenox) 70 mg DAILY SC Last administered on 10/14/18 08:26; Admin Dose 70 MG; Start 10/14/18 at 09:00 Lorazepam (Ativan) 2 mg Q6H PRN IV seizures Last administered on 10/15/18 05:39; Admin Dose 2 MG; Start 10/14/18 at 14:30 Valproate Sodium (Depakene Liquid Cup) 1,000 mg Q8H GTB Last administered on 10/15/18 05:34; Admin Dose 1,000 MG; Start 10/14/18 at 21:00 Levetiracetam (Keppra Liquid) 1,000 mg BID GTB Last administered on 3/11/19at 20:12; Admin Dose 1,000 MG; Start 10/14/18 at 21:00 Magnesium Sulfate 3 gm/Dextrose 106 ml @ 35.333 mls/ hr ONCE ONCE IVPB ; Start 10/15/18 at 09:00; Stop 10/15/18 at 11:59 Assessment/Plan Hospital Course (Demo Recall) IMP: 1. Status post septic Shock: likely due to urinary tract infection 2. Respiratory Failure 2/2 #1 3. UMBERTO-- pre-renal vs. ATN 2/2 #1 4. NSTEMI: type II 5. Afib with RVR--now in SR 6. Hypothyroidism 7. Remains encephalopathic with likely underlying history of significant dementia. 8. Anemia likely dilutional with chronic disease currently no active bleeding RECS: 1. Continue mechanical ventilation 2. Continue tube feeding as tolerated 3. Continue antibiotics, currently off vasopressors, currently improved 4. Renal recommendations regarding renal insufficiency metabolic acidosis improved. 5. Neuro recommendations regarding encephalopathy 6. Hold off on PRBC transfusion as currently patient is hemodynamically stable. If she requires vasopressors I would transfuse for another unit packed cells. Continue current supportive care critical care time 40 minutes prognosis is guarded Agree with palliative care evaluation and bioethics meeting. PETER ARAUZ MD, [facility] Oct 15, 2018 09:03
--- NOTE | 2018-10-15 09:04 | CONS ---
Assessment/Plan Assessment/Plan Assessment/Plan (Daily) Shock Secondary to urosepsis Witnessed seizure activity On Keppra and valproic acid, neurology following Atrial fibrillation with RVR Renal insufficiency Past medical history of dementia Other comorbid medical problems anemia, Hypothyroidism Patient has been in the intensive care unit since October 06. There is a possibility she may be extubated however overall prognosis is poor especially since she has had a bout of sepsis in the recent past. Which increase her chance of having another bout of sepsis in the near future statistically. Think it reasonable to ask for bioethics consultation early in his patient's hospital course not for comfort measures but for consideration of "change. Consultation Date/Type/Reason Admit Date/Time Oct 06, 2018 at 09:29 Date/Time of Note DATE: 10/15/18 TIME: 09:01 Hx of Present Illness This is an extremely ill 67-year-old female who is in the intensive care unit at [facility]. We have an incomplete database except we do know that patient presented to the emergency room at [facility] and shock brought in from presumably a half-way facility. Comorbid medical problems include enterococcus urinary tract infection, hypothyroidism, elevated cholesterol levels, history of depression, history of dementia prior history of pneumonia and history of chronic encephalopathy. Patient has had aggressive care with multiple different consultants including cardiology pulmonary medicine infectious disease, but has not improved significantly she was admitted to [facility] on October 06, 2018. I am asked to see patient in palliative care consultation. I have been told that case management has been unable to find any members of her family who can speak on her behalf. Once again patient is critically ill but she is not on pressors she is intubated. According to pulmonary notes patient had an adequate weaning parameters done yesterday. However she remains encephalopathic. Patient has been seen by neurology consultation as she began to have generalized seizures according to witnessing this by critical care nurses. Cannot obtain any information from patient Past Medical History Medical History: high cholesterol, hypertension, hyperthyroid, hypothyroid, other (Dementia, Encephalopathy) Home Meds Active Scripts Vancomycin Hcl (Vancocin) 1 Gm Soln, 500 MG IV Q12 for 7 Days, VIAL Prov:NUGENT,ALEN V. [employer] 08/31/18 Aztreonam (AZTREONAM) 1 Gm Vial, 1 GM IV* Q12 for 7 Days, VIAL Prov:NUGENT,ALEN [employer] 08/31/18 Reported Medications Donepezil* (Donepezil*) 5 Mg Tablet, 5 MG PO QHS, #30 TAB 08/28/18 Divalproex Sodium* (Depakote*) 500 Mg Tablet.dr, 500 MG PO BID, #120 TAB 08/28/18 Docusate Sodium* (Colace*) 100 Mg Capsule, 100 MG PO BID PRN for CONSTIPATION, #60 CAP 08/28/18 Atorvastatin Calcium (Atorvastatin Calcium) 10 Mg Tablet, 10 MG PO QHS, #30 TAB 08/28/18 Lorazepam* (Lorazepam*) 1 Mg Tablet, 1 MG PO BID PRN for ANXIETY, #30 TAB 08/28/18 Lactulose* (Lactulose*) 20 Gm/30 Ml Solution, 20 GM PO TID PRN for CONSTIPATION, ML 08/28/18 Trazodone Hcl* (Trazodone Hcl*) 100 Mg Tablet, 100 MG PO QHS, #30 TAB 08/28/18 Quetiapine Fumarate* (Seroquel*) 200 Mg Tablet, 200 MG PO HS, #30 TAB 08/28/18 Sennosides* (Senna Lax*) 8.6 Mg Tablet, 2 TAB PO QHS PRN for CONSTIPATION, TAB 08/28/18 Multivitamins* (Theragran*) 1 Tab Tab, 1 TAB PO DAILY, TAB 08/28/18 Polyethylene Glycol* (Miralax*) 17 Gm Powd.pack, 17 GM PO BID, #60 PACKET 08/28/18 Metoprolol Tartrate* (Lopressor*) 25 Mg Tab, 12.5 MG PO DAILY, #60 TAB HOLD IF SBP<115 OR HR<60 08/28/18 Levothyroxine Sodium* (Levothyroxine Sodium*) 50 Mcg Tablet, 50 MCG PO BEFORE BREAKFAST, #30 TAB 08/28/18 Levetiracetam* (Keppra*) 500 Mg Tablet, 500 MG PO BID, TAB 08/28/18 Gabapentin* (Gabapentin*) 400 Mg Capsule, 400 MG PO TID, #90 CAP 08/28/18 Phenylephrine HCl/Upham Butter* (Preparation H* Suppository) 1 Each Supp.rect, 1 EACH ND DAILY PRN for CONSTIPATION, SUPP.RECT 08/28/18 Mineral Oil* (Fleet* Mineral Oil Enema) 133 Ml Oil, 133 ML ND DAILY PRN for CONSTIPATION, ENEMA 08/28/18 Acetaminophen* (Acetaminophen*) 650 Mg Tablet, 650 MG PO DAILY PRN for PAIN AND OR ELEVATED TEMP, #30 TAB 08/28/18 Bisacodyl* (Bisacodyl*) 5 Mg Tablet.dr, 10 MG PO DAILY PRN for CONSTIPATION, TAB 08/28/18 Medications Current Medications IV Flush (NS 3 ml) 3 ml PER PROTOCOL IV ; Start 10/06/18 at 09:30 Ondansetron HCl (Zofran Inj) 4 mg Q6H PRN IV NAUSEA/VOMITING; Start 10/06/18 at 09:30 Acetaminophen (Tylenol Tab) 650 mg Q6H PRN PO .PAIN 1-3 OR TEMP Last administered on 10/12/18at 08:27; Admin Dose 650 MG; Start 10/06/18 at 09:30 Acetaminophen/ Hydrocodone Bitart ([place] (5/325)) 1 tab Q6H PRN PO .MOD PAIN 4- 6; Start 10/06/18 at 09:30 Morphine Sulfate (morphine) 2 mg Q4H PRN IV .SEVERE PAIN 7-10 Last administered on 10/12/18at 23:00; Admin Dose 2 MG; Start 10/06/18 at 09:30 Docusate Sodium (Colace) 100 mg Q12H PRN PO .CONSTIPATION; Start 10/06/18 at 0 9:30 Magnesium Hydroxide (Milk Of Mag) 30 ml DAILY PRN PO .CONSTIPATION; Start 10/06/18 at 09:30 Lorazepam (Ativan) 0.5 mg Q6H PRN IV ANXIETY Last administered on 10/14/18at 02:16; Admin Dose 0.5 MG; Start 10/06/18 at 09:30 Albuterol/ Ipratropium (Duoneb) 3 ml Q4H RESP THERAPY PRN HHN SHORTNESS OF B REATH; Start 10/06/18 at 09:30 Nitroglycerin (Nitroglycerin (Sl Tab) 0.4 Mg) 1 tab Q5M PRN SL ANGINA; Start 10/06/18 at 09:30 Bisacodyl (Dulcolax) 10 mg DAILY PRN PO CONSTIPATION; Start 10/06/18 at 09:30 Donepezil HCl (Aricept) 5 mg QHS PO Last administered on 10/14/18 20:13; Admin Dose 5 MG; Start 10/06/18 at 21:00 Lactulose (Enulose) 20 gm TID PRN PO CONSTIPATION; Start 10/06/18 at 09:30 Levothyroxine Sodium (Synthroid) 50 mcg BEFORE BREAKFAST PO Last administered on 10/14/18 06:25; Admin Dose 50 MCG; Start 10/07/18 at 07:00 Mineral Oil (Fleet Mineral Oil Enema) 133 ml DAILY PRN ND CONSTIPATION; Start 10/06/18 at 09:30 Multivitamins Therapeutic (Theragran) 1 tab DAILY PO Last administered on 10/14/18 08:18; Admin Dose 1 TAB; Start 10/07/18 at 09:00 Norepinephrine 32 mg/Dextrose 250 ml @ 0.47 mls/hr TITRATE IV Last administered on 10/08/18 12:53; Admin Dose 4.69 MLS/HR; Start 10/06/18 at 11:30 Aspirin (Aspirin) 81 mg DAILY NGT Last administered on 10/11/18 09:35; Admin Dose 81 MG; Start 10/06/18 at 12:30; Status Hold Atorvastatin Calcium (Lipitor) 40 mg DAILY@21 NGT Last administered on 10/14/18 20:12; Admin Dose 40 MG; Start 10/06/18 at 21:00 Miscellaneous Information (Flu Vaccine Previously Dispensed) FLU VACCINE PREVIOU... NOTE PRN XX NOTE; Start 10/06/18 at 18:00 Meropenem/Sodium Chloride 50 ml @ 100 mls/hr Q12 IVPB Last administered on 10/14/18 20:29; Admin Dose 100 MLS/HR; Start 10/07/18 at 12:00 Midazolam HCl 50 ml @ 0 mls/hr TITRATE IV Last administered on 10/09/18 22:21; Admin Dose 3 MLS/HR; Start 10/08/18 at 10:00 Fentanyl 100 ml @ 2.5 mls/hr TITRATE IV Last administered on 10/10/18 01:01; Admin Dose 2.5 MLS/HR; Start 10/08/18 at 16:30 Amiodarone HCl (Cordarone) 200 mg BID PO Last administered on 10/14/18 20:29; Admin Dose 200 MG; Start 10/09/18 at 21:00 Famotidine (Pepcid) 20 mg DAILY NGT Last administered on 10/14/18 08:18; Admin Dose 20 MG; Start 10/10/18 at 09:00 Phenylephrine HCl 250 ml @ 75 mls/hr TITRATE IV Last administered on 10/12/18 01:38; Admin Dose 6 MLS/HR; Start 10/09/18 at 13:00 Polyethylene Glycol (Miralax) 17 gm BID PRN PO constipation; Start 10/10/18 at 22:00 Sodium Bicarbonate 100 meq/Dextrose/ Sodium Chloride 1,000 ml @ 75 mls/hr [id number] IV Last administered on 10/14/18 23:21; Admin Dose 75 MLS/HR; Start 10/12/18 at 14:00 Metoprolol Tartrate (Lopressor) 25 mg BID PO Last administered on 10/14/18 20:12; Admin Dose 25 MG; Start 10/12/18 at 15:00 Metoprolol Tartrate (Lopressor) 5 mg Q4H PRN IV HR>110 Hold SBP<100; Start 10/12/18 at 15:00 Enoxaparin Sodium (Lovenox) 70 mg DAILY SC Last administered on 10/14/18 08:26; Admin Dose 70 MG; Start 10/14/18 at 09:00 Lorazepam (Ativan) 2 mg Q6H PRN IV seizures Last administered on 10/15/18 05:39; Admin Dose 2 MG; Start 10/14/18 at 14:30 Valproate Sodium (Depakene Liquid Cup) 1,000 mg Q8H GTB Last administered on 10/15/18 05:34; Admin Dose 1,000 MG; Start 10/14/18 at 21:00 Levetiracetam (Keppra Liquid) 1,000 mg BID GTB Last administered on 10/14/18 20:12; Admin Dose 1,000 MG; Start 10/14/18 at 21:00 Magnesium Sulfate 3 gm/Dextrose 106 ml @ 35.333 mls/ hr ONCE ONCE IVPB ; Start 10/15/18 at 09:00; Stop 10/15/18 at 11:59 Allergies: Coded Allergies: Penicillins (Verified Allergy, Unknown, 08/28/18) Sulfa (Sulfonamide Antibiotics) (Verified Allergy, Unknown, 08/28/18) clindamycin (Verified Allergy, Unknown, 08/28/18) ketorolac (Verified Allergy, Unknown, 08/28/18) lactase (Verified Allergy, Unknown, 08/28/18) Uncoded Allergies: TRYPTOPHAN (Allergy, Unknown, 08/28/18) Past Surgical History Past Surgical Hx: other (not available at this time ) Social History Alcohol Use: none Smoking Status: Never smoker Drug Use: none Exam/Review of Systems Exam Vitals Vital Signs Date Temp Pulse Resp B/P (MAP) Pulse Ox O2 O2 Flow FiO2 Time Delivery Rate 10/15/18 70 17 126/68 99 Mechanical 06:00 (87) Ventilator 10/15/18 30 05:43 10/15/18 98.0 04:00 Intake and Output 10/14/18 10/14/18 10/15/18 1515:00 23:00 07:00 IntakeIntake Total 1540 ml 1465 ml 1110 ml OutputOutput Total 410 ml 475 ml 400 ml BalanceBalance 1130 ml 990 ml 710 ml Constitutional: distress, frail Psych: other (Grimaces on examination) Head: normocephalic, atraumatic Eyes: nl conjunctiva, EOMI, PERRL Neck: supple, non-tender Respiratory: congested cough, crackles/rales, diminished breath sounds Cardiovascular: regular rate and rhythm, nl pulses Neurological: other (Off sedation or respond to any simple tactile or verbal stimulation no spontaneous movements slightly overbreathing ventilator oriented x0 grimaces with minimal stimulation) Results Result Diagram: 10/15/18 0400 10/15/18 0400 Results 24hrs Laboratory Tests Test 10/14/18 12:30 10/14/18 20:05 10/15/18 04:00 10/15/18 05:04 Stool Occult NEGATIVE Blood White Blood Count 7.2 6.6 Red Blood Count 2.61 #L 2.53 L Hemoglobin 8.2 #L 7.9 L Hematocrit 24.4 #L 23.9 L Mean Corpuscular 93.5 94.5 Volume Mean Corpuscular 31.4 31.2 Hemoglobin Mean Corpuscular 33.6 33.1 Hemoglobin Concen t Red Cell 16.0 H 16.4 H Distribution Width Platelet Count 321 324 Mean Platelet 11.2 H 11.1 H Volume Immature 1.700 H 1.200 H Granulocytes % Neutrophils % 71.8 74.3 Lymphocytes % 16.7 15.1 Monocytes % 9.1 8.9 Eosinophils % 0.4 0.3 Basophils % 0.3 0.2 Nucleated Red 0.6 H 0.9 H Blood Cells % Immature 0.120 H 0.080 H Granulocytes # Neutrophils # 5.2 4.9 Lymphocytes # 1.2 1.0 Monocytes # 0.7 0.6 Eosinophils # 0.0 0.0 Basophils # 0.0 0.0 Nucleated Red 0.0 0.1 H Blood Cells # Sodium Level 152 H Potassium Level 4.0 Chloride Level 115 H Carbon Dioxide 28 Level Anion Gap 9 Blood Urea 42 H Nitrogen Creatinine 1.01 H Est Glomerular 55 L Filtrat Rate mL/min Glucose Level 114 Calcium Level 8.5 Phosphorus Level 2.5 Magnesium Level 1.4 L Lab Scanned BLOOD TRANSFUSIO Report N Medications Medication Current Medications IV Flush (NS 3 ml) 3 ml PER PROTOCOL IV ; Start 10/06/18 at 09:30 Ondansetron HCl (Zofran Inj) 4 mg Q6H PRN IV NAUSEA/VOMITING; Start 10/06/18 at 09:30 Acetaminophen (Tylenol Tab) 650 mg Q6H PRN PO .PAIN 1-3 OR TEMP Last administered on 10/12/18at 08:27; Admin Dose 650 MG; Start 10/06/18 at 09:30 Acetaminophen/ Hydrocodone Bitart ([place] (5/325)) 1 tab Q6H PRN PO .MOD PAIN 4- 6; Start 10/06/18 at 09:30 Morphine Sulfate (morphine) 2 mg Q4H PRN IV .SEVERE PAIN 7-10 Last administered on 10/12/18at 23:00; Admin Dose 2 MG; Start 10/06/18 at 09:30 Docusate Sodium (Colace) 100 mg Q12H PRN PO .CONSTIPATION; Start 10/06/18 at 09:30 Magnesium Hydroxide (Milk Of Mag) 30 ml DAILY PRN PO .CONSTIPATION; Start 10/06/18 at 09:30 Lorazepam (Ativan) 0.5 mg Q6H PRN IV ANXIETY Last administered on 10/14/18 02:16; Admin Dose 0.5 MG; Start 10/06/18 at 09:30 Albuterol/ Ipratropium (Duoneb) 3 ml Q4H RESP THERAPY PRN HHN SHORTNESS OF BREATH; Start 10/06/18 at 09:30 Nitroglycerin (Nitroglycerin (Sl Tab) 0.4 Mg) 1 tab Q5M PRN SL ANGINA; Start 10/06/18 at 09:30 Bisacodyl (Dulcolax) 10 mg DAILY PRN PO CONSTIPATION; Start 10/06/18 at 09:30 Donepezil HCl (Aricept) 5 mg QHS PO Last administered on 10/14/18 20:13; Admin Dose 5 MG; Start 10/06/18 at 21:00 Lactulose (Enulose) 20 gm TID PRN PO CONSTIPATION; Start 10/06/18 at 09:30 Levothyroxine Sodium (Synthroid) 50 mcg BEFORE BREAKFAST PO Last administered on 10/14/18 06:25; Admin Dose 50 MCG; Start 10/07/18 at 07:00 Mineral Oil (Fleet Mineral Oil Enema) 133 ml DAILY PRN ND CONSTIPATION; Start 10/06/18 at 09:30 Multivitamins Therapeutic (Theragran) 1 tab DAILY PO Last administered on 10/14/18 08:18; Admin Dose 1 TAB; Start 10/07/18 at 09:00 Norepinephrine 32 mg/Dextrose 250 ml @ 0.47 mls/hr TITRATE IV Last admini stered on 10/08/18 12:53; Admin Dose 4.69 MLS/HR; Start 10/06/18 at 11:30 Aspirin (Aspirin) 81 mg DAILY NGT Last administered on 10/11/18 09:35; Admin Dose 81 MG; Start 10/06/18 at 12:30; Status Hold Atorvastatin Calcium (Lipitor) 40 mg DAILY@21 NGT Last administered on 10/14/18at 20:12; Admin Dose 40 MG; Start 10/06/18 at 21:00 Miscellaneous Information (Flu Vaccine Previously Dispensed) FLU VACCINE PREVIOU... NOTE PRN XX NOTE; Start 10/06/18 at 18:00 Meropenem/Sodium Chloride 50 ml @ 100 mls/hr Q12 IVPB Last administered on 10/14/18 20:29; Admin Dose 100 MLS/HR; Start 10/07/18 at 12:00 Midazolam HCl 50 ml @ 0 mls/hr TITRATE IV Last administered on 10/09/18 22:21; Admin Dose 3 MLS/HR; Start 10/08/18 at 10:00 Fentanyl 100 ml @ 2.5 mls/hr TITRATE IV Last administered on 10/10/18 01:01; Admin Dose 2.5 MLS/HR; Start 10/08/18 at 16:30 Amiodarone HCl (Cordarone) 200 mg BID PO Last administered on 10/14/18 20:29; Admin Dose 200 MG; Start 10/09/18 at 21:00 Famotidine (Pepcid) 20 mg DAILY NGT Last administered on 10/14/18 08:18; Admin Dose 20 MG; Start 10/10/18 at 09:00 Phenylephrine HCl 250 ml @ 75 mls/hr TITRATE IV Last administered on 10/12/18 01:38; Admin Dose 6 MLS/HR; Start 10/09/18 at 13:00 Polyethylene Glycol (Miralax) 17 gm BID PRN PO constipation; Start 10/10/18 at 22:00 Sodium Bicarbonate 100 meq/Dextrose/ Sodium Chloride 1,000 ml @ 75 mls/hr [id number] IV Last administered on 10/14/18 23:21; Admin Dose 75 MLS/HR; Start 10/12/18 at 14:00 Metoprolol Tartrate (Lopressor) 25 mg BID PO Last administered on 10/14/18 20:12; Admin Dose 25 MG; Start 10/12/18 at 15:00 Metoprolol Tartrate (Lopressor) 5 mg Q4H PRN IV HR>110 Hold SBP<100; Start 10/12/18 at 15:00 Enoxaparin Sodium (Lovenox) 70 mg DAILY SC Last administered on 10/14/18 08:26; Admin Dose 70 MG; Start 10/14/18 at 09:00 Lorazepam (Ativan) 2 mg Q6H PRN IV seizures Last administered on 10/15/18 05:39; Admin Dose 2 MG; Start 10/14/18 at 14:30 Valproate Sodium (Depakene Liquid Cup) 1,000 mg Q8H GTB Last administered on 10/15/18at 05:34; Admin Dose 1,000 MG; Start 10/14/18 at 21:00 Levetiracetam (Keppra Liquid) 1,000 mg BID GTB Last administered on 10/14/18at 20:12; Admin Dose 1,000 MG; Start 10/14/18 at 21:00 Magnesium Sulfate 3 gm/Dextrose 106 ml @ 35.333 mls/ hr ONCE ONCE IVPB ; Start 10/15/18 at 09:00; Stop 10/15/18 at 11:59 SHILPA DAVIS Oct 15, 2018 09:04
[2018-10-15] MEDS: ENOXAPARIN 100 MG/ML SYG SC SCH (09:13)
[2018-10-15] MEDS: FAMOTIDINE 20 MG TAB NGT SCH (09:15)
[2018-10-15] MEDS: MEROPENEM 500MG/50 ML (PMX) 50 ML IVPB SCH ×2 (09:15→21:28)
[2018-10-15] MEDS: AMIODARONE 200 MG TAB PO SCH ×2 (09:15→21:00)
[2018-10-15] MEDS: LEVOTHYROXINE 50 MCG TAB PO SCH (09:15)
[2018-10-15] MEDS: LEVETIRACETAM (100 MG/ML) 5ML CUP GTB SCH ×2 (09:15→22:28)
[2018-10-15] MEDS: MULTIVITAMINS THERAPEUTIC TAB PO SCH (09:15)
--- NOTE | 2018-10-15 09:36 | CONS ---
Assessment/Plan Assessment/Plan Assessment/Plan (Daily) 1. Non Oliguric Acute kidney injury due to ATN from septic shock 2. Septic shock due to UTI 3. acute UTI with Urine Cx growing E.Coli 4. Acute hypoxic respiratory failure intubated on ventilator 5. H/o HTN 6 H/o HL 7. H/o Hypothyroidism 8. Bacteremia with blood cx 2/2 growing E.Coli Plan: Na 152, BUN/Cr 42/1.01, pt remains intubated, Hb 7.9, BP stable, adequate urine output 1.3 liter in last 24 hr- - no acute indication of HD at this time s/p PRBC transfusion for anemia Id following , IV abx for UTI and bacteremia , Renally dose all abx and monitor electrolytes ventilator management as per Pulmonary will follow up Consultation Date/Type/Reason Admit Date/Time Oct 06, 2018 at 09:29 Initial Consult Date 10/06/18 Type of Consult NEPHROLOGY Requesting Provider: MANUEL ALEMAN Date/Time of Note DATE: 10/15/18 TIME: 09:36 24 HR Interval Summary Free Text/Dictation Na 152, BUN/Cr 42/1.01, pt remains intubated, Hb 7.9, BP stable, adequate urine output Exam/Review of Systems Exam Vitals Vital Signs Date Temp Pulse Resp B/P (MAP) Pulse Ox O2 O2 Flow FiO2 Time Delivery Rate 10/15/18 73 08:00 10/15/18 17 126/68 99 Mechanical 06:00 (87) Ventilator 10/15/18 30 05:43 10/15/18 98.0 04:00 Intake and Output 10/14/18 10/14/18 10/15/18 1515:00 23:00 07:00 IntakeIntake Total 1540 ml 1465 ml 1110 ml OutputOutput Total 410 ml 475 ml 400 ml BalanceBalance 1130 ml 990 ml 710 ml Exam Constitutional: non-verbal, other (Intuabted, on ventilator ) Respiratory: congested cough, crackles/rales, diminished breath sounds Cardiovascular: nl pulses, irregular rhythm Gastrointestinal: soft, non-tender Musculoskeletal: swelling Neurological: other (sedated on ventilator ) Results Result Diagram: 10/15/18 0400 10/15/18 0400 Results 24hrs Laboratory Tests Test 10/14/18 12:30 10/14/18 20:05 10/15/18 04:00 10/15/18 05:04 Stool Occult NEGATIVE Blood White Blood Count 7.2 6.6 Red Blood Count 2.61 #L 2.53 L Hemoglobin 8.2 #L 7.9 L Hematocrit 24.4 #L 23.9 L Mean Corpuscular 93.5 94.5 Volume Mean Corpuscular 31.4 31.2 Hemoglobin Mean Corpuscular 33.6 33.1 Hemoglobin Concen t Red Cell 16.0 H 16.4 H Distribution Width Platelet Count 321 324 Mean Platelet 11.2 H 11.1 H Volume Immature 1.700 H 1.200 H Granulocytes % Neutrophils % 71.8 74.3 Lymphocytes % 16.7 15.1 Monocytes % 9.1 8.9 Eosinophils % 0.4 0.3 Basophils % 0.3 0.2 Nucleated Red 0.6 H 0.9 H Blood Cells % Immature 0.120 H 0.080 H Granulocytes # Neutrophils # 5.2 4.9 Lymphocytes # 1.2 1.0 Monocytes # 0.7 0.6 Eosinophils # 0.0 0.0 Basophils # 0.0 0.0 Nucleated Red 0.0 0.1 H Blood Cells # Sodium Level 152 H Potassium Level 4.0 Chloride Level 115 H Carbon Dioxide 28 Level Anion Gap 9 Blood Urea 42 H Nitrogen Creatinine 1.01 H Est Glomerular 55 L Filtrat Rate mL/min Glucose Level 114 Calcium Level 8.5 Phosphorus Level 2.5 Magnesium Level 1.4 L Lab Scanned BLOOD TRANSFUSIO Report N Medications Medication Current Medications IV Flush (NS 3 ml) 3 ml PER PROTOCOL IV ; Start 10/06/18 at 09:30 Ondansetron HCl (Zofran Inj) 4 mg Q6H PRN IV NAUSEA/VOMITING; Start 10/06/18 at 09:30 Acetaminophen (Tylenol Tab) 650 mg Q6H PRN PO .PAIN 1-3 OR TEMP Last administered on 10/12/18at 08:27; Admin Dose 650 MG; Start 10/06/18 at 09:30 Acetaminophen/ Hydrocodone Bitart ([place] (5/325)) 1 tab Q6H PRN PO .MOD PAIN 4- 6; Start 10/06/18 at 09:30 Morphine Sulfate (morphine) 2 mg Q4H PRN IV .SEVERE PAIN 7-10 Last administered on 10/12/18 23:00; Admin Dose 2 MG; Start 10/06/18 at 09:30 Docusate Sodium (Colace) 100 mg Q12H PRN PO .CONSTIPATION; Start 10/06/18 at 09:30 Magnesium Hydroxide (Milk Of Mag) 30 ml DAILY PRN PO .CONSTIPATION; Start 10/06/18 at 09:30 Lorazepam (Ativan) 0.5 mg Q6H PRN IV ANXIETY Last administered on 10/14/18 02:16; Admin Dose 0.5 MG; Start 10/06/18 at 09:30 Albuterol/ Ipratropium (Duoneb) 3 ml Q4H RESP THERAPY PRN HHN SHORTNESS OF BREATH; Start 10/06/18 at 09:30 Nitroglycerin (Nitroglycerin (Sl Tab) 0.4 Mg) 1 tab Q5M PRN SL ANGINA; Start 10/06/18 at 09:30 Bisacodyl (Dulcolax) 10 mg DAILY PRN PO CONSTIPATION; Start 10/06/18 at 09:30 Donepezil HCl (Aricept) 5 mg QHS PO Last administered on 10/14/18 20:13; Admin Dose 5 MG; Start 10/06/18 at 21:00 Lactulose (Enulose) 20 gm TID PRN PO CONSTIPATION; Start 10/06/18 at 09:30 Levothyroxine Sodium (Synthroid) 50 mcg BEFORE BREAKFAST PO Last administered on 10/15/18 09:15; Admin Dose 50 MCG; Start 10/07/18 at 07:00 Mineral Oil (Fleet Mineral Oil Enema) 133 ml DAILY PRN [place] CONSTIPATION; Start 10/06/18 at 09:30 Multivitamins Therapeutic (Theragran) 1 tab DAILY PO Last administered on 10/15/18 09:15; Admin Dose 1 TAB; Start 10/07/18 at 09:00 Norepinephrine 32 mg/Dextrose 250 ml @ 0.47 mls/hr TITRATE IV Last administered on 10/08/18 12:53; Admin Dose 4.69 MLS/HR; Start 10/06/18 at 11:30 Aspirin (Aspirin) 81 mg DAILY NGT Last administered on 10/11/18 09:35; Admin Dose 81 MG; Start 10/06/18 at 12:30; Status Hold Atorvastatin Calcium (Lipitor) 40 mg DAILY@21 NGT Last administered on 10/14/18 20:12; Admin Dose 40 MG; Start 10/06/18 at 21:00 Miscellaneous Information (Flu Vaccine Previously Dispensed) FLU VACCINE PREVIOU... NOTE PRN XX NOTE; Start 10/06/18 at 18:00 Meropenem/Sodium Chloride 50 ml @ 100 mls/hr Q12 IVPB Last administered on 10/15/18 09:15; Admin Dose 100 MLS/HR; Start 10/07/18 at 12:00 Midazolam HCl 50 ml @ 0 mls/hr TITRATE IV Last administered on 10/09/18 22:21; Admin Dose 3 MLS/HR; Start 10/08/18 at 10:00 Fentanyl 100 ml @ 2.5 mls/hr TITRATE IV Last administered on 10/10/18 01:01; Admin Dose 2.5 MLS/HR; Start 10/08/18 at 16:30 Amiodarone HCl (Cordarone) 200 mg BID PO Last administered on 10/15/18 09:15; Admin Dose 200 MG; Start 10/09/18 at 21:00 Famotidine (Pepcid) 20 mg DAILY NGT Last administered on 10/15/18 09:15; Admin Dose 20 MG; Start 10/10/18 at 09:00 Phenylephrine HCl 250 ml @ 75 mls/hr TITRATE IV Last administered on 10/12/18 01:38; Admin Dose 6 MLS/HR; Start 10/09/18 at 13:00 Polyethylene Glycol (Miralax) 17 gm BID PRN PO constipation; Start 10/10/18 at 22:00 Sodium Bicarbonate 100 meq/Dextrose/ Sodium Chloride 1,000 ml @ 75 mls/hr [id number] IV Last administered on 10/14/18 23:21; Admin Dose 75 MLS/HR; Start 10/12/18 at 14:00 Metoprolol Tartrate (Lopressor) 25 mg BID PO Last administered on 10/14/18 20:12; Admin Dose 25 MG; Start 10/12/18 at 15:00 Metoprolol Tartrate (Lopressor) 5 mg Q4H PRN IV HR>110 Hold SBP<100; Start 10/12/18 at 15:00 Enoxaparin Sodium (Lovenox) 70 mg DAILY SC Last administered on 10/15/18 09:13; Admin Dose 70 MG; Start 10/14/18 at 09:00 Lorazepam (Ativan) 2 mg Q6H PRN IV seizures Last administered on 10/15/18 05:39; Admin Dose 2 MG; Start 10/14/18 at 14:30 Valproate Sodium (Depakene Liquid Cup) 1,000 mg Q8H GTB Last administered on 10/15/18 05:34; Admin Dose 1,000 MG; Start 10/14/18 at 21:00 Levetiracetam (Keppra Liquid) 1,000 mg BID GTB Last administered on 10/15/18 09:15; Admin Dose 1,000 MG; Start 10/14/18 at 21:00 Magnesium Sulfate 3 gm/Dextrose 106 ml @ 35.333 mls/ hr ONCE ONCE IVPB ; Start 10/15/18 at 09:00; Stop 10/15/18 at 11:59 VALARIE BENNETT MD Oct 15, 2018 09:36
[2018-10-15] MEDS: METOPROLOL 25 MG TAB PO SCH ×2 (09:38→21:00)
[2018-10-15] MEDS: BALSAM PERU/CASTOR OIL 60 GM TUBE TOP SCH (09:38)
--- NOTE | 2018-10-15 09:57 | PN ---
Date/Time of Note Date/Time of Note DATE: 10/15/18 TIME: 09:54 Assessment/Plan VTE Prophylaxis Risk score (from [facility] [place]0 risk: 8 SCD applied (from [facility] [place]): Yes Pharmacological prophylaxis: NA/contraindicated Pharm contraindication: bleeding Lines/Catheters IV Catheter Type (from [facility]): Central Line Central line still needed: Yes Urinary Cath still in place: Yes Reason Cath still needed: urinary retention Assessment/Plan Hospital Course S: Patient not on pressor support, still intubated, tolerating tube feeds. Awaiting MRI of the brain. Received PRBC transfusion yesterday. O: VS -SEE BELOW PE: GENERAL: lying in bed, intubated. HEENT: Moist mucous membranes, ET tube in place. NECK: Supple, no thyromegaly. LUNGS: Mechanical breath sounds equal bilaterally. CARDIOVASCULAR: S1, S2 heard. No rubs or gallops. ABDOMEN: Soft, nontender, nondistended. Normal bowel sounds. No rebound or guarding. MUSCULOSKELETAL: No lower extremity edema bilaterally. Assessment/Plan: 67-year-old female coming in with signs of septic shock, likely secondary to urinary tract infection and pneumonia, elevated troponins, acute renal insufficiency, now intubated on pressor support. Also presented with atrial fibrillation with rapid ventricular response, now in normal sinus rhythm. #Septic shock - ID Dr. Sanford following- Likely due to UTI- Urine cultures and Blood cultures growing E Coli x2-off vasopressor support -Continue current broad-spectrum antibiotics, Tylenol p.r.n. pain and fevers. -Follow-up ID recommendations, final culture results, continue IV fluids #Seizure- Morning of 10/08 had whole body twitching concerning for seizures; got Ativan then Versed. Again on 10/11 had a similar episode broken with Ativan- EEG appears to have localized lesion but CT head is negative. Neuro following. - Continue keppra, valproic acid, follow-up neurology recommendation - Will hold versed. - Pending MRI [id number] results of this # NSTEMI - Unclear if this is true non-ST elevation myocardial infarction versus demand ischemia- s/p heparin gtt earlier this admission. - Continue high dose aspirin. - She is also on Lipitor. -Cardiology Dr. Mello consulted, follow-up their recommendations #A fib with RVR, paroxysmal- Dr. Mello following- Converted to normal sinus after getting Cardizem in ED-apparently went back in A fib later, now presently normal sinus rhythm -Monitor heart rate for now, follow cardiology recommendations -Continue p.o. beta-panda and p.o. amiodarone for now # Renal insufficiency - improving- Not anuric - Dr. Davila consulted, monitor for now # Hypothyroidism - Continue current thyroid medicines. - Low TSH, normal fT4 consistent with sick euthyroid syndrome. # History of dementia. - Continue Aricept for now. # History of high cholesterol. - Cont statin #Anemia: Unclear source, hemoglobin today 8 range after transfusion yesterday. -Monitor, follow-up occult test #Hypernatremia: Sodium 152 today -Increase free water, change IV fluids to D5W # Gastrointestinal prophylaxis- H2 panda. # Deep venous thrombosis prophylaxis - due to anemia- SCDs 50 minutes critical care time spent on this patient. Result Diagram: 10/15/18 0400 10/15/18 0400 Results 24hrs Laboratory Tests Test 10/14/18 12:30 10/14/18 20:05 10/15/18 04:00 10/15/18 05:04 Stool Occult NEGATIVE Blood White Blood Count 7.2 6.6 Red Blood Count 2.61 #L 2.53 L Hemoglobin 8.2 #L 7.9 L Hematocrit 24.4 #L 23.9 L Mean Corpuscular 93.5 94.5 Volume Mean Corpuscular 31.4 31.2 Hemoglobin Mean Corpuscular 33.6 33.1 Hemoglobin Concen t Red Cell 16.0 H 16.4 H Distribution Width Platelet Count 321 324 Mean Platelet 11.2 H 11.1 H Volume Immature 1.700 H 1.200 H Granulocytes % Neutrophils % 71.8 74.3 Lymphocytes % 16.7 15.1 Monocytes % 9.1 8.9 Eosinophils % 0.4 0.3 Basophils % 0.3 0.2 Nucleated Red 0.6 H 0.9 H Blood Cells % Immature 0.120 H 0.080 H Granulocytes # Neutrophils # 5.2 4.9 Lymphocytes # 1.2 1.0 Monocytes # 0.7 0.6 Eosinophils # 0.0 0.0 Basophils # 0.0 0.0 Nucleated Red 0.0 0.1 H Blood Cells # Sodium Level 152 H Potassium Level 4.0 Chloride Level 115 H Carbon Dioxide 28 Level Anion Gap 9 Blood Urea 42 H Nitrogen Creatinine 1.01 H Est Glomerular 55 L Filtrat Rate mL/min Glucose Level 114 Calcium Level 8.5 Phosphorus Level 2.5 Magnesium Level 1.4 L Lab Scanned BLOOD TRANSFUSIO Report N Exam/Review of Systems Exam Vitals Vital Signs Date Temp Pulse Resp B/P (MAP) Pulse Ox O2 O2 Flow FiO2 Time Delivery Rate 10/15/18 73 08:00 10/15/18 17 126/68 99 Mechanical 06:00 (87) Ventilator 10/15/18 30 05:43 10/15/18 98.0 04:00 Intake and Output 10/14/18 10/14/18 10/15/18 1515:00 23:00 07:00 IntakeIntake Total 1540 ml 1465 ml 1110 ml OutputOutput Total 410 ml 475 ml 400 ml BalanceBalance 1130 ml 990 ml 710 ml Results Results 24hrs Laboratory Tests Test 10/14/18 12:30 10/14/18 20:05 10/15/18 04:00 10/15/18 05:04 Stool Occult NEGATIVE Blood White Blood Count 7.2 6.6 Red Blood Count 2.61 #L 2.53 L Hemoglobin 8.2 #L 7.9 L Hematocrit 24.4 #L 23.9 L Mean Corpuscular 93.5 94.5 Volume Mean Corpuscular 31.4 31.2 Hemoglobin Mean Corpuscular 33.6 33.1 Hemoglobin Concen t Red Cell 16.0 H 16.4 H Distribution Width Platelet Count 321 324 Mean Platelet 11.2 H 11.1 H Volume Immature 1.700 H 1.200 H Granulocytes % Neutrophils % 71.8 74.3 Lymphocytes % 16.7 15.1 Monocytes % 9.1 8.9 Eosinophils % 0.4 0.3 Basophils % 0.3 0.2 Nucleated Red 0.6 H 0.9 H Blood Cells % Immature 0.120 H 0.080 H Granulocytes # Neutrophils # 5.2 4.9 Lymphocytes # 1.2 1.0 Monocytes # 0.7 0.6 Eosinophils # 0.0 0.0 Basophils # 0.0 0.0 Nucleated Red 0.0 0.1 H Blood Cells # Sodium Level 152 H Potassium Level 4.0 Chloride Level 115 H Carbon Dioxide 28 Level Anion Gap 9 Blood Urea 42 H Nitrogen Creatinine 1.01 H Est Glomerular 55 L Filtrat Rate mL/min Glucose Level 114 Calcium Level 8.5 Phosphorus Level 2.5 Magnesium Level 1.4 L Lab Scanned BLOOD TRANSFUSIO Report N Medications Medication Current Medications IV Flush (NS 3 ml) 3 ml PER PROTOCOL IV ; Start 10/06/18 at 09:30 Ondansetron HCl (Zofran Inj) 4 mg Q6H PRN IV NAUSEA/VOMITING; Start 10/06/18 at 09:30 Acetaminophen (Tylenol Tab) 650 mg Q6H PRN PO .PAIN 1-3 OR TEMP Last administered on 10/12/18at 08:27; Admin Dose 650 MG; Start 10/06/18 at 09:30 Acetaminophen/ Hydrocodone Bitart ([place] (5/325)) 1 tab Q6H PRN PO .MOD PAIN 4- 6; Start 10/06/18 at 09:30 Morphine Sulfate (morphine) 2 mg Q4H PRN IV .SEVERE PAIN 7-10 Last administered on 10/12/18at 23:00; Admin Dose 2 MG; Start 10/06/18 at 09:30 Docusate Sodium (Colace) 100 mg Q12H PRN PO .CONSTIPATION; Start 10/06/18 at 09:30 Magnesium Hydroxide (Milk Of Mag) 30 ml DAILY PRN PO .CONSTIPATION; Start 10/06/18 at 09:30 Lorazepam (Ativan) 0.5 mg Q6H PRN IV ANXIETY Last administered on 10/14/18at 02:16; Admin Dose 0.5 MG; Start 10/06/18 at 09:30 Albuterol/ Ipratropium (Duoneb) 3 ml Q4H RESP THERAPY PRN HHN SHORTNESS OF BREATH; Start 10/06/18 at 09:30 Nitroglycerin (Nitroglycerin (Sl Tab) 0.4 Mg) 1 tab Q5M PRN SL ANGINA; Start 10/06/18 at 09:30 Bisacodyl (Dulcolax) 10 mg DAILY PRN PO CONSTIPATION; Start 10/06/18 at 09:30 Donepezil HCl (Aricept) 5 mg QHS PO Last administered on 10/14/18at 20:13; Admin Dose 5 MG; Start 10/06/18 at 21:00 Lactulose (Enulose) 20 gm TID PRN PO CONSTIPATION; Start 10/06/18 at 09:30 Levothyroxine Sodium (Synthroid) 50 mcg BEFORE BREAKFAST PO Last administered on 10/15/18 09:15; Admin Dose 50 MCG; Start 10/07/18 at 07:00 Mineral Oil (Fleet Mineral Oil Enema) 133 ml DAILY PRN [place] CONSTIPATION; Start 10/06/18 at 09:30 Multivitamins Therapeutic (Theragran) 1 tab DAILY PO Last administered on 10/15/18 09:15; Admin Dose 1 TAB; Start 10/07/18 at 09:00 Norepinephrine 32 mg/Dextrose 250 ml @ 0.47 mls/hr TITRATE IV Last administered on 10/08/18 12:53; Admin Dose 4.69 MLS/HR; Start 10/06/18 at 11:30 Aspirin (Aspirin) 81 mg DAILY NGT Last administered on 10/11/18 09:35; Admin Dose 81 MG; Start 10/06/18 at 12:30; Status Hold Atorvastatin Calcium (Lipitor) 40 mg DAILY@21 NGT Last administered on 10/04 20:12; Admin Dose 40 MG; Start 10/06/18 at 21:00 Miscellaneous Information (Flu Vaccine Previously Dispensed) FLU VACCINE PREVIOU... NOTE PRN XX NOTE; Start 10/06/18 at 18:00 Meropenem/Sodium Chloride 50 ml @ 100 mls/hr Q12 IVPB Last administered on 10/15/18 09:15; Admin Dose 100 MLS/HR; Start 10/07/18 at 12:00 Midazolam HCl 50 ml @ 0 mls/hr TITRATE IV Last administered on 10/09/18 22:21; Admin Dose 3 MLS/HR; Start 10/08/18 at 10:00 Fentanyl 100 ml @ 2.5 mls/hr TITRATE IV Last administered on 10/10/18 01:01; Admin Dose 2.5 MLS/HR; Start 10/08/18 at 16:30 Amiodarone HCl (Cordarone) 200 mg BID PO Last administered on 10/15/18 09:15; Admin Dose 200 MG; Start 10/09/18 at 21:00 Famotidine (Pepcid) 20 mg DAILY NGT Last administered on 10/15/18 09:15; Admin Dose 20 MG; Start 10/10/18 at 09:00 Phenylephrine HCl 250 ml @ 75 mls/hr TITRATE IV Last administered on 10/12/18 01:38; Admin Dose 6 MLS/HR; Start 10/09/18 at 13:00 Polyethylene Glycol (Miralax) 17 gm BID PRN PO constipation; Start 10/10/18 at 22:00 Sodium Bicarbonate 100 meq/Dextrose/ Sodium Chloride 1,000 ml @ 75 mls/hr [id number] IV Last administered on 10/14/18at 23:21; Admin Dose 75 MLS/HR; Start 10/12/18 at 14:00 Metoprolol Tartrate (Lopressor) 25 mg BID PO Last administered on 10/15/18 09:38; Admin Dose 25 MG; Start 10/12/18 at 15:00 Metoprolol Tartrate (Lopressor) 5 mg Q4H PRN IV HR>110 Hold SBP<100; Start 10/12/18 at 15:00 Enoxaparin Sodium (Lovenox) 70 mg DAILY SC Last administered on 10/15/18 09:13; Admin Dose 70 MG; Start 10/14/18 at 09:00 Lorazepam (Ativan) 2 mg Q6H PRN IV seizures Last administered on 10/15/18 05:39; Admin Dose 2 MG; Start 10/14/18 at 14:30 Valproate Sodium (Depakene Liquid Cup) 1,000 mg Q8H GTB Last administered on 10/15/18 05:34; Admin Dose 1,000 MG; Start 10/14/18 at 21:00 Levetiracetam (Keppra Liquid) 1,000 mg BID GTB Last administered on 10/15/18 09:15; Admin Dose 1,000 MG; Start 10/14/18 at 21:00 Magnesium Sulfate 3 gm/Dextrose 106 ml @ 35.333 mls/ hr ONCE ONCE IVPB ; Start 10/15/18 at 09:00; Stop 10/15/18 at 11:59 Magnesium Sulfate 50 ml @ 25 mls/hr ONCE ONCE IVPB ; Start 10/15/18 at 10:00; Stop 10/15/18 at 11:59; Status Future Hold MANUEL ALEMAN Oct 15, 2018 09:56
[2018-10-15] MEDS ORDERED: MAGNESIUM SULFATE 2 GM/50 ML 50 ML IVPB ONE (10:00)
[2018-10-15] MEDS: DEXTROSE 5% 1,000 ML IV SCH ×2 (10:17→23:26)
--- NOTE | 2018-10-15 13:06 | CONS ---
Assessment/Plan Assessment/Plan Hospital Course 67 F c/ dementia, epilepsy, and other comorbidities, who presents for management of cardiopulmonary Sx. She was noted to have a generalized convulsion on 10/08, for which neurology is consulted... Certainly her acute illness is lowering her seizure threshold.. CTH is without acute intracranial pathology EEG is notable for severe left hemispheric on diffuse slowing P: OK to continue asa for primary stroke prevention daily given her afib Increase maintenance depakote to 750 BID; repeat level in am Cont Keppra 500 bid per ops given her poor renal function Ativan iv prn prolonged seizure or cluster Continued medical management per primary Will follow Consultation Date/Type/Reason Admit Date/Time Oct 06, 2018 at 09:29 Type of Consult Neurology Reason for Consultation seizure Requesting Provider: MANUEL ALEMAN Date/Time of Note DATE: 10/15/18 TIME: 13:06 Exam/Review of Systems Exam Vitals Vital Signs Date Temp Pulse Resp B/P (MAP) Pulse Ox O2 O2 Flow FiO2 Time Delivery Rate 10/15/18 99.0 68 13 100/71 99 Mechanical 12:00 (81) Ventilator 10/15/18 30 08:00 Intake and Output 10/14/18 10/14/18 10/15/18 1515:00 23:00 07:00 IntakeIntake Total 1540 ml 1465 ml 1240 ml OutputOutput Total 410 ml 475 ml 470 ml BalanceBalance 1130 ml 990 ml 770 ml Results Result Diagram: 10/15/18 0400 10/15/18 0400 Results 24hrs Laboratory Tests Test 10/14/18 20:05 10/15/18 04:00 10/15/18 05:04 White Blood Count 7.2 6.6 Red Blood Count 2.61 #L 2.53 L Hemoglobin 8.2 #L 7.9 L Hematocrit 24.4 #L 23.9 L Mean Corpuscular Volume 93.5 94.5 Mean Corpuscular Hemoglobin 31.4 31.2 Mean Corpuscular 33.6 33.1 Hemoglobin Concent Red Cell Distribution Width 16.0 H 16.4 H Platelet Count 321 324 Mean Platelet Volume 11.2 H 11.1 H Immature Granulocytes % 1.700 H 1.200 H Neutrophils % 71.8 74.3 Lymphocytes % 16.7 15.1 Monocytes % 9.1 8.9 Eosinophils % 0.4 0.3 Basophils % 0.3 0.2 Nucleated Red Blood Cells % 0.6 H 0.9 H Immature Granulocytes # 0.120 H 0.080 H Neutrophils # 5.2 4.9 Lymphocytes # 1.2 1.0 Monocytes # 0.7 0.6 Eosinophils # 0.0 0.0 Basophils # 0.0 0.0 Nucleated Red Blood Cells # 0.0 0.1 H Sodium Level 152 H Potassium Level 4.0 Chloride Level 115 H Carbon Dioxide Level 28 Anion Gap 9 Blood Urea Nitrogen 42 H Creatinine 1.01 H Est Glomerular Filtrat 55 L Rate mL/min Glucose Level 114 Calcium Level 8.5 Phosphorus Level 2.5 Magnesium Level 1.4 L Valproic Acid (Depakene) Level 27 L Lab Scanned Report BLOOD TRANSFUSION Medications Medication Current Medications IV Flush (NS 3 ml) 3 ml PER PROTOCOL IV ; Start 10/06/18 at 09:30 Ondansetron HCl (Zofran Inj) 4 mg Q6H PRN IV NAUSEA/VOMITING; Start 10/06/18 at 09:30 Acetaminophen (Tylenol Tab) 650 mg Q6H PRN PO .PAIN 1-3 OR TEMP Last administered on 10/12/18at 08:27; Admin Dose 650 MG; Start 10/06/18 at 09:30 Acetaminophen/ Hydrocodone Bitart ([place] (5/325)) 1 tab Q6H PRN PO .MOD PAIN 4- 6; Start 10/06/18 at 09:30 Morphine Sulfate (morphine) 2 mg Q4H PRN IV .SEVERE PAIN 7-10 Last administered on 10/12/18at 23:00; Admin Dose 2 MG; Start 10/06/18 at 09:30 Docusate Sodium (Colace) 100 mg Q12H PRN PO .CONSTIPATION; Start 10/06/18 at 09:30 Magnesium Hydroxide (Milk Of Mag) 30 ml DAILY PRN PO .CONSTIPATION; Start 10/06/18 at 09:30 Lorazepam (Ativan) 0.5 mg Q6H PRN IV ANXIETY Last administered on 10/14/18at 02:16; Admin Dose 0.5 MG; Start 10/06/18 at 09:30 Albuterol/ Ipratropium (Duoneb) 3 ml Q4H RESP THERAPY PRN HHN SHORTNESS OF BREATH; Start 10/06/18 at 09:30 Nitroglycerin (Nitroglycerin (Sl Tab) 0.4 Mg) 1 tab Q5M PRN SL ANGINA; Start 10/06/18 at 09:30 Bisacodyl (Dulcolax) 10 mg DAILY PRN PO CONSTIPATION; Start 10/06/18 at 09:30 Donepezil HCl (Aricept) 5 mg QHS PO Last administered on 10/14/18 20:13; Admin Dose 5 MG; Start 10/06/18 at 21:00 Lactulose (Enulose) 20 gm TID PRN PO CONSTIPATION; Start 10/06/18 at 09:30 Levothyroxine Sodium (Synthroid) 50 mcg BEFORE BREAKFAST PO Last administered on 10/15/18 09:15; Admin Dose 50 MCG; Start 10/07/18 at 07:00 Mineral Oil (Fleet Mineral Oil Enema) 133 ml DAILY PRN [place] CONSTIPATION; Start 10/06/18 at 09:30 Multivitamins Therapeutic (Theragran) 1 tab DAILY PO Last administered on 10/15/18 09:15; Admin Dose 1 TAB; Start 10/07/18 at 09:00 Norepinephrine 32 mg/Dextrose 250 ml @ 0.47 mls/hr TITRATE IV Last administered on 10/08/18 12:53; Admin Dose 4.69 MLS/HR; Start 10/06/18 at 11:30 Aspirin (Aspirin) 81 mg DAILY NGT Last administered on 10/11/18 09:35; Admin Dose 81 MG; Start 10/06/18 at 12:30; Status Hold Atorvastatin Calcium (Lipitor) 40 mg DAILY@21 NGT Last administered on 10/14/18 20:12; Admin Dose 40 MG; Start 10/06/18 at 21:00 Miscellaneous Information (Flu Vaccine Previously Dispensed) FLU VACCINE PRE VIOU... NOTE PRN XX NOTE; Start 10/06/18 at 18:00 Meropenem/Sodium Chloride 50 ml @ 100 mls/hr Q12 IVPB Last administered on 10/15/18 09:15; Admin Dose 100 MLS/HR; Start 10/07/18 at 12:00 Midazolam HCl 50 ml @ 0 mls/hr TITRATE IV Last administered on 10/09/18 22:21; Admin Dose 3 MLS/HR; Start 10/08/18 at 10:00 Fentanyl 100 ml @ 2.5 mls/hr TITRATE IV Last administered on 10/10/18 01:01; Admin Dose 2.5 MLS/HR; Start 10/08/18 at 16:30 Amiodarone HCl (Cordarone) 200 mg BID PO Last administered on 10/15/18 09:15; Admin Dose 200 MG; Start 10/09/18 at 21:00 Famotidine (Pepcid) 20 mg DAILY NGT Last administered on 10/15/18 09:15; Admin Dose 20 MG; Start 10/10/18 at 09:00 Phenylephrine HCl 250 ml @ 75 mls/hr TITRATE IV Last administered on 10/12/18 01:38; Admin Dose 6 MLS/HR; Start 10/09/18 at 13:00 Polyethylene Glycol (Miralax) 17 gm BID PRN PO constipation; Start 10/10/18 at 22:00 Metoprolol Tartrate (Lopressor) 25 mg BID PO Last administered on 10/15/18 09:38; Admin Dose 25 MG; Start 10/12/18 at 15:00 Metoprolol Tartrate (Lopressor) 5 mg Q4H PRN IV HR>110 Hold SBP<100; Start 10/12/18 at 15:00 Enoxaparin Sodium (Lovenox) 70 mg DAILY SC Last administered on 10/15/18 09:13; Admin Dose 70 MG; Start 10/14/18 at 09:00 Lorazepam (Ativan) 2 mg Q6H PRN IV seizures Last administered on 10/15/18 05:39; Admin Dose 2 MG; Start 10/14/18 at 14:30 Valproate Sodium (Depakene Liquid Cup) 1,000 mg Q8H GTB Last administered on 10/15/18 05:34; Admin Dose 1,000 MG; Start 10/14/18 at 21:00 Levetiracetam (Keppra Liquid) 1,000 mg BID GTB Last administered on 10/15/18 09:15; Admin Dose 1,000 MG; Start 10/14/18 at 21:00 Dextrose 1,000 ml @ 75 mls/hr [id number] IV Last administered on 3/12/19at 10:17; Admin Dose 75 MLS/HR; Start 10/15/18 at 10:00 Past Medical History Medical History: high cholesterol, hypertension, hyperthyroid, hypothyroid, other (Dementia, Encephalopathy) Home Meds Active Scripts Vancomycin Hcl (Vancocin) 1 Gm Soln, 500 MG IV Q12 for 7 Days, VIAL 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 DEAN OF [facility]MISSIONS 08/31/18 Aztreonam (AZTREONAM) 1 Gm Vial, 1 GM IV* Q12 for 7 Days, VIAL 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 DEAN OF ADMISSIONS 08/31/18 Reported Medications Donepezil* (Donepezil*) 5 Mg Tablet, 5 MG PO QHS, #30 TAB 08/28/18 Divalproex Sodium* (Depakote*) 500 Mg Tablet.dr, 500 MG PO BID, #120 TAB 08/28/18 Docusate Sodium* (Colace*) 100 Mg Capsule, 100 MG PO BID PRN for CONSTIPATION, #60 CAP 08/28/18 Atorvastatin Calcium (Atorvastatin Calcium) 10 Mg Tablet, 10 MG PO QHS, #30 TAB 08/28/18 Lorazepam* (Lorazepam*) 1 Mg Tablet, 1 MG PO BID PRN for ANXIETY, #30 TAB 08/28/18 Lactulose* (Lactulose*) 20 Gm/30 Ml Solution, 20 GM PO TID PRN for CONSTIPATION, ML 08/28/18 Trazodone Hcl* (Trazodone Hcl*) 100 Mg Tablet, 100 MG PO QHS, #30 TAB 08/28/18 Quetiapine Fumarate* (Seroquel*) 200 Mg Tablet, 200 MG PO HS, #30 TAB 08/28/18 Sennosides* (Senna Lax*) 8.6 Mg Tablet, 2 TAB PO QHS PRN for CONSTIPATION, TAB 08/28/18 Multivitamins* (Theragran*) 1 Tab Tab, 1 TAB PO DAILY, TAB 08/28/18 Polyethylene Glycol* (Miralax*) 17 Gm Powd.pack, 17 GM PO BID, #60 PACKET 08/28/18 Metoprolol Tartrate* (Lopressor*) 25 Mg Tab, 12.5 MG PO DAILY, #60 TAB HOLD IF SBP<115 OR HR<60 08/28/18 Levothyroxine Sodium* (Levothyroxine Sodium*) 50 Mcg Tablet, 50 MCG PO BEFORE BREAKFAST, #30 TAB 08/28/18 Levetiracetam* (Keppra*) 500 Mg Tablet, 500 MG PO BID, TAB 08/28/18 Gabapentin* (Gabapentin*) 400 Mg Capsule, 400 MG PO TID, #90 CAP 08/28/18 Phenylephrine HCl/[place] Butter* (Preparation H* Suppository) 1 Each Supp.rect, 1 EACH SC DAILY PRN for CONSTIPATION, SUPP.RECT 08/28/18 Mineral Oil* (Fleet* Mineral Oil Enema) 133 Ml Oil, 133 ML SC DAILY PRN for CONSTIPATION, ENEMA 08/28/18 Acetaminophen* (Acetaminophen*) 650 Mg Tablet, 650 MG PO DAILY PRN for PAIN AND OR ELEVATED TEMP, #30 TAB 08/28/18 Bisacodyl* (Bisacodyl*) 5 Mg Tablet.dr, 10 MG PO DAILY PRN for CONSTIPATION, TAB 08/28/18 Medications Current Medications IV Flush (NS 3 ml) 3 ml PER PROTOCOL IV ; Start 10/06/18 at 09:30 Ondansetron HCl (Zofran Inj) 4 mg Q6H PRN IV NAUSEA/VOMITING; Start 10/06/18 at 09:30 Acetaminophen (Tylenol Tab) 650 mg Q6H PRN PO .PAIN 1-3 OR TEMP Last administered on 10/12/18at 08:27; Admin Dose 650 MG; Start 10/06/18 at 09:30 Acetaminophen/ Hydrocodone Bitart ([place] (5/325)) 1 tab Q6H PRN PO .MOD PAIN 4- 6; Start 10/06/18 at 09:30 Morphine Sulfate (morphine) 2 mg Q4H PRN IV .SEVERE PAIN 7-10 Last administered on 10/12/18at 23:00; Admin Dose 2 MG; Start 10/06/18 at 09:30 Docusate Sodium (Colace) 100 mg Q12H PRN PO .CONSTIPATION; Start 10/06/18 at 09:30 Magnesium Hydroxide (Milk Of Mag) 30 ml DAILY PRN PO .CONSTIPATION; Start 10/06/18 at 09:30 Lorazepam (Ativan) 0.5 mg Q6H PRN IV ANXIETY Last administered on 10/14/18at 02:16; Admin Dose 0.5 MG; Start 10/06/18 at 09:30 Albuterol/ Ipratropium (Duoneb) 3 ml Q4H RESP THERAPY PRN HHN SHORTNESS OF BREATH; Start 10/06/18 at 09:30 Nitroglycerin (Nitroglycerin (Sl Tab) 0.4 Mg) 1 tab Q5M PRN SL ANGINA; Start 10/06/18 at 09:30 Bisacodyl (Dulcolax) 10 mg DAILY PRN PO CONSTIPATION; Start 10/06/18 at 09:30 Donepezil HCl (Aricept) 5 mg QHS PO Last administered on 10/14/18 20:13; Admin Dose 5 MG; Start 10/06/18 at 21:00 Lactulose (Enulose) 20 gm TID PRN PO CONSTIPATION; Start 10/06/18 at 09:30 Levothyroxine Sodium (Synthroid) 50 mcg BEFORE BREAKFAST PO Last administered on 10/15/18 09:15; Admin Dose 50 MCG; Start 10/07/18 at 07:00 Mineral Oil (Fleet Mineral Oil Enema) 133 ml DAILY PRN [place] CONSTIPATION; Start 10/06/18 at 09:30 Multivitamins Therapeutic (Theragran) 1 tab DAILY PO Last administered on 10/15/18 09:15; Admin Dose 1 TAB; Start 10/07/18 at 09:00 Norepinephrine 32 mg/Dextrose 250 ml @ 0.47 mls/hr TITRATE IV Last administered on 10/08/18 12:53; Admin Dose 4.69 MLS/HR; Start 10/06/18 at 11:30 Aspirin (Aspirin) 81 mg DAILY NGT Last administered on 10/11/18 09:35; Admin Dose 81 MG; Start 10/06/18 at 12:30; Status Hold Atorvastatin Calcium (Lipitor) 40 mg DAILY@21 NGT Last administered on 10/14/18 20:12; Admin Dose 40 MG; Start 10/06/18 at 21:00 Miscellaneous Information (Flu Vaccine Previously Dispensed) FLU VACCINE PREVIOU... NOTE PRN XX NOTE; Start 10/06/18 at 18:00 Meropenem/Sodium Chloride 50 ml @ 100 mls/hr Q12 IVPB Last administered on 10/15/18 09:15; Admin Dose 100 MLS/HR; Start 10/07/18 at 12:00 Midazolam HCl 50 ml @ 0 mls/hr TITRATE IV Last administered on 10/09/18 22:21; Admin Dose 3 MLS/HR; Start 10/08/18 at 10:00 Fentanyl 100 ml @ 2.5 mls/hr TITRATE IV Last administered on 10/10/18 01:01; Admin Dose 2.5 MLS/HR; Start 10/08/18 at 16:30 Amiodarone HCl (Cordarone) 200 mg BID PO Last administered on 10/15/18 09:15; Admin Dose 200 MG; Start 10/09/18 at 21:00 Famotidine (Pepcid) 20 mg DAILY NGT Last administered on 10/15/18 09:15; Admin Dose 20 MG; Start 10/10/18 at 09:00 Phenylephrine HCl 250 ml @ 75 mls/hr TITRATE IV Last administered on 10/12/18 01:38; Admin Dose 6 MLS/HR; Start 10/09/18 at 13:00 Polyethylene Glycol (Miralax) 17 gm BID PRN PO constipation; Start 10/10/18 at 22:00 Metoprolol Tartrate (Lopressor) 25 mg BID PO Last administered on 10/15/18 09:38; Admin Dose 25 MG; Start 10/12/18 at 15:00 Metoprolol Tartrate (Lopressor) 5 mg Q4H PRN IV HR>110 Hold SBP<100; Start 10/12/18 at 15:00 Enoxaparin Sodium (Lovenox) 70 mg DAILY SC Last administered on 10/15/18 09:13; Admin Dose 70 MG; Start 10/14/18 at 09:00 Lorazepam (Ativan) 2 mg Q6H PRN IV seizures Last administered on 10/15/18 05:39; Admin Dose 2 MG; Start 10/14/18 at 14:30 Valproate Sodium (Depakene Liquid Cup) 1,000 mg Q8H GTB Last administered on 10/15/18 05:34; Admin Dose 1,000 MG; Start 10/14/18 at 21:00 Levetiracetam (Keppra Liquid) 1,000 mg BID GTB Last administered on 10/15/18 09:15; Admin Dose 1,000 MG; Start 10/14/18 at 21:00 Dextrose 1,000 ml @ 75 mls/hr [id number] IV Last administered on 10/15/18at 10:17; Admin Dose 75 MLS/HR; Start 10/15/18 at 10:00 Allergies: Coded Allergies: Penicillins (Verified Allergy, Unknown, 08/28/18) Sulfa (Sulfonamide Antibiotics) (Verified Allergy, Unknown, 08/28/18) clindamycin (Verified Allergy, Unknown, 08/28/18) ketorolac (Verified Allergy, Unknown, 08/28/18) lactase (Verified Allergy, Unknown, 08/28/18) Uncoded Allergies: TRYPTOPHAN (Allergy, Unknown, 08/28/18) Past Surgical History Past Surgical Hx: other (not available at this time ) Social History Alcohol Use: none Smoking Status: Never smoker Drug Use: none CHEYENNE JEAN NP Oct 15, 2018 13:06
[2018-10-15] MEDS: morphine 2 MG INJ IV PRN (13:23)
--- NOTE | 2018-10-15 13:45 | CONS ---
Assessment/Plan Assessment/Plan Hospital Course 67 F c/ dementia, epilepsy, and other comorbidities, who presents for management of cardiopulmonary Sx. She was noted to have a generalized convulsion on 10/08, for which neurology is consulted... Certainly her acute illness is lowering her seizure threshold.. CTH is without acute intracranial pathology EEG is notable for severe left hemispheric on diffuse slowing 10/12: breakthrough seizure --> ativan rescue Repeat EEG, 10/14, is without evidence of nonconvulsive status. P: Cont depakote 1g TID for now; repeat level Cont maintenance Keppra 1000mg bid for now Ativan iv prn prolonged seizure or cluster OK to continue asa for primary stroke prevention daily given her afib Continued medical management per primary Will follow clinically Consultation Date/Type/Reason Admit Date/Time Oct 06, 2018 at 09:29 Type of Consult Neurology Reason for Consultation seizure Requesting Provider: MANUEL ALEMAN Date/Time of Note DATE: 10/15/18 TIME: 13:35 24 HR Interval Summary Free Text/Dictation Continues critical care. Seen by palliative care. Pt had continued episodes of "tremors" today. Subjective hx not possible: pt non-verbal, pt critical Exam Vital Signs Vitals Vital Signs Date Temp Pulse Resp B/P (MAP) Pulse Ox O2 O2 Flow FiO2 Time Delivery Rate 10/15/18 67 12:00 10/15/18 99.0 13 100/71 99 Mechanical 12:00 (81) Ventilator 10/15/18 30 08:00 Intake and Output 10/14/18 10/14/18 10/15/18 1515:00 23:00 07:00 IntakeIntake Total 1540 ml 1465 ml 1240 ml OutputOutput Total 410 ml 475 ml 470 ml BalanceBalance 1130 ml 990 ml 770 ml Exam 67 F c/ dementia, epilepsy, and other comorbidities, who presents for management of cardiopulmonary Sx. She was noted to have a generalized convulsion on 10/08, for which neurology is consulted... Certainly her acute illness is lowering her seizure threshold.. CTH is without acute intracranial pathology EEG is notable for severe left hemispheric on diffuse slowing 10/12: breakthrough seizure --> ativan rescue P: Repeat EEG today Depacon [id number] iv, increase maintenance depakote to 1000 mg q8h Bolus Keppra 1g iv, then Increase Keppra to 1000mg bid for now, given improvement in renal function Ativan iv prn prolonged seizure or cluster OK to continue asa for primary stroke prevention daily given her afib Continued medical management per primary Will follow clinically CHEYENNE JEAN NP Oct 15, 2018 13:45 FROYLAN WOOD Oct 15, 2018 18:36
--- NOTE | 2018-10-15 14:14 | CONS ---
Assessment/Plan Assessment/Plan Hospital Course (Demo Recall) No acute events patient remains noncommunicative she is in no distress spiked low-grade fever this morning of 100 currently afebrile WBC 6.6 H&H 7.9 and 23.9 platelets 324 neutrophils 74.3 BUN 42 creatinine 1.01 Microbiology: Blood and urine cultures grew E. coli Indwelling: Endotracheal tube NG tube Piña catheter right IJ triple-lumen catheter Allergy: Penicillin, clindamycin Antibiotics: Merrem Physical examination: Well-developed chronically ill-appearing elderly woman. The patient is in no distress. Head atraumatic normocephalic. Neck is supple. Chest rise symmetrical, breath sounds diminished bases. Heart: S1-S2, tachycardic, irregular. Abdomen soft bowel sounds hypoactive. Extremities mottled cyanotic Assessment: 1. Sepsis with shock 2. E coli bacteremia secondary to urinary tract infection 3. Acute hypoxemic respiratory failure 4. Healthcare associated pneumonia, possibly aspiration 4. Acute possibly on chronic kidney disease 5. Non-ST elevation NC 6. Atrial fibrillation with RVR Plan: Clinically unchanged, repeat blood cultures negative. Continue abx to complete treatment for urosepsis and pneumonia, pending MRI of the brain Consultation Date/Type/Reason Admit Date/Time Oct 06, 2018 at 09:29 Initial Consult Date 10/06/18 Type of Consult id Requesting Provider: MANUEL ALEMAN Date/Time of Note DATE: 10/15/18 TIME: 14:13 Exam/Review of Systems Exam Vitals Vital Signs Date Temp Pulse Resp B/P (MAP) Pulse Ox O2 O2 Flow FiO2 Time Delivery Rate 10/15/18 67 12:00 10/15/18 99.0 13 100/71 99 Mechanical 12:00 (81) Ventilator 10/15/18 30 08:00 Intake and Output 10/14/18 10/14/18 10/15/18 1515:00 23:00 07:00 IntakeIntake Total 1540 ml 1465 ml 1240 ml OutputOutput Total 410 ml 475 ml 470 ml BalanceBalance 1130 ml 990 ml 770 ml Results Result Diagram: 10/15/18 0400 10/15/18 0400 Results 24hrs Laboratory Tests Test 10/14/18 20:05 10/15/18 04:00 10/15/18 05:04 White Blood Count 7.2 6.6 Red Blood Count 2.61 #L 2.53 L Hemoglobin 8.2 #L 7.9 L Hematocrit 24.4 #L 23.9 L Mean Corpuscular Volume 93.5 94.5 Mean Corpuscular Hemoglobin 31.4 31.2 Mean Corpuscular 33.6 33.1 Hemoglobin Concent Red Cell Distribution Width 16.0 H 16.4 H Platelet Count 321 324 Mean Platelet Volume 11.2 H 11.1 H Immature Granulocytes % 1.700 H 1.200 H Neutrophils % 71.8 74.3 Lymphocytes % 16.7 15.1 Monocytes % 9.1 8.9 Eosinophils % 0.4 0.3 Basophils % 0.3 0.2 Nucleated Red Blood Cells % 0.6 H 0.9 H Immature Granulocytes # 0.120 H 0.080 H Neutrophils # 5.2 4.9 Lymphocytes # 1.2 1.0 Monocytes # 0.7 0.6 Eosinophils # 0.0 0.0 Basophils # 0.0 0.0 Nucleated Red Blood Cells # 0.0 0.1 H Sodium Level 152 H Potassium Level 4.0 Chloride Level 115 H Carbon Dioxide Level 28 Anion Gap 9 Blood Urea Nitrogen 42 H Creatinine 1.01 H Est Glomerular Filtrat 55 L Rate mL/min Glucose Level 114 Calcium Level 8.5 Phosphorus Level 2.5 Magnesium Level 1.4 L Valproic Acid (Depakene) Level 27 L Lab Scanned Report BLOOD TRANSFUSION Medications Medication Current Medications IV Flush (NS 3 ml) 3 ml PER PROTOCOL IV ; Start 10/06/18 at 09:30 Ondansetron HCl (Zofran Inj) 4 mg Q6H PRN IV NAUSEA/VOMITING; Start 10/06/18 at 09:30 Acetaminophen (Tylenol Tab) 650 mg Q6H PRN PO .PAIN 1-3 OR TEMP Last adm inistered on 10/12/18at 08:27; Admin Dose 650 MG; Start 10/06/18 at 09:30 Acetaminophen/ Hydrocodone Bitart ([place] (5/325)) 1 tab Q6H PRN PO .MOD PAIN 4- 6; Start 10/06/18 at 09:30 Morphine Sulfate (morphine) 2 mg Q4H PRN IV .SEVERE PAIN 7-10 Last administered on 10/15/18at 13:23; Admin Dose 2 MG; Start 10/06/18 at 09:30 Docusate Sodium (Colace) 100 mg Q12H PRN PO .CONSTIPATION; Start 10/06/18 at 09:30 Magnesium Hydroxide (Milk Of Mag) 30 ml DAILY PRN PO .CONSTIPATION; Start 10/06/18 at 09:30 Lorazepam (Ativan) 0.5 mg Q6H PRN IV ANXIETY Last administered on 10/14/18 02:16; Admin Dose 0.5 MG; Start 10/06/18 at 09:30 Albuterol/ Ipratropium (Duoneb) 3 ml Q4H RESP THERAPY PRN HHN SHORTNESS OF BREATH; Start 10/06/18 at 09:30 Nitroglycerin (Nitroglycerin (Sl Tab) 0.4 Mg) 1 tab Q5M PRN SL ANGINA; Start 10/06/18 at 09:30 Bisacodyl (Dulcolax) 10 mg DAILY PRN PO CONSTIPATION; Start 10/06/18 at 09:30 Donepezil HCl (Aricept) 5 mg QHS PO Last administered on 10/14/18 20:13; Admin Dose 5 MG; Start 10/06/18 at 21:00 Lactulose (Enulose) 20 gm TID PRN PO CONSTIPATION; Start 10/06/18 at 09:30 Levothyroxine Sodium (Synthroid) 50 mcg BEFORE BREAKFAST PO Last administered on 10/15/18 09:15; Admin Dose 50 MCG; Start 10/07/18 at 07:00 Mineral Oil (Fleet Mineral Oil Enema) 133 ml DAILY PRN [place] CONSTIPATION; Start 10/06/18 at 09:30 Multivitamins Therapeutic (Theragran) 1 tab DAILY PO Last administered on 10/15/18 09:15; Admin Dose 1 TAB; Start 10/07/18 at 09:00 Norepinephrine 32 mg/Dextrose 250 ml @ 0.47 mls/hr TITRATE IV Last administered on 10/08/18 12:53; Admin Dose 4.69 MLS/HR; Start 10/06/18 at 11:30 Aspirin (Aspirin) 81 mg DAILY NGT Last administered on 10/11/18 09:35; Admin Dose 81 MG; Start 10/06/18 at 12:30; Status Hold Atorvastatin Calcium (Lipitor) 40 mg DAILY@21 NGT Last administered on 10/14/18 20:12; Admin Dose 40 MG; Start 10/06/18 at 21:00 Miscellaneous Information (Flu Vaccine Previously Dispensed) FLU VACCINE PREVIOU... NOTE PRN XX NOTE; Start 10/06/18 at 18:00 Meropenem/Sodium Chloride 50 ml @ 100 mls/hr Q12 IVPB Last administered on 10/15/18 09:15; Admin Dose 100 MLS/HR; Start 10/07/18 at 12:00 Midazolam HCl 50 ml @ 0 mls/hr TITRATE IV Last administered on 10/09/18 22:21; Admin Dose 3 MLS/HR; Start 10/08/18 at 10:00 Fentanyl 100 ml @ 2.5 mls/hr TITRATE IV Last administered on 10/10/18 01:01; Admin Dose 2.5 MLS/HR; Start 10/08/18 at 16:30 Amiodarone HCl (Cordarone) 200 mg BID PO Last administered on 10/15/18 09:15; Admin Dose 200 MG; Start 10/09/18 at 21:00 Famotidine (Pepcid) 20 mg DAILY NGT Last administered on 10/15/18 09:15; Admin Dose 20 MG; Start 10/10/18 at 09:00 Phenylephrine HCl 250 ml @ 75 mls/hr TITRATE IV Last administered on 10/12/18 01:38; Admin Dose 6 MLS/HR; Start 10/09/18 at 13:00 Polyethylene Glycol (Miralax) 17 gm BID PRN PO constipation; Start 10/10/18 at 22:00 Metoprolol Tartrate (Lopressor) 25 mg BID PO Last administered on 10/15/18 09:38; Admin Dose 25 MG; Start 10/12/18 at 15:00 Metoprolol Tartrate (Lopressor) 5 mg Q4H PRN IV HR>110 Hold SBP<100; Start 10/12/18 at 15:00 Enoxaparin Sodium (Lovenox) 70 mg DAILY SC Last administered on 10/15/18 09:13; Admin Dose 70 MG; Start 10/14/18 at 09:00 Lorazepam (Ativan) 2 mg Q6H PRN IV seizures Last administered on 10/15/18 05:39; Admin Dose 2 MG; Start 10/14/18 at 14:30 Valproate Sodium (Depakene Liquid Cup) 1,000 mg Q8H GTB Last administered on 10/15/18at 13:15; Admin Dose 1,000 MG; Start 10/14/18 at 21:00 Levetiracetam (Keppra Liquid) 1,000 mg BID GTB Last administered on 10/15/18at 09:15; Admin Dose 1,000 MG; Start 10/14/18 at 21:00 Dextrose 1,000 ml @ 75 mls/hr [id number] IV Last administered on 10/15/18at 10:17; Admin Dose 75 MLS/HR; Start 10/15/18 at 10:00 MARKOS BRADY NP Oct 15, 2018 14:14
--- NOTE | 2018-10-15 18:42 | EEG ---
EEG NOTE Report Details DATE OF TEST: 10/14/18 HISTORY: The patient is a 67-year-old F who presents with seizures. This EEG is requested to rule out nonconvulsive status epilepticus. SEDATION: None. CONDITIONS OF RECORDING: This EEG was recorded digitally on the [employer] machine, using the International 10-20 System of electrodes plus anterior temporals and [place]. STATES SAMPLED: Comatose. FINDINGS: The background is continuous, though asymmetric...predominated by polymorphic theta and delta activity...with disproportionate slowing in the left temporal region. The normal [id number] frequency-amplitude gradient was absent. Photic does not elicit any definite driving responses or epileptiform discharges. Hyperventilation was not performed. There are frequent left temporal epileptiform discharges.. IMPRESSION: Abnormal electroencephalogram due to: focal left temporal slowing with frequent left temporal epileptiform discharges. COMMENT: Focal left temporal slowing with frequent left temporal epileptiform discharges suggests a potential epileptogenic focus in that region. FROYLAN WOOD Oct 15, 2018 18:42
[2018-10-15] MEDS ORDERED: VALPROATE INJ 1,000 MG in SOD CHLORIDE 0.9% 100 ML IVPB ONE (19:00)
[2018-10-15] MEDS: ATORVASTATIN 40 MG TAB NGT SCH (21:27)
[2018-10-15] MEDS: DONEPEZIL 5 MG TAB PO SCH (22:28)
[2018-10-16] VITALS (36 sets, daily range): BP systolic 84–135; BP diastolic 50–118; PULSE 49–72; RESP 16–28
[2018-10-16] MEDS: LORAZEPAM 2 MG INJ IV PRN ×2 (01:49→12:02)
[2018-10-16] MEDS ORDERED: MIDAZOLAM (DRIP) 50 mg/50 mL 50 ML IV SCH (03:30)
[2018-10-16] MEDS: VALPROIC ACID LIQUID CUP 250 MG/5 ML CUP GTB SCH ×4 (04:06→22:51)
[2018-10-16] MEDS: MIDAZOLAM (DRIP) 50 mg/50 mL 50 ML IV SCH (04:11)
[2018-10-16] MEDS: LEVOTHYROXINE 50 MCG TAB PO SCH (06:53)
[2018-10-16] MEDS ORDERED: VALPROATE INJ 1,000 MG in SOD CHLORIDE 0.9% 100 ML IVPB STA (07:30)
[2018-10-16] MEDS: LEVETIRACETAM (100 MG/ML) 5ML CUP GTB SCH ×2 (08:03→22:50)
[2018-10-16] MEDS: MULTIVITAMINS THERAPEUTIC TAB PO SCH (08:03)
[2018-10-16] MEDS: FAMOTIDINE 20 MG TAB NGT SCH (08:04)
[2018-10-16] MEDS: MEROPENEM 500MG/50 ML (PMX) 50 ML IVPB SCH (08:04)
[2018-10-16] MEDS: AMIODARONE 200 MG TAB PO SCH ×2 (08:05→22:00)
[2018-10-16] MEDS: METOPROLOL 25 MG TAB PO SCH ×2 (08:05→22:00)
[2018-10-16] MEDS: BALSAM PERU/CASTOR OIL 60 GM TUBE TOP SCH (08:05)
[2018-10-16] MEDS: ENOXAPARIN 100 MG/ML SYG SC SCH (08:13)
--- NOTE | 2018-10-16 09:05 | CONS ---
Consult Date/Type/Reason Admit Date/Time Oct 06, 2018 at 09:29 Initial Consult Date 10/06/18 Type of Consult Pulmonary Requesting Provider: MANUEL ALEMAN Date/Time of Note DATE: 10/16/18 TIME: 09:04 Subjective Patient remains somnolent on mechanical ventilation. Grimaces to painful stimuli but not opening eyes or following commands. Currently remains off vasopressors. Moderate oral secretions on mechanical ventilation. Objective Vital Signs Date Temp Pulse Resp B/P (MAP) Pulse Ox O2 O2 Flow FiO2 Time Delivery Rate 10/16/18 98.3 67 22 135/118 99 Mechanical 08:00 (124) Ventilator 10/16/18 30 08:00 Intake and Output 10/15/18 10/15/18 10/16/18 1515:00 23:00 07:00 IntakeIntake Total 1240 ml 1290 ml 1441 ml OutputOutput Total 620 ml 625 ml 465 ml BalanceBalance 620 ml 665 ml 976 ml Exam Elderly lady orally intubated on mechanical ventilation VITAL SIGNS: per chart NECK: Supple. No JVD or lymphadenopathy. CARDIAC EXAM: S1, S2. No added sounds or murmurs. CHEST: Diminished air entry bilaterally ABDOMEN: Soft, nontender. No guarding or rebound. EXTREMITIES: No cyanosis, clubbing or edema. NEUROLOGIC: Generalized weakness. No focal deficits. Vent Setting Ventilator Support Mode: AC Fraction of Inspired Oxygen pe: 30 Positive End Expiratory Pressu: 5.0 Results/Medications Result Diagram: 10/16/18 0449 10/16/18 0449 Results 24 hrs Laboratory Tests Test 10/15/18 16:42 10/16/18 04:49 Valproic Acid (Depakene) Level 43 L 41 L White Blood Count 7.8 Red Blood Count 2.47 L Hemoglobin 7.7 L Hematocrit 23.9 L Mean Corpuscular Volume 96.8 Mean Corpuscular Hemoglobin 31.2 Mean Corpuscular Hemoglobin Concent 32.2 Red Cell Distribution Width 16.4 H Platelet Count 345 Mean Platelet Volume 11.3 H Immature Granulocytes % 0.900 H Neutrophils % 78.0 H Lymphocytes % 12.4 L Monocytes % 7.5 Eosinophils % 0.9 Basophils % 0.3 Nucleated Red Blood Cells % 0.6 H Immature Granulocytes # 0.070 H Neutrophils # 6.1 Lymphocytes # 1.0 Monocytes # 0.6 Eosinophils # 0.1 Basophils # 0.0 Nucleated Red Blood Cells # 0.1 H Sodium Level 147 H Potassium Level 4.2 Chloride Level 112 H Carbon Dioxide Level 28 Anion Gap 7 Blood Urea Nitrogen 36 H Creatinine 0.88 Est Glomerular Filtrat Rate mL/min > 60 Glucose Level 88 Calcium Level 8.5 Phosphorus Level 3.5 Magnesium Level 2.3 Medications Current Medications IV Flush (NS 3 ml) 3 ml PER PROTOCOL IV ; Start 10/06/18 at 09:30 Ondansetron HCl (Zofran Inj) 4 mg Q6H PRN IV NAUSEA/VOMITING; Start 10/06/18 at 09:30 Acetaminophen (Tylenol Tab) 650 mg Q6H PRN PO .PAIN 1-3 OR TEMP Last administered on 10/12/18at 08:27; Admin Dose 650 MG; Start 10/06/18 at 09:30 Acetaminophen/ Hydrocodone Bitart ([place] (5/325)) 1 tab Q6H PRN PO .MOD PAIN 4- 6; Start 10/06/18 at 09:30 Morphine Sulfate (morphine) 2 mg Q4H PRN IV .SEVERE PAIN 7-10 Last administered on 10/15/18at 13:23; Admin Dose 2 MG; Start 10/06/18 at 09:30 Docusate Sodium (Colace) 100 mg Q12H PRN PO .CONSTIPATION; Start 10/06/18 at 09:30 Magnesium Hydroxide (Milk Of Mag) 30 ml DAILY PRN PO .CONSTIPATION; Start 10/06/18 at 09:30 Lorazepam (Ativan) 0.5 mg Q6H PRN IV ANXIETY Last administered on 10/16/18at 01:49; Admin Dose 0.5 MG; Start 10/06/18 at 09:30 Albuterol/ Ipratropium (Duoneb) 3 ml Q4H RESP THERAPY PRN HHN SHORTNESS OF BREATH; Start 10/06/18 at 09:30 Nitroglycerin (Nitroglycerin (Sl Tab) 0.4 Mg) 1 tab Q5M PRN SL ANGINA; Start 10/06/18 at 09:30 Bisacodyl (Dulcolax) 10 mg DAILY PRN PO CONSTIPATION; Start 10/06/18 at 09:30 Donepezil HCl (Aricept) 5 mg QHS PO Last administered on 10/15/18 22:28; Admin Dose 5 MG; Start 10/06/18 at 21:00 Lactulose (Enulose) 20 gm TID PRN PO CONSTIPATION; Start 10/06/18 at 09:30 Levothyroxine Sodium (Synthroid) 50 mcg BEFORE BREAKFAST PO Last administered on 10/16/18 06:53; Admin Dose 50 MCG; Start 10/07/18 at 07:00 Mineral Oil (Fleet Mineral Oil Enema) 133 ml DAILY PRN [place] CONSTIPATION; Start 10/06/18 at 09:30 Multivitamins Therapeutic (Theragran) 1 tab DAILY PO Last administered on 10/16/18 08:03; Admin Dose 1 TAB; Start 10/07/18 at 09:00 Norepinephrine 32 mg/Dextrose 250 ml @ 0.47 mls/hr TITRATE IV Last administered on 10/08/18 12:53; Admin Dose 4.69 MLS/HR; Start 10/06/18 at 11:30 Aspirin (Aspirin) 81 mg DAILY NGT Last administered on 10/11/18 09:35; Admin Dose 81 MG; Start 10/06/18 at 12:30; Status Hold Atorvastatin Calcium (Lipitor) 40 mg DAILY@21 NGT Last administered on 10/15/18 21:27; Admin Dose 40 MG; Start 10/06/18 at 21:00 Miscellaneous Information (Flu Vaccine Previously Dispensed) FLU VACCINE PREVIOU... NOTE PRN XX NOTE; Start 10/06/18 at 18:00 Meropenem/Sodium Chloride 50 ml @ 100 mls/hr Q12 IVPB Last administered on 10/16/18 08:04; Admin Dose 100 MLS/HR; Start 10/07/18 at 12:00 Midazolam HCl 50 ml @ 0 mls/hr TITRATE IV Last administered on 10/16/18 04:11; Admin Dose 1 MLS/HR; Start 10/08/18 at 10:00 Fentanyl 100 ml @ 2.5 mls/hr TITRATE IV Last administered on 10/10/18 01:01; Admin Dose 2.5 MLS/HR; Start 10/08/18 at 16:30 Amiodarone HCl (Cordarone) 200 mg BID PO Last administered on 10/16/18 08:05; Admin Dose 200 MG; Start 10/09/18 at 21:00 Famotidine (Pepcid) 20 mg DAILY NGT Last administered on 10/16/18 08:04; Admin Dose 20 MG; Start 10/10/18 at 09:00 Phenylephrine HCl 250 ml @ 75 mls/hr TITRATE IV Last administered on 10/12/18 01:38; Admin Dose 6 MLS/HR; Start 10/09/18 at 13:00 Polyethylene Glycol (Miralax) 17 gm BID PRN PO constipation; Start 10/10/18 at 22:00 Metoprolol Tartrate (Lopressor) 25 mg BID PO Last administered on 10/16/18 08:05; Admin Dose 25 MG; Start 10/12/18 at 15:00 Metoprolol Tartrate (Lopressor) 5 mg Q4H PRN IV HR>110 Hold SBP<100; Start 10/12/18 at 15:00 Enoxaparin Sodium (Lovenox) 70 mg DAILY SC Last administered on 10/16/18 08:13; Admin Dose 70 MG; Start 10/14/18 at 09:00 Lorazepam (Ativan) 2 mg Q6H PRN IV seizures Last administered on 10/15/18 19:59; Admin Dose 2 MG; Start 10/14/18 at 14:30 Levetiracetam (Keppra Liquid) 1,000 mg BID GTB Last administered on 10/16/18 08:03; Admin Dose 1,000 MG; Start 10/14/18 at 21:00 Dextrose 1,000 ml @ 75 mls/hr [id number] IV Last administered on 10/15/18 23:26; Admin Dose 75 MLS/HR; Start 10/15/18 at 10:00 Valproate Sodium (Depakene Liquid Cup) 1,000 mg Q6H GTB Last administered on 10/16/18 09:01; Admin Dose 1,000 MG; Start 10/16/18 at 09:00 Assessment/Plan Hospital Course (Demo Recall) IMP: 1. Status post septic Shock: likely due to urinary tract infection 2. Respiratory Failure 2/2 #1 3. UMBERTO-- pre-renal vs. ATN 2/2 #1 4. NSTEMI: type II 5. Afib with RVR--now in SR 6. Hypothyroidism 7. Remains encephalopathic with likely underlying history of significant dementia. 8. Anemia likely dilutional with chronic disease currently no active bleeding RECS: 1. Continue mechanical ventilation not stable for weaning given mentation 2. Continue tube feeding as tolerated 3. Continue antibiotics, currently off vasopressors, currently improved 4. Renal recommendations regarding renal insufficiency metabolic acidosis improved. 5. Neuro recommendations regarding encephalopathy 6. Hold off on PRBC transfusion as currently patient is hemodynamically stable. If she requires vasopressors I would transfuse for another unit packed cells. Continue current supportive care critical care time 40 minutes prognosis is guarded Bioethics consultation PETER ARAUZ MD, [facility] Oct 16, 2018 09:05
--- NOTE | 2018-10-16 09:54 | PN ---
Date/Time of Note Date/Time of Note DATE: 10/16/18 TIME: 09:47 Assessment/Plan VTE Prophylaxis Risk score (from [facility] [place])>0 risk: 9 SCD applied (from [facility] [place]): Yes Pharmacological prophylaxis: other Lines/Catheters IV Catheter Type (from [facility]): Central Line Central line still needed: Yes Urinary Cath still in place: Yes Reason Cath still needed: urinary retention Assessment/Plan Hospital Course S: Patient per nursing staff having some tremors. Repeat EEG results noted, still awaiting MRI of the brain. O: VS -SEE BELOW PE: GENERAL: lying in bed, intubated. HEENT: Moist mucous membranes, ET tube in place. NECK: Supple, no thyromegaly. LUNGS: Mechanical breath sounds equal bilaterally. CARDIOVASCULAR: S1, S2 heard. No rubs or gallops. ABDOMEN: Soft, nontender, nondistended. Normal bowel sounds. No rebound or guarding. MUSCULOSKELETAL: No lower extremity edema bilaterally. Assessment/Plan: 67-year-old female coming in with signs of septic shock, likely secondary to urinary tract infection and pneumonia, elevated troponins, acute renal insufficiency, now intubated on pressor support. Also presented with atrial fibrillation with rapid ventricular response, now in normal sinus rhythm. #Septic shock - ID Dr. Sanford following- Likely due to UTI- Urine cultures and Blood cultures growing E Coli x2-has been off vasopressor support for the last 2 days. -Continue current broad-spectrum antibiotics, Tylenol p.r.n. pain and fevers. -Follow-up ID recommendations, final culture results, continue IV fluids #Seizure- Morning of 10/08 had whole body twitching concerning for seizures; got Ativan then Versed. Again on 10/11 had a similar episode broken with Ativan-10/08/18 EEG appears to have localized lesion but CT head is negative. Repeat EEG from 10/15/18 results noted, neuro following. - Continue keppra, valproic acid, follow-up neurology recommendation -Holding versed, but continue Ativan as needed - Pending MRI [id number] results of this # NSTEMI - Unclear if this is true non-ST elevation myocardial infarction versus demand ischemia- s/p heparin gtt earlier this admission. - Continue high dose aspirin. - She is also on Lipitor. -Cardiology Dr. Mello consulted, follow-up their recommendations #A fib with RVR, paroxysmal- Dr. Mello following- Converted to normal sinus after getting Cardizem in ED-apparently went back in A fib later, now presently normal sinus rhythm -Monitor heart rate for now, follow cardiology recommendations -Continue p.o. beta-panda and p.o. amiodarone for now # Renal insufficiency - improving- Not anuric - Dr. Davila consulted, monitor for now # Hypothyroidism - Continue current thyroid medicines. - Low TSH, normal fT4 consistent with sick euthyroid syndrome. # History of dementia. - Continue Aricept for now. # History of high cholesterol. - Cont statin #Anemia: Unclear source, hemoglobin today 8 range after transfusion yesterday. -Monitor, follow-up occult test #Hypernatremia: Sodium trending down now, 147 today -We will lower the amount of free water, continue D5W IV fluids # Gastrointestinal prophylaxis- H2 panda. # Deep venous thrombosis prophylaxis - due to anemia- SCDs Dispo: Bioethics meeting to be held in the next 24 hours to discuss CODE STATUS and further treatment of care. 40 minutes critical care time spent on this patient. Result Diagram: 10/16/18 0449 10/16/18 0449 Results 24hrs Laboratory Tests Test 10/15/18 16:42 10/16/18 04:49 Valproic Acid (Depakene) Level 43 L 41 L White Blood Count 7.8 Red Blood Count 2.47 L Hemoglobin 7.7 L Hematocrit 23.9 L Mean Corpuscular Volume 96.8 Mean Corpuscular Hemoglobin 31.2 Mean Corpuscular Hemoglobin Concent 32.2 Red Cell Distribution Width 16.4 H Platelet Count 345 Mean Platelet Volume 11.3 H Immature Granulocytes % 0.900 H Neutrophils % 78.0 H Lymphocytes % 12.4 L Monocytes % 7.5 Eosinophils % 0.9 Basophils % 0.3 Nucleated Red Blood Cells % 0.6 H Immature Granulocytes # 0.070 H Neutrophils # 6.1 Lymphocytes # 1.0 Monocytes # 0.6 Eosinophils # 0.1 Basophils # 0.0 Nucleated Red Blood Cells # 0.1 H Sodium Level 147 H Potassium Level 4.2 Chloride Level 112 H Carbon Dioxide Level 28 Anion Gap 7 Blood Urea Nitrogen 36 H Creatinine 0.88 Est Glomerular Filtrat Rate mL/min > 60 Glucose Level 88 Calcium Level 8.5 Phosphorus Level 3.5 Magnesium Level 2.3 Exam/Review of Systems Exam Vitals Vital Signs Date Temp Pulse Resp B/P (MAP) Pulse Ox O2 O2 Flow FiO2 Time Delivery Rate 10/16/18 68 16 122/84 99 Mechanical 09:00 (97) Ventilator 10/16/18 98.3 08:00 10/16/18 30 08:00 Intake and Output 10/15/18 10/15/18 10/16/18 1515:00 23:00 07:00 IntakeIntake Total 1240 ml 1290 ml 1441 ml OutputOutput Total 620 ml 625 ml 465 ml BalanceBalance 620 ml 665 ml 976 ml Results Results 24hrs Laboratory Tests Test 10/15/18 16:42 10/16/18 04:49 Valproic Acid (Depakene) Level 43 L 41 L White Blood Count 7.8 Red Blood Count 2.47 L Hemoglobin 7.7 L Hematocrit 23.9 L Mean Corpuscular Volume 96.8 Mean Corpuscular Hemoglobin 31.2 Mean Corpuscular Hemoglobin Concent 32.2 Red Cell Distribution Width 16.4 H Platelet Count 345 Mean Platelet Volume 11.3 H Immature Granulocytes % 0.900 H Neutrophils % 78.0 H Lymphocytes % 12.4 L Monocytes % 7.5 Eosinophils % 0.9 Basophils % 0.3 Nucleated Red Blood Cells % 0.6 H Immature Granulocytes # 0.070 H Neutrophils # 6.1 Lymphocytes # 1.0 Monocytes # 0.6 Eosinophils # 0.1 Basophils # 0.0 Nucleated Red Blood Cells # 0.1 H Sodium Level 147 H Potassium Level 4.2 Chloride Level 112 H Carbon Dioxide Level 28 Anion Gap 7 Blood Urea Nitrogen 36 H Creatinine 0.88 Est Glomerular Filtrat Rate mL/min > 60 Glucose Level 88 Calcium Level 8.5 Phosphorus Level 3.5 Magnesium Level 2.3 Medications Medication Current Medications IV Flush (NS 3 ml) 3 ml PER PROTOCOL IV ; Start 10/06/18 at 09:30 Ondansetron HCl (Zofran Inj) 4 mg Q6H PRN IV NAUSEA/VOMITING; Start 10/06/18 at 09:30 Acetaminophen (Tylenol Tab) 650 mg Q6H PRN PO .PAIN 1-3 OR TEMP Last administered on 10/12/18at 08:27; Admin Dose 650 MG; Start 10/06/18 at 09:30 Acetaminophen/ Hydrocodone Bitart ([place] (5/325)) 1 tab Q6H PRN PO .MOD PAIN 4- 6; Start 10/06/18 at 09:30 Morphine Sulfate (morphine) 2 mg Q4H PRN IV .SEVERE PAIN 7-10 Last administered on 10/15/18at 13:23; Admin Dose 2 MG; Start 10/06/18 at 09:30 Docusate Sodium (Colace) 100 mg Q12H PRN PO .CONSTIPATION; Start 10/06/18 at 09:30 Magnesium Hydroxide (Milk Of Mag) 30 ml DAILY PRN PO .CONSTIPATION; Start 10/06/18 at 09:30 Lorazepam (Ativan) 0.5 mg Q6H PRN IV ANXIETY Last administered on 10/16/18at 01:49; Admin Dose 0.5 MG; Start 10/06/18 at 09:30 Albuterol/ Ipratropium (Duoneb) 3 ml Q4H RESP THERAPY PRN HHN SHORTNESS OF BREATH; Start 10/06/18 at 09:30 Nitroglycerin (Nitroglycerin (Sl Tab) 0.4 Mg) 1 tab Q5M PRN SL ANGINA; Start 10/06/18 at 09:30 Bisacodyl (Dulcolax) 10 mg DAILY PRN PO CONSTIPATION; Start 10/06/18 at 09:30 Donepezil HCl (Aricept) 5 mg QHS PO Last administered on 10/15/18at 22:28; Admin Dose 5 MG; Start 10/06/18 at 21:00 Lactulose (Enulose) 20 gm TID PRN PO CONSTIPATION; Start 10/06/18 at 09:30 Levothyroxine Sodium (Synthroid) 50 mcg BEFORE BREAKFAST PO Last administered on 10/16/18at 06:53; Admin Dose 50 MCG; Start 10/07/18 at 07:00 Mineral Oil (Fleet Mineral Oil Enema) 133 ml DAILY PRN [place] CONSTIPATION; Start 10/06/18 at 09:30 Multivitamins Therapeutic (Theragran) 1 tab DAILY PO Last administered on 10/16/18at 08:03; Admin Dose 1 TAB; Start 10/07/18 at 09:00 Norepinephrine 32 mg/Dextrose 250 ml @ 0.47 mls/hr TITRATE IV Last administered on 10/08/18at 12:53; Admin Dose 4.69 MLS/HR; Start 10/06/18 at 11:30 Aspirin (Aspirin) 81 mg DAILY NGT Last administered on 10/11/18 09:35; Admin Dose 81 MG; Start 10/06/18 at 12:30; Status Hold Atorvastatin Calcium (Lipitor) 40 mg DAILY@21 NGT Last administered on 10/15/18 21:27; Admin Dose 40 MG; Start 10/06/18 at 21:00 Miscellaneous Information (Flu Vaccine Previously Dispensed) FLU VACCINE PREVIOU... NOTE PRN XX NOTE; Start 10/06/18 at 18:00 Meropenem/Sodium Chloride 50 ml @ 100 mls/hr Q12 IVPB Last administered on 10/16/18 08:04; Admin Dose 100 MLS/HR; Start 10/07/18 at 12:00 Midazolam HCl 50 ml @ 0 mls/hr TITRATE IV Last administered on 10/16/18 04:11; Admin Dose 1 MLS/HR; Start 10/08/18 at 10:00 Fentanyl 100 ml @ 2.5 mls/hr TITRATE IV Last administered on 10/10/18 01:01; Admin Dose 2.5 MLS/HR; Start 10/08/18 at 16:30 Amiodarone HCl (Cordarone) 200 mg BID PO Last administered on 10/16/18 08:05; Admin Dose 200 MG; Start 10/09/18 at 21:00 Famotidine (Pepcid) 20 mg DAILY NGT Last administered on 10/16/18 08:04; Admin Dose 20 MG; Start 10/10/18 at 09:00 Phenylephrine HCl 250 ml @ 75 mls/hr TITRATE IV Last administered on 10/12/18 01:38; Admin Dose 6 MLS/HR; Start 10/09/18 at 13:00 Polyethylene Glycol (Miralax) 17 gm BID PRN PO constipation; Start 10/10/18 at 22:00 Metoprolol Tartrate (Lopressor) 25 mg BID PO Last administered on 10/16/18 08:05; Admin Dose 25 MG; Start 10/12/18 at 15:00 Metoprolol Tartrate (Lopressor) 5 mg Q4H PRN IV HR>110 Hold SBP<100; Start 10/12/18 at 15:00 Enoxaparin Sodium (Lovenox) 70 mg DAILY SC Last administered on 10/16/18 08:13; Admin Dose 70 MG; Start 10/14/18 at 09:00 Lorazepam (Ativan) 2 mg Q6H PRN IV seizures Last administered on 10/15/18 19:59; Admin Dose 2 MG; Start 10/14/18 at 14:30 Levetiracetam (Keppra Liquid) 1,000 mg BID GTB Last administered on 10/16/18 08:03; Admin Dose 1,000 MG; Start 10/14/18 at 21:00 Dextrose 1,000 ml @ 75 mls/hr [id number] IV Last administered on 10/15/18 23:26; Admin Dose 75 MLS/HR; Start 10/15/18 at 10:00 Valproate Sodium (Depakene Liquid Cup) 1,000 mg Q6H GTB Last administered on 10/16/18 09:01; Admin Dose 1,000 MG; Start 10/16/18 at 09:00 MANUEL ALEMAN Oct 16, 2018 09:54
--- NOTE | 2018-10-16 11:01 | CONS ---
Assessment/Plan Assessment/Plan Hospital Course (Demo Recall) IMP: 1. Nstemi- in setting of renal failure and shock. Downtrended 2.Shock-on levo 3.Tachycardia-S tach at this time 4.UTI 5.PAF with RVR-now back in SR this AM 6.Renal failure 7.Dyslipidemia 8.Sz d/o 9. Hypothyroid 10. anemia-s/p transfusions Recc: -ICU -BB as tolerated only -Follow rhythm and rate closely -Continue abx's and f/u cx data -Continue statin -now in SR on po amio. Will follow rhythm clsoely -Lovenox as tolerated only given anemia requiring transfusions Consultation Date/Type/Reason Admit Date/Time Oct 06, 2018 at 09:29 Initial Consult Date 10/06/18 Type of Consult Cardiology Reason for Consultation PAF Requesting Provider: MANUEL AELMAN Date/Time of Note DATE: 10/16/18 TIME: 10:57 Exam/Review of Systems Vital Signs Vitals Vital Signs Date Temp Pulse Resp B/P (MAP) Pulse Ox O2 O2 Flow FiO2 Time Delivery Rate 10/16/18 64 19 116/68 99 Mechanical 10:00 (84) Ventilator 10/16/18 98.3 08:00 10/16/18 30 08:00 Intake and Output 10/15/18 10/15/18 10/16/18 1515:00 23:00 07:00 IntakeIntake Total 1240 ml 1290 ml 1441 ml OutputOutput Total 620 ml 625 ml 465 ml BalanceBalance 620 ml 665 ml 976 ml Exam Exam Review of Systems: CONSTITUTIONAL: No fevers, chills. PULMONARY: intubated CARDIOVASCULAR: No obvious chest pain/palpitations GASTROINTESTINAL: No nausea/vomiting. GENITOURINARY: No hematuria/dysuria. MUSCULOSKELETAL: No obvious myagias/arthalgias. PSYCHIATRIC: The patient denies depression. NEUROLOGIC: No weakness Constitutional: other (sedated) Psych: no complaints Head: normocephalic ENMT: intubated Neck: supple, jvd (9 cm water) Respiratory: diminished breath sounds (at bases/B) Cardiovascular: regular rate and rhythm Gastrointestinal: soft, non-tender Musculoskeletal: muscle tone (normal) Extremities: edema (none) Neurological: other (No focal deficits) Labs Result Diagram: 10/16/18 0449 10/16/18 0449 Results 24hrs Laboratory Tests Test 10/15/18 16:42 10/16/18 04:49 Valproic Acid (Depakene) Level 43 L 41 L White Blood Count 7.8 Red Blood Count 2.47 L Hemoglobin 7.7 L Hematocrit 23.9 L Mean Corpuscular Volume 96.8 Mean Corpuscular Hemoglobin 31.2 Mean Corpuscular Hemoglobin Concent 32.2 Red Cell Distribution Width 16.4 H Platelet Count 345 Mean Platelet Volume 11.3 H Immature Granulocytes % 0.900 H Neutrophils % 78.0 H Lymphocytes % 12.4 L Monocytes % 7.5 Eosinophils % 0.9 Basophils % 0.3 Nucleated Red Blood Cells % 0.6 H Immature Granulocytes # 0.070 H Neutrophils # 6.1 Lymphocytes # 1.0 Monocytes # 0.6 Eosinophils # 0.1 Basophils # 0.0 Nucleated Red Blood Cells # 0.1 H Sodium Level 147 H Potassium Level 4.2 Chloride Level 112 H Carbon Dioxide Level 28 Anion Gap 7 Blood Urea Nitrogen 36 H Creatinine 0.88 Est Glomerular Filtrat Rate mL/min > 60 Glucose Level 88 Calcium Level 8.5 Phosphorus Level 3.5 Magnesium Level 2.3 Medications Medications Current Medications IV Flush (NS 3 ml) 3 ml PER PROTOCOL IV ; Start 10/06/18 at 09:30 Ondansetron HCl (Zofran Inj) 4 mg Q6H PRN IV NAUSEA/VOMITING; Start 10/06/18 at 09:30 Acetaminophen (Tylenol Tab) 650 mg Q6H PRN PO .PAIN 1-3 OR TEMP Last administered on 10/12/18at 08:27; Admin Dose 650 MG; Start 10/06/18 at 09:30 Acetaminophen/ Hydrocodone Bitart ([place] (5/325)) 1 tab Q6H PRN PO .MOD PAIN 4- 6; Start 10/06/18 at 09:30 Morphine Sulfate (morphine) 2 mg Q4H PRN IV .SEVERE PAIN 7-10 Last administered on 10/15/18at 13:23; Admin Dose 2 MG; Start 10/06/18 at 09:30 Docusate Sodium (Colace) 100 mg Q12H PRN PO .CONSTIPATION; Start 10/06/18 at 09:30 Magnesium Hydroxide (Milk Of Mag) 30 ml DAILY PRN PO .CONSTIPATION; Start 10/06/18 at 09:30 Albuterol/ Ipratropium (Duoneb) 3 ml Q4H RESP THERAPY PRN HHN SHORTNESS OF BREATH; Start 10/06/18 at 09:30 Nitroglycerin (Nitroglycerin (Sl Tab) 0.4 Mg) 1 tab Q5M PRN SL ANGINA; Start 10/06/18 at 09:30 Bisacodyl (Dulcolax) 10 mg DAILY PRN PO CONSTIPATION; Start 10/06/18 at 09:30 Donepezil HCl (Aricept) 5 mg QHS PO Last administered on 10/15/18 22:28; Admin Dose 5 MG; Start 10/06/18 at 21:00 Lactulose (Enulose) 20 gm TID PRN PO CONSTIPATION; Start 10/06/18 at 09:30 Levothyroxine Sodium (Synthroid) 50 mcg BEFORE BREAKFAST PO Last administered on 10/16/18 06:53; Admin Dose 50 MCG; Start 10/07/18 at 07:00 Mineral Oil (Fleet Mineral Oil Enema) 133 ml DAILY PRN [place] CONSTIPATION; Start 10/06/18 at 09:30 Multivitamins Therapeutic (Theragran) 1 tab DAILY PO Last administered on 10/16/18 08:03; Admin Dose 1 TAB; Start 10/07/18 at 09:00 Norepinephrine 32 mg/Dextrose 250 ml @ 0.47 mls/hr TITRATE IV Last administered on 10/08/18 12:53; Admin Dose 4.69 MLS/HR; Start 10/06/18 at 11:30 Aspirin (Aspirin) 81 mg DAILY NGT Last administered on 10/11/18 09:35; Admin Dose 81 MG; Start 10/06/18 at 12:30; Status Hold Atorvastatin Calcium (Lipitor) 40 mg DAILY@21 NGT Last administered on 10/15/18 21:27; Admin Dose 40 MG; Start 10/06/18 at 21:00 Miscellaneous Information (Flu Vaccine Previously Dispensed) FLU VACCINE [place]... NOTE PRN XX NOTE; Start 10/06/18 at 18:00 Meropenem/Sodium Chloride 50 ml @ 100 mls/hr Q12 IVPB Last administered on 10/16/18 08:04; Admin Dose 100 MLS/HR; Start 10/07/18 at 12:00 Midazolam HCl 50 ml @ 0 mls/hr TITRATE IV Last administered on 10/16/18 04:11; Admin Dose 1 MLS/HR; Start 10/08/18 at 10:00 Fentanyl 100 ml @ 2.5 mls/hr TITRATE IV Last administered on 10/10/18 01:01; Admin Dose 2.5 MLS/HR; Start 10/08/18 at 16:30 Amiodarone HCl (Cordarone) 200 mg BID PO Last administered on 10/16/18 08:05; Admin Dose 200 MG; Start 10/09/18 at 21:00 Famotidine (Pepcid) 20 mg DAILY NGT Last administered on 10/16/18 08:04; Admin Dose 20 MG; Start 10/10/18 at 09:00 Phenylephrine HCl 250 ml @ 75 mls/hr TITRATE IV Last administered on 10/12/18 01:38; Admin Dose 6 MLS/HR; Start 10/09/18 at 13:00 Polyethylene Glycol (Miralax) 17 gm BID PRN PO constipation; Start 10/10/18 at 22:00 Metoprolol Tartrate (Lopressor) 25 mg BID PO Last administered on 10/16/18 08:05; Admin Dose 25 MG; Start 10/12/18 at 15:00 Metoprolol Tartrate (Lopressor) 5 mg Q4H PRN IV HR>110 Hold SBP<100; Start 10/12 at 15:00 Enoxaparin Sodium (Lovenox) 70 mg DAILY SC Last administered on 10/16/18 08:13; Admin Dose 70 MG; Start 10/14/18 at 09:00 Levetiracetam (Keppra Liquid) 1,000 mg BID GTB Last administered on 10/16/18 08:03; Admin Dose 1,000 MG; Start 10/14/18 at 21:00 Dextrose 1,000 ml @ 75 mls/hr [id number] IV Last administered on 10/15/18 23:26; Admin Dose 75 MLS/HR; Start 10/15/18 at 10:00 Valproate Sodium (Depakene Liquid Cup) 1,000 mg Q6H GTB Last administered on 10/16/18 09:01; Admin Dose 1,000 MG; Start 10/16/18 at 09:00 ANGELA CARY Oct 16, 2018 11:01
--- NOTE | 2018-10-16 12:21 | CONS ---
Assessment/Plan Assessment/Plan Assessment/Plan (Daily) 1. Non Oliguric Acute kidney injury due to ATN from septic shock 2. Septic shock due to UTI 3. acute UTI with Urine Cx growing E.Coli 4. Acute hypoxic respiratory failure intubated on ventilator 5. H/o HTN 6 H/o HL 7. H/o Hypothyroidism 8. Bacteremia with blood cx 2/2 growing E.Coli Plan: Na 147, BUN/Cr 36/0.88, pt remains intubated, Hb 7.9, BP stable, adequate urine output 1.7 liter in last 24 hr- - no acute indication of HD at this time repeat EEG ordered,still awaiting MRI brain s/p PRBC transfusion for anemia Id following , IV abx for UTI and bacteremia , Renally dose all abx and monitor electrolytes ventilator management as per Pulmonary will follow up Consultation Date/Type/Reason Admit Date/Time Oct 06, 2018 at 09:29 Initial Consult Date 10/06/18 Type of Consult NEPHROLOGY Requesting Provider: MANUEL ALEMAN Date/Time of Note DATE: 10/16/18 TIME: 12:21 24 HR Interval Summary Free Text/Dictation Na 147, BUN/Cr 36/0.88, afebrile, BP stable , noticed some tremors as per nursing chart review Exam/Review of Systems Exam Vitals Vital Signs Date Temp Pulse Resp B/P (MAP) Pulse Ox O2 O2 Flow FiO2 Time Delivery Rate 10/16/18 98.7 68 27 135/91 99 Mechanical 12:00 (106) Ventilator 10/16/18 30 08:00 Intake and Output 10/15/18 10/15/18 10/16/18 1515:00 23:00 07:00 IntakeIntake Total 1240 ml 1290 ml 1441 ml OutputOutput Total 620 ml 625 ml 465 ml BalanceBalance 620 ml 665 ml 976 ml Exam Constitutional: non-verbal, other (Intuabted, on ventilator ) Respiratory: congested cough, crackles/rales, diminished breath sounds Cardiovascular: nl pulses, irregular rhythm Gastrointestinal: soft, non-tender Musculoskeletal: swelling Neurological: other (sedated on ventilator ) Results Result Diagram: 10/16/18 0449 10/16/18 0449 Results 24hrs Laboratory Tests Test 10/15/18 16:42 10/16/18 04:49 Valproic Acid (Depakene) Level 43 L 41 L White Blood Count 7.8 Red Blood Count 2.47 L Hemoglobin 7.7 L Hematocrit 23.9 L Mean Corpuscular Volume 96.8 Mean Corpuscular Hemoglobin 31.2 Mean Corpuscular Hemoglobin Concent 32.2 Red Cell Distribution Width 16.4 H Platelet Count 345 Mean Platelet Volume 11.3 H Immature Granulocytes % 0.900 H Neutrophils % 78.0 H Lymphocytes % 12.4 L Monocytes % 7.5 Eosinophils % 0.9 Basophils % 0.3 Nucleated Red Blood Cells % 0.6 H Immature Granulocytes # 0.070 H Neutrophils # 6.1 Lymphocytes # 1.0 Monocytes # 0.6 Eosinophils # 0.1 Basophils # 0.0 Nucleated Red Blood Cells # 0.1 H Sodium Level 147 H Potassium Level 4.2 Chloride Level 112 H Carbon Dioxide Level 28 Anion Gap 7 Blood Urea Nitrogen 36 H Creatinine 0.88 Est Glomerular Filtrat Rate mL/min > 60 Glucose Level 88 Calcium Level 8.5 Phosphorus Level 3.5 Magnesium Level 2.3 Medications Medication Current Medications IV Flush (NS 3 ml) 3 ml PER PROTOCOL IV ; Start 10/06/18 at 09:30 Ondansetron HCl (Zofran Inj) 4 mg Q6H PRN IV NAUSEA/VOMITING; Start 10/06/18 at 09:30 Acetaminophen (Tylenol Tab) 650 mg Q6H PRN PO .PAIN 1-3 OR TEMP Last administered on 10/12/18at 08:27; Admin Dose 650 MG; Start 10/06/18 at 09:30 Acetaminophen/ Hydrocodone Bitart ([place] (5/325)) 1 tab Q6H PRN PO .MOD PAIN 4- 6; Start 10/06/18 at 09:30 Morphine Sulfate (morphine) 2 mg Q4H PRN IV .SEVERE PAIN 7-10 Last administered on 10/15/18at 13:23; Admin Dose 2 MG; Start 10/06/18 at 09:30 Docusate Sodium (Colace) 100 mg Q12H PRN PO .CONSTIPATION; Start 10/06/18 at 09:30 Magnesium Hydroxide (Milk Of Mag) 30 ml DAILY PRN PO .CONSTIPATION; Start 10/06/18 at 09:30 Albuterol/ Ipratropium (Duoneb) 3 ml Q4H RESP THERAPY PRN HHN SHORTNESS OF BREATH; Start 10/06/18 at 09:30 Nitroglycerin (Nitroglycerin (Sl Tab) 0.4 Mg) 1 tab Q5M PRN SL ANGINA; Start 10/06/18 at 09:30 Bisacodyl (Dulcolax) 10 mg DAILY PRN PO CONSTIPATION; Start 10/06/18 at 09:30 Donepezil HCl (Aricept) 5 mg QHS PO Last administered on 10/15/18 22:28; Admin Dose 5 MG; Start 10/06/18 at 21:00 Lactulose (Enulose) 20 gm TID PRN PO CONSTIPATION; Start 10/06/18 at 09:30 Levothyroxine Sodium (Synthroid) 50 mcg BEFORE BREAKFAST PO Last administered on 10/16/18 06:53; Admin Dose 50 MCG; Start 10/07/18 at 07:00 Mineral Oil (Fleet Mineral Oil Enema) 133 ml DAILY PRN [place] CONSTIPATION; Start 10/06/18 at 09:30 Multivitamins Therapeutic (Theragran) 1 tab DAILY PO Last administered on 10/16/18 08:03; Admin Dose 1 TAB; Start 10/07/18 at 09:00 Norepinephrine 32 mg/Dextrose 250 ml @ 0.47 mls/hr TITRATE IV Last administered on 10/08/18 12:53; Admin Dose 4.69 MLS/HR; Start 10/06/18 at 11:30 Aspirin (Aspirin) 81 mg DAILY NGT Last administered on 10/11/18 09:35; Admin Dose 81 MG; Start 10/06/18 at 12:30; Status Hold Atorvastatin Calcium (Lipitor) 40 mg DAILY@21 NGT Last administered on 10/15/18 21:27; Admin Dose 40 MG; Start 10/06/18 at 21:00 Miscellaneous Information (Flu Vaccine Previously Dispensed) FLU VACCINE PREVIOU... NOTE PRN XX NOTE; Start 10/06/18 at 18:00 Meropenem/Sodium Chloride 50 ml @ 100 mls/hr Q12 IVPB Last administered on 10/16/18 08:04; Admin Dose 100 MLS/HR; Start 10/07/18 at 12:00 Midazolam HCl 50 ml @ 0 mls/hr TITRATE IV Last administered on 10/16/18 04:11; Admin Dose 1 MLS/HR; Start 10/08/18 at 10:00 Fentanyl 100 ml @ 2.5 mls/hr TITRATE IV Last administered on 10/10/18 01:01; Admin Dose 2.5 MLS/HR; Start 10/08/18 at 16:30 Amiodarone HCl (Cordarone) 200 mg BID PO Last administered on 10/16/18 08:05; Admin Dose 200 MG; Start 10/09/18 at 21:00 Famotidine (Pepcid) 20 mg DAILY NGT Last administered on 10/16/18 08:04; Admin Dose 20 MG; Start 10/10/18 at 09:00 Phenylephrine HCl 250 ml @ 75 mls/hr TITRATE IV Last administered on 10/12/18 01:38; Admin Dose 6 MLS/HR; Start 10/09/18 at 13:00 Polyethylene Glycol (Miralax) 17 gm BID PRN PO constipation; Start 10/10/18 at 22:00 Metoprolol Tartrate (Lopressor) 25 mg BID PO Last administered on 10/16/18 08:05; Admin Dose 25 MG; Start 10/12/18 at 15:00 Metoprolol Tartrate (Lopressor) 5 mg Q4H PRN IV HR>110 Hold SBP<100; Start 10/12/18 at 15:00 Enoxaparin Sodium (Lovenox) 70 mg DAILY SC Last administered on 10/16/18 08:13; Admin Dose 70 MG; Start 10/14/18 at 09:00 Levetiracetam (Keppra Liquid) 1,000 mg BID GTB Last administered on 10/16/18 08:03; Admin Dose 1,000 MG; Start 10/14/18 at 21:00 Dextrose 1,000 ml @ 75 mls/hr [id number] IV Last administered on 10/15/18 23:26; Admin Dose 75 MLS/HR; Start 10/15/18 at 10:00 Valproate Sodium (Depakene Liquid Cup) 1,000 mg Q6H GTB Last administered on 10/16/18 09:01; Admin Dose 1,000 MG; Start 10/16/18 at 09:00 Lorazepam (Ativan) 1 mg Q4H PRN IV SEIZURES Last administered on 3/13/19at 12:02; Admin Dose 1 MG; Start 10/16/18 at 12:00 VALARIE BENNETT MD Oct 16, 2018 12:21
--- NOTE | 2018-10-16 12:54 | CONS ---
Consultation Date/Type/Reason Admit Date/Time Oct 06, 2018 at 09:29 Initial Consult Date 10/06/18 Requesting Provider: MANUEL ALEMAN Date/Time of Note DATE: 10/16/18 TIME: 12:50 24 HR Interval Summary Free Text/Dictation Patient is scheduled for a Bioethics consultation... SWS have done their best to find a next of kin and patients code status will be addressed as well as the need for PEG and TRach if committtee agrees. Exam/Review of Systems Exam Vitals Vital Signs Date Temp Pulse Resp B/P (MAP) Pulse Ox O2 O2 Flow FiO2 Time Delivery Rate 10/16/18 98.7 68 27 135/91 99 Mechanical 12:00 (106) Ventilator 10/16/18 30 08:00 Intake and Output 10/15/18 10/15/18 10/16/18 1515:00 23:00 07:00 IntakeIntake Total 1240 ml 1290 ml 1441 ml OutputOutput Total 620 ml 625 ml 465 ml BalanceBalance 620 ml 665 ml 976 ml Results Result Diagram: 10/16/18 0449 10/16/18 0449 Results 24hrs Laboratory Tests Test 10/15/18 16:42 10/16/18 04:49 Valproic Acid (Depakene) Level 43 L 41 L White Blood Count 7.8 Red Blood Count 2.47 L Hemoglobin 7.7 L Hematocrit 23.9 L Mean Corpuscular Volume 96.8 Mean Corpuscular Hemoglobin 31.2 Mean Corpuscular Hemoglobin Concent 32.2 Red Cell Distribution Width 16.4 H Platelet Count 345 Mean Platelet Volume 11.3 H Immature Granulocytes % 0.900 H Neutrophils % 78.0 H Lymphocytes % 12.4 L Monocytes % 7.5 Eosinophils % 0.9 Basophils % 0.3 Nucleated Red Blood Cells % 0.6 H Immature Granulocytes # 0.070 H Neutrophils # 6.1 Lymphocytes # 1.0 Monocytes # 0.6 Eosinophils # 0.1 Basophils # 0.0 Nucleated Red Blood Cells # 0.1 H Sodium Level 147 H Potassium Level 4.2 Chloride Level 112 H Carbon Dioxide Level 28 Anion Gap 7 Blood Urea Nitrogen 36 H Creatinine 0.88 Est Glomerular Filtrat Rate mL/min > 60 Glucose Level 88 Calcium Level 8.5 Phosphorus Level 3.5 Magnesium Level 2.3 Medications Medication Current Medications IV Flush (NS 3 ml) 3 ml PER PROTOCOL IV ; Start 10/06/18 at 09:30 Ondansetron HCl (Zofran Inj) 4 mg Q6H PRN IV NAUSEA/VOMITING; Start 10/06/18 at 09:30 Acetaminophen (Tylenol Tab) 650 mg Q6H PRN PO .PAIN 1-3 OR TEMP Last admini stered on 10/12/18at 08:27; Admin Dose 650 MG; Start 10/06/18 at 09:30 Acetaminophen/ Hydrocodone Bitart ([place] (5/325)) 1 tab Q6H PRN PO .MOD PAIN 4- 6; Start 10/06/18 at 09:30 Morphine Sulfate (morphine) 2 mg Q4H PRN IV .SEVERE PAIN 7-10 Last administered on 10/15/18at 13:23; Admin Dose 2 MG; Start 10/06/18 at 09:30 Docusate Sodium (Colace) 100 mg Q12H PRN PO .CONSTIPATION; Start 10/06/18 at 09:30 Magnesium Hydroxide (Milk Of Mag) 30 ml DAILY PRN PO .CONSTIPATION; Start 10/06/18 at 09:30 Albuterol/ Ipratropium (Duoneb) 3 ml Q4H RESP THERAPY PRN HHN SHORTNESS OF BREATH; Start 10/06/18 at 09:30 Nitroglycerin (Nitroglycerin (Sl Tab) 0.4 Mg) 1 tab Q5M PRN SL ANGINA; Start 10/06/18 at 09:30 Bisacodyl (Dulcolax) 10 mg DAILY PRN PO CONSTIPATION; Start 10/06/18 at 09:30 Donepezil HCl (Aricept) 5 mg QHS PO Last administered on 10/15/18at 22:28; Admin Dose 5 MG; Start 10/06/18 at 21:00 Lactulose (Enulose) 20 gm TID PRN PO CONSTIPATION; Start 10/06/18 at 09:30 Levothyroxine Sodium (Synthroid) 50 mcg BEFORE BREAKFAST PO Last administered on 10/16/18at 06:53; Admin Dose 50 MCG; Start 10/07/18 at 07:00 Mineral Oil (Fleet Mineral Oil Enema) 133 ml DAILY PRN [place] CONSTIPATION; Start 10/06/18 at 09:30 Multivitamins Therapeutic (Theragran) 1 tab DAILY PO Last administered on 10/16/18 08:03; Admin Dose 1 TAB; Start 10/07/18 at 09:00 Norepinephrine 32 mg/Dextrose 250 ml @ 0.47 mls/hr TITRATE IV Last administered on 10/08/18 12:53; Admin Dose 4.69 MLS/HR; Start 10/06/18 at 11:30 Aspirin (Aspirin) 81 mg DAILY NGT Last administered on 10/11/18 09:35; Admin Dose 81 MG; Start 10/06/18 at 12:30; Status Hold Atorvastatin Calcium (Lipitor) 40 mg DAILY@21 NGT Last administered on 10/15/18 21:27; Admin Dose 40 MG; Start 10/06/18 at 21:00 Miscellaneous Information (Flu Vaccine Previously Dispensed) FLU VACCINE PREVIOU... NOTE PRN XX NOTE; Start 10/06/18 at 18:00 Meropenem/Sodium Chloride 50 ml @ 100 mls/hr Q12 IVPB Last administered on 10/16/18 08:04; Admin Dose 100 MLS/HR; Start 10/07/18 at 12:00 Midazolam HCl 50 ml @ 0 mls/hr TITRATE IV Last administered on 10/16/18 04:11; Admin Dose 1 MLS/HR; Start 10/08/18 at 10:00 Fentanyl 100 ml @ 2.5 mls/hr TITRATE IV Last administered on 10/10/18 01:01; Admin Dose 2.5 MLS/HR; Start 10/08/18 at 16:30 Amiodarone HCl (Cordarone) 200 mg BID PO Last administered on 10/16/18 08:05; Admin Dose 200 MG; Start 10/09/18 at 21:00 Famotidine (Pepcid) 20 mg DAILY NGT Last administered on 10/16/18 08:04; Admin Dose 20 MG; Start 10/10/18 at 09:00 Phenylephrine HCl 250 ml @ 75 mls/hr TITRATE IV Last administered on 10/12/18 01:38; Admin Dose 6 MLS/HR; Start 10/09/18 at 13:00 Polyethylene Glycol (Miralax) 17 gm BID PRN PO constipation; Start 10/10/18 at 22:00 Metoprolol Tartrate (Lopressor) 25 mg BID PO Last administered on 10/16/18 08:05; Admin Dose 25 MG; Start 10/12/18 at 15:00 Metoprolol Tartrate (Lopressor) 5 mg Q4H PRN IV HR>110 Hold SBP<100; Start 10/12/18 at 15:00 Enoxaparin Sodium (Lovenox) 70 mg DAILY SC Last administered on 10/16/18 08:13; Admin Dose 70 MG; Start 10/14/18 at 09:00 Levetiracetam (Keppra Liquid) 1,000 mg BID GTB Last administered on 10/16/18 08:03; Admin Dose 1,000 MG; Start 10/14/18 at 21:00 Dextrose 1,000 ml @ 75 mls/hr [id number] IV Last administered on 10/15/18 23:26; Admin Dose 75 MLS/HR; Start 10/15/18 at 10:00 Valproate Sodium (Depakene Liquid Cup) 1,000 mg Q6H GTB Last administered on 10/16/18 09:01; Admin Dose 1,000 MG; Start 10/16/18 at 09:00 Lorazepam (Ativan) 1 mg Q4H PRN IV SEIZURES Last administered on 10/16/18 12:02; Admin Dose 1 MG; Start 10/16/18 at 12:00 SHILPA DAVIS Oct 16, 2018 12:54
--- NOTE | 2018-10-16 13:21 | CONS ---
Assessment/Plan Assessment/Plan Hospital Course (Demo Recall) Remains unchanged having seizure-like activities no fevers overnight she is on pressors intubated in no distress. WBC 7.8 platelets 345 neutrophils 78 BUN is 36 creatinine 0.88 Microbiology: Blood and urine cultures grew E. coli Indwelling: Endotracheal tube NG tube Piña catheter right IJ triple-lumen catheter Allergy: Penicillin, clindamycin Antibiotics: Merrem Physical examination: Well-developed chronically ill-appearing elderly woman. The patient is in no distress. Head atraumatic normocephalic. Neck is supple. Chest rise symmetrical, breath sounds diminished bases. Heart: S1-S2, tachycardic, irregular. Abdomen soft bowel sounds hypoactive. Extremities mottled cyanotic Assessment: 1. Sepsis with shock 2. E coli bacteremia secondary to urinary tract infection 3. Acute hypoxemic respiratory failure 4. Healthcare associated pneumonia, possibly aspiration 4. Acute possibly on chronic kidney disease 5. Non-ST elevation MT 6. Atrial fibrillation status post RVR 7. Seizures Plan: Clinically unchanged, repeat blood cultures negative change meropenem to cefepime to continue for 5 more days. Consultation Date/Type/Reason Admit Date/Time Oct 06, 2018 at 09:29 Initial Consult Date 10/06/18 Type of Consult id Requesting Provider: MANUEL ALEMAN Date/Time of Note DATE: 10/16/18 TIME: 13:19 Exam/Review of Systems Exam Vitals Vital Signs Date Temp Pulse Resp B/P (MAP) Pulse Ox O2 O2 Flow FiO2 Time Delivery Rate 10/16/18 66 28 100 30 12:45 10/16/18 98.7 135/91 Mechanical 12:00 (106) Ventilator Intake and Output 10/15/18 10/15/18 10/16/18 1515:00 23:00 07:00 IntakeIntake Total 1240 ml 1290 ml 1441 ml OutputOutput Total 620 ml 625 ml 465 ml BalanceBalance 620 ml 665 ml 976 ml Results Result Diagram: 10/16/18 0449 10/16/18 0449 Results 24hrs Laboratory Tests Test 10/15/18 16:42 10/16/18 04:49 Valproic Acid (Depakene) Level 43 L 41 L White Blood Count 7.8 Red Blood Count 2.47 L Hemoglobin 7.7 L Hematocrit 23.9 L Mean Corpuscular Volume 96.8 Mean Corpuscular Hemoglobin 31.2 Mean Corpuscular Hemoglobin Concent 32.2 Red Cell Distribution Width 16.4 H Platelet Count 345 Mean Platelet Volume 11.3 H Immature Granulocytes % 0.900 H Neutrophils % 78.0 H Lymphocytes % 12.4 L Monocytes % 7.5 Eosinophils % 0.9 Basophils % 0.3 Nucleated Red Blood Cells % 0.6 H Immature Granulocytes # 0.070 H Neutrophils # 6.1 Lymphocytes # 1.0 Monocytes # 0.6 Eosinophils # 0.1 Basophils # 0.0 Nucleated Red Blood Cells # 0.1 H Sodium Level 147 H Potassium Level 4.2 Chloride Level 112 H Carbon Dioxide Level 28 Anion Gap 7 Blood Urea Nitrogen 36 H Creatinine 0.88 Est Glomerular Filtrat Rate mL/min > 60 Glucose Level 88 Calcium Level 8.5 Phosphorus Level 3.5 Magnesium Level 2.3 Medications Medication Current Medications IV Flush (NS 3 ml) 3 ml PER PROTOCOL IV ; Start 10/06/18 at 09:30 Ondansetron HCl (Zofran Inj) 4 mg Q6H PRN IV NAUSEA/VOMITING; Start 10/06/18 at 09:30 Acetaminophen (Tylenol Tab) 650 mg Q6H PRN PO .PAIN 1-3 OR TEMP Last administer ed on 10/12/18at 08:27; Admin Dose 650 MG; Start 10/06/18 at 09:30 Acetaminophen/ Hydrocodone Bitart ([place] (5/325)) 1 tab Q6H PRN PO .MOD PAIN 4- 6; Start 10/06/18 at 09:30 Morphine Sulfate (morphine) 2 mg Q4H PRN IV .SEVERE PAIN 7-10 Last administered on 10/15/18at 13:23; Admin Dose 2 MG; Start 10/06/18 at 09:30 Docusate Sodium (Colace) 100 mg Q12H PRN PO .CONSTIPATION; Start 10/06/18 at 09:30 Magnesium Hydroxide (Milk Of Mag) 30 ml DAILY PRN PO .CONSTIPATION; Start 10/06/18 at 09:30 Albuterol/ Ipratropium (Duoneb) 3 ml Q4H RESP THERAPY PRN HHN SHORTNESS OF BREATH; Start 10/06/18 at 09:30 Nitroglycerin (Nitroglycerin (Sl Tab) 0.4 Mg) 1 tab Q5M PRN SL ANGINA; Start 10/06/18 at 09:30 Bisacodyl (Dulcolax) 10 mg DAILY PRN PO CONSTIPATION; Start 10/06/18 at 09:30 Donepezil HCl (Aricept) 5 mg QHS PO Last administered on 10/15/18 22:28; Admin Dose 5 MG; Start 10/06/18 at 21:00 Lactulose (Enulose) 20 gm TID PRN PO CONSTIPATION; Start 10/06/18 at 09:30 Levothyroxine Sodium (Synthroid) 50 mcg BEFORE BREAKFAST PO Last administered on 10/16/18 06:53; Admin Dose 50 MCG; Start 10/07/18 at 07:00 Mineral Oil (Fleet Mineral Oil Enema) 133 ml DAILY PRN [place] CONSTIPATION; Start 10/06/18 at 09:30 Multivitamins Therapeutic (Theragran) 1 tab DAILY PO Last administered on 10/16/18 08:03; Admin Dose 1 TAB; Start 10/07/18 at 09:00 Norepinephrine 32 mg/Dextrose 250 ml @ 0.47 mls/hr TITRATE IV Last admi nistered on 10/08/18 12:53; Admin Dose 4.69 MLS/HR; Start 10/06/18 at 11:30 Aspirin (Aspirin) 81 mg DAILY NGT Last administered on 10/11/18 09:35; Admin Dose 81 MG; Start 10/06/18 at 12:30; Status Hold Atorvastatin Calcium (Lipitor) 40 mg DAILY@21 NGT Last administered on 10/15/18 21:27; Admin Dose 40 MG; Start 10/06/18 at 21:00 Miscellaneous Information (Flu Vaccine Previously Dispensed) FLU VACCINE PREVIOU... NOTE PRN XX NOTE; Start 10/06/18 at 18:00 Meropenem/Sodium Chloride 50 ml @ 100 mls/hr Q12 IVPB Last administered on 10/16/18 08:04; Admin Dose 100 MLS/HR; Start 10/07/18 at 12:00 Midazolam HCl 50 ml @ 0 mls/hr TITRATE IV Last administered on 10/16/18 04:11; Admin Dose 1 MLS/HR; Start 10/08/18 at 10:00 Fentanyl 100 ml @ 2.5 mls/hr TITRATE IV Last administered on 10/10/18 01:01; Admin Dose 2.5 MLS/HR; Start 10/08/18 at 16:30 Amiodarone HCl (Cordarone) 200 mg BID PO Last administered on 10/16/18 08:05; Admin Dose 200 MG; Start 10/09/18 at 21:00 Famotidine (Pepcid) 20 mg DAILY NGT Last administered on 10/16/18 08:04; Admin Dose 20 MG; Start 10/10/18 at 09:00 Phenylephrine HCl 250 ml @ 75 mls/hr TITRATE IV Last administered on 10/12/18 01:38; Admin Dose 6 MLS/HR; Start 10/09/18 at 13:00 Polyethylene Glycol (Miralax) 17 gm BID PRN PO constipation; Start 10/10/18 at 22:00 Metoprolol Tartrate (Lopressor) 25 mg BID PO Last administered on 10/16/18 08:05; Admin Dose 25 MG; Start 10/12/18 at 15:00 Metoprolol Tartrate (Lopressor) 5 mg Q4H PRN IV HR>110 Hold SBP<100; Start 10/12/18 at 15:00 Enoxaparin Sodium (Lovenox) 70 mg DAILY SC Last administered on 10/16/18 0 8:13; Admin Dose 70 MG; Start 10/14/18 at 09:00 Levetiracetam (Keppra Liquid) 1,000 mg BID GTB Last administered on 10/16/18 08:03; Admin Dose 1,000 MG; Start 10/14/18 at 21:00 Dextrose 1,000 ml @ 75 mls/hr [id number] IV Last administered on 10/15/18 23:26; Admin Dose 75 MLS/HR; Start 10/15/18 at 10:00 Valproate Sodium (Depakene Liquid Cup) 1,000 mg Q6H GTB Last administered on 10/16/18 09:01; Admin Dose 1,000 MG; Start 10/16/18 at 09:00 Lorazepam (Ativan) 1 mg Q4H PRN IV SEIZURES Last administered on 10/16/18 12:02; Admin Dose 1 MG; Start 10/16/18 at 12:00 MARKOS BRADY NP Oct 16, 2018 13:21
[2018-10-16] MEDS: DEXTROSE 5% 1,000 ML IV SCH (13:45)
--- NOTE | 2018-10-16 15:03 | CONS ---
Assessment/Plan Assessment/Plan Hospital Course 67 F c/ dementia, epilepsy, and other comorbidities, who presents for management of cardiopulmonary Sx. She was noted to have a generalized convulsion on 10/08, for which neurology is consulted... Certainly her acute illness is lowering her seizure threshold.. CTH is without acute intracranial pathology EEG is notable for severe left hemispheric on diffuse slowing 10/12: breakthrough seizure --> ativan rescue Repeat EEG, 10/14, is without evidence of nonconvulsive status. P: Cont depakote 1g qid for now Cont maintenance Keppra 1000mg bid for now Ativan iv prn prolonged seizure or cluster OK to continue asa for primary stroke prevention daily given her afib Continued medical management per primary Will follow clinically Consultation Date/Type/Reason Admit Date/Time Oct 06, 2018 at 09:29 Type of Consult Neurology Reason for Consultation seizure Requesting Provider: MANUEL ALEMAN Date/Time of Note DATE: 10/16/18 TIME: 15:03 24 HR Interval Summary Free Text/Dictation Continues icu care Exam Vital Signs Vitals Vital Signs Date Temp Pulse Resp B/P (MAP) Pulse Ox O2 O2 Flow FiO2 Time Delivery Rate 10/16/18 66 28 100 30 12:45 10/16/18 98.7 135/91 Mechanical 12:00 (106) Ventilator Intake and Output 10/15/18 10/15/18 10/16/18 1515:00 23:00 07:00 IntakeIntake Total 1240 ml 1290 ml 1441 ml OutputOutput Total 620 ml 625 ml 465 ml BalanceBalance 620 ml 665 ml 976 ml Exam PE: Gen Appearance: No Apparent Distress HEENT: Intubated Cardiovascular: Regular rate Abdomen: Soft Extremities: Dry NE: The patient was obtunded and nonverbal. Able to briefly open eyes to voice (with much prompting). Able to track. Unable to follow commands. . Cranial nerve examination was limited by mental status. Pupils were equal and reactive to light. There was no afferent pupillary defect. Funduscopic examination was limited. Face was grossly symmetric, w/ present corneal and cough reflexes. Tone was normal. Muscle bulk was normal. Twitching of her L shoulder/arm was noted. The patient withdrew all extremities. Coordination and gait testing was limited by mental status. Arm and leg reflexes were symmetric. Beck's sign was absent. Plantar responses were flexor. CHEYENNE JEAN NP Oct 16, 2018 15:03 FROYLAN WOOD Oct 16, 2018 16:05
[2018-10-16] MEDS: morphine 2 MG INJ IV PRN (15:58)
[2018-10-16] MEDS: CEFEPIME 1GM/50 ML (PMX) 50 ML IVPB SCH (22:50)
[2018-10-16] MEDS: ATORVASTATIN 40 MG TAB NGT SCH (22:55)
[2018-10-16] MEDS: DONEPEZIL 5 MG TAB PO SCH (22:55)
[2018-10-17] VITALS (37 sets, daily range): BP systolic 85–151; BP diastolic 45–105; PULSE 60–81; RESP 6–36
[2018-10-17] MEDS: DEXTROSE 5% 1,000 ML IV SCH (02:32)
[2018-10-17] MEDS: VALPROIC ACID LIQUID CUP 250 MG/5 ML CUP GTB SCH ×4 (03:30→20:57)
[2018-10-17] MEDS: LEVOTHYROXINE 50 MCG TAB PO SCH (06:24)
--- NOTE | 2018-10-17 08:56 | CONS ---
Assessment/Plan Assessment/Plan Assessment/Plan (Daily) 1. Non Oliguric Acute kidney injury due to ATN from septic shock 2. Septic shock due to UTI 3. acute UTI with Urine Cx growing E.Coli 4. Acute hypoxic respiratory failure intubated on ventilator 5. H/o HTN 6 H/o HL 7. H/o Hypothyroidism 8. Bacteremia with blood cx 2/2 growing E.Coli Plan: Na 143, BUN/Cr 28/0.84, pt remains intubated, Hb 7.4, BP stable, adequate urine output 1.3 liter in last 24 hr , will start epogen 6000 units MWF for anemia repeat EEG ordered,still awaiting MRI brain Id following , IV abx for UTI and bacteremia , Renally dose all abx and monitor electrolytes ventilator management as per Pulmonary will follow up Consultation Date/Type/Reason Admit Date/Time Oct 06, 2018 at 09:29 Initial Consult Date 10/06/18 Type of Consult NEPHROLOGY Requesting Provider: MANUEL ALEMAN Date/Time of Note DATE: 10/17/18 TIME: 08:56 Exam/Review of Systems Exam Vitals Vital Signs Date Temp Pulse Resp B/P (MAP) Pulse Ox O2 O2 Flow FiO2 Time Delivery Rate 10/17/18 61 6 99 30 05:19 10/17/18 111/65 Mechanical 03:00 (80) Ventilator 10/17/18 97.5 02:00 Intake and Output 10/16/18 10/16/18 10/17/18 1515:00 23:00 07:00 IntakeIntake Total 1140 ml 1140 ml 620 ml OutputOutput Total 670 ml 450 ml 405 ml BalanceBalance 470 ml 690 ml 215 ml Results Result Diagram: 10/17/18 0430 10/17/18 0430 Results 24hrs Laboratory Tests Test 10/17/18 04:30 White Blood Count 7.4 Red Blood Count 2.40 L Hemoglobin 7.4 L Hematocrit 23.5 L Mean Corpuscular Volume 97.9 Mean Corpuscular Hemoglobin 30.8 Mean Corpuscular Hemoglobin Concent 31.5 L Red Cell Distribution Width 15.4 H Platelet Count 364 Mean Platelet Volume 10.7 H Immature Granulocytes % 0.900 H Neutrophils % 76.6 Lymphocytes % 12.0 L Monocytes % 9.3 Eosinophils % 0.9 Basophils % 0.3 Nucleated Red Blood Cells % 0.5 H Immature Granulocytes # 0.070 H Neutrophils # 5.7 Lymphocytes # 0.9 Monocytes # 0.7 Eosinophils # 0.1 Basophils # 0.0 Nucleated Red Blood Cells # 0.0 Sodium Level 143 Potassium Level 4.0 Chloride Level 110 Carbon Dioxide Level 28 Anion Gap 5 Blood Urea Nitrogen 28 H Creatinine 0.84 Est Glomerular Filtrat Rate mL/min > 60 Glucose Level 93 Calcium Level 8.6 Phosphorus Level 3.3 Medications Medication Current Medications IV Flush (NS 3 ml) 3 ml PER PROTOCOL IV ; Start 10/06/18 at 09:30 Ondansetron HCl (Zofran Inj) 4 mg Q6H PRN IV NAUSEA/VOMITING; Start 10/06/18 at 09:30 Acetaminophen (Tylenol Tab) 650 mg Q6H PRN PO .PAIN 1-3 OR TEMP Last administered on 10/12/18at 08:27; Admin Dose 650 MG; Start 10/06/18 at 09:30 Acetaminophen/ Hydrocodone Bitart ([place] (5/325)) 1 tab Q6H PRN PO .MOD PAIN 4- 6; Start 10/06/18 at 09:30 Docusate Sodium (Colace) 100 mg Q12H PRN PO .CONSTIPATION; Start 10/06/18 at 09:30 Magnesium Hydroxide (Milk Of Mag) 30 ml DAILY PRN PO .CONSTIPATION; Start 10/06/18 at 09:30 Albuterol/ Ipratropium (Duoneb) 3 ml Q4H RESP THERAPY PRN HHN SHORTNESS OF BREATH; Start 10/06/18 at 09:30 Nitroglycerin (Nitroglycerin (Sl Tab) 0.4 Mg) 1 tab Q5M PRN SL ANGINA; Start 10/06/18 at 09:30 Bisacodyl (Dulcolax) 10 mg DAILY PRN PO CONSTIPATION; Start 10/06/18 at 09:30 Donepezil HCl (Aricept) 5 mg QHS PO Last administered on 10/16/18at 22:55; Admin Dose 5 MG; Start 10/06/18 at 21:00 Lactulose (Enulose) 20 gm TID PRN PO CONSTIPATION; Start 10/06/18 at 09:30 Levothyroxine Sodium (Synthroid) 50 mcg BEFORE BREAKFAST PO Last administered on 10/17/18at 06:24; Admin Dose 50 MCG; Start 10/07/18 at 07:00 Mineral Oil (Fleet Mineral Oil Enema) 133 ml DAILY PRN [place] CONSTIPATION; Start 10/06/18 at 09:30 Multivitamins Therapeutic (Theragran) 1 tab DAILY PO Last administered on 10/16/18 08:03; Admin Dose 1 TAB; Start 10/07/18 at 09:00 Norepinephrine 32 mg/Dextrose 250 ml @ 0.47 mls/hr TITRATE IV Last admi nistered on 10/08/18 12:53; Admin Dose 4.69 MLS/HR; Start 10/06/18 at 11:30 Aspirin (Aspirin) 81 mg DAILY NGT Last administered on 10/11/18 09:35; Admin Dose 81 MG; Start 10/06/18 at 12:30; Status Hold Atorvastatin Calcium (Lipitor) 40 mg DAILY@21 NGT Last administered on 10/16/18 22:55; Admin Dose 40 MG; Start 10/06/18 at 21:00 Miscellaneous Information (Flu Vaccine Previously Dispensed) FLU VACCINE PREVIOU... NOTE PRN XX NOTE; Start 10/06/18 at 18:00 Midazolam HCl 50 ml @ 0 mls/hr TITRATE IV Last administered on 10/16/18 04:11; Admin Dose 1 MLS/HR; Start 10/08/18 at 10:00 Fentanyl 100 ml @ 2.5 mls/hr TITRATE IV Last administered on 10/10/18 01:01; Admin Dose 2.5 MLS/HR; Start 10/08/18 at 16:30 Amiodarone HCl (Cordarone) 200 mg BID PO Last administered on 10/16/18 08:05; Admin Dose 200 MG; Start 10/09/18 at 21:00 Famotidine (Pepcid) 20 mg DAILY NGT Last administered on 10/16/18 08:04; Admin Dose 20 MG; Start 10/10/18 at 09:00 Phenylephrine HCl 250 ml @ 75 mls/hr TITRATE IV Last administered on 10/12/18 01:38; Admin Dose 6 MLS/HR; Start 10/09/18 at 13:00 Polyethylene Glycol (Miralax) 17 gm BID PRN PO constipation; Start 10/10/18 at 22:00 Metoprolol Tartrate (Lopressor) 25 mg BID PO Last administered on 10/16/18 08:05; Admin Dose 25 MG; Start 10/12/18 at 15:00 Metoprolol Tartrate (Lopressor) 5 mg Q4H PRN IV HR>110 Hold SBP<100; Start 10/12/18 at 15:00 Enoxaparin Sodium (Lovenox) 70 mg DAILY SC Last administered on 10/16/18 08:13; Admin Dose 70 MG; Start 10/14/18 at 09:00 Levetiracetam (Keppra Liquid) 1,000 mg BID GTB Last administered on 10/16/18 22:50; Admin Dose 1,000 MG; Start 10/14/18 at 21:00 Dextrose 1,000 ml @ 75 mls/hr [id number] IV Last administered on 10/17/18 02:32; Admin Dose 75 MLS/HR; Start 10/15/18 at 10:00 Valproate Sodium (Depakene Liquid Cup) 1,000 mg Q6H GTB Last administered on 10/17/18 03:30; Admin Dose 1,000 MG; Start 10/16/18 at 09:00 Lorazepam (Ativan) 1 mg Q4H PRN IV SEIZURES Last administered on 10/16/18 12:02; Admin Dose 1 MG; Start 10/16/18 at 12:00 Cefepime HCl 50 ml @ 100 mls/hr Q12 IVPB Last administered on 10/16/18 22:50; Admin Dose 100 MLS/HR; Start 10/16/18 at 21:00 Morphine Sulfate (morphine) 1 mg Q4H PRN IV .SEVERE PAIN 7-10 Last administered on 10/16/18 15:58; Admin Dose 1 MG; Start 10/16/18 at 15:45 VALARIE BENNETT MD Oct 17, 2018 08:56
--- NOTE | 2018-10-17 09:00 | CONS ---
Assessment/Plan Assessment/Plan Hospital Course (Demo Recall) IMP: 1. Nstemi- in setting of renal failure and shock. Downtrended 2.Shock-on levo 3.Tachycardia-S tach at this time 4.UTI 5.PAF with RVR-now back in SR this AM 6.Renal failure 7.Dyslipidemia 8.Sz d/o 9. Hypothyroid 10. anemia-s/p transfusions Recc: -ICU -BB as tolerated only -Follow rhythm and rate closely -Continue abx's and f/u cx data -Continue statin -now in SR on po amio. Will follow rhythm clsoely -Lovenox as tolerated only given anemia requiring transfusions Consultation Date/Type/Reason Admit Date/Time Oct 06, 2018 at 09:29 Initial Consult Date 10/06/18 Type of Consult Cardiology Reason for Consultation PAF Requesting Provider: MANUEL ALEMAN Date/Time of Note DATE: 10/17/18 TIME: 08:58 Exam/Review of Systems Vital Signs Vitals Vital Signs Date Temp Pulse Resp B/P (MAP) Pulse Ox O2 O2 Flow FiO2 Time Delivery Rate 10/17/18 61 6 99 30 05:19 10/17/18 111/65 Mechanical 03:00 (80) Ventilator 10/17/18 97.5 02:00 Intake and Output 10/16/18 10/16/18 10/17/18 1515:00 23:00 07:00 IntakeIntake Total 1140 ml 1140 ml 620 ml OutputOutput Total 670 ml 450 ml 405 ml BalanceBalance 470 ml 690 ml 215 ml Exam Exam Review of Systems: CONSTITUTIONAL: No fevers, chills. PULMONARY: intubated CARDIOVASCULAR: No chest pain/palpitations GASTROINTESTINAL: No nausea/vomiting. GENITOURINARY: No hematuria/dysuria. MUSCULOSKELETAL: No myagias/arthalgias. PSYCHIATRIC: The patient denies depression. NEUROLOGIC: No weakness Constitutional: other (sedated) Head: normocephalic ENMT: intubated Neck: supple, jvd (9 cm water) Respiratory: diminished breath sounds (at bases/B) Cardiovascular: regular rate and rhythm Gastrointestinal: soft, non-tender Musculoskeletal: muscle weakness (generalized) Extremities: edema (none) Neurological: other (No focal deficits) Labs Result Diagram: 10/17/1842910/17/18 0430 Results 24hrs Laboratory Tests Test 10/17/18 04:30 White Blood Count 7.4 Red Blood Count 2.40 L Hemoglobin 7.4 L Hematocrit 23.5 L Mean Corpuscular Volume 97.9 Mean Corpuscular Hemoglobin 30.8 Mean Corpuscular Hemoglobin Concent 31.5 L Red Cell Distribution Width 15.4 H Platelet Count 364 Mean Platelet Volume 10.7 H Immature Granulocytes % 0.900 H Neutrophils % 76.6 Lymphocytes % 12.0 L Monocytes % 9.3 Eosinophils % 0.9 Basophils % 0.3 Nucleated Red Blood Cells % 0.5 H Immature Granulocytes # 0.070 H Neutrophils # 5.7 Lymphocytes # 0.9 Monocytes # 0.7 Eosinophils # 0.1 Basophils # 0.0 Nucleated Red Blood Cells # 0.0 Sodium Level 143 Potassium Level 4.0 Chloride Level 110 Carbon Dioxide Level 28 Anion Gap 5 Blood Urea Nitrogen 28 H Creatinine 0.84 Est Glomerular Filtrat Rate mL/min > 60 Glucose Level 93 Calcium Level 8.6 Phosphorus Level 3.3 Medications Medications Current Medications IV Flush (NS 3 ml) 3 ml PER PROTOCOL IV ; Start 10/06/18 at 09:30 Ondansetron HCl (Zofran Inj) 4 mg Q6H PRN IV NAUSEA/VOMITING; Start 10/06/18 at 09:30 Acetaminophen (Tylenol Tab) 650 mg Q6H PRN PO .PAIN 1-3 OR TEMP Last administered on 10/12/18at 08:27; Admin Dose 650 MG; Start 10/06/18 at 09:30 Acetaminophen/ Hydrocodone Bitart ([place] (5/325)) 1 tab Q6H PRN PO .MOD PAIN 4- 6; Start 10/06/18 at 09:30 Docusate Sodium (Colace) 100 mg Q12H PRN PO .CONSTIPATION; Start 10/06/18 at 09:30 Magnesium Hydroxide (Milk Of Mag) 30 ml DAILY PRN PO .CONSTIPATION; Start 10/06/18 at 09:30 Albuterol/ Ipratropium (Duoneb) 3 ml Q4H RESP THERAPY PRN HHN SHORTNESS OF BREATH; Start 10/06/18 at 09:30 Nitroglycerin (Nitroglycerin (Sl Tab) 0.4 Mg) 1 tab Q5M PRN SL ANGINA; Start 10/06/18 at 09:30 Bisacodyl (Dulcolax) 10 mg DAILY PRN PO CONSTIPATION; Start 10/06/18 at 09:30 Donepezil HCl (Aricept) 5 mg QHS PO Last administered on 10/16/18 22:55; Admin Dose 5 MG; Start 10/06/18 at 21:00 Lactulose (Enulose) 20 gm TID PRN PO CONSTIPATION; Start 10/06/18 at 09:30 Levothyroxine Sodium (Synthroid) 50 mcg BEFORE BREAKFAST PO Last administered on 10/17/18 06:24; Admin Dose 50 MCG; Start 10/07/18 at 07:00 Mineral Oil (Fleet Mineral Oil Enema) 133 ml DAILY PRN [place] CONSTIPATION; Start 10/06/18 at 09:30 Multivitamins Therapeutic (Theragran) 1 tab DAILY PO Last administered on 10/16/18 08:03; Admin Dose 1 TAB; Start 10/07/18 at 09:00 Norepinephrine 32 mg/Dextrose 250 ml @ 0.47 mls/hr TITRATE IV Last administered on 10/08/18 12:53; Admin Dose 4.69 MLS/HR; Start 10/06/18 at 11:30 Aspirin (Aspirin) 81 mg DAILY NGT Last administered on 10/11/18 09:35; Admin Dose 81 MG; Start 10/06/18 at 12:30; Status Hold Atorvastatin Calcium (Lipitor) 40 mg DAILY@21 NGT Last administered on 10/16/18 22:55; Admin Dose 40 MG; Start 10/06/18 at 21:00 Miscellaneous Information (Flu Vaccine Previously Dispensed) FLU VACCINE PREVIOU... NOTE PRN XX NOTE; Start 10/06/18 at 18:00 Midazolam HCl 50 ml @ 0 mls/hr TITRATE IV Last administered on 10/16/18 04:11; Admin Dose 1 MLS/HR; Start 10/08/18 at 10:00 Fentanyl 100 ml @ 2.5 mls/hr TITRATE IV Last administered on 10/10/18 01:01; Admin Dose 2.5 MLS/HR; Start 10/08/18 at 16:30 Amiodarone HCl (Cordarone) 200 mg BID PO Last administered on 10/16/18 08:05; Admin Dose 200 MG; Start 10/09/18 at 21:00 Famotidine (Pepcid) 20 mg DAILY NGT Last administered on 10/16/18 08:04; Admin Dose 20 MG; Start 10/10/18 at 09:00 Phenylephrine HCl 250 ml @ 75 mls/hr TITRATE IV Last administered on 10/12/18 01:38; Admin Dose 6 MLS/HR; Start 10/09/18 at 13:00 Polyethylene Glycol (Miralax) 17 gm BID PRN PO constipation; Start 10/10/18 at 22:00 Metoprolol Tartrate (Lopressor) 25 mg BID PO Last administered on 10/16/18 08:05; Admin Dose 25 MG; Start 10/12/18 at 15:00 Metoprolol Tartrate (Lopressor) 5 mg Q4H PRN IV HR>110 Hold SBP<100; Start 10/12/18 at 15:00 Enoxaparin Sodium (Lovenox) 70 mg DAILY SC Last administered on 10/16/18 08:13; Admin Dose 70 MG; Start 10/14/18 at 09:00 Levetiracetam (Keppra Liquid) 1,000 mg BID GTB Last administered on 10/16/18 22:50; Admin Dose 1,000 MG; Start 10/14/18 at 21:00 Dextrose 1,000 ml @ 75 mls/hr [id number] IV Last administered on 10/17/18 02:32; Admin Dose 75 MLS/HR; Start 10/15/18 at 10:00 Valproate Sodium (Depakene Liquid Cup) 1,000 mg Q6H GTB Last administered on 10/17/18 03:30; Admin Dose 1,000 MG; Start 10/16/18 at 09:00 Lorazepam (Ativan) 1 mg Q4H PRN IV SEIZURES Last administered on 10/16/18 12:02; Admin Dose 1 MG; Start 10/16/18 at 12:00 Cefepime HCl 50 ml @ 100 mls/hr Q12 IVPB Last administered on 10/16/18 22:50; Admin Dose 100 MLS/HR; Start 10/16/18 at 21:00 Morphine Sulfate (morphine) 1 mg Q4H PRN IV .SEVERE PAIN 7-10 Last administered on 3/13/19at 15:58; Admin Dose 1 MG; Start 10/16/18 at 15:45 ANGELA CARY Oct 17, 2018 09:00
[2018-10-17] MEDS ORDERED: SOD CHLORIDE 0.45% 1,000 ML IV SCH (10:00)
--- NOTE | 2018-10-17 10:06 | PN ---
Date/Time of Note Date/Time of Note DATE: 10/17/18 TIME: 10:01 Assessment/Plan VTE Prophylaxis Risk score (from [facility] [place])>0 risk: 9 SCD applied (from [facility] [place]): Yes Pharmacological prophylaxis: other Lines/Catheters IV Catheter Type (from [facility]): Central Line Central line still needed: Yes Urinary Cath still in place: Yes Reason Cath still needed: urinary retention Assessment/Plan Hospital Course S: Patient unfortunately failed weaning trial this morning. Tolerating tube feeds, no fevers overnight. Still with some tremors, unclear if these are s eizures? O: VS -SEE BELOW PE: GENERAL: lying in bed, intubated, opens eyes HEENT: Moist mucous membranes, ET tube in place. NECK: Supple, no thyromegaly. LUNGS: Mechanical breath sounds equal bilaterally. CARDIOVASCULAR: S1, S2 heard. No rubs or gallops. ABDOMEN: Soft, nontender, nondistended. Normal bowel sounds. No rebound or guarding. MUSCULOSKELETAL: No lower extremity edema bilaterally. Assessment/Plan: 67-year-old female coming in with signs of septic shock, likely secondary to urinary tract infection and pneumonia, elevated troponins, acute renal insufficiency, now intubated on pressor support. Also presented with atrial fibrillation with rapid ventricular response, now in normal sinus rhythm. #Septic shock - ID Dr. Sanford following- Likely due to UTI- Urine cultures and Blood cultures growing E Coli x2-has been off vasopressor support for the last 3 days. -Continue current broad-spectrum antibiotics, Tylenol p.r.n. pain and fevers. -Follow-up ID recommendations, final culture results, continue IV fluids #Seizure- Morning of 10/08 had whole body twitching concerning for seizures; got Ativan then Versed. Again on 10/11 had a similar episode broken with Ativan-10/08/18 EEG appears to have localized lesion but CT head is negative. Repeat EEG from 10/15/18 results noted, neuro following. - Continue keppra, valproic acid, follow-up neurology recommendation -Holding versed, but continue Ativan as needed - Pending MRI [id number] results of this # NSTEMI - Unclear if this is true non-ST elevation myocardial infarction versus demand ischemia- s/p heparin gtt earlier this admission. - Continue high dose aspirin. - She is also on Lipitor. - Cardiology Dr. Mello consulted, follow-up their recommendations #A fib with RVR, paroxysmal- Dr. Mello following- Converted to normal sinus after getting Cardizem in ED-apparently went back in A fib later, now presently normal sinus rhythm -Monitor heart rate for now, follow cardiology recommendations -Continue p.o. beta-panda and p.o. amiodarone for now # Renal insufficiency - improving- Not anuric - Dr. Davila consulted, monitor for now # Hypothyroidism - Continue current thyroid medicines. - Low TSH, normal fT4 consistent with sick euthyroid syndrome. # History of dementia. - Continue Aricept for now. # History of high cholesterol. - Cont statin #Anemia: Unclear source, hemoglobin today 8 range after transfusion yesterday. -Monitor, follow-up occult test #Hypernatremia: Resolved now, sodium 143 today -Switch back to half-normal saline # Gastrointestinal prophylaxis- H2 panda. # Deep venous thrombosis prophylaxis - due to anemia- SCDs Dispo: Bioethics meeting to be held today to discuss CODE STATUS and further treatment of care (ie: Need for PEG and/or trach) 45 minutes critical care time spent on this patient. Result Diagram: 10/17/18 0430 10/17/18 0430 Results 24hrs Laboratory Tests Test 10/17/18 04:30 White Blood Count 7.4 Red Blood Count 2.40 L Hemoglobin 7.4 L Hematocrit 23.5 L Mean Corpuscular Volume 97.9 Mean Corpuscular Hemoglobin 30.8 Mean Corpuscular Hemoglobin Concent 31.5 L Red Cell Distribution Width 15.4 H Platelet Count 364 Mean Platelet Volume 10.7 H Immature Granulocytes % 0.900 H Neutrophils % 76.6 Lymphocytes % 12.0 L Monocytes % 9.3 Eosinophils % 0.9 Basophils % 0.3 Nucleated Red Blood Cells % 0.5 H Immature Granulocytes # 0.070 H Neutrophils # 5.7 Lymphocytes # 0.9 Monocytes # 0.7 Eosinophils # 0.1 Basophils # 0.0 Nucleated Red Blood Cells # 0.0 Sodium Level 143 Potassium Level 4.0 Chloride Level 110 Carbon Dioxide Level 28 Anion Gap 5 Blood Urea Nitrogen 28 H Creatinine 0.84 Est Glomerular Filtrat Rate mL/min > 60 Glucose Level 93 Calcium Level 8.6 Phosphorus Level 3.3 Exam/Review of Systems Exam Vitals Vital Signs Date Temp Pulse Resp B/P (MAP) Pulse Ox O2 O2 Flow FiO2 Time Delivery Rate 10/17/18 66 08:00 10/17/18 21 118/85 100 Mechanical 07:00 (96) Ventilator 10/17/18 97.6 06:00 10/17/18 30 05:19 Intake and Output 10/16/18 10/16/18 10/17/18 1515:00 23:00 07:00 IntakeIntake Total 1140 ml 1140 ml 1240 ml OutputOutput Total 670 ml 450 ml 725 ml BalanceBalance 470 ml 690 ml 515 ml Results Results 24hrs Laboratory Tests Test 10/17/18 04:30 White Blood Count 7.4 Red Blood Count 2.40 L Hemoglobin 7.4 L Hematocrit 23.5 L Mean Corpuscular Volume 97.9 Mean Corpuscular Hemoglobin 30.8 Mean Corpuscular Hemoglobin Concent 31.5 L Red Cell Distribution Width 15.4 H Platelet Count 364 Mean Platelet Volume 10.7 H Immature Granulocytes % 0.900 H Neutrophils % 76.6 Lymphocytes % 12.0 L Monocytes % 9.3 Eosinophils % 0.9 Basophils % 0.3 Nucleated Red Blood Cells % 0.5 H Immature Granulocytes # 0.070 H Neutrophils # 5.7 Lymphocytes # 0.9 Monocytes # 0.7 Eosinophils # 0.1 Basophils # 0.0 Nucleated Red Blood Cells # 0.0 Sodium Level 143 Potassium Level 4.0 Chloride Level 110 Carbon Dioxide Level 28 Anion Gap 5 Blood Urea Nitrogen 28 H Creatinine 0.84 Est Glomerular Filtrat Rate mL/min > 60 Glucose Level 93 Calcium Level 8.6 Phosphorus Level 3.3 Medications Medication Current Medications IV Flush (NS 3 ml) 3 ml PER PROTOCOL IV ; Start 10/06/18 at 09:30 Ondansetron HCl (Zofran Inj) 4 mg Q6H PRN IV NAUSEA/VOMITING; Start 10/06/18 at 09:30 Acetaminophen (Tylenol Tab) 650 mg Q6H PRN PO .PAIN 1-3 OR TEMP Last administered on 10/12/18at 08:27; Admin Dose 650 MG; Start 10/06/18 at 09:30 Acetaminophen/ Hydrocodone Bitart ([place] (5/325)) 1 tab Q6H PRN PO .MOD PAIN 4- 6; Start 10/06/18 at 09:30 Docusate Sodium (Colace) 100 mg Q12H PRN PO .CONSTIPATION; Start 10/06/18 at 09:30 Magnesium Hydroxide (Milk Of Mag) 30 ml DAILY PRN PO .CONSTIPATION; Start 10/06/18 at 09:30 Albuterol/ Ipratropium (Duoneb) 3 ml Q4H RESP THERAPY PRN HHN SHORTNESS OF BREATH; Start 10/06/18 at 09:30 Nitroglycerin (Nitroglycerin (Sl Tab) 0.4 Mg) 1 tab Q5M PRN SL ANGINA; Start 10/06/18 at 09:30 Bisacodyl (Dulcolax) 10 mg DAILY PRN PO CONSTIPATION; Start 10/06/18 at 09:30 Donepezil HCl (Aricept) 5 mg QHS PO Last administered on 10/16/18at 22:55; Admin Dose 5 MG; Start 10/06/18 at 21:00 Lactulose (Enulose) 20 gm TID PRN PO CONSTIPATION; Start 10/06/18 at 09:30 Levothyroxine Sodium (Synthroid) 50 mcg BEFORE BREAKFAST PO Last administered on 10/17/18at 06:24; Admin Dose 50 MCG; Start 10/07/18 at 07:00 Mineral Oil (Fleet Mineral Oil Enema) 133 ml DAILY PRN [place] CONSTIPATION; Start 10/06/18 at 09:30 Multivitamins Therapeutic (Theragran) 1 tab DAILY PO Last administered on 10/16/18at 08:03; Admin Dose 1 TAB; Start 10/07/18 at 09:00 Norepinephrine 32 mg/Dextrose 250 ml @ 0.47 mls/hr TITRATE IV Last administered on 10/08/18at 12:53; Admin Dose 4.69 MLS/HR; Start 10/06/18 at 11:30 Aspirin (Aspirin) 81 mg DAILY NGT Last administered on 10/11/18 09:35; Admin Dose 81 MG; Start 10/06/18 at 12:30; Status Hold Atorvastatin Calcium (Lipitor) 40 mg DAILY@21 NGT Last administered on 10/16/18at 22:55; Admin Dose 40 MG; Start 10/06/18 at 21:00 Miscellaneous Information (Flu Vaccine Previously Dispensed) FLU VACCINE PREVIOU... NOTE PRN XX NOTE; Start 10/06/18 at 18:00 Midazolam HCl 50 ml @ 0 mls/hr TITRATE IV Last administered on 10/16/18 04:11; Admin Dose 1 MLS/HR; Start 10/08/18 at 10:00 Fentanyl 100 ml @ 2.5 mls/hr TITRATE IV Last administered on 10/10/18 01:01; Admin Dose 2.5 MLS/HR; Start 10/08/18 at 16:30 Amiodarone HCl (Cordarone) 200 mg BID PO Last administered on 10/16/18 08:05; Admin Dose 200 MG; Start 10/09/18 at 21:00 Famotidine (Pepcid) 20 mg DAILY NGT Last administered on 10/16/18 08:04; Admin Dose 20 MG; Start 10/10/18 at 09:00 Phenylephrine HCl 250 ml @ 75 mls/hr TITRATE IV Last administered on 10/12/18 01:38; Admin Dose 6 MLS/HR; Start 10/09/18 at 13:00 Polyethylene Glycol (Miralax) 17 gm BID PRN PO constipation; Start 10/10/18 at 22:00 Metoprolol Tartrate (Lopressor) 25 mg BID PO Last administered on 10/16/18 08:05; Admin Dose 25 MG; Start 10/12/18 at 15:00 Metoprolol Tartrate (Lopressor) 5 mg Q4H PRN IV HR>110 Hold SBP<100; Start 10/12/18 at 15:00 Enoxaparin Sodium (Lovenox) 70 mg DAILY SC Last administered on 10/16/18 0 8:13; Admin Dose 70 MG; Start 10/14/18 at 09:00 Levetiracetam (Keppra Liquid) 1,000 mg BID GTB Last administered on 10/16/18 22:50; Admin Dose 1,000 MG; Start 10/14/18 at 21:00 Valproate Sodium (Depakene Liquid Cup) 1,000 mg Q6H GTB Last administered on 10/17/18 03:30; Admin Dose 1,000 MG; Start 10/16/18 at 09:00 Lorazepam (Ativan) 1 mg Q4H PRN IV SEIZURES Last administered on 10/16/18 12:02; Admin Dose 1 MG; Start 10/16/18 at 12:00 Cefepime HCl 50 ml @ 100 mls/hr Q12 IVPB Last administered on 10/16/18at 22:50; Admin Dose 100 MLS/HR; Start 10/16/18 at 21:00 Morphine Sulfate (morphine) 1 mg Q4H PRN IV .SEVERE PAIN 7-10 Last administered on 10/16/18at 15:58; Admin Dose 1 MG; Start 10/16/18 at 15:45 MANUEL ALEMAN Oct 17, 2018 10:06
--- NOTE | 2018-10-17 10:15 | CONS ---
Consult Date/Type/Reason Admit Date/Time Oct 06, 2018 at 09:29 Initial Consult Date 10/06/18 Type of Consult Pulmonary Requesting Provider: MANUEL ALEMAN Date/Time of Note DATE: 10/17/18 TIME: 10:14 Subjective Patient more alert this morning. Opens eyes and tracks but not following commands. Objective Vital Signs Date Temp Pulse Resp B/P (MAP) Pulse Ox O2 O2 Flow FiO2 Time Delivery Rate 10/17/18 66 08:00 10/17/18 21 118/85 100 Mechanical 07:00 (96) Ventilator 10/17/18 97.6 06:00 10/17/18 30 05:19 Intake and Output 10/16/18 10/16/18 10/17/18 1515:00 23:00 07:00 IntakeIntake Total 1140 ml 1140 ml 1240 ml OutputOutput Total 670 ml 450 ml 725 ml BalanceBalance 470 ml 690 ml 515 ml Exam Elderly lady orally intubated on mechanical ventilation VITAL SIGNS: per chart NECK: Supple. No JVD or lymphadenopathy. CARDIAC EXAM: S1, S2. No added sounds or murmurs. CHEST: Diminished air entry bilaterally ABDOMEN: Soft, nontender. No guarding or rebound. EXTREMITIES: No cyanosis, clubbing or edema. NEUROLOGIC: Generalized weakness. No focal deficits. Vent Setting Ventilator Support Mode: AC Fraction of Inspired Oxygen pe: 30 Positive End Expiratory Pressu: 5.0 Results/Medications Result Diagram: 10/17/18 0430 10/17/18 0430 Results 24 hrs Laboratory Tests Test 10/17/18 04:30 White Blood Count 7.4 Red Blood Count 2.40 L Hemoglobin 7.4 L Hematocrit 23.5 L Mean Corpuscular Volume 97.9 Mean Corpuscular Hemoglobin 30.8 Mean Corpuscular Hemoglobin Concent 31.5 L Red Cell Distribution Width 15.4 H Platelet Count 364 Mean Platelet Volume 10.7 H Immature Granulocytes % 0.900 H Neutrophils % 76.6 Lymphocytes % 12.0 L Monocytes % 9.3 Eosinophils % 0.9 Basophils % 0.3 Nucleated Red Blood Cells % 0.5 H Immature Granulocytes # 0.070 H Neutrophils # 5.7 Lymphocytes # 0.9 Monocytes # 0.7 Eosinophils # 0.1 Basophils # 0.0 Nucleated Red Blood Cells # 0.0 Sodium Level 143 Potassium Level 4.0 Chloride Level 110 Carbon Dioxide Level 28 Anion Gap 5 Blood Urea Nitrogen 28 H Creatinine 0.84 Est Glomerular Filtrat Rate mL/min > 60 Glucose Level 93 Calcium Level 8.6 Phosphorus Level 3.3 Medications Current Medications IV Flush (NS 3 ml) 3 ml PER PROTOCOL IV ; Start 10/06/18 at 09:30 Ondansetron HCl (Zofran Inj) 4 mg Q6H PRN IV NAUSEA/VOMITING; Start 10/06/18 at 09:30 Acetaminophen (Tylenol Tab) 650 mg Q6H PRN PO .PAIN 1-3 OR TEMP Last administered on 10/12/18at 08:27; Admin Dose 650 MG; Start 10/06/18 at 09:30 Acetaminophen/ Hydrocodone Bitart ([place] (5/325)) 1 tab Q6H PRN PO .MOD PAIN 4- 6; Start 10/06/18 at 09:30 Docusate Sodium (Colace) 100 mg Q12H PRN PO .CONSTIPATION; Start 10/06/18 at 09:30 Magnesium Hydroxide (Milk Of Mag) 30 ml DAILY PRN PO .CONSTIPATION; Start 10/06/18 at 09:30 Albuterol/ Ipratropium (Duoneb) 3 ml Q4H RESP THERAPY PRN HHN SHORTNESS OF BREATH; Start 10/06/18 at 09:30 Nitroglycerin (Nitroglycerin (Sl Tab) 0.4 Mg) 1 tab Q5M PRN SL ANGINA; Start 10/06/18 at 09:30 Bisacodyl (Dulcolax) 10 mg DAILY PRN PO CONSTIPATION; Start 10/06/18 at 09:30 Donepezil HCl (Aricept) 5 mg QHS PO Last administered on 10/16/18at 22:55; Admin Dose 5 MG; Start 10/06/18 at 21:00 Lactulose (Enulose) 20 gm TID PRN PO CONSTIPATION; Start 10/06/18 at 09:30 Levothyroxine Sodium (Synthroid) 50 mcg BEFORE BREAKFAST PO Last administered on 10/17/18at 06:24; Admin Dose 50 MCG; Start 10/07/18 at 07:00 Mineral Oil (Fleet Mineral Oil Enema) 133 ml DAILY PRN [place] CONSTIPATION; Start 10/06/18 at 09:30 Multivitamins Therapeutic (Theragran) 1 tab DAILY PO Last administered on 10/16/18 08:03; Admin Dose 1 TAB; Start 10/07/18 at 09:00 Norepinephrine 32 mg/Dextrose 250 ml @ 0.47 mls/hr TITRATE IV Last administered on 10/08/18 12:53; Admin Dose 4.69 MLS/HR; Start 10/06/18 at 11:30 Aspirin (Aspirin) 81 mg DAILY NGT Last administered on 10/11/18 09:35; Admin Dose 81 MG; Start 10/06/18 at 12:30; Status Hold Atorvastatin Calcium (Lipitor) 40 mg DAILY@21 NGT Last administered on 10/16/18 22:55; Admin Dose 40 MG; Start 10/06/18 at 21:00 Miscellaneous Information (Flu Vaccine Previously Dispensed) FLU VACCINE [place] EVIOU... NOTE PRN XX NOTE; Start 10/06/18 at 18:00 Midazolam HCl 50 ml @ 0 mls/hr TITRATE IV Last administered on 10/16/18 04:11; Admin Dose 1 MLS/HR; Start 10/08/18 at 10:00 Fentanyl 100 ml @ 2.5 mls/hr TITRATE IV Last administered on 10/10/18 01:01; Admin Dose 2.5 MLS/HR; Start 10/08/18 at 16:30 Amiodarone HCl (Cordarone) 200 mg BID PO Last administered on 10/16/18 08:05; Admin Dose 200 MG; Start 10/09/18 at 21:00 Famotidine (Pepcid) 20 mg DAILY NGT Last administered on 10/16/18 08:04; Admin Dose 20 MG; Start 10/10/18 at 09:00 Phenylephrine HCl 250 ml @ 75 mls/hr TITRATE IV Last administered on 10/12/18 01:38; Admin Dose 6 MLS/HR; Start 10/09/18 at 13:00 Polyethylene Glycol (Miralax) 17 gm BID PRN PO constipation; Start 10/10/18 at 22:00 Metoprolol Tartrate (Lopressor) 25 mg BID PO Last administered on 10/16/18 08:05; Admin Dose 25 MG; Start 10/12/18 at 15:00 Metoprolol Tartrate (Lopressor) 5 mg Q4H PRN IV HR>110 Hold SBP<100; Start 10/12/18 at 15:00 Enoxaparin Sodium (Lovenox) 70 mg DAILY SC Last administered on 10/16/18 08:13; Admin Dose 70 MG; Start 10/14/18 at 09:00 Levetiracetam (Keppra Liquid) 1,000 mg BID GTB Last administered on 10/16/18 22:50; Admin Dose 1,000 MG; Start 10/14/18 at 21:00 Valproate Sodium (Depakene Liquid Cup) 1,000 mg Q6H GTB Last administered on 10/17/18 03:30; Admin Dose 1,000 MG; Start 10/16/18 at 09:00 Lorazepam (Ativan) 1 mg Q4H PRN IV SEIZURES Last administered on 10/16/18 12:02; Admin Dose 1 MG; Start 10/16/18 at 12:00 Cefepime HCl 50 ml @ 100 mls/hr Q12 IVPB Last administered on 10/16/18 22:50; Admin Dose 100 MLS/HR; Start 10/16/18 at 21:00 Morphine Sulfate (morphine) 1 mg Q4H PRN IV .SEVERE PAIN 7-10 Last administered on 10/16/18 15:58; Admin Dose 1 MG; Start 10/16/18 at 15:45 Sodium Chloride 1,000 ml @ 75 mls/hr [id number] IV ; Start 10/17/18 at 10:00; Status UNV Assessment/Plan Hospital Course (Demo Recall) IMP: 1. Status post septic Shock: likely due to urinary tract infection 2. Respiratory Failure 2/2 #1 3. UMBERTO-- pre-renal vs. ATN 2/2 #1 4. NSTEMI: type II 5. Afib with RVR--now in SR 6. Hypothyroidism 7. Encephalopathy appears to be resolving with underlying dementia.. 8. Anemia likely dilutional with chronic disease currently no active bleeding RECS: 1. Continue mechanical ventilation CPAP trial this morning. 2. Continue tube feeding as tolerated 3. Continue antibiotics, currently off vasopressors, currently improved 4. Renal recommendations regarding renal insufficiency metabolic acidosis improved. 5. Neuro recommendations regarding encephalopathy 6. Hold off on PRBC transfusion at present currently hemodynamically stable Continue current supportive care critical care time 40 minutes prognosis is guarded Bioethics meeting today PETER ARAUZ MD, [facility] Oct 17, 2018 10:15
[2018-10-17] MEDS: CEFEPIME 1GM/50 ML (PMX) 50 ML IVPB SCH ×2 (10:31→20:57)
[2018-10-17] MEDS: MULTIVITAMINS THERAPEUTIC TAB PO SCH (10:32)
[2018-10-17] MEDS: FAMOTIDINE 20 MG TAB NGT SCH (10:32)
[2018-10-17] MEDS: METOPROLOL 25 MG TAB PO SCH ×2 (10:32→20:59)
[2018-10-17] MEDS: AMIODARONE 200 MG TAB PO SCH ×2 (10:32→20:58)
[2018-10-17] MEDS: LEVETIRACETAM (100 MG/ML) 5ML CUP GTB SCH ×2 (10:33→20:58)
[2018-10-17] MEDS: BALSAM PERU/CASTOR OIL 60 GM TUBE TOP SCH (10:34)
[2018-10-17] MEDS: ENOXAPARIN 100 MG/ML SYG SC SCH (10:36)
--- NOTE | 2018-10-17 14:39 | CONS ---
Assessment/Plan Assessment/Plan Hospital Course 67 F c/ dementia, epilepsy, and other comorbidities, who presents for management of cardiopulmonary Sx. She was noted to have a generalized convulsion on 10/08, for which neurology is consulted... Certainly her acute illness is lowering her seizure threshold.. CTH is without acute intracranial pathology EEG is notable for severe left hemispheric on diffuse slowing 10/12: breakthrough seizure --> ativan rescue Repeat EEG, 10/14, is without evidence of nonconvulsive status. P: Cont depakote 1g qid for now Cont maintenance Keppra 1000mg bid for now Ativan iv prn prolonged seizure or cluster OK to continue asa for primary stroke prevention daily given her afib Continued medical management per primary Will follow clinically Consultation Date/Type/Reason Admit Date/Time Oct 06, 2018 at 09:29 Type of Consult Neurology Reason for Consultation seizure Requesting Provider: MANUEL ALEMAN Date/Time of Note DATE: 10/17/18 TIME: 14:38 24 HR Interval Summary Free Text/Dictation Continues critical care. Exam Vital Signs Vitals Vital Signs Date Temp Pulse Resp B/P (MAP) Pulse Ox O2 O2 Flow FiO2 Time Delivery Rate 10/17/18 66 18 102/64 100 Mechanical 13:00 (77) Ventilator 10/17/18 98.9 12:01 10/17/18 30 11:18 Intake and Output 10/16/18 10/16/18 10/17/18 1515:00 23:00 07:00 IntakeIntake Total 1140 ml 1140 ml 1240 ml OutputOutput Total 670 ml 450 ml 725 ml BalanceBalance 470 ml 690 ml 515 ml Exam PE: Gen Appearance: No Apparent Distress HEENT: Intubated Cardiovascular: Regular rate Abdomen: Soft Extremities: Dry NE: The patient was obtunded and nonverbal. Able to briefly open eyes to voice (with much prompting). Able to track. Unable to follow commands. . Cranial nerve examination was limited by mental status. Pupils were equal and reactive to light. There was no afferent pupillary defect. Funduscopic examination was limited. Face was grossly symmetric, w/ present corneal and cough reflexes. Tone was normal. Muscle bulk was normal. Twitching of her L shoulder/arm was noted. The patient withdrew all extremities. Coordination and gait testing was limited by mental status. Arm and leg reflexes were symmetric. Beck's sign was absent. Plantar re sponses were flexor. CHEYENNE JEAN NP Oct 17, 2018 14:39
--- NOTE | 2018-10-17 15:40 | CONS ---
Assessment/Plan Assessment/Plan Hospital Course (Demo Recall) No acute changes overnight. Patient is in no distress afebrile looks comfortable WBC today 7.4 no shift no bands BUN 28 creatinine 0.84 Microbiology: Blood and urine cultures grew E. coli Indwelling: Endotracheal tube NG tube Piña catheter right IJ triple-lumen catheter Allergy: Penicillin, clindamycin Antibiotics: Cefepime Physical examination: Well-developed chronically ill-appearing elderly woman. The patient is in no distress. Head atraumatic normocephalic. Neck is supple. Chest rise symmetrical, breath sounds diminished bases. Heart: S1-S2, tachycardic, irregular. Abdomen soft bowel sounds hypoactive. Extremities mottled cyanotic Assessment: 1. Sepsis with shock 2. E coli bacteremia secondary to urinary tract infection 3. Acute hypoxemic respiratory failure 4. Healthcare associated pneumonia, possibly aspiration 4. Acute possibly on chronic kidney disease 5. Non-ST elevation HI 6. Atrial fibrillation status post RVR 7. Seizures Plan: Patient remains stable, continue antibiotics for 4 more days Consultation Date/Type/Reason Admit Date/Time Oct 06, 2018 at 09:29 Initial Consult Date 10/06/18 Type of Consult id Requesting Provider: MANUEL ALEMAN Date/Time of Note DATE: 10/17/18 TIME: 15:39 Exam/Review of Systems Exam Vitals Vital Signs Date Temp Pulse Resp B/P (MAP) Pulse Ox O2 O2 Flow FiO2 Time Delivery Rate 10/17/18 66 18 102/64 100 Mechanical 13:00 (77) Ventilator 10/17/18 98.9 12:01 10/17/18 30 11:18 Intake and Output 10/16/18 10/16/18 10/17/18 1414:59 22:59 06:59 IntakeIntake Total 1140 ml 1140 ml 1240 ml OutputOutput Total 640 ml 525 ml 725 ml BalanceBalance 500 ml 615 ml 515 ml Results Result Diagram: 10/17/1842910/17/18 043 Results 24hrs Laboratory Tests Test 10/17/18 04:30 White Blood Count 7.4 Red Blood Count 2.40 L Hemoglobin 7.4 L Hematocrit 23.5 L Mean Corpuscular Volume 97.9 Mean Corpuscular Hemoglobin 30.8 Mean Corpuscular Hemoglobin Concent 31.5 L Red Cell Distribution Width 15.4 H Platelet Count 364 Mean Platelet Volume 10.7 H Immature Granulocytes % 0.900 H Neutrophils % 76.6 Lymphocytes % 12.0 L Monocytes % 9.3 Eosinophils % 0.9 Basophils % 0.3 Nucleated Red Blood Cells % 0.5 H Immature Granulocytes # 0.070 H Neutrophils # 5.7 Lymphocytes # 0.9 Monocytes # 0.7 Eosinophils # 0.1 Basophils # 0.0 Nucleated Red Blood Cells # 0.0 Sodium Level 143 Potassium Level 4.0 Chloride Level 110 Carbon Dioxide Level 28 Anion Gap 5 Blood Urea Nitrogen 28 H Creatinine 0.84 Est Glomerular Filtrat Rate mL/min > 60 Glucose Level 93 Calcium Level 8.6 Phosphorus Level 3.3 Medications Medication Current Medications IV Flush (NS 3 ml) 3 ml PER PROTOCOL IV ; Start 10/06/18 at 09:30 Ondansetron HCl (Zofran Inj) 4 mg Q6H PRN IV NAUSEA/VOMITING; Start 10/06/18 at 09:30 Acetaminophen (Tylenol Tab) 650 mg Q6H PRN PO .PAIN 1-3 OR TEMP Last ad ministered on 10/12/18at 08:27; Admin Dose 650 MG; Start 10/06/18 at 09:30 Acetaminophen/ Hydrocodone Bitart ([place] (5/325)) 1 tab Q6H PRN PO .MOD PAIN 4- 6; Start 10/06/18 at 09:30 Docusate Sodium (Colace) 100 mg Q12H PRN PO .CONSTIPATION; Start 10/06/18 at 09:30 Magnesium Hydroxide (Milk Of Mag) 30 ml DAILY PRN PO .CONSTIPATION; Start 10/06/18 at 09:30 Albuterol/ Ipratropium (Duoneb) 3 ml Q4H RESP THERAPY PRN HHN SHORTNESS OF BREATH; Start 10/06/18 at 09:30 Nitroglycerin (Nitroglycerin (Sl Tab) 0.4 Mg) 1 tab Q5M PRN SL ANGINA; Start 10/06/18 at 09:30 Bisacodyl (Dulcolax) 10 mg DAILY PRN PO CONSTIPATION; Start 10/06/18 at 09:30 Donepezil HCl (Aricept) 5 mg QHS PO Last administered on 10/16/18at 22:55; Admin Dose 5 MG; Start 10/06/18 at 21:00 Lactulose (Enulose) 20 gm TID PRN PO CONSTIPATION; Start 10/06/18 at 09:30 Levothyroxine Sodium (Synthroid) 50 mcg BEFORE BREAKFAST PO Last administered on 10/17/18 06:24; Admin Dose 50 MCG; Start 10/07/18 at 07:00 Mineral Oil (Fleet Mineral Oil Enema) 133 ml DAILY PRN [place] CONSTIPATION; Start 10/06/18 at 09:30 Multivitamins Therapeutic (Theragran) 1 tab DAILY PO Last administered on 10/17/18 10:32; Admin Dose 1 TAB; Start 10/07/18 at 09:00 Norepinephrine 32 mg/Dextrose 250 ml @ 0.47 mls/hr TITRATE IV Last administered on 10/08/18 12:53; Admin Dose 4.69 MLS/HR; Start 10/06/18 at 11:30 Aspirin (Aspirin) 81 mg DAILY NGT Last administered on 10/11/18 09:35; Admin Dose 81 MG; Start 10/06/18 at 12:30; Status Hold Atorvastatin Calcium (Lipitor) 40 mg DAILY@21 NGT Last administered on 10/16/18 22:55; Admin Dose 40 MG; Start 10/06/18 at 21:00 Miscellaneous Information (Flu Vaccine Previously Dispensed) FLU VACCINE PREVIOU... NOTE PRN XX NOTE; Start 10/06/18 at 18:00 Midazolam HCl 50 ml @ 0 mls/hr TITRATE IV Last administered on 10/16/18 04:11; Admin Dose 1 MLS/HR; Start 10/08/18 at 10:00 Fentanyl 100 ml @ 2.5 mls/hr TITRATE IV Last administered on 10/10/18 01:01; Admin Dose 2.5 MLS/HR; Start 10/08/18 at 16:30 Amiodarone HCl (Cordarone) 200 mg BID PO Last administered on 10/17/18 10:32; Admin Dose 200 MG; Start 10/09/18 at 21:00 Famotidine (Pepcid) 20 mg DAILY NGT Last administered on 10/17/18 10:32; Admin Dose 20 MG; Start 10/10/18 at 09:00 Phenylephrine HCl 250 ml @ 75 mls/hr TITRATE IV Last administered on 10/12/18 01:38; Admin Dose 6 MLS/HR; Start 10/09/18 at 13:00 Polyethylene Glycol (Miralax) 17 gm BID PRN PO constipation; Start 10/10/18 at 22:00 Metoprolol Tartrate (Lopressor) 25 mg BID PO Last administered on 10/17/18 10:32; Admin Dose 25 MG; Start 10/12/18 at 15:00 Metoprolol Tartrate (Lopressor) 5 mg Q4H PRN IV HR>110 Hold SBP<100; Start 10/12/18 at 15:00 Enoxaparin Sodium (Lovenox) 70 mg DAILY SC Last administered on 10/17/18 10:36; Admin Dose 70 MG; Start 10/14/18 at 09:00 Levetiracetam (Keppra Liquid) 1,000 mg BID GTB Last administered on 10/17/18 10:33; Admin Dose 1,000 MG; Start 10/14/18 at 21:00 Valproate Sodium (Depakene Liquid Cup) 1,000 mg Q6H GTB Last administered on 10/17/18 15:08; Admin Dose 1,000 MG; Start 10/16/18 at 09:00 Lorazepam (Ativan) 1 mg Q4H PRN IV SEIZURES Last administered on 10/16/18 12:02; Admin Dose 1 MG; Start 10/16/18 at 12:00 Cefepime HCl 50 ml @ 100 mls/hr Q12 IVPB Last administered on 10/17/18 10:31; Admin Dose 100 MLS/HR; Start 10/16/18 at 21:00 Morphine Sulfate (morphine) 1 mg Q4H PRN IV .SEVERE PAIN 7-10 Last administered on 10/16/18 15:58; Admin Dose 1 MG; Start 10/16/18 at 15:45 Sodium Chloride 1,000 ml @ 75 mls/hr [id number] IV Last administered on 10/17/18 11:01; Admin Dose 75 MLS/HR; Start 10/17/18 at 10:00 MARKOS BRADY NP Oct 17, 2018 15:40
[2018-10-17] MEDS: ATORVASTATIN 40 MG TAB NGT SCH (20:58)
[2018-10-17] MEDS: DONEPEZIL 5 MG TAB PO SCH (20:59)
[2018-10-18] VITALS (28 sets, daily range): BP systolic 97–162; BP diastolic 53–117; PULSE 59–84; RESP 11–29
[2018-10-18] MEDS: VALPROIC ACID LIQUID CUP 250 MG/5 ML CUP GTB SCH ×4 (02:27→20:38)
[2018-10-18] MEDS: LEVOTHYROXINE 50 MCG TAB PO SCH (05:40)
--- NOTE | 2018-10-18 07:14 | CONS ---
Assessment/Plan Assessment/Plan Assessment/Plan (Daily) Viewed bioethics consultation on October 17, 2018. Decision is to continue with trials of weaning patient from the ventilator. She is off pressors at this time mental status seems to be improved slightly however this is day 12 intubated. Saturations are adequate, plan is outlined above she will be reassessed in the event the patient is non-asked debatable in a period of time which is deemed jacob ropriate by pulmonary medicine. Consultation Date/Type/Reason Admit Date/Time Oct 06, 2018 at 09:29 Initial Consult Date 10/06/18 Requesting Provider: MANUEL ALEMAN Date/Time of Note DATE: 10/18/18 TIME: 07:12 Exam/Review of Systems Exam Vitals Vital Signs Date Temp Pulse Resp B/P (MAP) Pulse Ox O2 O2 Flow FiO2 Time Delivery Rate 10/18/18 72 22 140/74 100 Mechanical 06:00 (96) Ventilator 10/18/18 30 05:30 10/18/18 98.5 04:00 Intake and Output 10/17/18 10/17/18 10/18/18 1515:00 23:00 07:00 IntakeIntake Total 1230 ml 965 ml 585 ml OutputOutput Total 575 ml 430 ml 440 ml BalanceBalance 655 ml 535 ml 145 ml Results Result Diagram: 10/18/18 0315 10/18/18 0315 Results 24hrs Laboratory Tests Test 10/18/18 03:15 White Blood Count 7.1 Red Blood Count 2.50 L Hemoglobin 7.9 L Hematocrit 24.3 L Mean Corpuscular Volume 97.2 Mean Corpuscular Hemoglobin 31.6 Mean Corpuscular Hemoglobin Concent 32.5 Red Cell Distribution Width 15.0 H Platelet Count 388 Mean Platelet Volume 11.2 H Immature Granulocytes % 0.800 H Neutrophils % 72.5 Lymphocytes % 16.6 Monocytes % 8.9 Eosinophils % 0.8 Basophils % 0.4 Nucleated Red Blood Cells % 0.0 Immature Granulocytes # 0.060 H Neutrophils # 5.1 Lymphocytes # 1.2 Monocytes # 0.6 Eosinophils # 0.1 Basophils # 0.0 Nucleated Red Blood Cells # 0.0 Sodium Level 142 Potassium Level 4.2 Chloride Level 110 Carbon Dioxide Level 25 Anion Gap 7 Blood Urea Nitrogen 24 H Creatinine 0.81 Est Glomerular Filtrat Rate mL/min > 60 Glucose Level 109 Calcium Level 8.7 Medications Medication Current Medications IV Flush (NS 3 ml) 3 ml PER PROTOCOL IV ; Start 10/06/18 at 09:30 Ondansetron HCl (Zofran Inj) 4 mg Q6H PRN IV NAUSEA/VOMITING; Start 10/06/18 at 09:30 Acetaminophen (Tylenol Tab) 650 mg Q6H PRN PO .PAIN 1-3 OR TEMP Last administered on 10/12/18at 08:27; Admin Dose 650 MG; Start 10/06/18 at 09:30 Acetaminophen/ Hydrocodone Bitart ([place] (5/325)) 1 tab Q6H PRN PO .MOD PAIN 4- 6; Start 10/06/18 at 09:30 Docusate Sodium (Colace) 100 mg Q12H PRN PO .CONSTIPATION; Start 10/06/18 at 09:30 Magnesium Hydroxide (Milk Of Mag) 30 ml DAILY PRN PO .CONSTIPATION; Start 10/06/18 at 09:30 Albuterol/ Ipratropium (Duoneb) 3 ml Q4H RESP THERAPY PRN HHN SHORTNESS OF BREATH; Start 10/06/18 at 09:30 Nitroglycerin (Nitroglycerin (Sl Tab) 0.4 Mg) 1 tab Q5M PRN SL ANGINA; Start 10/06/18 at 09:30 Bisacodyl (Dulcolax) 10 mg DAILY PRN PO CONSTIPATION; Start 10/06/18 at 09:30 Donepezil HCl (Aricept) 5 mg QHS PO Last administered on 10/17/18at 20:59; Admin Dose 5 MG; Start 10/06/18 at 21:00 Lactulose (Enulose) 20 gm TID PRN PO CONSTIPATION; Start 10/06/18 at 09:30 Levothyroxine Sodium (Synthroid) 50 mcg BEFORE BREAKFAST PO Last administered on 10/18/18at 05:40; Admin Dose 50 MCG; Start 10/07/18 at 07:00 Mineral Oil (Fleet Mineral Oil Enema) 133 ml DAILY PRN [place] CONSTIPATION; Start 10/06/18 at 09:30 Multivitamins Therapeutic (Theragran) 1 tab DAILY PO Last administered on 10/17/18at 10:32; Admin Dose 1 TAB; Start 10/07/18 at 09:00 Norepinephrine 32 mg/Dextrose 250 ml @ 0.47 mls/hr TITRATE IV Last administered on 10/08/18 12:53; Admin Dose 4.69 MLS/HR; Start 10/06/18 at 11:30 Aspirin (Aspirin) 81 mg DAILY NGT Last administered on 10/11/18 09:35; Admin Dose 81 MG; Start 10/06/18 at 12:30; Status Hold Atorvastatin Calcium (Lipitor) 40 mg DAILY@21 NGT Last administered on 10/17/18 20:58; Admin Dose 40 MG; Start 10/06/18 at 21:00 Miscellaneous Information (Flu Vaccine Previously Dispensed) FLU VACCINE PREVIOU... NOTE PRN XX NOTE; Start 10/06/18 at 18:00 Midazolam HCl 50 ml @ 0 mls/hr TITRATE IV Last administered on 10/16/18 04:11; Admin Dose 1 MLS/HR; Start 10/08/18 at 10:00 Fentanyl 100 ml @ 2.5 mls/hr TITRATE IV Last administered on 10/10/18 01:01; Admin Dose 2.5 MLS/HR; Start 10/08/18 at 16:30 Amiodarone HCl (Cordarone) 200 mg BID PO Last administered on 10/17/18 20:58; Admin Dose 200 MG; Start 10/09/18 at 21:00 Famotidine (Pepcid) 20 mg DAILY NGT Last administered on 10/17/18 10:32; Admin Dose 20 MG; Start 10/10/18 at 09:00 Phenylephrine HCl 250 ml @ 75 mls/hr TITRATE IV Last administered on 10/12/18 01:38; Admin Dose 6 MLS/HR; Start 10/09/18 at 13:00 Polyethylene Glycol (Miralax) 17 gm BID PRN PO constipation; Start 10/10/18 at 22:00 Metoprolol Tartrate (Lopressor) 25 mg BID PO Last administered on 10/17/18 20:59; Admin Dose 25 MG; Start 10/12/18 at 15:00 Metoprolol Tartrate (Lopressor) 5 mg Q4H PRN IV HR>110 Hold SBP<100; Start 10/12/18 at 15:00 Enoxaparin Sodium (Lovenox) 70 mg DAILY SC Last administered on 10/17/18 10:36; Admin Dose 70 MG; Start 10/14/18 at 09:00 Levetiracetam (Keppra Liquid) 1,000 mg BID GTB Last administered on 10/17/18 20:58; Admin Dose 1,000 MG; Start 10/14/18 at 21:00 Valproate Sodium (Depakene Liquid Cup) 1,000 mg Q6H GTB Last administered on 10/18/18 02:27; Admin Dose 1,000 MG; Start 10/16/18 at 09:00 Lorazepam (Ativan) 1 mg Q4H PRN IV SEIZURES Last administered on 10/16/18 12:02; Admin Dose 1 MG; Start 10/16/18 at 12:00 Cefepime HCl 50 ml @ 100 mls/hr Q12 IVPB Last administered on 10/17/18 20:57; Admin Dose 100 MLS/HR; Start 10/16/18 at 21:00 Morphine Sulfate (morphine) 1 mg Q4H PRN IV .SEVERE PAIN 7-10 Last administered on 10/16/18 15:58; Admin Dose 1 MG; Start 10/16/18 at 15:45 Epoetin Nile (Epogen (Non Esrd/Non Oncology)) 6,000 units MoWeFr@17 SC ; Start 10/18/18 at 17:00 SHILPA DAVIS Oct 18, 2018 07:14
[2018-10-18] MEDS: LEVETIRACETAM (100 MG/ML) 5ML CUP GTB SCH ×2 (08:46→20:43)
[2018-10-18] MEDS: FAMOTIDINE 20 MG TAB NGT SCH (08:47)
[2018-10-18] MEDS: AMIODARONE 200 MG TAB PO SCH ×2 (08:47→20:40)
[2018-10-18] MEDS: METOPROLOL 25 MG TAB PO SCH ×2 (08:47→20:40)
[2018-10-18] MEDS: MULTIVITAMINS THERAPEUTIC TAB PO SCH (08:48)
[2018-10-18] MEDS: CEFEPIME 1GM/50 ML (PMX) 50 ML IVPB SCH ×2 (08:49→20:37)
[2018-10-18] MEDS: BALSAM PERU/CASTOR OIL 60 GM TUBE TOP SCH (08:50)
[2018-10-18] MEDS: ENOXAPARIN 100 MG/ML SYG SC SCH (08:59)
--- NOTE | 2018-10-18 10:00 | PN ---
Date/Time of Note Date/Time of Note DATE: 10/18/18 TIME: 09:51 Assessment/Plan VTE Prophylaxis Risk score (from Ns)>0 risk: 11 SCD applied (from Ns): Yes Pharmacological prophylaxis: other Lines/Catheters IV C[facility]ter Type (from [facility]): Central Line Central line still needed: Yes Urinary Cath still in place: Yes Reason Cath still needed: urinary retention Assessment/Plan Hospital Course S: Patient unfortunately failed weaning trial this morning. Tolerating tube feeds, no fevers overnight. Still with some tremors, unclear if these are seizures? O: VS -SEE BELOW PE: GENERAL: lying in bed, intubated, opens eyes HEENT: Moist mucous membranes, ET tube in place. NECK: Supple, no thyromegaly. LUNGS: Mechanical breath sounds equal bilaterally. CARDIOVASCULAR: S1, S2 heard. No rubs or gallops. ABDOMEN: Soft, nontender, nondistended. Normal bowel sounds. No rebound or guarding. MUSCULOSKELETAL: No lower extremity edema bilaterally. Assessment/Plan: 67-year-old female coming in with signs of septic shock, likely secondary to urinary tract infection and pneumonia, elevated troponins, acute renal insufficiency, now intubated on pressor support. Also presented with atrial fibrillation with rapid ventricular response, now in normal sinus rhythm. #Septic shock and respiratory failure- ID Dr. Sanford following- Likely due to UTI- Urine cultures and Blood cultures growing E Coli x2-has been off vaso pressor support for the last 4 days. However patient has failed weaning trials the last 2 days despite attempts at this. -Continue current broad-spectrum antibiotics, Tylenol p.r.n. pain and fevers. -Follow-up ID recommendations, final culture results, continue IV fluids -Follow pulmonary recommendations, particularly regarding any further discussion about trach and/or PEG placement. #Seizure- Morning of 10/08 had whole body twitching concerning for seizures; got Ativan then Versed. Again on 10/11 had a similar episode broken with Ativan-10/08/18 EEG appears to have localized lesion but CT head is negative. Repeat EEG from 10/15/18 results noted, neuro following. - Continue keppra, valproic acid, follow-up neurology recommendations -Holding versed, but continue Ativan as needed - Pending MRI [id number] results of this # NSTEMI - Unclear if this is true non-ST elevation myocardial infarction versus demand ischemia- s/p heparin gtt earlier this admission. - Continue high dose aspirin. - She is also on Lipitor. - Cardiology Dr. Mello consulted, follow-up their recommendations #A fib with RVR, paroxysmal- Dr. Mello following- Converted to normal sinus after getting Cardizem in ED-apparently went back in A fib later, now presently normal sinus rhythm -Monitor heart rate for now, follow cardiology recommendations -Continue p.o. beta-panda and p.o. amiodarone for now # Renal insufficiency - improving- Not anuric - Dr. Davila consulted, monitor for now # Hypothyroidism - Continue current thyroid medicines. - Low TSH, normal fT4 consistent with sick euthyroid syndrome. # History of dementia. - Continue Aricept for now. # History of high cholesterol. - Cont statin #Anemia: Unclear source, hemoglobin improved the last couple of days after PRBC transfusion performed 2 days ago -Monitor, follow-up occult test #Hypernatremia: Resolved now -Monitor, continue current IV fluids # Gastrointestinal prophylaxis- H2 panda. # Deep venous thrombosis prophylaxis - due to anemia- SCDs Dispo: Bioethics meeting held yesterday to discuss CODE STATUS and further treatment of care -for now there is no change in the CODE STATUS. Upon discussion with pulmonary team today, however we are going to reconsider the plan for PEG and/or trach-patient has failed to weaning trials in the last 2 days. 40 minutes critical care time spent on this patient. Result Diagram: 10/18/18 0315 10/18/18 0315 Results 24hrs Laboratory Tests Test 10/18/18 03:15 10/18/18 07:00 White Blood Count 7.1 Red Blood Count 2.50 L Hemoglobin 7.9 L Hematocrit 24.3 L Mean Corpuscular Volume 97.2 Mean Corpuscular Hemoglobin 31.6 Mean Corpuscular Hemoglobin Concent 32.5 Red Cell Distribution Width 15.0 H Platelet Count 388 Mean Platelet Volume 11.2 H Immature Granulocytes % 0.800 H Neutrophils % 72.5 Lymphocytes % 16.6 Monocytes % 8.9 Eosinophils % 0.8 Basophils % 0.4 Nucleated Red Blood Cells % 0.0 Immature Granulocytes # 0.060 H Neutrophils # 5.1 Lymphocytes # 1.2 Monocytes # 0.6 Eosinophils # 0.1 Basophils # 0.0 Nucleated Red Blood Cells # 0.0 Sodium Level 142 Potassium Level 4.2 Chloride Level 110 Carbon Dioxide Level 25 Anion Gap 7 Blood Urea Nitrogen 24 H Creatinine 0.81 Est Glomerular Filtrat Rate mL/min > 60 Glucose Level 109 Calcium Level 8.7 Blood Gas Specimen Source Blood arterial Arterial Blood Date Drawn 10/18/2018 7:27:45 AM Arterial Blood pH (Temp corrected) 7.475 H Arterial Blood pCO2 (Temp correct) 34.7 L Arterial Blood pO2 (Temp corrected) 110.0 H Arterial Blood HCO3 25.0 Arterial Blood Base Excess 1.5 Arterial Blood Oxygen Saturation 98.0 Greg Test ACCEPTAB Arterial Blood Gas Puncture Site Right Radial Arterial Blood Carboxyhemoglobin 0.3 Arterial Blood Methemoglobin 0.3 Blood Gas A-a O2 Differential 63.1 H Oxyhemoglobin Percent 97.4 Blood Gas Temperature 37.0 Blood Gas Respiration Rate 16.0 Blood Gas Actual Respiration Rate 19 Blood Gas Modality VENT - AC FiO2 30.0 Blood Gas Tidal Volume 450.0 Blood Gas Low PEEP Setting 5.0 Blood Gas Notified Whom TM Blood Gas Notified Time 10/18/2018 7:49:20 AM Exam/Review of Systems Exam Vitals Vital Signs Date Temp Pulse Resp B/P (MAP) Pulse Ox O2 O2 Flow FiO2 Time Delivery Rate 10/18/18 71 17 148/79 99 Mechanical 09:00 (102) Ventilator 10/18/18 99.1 08:00 10/18/18 30 05:30 Intake and Output 10/17/18 10/17/18 10/18/18 1414:59 22:59 06:59 IntakeIntake Total 1230 ml 1040 ml 640 ml OutputOutput Total 525 ml 420 ml 500 ml BalanceBalance 705 ml 620 ml 140 ml Results Results 24hrs Laboratory Tests Test 10/18/18 03:15 10/18/18 07:00 White Blood Count 7.1 Red Blood Count 2.50 L Hemoglobin 7.9 L Hematocrit 24.3 L Mean Corpuscular Volume 97.2 Mean Corpuscular Hemoglobin 31.6 Mean Corpuscular Hemoglobin Concent 32.5 Red Cell Distribution Width 15.0 H Platelet Count 388 Mean Platelet Volume 11.2 H Immature Granulocytes % 0.800 H Neutrophils % 72.5 Lymphocytes % 16.6 Monocytes % 8.9 Eosinophils % 0.8 Basophils % 0.4 Nucleated Red Blood Cells % 0.0 Immature Granulocytes # 0.060 H Neutrophils # 5.1 Lymphocytes # 1.2 Monocytes # 0.6 Eosinophils # 0.1 Basophils # 0.0 Nucleated Red Blood Cells # 0.0 Sodium Level 142 Potassium Level 4.2 Chloride Level 110 Carbon Dioxide Level 25 Anion Gap 7 Blood Urea Nitrogen 24 H Creatinine 0.81 Est Glomerular Filtrat Rate mL/min > 60 Glucose Level 109 Calcium Level 8.7 Blood Gas Specimen Source Blood arterial Arterial Blood Date Drawn 10/18/2018 7:27:45 AM Arterial Blood pH (Temp corrected) 7.475 H Arterial Blood pCO2 (Temp correct) 34.7 L Arterial Blood pO2 (Temp corrected) 110.0 H Arterial Blood HCO3 25.0 Arterial Blood Base Excess 1.5 Arterial Blood Oxygen Saturation 98.0 Greg Test ACCEPTAB Arterial Blood Gas Puncture Site Right Radial Arterial Blood Carboxyhemoglobin 0.3 Arterial Blood Methemoglobin 0.3 Blood Gas A-a O2 Differential 63.1 H Oxyhemoglobin Percent 97.4 Blood Gas Temperature 37.0 Blood Gas Respiration Rate 16.0 Blood Gas Actual Respiration Rate 19 Blood Gas Modality VENT - AC FiO2 30.0 Blood Gas Tidal Volume 450.0 Blood Gas Low PEEP Setting 5.0 Blood Gas Notified Whom TM Blood Gas Notified Time 10/18/2018 7:49:20 AM Medications Medication Current Medications IV Flush (NS 3 ml) 3 ml PER PROTOCOL IV ; Start 10/06/18 at 09:30 Ondansetron HCl (Zofran Inj) 4 mg Q6H PRN IV NAUSEA/VOMITING; Start 10/06/18 at 09:30 Acetaminophen (Tylenol Tab) 650 mg Q6H PRN PO .PAIN 1-3 OR TEMP Last administered on 10/12/18at 08:27; Admin Dose 650 MG; Start 10/06/18 at 09:30 Acetaminophen/ Hydrocodone Bitart ([place] (5/325)) 1 tab Q6H PRN PO .MOD PAIN 4- 6; Start 10/06/18 at 09:30 Docusate Sodium (Colace) 100 mg Q12H PRN PO .CONSTIPATION; Start 10/06/18 at 09:30 Magnesium Hydroxide (Milk Of Mag) 30 ml DAILY PRN PO .CONSTIPATION; Start 10/06/18 at 09:30 Albuterol/ Ipratropium (Duoneb) 3 ml Q4H RESP THERAPY PRN HHN SHORTNESS OF BREATH; Start 10/06/18 at 09:30 Nitroglycerin (Nitroglycerin (Sl Tab) 0.4 Mg) 1 tab Q5M PRN SL ANGINA; Start 10/06/18 at 09:30 Bisacodyl (Dulcolax) 10 mg DAILY PRN PO CONSTIPATION; Start 10/06/18 at 09:30 Donepezil HCl (Aricept) 5 mg QHS PO Last administered on 10/17/18 20:59; Admin Dose 5 MG; Start 10/06/18 at 21:00 Lactulose (Enulose) 20 gm TID PRN PO CONSTIPATION; Start 10/06/18 at 09:30 Levothyroxine Sodium (Synthroid) 50 mcg BEFORE BREAKFAST PO Last administered on 10/18/18 05:40; Admin Dose 50 MCG; Start 10/07/18 at 07:00 Mineral Oil (Fleet Mineral Oil Enema) 133 ml DAILY PRN [place] CONSTIPATION; Start 10/06/18 at 09:30 Multivitamins Therapeutic (Theragran) 1 tab DAILY PO Last administered on 10/18/18 08:48; Admin Dose 1 TAB; Start 10/07/18 at 09:00 Norepinephrine 32 mg/Dextrose 250 ml @ 0.47 mls/hr TITRATE IV Last administer ed on 10/08/18 12:53; Admin Dose 4.69 MLS/HR; Start 10/06/18 at 11:30 Aspirin (Aspirin) 81 mg DAILY NGT Last administered on 10/11/18 09:35; Admin Dose 81 MG; Start 10/06/18 at 12:30; Status Hold Atorvastatin Calcium (Lipitor) 40 mg DAILY@21 NGT Last administered on 10/17/18 20:58; Admin Dose 40 MG; Start 10/06/18 at 21:00 Miscellaneous Information (Flu Vaccine Previously Dispensed) FLU VACCINE PREVIOU... NOTE PRN XX NOTE; Start 10/06/18 at 18:00 Midazolam HCl 50 ml @ 0 mls/hr TITRATE IV Last administered on 10/16/18 04:11; Admin Dose 1 MLS/HR; Start 10/08/18 at 10:00 Fentanyl 100 ml @ 2.5 mls/hr TITRATE IV Last administered on 10/10/18 01:01; Admin Dose 2.5 MLS/HR; Start 10/08/18 at 16:30 Amiodarone HCl (Cordarone) 200 mg BID PO Last administered on 10/18/18 08:47; Admin Dose 200 MG; Start 10/09/18 at 21:00 Famotidine (Pepcid) 20 mg DAILY NGT Last administered on 10/18/18 08:47; Admin Dose 20 MG; Start 10/10/18 at 09:00 Phenylephrine HCl 250 ml @ 75 mls/hr TITRATE IV Last administered on 10/12/18 01:38; Admin Dose 6 MLS/HR; Start 10/09/18 at 13:00 Polyethylene Glycol (Miralax) 17 gm BID PRN PO constipation; Start 10/10/18 at 22:00 Metoprolol Tartrate (Lopressor) 25 mg BID PO Last administered on 10/18/18 08:47; Admin Dose 25 MG; Start 10/12/18 at 15:00 Metoprolol Tartrate (Lopressor) 5 mg Q4H PRN IV HR>110 Hold SBP<100; Start 10/12/18 at 15:00 Enoxaparin Sodium (Lovenox) 70 mg DAILY SC Last administered on 10/18/18 08:59; Admin Dose 70 MG; Start 10/14/18 at 09:00 Levetiracetam (Keppra Liquid) 1,000 mg BID GTB Last administered on 10/18/18 08:46; Admin Dose 1,000 MG; Start 10/14/18 at 21:00 Valproate Sodium (Depakene Liquid Cup) 1,000 mg Q6H GTB Last administered on 10/18/18 02:27; Admin Dose 1,000 MG; Start 10/16/18 at 09:00 Lorazepam (Ativan) 1 mg Q4H PRN IV SEIZURES Last administered on 10/16/18 12:02; Admin Dose 1 MG; Start 10/16/18 at 12:00 Cefepime HCl 50 ml @ 100 mls/hr Q12 IVPB Last administered on 10/18/18 08:49; Admin Dose 100 MLS/HR; Start 10/16/18 at 21:00 Morphine Sulfate (morphine) 1 mg Q4H PRN IV .SEVERE PAIN 7-10 Last administered on 10/16/18at 15:58; Admin Dose 1 MG; Start 10/16/18 at 15:45 Epoetin Nile (Epogen (Non Esrd/Non Oncology)) 6,000 units MoWeFr@17 SC ; Start 10/18/18 at 17:00 MANUEL ALEMAN Oct 18, 2018 10:00
--- NOTE | 2018-10-18 10:37 | CONS ---
Consult Date/Type/Reason Admit Date/Time Oct 06, 2018 at 09:29 Initial Consult Date 10/06/18 Type of Consult Pulmonary Requesting Provider: MANUEL ALEMAN Date/Time of Note DATE: 10/18/18 TIME: 10:36 Subjective Patient more alert today. Opens eyes but not following commands tolerating CPAP weaning trial moderate oral secretions. Objective Vital Signs Date Temp Pulse Resp B/P (MAP) Pulse Ox O2 O2 Flow FiO2 Time Delivery Rate 10/18/18 30 09:10 10/18/18 71 17 148/79 99 Mechanical 09:00 (102) Ventilator 10/18/18 99.1 08:00 Intake and Output 10/17/18 10/17/18 10/18/18 1515:00 23:00 07:00 IntakeIntake Total 1230 ml 965 ml 585 ml OutputOutput Total 575 ml 430 ml 440 ml BalanceBalance 655 ml 535 ml 145 ml Exam Elderly lady orally intubated on mechanical ventilation VITAL SIGNS: per chart NECK: Supple. No JVD or lymphadenopathy. CARDIAC EXAM: S1, S2. No added sounds or murmurs. CHEST: Diminished air entry bilaterally ABDOMEN: Soft, nontender. No guarding or rebound. EXTREMITIES: No cyanosis, clubbing or edema. NEUROLOGIC: Generalized weakness. No focal deficits. Vent Setting Ventilator Support Mode: CPAP, PS Fraction of Inspired Oxygen pe: 30 Positive End Expiratory Pressu: 5.0 Results/Medications Result Diagram: 10/18/18 0315 10/18/18 0315 Results 24 hrs Laboratory Tests Test 10/18/18 03:15 10/18/18 07:00 10/18/18 10:10 White Blood Count 7.1 Red Blood Count 2.50 L Hemoglobin 7.9 L Hematocrit 24.3 L Mean Corpuscular 97.2 Volume Mean Corpuscular 31.6 Hemoglobin Mean Corpuscular 32.5 Hemoglobin Concent Red Cell Distribution 15.0 H Width Platelet Count 388 Mean Platelet Volume 11.2 H Immature Granulocytes 0.800 H % Neutrophils % 72.5 Lymphocytes % 16.6 Monocytes % 8.9 Eosinophils % 0.8 Basophils % 0.4 Nucleated Red Blood 0.0 Cells % Immature Granulocytes 0.060 H # Neutrophils # 5.1 Lymphocytes # 1.2 Monocytes # 0.6 Eosinophils # 0.1 Basophils # 0.0 Nucleated Red Blood 0.0 Cells # Sodium Level 142 Potassium Level 4.2 Chloride Level 110 Carbon Dioxide Level 25 Anion Gap 7 Blood Urea Nitrogen 24 H Creatinine 0.81 Est Glomerular > 60 Filtrat Rate mL/min Glucose Level 109 Calcium Level 8.7 Blood Gas Specimen Blood arterial Blood arterial Source Arterial Blood Date 10/18/2018 7:27:45 AM 10/18/2018 10:03:16 Drawn AM Arterial Blood pH 7.475 H 7.487 H (Temp corrected) Arterial Blood pCO2 34.7 L 34.8 L (Temp correct) Arterial Blood pO2 110.0 H 124.4 H (Temp corrected) Arterial Blood HCO3 25.0 25.7 Arterial Blood Base 1.5 2.4 Excess Arterial Blood 98.0 98.1 H Oxygen Saturation Greg Test ACCEPTAB ACCEPTAB Arterial Blood Gas Right Radial Right Radial Puncture Site Arterial 0.3 0.2 Blood Carboxyhemoglob in Arterial Blood 0.3 0.2 Methemoglobin Blood Gas A-a O2 63.1 H 48.6 H Differential Oxyhemoglobin Percent 97.4 97.7 Blood Gas Temperature 37.0 37.0 Blood Gas Respiration 16.0 Rate Blood Gas Actual 19 30 Respiration Rate Blood Gas Modality VENT - AC VENT - CPAP FiO2 30.0 30.0 Blood Gas Tidal 450.0 Volume Blood Gas Low PEEP 5.0 5.0 Setting Blood Gas Notified TM TM Whom Blood Gas Notified 10/18/2018 7:49:20 AM 10/18/2018 10:11:59 Time AM Blood Gas Pressure 10 Support Medications Current Medications IV Flush (NS 3 ml) 3 ml PER PROTOCOL IV ; Start 10/06/18 at 09:30 Ondansetron HCl (Zofran Inj) 4 mg Q6H PRN IV NAUSEA/VOMITING; Start 10/06/18 at 09:30 Acetaminophen (Tylenol Tab) 650 mg Q6H PRN PO .PAIN 1-3 OR TEMP Last administered on 10/12/18at 08:27; Admin Dose 650 MG; Start 10/06/18 at 09:30 Acetaminophen/ Hydrocodone Bitart ([place] (5/325)) 1 tab Q6H PRN PO .MOD PAIN 4- 6; Start 10/06/18 at 09:30 Docusate Sodium (Colace) 100 mg Q12H PRN PO .CONSTIPATION; Start 10/06/18 at 09:30 Magnesium Hydroxide (Milk Of Mag) 30 ml DAILY PRN PO .CONSTIPATION; Start 10/06/18 at 09:30 Albuterol/ Ipratropium (Duoneb) 3 ml Q4H RESP THERAPY PRN HHN SHORTNESS OF BREATH; Start 10/06/18 at 09:30 Nitroglycerin (Nitroglycerin (Sl Tab) 0.4 Mg) 1 tab Q5M PRN SL ANGINA; Start 10/06/18 at 09:30 Bisacodyl (Dulcolax) 10 mg DAILY PRN PO CONSTIPATION; Start 10/06/18 at 09:30 Donepezil HCl (Aricept) 5 mg QHS PO Last administered on 10/17/18 20:59; Admin Dose 5 MG; Start 10/06/18 at 21:00 Lactulose (Enulose) 20 gm TID PRN PO CONSTIPATION; Start 10/06/18 at 09:30 Levothyroxine Sodium (Synthroid) 50 mcg BEFORE BREAKFAST PO Last administered on 10/18/18 05:40; Admin Dose 50 MCG; Start 10/07/18 at 07:00 Mineral Oil (Fleet Mineral Oil Enema) 133 ml DAILY PRN [place] CONSTIPATION; Start 10/06/18 at 09:30 Multivitamins Therapeutic (Theragran) 1 tab DAILY PO Last administered on 10/18/18 08:48; Admin Dose 1 TAB; Start 10/07/18 at 09:00 Norepinephrine 32 mg/Dextrose 250 ml @ 0.47 mls/hr TITRATE IV Last administered on 10/08/18 12:53; Admin Dose 4.69 MLS/HR; Start 10/06/18 at 11:30 Aspirin (Aspirin) 81 mg DAILY NGT Last administered on 10/11/18 09:35; Admin Dose 81 MG; Start 10/06/18 at 12:30; Status Hold Atorvastatin Calcium (Lipitor) 40 mg DAILY@21 NGT Last administered on 10/17/18 20:58; Admin Dose 40 MG; Start 10/06/18 at 21:00 Miscellaneous Information (Flu Vaccine Previously Dispensed) FLU VACCINE PREVIOU... NOTE PRN XX NOTE; Start 10/06/18 at 18:00 Midazolam HCl 50 ml @ 0 mls/hr TITRATE IV Last administered on 10/16/18 04:11; Admin Dose 1 MLS/HR; Start 10/08/18 at 10:00 Fentanyl 100 ml @ 2.5 mls/hr TITRATE IV Last administered on 10/10/18 01:01; Admin Dose 2.5 MLS/HR; Start 10/08/18 at 16:30 Amiodarone HCl (Cordarone) 200 mg BID PO Last administered on 10/18/18 08:47; Admin Dose 200 MG; Start 10/09/18 at 21:00 Famotidine (Pepcid) 20 mg DAILY NGT Last administered on 10/18/18 08:47; Admin Dose 20 MG; Start 10/10/18 at 09:00 Phenylephrine HCl 250 ml @ 75 mls/hr TITRATE IV Last administered on 10/12/18 01:38; Admin Dose 6 MLS/HR; Start 10/09/18 at 13:00 Polyethylene Glycol (Miralax) 17 gm BID PRN PO constipation; Start 10/10/18 at 22:00 Metoprolol Tartrate (Lopressor) 25 mg BID PO Last administered on 10/18/18 08:47; Admin Dose 25 MG; Start 10/12/18 at 15:00 Metoprolol Tartrate (Lopressor) 5 mg Q4H PRN IV HR>110 Hold SBP<100; Start 10/12/18 at 15:00 Enoxaparin Sodium (Lovenox) 70 mg DAILY SC Last administered on 10/18/18 08:59; Admin Dose 70 MG; Start 10/14/18 at 09:00 Levetiracetam (Keppra Liquid) 1,000 mg BID GTB Last administered on 10/18/18 08:46; Admin Dose 1,000 MG; Start 10/14/18 at 21:00 Valproate Sodium (Depakene Liquid Cup) 1,000 mg Q6H GTB Last administered on 10/18/18 10:24; Admin Dose 1,000 MG; Start 10/16/18 at 09:00 Lorazepam (Ativan) 1 mg Q4H PRN IV SEIZURES Last administered on 10/16/18 12:02; Admin Dose 1 MG; Start 10/16/18 at 12:00 Cefepime HCl 50 ml @ 100 mls/hr Q12 IVPB Last administered on 10/18/18at 08:49; Admin Dose 100 MLS/HR; Start 10/16/18 at 21:00 Morphine Sulfate (morphine) 1 mg Q4H PRN IV .SEVERE PAIN 7-10 Last administered on 10/16/18at 15:58; Admin Dose 1 MG; Start 10/16/18 at 15:45 Epoetin Nile (Epogen (Non Esrd/Non Oncology)) 6,000 units MoWeFr@17 SC ; Start 10/18/18 at 17:00 Assessment/Plan Hospital Course (Demo Recall) IMP: 1. Status post septic Shock: likely due to urinary tract infection 2. Respiratory Failure 2/2 #1 3. UMBERTO-- pre-renal vs. ATN 2/2 #1 4. NSTEMI: type II 5. Afib with RVR--now in SR 6. History of dementia 7. Anemia likely chronic disease on dilutional RECS: 1. Continue mechanical ventilation CPAP trial this morning. Will extubate given and adequate arterial blood gases 2. Continue tube feeding as tolerated 3. Post extubation incentive spirometry pulmonary toilet Bioethics recommendations noted. If patient requires reintubation she will need a repeat bioethics meeting for tracheostomy Critical care time 40 minutes PETER ARAUZ MD, [facility] Oct 18, 2018 10:37
--- NOTE | 2018-10-18 11:17 | CONS ---
Assessment/Plan Assessment/Plan Assessment/Plan (Daily) 1. Non Oliguric Acute kidney injury due to ATN from septic shock 2. Septic shock due to UTI 3. acute UTI with Urine Cx growing E.Coli 4. Acute hypoxic respiratory failure intubated on ventilator - s/p Extubation on 10/18/18 5. H/o HTN 6 H/o HL 7. H/o Hypothyroidism 8. Bacteremia with blood cx 2/2 growing E.Coli Plan: Na 142, BUN/Cr 24/0.81, pt remains intubated, Hb 7.9- on epogen 6000 units MWF for anemia extubated today, post extubated, pt remains agitated and confused will follow up Consultation Date/Type/Reason Admit Date/Time Oct 06, 2018 at 09:29 Initial Consult Date 10/06/18 Type of Consult NEPHROLOGY Requesting Provider: MANUEL ALEMAN Date/Time of Note DATE: 10/18/18 TIME: 11:17 Exam/Review of Systems Exam Vitals Vital Signs Date Temp Pulse Resp B/P (MAP) Pulse Ox O2 O2 Flow FiO2 Time Delivery Rate 10/18/18 30 09:10 10/18/18 71 17 148/79 99 Mechanical 09:00 (102) Ventilator 10/18/18 99.1 08:00 Intake and Output 10/17/18 10/17/18 10/18/18 1515:00 23:00 07:00 IntakeIntake Total 1230 ml 965 ml 585 ml OutputOutput Total 575 ml 430 ml 440 ml BalanceBalance 655 ml 535 ml 145 ml Results Result Diagram: 10/18/18 0315 10/18/18 0315 Results 24hrs Laboratory Tests Test 10/18/18 03:15 10/18/18 07:00 10/18/18 10:10 White Blood Count 7.1 Red Blood Count 2.50 L Hemoglobin 7.9 L Hematocrit 24.3 L Mean Corpuscular 97.2 Volume Mean Corpuscular 31.6 Hemoglobin Mean Corpuscular 32.5 Hemoglobin Concent Red Cell Distribution 15.0 H Width Platelet Count 388 Mean Platelet Volume 11.2 H Immature Granulocytes 0.800 H % Neutrophils % 72.5 Lymphocytes % 16.6 Monocytes % 8.9 Eosinophils % 0.8 Basophils % 0.4 Nucleated Red Blood 0.0 Cells % Immature Granulocytes 0.060 H # Neutrophils # 5.1 Lymphocytes # 1.2 Monocytes # 0.6 Eosinophils # 0.1 Basophils # 0.0 Nucleated Red Blood 0.0 Cells # Sodium Level 142 Potassium Level 4.2 Chloride Level 110 Carbon Dioxide Level 25 Anion Gap 7 Blood Urea Nitrogen 24 H Creatinine 0.81 Est Glomerular > 60 Filtrat Rate mL/min Glucose Level 109 Calcium Level 8.7 Blood Gas Specimen Blood arterial Blood arterial Source Arterial Blood Date 10/18/2018 7:27:45 AM 10/18/2018 10:03:16 Drawn AM Arterial Blood pH 7.475 H 7.487 H (Temp corrected) Arterial Blood pCO2 34.7 L 34.8 L (Temp correct) Arterial Blood pO2 110.0 H 124.4 H (Temp corrected) Arterial Blood HCO3 25.0 25.7 Arterial Blood Base 1.5 2.4 Excess Arterial Blood 98.0 98.1 H Oxygen Saturation Greg Test ACCEPTAB ACCEPTAB Arterial Blood Gas Right Radial Right Radial Puncture Site Arterial 0.3 0.2 Blood Carboxyhemoglob in Arterial Blood 0.3 0.2 Methemoglobin Blood Gas A-a O2 63.1 H 48.6 H Differential Oxyhemoglobin Percent 97.4 97.7 Blood Gas Temperature 37.0 37.0 Blood Gas Respiration 16.0 Rate Blood Gas Actual 19 30 Respiration Rate Blood Gas Modality VENT - AC VENT - CPAP FiO2 30.0 30.0 Blood Gas Tidal 450.0 Volume Blood Gas Low PEEP 5.0 5.0 Setting Blood Gas Notified TM TM Whom Blood Gas Notified 10/18/2018 7:49:20 AM 10/18/2018 10:11:59 Time AM Blood Gas Pressure 10 Support Medications Medication Current Medications IV Flush (NS 3 ml) 3 ml PER PROTOCOL IV ; Start 10/06/18 at 09:30 Ondansetron HCl (Zofran Inj) 4 mg Q6H PRN IV NAUSEA/VOMITING; Start 10/06/18 at 09:30 Acetaminophen (Tylenol Tab) 650 mg Q6H PRN PO .PAIN 1-3 OR TEMP Last administered on 10/12/18at 08:27; Admin Dose 650 MG; Start 10/06/18 at 09:30 Acetaminophen/ Hydrocodone Bitart ([place] (5/325)) 1 tab Q6H PRN PO .MOD PAIN 4- 6; Start 10/06/18 at 09:30 Docusate Sodium (Colace) 100 mg Q12H PRN PO .CONSTIPATION; Start 10/06/18 at 09:30 Magnesium Hydroxide (Milk Of Mag) 30 ml DAILY PRN PO .CONSTIPATION; Start 10/06/18 at 09:30 Albuterol/ Ipratropium (Duoneb) 3 ml Q4H RESP THERAPY PRN HHN SHORTNESS OF BREATH; Start 10/06/18 at 09:30 Nitroglycerin (Nitroglycerin (Sl Tab) 0.4 Mg) 1 tab Q5M PRN SL ANGINA; Start 10/06/18 at 09:30 Bisacodyl (Dulcolax) 10 mg DAILY PRN PO CONSTIPATION; Start 10/06/18 at 09:30 Donepezil HCl (Aricept) 5 mg QHS PO Last administered on 10/17/18at 20:59; Admin Dose 5 MG; Start 10/06/18 at 21:00 Lactulose (Enulose) 20 gm TID PRN PO CONSTIPATION; Start 10/06/18 at 09:30 Levothyroxine Sodium (Synthroid) 50 mcg BEFORE BREAKFAST PO Last administered on 10/18/18at 05:40; Admin Dose 50 MCG; Start 10/07/18 at 07:00 Mineral Oil (Fleet Mineral Oil Enema) 133 ml DAILY PRN [place] CONSTIPATION; Start 10/06/18 at 09:30 Multivitamins Therapeutic (Theragran) 1 tab DAILY PO Last administered on 10/18/18at 08:48; Admin Dose 1 TAB; Start 10/07/18 at 09:00 Norepinephrine 32 mg/Dextrose 250 ml @ 0.47 mls/hr TITRATE IV Last administered on 10/08/18 12:53; Admin Dose 4.69 MLS/HR; Start 10/06/18 at 11:30 Aspirin (Aspirin) 81 mg DAILY NGT Last administered on 10/11/18 09:35; Admin Dose 81 MG; Start 10/06/18 at 12:30; Status Hold Atorvastatin Calcium (Lipitor) 40 mg DAILY@21 NGT Last administered on 10/17/18at 20:58; Admin Dose 40 MG; Start 10/06/18 at 21:00 Miscellaneous Information (Flu Vaccine Previously Dispensed) FLU VACCINE PREVIOU... NOTE PRN XX NOTE; Start 10/06/18 at 18:00 Midazolam HCl 50 ml @ 0 mls/hr TITRATE IV Last administered on 10/16/18 04:11; Admin Dose 1 MLS/HR; Start 10/08/18 at 10:00 Fentanyl 100 ml @ 2.5 mls/hr TITRATE IV Last administered on 10/10/18 01:01; Admin Dose 2.5 MLS/HR; Start 10/08/18 at 16:30 Amiodarone HCl (Cordarone) 200 mg BID PO Last administered on 10/18/18 08:47; Admin Dose 200 MG; Start 10/09/18 at 21:00 Famotidine (Pepcid) 20 mg DAILY NGT Last administered on 10/18/18 08:47; Admin Dose 20 MG; Start 10/10/18 at 09:00 Phenylephrine HCl 250 ml @ 75 mls/hr TITRATE IV Last administered on 10/12/18 01:38; Admin Dose 6 MLS/HR; Start 10/09/18 at 13:00 Polyethylene Glycol (Miralax) 17 gm BID PRN PO constipation; Start 10/10/18 at 22:00 Metoprolol Tartrate (Lopressor) 25 mg BID PO Last administered on 10/18/18 08:47; Admin Dose 25 MG; Start 10/12/18 at 15:00 Metoprolol Tartrate (Lopressor) 5 mg Q4H PRN IV HR>110 Hold SBP<100; Start 10/12/18 at 15:00 Enoxaparin Sodium (Lovenox) 70 mg DAILY SC Last administered on 10/18/18 08:59; Admin Dose 70 MG; Start 10/14/18 at 09:00 Levetiracetam (Keppra Liquid) 1,000 mg BID GTB Last administered on 10/18/18 08:46; Admin Dose 1,000 MG; Start 10/14/18 at 21:00 Valproate Sodium (Depakene Liquid Cup) 1,000 mg Q6H GTB Last administered on 10/18/18 10:24; Admin Dose 1,000 MG; Start 10/16/18 at 09:00 Lorazepam (Ativan) 1 mg Q4H PRN IV SEIZURES Last administered on 10/16/18 12:02; Admin Dose 1 MG; Start 10/16/18 at 12:00 Cefepime HCl 50 ml @ 100 mls/hr Q12 IVPB Last administered on 10/18/18at 08:49; Admin Dose 100 MLS/HR; Start 10/16/18 at 21:00 Morphine Sulfate (morphine) 1 mg Q4H PRN IV .SEVERE PAIN 7-10 Last administered on 10/16/18at 15:58; Admin Dose 1 MG; Start 10/16/18 at 15:45 Epoetin Nile (Epogen (Non Esrd/Non Oncology)) 6,000 units MoWeFr@17 SC ; Start 10/18/18 at 17:00 VALARIE BENNETT MD Oct 18, 2018 11:17
--- NOTE | 2018-10-18 12:10 | CONS ---
Assessment/Plan Assessment/Plan Hospital Course (Demo Recall) IMP: 1. Nstemi- in setting of renal failure and shock. Downtrended 2.Shock-improved off pressors with actual HTN now 3.Tachycardia-S tach at this time 4.UTI 5.PAF with RVR-now back in SR this AM 6.Renal failure 7.Dyslipidemia 8.Sz d/o 9. Hypothyroid 10. anemia-s/p transfusions 11. Resp failure s/p extubation this am Recc: -ICU -Contineu current BB -Follow rhythm and rate closely -Continue abx's and f/u cx data -Continue statin -now in SR on po amio. Will follow rhythm clsoely -Lovenox as tolerated only given anemia requiring transfusions -dose of lasix and follow resp status closely Consultation Date/Type/Reason Admit Date/Time Oct 06, 2018 at 09:29 Initial Consult Date 10/06/18 Type of Consult Cardiology Reason for Consultation PAF Requesting Provider: MANUEL ALEMAN Date/Time of Note DATE: 10/18/18 TIME: 12:04 Exam/Review of Systems Vital Signs Vitals Vital Signs Date Temp Pulse Resp B/P (MAP) Pulse Ox O2 O2 Flow FiO2 Time Delivery Rate 10/18/18 98 2.0 11:00 10/18/18 69 18 141/80 Mechanical 11:00 (100) Ventilator 10/18/18 30 09:25 10/18/18 99.1 08:00 Intake and Output 10/17/18 10/17/18 10/18/18 1515:00 23:00 07:00 IntakeIntake Total 1230 ml 965 ml 585 ml OutputOutput Total 575 ml 430 ml 440 ml BalanceBalance 655 ml 535 ml 145 ml Exam Exam Review of Systems: CONSTITUTIONAL: No fevers, chills. PULMONARY: s/p extubation CARDIOVASCULAR: No chest pain/palpitations GASTROINTESTINAL: No nausea/vomiting. GENITOURINARY: No hematuria/dysuria. MUSCULOSKELETAL: No myagias/arthalgias. PSYCHIATRIC: The patient denies depression. NEUROLOGIC: confused Constitutional: alert Psych: no complaints Head: normocephalic ENMT: mucosa pink and moist Neck: supple, jvd (9 cm water) Respiratory: diminished breath sounds (at bases/B) Cardiovascular: regular rate and rhythm Gastrointestinal: soft Musculoskeletal: muscle tone (normal) Extremities: edema (none) Neurological: other (No focal deficits) Labs Result Diagram: 10/18/18 0315 10/18/18 0315 Results 24hrs Laboratory Tests Test 10/18/18 03:15 10/18/18 07:00 10/18/18 10:10 White Blood Count 7.1 Red Blood Count 2.50 L Hemoglobin 7.9 L Hematocrit 24.3 L Mean Corpuscular 97.2 Volume Mean Corpuscular 31.6 Hemoglobin Mean Corpuscular 32.5 Hemoglobin Concent Red Cell Distribution 15.0 H Width Platelet Count 388 Mean Platelet Volume 11.2 H Immature Granulocytes 0.800 H % Neutrophils % 72.5 Lymphocytes % 16.6 Monocytes % 8.9 Eosinophils % 0.8 Basophils % 0.4 Nucleated Red Blood 0.0 Cells % Immature Granulocytes 0.060 H # Neutrophils # 5.1 Lymphocytes # 1.2 Monocytes # 0.6 Eosinophils # 0.1 Basophils # 0.0 Nucleated Red Blood 0.0 Cells # Sodium Level 142 Potassium Level 4.2 Chloride Level 110 Carbon Dioxide Level 25 Anion Gap 7 Blood Urea Nitrogen 24 H Creatinine 0.81 Est Glomerular > 60 Filtrat Rate mL/min Glucose Level 109 Calcium Level 8.7 Blood Gas Specimen Blood arterial Blood arterial Source Arterial Blood Date 10/18/2018 7:27:45 AM 10/18/2018 10:03:16 Drawn AM Arterial Blood pH 7.475 H 7.487 H (Temp corrected) Arterial Blood pCO2 34.7 L 34.8 L (Temp correct) Arterial Blood pO2 110.0 H 124.4 H (Temp corrected) Arterial Blood HCO3 25.0 25.7 Arterial Blood Base 1.5 2.4 Excess Arterial Blood 98.0 98.1 H Oxygen Saturation Greg Test ACCEPTAB ACCEPTAB Arterial Blood Gas Right Radial Right Radial Puncture Site Arterial 0.3 0.2 Blood Carboxyhemoglob in Arterial Blood 0.3 0.2 Methemoglobin Blood Gas A-a O2 63.1 H 48.6 H Differential Oxyhemoglobin Percent 97.4 97.7 Blood Gas Temperature 37.0 37.0 Blood Gas Respiration 16.0 Rate Blood Gas Actual 19 30 Respiration Rate Blood Gas Modality VENT - AC VENT - CPAP FiO2 30.0 30.0 Blood Gas Tidal 450.0 Volume Blood Gas Low PEEP 5.0 5.0 Setting Blood Gas Notified TM TM Whom Blood Gas Notified 10/18/2018 7:49:20 AM 10/18/2018 10:11:59 Time AM Blood Gas Pressure 10 Support Medications Medications Current Medications IV Flush (NS 3 ml) 3 ml PER PROTOCOL IV ; Start 10/06/18 at 09:30 Ondansetron HCl (Zofran Inj) 4 mg Q6H PRN IV NAUSEA/VOMITING; Start 10/06/18 at 09:30 Acetaminophen (Tylenol Tab) 650 mg Q6H PRN PO .PAIN 1-3 OR TEMP Last a dministered on 10/12/18at 08:27; Admin Dose 650 MG; Start 10/06/18 at 09:30 Acetaminophen/ Hydrocodone Bitart ([place] (5/325)) 1 tab Q6H PRN PO .MOD PAIN 4- 6; Start 10/06/18 at 09:30 Docusate Sodium (Colace) 100 mg Q12H PRN PO .CONSTIPATION; Start 10/06/18 at 09:30 Magnesium Hydroxide (Milk Of Mag) 30 ml DAILY PRN PO .CONSTIPATION; Start 10/06/18 at 09:30 Albuterol/ Ipratropium (Duoneb) 3 ml Q4H RESP THERAPY PRN HHN SHORTNESS OF BREATH; Start 10/06/18 at 09:30 Nitroglycerin (Nitroglycerin (Sl Tab) 0.4 Mg) 1 tab Q5M PRN SL ANGINA; Start 10/06/18 at 09:30 Bisacodyl (Dulcolax) 10 mg DAILY PRN PO CONSTIPATION; Start 10/06/18 at 09:30 Donepezil HCl (Aricept) 5 mg QHS PO Last administered on 10/17/18at 20:59; Admin Dose 5 MG; Start 10/06/18 at 21:00 Lactulose (Enulose) 20 gm TID PRN PO CONSTIPATION; Start 10/06/18 at 09:30 Levothyroxine Sodium (Synthroid) 50 mcg BEFORE BREAKFAST PO Last administered on 10/18/18at 05:40; Admin Dose 50 MCG; Start 10/07/18 at 07:00 Mineral Oil (Fleet Mineral Oil Enema) 133 ml DAILY PRN [place] CONSTIPATION; Start 10/06/18 at 09:30 Multivitamins Therapeutic (Theragran) 1 tab DAILY PO Last administered on 10/18/18 08:48; Admin Dose 1 TAB; Start 10/07/18 at 09:00 Norepinephrine 32 mg/Dextrose 250 ml @ 0.47 mls/hr TITRATE IV Last administered on 10/08/18 12:53; Admin Dose 4.69 MLS/HR; Start 10/06/18 at 11:30 Aspirin (Aspirin) 81 mg DAILY NGT Last administered on 10/11/18 09:35; Admin Dose 81 MG; Start 10/06/18 at 12:30; Status Hold Atorvastatin Calcium (Lipitor) 40 mg DAILY@21 NGT Last administered on 10/17/18 20:58; Admin Dose 40 MG; Start 10/06/18 at 21:00 Miscellaneous Information (Flu Vaccine Previously Dispensed) FLU VACCINE PREVIOU... NOTE PRN XX NOTE; Start 10/06/18 at 18:00 Midazolam HCl 50 ml @ 0 mls/hr TITRATE IV Last administered on 10/16/18 04:11; Admin Dose 1 MLS/HR; Start 10/08/18 at 10:00 Fentanyl 100 ml @ 2.5 mls/hr TITRATE IV Last administered on 10/10/18 01:01; Admin Dose 2.5 MLS/HR; Start 10/08/18 at 16:30 Amiodarone HCl (Cordarone) 200 mg BID PO Last administered on 10/18/18 08:47; Admin Dose 200 MG; Start 10/09/18 at 21:00 Famotidine (Pepcid) 20 mg DAILY NGT Last administered on 10/18/18 08:47; Admin Dose 20 MG; Start 10/10/18 at 09:00 Phenylephrine HCl 250 ml @ 75 mls/hr TITRATE IV Last administered on 10/12/18 01:38; Admin Dose 6 MLS/HR; Start 10/09/18 at 13:00 Polyethylene Glycol (Miralax) 17 gm BID PRN PO constipation; Start 10/10/18 at 22:00 Metoprolol Tartrate (Lopressor) 25 mg BID PO Last administered on 10/18/18 08:47; Admin Dose 25 MG; Start 10/12/18 at 15:00 Metoprolol Tartrate (Lopressor) 5 mg Q4H PRN IV HR>110 Hold SBP<100; Start 10/12/18 at 15:00 Enoxaparin Sodium (Lovenox) 70 mg DAILY SC Last administered on 10/18/18 08:59; Admin Dose 70 MG; Start 10/14/18 at 09:00 Levetiracetam (Keppra Liquid) 1,000 mg BID GTB Last administered on 10/18/18 08:46; Admin Dose 1,000 MG; Start 10/14/18 at 21:00 Valproate Sodium (Depakene Liquid Cup) 1,000 mg Q6H GTB Last administered on 10/18/18 10:24; Admin Dose 1,000 MG; Start 10/16/18 at 09:00 Lorazepam (Ativan) 1 mg Q4H PRN IV SEIZURES Last administered on 10/16/18 12:02; Admin Dose 1 MG; Start 10/16/18 at 12:00 Cefepime HCl 50 ml @ 100 mls/hr Q12 IVPB Last administered on 10/18/18 08:49; Admin Dose 100 MLS/HR; Start 10/16/18 at 21:00 Morphine Sulfate (morphine) 1 mg Q4H PRN IV .SEVERE PAIN 7-10 Last administered on 10/16/18 15:58; Admin Dose 1 MG; Start 10/16/18 at 15:45 Epoetin Nile (Epogen (Non Esrd/Non Oncology)) 6,000 units MoWeFr@17 SC ; Start 10/18/18 at 17:00 ANGELA CARY Oct 18, 2018 12:10
[2018-10-18] MEDS: FUROSEMIDE 20 MG INJ IV SCH (12:37)
--- NOTE | 2018-10-18 14:04 | CONS ---
Assessment/Plan Assessment/Plan Hospital Course (Demo Recall) Patient was extubated this morning she is lying comfortably in bed no fevers overnight WBC 7.1 platelets 388 neutrophils 72.5 BUN 24 creatinine 0.81. Chest x-ray this morning revealed small pleural effusions with adjacent airspace disease increased compared to prior Microbiology: Blood and urine cultures grew E. coli Indwelling: Piña catheter right IJ triple-lumen catheter Allergy: Penicillin, clindamycin Antibiotics: Cefepime Physical examination: Well-developed chronically ill-appearing elderly woman. The patient is in no distress. Head atraumatic normocephalic. Neck is supple. Chest rise symmetrical, breath sounds diminished bases. Heart: S1-S2, tachycardic, irregular. Abdomen soft bowel sounds hypoactive. Extremities mottled cyanotic Assessment: 1. Sepsis==> resolving 2. E coli bacteremia secondary to urinary tract infection 3. Acute hypoxemic respiratory failure 4. Healthcare associated pneumonia, possibly aspiration 4. Acute possibly on chronic kidney disease 5. Non-ST elevation VA 6. Atrial fibrillation status post RVR 7. Seizures Plan: Patient remains stable, completing antibiotics for 3 more days Consultation Date/Type/Reason Admit Date/Time Oct 06, 2018 at 09:29 Initial Consult Date 10/06/18 Type of Consult id Requesting Provider: MANUEL ALEMAN Date/Time of Note DATE: 10/18/18 TIME: 14:03 Exam/Review of Systems Exam Vitals Vital Signs Date Temp Pulse Resp B/P (MAP) Pulse Ox O2 O2 Flow FiO2 Time Delivery Rate 10/18/18 73 16 143/72 100 Mechanical 13:00 (95) Ventilator 10/18/18 99.0 12:00 10/18/18 2.0 11:00 10/18/18 30 09:25 Intake and Output 10/17/18 10/17/18 10/18/18 1515:00 23:00 07:00 IntakeIntake Total 1230 ml 965 ml 640 ml OutputOutput Total 575 ml 430 ml 540 ml BalanceBalance 655 ml 535 ml 100 ml Results Result Diagram: 10/18/18 0315 10/18/18 0315 Results 24hrs Laboratory Tests Test 10/18/18 03:15 10/18/18 07:00 10/18/18 10:10 White Blood Count 7.1 Red Blood Count 2.50 L Hemoglobin 7.9 L Hematocrit 24.3 L Mean Corpuscular 97.2 Volume Mean Corpuscular 31.6 Hemoglobin Mean Corpuscular 32.5 Hemoglobin Concent Red Cell Distribution 15.0 H Width Platelet Count 388 Mean Platelet Volume 11.2 H Immature Granulocytes 0.800 H % Neutrophils % 72.5 Lymphocytes % 16.6 Monocytes % 8.9 Eosinophils % 0.8 Basophils % 0.4 Nucleated Red Blood 0.0 Cells % Immature Granulocytes 0.060 H # Neutrophils # 5.1 Lymphocytes # 1.2 Monocytes # 0.6 Eosinophils # 0.1 Basophils # 0.0 Nucleated Red Blood 0.0 Cells # Sodium Level 142 Potassium Level 4.2 Chloride Level 110 Carbon Dioxide Level 25 Anion Gap 7 Blood Urea Nitrogen 24 H Creatinine 0.81 Est Glomerular > 60 Filtrat Rate mL/min Glucose Level 109 Calcium Level 8.7 Blood Gas Specimen Blood arterial Blood arterial Source Arterial Blood Date 10/18/2018 7:27:45 AM 10/18/2018 10:03:16 Drawn AM Arterial Blood pH 7.475 H 7.487 H (Temp corrected) Arterial Blood pCO2 34.7 L 34.8 L (Temp correct) Arterial Blood pO2 110.0 H 124.4 H (Temp corrected) Arterial Blood HCO3 25.0 25.7 Arterial Blood Base 1.5 2.4 Excess Arterial Blood 98.0 98.1 H Oxygen Saturation Greg Test ACCEPTAB ACCEPTAB Arterial Blood Gas Right Radial Right Radial Puncture Site Arterial 0.3 0.2 Blood Carboxyhemoglob in Arterial Blood 0.3 0.2 Methemoglobin Blood Gas A-a O2 63.1 H 48.6 H Differential Oxyhemoglobin Percent 97.4 97.7 Blood Gas Temperature 37.0 37.0 Blood Gas Respiration 16.0 Rate Blood Gas Actual 19 30 Respiration Rate Blood Gas Modality VENT - AC VENT - CPAP FiO2 30.0 30.0 Blood Gas Tidal 450.0 Volume Blood Gas Low PEEP 5.0 5.0 Setting Blood Gas Notified TM TM Whom Blood Gas Notified 10/18/2018 7:49:20 AM 10/18/2018 10:11:59 Time AM Blood Gas Pressure 10 Support Medications Medication Current Medications IV Flush (NS 3 ml) 3 ml PER PROTOCOL IV ; Start 10/06/18 at 09:30 Ondansetron HCl (Zofran Inj) 4 mg Q6H PRN IV NAUSEA/VOMITING; Start 10/06/18 at 09:30 Acetaminophen (Tylenol Tab) 650 mg Q6H PRN PO .PAIN 1-3 OR TEMP Last administered on 10/12/18at 08:27; Admin Dose 650 MG; Start 10/06/18 at 09:30 Acetaminophen/ Hydrocodone Bitart ([place] (5/325)) 1 tab Q6H PRN PO .MOD PAIN 4- 6; Start 10/06/18 at 09:30 Docusate Sodium (Colace) 100 mg Q12H PRN PO .CONSTIPATION; Start 10/06/18 at 09:30 Magnesium Hydroxide (Milk Of Mag) 30 ml DAILY PRN PO .CONSTIPATION; Start at 09:30 Albuterol/ Ipratropium (Duoneb) 3 ml Q4H RESP THERAPY PRN HHN SHORTNESS OF BREATH; Start 10/06/18 at 09:30 Nitroglycerin (Nitroglycerin (Sl Tab) 0.4 Mg) 1 tab Q5M PRN SL ANGINA; Start 10/06/18 at 09:30 Bisacodyl (Dulcolax) 10 mg DAILY PRN PO CONSTIPATION; Start 10/06/18 at 09:30 Donepezil HCl (Aricept) 5 mg QHS PO Last administered on 10/17/18at 20:59; Admin Dose 5 MG; Start 10/06/18 at 21:00 Lactulose (Enulose) 20 gm TID PRN PO CONSTIPATION; Start 10/06/18 at 09:30 Levothyroxine Sodium (Synthroid) 50 mcg BEFORE BREAKFAST PO Last administered on 10/18/18at 05:40; Admin Dose 50 MCG; Start 10/07/18 at 07:00 Mineral Oil (Fleet Mineral Oil Enema) 133 ml DAILY PRN [place] CONSTIPATION; Start 10/06/18 at 09:30 Multivitamins Therapeutic (Theragran) 1 tab DAILY PO Last administered on at 08:48; Admin Dose 1 TAB; Start 10/07/18 at 09:00 Norepinephrine 32 mg/Dextrose 250 ml @ 0.47 mls/hr TITRATE IV Last administered on 10/08/18at 12:53; Admin Dose 4.69 MLS/HR; Start 10/06/18 at 11:30 Aspirin (Aspirin) 81 mg DAILY NGT Last administered on 10/11/18 09:35; Admin Dose 81 MG; Start 10/06/18 at 12:30; Status Hold Atorvastatin Calcium (Lipitor) 40 mg DAILY@21 NGT Last administered on 10/17/18 20:58; Admin Dose 40 MG; Start 10/06/18 at 21:00 Miscellaneous Information (Flu Vaccine Previously Dispensed) FLU VACCINE PREVIOU... NOTE PRN XX NOTE; Start 10/06/18 at 18:00 Midazolam HCl 50 ml @ 0 mls/hr TITRATE IV Last administered on 10/16/18 04:11; Admin Dose 1 MLS/HR; Start 10/08/18 at 10:00 Fentanyl 100 ml @ 2.5 mls/hr TITRATE IV Last administered on 10/10/18 01:01; Admin Dose 2.5 MLS/HR; Start 10/08/18 at 16:30 Amiodarone HCl (Cordarone) 200 mg BID PO Last administered on 10/18/18 08:47; Admin Dose 200 MG; Start 10/09/18 at 21:00 Famotidine (Pepcid) 20 mg DAILY NGT Last administered on 10/18/18 08:47; Admin Dose 20 MG; Start 10/10/18 at 09:00 Phenylephrine HCl 250 ml @ 75 mls/hr TITRATE IV Last administered on 10/12/18 01:38; Admin Dose 6 MLS/HR; Start 10/09/18 at 13:00 Polyethylene Glycol (Miralax) 17 gm BID PRN PO constipation; Start 10/10/18 at 22:00 Metoprolol Tartrate (Lopressor) 25 mg BID PO Last administered on 10/18/18 08:47; Admin Dose 25 MG; Start 10/12/18 at 15:00 Metoprolol Tartrate (Lopressor) 5 mg Q4H PRN IV HR>110 Hold SBP<100; Start 10/12 at 15:00 Enoxaparin Sodium (Lovenox) 70 mg DAILY SC Last administered on 10/18/18 08:59; Admin Dose 70 MG; Start 10/14/18 at 09:00 Levetiracetam (Keppra Liquid) 1,000 mg BID GTB Last administered on 10/18/18 08:46; Admin Dose 1,000 MG; Start 10/14/18 at 21:00 Valproate Sodium (Depakene Liquid Cup) 1,000 mg Q6H GTB Last administered on 10/18/18 10:24; Admin Dose 1,000 MG; Start 10/16/18 at 09:00 Lorazepam (Ativan) 1 mg Q4H PRN IV SEIZURES Last administered on 10/16/18 12:02; Admin Dose 1 MG; Start 10/16/18 at 12:00 Cefepime HCl 50 ml @ 100 mls/hr Q12 IVPB Last administered on 10/18/18 08:49; Admin Dose 100 MLS/HR; Start 10/16/18 at 21:00 Morphine Sulfate (morphine) 1 mg Q4H PRN IV .SEVERE PAIN 7-10 Last administered on 10/16/18 15:58; Admin Dose 1 MG; Start 10/16/18 at 15:45 Epoetin Nile (Epogen (Non Esrd/Non Oncology)) 6,000 units MoWeFr@17 SC ; Start 10/18/18 at 17:00 Furosemide (Lasix) 20 mg DAILY@0600 IV Last administered on 10/18/18 12:37; Admin Dose 20 MG; Start 10/18/18 at 12:30 MARKOS BRADY NP Oct 18, 2018 14:04
[2018-10-18] MEDS: QUETIAPINE 25 MG TAB NGT PRN (14:38)
--- NOTE | 2018-10-18 14:46 | CONS ---
Assessment/Plan Assessment/Plan Hospital Course 67 F c/ dementia, epilepsy, and other comorbidities, who presents for management of cardiopulmonary Sx. She was noted to have a generalized convulsion on 10/08, for which neurology is consulted... Certainly her acute illness is lowering her seizure threshold.. CTH is without acute intracranial pathology EEG is notable for severe left hemispheric on diffuse slowing 10/12: breakthrough seizure --> ativan rescue Repeat EEG, 10/14, is without evidence of nonconvulsive status. P: Cont depakote 1g qid for now Cont maintenance Keppra 1000mg bid for now Ativan iv prn prolonged seizure or cluster OK to continue asa for primary stroke prevention daily given her afib Add low dose seroquel prn agitation Continued medical management per primary Will follow clinically Consultation Date/Type/Reason Admit Date/Time Oct 06, 2018 at 09:29 Type of Consult Neurology Reason for Consultation seizure Requesting Provider: MANUEL ALEMAN Date/Time of Note DATE: 10/18/18 TIME: 14:45 24 HR Interval Summary Free Text/Dictation Continues critical care. S/p extubation ~1100 this am. Pt reportedly anxious, yelling. Pt is unable to meaningfully contribute. Exam Vital Signs Vitals Vital Signs Date Temp Pulse Resp B/P (MAP) Pulse Ox O2 O2 Flow FiO2 Time Delivery Rate 10/18/18 73 16 143/72 100 Mechanical 13:00 (95) Ventilator 10/18/18 99.0 12:00 10/18/18 2.0 11:00 10/18/18 30 09:25 Intake and Output 10/17/18 10/17/18 10/18/18 1515:00 23:00 07:00 IntakeIntake Total 1230 ml 965 ml 640 ml OutputOutput Total 575 ml 430 ml 540 ml BalanceBalance 655 ml 535 ml 100 ml Exam PE: Gen Appearance: Appears very anxious HEENT: Normocephalic Cardiovascular: Regular rate Abdomen: Soft Extremities: Dry NE: The patient was awake and alert, though disoriented. Yelling nonsensically. Able to track. Unable to follow commands. Cranial nerve examination was limited by mental status. Pupils were equal and reactive to light. There was no afferent pupillary defect. Funduscopic examination was limited. Face was grossly symmetric, w/ present corneal and coug h reflexes. Tone was slightly increased in her LUE. Muscle bulk was normal. Twitching of her L shoulder/arm was noted. The patient withdrew all extremities. Coordination and gait testing was limited by mental status. Arm and leg reflexes were symmetric. Beck's sign was absent. Plantar responses were flexor. CHEYENNE JEAN NP Oct 18, 2018 14:46
[2018-10-18] MEDS: EPOETIN 3000 UNITS/ML (NON ESRD/NON ONCOLOGY) SC SCH (17:09)
[2018-10-18] MEDS: morphine 2 MG INJ IV PRN (19:44)
[2018-10-18] MEDS: DONEPEZIL 5 MG TAB PO SCH (20:39)
[2018-10-18] MEDS: ATORVASTATIN 40 MG TAB NGT SCH (20:39)
[2018-10-19] VITALS (24 sets, daily range): BP systolic 90–177; BP diastolic 46–105; PULSE 56–90; RESP 11–23
[2018-10-19] MEDS: VALPROIC ACID LIQUID CUP 250 MG/5 ML CUP GTB SCH ×4 (03:00→21:35)
[2018-10-19] MEDS: morphine 2 MG INJ IV PRN ×2 (03:59→08:27)
[2018-10-19] MEDS: FUROSEMIDE 20 MG INJ IV SCH (06:38)
[2018-10-19] MEDS: LEVOTHYROXINE 50 MCG TAB PO SCH (06:38)
[2018-10-19] MEDS: AMIODARONE 200 MG TAB PO SCH ×2 (08:26→21:39)
[2018-10-19] MEDS: METOPROLOL 25 MG TAB PO SCH ×2 (08:26→21:40)
[2018-10-19] MEDS: LEVETIRACETAM (100 MG/ML) 5ML CUP GTB SCH ×2 (08:26→21:36)
[2018-10-19] MEDS: MULTIVITAMINS THERAPEUTIC TAB PO SCH (08:26)
[2018-10-19] MEDS: FAMOTIDINE 20 MG TAB NGT SCH (08:27)
[2018-10-19] MEDS: ENOXAPARIN 100 MG/ML SYG SC SCH (08:47)
[2018-10-19] MEDS ORDERED: VALPROATE INJ 1,000 MG in SOD CHLORIDE 0.9% 100 ML IVPB ONE (09:00)
--- NOTE | 2018-10-19 09:13 | CONS ---
Assessment/Plan Assessment/Plan Hospital Course 67 F c/ dementia, epilepsy, and other comorbidities, who presents for management of cardiopulmonary Sx. She was noted to have a generalized convulsion on 10/08, for which neurology is consulted... Certainly her acute illness is lowering her seizure threshold.. CTH is without acute intracranial pathology EEG is notable for severe left hemispheric on diffuse slowing 10/12: breakthrough seizure --> ativan rescue Repeat EEG, 10/14, is without evidence of nonconvulsive status. P: Cont depakote 1g qid for now Cont maintenance Keppra 1000mg bid for now Ativan iv prn prolonged seizure or cluster OK to continue asa for primary stroke prevention daily given her afib Add low dose seroquel prn agitation Continued medical management per primary Will follow clinically Consultation Date/Type/Reason Admit Date/Time Oct 06, 2018 at 09:29 Type of Consult Neurology Reason for Consultation seizure Requesting Provider: MANUEL ALEMAN Date/Time of Note DATE: 10/19/18 TIME: 09:13 24 HR Interval Summary Free Text/Dictation Continues critical care. No seizure events reported. Exam Vital Signs Vitals Vital Signs Date Temp Pulse Resp B/P (MAP) Pulse Ox O2 O2 Flow FiO2 Time Delivery Rate 10/19/18 Nasal 07:45 Cannula 10/19/18 90 14 166/100 97 07:00 (122) 10/19/18 2.0 04:20 10/19/18 98.3 04:00 10/18/18 30 09:25 Intake and Output 10/18/18 10/18/18 10/19/18 1515:00 23:00 07:00 IntakeIntake Total 265 ml 485 ml 640 ml OutputOutput Total 1750 ml 780 ml 680 ml BalanceBalance -1485 ml -295 ml -40 ml Exam PE: Gen Appearance: Calm, NAD HEENT: Normocephalic Cardiovascular: Regular rate Abdomen: Soft Extremities: Dry NE: The patient was asleep, though arousable to voice. Able to track. Unable to follow commands. Cranial nerve examination was limited by mental status. Pupils were equal and reactive to light. There was no afferent pupillary defect. Funduscopic examination was limited. Face was grossly symmetric, w/ present corneal and cough reflexes. Tone was slightly increased in her LUE. Muscle bulk was normal. No fasciculati ons were noted. The patient withdrew all extremities. Coordination and gait testing was limited by mental status. Arm and leg reflexes were symmetric. Beck's sign was absent. Plantar responses were flexor. CHEYENNE JEAN NP Oct 19, 2018 09:13
--- NOTE | 2018-10-19 10:29 | CONS ---
Assessment/Plan Assessment/Plan Hospital Course (Demo Recall) ID PROGRESS NOTE CURRENT ABX: DAY # Cefepime 10/19/186 10/19/18 0426 24H INTERVAL SUMMARY * Encephalopathic -- moaning and shaking -- intermittent agitation. * Extubated 10/18/18 am -- O2 via NC * Indwelling: Piña catheter right IJ triple-lumen catheter DIAGNOSTIC IMAGING * 10/19/18 CXR: 1. Findings suggestive of pulmonary vascular congestion with small bilateral pleural effusions. Findings are minimally increased when compared to the prior examination.2. Mild cardiomegaly and aortic atherosclerosis. 3. Tubes and lines, as described above. MICRO/OTHER * 10/08/2018 Resp. Cx (-) * 10/08/2018 BCx (-) * 10/06/2018 BCx (+)GNR = E.coli * 10/06/2018 Urine Cx (+)GNR = E.coli PHYSICAL EXAMINATION: GENERAL: VSS HEENT: AT, NC, anicteric NECK: Supple, CHEST: Equal chest rise bilaterally, without dyspnea on observation HEART: Pulse RRR ABDOMEN: Soft / NT EXTREMITIES: Warm, dry SKIN: No rash, no diaphoresis ID ASSESSMENT 67 yo F admit with: 1. Sepsis==> resolving 2. E coli bacteremia secondary to urinary tract infection 3. Acute hypoxemic respiratory failure 4. Healthcare associated pneumonia, possibly aspiration 4. Acute possibly on chronic kidney disease 5. Non-ST elevation [place] 6. Atrial fibrillation status post RVR 7. Seizures ABX ALLERGIES: PCN/SULFA/CLINDA INVASIVES: PIV CURRENT ABX: DAY # Cefepime ID RECOMMENDATIONS/PLAN: 1. Continue current ABX per ID Colleague notes until Sunday . Consultation Date/Type/Reason Admit Date/Time Oct 06, 2018 at 09:29 Initial Consult Date 10/06/18 Requesting Provider: MANUEL ALEMAN Date/Time of Note DATE: 10/19/18 TIME: 10:27 Exam/Review of Systems Exam Vitals Vital Signs Date Temp Pulse Resp B/P (MAP) Pulse Ox O2 O2 Flow FiO2 Time Delivery Rate 10/19/18 Nasal 07:45 Cannula 10/19/18 90 14 166/100 97 07:00 (122) 10/19/18 2.0 04:20 10/19/18 98.3 04:00 10/18/18 30 09:25 Intake and Output 10/18/18 10/18/18 10/19/18 1414:59 22:59 06:59 IntakeIntake Total 320 ml 430 ml 540 ml OutputOutput Total 1450 ml 1140 ml 420 ml BalanceBalance -1130 ml -710 ml 120 ml Results Result Diagram: 10/19/18 0426 10/19/18 0426 Results 24hrs Laboratory Tests Test 10/19/18 04:26 10/19/18 07:00 White Blood Count 5.8 Red Blood Count 2.51 L Hemoglobin 7.8 L Hematocrit 24.6 L Mean Corpuscular Volume 98.0 Mean Corpuscular Hemoglobin 31.1 Mean Corpuscular Hemoglobin Concent 31.7 L Red Cell Distribution Width 14.8 H Platelet Count 372 Mean Platelet Volume 11.3 H Immature Granulocytes % 1.000 H Neutrophils % 71.7 Lymphocytes % 18.8 Monocytes % 7.3 Eosinophils % 0.9 Basophils % 0.3 Nucleated Red Blood Cells % 0.0 Immature Granulocytes # 0.060 H Neutrophils # 4.1 Lymphocytes # 1.1 Monocytes # 0.4 Eosinophils # 0.1 Basophils # 0.0 Nucleated Red Blood Cells # 0.0 Sodium Level 142 Potassium Level 4.4 Chloride Level 109 Carbon Dioxide Level 28 Anion Gap 5 Blood Urea Nitrogen 23 H Creatinine 0.83 Est Glomerular Filtrat Rate mL/min > 60 Glucose Level 90 Calcium Level 8.7 Valproic Acid (Depakene) Level 39 L Blood Gas Specimen Source Blood arterial Arterial Blood Date Drawn 10/19/2018 8:45:38 AM Arterial Blood pH (Temp corrected) 7.482 H Arterial Blood pCO2 (Temp correct) 37.0 Arterial Blood pO2 (Temp corrected) 92.2 Arterial Blood HCO3 27.1 H Arterial Blood Base Excess 3.4 H Arterial Blood Oxygen Saturation 96.9 Greg Test ACCEPTAB Arterial Blood Gas Puncture Site Right Radial Arterial Blood Carboxyhemoglobin 0.3 Arterial Blood Methemoglobin 0.4 Blood Gas A-a O2 Differential 56.6 H Oxyhemoglobin Percent 96.2 Blood Gas Temperature 37.0 Blood Gas Modality NASAL CANNULA FiO2 27.0 Blood Gas Notified Whom MDA Blood Gas Notified Time 10/19/2018 8:56:25 AM Medications Medication Current Medications IV Flush (NS 3 ml) 3 ml PER PROTOCOL IV ; Start 10/06/18 at 09:30 Ondansetron HCl (Zofran Inj) 4 mg Q6H PRN IV NAUSEA/VOMITING; Start 10/06/18 at 09:30 Acetaminophen (Tylenol Tab) 650 mg Q6H PRN PO .PAIN 1-3 OR TEMP Last administered on 10/12/18at 08:27; Admin Dose 650 MG; Start 10/06/18 at 09:30 Acetaminophen/ Hydrocodone Bitart ([place] (5/325)) 1 tab Q6H PRN PO .MOD PAIN 4- 6; Start 10/06/18 at 09:30 Docusate Sodium (Colace) 100 mg Q12H PRN PO .CONSTIPATION; Start 10/06/18 at 09:30 Magnesium Hydroxide (Milk Of Mag) 30 ml DAILY PRN PO .CONSTIPATION; Start 10/06/18 at 09:30 Albuterol/ Ipratropium (Duoneb) 3 ml Q4H RESP THERAPY PRN HHN SHORTNESS OF BREATH; Start 10/06/18 at 09:30 Nitroglycerin (Nitroglycerin (Sl Tab) 0.4 Mg) 1 tab Q5M PRN SL ANGINA; Start 10/06/18 at 09:30 Bisacodyl (Dulcolax) 10 mg DAILY PRN PO CONSTIPATION; Start 10/06/18 at 09:30 Donepezil HCl (Aricept) 5 mg QHS PO Last administered on 10/18/18at 20:39; Admin Dose 5 MG; Start 10/06/18 at 21:00 Lactulose (Enulose) 20 gm TID PRN PO CONSTIPATION; Start 10/06/18 at 09:30 Levothyroxine Sodium (Synthroid) 50 mcg BEFORE BREAKFAST PO Last administered on 10/19/18at 06:38; Admin Dose 50 MCG; Start 10/07/18 at 07:00 Mineral Oil (Fleet Mineral Oil Enema) 133 ml DAILY PRN CO CONSTIPATION; Start 10/06/18 at 09:30 Multivitamins Therapeutic (Theragran) 1 tab DAILY PO Last administered on 10/19/18at 08:26; Admin Dose 1 TAB; Start 10/07/18 at 09:00 Norepinephrine 32 mg/Dextrose 250 ml @ 0.47 mls/hr TITRATE IV Last administered on 10/08/18 12:53; Admin Dose 4.69 MLS/HR; Start 10/06/18 at 11:30 Aspirin (Aspirin) 81 mg DAILY NGT Last administered on 10/11/18 09:35; Admin Dose 81 MG; Start 10/06/18 at 12:30; Status Hold Atorvastatin Calcium (Lipitor) 40 mg DAILY@21 NGT Last administered on 10/18/18 20:39; Admin Dose 40 MG; Start 10/06/18 at 21:00 Miscellaneous Information (Flu Vaccine Previously Dispensed) FLU VACCINE PREVIOU... NOTE PRN XX NOTE; Start 10/06/18 at 18:00 Midazolam HCl 50 ml @ 0 mls/hr TITRATE IV Last administered on 10/16/18 04:11; Admin Dose 1 MLS/HR; Start 10/08/18 at 10:00 Fentanyl 100 ml @ 2.5 mls/hr TITRATE IV Last administered on 10/10/18 01:01; Admin Dose 2.5 MLS/HR; Start 10/08/18 at 16:30 Amiodarone HCl (Cordarone) 200 mg BID PO Last administered on 10/19/18 08:26; Admin Dose 200 MG; Start 10/09/18 at 21:00 Famotidine (Pepcid) 20 mg DAILY NGT Last administered on 10/19/18 08:27; Admin Dose 20 MG; Start 10/10/18 at 09:00 Phenylephrine HCl 250 ml @ 75 mls/hr TITRATE IV Last administered on 10/12/18 01:38; Admin Dose 6 MLS/HR; Start 10/09/18 at 13:00 Polyethylene Glycol (Miralax) 17 gm BID PRN PO constipation; Start 10/10/18 at 22:00 Metoprolol Tartrate (Lopressor) 25 mg BID PO Last administered on 10/19/18 08 :26; Admin Dose 25 MG; Start 10/12/18 at 15:00 Metoprolol Tartrate (Lopressor) 5 mg Q4H PRN IV HR>110 Hold SBP<100; Start 10/12/18 at 15:00 Enoxaparin Sodium (Lovenox) 70 mg DAILY SC Last administered on 10/19/18 08:47; Admin Dose 70 MG; Start 10/14/18 at 09:00 Levetiracetam (Keppra Liquid) 1,000 mg BID GTB Last administered on 10/19/18 08:26; Admin Dose 1,000 MG; Start 10/14/18 at 21:00 Valproate Sodium (Depakene Liquid Cup) 1,000 mg Q6H GTB Last administered on 10/19/18 08:25; Admin Dose 1,000 MG; Start 10/16/18 at 09:00 Lorazepam (Ativan) 1 mg Q4H PRN IV SEIZURES Last administered on 10/16/18 12:02; Admin Dose 1 MG; Start 10/16/18 at 12:00 Cefepime HCl 50 ml @ 100 mls/hr Q12 IVPB Last administered on 10/18/18 20:37; Admin Dose 100 MLS/HR; Start 10/16/18 at 21:00 Morphine Sulfate (morphine) 1 mg Q4H PRN IV .SEVERE PAIN 7-10 Last administered on 10/19/18 08:27; Admin Dose 1 MG; Start 10/16/18 at 15:45 Epoetin Nile (Epogen (Non Esrd/Non Oncology)) 6,000 units MoWeFr@17 SC Last administered on 10/18/18 17:09; Admin Dose 6,000 UNITS; Start 10/18/18 at 17:00 Furosemide (Lasix) 20 mg DAILY@0600 IV Last administered on 10/19/18 06:38; Admin Dose 20 MG; Start 10/18/18 at 12:30 Quetiapine Fumarate (Seroquel) 12.5 mg QID PRN NGT anxiety/agitation Last administered on 10/18/18 14:38; Admin Dose 12.5 MG; Start 10/18/18 at 14:30 ROLF GONZALEZ NP Oct 19, 2018 10:29
--- NOTE | 2018-10-19 10:30 | PN ---
Date/Time of Note Date/Time of Note DATE: 10/19/18 TIME: 10:21 Assessment/Plan VTE Prophylaxis Risk score (from Ns)>0 risk: 10 SCD applied (from Ns): Yes Pharmacological prophylaxis: other Lines/Catheters IV C[facility]ter Type (from [facility]): Central Line Central line still needed: Yes Urinary Cath still in place: Yes Reason Cath still needed: urinary retention Assessment/Plan Hospital Course S: Patient extubated yesterday. Tolerating tube feeds. Started on low-dose Seroquel for some agitation, improving. O: VS -SEE BELOW PE: GENERAL: lying in bed, opens eyes and moans occasionally HEENT: Moist mucous membranes NECK: Supple, no thyromegaly. LUNGS: Mechanical breath sounds equal bilaterally. CARDIOVASCULAR: S1, S2 heard. No rubs or gallops. ABDOMEN: Soft, nontender, nondistended. Normal bowel sounds. No rebound or guarding. MUSCULOSKELETAL: No lower extremity edema bilaterally. Assessment/Plan: 67-year-old female coming in with signs of septic shock, likely secondary to urinary tract infection and pneumonia, elevated troponins, acute renal insufficiency, now intubated on pressor support. Also presented with atrial fibrillation with rapid ventricular response, now in normal sinus rhythm. #Septic shock and respiratory failure-resolving now, ID Dr. Sanford following- Likely due to UTI- Urine cultures and Blood cultures growing E Coli x2-has been off vasopressor support for the last 4-5 days. Again, patient extubated yesterday, presently on 1 L nasal cannula oxygen -Continue current broad-spectrum antibiotics, Tylenol p.r.n. pain and fevers. -Follow-up ID recommendations, final culture results, continue IV fluids -Follow pulmonary recommendations #Seizure- Morning of 10/08 had whole body twitching concerning for seizures; got Ativan then Versed. Again on 10/11 had a similar episode broken with Ativan-10/08/18 EEG appears to have localized lesion but CT head is negative. Repeat EEG from 10/15/18 results noted, neuro following. - Continue keppra, valproic acid, follow-up neurology recommendations - Holding versed, but continue Ativan as needed - Pending MRI [id number] results of this -Low-dose Seroquel as needed agitation # NSTEMI - Unclear if this is true non-ST elevation myocardial infarction versus demand ischemia- s/p heparin gtt earlier this admission. - Continue high dose aspirin. - Continue Lipitor. - Cardiology Dr. Mello consulted, follow-up their recommendations #A fib with RVR, paroxysmal-stable, Dr. Mello following- Converted to normal sinus after getting Cardizem in ED-apparently went back in A fib later, now presently normal sinus rhythm -Monitor heart rate for now, follow cardiology recommendations -Continue p.o. beta-panda and p.o. amiodarone for now # Renal insufficiency - improving- Not anuric - Dr. Davila consulted, monitor for now # Hypothyroidism - Continue current thyroid medicines. - Low TSH, normal fT4 consistent with sick euthyroid syndrome. # History of dementia. - Continue Aricept for now. # History of high cholesterol. - Cont statin #Anemia: Unclear source, hemoglobin in the high 7 range; PRBC transfusion performed a few days ago -Monitor CBC daily #Hypernatremia: Resolved now -Monitor, continue current IV fluids # Gastrointestinal prophylaxis- H2 panda. # Deep venous thrombosis prophylaxis - due to anemia- SCDs Dispo: Bioethics meeting held 2 days ago - for now there is no change in the CODE STATUS. Patient requires reintubation, will need to reconsult bioethics team for consideration of tracheostomy at that time if necessary. 40 minutes critical care time spent on this patient. Result Diagram: 10/19/18 0426 10/19/18 0426 Results 24hrs Laboratory Tests Test 10/19/18 04:26 10/19/18 07:00 White Blood Count 5.8 Red Blood Count 2.51 L Hemoglobin 7.8 L Hematocrit 24.6 L Mean Corpuscular Volume 98.0 Mean Corpuscular Hemoglobin 31.1 Mean Corpuscular Hemoglobin Concent 31.7 L Red Cell Distribution Width 14.8 H Platelet Count 372 Mean Platelet Volume 11.3 H Immature Granulocytes % 1.000 H Neutrophils % 71.7 Lymphocytes % 18.8 Monocytes % 7.3 Eosinophils % 0.9 Basophils % 0.3 Nucleated Red Blood Cells % 0.0 Immature Granulocytes # 0.060 H Neutrophils # 4.1 Lymphocytes # 1.1 Monocytes # 0.4 Eosinophils # 0.1 Basophils # 0.0 Nucleated Red Blood Cells # 0.0 Sodium Level 142 Potassium Level 4.4 Chloride Level 109 Carbon Dioxide Level 28 Anion Gap 5 Blood Urea Nitrogen 23 H Creatinine 0.83 Est Glomerular Filtrat Rate mL/min > 60 Glucose Level 90 Calcium Level 8.7 Valproic Acid (Depakene) Level 39 L Blood Gas Specimen Source Blood arterial Arterial Blood Date Drawn 10/19/2018 8:45:38 AM Arterial Blood pH (Temp corrected) 7.482 H Arterial Blood pCO2 (Temp correct) 37.0 Arterial Blood pO2 (Temp corrected) 92.2 Arterial Blood HCO3 27.1 H Arterial Blood Base Excess 3.4 H Arterial Blood Oxygen Saturation 96.9 Greg Test ACCEPTAB Arterial Blood Gas Puncture Site Right Radial Arterial Blood Carboxyhemoglobin 0.3 Arterial Blood Methemoglobin 0.4 Blood Gas A-a O2 Differential 56.6 H Oxyhemoglobin Percent 96.2 Blood Gas Temperature 37.0 Blood Gas Modality NASAL CANNULA FiO2 27.0 Blood Gas Notified Whom MDA Blood Gas Notified Time 10/19/2018 8:56:25 AM Exam/Review of Systems Exam Vitals Vital Signs Date Temp Pulse Resp B/P (MAP) Pulse Ox O2 O2 Flow FiO2 Time Delivery Rate 10/19/18 Nasal 07:45 Cannula 10/19/18 90 14 166/100 97 07:00 (122) 10/19/18 2.0 04:20 10/19/18 98.3 04:00 10/18/18 30 09:25 Intake and Output 10/18/18 10/18/18 10/19/18 1414:59 22:59 06:59 IntakeIntake Total 320 ml 430 ml 540 ml OutputOutput Total 1450 ml 1140 ml 420 ml BalanceBalance -1130 ml -710 ml 120 ml Results Results 24hrs Laboratory Tests Test 10/19/18 04:26 10/19/18 07:00 White Blood Count 5.8 Red Blood Count 2.51 L Hemoglobin 7.8 L Hematocrit 24.6 L Mean Corpuscular Volume 98.0 Mean Corpuscular Hemoglobin 31.1 Mean Corpuscular Hemoglobin Concent 31.7 L Red Cell Distribution Width 14.8 H Platelet Count 372 Mean Platelet Volume 11.3 H Immature Granulocytes % 1.000 H Neutrophils % 71.7 Lymphocytes % 18.8 Monocytes % 7.3 Eosinophils % 0.9 Basophils % 0.3 Nucleated Red Blood Cells % 0.0 Immature Granulocytes # 0.060 H Neutrophils # 4.1 Lymphocytes # 1.1 Monocytes # 0.4 Eosinophils # 0.1 Basophils # 0.0 Nucleated Red Blood Cells # 0.0 Sodium Level 142 Potassium Level 4.4 Chloride Level 109 Carbon Dioxide Level 28 Anion Gap 5 Blood Urea Nitrogen 23 H Creatinine 0.83 Est Glomerular Filtrat Rate mL/min > 60 Glucose Level 90 Calcium Level 8.7 Valproic Acid (Depakene) Level 39 L Blood Gas Specimen Source Blood arterial Arterial Blood Date Drawn 10/19/2018 8:45:38 AM Arterial Blood pH (Temp corrected) 7.482 H Arterial Blood pCO2 (Temp correct) 37.0 Arterial Blood pO2 (Temp corrected) 92.2 Arterial Blood HCO3 27.1 H Arterial Blood Base Excess 3.4 H Arterial Blood Oxygen Saturation 96.9 Greg Test ACCEPTAB Arterial Blood Gas Puncture Site Right Radial Arterial Blood Carboxyhemoglobin 0.3 Arterial Blood Methemoglobin 0.4 Blood Gas A-a O2 Differential 56.6 H Oxyhemoglobin Percent 96.2 Blood Gas Temperature 37.0 Blood Gas Modality NASAL CANNULA FiO2 27.0 Blood Gas Notified Whom MDA Blood Gas Notified Time 10/19/2018 8:56:25 AM Medications Medication Current Medications IV Flush (NS 3 ml) 3 ml PER PROTOCOL IV ; Start 10/06/18 at 09:30 Ondansetron HCl (Zofran Inj) 4 mg Q6H PRN IV NAUSEA/VOMITING; Start 10/06/18 at 09:30 Acetaminophen (Tylenol Tab) 650 mg Q6H PRN PO .PAIN 1-3 OR TEMP Last administered on 10/12/18at 08:27; Admin Dose 650 MG; Start 10/06/18 at 09:30 Acetaminophen/ Hydrocodone Bitart ([place] (5/325)) 1 tab Q6H PRN PO .MOD PAIN 4- 6; Start 10/06/18 at 09:30 Docusate Sodium (Colace) 100 mg Q12H PRN PO .CONSTIPATION; Start 10/06/18 at 09:30 Magnesium Hydroxide (Milk Of Mag) 30 ml DAILY PRN PO .CONSTIPATION; Start 10/06/18 at 09:30 Albuterol/ Ipratropium (Duoneb) 3 ml Q4H RESP THERAPY PRN HHN SHORTNESS OF BREATH; Start 10/06/18 at 09:30 Nitroglycerin (Nitroglycerin (Sl Tab) 0.4 Mg) 1 tab Q5M PRN SL ANGINA; Start 10/06/18 at 09:30 Bisacodyl (Dulcolax) 10 mg DAILY PRN PO CONSTIPATION; Start 10/06/18 at 09:30 Donepezil HCl (Aricept) 5 mg QHS PO Last administered on 10/18/18 20:39; Admin Dose 5 MG; Start 10/06/18 at 21:00 Lactulose (Enulose) 20 gm TID PRN PO CONSTIPATION; Start 10/06/18 at 09:30 Levothyroxine Sodium (Synthroid) 50 mcg BEFORE BREAKFAST PO Last administered on 10/19/18 06:38; Admin Dose 50 MCG; Start 10/07/18 at 07:00 Mineral Oil (Fleet Mineral Oil Enema) 133 ml DAILY PRN SC CONSTIPATION; Start 10/06/18 at 09:30 Multivitamins Therapeutic (Theragran) 1 tab DAILY PO Last administered on 10/19/18 08:26; Admin Dose 1 TAB; Start 10/07/18 at 09:00 Norepinephrine 32 mg/Dextrose 250 ml @ 0.47 mls/hr TITRATE IV Last administered on 10/08/18 12:53; Admin Dose 4.69 MLS/HR; Start 10/06/18 at 11:30 Aspirin (Aspirin) 81 mg DAILY NGT Last administered on 10/11/18 09:35; Admin Dose 81 MG; Start 10/06/18 at 12:30; Status Hold Atorvastatin Calcium (Lipitor) 40 mg DAILY@21 NGT Last administered on 10/18/18 20:39; Admin Dose 40 MG; Start 10/06/18 at 21:00 Miscellaneous Information (Flu Vaccine Previously Dispensed) FLU VACCINE PREVIOU... NOTE PRN XX NOTE; Start 10/06/18 at 18:00 Midazolam HCl 50 ml @ 0 mls/hr TITRATE IV Last administered on 10/16/18 04:11; Admin Dose 1 MLS/HR; Start 10/08/18 at 10:00 Fentanyl 100 ml @ 2.5 mls/hr TITRATE IV Last administered on 10/10/18 01:01; Admin Dose 2.5 MLS/HR; Start 10/08/18 at 16:30 Amiodarone HCl (Cordarone) 200 mg BID PO Last administered on 10/19/18 08:26; Admin Dose 200 MG; Start 10/09/18 at 21:00 Famotidine (Pepcid) 20 mg DAILY NGT Last administered on 10/19/18 08:27; Admin Dose 20 MG; Start 10/10/18 at 09:00 Phenylephrine HCl 250 ml @ 75 mls/hr TITRATE IV Last administered on 10/12/18 01:38; Admin Dose 6 MLS/HR; Start 10/09/18 at 13:00 Polyethylene Glycol (Miralax) 17 gm BID PRN PO constipation; Start 10/10/18 at 22:00 Metoprolol Tartrate (Lopressor) 25 mg BID PO Last administered on 10/19/18 08:26; Admin Dose 25 MG; Start 10/12/18 at 15:00 Metoprolol Tartrate (Lopressor) 5 mg Q4H PRN IV HR>110 Hold SBP<100; Start at 15:00 Enoxaparin Sodium (Lovenox) 70 mg DAILY SC Last administered on 10/19/18 08:47; Admin Dose 70 MG; Start 10/14/18 at 09:00 Levetiracetam (Keppra Liquid) 1,000 mg BID GTB Last administered on 10/19/18 08:26; Admin Dose 1,000 MG; Start 10/14/18 at 21:00 Valproate Sodium (Depakene Liquid Cup) 1,000 mg Q6H GTB Last administered on 10/19/18 08:25; Admin Dose 1,000 MG; Start 10/16/18 at 09:00 Lorazepam (Ativan) 1 mg Q4H PRN IV SEIZURES Last administered on 10/16/18 12:02; Admin Dose 1 MG; Start 10/16/18 at 12:00 Cefepime HCl 50 ml @ 100 mls/hr Q12 IVPB Last administered on 10/18/18 20:37; Admin Dose 100 MLS/HR; Start 10/16/18 at 21:00 Morphine Sulfate (morphine) 1 mg Q4H PRN IV .SEVERE PAIN 7-10 Last administered on 10/19/18 08:27; Admin Dose 1 MG; Start 10/16/18 at 15:45 Epoetin Nile (Epogen (Non Esrd/Non Oncology)) 6,000 units MoWeFr@17 SC Last administered on 10/18/18at 17:09; Admin Dose 6,000 UNITS; Start 10/18/18 at 17:00 Furosemide (Lasix) 20 mg DAILY@0600 IV Last administered on 10/19/18at 06:38; Admin Dose 20 MG; Start 10/18/18 at 12:30 Quetiapine Fumarate (Seroquel) 12.5 mg QID PRN NGT anxiety/agitation Last administered on 10/18/18at 14:38; Admin Dose 12.5 MG; Start 10/18/18 at 14:30 MANUEL ALEMAN Oct 19, 2018 10:30
--- NOTE | 2018-10-19 11:53 | CONS ---
Consult Date/Type/Reason Admit Date/Time Oct 06, 2018 at 09:29 Initial Consult Date 10/06/18 Type of Consultation: Pulm/CCM Requesting Provider: MANUEL ALEMAN Date/Time of Note DATE: 10/19/18 TIME: 11:50 Subjective Extubated yesterday. Appears confused and agitated. Objective Vitals Vital Signs Date Temp Pulse Resp B/P (MAP) Pulse Ox O2 O2 Flow FiO2 Time Delivery Rate 10/19/18 72 08:00 10/19/18 Nasal 07:45 Cannula 10/19/18 14 166/100 97 07:00 (122) 10/19/18 2.0 04:20 10/19/18 98.3 04:00 10/18/18 30 09:25 Intake and Output 10/18/18 10/18/18 10/19/18 1515:00 23:00 07:00 IntakeIntake Total 265 ml 485 ml 640 ml OutputOutput Total 1750 ml 780 ml 680 ml BalanceBalance -1485 ml -295 ml -40 ml Exam NECK: Supple. No JVD or lymphadenopathy. CARDIAC EXAM: S1, S2. No added sounds or murmurs. CHEST: Diminished air entry bilaterally ABDOMEN: Soft, nontender. No guarding or rebound. EXTREMITIES: No cyanosis, clubbing or edema. NEUROLOGIC: Generalized weakness. No focal deficits. Results/Medications Result Diagram: 10/19/18 0426 10/19/18 0426 Results 24 hrs Laboratory Tests Test 10/19/18 04:26 10/19/18 07:00 White Blood Count 5.8 Red Blood Count 2.51 L Hemoglobin 7.8 L Hematocrit 24.6 L Mean Corpuscular Volume 98.0 Mean Corpuscular Hemoglobin 31.1 Mean Corpuscular Hemoglobin Concent 31.7 L Red Cell Distribution Width 14.8 H Platelet Count 372 Mean Platelet Volume 11.3 H Immature Granulocytes % 1.000 H Neutrophils % 71.7 Lymphocytes % 18.8 Monocytes % 7.3 Eosinophils % 0.9 Basophils % 0.3 Nucleated Red Blood Cells % 0.0 Immature Granulocytes # 0.060 H Neutrophils # 4.1 Lymphocytes # 1.1 Monocytes # 0.4 Eosinophils # 0.1 Basophils # 0.0 Nucleated Red Blood Cells # 0.0 Sodium Level 142 Potassium Level 4.4 Chloride Level 109 Carbon Dioxide Level 28 Anion Gap 5 Blood Urea Nitrogen 23 H Creatinine 0.83 Est Glomerular Filtrat Rate mL/min > 60 Glucose Level 90 Calcium Level 8.7 Valproic Acid (Depakene) Level 39 L Blood Gas Specimen Source Blood arterial Arterial Blood Date Drawn 10/19/2018 8:45:38 AM Arterial Blood pH (Temp corrected) 7.482 H Arterial Blood pCO2 (Temp correct) 37.0 Arterial Blood pO2 (Temp corrected) 92.2 Arterial Blood HCO3 27.1 H Arterial Blood Base Excess 3.4 H Arterial Blood Oxygen Saturation 96.9 Greg Test ACCEPTAB Arterial Blood Gas Puncture Site Right Radial Arterial Blood Carboxyhemoglobin 0.3 Arterial Blood Methemoglobin 0.4 Blood Gas A-a O2 Differential 56.6 H Oxyhemoglobin Percent 96.2 Blood Gas Temperature 37.0 Blood Gas Modality NASAL CANNULA FiO2 27.0 Blood Gas Notified Whom MDA Blood Gas Notified Time 10/19/2018 8:56:25 AM Home Meds Active Scripts Vancomycin Hcl (Vancocin) 1 Gm Soln, 500 MG IV Q12 for 7 Days, VIAL 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 08/31/18 Reported Medications Donepezil* (Donepezil*) 5 Mg Tablet, 5 MG PO QHS, #30 TAB 08/28/18 Divalproex Sodium* (Depakote*) 500 Mg Tablet.dr, 500 MG PO BID, #120 TAB 08/28/18 Docusate Sodium* (Colace*) 100 Mg Capsule, 100 MG PO BID PRN for CONSTIPATION, #60 CAP 08/28/18 Atorvastatin Calcium (Atorvastatin Calcium) 10 Mg Tablet, 10 MG PO QHS, #30 TAB 08/28/18 Lorazepam* (Lorazepam*) 1 Mg Tablet, 1 MG PO BID PRN for ANXIETY, #30 TAB 08/28/18 Lactulose* (Lactulose*) 20 Gm/30 Ml Solution, 20 GM PO TID PRN for CONSTIPATION, ML 08/28/18 Trazodone Hcl* (Trazodone Hcl*) 100 Mg Tablet, 100 MG PO QHS, #30 TAB 08/28/18 Quetiapine Fumarate* (Seroquel*) 200 Mg Tablet, 200 MG PO HS, #30 TAB 08/28/18 Sennosides* (Senna Lax*) 8.6 Mg Tablet, 2 TAB PO QHS PRN for CONSTIPATION, TAB 08/28/18 Multivitamins* (Theragran*) 1 Tab Tab, 1 TAB PO DAILY, TAB 08/28/18 Polyethylene Glycol* (Miralax*) 17 Gm Powd.pack, 17 GM PO BID, #60 PACKET 08/28/18 Metoprolol Tartrate* (Lopressor*) 25 Mg Tab, 12.5 MG PO DAILY, #60 TAB HOLD IF SBP<115 OR HR<60 08/28/18 Levothyroxine Sodium* (Levothyroxine Sodium*) 50 Mcg Tablet, 50 MCG PO BEFORE BREAKFAST, #30 TAB 08/28/18 Levetiracetam* (Keppra*) 500 Mg Tablet, 500 MG PO BID, TAB 08/28/18 Gabapentin* (Gabapentin*) 400 Mg Capsule, 400 MG PO TID, #90 CAP 08/28/18 Phenylephrine HCl/[place] Butter* (Preparation H* Suppository) 1 Each Supp.rect, 1 EACH NM DAILY PRN for CONSTIPATION, SUPP.RECT 08/28/18 Mineral Oil* (Fleet* Mineral Oil Enema) 133 Ml Oil, 133 ML NM DAILY PRN for CONSTIPATION, ENEMA 08/28/18 Acetaminophen* (Acetaminophen*) 650 Mg Tablet, 650 MG PO DAILY PRN for PAIN AND OR ELEVATED TEMP, #30 TAB 08/28/18 Bisacodyl* (Bisacodyl*) 5 Mg Tablet.dr, 10 MG PO DAILY PRN for CONSTIPATION, TAB 08/28/18 Medications Current Medications IV Flush (NS 3 ml) 3 ml PER PROTOCOL IV ; Start 10/06/18 at 09:30 Ondansetron HCl (Zofran Inj) 4 mg Q6H PRN IV NAUSEA/VOMITING; Start 10/06/18 at 09:30 Acetaminophen (Tylenol Tab) 650 mg Q6H PRN PO .PAIN 1-3 OR TEMP Last administered on 10/12/18at 08:27; Admin Dose 650 MG; Start 10/06/18 at 09:30 Acetaminophen/ Hydrocodone Bitart ([place] (5/325)) 1 tab Q6H PRN PO .MOD PAIN 4- 6; Start 10/06/18 at 09:30 Docusate Sodium (Colace) 100 mg Q12H PRN PO .CONSTIPATION; Start 10/06/18 at 09:30 Magnesium Hydroxide (Milk Of Mag) 30 ml DAILY PRN PO .CONSTIPATION; Start 10/06/18 at 09:30 Albuterol/ Ipratropium (Duoneb) 3 ml Q4H RESP THERAPY PRN HHN SHORTNESS OF BREATH; Start 10/06/18 at 09:30 Nitroglycerin (Nitroglycerin (Sl Tab) 0.4 Mg) 1 tab Q5M PRN SL ANGINA; Start 10/06/18 at 09:30 Bisacodyl (Dulcolax) 10 mg DAILY PRN PO CONSTIPATION; Start 10/06/18 at 09:30 Donepezil HCl (Aricept) 5 mg QHS PO Last administered on 10/18/18at 20:39; Admin Dose 5 MG; Start 10/06/18 at 21:00 Lactulose (Enulose) 20 gm TID PRN PO CONSTIPATION; Start 10/06/18 at 09:30 Levothyroxine Sodium (Synthroid) 50 mcg BEFORE BREAKFAST PO Last administered on 10/19/18at 06:38; Admin Dose 50 MCG; Start 10/07/18 at 07:00 Mineral Oil (Fleet Mineral Oil Enema) 133 ml DAILY PRN NM CONSTIPATION; Start 10/06/18 at 09:30 Multivitamins Therapeutic (Theragran) 1 tab DAILY PO Last administered on 10/19/18at 08:26; Admin Dose 1 TAB; Start 10/07/18 at 09:00 Norepinephrine 32 mg/Dextrose 250 ml @ 0.47 mls/hr TITRATE IV Last administered on 10/08/18 12:53; Admin Dose 4.69 MLS/HR; Start 10/06/18 at 11:30 Aspirin (Aspirin) 81 mg DAILY NGT Last administered on 10/11/18at 09:35; Admin Dose 81 MG; Start 10/06/18 at 12:30; Status Hold Atorvastatin Calcium (Lipitor) 40 mg DAILY@21 NGT Last administered on 10/18/18at 20:39; Admin Dose 40 MG; Start 10/06/18 at 21:00 Miscellaneous Information (Flu Vaccine Previously Dispensed) FLU VACCINE PREVIOU... NOTE PRN XX NOTE; Start 10/06/18 at 18:00 Midazolam HCl 50 ml @ 0 mls/hr TITRATE IV Last administered on 10/16/18 04:11; Admin Dose 1 MLS/HR; Start 10/08/18 at 10:00 Fentanyl 100 ml @ 2.5 mls/hr TITRATE IV Last administered on 10/10/18 01:01; Admin Dose 2.5 MLS/HR; Start 10/08/18 at 16:30 Amiodarone HCl (Cordarone) 200 mg BID PO Last administered on 10/19/18 08:26; Admin Dose 200 MG; Start 10/09/18 at 21:00 Famotidine (Pepcid) 20 mg DAILY NGT Last administered on 10/19/18 08:27; Admin Dose 20 MG; Start 10/10/18 at 09:00 Phenylephrine HCl 250 ml @ 75 mls/hr TITRATE IV Last administered on 10/12/18 01:38; Admin Dose 6 MLS/HR; Start 10/09/18 at 13:00 Polyethylene Glycol (Miralax) 17 gm BID PRN PO constipation; Start 10/10/18 at 22:00 Metoprolol Tartrate (Lopressor) 25 mg BID PO Last administered on 10/19/18 08:26; Admin Dose 25 MG; Start 10/12/18 at 15:00 Metoprolol Tartrate (Lopressor) 5 mg Q4H PRN IV HR>110 Hold SBP<100; Start 10/12/18 at 15:00 Enoxaparin Sodium (Lovenox) 70 mg DAILY SC Last administered on 10/19/18 08:47; Admin Dose 70 MG; Start 10/14/18 at 09:00 Levetiracetam (Keppra Liquid) 1,000 mg BID GTB Last administered on 10/19/18 08:26; Admin Dose 1,000 MG; Start 10/14/18 at 21:00 Valproate Sodium (Depakene Liquid Cup) 1,000 mg Q6H GTB Last administered on 10/19/18 08:25; Admin Dose 1,000 MG; Start 10/16/18 at 09:00 Lorazepam (Ativan) 1 mg Q4H PRN IV SEIZURES Last administered on 10/16/18 12:02; Admin Dose 1 MG; Start 10/16/18 at 12:00 Cefepime HCl 50 ml @ 100 mls/hr Q12 IVPB Last administered on 10/18/18 20:37; Admin Dose 100 MLS/HR; Start 10/16/18 at 21:00 Morphine Sulfate (morphine) 1 mg Q4H PRN IV .SEVERE PAIN 7-10 Last administered on 10/19/18 08:27; Admin Dose 1 MG; Start 10/16/18 at 15:45 Epoetin Nile (Epogen (Non Esrd/Non Oncology)) 6,000 units MoWeFr@17 SC Last administered on 10/18/18 17:09; Admin Dose 6,000 UNITS; Start 10/18/18 at 17:00 Furosemide (Lasix) 20 mg DAILY@0600 IV Last administered on 10/19/18 06:38; Admin Dose 20 MG; Start 10/18/18 at 12:30 Quetiapine Fumarate (Seroquel) 12.5 mg QID PRN NGT anxiety/agitation Last adm inistered on 10/18/18 14:38; Admin Dose 12.5 MG; Start 10/18/18 at 14:30 Quetiapine Fumarate (Seroquel) 12.5 mg QHS NGT ; Start 10/19/18 at 21:00 Assessment/Plan Assessment/Plan (Daily) 1. Status post septic Shock: likely due to urinary tract infection 2. Respiratory Failure 2/2 #1--now extubated 3. UMBERTO-- pre-renal vs. ATN 2/2 #1 4. NSTEMI: type II 5. Afib with RVR--now in SR 6. History of dementia 7. Anemia RECS: 1. Strict aspiration precautions 2. Continue TFs 3. ST eval 4. PT/OT 5. Continue seroquel; avoid benzos 6. Observe in ICU for 1 more day Critical care time 40 minutes MARICEL REDDY MD Oct 19, 2018 11:53
--- NOTE | 2018-10-19 12:48 | CONS ---
Consult Date/Type/Reason Admit Date/Time Oct 06, 2018 at 09:29 Initial Consult Date 10/06/18 Type of Consultation: Pulm/CCM Requesting Provider: MANUEL ALEMAN Date/Time of Note DATE: 10/19/18 TIME: 12:45 Subjective NO acute events- BP on high side - s/p extubation. Will monitor for now. Add BP meds as needed. ROS: No fever, no chills, no nausea, no vomiting, no diarrhea/constipation - pt confused No recent weight changes No chest pain, no PND, no orthopnea + sob per nurse No dizziness, blurred vision No thirst, no heat or cold intolerance Objective Vitals Vital Signs Date Temp Pulse Resp B/P (MAP) Pulse Ox O2 O2 Flow FiO2 Time Delivery Rate 10/19/18 72 08:00 10/19/18 Nasal 07:45 Cannula 10/19/18 14 166/100 97 07:00 (122) 10/19/18 2.0 04:20 10/19/18 98.3 04:00 10/18/18 30 09:25 Intake and Output 10/18/18 10/18/18 10/19/18 1515:00 23:00 07:00 IntakeIntake Total 265 ml 485 ml 640 ml OutputOutput Total 1750 ml 780 ml 680 ml BalanceBalance -1485 ml -295 ml -40 ml Exam General: WN/WD/NAD, AOx confused HEENT: Unicetric/atraumatic/EOMI (does not follow commands) - NGT in NECK: JVD elevated, no thyromegaly Lymph: no lymphadenopathy HEART: regular with no S3, II/ systolic murmur at apex, PMI L LUNGS: Coarse sounds ABD: soft, NT, ND, +BS : Intact Neuro: non focal SKIN: chronic changes EXT: trace edema Results/Medications Result Diagram: 10/19/186 10/19/18 0426 Results 24 hrs Laboratory Tests Test 10/19/18 04:26 10/19/18 07:00 White Blood Count 5.8 Red Blood Count 2.51 L Hemoglobin 7.8 L Hematocrit 24.6 L Mean Corpuscular Volume 98.0 Mean Corpuscular Hemoglobin 31.1 Mean Corpuscular Hemoglobin Concent 31.7 L Red Cell Distribution Width 14.8 H Platelet Count 372 Mean Platelet Volume 11.3 H Immature Granulocytes % 1.000 H Neutrophils % 71.7 Lymphocytes % 18.8 Monocytes % 7.3 Eosinophils % 0.9 Basophils % 0.3 Nucleated Red Blood Cells % 0.0 Immature Granulocytes # 0.060 H Neutrophils # 4.1 Lymphocytes # 1.1 Monocytes # 0.4 Eosinophils # 0.1 Basophils # 0.0 Nucleated Red Blood Cells # 0.0 Sodium Level 142 Potassium Level 4.4 Chloride Level 109 Carbon Dioxide Level 28 Anion Gap 5 Blood Urea Nitrogen 23 H Creatinine 0.83 Est Glomerular Filtrat Rate mL/min > 60 Glucose Level 90 Calcium Level 8.7 Valproic Acid (Depakene) Level 39 L Blood Gas Specimen Source Blood arterial Arterial Blood Date Drawn 10/19/2018 8:45:38 AM Arterial Blood pH (Temp corrected) 7.482 H Arterial Blood pCO2 (Temp correct) 37.0 Arterial Blood pO2 (Temp corrected) 92.2 Arterial Blood HCO3 27.1 H Arterial Blood Base Excess 3.4 H Arterial Blood Oxygen Saturation 96.9 Greg Test ACCEPTAB Arterial Blood Gas Puncture Site Right Radial Arterial Blood Carboxyhemoglobin 0.3 Arterial Blood Methemoglobin 0.4 Blood Gas A-a O2 Differential 56.6 H Oxyhemoglobin Percent 96.2 Blood Gas Temperature 37.0 Blood Gas Modality NASAL CANNULA FiO2 27.0 Blood Gas Notified Whom MDA Blood Gas Notified Time 10/19/2018 8:56:25 AM Home Meds Active Scripts Vancomycin Hcl (Vancocin) 1 Gm Soln, 500 MG IV Q12 for 7 Days, VIAL 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 08/31/18 Reported Medications Donepezil* (Donepezil*) 5 Mg Tablet, 5 MG PO QHS, #30 TAB 08/28/18 Divalproex Sodium* (Depakote*) 500 Mg Tablet.dr, 500 MG PO BID, #120 TAB 08/28/18 Docusate Sodium* (Colace*) 100 Mg Capsule, 100 MG PO BID PRN for CONSTIPATION, #60 CAP 08/28/18 Atorvastatin Calcium (Atorvastatin Calcium) 10 Mg Tablet, 10 MG PO QHS, #30 TAB 08/28/18 Lorazepam* (Lorazepam*) 1 Mg Tablet, 1 MG PO BID PRN for ANXIETY, #30 TAB 08/28/18 Lactulose* (Lactulose*) 20 Gm/30 Ml Solution, 20 GM PO TID PRN for CONSTIPATION, ML 08/28/18 Trazodone Hcl* (Trazodone Hcl*) 100 Mg Tablet, 100 MG PO QHS, #30 TAB 08/28/18 Quetiapine Fumarate* (Seroquel*) 200 Mg Tablet, 200 MG PO HS, #30 TAB 08/28/18 Sennosides* (Senna Lax*) 8.6 Mg Tablet, 2 TAB PO QHS PRN for CONSTIPATION, TAB 08/28/18 Multivitamins* (Theragran*) 1 Tab Tab, 1 TAB PO DAILY, TAB 08/28/18 Polyethylene Glycol* (Miralax*) 17 Gm Powd.pack, 17 GM PO BID, #60 PACKET 08/28/18 Metoprolol Tartrate* (Lopressor*) 25 Mg Tab, 12.5 MG PO DAILY, #60 TAB HOLD IF SBP<115 OR HR<60 08/28/18 Levothyroxine Sodium* (Levothyroxine Sodium*) 50 Mcg Tablet, 50 MCG PO BEFORE BREAKFAST, #30 TAB 08/28/18 Levetiracetam* (Keppra*) 500 Mg Tablet, 500 MG PO BID, TAB 08/28/18 Gabapentin* (Gabapentin*) 400 Mg Capsule, 400 MG PO TID, #90 CAP 08/28/18 Phenylephrine HCl/[place] Butter* (Preparation H* Suppository) 1 Each Supp.rect, 1 EACH SD DAILY PRN for CONSTIPATION, SUPP.RECT 08/28/18 Mineral Oil* (Fleet* Mineral Oil Enema) 133 Ml Oil, 133 ML SD DAILY PRN for CONSTIPATION, ENEMA 08/28/18 Acetaminophen* (Acetaminophen*) 650 Mg Tablet, 650 MG PO DAILY PRN for PAIN AND OR ELEVATED TEMP, #30 TAB 08/28/18 Bisacodyl* (Bisacodyl*) 5 Mg Tablet.dr, 10 MG PO DAILY PRN for CONSTIPATION, TAB 08/28/18 Medications Current Medications IV Flush (NS 3 ml) 3 ml PER PROTOCOL IV ; Start 10/06/18 at 09:30 Ondansetron HCl (Zofran Inj) 4 mg Q6H PRN IV NAUSEA/VOMITING; Start 10/06/18 at 09:30 Acetaminophen (Tylenol Tab) 650 mg Q6H PRN PO .PAIN 1-3 OR TEMP Last administered on 10/12/18at 08:27; Admin Dose 650 MG; Start 10/06/18 at 09:30 Acetaminophen/ Hydrocodone Bitart ([place] (5/325)) 1 tab Q6H PRN PO .MOD PAIN 4- 6; Start 10/06/18 at 09:30 Docusate Sodium (Colace) 100 mg Q12H PRN PO .CONSTIPATION; Start 10/06/18 at 09:30 Magnesium Hydroxide (Milk Of Mag) 30 ml DAILY PRN PO .CONSTIPATION; Start 10/06/18 at 09:30 Albuterol/ Ipratropium (Duoneb) 3 ml Q4H RESP THERAPY PRN HHN SHORTNESS OF MAIA ATH; Start 10/06/18 at 09:30 Nitroglycerin (Nitroglycerin (Sl Tab) 0.4 Mg) 1 tab Q5M PRN SL ANGINA; Start 10/06/18 at 09:30 Bisacodyl (Dulcolax) 10 mg DAILY PRN PO CONSTIPATION; Start 10/06/18 at 09:30 Donepezil HCl (Aricept) 5 mg QHS PO Last administered on 10/18/18at 20:39; Admin Dose 5 MG; Start 10/06/18 at 21:00 Lactulose (Enulose) 20 gm TID PRN PO CONSTIPATION; Start 10/06/18 at 09:30 Levothyroxine Sodium (Synthroid) 50 mcg BEFORE BREAKFAST PO Last administered on 10/19/18at 06:38; Admin Dose 50 MCG; Start 10/07/18 at 07:00 Mineral Oil (Fleet Mineral Oil Enema) 133 ml DAILY PRN SD CONSTIPATION; Start 10/06/18 at 09:30 Multivitamins Therapeutic (Theragran) 1 tab DAILY PO Last administered on 10/19/18at 08:26; Admin Dose 1 TAB; Start 10/07/18 at 09:00 Norepinephrine 32 mg/Dextrose 250 ml @ 0.47 mls/hr TITRATE IV Last administered on 10/08/18at 12:53; Admin Dose 4.69 MLS/HR; Start 10/06/18 at 11:30 Aspirin (Aspirin) 81 mg DAILY NGT Last administered on 10/11/18 09:35; Admin Dose 81 MG; Start 10/06/18 at 12:30; Status Hold Atorvastatin Calcium (Lipitor) 40 mg DAILY@21 NGT Last administered on 10/18/18 20:39; Admin Dose 40 MG; Start 10/06/18 at 21:00 Miscellaneous Information (Flu Vaccine Previously Dispensed) FLU VACCINE PREVIOU... NOTE PRN XX NOTE; Start 10/06/18 at 18:00 Midazolam HCl 50 ml @ 0 mls/hr TITRATE IV Last administered on 10/16/18 04:11; Admin Dose 1 MLS/HR; Start 10/08/18 at 10:00 Fentanyl 100 ml @ 2.5 mls/hr TITRATE IV Last administered on 10/10/18 01:01; Admin Dose 2.5 MLS/HR; Start 10/08/18 at 16:30 Amiodarone HCl (Cordarone) 200 mg BID PO Last administered on 10/19/18 08:26; Admin Dose 200 MG; Start 10/09/18 at 21:00 Famotidine (Pepcid) 20 mg DAILY NGT Last administered on 10/19/18 08:27; Admin Dose 20 MG; Start 10/10/18 at 09:00 Phenylephrine HCl 250 ml @ 75 mls/hr TITRATE IV Last administered on 10/12/18 01:38; Admin Dose 6 MLS/HR; Start 10/09/18 at 13:00 Polyethylene Glycol (Miralax) 17 gm BID PRN PO constipation; Start 10/10/18 at 22:00 Metoprolol Tartrate (Lopressor) 25 mg BID PO Last administered on 10/19/18 08:26; Admin Dose 25 MG; Start 10/12/18 at 15:00 Metoprolol Tartrate (Lopressor) 5 mg Q4H PRN IV HR>110 Hold SBP<100; Start 10/12/18 at 15:00 Enoxaparin Sodium (Lovenox) 70 mg DAILY SC Last administered on 10/19/18 08:47; Admin Dose 70 MG; Start 10/14/18 at 09:00 Levetiracetam (Keppra Liquid) 1,000 mg BID GTB Last administered on 10/19/18 08:26; Admin Dose 1,000 MG; Start 10/14/18 at 21:00 Valproate Sodium (Depakene Liquid Cup) 1,000 mg Q6H GTB Last administered on 10/19/18 08:25; Admin Dose 1,000 MG; Start 10/16/18 at 09:00 Lorazepam (Ativan) 1 mg Q4H PRN IV SEIZURES Last administered on 10/16/18 12:02; Admin Dose 1 MG; Start 10/16/18 at 12:00 Cefepime HCl 50 ml @ 100 mls/hr Q12 IVPB Last administered on 10/18/18 20:37; Admin Dose 100 MLS/HR; Start 10/16/18 at 21:00 Morphine Sulfate (morphine) 1 mg Q4H PRN IV .SEVERE PAIN 7-10 Last administered on 10/19/18 08:27; Admin Dose 1 MG; Start 10/16/18 at 15:45 Epoetin Nile (Epogen (Non Esrd/Non Oncology)) 6,000 units MoWeFr@17 SC Last administered on 10/18/18 17:09; Admin Dose 6,000 UNITS; Start 10/18/18 at 17:00 Furosemide (Lasix) 20 mg DAILY@0600 IV Last administered on 10/19/18 06:38; Admin Dose 20 MG; Start 10/18/18 at 12:30 Quetiapine Fumarate (Seroquel) 12.5 mg QID PRN NGT anxiety/agitation Last administered on 10/18/18 14:38; Admin Dose 12.5 MG; Start 10/18/18 at 14:30 Quetiapine Fumarate (Seroquel) 12.5 mg QHS NGT ; Start 10/19/18 at 21:00 Assessment/Plan Hospital Course (Demo Recall) 1. CAD - with non-ST elevation myocardial infarction, no CP now - med Rx advised. 2. Atrial fibrillation with rapid ventricular response. Converted to sinus rhythm, now back in a. fib - SINUS NOW. Rate controlled. 3. Hypertension. The patient is on Levophed. Continue to adjust medications as needed. She appears to be responding to IV hydration.TREATED. 4. Infection. Continue the patient on antibiotics. NO fevers. 5. Dementia. The patient does report vascular dementia. Defer to primary team for management. 6. Acute renal failure. Continue to hydrate the patient. Renal team will follow. CR hig, but good urine output now. 7. Resp failure - extubated now, con't to wean. ZANE JACOME MD Oct 19, 2018 12:48
[2018-10-19] MEDS: BALSAM PERU/CASTOR OIL 60 GM TUBE TOP SCH (14:16)
[2018-10-19] MEDS: CEFEPIME 1GM/50 ML (PMX) 50 ML IVPB SCH ×2 (15:11→21:36)
--- NOTE | 2018-10-19 16:17 | CONS ---
Assessment/Plan Assessment/Plan Assessment/Plan (Daily) 1. Non Oliguric Acute kidney injury due to ATN from septic shock - Improving 2. Septic shock due to UTI 3. acute UTI with Urine Cx growing E.Coli 4. Acute hypoxic respiratory failure intubated on ventilator - s/p Extubation on 10/18/18 5. H/o HTN 6 H/o HL 7. H/o Hypothyroidism 8. E.Coli bacteremia Plan: Na 143, BUN/Cr 23/0.8, pt remains intubated, Hb 7.8- on epogen 6000 units MWF for anemia extubated today, post extubated, pt remains agitated and confused will follow up Consultation Date/Type/Reason Admit Date/Time Oct 06, 2018 at 09:29 Initial Consult Date 10/06/18 Type of Consult NEPHROLOGY Requesting Provider: MANUEL ALEMAN Date/Time of Note DATE: 10/19/18 TIME: 16:17 24 HR Interval Summary Free Text/Dictation pt extubated yesterday, pt remains confused, agitated, BUN/Cr normal, Hb 7.8 Exam/Review of Systems Exam Vitals Vital Signs Date Temp Pulse Resp B/P (MAP) Pulse Ox O2 O2 Flow FiO2 Time Delivery Rate 10/19/18 76 22 140/74 98 Mechanical 14:00 (96) Ventilator 10/19/18 98.1 08:00 10/19/18 2.0 04:20 10/18/18 30 09:25 Intake and Output 10/18/18 10/18/18 10/19/18 1515:00 23:00 07:00 IntakeIntake Total 265 ml 485 ml 640 ml OutputOutput Total 1750 ml 780 ml 680 ml BalanceBalance -1485 ml -295 ml -40 ml Constitutional: alert, other (but agitated, confused, S/p Extubation ) Eyes: nl conjunctiva Neck: supple Respiratory: clear to auscultation, normal air movement, diminished breath sounds Cardiovascular: regular rate and rhythm, nl pulses Gastrointestinal: soft, non-tender Musculoskeletal: nl extremities to inspection, swelling Neurological: other (agitated confused, uncooperative for neuro exam ) Results Result Diagram: 10/19/18 0426 10/19/18 0426 Results 24hrs Laboratory Tests Test 10/19/18 04:26 10/19/18 07:00 White Blood Count 5.8 Red Blood Count 2.51 L Hemoglobin 7.8 L Hematocrit 24.6 L Mean Corpuscular Volume 98.0 Mean Corpuscular Hemoglobin 31.1 Mean Corpuscular Hemoglobin Concent 31.7 L Red Cell Distribution Width 14.8 H Platelet Count 372 Mean Platelet Volume 11.3 H Immature Granulocytes % 1.000 H Neutrophils % 71.7 Lymphocytes % 18.8 Monocytes % 7.3 Eosinophils % 0.9 Basophils % 0.3 Nucleated Red Blood Cells % 0.0 Immature Granulocytes # 0.060 H Neutrophils # 4.1 Lymphocytes # 1.1 Monocytes # 0.4 Eosinophils # 0.1 Basophils # 0.0 Nucleated Red Blood Cells # 0.0 Sodium Level 142 Potassium Level 4.4 Chloride Level 109 Carbon Dioxide Level 28 Anion Gap 5 Blood Urea Nitrogen 23 H Creatinine 0.83 Est Glomerular Filtrat Rate mL/min > 60 Glucose Level 90 Calcium Level 8.7 Valproic Acid (Depakene) Level 39 L Blood Gas Specimen Source Blood arterial Arterial Blood Date Drawn 10/19/2018 8:45:38 AM Arterial Blood pH (Temp corrected) 7.482 H Arterial Blood pCO2 (Temp correct) 37.0 Arterial Blood pO2 (Temp corrected) 92.2 Arterial Blood HCO3 27.1 H Arterial Blood Base Excess 3.4 H Arterial Blood Oxygen Saturation 96.9 Greg Test ACCEPTAB Arterial Blood Gas Puncture Site Right Radial Arterial Blood Carboxyhemoglobin 0.3 Arterial Blood Methemoglobin 0.4 Blood Gas A-a O2 Differential 56.6 H Oxyhemoglobin Percent 96.2 Blood Gas Temperature 37.0 Blood Gas Modality NASAL CANNULA FiO2 27.0 Blood Gas Notified Whom MDA Blood Gas Notified Time 10/19/2018 8:56:25 AM Medications Medication Current Medications IV Flush (NS 3 ml) 3 ml PER PROTOCOL IV ; Start 10/06/18 at 09:30 Ondansetron HCl (Zofran Inj) 4 mg Q6H PRN IV NAUSEA/VOMITING; Start 10/06/18 at 09:30 Acetaminophen (Tylenol Tab) 650 mg Q6H PRN PO .PAIN 1-3 OR TEMP Last administered on 10/12/18at 08:27; Admin Dose 650 MG; Start 10/06/18 at 09:30 Acetaminophen/ Hydrocodone Bitart ([place] (5/325)) 1 tab Q6H PRN PO .MOD PAIN 4- 6; Start 10/06/18 at 09:30 Docusate Sodium (Colace) 100 mg Q12H PRN PO .CONSTIPATION; Start 10/06/18 at 09:30 Magnesium Hydroxide (Milk Of Mag) 30 ml DAILY PRN PO .CONSTIPATION; Start 10/06/18 at 09:30 Albuterol/ Ipratropium (Duoneb) 3 ml Q4H RESP THERAPY PRN HHN SHORTNESS OF BREATH; Start 10/06/18 at 09:30 Nitroglycerin (Nitroglycerin (Sl Tab) 0.4 Mg) 1 tab Q5M PRN SL ANGINA; Start 10/06/18 at 09:30 Bisacodyl (Dulcolax) 10 mg DAILY PRN PO CONSTIPATION; Start 10/06/18 at 09:30 Donepezil HCl (Aricept) 5 mg QHS PO Last administered on 10/18/18at 20:39; Admin Dose 5 MG; Start 10/06/18 at 21:00 Lactulose (Enulose) 20 gm TID PRN PO CONSTIPATION; Start 10/06/18 at 09:30 Levothyroxine Sodium (Synthroid) 50 mcg BEFORE BREAKFAST PO Last administered on 10/19/18 06:38; Admin Dose 50 MCG; Start 10/07/18 at 07:00 Mineral Oil (Fleet Mineral Oil Enema) 133 ml DAILY PRN [place] CONSTIPATION; Start 10/06/18 at 09:30 Multivitamins Therapeutic (Theragran) 1 tab DAILY PO Last administered on 10/19/18at 08:26; Admin Dose 1 TAB; Start 10/07/18 at 09:00 Norepinephrine 32 mg/Dextrose 250 ml @ 0.47 mls/hr TITRATE IV Last administered on 10/08/18 12:53; Admin Dose 4.69 MLS/HR; Start 10/06/18 at 11:30 Aspirin (Aspirin) 81 mg DAILY NGT Last administered on 10/11/18 09:35; Admin Dose 81 MG; Start 10/06/18 at 12:30; Status Hold Atorvastatin Calcium (Lipitor) 40 mg DAILY@21 NGT Last administered on 10/18/18 20:39; Admin Dose 40 MG; Start 10/06/18 at 21:00 Miscellaneous Information (Flu Vaccine Previously Dispensed) FLU VACCINE PREVIOU... NOTE PRN XX NOTE; Start 10/06/18 at 18:00 Midazolam HCl 50 ml @ 0 mls/hr TITRATE IV Last administered on 10/16/18 04:11; Admin Dose 1 MLS/HR; Start 10/08/18 at 10:00 Fentanyl 100 ml @ 2.5 mls/hr TITRATE IV Last administered on 10/10/18 01:01; Admin Dose 2.5 MLS/HR; Start 10/08/18 at 16:30 Amiodarone HCl (Cordarone) 200 mg BID PO Last administered on 10/19/18 08:26; Admin Dose 200 MG; Start 10/09/18 at 21:00 Famotidine (Pepcid) 20 mg DAILY NGT Last administered on 10/19/18 08:27; Admin Dose 20 MG; Start 10/10/18 at 09:00 Phenylephrine HCl 250 ml @ 75 mls/hr TITRATE IV Last administered on 10/12/18 01:38; Admin Dose 6 MLS/HR; Start 10/09/18 at 13:00 Polyethylene Glycol (Miralax) 17 gm BID PRN PO constipation; Start 10/10/18 at 22:00 Metoprolol Tartrate (Lopressor) 25 mg BID PO Last administered on 10/19/18 08:26; Admin Dose 25 MG; Start 10/12/18 at 15:00 Metoprolol Tartrate (Lopressor) 5 mg Q4H PRN IV HR>110 Hold SBP<100; Start 10/12/18 at 15:00 Enoxaparin Sodium (Lovenox) 70 mg DAILY SC Last administered on 10/19/18 08:47; Admin Dose 70 MG; Start 10/14/18 at 09:00 Levetiracetam (Keppra Liquid) 1,000 mg BID GTB Last administered on 10/19/18 08:26; Admin Dose 1,000 MG; Start 10/14/18 at 21:00 Valproate Sodium (Depakene Liquid Cup) 1,000 mg Q6H GTB Last administered on 10/19/18 15:12; Admin Dose 1,000 MG; Start 10/16/18 at 09:00 Lorazepam (Ativan) 1 mg Q4H PRN IV SEIZURES Last administered on 10/16/18 12:02; Admin Dose 1 MG; Start 10/16/18 at 12:00 Cefepime HCl 50 ml @ 100 mls/hr Q12 IVPB Last administered on 10/19/18 15:11; Admin Dose 100 MLS/HR; Start 10/16/18 at 21:00 Morphine Sulfate (morphine) 1 mg Q4H PRN IV .SEVERE PAIN 7-10 Last administered on 10/19/18 08:27; Admin Dose 1 MG; Start 10/16/18 at 15:45 Epoetin Nile (Epogen (Non Esrd/Non Oncology)) 6,000 units MoWeFr@17 SC Last administered on 10/18/18 17:09; Admin Dose 6,000 UNITS; Start 10/18/18 at 17:00 Furosemide (Lasix) 20 mg DAILY@0600 IV Last administered on 10/19/18 06:38; Admin Dose 20 MG; Start 10/18/18 at 12:30 Quetiapine Fumarate (Seroquel) 12.5 mg QID PRN NGT anxiety/agitation Last administered on 10/18/18 14:38; Admin Dose 12.5 MG; Start 10/18/18 at 14:30 Quetiapine Fumarate (Seroquel) 12.5 mg QHS NGT ; Start 10/19/18 at 21:00 VALARIE BENNETT MD Oct 19, 2018 16:17
[2018-10-19] MEDS: ATORVASTATIN 40 MG TAB NGT SCH (21:36)
[2018-10-19] MEDS: QUETIAPINE 25 MG TAB NGT SCH (21:37)
[2018-10-19] MEDS: DONEPEZIL 5 MG TAB PO SCH (21:39)
[2018-10-19] MEDS: LORAZEPAM 2 MG INJ IV PRN (21:47)
[2018-10-20] VITALS (26 sets, daily range): BP systolic 96–180; BP diastolic 48–131; PULSE 72–89; RESP 13–27
[2018-10-20] MEDS: VALPROIC ACID LIQUID CUP 250 MG/5 ML CUP GTB SCH ×4 (03:52→22:36)
[2018-10-20] MEDS: FUROSEMIDE 20 MG INJ IV SCH (05:56)
[2018-10-20] MEDS: LEVOTHYROXINE 50 MCG TAB PO SCH (07:40)
[2018-10-20] MEDS: FAMOTIDINE 20 MG TAB NGT SCH (08:06)
[2018-10-20] MEDS: MULTIVITAMINS THERAPEUTIC TAB PO SCH (08:06)
[2018-10-20] MEDS: METOPROLOL 25 MG TAB PO SCH ×2 (08:06→20:39)
[2018-10-20] MEDS: AMIODARONE 200 MG TAB PO SCH ×2 (08:06→20:38)
[2018-10-20] MEDS: CEFEPIME 1GM/50 ML (PMX) 50 ML IVPB SCH ×2 (08:07→20:39)
[2018-10-20] MEDS: BALSAM PERU/CASTOR OIL 60 GM TUBE TOP SCH (08:07)
[2018-10-20] MEDS: LEVETIRACETAM (100 MG/ML) 5ML CUP GTB SCH ×2 (08:07→20:37)
[2018-10-20] MEDS: ENOXAPARIN 100 MG/ML SYG SC SCH (08:16)
[2018-10-20] MEDS: LORAZEPAM 2 MG INJ IV PRN (08:20)
--- NOTE | 2018-10-20 08:45 | CONS ---
Consult Date/Type/Reason Admit Date/Time Oct 06, 2018 at 09:29 Initial Consult Date 10/06/18 Type of Consultation: Pulm/CCM Requesting Provider: MANUEL ALEMAN Date/Time of Note DATE: 10/20/18 TIME: 08:43 Subjective No acute events - pt extubated - no CP noted - confused - con't med rx now ROS: No fever, no chills, no nausea, no vomiting, no diarrhea/constipation -per nurse + SOB, agitation Objective Vitals Vital Signs Date Temp Pulse Resp B/P (MAP) Pulse Ox O2 O2 Flow FiO2 Time Delivery Rate 10/20/18 97.9 77 21 128/75 96 Mechanical 07:30 (92) Ventilator 10/20/18 2.0 03:16 10/18/18 30 09:25 Intake and Output 10/19/18 10/19/18 10/20/18 1515:00 23:00 07:00 IntakeIntake Total 540 ml 430 ml 425 ml OutputOutput Total 1070 ml 560 ml 490 ml BalanceBalance -530 ml -130 ml -65 ml Exam General: WN/WD/NAD, AOx 0 - eyes open HEENT: Unicetric/atraumatic/EOMI (does not follow commands) - ngt NECK: JVD elevated, no thyromegaly Lymph: no lymphadenopathy HEART: regular with no S3, II/ systolic murmur at apex LUNGS: Coarse sounds ABD: soft, NT, ND, +BS : Intact Neuro: non focal SKIN: chronic changes EXT: trace edema Results/Medications Result Diagram: 10/20/18 0439 10/20/18 0439 Results 24 hrs Laboratory Tests Test 10/20/18 04:39 White Blood Count 5.8 Red Blood Count 2.61 L Hemoglobin 8.0 L Hematocrit 25.7 L Mean Corpuscular Volume 98.5 Mean Corpuscular Hemoglobin 30.7 Mean Corpuscular Hemoglobin Concent 31.1 L Red Cell Distribution Width 15.2 H Platelet Count 377 Mean Platelet Volume 11.3 H Immature Granulocytes % 0.700 H Neutrophils % 69.8 Lymphocytes % 21.6 Monocytes % 6.5 Eosinophils % 0.7 Basophils % 0.7 Nucleated Red Blood Cells % 0.0 Immature Granulocytes # 0.040 H Neutrophils # 4.1 Lymphocytes # 1.3 Monocytes # 0.4 Eosinophils # 0.0 Basophils # 0.0 Nucleated Red Blood Cells # 0.0 Sodium Level 142 Potassium Level 4.2 Chloride Level 109 Carbon Dioxide Level 26 Anion Gap 7 Blood Urea Nitrogen 21 H Creatinine 0.78 Est Glomerular Filtrat Rate mL/min > 60 Glucose Level 107 Calcium Level 8.7 Valproic Acid (Depakene) Level 100 Home Meds Active Scripts Vancomycin Hcl (Vancocin) 1 Gm Soln, 500 MG IV Q12 for 7 Days, VIAL 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 [employer] 08/31/18 Aztreonam (AZTREONAM) 1 Gm Vial, 1 GM IV* Q12 for 7 Days, VIAL Prov:NUGENTANA CRISTINAA V. MA[employer] T[employer] ADVISOR 08/31/18 Reported Medications Donepezil* (Donepezil*) 5 Mg Tablet, 5 MG PO QHS, #30 TAB 08/28/18 Divalproex Sodium* (Depakote*) 500 Mg Tablet.dr, 500 MG PO BID, #120 TAB 08/28/18 Docusate Sodium* (Colace*) 100 Mg Capsule, 100 MG PO BID PRN for CONSTIPATION, #60 CAP 08/28/18 Atorvastatin Calcium (Atorvastatin Calcium) 10 Mg Tablet, 10 MG PO QHS, #30 TAB 08/28/18 Lorazepam* (Lorazepam*) 1 Mg Tablet, 1 MG PO BID PRN for ANXIETY, #30 TAB 08/28/18 Lactulose* (Lactulose*) 20 Gm/30 Ml Solution, 20 GM PO TID PRN for CONSTIPATION, ML 08/28/18 Trazodone Hcl* (Trazodone Hcl*) 100 Mg Tablet, 100 MG PO QHS, #30 TAB 08/28/18 Quetiapine Fumarate* (Seroquel*) 200 Mg Tablet, 200 MG PO HS, #30 TAB 08/28/18 Sennosides* (Senna Lax*) 8.6 Mg Tablet, 2 TAB PO QHS PRN for CONSTIPATION, TAB 08/28/18 Multivitamins* (Theragran*) 1 Tab Tab, 1 TAB PO DAILY, TAB 08/28/18 Polyethylene Glycol* (Miralax*) 17 Gm Powd.pack, 17 GM PO BID, #60 PACKET 08/28/18 Metoprolol Tartrate* (Lopressor*) 25 Mg Tab, 12.5 MG PO DAILY, #60 TAB HOLD IF SBP<115 OR HR<60 08/28/18 Levothyroxine Sodium* (Levothyroxine Sodium*) 50 Mcg Tablet, 50 MCG PO BEFORE BREAKFAST, #30 TAB 08/28/18 Levetiracetam* (Keppra*) 500 Mg Tablet, 500 MG PO BID, TAB 08/28/18 Gabapentin* (Gabapentin*) 400 Mg Capsule, 400 MG PO TID, #90 CAP 08/28/18 Phenylephrine HCl/[place] Butter* (Preparation H* Suppository) 1 Each Supp.rect, 1 EACH CO DAILY PRN for CONSTIPATION, SUPP.RECT 08/28/18 Mineral Oil* (Fleet* Mineral Oil Enema) 133 Ml Oil, 133 ML CO DAILY PRN for CONSTIPATION, ENEMA 08/28/18 Acetaminophen* (Acetaminophen*) 650 Mg Tablet, 650 MG PO DAILY PRN for PAIN AND OR ELEVATED TEMP, #30 TAB 08/28/18 Bisacodyl* (Bisacodyl*) 5 Mg Tablet.dr, 10 MG PO DAILY PRN for CONSTIPATION, TAB 08/28/18 Medications Current Medications IV Flush (NS 3 ml) 3 ml PER PROTOCOL IV ; Start 10/06/18 at 09:30 Ondansetron HCl (Zofran Inj) 4 mg Q6H PRN IV NAUSEA/VOMITING; Start 10/06/18 at 09:30 Acetaminophen (Tylenol Tab) 650 mg Q6H PRN PO .PAIN 1-3 OR TEMP Last administered on 10/12/18at 08:27; Admin Dose 650 MG; Start 10/06/18 at 09:30 Acetaminophen/ Hydrocodone Bitart ([place] (5/325)) 1 tab Q6H PRN PO .MOD PAIN 4- 6; Start 10/06/18 at 09:30 Docusate Sodium (Colace) 100 mg Q12H PRN PO .CONSTIPATION; Start 10/06/18 at 09:30 Magnesium Hydroxide (Milk Of Mag) 30 ml DAILY PRN PO .CONSTIPATION; Start 10/06/18 at 09:30 Albuterol/ Ipratropium (Duoneb) 3 ml Q4H RESP THERAPY PRN HHN SHORTNESS OF BREATH; Start 10/06/18 at 09:30 Nitroglycerin (Nitroglycerin (Sl Tab) 0.4 Mg) 1 tab Q5M PRN SL ANGINA; Start 10/06/18 at 09:30 Bisacodyl (Dulcolax) 10 mg DAILY PRN PO CONSTIPATION; Start 10/06/18 at 09:30 Donepezil HCl (Aricept) 5 mg QHS PO Last administered on 10/19/18 21:39; Admin Dose 5 MG; Start 10/06/18 at 21:00 Lactulose (Enulose) 20 gm TID PRN PO CONSTIPATION; Start 10/06/18 at 09:30 Levothyroxine Sodium (Synthroid) 50 mcg BEFORE BREAKFAST PO Last administered on 10/20/18 07:40; Admin Dose 50 MCG; Start 10/07/18 at 07:00 Mineral Oil (Fleet Mineral Oil Enema) 133 ml DAILY PRN [place] CONSTIPATION; Start 10/06/18 at 09:30 Multivitamins Therapeutic (Theragran) 1 tab DAILY PO Last administered on 10/20/18 08:06; Admin Dose 1 TAB; Start 10/07/18 at 09:00 Norepinephrine 32 mg/Dextrose 250 ml @ 0.47 mls/hr TITRATE IV Last administered on 10/08/18 12:53; Admin Dose 4.69 MLS/HR; Start 10/06/18 at 11:30 Aspirin (Aspirin) 81 mg DAILY NGT Last administered on 10/11/18 09:35; Admin Dose 81 MG; Start 10/06/18 at 12:30; Status Hold Atorvastatin Calcium (Lipitor) 40 mg DAILY@21 NGT Last administered on 10/19/18 21:36; Admin Dose 40 MG; Start 10/06/18 at 21:00 Miscellaneous Information (Flu Vaccine Previously Dispensed) FLU VACCINE PREVIOU... NOTE PRN XX NOTE; Start 10/06/18 at 18:00 Midazolam HCl 50 ml @ 0 mls/hr TITRATE IV Last administered on 10/16/18 04:11; Admin Dose 1 MLS/HR; Start 10/08/18 at 10:00 Fentanyl 100 ml @ 2.5 mls/hr TITRATE IV Last administered on 10/10/18 01:01; Admin Dose 2.5 MLS/HR; Start 10/08/18 at 16:30 Amiodarone HCl (Cordarone) 200 mg BID PO Last administered on 10/20/18 08:06; Admin Dose 200 MG; Start 10/09/18 at 21:00 Famotidine (Pepcid) 20 mg DAILY NGT Last administered on 10/20/18 08:06; Admin Dose 20 MG; Start 10/10/18 at 09:00 Phenylephrine HCl 250 ml @ 75 mls/hr TITRATE IV Last administered on 10/12/18 01:38; Admin Dose 6 MLS/HR; Start 10/09/18 at 13:00 Polyethylene Glycol (Miralax) 17 gm BID PRN PO constipation; Start 10/10/18 at 22:00 Metoprolol Tartrate (Lopressor) 25 mg BID PO Last administered on 10/20/18 08:06; Admin Dose 25 MG; Start 10/12/18 at 15:00 Metoprolol Tartrate (Lopressor) 5 mg Q4H PRN IV HR>110 Hold SBP<100; Start 10/12/18 at 15:00 Enoxaparin Sodium (Lovenox) 70 mg DAILY SC Last administered on 10/20/18 08:16; Admin Dose 70 MG; Start 10/14/18 at 09:00 Levetiracetam (Keppra Liquid) 1,000 mg BID GTB Last administered on 10/20/18 08:07; Admin Dose 1,000 MG; Start 10/14/18 at 21:00 Valproate Sodium (Depakene Liquid Cup) 1,000 mg Q6H GTB Last administered on 10/20/18 08:07; Admin Dose 1,000 MG; Start 10/16/18 at 09:00 Lorazepam (Ativan) 1 mg Q4H PRN IV SEIZURES Last administered on 10/20/18 08:20; Admin Dose 1 MG; Start 10/16/18 at 12:00 Cefepime HCl 50 ml @ 100 mls/hr Q12 IVPB Last administered on 10/20/18 08:07; Admin Dose 100 MLS/HR; Start 10/16/18 at 21:00 Morphine Sulfate (morphine) 1 mg Q4H PRN IV .SEVERE PAIN 7-10 Last administered on 10/19/18 08:27; Admin Dose 1 MG; Start 10/16/18 at 15:45 Epoetin Nile (Epogen (Non Esrd/Non Oncology)) 6,000 units MoWeFr@17 SC Last administered on 10/18/18at 17:09; Admin Dose 6,000 UNITS; Start 10/18/18 at 17:00 Furosemide (Lasix) 20 mg DAILY@0600 IV Last administered on 10/20/18at 05:56; Admin Dose 20 MG; Start 10/18/18 at 12:30 Quetiapine Fumarate (Seroquel) 12.5 mg QID PRN NGT anxiety/agitation Last ad ministered on 10/18/18at 14:38; Admin Dose 12.5 MG; Start 10/18/18 at 14:30 Quetiapine Fumarate (Seroquel) 12.5 mg QHS NGT Last administered on 10/19/18at 21:37; Admin Dose 12.5 MG; Start 10/19/18 at 21:00 Assessment/Plan Hospital Course (Demo Recall) 1. CAD - with non-ST elevation myocardial infarction, no CP now - med Rx advised. NO CP now - med Rx now. 2. Atrial fibrillation with rapid ventricular response. Converted to sinus rhythm, now back in a. fib - SINUS NOW. Rate controlled. 3. Hypertension. The patient is on Levophed. Continue to adjust medications as needed. She appears to be responding to IV hydration.TREATED. 4. Infection. Continue the patient on antibiotics. NO fevers. On meds. WBC normalized. 5. Dementia. The patient does report vascular dementia. Defer to primary team for management. 6. Acute renal failure. Continue to hydrate the patient. Renal team will follow. CR better 0.78, good urine output now. 7. Resp failure - extubated now, con't Rx. ZANE JACOME MD Oct 20, 2018 08:45
--- NOTE | 2018-10-20 08:54 | CONS ---
Assessment/Plan Assessment/Plan Assessment/Plan (Daily) 1. Non Oliguric Acute kidney injury due to ATN from septic shock - Improving 2. Septic shock due to UTI 3. acute UTI with Urine Cx growing E.Coli 4. Acute hypoxic respiratory failure intubated on ventilator - s/p Extubation on 10/18/18 5. H/o HTN 6 H/o HL 7. H/o Hypothyroidism 8. E.Coli bacteremia Plan: Na 142, BUN/Cr 21/0.78 pt remains intubated, Hb 8.0- on epogen 6000 units MWF for anemia remains confused, lot of secretions suctiones, IV metoprolol and hydralazine given for elevated BP will follow up Consultation Date/Type/Reason Admit Date/Time Oct 06, 2018 at 09:29 Initial Consult Date 10/06/18 Type of Consult NEPHROLOGY Requesting Provider: MANUEL ALEMAN Date/Time of Note DATE: 10/20/18 TIME: 08:54 24 HR Interval Summary Free Text/Dictation remains confused, lot of secretions suctiones, IV metoprolol and hydralazine given for elevated BP Exam/Review of Systems Exam Vitals Vital Signs Date Temp Pulse Resp B/P (MAP) Pulse Ox O2 O2 Flow FiO2 Time Delivery Rate 10/20/18 97.9 77 21 128/75 96 Mechanical 07:30 (92) Ventilator 10/20/18 2.0 03:16 10/18/18 30 09:25 Intake and Output 10/19/18 10/19/18 10/20/18 1414:59 22:59 06:59 IntakeIntake Total 640 ml 430 ml 480 ml OutputOutput Total 1250 ml 600 ml 570 ml BalanceBalance -610 ml -170 ml -90 ml Exam Constitutional: alert, other (but agitated, confused, S/p Extubation ) Eyes: nl conjunctiva Neck: supple Respiratory: clear to auscultation, normal air movement, diminished breath sounds Cardiovascular: regular rate and rhythm, nl pulses Gastrointestinal: soft, non-tender Musculoskeletal: nl extremities to inspection, swelling Neurological: other (agitated confused, uncooperative for neuro exam ) Results Result Diagram: 10/20/18 0439 10/20/18 0439 Results 24hrs Laboratory Tests Test 10/20/18 04:39 White Blood Count 5.8 Red Blood Count 2.61 L Hemoglobin 8.0 L Hematocrit 25.7 L Mean Corpuscular Volume 98.5 Mean Corpuscular Hemoglobin 30.7 Mean Corpuscular Hemoglobin Concent 31.1 L Red Cell Distribution Width 15.2 H Platelet Count 377 Mean Platelet Volume 11.3 H Immature Granulocytes % 0.700 H Neutrophils % 69.8 Lymphocytes % 21.6 Monocytes % 6.5 Eosinophils % 0.7 Basophils % 0.7 Nucleated Red Blood Cells % 0.0 Immature Granulocytes # 0.040 H Neutrophils # 4.1 Lymphocytes # 1.3 Monocytes # 0.4 Eosinophils # 0.0 Basophils # 0.0 Nucleated Red Blood Cells # 0.0 Sodium Level 142 Potassium Level 4.2 Chloride Level 109 Carbon Dioxide Level 26 Anion Gap 7 Blood Urea Nitrogen 21 H Creatinine 0.78 Est Glomerular Filtrat Rate mL/min > 60 Glucose Level 107 Calcium Level 8.7 Valproic Acid (Depakene) Level 100 Medications Medication Current Medications IV Flush (NS 3 ml) 3 ml PER PROTOCOL IV ; Start 10/06/18 at 09:30 Ondansetron HCl (Zofran Inj) 4 mg Q6H PRN IV NAUSEA/VOMITING; Start 10/06/18 at 09:30 Acetaminophen (Tylenol Tab) 650 mg Q6H PRN PO .PAIN 1-3 OR TEMP Last administered on 10/12/18at 08:27; Admin Dose 650 MG; Start 10/06/18 at 09:30 Acetaminophen/ Hydrocodone Bitart ([place] (5/325)) 1 tab Q6H PRN PO .MOD PAIN 4- 6; Start 10/06/18 at 09:30 Docusate Sodium (Colace) 100 mg Q12H PRN PO .CONSTIPATION; Start 10/06/18 at 09:30 Magnesium Hydroxide (Milk Of Mag) 30 ml DAILY PRN PO .CONSTIPATION; Start 10/06/18 at 09:30 Albuterol/ Ipratropium (Duoneb) 3 ml Q4H RESP THERAPY PRN HHN SHORTNESS OF BREATH; Start 10/06/18 at 09:30 Nitroglycerin (Nitroglycerin (Sl Tab) 0.4 Mg) 1 tab Q5M PRN SL ANGINA; Start 10/06/18 at 09:30 Bisacodyl (Dulcolax) 10 mg DAILY PRN PO CONSTIPATION; Start 10/06/18 at 09:30 Donepezil HCl (Aricept) 5 mg QHS PO Last administered on 10/19/18 21:39; Admin Dose 5 MG; Start 10/06/18 at 21:00 Lactulose (Enulose) 20 gm TID PRN PO CONSTIPATION; Start 10/06/18 at 09:30 Levothyroxine Sodium (Synthroid) 50 mcg BEFORE BREAKFAST PO Last administered on 10/20/18 07:40; Admin Dose 50 MCG; Start 10/07/18 at 07:00 Mineral Oil (Fleet Mineral Oil Enema) 133 ml DAILY PRN [place] CONSTIPATION; Start 10/06/18 at 09:30 Multivitamins Therapeutic (Theragran) 1 tab DAILY PO Last administered on 10/20/18 08:06; Admin Dose 1 TAB; Start 10/07/18 at 09:00 Norepinephrine 32 mg/Dextrose 250 ml @ 0.47 mls/hr TITRATE IV Last administered on 10/08/18 12:53; Admin Dose 4.69 MLS/HR; Start 10/06/18 at 11:30 Aspirin (Aspirin) 81 mg DAILY NGT Last administered on 10/11/18 09:35; Admin Dose 81 MG; Start 10/06/18 at 12:30; Status Hold Atorvastatin Calcium (Lipitor) 40 mg DAILY@21 NGT Last administered on 10/19/18 21:36; Admin Dose 40 MG; Start 10/06/18 at 21:00 Miscellaneous Information (Flu Vaccine Previously Dispensed) FLU VACCINE PREVIOU... NOTE PRN XX NOTE; Start 10/06/18 at 18:00 Midazolam HCl 50 ml @ 0 mls/hr TITRATE IV Last administered on 10/16/18 04:11; Admin Dose 1 MLS/HR; Start 10/08/18 at 10:00 Fentanyl 100 ml @ 2.5 mls/hr TITRATE IV Last administered on 10/10/18 01:01; Admin Dose 2.5 MLS/HR; Start 10/08/18 at 16:30 Amiodarone HCl (Cordarone) 200 mg BID PO Last administered on 10/20/18 08:06; Admin Dose 200 MG; Start 10/09/18 at 21:00 Famotidine (Pepcid) 20 mg DAILY NGT Last administered on 10/20/18 08:06; Admin Dose 20 MG; Start 10/10/18 at 09:00 Phenylephrine HCl 250 ml @ 75 mls/hr TITRATE IV Last administered on 10/12/18 01:38; Admin Dose 6 MLS/HR; Start 10/09/18 at 13:00 Polyethylene Glycol (Miralax) 17 gm BID PRN PO constipation; Start 10/10/18 at 22:00 Metoprolol Tartrate (Lopressor) 25 mg BID PO Last administered on 10/20/18 08:06; Admin Dose 25 MG; Start 10/12/18 at 15:00 Metoprolol Tartrate (Lopressor) 5 mg Q4H PRN IV HR>110 Hold SBP<100; Start 10/12/18 at 15:00 Enoxaparin Sodium (Lovenox) 70 mg DAILY SC Last administered on 10/20/18 08:16; Admin Dose 70 MG; Start 10/14/18 at 09:00 Levetiracetam (Keppra Liquid) 1,000 mg BID GTB Last administered on 10/20/18 08:07; Admin Dose 1,000 MG; Start 10/14/18 at 21:00 Valproate Sodium (Depakene Liquid Cup) 1,000 mg Q6H GTB Last administered on 10/20/18 08:07; Admin Dose 1,000 MG; Start 10/16/18 at 09:00 Lorazepam (Ativan) 1 mg Q4H PRN IV SEIZURES Last administered on 10/20/18 08: 20; Admin Dose 1 MG; Start 10/16/18 at 12:00 Cefepime HCl 50 ml @ 100 mls/hr Q12 IVPB Last administered on 10/20/18 08:07; Admin Dose 100 MLS/HR; Start 10/16/18 at 21:00 Morphine Sulfate (morphine) 1 mg Q4H PRN IV .SEVERE PAIN 7-10 Last administered on 10/19/18 08:27; Admin Dose 1 MG; Start 10/16/18 at 15:45 Epoetin Nile (Epogen (Non Esrd/Non Oncology)) 6,000 units MoWeFr@17 SC Last administered on 10/18/18 17:09; Admin Dose 6,000 UNITS; Start 10/18/18 at 17:00 Furosemide (Lasix) 20 mg DAILY@0600 IV Last administered on 10/20/18at 05:56; Admin Dose 20 MG; Start 10/18/18 at 12:30 Quetiapine Fumarate (Seroquel) 12.5 mg QID PRN NGT anxiety/agitation Last administered on 10/18/18at 14:38; Admin Dose 12.5 MG; Start 10/18/18 at 14:30 Quetiapine Fumarate (Seroquel) 12.5 mg QHS NGT Last administered on 10/19/18at 21:37; Admin Dose 12.5 MG; Start 10/19/18 at 21:00 VALARIE BENNETT MD Oct 20, 2018 08:54
--- NOTE | 2018-10-20 09:09 | PN ---
Date/Time of Note Date/Time of Note DATE: 10/20/18 TIME: 09:05 Assessment/Plan VTE Prophylaxis Risk score (from Ns)>0 risk: 3 SCD applied (from Ns): Yes Pharmacological prophylaxis: other Lines[facility]Cathe[facility] IV Urinary Cath still in place: Yes Reason Cath still needed: urinary retention Assessment/Plan Hospital Course S: Patient tolerating tube feeds, no acute events overnight. O: VS -SEE BELOW PE: GENERAL: lying in bed, opens eyes and moans occasionally HEENT: Moist mucous membranes NECK: Supple, no thyromegaly. LUNGS: Mechanical breath sounds equal bilaterally. CARDIOVASCULAR: S1, S2 heard. No rubs or gallops. ABDOMEN: Soft, nontender, nondistended. Normal bowel sounds. No rebound or guarding. MUSCULOSKELETAL: No lower extremity edema bilaterally. Assessment/Plan: 67-year-old female coming in with signs of septic shock, likely secondary to urinary tract infection and pneumonia, elevated troponins, acute renal insufficiency, now intubated on pressor support. Also presented with atrial fibrillation with rapid ventricular response, now in normal sinus rhythm. #Septic shock and respiratory failure-resolving now, ID Dr. Sanford following- Likely due to UTI- Urine cultures and Blood cultures growing E Coli x2-has been off vasopressor support for the last 5 days. Again, patient extubated 2 days ago, presently on 2 L nasal cannula oxygen -Continue current broad-spectrum antibiotics, Tylenol p.r.n. pain and fevers. -Follow-up ID recommendations, final culture results, continue IV fluids -Follow pulmonary recommendations #Seizure- Morning of 10/08 had whole body twitching concerning for seizures; got Ativan then Versed. Again on 10/11 had a similar episode broken with Ativan-10/08/18 EEG appears to have localized lesion but CT head is negative. Repeat EEG from 10/15/18 results noted, neuro following. - Continue keppra, valproic acid, follow-up neurology recommendations - Holding versed, but continue Ativan as needed - Pending MRI [id number] results of this - Low-dose Seroquel as needed agitation # NSTEMI - Unclear if this is true non-ST elevation myocardial infarction versus demand ischemia- s/p heparin gtt earlier this admission. - Continue high dose aspirin. - Continue Lipitor. - Cardiology Dr. Mello consulted, follow-up their recommendations -continue medical management #A fib with RVR, paroxysmal-stable, Dr. Mello following- Converted to normal sinus after getting Cardizem in ED-apparently went back in A fib later, now the last few days has been in normal sinus rhythm -Monitor heart rate for now, follow cardiology recommendations -Continue p.o. beta-panda and p.o. amiodarone for now # Renal insufficiency - improving- Not anuric - Dr. Davila consulted, monitor for now # Hypothyroidism - Continue current thyroid medicines. - Low TSH, normal fT4 consistent with sick euthyroid syndrome. # History of dementia. - Continue Aricept for now. # History of high cholesterol. - Cont statin #Anemia: Unclear source, hemoglobin in the high 7 - low 8 range; PRBC transfusion performed a few days ago -Monitor CBC daily #Hypernatremia: Resolved now -Monitor, continue current IV fluids # Gastrointestinal prophylaxis- H2 panda. # Deep venous thrombosis prophylaxis - due to anemia- SCDs Dispo: Bioethics meeting held 4 days ago - for now there is no change in the CODE STATUS. Patient requires reintubation, will need to reconsult bioethics team for consideration of tracheostomy at that time if necessary. 40 minutes critical care time spent on this patient. Result Diagram: 10/20/18 0439 10/20/18 0439 Results 24hrs Laboratory Tests Test 10/20/18 04:39 White Blood Count 5.8 Red Blood Count 2.61 L Hemoglobin 8.0 L Hematocrit 25.7 L Mean Corpuscular Volume 98.5 Mean Corpuscular Hemoglobin 30.7 Mean Corpuscular Hemoglobin Concent 31.1 L Red Cell Distribution Width 15.2 H Platelet Count 377 Mean Platelet Volume 11.3 H Immature Granulocytes % 0.700 H Neutrophils % 69.8 Lymphocytes % 21.6 Monocytes % 6.5 Eosinophils % 0.7 Basophils % 0.7 Nucleated Red Blood Cells % 0.0 Immature Granulocytes # 0.040 H Neutrophils # 4.1 Lymphocytes # 1.3 Monocytes # 0.4 Eosinophils # 0.0 Basophils # 0.0 Nucleated Red Blood Cells # 0.0 Sodium Level 142 Potassium Level 4.2 Chloride Level 109 Carbon Dioxide Level 26 Anion Gap 7 Blood Urea Nitrogen 21 H Creatinine 0.78 Est Glomerular Filtrat Rate mL/min > 60 Glucose Level 107 Calcium Level 8.7 Valproic Acid (Depakene) Level 100 Exam/Review of Systems Exam Vitals Vital Signs Date Temp Pulse Resp B/P (MAP) Pulse Ox O2 O2 Flow FiO2 Time Delivery Rate 10/20/18 97.9 77 21 128/75 96 Mechanical 07:30 (92) Ventilator 10/20/18 2.0 03:16 10/18/18 30 09:25 Intake and Output 10/19/18 10/19/18 10/20/18 1515:00 23:00 07:00 IntakeIntake Total 540 ml 430 ml 425 ml OutputOutput Total 1070 ml 560 ml 490 ml BalanceBalance -530 ml -130 ml -65 ml Results Results 24hrs Laboratory Tests Test 10/20/18 04:39 White Blood Count 5.8 Red Blood Count 2.61 L Hemoglobin 8.0 L Hematocrit 25.7 L Mean Corpuscular Volume 98.5 Mean Corpuscular Hemoglobin 30.7 Mean Corpuscular Hemoglobin Concent 31.1 L Red Cell Distribution Width 15.2 H Platelet Count 377 Mean Platelet Volume 11.3 H Immature Granulocytes % 0.700 H Neutrophils % 69.8 Lymphocytes % 21.6 Monocytes % 6.5 Eosinophils % 0.7 Basophils % 0.7 Nucleated Red Blood Cells % 0.0 Immature Granulocytes # 0.040 H Neutrophils # 4.1 Lymphocytes # 1.3 Monocytes # 0.4 Eosinophils # 0.0 Basophils # 0.0 Nucleated Red Blood Cells # 0.0 Sodium Level 142 Potassium Level 4.2 Chloride Level 109 Carbon Dioxide Level 26 Anion Gap 7 Blood Urea Nitrogen 21 H Creatinine 0.78 Est Glomerular Filtrat Rate mL/min > 60 Glucose Level 107 Calcium Level 8.7 Valproic Acid (Depakene) Level 100 Medications Medication Current Medications IV Flush (NS 3 ml) 3 ml PER PROTOCOL IV ; Start 10/06/18 at 09:30 Ondansetron HCl (Zofran Inj) 4 mg Q6H PRN IV NAUSEA/VOMITING; Start 10/06/18 at 09:30 Acetaminophen (Tylenol Tab) 650 mg Q6H PRN PO .PAIN 1-3 OR TEMP Last administered on 10/12/18at 08:27; Admin Dose 650 MG; Start 10/06/18 at 09:30 Acetaminophen/ Hydrocodone Bitart ([place] (5/325)) 1 tab Q6H PRN PO .MOD PAIN 4- 6; Start 10/06/18 at 09:30 Docusate Sodium (Colace) 100 mg Q12H PRN PO .CONSTIPATION; Start 10/06/18 at 09:30 Magnesium Hydroxide (Milk Of Mag) 30 ml DAILY PRN PO .CONSTIPATION; Start 10/06/18 at 09:30 Albuterol/ Ipratropium (Duoneb) 3 ml Q4H RESP THERAPY PRN HHN SHORTNESS OF BREATH; Start 10/06/18 at 09:30 Nitroglycerin (Nitroglycerin (Sl Tab) 0.4 Mg) 1 tab Q5M PRN SL ANGINA; Start 10/06/18 at 09:30 Bisacodyl (Dulcolax) 10 mg DAILY PRN PO CONSTIPATION; Start 10/06/18 at 09:30 Donepezil HCl (Aricept) 5 mg QHS PO Last administered on 10/19/18at 21:39; Admin Dose 5 MG; Start 10/06/18 at 21:00 Lactulose (Enulose) 20 gm TID PRN PO CONSTIPATION; Start 10/06/18 at 09:30 Levothyroxine Sodium (Synthroid) 50 mcg BEFORE BREAKFAST PO Last administered on 10/20/18at 07:40; Admin Dose 50 MCG; Start 10/07/18 at 07:00 Mineral Oil (Fleet Mineral Oil Enema) 133 ml DAILY PRN IN CONSTIPATION; Start 10/06/18 at 09:30 Multivitamins Therapeutic (Theragran) 1 tab DAILY PO Last administered on 10/20/18at 08:06; Admin Dose 1 TAB; Start 10/07/18 at 09:00 Norepinephrine 32 mg/Dextrose 250 ml @ 0.47 mls/hr TITRATE IV Last administered on 10/08/18 12:53; Admin Dose 4.69 MLS/HR; Start 10/06/18 at 11:30 Aspirin (Aspirin) 81 mg DAILY NGT Last administered on 10/11/18at 09:35; Admin Dose 81 MG; Start 10/06/18 at 12:30; Status Hold Atorvastatin Calcium (Lipitor) 40 mg DAILY@21 NGT Last administered on at 21:36; Admin Dose 40 MG; Start 10/06/18 at 21:00 Miscellaneous Information (Flu Vaccine Previously Dispensed) FLU VACCINE PREVIOU... NOTE PRN XX NOTE; Start 10/06/18 at 18:00 Midazolam HCl 50 ml @ 0 mls/hr TITRATE IV Last administered on 10/16/18at 04:11; Admin Dose 1 MLS/HR; Start 10/08/18 at 10:00 Fentanyl 100 ml @ 2.5 mls/hr TITRATE IV Last administered on 10/10/18at 01:01; Admin Dose 2.5 MLS/HR; Start 10/08/18 at 16:30 Amiodarone HCl (Cordarone) 200 mg BID PO Last administered on 10/20/18 08:06; Admin Dose 200 MG; Start 10/09/18 at 21:00 Famotidine (Pepcid) 20 mg DAILY NGT Last administered on 10/20/18 08:06; Admin Dose 20 MG; Start 10/10/18 at 09:00 Phenylephrine HCl 250 ml @ 75 mls/hr TITRATE IV Last administered on 10/12/18at 01:38; Admin Dose 6 MLS/HR; Start 10/09/18 at 13:00 Polyethylene Glycol (Miralax) 17 gm BID PRN PO constipation; Start 10/10/18 at 22:00 Metoprolol Tartrate (Lopressor) 25 mg BID PO Last administered on 10/20/18 08:06; Admin Dose 25 MG; Start 10/12/18 at 15:00 Metoprolol Tartrate (Lopressor) 5 mg Q4H PRN IV HR>110 Hold SBP<100; Start 10/12/18 at 15:00 Enoxaparin Sodium (Lovenox) 70 mg DAILY SC Last administered on 10/20/18 08:16; Admin Dose 70 MG; Start 10/14/18 at 09:00 Levetiracetam (Keppra Liquid) 1,000 mg BID GTB Last administered on 10/20/18 08:07; Admin Dose 1,000 MG; Start 10/14/18 at 21:00 Valproate Sodium (Depakene Liquid Cup) 1,000 mg Q6H GTB Last administered on 10/20/18at 08:07; Admin Dose 1,000 MG; Start 10/16/18 at 09:00 Lorazepam (Ativan) 1 mg Q4H PRN IV SEIZURES Last administered on 10/20/18 08:20; Admin Dose 1 MG; Start 10/16/18 at 12:00 Cefepime HCl 50 ml @ 100 mls/hr Q12 IVPB Last administered on 10/20/18 08:07; Admin Dose 100 MLS/HR; Start 10/16/18 at 21:00 Morphine Sulfate (morphine) 1 mg Q4H PRN IV .SEVERE PAIN 7-10 Last administered on 10/19/18 08:27; Admin Dose 1 MG; Start 10/16/18 at 15:45 Epoetin Nile (Epogen (Non Esrd/Non Oncology)) 6,000 units MoWeFr@17 SC Last administered on 10/18/18 17:09; Admin Dose 6,000 UNITS; Start 10/18/18 at 17:00 Furosemide (Lasix) 20 mg DAILY@0600 IV Last administered on 10/20/18 05:56; Admin Dose 20 MG; Start 10/18/18 at 12:30 Quetiapine Fumarate (Seroquel) 12.5 mg QID PRN NGT anxiety/agitation Last administered on 10/18/18 14:38; Admin Dose 12.5 MG; Start 10/18/18 at 14:30 Quetiapine Fumarate (Seroquel) 12.5 mg QHS NGT Last administered on 10/19/18 21:37; Admin Dose 12.5 MG; Start 10/19/18 at 21:00 MANUEL ALEMAN 17, 2019 09:09
--- NOTE | 2018-10-20 10:24 | CONS ---
Assessment/Plan Assessment/Plan Hospital Course (Demo Recall) ID PROGRESS NOTE CURRENT ABX: DAY # Cefepime 10/20/18 0439 10/20/189 24H INTERVAL SUMMARY * Clinically status quo --- no fevers, VSS, Encephalopathic -- moaning and shaking -- intermittent agitation. * Extubated 10/18/18 am -- O2 via NC * Central Line DC'd 10/20/17 DIAGNOSTIC IMAGING * 10/19/18 CXR: 1. Findings suggestive of pulmonary vascular congestion with small bilateral pleural effusions. Findings are minimally increased when compared to the prior examination.2. Mild cardiomegaly and aortic atherosclerosis. 3. Tubes and lines, as described above. MICRO/OTHER * 10/08/2018 Resp. Cx (-) * 10/08/2018 BCx (-) * 10/06/2018 BCx (+)GNR = E.coli * 10/06/2018 Urine Cx (+)GNR = E.coli PHYSICAL EXAMINATION: GENERAL: VSS HEENT: AT, NC, anicteric NECK: Supple, CHEST: Equal chest rise bilaterally, without dyspnea on observation HEART: Pulse RRR ABDOMEN: Soft / NT EXTREMITIES: Warm, dry SKIN: No rash, no diaphoresis ID ASSESSMENT 67 yo F admit with: 1. Sepsis==> resolving 2. E coli bacteremia secondary to urinary tract infection 3. Acute hypoxemic respiratory failure 4. Healthcare associated pneumonia, possibly aspiration 4. Acute possibly on chronic kidney disease 5. Non-ST elevation AR 6. Atrial fibrillation status post RVR 7. Seizures ABX ALLERGIES: PCN/SULFA/CLINDA INVASIVES: PIV CURRENT ABX: DAY # Cefepime ID RECOMMENDATIONS/PLAN: 1. Continue current ABX per ID Colleague notes until Sunday . Consultation Date/Type/Reason Admit Date/Time Oct 06, 2018 at 09:29 Initial Consult Date 10/06/18 Requesting Provider: MANUEL ALEMAN Date/Time of Note DATE: 10/20/18 TIME: 10:22 Exam/Review of Systems Exam Vitals Vital Signs Date Temp Pulse Resp B/P (MAP) Pulse Ox O2 O2 Flow FiO2 Time Delivery Rate 10/20/18 97.9 77 21 128/75 96 Mechanical 07:30 (92) Ventilator 10/20/18 2.0 03:16 10/18/18 30 09:25 Intake and Output 10/19/18 10/19/18 10/20/18 1515:00 23:00 07:00 IntakeIntake Total 540 ml 430 ml 425 ml OutputOutput Total 1070 ml 560 ml 490 ml BalanceBalance -530 ml -130 ml -65 ml Results Result Diagram: 10/20/18 0439 10/20/18 0439 Results 24hrs Laboratory Tests Test 10/20/18 04:39 White Blood Count 5.8 Red Blood Count 2.61 L Hemoglobin 8.0 L Hematocrit 25.7 L Mean Corpuscular Volume 98.5 Mean Corpuscular Hemoglobin 30.7 Mean Corpuscular Hemoglobin Concent 31.1 L Red Cell Distribution Width 15.2 H Platelet Count 377 Mean Platelet Volume 11.3 H Immature Granulocytes % 0.700 H Neutrophils % 69.8 Lymphocytes % 21.6 Monocytes % 6.5 Eosinophils % 0.7 Basophils % 0.7 Nucleated Red Blood Cells % 0.0 Immature Granulocytes # 0.040 H Neutrophils # 4.1 Lymphocytes # 1.3 Monocytes # 0.4 Eosinophils # 0.0 Basophils # 0.0 Nucleated Red Blood Cells # 0.0 Sodium Level 142 Potassium Level 4.2 Chloride Level 109 Carbon Dioxide Level 26 Anion Gap 7 Blood Urea Nitrogen 21 H Creatinine 0.78 Est Glomerular Filtrat Rate mL/min > 60 Glucose Level 107 Calcium Level 8.7 Valproic Acid (Depakene) Level 100 Medications Medication Current Medications IV Flush (NS 3 ml) 3 ml PER PROTOCOL IV ; Start 10/06/18 at 09:30 Ondansetron HCl (Zofran Inj) 4 mg Q6H PRN IV NAUSEA/VOMITING; Start 10/06/18 at 09:30 Acetaminophen (Tylenol Tab) 650 mg Q6H PRN PO .PAIN 1-3 OR TEMP Last administered on 10/12/18at 08:27; Admin Dose 650 MG; Start 10/06/18 at 09:30 Acetaminophen/ Hydrocodone Bitart ([place] (5/325)) 1 tab Q6H PRN PO .MOD PAIN 4- 6; Start 10/06/18 at 09:30 Docusate Sodium (Colace) 100 mg Q12H PRN PO .CONSTIPATION; Start 10/06/18 at 09:30 Magnesium Hydroxide (Milk Of Mag) 30 ml DAILY PRN PO .CONSTIPATION; Start 10/06/18 at 09:30 Albuterol/ Ipratropium (Duoneb) 3 ml Q4H RESP THERAPY PRN HHN SHORTNESS OF BREATH; Start 10/06/18 at 09:30 Nitroglycerin (Nitroglycerin (Sl Tab) 0.4 Mg) 1 tab Q5M PRN SL ANGINA; Start 10/06/18 at 09:30 Bisacodyl (Dulcolax) 10 mg DAILY PRN PO CONSTIPATION; Start 10/06/18 at 09:30 Donepezil HCl (Aricept) 5 mg QHS PO Last administered on 10/19/18at 21:39; Admin Dose 5 MG; Start 10/06/18 at 21:00 Lactulose (Enulose) 20 gm TID PRN PO CONSTIPATION; Start 10/06/18 at 09:30 Levothyroxine Sodium (Synthroid) 50 mcg BEFORE BREAKFAST PO Last administered on 10/20/18at 07:40; Admin Dose 50 MCG; Start 10/07/18 at 07:00 Mineral Oil (Fleet Mineral Oil Enema) 133 ml DAILY PRN NC CONSTIPATION; Start 10/06/18 at 09:30 Multivitamins Therapeutic (Theragran) 1 tab DAILY PO Last administered on 10/20/18at 08:06; Admin Dose 1 TAB; Start 10/07/18 at 09:00 Norepinephrine 32 mg/Dextrose 250 ml @ 0.47 mls/hr TITRATE IV Last administered on 10/08/18at 12:53; Admin Dose 4.69 MLS/HR; Start 10/06/18 at 11:30 Aspirin (Aspirin) 81 mg DAILY NGT Last administered on 10/11/18at 09:35; Admin Dose 81 MG; Start 10/06/18 at 12:30; Status Hold Atorvastatin Calcium (Lipitor) 40 mg DAILY@21 NGT Last administered on 10/19/18at 21:36; Admin Dose 40 MG; Start 10/06/18 at 21:00 Miscellaneous Information (Flu Vaccine Previously Dispensed) FLU VACCINE PREVIOU... NOTE PRN XX NOTE; Start 10/06/18 at 18:00 Midazolam HCl 50 ml @ 0 mls/hr TITRATE IV Last administered on 10/16/18 04:11; Admin Dose 1 MLS/HR; Start 10/08/18 at 10:00 Fentanyl 100 ml @ 2.5 mls/hr TITRATE IV Last administered on 10/10/18 01:01; Admin Dose 2.5 MLS/HR; Start 10/08/18 at 16:30 Amiodarone HCl (Cordarone) 200 mg BID PO Last administered on 10/20/18 08:06; Admin Dose 200 MG; Start 10/09/18 at 21:00 Famotidine (Pepcid) 20 mg DAILY NGT Last administered on 10/20/18 08:06; Admin Dose 20 MG; Start 10/10/18 at 09:00 Phenylephrine HCl 250 ml @ 75 mls/hr TITRATE IV Last administered on 10/12/18 01:38; Admin Dose 6 MLS/HR; Start 10/09/18 at 13:00 Polyethylene Glycol (Miralax) 17 gm BID PRN PO constipation; Start 10/10/18 at 22:00 Metoprolol Tartrate (Lopressor) 25 mg BID PO Last administered on 10/20/18 08:06; Admin Dose 25 MG; Start 10/12/18 at 15:00 Metoprolol Tartrate (Lopressor) 5 mg Q4H PRN IV HR>110 Hold SBP<100; Start 10/12/18 at 15:00 Enoxaparin Sodium (Lovenox) 70 mg DAILY SC Last administered on 10/20/18 08:16; Admin Dose 70 MG; Start 10/14/18 at 09:00 Levetiracetam (Keppra Liquid) 1,000 mg BID GTB Last administered on 10/20/18 08:07; Admin Dose 1,000 MG; Start 10/14/18 at 21:00 Valproate Sodium (Depakene Liquid Cup) 1,000 mg Q6H GTB Last administered on 10/20/18 08:07; Admin Dose 1,000 MG; Start 10/16/18 at 09:00 Lorazepam (Ativan) 1 mg Q4H PRN IV SEIZURES Last administered on 10/20/18 08:20; Admin Dose 1 MG; Start 10/16/18 at 12:00 Cefepime HCl 50 ml @ 100 mls/hr Q12 IVPB Last administered on 10/20/18 08:07; Admin Dose 100 MLS/HR; Start 10/16/18 at 21:00 Morphine Sulfate (morphine) 1 mg Q4H PRN IV .SEVERE PAIN 7-10 Last administered on 10/19/18 08:27; Admin Dose 1 MG; Start 10/16/18 at 15:45 Epoetin Nile (Epogen (Non Esrd/Non Oncology)) 6,000 units MoWeFr@17 SC Last administered on 10/18/18 17:09; Admin Dose 6,000 UNITS; Start 10/18/18 at 17:00 Furosemide (Lasix) 20 mg DAILY@0600 IV Last administered on 10/20/18 05:56; Admin Dose 20 MG; Start 10/18/18 at 12:30 Quetiapine Fumarate (Seroquel) 12.5 mg QID PRN NGT anxiety/agitation Last administered on 10/18/18 14:38; Admin Dose 12.5 MG; Start 10/18/18 at 14:30 Quetiapine Fumarate (Seroquel) 12.5 mg QHS NGT Last administered on 10/19/18 21:37; Admin Dose 12.5 MG; Start 10/19/18 at 21:00 ROLF GONZALEZ NP Oct 20, 2018 10:24
--- NOTE | 2018-10-20 11:52 | CONS ---
Consult Date/Type/Reason Admit Date/Time Oct 06, 2018 at 09:29 Initial Consult Date 10/06/18 Type of Consultation: Pulm/CCM Requesting Provider: MANUEL ALEMAN Date/Time of Note DATE: 10/20/18 TIME: 11:49 Subjective Remains confused. Notable secretions and rhonchi noted. Objective Vitals Vital Signs Date Temp Pulse Resp B/P (MAP) Pulse Ox O2 O2 Flow FiO2 Time Delivery Rate 10/20/18 84 20 167/89 97 Mechanical 11:00 (115) Ventilator 10/20/18 97.9 07:30 10/20/18 2.0 03:16 10/18/18 30 09:25 Intake and Output 10/19/18 10/19/18 10/20/18 1515:00 23:00 07:00 IntakeIntake Total 540 ml 430 ml 580 ml OutputOutput Total 1070 ml 560 ml 640 ml BalanceBalance -530 ml -130 ml -60 ml Exam HEENT: Neck supple; no JVD; no LAD CVS: RRR, S1 and S2 CHEST: +++ coarse rhonchi B/L ABD: Soft, NT, + BS EXT: No c/c/e Results/Medications Result Diagram: 10/20/1843810/20/18 043 Results 24 hrs Laboratory Tests Test 10/20/18 04:39 White Blood Count 5.8 Red Blood Count 2.61 L Hemoglobin 8.0 L Hematocrit 25.7 L Mean Corpuscular Volume 98.5 Mean Corpuscular Hemoglobin 30.7 Mean Corpuscular Hemoglobin Concent 31.1 L Red Cell Distribution Width 15.2 H Platelet Count 377 Mean Platelet Volume 11.3 H Immature Granulocytes % 0.700 H Neutrophils % 69.8 Lymphocytes % 21.6 Monocytes % 6.5 Eosinophils % 0.7 Basophils % 0.7 Nucleated Red Blood Cells % 0.0 Immature Granulocytes # 0.040 H Neutrophils # 4.1 Lymphocytes # 1.3 Monocytes # 0.4 Eosinophils # 0.0 Basophils # 0.0 Nucleated Red Blood Cells # 0.0 Sodium Level 142 Potassium Level 4.2 Chloride Level 109 Carbon Dioxide Level 26 Anion Gap 7 Blood Urea Nitrogen 21 H Creatinine 0.78 Est Glomerular Filtrat Rate mL/min > 60 Glucose Level 107 Calcium Level 8.7 Valproic Acid (Depakene) Level 100 Home Meds Active Scripts Vancomycin Hcl (Vancocin) 1 Gm Soln, 500 MG IV Q12 for 7 Days, VIAL 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 08/31/18 Aztreonam (AZTREONAM) 1 Gm Vial, 1 GM IV* Q12 for 7 Days, VIAL 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 08/31/18 Reported Medications Donepezil* (Donepezil*) 5 Mg Tablet, 5 MG PO QHS, #30 TAB 08/28/18 Divalproex Sodium* (Depakote*) 500 Mg Tablet.dr, 500 MG PO BID, #120 TAB 08/28/18 Docusate Sodium* (Colace*) 100 Mg Capsule, 100 MG PO BID PRN for CONSTIPATION, #60 CAP 08/28/18 Atorvastatin Calcium (Atorvastatin Calcium) 10 Mg Tablet, 10 MG PO QHS, #30 TAB 08/28/18 Lorazepam* (Lorazepam*) 1 Mg Tablet, 1 MG PO BID PRN for ANXIETY, #30 TAB 08/28/18 Lactulose* (Lactulose*) 20 Gm/30 Ml Solution, 20 GM PO TID PRN for CONSTIPATION, ML 08/28/18 Trazodone Hcl* (Trazodone Hcl*) 100 Mg Tablet, 100 MG PO QHS, #30 TAB 08/28/18 Quetiapine Fumarate* (Seroquel*) 200 Mg Tablet, 200 MG PO HS, #30 TAB 08/28/18 Sennosides* (Senna Lax*) 8.6 Mg Tablet, 2 TAB PO QHS PRN for CONSTIPATION, TAB 08/28/18 Multivitamins* (Theragran*) 1 Tab Tab, 1 TAB PO DAILY, TAB 08/28/18 Polyethylene Glycol* (Miralax*) 17 Gm Powd.pack, 17 GM PO BID, #60 PACKET 08/28/18 Metoprolol Tartrate* (Lopressor*) 25 Mg Tab, 12.5 MG PO DAILY, #60 TAB HOLD IF SBP<115 OR HR<60 08/28/18 Levothyroxine Sodium* (Levothyroxine Sodium*) 50 Mcg Tablet, 50 MCG PO BEFORE BREAKFAST, #30 TAB 08/28/18 Levetiracetam* (Keppra*) 500 Mg Tablet, 500 MG PO BID, TAB 08/28/18 Gabapentin* (Gabapentin*) 400 Mg Capsule, 400 MG PO TID, #90 CAP 08/28/18 Phenylephrine HCl/[place] Butter* (Preparation H* Suppository) 1 Each Supp.rect, 1 EACH [place] DAILY PRN for CONSTIPATION, SUPP.RECT 08/28/18 Mineral Oil* (Fleet* Mineral Oil Enema) 133 Ml Oil, 133 ML [place] DAILY PRN for CONSTIPATION, ENEMA 08/28/18 Acetaminophen* (Acetaminophen*) 650 Mg Tablet, 650 MG PO DAILY PRN for PAIN AND OR ELEVATED TEMP, #30 TAB 08/28/18 Bisacodyl* (Bisacodyl*) 5 Mg Tablet.dr, 10 MG PO DAILY PRN for CONSTIPATION, TAB 08/28/18 Medications Current Medications IV Flush (NS 3 ml) 3 ml PER PROTOCOL IV ; Start 10/06/18 at 09:30 Ondansetron HCl (Zofran Inj) 4 mg Q6H PRN IV NAUSEA/VOMITING; Start 10/06/18 at 09:30 Acetaminophen (Tylenol Tab) 650 mg Q6H PRN PO .PAIN 1-3 OR TEMP Last administer ed on 10/12/18at 08:27; Admin Dose 650 MG; Start 10/06/18 at 09:30 Acetaminophen/ Hydrocodone Bitart ([place] (5/325)) 1 tab Q6H PRN PO .MOD PAIN 4- 6; Start 10/06/18 at 09:30 Docusate Sodium (Colace) 100 mg Q12H PRN PO .CONSTIPATION; Start 10/06/18 at 09:30 Magnesium Hydroxide (Milk Of Mag) 30 ml DAILY PRN PO .CONSTIPATION; Start 10/06/18 at 09:30 Albuterol/ Ipratropium (Duoneb) 3 ml Q4H RESP THERAPY PRN HHN SHORTNESS OF BREATH; Start 10/06/18 at 09:30 Nitroglycerin (Nitroglycerin (Sl Tab) 0.4 Mg) 1 tab Q5M PRN SL ANGINA; Start 10/06/18 at 09:30 Bisacodyl (Dulcolax) 10 mg DAILY PRN PO CONSTIPATION; Start 10/06/18 at 09:30 Donepezil HCl (Aricept) 5 mg QHS PO Last administered on 3/16/19at 21:39; Admin Dose 5 MG; Start 10/06/18 at 21:00 Lactulose (Enulose) 20 gm TID PRN PO CONSTIPATION; Start 10/06/18 at 09:30 Levothyroxine Sodium (Synthroid) 50 mcg BEFORE BREAKFAST PO Last administered on 10/20/18 07:40; Admin Dose 50 MCG; Start 10/07/18 at 07:00 Mineral Oil (Fleet Mineral Oil Enema) 133 ml DAILY PRN [place] CONSTIPATION; Start 10/06/18 at 09:30 Multivitamins Therapeutic (Theragran) 1 tab DAILY PO Last administered on 10/20/18 08:06; Admin Dose 1 TAB; Start 10/07/18 at 09:00 Aspirin (Aspirin) 81 mg DAILY NGT Last administered on 10/11/18 09:35; Admin Dose 81 MG; Start 10/06/18 at 12:30; Status Hold Atorvastatin Calcium (Lipitor) 40 mg DAILY@21 NGT Last administered on 10/19/18 21:36; Admin Dose 40 MG; Start 10/06/18 at 21:00 Miscellaneous Information (Flu Vaccine Previously Dispensed) FLU VACCINE PREVIOU... NOTE PRN XX NOTE; Start 10/06/18 at 18:00 Amiodarone HCl (Cordarone) 200 mg BID PO Last administered on 10/20/18 08:06; Admin Dose 200 MG; Start 10/09/18 at 21:00 Famotidine (Pepcid) 20 mg DAILY NGT Last administered on 10/20/18 08:06; Admin Dose 20 MG; Start 10/10/18 at 09:00 Polyethylene Glycol (Miralax) 17 gm BID PRN PO constipation; Start 10/10/18 at 22:00 Metoprolol Tartrate (Lopressor) 25 mg BID PO Last administered on 10/20/18 08:06; Admin Dose 25 MG; Start 10/12/18 at 15:00 Metoprolol Tartrate (Lopressor) 5 mg Q4H PRN IV HR>110 Hold SBP<100 Last admin istered on 10/20/18 11:40; Admin Dose 5 MG; Start 10/12/18 at 15:00 Enoxaparin Sodium (Lovenox) 70 mg DAILY SC Last administered on 10/20/18 08:16; Admin Dose 70 MG; Start 10/14/18 at 09:00 Levetiracetam (Keppra Liquid) 1,000 mg BID GTB Last administered on 10/20/18 08:07; Admin Dose 1,000 MG; Start 10/14/18 at 21:00 Valproate Sodium (Depakene Liquid Cup) 1,000 mg Q6H GTB Last administered on 10/20/18 08:07; Admin Dose 1,000 MG; Start 10/16/18 at 09:00 Lorazepam (Ativan) 1 mg Q4H PRN IV SEIZURES Last administered on 10/20/18 08:20; Admin Dose 1 MG; Start 10/16/18 at 12:00 Cefepime HCl 50 ml @ 100 mls/hr Q12 IVPB Last administered on 10/20/18 08:07; Admin Dose 100 MLS/HR; Start 10/16/18 at 21:00 Morphine Sulfate (morphine) 1 mg Q4H PRN IV .SEVERE PAIN 7-10 Last administered on 10/19/18 08:27; Admin Dose 1 MG; Start 10/16/18 at 15:45 Epoetin Nile (Epogen (Non Esrd/Non Oncology)) 6,000 units MoWeFr@17 SC Last administered on 10/18/18 17:09; Admin Dose 6,000 UNITS; Start 10/18/18 at 17:00 Furosemide (Lasix) 20 mg DAILY@0600 IV Last administered on 10/20/18 05:56; Admin Dose 20 MG; Start 10/18/18 at 12:30 Quetiapine Fumarate (Seroquel) 12.5 mg QID PRN NGT anxiety/agitation Last administered on 10/18/18 14:38; Admin Dose 12.5 MG; Start 10/18/18 at 14:30 Quetiapine Fumarate (Seroquel) 12.5 mg QHS NGT Last administered on 10/19/18 21:37; Admin Dose 12.5 MG; Start 10/19/18 at 21:00 Assessment/Plan Assessment/Plan (Daily) IMP: 1. Status post septic Shock: likely due to urinary tract infection 2. Respiratory Failure 2/2 #1--airway protection questionable. Notable secretions noted, need for suctioning. 3. UMBERTO-- pre-renal vs. ATN 2/2 #1 4. NSTEMI: type II 5. Afib with RVR--now in SR 6. History of dementia 7. Anemia 8. HTN RECS: 1. Strict aspiration precautions 2. Continue TFs 3. Aggressive suctioning/CPT 4. Start antihypertensive Rx 5. Continue seroquel; avoid benzos Critical care time 40 minutes MARICEL REDDY MD Oct 20, 2018 11:52
[2018-10-20] MEDS: ALBUTEROL/IPRATROPIUM (NEB) 3 ML AMP HHN PRN ×2 (11:58→20:12)
[2018-10-20] MEDS: morphine 2 MG INJ IV PRN (12:09)
[2018-10-20] MEDS: DONEPEZIL 5 MG TAB PO SCH (20:37)
[2018-10-20] MEDS: ATORVASTATIN 40 MG TAB NGT SCH (20:37)
[2018-10-20] MEDS: QUETIAPINE 25 MG TAB NGT SCH (20:38)
[2018-10-21] VITALS (11 sets, daily range): BP systolic 127–172; BP diastolic 61–94; PULSE 74–102; RESP 20–22
[2018-10-21] MEDS: VALPROIC ACID LIQUID CUP 250 MG/5 ML CUP GTB SCH ×4 (03:28→21:23)
[2018-10-21] MEDS: LEVOTHYROXINE 50 MCG TAB PO SCH (05:33)
[2018-10-21] MEDS: FUROSEMIDE 20 MG INJ IV SCH (05:34)
[2018-10-21] MEDS ORDERED: PENDING SANTYL ORDER FOR WOUND CARE XX PRN (07:30)
[2018-10-21] MEDS: BALSAM PERU/CASTOR OIL 60 GM TUBE TOP SCH (09:00)
[2018-10-21] MEDS: CEFEPIME 1GM/50 ML (PMX) 50 ML IVPB SCH (09:01)
[2018-10-21] MEDS: FAMOTIDINE 20 MG TAB NGT SCH (09:02)
[2018-10-21] MEDS: MULTIVITAMINS THERAPEUTIC TAB PO SCH (09:02)
[2018-10-21] MEDS: METOPROLOL 25 MG TAB PO SCH ×2 (09:03→21:22)
[2018-10-21] MEDS: AMIODARONE 200 MG TAB PO SCH ×2 (09:03→21:22)
[2018-10-21] MEDS: LEVETIRACETAM (100 MG/ML) 5ML CUP GTB SCH ×2 (09:05→21:23)
[2018-10-21] MEDS: ENOXAPARIN 100 MG/ML SYG SC SCH (09:55)
--- NOTE | 2018-10-21 11:39 | CONS ---
Assessment/Plan Assessment/Plan Hospital Course (Demo Recall) No acute events overnight patient is noncommunicative lying comfortably in bed, tolerates tube feedings, no fevers WBC today 6, no shift no bands BUN 22 creatinine 0.82 Allergy: Penicillin, clindamycin Antibiotics: Cefepime Physical examination: Well-developed chronically ill-appearing elderly woman. The patient is in no distress. Head atraumatic normocephalic. Neck is supple. Chest rise symmetrical, breath sounds diminished bases. Heart: S1-S2, tachycardic, irregular. Abdomen soft bowel sounds hypoactive. Extremities mottled cyanotic Assessment: 1. Sepsis==> resolving 2. E coli bacteremia secondary to urinary tract infection 3. Acute hypoxemic respiratory failure 4. Healthcare associated pneumonia, possibly aspiration 4. Acute possibly on chronic kidney disease 5. Non-ST elevation CA 6. Atrial fibrillation status post RVR 7. Seizures Plan: Patient remains stable, DC antibiotics and observe Consultation Date/Type/Reason Admit Date/Time Oct 06, 2018 at 09:29 Initial Consult Date 10/06/18 Type of Consult id Requesting Provider: MANUEL ALEMAN Date/Time of Note DATE: 10/21/18 TIME: 11:39 Exam/Review of Systems Exam Vitals Vital Signs Date Temp Pulse Resp B/P (MAP) Pulse Ox O2 O2 Flow FiO2 Time Delivery Rate 10/21/18 98.3 75 22 129/61 91 11:23 (83) 10/21/18 Nasal 2.0 10:53 Cannula 10/18/18 30 09:25 Intake and Output 10/20/18 10/20/18 10/21/18 1414:59 22:59 06:59 IntakeIntake Total 640 ml 740 ml 635 ml OutputOutput Total 1200 ml 820 ml 600 ml BalanceBalance -560 ml -80 ml 35 ml Results Result Diagram: 10/21/18 0549 10/21/18 0549 Results 24hrs Laboratory Tests Test 10/21/18 05:49 White Blood Count 6.0 Red Blood Count 2.75 L Hemoglobin 8.5 L Hematocrit 26.5 L Mean Corpuscular Volume 96.4 Mean Corpuscular Hemoglobin 30.9 Mean Corpuscular Hemoglobin Concent 32.1 Red Cell Distribution Width 15.4 H Platelet Count 415 Mean Platelet Volume 10.9 H Immature Granulocytes % 0.700 H Neutrophils % 63.4 Lymphocytes % 27.9 Monocytes % 7.4 Eosinophils % 0.3 Basophils % 0.3 Nucleated Red Blood Cells % 0.0 Immature Granulocytes # 0.040 H Neutrophils # 3.8 Lymphocytes # 1.7 Monocytes # 0.4 Eosinophils # 0.0 Basophils # 0.0 Nucleated Red Blood Cells # 0.0 Sodium Level 141 Potassium Level 4.3 Chloride Level 106 Carbon Dioxide Level 28 Anion Gap 7 Blood Urea Nitrogen 22 H Creatinine 0.82 Est Glomerular Filtrat Rate mL/min > 60 Glucose Level 99 Calcium Level 8.9 Medications Medication Current Medications IV Flush (NS 3 ml) 3 ml PER PROTOCOL IV ; Start 10/06/18 at 09:30 Ondansetron HCl (Zofran Inj) 4 mg Q6H PRN IV NAUSEA/VOMITING; Start 10/06/18 at 09:30 Acetaminophen (Tylenol Tab) 650 mg Q6H PRN PO .PAIN 1-3 OR TEMP Last administered on 10/12/18at 08:27; Admin Dose 650 MG; Start 10/06/18 at 09:30 Acetaminophen/ Hydrocodone Bitart ([place] (5/325)) 1 tab Q6H PRN PO .MOD PAIN 4- 6; Start 10/06/18 at 09:30 Docusate Sodium (Colace) 100 mg Q12H PRN PO .CONSTIPATION; Start 10/06/18 at 09:30 Magnesium Hydroxide (Milk Of Mag) 30 ml DAILY PRN PO .CONSTIPATION; Start 10/06/18 at 09:30 Albuterol/ Ipratropium (Duoneb) 3 ml Q4H RESP THERAPY PRN HHN SHORTNESS OF BREATH Last administered on 10/20/18at 20:12; Admin Dose 3 ML; Start 10/06/18 at 09:30 Nitroglycerin (Nitroglycerin (Sl Tab) 0.4 Mg) 1 tab Q5M PRN SL ANGINA; Start 10/06/18 at 09:30 Bisacodyl (Dulcolax) 10 mg DAILY PRN PO CONSTIPATION; Start 10/06/18 at 09:30 Donepezil HCl (Aricept) 5 mg QHS PO Last administered on 10/20/18at 20:37; Admin Dose 5 MG; Start 10/06/18 at 21:00 Lactulose (Enulose) 20 gm TID PRN PO CONSTIPATION; Start 10/06/18 at 09:30 Levothyroxine Sodium (Synthroid) 50 mcg BEFORE BREAKFAST PO Last administered on 10/21/18 05:33; Admin Dose 50 MCG; Start 10/07/18 at 07:00 Mineral Oil (Fleet Mineral Oil Enema) 133 ml DAILY PRN [place] CONSTIPATION; Start 10/06/18 at 09:30 Multivitamins Therapeutic (Theragran) 1 tab DAILY PO Last administered on 10/21/18 09:02; Admin Dose 1 TAB; Start 10/07/18 at 09:00 Aspirin (Aspirin) 81 mg DAILY NGT Last administered on 10/11/18 09:35; Admin Dose 81 MG; Start 10/06/18 at 12:30; Status Hold Atorvastatin Calcium (Lipitor) 40 mg DAILY@21 NGT Last administered on 20:37; Admin Dose 40 MG; Start 10/06/18 at 21:00 Miscellaneous Information (Flu Vaccine Previously Dispensed) FLU VACCINE PREVIOU... NOTE PRN XX NOTE; Start 10/06/18 at 18:00 Amiodarone HCl (Cordarone) 200 mg BID PO Last administered on 10/21/18 09:03; Admin Dose 200 MG; Start 10/09/18 at 21:00 Famotidine (Pepcid) 20 mg DAILY NGT Last administered on 10/21/18 09:02; Admin Dose 20 MG; Start 10/10/18 at 09:00 Polyethylene Glycol (Miralax) 17 gm BID PRN PO constipation; Start 10/10/18 at 22:00 Metoprolol Tartrate (Lopressor) 25 mg BID PO Last administered on 10/21/18 09:03; Admin Dose 25 MG; Start 10/12/18 at 15:00 Metoprolol Tartrate (Lopressor) 5 mg Q4H PRN IV HR>110 Hold SBP<100 Last administered on 10/20/18 11:40; Admin Dose 5 MG; Start 10/12/18 at 15:00 Enoxaparin Sodium (Lovenox) 70 mg DAILY SC Last administered on 10/21/18 09:55; Admin Dose 70 MG; Start 10/14/18 at 09:00 Levetiracetam (Keppra Liquid) 1,000 mg BID GTB Last administered on 10/21/18 09:05; Admin Dose 1,000 MG; Start 10/14/18 at 21:00 Valproate Sodium (Depakene Liquid Cup) 1,000 mg Q6H GTB Last administered on 10/21/18 09:04; Admin Dose 1,000 MG; Start 10/16/18 at 09:00 Lorazepam (Ativan) 1 mg Q4H PRN IV SEIZURES Last administered on 10/20/18 08:20; Admin Dose 1 MG; Start 10/16/18 at 12:00 Cefepime HCl 50 ml @ 100 mls/hr Q12 IVPB Last administered on 10/21/18 09:01; Admin Dose 100 MLS/HR; Start 10/16/18 at 21:00 Morphine Sulfate (morphine) 1 mg Q4H PRN IV .SEVERE PAIN 7-10 Last administered on 10/20/18 12:09; Admin Dose 1 MG; Start 10/16/18 at 15:45 Epoetin Nile (Epogen (Non Esrd/Non Oncology)) 6,000 units MoWeFr@17 SC Last administered on 10/18/18 17:09; Admin Dose 6,000 UNITS; Start 10/18/18 at 17:00 Furosemide (Lasix) 20 mg DAILY@0600 IV Last administered on 10/21/18 05:34; Admin Dose 20 MG; Start 10/18/18 at 12:30 Quetiapine Fumarate (Seroquel) 12.5 mg QID PRN NGT anxiety/agitation Last administered on 10/18/18 14:38; Admin Dose 12.5 MG; Start 10/18/18 at 14:30 Quetiapine Fumarate (Seroquel) 12.5 mg QHS NGT Last administered on 10/20/18 20:38; Admin Dose 12.5 MG; Start 10/19/18 at 21:00 Hydralazine HCl (Apresoline) 25 mg Q6 NGT Last administered on 10/21/18 05:33; Admin Dose 25 MG; Start 10/20/18 at 12:00 Hydralazine HCl (Apresoline) 5 mg Q8H PRN IV sbp >160; Start 10/20/18 at 12:00 Miscellaneous Information (Pending Santyl Order For Wound Care) This patient martin... PRN PRN XX WOUND CARE; Start 10/21/18 at 07:30 MARKOS BRADY NP Oct 21, 2018 11:39
--- NOTE | 2018-10-21 12:21 | CONS ---
Assessment/Plan Assessment/Plan Hospital Course (Demo Recall) IMP: 1. Nstemi- in setting of renal failure and shock. Downtrended 2.Shock-improved off pressors with actual HTN now 3.Tachycardia-S tach at this time 4.UTI 5.PAF with RVR-now back in SR this AM 6.Renal failure 7.Dyslipidemia 8.Sz d/o 9. Hypothyroid 10. anemia-s/p transfusions 11. Resp failure s/p extubation this am Recc: -ICU -Contineu current BB/hydralazine -Follow rhythm and rate closely -Continue abx's and f/u cx data -Continue statin -now in SR on po amio. Will follow rhythm clsoely -Lovenox as tolerated only given anemia requiring transfusions and should be increased to BID as tolerated given improved drum carrier now -dose of lasix and follow resp status closely Consultation Date/Type/Reason Admit Date/Time Oct 06, 2018 at 09:29 Initial Consult Date 10/06/18 Type of Consult Cardiology Reason for Consultation AF Requesting Provider: MANUEL ALEMAN Date/Time of Note DATE: 10/21/18 TIME: 12:17 Exam/Review of Systems Vital Signs Vitals Vital Signs Date Temp Pulse Resp B/P (MAP) Pulse Ox O2 O2 Flow FiO2 Time Delivery Rate 10/21/18 98.3 75 22 129/61 91 11:23 (83) 10/21/18 Nasal 2.0 10:53 Cannula 10/18/18 30 09:25 Intake and Output 10/20/18 10/20/18 10/21/18 1515:00 23:00 07:00 IntakeIntake Total 540 ml 685 ml 635 ml OutputOutput Total 1150 ml 720 ml 600 ml BalanceBalance -610 ml -35 ml 35 ml Exam Exam Review of Systems: CONSTITUTIONAL: No fevers, chills. PULMONARY: No sob CARDIOVASCULAR: No chest pain/palpitations GASTROINTESTINAL: No nausea/vomiting. GENITOURINARY: No hematuria/dysuria. MUSCULOSKELETAL: No myagias/arthalgias. PSYCHIATRIC: The patient denies depression. NEUROLOGIC: No weakness Constitutional: alert Psych: no complaints Head: normocephalic ENMT: mucosa pink and moist Neck: supple, jvd Respiratory: diminished breath sounds (at bases/B) Cardiovascular: regular rate and rhythm Gastrointestinal: soft, non-tender Musculoskeletal: muscle tone (normal) Extremities: edema (none) Neurological: other (No focal deficits) Labs Result Diagram: 10/21/18 0549 10/21/18 0549 Results 24hrs Laboratory Tests Test 10/21/18 05:49 White Blood Count 6.0 Red Blood Count 2.75 L Hemoglobin 8.5 L Hematocrit 26.5 L Mean Corpuscular Volume 96.4 Mean Corpuscular Hemoglobin 30.9 Mean Corpuscular Hemoglobin Concent 32.1 Red Cell Distribution Width 15.4 H Platelet Count 415 Mean Platelet Volume 10.9 H Immature Granulocytes % 0.700 H Neutrophils % 63.4 Lymphocytes % 27.9 Monocytes % 7.4 Eosinophils % 0.3 Basophils % 0.3 Nucleated Red Blood Cells % 0.0 Immature Granulocytes # 0.040 H Neutrophils # 3.8 Lymphocytes # 1.7 Monocytes # 0.4 Eosinophils # 0.0 Basophils # 0.0 Nucleated Red Blood Cells # 0.0 Sodium Level 141 Potassium Level 4.3 Chloride Level 106 Carbon Dioxide Level 28 Anion Gap 7 Blood Urea Nitrogen 22 H Creatinine 0.82 Est Glomerular Filtrat Rate mL/min > 60 Glucose Level 99 Calcium Level 8.9 Medications Medications Current Medications IV Flush (NS 3 ml) 3 ml PER PROTOCOL IV ; Start 10/06/18 at 09:30 Ondansetron HCl (Zofran Inj) 4 mg Q6H PRN IV NAUSEA/VOMITING; Start 10/06/18 at 09:30 Acetaminophen (Tylenol Tab) 650 mg Q6H PRN PO .PAIN 1-3 OR TEMP Last administered on 10/12/18at 08:27; Admin Dose 650 MG; Start 10/06/18 at 09:30 Acetaminophen/ Hydrocodone Bitart ([place] (5/325)) 1 tab Q6H PRN PO .MOD PAIN 4- 6; Start 10/06/18 at 09:30 Docusate Sodium (Colace) 100 mg Q12H PRN PO .CONSTIPATION; Start 10/06/18 at 09:30 Magnesium Hydroxide (Milk Of Mag) 30 ml DAILY PRN PO .CONSTIPATION; Start 10/06/18 at 09:30 Albuterol/ Ipratropium (Duoneb) 3 ml Q4H RESP THERAPY PRN HHN SHORTNESS OF BREATH Last administered on 10/20/18at 20:12; Admin Dose 3 ML; Start 10/06/18 at 09:30 Nitroglycerin (Nitroglycerin (Sl Tab) 0.4 Mg) 1 tab Q5M PRN SL ANGINA; Start 10/06/18 at 09:30 Bisacodyl (Dulcolax) 10 mg DAILY PRN PO CONSTIPATION; Start 10/06/18 at 09:30 Donepezil HCl (Aricept) 5 mg QHS PO Last administered on 10/20/18 20:37; Admin Dose 5 MG; Start 10/06/18 at 21:00 Lactulose (Enulose) 20 gm TID PRN PO CONSTIPATION; Start 10/06/18 at 09:30 Levothyroxine Sodium (Synthroid) 50 mcg BEFORE BREAKFAST PO Last administered on 10/21/18 05:33; Admin Dose 50 MCG; Start 10/07/18 at 07:00 Mineral Oil (Fleet Mineral Oil Enema) 133 ml DAILY PRN [place] CONSTIPATION; Start 10/06/18 at 09:30 Multivitamins Therapeutic (Theragran) 1 tab DAILY PO Last administered on 10/21/18 09:02; Admin Dose 1 TAB; Start 10/07/18 at 09:00 Aspirin (Aspirin) 81 mg DAILY NGT Last administered on 10/11/18 09:35; Admin Dose 81 MG; Start 10/06/18 at 12:30; Status Hold Atorvastatin Calcium (Lipitor) 40 mg DAILY@21 NGT Last administered on 10/20/18 20:37; Admin Dose 40 MG; Start 10/06/18 at 21:00 Miscellaneous Information (Flu Vaccine Previously Dispensed) FLU VACCINE PREVIOU... NOTE PRN XX NOTE; Start 10/06/18 at 18:00 Amiodarone HCl (Cordarone) 200 mg BID PO Last administered on 10/21/18 09:03; Admin Dose 200 MG; Start 10/09/18 at 21:00 Famotidine (Pepcid) 20 mg DAILY NGT Last administered on 10/21/18 09:02; Admin Dose 20 MG; Start 10/10/18 at 09:00 Polyethylene Glycol (Miralax) 17 gm BID PRN PO constipation; Start 10/10/18 at 22:00 Metoprolol Tartrate (Lopressor) 25 mg BID PO Last administered on 10/21/18 09:03; Admin Dose 25 MG; Start 10/12/18 at 15:00 Metoprolol Tartrate (Lopressor) 5 mg Q4H PRN IV HR>110 Hold SBP<100 Last administered on 10/20/18 11:40; Admin Dose 5 MG; Start 10/12/18 at 15:00 Enoxaparin Sodium (Lovenox) 70 mg DAILY SC Last administered on 10/21/18 09:55; Admin Dose 70 MG; Start 10/14/18 at 09:00 Levetiracetam (Keppra Liquid) 1,000 mg BID GTB Last administered on 10/21/18 09:05; Admin Dose 1,000 MG; Start 10/14/18 at 21:00 Valproate Sodium (Depakene Liquid Cup) 1,000 mg Q6H GTB Last administered on 10/21/18 09:04; Admin Dose 1,000 MG; Start 10/16/18 at 09:00 Lorazepam (Ativan) 1 mg Q4H PRN IV SEIZURES Last administered on 10/20/18 08:20; Admin Dose 1 MG; Start 10/16/18 at 12:00 Morphine Sulfate (morphine) 1 mg Q4H PRN IV .SEVERE PAIN 7-10 Last administered on 10/20/18 12:09; Admin Dose 1 MG; Start 10/16/18 at 15:45 Epoetin Nile (Epogen (Non Esrd/Non Oncology)) 6,000 units MoWeFr@17 SC Last administered on 10/18/18 17:09; Admin Dose 6,000 UNITS; Start 10/18/18 at 17:00 Furosemide (Lasix) 20 mg DAILY@0600 IV Last administered on 10/21/18 05:34; Admin Dose 20 MG; Start 10/18/18 at 12:30 Quetiapine Fumarate (Seroquel) 12.5 mg QID PRN NGT anxiety/agitation Last administered on 10/18/18 14:38; Admin Dose 12.5 MG; Start 10/18/18 at 14:30 Quetiapine Fumarate (Seroquel) 12.5 mg QHS NGT Last administered on 10/20/18 20:38; Admin Dose 12.5 MG; Start 10/19/18 at 21:00 Hydralazine HCl (Apresoline) 25 mg Q6 NGT Last administered on 10/21/18at 05:33; Admin Dose 25 MG; Start 10/20/18 at 12:00 Hydralazine HCl (Apresoline) 5 mg Q8H PRN IV sbp >160; Start 10/20/18 at 12:00 [facility] This patient martin... PRN PRN XX WOUND CARE; Start 10/21/18 at 07:30 ANGELA CARY Oct 21, 2018 12:21
--- NOTE | 2018-10-21 14:18 | CONS ---
Assessment/Plan Assessment/Plan Hospital Course 67 F c/ dementia, epilepsy, and other comorbidities, who presents for management of cardiopulmonary Sx. She was noted to have a generalized convulsion on 10/08, for which neurology is consulted... Certainly her acute illness is lowering her seizure threshold.. CTH is without acute intracranial pathology EEG is notable for severe left hemispheric on diffuse slowing 10/12: breakthrough seizure --> ativan rescue Repeat EEG, 10/14, is without evidence of nonconvulsive status. P: Cont depakote 1g qid for now Cont maintenance Keppra 1000mg bid for now Ativan iv prn prolonged seizure or cluster OK to continue asa for primary stroke prevention daily given her afib Add low dose seroquel prn agitation Continued medical management per primary Will follow clinically Consultation Date/Type/Reason Admit Date/Time Oct 06, 2018 at 09:29 Type of Consult Neurology Reason for Consultation seizure Requesting Provider: MANUEL ALEMAN Date/Time of Note DATE: 10/21/18 TIME: 14:18 24 HR Interval Summary Free Text/Dictation Transferred to telemetry. No acute events reported. Pt remains unable to meaningfully contribute. Exam Vital Signs Vitals Vital Signs Date Temp Pulse Resp B/P (MAP) Pulse Ox O2 O2 Flow FiO2 Time Delivery Rate 10/21/18 79 12:01 10/21/18 98.3 22 129/61 91 11:23 (83) 10/21/18 Nasal 2.0 10:53 Cannula 10/18/18 30 09:25 Intake and Output 10/20/18 10/20/18 10/21/18 1515:00 23:00 07:00 IntakeIntake Total 540 ml 685 ml 635 ml OutputOutput Total 1150 ml 720 ml 600 ml BalanceBalance -610 ml -35 ml 35 ml Exam PE: Gen Appearance: Calm, NAD HEENT: Normocephalic Cardiovascular: Regular rate Abdomen: Soft Extremities: Dry NE: The patient was asleep, though arousable to voice. Incomprehensibly verbal. Able to track. Unable to follow commands. Cranial nerve examination was limited by mental status. Pupils were equal and reactive to light. There was no afferent pupillary defect. Funduscopic ex amination was limited. Face was grossly symmetric, w/ present corneal and cough reflexes. Tone was slightly increased in her LUE. Muscle bulk was normal. No fasciculations were noted. The patient withdrew all extremities. Coordination and gait testing was limited by mental status. Arm and leg reflexes were symmetric. Beck's sign was absent. Plantar responses were flexor. CHEYENNE JEAN NP Oct 21, 2018 14:18
--- NOTE | 2018-10-21 14:47 | CONS ---
Consult Date/Type/Reason Admit Date/Time Oct 06, 2018 at 09:29 Initial Consult Date 10/06/18 Type of Consult Pulmonary Requesting Provider: MANUEL ALEMAN Date/Time of Note DATE: 10/21/18 TIME: 14:38 Subjective Patient is comfortable this morning less agitation no respiratory distress Objective Vital Signs Date Temp Pulse Resp B/P (MAP) Pulse Ox O2 O2 Flow FiO2 Time Delivery Rate 10/21/18 79 12:01 10/21/18 98.3 22 129/61 91 11:23 (83) 10/21/18 Nasal 2.0 10:53 Cannula 10/18/18 30 09:25 Intake and Output 10/20/18 10/20/18 10/21/18 1515:00 23:00 07:00 IntakeIntake Total 540 ml 685 ml 635 ml OutputOutput Total 1150 ml 720 ml 600 ml BalanceBalance -610 ml -35 ml 35 ml Exam GENERAL: VITAL SIGNS: per chart NECK: Supple. No JVD or lymphadenopathy. CARDIAC EXAM: S1, S2. No added sounds or murmurs. CHEST: clear bilaterally, No added sounds, rales or wheezes ABDOMEN: Soft, nontender. No guarding or rebound. EXTREMITIES: No cyanosis, clubbing or edema. NEUROLOGIC: Generalized weakness. Vent Setting Ventilator Support Mode: CPAP, PS, SPONT Fraction of Inspired Oxygen pe: 30 Positive End Expiratory Pressu: 5.0 Results/Medications Result Diagram: 10/21/18 0549 10/21/18 0549 Results 24 hrs Laboratory Tests Test 10/21/18 05:49 White Blood Count 6.0 Red Blood Count 2.75 L Hemoglobin 8.5 L Hematocrit 26.5 L Mean Corpuscular Volume 96.4 Mean Corpuscular Hemoglobin 30.9 Mean Corpuscular Hemoglobin Concent 32.1 Red Cell Distribution Width 15.4 H Platelet Count 415 Mean Platelet Volume 10.9 H Immature Granulocytes % 0.700 H Neutrophils % 63.4 Lymphocytes % 27.9 Monocytes % 7.4 Eosinophils % 0.3 Basophils % 0.3 Nucleated Red Blood Cells % 0.0 Immature Granulocytes # 0.040 H Neutrophils # 3.8 Lymphocytes # 1.7 Monocytes # 0.4 Eosinophils # 0.0 Basophils # 0.0 Nucleated Red Blood Cells # 0.0 Sodium Level 141 Potassium Level 4.3 Chloride Level 106 Carbon Dioxide Level 28 Anion Gap 7 Blood Urea Nitrogen 22 H Creatinine 0.82 Est Glomerular Filtrat Rate mL/min > 60 Glucose Level 99 Calcium Level 8.9 Medications Current Medications IV Flush (NS 3 ml) 3 ml PER PROTOCOL IV ; Start 10/06/18 at 09:30 Ondansetron HCl (Zofran Inj) 4 mg Q6H PRN IV NAUSEA/VOMITING; Start 10/06/18 at 09:30 Acetaminophen (Tylenol Tab) 650 mg Q6H PRN PO .PAIN 1-3 OR TEMP Last administered on 10/12/18at 08:27; Admin Dose 650 MG; Start 10/06/18 at 09:30 Acetaminophen/ Hydrocodone Bitart ([place] (5/325)) 1 tab Q6H PRN PO .MOD PAIN 4-6; Start 10/06/18 at 09:30 Docusate Sodium (Colace) 100 mg Q12H PRN PO .CONSTIPATION; Start 10/06/18 at 09:30 Magnesium Hydroxide (Milk Of Mag) 30 ml DAILY PRN PO .CONSTIPATION; Start 10/06/18 at 09:30 Albuterol/ Ipratropium (Duoneb) 3 ml Q4H RESP THERAPY PRN HHN SHORTNESS OF BREATH Last administered on 10/20/18at 20:12; Admin Dose 3 ML; Start 10/06/18 at 09:30 Nitroglycerin (Nitroglycerin (Sl Tab) 0.4 Mg) 1 tab Q5M PRN SL ANGINA; Start 10/06/18 at 09:30 Bisacodyl (Dulcolax) 10 mg DAILY PRN PO CONSTIPATION; Start 10/06/18 at 09:30 Donepezil HCl (Aricept) 5 mg QHS PO Last administered on 10/20/18at 20:37; Admin Dose 5 MG; Start 10/06/18 at 21:00 Lactulose (Enulose) 20 gm TID PRN PO CONSTIPATION; Start 10/06/18 at 09:30 Levothyroxine Sodium (Synthroid) 50 mcg BEFORE BREAKFAST PO Last administered on 10/21/18at 05:33; Admin Dose 50 MCG; Start 10/07/18 at 07:00 Mineral Oil (Fleet Mineral Oil Enema) 133 ml DAILY PRN [place] CONSTIPATION; Start 10/06/18 at 09:30 Multivitamins Therapeutic (Theragran) 1 tab DAILY PO Last administered on 10/21/18 09:02; Admin Dose 1 TAB; Start 10/07/18 at 09:00 Aspirin (Aspirin) 81 mg DAILY NGT Last administered on 10/11/18 09:35; Admin Dose 81 MG; Start 10/06/18 at 12:30; Status Hold Atorvastatin Calcium (Lipitor) 40 mg DAILY@21 NGT Last administered on 10/20/18 at 20:37; Admin Dose 40 MG; Start 10/06/18 at 21:00 Miscellaneous Information (Flu Vaccine Previously Dispensed) FLU VACCINE PREVIOU... NOTE PRN XX NOTE; Start 10/06/18 at 18:00 Amiodarone HCl (Cordarone) 200 mg BID PO Last administered on 10/21/18 09:03; Admin Dose 200 MG; Start 10/09/18 at 21:00 Famotidine (Pepcid) 20 mg DAILY NGT Last administered on 10/21/18 09:02; Admin Dose 20 MG; Start 10/10/18 at 09:00 Polyethylene Glycol (Miralax) 17 gm BID PRN PO constipation; Start 10/10/18 at 22:00 Metoprolol Tartrate (Lopressor) 25 mg BID PO Last administered on 10/21/18 09:03; Admin Dose 25 MG; Start 10/12/18 at 15:00 Metoprolol Tartrate (Lopressor) 5 mg Q4H PRN IV HR>110 Hold SBP<100 Last administered on 10/20/18 11:40; Admin Dose 5 MG; Start 10/12/18 at 15:00 Enoxaparin Sodium (Lovenox) 70 mg DAILY SC Last administered on 10/21/18 09:55; Admin Dose 70 MG; Start 10/14/18 at 09:00 Levetiracetam (Keppra Liquid) 1,000 mg BID GTB Last administered on 10/21/18 09:05; Admin Dose 1,000 MG; Start 10/14/18 at 21:00 Valproate Sodium (Depakene Liquid Cup) 1,000 mg Q6H GTB Last administered on 10/21/18 09:04; Admin Dose 1,000 MG; Start 10/16/18 at 09:00 Lorazepam (Ativan) 1 mg Q4H PRN IV SEIZURES Last administered on 10/20/18 08:20; Admin Dose 1 MG; Start 10/16/18 at 12:00 Morphine Sulfate (morphine) 1 mg Q4H PRN IV .SEVERE PAIN 7-10 Last administered on 10/20/18 12:09; Admin Dose 1 MG; Start 10/16/18 at 15:45 Epoetin Nile (Epogen (Non Esrd/Non Oncology)) 6,000 units MoWeFr@17 SC Last administered on 10/18/18 17:09; Admin Dose 6,000 UNITS; Start 10/18/18 at 17:00 Furosemide (Lasix) 20 mg DAILY@0600 IV Last administered on 10/21/18 05:34; Admin Dose 20 MG; Start 10/18/18 at 12:30 Quetiapine Fumarate (Seroquel) 12.5 mg QID PRN NGT anxiety/agitation Last administered on 10/18/18 14:38; Admin Dose 12.5 MG; Start 10/18/18 at 14:30 Quetiapine Fumarate (Seroquel) 12.5 mg QHS NGT Last administered on 10/20/18 20:38; Admin Dose 12.5 MG; Start 10/19/18 at 21:00 Hydralazine HCl (Apresoline) 25 mg Q6 NGT Last administered on 10/21/18 05:33; Admin Dose 25 MG; Start 10/20/18 at 12:00 Hydralazine HCl (Apresoline) 5 mg Q8H PRN IV sbp >160; Start 10/20/18 at 12:00 [facility] This patient martin... PRN PRN XX WOUND CARE; Start 10/21/18 at 07:30 Assessment/Plan Hospital Course (Demo Recall) IMP: 1. Status post septic Shock: likely due to urinary tract infection 2. Respiratory Failure 2/2 #1--airway protection questionable. Notable secretions noted, need for suctioning. 3. UMBERTO-- pre-renal vs. ATN 2/2 #1 4. NSTEMI: type II 5. Afib with RVR--now in SR 6. History of dementia 7. Anemia 8. HTN RECS: 1. Strict aspiration precautions 2. Continue TFs 3. Aggressive suctioning/CPT 4. Start antihypertensive Rx 5. Continue seroquel; avoid benzos PETER ARAUZ MD, [facility] Oct 21, 2018 14:47
--- NOTE | 2018-10-21 16:22 | PN ---
Date/Time of Note Date/Time of Note DATE: 10/21/18 TIME: 16:16 Assessment/Plan VTE Prophylaxis Risk score (from Ns)>0 risk: 7 SCD applied (from Ns): Yes Pharmacological prophylaxis: LMWH Lines/Catheters IV [facility]ter Type (from [facility] Peripheral IV Urinary Cath still in place: Yes Reason Cath still needed: other (indicate) (severe dementia) Assessment/Plan Assessment/Plan 67-year-old female coming in with signs of septic shock, likely secondary to urinary tract infection and pneumonia, elevated troponins, acute renal insufficiency, now intubated on pressor support. Also presented with atrial fibrillation with rapid ventricular response, now in normal sinus rhythm. #Septic shock and respiratory failure -ID Dr. Sanford following - Likely due to UTI - Urine cultures and Blood cultures growing E Coli x2 -has been off vasopressor support. -Patient extubated 10/18, presently on 2 L nasal cannula oxygen -Continue current broad-spectrum antibiotics, Tylenol p.r.n. pain and fevers. -Follow pulmonary recommendations #Seizure - Morning of 10/08 had whole body twitching concerning for seizures; got Ativan then Versed. Again on 10/11 had a similar episode broken with Ativan -10/08/18 EEG appears to have localized lesion but CT head is negative. Repeat EEG from 10/15/18 results noted, neuro following. - Continue keppra, valproic acid, follow-up neurology recommendations - Holding versed, but continue Ativan as needed - Low-dose Seroquel as needed for agitation # NSTEMI - Unclear if this is true non-ST elevation myocardial infarction versus demand ischemia- s/p heparin gtt earlier this admission. - Continue high dose aspirin. - Continue Lipitor. - Cardiology Dr. Mello consulted, follow-up their recommendations -continue medical management #A fib with RVR, paroxysmal-stable, Dr. Mello following- Converted to normal sinus after getting Cardizem in ED-apparently went back in A fib later, now the last few days has been in normal sinus rhythm -Monitor heart rate for now, follow cardiology recommendations -Continue p.o. beta-panda and p.o. amiodarone for now # Renal insufficiency - improving- Not anuric - Dr. Davila consulted, monitor for now # Hypothyroidism - Continue current thyroid medicines. - Low TSH, normal fT4 consistent with sick euthyroid syndrome. # History of dementia. - Continue Aricept for now. # History of high cholesterol. - Cont statin #Anemia: Unclear source, hemoglobin in the high 7 - low 8 range; PRBC transfusion performed a few days ago -Monitor CBC daily #Hypernatremia: Resolved now -Monitor, continue current IV fluids # Gastrointestinal prophylaxis- H2 panda. # Deep venous thrombosis prophylaxis - due to anemia- SCDs Dispo: Bioethics meeting held earlier - for now there is no change in the CODE STATUS. Patient requires reintubation, will need to reconsult bioethics team for consideration of tracheostomy at that time if necessary. Result Diagram: 10/21/18 0549 10/21/18 0549 Subjective 24 Hr Interval Summary Free Text/Dictation No acute overnight events. On my exam she was moaning and gurgling on secretions. Improved after suctioning. Exam/Review of Systems Exam Vitals Vital Signs Date Temp Pulse Resp B/P (MAP) Pulse Ox O2 O2 Flow FiO2 Time Delivery Rate 10/21/18 99.1 74 20 143/68 98 15:24 (93) 10/21/18 Nasal 2.0 10:53 Cannula 10/18/18 30 09:25 Intake and Output 10/20/18 10/20/18 10/21/18 1515:00 23:00 07:00 IntakeIntake Total 540 ml 685 ml 635 ml OutputOutput Total 1150 ml 720 ml 600 ml BalanceBalance -610 ml -35 ml 35 ml Exam GENERAL: lying in bed, opens eyes and moans occasionally HEENT: Moist mucous membranes NECK: Supple, no thyromegaly. LUNGS: Mechanical breath sounds equal bilaterally. CARDIOVASCULAR: S1, S2 heard. No rubs or gallops. ABDOMEN: Soft, nontender, nondistended. Normal bowel sounds. No rebound or guarding. MUSCULOSKELETAL: No lower extremity edema bilaterally. Results Results 24hrs Laboratory Tests Test 10/21/18 05:49 10/21/18 14:21 White Blood Count 6.0 Red Blood Count 2.75 L Hemoglobin 8.5 L Hematocrit 26.5 L Mean Corpuscular Volume 96.4 Mean Corpuscular Hemoglobin 30.9 Mean Corpuscular Hemoglobin Concent 32.1 Red Cell Distribution Width 15.4 H Platelet Count 415 Mean Platelet Volume 10.9 H Immature Granulocytes % 0.700 H Neutrophils % 63.4 Lymphocytes % 27.9 Monocytes % 7.4 Eosinophils % 0.3 Basophils % 0.3 Nucleated Red Blood Cells % 0.0 Immature Granulocytes # 0.040 H Neutrophils # 3.8 Lymphocytes # 1.7 Monocytes # 0.4 Eosinophils # 0.0 Basophils # 0.0 Nucleated Red Blood Cells # 0.0 Sodium Level 141 Potassium Level 4.3 Chloride Level 106 Carbon Dioxide Level 28 Anion Gap 7 Blood Urea Nitrogen 22 H Creatinine 0.82 Est Glomerular Filtrat Rate mL/min > 60 Glucose Level 99 Calcium Level 8.9 Valproic Acid (Depakene) Level 83 Medications Medication Current Medications IV Flush (NS 3 ml) 3 ml PER PROTOCOL IV ; Start 10/06/18 at 09:30 Ondansetron HCl (Zofran Inj) 4 mg Q6H PRN IV NAUSEA/VOMITING; Start 10/06/18 at 09:30 Acetaminophen (Tylenol Tab) 650 mg Q6H PRN PO .PAIN 1-3 OR TEMP Last administered on 10/12/18at 08:27; Admin Dose 650 MG; Start 10/06/18 at 09:30 Acetaminophen/ Hydrocodone Bitart ([place] (5/325)) 1 tab Q6H PRN PO .MOD PAIN 4- 6; Start 10/06/18 at 09:30 Docusate Sodium (Colace) 100 mg Q12H PRN PO .CONSTIPATION; Start 10/06/18 at 09:30 Magnesium Hydroxide (Milk Of Mag) 30 ml DAILY PRN PO .CONSTIPATION; Start at 09:30 Albuterol/ Ipratropium (Duoneb) 3 ml Q4H RESP THERAPY PRN HHN SHORTNESS OF BREATH Last administered on 10/20/18at 20:12; Admin Dose 3 ML; Start 10/06/18 at 09:30 Nitroglycerin (Nitroglycerin (Sl Tab) 0.4 Mg) 1 tab Q5M PRN SL ANGINA; Start 10/06/18 at 09:30 Bisacodyl (Dulcolax) 10 mg DAILY PRN PO CONSTIPATION; Start 10/06/18 at 09:30 Donepezil HCl (Aricept) 5 mg QHS PO Last administered on 10/20/18at 20:37; Admin Dose 5 MG; Start 10/06/18 at 21:00 Lactulose (Enulose) 20 gm TID PRN PO CONSTIPATION; Start 10/06/18 at 09:30 Levothyroxine Sodium (Synthroid) 50 mcg BEFORE BREAKFAST PO Last administered on 10/21/18 05:33; Admin Dose 50 MCG; Start 10/07/18 at 07:00 Mineral Oil (Fleet Mineral Oil Enema) 133 ml DAILY PRN [place] CONSTIPATION; Start 10/06/18 at 09:30 Multivitamins Therapeutic (Theragran) 1 tab DAILY PO Last administered on 10/21/18 09:02; Admin Dose 1 TAB; Start 10/07/18 at 09:00 Aspirin (Aspirin) 81 mg DAILY NGT Last administered on 10/11/18 09:35; Admin Dose 81 MG; Start 10/06/18 at 12:30; Status Hold Atorvastatin Calcium (Lipitor) 40 mg DAILY@21 NGT Last administered on 10/20/18 20:37; Admin Dose 40 MG; Start 10/06/18 at 21:00 Miscellaneous Information (Flu Vaccine Previously Dispensed) FLU VACCINE PREVIOU... NOTE PRN XX NOTE; Start 10/06/18 at 18:00 Amiodarone HCl (Cordarone) 200 mg BID PO Last administered on 10/21/18 09:03; Admin Dose 200 MG; Start 10/09/18 at 21:00 Famotidine (Pepcid) 20 mg DAILY NGT Last administered on 10/21/18 09:02; Admin Dose 20 MG; Start 10/10/18 at 09:00 Polyethylene Glycol (Miralax) 17 gm BID PRN PO constipation; Start 10/10/18 at 22:00 Metoprolol Tartrate (Lopressor) 25 mg BID PO Last administered on 10/21/18 09: 03; Admin Dose 25 MG; Start 10/12/18 at 15:00 Metoprolol Tartrate (Lopressor) 5 mg Q4H PRN IV HR>110 Hold SBP<100 Last administered on 10/20/18 11:40; Admin Dose 5 MG; Start 10/12/18 at 15:00 Enoxaparin Sodium (Lovenox) 70 mg DAILY SC Last administered on 10/21/18 09:55; Admin Dose 70 MG; Start 10/14/18 at 09:00 Levetiracetam (Keppra Liquid) 1,000 mg BID GTB Last administered on 10/21/18 09:05; Admin Dose 1,000 MG; Start 10/14/18 at 21:00 Valproate Sodium (Depakene Liquid Cup) 1,000 mg Q6H GTB Last administered on 10/21/18 15:52; Admin Dose 1,000 MG; Start 10/16/18 at 09:00 Lorazepam (Ativan) 1 mg Q4H PRN IV SEIZURES Last administered on 10/20/18 08:20; Admin Dose 1 MG; Start 10/16/18 at 12:00 Morphine Sulfate (morphine) 1 mg Q4H PRN IV .SEVERE PAIN 7-10 Last administered on 10/20/18 12:09; Admin Dose 1 MG; Start 10/16/18 at 15:45 Epoetin Nile (Epogen (Non Esrd/Non Oncology)) 6,000 units MoWeFr@17 SC Last administered on 10/18/18 17:09; Admin Dose 6,000 UNITS; Start 10/18/18 at 17:00 Furosemide (Lasix) 20 mg DAILY@0600 IV Last administered on 10/21/18 05:34; Admin Dose 20 MG; Start 10/18/18 at 12:30 Quetiapine Fumarate (Seroquel) 12.5 mg QID PRN NGT anxiety/agitation Last administered on 10/18/18 14:38; Admin Dose 12.5 MG; Start 10/18/18 at 14:30 Quetiapine Fumarate (Seroquel) 12.5 mg QHS NGT Last administered on 10/20/18 20:38; Admin Dose 12.5 MG; Start 10/19/18 at 21:00 Hydralazine HCl (Apresoline) 25 mg Q6 NGT Last administered on 10/21/18 15:52; Admin Dose 25 MG; Start 10/20/18 at 12:00 Hydralazine HCl (Apresoline) 5 mg Q8H PRN IV sbp >160; Start 10/20/18 at 12:00 Miscellaneous Information (Pending [facility] Order For Wound Care) This patient martin... PRN PRN XX WOUND CARE; Start 10/21/18 at 07:30 ANGELA MOSQUERA MD Oct 21, 2018 16:22
--- NOTE | 2018-10-21 17:14 | CONS ---
Assessment/Plan Assessment/Plan Assessment/Plan (Daily) 1. Non Oliguric Acute kidney injury due to ATN from septic shock - Improving 2. Septic shock due to UTI 3. acute UTI with Urine Cx growing E.Coli 4. Acute hypoxic respiratory failure intubated on ventilator - s/p Extubation on 10/18/18 5. H/o HTN 6 H/o HL 7. H/o Hypothyroidism 8. E.Coli bacteremia Plan: Na 141, BUN/Cr 22/0.8- Hb 8.5 on epogen 6000 units MWF for anemia adequate urine output still intermittently confused, Bp stable will follow up Consultation Date/Type/Reason Admit Date/Time Oct 06, 2018 at 09:29 Initial Consult Date 10/06/18 Type of Consult NEPHROLOGY Requesting Provider: MANUEL ALEMAN Date/Time of Note DATE: 10/21/18 TIME: 17:14 Exam/Review of Systems Exam Vitals Vital Signs Date Temp Pulse Resp B/P (MAP) Pulse Ox O2 O2 Flow FiO2 Time Delivery Rate 10/21/18 77 16:01 10/21/18 99.1 20 143/68 98 15:24 (93) 10/21/18 Nasal 2.0 10:53 Cannula 10/18/18 30 09:25 Intake and Output 10/20/18 10/20/18 10/21/18 1515:00 23:00 07:00 IntakeIntake Total 540 ml 685 ml 635 ml OutputOutput Total 1150 ml 720 ml 600 ml BalanceBalance -610 ml -35 ml 35 ml Results Result Diagram: 10/21/18 0549 10/21/18 0549 Results 24hrs Laboratory Tests Test 10/21/18 05:49 10/21/18 14:21 White Blood Count 6.0 Red Blood Count 2.75 L Hemoglobin 8.5 L Hematocrit 26.5 L Mean Corpuscular Volume 96.4 Mean Corpuscular Hemoglobin 30.9 Mean Corpuscular Hemoglobin Concent 32.1 Red Cell Distribution Width 15.4 H Platelet Count 415 Mean Platelet Volume 10.9 H Immature Granulocytes % 0.700 H Neutrophils % 63.4 Lymphocytes % 27.9 Monocytes % 7.4 Eosinophils % 0.3 Basophils % 0.3 Nucleated Red Blood Cells % 0.0 Immature Granulocytes # 0.040 H Neutrophils # 3.8 Lymphocytes # 1.7 Monocytes # 0.4 Eosinophils # 0.0 Basophils # 0.0 Nucleated Red Blood Cells # 0.0 Sodium Level 141 Potassium Level 4.3 Chloride Level 106 Carbon Dioxide Level 28 Anion Gap 7 Blood Urea Nitrogen 22 H Creatinine 0.82 Est Glomerular Filtrat Rate mL/min > 60 Glucose Level 99 Calcium Level 8.9 Valproic Acid (Depakene) Level 83 Medications Medication Current Medications IV Flush (NS 3 ml) 3 ml PER PROTOCOL IV ; Start 10/06/18 at 09:30 Ondansetron HCl (Zofran Inj) 4 mg Q6H PRN IV NAUSEA/VOMITING; Start 10/06/18 at 09:30 Acetaminophen (Tylenol Tab) 650 mg Q6H PRN PO .PAIN 1-3 OR TEMP Last administered on 10/12/18at 08:27; Admin Dose 650 MG; Start 10/06/18 at 09:30 Acetaminophen/ Hydrocodone Bitart ([place] (5/325)) 1 tab Q6H PRN PO .MOD PAIN 4- 6; Start 10/06/18 at 09:30 Docusate Sodium (Colace) 100 mg Q12H PRN PO .CONSTIPATION; Start 10/06/18 at 09:30 Magnesium Hydroxide (Milk Of Mag) 30 ml DAILY PRN PO .CONSTIPATION; Start 10/06/18 at 09:30 Albuterol/ Ipratropium (Duoneb) 3 ml Q4H RESP THERAPY PRN HHN SHORTNESS OF BREATH Last administered on 10/20/18at 20:12; Admin Dose 3 ML; Start 10/06/18 at 09:30 Nitroglycerin (Nitroglycerin (Sl Tab) 0.4 Mg) 1 tab Q5M PRN SL ANGINA; Start 10/06/18 at 09:30 Bisacodyl (Dulcolax) 10 mg DAILY PRN PO CONSTIPATION; Start 10/06/18 at 09:30 Donepezil HCl (Aricept) 5 mg QHS PO Last administered on 10/20/18at 20:37; Admin Dose 5 MG; Start 10/06/18 at 21:00 Lactulose (Enulose) 20 gm TID PRN PO CONSTIPATION; Start 10/06/18 at 09:30 Levothyroxine Sodium (Synthroid) 50 mcg BEFORE BREAKFAST PO Last administered on 10/21/18at 05:33; Admin Dose 50 MCG; Start 10/07/18 at 07:00 Mineral Oil (Fleet Mineral Oil Enema) 133 ml DAILY PRN [place] CONSTIPATION; Start 10/06/18 at 09:30 Multivitamins Therapeutic (Theragran) 1 tab DAILY PO Last administered on 10/21/18 09:02; Admin Dose 1 TAB; Start 10/07/18 at 09:00 Aspirin (Aspirin) 81 mg DAILY NGT Last administered on 10/11/18 09:35; Admin Dose 81 MG; Start 10/06/18 at 12:30; Status Hold Atorvastatin Calcium (Lipitor) 40 mg DAILY@21 NGT Last administered on 10/20/18 20:37; Admin Dose 40 MG; Start 10/06/18 at 21:00 Miscellaneous Information (Flu Vaccine Previously Dispensed) FLU VACCINE PREVIOU... NOTE PRN XX NOTE; Start 10/06/18 at 18:00 Amiodarone HCl (Cordarone) 200 mg BID PO Last administered on 10/21/18 09:03; Admin Dose 200 MG; Start 10/09/18 at 21:00 Famotidine (Pepcid) 20 mg DAILY NGT Last administered on 10/21/18 09:02; Admin Dose 20 MG; Start 10/10/18 at 09:00 Polyethylene Glycol (Miralax) 17 gm BID PRN PO constipation; Start 10/10/18 at 22:00 Metoprolol Tartrate (Lopressor) 25 mg BID PO Last administered on 10/21/18 09:03; Admin Dose 25 MG; Start 10/12/18 at 15:00 Metoprolol Tartrate (Lopressor) 5 mg Q4H PRN IV HR>110 Hold SBP<100 Last administered on 10/20/18 11:40; Admin Dose 5 MG; Start 10/12/18 at 15:00 Enoxaparin Sodium (Lovenox) 70 mg DAILY SC Last administered on 10/21/18 09:55; Admin Dose 70 MG; Start 10/14/18 at 09:00 Levetiracetam (Keppra Liquid) 1,000 mg BID GTB Last administered on 10/21/18 09:05; Admin Dose 1,000 MG; Start 10/14/18 at 21:00 Valproate Sodium (Depakene Liquid Cup) 1,000 mg Q6H GTB Last administered on 10/21/18 15:52; Admin Dose 1,000 MG; Start 10/16/18 at 09:00 Lorazepam (Ativan) 1 mg Q4H PRN IV SEIZURES Last administered on 10/20/18 08:20; Admin Dose 1 MG; Start 10/16/18 at 12:00 Morphine Sulfate (morphine) 1 mg Q4H PRN IV .SEVERE PAIN 7-10 Last administered on 10/20/18 12:09; Admin Dose 1 MG; Start 10/16/18 at 15:45 Epoetin Nile (Epogen (Non Esrd/Non Oncology)) 6,000 units MoWeFr@17 SC Last administered on 10/18/18 17:09; Admin Dose 6,000 UNITS; Start 10/18/18 at 17:00 Furosemide (Lasix) 20 mg DAILY@0600 IV Last administered on 10/21/18 05:34; Admin Dose 20 MG; Start 10/18/18 at 12:30 Quetiapine Fumarate (Seroquel) 12.5 mg QID PRN NGT anxiety/agitation Last administered on 10/18/18 14:38; Admin Dose 12.5 MG; Start 10/18/18 at 14:30 Quetiapine Fumarate (Seroquel) 12.5 mg QHS NGT Last administered on 10/20/18 20:38; Admin Dose 12.5 MG; Start 10/19/18 at 21:00 Hydralazine HCl (Apresoline) 25 mg Q6 NGT Last administered on 10/21/18 15:52; Admin Dose 25 MG; Start 10/20/18 at 12:00 Hydralazine HCl (Apresoline) 5 mg Q8H PRN IV sbp >160; Start 10/20/18 at 12:00 [facility] This patient martin... PRN PRN XX WOUND CARE; Start 10/21/18 at 07:30 VALARIE BENNETT MD Oct 21, 2018 17:14
[2018-10-21] MEDS: EPOETIN 3000 UNITS/ML (NON ESRD/NON ONCOLOGY) SC SCH (18:30)
--- NOTE | 2018-10-21 20:31 | CONS ---
Consultation Date/Type/Reason Admit Date/Time Oct 06, 2018 at 09:29 Initial Consult Date 10/06/18 Requesting Provider: MANUEL ALEMAN Date/Time of Note DATE: 10/21/18 TIME: 20:31 Exam/Review of Systems Exam Vitals Vital Signs Date Temp Pulse Resp B/P (MAP) Pulse Ox O2 O2 Flow FiO2 Time Delivery Rate 10/21/18 98.9 84 20 164/94 97 Nasal 20:07 (117) Cannula 10/21/18 2.0 10:53 10/18/18 30 09:25 Intake and Output 10/20/18 10/20/18 10/21/18 1414:59 22:59 06:59 IntakeIntake Total 640 ml 740 ml 635 ml OutputOutput Total 1200 ml 820 ml 600 ml BalanceBalance -560 ml -80 ml 35 ml Results Result Diagram: 10/21/18 0549 10/21/18 0549 Results 24hrs Laboratory Tests Test 10/21/18 05:49 10/21/18 14:21 White Blood Count 6.0 Red Blood Count 2.75 L Hemoglobin 8.5 L Hematocrit 26.5 L Mean Corpuscular Volume 96.4 Mean Corpuscular Hemoglobin 30.9 Mean Corpuscular Hemoglobin Concent 32.1 Red Cell Distribution Width 15.4 H Platelet Count 415 Mean Platelet Volume 10.9 H Immature Granulocytes % 0.700 H Neutrophils % 63.4 Lymphocytes % 27.9 Monocytes % 7.4 Eosinophils % 0.3 Basophils % 0.3 Nucleated Red Blood Cells % 0.0 Immature Granulocytes # 0.040 H Neutrophils # 3.8 Lymphocytes # 1.7 Monocytes # 0.4 Eosinophils # 0.0 Basophils # 0.0 Nucleated Red Blood Cells # 0.0 Sodium Level 141 Potassium Level 4.3 Chloride Level 106 Carbon Dioxide Level 28 Anion Gap 7 Blood Urea Nitrogen 22 H Creatinine 0.82 Est Glomerular Filtrat Rate mL/min > 60 Glucose Level 99 Calcium Level 8.9 Valproic Acid (Depakene) Level 83 Medications Medication Current Medications IV Flush (NS 3 ml) 3 ml PER PROTOCOL IV ; Start 10/06/18 at 09:30 Ondansetron HCl (Zofran Inj) 4 mg Q6H PRN IV NAUSEA/VOMITING; Start 10/06/18 at 09:30 Acetaminophen (Tylenol Tab) 650 mg Q6H PRN PO .PAIN 1-3 OR TEMP Last administered on 10/12/18 08:27; Admin Dose 650 MG; Start 10/06/18 at 09:30 Acetaminophen/ Hydrocodone Bitart ([place] (5/325)) 1 tab Q6H PRN PO .MOD PAIN 4- 6; Start 10/06/18 at 09:30 Docusate Sodium (Colace) 100 mg Q12H PRN PO .CONSTIPATION; Start 10/06/18 at 09:30 Magnesium Hydroxide (Milk Of Mag) 30 ml DAILY PRN PO .CONSTIPATION; Start 10/06/18 at 09:30 Albuterol/ Ipratropium (Duoneb) 3 ml Q4H RESP THERAPY PRN HHN SHORTNESS OF MAAI ATH Last administered on 10/20/18at 20:12; Admin Dose 3 ML; Start 10/06/18 at 09:30 Nitroglycerin (Nitroglycerin (Sl Tab) 0.4 Mg) 1 tab Q5M PRN SL ANGINA; Start 10/06/18 at 09:30 Bisacodyl (Dulcolax) 10 mg DAILY PRN PO CONSTIPATION; Start 10/06/18 at 09:30 Donepezil HCl (Aricept) 5 mg QHS PO Last administered on 10/20/18 20:37; Admin Dose 5 MG; Start 10/06/18 at 21:00 Lactulose (Enulose) 20 gm TID PRN PO CONSTIPATION; Start 10/06/18 at 09:30 Levothyroxine Sodium (Synthroid) 50 mcg BEFORE BREAKFAST PO Last administered on 10/21/18at 05:33; Admin Dose 50 MCG; Start 10/07/18 at 07:00 Mineral Oil (Fleet Mineral Oil Enema) 133 ml DAILY PRN [place] CONSTIPATION; Start 10/06/18 at 09:30 Multivitamins Therapeutic (Theragran) 1 tab DAILY PO Last administered on 10/21/18at 09:02; Admin Dose 1 TAB; Start 10/07/18 at 09:00 Aspirin (Aspirin) 81 mg DAILY NGT Last administered on 10/11/18 09:35; Admin Dose 81 MG; Start 10/06/18 at 12:30; Status Hold Atorvastatin Calcium (Lipitor) 40 mg DAILY@21 NGT Last administered on 10/20/18 20:37; Admin Dose 40 MG; Start 10/06/18 at 21:00 Miscellaneous Information (Flu Vaccine Previously Dispensed) FLU VACCINE PREVIOU... NOTE PRN XX NOTE; Start 10/06/18 at 18:00 Amiodarone HCl (Cordarone) 200 mg BID PO Last administered on 10/21/18 09:03; Admin Dose 200 MG; Start 10/09/18 at 21:00 Famotidine (Pepcid) 20 mg DAILY NGT Last administered on 10/21/18 09:02; Admin Dose 20 MG; Start 10/10/18 at 09:00 Polyethylene Glycol (Miralax) 17 gm BID PRN PO constipation; Start 10/10/18 at 22:00 Metoprolol Tartrate (Lopressor) 25 mg BID PO Last administered on 10/21/18 09:03; Admin Dose 25 MG; Start 10/12/18 at 15:00 Metoprolol Tartrate (Lopressor) 5 mg Q4H PRN IV HR>110 Hold SBP<100 Last administered on 10/20/18 11:40; Admin Dose 5 MG; Start 10/12/18 at 15:00 Enoxaparin Sodium (Lovenox) 70 mg DAILY SC Last administered on 10/21/18 09:55; Admin Dose 70 MG; Start 10/14/18 at 09:00 Levetiracetam (Keppra Liquid) 1,000 mg BID GTB Last administered on 10/21/18 09:05; Admin Dose 1,000 MG; Start 10/14/18 at 21:00 Valproate Sodium (Depakene Liquid Cup) 1,000 mg Q6H GTB Last administered on 10/21/18 15:52; Admin Dose 1,000 MG; Start 10/16/18 at 09:00 Lorazepam (Ativan) 1 mg Q4H PRN IV SEIZURES Last administered on 10/20/18 08:20; Admin Dose 1 MG; Start 10/16/18 at 12:00 Morphine Sulfate (morphine) 1 mg Q4H PRN IV .SEVERE PAIN 7-10 Last administered on 10/20/18 12:09; Admin Dose 1 MG; Start 10/16/18 at 15:45 Epoetin Nile (Epogen (Non Esrd/Non Oncology)) 6,000 units MoWeFr@17 SC Last administered on 10/21/18 18:30; Admin Dose 6,000 UNITS; Start 10/18/18 at 17:00 Furosemide (Lasix) 20 mg DAILY@0600 IV Last administered on 10/21/18 05:34; Admin Dose 20 MG; Start 10/18/18 at 12:30 Quetiapine Fumarate (Seroquel) 12.5 mg QID PRN NGT anxiety/agitation Last administered on 10/18/18 14:38; Admin Dose 12.5 MG; Start 10/18/18 at 14:30 Quetiapine Fumarate (Seroquel) 12.5 mg QHS NGT Last administered on 10/20/18 20:38; Admin Dose 12.5 MG; Start 10/19/18 at 21:00 Hydralazine HCl (Apresoline) 25 mg Q6 NGT Last administered on 10/21/18at 18:29; Admin Dose 25 MG; Start 10/20/18 at 12:00 Hydralazine HCl (Apresoline) 5 mg Q8H PRN IV sbp >160; Start 10/20/18 at 12:00 Miscellaneous Information (Pending [facility] Order For Wound Care) This patient h a... PRN PRN XX WOUND CARE; Start 10/21/18 at 07:30 SHILPA DAVIS Oct 21, 2018 20:31
[2018-10-21] MEDS: ATORVASTATIN 40 MG TAB NGT SCH (21:21)
[2018-10-21] MEDS: DONEPEZIL 5 MG TAB PO SCH (21:21)
[2018-10-21] MEDS: QUETIAPINE 25 MG TAB NGT SCH (21:21)
[2018-10-22] VITALS (13 sets, daily range): BP systolic 103–162; BP diastolic 59–90; PULSE 64–108; RESP 20–22
[2018-10-22] MEDS: VALPROIC ACID LIQUID CUP 250 MG/5 ML CUP GTB SCH ×3 (04:01→21:29)
[2018-10-22] MEDS: morphine 2 MG INJ IV PRN (04:15)
[2018-10-22] MEDS: ALBUTEROL/IPRATROPIUM (NEB) 3 ML AMP HHN PRN ×5 (04:33→20:22)
[2018-10-22] MEDS: LEVOTHYROXINE 50 MCG TAB PO SCH (06:17)
[2018-10-22] MEDS: FUROSEMIDE 20 MG INJ IV SCH (06:18)
[2018-10-22] MEDS: LEVETIRACETAM (100 MG/ML) 5ML CUP GTB SCH ×2 (09:51→19:52)
[2018-10-22] MEDS: BALSAM PERU/CASTOR OIL 60 GM TUBE TOP SCH (09:51)
[2018-10-22] MEDS: METOPROLOL 25 MG TAB PO SCH ×2 (09:52→19:31)
[2018-10-22] MEDS: MULTIVITAMINS THERAPEUTIC TAB PO SCH (09:52)
[2018-10-22] MEDS: FAMOTIDINE 20 MG TAB NGT SCH (09:52)
[2018-10-22] MEDS: AMIODARONE 200 MG TAB PO SCH ×2 (09:53→19:30)
[2018-10-22] MEDS: ENOXAPARIN 100 MG/ML SYG SC SCH (10:06)
--- NOTE | 2018-10-22 10:12 | CONS ---
Consult Date/Type/Reason Admit Date/Time Oct 06, 2018 at 09:29 Initial Consult Date 10/06/18 Type of Consultation: Pulm/CCM Requesting Provider: MANUEL ALEMAN Date/Time of Note DATE: 10/22/18 TIME: 10:10 Subjective NO acute events - pt agitated - no active CP - BP in good range now. ROS: per nurse - no F/C/N/V/D/C - no CP now Objective Vitals Vital Signs Date Temp Pulse Resp B/P (MAP) Pulse Ox O2 O2 Flow FiO2 Time Delivery Rate 10/22/18 97 16 97 Venti Mask 10.0 35 09:16 10/22/18 97.9 148/77 07:24 (100) Intake and Output 10/21/18 10/21/18 10/22/18 1414:59 22:59 06:59 IntakeIntake Total 750 ml OutputOutput Total 2050 ml BalanceBalance -1300 ml Exam General: WN/WD/NAD, AOx 0 eyes open HEENT: Unicetric/atraumatic/EOMI (does not follow commands) NECK: JVD elevated, no thyromegaly Lymph: no lymphadenopathy HEART: tachy regular with no S3, II/ systolic murmur at apex LUNGS: Coarse sounds ABD: soft, NT, ND, +BS : Intact Neuro: non focal SKIN: chronic changes EXT: trace edema Results/Medications Result Diagram: 10/21/18 0549 10/21/18 0549 Results 24 hrs Laboratory Tests Test 10/21/18 14:21 10/22/18 07:02 Valproic Acid (Depakene) Level 83 105 H Home Meds Active Scripts Vancomycin Hcl (Vancocin) 1 Gm Soln, 500 MG IV Q12 for 7 Days, VIAL Prov:NUGENT,ALEN V. [employer] 08/31/18 Aztreonam (AZTREONAM) 1 Gm Vial, 1 GM IV* Q12 for 7 Days, VIAL Prov:NUGENT,ALEN V. [employer] 08/31/18 Reported Medications Donepezil* (Donepezil*) 5 Mg Tablet, 5 MG PO QHS, #30 TAB 08/28/18 Divalproex Sodium* (Depakote*) 500 Mg Tablet.dr, 500 MG PO BID, #120 TAB 08/28/18 Docusate Sodium* (Colace*) 100 Mg Capsule, 100 MG PO BID PRN for CONSTIPATION, #60 CAP 08/28/18 Atorvastatin Calcium (Atorvastatin Calcium) 10 Mg Tablet, 10 MG PO QHS, #30 TAB 08/28/18 Lorazepam* (Lorazepam*) 1 Mg Tablet, 1 MG PO BID PRN for ANXIETY, #30 TAB 08/28/18 Lactulose* (Lactulose*) 20 Gm/30 Ml Solution, 20 GM PO TID PRN for CONSTIPATION, ML 08/28/18 Trazodone Hcl* (Trazodone Hcl*) 100 Mg Tablet, 100 MG PO QHS, #30 TAB 08/28/18 Quetiapine Fumarate* (Seroquel*) 200 Mg Tablet, 200 MG PO HS, #30 TAB 08/28/18 Sennosides* (Senna Lax*) 8.6 Mg Tablet, 2 TAB PO QHS PRN for CONSTIPATION, TAB 08/28/18 Multivitamins* (Theragran*) 1 Tab Tab, 1 TAB PO DAILY, TAB 08/28/18 Polyethylene Glycol* (Miralax*) 17 Gm Powd.pack, 17 GM PO BID, #60 PACKET 08/28/18 Metoprolol Tartrate* (Lopressor*) 25 Mg Tab, 12.5 MG PO DAILY, #60 TAB HOLD IF SBP<115 OR HR<60 08/28/18 Levothyroxine Sodium* (Levothyroxine Sodium*) 50 Mcg Tablet, 50 MCG PO BEFORE BREAKFAST, #30 TAB 08/28/18 Levetiracetam* (Keppra*) 500 Mg Tablet, 500 MG PO BID, TAB 08/28/18 Gabapentin* (Gabapentin*) 400 Mg Capsule, 400 MG PO TID, #90 CAP 08/28/18 Phenylephrine HCl/[place] Butter* (Preparation H* Suppository) 1 Each Supp.rect, 1 EACH [place] DAILY PRN for CONSTIPATION, SUPP.RECT 08/28/18 Mineral Oil* (Fleet* Mineral Oil Enema) 133 Ml Oil, 133 ML [place] DAILY PRN for CONSTIPATION, ENEMA 08/28/18 Acetaminophen* (Acetaminophen*) 650 Mg Tablet, 650 MG PO DAILY PRN for PAIN AND OR ELEVATED TEMP, #30 TAB 08/28/18 Bisacodyl* (Bisacodyl*) 5 Mg Tablet.dr, 10 MG PO DAILY PRN for CONSTIPATION, TAB 08/28/18 Medications Current Medications IV Flush (NS 3 ml) 3 ml PER PROTOCOL IV ; Start 10/06/18 at 09:30 Ondansetron HCl (Zofran Inj) 4 mg Q6H PRN IV NAUSEA/VOMITING; Start 10/06/18 at 09:30 Acetaminophen (Tylenol Tab) 650 mg Q6H PRN PO .PAIN 1-3 OR TEMP Last administered on 10/12/18at 08:27; Admin Dose 650 MG; Start 10/06/18 at 09:30 Acetaminophen/ Hydrocodone Bitart ([place] (5/325)) 1 tab Q6H PRN PO .MOD PAIN 4- 6; Start 10/06/18 at 09:30 Docusate Sodium (Colace) 100 mg Q12H PRN PO .CONSTIPATION; Start 10/06/18 at 09:30 Magnesium Hydroxide (Milk Of Mag) 30 ml DAILY PRN PO .CONSTIPATION; Start 10/06/18 at 09:30 Albuterol/ Ipratropium (Duoneb) 3 ml Q4H RESP THERAPY PRN HHN SHORTNESS OF BREATH Last administered on 10/22/18at 09:16; Admin Dose 3 ML; Start 10/06/18 at 09:30 Nitroglycerin (Nitroglycerin (Sl Tab) 0.4 Mg) 1 tab Q5M PRN SL ANGINA; Start 10/06/18 at 09:30 Bisacodyl (Dulcolax) 10 mg DAILY PRN PO CONSTIPATION; Start 10/06/18 at 09:30 Donepezil HCl (Aricept) 5 mg QHS PO Last administered on 10/21/18at 21:21; Admin Dose 5 MG; Start 10/06/18 at 21:00 Lactulose (Enulose) 20 gm TID PRN PO CONSTIPATION; Start 10/06/18 at 09:30 Levothyroxine Sodium (Synthroid) 50 mcg BEFORE BREAKFAST PO Last administered on 10/22/18at 06:17; Admin Dose 50 MCG; Start 10/07/18 at 07:00 Mineral Oil (Fleet Mineral Oil Enema) 133 ml DAILY PRN [place] CONSTIPATION; Start 10/06/18 at 09:30 Multivitamins Therapeutic (Theragran) 1 tab DAILY PO Last administered on 10/22/18 09:52; Admin Dose 1 TAB; Start 10/07/18 at 09:00 Aspirin (Aspirin) 81 mg DAILY NGT Last administered on 10/11/18 09:35; Admin Dose 81 MG; Start 10/06/18 at 12:30; Status Hold Atorvastatin Calcium (Lipitor) 40 mg DAILY@21 NGT Last administered on 10/21/18 21:21; Admin Dose 40 MG; Start 10/06/18 at 21:00 Miscellaneous Information (Flu Vaccine Previously Dispensed) FLU VACCINE PREVIOU... NOTE PRN XX NOTE; Start 10/06/18 at 18:00 Amiodarone HCl (Cordarone) 200 mg BID PO Last administered on 10/22/18 09:53; Admin Dose 200 MG; Start 10/09/18 at 21:00 Famotidine (Pepcid) 20 mg DAILY NGT Last administered on 10/22/18 09:52; Admin Dose 20 MG; Start 10/10/18 at 09:00 Polyethylene Glycol (Miralax) 17 gm BID PRN PO constipation; Start 10/10/18 at 22:00 Metoprolol Tartrate (Lopressor) 25 mg BID PO Last administered on 10/22/18 09:52; Admin Dose 25 MG; Start 10/12/18 at 15:00 Metoprolol Tartrate (Lopressor) 5 mg Q4H PRN IV HR>110 Hold SBP<100 Last administered on 10/20/18 11:40; Admin Dose 5 MG; Start 10/12/18 at 15:00 Enoxaparin Sodium (Lovenox) 70 mg DAILY SC Last administered on 10/22/18 10:06; Admin Dose 70 MG; Start 10/14/18 at 09:00 Levetiracetam (Keppra Liquid) 1,000 mg BID GTB Last administered on 10/22/18 09:51; Admin Dose 1,000 MG; Start 10/14/18 at 21:00 Valproate Sodium (Depakene Liquid Cup) 1,000 mg Q6H GTB Last administered on 10/22/18 04:01; Admin Dose 1,000 MG; Start 10/16/18 at 09:00 Lorazepam (Ativan) 1 mg Q4H PRN IV SEIZURES Last administered on 10/20/18 08:20; Admin Dose 1 MG; Start 10/16/18 at 12:00 Morphine Sulfate (morphine) 1 mg Q4H PRN IV .SEVERE PAIN 7-10 Last administered on 10/22/18at 04:15; Admin Dose 1 MG; Start 10/16/18 at 15:45 Epoetin Nile (Epogen (Non Esrd/Non Oncology)) 6,000 units MoWeFr@17 SC Last administered on 10/21/18at 18:30; Admin Dose 6,000 UNITS; Start 10/18/18 at 17:00 Furosemide (Lasix) 20 mg DAILY@0600 IV Last administered on 10/22/18 06:18; Admin Dose 20 MG; Start 10/18/18 at 12:30 Quetiapine Fumarate (Seroquel) 12.5 mg QID PRN NGT anxiety/agitation Last administered on 10/18/18at 14:38; Admin Dose 12.5 MG; Start 10/18/18 at 14:30 Quetiapine Fumarate (Seroquel) 12.5 mg QHS NGT Last administered on 10/21/18at 21:21; Admin Dose 12.5 MG; Start 10/19/18 at 21:00 Hydralazine HCl (Apresoline) 25 mg Q6 NGT Last administered on 10/22/18at 06:18; Admin Dose 25 MG; Start 10/20/18 at 12:00 Hydralazine HCl (Apresoline) 5 mg Q8H PRN IV sbp >160; Start 10/20/18 at 12:00 Miscellaneous Information (Pending [facility] Order For Wound Care) This patient martin... PRN PRN XX WOUND CARE; Start 10/21/18 at 07:30 Assessment/Plan Hospital Course (Demo Recall) 1. CAD - with non-ST elevation myocardial infarction, no CP now - med Rx advised. NO CP now - med Rx now. Conservative rx planned currently. 2. Atrial fibrillation with rapid ventricular response. Converted to sinus rhythm, now back in a. fib - SINUS NOW. Rate controlled. Rate contrlled on tele. 3. Hypertension. The patient is on Levophed. Continue to adjust medications as needed. She appears to be responding to IV hydration.TREATED. 4. Infection. Continue the patient on antibiotics. NO fevers. On meds. WBC normalized. 5. Dementia. The patient does report vascular dementia. Defer to primary team for management. 6. Acute renal failure. Continue to hydrate the patient. Renal team will follow. CR better 0.82, good urine output now. 7. Resp failure - extubated now, con't Rx. BETTER now. ZANE JACOME MD Oct 22, 2018 10:12
--- NOTE | 2018-10-22 11:08 | CONS ---
Assessment/Plan Assessment/Plan Assessment/Plan (Daily) Assessment recommendations; 1. Patient status post respiratory failure status post extubation with stable clinical status. 2. Advanced dementia/encephalopathy. 3. Paroxysmal atrial fibrillation, currently in sinus rhythm. 4. Non-STEMI. 5. UTI with E. coli off antibiotics now. Patient also had E. coli bacteremia. Most recent blood cultures are negative. Patient now off systemic antibiotics. 6. History of hypothyroidism and hypertension. 7. Stable seizure disorder. 8. Interval resolution of hypotension as well. 9. Dysphagia. 10. Anemia. Continue current supportive care. Consider placement of G-tube. Prognosis is poor. Consultation Date/Type/Reason Admit Date/Time Oct 06, 2018 at 09:29 Initial Consult Date 10/06/18 Type of Consult Pulmonary/critical care Patient's condition remains critical. Still requiring invasive mechanical ventilation. Patient however has improved hemodynamically and is off pressor support. General exam; elderly female, orally intubated, exhibiting tremor-like activity. Unresponsive. Requesting Provider: MANUEL ALEMAN Date/Time of Note DATE: 10/22/18 TIME: 11:06 24 HR Interval Summary Free Text/Dictation Patient condition is stable. On Ventimask. Because of chronic dementia and encephalopathy patient remains noncommunicative. General exam; elderly female, on Ventimask. Awake but noncommunicative. Currently in no distress. Exam/Review of Systems Exam Vitals Vital Signs Date Temp Pulse Resp B/P (MAP) Pulse Ox O2 O2 Flow FiO2 Time Delivery Rate 10/22/18 98.8 76 20 117/65 92 10:54 (82) 10/22/18 Venti Mask 10.0 35 09:16 Intake and Output 10/21/18 10/21/18 10/22/18 1515:00 23:00 07:00 IntakeIntake Total 750 ml OutputOutput Total 2050 ml BalanceBalance -1300 ml Exam HEENT exam; supple neck, patient is edentulous. Nasogastric tube in place. No neck masses. Chest exam; diminished breath sounds bilaterally. S1-S2 audible, no murmurs. Regular rhythm. Abdomen exam; soft, mildly protuberant. No organomegaly. Bowel sounds audible. Extremity exam; trace edema. Patient does have mild ecchymosis. [employer] exam; patient remains awake but noncommunicative. Results Result Diagram: 10/21/18 0549 10/21/18 0549 Results 24hrs Laboratory Tests Test 10/21/18 14:21 10/22/18 07:02 Valproic Acid (Depakene) Level 83 105 H Medications Medication Current Medications IV Flush (NS 3 ml) 3 ml PER PROTOCOL IV ; Start 10/06/18 at 09:30 Ondansetron HCl (Zofran Inj) 4 mg Q6H PRN IV NAUSEA/VOMITING; Start 10/06/18 at 09:30 Acetaminophen (Tylenol Tab) 650 mg Q6H PRN PO .PAIN 1-3 OR TEMP Last administered on 10/12/18at 08:27; Admin Dose 650 MG; Start 10/06/18 at 09:30 Acetaminophen/ Hydrocodone Bitart ([place] (5/325)) 1 tab Q6H PRN PO .MOD PAIN 4- 6; Start 10/06/18 at 09:30 Docusate Sodium (Colace) 100 mg Q12H PRN PO .CONSTIPATION; Start 10/06/18 at 09:30 Magnesium Hydroxide (Milk Of Mag) 30 ml DAILY PRN PO .CONSTIPATION; Start 10/06/18 at 09:30 Albuterol/ Ipratropium (Duoneb) 3 ml Q4H RESP THERAPY PRN HHN SHORTNESS OF BREATH Last administered on 10/22/18at 09:16; Admin Dose 3 ML; Start 10/06/18 at 09:30 Nitroglycerin (Nitroglycerin (Sl Tab) 0.4 Mg) 1 tab Q5M PRN SL ANGINA; Start 10/06/18 at 09:30 Bisacodyl (Dulcolax) 10 mg DAILY PRN PO CONSTIPATION; Start 10/06/18 at 09:30 Donepezil HCl (Aricept) 5 mg QHS PO Last administered on 10/21/18at 21:21; Admin Dose 5 MG; Start 10/06/18 at 21:00 Lactulose (Enulose) 20 gm TID PRN PO CONSTIPATION; Start 10/06/18 at 09:30 Levothyroxine Sodium (Synthroid) 50 mcg BEFORE BREAKFAST PO Last administered on 10/22/18at 06:17; Admin Dose 50 MCG; Start 10/07/18 at 07:00 Mineral Oil (Fleet Mineral Oil Enema) 133 ml DAILY PRN [place] CONSTIPATION; Start 10/06/18 at 09:30 Multivitamins Therapeutic (Theragran) 1 tab DAILY PO Last administered on 10/22/18 09:52; Admin Dose 1 TAB; Start 10/07/18 at 09:00 Aspirin (Aspirin) 81 mg DAILY NGT Last administered on 10/11/18 09:35; Admin Dose 81 MG; Start 10/06/18 at 12:30; Status Hold Atorvastatin Calcium (Lipitor) 40 mg DAILY@21 NGT Last administered on 10/21 21:21; Admin Dose 40 MG; Start 10/06/18 at 21:00 Miscellaneous Information (Flu Vaccine Previously Dispensed) FLU VACCINE PREVIOU... NOTE PRN XX NOTE; Start 10/06/18 at 18:00 Amiodarone HCl (Cordarone) 200 mg BID PO Last administered on 10/22/18 09:53; Admin Dose 200 MG; Start 10/09/18 at 21:00 Famotidine (Pepcid) 20 mg DAILY NGT Last administered on 10/22/18 09:52; Admin Dose 20 MG; Start 10/10/18 at 09:00 Polyethylene Glycol (Miralax) 17 gm BID PRN PO constipation; Start 10/10/18 at 22:00 Metoprolol Tartrate (Lopressor) 25 mg BID PO Last administered on 10/22/18 09:52; Admin Dose 25 MG; Start 10/12/18 at 15:00 Metoprolol Tartrate (Lopressor) 5 mg Q4H PRN IV HR>110 Hold SBP<100 Last administered on 10/20/18 11:40; Admin Dose 5 MG; Start 10/12/18 at 15:00 Enoxaparin Sodium (Lovenox) 70 mg DAILY SC Last administered on 10/22/18 10:06; Admin Dose 70 MG; Start 10/14/18 at 09:00 Levetiracetam (Keppra Liquid) 1,000 mg BID GTB Last administered on 10/22/18 09:51; Admin Dose 1,000 MG; Start 10/14/18 at 21:00 Valproate Sodium (Depakene Liquid Cup) 1,000 mg Q6H GTB Last administered on 10/22/18 04:01; Admin Dose 1,000 MG; Start 10/16/18 at 09:00 Lorazepam (Ativan) 1 mg Q4H PRN IV SEIZURES Last administered on 10/20/18 08:20; Admin Dose 1 MG; Start 10/16/18 at 12:00 Morphine Sulfate (morphine) 1 mg Q4H PRN IV .SEVERE PAIN 7-10 Last administered on 10/22/18 04:15; Admin Dose 1 MG; Start 10/16/18 at 15:45 Epoetin Nile (Epogen (Non Esrd/Non Oncology)) 6,000 units MoWeFr@17 SC Last administered on 10/21/18 18:30; Admin Dose 6,000 UNITS; Start 10/18/18 at 17:00 Furosemide (Lasix) 20 mg DAILY@0600 IV Last administered on 10/22/18 06:18; Admin Dose 20 MG; Start 10/18/18 at 12:30 Quetiapine Fumarate (Seroquel) 12.5 mg QID PRN NGT anxiety/agitation Last administered on 10/18/18at 14:38; Admin Dose 12.5 MG; Start 10/18/18 at 14:30 Quetiapine Fumarate (Seroquel) 12.5 mg QHS NGT Last administered on 10/21/18 21:21; Admin Dose 12.5 MG; Start 10/19/18 at 21:00 Hydralazine HCl (Apresoline) 25 mg Q6 NGT Last administered on 10/22/18 06:18; Admin Dose 25 MG; Start 10/20/18 at 12:00 Hydralazine HCl (Apresoline) 5 mg Q8H PRN IV sbp >160; Start 10/20/18 at 12:00 Miscellaneous Information (Pending Santyl Order For Wound Care) This patient martin... PRN PRN XX WOUND CARE; Start 10/21/18 at 07:30 YANETH CASTELLANOS 19, 2019 11:08
--- NOTE | 2018-10-22 11:53 | CONS ---
Assessment/Plan Assessment/Plan Assessment/Plan (Daily) 1. Non Oliguric Acute kidney injury due to ATN from septic shock - Improving 2. Septic shock due to UTI 3. acute UTI with Urine Cx growing E.Coli 4. Acute hypoxic respiratory failure intubated on ventilator - s/p Extubation on 10/18/18 5. H/o HTN 6 H/o HL 7. H/o Hypothyroidism 8. E.Coli bacteremia Plan: Na 141, BUN/Cr 22/0.8- Hb 8.5 on epogen 6000 units MWF for anemia adequate urine output still intermittently confused, Bp stable will follow up Consultation Date/Type/Reason Admit Date/Time Oct 06, 2018 at 09:29 Initial Consult Date 10/06/18 Type of Consult NEPHROLOGY Requesting Provider: MANUEL ALEMAN Date/Time of Note DATE: 10/22/18 TIME: 11:53 Exam/Review of Systems Exam Vitals Vital Signs Date Temp Pulse Resp B/P (MAP) Pulse Ox O2 O2 Flow FiO2 Time Delivery Rate 10/22/18 98.8 76 20 117/65 92 10:54 (82) 10/22/18 Venti Mask 10.0 35 09:16 Intake and Output 10/21/18 10/21/18 10/22/18 1414:59 22:59 06:59 IntakeIntake Total 750 ml OutputOutput Total 2050 ml BalanceBalance -1300 ml Exam Constitutional: alert, other (Confused, lethargic ) Respiratory: clear to auscultation, normal air movement, diminished breath sounds Cardiovascular: regular rate and rhythm, nl pulses Gastrointestinal: soft, non-tender Musculoskeletal: nl extremities to inspection, swelling Neurological: other ( confused, uncooperative for neuro exam ) Results Result Diagram: 10/21/18 0549 10/21/18 0549 Results 24hrs Laboratory Tests Test 10/21/18 14:21 10/22/18 07:02 Valproic Acid (Depakene) Level 83 105 H Medications Medication Current Medications IV Flush (NS 3 ml) 3 ml PER PROTOCOL IV ; Start 10/06/18 at 09:30 Ondansetron HCl (Zofran Inj) 4 mg Q6H PRN IV NAUSEA/VOMITING; Start 10/06/18 at 09:30 Acetaminophen (Tylenol Tab) 650 mg Q6H PRN PO .PAIN 1-3 OR TEMP Last administered on 10/12/18 08:27; Admin Dose 650 MG; Start 10/06/18 at 09:30 Acetaminophen/ Hydrocodone Bitart ([place] (5/325)) 1 tab Q6H PRN PO .MOD PAIN 4- 6; Start 10/06/18 at 09:30 Docusate Sodium (Colace) 100 mg Q12H PRN PO .CONSTIPATION; Start 10/06/18 at 09:30 Magnesium Hydroxide (Milk Of Mag) 30 ml DAILY PRN PO .CONSTIPATION; Start 10/06/18 at 09:30 Albuterol/ Ipratropium (Duoneb) 3 ml Q4H RESP THERAPY PRN HHN SHORTNESS OF BREATH Last administered on 10/22/18 09:16; Admin Dose 3 ML; Start 10/06/18 at 09:30 Nitroglycerin (Nitroglycerin (Sl Tab) 0.4 Mg) 1 tab Q5M PRN SL ANGINA; Start 10/06/18 at 09:30 Bisacodyl (Dulcolax) 10 mg DAILY PRN PO CONSTIPATION; Start 10/06/18 at 09:30 Donepezil HCl (Aricept) 5 mg QHS PO Last administered on 10/21/18 21:21; Admin Dose 5 MG; Start 10/06/18 at 21:00 Lactulose (Enulose) 20 gm TID PRN PO CONSTIPATION; Start 10/06/18 at 09:30 Levothyroxine Sodium (Synthroid) 50 mcg BEFORE BREAKFAST PO Last administered on 10/22/18 06:17; Admin Dose 50 MCG; Start 10/07/18 at 07:00 Mineral Oil (Fleet Mineral Oil Enema) 133 ml DAILY PRN [place] CONSTIPATION; Start 10/06/18 at 09:30 Multivitamins Therapeutic (Theragran) 1 tab DAILY PO Last administered on 10/22/18 09:52; Admin Dose 1 TAB; Start 10/07/18 at 09:00 Aspirin (Aspirin) 81 mg DAILY NGT Last administered on 10/11/18 09:35; Admin Dose 81 MG; Start 10/06/18 at 12:30; Status Hold Atorvastatin Calcium (Lipitor) 40 mg DAILY@21 NGT Last administered on 10/21/18 21:21; Admin Dose 40 MG; Start 10/06/18 at 21:00 Miscellaneous Information (Flu Vaccine Previously Dispensed) FLU VACCINE PREVIOU... NOTE PRN XX NOTE; Start 10/06/18 at 18:00 Amiodarone HCl (Cordarone) 200 mg BID PO Last administered on 10/22/18 09:53; Admin Dose 200 MG; Start 10/09/18 at 21:00 Famotidine (Pepcid) 20 mg DAILY NGT Last administered on 10/22/18 09:52; Admin Dose 20 MG; Start 10/10/18 at 09:00 Polyethylene Glycol (Miralax) 17 gm BID PRN PO constipation; Start 10/10/18 at 22:00 Metoprolol Tartrate (Lopressor) 25 mg BID PO Last administered on 10/22/18 09:52; Admin Dose 25 MG; Start 10/12/18 at 15:00 Metoprolol Tartrate (Lopressor) 5 mg Q4H PRN IV HR>110 Hold SBP<100 Last administered on 10/20/18 11:40; Admin Dose 5 MG; Start 10/12/18 at 15:00 Enoxaparin Sodium (Lovenox) 70 mg DAILY SC Last administered on 10/22/18 10:06; Admin Dose 70 MG; Start 10/14/18 at 09:00 Levetiracetam (Keppra Liquid) 1,000 mg BID GTB Last administered on 10/22/18 09:51; Admin Dose 1,000 MG; Start 10/14/18 at 21:00 Valproate Sodium (Depakene Liquid Cup) 1,000 mg Q6H GTB Last administered on 10/22/18 11:09; Admin Dose 1,000 MG; Start 10/16/18 at 09:00 Lorazepam (Ativan) 1 mg Q4H PRN IV SEIZURES Last administered on 10/20/18 08:20; Admin Dose 1 MG; Start 10/16/18 at 12:00 Morphine Sulfate (morphine) 1 mg Q4H PRN IV .SEVERE PAIN 7-10 Last administered on 10/22/18 04:15; Admin Dose 1 MG; Start 10/16/18 at 15:45 Epoetin Nile (Epogen (Non Esrd/Non Oncology)) 6,000 units MoWeFr@17 SC Last administered on 10/21/18 18:30; Admin Dose 6,000 UNITS; Start 10/18/18 at 17:00 Furosemide (Lasix) 20 mg DAILY@0600 IV Last administered on 10/22/18at 06:18; Admin Dose 20 MG; Start 10/18/18 at 12:30 Quetiapine Fumarate (Seroquel) 12.5 mg QID PRN NGT anxiety/agitation Last administered on 10/18/18at 14:38; Admin Dose 12.5 MG; Start 10/18/18 at 14:30 Quetiapine Fumarate (Seroquel) 12.5 mg QHS NGT Last administered on 10/21/18 21:21; Admin Dose 12.5 MG; Start 10/19/18 at 21:00 Hydralazine HCl (Apresoline) 25 mg Q6 NGT Last administered on 10/22/18 06:18; Admin Dose 25 MG; Start 10/20/18 at 12:00 Hydralazine HCl (Apresoline) 5 mg Q8H PRN IV sbp >160; Start 10/20/18 at 12:00 [facility] This patient martin... PRN PRN XX WOUND CARE; Start 10/21/18 at 07:30 VALARIE BENNETT MD Oct 22, 2018 11:53
--- NOTE | 2018-10-22 14:47 | CONS ---
Assessment/Plan Assessment/Plan Hospital Course 67 F c/ dementia, epilepsy, and other comorbidities, who presents for management of cardiopulmonary Sx. She was noted to have a generalized convulsion on 10/08, for which neurology is consulted... Certainly her acute illness is lowering her seizure threshold.. CTH is without acute intracranial pathology EEG is notable for severe left hemispheric on diffuse slowing 10/12: breakthrough seizure --> ativan rescue Repeat EEG, 10/14, is without evidence of nonconvulsive status. Depakote level on 10/22 is 105. P: Decrease depakote to 1g tid for now. Repeat level daily in am. Cont maintenance Keppra 1000mg bid for now Ativan iv prn prolonged seizure or cluster OK to continue asa for primary stroke prevention daily given her afib Cont low dose seroquel prn agitation Continued medical management per primary Will follow clinically Consultation Date/Type/Reason Admit Date/Time Oct 06, 2018 at 09:29 Type of Consult Neurology Reason for Consultation seizure Requesting Provider: MANUEL ALEMAN Date/Time of Note DATE: 10/22/18 TIME: 14:47 24 HR Interval Summary Free Text/Dictation Continues acute care. Depakote level 105 today. Exam Vital Signs Vitals Vital Signs Date Temp Pulse Resp B/P (MAP) Pulse Ox O2 O2 Flow FiO2 Time Delivery Rate 10/22/18 95 16 97 Nasal 3.0 28 13:33 Cannula 10/22/18 98.8 117/65 10:54 (82) Intake and Output 10/21/18 10/21/18 10/22/18 1515:00 23:00 07:00 IntakeIntake Total 750 ml OutputOutput Total 2050 ml BalanceBalance -1300 ml Exam PE: Gen Appearance: Calm, NAD HEENT: Normocephalic Cardiovascular: Regular rate Abdomen: Soft Extremities: Dry NE: The patient was asleep, though arousable to voice. Incomprehensibly verbal. Able to track. Unable to follow commands. Cranial nerve examination was limited by mental status. Pupils were equal and reactive to light. There was no afferent pupillary defect. Funduscopic examination was limited. Face was grossly symmetric, w/ present corneal and cough reflexes. Tone was slightly increased in her LUE. Muscle bulk was normal. No fasciculations were noted. The patient withdrew all extremities. Coordination and gait testing was limited by mental status. Arm and leg reflexes were symmetric. Bcek's sign was absent. Plantar responses were flexor. CHEYENNE JEAN NP Oct 22, 2018 14:47
--- NOTE | 2018-10-22 14:48 | CONS ---
Assessment/Plan Assessment/Plan Hospital Course (Demo Recall) No acute events patient is noncommunicative in no distress no fevers overnight Allergy: Penicillin, clindamycin Physical examination: Well-developed chronically ill-appearing elderly woman. T he patient is in no distress. Head atraumatic normocephalic. Neck is supple. Chest rise symmetrical, breath sounds diminished bases. Heart: S1-S2, tachycardic, irregular. Abdomen soft bowel sounds hypoactive. Extremities mottled cyanotic Assessment: 1. S/p sepsis 2. S/p E coli bacteremia secondary to urinary tract infection 3. Acute hypoxemic respiratory failure===> extubated 4. S/p Healthcare associated pneumonia, possibly aspiration 4. Acute possibly on chronic kidney disease 5. Non-ST elevation DE 6. Atrial fibrillation status post RVR 7. Seizures . Encephalopathy Plan: Patient remains stable, completed antibiotics, continue aspiration precautions Consultation Date/Type/Reason Admit Date/Time Oct 06, 2018 at 09:29 Initial Consult Date 10/06/18 Type of Consult id Requesting Provider: MANUEL ALEMAN Date/Time of Note DATE: 10/22/18 TIME: 14:46 Exam/Review of Systems Exam Vitals Vital Signs Date Temp Pulse Resp B/P (MAP) Pulse Ox O2 O2 Flow FiO2 Time Delivery Rate 10/22/18 95 16 97 Nasal 3.0 28 13:33 Cannula 10/22/18 98.8 117/65 10:54 (82) Intake and Output 10/21/18 10/21/18 10/22/18 1515:00 23:00 07:00 IntakeIntake Total 750 ml OutputOutput Total 2050 ml BalanceBalance -1300 ml Results Result Diagram: 10/21/18 0549 10/21/18 0549 Results 24hrs Laboratory Tests Test 10/22/18 07:02 Valproic Acid (Depakene) Level 105 H Medications Medication Current Medications IV Flush (NS 3 ml) 3 ml PER PROTOCOL IV ; Start 10/06/18 at 09:30 Ondansetron HCl (Zofran Inj) 4 mg Q6H PRN IV NAUSEA/VOMITING; Start 10/06/18 at 09:30 Acetaminophen (Tylenol Tab) 650 mg Q6H PRN PO .PAIN 1-3 OR TEMP Last administered on 10/12/18at 08:27; Admin Dose 650 MG; Start 10/06/18 at 09:30 Acetaminophen/ Hydrocodone Bitart ([place] (5/325)) 1 tab Q6H PRN PO .MOD PAIN 4- 6; Start 10/06/18 at 09:30 Docusate Sodium (Colace) 100 mg Q12H PRN PO .CONSTIPATION; Start 10/06/18 at 09:30 Magnesium Hydroxide (Milk Of Mag) 30 ml DAILY PRN PO .CONSTIPATION; Start 10/06/18 at 09:30 Albuterol/ Ipratropium (Duoneb) 3 ml Q4H RESP THERAPY PRN HHN SHORTNESS OF BREATH Last administered on 10/22/18at 13:32; Admin Dose 3 ML; Start 10/06/18 at 09:30 Nitroglycerin (Nitroglycerin (Sl Tab) 0.4 Mg) 1 tab Q5M PRN SL ANGINA; Start 10/06/18 at 09:30 Bisacodyl (Dulcolax) 10 mg DAILY PRN PO CONSTIPATION; Start 10/06/18 at 09:30 Donepezil HCl (Aricept) 5 mg QHS PO Last administered on 10/21/18at 21:21; Admin Dose 5 MG; Start 10/06/18 at 21:00 Lactulose (Enulose) 20 gm TID PRN PO CONSTIPATION; Start 10/06/18 at 09:30 Levothyroxine Sodium (Synthroid) 50 mcg BEFORE BREAKFAST PO Last administered on 10/22/18 06:17; Admin Dose 50 MCG; Start 10/07/18 at 07:00 Mineral Oil (Fleet Mineral Oil Enema) 133 ml DAILY PRN [place] CONSTIPATION; Start 10/06/18 at 09:30 Multivitamins Therapeutic (Theragran) 1 tab DAILY PO Last administered on 10/22/18at 09:52; Admin Dose 1 TAB; Start 10/07/18 at 09:00 Aspirin (Aspirin) 81 mg DAILY NGT Last administered on 10/11/18at 09:35; Admin Do se 81 MG; Start 10/06/18 at 12:30; Status Hold Atorvastatin Calcium (Lipitor) 40 mg DAILY@21 NGT Last administered on 10/21/18at 21:21; Admin Dose 40 MG; Start 10/06/18 at 21:00 Miscellaneous Information (Flu Vaccine Previously Dispensed) FLU VACCINE PREVIOU... NOTE PRN XX NOTE; Start 10/06/18 at 18:00 Amiodarone HCl (Cordarone) 200 mg BID PO Last administered on 10/22/18 09:53; Admin Dose 200 MG; Start 10/09/18 at 21:00 Famotidine (Pepcid) 20 mg DAILY NGT Last administered on 10/22/18 09:52; Admin Dose 20 MG; Start 10/10/18 at 09:00 Polyethylene Glycol (Miralax) 17 gm BID PRN PO constipation; Start 10/10/18 at 22:00 Metoprolol Tartrate (Lopressor) 25 mg BID PO Last administered on 10/22/18 09:52; Admin Dose 25 MG; Start 10/12/18 at 15:00 Metoprolol Tartrate (Lopressor) 5 mg Q4H PRN IV HR>110 Hold SBP<100 Last administered on 10/20/18 11:40; Admin Dose 5 MG; Start 10/12/18 at 15:00 Enoxaparin Sodium (Lovenox) 70 mg DAILY SC Last administered on 10/22/18 10:06; Admin Dose 70 MG; Start 10/14/18 at 09:00 Levetiracetam (Keppra Liquid) 1,000 mg BID GTB Last administered on 10/22/18 09:51; Admin Dose 1,000 MG; Start 10/14/18 at 21:00 Lorazepam (Ativan) 1 mg Q4H PRN IV SEIZURES Last administered on 10/20/18 08:20; Admin Dose 1 MG; Start 10/16/18 at 12:00 Morphine Sulfate (morphine) 1 mg Q4H PRN IV .SEVERE PAIN 7-10 Last administered on 10/22/18 04:15; Admin Dose 1 MG; Start 10/16/18 at 15:45 Epoetin Nile (Epogen (Non Esrd/Non Oncology)) 6,000 units MoWeFr@17 SC Last administered on 10/21/18 18:30; Admin Dose 6,000 UNITS; Start 10/18/18 at 17:00 Furosemide (Lasix) 20 mg DAILY@0600 IV Last administered on 10/22/18 06:18; Admin Dose 20 MG; Start 10/18/18 at 12:30 Quetiapine Fumarate (Seroquel) 12.5 mg QID PRN NGT anxiety/agitation Last administered on 10/18/18at 14:38; Admin Dose 12.5 MG; Start 10/18/18 at 14:30 Quetiapine Fumarate (Seroquel) 12.5 mg QHS NGT Last administered on 10/21/18at 21:21; Admin Dose 12.5 MG; Start 10/19/18 at 21:00 Hydralazine HCl (Apresoline) 25 mg Q6 NGT Last administered on 10/22/18at 12:42; Admin Dose 25 MG; Start 10/20/18 at 12:00 Hydralazine HCl (Apresoline) 5 mg Q8H PRN IV sbp >160; Start 10/20/18 at 12:00 [facility] This patient martin... PRN PRN XX WOUND CARE; Start 10/21/18 at 07:30 Valproate Sodium (Depakene Liquid Cup) 1,000 mg Q8 GTB ; Start 10/22/18 at 22:00 MARKOS BRADY NP Oct 22, 2018 14:48
--- NOTE | 2018-10-22 16:12 | PN ---
Date/Time of Note Date/Time of Note DATE: 10/22/18 TIME: 16:10 Assessment/Plan VTE Prophylaxis Risk score (from Ns)>0 risk: 3 SCD applied (from Ns): Yes Pharmacological prophylaxis: LMWH Lines/Catheters IV Catheter Type (from [facility]): Peripheral IV Urinary Cath still in place: Yes Reason Cath still needed: pres ulcer contaminated by urine Assessment/Plan Assessment/Plan 67-year-old female coming in with signs of septic shock, likely secondary to urinary tract infection and pneumonia, elevated troponins, acute renal insufficiency, now intubated on pressor support. Also presented with atrial fibrillation with rapid ventricular response, now in normal sinus rhythm. #Septic shock and respiratory failure - resolved -ID Dr. Sanford following - Likely due to UTI - Urine cultures and Blood cultures growing E Coli x2 -has been off vasopressor support. -Patient extubated 10/18 -Continue current broad-spectrum antibiotics, Tylenol p.r.n. pain and fevers. -Follow pulmonary recommendations #Seizure - Morning of 10/08 had whole body twitching concerning for seizures; got Ativan then Versed. Again on 10/11 had a similar episode broken with Ativan -10/08/18 EEG appears to have localized lesion but CT head is negative. Repeat EEG from 10/15/18 results noted, neuro following. - Continue keppra, valproic acid, follow-up neurology recommendations - Holding versed, but continue Ativan as needed - Low-dose Seroquel as needed for agitation # NSTEMI - Unclear if this is true non-ST elevation myocardial infarction versus demand ischemia- s/p heparin gtt earlier this admission. - Continue high dose aspirin. - Continue Lipitor. - Cardiology Dr. Mello consulted, follow-up their recommendations -continue medical management #A fib with RVR, paroxysmal-stable, Dr. Mello following- Converted to normal sinus after getting Cardizem in ED-apparently went back in A fib later, now the last few days has been in normal sinus rhythm -Monitor heart rate for now, follow cardiology recommendations -Continue p.o. beta-panda and p.o. amiodarone for now # Renal insufficiency - improving- Not anuric - Dr. Davila consulted, monitor for now # Hypothyroidism - Continue current thyroid medicines. - Low TSH, normal fT4 consistent with sick euthyroid syndrome. # History of dementia. - Continue Aricept for now. # History of high cholesterol. - Cont statin #Anemia: Unclear source, hemoglobin in the high 7 - low 8 range; PRBC transfusion performed a few days ago -Monitor CBC daily #Hypernatremia: Resolved now -Monitor, continue current IV fluids # Gastrointestinal prophylaxis- H2 panda. # Deep venous thrombosis prophylaxis - due to anemia- SCDs Dispo: Bioethics meeting held earlier - for now there is no change in the CODE STATUS. Patient requires reintubation, will need to reconsult bioethics team for consideration of tracheostomy at that time if necessary. Result Diagram: 10/21/1849 10/21/1849 Subjective 24 Hr Interval Summary Free Text/Dictation On arrival this morning patient on 10L simple facemask. However when placed on room air, breathing comfortably. Continues to moan occasionally, otherwise unresponsive. Exam/Review of Systems Exam Vitals Vital Signs Date Temp Pulse Resp B/P (MAP) Pulse Ox O2 O2 Flow FiO2 Time Delivery Rate 10/22/18 99.3 103 20 159/83 92 15:32 (108) 10/22/18 Nasal 3.0 28 13:33 Cannula Intake and Output 10/21/18 10/21/18 10/22/18 1515:00 23:00 07:00 IntakeIntake Total 750 ml OutputOutput Total 2050 ml BalanceBalance -1300 ml Exam GENERAL: lying in bed, opens eyes to voice and moans occasionally HEENT: Moist mucous membranes NECK: Supple, no thyromegaly. LUNGS: Mechanical breath sounds equal bilaterally. CARDIOVASCULAR: S1, S2 heard. No rubs or gallops. ABDOMEN: Soft, nontender, nondistended. Normal bowel sounds. No rebound or guarding. MUSCULOSKELETAL: No lower extremity edema bilaterally. Results Results 24hrs Laboratory Tests Test 10/22/18 07:02 Valproic Acid (Depakene) Level 105 H Medications Medication Current Medications IV Flush (NS 3 ml) 3 ml PER PROTOCOL IV ; Start 10/06/18 at 09:30 Ondansetron HCl (Zofran Inj) 4 mg Q6H PRN IV NAUSEA/VOMITING; Start 10/06/18 at 09:30 Acetaminophen (Tylenol Tab) 650 mg Q6H PRN PO .PAIN 1-3 OR TEMP Last administered on 10/12/18at 08:27; Admin Dose 650 MG; Start 10/06/18 at 09:30 Acetaminophen/ Hydrocodone Bitart ([place] (5/325)) 1 tab Q6H PRN PO .MOD PAIN 4- 6; Start 10/06/18 at 09:30 Docusate Sodium (Colace) 100 mg Q12H PRN PO .CONSTIPATION; Start 10/06/18 at 09:30 Magnesium Hydroxide (Milk Of Mag) 30 ml DAILY PRN PO .CONSTIPATION; Start 10/06/18 at 09:30 Albuterol/ Ipratropium (Duoneb) 3 ml Q4H RESP THERAPY PRN HHN SHORTNESS OF BREATH Last administered on 10/22/18at 13:32; Admin Dose 3 ML; Start 10/06/18 at 0 9:30 Nitroglycerin (Nitroglycerin (Sl Tab) 0.4 Mg) 1 tab Q5M PRN SL ANGINA; Start 10/06/18 at 09:30 Bisacodyl (Dulcolax) 10 mg DAILY PRN PO CONSTIPATION; Start 10/06/18 at 09:30 Donepezil HCl (Aricept) 5 mg QHS PO Last administered on 10/21/18at 21:21; Admin Dose 5 MG; Start 10/06/18 at 21:00 Lactulose (Enulose) 20 gm TID PRN PO CONSTIPATION; Start 10/06/18 at 09:30 Levothyroxine Sodium (Synthroid) 50 mcg BEFORE BREAKFAST PO Last administered on 10/22/18at 06:17; Admin Dose 50 MCG; Start 10/07/18 at 07:00 Mineral Oil (Fleet Mineral Oil Enema) 133 ml DAILY PRN [place] CONSTIPATION; Start 10/06/18 at 09:30 Multivitamins Therapeutic (Theragran) 1 tab DAILY PO Last administered on 10/22/18at 09:52; Admin Dose 1 TAB; Start 10/07/18 at 09:00 Aspirin (Aspirin) 81 mg DAILY NGT Last administered on 10/11/18at 09:35; Admin Dose 81 MG; Start 10/06/18 at 12:30; Status Hold Atorvastatin Calcium (Lipitor) 40 mg DAILY@21 NGT Last administered on 10/21/18at 21:21; Admin Dose 40 MG; Start 10/06/18 at 21:00 Miscellaneous Information (Flu Vaccine Previously Dispensed) FLU VACCINE PREVIOU... NOTE PRN XX NOTE; Start 10/06/18 at 18:00 Amiodarone HCl (Cordarone) 200 mg BID PO Last administered on 10/22/18 09:53; Admin Dose 200 MG; Start 10/09/18 at 21:00 Famotidine (Pepcid) 20 mg DAILY NGT Last administered on 10/22/18 09:52; Admin Dose 20 MG; Start 10/10/18 at 09:00 Polyethylene Glycol (Miralax) 17 gm BID PRN PO constipation; Start 10/10/18 at 22:00 Metoprolol Tartrate (Lopressor) 25 mg BID PO Last administered on 10/22/18 09:52; Admin Dose 25 MG; Start 10/12/18 at 15:00 Metoprolol Tartrate (Lopressor) 5 mg Q4H PRN IV HR>110 Hold SBP<100 Last administered on 10/20/18 11:40; Admin Dose 5 MG; Start 10/12/18 at 15:00 Enoxaparin Sodium (Lovenox) 70 mg DAILY SC Last administered on 10/22/18 10:0 6; Admin Dose 70 MG; Start 10/14/18 at 09:00 Levetiracetam (Keppra Liquid) 1,000 mg BID GTB Last administered on 10/22/18 09:51; Admin Dose 1,000 MG; Start 10/14/18 at 21:00 Lorazepam (Ativan) 1 mg Q4H PRN IV SEIZURES Last administered on 10/20/18 08:20; Admin Dose 1 MG; Start 10/16/18 at 12:00 Morphine Sulfate (morphine) 1 mg Q4H PRN IV .SEVERE PAIN 7-10 Last administered on 10/22/18 04:15; Admin Dose 1 MG; Start 10/16/18 at 15:45 Epoetin Nile (Epogen (Non Esrd/Non Oncology)) 6,000 units MoWeFr@17 SC Last administered on 10/21/18 18:30; Admin Dose 6,000 UNITS; Start 10/18/18 at 17:00 Furosemide (Lasix) 20 mg DAILY@0600 IV Last administered on 10/22/18 06:18; Admin Dose 20 MG; Start 10/18/18 at 12:30 Quetiapine Fumarate (Seroquel) 12.5 mg QID PRN NGT anxiety/agitation Last admin istered on 10/18/18at 14:38; Admin Dose 12.5 MG; Start 10/18/18 at 14:30 Quetiapine Fumarate (Seroquel) 12.5 mg QHS NGT Last administered on 10/21/18at 21:21; Admin Dose 12.5 MG; Start 10/19/18 at 21:00 Hydralazine HCl (Apresoline) 25 mg Q6 NGT Last administered on 10/22/18at 12:42; Admin Dose 25 MG; Start 10/20/18 at 12:00 Hydralazine HCl (Apresoline) 5 mg Q8H PRN IV sbp >160; Start 10/20/18 at 12:00 [facility] This patient martin... PRN PRN XX WOUND CARE; Start 10/21/18 at 07:30 Valproate Sodium (Depakene Liquid Cup) 1,000 mg Q8 GTB ; Start 10/22/18 at 22:00 ANGELA MOSQUERA MD Oct 22, 2018 16:12
--- NOTE | 2018-10-22 16:16 | CONS ---
Assessment/Plan Assessment/Plan Assessment/Plan (Daily) Septic shock Resolved patient has been moved to the [facility] History of atrial fibrillation with RVR Dementia Failure to thrive Fluid and electrolyte abnormalities Would suggest bioethics consult to readdress patient's CODE STATUS at this time and whether not patient should be pegged and trached in the event that she has another catastrophic decline.. At the very least I suggested addressing her CODE STATUS. Consultation Date/Type/Reason Admit Date/Time Oct 06, 2018 at 09:29 Initial Consult Date 10/06/18 Requesting Provider: MANUEL ALEMAN Date/Time of Note DATE: 10/22/18 TIME: 16:14 Exam/Review of Systems Exam Vitals Vital Signs Date Temp Pulse Resp B/P (MAP) Pulse Ox O2 O2 Flow FiO2 Time Delivery Rate 10/22/18 99.3 103 20 159/83 92 15:32 (108) 10/22/18 Nasal 3.0 28 13:33 Cannula Intake and Output 10/21/18 10/21/18 10/22/18 1515:00 23:00 07:00 IntakeIntake Total 750 ml OutputOutput Total 2050 ml BalanceBalance -1300 ml Constitutional: non-verbal, distress, frail Psych: confusion (Moaning and groaning) Neck: supple, non-tender Respiratory: diminished breath sounds, labored breathing, respirations Results Result Diagram: 10/21/18 0549 10/21/18 0549 Results 24hrs Laboratory Tests Test 10/22/18 07:02 Valproic Acid (Depakene) Level 105 H Medications Medication Current Medications IV Flush (NS 3 ml) 3 ml PER PROTOCOL IV ; Start 10/06/18 at 09:30 Ondansetron HCl (Zofran Inj) 4 mg Q6H PRN IV NAUSEA/VOMITING; Start 10/06/18 at 09:30 Acetaminophen (Tylenol Tab) 650 mg Q6H PRN PO .PAIN 1-3 OR TEMP Last administered on 10/12/18at 08:27; Admin Dose 650 MG; Start 10/06/18 at 09:30 Acetaminophen/ Hydrocodone Bitart ([place] (5/325)) 1 tab Q6H PRN PO .MOD PAIN 4- 6; Start 10/06/18 at 09:30 Docusate Sodium (Colace) 100 mg Q12H PRN PO .CONSTIPATION; Start 10/06/18 at 09:30 Magnesium Hydroxide (Milk Of Mag) 30 ml DAILY PRN PO .CONSTIPATION; Start 10/06/18 at 09:30 Albuterol/ Ipratropium (Duoneb) 3 ml Q4H RESP THERAPY PRN HHN SHORTNESS OF BREATH Last administered on 10/22/18 13:32; Admin Dose 3 ML; Start 10/06/18 at 09:30 Nitroglycerin (Nitroglycerin (Sl Tab) 0.4 Mg) 1 tab Q5M PRN SL ANGINA; Start 10/06/18 at 09:30 Bisacodyl (Dulcolax) 10 mg DAILY PRN PO CONSTIPATION; Start 10/06/18 at 09:30 Donepezil HCl (Aricept) 5 mg QHS PO Last administered on 10/21/18 21:21; Admin Dose 5 MG; Start 10/06/18 at 21:00 Lactulose (Enulose) 20 gm TID PRN PO CONSTIPATION; Start 10/06/18 at 09:30 Levothyroxine Sodium (Synthroid) 50 mcg BEFORE BREAKFAST PO Last administered on 10/22/18 06:17; Admin Dose 50 MCG; Start 10/07/18 at 07:00 Mineral Oil (Fleet Mineral Oil Enema) 133 ml DAILY PRN [place] CONSTIPATION; Start 10/06/18 at 09:30 Multivitamins Therapeutic (Theragran) 1 tab DAILY PO Last administered on 10/22/18 09:52; Admin Dose 1 TAB; Start 10/07/18 at 09:00 Aspirin (Aspirin) 81 mg DAILY NGT Last administered on 10/11/18 09:35; Admin Dose 81 MG; Start 10/06/18 at 12:30; Status Hold Atorvastatin Calcium (Lipitor) 40 mg DAILY@21 NGT Last administered on 10/21/18 21:21; Admin Dose 40 MG; Start 10/06/18 at 21:00 Miscellaneous Information (Flu Vaccine Previously Dispensed) FLU VACCINE PREVIOU... NOTE PRN XX NOTE; Start 10/06/18 at 18:00 Amiodarone HCl (Cordarone) 200 mg BID PO Last administered on 10/22/18 09:53; Admin Dose 200 MG; Start 10/09/18 at 21:00 Famotidine (Pepcid) 20 mg DAILY NGT Last administered on 10/22/18 09:52; Admin Dose 20 MG; Start 10/10/18 at 09:00 Polyethylene Glycol (Miralax) 17 gm BID PRN PO constipation; Start 10/10/18 at 22:00 Metoprolol Tartrate (Lopressor) 25 mg BID PO Last administered on 10/22/18 09:52; Admin Dose 25 MG; Start 10/12/18 at 15:00 Metoprolol Tartrate (Lopressor) 5 mg Q4H PRN IV HR>110 Hold SBP<100 Last ad ministered on 10/20/18 11:40; Admin Dose 5 MG; Start 10/12/18 at 15:00 Enoxaparin Sodium (Lovenox) 70 mg DAILY SC Last administered on 10/22/18 10:06; Admin Dose 70 MG; Start 10/14/18 at 09:00 Levetiracetam (Keppra Liquid) 1,000 mg BID GTB Last administered on 10/22/18 09:51; Admin Dose 1,000 MG; Start 10/14/18 at 21:00 Lorazepam (Ativan) 1 mg Q4H PRN IV SEIZURES Last administered on 10/20/18 08:20; Admin Dose 1 MG; Start 10/16/18 at 12:00 Morphine Sulfate (morphine) 1 mg Q4H PRN IV .SEVERE PAIN 7-10 Last administered on 10/22/18 04:15; Admin Dose 1 MG; Start 10/16/18 at 15:45 Epoetin Nile (Epogen (Non Esrd/Non Oncology)) 6,000 units MoWeFr@17 SC Last administered on 10/21/18 18:30; Admin Dose 6,000 UNITS; Start 10/18/18 at 17:00 Furosemide (Lasix) 20 mg DAILY@0600 IV Last administered on 10/22/18 06:18; Admin Dose 20 MG; Start 10/18/18 at 12:30 Quetiapine Fumarate (Seroquel) 12.5 mg QID PRN NGT anxiety/agitation Last administered on 10/18/18 14:38; Admin Dose 12.5 MG; Start 10/18/18 at 14:30 Quetiapine Fumarate (Seroquel) 12.5 mg QHS NGT Last administered on 10/21/18at 21:21; Admin Dose 12.5 MG; Start 10/19/18 at 21:00 Hydralazine HCl (Apresoline) 25 mg Q6 NGT Last administered on 10/22/18at 12:42; Admin Dose 25 MG; Start 10/20/18 at 12:00 Hydralazine HCl (Apresoline) 5 mg Q8H PRN IV sbp >160; Start 10/20/18 at 12:00 [facility] This patient martin... PRN PRN XX WOUND CARE; Start 10/21/18 at 07:30 Valproate Sodium (Depakene Liquid Cup) 1,000 mg Q8 GTB ; Start 10/22/18 at 22:00 SHILPA DAVIS Oct 22, 2018 16:15
[2018-10-22] MEDS: QUETIAPINE 25 MG TAB NGT SCH (19:52)
[2018-10-22] MEDS: ATORVASTATIN 40 MG TAB NGT SCH (19:53)
[2018-10-22] MEDS: DONEPEZIL 5 MG TAB PO SCH (19:53)
[2018-10-23] VITALS (11 sets, daily range): BP systolic 96–175; BP diastolic 56–84; PULSE 76–104; RESP 19–20
[2018-10-23] MEDS: QUETIAPINE 25 MG TAB NGT PRN ×2 (02:30→12:08)
[2018-10-23] MEDS: LORAZEPAM 2 MG INJ IV PRN (04:29)
[2018-10-23] MEDS: VALPROIC ACID LIQUID CUP 250 MG/5 ML CUP GTB SCH ×3 (06:00→22:27)
[2018-10-23] MEDS: FUROSEMIDE 20 MG INJ IV SCH (06:00)
[2018-10-23] MEDS: LEVOTHYROXINE 50 MCG TAB PO SCH (06:00)
[2018-10-23] MEDS: FAMOTIDINE 20 MG TAB NGT SCH (08:46)
[2018-10-23] MEDS: MULTIVITAMINS THERAPEUTIC TAB PO SCH (08:46)
[2018-10-23] MEDS: METOPROLOL 25 MG TAB PO SCH ×2 (08:46→20:45)
[2018-10-23] MEDS: LEVETIRACETAM (100 MG/ML) 5ML CUP GTB SCH ×2 (08:46→20:39)
[2018-10-23] MEDS: AMIODARONE 200 MG TAB PO SCH ×2 (08:47→20:40)
[2018-10-23] MEDS: ENOXAPARIN 100 MG/ML SYG SC SCH (08:49)
[2018-10-23] MEDS: BALSAM PERU/CASTOR OIL 60 GM TUBE TOP SCH (08:50)
--- NOTE | 2018-10-23 09:12 | CONS ---
Assessment/Plan Assessment/Plan Assessment/Plan (Daily) 1. Non Oliguric Acute kidney injury due to ATN from septic shock - Improving 2. Septic shock due to UTI 3. acute UTI with Urine Cx growing E.Coli 4. Acute hypoxic respiratory failure intubated on ventilator - s/p Extubation on 10/18/18 5. H/o HTN 6 H/o HL 7. H/o Hypothyroidism 8. E.Coli bacteremia Plan: Na 141, BUN/Cr 31/0.92- Hb 9.8 on epogen 6000 units MWF for anemia adequate urine output still intermittently confused, Bp stable will follow up Consultation Date/Type/Reason Admit Date/Time Oct 06, 2018 at 09:29 Initial Consult Date 10/06/18 Type of Consult NEPHROLOGY Requesting Provider: MANUEL ALEMAN Date/Time of Note DATE: 10/23/18 TIME: 09:12 Exam/Review of Systems Exam Vitals Vital Signs Date Temp Pulse Resp B/P (MAP) Pulse Ox O2 O2 Flow FiO2 Time Delivery Rate 10/23/18 90 08:20 10/23/18 98.5 20 133/72 95 07:10 (92) 10/23/18 Nasal 04:28 Cannula 10/23/18 2.0 03:21 10/22/18 28 13:33 Intake and Output 10/22/18 10/22/18 10/23/18 1515:00 23:00 07:00 IntakeIntake Total 1000 ml 800 ml OutputOutput Total 2000 ml 1500 ml BalanceBalance -1000 ml -700 ml Exam Constitutional: alert, other (Confused, lethargic ) Respiratory: clear to auscultation, normal air movement, diminished breath sounds Cardiovascular: regular rate and rhythm, nl pulses Gastrointestinal: soft, non-tender Musculoskeletal: nl extremities to inspection, swelling Neurological: other ( confused, uncooperative for neuro exam ) Results Result Diagram: 10/23/18 0621 10/23/18 0621 Results 24hrs Laboratory Tests Test 10/23/18 06:21 White Blood Count 6.3 Red Blood Count 3.21 L Hemoglobin 9.8 L Hematocrit 30.7 L Mean Corpuscular Volume 95.6 Mean Corpuscular Hemoglobin 30.5 Mean Corpuscular Hemoglobin Concent 31.9 L Red Cell Distribution Width 15.3 H Platelet Count 421 H Mean Platelet Volume 10.9 H Immature Granulocytes % 0.500 H Neutrophils % 67.3 Lymphocytes % 22.7 Monocytes % 8.4 Eosinophils % 0.6 Basophils % 0.5 Nucleated Red Blood Cells % 0.0 Immature Granulocytes # 0.030 Neutrophils # 4.3 Lymphocytes # 1.4 Monocytes # 0.5 Eosinophils # 0.0 Basophils # 0.0 Nucleated Red Blood Cells # 0.0 Sodium Level 141 Potassium Level 4.3 Chloride Level 101 Carbon Dioxide Level 30 Anion Gap 10 Blood Urea Nitrogen 31 H Creatinine 0.92 Est Glomerular Filtrat Rate mL/min > 60 Glucose Level 116 Calcium Level 9.7 Magnesium Level 1.8 Total Bilirubin 0.3 Direct Bilirubin 0.00 Indirect Bilirubin 0.3 Aspartate Amino Transf (AST/SGOT) 22 Alanine Aminotransferase (ALT/SGPT) < 6 L Alkaline Phosphatase 79 Total Protein 8.3 H Albumin 3.5 Globulin 4.80 H Albumin/Globulin Ratio 0.72 Valproic Acid (Depakene) Level 102 H Medications Medication Current Medications IV Flush (NS 3 ml) 3 ml PER PROTOCOL IV ; Start 10/06/18 at 09:30 Ondansetron HCl (Zofran Inj) 4 mg Q6H PRN IV NAUSEA/VOMITING; Start 10/06/18 at 09:30 Acetaminophen (Tylenol Tab) 650 mg Q6H PRN PO .PAIN 1-3 OR TEMP Last administered on 10/12/18at 08:27; Admin Dose 650 MG; Start 10/06/18 at 09:30 Acetaminophen/ Hydrocodone Bitart ([place] (5/325)) 1 tab Q6H PRN PO .MOD PAIN 4- 6; Start 10/06/18 at 09:30 Docusate Sodium (Colace) 100 mg Q12H PRN PO .CONSTIPATION; Start 10/06/18 at 09:30 Magnesium Hydroxide (Milk Of Mag) 30 ml DAILY PRN PO .CONSTIPATION; Start 10/06/18 at 09:30 Albuterol/ Ipratropium (Duoneb) 3 ml Q4H RESP THERAPY PRN HHN SHORTNESS OF BREATH Last administered on 10/22/18at 20:22; Admin Dose 3 ML; Start 10/06/18 at 09:30 Nitroglycerin (Nitroglycerin (Sl Tab) 0.4 Mg) 1 tab Q5M PRN SL ANGINA; Start 10/06/18 at 09:30 Bisacodyl (Dulcolax) 10 mg DAILY PRN PO CONSTIPATION; Start 10/06/18 at 09:30 Donepezil HCl (Aricept) 5 mg QHS PO Last administered on 10/22/18 19:53; Admin Dose 5 MG; Start 10/06/18 at 21:00 Lactulose (Enulose) 20 gm TID PRN PO CONSTIPATION; Start 10/06/18 at 09:30 Levothyroxine Sodium (Synthroid) 50 mcg BEFORE BREAKFAST PO Last administered on 10/23/18 06:00; Admin Dose 50 MCG; Start 10/07/18 at 07:00 Mineral Oil (Fleet Mineral Oil Enema) 133 ml DAILY PRN [place] CONSTIPATION; Start 10/06/18 at 09:30 Multivitamins Therapeutic (Theragran) 1 tab DAILY PO Last administered on 10/23/18 08:46; Admin Dose 1 TAB; Start 10/07/18 at 09:00 Aspirin (Aspirin) 81 mg DAILY NGT Last administered on 10/11/18 09:35; Admin Do se 81 MG; Start 10/06/18 at 12:30; Status Hold Atorvastatin Calcium (Lipitor) 40 mg DAILY@21 NGT Last administered on 10/22/18 19:53; Admin Dose 40 MG; Start 10/06/18 at 21:00 Miscellaneous Information (Flu Vaccine Previously Dispensed) FLU VACCINE PREVIOU... NOTE PRN XX NOTE; Start 10/06/18 at 18:00 Amiodarone HCl (Cordarone) 200 mg BID PO Last administered on 10/23/18 08:47; Admin Dose 200 MG; Start 10/09/18 at 21:00 Famotidine (Pepcid) 20 mg DAILY NGT Last administered on 10/23/18 08:46; Admin Dose 20 MG; Start 10/10/18 at 09:00 Polyethylene Glycol (Miralax) 17 gm BID PRN PO constipation; Start 10/10/18 at 22:00 Metoprolol Tartrate (Lopressor) 25 mg BID PO Last administered on 10/23/18 08:46; Admin Dose 25 MG; Start 10/12/18 at 15:00 Metoprolol Tartrate (Lopressor) 5 mg Q4H PRN IV HR>110 Hold SBP<100 Last administered on 10/20/18 11:40; Admin Dose 5 MG; Start 10/12/18 at 15:00 Enoxaparin Sodium (Lovenox) 70 mg DAILY SC Last administered on 10/23/18 08:49; Admin Dose 70 MG; Start 10/14/18 at 09:00 Levetiracetam (Keppra Liquid) 1,000 mg BID GTB Last administered on 10/23/18 08:46; Admin Dose 1,000 MG; Start 10/14/18 at 21:00 Lorazepam (Ativan) 1 mg Q4H PRN IV SEIZURES Last administered on 10/23/18 04:29; Admin Dose 1 MG; Start 10/16/18 at 12:00 Morphine Sulfate (morphine) 1 mg Q4H PRN IV .SEVERE PAIN 7-10 Last administered on 10/22/18 04:15; Admin Dose 1 MG; Start 10/16/18 at 15:45 Epoetin Nile (Epogen (Non Esrd/Non Oncology)) 6,000 units MoWeFr@17 SC Last administered on 10/21/18 18:30; Admin Dose 6,000 UNITS; Start 10/18/18 at 17:00 Furosemide (Lasix) 20 mg DAILY@0600 IV Last administered on 10/23/18 06:00; Admin Dose 20 MG; Start 10/18/18 at 12:30 Quetiapine Fumarate (Seroquel) 12.5 mg QID PRN NGT anxiety/agitation Last administered on 10/23/18 02:30; Admin Dose 12.5 MG; Start 10/18/18 at 14:30 Quetiapine Fumarate (Seroquel) 12.5 mg QHS NGT Last administered on 10/22/18 19:52; Admin Dose 12.5 MG; Start 10/19/18 at 21:00 Hydralazine HCl (Apresoline) 25 mg Q6 NGT Last administered on 10/23/18 06:01; Admin Dose 25 MG; Start 10/20/18 at 12:00 Hydralazine HCl (Apresoline) 5 mg Q8H PRN IV sbp >160; Start 10/20/18 at 12:00 [facility] This patient martin... PRN PRN XX WOUND CARE; Start 10/21/18 at 07:30 Valproate Sodium (Depakene Liquid Cup) 1,000 mg Q8 GTB Last administered on 10/23/18at 06:00; Admin Dose 1,000 MG; Start 10/22/18 at 22:00 VALARIE BENNETT MD Oct 23, 2018 09:12
[2018-10-23] MEDS: ALBUTEROL/IPRATROPIUM (NEB) 3 ML AMP HHN PRN ×2 (09:46→16:18)
--- NOTE | 2018-10-23 10:46 | CONS ---
Assessment/Plan Assessment/Plan Hospital Course (Demo Recall) No acute events patient is noncommunicative looks comfortable, no fevers Allergy: Penicillin, clindamycin Physical examination: Well-developed chronically ill-appearing elderly woman. The patient is in no distress. Head atraumatic normocephalic. Neck is supple. Chest rise symmetrical, breath sounds diminished bases. Heart: S1-S2, tachycardic, irregular. Abdomen soft bowel sounds hypoactive. Extremities mottled cyanotic Assessment: 1. S/p sepsis 2. S/p E coli bacteremia secondary to urinary tract infection 3. Acute hypoxemic respiratory failure===> extubated 4. S/p Healthcare associated pneumonia, possibly aspiration 4. S/p UMBERTO 5. Non-ST elevation [place] 6. Atrial fibrillation status post RVR 7. Seizures 8. Encephalopathy Plan: Patient remains unchanged, off antibiotics, continue aspiration precautions, SZ management Consultation Date/Type/Reason Admit Date/Time Oct 06, 2018 at 09:29 Initial Consult Date 10/06/18 Type of Consult id Requesting Provider: MANUEL ALEMAN Date/Time of Note DATE: 10/23/18 TIME: 10:45 Exam/Review of Systems Exam Vitals Vital Signs Date Temp Pulse Resp B/P (MAP) Pulse Ox O2 O2 Flow FiO2 Time Delivery Rate 10/23/18 95 2.0 09:46 10/23/18 80 20 Nasal 09:46 Cannula 10/23/18 98.5 133/72 07:10 (92) 10/22/18 28 13:33 Intake and Output 10/22/18 10/22/18 10/23/18 1515:00 23:00 07:00 IntakeIntake Total 1000 ml 800 ml OutputOutput Total 2000 ml 1500 ml BalanceBalance -1000 ml -700 ml Results Result Diagram: 10/23/18 0621 10/23/18 0621 Results 24hrs Laboratory Tests Test 10/23/18 06:21 White Blood Count 6.3 Red Blood Count 3.21 L Hemoglobin 9.8 L Hematocrit 30.7 L Mean Corpuscular Volume 95.6 Mean Corpuscular Hemoglobin 30.5 Mean Corpuscular Hemoglobin Concent 31.9 L Red Cell Distribution Width 15.3 H Platelet Count 421 H Mean Platelet Volume 10.9 H Immature Granulocytes % 0.500 H Neutrophils % 67.3 Lymphocytes % 22.7 Monocytes % 8.4 Eosinophils % 0.6 Basophils % 0.5 Nucleated Red Blood Cells % 0.0 Immature Granulocytes # 0.030 Neutrophils # 4.3 Lymphocytes # 1.4 Monocytes # 0.5 Eosinophils # 0.0 Basophils # 0.0 Nucleated Red Blood Cells # 0.0 Sodium Level 141 Potassium Level 4.3 Chloride Level 101 Carbon Dioxide Level 30 Anion Gap 10 Blood Urea Nitrogen 31 H Creatinine 0.92 Est Glomerular Filtrat Rate mL/min > 60 Glucose Level 116 Calcium Level 9.7 Magnesium Level 1.8 Total Bilirubin 0.3 Direct Bilirubin 0.00 Indirect Bilirubin 0.3 Aspartate Amino Transf (AST/SGOT) 22 Alanine Aminotransferase (ALT/SGPT) < 6 L Alkaline Phosphatase 79 Total Protein 8.3 H Albumin 3.5 Globulin 4.80 H Albumin/Globulin Ratio 0.72 Valproic Acid (Depakene) Level 102 H Medications Medication Current Medications IV Flush (NS 3 ml) 3 ml PER PROTOCOL IV ; Start 10/06/18 at 09:30 Ondansetron HCl (Zofran Inj) 4 mg Q6H PRN IV NAUSEA/VOMITING; Start 10/06/18 at 09:30 Acetaminophen (Tylenol Tab) 650 mg Q6H PRN PO .PAIN 1-3 OR TEMP Last administered on 10/12/18at 08:27; Admin Dose 650 MG; Start 10/06/18 at 09:30 Acetaminophen/ Hydrocodone Bitart ([place] (5/325)) 1 tab Q6H PRN PO .MOD PAIN 4- 6; Start 10/06/18 at 09:30 Docusate Sodium (Colace) 100 mg Q12H PRN PO .CONSTIPATION; Start 10/06/18 at 09:30 Magnesium Hydroxide (Milk Of Mag) 30 ml DAILY PRN PO .CONSTIPATION; Start 10/06/18 at 09:30 Albuterol/ Ipratropium (Duoneb) 3 ml Q4H RESP THERAPY PRN HHN SHORTNESS OF BREATH Last administered on 10/23/18at 09:46; Admin Dose 3 ML; Start 10/06/18 at 09:30 Nitroglycerin (Nitroglycerin (Sl Tab) 0.4 Mg) 1 tab Q5M PRN SL ANGINA; Start 10/06/18 at 09:30 Bisacodyl (Dulcolax) 10 mg DAILY PRN PO CONSTIPATION; Start 10/06/18 at 09:30 Donepezil HCl (Aricept) 5 mg QHS PO Last administered on 10/22/18 19:53; Admin Dose 5 MG; Start 10/06/18 at 21:00 Lactulose (Enulose) 20 gm TID PRN PO CONSTIPATION; Start 10/06/18 at 09:30 Levothyroxine Sodium (Synthroid) 50 mcg BEFORE BREAKFAST PO Last administered on 10/23/18 06:00; Admin Dose 50 MCG; Start 10/07/18 at 07:00 Mineral Oil (Fleet Mineral Oil Enema) 133 ml DAILY PRN [place] CONSTIPATION; Start 10/06/18 at 09:30 Multivitamins Therapeutic (Theragran) 1 tab DAILY PO Last administered on 10/23/18 08:46; Admin Dose 1 TAB; Start 10/07/18 at 09:00 Aspirin (Aspirin) 81 mg DAILY NGT Last administered on 10/11/18 09:35; Admin Dose 81 MG; Start 10/06/18 at 12:30; Status Hold Atorvastatin Calcium (Lipitor) 40 mg DAILY@21 NGT Last administered on 10/22/18 19:53; Admin Dose 40 MG; Start 10/06/18 at 21:00 Miscellaneous Information (Flu Vaccine Previously Dispensed) FLU VACCINE PREVIOU... NOTE PRN XX NOTE; Start 10/06/18 at 18:00 Amiodarone HCl (Cordarone) 200 mg BID PO Last administered on 10/23/18 08:47; Admin Dose 200 MG; Start 10/09/18 at 21:00 Famotidine (Pepcid) 20 mg DAILY NGT Last administered on 10/23/18 08:46; Admin Dose 20 MG; Start 10/10/18 at 09:00 Polyethylene Glycol (Miralax) 17 gm BID PRN PO constipation; Start 10/10/18 at 22:00 Metoprolol Tartrate (Lopressor) 25 mg BID PO Last administered on 10/23/18 08:46; Admin Dose 25 MG; Start 10/12/18 at 15:00 Metoprolol Tartrate (Lopressor) 5 mg Q4H PRN IV HR>110 Hold SBP<100 Last administered on 10/20/18at 11:40; Admin Dose 5 MG; Start 10/12/18 at 15:00 Enoxaparin Sodium (Lovenox) 70 mg DAILY SC Last administered on 10/23/18 08:49; Admin Dose 70 MG; Start 10/14/18 at 09:00 Levetiracetam (Keppra Liquid) 1,000 mg BID GTB Last administered on 10/23/18 08:46; Admin Dose 1,000 MG; Start 10/14/18 at 21:00 Lorazepam (Ativan) 1 mg Q4H PRN IV SEIZURES Last administered on 10/23/18 04:29; Admin Dose 1 MG; Start 10/16/18 at 12:00 Morphine Sulfate (morphine) 1 mg Q4H PRN IV .SEVERE PAIN 7-10 Last administered on 10/22/18 04:15; Admin Dose 1 MG; Start 10/16/18 at 15:45 Epoetin Nile (Epogen (Non Esrd/Non Oncology)) 6,000 units MoWeFr@17 SC Last administered on 10/21/18 18:30; Admin Dose 6,000 UNITS; Start 10/18/18 at 17:00 Furosemide (Lasix) 20 mg DAILY@0600 IV Last administered on 10/23/18 06:00; Admin Dose 20 MG; Start 10/18/18 at 12:30 Quetiapine Fumarate (Seroquel) 12.5 mg QID PRN NGT anxiety/agitation Last administered on 10/23/18 02:30; Admin Dose 12.5 MG; Start 10/18/18 at 14:30 Quetiapine Fumarate (Seroquel) 12.5 mg QHS NGT Last administered on 10/22/18 19:52; Admin Dose 12.5 MG; Start 10/19/18 at 21:00 Hydralazine HCl (Apresoline) 25 mg Q6 NGT Last administered on 10/23/18 06:01; Admin Dose 25 MG; Start 10/20/18 at 12:00 Hydralazine HCl (Apresoline) 5 mg Q8H PRN IV sbp >160; Start 10/20/18 at 12:00 Miscellaneous Information (Pending [facility] Order For Wound Care) This patient martin... PRN PRN XX WOUND CARE; Start 3/18/19 at 07:30 Valproate Sodium (Depakene Liquid Cup) 1,000 mg Q8 GTB Last administered on 10/23/18at 06:00; Admin Dose 1,000 MG; Start 10/22/18 at 22:00 MARKOS BRADY NP Oct 23, 2018 10:46
--- NOTE | 2018-10-23 10:52 | CONS ---
Assessment/Plan Assessment/Plan Assessment/Plan (Daily) Assessment and recommendations; 1. Patient admitted for respiratory failure status post extubation with stable clinical status. 2. Advanced dementia. 3. Paroxysmal atrial fibrillation, currently in sinus rhythm. 4. Stable seizure disorder. 5. Dysphagia due to dementia. Maintained on nasogastric tube. 6. Non-STEMI. 7. UTI, status post treatment. 8. Anemia. Continue current supportive care. Patient will need to have a G-tube placed. Consider transfer to alf after G-tube placement. Prognosis is poor. Consultation Date/Type/Reason Admit Date/Time Oct 06, 2018 at 09:29 Initial Consult Date 10/06/18 Type of Consult Pulmonary/critical care Patient's condition remains critical. Still requiring invasive mechanical ventilation. Patient however has improved hemodynamically and is off pressor support. General exam; elderly female, orally intubated, exhibiting tremor-like activity. Unresponsive. Requesting Provider: MANUEL ALEMAN Date/Time of Note DATE: 10/23/18 TIME: 10:50 24 HR Interval Summary Free Text/Dictation Patient's condition is tenuous but stable. On Ventimask. Patient remains essentially noncommunicative. General exam; elderly female, currently no distress. Noncommunicative. Exam/Review of Systems Exam Vitals Vital Signs Date Temp Pulse Resp B/P (MAP) Pulse Ox O2 O2 Flow FiO2 Time Delivery Rate 10/23/18 95 2.0 09:46 10/23/18 80 20 Nasal 09:46 Cannula 10/23/18 98.5 133/72 07:10 (92) 10/22/18 28 13:33 Intake and Output 10/22/18 10/22/18 10/23/18 1515:00 23:00 07:00 IntakeIntake Total 1000 ml 800 ml OutputOutput Total 2000 ml 1500 ml BalanceBalance -1000 ml -700 ml Exam H EENT exam; supple neck, no JVD. No lymphadenopathy. Midline trachea. No thyromegaly. Nasogastric tube in place. Patient is edentulous. Chest exam; diminished breath sounds bilaterally. S1-S2 audible, no murmurs. Regular rhythm. Abdomen exam; soft, no organomegaly. Bowel sounds audible. Extremity exam; no peripheral edema. [employer] exam; patient remains noncommunicative. Results Result Diagram: 10/23/18 0621 10/23/18 0621 Results 24hrs Laboratory Tests Test 10/23/18 06:21 White Blood Count 6.3 Red Blood Count 3.21 L Hemoglobin 9.8 L Hematocrit 30.7 L Mean Corpuscular Volume 95.6 Mean Corpuscular Hemoglobin 30.5 Mean Corpuscular Hemoglobin Concent 31.9 L Red Cell Distribution Width 15.3 H Platelet Count 421 H Mean Platelet Volume 10.9 H Immature Granulocytes % 0.500 H Neutrophils % 67.3 Lymphocytes % 22.7 Monocytes % 8.4 Eosinophils % 0.6 Basophils % 0.5 Nucleated Red Blood Cells % 0.0 Immature Granulocytes # 0.030 Neutrophils # 4.3 Lymphocytes # 1.4 Monocytes # 0.5 Eosinophils # 0.0 Basophils # 0.0 Nucleated Red Blood Cells # 0.0 Sodium Level 141 Potassium Level 4.3 Chloride Level 101 Carbon Dioxide Level 30 Anion Gap 10 Blood Urea Nitrogen 31 H Creatinine 0.92 Est Glomerular Filtrat Rate mL/min > 60 Glucose Level 116 Calcium Level 9.7 Magnesium Level 1.8 Total Bilirubin 0.3 Direct Bilirubin 0.00 Indirect Bilirubin 0.3 Aspartate Amino Transf (AST/SGOT) 22 Alanine Aminotransferase (ALT/SGPT) < 6 L Alkaline Phosphatase 79 Total Protein 8.3 H Albumin 3.5 Globulin 4.80 H Albumin/Globulin Ratio 0.72 Valproic Acid (Depakene) Level 102 H Medications Medication Current Medications IV Flush (NS 3 ml) 3 ml PER PROTOCOL IV ; Start 10/06/18 at 09:30 Ondansetron HCl (Zofran Inj) 4 mg Q6H PRN IV NAUSEA/VOMITING; Start 10/06/18 at 09:30 Acetaminophen (Tylenol Tab) 650 mg Q6H PRN PO .PAIN 1-3 OR TEMP Last administered on 10/12/18at 08:27; Admin Dose 650 MG; Start 10/06/18 at 09:30 Acetaminophen/ Hydrocodone Bitart ([place] (5/325)) 1 tab Q6H PRN PO .MOD PAIN 4- 6; Start 10/06/18 at 09:30 Docusate Sodium (Colace) 100 mg Q12H PRN PO .CONSTIPATION; Start 10/06/18 at 09: 30 Magnesium Hydroxide (Milk Of Mag) 30 ml DAILY PRN PO .CONSTIPATION; Start 10/06/18 at 09:30 Albuterol/ Ipratropium (Duoneb) 3 ml Q4H RESP THERAPY PRN HHN SHORTNESS OF BREATH Last administered on 10/23/18 09:46; Admin Dose 3 ML; Start 10/06/18 at 09:30 Nitroglycerin (Nitroglycerin (Sl Tab) 0.4 Mg) 1 tab Q5M PRN SL ANGINA; Start 10/06/18 at 09:30 Bisacodyl (Dulcolax) 10 mg DAILY PRN PO CONSTIPATION; Start 10/06/18 at 09:30 Donepezil HCl (Aricept) 5 mg QHS PO Last administered on 10/22/18 19:53; Admin Dose 5 MG; Start 10/06/18 at 21:00 Lactulose (Enulose) 20 gm TID PRN PO CONSTIPATION; Start 10/06/18 at 09:30 Levothyroxine Sodium (Synthroid) 50 mcg BEFORE BREAKFAST PO Last administered on 10/23/18 06:00; Admin Dose 50 MCG; Start 10/07/18 at 07:00 Mineral Oil (Fleet Mineral Oil Enema) 133 ml DAILY PRN [place] CONSTIPATION; Start 10/06/18 at 09:30 Multivitamins Therapeutic (Theragran) 1 tab DAILY PO Last administered on 10/23/18 08:46; Admin Dose 1 TAB; Start 10/07/18 at 09:00 Aspirin (Aspirin) 81 mg DAILY NGT Last administered on 10/11/18 09:35; Admin Dose 81 MG; Start 10/06/18 at 12:30; Status Hold Atorvastatin Calcium (Lipitor) 40 mg DAILY@21 NGT Last administered on 10/22/18 19:53; Admin Dose 40 MG; Start 10/06/18 at 21:00 Miscellaneous Information (Flu Vaccine Previously Dispensed) FLU VACCINE PREVIOU... NOTE PRN XX NOTE; Start 10/06/18 at 18:00 Amiodarone HCl (Cordarone) 200 mg BID PO Last administered on 10/23/18 08:47; Admin Dose 200 MG; Start 10/09/18 at 21:00 Famotidine (Pepcid) 20 mg DAILY NGT Last administered on 10/23/18 08:46; Admin Dose 20 MG; Start 10/10/18 at 09:00 Polyethylene Glycol (Miralax) 17 gm BID PRN PO constipation; Start 10/10/18 at 22:00 Metoprolol Tartrate (Lopressor) 25 mg BID PO Last administered on 10/23/18 08:46; Admin Dose 25 MG; Start 10/12/18 at 15:00 Metoprolol Tartrate (Lopressor) 5 mg Q4H PRN IV HR>110 Hold SBP<100 Last a dministered on 10/20/18 11:40; Admin Dose 5 MG; Start 10/12/18 at 15:00 Enoxaparin Sodium (Lovenox) 70 mg DAILY SC Last administered on 10/23/18 08:49; Admin Dose 70 MG; Start 10/14/18 at 09:00 Levetiracetam (Keppra Liquid) 1,000 mg BID GTB Last administered on 10/23/18 08:46; Admin Dose 1,000 MG; Start 10/14/18 at 21:00 Lorazepam (Ativan) 1 mg Q4H PRN IV SEIZURES Last administered on 10/23/18 04:29; Admin Dose 1 MG; Start 10/16/18 at 12:00 Morphine Sulfate (morphine) 1 mg Q4H PRN IV .SEVERE PAIN 7-10 Last administered on 10/22/18 04:15; Admin Dose 1 MG; Start 10/16/18 at 15:45 Epoetin Nile (Epogen (Non Esrd/Non Oncology)) 6,000 units MoWeFr@17 SC Last administered on 10/21/18 18:30; Admin Dose 6,000 UNITS; Start 10/18/18 at 17:00 Furosemide (Lasix) 20 mg DAILY@0600 IV Last administered on 10/23/18 06:00; Admin Dose 20 MG; Start 10/18/18 at 12:30 Quetiapine Fumarate (Seroquel) 12.5 mg QID PRN NGT anxiety/agitation Last administered on 10/23/18 02:30; Admin Dose 12.5 MG; Start 10/18/18 at 14:30 Quetiapine Fumarate (Seroquel) 12.5 mg QHS NGT Last administered on 10/22/18 19:52; Admin Dose 12.5 MG; Start 10/19/18 at 21:00 Hydralazine HCl (Apresoline) 25 mg Q6 NGT Last administered on 10/23/18at 06:01; Admin Dose 25 MG; Start 10/20/18 at 12:00 Hydralazine HCl (Apresoline) 5 mg Q8H PRN IV sbp >160; Start 10/20/18 at 12:00 Miscellaneous Information (Pending Santyl Order For Wound Care) This patient martin... PRN PRN XX WOUND CARE; Start 10/21/18 at 07:30 Valproate Sodium (Depakene Liquid Cup) 1,000 mg Q8 GTB Last administered on 10/23/18at 06:00; Admin Dose 1,000 MG; Start 10/22/18 at 22:00 YANETH CASTELLANOS Oct 23, 2018 10:52
--- NOTE | 2018-10-23 10:53 | PN ---
Date/Time of Note Date/Time of Note DATE: 10/23/18 TIME: 10:47 Assessment/Plan VTE Prophylaxis Risk score (from Ns)>0 risk: 10 SCD applied (from Ns): Yes Pharmacological prophylaxis: LMWH Lines/Catheters IV Catheter Type (from [facility]): Peripheral IV Urinary Cath still in place: Yes Reason Cath still needed: pres ulcer contaminated by urine Assessment/Plan Assessment/Plan 67-year-old female coming in with signs of septic shock, likely secondary to urinary tract infection and pneumonia, elevated troponins, acute renal insufficiency, now intubated on pressor support. Also presented with atrial fibrillation with rapid ventricular response, now in normal sinus rhythm. #Septic shock and respiratory failure - resolved -ID Dr. Sanford following - Likely due to UTI - Urine cultures and Blood cultures growing E Coli x2 -has been off vasopressor support. -Patient extubated 10/18 -Continue current broad-spectrum antibiotics, Tylenol p.r.n. pain and fevers. -Follow pulmonary recommendations #Seizure - Morning of 10/08 had whole body twitching concerning for seizures; got Ativan then Versed. Again on 10/11 had a similar episode broken with Ativan -10/08/18 EEG appears to have localized lesion but CT head is negative. Repeat EEG from 10/15/18 results noted, neuro following. - Continue keppra, valproic acid, follow-up neurology recommendations - Holding versed, but continue Ativan as needed - Low-dose Seroquel as needed for agitation # NSTEMI - Unclear if this is true non-ST elevation myocardial infarction versus demand ischemia- s/p heparin gtt earlier this admission. - Continue high dose aspirin. - Continue Lipitor. - Cardiology Dr. Mello consulted, follow-up their recommendations -continue medical management #A fib with RVR, paroxysmal-stable, Dr. Mello following- Converted to normal sinus after getting Cardizem in ED-apparently went back in A fib later, now the last few days has been in normal sinus rhythm -Monitor heart rate for now, follow cardiology recommendations -Continue p.o. beta-panda and p.o. amiodarone for now # Renal insufficiency - improving- Not anuric - Dr. Davila consulted, monitor for now # Hypothyroidism - Continue current thyroid medicines. - Low TSH, normal fT4 consistent with sick euthyroid syndrome. # History of dementia. - Continue Aricept for now. # History of high cholesterol. - Cont statin #Anemia: Unclear source, hemoglobin in the high 7 - low 8 range; PRBC transfusi on performed a few days ago -Monitor CBC daily #Hypernatremia: Resolved now -Monitor, continue current IV fluids # Gastrointestinal prophylaxis- H2 panda. # Deep venous thrombosis prophylaxis - due to anemia- SCDs Dispo: This is a severely disabled woman as documented on prior admissions with minimal level of function. She is currently lying in bed, able to moan, not demonstrating any movement of limbs. Also currently unable to swallow. Personally, I believe she should be made at least DNR/DNI because coding her would cause major suffering and would not recover much function. Similarly, PEG and trach seems inappropriate in this patient because they will create surgical risk in a patient without clear benefit. If she does not make substantial improvement in the next few weeks; hospice may be considered. We will plan a bioethics meeting to discuss the above. Result Diagram: 10/23/1862010/23/18620 Subjective 24 Hr Interval Summary Free Text/Dictation No acute overnight events. Continues to lie in bed with eyes closed. Strong moan. Exam/Review of Systems Exam Vitals Vital Signs Date Temp Pulse Resp B/P (MAP) Pulse Ox O2 O2 Flow FiO2 Time Delivery Rate 10/23/18 95 2.0 09:46 10/23/18 80 20 Nasal 09:46 Cannula 10/23/18 98.5 133/72 07:10 (92) 10/22/18 28 13:33 Intake and Output 10/22/18 10/22/18 10/23/18 1515:00 23:00 07:00 IntakeIntake Total 1000 ml 800 ml OutputOutput Total 2000 ml 1500 ml BalanceBalance -1000 ml -700 ml Exam GENERAL: lying in bed, opens eyes to voice and moans occasionally HEENT: Moist mucous membranes NECK: Supple, no thyromegaly. LUNGS: Mechanical breath sounds equal bilaterally. CARDIOVASCULAR: S1, S2 heard. No rubs or gallops. ABDOMEN: Soft, nontender, nondistended. Normal bowel sounds. No rebound or guarding. MUSCULOSKELETAL: No lower extremity edema bilaterally. Results Results 24hrs Laboratory Tests Test 10/23/18 06:21 White Blood Count 6.3 Red Blood Count 3.21 L Hemoglobin 9.8 L Hematocrit 30.7 L Mean Corpuscular Volume 95.6 Mean Corpuscular Hemoglobin 30.5 Mean Corpuscular Hemoglobin Concent 31.9 L Red Cell Distribution Width 15.3 H Platelet Count 421 H Mean Platelet Volume 10.9 H Immature Granulocytes % 0.500 H Neutrophils % 67.3 Lymphocytes % 22.7 Monocytes % 8.4 Eosinophils % 0.6 Basophils % 0.5 Nucleated Red Blood Cells % 0.0 Immature Granulocytes # 0.030 Neutrophils # 4.3 Lymphocytes # 1.4 Monocytes # 0.5 Eosinophils # 0.0 Basophils # 0.0 Nucleated Red Blood Cells # 0.0 Sodium Level 141 Potassium Level 4.3 Chloride Level 101 Carbon Dioxide Level 30 Anion Gap 10 Blood Urea Nitrogen 31 H Creatinine 0.92 Est Glomerular Filtrat Rate mL/min > 60 Glucose Level 116 Calcium Level 9.7 Magnesium Level 1.8 Total Bilirubin 0.3 Direct Bilirubin 0.00 Indirect Bilirubin 0.3 Aspartate Amino Transf (AST/SGOT) 22 Alanine Aminotransferase (ALT/SGPT) < 6 L Alkaline Phosphatase 79 Total Protein 8.3 H Albumin 3.5 Globulin 4.80 H Albumin/Globulin Ratio 0.72 Valproic Acid (Depakene) Level 102 H Medications Medication Current Medications IV Flush (NS 3 ml) 3 ml PER PROTOCOL IV ; Start 10/06/18 at 09:30 Ondansetron HCl (Zofran Inj) 4 mg Q6H PRN IV NAUSEA/VOMITING; Start 10/06/18 at 09:30 Acetaminophen (Tylenol Tab) 650 mg Q6H PRN PO .PAIN 1-3 OR TEMP Last administered on 10/12/18at 08:27; Admin Dose 650 MG; Start 10/06/18 at 09:30 Acetaminophen/ Hydrocodone Bitart ([place] (5/325)) 1 tab Q6H PRN PO .MOD PAIN 4- 6; Start 10/06/18 at 09:30 Docusate Sodium (Colace) 100 mg Q12H PRN PO .CONSTIPATION; Start 10/06/18 at 09:30 Magnesium Hydroxide (Milk Of Mag) 30 ml DAILY PRN PO .CONSTIPATION; Start 10/06/18 at 09:30 Albuterol/ Ipratropium (Duoneb) 3 ml Q4H RESP THERAPY PRN HHN SHORTNESS OF BREATH Last administered on 3/20/19at 09:46; Admin Dose 3 ML; Start 10/06/18 at 09:30 Nitroglycerin (Nitroglycerin (Sl Tab) 0.4 Mg) 1 tab Q5M PRN SL ANGINA; Start 10/06/18 at 09:30 Bisacodyl (Dulcolax) 10 mg DAILY PRN PO CONSTIPATION; Start 10/06/18 at 09:30 Donepezil HCl (Aricept) 5 mg QHS PO Last administered on 10/22/18 19:53; Admin Dose 5 MG; Start 10/06/18 at 21:00 Lactulose (Enulose) 20 gm TID PRN PO CONSTIPATION; Start 10/06/18 at 09:30 Levothyroxine Sodium (Synthroid) 50 mcg BEFORE BREAKFAST PO Last administered on 10/23/18 06:00; Admin Dose 50 MCG; Start 10/07/18 at 07:00 Mineral Oil (Fleet Mineral Oil Enema) 133 ml DAILY PRN [place] CONSTIPATION; Start 10/06/18 at 09:30 Multivitamins Therapeutic (Theragran) 1 tab DAILY PO Last administered on 10/23/18 08:46; Admin Dose 1 TAB; Start 10/07/18 at 09:00 Aspirin (Aspirin) 81 mg DAILY NGT Last administered on 10/11/18 09:35; Admin Dose 81 MG; Start 10/06/18 at 12:30; Status Hold Atorvastatin Calcium (Lipitor) 40 mg DAILY@21 NGT Last administered on 10/22/18 19:53; Admin Dose 40 MG; Start 10/06/18 at 21:00 Miscellaneous Information (Flu Vaccine Previously Dispensed) FLU VACCINE PREVIOU... NOTE PRN XX NOTE; Start 10/06/18 at 18:00 Amiodarone HCl (Cordarone) 200 mg BID PO Last administered on 10/23/18 08:47; Admin Dose 200 MG; Start 10/09/18 at 21:00 Famotidine (Pepcid) 20 mg DAILY NGT Last administered on 10/23/18 08:46; Admin Dose 20 MG; Start 10/10/18 at 09:00 Polyethylene Glycol (Miralax) 17 gm BID PRN PO constipation; Start 10/10/18 at 22:00 Metoprolol Tartrate (Lopressor) 25 mg BID PO Last administered on 10/23/18 08:46; Admin Dose 25 MG; Start 10/12/18 at 15:00 Metoprolol Tartrate (Lopressor) 5 mg Q4H PRN IV HR>110 Hold SBP<100 Last administered on 10/20/18 11:40; Admin Dose 5 MG; Start 10/12/18 at 15:00 Enoxaparin Sodium (Lovenox) 70 mg DAILY SC Last administered on 10/23/18 08:49; Admin Dose 70 MG; Start 10/14/18 at 09:00 Levetiracetam (Keppra Liquid) 1,000 mg BID GTB Last administered on 10/23/18 08:46; Admin Dose 1,000 MG; Start 10/14/18 at 21:00 Lorazepam (Ativan) 1 mg Q4H PRN IV SEIZURES Last administered on 10/23/18 04:29; Admin Dose 1 MG; Start 10/16/18 at 12:00 Morphine Sulfate (morphine) 1 mg Q4H PRN IV .SEVERE PAIN 7-10 Last administered on 10/22/18 04:15; Admin Dose 1 MG; Start 10/16/18 at 15:45 Epoetin Nile (Epogen (Non Esrd/Non Oncology)) 6,000 units MoWeFr@17 SC Last administered on 10/21/18 18:30; Admin Dose 6,000 UNITS; Start 10/18/18 at 17:00 Furosemide (Lasix) 20 mg DAILY@0600 IV Last administered on 10/23/18 06:00; Admin Dose 20 MG; Start 10/18/18 at 12:30 Quetiapine Fumarate (Seroquel) 12.5 mg QID PRN NGT anxiety/agitation Last administered on 10/23/18 02:30; Admin Dose 12.5 MG; Start 10/18/18 at 14:30 Quetiapine Fumarate (Seroquel) 12.5 mg QHS NGT Last administered on 10/22/18 19:52; Admin Dose 12.5 MG; Start 10/19/18 at 21:00 Hydralazine HCl (Apresoline) 25 mg Q6 NGT Last administered on 10/23/18 06:01; Admin Dose 25 MG; Start 10/20/18 at 12:00 Hydralazine HCl (Apresoline) 5 mg Q8H PRN IV sbp >160; Start 10/20/18 at 12:00 Miscellaneous Information (Pending Santyl Order For Wound Care) This patient martin... PRN PRN XX WOUND CARE; Start 10/21/18 at 07:30 Valproate Sodium (Depakene Liquid Cup) 1,000 mg Q8 GTB Last administered on 10/23/18at 06:00; Admin Dose 1,000 MG; Start 10/22/18 at 22:00 ANGELA MOSQUERA MD Oct 23, 2018 10:53
--- NOTE | 2018-10-23 13:32 | CONS ---
Assessment/Plan Assessment/Plan Hospital Course (Demo Recall) IMP: 1. Nstemi- in setting of renal failure and shock. Downtrended 2.Shock-improved off pressors with actual HTN now 3.Tachycardia-S tach at this time 4.UTI 5.PAF with RVR-now back in SR this AM 6.Renal failure 7.Dyslipidemia 8.Sz d/o 9. Hypothyroid 10. anemia-s/p transfusions 11. Resp failure s/p extubation this am Recc: -ICU -Contineu current BB/hydralazine -Follow rhythm and rate closely -Continue abx's and f/u cx data -Continue statin -now in SR on po amio. Will follow rhythm clsoely -Lovenox as tolerated only given anemia requiring transfusions and should be increased to BID as tolerated given improved relay tester now -follow resp status and volume status closely Consultation Date/Type/Reason Admit Date/Time Oct 06, 2018 at 09:29 Initial Consult Date 10/06/18 Type of Consult Cardiology Reason for Consultation PAF Requesting Provider: MANUEL ALEMAN Date/Time of Note DATE: 10/23/18 TIME: 13:30 Exam/Review of Systems Vital Signs Vitals Vital Signs Date Temp Pulse Resp B/P (MAP) Pulse Ox O2 O2 Flow FiO2 Time Delivery Rate 10/23/18 85 18 96 Nasal 2.0 13:01 Cannula 10/23/18 98.8 175/83 11:09 (113) 10/22/18 28 13:33 Intake and Output 10/22/18 10/22/18 10/23/18 1515:00 23:00 07:00 IntakeIntake Total 1000 ml 800 ml OutputOutput Total 2000 ml 1500 ml BalanceBalance -1000 ml -700 ml Exam Exam Review of Systems: CONSTITUTIONAL: No fevers, chills. PULMONARY: No sob CARDIOVASCULAR: No chest pain/palpitations GASTROINTESTINAL: No nausea/vomiting. GENITOURINARY: No hematuria/dysuria. MUSCULOSKELETAL: No myagias/arthalgias. PSYCHIATRIC: The patient denies depression. NEUROLOGIC: encephalopathic Constitutional: alert Head: normocephalic ENMT: mucosa pink and moist Neck: supple, jvd (9 cm water) Respiratory: diminished breath sounds (at bases/B) Cardiovascular: regular rate and rhythm Gastrointestinal: soft, non-tender Musculoskeletal: muscle tone (normal) Extremities: edema (none) Labs Result Diagram: 10/23/18 0621 10/23/18 0621 Results 24hrs Laboratory Tests Test 10/23/18 06:21 White Blood Count 6.3 Red Blood Count 3.21 L Hemoglobin 9.8 L Hematocrit 30.7 L Mean Corpuscular Volume 95.6 Mean Corpuscular Hemoglobin 30.5 Mean Corpuscular Hemoglobin Concent 31.9 L Red Cell Distribution Width 15.3 H Platelet Count 421 H Mean Platelet Volume 10.9 H Immature Granulocytes % 0.500 H Neutrophils % 67.3 Lymphocytes % 22.7 Monocytes % 8.4 Eosinophils % 0.6 Basophils % 0.5 Nucleated Red Blood Cells % 0.0 Immature Granulocytes # 0.030 Neutrophils # 4.3 Lymphocytes # 1.4 Monocytes # 0.5 Eosinophils # 0.0 Basophils # 0.0 Nucleated Red Blood Cells # 0.0 Sodium Level 141 Potassium Level 4.3 Chloride Level 101 Carbon Dioxide Level 30 Anion Gap 10 Blood Urea Nitrogen 31 H Creatinine 0.92 Est Glomerular Filtrat Rate mL/min > 60 Glucose Level 116 Calcium Level 9.7 Magnesium Level 1.8 Total Bilirubin 0.3 Direct Bilirubin 0.00 Indirect Bilirubin 0.3 Aspartate Amino Transf (AST/SGOT) 22 Alanine Aminotransferase (ALT/SGPT) < 6 L Alkaline Phosphatase 79 Total Protein 8.3 H Albumin 3.5 Globulin 4.80 H Albumin/Globulin Ratio 0.72 Valproic Acid (Depakene) Level 102 H Medications Medications Current Medications IV Flush (NS 3 ml) 3 ml PER PROTOCOL IV ; Start 10/06/18 at 09:30 Ondansetron HCl (Zofran Inj) 4 mg Q6H PRN IV NAUSEA/VOMITING; Start 10/06/18 at 09:30 Acetaminophen (Tylenol Tab) 650 mg Q6H PRN PO .PAIN 1-3 OR TEMP Last administered on 10/12/18at 08:27; Admin Dose 650 MG; Start 10/06/18 at 09:30 Acetaminophen/ Hydrocodone Bitart ([place] (5/325)) 1 tab Q6H PRN PO .MOD PAIN 4- 6; Start 10/06/18 at 09:30 Docusate Sodium (Colace) 100 mg Q12H PRN PO .CONSTIPATION; Start 10/06/18 at 09:30 Magnesium Hydroxide (Milk Of Mag) 30 ml DAILY PRN PO .CONSTIPATION; Start 10/06/18 at 09:30 Albuterol/ Ipratropium (Duoneb) 3 ml Q4H RESP THERAPY PRN HHN SHORTNESS OF BREATH Last administered on 10/23/18 09:46; Admin Dose 3 ML; Start 10/06/18 at 09:30 Nitroglycerin (Nitroglycerin (Sl Tab) 0.4 Mg) 1 tab Q5M PRN SL ANGINA; Start 10/06/18 at 09:30 Bisacodyl (Dulcolax) 10 mg DAILY PRN PO CONSTIPATION; Start 10/06/18 at 09:30 Donepezil HCl (Aricept) 5 mg QHS PO Last administered on 10/22/18 19:53; Admin Dose 5 MG; Start 10/06/18 at 21:00 Lactulose (Enulose) 20 gm TID PRN PO CONSTIPATION; Start 10/06/18 at 09:30 Levothyroxine Sodium (Synthroid) 50 mcg BEFORE BREAKFAST PO Last administered on 10/23/18 06:00; Admin Dose 50 MCG; Start 10/07/18 at 07:00 Mineral Oil (Fleet Mineral Oil Enema) 133 ml DAILY PRN [place] CONSTIPATION; Start 10/06/18 at 09:30 Multivitamins Therapeutic (Theragran) 1 tab DAILY PO Last administered on 10/23/18 08:46; Admin Dose 1 TAB; Start 10/07/18 at 09:00 Aspirin (Aspirin) 81 mg DAILY NGT Last administered on 10/11/18 09:35; Admin Dose 81 MG; Start 10/06/18 at 12:30; Status Hold Atorvastatin Calcium (Lipitor) 40 mg DAILY@21 NGT Last administered on 10/22/18 19:53; Admin Dose 40 MG; Start 10/06/18 at 21:00 Miscellaneous Information (Flu Vaccine Previously Dispensed) FLU VACCINE PREVIOU... NOTE PRN XX NOTE; Start 10/06/18 at 18:00 Amiodarone HCl (Cordarone) 200 mg BID PO Last administered on 10/23/18 08:47; Admin Dose 200 MG; Start 10/09/18 at 21:00 Famotidine (Pepcid) 20 mg DAILY NGT Last administered on 10/23/18 08:46; Admin Dose 20 MG; Start 10/10/18 at 09:00 Polyethylene Glycol (Miralax) 17 gm BID PRN PO constipation; Start 10/10/18 at 22:00 Metoprolol Tartrate (Lopressor) 25 mg BID PO Last administered on 10/23/18 08:46; Admin Dose 25 MG; Start 10/12/18 at 15:00 Metoprolol Tartrate (Lopressor) 5 mg Q4H PRN IV HR>110 Hold SBP<100 Last admin istered on 10/20/18 11:40; Admin Dose 5 MG; Start 10/12/18 at 15:00 Enoxaparin Sodium (Lovenox) 70 mg DAILY SC Last administered on 10/23/18 08:49; Admin Dose 70 MG; Start 10/14/18 at 09:00 Levetiracetam (Keppra Liquid) 1,000 mg BID GTB Last administered on 10/23/18 08:46; Admin Dose 1,000 MG; Start 10/14/18 at 21:00 Lorazepam (Ativan) 1 mg Q4H PRN IV SEIZURES Last administered on 10/23/18 0 4:29; Admin Dose 1 MG; Start 10/16/18 at 12:00 Morphine Sulfate (morphine) 1 mg Q4H PRN IV .SEVERE PAIN 7-10 Last administered on 10/22/18 04:15; Admin Dose 1 MG; Start 10/16/18 at 15:45 Epoetin Nile (Epogen (Non Esrd/Non Oncology)) 6,000 units MoWeFr@17 SC Last administered on 10/21/18 18:30; Admin Dose 6,000 UNITS; Start 10/18/18 at 17:00 Furosemide (Lasix) 20 mg DAILY@0600 IV Last administered on 10/23/18 06:00; Admin Dose 20 MG; Start 10/18/18 at 12:30 Quetiapine Fumarate (Seroquel) 12.5 mg QID PRN NGT anxiety/agitation Last administered on 10/23/18 12:08; Admin Dose 12.5 MG; Start 10/18/18 at 14:30 Quetiapine Fumarate (Seroquel) 12.5 mg QHS NGT Last administered on 3/19/19at 19:52; Admin Dose 12.5 MG; Start 10/19/18 at 21:00 Hydralazine HCl (Apresoline) 25 mg Q6 NGT Last administered on 10/23/18at 11:59; Admin Dose 25 MG; Start 10/20/18 at 12:00 Hydralazine HCl (Apresoline) 5 mg Q8H PRN IV sbp >160; Start 10/20/18 at 12:00 Misc[facility] This patient martin... PRN PRN XX WOUND CARE; Start 10/21/18 at 07:30 Valproate Sodium (Depakene Liquid Cup) 1,000 mg Q8 GTB Last administered on 10/23/18at 06:00; Admin Dose 1,000 MG; Start 10/22/18 at 22:00 ANGELA CARY Oct 23, 2018 13:32
--- NOTE | 2018-10-23 14:12 | CONS ---
Assessment/Plan Assessment/Plan Hospital Course 67 F c/ dementia, epilepsy, and other comorbidities, who presents for management of cardiopulmonary Sx. She was noted to have a generalized convulsion on 10/08, for which neurology is consulted... Certainly her acute illness is lowering her seizure threshold.. CTH is without acute intracranial pathology EEG is notable for severe left hemispheric on diffuse slowing 10/12: breakthrough seizure --> ativan rescue Repeat EEG, 10/14, is without evidence of nonconvulsive status. Depakote level on 10/22 is 105. P: Cont maintenance depakote 1g tid for now. Repeat level in am. Cont maintenance Keppra 1000mg bid for now Ativan iv prn prolonged seizure or cluster OK to continue asa for primary stroke prevention daily given her afib Cont low dose seroquel prn agitation Continued medical management per primary Will follow clinically Consultation Date/Type/Reason Admit Date/Time Oct 06, 2018 at 09:29 Type of Consult Neurology Reason for Consultation seizure Requesting Provider: MANUEL ALEMAN Date/Time of Note DATE: 10/23/18 TIME: 14:11 24 HR Interval Summary Free Text/Dictation Continues acute care. Exam Vital Signs Vitals Vital Signs Date Temp Pulse Resp B/P (MAP) Pulse Ox O2 O2 Flow FiO2 Time Delivery Rate 10/23/18 85 18 96 Nasal 2.0 13:01 Cannula 10/23/18 98.8 175/83 11:09 (113) 10/22/18 28 13:33 Intake and Output 10/22/18 10/22/18 10/23/18 1515:00 23:00 07:00 IntakeIntake Total 1000 ml 800 ml OutputOutput Total 2000 ml 1500 ml BalanceBalance -1000 ml -700 ml Exam PE: Gen Appearance: Calm, NAD HEENT: Normocephalic Cardiovascular: Regular rate Abdomen: Soft Extremities: Dry NE: The patient was asleep, though arousable to voice. Incomprehensibly verbal. Able to track. Unable to follow commands. Cranial nerve examination was limited by mental status. Pupils were equal and reactive to light. There was no afferent pupillary defect. Funduscopic examination was limited. Face was grossly symmetric, w/ present corneal and cough reflexes. Tone was slightly increased in her LUE. Muscle bulk was normal. No fasciculations were noted. The patient withdrew all extremities. Coordination and gait testing was limited by mental status. Arm and leg reflexes were symmetric. Beck's sign was absent. Plantar responses were flexor. CHEYENNE JEAN NP Oct 23, 2018 14:11
[2018-10-23] MEDS: EPOETIN 3000 UNITS/ML (NON ESRD/NON ONCOLOGY) SC SCH (17:06)
[2018-10-23] MEDS: ATORVASTATIN 40 MG TAB NGT SCH (20:39)
[2018-10-23] MEDS: DONEPEZIL 5 MG TAB PO SCH (20:40)
[2018-10-23] MEDS: QUETIAPINE 25 MG TAB NGT SCH (20:40)
[2018-10-23] MEDS: ENOXAPARIN 80 MG/0.8 ML SYG SC SCH (20:43)
[2018-10-24] VITALS (10 sets, daily range): BP systolic 92–158; BP diastolic 51–89; PULSE 78–103; RESP 18–20
[2018-10-24] MEDS: FUROSEMIDE 20 MG INJ IV SCH (05:36)
[2018-10-24] MEDS: LEVOTHYROXINE 50 MCG TAB PO SCH (05:37)
[2018-10-24] MEDS: VALPROIC ACID LIQUID CUP 250 MG/5 ML CUP GTB SCH ×3 (06:07→22:52)
--- NOTE | 2018-10-24 07:13 | CONS ---
Assessment/Plan Assessment/Plan Assessment/Plan (Daily) Waiting for recommendation for bioethics for consultation to change CODE STATUS. Consultation Date/Type/Reason Admit Date/Time Oct 06, 2018 at 09:29 Initial Consult Date 10/06/18 Requesting Provider: MANUEL ALEMAN Date/Time of Note DATE: 10/24/18 TIME: 07:13 Exam/Review of Systems Exam Vitals Vital Signs Date Temp Pulse Resp B/P (MAP) Pulse Ox O2 O2 Flow FiO2 Time Delivery Rate 10/24/18 98.8 84 20 92/51 (65) 98 Nasal 3.0 04:00 Cannula 10/22/18 28 13:33 Intake and Output 10/23/18 10/23/18 10/24/18 1515:00 23:00 07:00 IntakeIntake Total 210 ml 750 ml 850 ml OutputOutput Total 2600 ml 900 ml BalanceBalance 210 ml -1850 ml -50 ml Results Result Diagram: 10/23/18 0621 10/23/18 0621 Results 24hrs Laboratory Tests Test 10/24/18 05:52 Valproic Acid (Depakene) Level 79 Medications Medication Current Medications IV Flush (NS 3 ml) 3 ml PER PROTOCOL IV ; Start 10/06/18 at 09:30 Ondansetron HCl (Zofran Inj) 4 mg Q6H PRN IV NAUSEA/VOMITING; Start 10/06/18 at 09:30 Acetaminophen (Tylenol Tab) 650 mg Q6H PRN PO .PAIN 1-3 OR TEMP Last administered on 10/12/18at 08:27; Admin Dose 650 MG; Start 10/06/18 at 09:30 Acetaminophen/ Hydrocodone Bitart ([place] (5/325)) 1 tab Q6H PRN PO .MOD PAIN 4- 6; Start 10/06/18 at 09:30 Docusate Sodium (Colace) 100 mg Q12H PRN PO .CONSTIPATION; Start 10/06/18 at 09:30 Magnesium Hydroxide (Milk Of Mag) 30 ml DAILY PRN PO .CONSTIPATION; Start 10/06/18 at 09:30 Albuterol/ Ipratropium (Duoneb) 3 ml Q4H RESP THERAPY PRN HHN SHORTNESS OF BREATH Last administered on 10/23/18at 16:18; Admin Dose 3 ML; Start 10/06/18 at 09:30 Nitroglycerin (Nitroglycerin (Sl Tab) 0.4 Mg) 1 tab Q5M PRN SL ANGINA; Start 10/06/18 at 09:30 Bisacodyl (Dulcolax) 10 mg DAILY PRN PO CONSTIPATION; Start 10/06/18 at 09:30 Donepezil HCl (Aricept) 5 mg QHS PO Last administered on 10/23/18 20:40; Admin Dose 5 MG; Start 10/06/18 at 21:00 Lactulose (Enulose) 20 gm TID PRN PO CONSTIPATION; Start 10/06/18 at 09:30 Levothyroxine Sodium (Synthroid) 50 mcg BEFORE BREAKFAST PO Last administered on 10/24/18 05:37; Admin Dose 50 MCG; Start 10/07/18 at 07:00 Mineral Oil (Fleet Mineral Oil Enema) 133 ml DAILY PRN [place] CONSTIPATION; Start 10/06/18 at 09:30 Multivitamins Therapeutic (Theragran) 1 tab DAILY PO Last administered on 10/23/18 08:46; Admin Dose 1 TAB; Start 10/07/18 at 09:00 Aspirin (Aspirin) 81 mg DAILY NGT Last administered on 10/11/18 09:35; Admin Dose 81 MG; Start 10/06/18 at 12:30; Status Hold Atorvastatin Calcium (Lipitor) 40 mg DAILY@21 NGT Last administered on 10/23/18at 20:39; Admin Dose 40 MG; Start 10/06/18 at 21:00 Miscellaneous Information (Flu Vaccine Previously Dispensed) FLU VACCINE PREVIOU... NOTE PRN XX NOTE; Start 10/06/18 at 18:00 Amiodarone HCl (Cordarone) 200 mg BID PO Last administered on 10/23/18 20:40; Admin Dose 200 MG; Start 10/09/18 at 21:00 Famotidine (Pepcid) 20 mg DAILY NGT Last administered on 10/23/18 08:46; Admin Dose 20 MG; Start 10/10/18 at 09:00 Polyethylene Glycol (Miralax) 17 gm BID PRN PO constipation; Start 10/10/18 at 22:00 Metoprolol Tartrate (Lopressor) 25 mg BID PO Last administered on 10/23/18at 20:45; Admin Dose 25 MG; Start 10/12/18 at 15:00 Metoprolol Tartrate (Lopressor) 5 mg Q4H PRN IV HR>110 Hold SBP<100 Last administered on 10/20/18 11:40; Admin Dose 5 MG; Start 10/12/18 at 15:00 Levetiracetam (Keppra Liquid) 1,000 mg BID GTB Last administered on 10/23/18 20:39; Admin Dose 1,000 MG; Start 10/14/18 at 21:00 Lorazepam (Ativan) 1 mg Q4H PRN IV SEIZURES Last administered on 10/23/18 04:29; Admin Dose 1 MG; Start 10/16/18 at 12:00 Morphine Sulfate (morphine) 1 mg Q4H PRN IV .SEVERE PAIN 7-10 Last administered on 10/22/18 04:15; Admin Dose 1 MG; Start 10/16/18 at 15:45 Epoetin Nile (Epogen (Non Esrd/Non Oncology)) 6,000 units MoWeFr@17 SC Last administered on 10/23/18 17:06; Admin Dose 6,000 UNITS; Start 10/18/18 at 17:00 Furosemide (Lasix) 20 mg DAILY@0600 IV Last administered on 10/23/18 06:00; Admin Dose 20 MG; Start 10/18/18 at 12:30 Quetiapine Fumarate (Seroquel) 12.5 mg QID PRN NGT anxiety/agitation Last administered on 10/23/18 12:08; Admin Dose 12.5 MG; Start 10/18/18 at 14:30 Quetiapine Fumarate (Seroquel) 12.5 mg QHS NGT Last administered on 10/23/18 20:40; Admin Dose 12.5 MG; Start 10/19/18 at 21:00 Hydralazine HCl (Apresoline) 25 mg Q6 NGT Last administered on 10/24/18 00:13; Admin Dose 25 MG; Start 10/20/18 at 12:00 Hydralazine HCl (Apresoline) 5 mg Q8H PRN IV sbp >160; Start 10/20/18 at 12:00 Miscellaneous Information (Pending [facility] Order For Wound Care) This patient martin... PRN PRN XX WOUND CARE; Start 10/21/18 at 07:30 Valproate Sodium (Depakene Liquid Cup) 1,000 mg Q8 GTB Last administered on 10/24/18at 06:07; Admin Dose 1,000 MG; Start 10/22/18 at 22:00 Enoxaparin Sodium (Lovenox) 70 mg BID SC Last administered on 10/23/18at 20:43; Admin Dose 70 MG; Start 10/23/18 at 21:00 SHILPA DAVIS Oct 24, 2018 07:13
[2018-10-24] MEDS: LEVETIRACETAM (100 MG/ML) 5ML CUP GTB SCH ×2 (09:29→20:08)
[2018-10-24] MEDS: MULTIVITAMINS THERAPEUTIC TAB PO SCH (09:29)
[2018-10-24] MEDS: METOPROLOL 25 MG TAB PO SCH ×2 (09:30→20:09)
[2018-10-24] MEDS: AMIODARONE 200 MG TAB PO SCH ×2 (09:30→20:09)
[2018-10-24] MEDS: BALSAM PERU/CASTOR OIL 60 GM TUBE TOP SCH (09:30)
[2018-10-24] MEDS: FAMOTIDINE 20 MG TAB NGT SCH (09:30)
[2018-10-24] MEDS: ENOXAPARIN 80 MG/0.8 ML SYG SC SCH ×2 (09:40→20:18)
--- NOTE | 2018-10-24 11:17 | CONS ---
Assessment/Plan Assessment/Plan Assessment/Plan (Daily) Assessment and recommendations; 1. Patient status post respiratory failure due to severe sepsis due to UTI. Off systemic antibiotics now. 2. Dementia. 3. Dysphagia secondary to #2 above. Maintained on nasogastric tube feeding. 4. Paroxysmal atrial fibrillation, currently in sinus rhythm. 5. Stable seizure disorder. 6. Anemia. 7. Acute renal insufficiency with normalization of renal function. Continue current supportive care. Patient likely will need to have a G-tube placed. Consultation Date/Type/Reason Admit Date/Time Oct 06, 2018 at 09:29 Initial Consult Date 10/06/18 Type of Consult Pulmonary/critical care Patient's condition remains critical. Still requiring invasive mechanical ventilation. Patient however has improved hemodynamically and is off pressor support. General exam; elderly female, orally intubated, exhibiting tremor-like activity. Unresponsive. Requesting Provider: MANUEL ALEMAN Date/Time of Note DATE: 10/24/18 TIME: 11:14 24 HR Interval Summary Free Text/Dictation Patient's condition remains overall stable. Has been switched over to nasal cannula. General exam; elderly female, awake, currently no distress. Patient remains unresponsive to any commands. Exam/Review of Systems Exam Vitals Vital Signs Date Temp Pulse Resp B/P (MAP) Pulse Ox O2 O2 Flow FiO2 Time Delivery Rate 10/24/18 103 08:33 10/24/18 Nasal 2.0 08:27 Cannula 10/24/18 98.0 18 149/89 98 07:17 (109) 10/22/18 28 13:33 Intake and Output 10/23/18 10/23/18 10/24/18 1515:00 23:00 07:00 IntakeIntake Total 210 ml 750 ml 850 ml OutputOutput Total 2600 ml 900 ml BalanceBalance 210 ml -1850 ml -50 ml Exam H EENT exam; supple neck, no JVD. No lymphadenopathy. Midline trachea. No thyromegaly. Patient is edentulous. Nasal gastric tube in place. No neck masses. Chest exam; diminished but clear breath sounds. S1-S2 audible, no murmurs. Regular rhythm. Abdomen exam; soft, nondistended. No organomegaly. Bowel sounds audible. Extremity exam; no peripheral edema. [employer] exam; patient remains awake but noncommunicative. Results Result Diagram: 10/23/1862010/23/18620 Results 24hrs Laboratory Tests Test 10/24/18 05:52 Valproic Acid (Depakene) Level 79 Medications Medication Current Medications IV Flush (NS 3 ml) 3 ml PER PROTOCOL IV ; Start 10/06/18 at 09:30 Ondansetron HCl (Zofran Inj) 4 mg Q6H PRN IV NAUSEA/VOMITING; Start 10/06/18 at 09:30 Acetaminophen (Tylenol Tab) 650 mg Q6H PRN PO .PAIN 1-3 OR TEMP Last administered on 10/12/18at 08:27; Admin Dose 650 MG; Start 10/06/18 at 09:30 Acetaminophen/ Hydrocodone Bitart ([place] (5/325)) 1 tab Q6H PRN PO .MOD PAIN 4- 6; Start 10/06/18 at 09:30 Docusate Sodium (Colace) 100 mg Q12H PRN PO .CONSTIPATION; Start 10/06/18 at 09:30 Magnesium Hydroxide (Milk Of Mag) 30 ml DAILY PRN PO .CONSTIPATION; Start at 09:30 Albuterol/ Ipratropium (Duoneb) 3 ml Q4H RESP THERAPY PRN HHN SHORTNESS OF BREATH Last administered on 10/23/18at 16:18; Admin Dose 3 ML; Start 10/06/18 at 09:30 Nitroglycerin (Nitroglycerin (Sl Tab) 0.4 Mg) 1 tab Q5M PRN SL ANGINA; Start 10/06/18 at 09:30 Bisacodyl (Dulcolax) 10 mg DAILY PRN PO CONSTIPATION; Start 10/06/18 at 09:30 Donepezil HCl (Aricept) 5 mg QHS PO Last administered on 10/23/18at 20:40; Admin Dose 5 MG; Start 10/06/18 at 21:00 Lactulose (Enulose) 20 gm TID PRN PO CONSTIPATION; Start 10/06/18 at 09:30 Levothyroxine Sodium (Synthroid) 50 mcg BEFORE BREAKFAST PO Last administered on 10/24/18at 05:37; Admin Dose 50 MCG; Start 10/07/18 at 07:00 Mineral Oil (Fleet Mineral Oil Enema) 133 ml DAILY PRN [place] CONSTIPATION; Start 10/06/18 at 09:30 Multivitamins Therapeutic (Theragran) 1 tab DAILY PO Last administered on 10/24/18 09:29; Admin Dose 1 TAB; Start 10/07/18 at 09:00 Aspirin (Aspirin) 81 mg DAILY NGT Last administered on 10/11/18 09:35; Admin Dose 81 MG; Start 10/06/18 at 12:30; Status Hold Atorvastatin Calcium (Lipitor) 40 mg DAILY@21 NGT Last administered on 10/23/18 20:39; Admin Dose 40 MG; Start 10/06/18 at 21:00 Miscellaneous Information (Flu Vaccine Previously Dispensed) FLU VACCINE PREVIOU... NOTE PRN XX NOTE; Start 10/06/18 at 18:00 Amiodarone HCl (Cordarone) 200 mg BID PO Last administered on 10/24/18 09:30; Admin Dose 200 MG; Start 10/09/18 at 21:00 Famotidine (Pepcid) 20 mg DAILY NGT Last administered on 10/24/18 09:30; Admin Dose 20 MG; Start 10/10/18 at 09:00 Polyethylene Glycol (Miralax) 17 gm BID PRN PO constipation; Start 10/10/18 at 22:00 Metoprolol Tartrate (Lopressor) 25 mg BID PO Last administered on 10/24/18 09:30; Admin Dose 25 MG; Start 10/12/18 at 15:00 Metoprolol Tartrate (Lopressor) 5 mg Q4H PRN IV HR>110 Hold SBP<100 Last administered on 10/20/18 11:40; Admin Dose 5 MG; Start 10/12/18 at 15:00 Levetiracetam (Keppra Liquid) 1,000 mg BID GTB Last administered on 10/24/18 09:29; Admin Dose 1,000 MG; Start 10/14/18 at 21:00 Lorazepam (Ativan) 1 mg Q4H PRN IV SEIZURES Last administered on 10/23/18 04:2 9; Admin Dose 1 MG; Start 10/16/18 at 12:00 Morphine Sulfate (morphine) 1 mg Q4H PRN IV .SEVERE PAIN 7-10 Last administered on 10/22/18 04:15; Admin Dose 1 MG; Start 10/16/18 at 15:45 Epoetin Nile (Epogen (Non Esrd/Non Oncology)) 6,000 units MoWeFr@17 SC Last administered on 10/23/18at 17:06; Admin Dose 6,000 UNITS; Start 10/18/18 at 17:00 Furosemide (Lasix) 20 mg DAILY@0600 IV Last administered on 10/23/18 06:00; Admin Dose 20 MG; Start 10/18/18 at 12:30 Quetiapine Fumarate (Seroquel) 12.5 mg QID PRN NGT anxiety/agitation Last administered on 10/23/18at 12:08; Admin Dose 12.5 MG; Start 10/18/18 at 14:30 Quetiapine Fumarate (Seroquel) 12.5 mg QHS NGT Last administered on 10/23/18at 20:40; Admin Dose 12.5 MG; Start 10/19/18 at 21:00 Hydralazine HCl (Apresoline) 25 mg Q6 NGT Last administered on 10/24/18at 00:13; Admin Dose 25 MG; Start 10/20/18 at 12:00 Hydralazine HCl (Apresoline) 5 mg Q8H PRN IV sbp >160; Start 10/20/18 at 12:00 Miscellaneous Information (Pending [facility] Order For Wound Care) This patient martin... PRN PRN XX WOUND CARE; Start 10/21/18 at 07:30 Valproate Sodium (Depakene Liquid Cup) 1,000 mg Q8 GTB Last administered on 10/24/18 06:07; Admin Dose 1,000 MG; Start 10/22/18 at 22:00 Enoxaparin Sodium (Lovenox) 70 mg BID SC Last administered on 10/24/18at 09:40; Admin Dose 70 MG; Start 10/23/18 at 21:00 YANETH CASTELLANOS Oct 24, 2018 11:16
--- NOTE | 2018-10-24 12:16 | CONS ---
Assessment/Plan Assessment/Plan Assessment/Plan (Daily) 1. Non Oliguric Acute kidney injury due to ATN from septic shock - Improving 2. Septic shock due to UTI 3. acute UTI with Urine Cx growing E.Coli 4. Acute hypoxic respiratory failure intubated on ventilator - s/p Extubation on 10/18/18 5. H/o HTN 6 H/o HL 7. H/o Hypothyroidism 8. E.Coli bacteremia Plan: Na 141, BUN/Cr 31/0.92- Hb 9.8 on epogen 6000 units MWF for anemia - no labs today to review yet adequate urine output still intermittently confused, Bp stable s/p Bioethics meeting today will follow up Consultation Date/Type/Reason Admit Date/Time Oct 06, 2018 at 09:29 Initial Consult Date 10/06/18 Type of Consult NEPHROLOGY Requesting Provider: MANUEL ALEMAN Date/Time of Note DATE: 10/24/18 TIME: 12:16 Exam/Review of Systems Exam Vitals Vital Signs Date Temp Pulse Resp B/P (MAP) Pulse Ox O2 O2 Flow FiO2 Time Delivery Rate 10/24/18 98.6 78 18 158/87 97 Nasal 11:22 (110) Cannula 10/24/18 2.0 08:27 10/22/18 28 13:33 Intake and Output 10/23/18 10/23/18 10/24/18 1515:00 23:00 07:00 IntakeIntake Total 210 ml 750 ml 850 ml OutputOutput Total 2600 ml 900 ml BalanceBalance 210 ml -1850 ml -50 ml Exam Constitutional: alert, other (Confused, lethargic ) Respiratory: clear to auscultation, normal air movement, diminished breath sounds Cardiovascular: regular rate and rhythm, nl pulses Gastrointestinal: soft, non-tender Musculoskeletal: nl extremities to inspection, swelling Neurological: other ( confused, uncooperative for neuro exam ) Results Result Diagram: 10/23/18 0621 10/23/18 0621 Results 24hrs Laboratory Tests Test 10/24/18 05:52 Valproic Acid (Depakene) Level 79 Medications Medication Current Medications IV Flush (NS 3 ml) 3 ml PER PROTOCOL IV ; Start 10/06/18 at 09:30 Ondansetron HCl (Zofran Inj) 4 mg Q6H PRN IV NAUSEA/VOMITING; Start 10/06/18 at 09:30 Acetaminophen (Tylenol Tab) 650 mg Q6H PRN PO .PAIN 1-3 OR TEMP Last administered on 10/12/18at 08:27; Admin Dose 650 MG; Start 10/06/18 at 09:30 Acetaminophen/ Hydrocodone Bitart ([place] (5/325)) 1 tab Q6H PRN PO .MOD PAIN 4- 6; Start 10/06/18 at 09:30 Docusate Sodium (Colace) 100 mg Q12H PRN PO .CONSTIPATION; Start 10/06/18 at 09:30 Magnesium Hydroxide (Milk Of Mag) 30 ml DAILY PRN PO .CONSTIPATION; Start 10/06/18 at 09:30 Albuterol/ Ipratropium (Duoneb) 3 ml Q4H RESP THERAPY PRN HHN SHORTNESS OF BREATH Last administered on 10/23/18at 16:18; Admin Dose 3 ML; Start 10/06/18 at 09:30 Nitroglycerin (Nitroglycerin (Sl Tab) 0.4 Mg) 1 tab Q5M PRN SL ANGINA; Start 10/06/18 at 09:30 Bisacodyl (Dulcolax) 10 mg DAILY PRN PO CONSTIPATION; Start 10/06/18 at 09:30 Donepezil HCl (Aricept) 5 mg QHS PO Last administered on 10/23/18at 20:40; Admin Dose 5 MG; Start 10/06/18 at 21:00 Lactulose (Enulose) 20 gm TID PRN PO CONSTIPATION; Start 10/06/18 at 09:30 Levothyroxine Sodium (Synthroid) 50 mcg BEFORE BREAKFAST PO Last administered on 10/24/18at 05:37; Admin Dose 50 MCG; Start 10/07/18 at 07:00 Mineral Oil (Fleet Mineral Oil Enema) 133 ml DAILY PRN [place] CONSTIPATION; Start 10/06/18 at 09:30 Multivitamins Therapeutic (Theragran) 1 tab DAILY PO Last administered on 10/24/18at 09:29; Admin Dose 1 TAB; Start 10/07/18 at 09:00 Aspirin (Aspirin) 81 mg DAILY NGT Last administered on 10/11/18at 09:35; Admin Dose 81 MG; Start 10/06/18 at 12:30; Status Hold Atorvastatin Calcium (Lipitor) 40 mg DAILY@21 NGT Last administered on 10/23/18 20:39; Admin Dose 40 MG; Start 10/06/18 at 21:00 Miscellaneous Information (Flu Vaccine Previously Dispensed) FLU VACCINE PREVIOU... NOTE PRN XX NOTE; Start 10/06/18 at 18:00 Amiodarone HCl (Cordarone) 200 mg BID PO Last administered on 10/24/18 09:30; Admin Dose 200 MG; Start 10/09/18 at 21:00 Famotidine (Pepcid) 20 mg DAILY NGT Last administered on 10/24/18 09:30; Admin Dose 20 MG; Start 10/10/18 at 09:00 Polyethylene Glycol (Miralax) 17 gm BID PRN PO constipation; Start 10/10/18 at 22:00 Metoprolol Tartrate (Lopressor) 25 mg BID PO Last administered on 10/24/18 09:30; Admin Dose 25 MG; Start 10/12/18 at 15:00 Metoprolol Tartrate (Lopressor) 5 mg Q4H PRN IV HR>110 Hold SBP<100 Last administered on 10/20/18 11:40; Admin Dose 5 MG; Start 10/12/18 at 15:00 Levetiracetam (Keppra Liquid) 1,000 mg BID GTB Last administered on 10/24/18 09:29; Admin Dose 1,000 MG; Start 10/14/18 at 21:00 Lorazepam (Ativan) 1 mg Q4H PRN IV SEIZURES Last administered on 10/23/18 04:29; Admin Dose 1 MG; Start 10/16/18 at 12:00 Morphine Sulfate (morphine) 1 mg Q4H PRN IV .SEVERE PAIN 7-10 Last administered on 10/22/18 04:15; Admin Dose 1 MG; Start 10/16/18 at 15:45 Epoetin Nile (Epogen (Non Esrd/Non Oncology)) 6,000 units MoWeFr@17 SC Last administered on 10/23/18 17:06; Admin Dose 6,000 UNITS; Start 10/18/18 at 17:00 Furosemide (Lasix) 20 mg DAILY@0600 IV Last administered on 10/23/18 06:00; Admin Dose 20 MG; Start 10/18/18 at 12:30 Quetiapine Fumarate (Seroquel) 12.5 mg QID PRN NGT anxiety/agitation Last administered on 10/23/18at 12:08; Admin Dose 12.5 MG; Start 10/18/18 at 14:30 Quetiapine Fumarate (Seroquel) 12.5 mg QHS NGT Last administered on 10/23/18at 20:40; Admin Dose 12.5 MG; Start 10/19/18 at 21:00 Hydralazine HCl (Apresoline) 25 mg Q6 NGT Last administered on 10/24/18at 00:13; Admin Dose 25 MG; Start 10/20/18 at 12:00 Hydralazine HCl (Apresoline) 5 mg Q8H PRN IV sbp >160; Start 10/20/18 at 12:00 Miscellaneous Information (Pending [facility] Order For Wound Care) This patient martin... PRN PRN XX WOUND CARE; Start 10/21/18 at 07:30 Valproate Sodium (Depakene Liquid Cup) 1,000 mg Q8 GTB Last administered on 10/24/18at 06:07; Admin Dose 1,000 MG; Start 10/22/18 at 22:00 Enoxaparin Sodium (Lovenox) 70 mg BID SC Last administered on 10/24/18at 09:40; Admin Dose 70 MG; Start 10/23/18 at 21:00 VALARIE BENNETT MD Oct 24, 2018 12:16
--- NOTE | 2018-10-24 13:27 | CONS ---
Assessment/Plan Assessment/Plan Hospital Course (Demo Recall) No fevers overnight looks comfortable, off antibiotics Allergy: Penicillin, clindamycin Physical examination: Well-developed chronically ill-appearing elderly woman. The patient is in no distress. Head atraumatic normocephalic. Neck is supple. Chest rise symmetrical, breath sounds diminished bases. Heart: S1-S2, tachycardic, irregular. Abdomen soft bowel sounds hypoactive. Extremities mottled cyanotic Assessment: 1. S/p sepsis 2. S/p E coli bacteremia secondary to urinary tract infection 3. Acute hypoxemic respiratory failure===> extubated 4. S/p Healthcare associated pneumonia, possibly aspiration 4. S/p UMBERTO 5. Non-ST elevation OR 6. Atrial fibrillation status post RVR 7. Seizures 8. Encephalopathy Plan: Patient remains unchanged, off antibiotics, continue aspiration precautions, reculture as needed Consultation Date/Type/Reason Admit Date/Time Oct 06, 2018 at 09:29 Initial Consult Date 10/06/18 Type of Consult id Requesting Provider: MANUEL ALEMAN Date/Time of Note DATE: 10/24/18 TIME: 13:26 Exam/Review of Systems Exam Vitals Vital Signs Date Temp Pulse Resp B/P (MAP) Pulse Ox O2 O2 Flow FiO2 Time Delivery Rate 10/24/18 90 6.0 13:20 10/24/18 99 12:01 10/24/18 98.6 18 158/87 Nasal 11:22 (110) Cannula 10/22/18 28 13:33 Intake and Output 10/23/18 10/23/18 10/24/18 1515:00 23:00 07:00 IntakeIntake Total 210 ml 750 ml 850 ml OutputOutput Total 2600 ml 900 ml BalanceBalance 210 ml -1850 ml -50 ml Results Result Diagram: 10/23/18 0621 10/23/18 0621 Results 24hrs Laboratory Tests Test 10/24/18 05:52 Valproic Acid (Depakene) Level 79 Medications Medication Current Medications IV Flush (NS 3 ml) 3 ml PER PROTOCOL IV ; Start 10/06/18 at 09:30 Ondansetron HCl (Zofran Inj) 4 mg Q6H PRN IV NAUSEA/VOMITING; Start 10/06/18 at 09:30 Acetaminophen (Tylenol Tab) 650 mg Q6H PRN PO .PAIN 1-3 OR TEMP Last administered on 10/12/18 08:27; Admin Dose 650 MG; Start 10/06/18 at 09:30 Acetaminophen/ Hydrocodone Bitart ([place] (5/325)) 1 tab Q6H PRN PO .MOD PAIN 4- 6; Start 10/06/18 at 09:30 Docusate Sodium (Colace) 100 mg Q12H PRN PO .CONSTIPATION; Start 10/06/18 at 09:30 Magnesium Hydroxide (Milk Of Mag) 30 ml DAILY PRN PO .CONSTIPATION; Start 10/06/18 at 09:30 Albuterol/ Ipratropium (Duoneb) 3 ml Q4H RESP THERAPY PRN HHN SHORTNESS OF BREATH Last administered on 10/23/18at 16:18; Admin Dose 3 ML; Start 10/06/18 at 09:30 Nitroglycerin (Nitroglycerin (Sl Tab) 0.4 Mg) 1 tab Q5M PRN SL ANGINA; Start 10/06/18 at 09:30 Bisacodyl (Dulcolax) 10 mg DAILY PRN PO CONSTIPATION; Start 10/06/18 at 09:30 Donepezil HCl (Aricept) 5 mg QHS PO Last administered on 10/23/18at 20:40; Admin Dose 5 MG; Start 10/06/18 at 21:00 Lactulose (Enulose) 20 gm TID PRN PO CONSTIPATION; Start 10/06/18 at 09:30 Levothyroxine Sodium (Synthroid) 50 mcg BEFORE BREAKFAST PO Last administered on 10/24/18at 05:37; Admin Dose 50 MCG; Start 10/07/18 at 07:00 Mineral Oil (Fleet Mineral Oil Enema) 133 ml DAILY PRN [place] CONSTIPATION; Start 10/06/18 at 09:30 Multivitamins Therapeutic (Theragran) 1 tab DAILY PO Last administered on 10/24/18at 09:29; Admin Dose 1 TAB; Start 10/07/18 at 09:00 Aspirin (Aspirin) 81 mg DAILY NGT Last administered on 10/11/18 09:35; Admin Dose 81 MG; Start 10/06/18 at 12:30; Status Hold Atorvastatin Calcium (Lipitor) 40 mg DAILY@21 NGT Last administered on 10/23/18at 20:39; Admin Dose 40 MG; Start 10/06/18 at 21:00 Miscellaneous Information (Flu Vaccine Previously Dispensed) FLU VACCINE PREVIOU... NOTE PRN XX NOTE; Start 10/06/18 at 18:00 Amiodarone HCl (Cordarone) 200 mg BID PO Last administered on 10/24/18 09:30; Admin Dose 200 MG; Start 10/09/18 at 21:00 Famotidine (Pepcid) 20 mg DAILY NGT Last administered on 10/24/18 09:30; Admin Dose 20 MG; Start 10/10/18 at 09:00 Polyethylene Glycol (Miralax) 17 gm BID PRN PO constipation; Start 10/10/18 at 22:00 Metoprolol Tartrate (Lopressor) 25 mg BID PO Last administered on 10/24/18 09:30; Admin Dose 25 MG; Start 10/12/18 at 15:00 Metoprolol Tartrate (Lopressor) 5 mg Q4H PRN IV HR>110 Hold SBP<100 Last administered on 10/20/18 11:40; Admin Dose 5 MG; Start 10/12/18 at 15:00 Levetiracetam (Keppra Liquid) 1,000 mg BID GTB Last administered on 10/24/18 09:29; Admin Dose 1,000 MG; Start 10/14/18 at 21:00 Lorazepam (Ativan) 1 mg Q4H PRN IV SEIZURES Last administered on 10/23/18 04:29; Admin Dose 1 MG; Start 10/16/18 at 12:00 Morphine Sulfate (morphine) 1 mg Q4H PRN IV .SEVERE PAIN 7-10 Last administered on 10/22/18 04:15; Admin Dose 1 MG; Start 10/16/18 at 15:45 Epoetin Nile (Epogen (Non Esrd/Non Oncology)) 6,000 units MoWeFr@17 SC Last administered on 10/23/18 17:06; Admin Dose 6,000 UNITS; Start 10/18/18 at 17:00 Furosemide (Lasix) 20 mg DAILY@0600 IV Last administered on 10/23/18 06:00; Admin Dose 20 MG; Start 10/18/18 at 12:30 Quetiapine Fumarate (Seroquel) 12.5 mg QID PRN NGT anxiety/agitation Last administered on 10/23/18 12:08; Admin Dose 12.5 MG; Start 10/18/18 at 14:30 Quetiapine Fumarate (Seroquel) 12.5 mg QHS NGT Last administered on 10/23/18at 20:40; Admin Dose 12.5 MG; Start 10/19/18 at 21:00 Hydralazine HCl (Apresoline) 25 mg Q6 NGT Last administered on 10/24/18 13:08; Admin Dose 25 MG; Start 10/20/18 at 12:00 Hydralazine HCl (Apresoline) 5 mg Q8H PRN IV sbp >160; Start 10/20/18 at 12:00 Miscellaneous Information (Pending [facility] Order For Wound Care) This patient martin... PRN PRN XX WOUND CARE; Start 10/21/18 at 07:30 Valproate Sodium (Depakene Liquid Cup) 1,000 mg Q8 GTB Last administered on 10/24/18 13:08; Admin Dose 1,000 MG; Start 10/22/18 at 22:00 Enoxaparin Sodium (Lovenox) 70 mg BID SC Last administered on 10/24/18 09:40; Admin Dose 70 MG; Start 10/23/18 at 21:00 MARKOS BRADY NP Oct 24, 2018 13:27
--- NOTE | 2018-10-24 13:47 | QN ---
Documentation Comment Biomedical ethics committee Biomedical ethics committee met today to discuss the case of this patient. Information was presented by Dr. Ed Lang. Briefly this patient has been living in ECF with marginal functional status and not with capacity for medical decision making. She suffered event and was admitted to this hospital with sepsis and intubation. She has been successfully extubated and is being fed by nasogastric feeding tube at this time. She has not returned to her preevent status. The question has been raised to the biomedical ethics committee given this patient has no spokesperson, no Conservator, and no individual to act as the decision maker to address certain features. Based on the information provided is the opinion of the biomedical ethics committee that this patient if they were to suffer another cardiac arrest would not be likely to return to any type of functional status and therefore the benefits would not outweigh the risks and the patient would be worse off for. As such it is a opinion of the biomedical ethics committee that we are in support of the primary care team's request to make the patient DNR and DNI. Regarding the feeding tube given that this is a different type of therapeutic we are of the opinion that if the medical team deems it appropriate to decrease the risk of aspiration that the placement of a PEG tube would be in the patient's best interest we are in agreement with proceeding and that light. Ultimately if and when the patient stabilized and is an improved when they go to the facility copies of this note should go along so that the treating physician there can address CODE STATUS at that other facility. Respectfully ZINA Gordillo MD, MD Oct 24, 2018 13:47
--- NOTE | 2018-10-24 15:17 | CONS ---
Assessment/Plan Assessment/Plan Hospital Course 67 F c/ dementia, epilepsy, and other comorbidities, who presents for management of cardiopulmonary Sx. She was noted to have a generalized convulsion on 10/08, for which neurology is consulted... Certainly her acute illness is lowering her seizure threshold.. CTH is without acute intracranial pathology EEG is notable for severe left hemispheric on diffuse slowing 10/12: breakthrough seizure --> ativan rescue Repeat EEG, 10/14, is without evidence of nonconvulsive status. Depakote level on 10/22 is 105. P: Cont depakote 1g tid for now. Repeat level in am. Cont Keppra 1000mg bid for now Ativan iv prn prolonged seizure or cluster OK to continue asa daily for primary stroke prevention given her afib Low dose seroquel prn agitation Continued medical management per primary Will follow Consultation Date/Type/Reason Admit Date/Time Oct 06, 2018 at 09:29 Type of Consult Neurology Reason for Consultation seizure Requesting Provider: MANUEL ALEMAN Date/Time of Note DATE: 10/24/18 TIME: 15:16 24 HR Interval Summary Free Text/Dictation Continues acute care. Exam Vital Signs Vitals Vital Signs Date Temp Pulse Resp B/P (MAP) Pulse Ox O2 O2 Flow FiO2 Time Delivery Rate 10/24/18 98.3 80 18 138/76 98 Room Air 15:13 (96) 10/24/18 6.0 13:20 10/22/18 28 13:33 Intake and Output 10/23/18 10/23/18 10/24/18 1414:59 22:59 06:59 IntakeIntake Total 210 ml 750 ml 850 ml OutputOutput Total 2600 ml 900 ml BalanceBalance 210 ml -1850 ml -50 ml Exam PE: Gen Appearance: Anxious once woken up HEENT: Normocephalic Cardiovascular: Regular rate Abdomen: Soft Extremities: Dry NE: The patient was asleep, though arousable to voice. Incomprehensibly verbal. Able to track. Unable to follow commands. Cranial nerve examination was limited by mental status. Pupils were equal and reactive to light. There was no afferent pupillary defect. Funduscopic examination was limited. Face was grossly symmetric, w/ present corneal and cough reflexes. Tone was slightly increased in her LUE. Muscle bulk was normal. No fasciculations were noted. The patient withdrew all extremities. Coordination and gait testing was limited by mental status. Arm and leg reflexes were symmetric. Beck's sign was absent. Plantar responses were flexor. CHEYENNE JEAN NP Oct 24, 2018 15:16
--- NOTE | 2018-10-24 15:56 | PN ---
Date/Time of Note Date/Time of Note DATE: 10/24/18 TIME: 15:50 Assessment/Plan VTE Prophylaxis Risk score (from Ns)>0 risk: 6 SCD applied (from Ns): Yes Pharmacological prophylaxis: LMWH Lines/Catheters IV [facility] [place] Urinary Cath still in place: Yes Reason Cath still needed: pres ulcer contaminated by urine Assessment/Plan Assessment/Plan 67-year-old female coming in with signs of septic shock, likely secondary to urinary tract infection and pneumonia, elevated troponins, acute renal insufficiency, now intubated on pressor support. Also presented with atrial fibrillation with rapid ventricular response, now in normal sinus rhythm. #Septic shock and respiratory failure - resolved -ID Dr. Sanford following - Likely due to UTI - Urine cultures and Blood cultures growing E Coli x2 -has been off vasopressor support. -Patient extubated 10/18 -Continue current broad-spectrum antibiotics, Tylenol p.r.n. pain and fevers. -Follow pulmonary recommendations #Seizure - Morning of 10/08 had whole body twitching concerning for seizures; got Ativan then Versed. Again on 10/11 had a similar episode broken with Ativan -10/08/18 EEG appears to have localized lesion but CT head is negative. Repeat EEG from 10/15/18 results noted, neuro following. - Continue keppra, valproic acid, follow-up neurology recommendations - Holding versed, but continue Ativan as needed - Low-dose Seroquel as needed for agitation # NSTEMI - Unclear if this is true non-ST elevation myocardial infarction versus demand ischemia- s/p heparin gtt earlier this admission. - Continue high dose aspirin. - Continue Lipitor. - Cardiology Dr. Mello consulted, follow-up their recommendations -continue medical management #A fib with RVR, paroxysmal-stable, Dr. Mello following- Converted to normal sinus after getting Cardizem in ED-apparently went back in A fib later, now the last few days has been in normal sinus rhythm -Monitor heart rate for now, follow cardiology recommendations -Continue p.o. beta-panda and p.o. amiodarone for now # Renal insufficiency - improving- Not anuric - Dr. Davila consulted, monitor for now # Hypothyroidism - Continue current thyroid medicines. - Low TSH, normal fT4 consistent with sick euthyroid syndrome. # History of dementia. - Continue Aricept for now. - Spoke to Valentina GILLILAND at SNF. Prior to admission, patient was able to walk assisted, feed self, say simple words like "bathroom" and "pain". Not oriented to name, location, time. # History of high cholesterol. - Cont statin #Anemia: Unclear source, hemoglobin in the high 7 - low 8 range; PRBC transfusion performed a few days ago -Monitor CBC daily #Hypernatremia: Resolved now -Monitor, continue current IV fluids # Gastrointestinal prophylaxis- H2 panda. # Deep venous thrombosis prophylaxis - due to anemia- SCDs Dispo: This is a severely disabled woman as documented on prior admissions with minimal level of function. She is currently lying in bed, able to moan, not demonstrating any movement of limbs. Also currently unable to swallow. Per most recent bioethics discussion, will proceed with PEG. Result Diagram: 10/23/1862010/23/18620 Subjective 24 Hr Interval Summary Free Text/Dictation No acute overnight events. Ethics meeting today. See note. Made patient DNR Exam/Review of Systems Exam Vitals Vital Signs Date Temp Pulse Resp B/P (MAP) Pulse Ox O2 O2 Flow FiO2 Time Delivery Rate 10/24/18 98.3 80 18 138/76 98 Room Air 15:13 (96) 10/24/18 6.0 13:20 10/22/18 28 13:33 Intake and Output 10/23/18 10/23/18 10/24/18 1515:00 23:00 07:00 IntakeIntake Total 210 ml 750 ml 850 ml OutputOutput Total 2600 ml 900 ml BalanceBalance 210 ml -1850 ml -50 ml Exam GENERAL: lying in bed, opens eyes to voice and moans occasionally HEENT: Moist mucous membranes NECK: Supple, no thyromegaly. LUNGS: Mechanical breath sounds equal bilaterally. CARDIOVASCULAR: S1, S2 heard. No rubs or gallops. ABDOMEN: Soft, nontender, nondistended. Normal bowel sounds. No rebound or guarding. MUSCULOSKELETAL: No lower extremity edema bilaterally. Results Results 24hrs Laboratory Tests Test 10/24/18 05:52 Valproic Acid (Depakene) Level 79 Medications Medication Current Medications IV Flush (NS 3 ml) 3 ml PER PROTOCOL IV ; Start 10/06/18 at 09:30 Ondansetron HCl (Zofran Inj) 4 mg Q6H PRN IV NAUSEA/VOMITING; Start 10/06/18 at 09:30 Acetaminophen (Tylenol Tab) 650 mg Q6H PRN PO .PAIN 1-3 OR TEMP Last administered on 10/12/18at 08:27; Admin Dose 650 MG; Start 10/06/18 at 09:30 Acetaminophen/ Hydrocodone Bitart ([place] (5/325)) 1 tab Q6H PRN PO .MOD PAIN 4- 6; Start 10/06/18 at 09:30 Docusate Sodium (Colace) 100 mg Q12H PRN PO .CONSTIPATION; Start 10/06/18 at 09:30 Magnesium Hydroxide (Milk Of Mag) 30 ml DAILY PRN PO .CONSTIPATION; Start 10/06/18 at 09:30 Albuterol/ Ipratropium (Duoneb) 3 ml Q4H RESP THERAPY PRN HHN SHORTNESS OF BREATH Last administered on 10/23/18at 16:18; Admin Dose 3 ML; Start 10/06/18 at 0 9:30 Nitroglycerin (Nitroglycerin (Sl Tab) 0.4 Mg) 1 tab Q5M PRN SL ANGINA; Start 10/06/18 at 09:30 Bisacodyl (Dulcolax) 10 mg DAILY PRN PO CONSTIPATION; Start 10/06/18 at 09:30 Donepezil HCl (Aricept) 5 mg QHS PO Last administered on 10/23/18at 20:40; Admin Dose 5 MG; Start 10/06/18 at 21:00 Lactulose (Enulose) 20 gm TID PRN PO CONSTIPATION; Start 10/06/18 at 09:30 Levothyroxine Sodium (Synthroid) 50 mcg BEFORE BREAKFAST PO Last administered on 10/24/18at 05:37; Admin Dose 50 MCG; Start 10/07/18 at 07:00 Mineral Oil (Fleet Mineral Oil Enema) 133 ml DAILY PRN [place] CONSTIPATION; Start 10/06/18 at 09:30 Multivitamins Therapeutic (Theragran) 1 tab DAILY PO Last administered on 10/24/18at 09:29; Admin Dose 1 TAB; Start 10/07/18 at 09:00 Aspirin (Aspirin) 81 mg DAILY NGT Last administered on 10/11/18at 09:35; Admin Dose 81 MG; Start 10/06/18 at 12:30; Status Hold Atorvastatin Calcium (Lipitor) 40 mg DAILY@21 NGT Last administered on 10/23/18 20:39; Admin Dose 40 MG; Start 10/06/18 at 21:00 Miscellaneous Information (Flu Vaccine Previously Dispensed) FLU VACCINE PREVIOU... NOTE PRN XX NOTE; Start 10/06/18 at 18:00 Amiodarone HCl (Cordarone) 200 mg BID PO Last administered on 10/24/18 09:30; Admin Dose 200 MG; Start 10/09/18 at 21:00 Famotidine (Pepcid) 20 mg DAILY NGT Last administered on 10/24/18 09:30; Admin Dose 20 MG; Start 10/10/18 at 09:00 Polyethylene Glycol (Miralax) 17 gm BID PRN PO constipation; Start 10/10/18 at 22:00 Metoprolol Tartrate (Lopressor) 25 mg BID PO Last administered on 10/24/18 09:30; Admin Dose 25 MG; Start 10/12/18 at 15:00 Metoprolol Tartrate (Lopressor) 5 mg Q4H PRN IV HR>110 Hold SBP<100 Last administered on 10/20/18 11:40; Admin Dose 5 MG; Start 10/12/18 at 15:00 Levetiracetam (Keppra Liquid) 1,000 mg BID GTB Last administered on 10/24/18 09:29; Admin Dose 1,000 MG; Start 10/14/18 at 21:00 Lorazepam (Ativan) 1 mg Q4H PRN IV SEIZURES Last administered on 10/23/18 04:29; Admin Dose 1 MG; Start 10/16/18 at 12:00 Morphine Sulfate (morphine) 1 mg Q4H PRN IV .SEVERE PAIN 7-10 Last administered on 10/22/18 04:15; Admin Dose 1 MG; Start 10/16/18 at 15:45 Epoetin Nile (Epogen (Non Esrd/Non Oncology)) 6,000 units MoWeFr@17 SC Last administered on 10/23/18 17:06; Admin Dose 6,000 UNITS; Start 10/18/18 at 17:00 Furosemide (Lasix) 20 mg DAILY@0600 IV Last administered on 3/20/19at 06:00; Admin Dose 20 MG; Start 10/18/18 at 12:30 Quetiapine Fumarate (Seroquel) 12.5 mg QID PRN NGT anxiety/agitation Last administered on 10/23/18 12:08; Admin Dose 12.5 MG; Start 10/18/18 at 14:30 Quetiapine Fumarate (Seroquel) 12.5 mg QHS NGT Last administered on 10/23/18at 20:40; Admin Dose 12.5 MG; Start 10/19/18 at 21:00 Hydralazine HCl (Apresoline) 25 mg Q6 NGT Last administered on 10/24/18 13:08; Admin Dose 25 MG; Start 10/20/18 at 12:00 Hydralazine HCl (Apresoline) 5 mg Q8H PRN IV sbp >160; Start 10/20/18 at 12:00 Miscellaneous Information (Pending [facility] Order For Wound Care) This patient martin... PRN PRN XX WOUND CARE; Start 10/21/18 at 07:30 Valproate Sodium (Depakene Liquid Cup) 1,000 mg Q8 GTB Last administered on 10/24/18 13:08; Admin Dose 1,000 MG; Start 10/22/18 at 22:00 Enoxaparin Sodium (Lovenox) 70 mg BID SC Last administered on 10/24/18at 09:40; Admin Dose 70 MG; Start 10/23/18 at 21:00 ANGELA MOSQUERA MD Oct 24, 2018 15:56
--- NOTE | 2018-10-24 18:09 | CONS ---
Assessment/Plan Assessment/Plan Hospital Course (Demo Recall) IMP: 1. Nstemi- in setting of renal failure and shock. Downtrended 2.Shock-improved off pressors with actual HTN now 3.Tachycardia-S tach at this time 4.UTI 5.PAF with RVR-now back in SR this AM 6.Renal failure 7.Dyslipidemia 8.Sz d/o 9. Hypothyroid 10. anemia-s/p transfusions 11. Resp failure s/p extubation this am Recc: -ICU -Contineu current BB/hydralazine -Follow rhythm and rate closely -Continue abx's and f/u cx data -Continue statin -now in SR on po amio. Will follow rhythm clsoely -Lovenox as tolerated only given anemia requiring transfusions and should be increased to BID as tolerated given improved director labor standards now -follow resp status and volume status closely Consultation Date/Type/Reason Admit Date/Time Oct 06, 2018 at 09:29 Initial Consult Date 10/06/18 Type of Consult Cardiology Reason for Consultation HTN Requesting Provider: MANUEL ALEMAN Date/Time of Note DATE: 10/24/18 TIME: 18:06 Exam/Review of Systems Vital Signs Vitals Vital Signs Date Temp Pulse Resp B/P (MAP) Pulse Ox O2 O2 Flow FiO2 Time Delivery Rate 10/24/18 90 16:01 10/24/18 98.3 18 138/76 98 Room Air 15:13 (96) 10/24/18 6.0 13:20 10/22/18 28 13:33 Intake and Output 10/23/18 10/23/18 10/24/18 1414:59 22:59 06:59 IntakeIntake Total 210 ml 750 ml 850 ml OutputOutput Total 2600 ml 900 ml BalanceBalance 210 ml -1850 ml -50 ml Exam Exam Review of Systems: CONSTITUTIONAL: No fevers, chills. PULMONARY: No sob CARDIOVASCULAR: No chest pain/palpitations GASTROINTESTINAL: No nausea/vomiting. GENITOURINARY: No hematuria/dysuria. MUSCULOSKELETAL: No myagias/arthalgias. PSYCHIATRIC: The patient denies depression. NEUROLOGIC: No weakness Constitutional: alert Psych: no complaints Head: normocephalic ENMT: mucosa pink and moist Neck: supple, jvd (9 cm water) Respiratory: diminished breath sounds Cardiovascular: regular rate and rhythm Gastrointestinal: soft, non-tender Musculoskeletal: muscle tone (normal) Extremities: edema (none) Labs Result Diagram: 10/23/1862010/23/18 0621 Results 24hrs Laboratory Tests Test 10/24/18 05:52 Valproic Acid (Depakene) Level 79 Medications Medications Current Medications IV Flush (NS 3 ml) 3 ml PER PROTOCOL IV ; Start 10/06/18 at 09:30 Ondansetron HCl (Zofran Inj) 4 mg Q6H PRN IV NAUSEA/VOMITING; Start 10/06/18 at 09:30 Acetaminophen (Tylenol Tab) 650 mg Q6H PRN PO .PAIN 1-3 OR TEMP Last administered on 10/12/18at 08:27; Admin Dose 650 MG; Start 10/06/18 at 09:30 Acetaminophen/ Hydrocodone Bitart ([place] (5/325)) 1 tab Q6H PRN PO .MOD PAIN 4- 6; Start 10/06/18 at 09:30 Docusate Sodium (Colace) 100 mg Q12H PRN PO .CONSTIPATION; Start 10/06/18 at 09:30 Magnesium Hydroxide (Milk Of Mag) 30 ml DAILY PRN PO .CONSTIPATION; Start 10/06/18 at 09:30 Albuterol/ Ipratropium (Duoneb) 3 ml Q4H RESP THERAPY PRN HHN SHORTNESS OF BREATH Last administered on 10/23/18at 16:18; Admin Dose 3 ML; Start 10/06/18 at 09:30 Nitroglycerin (Nitroglycerin (Sl Tab) 0.4 Mg) 1 tab Q5M PRN SL ANGINA; Start 10/06/18 at 09:30 Bisacodyl (Dulcolax) 10 mg DAILY PRN PO CONSTIPATION; Start 10/06/18 at 09:30 Donepezil HCl (Aricept) 5 mg QHS PO Last administered on 10/23/18at 20:40; Admin Dose 5 MG; Start 10/06/18 at 21:00 Lactulose (Enulose) 20 gm TID PRN PO CONSTIPATION; Start 10/06/18 at 09:30 Levothyroxine Sodium (Synthroid) 50 mcg BEFORE BREAKFAST PO Last administered on 10/24/18at 05:37; Admin Dose 50 MCG; Start 10/07/18 at 07:00 Mineral Oil (Fleet Mineral Oil Enema) 133 ml DAILY PRN [place] CONSTIPATION; Start 10/06/18 at 09:30 Multivitamins Therapeutic (Theragran) 1 tab DAILY PO Last administered on 10/24/18 09:29; Admin Dose 1 TAB; Start 10/07/18 at 09:00 Aspirin (Aspirin) 81 mg DAILY NGT Last administered on 10/11/18 09:35; Admin Dose 81 MG; Start 10/06/18 at 12:30; Status Hold Atorvastatin Calcium (Lipitor) 40 mg DAILY@21 NGT Last administered on 10/23/18 20:39; Admin Dose 40 MG; Start 10/06/18 at 21:00 Miscellaneous Information (Flu Vaccine Previously Dispensed) FLU VACCINE PREVIOU... NOTE PRN XX NOTE; Start 10/06/18 at 18:00 Amiodarone HCl (Cordarone) 200 mg BID PO Last administered on 10/24/18 09:30; Admin Dose 200 MG; Start 10/09/18 at 21:00 Famotidine (Pepcid) 20 mg DAILY NGT Last administered on 10/24/18 09:30; Admin Dose 20 MG; Start 10/10/18 at 09:00 Polyethylene Glycol (Miralax) 17 gm BID PRN PO constipation; Start 10/10/18 at 22:00 Metoprolol Tartrate (Lopressor) 25 mg BID PO Last administered on 10/24/18 09:30; Admin Dose 25 MG; Start 10/12/18 at 15:00 Metoprolol Tartrate (Lopressor) 5 mg Q4H PRN IV HR>110 Hold SBP<100 Last administered on 10/20/18 11:40; Admin Dose 5 MG; Start 10/12/18 at 15:00 Levetiracetam (Keppra Liquid) 1,000 mg BID GTB Last administered on 10/24/18 09:29; Admin Dose 1,000 MG; Start 10/14/18 at 21:00 Lorazepam (Ativan) 1 mg Q4H PRN IV SEIZURES Last administered on 10/23/18 04:29; Admin Dose 1 MG; Start 10/16/18 at 12:00 Morphine Sulfate (morphine) 1 mg Q4H PRN IV .SEVERE PAIN 7-10 Last administered on 10/22/18 04:15; Admin Dose 1 MG; Start 10/16/18 at 15:45 Epoetin Nile (Epogen (Non Esrd/Non Oncology)) 6,000 units MoWeFr@17 SC Last administered on 10/23/18 17:06; Admin Dose 6,000 UNITS; Start 10/18/18 at 17:00 Furosemide (Lasix) 20 mg DAILY@0600 IV Last administered on 10/23/18 06:00; Admin Dose 20 MG; Start 10/18/18 at 12:30 Quetiapine Fumarate (Seroquel) 12.5 mg QID PRN NGT anxiety/agitation Last administered on 10/23/18 12:08; Admin Dose 12.5 MG; Start 10/18/18 at 14:30 Quetiapine Fumarate (Seroquel) 12.5 mg QHS NGT Last administered on 10/23/18 20:40; Admin Dose 12.5 MG; Start 10/19/18 at 21:00 Hydralazine HCl (Apresoline) 25 mg Q6 NGT Last administered on 10/24/18 17:30; Admin Dose 25 MG; Start 10/20/18 at 12:00 Hydralazine HCl (Apresoline) 5 mg Q8H PRN IV sbp >160; Start 10/20/18 at 12:00 Miscellaneous Information (Pending [facility] Order For Wound Care) This patient martin... PRN PRN XX WOUND CARE; Start 10/21/18 at 07:30 Valproate Sodium (Depakene Liquid Cup) 1,000 mg Q8 GTB Last administered on 10/24/18 13:08; Admin Dose 1,000 MG; Start 10/22/18 at 22:00 Enoxaparin Sodium (Lovenox) 70 mg BID SC Last administered on 10/24/18 09:40; Admin Dose 70 MG; Start 10/23/18 at 21:00 ANGELA CRAY Oct 24, 2018 18:09
--- NOTE | 2018-10-24 19:56 | CONS ---
Assessment/Plan Assessment/Plan Assessment/Plan (Daily) Inability to Eat due to mental status/ Comorbidities -PEG placement requested by Bioethics Team -reasonable request -will be able to try to place PEG endoscopically provided patient is medically optimized for tomorrow -cardiology clearance for sedation -PEG is better for group home feeds. NG placement since 10/12, Consultation Date/Type/Reason Admit Date/Time Oct 06, 2018 at 09:29 Date of Consultation: Oct 24, 2018 Type of Consult Gastroenterology Reason for Consultation G-tube placement per Bioethics team Date/Time of Note DATE: 10/24/18 TIME: 19:12 Hx of Present Illness Patient is a 67F currently admitted with multiple severe comorbidities. NSTEMI Cardiac shock, now off pressors. Afib RVR Renal failure Respiratory failure, extubated. Seizure disorder Patient is unable to provide history. Most of the history is obtained from prior charting and review of most recent notes. Bioethics team has deemed a PEG placement helpful and in the best interest of the patient. There is no family to consent Subjective hx not possible: pt non-verbal Past Medical History Medical History: high cholesterol, hypertension, hyperthyroid, hypothyroid, other (Dementia, Encephalopathy) Home Meds Active Scripts Vancomycin Hcl (Vancocin) 1 Gm Soln, 500 MG IV Q12 for 7 Days, VIAL 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 [employer]GER 08/31/18 Aztreonam (AZTREONAM) 1 Gm Vial, 1 GM IV* Q12 for 7 Days, VIAL 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 [employer]EV[employer] ACCOUNT MANAGER 08/31/18 Reported Medications Donepezil* (Donepezil*) 5 Mg Tablet, 5 MG PO QHS, #30 TAB 08/28/18 Divalproex Sodium* (Depakote*) 500 Mg Tablet.dr, 500 MG PO BID, #120 TAB 08/28/18 Docusate Sodium* (Colace*) 100 Mg Capsule, 100 MG PO BID PRN for CONSTIPATION, #60 CAP 08/28/18 Atorvastatin Calcium (Atorvastatin Calcium) 10 Mg Tablet, 10 MG PO QHS, #30 TAB 08/28/18 Lorazepam* (Lorazepam*) 1 Mg Tablet, 1 MG PO BID PRN for ANXIETY, #30 TAB 08/28/18 Lactulose* (Lactulose*) 20 Gm/30 Ml Solution, 20 GM PO TID PRN for CONSTIPATION, ML 08/28/18 Trazodone Hcl* (Trazodone Hcl*) 100 Mg Tablet, 100 MG PO QHS, #30 TAB 08/28/18 Quetiapine Fumarate* (Seroquel*) 200 Mg Tablet, 200 MG PO HS, #30 TAB 08/28/18 Sennosides* (Senna Lax*) 8.6 Mg Tablet, 2 TAB PO QHS PRN for CONSTIPATION, TAB 08/28/18 Multivitamins* (Theragran*) 1 Tab Tab, 1 TAB PO DAILY, TAB 08/28/18 Polyethylene Glycol* (Miralax*) 17 Gm Powd.pack, 17 GM PO BID, #60 PACKET 08/28/18 Metoprolol Tartrate* (Lopressor*) 25 Mg Tab, 12.5 MG PO DAILY, #60 TAB HOLD IF SBP<115 OR HR<60 08/28/18 Levothyroxine Sodium* (Levothyroxine Sodium*) 50 Mcg Tablet, 50 MCG PO BEFORE BREAKFAST, #30 TAB 08/28/18 Levetiracetam* (Keppra*) 500 Mg Tablet, 500 MG PO BID, TAB 08/28/18 Gabapentin* (Gabapentin*) 400 Mg Capsule, 400 MG PO TID, #90 CAP 08/28/18 Phenylephrine HCl/Whiteclay Butter* (Preparation H* Suppository) 1 Each Supp.rect, 1 EACH [place] DAILY PRN for CONSTIPATION, SUPP.RECT 08/28/18 Mineral Oil* (Fleet* Mineral Oil Enema) 133 Ml Oil, 133 ML [place] DAILY PRN for CONSTIPATION, ENEMA 08/28/18 Acetaminophen* (Acetaminophen*) 650 Mg Tablet, 650 MG PO DAILY PRN for PAIN AND OR ELEVATED TEMP, #30 TAB 08/28/18 Bisacodyl* (Bisacodyl*) 5 Mg Tablet.dr, 10 MG PO DAILY PRN for CONSTIPATION, TAB 08/28/18 Medications Current Medications IV Flush (NS 3 ml) 3 ml PER PROTOCOL IV ; Start 10/06/18 at 09:30 Ondansetron HCl (Zofran Inj) 4 mg Q6H PRN IV NAUSEA/VOMITING; Start 10/06/18 at 09:30 Acetaminophen (Tylenol Tab) 650 mg Q6H PRN PO .PAIN 1-3 OR TEMP Last administered on 10/12/18 08:27; Admin Dose 650 MG; Start 10/06/18 at 09:30 Acetaminophen/ Hydrocodone Bitart ([place] (5/325)) 1 tab Q6H PRN PO .MOD PAIN 4- 6; Start 10/06/18 at 09:30 Docusate Sodium (Colace) 100 mg Q12H PRN PO .CONSTIPATION; Start 10/06/18 at 09:30 Magnesium Hydroxide (Milk Of Mag) 30 ml DAILY PRN PO .CONSTIPATION; Start 10/06/18 at 09:30 Albuterol/ Ipratropium (Duoneb) 3 ml Q4H RESP THERAPY PRN HHN SHORTNESS OF BREATH Last administered on 10/23/18at 16:18; Admin Dose 3 ML; Start 10/06/18 at 09:30 Nitroglycerin (Nitroglycerin (Sl Tab) 0.4 Mg) 1 tab Q5M PRN SL ANGINA; Start 10/06/18 at 09:30 Bisacodyl (Dulcolax) 10 mg DAILY PRN PO CONSTIPATION; Start 10/06/18 at 09:30 Donepezil HCl (Aricept) 5 mg QHS PO Last administered on 10/23/18at 20:40; Admin Dose 5 MG; Start 10/06/18 at 21:00 Lactulose (Enulose) 20 gm TID PRN PO CONSTIPATION; Start 10/06/18 at 09:30 Levothyroxine Sodium (Synthroid) 50 mcg BEFORE BREAKFAST PO Last administered on 10/24/18 05:37; Admin Dose 50 MCG; Start 10/07/18 at 07:00 Mineral Oil (Fleet Mineral Oil Enema) 133 ml DAILY PRN [place] CONSTIPATION; Start 10/06/18 at 09:30 Multivitamins Therapeutic (Theragran) 1 tab DAILY PO Last administered on 10/24/18 09:29; Admin Dose 1 TAB; Start 10/07/18 at 09:00 Aspirin (Aspirin) 81 mg DAILY NGT Last administered on 10/11/18 09:35; Admin Dose 81 MG; Start 10/06/18 at 12:30; Status Hold Atorvastatin Calcium (Lipitor) 40 mg DAILY@21 NGT Last administered on 10/23/18at 20:39; Admin Dose 40 MG; Start 10/06/18 at 21:00 Miscellaneous Information (Flu Vaccine Previously Dispensed) FLU VACCINE PREVIOU... NOTE PRN XX NOTE; Start 10/06/18 at 18:00 Amiodarone HCl (Cordarone) 200 mg BID PO Last administered on 10/24/18 09:30; Admin Dose 200 MG; Start 10/09/18 at 21:00 Famotidine (Pepcid) 20 mg DAILY NGT Last administered on 10/24/18 09:30; Admin Dose 20 MG; Start 10/10/18 at 09:00 Polyethylene Glycol (Miralax) 17 gm BID PRN PO constipation; Start 10/10/18 at 22:00 Metoprolol Tartrate (Lopressor) 25 mg BID PO Last administered on 10/24/18 09:30; Admin Dose 25 MG; Start 10/12/18 at 15:00 Metoprolol Tartrate (Lopressor) 5 mg Q4H PRN IV HR>110 Hold SBP<100 Last administered on 10/20/18at 11:40; Admin Dose 5 MG; Start 10/12/18 at 15:00 Levetiracetam (Keppra Liquid) 1,000 mg BID GTB Last administered on 10/24/18 09:29; Admin Dose 1,000 MG; Start 10/14/18 at 21:00 Lorazepam (Ativan) 1 mg Q4H PRN IV SEIZURES Last administered on 10/23/18 04:29; Admin Dose 1 MG; Start 10/16/18 at 12:00 Morphine Sulfate (morphine) 1 mg Q4H PRN IV .SEVERE PAIN 7-10 Last administered on 10/22/18 04:15; Admin Dose 1 MG; Start 10/16/18 at 15:45 Epoetin Nile (Epogen (Non Esrd/Non Oncology)) 6,000 units MoWeFr@17 SC Last administered on 10/23/18 17:06; Admin Dose 6,000 UNITS; Start 10/18/18 at 17:00 Furosemide (Lasix) 20 mg DAILY@0600 IV Last administered on 10/23/18 06:00; Admin Dose 20 MG; Start 10/18/18 at 12:30 Quetiapine Fumarate (Seroquel) 12.5 mg QID PRN NGT anxiety/agitation Last administered on 10/23/18at 12:08; Admin Dose 12.5 MG; Start 10/18/18 at 14:30 Quetiapine Fumarate (Seroquel) 12.5 mg QHS NGT Last administered on 10/23/18at 20:40; Admin Dose 12.5 MG; Start 10/19/18 at 21:00 Hydralazine HCl (Apresoline) 25 mg Q6 NGT Last administered on 10/24/18at 17:30; Admin Dose 25 MG; Start 10/20/18 at 12:00 Hydralazine HCl (Apresoline) 5 mg Q8H PRN IV sbp >160; Start 10/20/18 at 12:00 Miscellaneous Information (Pending [facility] Order For Wound Care) This patient martin... PRN PRN XX WOUND CARE; Start 10/21/18 at 07:30 Valproate Sodium (Depakene Liquid Cup) 1,000 mg Q8 GTB Last administered on 10/24/18at 13:08; Admin Dose 1,000 MG; Start 10/22/18 at 22:00 Enoxaparin Sodium (Lovenox) 70 mg BID SC Last administered on 10/24/18at 09:40; Admin Dose 70 MG; Start 10/23/18 at 21:00 Allergies: Coded Allergies: Penicillins (Verified Allergy, Unknown, 08/28/18) Sulfa (Sulfonamide Antibiotics) (Verified Allergy, Unknown, 08/28/18) clindamycin (Verified Allergy, Unknown, 08/28/18) ketorolac (Verified Allergy, Unknown, 08/28/18) lactase (Verified Allergy, Unknown, 08/28/18) Uncoded Allergies: TRYPTOPHAN (Allergy, Unknown, 08/28/18) Past Surgical History Past Surgical Hx: other (not available at this time ) Social History Alcohol Use: none Smoking Status: Never smoker Drug Use: none Exam/Review of Systems Exam Vitals Vital Signs Date Temp Pulse Resp B/P (MAP) Pulse Ox O2 O2 Flow FiO2 Time Delivery Rate 10/24/18 90 16:01 10/24/18 98.3 18 138/76 98 Room Air 15:13 (96) 10/24/18 6.0 13:20 10/22/18 28 13:33 Intake and Output 10/23/18 10/23/18 10/24/18 1515:00 23:00 07:00 IntakeIntake Total 210 ml 750 ml 850 ml OutputOutput Total 2600 ml 900 ml BalanceBalance 210 ml -1850 ml -50 ml Constitutional: non-verbal Head: normocephalic Eyes: EOMI, nl sclera ENMT: nl external ears & nose Neck: supple Respiratory: diminished breath sounds Gastrointestinal: soft, non-tender Skin: nl turgor Results Result Diagram: 10/23/1862010/23/18620 Results 24hrs Laboratory Tests Test 10/24/18 05:52 Valproic Acid (Depakene) Level 79 Medications Medication Current Medications IV Flush (NS 3 ml) 3 ml PER PROTOCOL IV ; Start 10/06/18 at 09:30 Ondansetron HCl (Zofran Inj) 4 mg Q6H PRN IV NAUSEA/VOMITING; Start 10/06/18 at 09:30 Acetaminophen (Tylenol Tab) 650 mg Q6H PRN PO .PAIN 1-3 OR TEMP Last administered on 10/12/18at 08:27; Admin Dose 650 MG; Start 10/06/18 at 09:30 Acetaminophen/ Hydrocodone Bitart ([place] (5/325)) 1 tab Q6H PRN PO .MOD PAIN 4- 6; Start 10/06/18 at 09:30 Docusate Sodium (Colace) 100 mg Q12H PRN PO .CONSTIPATION; Start 10/06/18 at 09:30 Magnesium Hydroxide (Milk Of Mag) 30 ml DAILY PRN PO .CONSTIPATION; Start 10/06/18 at 09:30 Albuterol/ Ipratropium (Duoneb) 3 ml Q4H RESP THERAPY PRN HHN SHORTNESS OF BREATH Last administered on 10/23/18at 16:18; Admin Dose 3 ML; Start 10/06/18 at 09:30 Nitroglycerin (Nitroglycerin (Sl Tab) 0.4 Mg) 1 tab Q5M PRN SL ANGINA; Start 10/06/18 at 09:30 Bisacodyl (Dulcolax) 10 mg DAILY PRN PO CONSTIPATION; Start 10/06/18 at 09:30 Donepezil HCl (Aricept) 5 mg QHS PO Last administered on 10/23/18at 20:40; Admin Dose 5 MG; Start 10/06/18 at 21:00 Lactulose (Enulose) 20 gm TID PRN PO CONSTIPATION; Start 10/06/18 at 09:30 Levothyroxine Sodium (Synthroid) 50 mcg BEFORE BREAKFAST PO Last administered on 10/24/18 05:37; Admin Dose 50 MCG; Start 10/07/18 at 07:00 Mineral Oil (Fleet Mineral Oil Enema) 133 ml DAILY PRN [place] CONSTIPATION; Start 10/06/18 at 09:30 Multivitamins Therapeutic (Theragran) 1 tab DAILY PO Last administered on 10/24/18 09:29; Admin Dose 1 TAB; Start 10/07/18 at 09:00 Aspirin (Aspirin) 81 mg DAILY NGT Last administered on 10/11/18 09:35; Admin Dose 81 MG; Start 10/06/18 at 12:30; Status Hold Atorvastatin Calcium (Lipitor) 40 mg DAILY@21 NGT Last administered on 10/23/18 20:39; Admin Dose 40 MG; Start 10/06/18 at 21:00 Miscellaneous Information (Flu Vaccine Previously Dispensed) FLU VACCINE PREVIOU... NOTE PRN XX NOTE; Start 10/06/18 at 18:00 Amiodarone HCl (Cordarone) 200 mg BID PO Last administered on 10/24/18 09:30; Admin Dose 200 MG; Start 10/09/18 at 21:00 Famotidine (Pepcid) 20 mg DAILY NGT Last administered on 10/24/18 09:30; Admin Dose 20 MG; Start 10/10/18 at 09:00 Polyethylene Glycol (Miralax) 17 gm BID PRN PO constipation; Start 10/10/18 at 22:00 Metoprolol Tartrate (Lopressor) 25 mg BID PO Last administered on 10/24/18 09:30; Admin Dose 25 MG; Start 10/12/18 at 15:00 Metoprolol Tartrate (Lopressor) 5 mg Q4H PRN IV HR>110 Hold SBP<100 Last administered on 10/20/18at 11:40; Admin Dose 5 MG; Start 10/12/18 at 15:00 Levetiracetam (Keppra Liquid) 1,000 mg BID GTB Last administered on 10/24/18 09:29; Admin Dose 1,000 MG; Start 10/14/18 at 21:00 Lorazepam (Ativan) 1 mg Q4H PRN IV SEIZURES Last administered on 10/23/18 04:29; Admin Dose 1 MG; Start 10/16/18 at 12:00 Morphine Sulfate (morphine) 1 mg Q4H PRN IV .SEVERE PAIN 7-10 Last administered on 10/22/18 04:15; Admin Dose 1 MG; Start 10/16/18 at 15:45 Epoetin Nile (Epogen (Non Esrd/Non Oncology)) 6,000 units MoWeFr@17 SC Last administered on 10/23/18 17:06; Admin Dose 6,000 UNITS; Start 10/18/18 at 17:00 Furosemide (Lasix) 20 mg DAILY@0600 IV Last administered on 10/23/18 06:00; Admin Dose 20 MG; Start 10/18/18 at 12:30 Quetiapine Fumarate (Seroquel) 12.5 mg QID PRN NGT anxiety/agitation Last administered on 10/23/18 12:08; Admin Dose 12.5 MG; Start 10/18/18 at 14:30 Quetiapine Fumarate (Seroquel) 12.5 mg QHS NGT Last administered on 10/23/18 20:40; Admin Dose 12.5 MG; Start 10/19/18 at 21:00 Hydralazine HCl (Apresoline) 25 mg Q6 NGT Last administered on 10/24/18 17:30; Admin Dose 25 MG; Start 10/20/18 at 12:00 Hydralazine HCl (Apresoline) 5 mg Q8H PRN IV sbp >160; Start 10/20/18 at 12:00 Miscellaneous Information (Pending [facility] Order For Wound Care) This patient martin... PRN PRN XX WOUND CARE; Start 10/21/18 at 07:30 Valproate Sodium (Depakene Liquid Cup) 1,000 mg Q8 GTB Last administered on 10/24/18 13:08; Admin Dose 1,000 MG; Start 10/22/18 at 22:00 Enoxaparin Sodium (Lovenox) 70 mg BID SC Last administered on 10/24/18 09:40; Admin Dose 70 MG; Start 10/23/18 at 21:00 KURT BETTS Oct 24, 2018 19:23
[2018-10-24] MEDS: DONEPEZIL 5 MG TAB PO SCH (20:09)
[2018-10-24] MEDS: ATORVASTATIN 40 MG TAB NGT SCH (20:10)
[2018-10-24] MEDS: QUETIAPINE 25 MG TAB NGT SCH (20:10)
[2018-10-25] VITALS (16 sets, daily range): BP systolic 59–144; BP diastolic 48–79; PULSE 51–130; RESP 14–24
[2018-10-25] MEDS: VALPROIC ACID LIQUID CUP 250 MG/5 ML CUP GTB SCH ×3 (05:35→20:57)
[2018-10-25] MEDS: FUROSEMIDE 20 MG INJ IV SCH (05:35)
--- NOTE | 2018-10-25 08:28 | CONS ---
Assessment/Plan Assessment/Plan Assessment/Plan (Daily) 1. Non Oliguric Acute kidney injury due to ATN from septic shock - Improving 2. Septic shock due to UTI 3. acute UTI with Urine Cx growing E.Coli 4. Acute hypoxic respiratory failure intubated on ventilator - s/p Extubation on 10/18/18 5. H/o HTN 6 H/o HL 7. H/o Hypothyroidism 8. E.Coli bacteremia Plan: Na 141, BUN/Cr 31/0.92- Hb 9.8 on epogen 6000 units MWF for anemia - no labs today to review yet adequate urine output still intermittently confused, Bp stable s/p Bioethics meeting on 10/24/18- DNR status will follow up Consultation Date/Type/Reason Admit Date/Time Oct 06, 2018 at 09:29 Initial Consult Date 10/06/18 Type of Consult NEPHROLOGY Requesting Provider: MANUEL ALEMAN Date/Time of Note DATE: 10/25/18 TIME: 08:27 Exam/Review of Systems Exam Vitals Vital Signs Date Temp Pulse Resp B/P (MAP) Pulse Ox O2 O2 Flow FiO2 Time Delivery Rate 10/25/18 87 08:17 10/25/18 98.2 18 101/59 100 Nasal 07:28 (73) Cannula 10/25/18 6.0 02:26 10/22/18 28 13:33 Intake and Output 10/24/18 10/24/18 10/25/18 1515:00 23:00 07:00 IntakeIntake Total 350 ml 100 ml OutputOutput Total 700 ml 750 ml BalanceBalance -350 ml -650 ml Exam Constitutional: alert, other (Confused, lethargic ) on Facemask Respiratory: Bilateral basilar rales, no wheezing Cardiovascular: regular rate and rhythm, nl pulses Gastrointestinal: soft, non-tender Musculoskeletal: nl extremities to inspection, swelling Neurological: other ( confused, uncooperative for neuro exam ) Results Result Diagram: 10/23/18 0621 10/23/18 0621 Results 24hrs Laboratory Tests Test 10/24/18 20:13 10/25/18 05:29 Prothrombin Time 14.9 Prothrombin Time Ratio 1.2 INR International Normalized Ratio 1.16 Valproic Acid (Depakene) Level 92 Medications Medication Current Medications IV Flush (NS 3 ml) 3 ml PER PROTOCOL IV ; Start 10/06/18 at 09:30 Ondansetron HCl (Zofran Inj) 4 mg Q6H PRN IV NAUSEA/VOMITING; Start 10/06/18 at 09:30 Acetaminophen (Tylenol Tab) 650 mg Q6H PRN PO .PAIN 1-3 OR TEMP Last administered on 10/12/18at 08:27; Admin Dose 650 MG; Start 10/06/18 at 09:30 Acetaminophen/ Hydrocodone Bitart ([place] (5/325)) 1 tab Q6H PRN PO .MOD PAIN 4- 6; Start 10/06/18 at 09:30 Docusate Sodium (Colace) 100 mg Q12H PRN PO .CONSTIPATION; Start 10/06/18 at 09:30 Magnesium Hydroxide (Milk Of Mag) 30 ml DAILY PRN PO .CONSTIPATION; Start 10/06/18 at 09:30 Albuterol/ Ipratropium (Duoneb) 3 ml Q4H RESP THERAPY PRN HHN SHORTNESS OF BREATH Last administered on 10/23/18at 16:18; Admin Dose 3 ML; Start 10/06/18 at 09:30 Nitroglycerin (Nitroglycerin (Sl Tab) 0.4 Mg) 1 tab Q5M PRN SL ANGINA; Start at 09:30 Bisacodyl (Dulcolax) 10 mg DAILY PRN PO CONSTIPATION; Start 10/06/18 at 09:30 Donepezil HCl (Aricept) 5 mg QHS PO Last administered on 10/24/18at 20:09; Admin Dose 5 MG; Start 10/06/18 at 21:00 Lactulose (Enulose) 20 gm TID PRN PO CONSTIPATION; Start 10/06/18 at 09:30 Levothyroxine Sodium (Synthroid) 50 mcg BEFORE BREAKFAST PO Last administered on 10/24/18at 05:37; Admin Dose 50 MCG; Start 10/07/18 at 07:00 Mineral Oil (Fleet Mineral Oil Enema) 133 ml DAILY PRN [place] CONSTIPATION; Start 10/06/18 at 09:30 Multivitamins Therapeutic (Theragran) 1 tab DAILY PO Last administered on 10/24at 09:29; Admin Dose 1 TAB; Start 10/07/18 at 09:00 Aspirin (Aspirin) 81 mg DAILY NGT Last administered on 10/11/18at 09:35; Admin Dose 81 MG; Start 10/06/18 at 12:30; Status Hold Atorvastatin Calcium (Lipitor) 40 mg DAILY@21 NGT Last administered on 10/24/18 20:10; Admin Dose 40 MG; Start 10/06/18 at 21:00 Miscellaneous Information (Flu Vaccine Previously Dispensed) FLU VACCINE PREVIOU... NOTE PRN XX NOTE; Start 10/06/18 at 18:00 Amiodarone HCl (Cordarone) 200 mg BID PO Last administered on 10/24/18 20:09; Admin Dose 200 MG; Start 10/09/18 at 21:00 Famotidine (Pepcid) 20 mg DAILY NGT Last administered on 10/24/18 09:30; Admin Dose 20 MG; Start 10/10/18 at 09:00 Polyethylene Glycol (Miralax) 17 gm BID PRN PO constipation; Start 10/10/18 at 22:00 Metoprolol Tartrate (Lopressor) 25 mg BID PO Last administered on 10/24/18 20:09; Admin Dose 25 MG; Start 10/12/18 at 15:00 Metoprolol Tartrate (Lopressor) 5 mg Q4H PRN IV HR>110 Hold SBP<100 Last administered on 10/20/18 11:40; Admin Dose 5 MG; Start 10/12/18 at 15:00 Levetiracetam (Keppra Liquid) 1,000 mg BID GTB Last administered on 10/24/18 20:08; Admin Dose 1,000 MG; Start 10/14/18 at 21:00 Lorazepam (Ativan) 1 mg Q4H PRN IV SEIZURES Last administered on 10/23/18 04:29; Admin Dose 1 MG; Start 10/16/18 at 12:00 Morphine Sulfate (morphine) 1 mg Q4H PRN IV .SEVERE PAIN 7-10 Last administered on 10/22/18 04:15; Admin Dose 1 MG; Start 10/16/18 at 15:45 Epoetin Nile (Epogen (Non Esrd/Non Oncology)) 6,000 units MoWeFr@17 SC Last administered on 10/23/18 17:06; Admin Dose 6,000 UNITS; Start 10/18/18 at 17:00 Furosemide (Lasix) 20 mg DAILY@0600 IV Last administered on 10/23/18 06:00; Admin Dose 20 MG; Start 10/18/18 at 12:30 Quetiapine Fumarate (Seroquel) 12.5 mg QID PRN NGT anxiety/agitation Last administered on 10/23/18 12:08; Admin Dose 12.5 MG; Start 10/18/18 at 14:30 Quetiapine Fumarate (Seroquel) 12.5 mg QHS NGT Last administered on 10/24/18 20:10; Admin Dose 12.5 MG; Start 10/19/18 at 21:00 Hydralazine HCl (Apresoline) 25 mg Q6 NGT Last administered on 10/25/18 00:00; Admin Dose 25 MG; Start 10/20/18 at 12:00 Hydralazine HCl (Apresoline) 5 mg Q8H PRN IV sbp >160; Start 10/20/18 at 12:00 Miscellaneous Information (Pending [facility] Order For Wound Care) This patient martin... PRN PRN XX WOUND CARE; Start 10/21/18 at 07:30 Valproate Sodium (Depakene Liquid Cup) 1,000 mg Q8 GTB Last administered on 10/24/18 22:52; Admin Dose 1,000 MG; Start 10/22/18 at 22:00 Enoxaparin Sodium (Lovenox) 70 mg BID SC Last administered on 10/24/18 20:18; Admin Dose 70 MG; Start 10/23/18 at 21:00 VALARIE BENNETT MD Oct 25, 2018 08:28
[2018-10-25] MEDS: LEVOTHYROXINE 50 MCG TAB PO SCH (09:18)
[2018-10-25] MEDS: AMIODARONE 200 MG TAB PO SCH ×2 (09:19→20:57)
[2018-10-25] MEDS: METOPROLOL 25 MG TAB PO SCH ×2 (09:20→20:57)
[2018-10-25] MEDS: FAMOTIDINE 20 MG TAB NGT SCH (09:20)
[2018-10-25] MEDS: LEVETIRACETAM (100 MG/ML) 5ML CUP GTB SCH ×2 (09:20→20:57)
[2018-10-25] MEDS: MULTIVITAMINS THERAPEUTIC TAB PO SCH (09:24)
--- NOTE | 2018-10-25 10:00 | CONS ---
Assessment/Plan Assessment/Plan Assessment/Plan (Daily) Assessment and recommendations; next 1. Patient status post extubation was admitted for respiratory failure due to severe sepsis from UTI with stable pulmonary status. 2. Dementia. 3. Tremor like activity, possibly underlying Parkinson's disease. 4. Interval correction of acute renal failure. 5. Dysphagia secondary to dementia. Maintained on nasogastric tube feeding. 6. Paroxysmal atrial fibrillation, currently in sinus rhythm. Continue current supportive care. Patient will need to have a G-tube placed. Consider switching from Lovenox to Eliquis. Prognosis is poor. Consultation Date/Type/Reason Admit Date/Time Oct 06, 2018 at 09:29 Initial Consult Date 10/06/18 Type of Consult Pulmonary/critical care Patient's condition remains critical. Still requiring invasive mechanical ventilation. Patient however has improved hemodynamically and is off pressor support. General exam; elderly female, orally intubated, exhibiting tremor-like activity. Unresponsive. Requesting Provider: MANUEL ALEMAN Date/Time of Note DATE: 10/25/18 TIME: 09:58 24 HR Interval Summary Free Text/Dictation Patient's condition is overall stable. Still exhibiting tremor-like activity. Patient is moaning and groaning. Remains awake but noncommunicative. General exam; elderly female, awake, currently no distress. Exam/Review of Systems Exam Vitals Vital Signs Date Temp Pulse Resp B/P (MAP) Pulse Ox O2 O2 Flow FiO2 Time Delivery Rate 10/25/18 87 08:17 10/25/18 98.2 18 101/59 100 Nasal 07:28 (73) Cannula 10/25/18 6.0 02:26 10/22/18 28 13:33 Intake and Output 10/24/18 10/24/18 10/25/18 1515:00 23:00 07:00 IntakeIntake Total 350 ml 100 ml OutputOutput Total 700 ml 750 ml BalanceBalance -350 ml -650 ml Exam H EENT exam; supple neck, no JVD. No lymphadenopathy. Midline trachea. Nasogastric tube in place. Patient is edentulous. Chest exam; diminished but clear breath sounds. S1-S2 audible, no murmurs. Regular rhythm. Abdomen exam; soft, nontender. No organomegaly. Bowel sounds audible. Extremity exam; no edema. PRESS PULLER exam; is awake but noncommunicative. Results Result Diagram: 3/20/19 0621 10/23/18 0621 Results 24hrs Laboratory Tests Test 10/24/18 20:13 10/25/18 05:29 Prothrombin Time 14.9 Prothrombin Time Ratio 1.2 INR International Normalized Ratio 1.16 Valproic Acid (Depakene) Level 92 Medications Medication Current Medications IV Flush (NS 3 ml) 3 ml PER PROTOCOL IV ; Start 10/06/18 at 09:30 Ondansetron HCl (Zofran Inj) 4 mg Q6H PRN IV NAUSEA/VOMITING; Start 10/06/18 at 09:30 Acetaminophen (Tylenol Tab) 650 mg Q6H PRN PO .PAIN 1-3 OR TEMP Last administered on 10/12/18at 08:27; Admin Dose 650 MG; Start 10/06/18 at 09:30 Acetaminophen/ Hydrocodone Bitart ([place] (5/325)) 1 tab Q6H PRN PO .MOD PAIN 4- 6; Start 10/06/18 at 09:30 Docusate Sodium (Colace) 100 mg Q12H PRN PO .CONSTIPATION; Start 10/06/18 at 09:30 Magnesium Hydroxide (Milk Of Mag) 30 ml DAILY PRN PO .CONSTIPATION; Start 10/06/18 at 09:30 Albuterol/ Ipratropium (Duoneb) 3 ml Q4H RESP THERAPY PRN HHN SHORTNESS OF BREATH Last administered on 10/23/18at 16:18; Admin Dose 3 ML; Start 10/06/18 at 09:30 Nitroglycerin (Nitroglycerin (Sl Tab) 0.4 Mg) 1 tab Q5M PRN SL ANGINA; Start 10/06/18 at 09:30 Bisacodyl (Dulcolax) 10 mg DAILY PRN PO CONSTIPATION; Start 10/06/18 at 09:30 Donepezil HCl (Aricept) 5 mg QHS PO Last administered on 10/24/18at 20:09; Admin Dose 5 MG; Start 10/06/18 at 21:00 Lactulose (Enulose) 20 gm TID PRN PO CONSTIPATION; Start 10/06/18 at 09:30 Levothyroxine Sodium (Synthroid) 50 mcg BEFORE BREAKFAST PO Last administered on 10/25/18at 09:18; Admin Dose 50 MCG; Start 10/07/18 at 07:00 Mineral Oil (Fleet Mineral Oil Enema) 133 ml DAILY PRN [place] CONSTIPATION; Start 10/06/18 at 09:30 Multivitamins Therapeutic (Theragran) 1 tab DAILY PO Last administered on 10/25/18 09:24; Admin Dose 1 TAB; Start 10/07/18 at 09:00 Aspirin (Aspirin) 81 mg DAILY NGT Last administered on 10/11/18 09:35; Admin Dose 81 MG; Start 10/06/18 at 12:30; Status Hold Atorvastatin Calcium (Lipitor) 40 mg DAILY@21 NGT Last administered on 10/24/18 20:10; Admin Dose 40 MG; Start 10/06/18 at 21:00 Miscellaneous Information (Flu Vaccine Previously Dispensed) FLU VACCINE PREVIOU... NOTE PRN XX NOTE; Start 10/06/18 at 18:00 Amiodarone HCl (Cordarone) 200 mg BID PO Last administered on 10/25/18 09:19; Admin Dose 200 MG; Start 10/09/18 at 21:00 Famotidine (Pepcid) 20 mg DAILY NGT Last administered on 10/25/18 09:20; Admin Dose 20 MG; Start 10/10/18 at 09:00 Polyethylene Glycol (Miralax) 17 gm BID PRN PO constipation; Start 10/10/18 at 22:00 Metoprolol Tartrate (Lopressor) 25 mg BID PO Last administered on 10/25/18 09:20; Admin Dose 25 MG; Start 10/12/18 at 15:00 Metoprolol Tartrate (Lopressor) 5 mg Q4H PRN IV HR>110 Hold SBP<100 Last administered on 10/20/18 11:40; Admin Dose 5 MG; Start 10/12/18 at 15:00 Levetiracetam (Keppra Liquid) 1,000 mg BID GTB Last administered on 10/25/18 09:20; Admin Dose 1,000 MG; Start 10/14/18 at 21:00 Lorazepam (Ativan) 1 mg Q4H PRN IV SEIZURES Last administered on 10/23/18 04:29; Admin Dose 1 MG; Start 10/16/18 at 12:00 Morphine Sulfate (morphine) 1 mg Q4H PRN IV .SEVERE PAIN 7-10 Last administered on 10/22/18 04:15; Admin Dose 1 MG; Start 10/16/18 at 15:45 Epoetin Nile (Epogen (Non Esrd/Non Oncology)) 6,000 units MoWeFr@17 SC Last administered on 10/23/18 17:06; Admin Dose 6,000 UNITS; Start 10/18/18 at 17:00 Furosemide (Lasix) 20 mg DAILY@0600 IV Last administered on 10/23/18 06:00; Admin Dose 20 MG; Start 10/18/18 at 12:30 Quetiapine Fumarate (Seroquel) 12.5 mg QID PRN NGT anxiety/agitation Last administered on 10/23/18 12:08; Admin Dose 12.5 MG; Start 10/18/18 at 14:30 Quetiapine Fumarate (Seroquel) 12.5 mg QHS NGT Last administered on 10/24/18 20:10; Admin Dose 12.5 MG; Start 10/19/18 at 21:00 Hydralazine HCl (Apresoline) 25 mg Q6 NGT Last administered on 10/25/18 09:19; Admin Dose 25 MG; Start 10/20/18 at 12:00 Hydralazine HCl (Apresoline) 5 mg Q8H PRN IV sbp >160; Start 10/20/18 at 12:00 Miscellaneous Information (Pending [facility] Order For Wound Care) This patient martin... PRN PRN XX WOUND CARE; Start 10/21/18 at 07:30 Valproate Sodium (Depakene Liquid Cup) 1,000 mg Q8 GTB Last administered on 10/24/18 22:52; Admin Dose 1,000 MG; Start 10/22/18 at 22:00 Enoxaparin Sodium (Lovenox) 70 mg BID SC Last administered on 10/24/18 20:18; Admin Dose 70 MG; Start 10/23/18 at 21:00 YANETH CASTELLANOS 22, 2019 10:00
--- NOTE | 2018-10-25 11:25 | CONS ---
Assessment/Plan Assessment/Plan Hospital Course (Demo Recall) No fevers overnight looks comfortable, off antibiotics Allergy: Penicillin, clindamycin Physical examination: Well-developed chronically ill-appearing elderly woman. The patient is in no distress. Head atraumatic normocephalic. Neck is supple. Chest rise symmetrical, breath sounds with crackles. Heart: S1-S2, tachycardic, irregular. Abdomen soft bowel sounds hypoactive. Extremities with dependent edema Assessment: 1. S/p sepsis 2. S/p E coli bacteremia secondary to urinary tract infection 3. Acute hypoxemic respiratory failure===> extubated 4. S/p Healthcare associated pneumonia, possibly aspiration 4. S/p UMBERTO 5. Non-ST elevation AL 6. Atrial fibrillation status post RVR 7. Seizures 8. Encephalopathy Plan: Patient remains unchanged, requires suctioning and is at high risk for aspiration, continue present care/pulmonary toilet, aspiration precautions, prognosis poor Consultation Date/Type/Reason Admit Date/Time Oct 06, 2018 at 09:29 Initial Consult Date 10/06/18 Type of Consult id Requesting Provider: MANUEL ALEMAN Date/Time of Note DATE: 10/25/18 TIME: 11:22 Exam/Review of Systems Exam Vitals Vital Signs Date Temp Pulse Resp B/P (MAP) Pulse Ox O2 O2 Flow FiO2 Time Delivery Rate 10/25/18 98.8 74 24 144/74 96 Room Air 11:09 (97) 10/25/18 6.0 02:26 10/22/18 28 13:33 Intake and Output 10/24/18 10/24/18 10/25/18 1515:00 23:00 07:00 IntakeIntake Total 350 ml 100 ml OutputOutput Total 700 ml 750 ml BalanceBalance -350 ml -650 ml Results Result Diagram: 10/23/18 0621 10/23/18 0621 Results 24hrs Laboratory Tests Test 10/24/18 20:13 10/25/18 05:29 Prothrombin Time 14.9 Prothrombin Time Ratio 1.2 INR International Normalized Ratio 1.16 Valproic Acid (Depakene) Level 92 Medications Medication Current Medications IV Flush (NS 3 ml) 3 ml PER PROTOCOL IV ; Start 10/06/18 at 09:30 Ondansetron HCl (Zofran Inj) 4 mg Q6H PRN IV NAUSEA/VOMITING; Start 10/06/18 at 09:30 Acetaminophen (Tylenol Tab) 650 mg Q6H PRN PO .PAIN 1-3 OR TEMP Last administered on 10/12/18 08:27; Admin Dose 650 MG; Start 10/06/18 at 09:30 Acetaminophen/ Hydrocodone Bitart ([place] (5/325)) 1 tab Q6H PRN PO .MOD PAIN 4- 6; Start 10/06/18 at 09:30 Docusate Sodium (Colace) 100 mg Q12H PRN PO .CONSTIPATION; Start 10/06/18 at 09:30 Magnesium Hydroxide (Milk Of Mag) 30 ml DAILY PRN PO .CONSTIPATION; Start 10/06/18 at 09:30 Albuterol/ Ipratropium (Duoneb) 3 ml Q4H RESP THERAPY PRN HHN SHORTNESS OF BREATH Last administered on 10/23/18at 16:18; Admin Dose 3 ML; Start 10/06/18 at 09:30 Nitroglycerin (Nitroglycerin (Sl Tab) 0.4 Mg) 1 tab Q5M PRN SL ANGINA; Start 10/06/18 at 09:30 Bisacodyl (Dulcolax) 10 mg DAILY PRN PO CONSTIPATION; Start 10/06/18 at 09:30 Donepezil HCl (Aricept) 5 mg QHS PO Last administered on 10/24/18at 20:09; Admin Dose 5 MG; Start 10/06/18 at 21:00 Lactulose (Enulose) 20 gm TID PRN PO CONSTIPATION; Start 10/06/18 at 09:30 Levothyroxine Sodium (Synthroid) 50 mcg BEFORE BREAKFAST PO Last administered on 10/25/18 09:18; Admin Dose 50 MCG; Start 10/07/18 at 07:00 Mineral Oil (Fleet Mineral Oil Enema) 133 ml DAILY PRN [place] CONSTIPATION; Start 10/06/18 at 09:30 Multivitamins Therapeutic (Theragran) 1 tab DAILY PO Last administered on 10/25/18at 09:24; Admin Dose 1 TAB; Start 10/07/18 at 09:00 Aspirin (Aspirin) 81 mg DAILY NGT Last administered on 10/11/18at 09:35; Admin Dose 81 MG; Start 10/06/18 at 12:30; Status Hold Atorvastatin Calcium (Lipitor) 40 mg DAILY@21 NGT Last administered on 10/24/18 20:10; Admin Dose 40 MG; Start 10/06/18 at 21:00 Miscellaneous Information (Flu Vaccine Previously Dispensed) FLU VACCINE PREVIOU... NOTE PRN XX NOTE; Start 10/06/18 at 18:00 Amiodarone HCl (Cordarone) 200 mg BID PO Last administered on 10/25/18 09:19; Admin Dose 200 MG; Start 10/09/18 at 21:00 Famotidine (Pepcid) 20 mg DAILY NGT Last administered on 10/25/18 09:20; Admin Dose 20 MG; Start 10/10/18 at 09:00 Polyethylene Glycol (Miralax) 17 gm BID PRN PO constipation; Start 10/10/18 at 22:00 Metoprolol Tartrate (Lopressor) 25 mg BID PO Last administered on 10/25/18 09:20; Admin Dose 25 MG; Start 10/12/18 at 15:00 Metoprolol Tartrate (Lopressor) 5 mg Q4H PRN IV HR>110 Hold SBP<100 Last administered on 10/20/18 11:40; Admin Dose 5 MG; Start 10/12/18 at 15:00 Levetiracetam (Keppra Liquid) 1,000 mg BID GTB Last administered on 10/25/18 09:20; Admin Dose 1,000 MG; Start 10/14/18 at 21:00 Lorazepam (Ativan) 1 mg Q4H PRN IV SEIZURES Last administered on 10/23/18 04:29; Admin Dose 1 MG; Start 10/16/18 at 12:00 Morphine Sulfate (morphine) 1 mg Q4H PRN IV .SEVERE PAIN 7-10 Last administered on 10/22/18 04:15; Admin Dose 1 MG; Start 10/16/18 at 15:45 Epoetin Nile (Epogen (Non Esrd/Non Oncology)) 6,000 units MoWeFr@17 SC Last administered on 10/23/18 17:06; Admin Dose 6,000 UNITS; Start 10/18/18 at 17:00 Furosemide (Lasix) 20 mg DAILY@0600 IV Last administered on 10/23/18 06:00; Admin Dose 20 MG; Start 10/18/18 at 12:30 Quetiapine Fumarate (Seroquel) 12.5 mg QID PRN NGT anxiety/agitation Last administered on 10/23/18at 12:08; Admin Dose 12.5 MG; Start 10/18/18 at 14:30 Quetiapine Fumarate (Seroquel) 12.5 mg QHS NGT Last administered on 10/24/18at 20:10; Admin Dose 12.5 MG; Start 10/19/18 at 21:00 Hydralazine HCl (Apresoline) 25 mg Q6 NGT Last administered on 10/25/18at 09:19; Admin Dose 25 MG; Start 10/20/18 at 12:00 Hydralazine HCl (Apresoline) 5 mg Q8H PRN IV sbp >160; Start 10/20/18 at 12:00 Miscellaneous Information ([facility]) This patient martin... PRN PRN XX WOUND CARE; Start 10/21/18 at 07:30 Valproate Sodium (Depakene Liquid Cup) 1,000 mg Q8 GTB Last administered on 10/24/18at 22:52; Admin Dose 1,000 MG; Start 10/22/18 at 22:00 Enoxaparin Sodium (Lovenox) 70 mg BID SC Last administered on 10/24/18at 20:18; Admin Dose 70 MG; Start 10/23/18 at 21:00 MARKOS BRADY NP Oct 25, 2018 11:25
[2018-10-25] MEDS: BALSAM PERU/CASTOR OIL 60 GM TUBE TOP SCH (13:16)
--- NOTE | 2018-10-25 14:10 | CONS ---
Assessment/Plan Assessment/Plan Hospital Course 67 F c/ dementia, epilepsy, and other comorbidities, who presents for management of cardiopulmonary Sx. She was noted to have a generalized convulsion on 10/08, for which neurology is consulted... Certainly her acute illness is lowering her seizure threshold.. CTH is without acute intracranial pathology EEG is notable for severe left hemispheric on diffuse slowing 10/12: breakthrough seizure --> ativan rescue Repeat EEG, 10/14, is without evidence of nonconvulsive status. Depakote level on 10/25 is 92 P: Cont depakote 1g tid for now. Repeat level in am. Cont Keppra 1000mg bid for now Ativan iv prn prolonged seizure or cluster OK to cont asa daily for primary stroke prevention given her afib Low dose seroquel prn agitation Continued medical management per primary Will follow Consultation Date/Type/Reason Admit Date/Time Oct 06, 2018 at 09:29 Type of Consult Neurology Reason for Consultation seizure Requesting Provider: MANUEL ALEMAN Date/Time of Note DATE: 10/25/18 TIME: 14:10 24 HR Interval Summary Free Text/Dictation Continues acute care. Exam Vital Signs Vitals Vital Signs Date Temp Pulse Resp B/P (MAP) Pulse Ox O2 O2 Flow FiO2 Time Delivery Rate 10/25/18 98.8 74 24 144/74 96 Room Air 11:09 (97) 10/25/18 6.0 08:00 10/22/18 28 13:33 Intake and Output 10/24/18 10/24/18 10/25/18 1515:00 23:00 07:00 IntakeIntake Total 350 ml 100 ml OutputOutput Total 700 ml 750 ml BalanceBalance -350 ml -650 ml Exam PE: Gen Appearance: Calm, NAD HEENT: Normocephalic Cardiovascular: Regular rate Abdomen: Soft Extremities: Dry NE: The patient was asleep, though arousable to voice. Moans occasionally. Able to track. Unable to follow commands. Cranial nerve examination was limited by mental status. Pupils were equal and reactive to light. There was no afferent pupillary defect. Funduscopic examination was limited. Face was grossly symmetric, w/ present corneal and cough reflexes. Tone was slightly increased in her LUE. Muscle bulk was normal. No fasciculations were noted. The patient withdrew all extremities. Coordination and gait testing was limited by mental status. Arm and leg reflexes were symmetric. Beck's sign was absent. Plantar response s were flexor. CHEYENNE JEAN NP Oct 25, 2018 14:10 FROYLAN WOOD Oct 25, 2018 19:51
--- NOTE | 2018-10-25 15:59 | CONS ---
Assessment/Plan Assessment/Plan Hospital Course (Demo Recall) IMP: 1. Nstemi- in setting of renal failure and shock. Downtrended 2.Shock-improved off pressors with actual HTN now 3.Tachycardia-S tach at this time 4.UTI 5.PAF with RVR-now back in SR this AM 6.Renal failure 7.Dyslipidemia 8.Sz d/o 9. Hypothyroid 10. anemia-s/p transfusions 11. Resp failure s/p extubation this am Recc: -Tele -Contineu current BB/hydralazine -Follow rhythm and rate closely -Continue abx's and f/u cx data -Continue statin -now in SR on po amio. Will follow rhythm clsoely -Lovenox BID with asa held. ? if ok to continue lovenox for AF given seizure -follow resp status and volume status closely -Continue keppra Consultation Date/Type/Reason Admit Date/Time Oct 06, 2018 at 09:29 Initial Consult Date 10/06/18 Type of Consult Cardiology Reason for Consultation AF Requesting Provider: MANUEL ALEMAN Date/Time of Note DATE: 10/25/18 TIME: 15:55 Exam/Review of Systems Vital Signs Vitals Vital Signs Date Temp Pulse Resp B/P (MAP) Pulse Ox O2 O2 Flow FiO2 Time Delivery Rate 10/25/18 51 15:39 10/25/18 97.8 16 130/79 96 Room Air 14:50 (96) 10/25/18 6.0 08:00 10/22/18 28 13:33 Intake and Output 10/24/18 10/24/18 10/25/18 1414:59 22:59 06:59 IntakeIntake Total 350 ml 100 ml OutputOutput Total 700 ml 750 ml BalanceBalance -350 ml -650 ml Exam Exam Review of Systems: CONSTITUTIONAL: No fevers, chills. PULMONARY: No sob CARDIOVASCULAR: No chest pain/palpitations GASTROINTESTINAL: No nausea/vomiting. GENITOURINARY: No hematuria/dysuria. MUSCULOSKELETAL: No myagias/arthalgias. PSYCHIATRIC: The patient denies depression. NEUROLOGIC: lethargic Constitutional: alert Psych: no complaints Head: normocephalic ENMT: mucosa pink and moist Neck: supple, jvd (9 cm water) Respiratory: diminished breath sounds Cardiovascular: regular rate and rhythm Gastrointestinal: soft, non-tender Musculoskeletal: muscle tone (normal) Extremities: edema (none) Neurological: other (No focal deficits) Labs Result Diagram: 10/23/18 0610/23/18 0621 Results 24hrs Laboratory Tests Test 10/24/18 20:13 10/25/18 05:29 Prothrombin Time 14.9 Prothrombin Time Ratio 1.2 INR International Normalized Ratio 1.16 Valproic Acid (Depakene) Level 92 Medications Medications Current Medications IV Flush (NS 3 ml) 3 ml PER PROTOCOL IV ; Start 10/06/18 at 09:30 Ondansetron HCl (Zofran Inj) 4 mg Q6H PRN IV NAUSEA/VOMITING; Start 10/06/18 at 09:30 Acetaminophen (Tylenol Tab) 650 mg Q6H PRN PO .PAIN 1-3 OR TEMP Last administered on 10/12/18at 08:27; Admin Dose 650 MG; Start 10/06/18 at 09:30 Acetaminophen/ Hydrocodone Bitart ([place] (5/325)) 1 tab Q6H PRN PO .MOD PAIN 4- 6; Start 10/06/18 at 09:30 Docusate Sodium (Colace) 100 mg Q12H PRN PO .CONSTIPATION; Start 10/06/18 at 09:30 Magnesium Hydroxide (Milk Of Mag) 30 ml DAILY PRN PO .CONSTIPATION; Start 10/06/18 at 09:30 Albuterol/ Ipratropium (Duoneb) 3 ml Q4H RESP THERAPY PRN HHN SHORTNESS OF BREATH Last administered on 10/23/18at 16:18; Admin Dose 3 ML; Start 10/06/18 at 09:30 Nitroglycerin (Nitroglycerin (Sl Tab) 0.4 Mg) 1 tab Q5M PRN SL ANGINA; Start 10/06/18 at 09:30 Bisacodyl (Dulcolax) 10 mg DAILY PRN PO CONSTIPATION; Start 10/06/18 at 09:30 Donepezil HCl (Aricept) 5 mg QHS PO Last administered on 10/24/18at 20:09; Admin Dose 5 MG; Start 10/06/18 at 21:00 Lactulose (Enulose) 20 gm TID PRN PO CONSTIPATION; Start 10/06/18 at 09:30 Levothyroxine Sodium (Synthroid) 50 mcg BEFORE BREAKFAST PO Last administered on 10/25/18 09:18; Admin Dose 50 MCG; Start 10/07/18 at 07:00 Mineral Oil (Fleet Mineral Oil Enema) 133 ml DAILY PRN [place] CONSTIPATION; Start 10/06/18 at 09:30 Multivitamins Therapeutic (Theragran) 1 tab DAILY PO Last administered on 10/05 09:24; Admin Dose 1 TAB; Start 10/07/18 at 09:00 Aspirin (Aspirin) 81 mg DAILY NGT Last administered on 10/11/18 09:35; Admin Dose 81 MG; Start 10/06/18 at 12:30; Status Hold Atorvastatin Calcium (Lipitor) 40 mg DAILY@21 NGT Last administered on 10/24/18 20:10; Admin Dose 40 MG; Start 10/06/18 at 21:00 Miscellaneous Information (Flu Vaccine Previously Dispensed) FLU VACCINE PREVIOU... NOTE PRN XX NOTE; Start 10/06/18 at 18:00 Amiodarone HCl (Cordarone) 200 mg BID PO Last administered on 10/25/18 09:19; Admin Dose 200 MG; Start 10/09/18 at 21:00 Famotidine (Pepcid) 20 mg DAILY NGT Last administered on 10/25/18 09:20; Admin Dose 20 MG; Start 10/10/18 at 09:00 Polyethylene Glycol (Miralax) 17 gm BID PRN PO constipation; Start 10/10/18 at 22:00 Metoprolol Tartrate (Lopressor) 25 mg BID PO Last administered on 10/25/18 09:20; Admin Dose 25 MG; Start 10/12/18 at 15:00 Metoprolol Tartrate (Lopressor) 5 mg Q4H PRN IV HR>110 Hold SBP<100 Last administered on 10/20/18 11:40; Admin Dose 5 MG; Start 10/12/18 at 15:00 Levetiracetam (Keppra Liquid) 1,000 mg BID GTB Last administered on 10/25/18 09:20; Admin Dose 1,000 MG; Start 10/14/18 at 21:00 Lorazepam (Ativan) 1 mg Q4H PRN IV SEIZURES Last administered on 10/23/18 04:29; Admin Dose 1 MG; Start 10/16/18 at 12:00 Morphine Sulfate (morphine) 1 mg Q4H PRN IV .SEVERE PAIN 7-10 Last administered on 10/22/18at 04:15; Admin Dose 1 MG; Start 10/16/18 at 15:45 Epoetin Nile (Epogen (Non Esrd/Non Oncology)) 6,000 units MoWeFr@17 SC Last administered on 10/23/18 17:06; Admin Dose 6,000 UNITS; Start 10/18/18 at 17:00 Furosemide (Lasix) 20 mg DAILY@0600 IV Last administered on 10/23/18 06:00; Admin Dose 20 MG; Start 10/18/18 at 12:30 Quetiapine Fumarate (Seroquel) 12.5 mg QID PRN NGT anxiety/agitation Last administered on 10/23/18at 12:08; Admin Dose 12.5 MG; Start 10/18/18 at 14:30 Quetiapine Fumarate (Seroquel) 12.5 mg QHS NGT Last administered on 10/24/18 20:10; Admin Dose 12.5 MG; Start 10/19/18 at 21:00 Hydralazine HCl (Apresoline) 25 mg Q6 NGT Last administered on 10/25/18 09:19; Admin Dose 25 MG; Start 10/20/18 at 12:00 Hydralazine HCl (Apresoline) 5 mg Q8H PRN IV sbp >160; Start 10/20/18 at 12:00 Miscellaneous Information (Pending [facility] Order For Wound Care) This patient martin... PRN PRN XX WOUND CARE; Start 10/21/18 at 07:30 Valproate Sodium (Depakene Liquid Cup) 1,000 mg Q8 GTB Last administered on 10/24/18 22:52; Admin Dose 1,000 MG; Start 10/22/18 at 22:00 Enoxaparin Sodium (Lovenox) 70 mg BID SC Last administered on 10/24/18at 20:18; Admin Dose 70 MG; Start 10/23/18 at 21:00 ANGELA CARY Oct 25, 2018 15:59
--- NOTE | 2018-10-25 16:08 | PN ---
Date/Time of Note Date/Time of Note DATE: 10/25/18 TIME: 16:06 Assessment/Plan VTE Prophylaxis Risk score (from Ns)>0 risk: 4 SCD applied (from Ns): Yes Pharmacological prophylaxis: LMWH Lines/Catheters IV [facility]from [facility] Peripheral IV Urinary Cath still in place: Yes Reason Cath still needed: pres ulcer contaminated by urine Assessment/Plan Assessment/Plan 67-year-old female coming in with signs of septic shock, likely secondary to urinary tract infection and pneumonia, elevated troponins, acute renal insufficiency, now intubated on pressor support. Also presented with atrial fibrillation with rapid ventricular response, now in normal sinus rhythm. #Septic shock and respiratory failure - resolved -ID Dr. Sanford following - Likely due to UTI - Urine cultures and Blood cultures growing E Coli x2 -has been off vasopressor support. -Patient extubated 10/18 -Continue current broad-spectrum antibiotics, Tylenol p.r.n. pain and fevers. -Follow pulmonary recommendations #Seizure - Morning of 10/08 had whole body twitching concerning for seizures; got Ativan then Versed. Again on 10/11 had a similar episode broken with Ativan -10/08/18 EEG appears to have localized lesion but CT head is negative. Repeat EEG from 10/15/18 results noted, neuro following. - Continue keppra, valproic acid, follow-up neurology recommendations - Holding versed, but continue Ativan as needed - Low-dose Seroquel as needed for agitation # NSTEMI - Unclear if this is true non-ST elevation myocardial infarction versus demand ischemia- s/p heparin gtt earlier this admission. - Continue high dose aspirin. - Continue Lipitor. - Cardiology Dr. Mello consulted, follow-up their recommendations -continue medical management #A fib with RVR, paroxysmal-stable, Dr. Mello following- Converted to normal sinus after getting Cardizem in ED-apparently went back in A fib later, now the last few days has been in normal sinus rhythm -Monitor heart rate for now, follow cardiology recommendations -Continue p.o. beta-panda and p.o. amiodarone for now # Renal insufficiency - improving- Not anuric - Dr. Davila consulted, monitor for now # Hypothyroidism - Continue current thyroid medicines. - Low TSH, normal fT4 consistent with sick euthyroid syndrome. # History of dementia. - Continue Aricept for now. - Spoke to Valentina GILLILAND at SNF. Prior to admission, patient was able to walk assisted, feed self, say simple words like "bathroom" and "pain". Not oriented to name, location, time. - PEG placement 10/25. # History of high cholesterol. - Cont statin #Anemia: Probably anemia of chronic disease #Hypernatremia: Resolved now -Monitor, continue current IV fluids # Gastrointestinal prophylaxis- H2 panda. # Deep venous thrombosis prophylaxis - due to anemia- SCDs Dispo: This is a severely disabled woman as documented on prior admissions with minimal level of function. She is currently lying in bed, able to moan, not dem onstrating any movement of limbs. Also currently unable to swallow. Per most recent bioethics discussion, will proceed with PEG. Result Diagram: 10/23/1862010/23/18620 Subjective 24 Hr Interval Summary Free Text/Dictation Placed on 6L oxygen facemask for unclear reasons last night. Oral secretions slightly bloody today. Also had an episode of hematuria yesterday. PEG placement per Dr. Abdi today. Exam/Review of Systems Exam Vitals Vital Signs Date Temp Pulse Resp B/P (MAP) Pulse Ox O2 O2 Flow FiO2 Time Delivery Rate 10/25/18 51 15:39 10/25/18 97.8 16 130/79 96 Room Air 14:50 (96) 10/25/18 6.0 08:00 10/22/18 28 13:33 Intake and Output 10/24/18 10/24/18 10/25/18 1515:00 23:00 07:00 IntakeIntake Total 350 ml 100 ml OutputOutput Total 700 ml 750 ml BalanceBalance -350 ml -650 ml Exam GENERAL: lying in bed, opens eyes to voice and moans occasionally HEENT: Moist mucous membranes NECK: Supple, no thyromegaly. LUNGS: Mechanical breath sounds equal bilaterally. CARDIOVASCULAR: S1, S2 heard. No rubs or gallops. ABDOMEN: Soft, nontender, nondistended. Normal bowel sounds. No rebound or guarding. MUSCULOSKELETAL: No lower extremity edema bilaterally. Results Results 24hrs Laboratory Tests Test 10/24/18 20:13 10/25/18 05:29 Prothrombin Time 14.9 Prothrombin Time Ratio 1.2 INR International Normalized Ratio 1.16 Valproic Acid (Depakene) Level 92 Medications Medication Current Medications IV Flush (NS 3 ml) 3 ml PER PROTOCOL IV ; Start 10/06/18 at 09:30 Ondansetron HCl (Zofran Inj) 4 mg Q6H PRN IV NAUSEA/VOMITING; Start 10/06/18 at 09:30 Acetaminophen (Tylenol Tab) 650 mg Q6H PRN PO .PAIN 1-3 OR TEMP Last administered on 10/12/18at 08:27; Admin Dose 650 MG; Start 10/06/18 at 09:30 Acetaminophen/ Hydrocodone Bitart ([place] (5/325)) 1 tab Q6H PRN PO .MOD PAIN 4- 6; Start 10/06/18 at 09:30 Docusate Sodium (Colace) 100 mg Q12H PRN PO .CONSTIPATION; Start 10/06/18 at 09:30 Magnesium Hydroxide (Milk Of Mag) 30 ml DAILY PRN PO .CONSTIPATION; Start 10/06/18 at 09:30 Albuterol/ Ipratropium (Duoneb) 3 ml Q4H RESP THERAPY PRN HHN SHORTNESS OF BREATH Last administered on 10/23/18at 16:18; Admin Dose 3 ML; Start 10/06/18 at 09:30 Nitroglycerin (Nitroglycerin (Sl Tab) 0.4 Mg) 1 tab Q5M PRN SL ANGINA; Start 10/06/18 at 09:30 Bisacodyl (Dulcolax) 10 mg DAILY PRN PO CONSTIPATION; Start 10/06/18 at 09:30 Donepezil HCl (Aricept) 5 mg QHS PO Last administered on 10/24/18at 20:09; Admin Dose 5 MG; Start 10/06/18 at 21:00 Lactulose (Enulose) 20 gm TID PRN PO CONSTIPATION; Start 10/06/18 at 09:30 Levothyroxine Sodium (Synthroid) 50 mcg BEFORE BREAKFAST PO Last administered on 10/25/18at 09:18; Admin Dose 50 MCG; Start 10/07/18 at 07:00 Mineral Oil (Fleet Mineral Oil Enema) 133 ml DAILY PRN [place] CONSTIPATION; Start 10/06/18 at 09:30 Multivitamins Therapeutic (Theragran) 1 tab DAILY PO Last administered on 10/25/18at 09:24; Admin Dose 1 TAB; Start 10/07/18 at 09:00 Aspirin (Aspirin) 81 mg DAILY NGT Last administered on 10/11/18 09:35; Admin Dose 81 MG; Start 10/06/18 at 12:30; Status Hold Atorvastatin Calcium (Lipitor) 40 mg DAILY@21 NGT Last administered on 10/24/18 20:10; Admin Dose 40 MG; Start 10/06/18 at 21:00 Miscellaneous Information (Flu Vaccine Previously Dispensed) FLU VACCINE PREVIOU... NOTE PRN XX NOTE; Start 10/06/18 at 18:00 Amiodarone HCl (Cordarone) 200 mg BID PO Last administered on 10/25/18 09:19; Admin Dose 200 MG; Start 10/09/18 at 21:00 Famotidine (Pepcid) 20 mg DAILY NGT Last administered on 10/25/18 09:20; Admin Dose 20 MG; Start 10/10/18 at 09:00 Polyethylene Glycol (Miralax) 17 gm BID PRN PO constipation; Start 10/10/18 at 22:00 Metoprolol Tartrate (Lopressor) 25 mg BID PO Last administered on 10/25/18 09:20; Admin Dose 25 MG; Start 10/12/18 at 15:00 Metoprolol Tartrate (Lopressor) 5 mg Q4H PRN IV HR>110 Hold SBP<100 Last administered on 10/20/18 11:40; Admin Dose 5 MG; Start 10/12/18 at 15:00 Levetiracetam (Keppra Liquid) 1,000 mg BID GTB Last administered on 10/25/18 09:20; Admin Dose 1,000 MG; Start 10/14/18 at 21:00 Lorazepam (Ativan) 1 mg Q4H PRN IV SEIZURES Last administered on 10/23/18 04:29; Admin Dose 1 MG; Start 10/16/18 at 12:00 Morphine Sulfate (morphine) 1 mg Q4H PRN IV .SEVERE PAIN 7-10 Last administered on 10/22/18 04:15; Admin Dose 1 MG; Start 10/16/18 at 15:45 Epoetin Nile (Epogen (Non Esrd/Non Oncology)) 6,000 units MoWeFr@17 SC Last administered on 3/20/19at 17:06; Admin Dose 6,000 UNITS; Start 10/18/18 at 17:00 Furosemide (Lasix) 20 mg DAILY@0600 IV Last administered on 10/23/18at 06:00; Admin Dose 20 MG; Start 10/18/18 at 12:30 Quetiapine Fumarate (Seroquel) 12.5 mg QID PRN NGT anxiety/agitation Last administered on 10/23/18 12:08; Admin Dose 12.5 MG; Start 10/18/18 at 14:30 Quetiapine Fumarate (Seroquel) 12.5 mg QHS NGT Last administered on 10/24/18 20:10; Admin Dose 12.5 MG; Start 10/19/18 at 21:00 Hydralazine HCl (Apresoline) 25 mg Q6 NGT Last administered on 10/25/18 09:19; Admin Dose 25 MG; Start 10/20/18 at 12:00 Hydralazine HCl (Apresoline) 5 mg Q8H PRN IV sbp >160; Start 10/20/18 at 12:00 [facility] This patient martin... PRN PRN XX WOUND CARE; Start 10/21/18 at 07:30 Valproate Sodium (Depakene Liquid Cup) 1,000 mg Q8 GTB Last administered on 10/24/18at 22:52; Admin Dose 1,000 MG; Start 10/22/18 at 22:00 Enoxaparin Sodium (Lovenox) 70 mg BID SC Last administered on 10/24/18 20:18; Admin Dose 70 MG; Start 10/23/18 at 21:00 ANGELA MOSQUERA MD Oct 25, 2018 16:08
--- NOTE | 2018-10-25 16:22 | HPN ---
Date/Time of Note Date/Time of Note DATE: 10/25/18 TIME: 16:22 Interval H&P Admission Note Pt. seen H&P reviewed: No system changes KURT BETTS Oct 25, 2018 16:22
--- NOTE | 2018-10-25 16:23 | PREAC ---
Date/Time of Note Date/Time of Note DATE: 10/25/18 TIME: 16:21 Anesthesia Eval and Record Evaluation Time Pre-Procedure Interview DATE: 10/25/18 TIME: 16:20 Age 67 Sex female NPO: 8 hrs Preoperative diagnosis dyspphagia Planned procedure PEG placement Past Medical History Past Medical History: Includes Cardio: HTN, CAD, Other (Afib) Neuro: Seizure disorder Surgery & Anesthesia Issues No known issue Meds Anticoagulation: No Beta Pipo within 24 hr: Yes Reason Beta Pipo not given: Pt. 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 08/31/18 Reported Medications Donepezil* (Donepezil*) 5 Mg Tablet, 5 MG PO QHS, #30 TAB 08/28/18 Divalproex Sodium* (Depakote*) 500 Mg Tablet.dr, 500 MG PO BID, #120 TAB 08/28/18 Docusate Sodium* (Colace*) 100 Mg Capsule, 100 MG PO BID PRN for CONSTIPATION, #60 CAP 08/28/18 Atorvastatin Calcium (Atorvastatin Calcium) 10 Mg Tablet, 10 MG PO QHS, #30 TAB 08/28/18 Lorazepam* (Lorazepam*) 1 Mg Tablet, 1 MG PO BID PRN for ANXIETY, #30 TAB 08/28/18 Lactulose* (Lactulose*) 20 Gm/30 Ml Solution, 20 GM PO TID PRN for CONSTIPATION, ML 08/28/18 Trazodone Hcl* (Trazodone Hcl*) 100 Mg Tablet, 100 MG PO QHS, #30 TAB 08/28/18 Quetiapine Fumarate* (Seroquel*) 200 Mg Tablet, 200 MG PO HS, #30 TAB 08/28/18 Sennosides* (Senna Lax*) 8.6 Mg Tablet, 2 TAB PO QHS PRN for CONSTIPATION, TAB 08/28/18 Multivitamins* (Theragran*) 1 Tab Tab, 1 TAB PO DAILY, TAB 08/28/18 Polyethylene Glycol* (Miralax*) 17 Gm Powd.pack, 17 GM PO BID, #60 PACKET 08/28/18 Metoprolol Tartrate* (Lopressor*) 25 Mg Tab, 12.5 MG PO DAILY, #60 TAB HOLD IF SBP<115 OR HR<60 08/28/18 Levothyroxine Sodium* (Levothyroxine Sodium*) 50 Mcg Tablet, 50 MCG PO BEFORE BREAKFAST, #30 TAB 08/28/18 Levetiracetam* (Keppra*) 500 Mg Tablet, 500 MG PO BID, TAB 08/28/18 Gabapentin* (Gabapentin*) 400 Mg Capsule, 400 MG PO TID, #90 CAP 08/28/18 Phenylephrine HCl/[place] Butter* (Preparation H* Suppository) 1 Each Supp.rect, 1 EACH NE DAILY PRN for CONSTIPATION, SUPP.RECT 08/28/18 Mineral Oil* (Fleet* Mineral Oil Enema) 133 Ml Oil, 133 ML NE DAILY PRN for CONSTIPATION, ENEMA 08/28/18 Acetaminophen* (Acetaminophen*) 650 Mg Tablet, 650 MG PO DAILY PRN for PAIN AND OR ELEVATED TEMP, #30 TAB 08/28/18 Bisacodyl* (Bisacodyl*) 5 Mg Tablet.dr, 10 MG PO DAILY PRN for CONSTIPATION, TAB 08/28/18 Current Medications IV Flush (NS 3 ml) 3 ml PER PROTOCOL IV ; Start 10/06/18 at 09:30 Ondansetron HCl (Zofran Inj) 4 mg Q6H PRN IV NAUSEA/VOMITING; Start 10/06/18 at 09:30 Acetaminophen (Tylenol Tab) 650 mg Q6H PRN PO .PAIN 1-3 OR TEMP Last administered on 10/12/18at 08:27; Admin Dose 650 MG; Start 10/06/18 at 09:30 Acetaminophen/ Hydrocodone Bitart ([place] (5/325)) 1 tab Q6H PRN PO .MOD PAIN 4- 6; Start 10/06/18 at 09:30 Docusate Sodium (Colace) 100 mg Q12H PRN PO .CONSTIPATION; Start 10/06/18 at 09:30 Magnesium Hydroxide (Milk Of Mag) 30 ml DAILY PRN PO .CONSTIPATION; Start 10/06/18 at 09:30 Albuterol/ Ipratropium (Duoneb) 3 ml Q4H RESP THERAPY PRN HHN SHORTNESS OF BREATH Last administered on 10/23/18 16:18; Admin Dose 3 ML; Start 10/06/18 at 09:30 Nitroglycerin (Nitroglycerin (Sl Tab) 0.4 Mg) 1 tab Q5M PRN SL ANGINA; Start 10/06/18 at 09:30 Bisacodyl (Dulcolax) 10 mg DAILY PRN PO CONSTIPATION; Start 10/06/18 at 09:30 Donepezil HCl (Aricept) 5 mg QHS PO Last administered on 10/24/18 20:09; Admin Dose 5 MG; Start 10/06/18 at 21:00 Lactulose (Enulose) 20 gm TID PRN PO CONSTIPATION; Start 10/06/18 at 09:30 Levothyroxine Sodium (Synthroid) 50 mcg BEFORE BREAKFAST PO Last administered on 10/25/18 09:18; Admin Dose 50 MCG; Start 10/07/18 at 07:00 Mineral Oil (Fleet Mineral Oil Enema) 133 ml DAILY PRN [place] CONSTIPATION; Start 10/06/18 at 09:30 Multivitamins Therapeutic (Theragran) 1 tab DAILY PO Last administered on 10/25/18 09:24; Admin Dose 1 TAB; Start 10/07/18 at 09:00 Aspirin (Aspirin) 81 mg DAILY NGT Last administered on 10/11/18 09:35; Admin Dose 81 MG; Start 10/06/18 at 12:30; Status Hold Atorvastatin Calcium (Lipitor) 40 mg DAILY@21 NGT Last administered on 10/24/18at 20:10; Admin Dose 40 MG; Start 10/06/18 at 21:00 Miscellaneous Information (Flu Vaccine Previously Dispensed) FLU VACCINE PREVIOU... NOTE PRN XX NOTE; Start 10/06/18 at 18:00 Amiodarone HCl (Cordarone) 200 mg BID PO Last administered on 10/25/18 09:19; Admin Dose 200 MG; Start 10/09/18 at 21:00 Famotidine (Pepcid) 20 mg DAILY NGT Last administered on 10/25/18 09:20; Admin Dose 20 MG; Start 10/10/18 at 09:00 Polyethylene Glycol (Miralax) 17 gm BID PRN PO constipation; Start 10/10/18 at 22:00 Metoprolol Tartrate (Lopressor) 25 mg BID PO Last administered on 10/25/18 09:20; Admin Dose 25 MG; Start 10/12/18 at 15:00 Metoprolol Tartrate (Lopressor) 5 mg Q4H PRN IV HR>110 Hold SBP<100 Last administered on 10/20/18 11:40; Admin Dose 5 MG; Start 10/12/18 at 15:00 Levetiracetam (Keppra Liquid) 1,000 mg BID GTB Last administered on 10/25/18 09:20; Admin Dose 1,000 MG; Start 10/14/18 at 21:00 Lorazepam (Ativan) 1 mg Q4H PRN IV SEIZURES Last administered on 10/23/18 04:29; Admin Dose 1 MG; Start 10/16/18 at 12:00 Morphine Sulfate (morphine) 1 mg Q4H PRN IV .SEVERE PAIN 7-10 Last administered on 10/22/18 04:15; Admin Dose 1 MG; Start 10/16/18 at 15:45 Epoetin Nile (Epogen (Non Esrd/Non Oncology)) 6,000 units MoWeFr@17 SC Last administered on 10/23/18 17:06; Admin Dose 6,000 UNITS; Start 10/18/18 at 17:00 Furosemide (Lasix) 20 mg DAILY@0600 IV Last administered on 10/23/18 06:00; Admin Dose 20 MG; Start 10/18/18 at 12:30 Quetiapine Fumarate (Seroquel) 12.5 mg QID PRN NGT anxiety/agitation Last administered on 10/23/18at 12:08; Admin Dose 12.5 MG; Start 10/18/18 at 14:30 Quetiapine Fumarate (Seroquel) 12.5 mg QHS NGT Last administered on 10/24/18at 20:10; Admin Dose 12.5 MG; Start 10/19/18 at 21:00 Hydralazine HCl (Apresoline) 25 mg Q6 NGT Last administered on 10/25/18 09:19; Admin Dose 25 MG; Start 10/20/18 at 12:00 Hydralazine HCl (Apresoline) 5 mg Q8H PRN IV sbp >160; Start 10/20/18 at 12:00 Miscellaneous Information (Pending [facility] Order For Wound Care) This patient martin. .. PRN PRN XX WOUND CARE; Start 10/21/18 at 07:30 Valproate Sodium (Depakene Liquid Cup) 1,000 mg Q8 GTB Last administered on 10/24/18at 22:52; Admin Dose 1,000 MG; Start 10/22/18 at 22:00 Enoxaparin Sodium (Lovenox) 70 mg BID SC Last administered on 10/24/18at 20:18; Admin Dose 70 MG; Start 10/23/18 at 21:00 Meds reviewed: Yes Allergies Coded Allergies: Penicillins (Verified Allergy, Unknown, 08/28/18) Sulfa (Sulfonamide Antibiotics) (Verified Allergy, Unknown, 08/28/18) clindamycin (Verified Allergy, Unknown, 08/28/18) ketorolac (Verified Allergy, Unknown, 08/28/18) lactase (Verified Allergy, Unknown, 08/28/18) Uncoded Allergies: TRYPTOPHAN (Allergy, Unknown, 08/28/18) Allergies Reviewed: Yes Labs/Studies Labs Reviewed: Reviewed by anesthesiologist Result Diagram: 10/23/1862010/23/18620 test: N/A Studies: ECG (afib), CXR (consilidation PE) Pre-procedure Exam Last vitals Vital Signs Date Temp Pulse Resp B/P (MAP) Pulse Ox O2 O2 Flow FiO2 Time Delivery Rate 10/25/18 51 15:39 10/25/18 97.8 16 130/79 96 Room Air 14:50 (96) 10/25/18 6.0 08:00 10/22/18 28 13:33 Airway: Adequate mouth opening Mallampati: Mallampati I Teeth: Abnormal Lung: Abnormal (on O2mask) Heart: Abnormal ASA Physical Status ASA physical status: 3 Emergency: None Planned Anesthetic General/MAC: MAC Planned Pain Management Parenteral pain med Pre-operative Attestations Prior to commencing anesthesia and surgery, the patient was re-evaluated, there was verification of: *The patient's identity *The results of appropriate recent lab work and preoperative vital signs *The above evaluation not changing prior to induction *Anesthetic plan, risk benefits, alternative and complications discussed with patient/family; questions answered; patient/family understands, accepts and wishes to proceed. MERCY MARIA MD Oct 25, 2018 16:23
[2018-10-25] MEDS ORDERED: ESMOLOL 10 ML ONE (16:24)
[2018-10-25] MEDS ORDERED: FENTAnyl 50 MCG/ML VIAL ONE (16:24)
[2018-10-25] MEDS ORDERED: LABETALOL HCL 20MG INJ ONE (16:24)
[2018-10-25] MEDS ORDERED: PROPOFOL 20 ML ONE (16:24)
[2018-10-25] MEDS ORDERED: PHENYLephrine (100 MCG/ML) 10ML SYG ONE (16:52)
[2018-10-25] MEDS ORDERED: LIDOCAINE 100 MG SYRINGE ONE (17:23)
--- NOTE | 2018-10-25 17:39 | PAC ---
Date/Time of Note Date/Time of Note DATE: 10/25/18 TIME: 17:37 Post-Anesthesia Notes Post-Anesthesia Note Last documented vital signs Vital Signs Date Temp Pulse Resp B/P (MAP) Pulse Ox O2 O2 Flow FiO2 Time Delivery Rate 10/25/18 98.6 130 19 121/65 98 mask 8 17:25 10/25/18 97.8 16 130/79 96 Room Air 14:50 (96) 10/25/18 6.0 08:00 10/22/18 28 13:33 Activity: WNL Respiratory function: WNL Cardiovascular function: WNL Mental status: Baseline Pain reasonably controlled: Yes Hydration appropriate: Yes Nausea/Vomiting absent: No MERCY MARIA MD Oct 25, 2018 17:39
[2018-10-25] MEDS ORDERED: DIGOXIN 500 MCG INJ IV ONE (18:00)
[2018-10-25] MEDS: ENOXAPARIN 80 MG/0.8 ML SYG SC SCH ×2 (18:17→20:20)
[2018-10-25] MEDS: EPOETIN 3000 UNITS/ML (NON ESRD/NON ONCOLOGY) SC SCH (18:23)
[2018-10-25] MEDS: ACETAMINOPHEN 325 MG TAB PO PRN (20:56)
[2018-10-25] MEDS: QUETIAPINE 25 MG TAB NGT SCH (20:56)
[2018-10-25] MEDS: ATORVASTATIN 40 MG TAB NGT SCH (20:58)
[2018-10-25] MEDS: DONEPEZIL 5 MG TAB PO SCH (20:58)
[2018-10-26] VITALS (13 sets, daily range): BP systolic 79–180; BP diastolic 46–84; PULSE 60–81; RESP 15–20
[2018-10-26] MEDS ORDERED: SOD CHLORIDE 0.9% 1,000 ML IV ONE (00:30)
[2018-10-26] MEDS: FUROSEMIDE 20 MG INJ IV SCH (05:24)
[2018-10-26] MEDS: VALPROIC ACID LIQUID CUP 250 MG/5 ML CUP GTB SCH ×3 (05:25→21:49)
[2018-10-26] MEDS: LEVOTHYROXINE 50 MCG TAB PO SCH (06:42)
[2018-10-26] MEDS: MULTIVITAMINS THERAPEUTIC TAB PO SCH (08:46)
[2018-10-26] MEDS: LEVETIRACETAM (100 MG/ML) 5ML CUP GTB SCH ×2 (08:46→21:49)
[2018-10-26] MEDS: FAMOTIDINE 20 MG TAB NGT SCH (08:46)
[2018-10-26] MEDS: METOPROLOL 25 MG TAB PO SCH ×2 (08:47→21:52)
[2018-10-26] MEDS: AMIODARONE 200 MG TAB PO SCH ×2 (08:48→21:53)
[2018-10-26] MEDS: BALSAM PERU/CASTOR OIL 60 GM TUBE TOP SCH (08:48)
[2018-10-26] MEDS: ENOXAPARIN 80 MG/0.8 ML SYG SC SCH ×2 (09:09→22:07)
[2018-10-26] MEDS: LORAZEPAM 2 MG INJ IV PRN (09:13)
--- NOTE | 2018-10-26 12:27 | CONS ---
Consultation Date/Type/Reason Admit Date/Time Oct 06, 2018 at 09:29 Initial Consult Date SUBJECTIVE: S/P PEG placement yesterday. No fevers. Looks comfortable. VS: stable T: 98.0 LABS: reviewed. WBC- 5.5 Allergy: Penicillin, clindamycin Physical examination: GEN:Well-developed chronically ill-appearing elderly woman. The patient is in no distress. HENT: Head atraumatic normocephalic. Neck is supple. PULM: Chest rise symmetrical, breath sounds with crackles. Heart: S1-S2, tachycardic, irregular. Abdomen soft bowel sounds hypoactive. Extremities with dependent edema Assessment: 1. S/p sepsis 2. S/p E coli bacteremia secondary to urinary tract infection 3. Acute hypoxemic respiratory failure===> extubated 4. S/p Healthcare associated pneumonia, possibly aspiration 4. S/p UMBERTO 5. Non-ST elevation PR 6. Atrial fibrillation status post RVR 7. Seizures 8. Encephalopathy Plan: Patient remains unchanged. Continue present care/pulmonary toilet, aspiration precautions. S/P PEG placement yesterday. TF start today. GI and Pulm rec. Continue to monitor off of antbx. Prognosis poor Requesting Provider: MANUEL ALEMAN Date/Time of Note DATE: 10/26/18 TIME: 12:24 Exam/Review of Systems Exam Vitals Vital Signs Date Temp Pulse Resp B/P (MAP) Pulse Ox O2 O2 Flow FiO2 Time Delivery Rate 10/26/18 98.0 74 18 139/74 96 Nasal 11:19 (95) Cannula 10/26/18 3.0 08:02 10/22/18 28 13:33 Intake and Output 10/25/18 10/25/18 10/26/18 1515:00 23:00 07:00 IntakeIntake Total 100 ml 85 ml OutputOutput Total 600 ml 700 ml BalanceBalance -500 ml -615 ml Results Result Diagram: 10/26/1862710/26/18627 Results 24hrs Laboratory Tests Test 10/26/18 06:28 White Blood Count 5.5 Red Blood Count 3.55 L Hemoglobin 10.9 L Hematocrit 35.3 L Mean Corpuscular Volume 99.4 Mean Corpuscular Hemoglobin 30.7 Mean Corpuscular Hemoglobin Concent 30.9 L Red Cell Distribution Width 15.0 H Platelet Count 247 # Mean Platelet Volume 11.0 H Immature Granulocytes % 0.400 Neutrophils % 60.2 Lymphocytes % 28.3 Monocytes % 9.7 Eosinophils % 0.5 Basophils % 0.9 Nucleated Red Blood Cells % 0.0 Immature Granulocytes # 0.020 Neutrophils # 3.3 Lymphocytes # 1.6 Monocytes # 0.5 Eosinophils # 0.0 Basophils # 0.1 Nucleated Red Blood Cells # 0.0 Sodium Level 147 H Potassium Level 3.9 Chloride Level 109 Carbon Dioxide Level 26 Anion Gap 12 Blood Urea Nitrogen 39 H Creatinine 1.02 H Est Glomerular Filtrat Rate mL/min 54 L Glucose Level 97 Calcium Level 9.7 Phosphorus Level 4.4 Magnesium Level 1.9 Valproic Acid (Depakene) Level 113 H Medications Medication Current Medications IV Flush (NS 3 ml) 3 ml PER PROTOCOL IV ; Start 10/06/18 at 09:30 Ondansetron HCl (Zofran Inj) 4 mg Q6H PRN IV NAUSEA/VOMITING; Start 10/06/18 at 09:30 Acetaminophen (Tylenol Tab) 650 mg Q6H PRN PO .PAIN 1-3 OR TEMP Last administered on 10/25/18at 20:56; Admin Dose 650 MG; Start 10/06/18 at 09:30 Acetaminophen/ Hydrocodone Bitart ([place] (5/325)) 1 tab Q6H PRN PO .MOD PAIN 4- 6; Start 10/06/18 at 09:30 Docusate Sodium (Colace) 100 mg Q12H PRN PO .CONSTIPATION; Start 10/06/18 at 09:30 Magnesium Hydroxide (Milk Of Mag) 30 ml DAILY PRN PO .CONSTIPATION; Start 10/06/18 at 09:30 Albuterol/ Ipratropium (Duoneb) 3 ml Q4H RESP THERAPY PRN HHN SHORTNESS OF BREATH Last administered on 10/23/18at 16:18; Admin Dose 3 ML; Start 10/06/18 at 09:30 Nitroglycerin (Nitroglycerin (Sl Tab) 0.4 Mg) 1 tab Q5M PRN SL ANGINA; Start 10/06/18 at 09:30 Bisacodyl (Dulcolax) 10 mg DAILY PRN PO CONSTIPATION; Start 10/06/18 at 09:30 Donepezil HCl (Aricept) 5 mg QHS PO Last administered on 10/25/18 20:58; Admin Dose 5 MG; Start 10/06/18 at 21:00 Lactulose (Enulose) 20 gm TID PRN PO CONSTIPATION; Start 10/06/18 at 09:30 Levothyroxine Sodium (Synthroid) 50 mcg BEFORE BREAKFAST PO Last administered on 10/26/18 06:42; Admin Dose 50 MCG; Start 10/07/18 at 07:00 Mineral Oil (Fleet Mineral Oil Enema) 133 ml DAILY PRN [place] CONSTIPATION; Start 10/06/18 at 09:30 Multivitamins Therapeutic (Theragran) 1 tab DAILY PO Last administered on 10/26/18 08:46; Admin Dose 1 TAB; Start 10/07/18 at 09:00 Aspirin (Aspirin) 81 mg DAILY NGT Last administered on 10/11/18 09:35; Admin Dose 81 MG; Start 10/06/18 at 12:30; Status Hold Atorvastatin Calcium (Lipitor) 40 mg DAILY@21 NGT Last administered on 10/25/18 20:58; Admin Dose 40 MG; Start 10/06/18 at 21:00 Miscellaneous Information (Flu Vaccine Previously Dispensed) FLU VACCINE PREVIOU... NOTE PRN XX NOTE; Start 10/06/18 at 18:00 Amiodarone HCl (Cordarone) 200 mg BID PO Last administered on 10/26/18 08:48; Admin Dose 200 MG; Start 10/09/18 at 21:00 Famotidine (Pepcid) 20 mg DAILY NGT Last administered on 10/26/18 08:46; Admin Dose 20 MG; Start 10/10/18 at 09:00 Polyethylene Glycol (Miralax) 17 gm BID PRN PO constipation; Start 10/10/18 at 22:00 Metoprolol Tartrate (Lopressor) 25 mg BID PO Last administered on 10/26/18 08:47; Admin Dose 25 MG; Start 10/12/18 at 15:00 Metoprolol Tartrate (Lopressor) 5 mg Q4H PRN IV HR>110 Hold SBP<100 Last administered on 10/20/18 11:40; Admin Dose 5 MG; Start 10/12/18 at 15:00 Levetiracetam (Keppra Liquid) 1,000 mg BID GTB Last administered on 10/26/18 08:46; Admin Dose 1,000 MG; Start 10/14/18 at 21:00 Lorazepam (Ativan) 1 mg Q4H PRN IV SEIZURES Last administered on 10/26/18 09:13; Admin Dose 1 MG; Start 10/16/18 at 12:00 Morphine Sulfate (morphine) 1 mg Q4H PRN IV .SEVERE PAIN 7-10 Last administered on 10/22/18 04:15; Admin Dose 1 MG; Start 10/16/18 at 15:45 Epoetin Nile (Epogen (Non Esrd/Non Oncology)) 6,000 units MoWeFr@17 SC Last administered on 10/25/18 18:23; Admin Dose 6,000 UNITS; Start 10/18/18 at 17:00 Furosemide (Lasix) 20 mg DAILY@0600 IV Last administered on 10/26/18 05:24; Admin Dose 20 MG; Start 10/18/18 at 12:30 Quetiapine Fumarate (Seroquel) 12.5 mg QID PRN NGT anxiety/agitation Last administered on 10/23/18 12:08; Admin Dose 12.5 MG; Start 10/18/18 at 14:30 Quetiapine Fumarate (Seroquel) 12.5 mg QHS NGT Last administered on 10/25/18 20:56; Admin Dose 12.5 MG; Start 10/19/18 at 21:00 Hydralazine HCl (Apresoline) 25 mg Q6 NGT Last administered on 10/26/18 06:42; Admin Dose 25 MG; Start 10/20/18 at 12:00 Hydralazine HCl (Apresoline) 5 mg Q8H PRN IV sbp >160; Start 10/20/18 at 12:00 Miscellaneous Information (Pending [facility] Order For Wound Care) This patient martin... PRN PRN XX WOUND CARE; Start 10/21/18 at 07:30 Valproate Sodium (Depakene Liquid Cup) 1,000 mg Q8 GTB Last administered on 10/26/18 05:25; Admin Dose 1,000 MG; Start 10/22/18 at 22:00 Enoxaparin Sodium (Lovenox) 70 mg BID SC Last administered on 3/23/19at 09:09; Admin Dose 70 MG; Start 10/23/18 at 21:00 NORA BROWNLEE Oct 26, 2018 12:27
--- NOTE | 2018-10-26 12:36 | PN ---
Date/Time of Note Date/Time of Note DATE: 10/26/18 TIME: 12:33 Assessment/Plan VTE Prophylaxis Risk score (from Ns)>0 risk: 6 SCD applied (from Ns): Yes Pharmacological prophylaxis: LMWH Lines/Catheters IV [facility]from [facility] Peripheral IV Urinary Cath still in place: Yes Reason Cath still needed: pres ulcer contaminated by urine Assessment/Plan Assessment/Plan 67-year-old female coming in with signs of septic shock, likely secondary to urinary tract infection and pneumonia, elevated troponins, acute renal insufficiency, now intubated on pressor support. Also presented with atrial fibrillation with rapid ventricular response, now in normal sinus rhythm. #Septic shock and respiratory failure - resolved -ID Dr. Sanford following - Likely due to UTI - Urine cultures and Blood cultures growing E Coli x2 -has been off vasopressor support. -Patient extubated 10/18 -Continue current broad-spectrum antibiotics, Tylenol p.r.n. pain and fevers. -Follow pulmonary recommendations #Seizure - Morning of 10/08 had whole body twitching concerning for seizures; got Ativan then Versed. Again on 10/11 had a similar episode broken with Ativan -10/08/18 EEG appears to have localized lesion but CT head is negative. Repeat EEG from 10/15/18 results noted, neuro following. - Continue keppra, valproic acid, follow-up neurology recommendations - Holding versed, but continue Ativan as needed - Low-dose Seroquel as needed for agitation # NSTEMI - Unclear if this is true non-ST elevation myocardial infarction versus demand ischemia- s/p heparin gtt earlier this admission. - Continue high dose aspirin. - Continue Lipitor. - Cardiology Dr. Mello consulted, follow-up their recommendations -continue medical management #A fib with RVR, paroxysmal-stable, Dr. Mello following- Converted to normal sinus after getting Cardizem in ED-apparently went back in A fib later, now the last few days has been in normal sinus rhythm -Monitor heart rate for now, follow cardiology recommendations -Continue p.o. beta-panda and p.o. amiodarone for now # Renal insufficiency - improving- Not anuric - Dr. Davila consulted, monitor for now # Hypothyroidism - Continue current thyroid medicines. - Low TSH, normal fT4 consistent with sick euthyroid syndrome. # History of dementia. - Continue Aricept for now. - Spoke to Valentina GILLILAND at SNF. Prior to admission, patient was able to walk assisted, feed self, say simple words like "bathroom" and "pain". Not oriented to name, location, time. - PEG placement 10/25. # History of high cholesterol. - Cont statin #Anemia: Probably anemia of chronic disease #Hypernatremia: Resolved now -Monitor, continue current IV fluids # Gastrointestinal prophylaxis- H2 panda. # Deep venous thrombosis prophylaxis - due to anemia- SCDs Dispo: This is a severely disabled woman as documented on prior admissions with minimal level of function. She is currently lying in bed, able to moan, not dem onstrating any movement of limbs. Also currently unable to swallow. s/p PEG placement 10/25. Will observe for any neuro improvement over next few days then plan to transfer back to SNF. Result Diagram: 10/26/1862710/26/18627 Subjective 24 Hr Interval Summary Free Text/Dictation PEG placement yesterday. This morning patient breathing comfortably room air. Opens eyes, some tracking. Still no movement of extremities. Exam/Review of Systems Exam Vitals Vital Signs Date Temp Pulse Resp B/P (MAP) Pulse Ox O2 O2 Flow FiO2 Time Delivery Rate 10/26/18 98.0 74 18 139/74 96 Nasal 11:19 (95) Cannula 10/26/18 3.0 08:02 10/22/18 28 13:33 Intake and Output 10/25/18 10/25/18 10/26/18 1515:00 23:00 07:00 IntakeIntake Total 100 ml 85 ml OutputOutput Total 600 ml 700 ml BalanceBalance -500 ml -615 ml Exam GENERAL: lying in bed, opens eyes to voice and moans occasionally HEENT: Moist mucous membranes NECK: Supple, no thyromegaly. LUNGS: Mechanical breath sounds equal bilaterally. CARDIOVASCULAR: S1, S2 heard. No rubs or gallops. ABDOMEN: Soft, nontender, nondistended. Normal bowel sounds. No rebound or gu arding. MUSCULOSKELETAL: No lower extremity edema bilaterally. Neuro: Opens eyes spontaneously, tracking. Moans spontaneously, no words. No movement of extremities to stimulation or pain. Results Results 24hrs Laboratory Tests Test 10/26/18 06:28 White Blood Count 5.5 Red Blood Count 3.55 L Hemoglobin 10.9 L Hematocrit 35.3 L Mean Corpuscular Volume 99.4 Mean Corpuscular Hemoglobin 30.7 Mean Corpuscular Hemoglobin Concent 30.9 L Red Cell Distribution Width 15.0 H Platelet Count 247 # Mean Platelet Volume 11.0 H Immature Granulocytes % 0.400 Neutrophils % 60.2 Lymphocytes % 28.3 Monocytes % 9.7 Eosinophils % 0.5 Basophils % 0.9 Nucleated Red Blood Cells % 0.0 Immature Granulocytes # 0.020 Neutrophils # 3.3 Lymphocytes # 1.6 Monocytes # 0.5 Eosinophils # 0.0 Basophils # 0.1 Nucleated Red Blood Cells # 0.0 Sodium Level 147 H Potassium Level 3.9 Chloride Level 109 Carbon Dioxide Level 26 Anion Gap 12 Blood Urea Nitrogen 39 H Creatinine 1.02 H Est Glomerular Filtrat Rate mL/min 54 L Glucose Level 97 Calcium Level 9.7 Phosphorus Level 4.4 Magnesium Level 1.9 Valproic Acid (Depakene) Level 113 H Medications Medication Current Medications IV Flush (NS 3 ml) 3 ml PER PROTOCOL IV ; Start 10/06/18 at 09:30 Ondansetron HCl (Zofran Inj) 4 mg Q6H PRN IV NAUSEA/VOMITING; Start 10/06/18 at 09:30 Acetaminophen (Tylenol Tab) 650 mg Q6H PRN PO .PAIN 1-3 OR TEMP Last administered on 10/25/18at 20:56; Admin Dose 650 MG; Start 10/06/18 at 09:30 Acetaminophen/ Hydrocodone Bitart ([place] (5/325)) 1 tab Q6H PRN PO .MOD PAIN 4- 6; Start 10/06/18 at 09:30 Docusate Sodium (Colace) 100 mg Q12H PRN PO .CONSTIPATION; Start 10/06/18 at 09:30 Magnesium Hydroxide (Milk Of Mag) 30 ml DAILY PRN PO .CONSTIPATION; Start 10/06/18 at 09:30 Albuterol/ Ipratropium (Duoneb) 3 ml Q4H RESP THERAPY PRN HHN SHORTNESS OF BREATH Last administered on 10/23/18at 16:18; Admin Dose 3 ML; Start 10/06/18 at 09:30 Nitroglycerin (Nitroglycerin (Sl Tab) 0.4 Mg) 1 tab Q5M PRN SL ANGINA; Start 10/06/18 at 09:30 Bisacodyl (Dulcolax) 10 mg DAILY PRN PO CONSTIPATION; Start 10/06/18 at 09:30 Donepezil HCl (Aricept) 5 mg QHS PO Last administered on 10/25/18 20:58; Admin Dose 5 MG; Start 10/06/18 at 21:00 Lactulose (Enulose) 20 gm TID PRN PO CONSTIPATION; Start 10/06/18 at 09:30 Levothyroxine Sodium (Synthroid) 50 mcg BEFORE BREAKFAST PO Last administered on 10/26/18 06:42; Admin Dose 50 MCG; Start 10/07/18 at 07:00 Mineral Oil (Fleet Mineral Oil Enema) 133 ml DAILY PRN [place] CONSTIPATION; Start 10/06/18 at 09:30 Multivitamins Therapeutic (Theragran) 1 tab DAILY PO Last administered on 10/26/18 08:46; Admin Dose 1 TAB; Start 10/07/18 at 09:00 Aspirin (Aspirin) 81 mg DAILY NGT Last administered on 10/11/18 09:35; Admin Dose 81 MG; Start 10/06/18 at 12:30; Status Hold Atorvastatin Calcium (Lipitor) 40 mg DAILY@21 NGT Last administered on 10/25/18 20:58; Admin Dose 40 MG; Start 10/06/18 at 21:00 Miscellaneous Information (Flu Vaccine Previously Dispensed) FLU VACCINE PREVIOU... NOTE PRN XX NOTE; Start 10/06/18 at 18:00 Amiodarone HCl (Cordarone) 200 mg BID PO Last administered on 10/26/18 08:48; Admin Dose 200 MG; Start 10/09/18 at 21:00 Famotidine (Pepcid) 20 mg DAILY NGT Last administered on 10/26/18 08:46; Admin Dose 20 MG; Start 10/10/18 at 09:00 Polyethylene Glycol (Miralax) 17 gm BID PRN PO constipation; Start 10/10/18 at 22:00 Metoprolol Tartrate (Lopressor) 25 mg BID PO Last administered on 10/26/18 08:47; Admin Dose 25 MG; Start 10/12/18 at 15:00 Metoprolol Tartrate (Lopressor) 5 mg Q4H PRN IV HR>110 Hold SBP<100 Last administered on 10/20/18 11:40; Admin Dose 5 MG; Start 10/12/18 at 15:00 Levetiracetam (Keppra Liquid) 1,000 mg BID GTB Last administered on 10/26/18 08:46; Admin Dose 1,000 MG; Start 10/14/18 at 21:00 Lorazepam (Ativan) 1 mg Q4H PRN IV SEIZURES Last administered on 10/26/18 09:13; Admin Dose 1 MG; Start 10/16/18 at 12:00 Morphine Sulfate (morphine) 1 mg Q4H PRN IV .SEVERE PAIN 7-10 Last administered on 10/22/18 04:15; Admin Dose 1 MG; Start 10/16/18 at 15:45 Epoetin Nile (Epogen (Non Esrd/Non Oncology)) 6,000 units MoWeFr@17 SC Last administered on 10/25/18 18:23; Admin Dose 6,000 UNITS; Start 10/18/18 at 17:00 Furosemide (Lasix) 20 mg DAILY@0600 IV Last administered on 10/26/18 05:24; Admin Dose 20 MG; Start 10/18/18 at 12:30 Quetiapine Fumarate (Seroquel) 12.5 mg QID PRN NGT anxiety/agitation Last administered on 10/23/18 12:08; Admin Dose 12.5 MG; Start 10/18/18 at 14:30 Quetiapine Fumarate (Seroquel) 12.5 mg QHS NGT Last administered on 10/25/18 20:56; Admin Dose 12.5 MG; Start 10/19/18 at 21:00 Hydralazine HCl (Apresoline) 25 mg Q6 NGT Last administered on 10/26/18 06:42; Admin Dose 25 MG; Start 10/20/18 at 12:00 Hydralazine HCl (Apresoline) 5 mg Q8H PRN IV sbp >160; Start 10/20/18 at 12:00 [facility] This patient martin... PRN PRN XX WOUND CARE; Start 10/21/18 at 07:30 Valproate Sodium (Depakene Liquid Cup) 1,000 mg Q8 GTB Last administered on 3/23/19at 05:25; Admin Dose 1,000 MG; Start 10/22/18 at 22:00 Enoxaparin Sodium (Lovenox) 70 mg BID SC Last administered on 10/26/18at 09:09; Admin Dose 70 MG; Start 10/23/18 at 21:00 ANGELA MOSQUERA MD Oct 26, 2018 12:36
--- NOTE | 2018-10-26 12:42 | CONS ---
Assessment/Plan Assessment/Plan Assessment/Plan (Daily) 1. Non Oliguric Acute kidney injury due to ATN from septic shock - Improving 2. Septic shock due to UTI 3. acute UTI with Urine Cx growing E.Coli 4. Acute hypoxic respiratory failure intubated on ventilator - s/p Extubation on 10/18/18 5. H/o HTN 6 H/o HL 7. H/o Hypothyroidism 8. E.Coli bacteremia Plan: Na 147, BUN/Cr 39/1.02 - Hb 10.9 on epogen 6000 units MWF for anemia - no labs today to review yet - UO 1.3 L still intermittently confused, Bp stable s/p Bioethics meeting on 10/24/18- DNR status will follow up Patient seen in collaboration with Dr Joni Davila Consultation Date/Type/Reason Admit Date/Time Oct 06, 2018 at 09:29 Initial Consult Date 10/06/18 Type of Consult NEPHROLOGY Requesting Provider: MANUEL ALEMAN Date/Time of Note DATE: 10/26/18 TIME: 12:40 24 HR Interval Summary Free Text/Dictation -nad;confused -VSS Hb 10.9 - UO 1.3 L No new events reported last night per staff Constitutional: requiring IVF, requiring O2 Exam/Review of Systems Exam Vitals Vital Signs Date Temp Pulse Resp B/P (MAP) Pulse Ox O2 O2 Flow FiO2 Time Delivery Rate 10/26/18 98.0 74 18 139/74 96 Nasal 11:19 (95) Cannula 10/26/18 3.0 08:02 10/22/18 28 13:33 Intake and Output 10/25/18 10/25/18 10/26/18 1515:00 23:00 07:00 IntakeIntake Total 100 ml 85 ml OutputOutput Total 600 ml 700 ml BalanceBalance -500 ml -615 ml Constitutional: alert, well developed Psych: nl mood/affect, confusion Eyes: nl lids, nl sclera ENMT: nl external ears & nose Neck: non-tender Respiratory: diminished breath sounds (at bases bilaterally) Cardiovascular: nl pulses, other Gastrointestinal: soft, non-tender Musculoskeletal: muscle weakness Extremities: normal pulses Neurological: other Results Result Diagram: 10/26/1828 10/26/1828 Results 24hrs Laboratory Tests Test 10/26/18 06:28 White Blood Count 5.5 Red Blood Count 3.55 L Hemoglobin 10.9 L Hematocrit 35.3 L Mean Corpuscular Volume 99.4 Mean Corpuscular Hemoglobin 30.7 Mean Corpuscular Hemoglobin Concent 30.9 L Red Cell Distribution Width 15.0 H Platelet Count 247 # Mean Platelet Volume 11.0 H Immature Granulocytes % 0.400 Neutrophils % 60.2 Lymphocytes % 28.3 Monocytes % 9.7 Eosinophils % 0.5 Basophils % 0.9 Nucleated Red Blood Cells % 0.0 Immature Granulocytes # 0.020 Neutrophils # 3.3 Lymphocytes # 1.6 Monocytes # 0.5 Eosinophils # 0.0 Basophils # 0.1 Nucleated Red Blood Cells # 0.0 Sodium Level 147 H Potassium Level 3.9 Chloride Level 109 Carbon Dioxide Level 26 Anion Gap 12 Blood Urea Nitrogen 39 H Creatinine 1.02 H Est Glomerular Filtrat Rate mL/min 54 L Glucose Level 97 Calcium Level 9.7 Phosphorus Level 4.4 Magnesium Level 1.9 Valproic Acid (Depakene) Level 113 H Medications Medication Current Medications IV Flush (NS 3 ml) 3 ml PER PROTOCOL IV ; Start 10/06/18 at 09:30 Ondansetron HCl (Zofran Inj) 4 mg Q6H PRN IV NAUSEA/VOMITING; Start 10/06/18 at 09:30 Acetaminophen (Tylenol Tab) 650 mg Q6H PRN PO .PAIN 1-3 OR TEMP Last administered on 10/25/18at 20:56; Admin Dose 650 MG; Start 10/06/18 at 09:30 Acetaminophen/ Hydrocodone Bitart ([place] (5/325)) 1 tab Q6H PRN PO .MOD PAIN 4- 6; Start 10/06/18 at 09:30 Docusate Sodium (Colace) 100 mg Q12H PRN PO .CONSTIPATION; Start 10/06/18 at 09:30 Magnesium Hydroxide (Milk Of Mag) 30 ml DAILY PRN PO .CONSTIPATION; Start 10/06/18 at 09:30 Albuterol/ Ipratropium (Duoneb) 3 ml Q4H RESP THERAPY PRN HHN SHORTNESS OF BREATH Last administered on 10/23/18at 16:18; Admin Dose 3 ML; Start 10/06/18 at 09:30 Nitroglycerin (Nitroglycerin (Sl Tab) 0.4 Mg) 1 tab Q5M PRN SL ANGINA; Start 10/06/18 at 09:30 Bisacodyl (Dulcolax) 10 mg DAILY PRN PO CONSTIPATION; Start 10/06/18 at 09:30 Donepezil HCl (Aricept) 5 mg QHS PO Last administered on 10/25/18 20:58; Admin Dose 5 MG; Start 10/06/18 at 21:00 Lactulose (Enulose) 20 gm TID PRN PO CONSTIPATION; Start 10/06/18 at 09:30 Levothyroxine Sodium (Synthroid) 50 mcg BEFORE BREAKFAST PO Last administered on 10/26/18 06:42; Admin Dose 50 MCG; Start 10/07/18 at 07:00 Mineral Oil (Fleet Mineral Oil Enema) 133 ml DAILY PRN [place] CONSTIPATION; Start 10/06/18 at 09:30 Multivitamins Therapeutic (Theragran) 1 tab DAILY PO Last administered on 10/26/18 08:46; Admin Dose 1 TAB; Start 10/07/18 at 09:00 Aspirin (Aspirin) 81 mg DAILY NGT Last administered on 10/11/18 09:35; Admin Dose 81 MG; Start 10/06/18 at 12:30; Status Hold Atorvastatin Calcium (Lipitor) 40 mg DAILY@21 NGT Last administered on 10/25/18 20:58; Admin Dose 40 MG; Start 10/06/18 at 21:00 Miscellaneous Information (Flu Vaccine Previously Dispensed) FLU VACCINE PRE VIOU... NOTE PRN XX NOTE; Start 10/06/18 at 18:00 Amiodarone HCl (Cordarone) 200 mg BID PO Last administered on 10/26/18 08:48; Admin Dose 200 MG; Start 10/09/18 at 21:00 Famotidine (Pepcid) 20 mg DAILY NGT Last administered on 10/26/18 08:46; Admin Dose 20 MG; Start 10/10/18 at 09:00 Polyethylene Glycol (Miralax) 17 gm BID PRN PO constipation; Start 10/10/18 at 22:00 Metoprolol Tartrate (Lopressor) 25 mg BID PO Last administered on 10/26/18 08:47; Admin Dose 25 MG; Start 10/12/18 at 15:00 Metoprolol Tartrate (Lopressor) 5 mg Q4H PRN IV HR>110 Hold SBP<100 Last administered on 10/20/18 11:40; Admin Dose 5 MG; Start 10/12/18 at 15:00 Levetiracetam (Keppra Liquid) 1,000 mg BID GTB Last administered on 10/26/18 08:46; Admin Dose 1,000 MG; Start 10/14/18 at 21:00 Lorazepam (Ativan) 1 mg Q4H PRN IV SEIZURES Last administered on 10/26/18 09:13; Admin Dose 1 MG; Start 10/16/18 at 12:00 Morphine Sulfate (morphine) 1 mg Q4H PRN IV .SEVERE PAIN 7-10 Last administered on 10/22/18 04:15; Admin Dose 1 MG; Start 10/16/18 at 15:45 Epoetin Nile (Epogen (Non Esrd/Non Oncology)) 6,000 units MoWeFr@17 SC Last administered on 10/25/18 18:23; Admin Dose 6,000 UNITS; Start 10/18/18 at 17:00 Furosemide (Lasix) 20 mg DAILY@0600 IV Last administered on 10/26/18 05:24; Admin Dose 20 MG; Start 10/18/18 at 12:30 Quetiapine Fumarate (Seroquel) 12.5 mg QID PRN NGT anxiety/agitation Last admin istered on 10/23/18 12:08; Admin Dose 12.5 MG; Start 10/18/18 at 14:30 Quetiapine Fumarate (Seroquel) 12.5 mg QHS NGT Last administered on 10/25/18 20:56; Admin Dose 12.5 MG; Start 10/19/18 at 21:00 Hydralazine HCl (Apresoline) 25 mg Q6 NGT Last administered on 10/26/18 06:42; Admin Dose 25 MG; Start 10/20/18 at 12:00 Hydralazine HCl (Apresoline) 5 mg Q8H PRN IV sbp >160; Start 10/20/18 at 12:00 Miscellaneous Information (Pending [facility] Order For Wound Care) This patient martin... PRN PRN XX WOUND CARE; Start 10/21/18 at 07:30 Valproate Sodium (Depakene Liquid Cup) 1,000 mg Q8 GTB Last administered on 10/26/18at 05:25; Admin Dose 1,000 MG; Start 10/22/18 at 22:00 Enoxaparin Sodium (Lovenox) 70 mg BID SC Last administered on 10/26/18at 09:09; Admin Dose 70 MG; Start 10/23/18 at 21:00 ALEXI SINGH Oct 26, 2018 12:42
[2018-10-26] MEDS: ACETAMINOPHEN 325 MG TAB PO PRN (13:11)
--- NOTE | 2018-10-26 14:53 | PN ---
Date/Time of Note Date/Time of Note DATE: 10/26/18 TIME: 14:33 Assessment/Plan VTE Prophylaxis Risk score (from Ns)>0 risk: 6 SCD applied (from Ns): Yes Pharmacological prophylaxis: heparin Lines/Catheters IV C[facility]ter Type (from [facility]): Peripheral IV Urinary Cath still in place: Yes Reason Cath still needed: other (indicate) (I and O) Assessment/Plan Assessment/Plan Assessment: Dysphagia Status post PEG placement 10/25/2018 NSTEMI Cardiac shock, now off pressors. Afib RVR Renal failure Respiratory failure, extubated. Seizure disorder Plan: Continue tube feeding PEG care per protocol With no further recommendations GI will sign off Patient seen in collaboration with Subjective: Patient remains unresponsive, moaning. G-tube site is clear of drainage. Continues tube feeding in progress, tolerated well with minimal residuals. With no further recommendations GI will sign off and will be available for consultation upon request. GENERAL: Well-developed, unresponsive, moaning HEENT: Moist mucous membranes NECK: Supple, no thyromegaly. LUNGS: Mechanical breath sounds equal bilaterally. CARDIOVASCULAR: S1, S2 heard. No rubs or gallops. ABDOMEN: Soft, nontender, nondistended. Normal bowel sounds. G-tube site is clear of drainage , no rebound or guarding. MUSCULOSKELETAL: No lower extremity edema bilaterally. Result Diagram: 10/26/18 0628 10/26/18 0628 Results 24hrs Laboratory Tests Test 10/26/18 06:28 White Blood Count 5.5 Red Blood Count 3.55 L Hemoglobin 10.9 L Hematocrit 35.3 L Mean Corpuscular Volume 99.4 Mean Corpuscular Hemoglobin 30.7 Mean Corpuscular Hemoglobin Concent 30.9 L Red Cell Distribution Width 15.0 H Platelet Count 247 # Mean Platelet Volume 11.0 H Immature Granulocytes % 0.400 Neutrophils % 60.2 Lymphocytes % 28.3 Monocytes % 9.7 Eosinophils % 0.5 Basophils % 0.9 Nucleated Red Blood Cells % 0.0 Immature Granulocytes # 0.020 Neutrophils # 3.3 Lymphocytes # 1.6 Monocytes # 0.5 Eosinophils # 0.0 Basophils # 0.1 Nucleated Red Blood Cells # 0.0 Sodium Level 147 H Potassium Level 3.9 Chloride Level 109 Carbon Dioxide Level 26 Anion Gap 12 Blood Urea Nitrogen 39 H Creatinine 1.02 H Est Glomerular Filtrat Rate mL/min 54 L Glucose Level 97 Calcium Level 9.7 Phosphorus Level 4.4 Magnesium Level 1.9 Valproic Acid (Depakene) Level 113 H CC: YASMEEN JORDAN MD ; Exam/Review of Systems Exam Vitals Vital Signs Date Temp Pulse Resp B/P (MAP) Pulse Ox O2 O2 Flow FiO2 Time Delivery Rate 10/26/18 78 12:01 10/26/18 98.0 18 139/74 96 Nasal 11:19 (95) Cannula 10/26/18 3.0 08:02 10/22/18 28 13:33 Intake and Output 10/25/18 10/25/18 10/26/18 1515:00 23:00 07:00 IntakeIntake Total 100 ml 85 ml OutputOutput Total 600 ml 700 ml BalanceBalance -500 ml -615 ml Results Results 24hrs Laboratory Tests Test 10/26/18 06:28 White Blood Count 5.5 Red Blood Count 3.55 L Hemoglobin 10.9 L Hematocrit 35.3 L Mean Corpuscular Volume 99.4 Mean Corpuscular Hemoglobin 30.7 Mean Corpuscular Hemoglobin Concent 30.9 L Red Cell Distribution Width 15.0 H Platelet Count 247 # Mean Platelet Volume 11.0 H Immature Granulocytes % 0.400 Neutrophils % 60.2 Lymphocytes % 28.3 Monocytes % 9.7 Eosinophils % 0.5 Basophils % 0.9 Nucleated Red Blood Cells % 0.0 Immature Granulocytes # 0.020 Neutrophils # 3.3 Lymphocytes # 1.6 Monocytes # 0.5 Eosinophils # 0.0 Basophils # 0.1 Nucleated Red Blood Cells # 0.0 Sodium Level 147 H Potassium Level 3.9 Chloride Level 109 Carbon Dioxide Level 26 Anion Gap 12 Blood Urea Nitrogen 39 H Creatinine 1.02 H Est Glomerular Filtrat Rate mL/min 54 L Glucose Level 97 Calcium Level 9.7 Phosphorus Level 4.4 Magnesium Level 1.9 Valproic Acid (Depakene) Level 113 H Medications Medication Current Medications IV Flush (NS 3 ml) 3 ml PER PROTOCOL IV ; Start 10/06/18 at 09:30 Ondansetron HCl (Zofran Inj) 4 mg Q6H PRN IV NAUSEA/VOMITING; Start 10/06/18 at 09:30 Acetaminophen (Tylenol Tab) 650 mg Q6H PRN PO .PAIN 1-3 OR TEMP Last administered on 10/26/18 13:11; Admin Dose 650 MG; Start 10/06/18 at 09:30 Acetaminophen/ Hydrocodone Bitart ([place] (5/325)) 1 tab Q6H PRN PO .MOD PAIN 4- 6; Start 10/06/18 at 09:30 Docusate Sodium (Colace) 100 mg Q12H PRN PO .CONSTIPATION; Start 10/06/18 at 09:30 Magnesium Hydroxide (Milk Of Mag) 30 ml DAILY PRN PO .CONSTIPATION; Start 10/06/18 at 09:30 Albuterol/ Ipratropium (Duoneb) 3 ml Q4H RESP THERAPY PRN HHN SHORTNESS OF BREATH Last administered on 10/23/18 16:18; Admin Dose 3 ML; Start 10/06/18 at 09:30 Nitroglycerin (Nitroglycerin (Sl Tab) 0.4 Mg) 1 tab Q5M PRN SL ANGINA; Start 10/06/18 at 09:30 Bisacodyl (Dulcolax) 10 mg DAILY PRN PO CONSTIPATION; Start 10/06/18 at 09:30 Donepezil HCl (Aricept) 5 mg QHS PO Last administered on 10/25/18 20:58; Admin Dose 5 MG; Start 10/06/18 at 21:00 Lactulose (Enulose) 20 gm TID PRN PO CONSTIPATION; Start 10/06/18 at 09:30 Levothyroxine Sodium (Synthroid) 50 mcg BEFORE BREAKFAST PO Last administered on 10/26/18 06:42; Admin Dose 50 MCG; Start 10/07/18 at 07:00 Mineral Oil (Fleet Mineral Oil Enema) 133 ml DAILY PRN [place] CONSTIPATION; Start 10/06/18 at 09:30 Multivitamins Therapeutic (Theragran) 1 tab DAILY PO Last administered on 10/26/18 08:46; Admin Dose 1 TAB; Start 10/07/18 at 09:00 Aspirin (Aspirin) 81 mg DAILY NGT Last administered on 10/11/18 09:35; Admin Dose 81 MG; Start 10/06/18 at 12:30; Status Hold Atorvastatin Calcium (Lipitor) 40 mg DAILY@21 NGT Last administered on 10/25/18 20:58; Admin Dose 40 MG; Start 10/06/18 at 21:00 Miscellaneous Information (Flu Vaccine Previously Dispensed) FLU VACCINE PREVIOU... NOTE PRN XX NOTE; Start 10/06/18 at 18:00 Amiodarone HCl (Cordarone) 200 mg BID PO Last administered on 10/26/18 08:48; Admin Dose 200 MG; Start 10/09/18 at 21:00 Famotidine (Pepcid) 20 mg DAILY NGT Last administered on 10/26/18 08:46; Admin Dose 20 MG; Start 10/10/18 at 09:00 Polyethylene Glycol (Miralax) 17 gm BID PRN PO constipation; Start 10/10/18 at 22:00 Metoprolol Tartrate (Lopressor) 25 mg BID PO Last administered on 10/26/18 08:47; Admin Dose 25 MG; Start 10/12/18 at 15:00 Metoprolol Tartrate (Lopressor) 5 mg Q4H PRN IV HR>110 Hold SBP<100 Last administered on 10/20/18 11:40; Admin Dose 5 MG; Start 10/12/18 at 15:00 Levetiracetam (Keppra Liquid) 1,000 mg BID GTB Last administered on 10/26/18 08:46; Admin Dose 1,000 MG; Start 10/14/18 at 21:00 Lorazepam (Ativan) 1 mg Q4H PRN IV SEIZURES Last administered on 10/26/18 09:13; Admin Dose 1 MG; Start 10/16/18 at 12:00 Morphine Sulfate (morphine) 1 mg Q4H PRN IV .SEVERE PAIN 7-10 Last administered on 10/22/18 04:15; Admin Dose 1 MG; Start 10/16/18 at 15:45 Epoetin Nile (Epogen (Non Esrd/Non Oncology)) 6,000 units MoWeFr@17 SC Last administered on 10/25/18 18:23; Admin Dose 6,000 UNITS; Start 10/18/18 at 17:00 Furosemide (Lasix) 20 mg DAILY@0600 IV Last administered on 10/26/18 05:24; Admin Dose 20 MG; Start 10/18/18 at 12:30 Quetiapine Fumarate (Seroquel) 12.5 mg QID PRN NGT anxiety/agitation Last administered on 10/23/18 12:08; Admin Dose 12.5 MG; Start 10/18/18 at 14:30 Quetiapine Fumarate (Seroquel) 12.5 mg QHS NGT Last administered on 10/25/18 20:56; Admin Dose 12.5 MG; Start 10/19/18 at 21:00 Hydralazine HCl (Apresoline) 25 mg Q6 NGT Last administered on 10/26/18 13:06; Admin Dose 25 MG; Start 10/20/18 at 12:00 Hydralazine HCl (Apresoline) 5 mg Q8H PRN IV sbp >160; Start 10/20/18 at 12:00 Miscellaneous Information (Pending [facility] Order For Wound Care) This patient martin... PRN PRN XX WOUND CARE; Start 10/21/18 at 07:30 Valproate Sodium (Depakene Liquid Cup) 1,000 mg Q8 GTB Last administered on 10/26/18 13:06; Admin Dose 1,000 MG; Start 10/22/18 at 22:00 Enoxaparin Sodium (Lovenox) 70 mg BID SC Last administered on 10/26/18 09:09; Admin Dose 70 MG; Start 10/23/18 at 21:00 JAYLA NGUYEN NP Oct 26, 2018 14:50
--- NOTE | 2018-10-26 15:11 | CONS ---
Assessment/Plan Assessment/Plan Hospital Course (Demo Recall) IMP: 1. Nstemi- in setting of renal failure and shock. Downtrended 2.Shock-improved off pressors with actual HTN now 3.Tachycardia-S tach at this time 4.UTI 5.PAF with RVR-now back in SR this AM again 6.Renal failure 7.Dyslipidemia 8.Sz d/o 9. Hypothyroid 10. anemia-s/p transfusions 11. Resp failure s/p extubation. stable 12. Dysphagia s/p PEG Recc: -Tele -Contineu current BB/hydralazine -Follow rhythm and rate closely -Continue abx's and f/u cx data -Continue statin -now in SR on po amio. Will follow rhythm clsoely -Lovenox BID if ok to continue given seizures -follow resp status and volume status closely -Continue keppra Consultation Date/Type/Reason Admit Date/Time Oct 06, 2018 at 09:29 Initial Consult Date 10/06/18 Type of Consult Cardiology Reason for Consultation AF Requesting Provider: MANUEL ALEMAN Date/Time of Note DATE: 10/26/18 TIME: 15:08 Exam/Review of Systems Vital Signs Vitals Vital Signs Date Temp Pulse Resp B/P (MAP) Pulse Ox O2 O2 Flow FiO2 Time Delivery Rate 10/26/18 78 12:01 10/26/18 98.0 18 139/74 96 Nasal 11:19 (95) Cannula 10/26/18 3.0 08:02 10/22/18 28 13:33 Intake and Output 10/25/18 10/25/18 10/26/18 1414:59 22:59 06:59 IntakeIntake Total 100 ml 85 ml OutputOutput Total 600 ml 700 ml BalanceBalance -500 ml -615 ml Exam Exam Review of Systems: CONSTITUTIONAL: No fevers, chills. PULMONARY: No sob CARDIOVASCULAR: No chest pain/palpitations GASTROINTESTINAL: No nausea/vomiting. GENITOURINARY: No hematuria/dysuria. MUSCULOSKELETAL: No myagias/arthalgias. PSYCHIATRIC: The patient denies depression. NEUROLOGIC: No weakness Constitutional: other (confused) Psych: no complaints Head: normocephalic ENMT: mucosa pink and moist Neck: supple, jvd (9 cm water) Respiratory: diminished breath sounds (at bases/B) Cardiovascular: regular rate and rhythm Gastrointestinal: soft, non-tender Musculoskeletal: muscle tone (normal) Extremities: edema (none) Neurological: other (Nop focal deficits) Labs Result Diagram: 10/26/1862710/26/18627 Results 24hrs Laboratory Tests Test 10/26/18 06:28 White Blood Count 5.5 Red Blood Count 3.55 L Hemoglobin 10.9 L Hematocrit 35.3 L Mean Corpuscular Volume 99.4 Mean Corpuscular Hemoglobin 30.7 Mean Corpuscular Hemoglobin Concent 30.9 L Red Cell Distribution Width 15.0 H Platelet Count 247 # Mean Platelet Volume 11.0 H Immature Granulocytes % 0.400 Neutrophils % 60.2 Lymphocytes % 28.3 Monocytes % 9.7 Eosinophils % 0.5 Basophils % 0.9 Nucleated Red Blood Cells % 0.0 Immature Granulocytes # 0.020 Neutrophils # 3.3 Lymphocytes # 1.6 Monocytes # 0.5 Eosinophils # 0.0 Basophils # 0.1 Nucleated Red Blood Cells # 0.0 Sodium Level 147 H Potassium Level 3.9 Chloride Level 109 Carbon Dioxide Level 26 Anion Gap 12 Blood Urea Nitrogen 39 H Creatinine 1.02 H Est Glomerular Filtrat Rate mL/min 54 L Glucose Level 97 Calcium Level 9.7 Phosphorus Level 4.4 Magnesium Level 1.9 Valproic Acid (Depakene) Level 113 H Medications Medications Current Medications IV Flush (NS 3 ml) 3 ml PER PROTOCOL IV ; Start 10/06/18 at 09:30 Ondansetron HCl (Zofran Inj) 4 mg Q6H PRN IV NAUSEA/VOMITING; Start 10/06/18 at 09:30 Acetaminophen (Tylenol Tab) 650 mg Q6H PRN PO .PAIN 1-3 OR TEMP Last administered on 10/26/18at 13:11; Admin Dose 650 MG; Start 10/06/18 at 09:30 Acetaminophen/ Hydrocodone Bitart ([place] (5/325)) 1 tab Q6H PRN PO .MOD PAIN 4- 6; Start 10/06/18 at 09:30 Docusate Sodium (Colace) 100 mg Q12H PRN PO .CONSTIPATION; Start 10/06/18 at 09:30 Magnesium Hydroxide (Milk Of Mag) 30 ml DAILY PRN PO .CONSTIPATION; Start 10/06/18 at 09:30 Albuterol/ Ipratropium (Duoneb) 3 ml Q4H RESP THERAPY PRN HHN SHORTNESS OF BREATH Last administered on 10/23/18 16:18; Admin Dose 3 ML; Start 10/06/18 at 09:30 Nitroglycerin (Nitroglycerin (Sl Tab) 0.4 Mg) 1 tab Q5M PRN SL ANGINA; Start 10/06/18 at 09:30 Bisacodyl (Dulcolax) 10 mg DAILY PRN PO CONSTIPATION; Start 10/06/18 at 09:30 Donepezil HCl (Aricept) 5 mg QHS PO Last administered on 10/25/18 20:58; Admin Dose 5 MG; Start 10/06/18 at 21:00 Lactulose (Enulose) 20 gm TID PRN PO CONSTIPATION; Start 10/06/18 at 09:30 Levothyroxine Sodium (Synthroid) 50 mcg BEFORE BREAKFAST PO Last administered on 10/26/18 06:42; Admin Dose 50 MCG; Start 10/07/18 at 07:00 Mineral Oil (Fleet Mineral Oil Enema) 133 ml DAILY PRN [place] CONSTIPATION; Start 10/06/18 at 09:30 Multivitamins Therapeutic (Theragran) 1 tab DAILY PO Last administered on 10/26/18 08:46; Admin Dose 1 TAB; Start 10/07/18 at 09:00 Aspirin (Aspirin) 81 mg DAILY NGT Last administered on 10/11/18 09:35; Admin Dose 81 MG; Start 10/06/18 at 12:30; Status Hold Atorvastatin Calcium (Lipitor) 40 mg DAILY@21 NGT Last administered on 10/25/18 20:58; Admin Dose 40 MG; Start 10/06/18 at 21:00 Miscellaneous Information (Flu Vaccine Previously Dispensed) FLU VACCINE PREVIOU... NOTE PRN XX NOTE; Start 10/06/18 at 18:00 Amiodarone HCl (Cordarone) 200 mg BID PO Last administered on 10/26/18 08:48; Admin Dose 200 MG; Start 10/09/18 at 21:00 Famotidine (Pepcid) 20 mg DAILY NGT Last administered on 10/26/18 08:46; Admin Dose 20 MG; Start 10/10/18 at 09:00 Polyethylene Glycol (Miralax) 17 gm BID PRN PO constipation; Start 10/10/18 at 22:00 Metoprolol Tartrate (Lopressor) 25 mg BID PO Last administered on 10/26/18 08:47; Admin Dose 25 MG; Start 10/12/18 at 15:00 Metoprolol Tartrate (Lopressor) 5 mg Q4H PRN IV HR>110 Hold SBP<100 Last administered on 10/20/18 11:40; Admin Dose 5 MG; Start 10/12/18 at 15:00 Levetiracetam (Keppra Liquid) 1,000 mg BID GTB Last administered on 10/26/18 08:46; Admin Dose 1,000 MG; Start 10/14/18 at 21:00 Lorazepam (Ativan) 1 mg Q4H PRN IV SEIZURES Last administered on 10/26/18 09:13; Admin Dose 1 MG; Start 10/16/18 at 12:00 Morphine Sulfate (morphine) 1 mg Q4H PRN IV .SEVERE PAIN 7-10 Last administered on 10/22/18 04:15; Admin Dose 1 MG; Start 10/16/18 at 15:45 Epoetin Nile (Epogen (Non Esrd/Non Oncology)) 6,000 units MoWeFr@17 SC Last administered on 10/25/18 18:23; Admin Dose 6,000 UNITS; Start 10/18/18 at 17:00 Furosemide (Lasix) 20 mg DAILY@0600 IV Last administered on 10/26/18 05:24; Admin Dose 20 MG; Start 10/18/18 at 12:30 Quetiapine Fumarate (Seroquel) 12.5 mg QID PRN NGT anxiety/agitation Last administered on 10/23/18 12:08; Admin Dose 12.5 MG; Start 10/18/18 at 14:30 Quetiapine Fumarate (Seroquel) 12.5 mg QHS NGT Last administered on 10/25/18 20:56; Admin Dose 12.5 MG; Start 10/19/18 at 21:00 Hydralazine HCl (Apresoline) 25 mg Q6 NGT Last administered on 10/26/18 13:06; Admin Dose 25 MG; Start 10/20/18 at 12:00 Hydralazine HCl (Apresoline) 5 mg Q8H PRN IV sbp >160; Start 10/20/18 at 12:00 Miscellaneous Information (Pending [facility] Order For Wound Care) This patient martin... PRN PRN XX WOUND CARE; Start 10/21/18 at 07:30 Valproate Sodium (Depakene Liquid Cup) 1,000 mg Q8 GTB Last administered on 10/26/18at 13:06; Admin Dose 1,000 MG; Start 10/22/18 at 22:00 Enoxaparin Sodium (Lovenox) 70 mg BID SC Last administered on 10/26/18at 09:09; Admin Dose 70 MG; Start 10/23/18 at 21:00 ANGELA CARY Oct 26, 2018 15:11
--- NOTE | 2018-10-26 17:12 | CONS ---
Consult Date/Type/Reason Admit Date/Time Oct 06, 2018 at 09:29 Initial Consult Date 10/06/18 Type of Consultation: Pulm/CCM Requesting Provider: MANUEL ALEMAN Date/Time of Note DATE: 10/26/18 TIME: 17:10 Subjective No events. Remains on 3 L oxygen via NC. Objective Vitals Vital Signs Date Temp Pulse Resp B/P (MAP) Pulse Ox O2 O2 Flow FiO2 Time Delivery Rate 10/26/18 98.7 72 15 118/62 93 Nasal 16:15 (80) Cannula 10/26/18 3.0 08:02 10/22/18 28 13:33 Intake and Output 10/25/18 10/25/18 10/26/18 1515:00 23:00 07:00 IntakeIntake Total 100 ml 85 ml OutputOutput Total 600 ml 700 ml BalanceBalance -500 ml -615 ml Exam HEENT: Neck supple; no JVD; no LAD CVS: RRR, S1 and S2 CHEST: coarse rhonchi B/L ABD: Soft, NT, + BS EXT: No c/c/e Results/Medications Result Diagram: 10/26/1862710/26/18627 Results 24 hrs Laboratory Tests Test 10/26/18 06:28 White Blood Count 5.5 Red Blood Count 3.55 L Hemoglobin 10.9 L Hematocrit 35.3 L Mean Corpuscular Volume 99.4 Mean Corpuscular Hemoglobin 30.7 Mean Corpuscular Hemoglobin Concent 30.9 L Red Cell Distribution Width 15.0 H Platelet Count 247 # Mean Platelet Volume 11.0 H Immature Granulocytes % 0.400 Neutrophils % 60.2 Lymphocytes % 28.3 Monocytes % 9.7 Eosinophils % 0.5 Basophils % 0.9 Nucleated Red Blood Cells % 0.0 Immature Granulocytes # 0.020 Neutrophils # 3.3 Lymphocytes # 1.6 Monocytes # 0.5 Eosinophils # 0.0 Basophils # 0.1 Nucleated Red Blood Cells # 0.0 Sodium Level 147 H Potassium Level 3.9 Chloride Level 109 Carbon Dioxide Level 26 Anion Gap 12 Blood Urea Nitrogen 39 H Creatinine 1.02 H Est Glomerular Filtrat Rate mL/min 54 L Glucose Level 97 Calcium Level 9.7 Phosphorus Level 4.4 Magnesium Level 1.9 Valproic Acid (Depakene) Level 113 H Home Meds Active Scripts Vancomycin Hcl (Vancocin) 1 Gm Soln, 500 MG IV Q12 for 7 Days, VIAL 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 Reported Medications Donepezil* (Donepezil*) 5 Mg Tablet, 5 MG PO QHS, #30 TAB 08/28/18 Divalproex Sodium* (Depakote*) 500 Mg Tablet.dr, 500 MG PO BID, #120 TAB 08/28/18 Docusate Sodium* (Colace*) 100 Mg Capsule, 100 MG PO BID PRN for CONSTIPATION, #60 CAP 08/28/18 Atorvastatin Calcium (Atorvastatin Calcium) 10 Mg Tablet, 10 MG PO QHS, #30 TAB 08/28/18 Lorazepam* (Lorazepam*) 1 Mg Tablet, 1 MG PO BID PRN for ANXIETY, #30 TAB 08/28/18 Lactulose* (Lactulose*) 20 Gm/30 Ml Solution, 20 GM PO TID PRN for CONSTIPATION, ML 08/28/18 Trazodone Hcl* (Trazodone Hcl*) 100 Mg Tablet, 100 MG PO QHS, #30 TAB 08/28/18 Quetiapine Fumarate* (Seroquel*) 200 Mg Tablet, 200 MG PO HS, #30 TAB 08/28/18 Sennosides* (Senna Lax*) 8.6 Mg Tablet, 2 TAB PO QHS PRN for CONSTIPATION, TAB 08/28/18 Multivitamins* (Theragran*) 1 Tab Tab, 1 TAB PO DAILY, TAB 08/28/18 Polyethylene Glycol* (Miralax*) 17 Gm Powd.pack, 17 GM PO BID, #60 PACKET 08/28/18 Metoprolol Tartrate* (Lopressor*) 25 Mg Tab, 12.5 MG PO DAILY, #60 TAB HOLD IF SBP<115 OR HR<60 08/28/18 Levothyroxine Sodium* (Levothyroxine Sodium*) 50 Mcg Tablet, 50 MCG PO BEFORE BREAKFAST, #30 TAB 08/28/18 Levetiracetam* (Keppra*) 500 Mg Tablet, 500 MG PO BID, TAB 08/28/18 Gabapentin* (Gabapentin*) 400 Mg Capsule, 400 MG PO TID, #90 CAP 08/28/18 Phenylephrine HCl/[place] Butter* (Preparation H* Suppository) 1 Each Supp.rect, 1 EACH [place] DAILY PRN for CONSTIPATION, SUPP.RECT 08/28/18 Mineral Oil* (Fleet* Mineral Oil Enema) 133 Ml Oil, 133 ML [place] DAILY PRN for CON STIPATION, ENEMA 08/28/18 Acetaminophen* (Acetaminophen*) 650 Mg Tablet, 650 MG PO DAILY PRN for PAIN AND OR ELEVATED TEMP, #30 TAB 08/28/18 Bisacodyl* (Bisacodyl*) 5 Mg Tablet.dr, 10 MG PO DAILY PRN for CONSTIPATION, TAB 08/28/18 Medications Current Medications IV Flush (NS 3 ml) 3 ml PER PROTOCOL IV ; Start 10/06/18 at 09:30 Ondansetron HCl (Zofran Inj) 4 mg Q6H PRN IV NAUSEA/VOMITING; Start 10/06/18 at 09:30 Acetaminophen (Tylenol Tab) 650 mg Q6H PRN PO .PAIN 1-3 OR TEMP Last administered on 10/26/18at 13:11; Admin Dose 650 MG; Start 10/06/18 at 09:30 Acetaminophen/ Hydrocodone Bitart ([place] (5/325)) 1 tab Q6H PRN PO .MOD PAIN 4- 6; Start 10/06/18 at 09:30 Docusate Sodium (Colace) 100 mg Q12H PRN PO .CONSTIPATION; Start 10/06/18 at 09:30 Magnesium Hydroxide (Milk Of Mag) 30 ml DAILY PRN PO .CONSTIPATION; Start 10/06/18 at 09:30 Albuterol/ Ipratropium (Duoneb) 3 ml Q4H RESP THERAPY PRN HHN SHORTNESS OF BREATH Last administered on 10/23/18at 16:18; Admin Dose 3 ML; Start 10/06/18 at 09:30 Nitroglycerin (Nitroglycerin (Sl Tab) 0.4 Mg) 1 tab Q5M PRN SL ANGINA; Start 10/06/18 at 09:30 Bisacodyl (Dulcolax) 10 mg DAILY PRN PO CONSTIPATION; Start 10/06/18 at 09:30 Donepezil HCl (Aricept) 5 mg QHS PO Last administered on 10/25/18 20:58; Admin Dose 5 MG; Start 10/06/18 at 21:00 Lactulose (Enulose) 20 gm TID PRN PO CONSTIPATION; Start 10/06/18 at 09:30 Levothyroxine Sodium (Synthroid) 50 mcg BEFORE BREAKFAST PO Last administered on 10/26/18 06:42; Admin Dose 50 MCG; Start 10/07/18 at 07:00 Mineral Oil (Fleet Mineral Oil Enema) 133 ml DAILY PRN [place] CONSTIPATION; Start 10/06/18 at 09:30 Multivitamins Therapeutic (Theragran) 1 tab DAILY PO Last administered on 10/26/18 08:46; Admin Dose 1 TAB; Start 10/07/18 at 09:00 Aspirin (Aspirin) 81 mg DAILY NGT Last administered on 10/11/18 09:35; Admin Do se 81 MG; Start 10/06/18 at 12:30; Status Hold Atorvastatin Calcium (Lipitor) 40 mg DAILY@21 NGT Last administered on 10/25/18 20:58; Admin Dose 40 MG; Start 10/06/18 at 21:00 Miscellaneous Information (Flu Vaccine Previously Dispensed) FLU VACCINE PREVIOU... NOTE PRN XX NOTE; Start 10/06/18 at 18:00 Amiodarone HCl (Cordarone) 200 mg BID PO Last administered on 10/26/18 08:48; Admin Dose 200 MG; Start 10/09/18 at 21:00 Famotidine (Pepcid) 20 mg DAILY NGT Last administered on 10/26/18 08:46; Admin Dose 20 MG; Start 10/10/18 at 09:00 Polyethylene Glycol (Miralax) 17 gm BID PRN PO constipation; Start 10/10/18 at 22:00 Metoprolol Tartrate (Lopressor) 25 mg BID PO Last administered on 10/26/18 08:47; Admin Dose 25 MG; Start 10/12/18 at 15:00 Metoprolol Tartrate (Lopressor) 5 mg Q4H PRN IV HR>110 Hold SBP<100 Last administered on 10/20/18 11:40; Admin Dose 5 MG; Start 10/12/18 at 15:00 Levetiracetam (Keppra Liquid) 1,000 mg BID GTB Last administered on 10/26/18 08:46; Admin Dose 1,000 MG; Start 10/14/18 at 21:00 Lorazepam (Ativan) 1 mg Q4H PRN IV SEIZURES Last administered on 10/26/18 09:13; Admin Dose 1 MG; Start 10/16/18 at 12:00 Morphine Sulfate (morphine) 1 mg Q4H PRN IV .SEVERE PAIN 7-10 Last administered on 10/22/18 04:15; Admin Dose 1 MG; Start 10/16/18 at 15:45 Epoetin Nile (Epogen (Non Esrd/Non Oncology)) 6,000 units MoWeFr@17 SC Last administered on 10/25/18 18:23; Admin Dose 6,000 UNITS; Start 10/18/18 at 17:00 Furosemide (Lasix) 20 mg DAILY@0600 IV Last administered on 10/26/18 05:24; Admin Dose 20 MG; Start 10/18/18 at 12:30 Quetiapine Fumarate (Seroquel) 12.5 mg QID PRN NGT anxiety/agitation Last administered on 10/23/18 12:08; Admin Dose 12.5 MG; Start 10/18/18 at 14:30 Quetiapine Fumarate (Seroquel) 12.5 mg QHS NGT Last administered on 10/25/18 20:56; Admin Dose 12.5 MG; Start 10/19/18 at 21:00 Hydralazine HCl (Apresoline) 25 mg Q6 NGT Last administered on 10/26/18 13:06; Admin Dose 25 MG; Start 10/20/18 at 12:00 Hydralazine HCl (Apresoline) 5 mg Q8H PRN IV sbp >160; Start 10/20/18 at 12:00 [facility] This patient martin... PRN PRN XX WOUND CARE; Start 10/21/18 at 07:30 Valproate Sodium (Depakene Liquid Cup) 1,000 mg Q8 GTB Last administered on 10/26/18 13:06; Admin Dose 1,000 MG; Start 10/22/18 at 22:00 Enoxaparin Sodium (Lovenox) 70 mg BID SC Last administered on 10/26/18at 09:09; Admin Dose 70 MG; Start 10/23/18 at 21:00 Assessment/Plan Assessment/Plan (Daily) IMP: 1. Status post septic Shock: likely due to urinary tract infection 2. s/p Respiratory Failure 3. UMBERTO-- pre-renal v 4. NSTEMI: type II 5. Afib with RVR--now in SR 6. History of dementia 7. Anemia 8. HTN RECS: 1. Strict aspiration precautions 2. Continue TFs 3. Aggressive suctioning/CPT MARICEL REDDY MD Oct 26, 2018 17:12
[2018-10-26] MEDS: morphine 2 MG INJ IV PRN (21:50)
[2018-10-26] MEDS: DONEPEZIL 5 MG TAB PO SCH (21:53)
[2018-10-26] MEDS: QUETIAPINE 25 MG TAB NGT SCH (21:54)
[2018-10-26] MEDS: ATORVASTATIN 40 MG TAB NGT SCH (21:54)
[2018-10-27] VITALS (11 sets, daily range): BP systolic 96–141; BP diastolic 51–79; PULSE 70–95; RESP 18–22
[2018-10-27] MEDS: VALPROIC ACID LIQUID CUP 250 MG/5 ML CUP GTB SCH ×3 (06:00→21:52)
[2018-10-27] MEDS: LEVOTHYROXINE 50 MCG TAB PO SCH (06:04)
[2018-10-27] MEDS: FUROSEMIDE 20 MG INJ IV SCH (06:04)
[2018-10-27] MEDS: morphine 2 MG INJ IV PRN (09:01)
[2018-10-27] MEDS: MULTIVITAMINS THERAPEUTIC TAB PO SCH (09:02)
[2018-10-27] MEDS: LEVETIRACETAM (100 MG/ML) 5ML CUP GTB SCH ×2 (09:02→21:52)
[2018-10-27] MEDS: FAMOTIDINE 20 MG TAB NGT SCH (09:02)
[2018-10-27] MEDS: BALSAM PERU/CASTOR OIL 60 GM TUBE TOP SCH (09:03)
[2018-10-27] MEDS: AMIODARONE 200 MG TAB PO SCH ×2 (09:03→21:53)
[2018-10-27] MEDS: METOPROLOL 25 MG TAB PO SCH ×2 (09:03→21:53)
[2018-10-27] MEDS: ENOXAPARIN 80 MG/0.8 ML SYG SC SCH ×2 (09:17→21:54)
--- NOTE | 2018-10-27 11:44 | PN ---
Date/Time of Note Date/Time of Note DATE: 10/27/18 TIME: 11:39 Assessment/Plan VTE Prophylaxis Risk score (from Ns)>0 risk: 6 SCD applied (from Ns): Yes Pharmacological prophylaxis: LMWH Lines/Catheters IV [facility]from [facility] Saline Lock Urinary Cath still in place: Yes Reason Cath still needed: pres ulcer contaminated by urine Assessment/Plan Assessment/Plan 67-year-old female coming in with signs of septic shock, likely secondary to urinary tract infection and pneumonia, elevated troponins, acute renal insufficiency, now intubated on pressor support. Also presented with atrial fibrillation with rapid ventricular response, now in normal sinus rhythm. #Septic shock and respiratory failure - resolved -ID Dr. Sanford following - Likely due to UTI - Urine cultures and Blood cultures growing E Coli x2 -has been off vasopressor support. -Patient extubated 10/18 -Continue current broad-spectrum antibiotics, Tylenol p.r.n. pain and fevers. -Follow pulmonary recommendations #Seizure disorder - Morning of 10/08 had whole body twitching concerning for seizures; got Ativan then Versed. Again on 10/11 had a similar episode broken with Ativan -10/08/18 EEG appears to have localized lesion but CT head is negative. Repeat EEG from 10/15/18 results noted, neuro following. - Continue keppra, valproic acid, follow-up neurology recommendations - Holding versed, but continue Ativan as needed - Low-dose Seroquel as needed for agitation # NSTEMI - Unclear if this is true non-ST elevation myocardial infarction versus demand ischemia- s/p heparin gtt earlier this admission. - Continue high dose aspirin. - Continue Lipitor. - Cardiology Dr. Mello consulted, follow-up their recommendations -continue medical management #A fib with RVR, paroxysmal-stable, Dr. Mello following- Converted to normal sinus after getting Cardizem in ED-apparently went back in A fib later, now the last few days has been in normal sinus rhythm -Monitor heart rate for now, follow cardiology recommendations -Continue p.o. beta-panda and p.o. amiodarone for now # Renal insufficiency -resolved # Hypothyroidism - Continue current thyroid medicines. - Low TSH, normal fT4 consistent with sick euthyroid syndrome. # History of dementia. - Continue Aricept for now. - Spoke to Valentina RN at SNF. Prior to admission, patient was able to walk a ssisted, feed self, say simple words like "bathroom" and "pain". Not oriented to name, location, time. - PEG placement 10/25. # History of high cholesterol. - Cont statin #Anemia: Probably anemia of chronic disease # Gastrointestinal prophylaxis- H2 panda. # Deep venous thrombosis prophylaxis - due to anemia- SCDs Plan At baseline she was able to walk and feed herself just a week prior to admission. Currently patient is in bed, following commands, but has no movement at all of the extremities. She has G tube and is DNR, code status will be continued at SNF. Technically she is medically clear to discharge to SNF. However it may be trevino to monitor a few more days in the hospital for recovery of neuro function; also she does have trouble managing secretions and intermittently goes hypoxic. Result Diagram: 10/27/18 0631 10/27/18 0631 Subjective 24 Hr Interval Summary Free Text/Dictation No acute overnight events. Apparently patient desaturated to 83% this morning on room air; but recovered back to high 90s before nasal cannula replaced. Also she opened her mouth on command this morning! Exam/Review of Systems Exam Vitals Vital Signs Date Temp Pulse Resp B/P (MAP) Pulse Ox O2 O2 Flow FiO2 Time Delivery Rate 10/27/18 79 08:26 10/27/18 Nasal 3.0 08:00 Cannula 10/27/18 98.7 18 100/63 97 07:46 (75) Intake and Output 10/26/18 10/26/18 10/27/18 1414:59 22:59 06:59 IntakeIntake Total 860 ml 860 ml OutputOutput Total 1300 ml 700 ml BalanceBalance -440 ml 160 ml Exam GENERAL: lying in bed, opens eyes to voice and moans occasionally HEENT: Moist mucous membranes. Dried blood in back of throat. NECK: Supple, no thyromegaly. LUNGS: Mechanical breath sounds equal bilaterally. CARDIOVASCULAR: S1, S2 heard. No rubs or gallops. ABDOMEN: Soft, nontender, nondistended. Normal bowel sounds. No rebound or guarding. MUSCULOSKELETAL: No lower extremity edema bilaterally. Neuro: Opens eyes spontaneously, tracking. Moans spontaneously, no words. She DOES open her mouth to command. No movement of extremities even to nailbed pressure. Results Results 24hrs Laboratory Tests Test 10/27/18 06:31 White Blood Count 5.2 Red Blood Count 3.33 L Hemoglobin 10.2 L Hematocrit 32.4 L Mean Corpuscular Volume 97.3 Mean Corpuscular Hemoglobin 30.6 Mean Corpuscular Hemoglobin Concent 31.5 L Red Cell Distribution Width 15.6 H Platelet Count 258 Mean Platelet Volume 11.1 H Immature Granulocytes % 0.200 Neutrophils % 62.1 Lymphocytes % 25.4 Monocytes % 11.3 H Eosinophils % 0.6 Basophils % 0.4 Nucleated Red Blood Cells % 0.0 Immature Granulocytes # 0.010 Neutrophils # 3.3 Lymphocytes # 1.3 Monocytes # 0.6 Eosinophils # 0.0 Basophils # 0.0 Nucleated Red Blood Cells # 0.0 Sodium Level 148 H Potassium Level 3.7 Chloride Level 114 H Carbon Dioxide Level 26 Anion Gap 8 Blood Urea Nitrogen 35 H Creatinine 0.98 Est Glomerular Filtrat Rate mL/min 57 L Glucose Level 132 Calcium Level 9.9 Phosphorus Level 3.0 Magnesium Level 1.7 Valproic Acid (Depakene) Level 87 Medications Medication Current Medications IV Flush (NS 3 ml) 3 ml PER PROTOCOL IV ; Start 10/06/18 at 09:30 Ondansetron HCl (Zofran Inj) 4 mg Q6H PRN IV NAUSEA/VOMITING; Start 10/06/18 at 09:30 Acetaminophen (Tylenol Tab) 650 mg Q6H PRN PO .PAIN 1-3 OR TEMP Last administered on 10/26/18at 13:11; Admin Dose 650 MG; Start 10/06/18 at 09:30 Acetaminophen/ Hydrocodone Bitart ([place] (5/325)) 1 tab Q6H PRN PO .MOD PAIN 4- 6; Start 10/06/18 at 09:30 Docusate Sodium (Colace) 100 mg Q12H PRN PO .CONSTIPATION; Start 10/06/18 at 09:30 Magnesium Hydroxide (Milk Of Mag) 30 ml DAILY PRN PO .CONSTIPATION; Start 10/06/18 at 09:30 Albuterol/ Ipratropium (Duoneb) 3 ml Q4H RESP THERAPY PRN HHN SHORTNESS OF BREATH Last administered on 10/23/18at 16:18; Admin Dose 3 ML; Start 10/06/18 at 09:30 Nitroglycerin (Nitroglycerin (Sl Tab) 0.4 Mg) 1 tab Q5M PRN SL ANGINA; Start 10/06/18 at 09:30 Bisacodyl (Dulcolax) 10 mg DAILY PRN PO CONSTIPATION; Start 10/06/18 at 09:30 Donepezil HCl (Aricept) 5 mg QHS PO Last administered on 10/26/18 21:53; Admin Dose 5 MG; Start 10/06/18 at 21:00 Lactulose (Enulose) 20 gm TID PRN PO CONSTIPATION; Start 10/06/18 at 09:30 Levothyroxine Sodium (Synthroid) 50 mcg BEFORE BREAKFAST PO Last administered on 10/27/18 06:04; Admin Dose 50 MCG; Start 10/07/18 at 07:00 Mineral Oil (Fleet Mineral Oil Enema) 133 ml DAILY PRN [place] CONSTIPATION; Start 10/06/18 at 09:30 Multivitamins Therapeutic (Theragran) 1 tab DAILY PO Last administered on 10/27/18 09:02; Admin Dose 1 TAB; Start 10/07/18 at 09:00 Aspirin (Aspirin) 81 mg DAILY NGT Last administered on 10/11/18 09:35; Admin Dose 81 MG; Start 10/06/18 at 12:30; Status Hold Atorvastatin Calcium (Lipitor) 40 mg DAILY@21 NGT Last administered on 10/26/18 21:54; Admin Dose 40 MG; Start 10/06/18 at 21:00 Miscellaneous Information (Flu Vaccine Previously Dispensed) FLU VACCINE PREVIOU... NOTE PRN XX NOTE; Start 10/06/18 at 18:00 Amiodarone HCl (Cordarone) 200 mg BID PO Last administered on 10/27/18 09:03; Admin Dose 200 MG; Start 10/09/18 at 21:00 Famotidine (Pepcid) 20 mg DAILY NGT Last administered on 10/27/18 09:02; Admin Dose 20 MG; Start 10/10/18 at 09:00 Polyethylene Glycol (Miralax) 17 gm BID PRN PO constipation; Start 10/10/18 at 22:00 Metoprolol Tartrate (Lopressor) 25 mg BID PO Last administered on 10/27/18 09:03; Admin Dose 25 MG; Start 10/12/18 at 15:00 Metoprolol Tartrate (Lopressor) 5 mg Q4H PRN IV HR>110 Hold SBP<100 Last administered on 10/20/18 11:40; Admin Dose 5 MG; Start 10/12/18 at 15:00 Levetiracetam (Keppra Liquid) 1,000 mg BID GTB Last administered on 10/27/18 09:02; Admin Dose 1,000 MG; Start 10/14/18 at 21:00 Lorazepam (Ativan) 1 mg Q4H PRN IV SEIZURES Last administered on 10/26/18 09:13; Admin Dose 1 MG; Start 10/16/18 at 12:00 Morphine Sulfate (morphine) 1 mg Q4H PRN IV .SEVERE PAIN 7-10 Last administered on 10/27/18 09:01; Admin Dose 1 MG; Start 10/16/18 at 15:45 Epoetin Nile (Epogen (Non Esrd/Non Oncology)) 6,000 units MoWeFr@17 SC Last administered on 10/25/18 18:23; Admin Dose 6,000 UNITS; Start 10/18/18 at 17:00 Quetiapine Fumarate (Seroquel) 12.5 mg QID PRN NGT anxiety/agitation Last administered on 10/23/18 12:08; Admin Dose 12.5 MG; Start 10/18/18 at 14:30 Quetiapine Fumarate (Seroquel) 12.5 mg QHS NGT Last administered on 10/26/18 21:54; Admin Dose 12.5 MG; Start 10/19/18 at 21:00 Hydralazine HCl (Apresoline) 25 mg Q6 NGT Last administered on 10/27/18 06:04; Admin Dose 25 MG; Start 10/20/18 at 12:00 Hydralazine HCl (Apresoline) 5 mg Q8H PRN IV sbp >160; Start 10/20/18 at 12:00 Miscellaneous Information (Pending Santyl Order For Wound Care) This patient martin... PRN PRN XX WOUND CARE; Start 10/21/18 at 07:30 Valproate Sodium (Depakene Liquid Cup) 1,000 mg Q8 GTB Last administered on 10/26/18 21:49; Admin Dose 1,000 MG; Start 10/22/18 at 22:00 Enoxaparin Sodium (Lovenox) 70 mg BID SC Last administered on 10/27/18at 09:17; Admin Dose 70 MG; Start 10/23/18 at 21:00 ANGELA MOSQUERA MD Oct 27, 2018 11:44
[2018-10-27] MEDS: ALBUTEROL/IPRATROPIUM (NEB) 3 ML AMP HHN PRN (12:37)
--- NOTE | 2018-10-27 13:15 | CONS ---
Assessment/Plan Assessment/Plan Assessment/Plan (Daily) 1. Non Oliguric Acute kidney injury due to ATN from septic shock - Improving 2. Septic shock due to UTI 3. acute UTI with Urine Cx growing E.Coli 4. Acute hypoxic respiratory failure intubated on ventilator - s/p Extubation on 10/18/18 5. H/o HTN 6 H/o HL 7. H/o Hypothyroidism 8. E.Coli bacteremia Plan: Na 148, BUN/Cr 35/0.98 - Hb 10.2 on epogen 6000 units MWF for anemia - no labs today to review yet - UO 2.0 L still intermittently confused, Bp stable s/p Bioethics meeting on 10/24/18- DNR status will follow up Patient seen in collaboration with Dr Joni Davila Consultation Date/Type/Reason Admit Date/Time Oct 06, 2018 at 09:29 Initial Consult Date 10/06/18 Type of Consult NEPHROLOGY Requesting Provider: MANUEL ALEMAN Date/Time of Note DATE: 10/27/18 TIME: 13:15 24 HR Interval Summary Free Text/Dictation -nad -VSS Hb 10.2 - UO 2.0 L No new events reported last night per staff Exam/Review of Systems Exam Vitals Vital Signs Date Temp Pulse Resp B/P (MAP) Pulse Ox O2 O2 Flow FiO2 Time Delivery Rate 10/27/18 82 20 99 Nasal 2.0 12:37 Cannula 10/27/18 98.3 139/79 11:42 (99) Intake and Output 10/26/18 10/26/18 10/27/18 1515:00 23:00 07:00 IntakeIntake Total 860 ml 860 ml OutputOutput Total 1300 ml 700 ml BalanceBalance -440 ml 160 ml Constitutional: alert, well developed Psych: nl mood/affect Eyes: nl lids, nl sclera ENMT: nl external ears & nose Neck: non-tender Respiratory: diminished breath sounds (bilaterally at bases) Cardiovascular: nl pulses, other (s1s2) Gastrointestinal: soft, non-tender Musculoskeletal: muscle weakness Extremities: normal pulses Neurological: confused Lymph: nontender Results Result Diagram: 10/27/18 0631 10/27/18 0631 Results 24hrs Laboratory Tests Test 10/27/18 06:31 White Blood Count 5.2 Red Blood Count 3.33 L Hemoglobin 10.2 L Hematocrit 32.4 L Mean Corpuscular Volume 97.3 Mean Corpuscular Hemoglobin 30.6 Mean Corpuscular Hemoglobin Concent 31.5 L Red Cell Distribution Width 15.6 H Platelet Count 258 Mean Platelet Volume 11.1 H Immature Granulocytes % 0.200 Neutrophils % 62.1 Lymphocytes % 25.4 Monocytes % 11.3 H Eosinophils % 0.6 Basophils % 0.4 Nucleated Red Blood Cells % 0.0 Immature Granulocytes # 0.010 Neutrophils # 3.3 Lymphocytes # 1.3 Monocytes # 0.6 Eosinophils # 0.0 Basophils # 0.0 Nucleated Red Blood Cells # 0.0 Sodium Level 148 H Potassium Level 3.7 Chloride Level 114 H Carbon Dioxide Level 26 Anion Gap 8 Blood Urea Nitrogen 35 H Creatinine 0.98 Est Glomerular Filtrat Rate mL/min 57 L Glucose Level 132 Calcium Level 9.9 Phosphorus Level 3.0 Magnesium Level 1.7 Valproic Acid (Depakene) Level 87 Medications Medication Current Medications IV Flush (NS 3 ml) 3 ml PER PROTOCOL IV ; Start 10/06/18 at 09:30 Ondansetron HCl (Zofran Inj) 4 mg Q6H PRN IV NAUSEA/VOMITING; Start 10/06/18 at 09:30 Acetaminophen (Tylenol Tab) 650 mg Q6H PRN PO .PAIN 1-3 OR TEMP Last administered on 10/26/18at 13:11; Admin Dose 650 MG; Start 10/06/18 at 09:30 Acetaminophen/ Hydrocodone Bitart ([place] (5/325)) 1 tab Q6H PRN PO .MOD PAIN 4- 6; Start 10/06/18 at 09:30 Docusate Sodium (Colace) 100 mg Q12H PRN PO .CONSTIPATION; Start 10/06/18 at 09:30 Magnesium Hydroxide (Milk Of Mag) 30 ml DAILY PRN PO .CONSTIPATION; Start 10/06/18 at 09:30 Albuterol/ Ipratropium (Duoneb) 3 ml Q4H RESP THERAPY PRN HHN SHORTNESS OF BREATH Last administered on 10/27/18at 12:37; Admin Dose 3 ML; Start 10/06/18 at 09:30 Nitroglycerin (Nitroglycerin (Sl Tab) 0.4 Mg) 1 tab Q5M PRN SL ANGINA; Start 10/06/18 at 09:30 Bisacodyl (Dulcolax) 10 mg DAILY PRN PO CONSTIPATION; Start 10/06/18 at 09:30 Donepezil HCl (Aricept) 5 mg QHS PO Last administered on 10/26/18 21:53; Admin Dose 5 MG; Start 10/06/18 at 21:00 Lactulose (Enulose) 20 gm TID PRN PO CONSTIPATION; Start 10/06/18 at 09:30 Levothyroxine Sodium (Synthroid) 50 mcg BEFORE BREAKFAST PO Last administered on 10/27/18 06:04; Admin Dose 50 MCG; Start 10/07/18 at 07:00 Mineral Oil (Fleet Mineral Oil Enema) 133 ml DAILY PRN [place] CONSTIPATION; Start 10/06/18 at 09:30 Multivitamins Therapeutic (Theragran) 1 tab DAILY PO Last administered on 10/27/18 09:02; Admin Dose 1 TAB; Start 10/07/18 at 09:00 Aspirin (Aspirin) 81 mg DAILY NGT Last administered on 10/11/18 09:35; Admin Dose 81 MG; Start 10/06/18 at 12:30; Status Hold Atorvastatin Calcium (Lipitor) 40 mg DAILY@21 NGT Last administered on 21:54; Admin Dose 40 MG; Start 10/06/18 at 21:00 Miscellaneous Information (Flu Vaccine Previously Dispensed) FLU VACCINE PREVIOU... NOTE PRN XX NOTE; Start 10/06/18 at 18:00 Amiodarone HCl (Cordarone) 200 mg BID PO Last administered on 10/27/18 09:03; Admin Dose 200 MG; Start 10/09/18 at 21:00 Famotidine (Pepcid) 20 mg DAILY NGT Last administered on 10/27/18 09:02; Admin Dose 20 MG; Start 10/10/18 at 09:00 Polyethylene Glycol (Miralax) 17 gm BID PRN PO constipation; Start 10/10/18 at 22:00 Metoprolol Tartrate (Lopressor) 25 mg BID PO Last administered on 10/27/18 09:03; Admin Dose 25 MG; Start 10/12/18 at 15:00 Metoprolol Tartrate (Lopressor) 5 mg Q4H PRN IV HR>110 Hold SBP<100 Last administered on 10/20/18 11:40; Admin Dose 5 MG; Start 10/12/18 at 15:00 Levetiracetam (Keppra Liquid) 1,000 mg BID GTB Last administered on 10/27/18 09:02; Admin Dose 1,000 MG; Start 10/14/18 at 21:00 Lorazepam (Ativan) 1 mg Q4H PRN IV SEIZURES Last administered on 10/26/18 09:13; Admin Dose 1 MG; Start 10/16/18 at 12:00 Morphine Sulfate (morphine) 1 mg Q4H PRN IV .SEVERE PAIN 7-10 Last administered on 10/27/18 09:01; Admin Dose 1 MG; Start 10/16/18 at 15:45 Epoetin Nile (Epogen (Non Esrd/Non Oncology)) 6,000 units MoWeFr@17 SC Last administered on 10/25/18 18:23; Admin Dose 6,000 UNITS; Start 10/18/18 at 17:00 Quetiapine Fumarate (Seroquel) 12.5 mg QID PRN NGT anxiety/agitation Last administered on 10/23/18 12:08; Admin Dose 12.5 MG; Start 10/18/18 at 14:30 Quetiapine Fumarate (Seroquel) 12.5 mg QHS NGT Last administered on 10/26/18 21:54; Admin Dose 12.5 MG; Start 10/19/18 at 21:00 Hydralazine HCl (Apresoline) 25 mg Q6 NGT Last administered on 10/27/18 12:42; Admin Dose 25 MG; Start 10/20/18 at 12:00 Hydralazine HCl (Apresoline) 5 mg Q8H PRN IV sbp >160; Start 10/20/18 at 12:00 Miscellaneous Information (Pending Santyl Order For Wound Care) This patient h a... PRN PRN XX WOUND CARE; Start 10/21/18 at 07:30 Valproate Sodium (Depakene Liquid Cup) 1,000 mg Q8 GTB Last administered on 10/26/18 21:49; Admin Dose 1,000 MG; Start 10/22/18 at 22:00 Enoxaparin Sodium (Lovenox) 70 mg BID SC Last administered on 10/27/18at 09:17; Admin Dose 70 MG; Start 10/23/18 at 21:00 ALEXI SINGH Oct 27, 2018 13:15
[2018-10-27] MEDS: LORAZEPAM 2 MG INJ IV PRN (13:25)
--- NOTE | 2018-10-27 13:36 | CONS ---
Consultation Date/Type/Reason Admit Date/Time Oct 06, 2018 at 09:29 Initial Consult Date SUBJECTIVE: Pt is awake, afebrile. Looks comfortable. VS: stable T: 98.3 LABS: reviewed. WBC- 5.2 Allergy: Penicillin, clindamycin Physical examination: GEN:Well-developed chronically ill-appearing elderly woman. The patient is in no distress. HENT: Head atraumatic normocephalic. Neck is supple. PULM: Chest rise symmetrical, breath sounds with crackles. Heart: S1-S2, tachycardic, irregular. Abdomen soft bowel sounds hypoactive. Extremities with dependent edema Assessment: 1. S/p sepsis 2. S/p E coli bacteremia secondary to urinary tract infection 3. Acute hypoxemic respiratory failure===> extubated 4. S/p Healthcare associated pneumonia, possibly aspiration 4. S/p UMBERTO 5. Non-ST elevation AR 6. Atrial fibrillation status post RVR 7. Seizures 8. Encephalopathy 9. dysphagia with g-tube feedings Plan: Patient remains unchanged. Still unable to move extremities. Continue present care/pulmonary toilet, aspiration precautions. GI and Pulm rec. Continue to monitor off of antbx. Prognosis poor Requesting Provider: MANUEL ALEMAN Date/Time of Note DATE: 10/27/18 TIME: 13:34 Exam/Review of Systems Exam Vitals Vital Signs Date Temp Pulse Resp B/P (MAP) Pulse Ox O2 O2 Flow FiO2 Time Delivery Rate 10/27/18 82 20 99 Nasal 2.0 12:37 Cannula 10/27/18 98.3 139/79 11:42 (99) Intake and Output 10/26/18 10/26/18 10/27/18 1515:00 23:00 07:00 IntakeIntake Total 860 ml 860 ml OutputOutput Total 1300 ml 700 ml BalanceBalance -440 ml 160 ml Results Result Diagram: 10/27/18 0631 10/27/18 0631 Results 24hrs Laboratory Tests Test 10/27/18 06:31 White Blood Count 5.2 Red Blood Count 3.33 L Hemoglobin 10.2 L Hematocrit 32.4 L Mean Corpuscular Volume 97.3 Mean Corpuscular Hemoglobin 30.6 Mean Corpuscular Hemoglobin Concent 31.5 L Red Cell Distribution Width 15.6 H Platelet Count 258 Mean Platelet Volume 11.1 H Immature Granulocytes % 0.200 Neutrophils % 62.1 Lymphocytes % 25.4 Monocytes % 11.3 H Eosinophils % 0.6 Basophils % 0.4 Nucleated Red Blood Cells % 0.0 Immature Granulocytes # 0.010 Neutrophils # 3.3 Lymphocytes # 1.3 Monocytes # 0.6 Eosinophils # 0.0 Basophils # 0.0 Nucleated Red Blood Cells # 0.0 Sodium Level 148 H Potassium Level 3.7 Chloride Level 114 H Carbon Dioxide Level 26 Anion Gap 8 Blood Urea Nitrogen 35 H Creatinine 0.98 Est Glomerular Filtrat Rate mL/min 57 L Glucose Level 132 Calcium Level 9.9 Phosphorus Level 3.0 Magnesium Level 1.7 Valproic Acid (Depakene) Level 87 Medications Medication Current Medications IV Flush (NS 3 ml) 3 ml PER PROTOCOL IV ; Start 10/06/18 at 09:30 Ondansetron HCl (Zofran Inj) 4 mg Q6H PRN IV NAUSEA/VOMITING; Start 10/06/18 at 09:30 Acetaminophen (Tylenol Tab) 650 mg Q6H PRN PO .PAIN 1-3 OR TEMP Last administered on 10/26/18at 13:11; Admin Dose 650 MG; Start 10/06/18 at 09:30 Acetaminophen/ Hydrocodone Bitart ([place] (5/325)) 1 tab Q6H PRN PO .MOD PAIN 4- 6; Start 10/06/18 at 09:30 Docusate Sodium (Colace) 100 mg Q12H PRN PO .CONSTIPATION; Start 10/06/18 at 09:30 Magnesium Hydroxide (Milk Of Mag) 30 ml DAILY PRN PO .CONSTIPATION; Start 10/06/18 at 09:30 Albuterol/ Ipratropium (Duoneb) 3 ml Q4H RESP THERAPY PRN HHN SHORTNESS OF BREATH Last administered on 10/27/18at 12:37; Admin Dose 3 ML; Start 10/06/18 at 09:30 Nitroglycerin (Nitroglycerin (Sl Tab) 0.4 Mg) 1 tab Q5M PRN SL ANGINA; Start 10/06/18 at 09:30 Bisacodyl (Dulcolax) 10 mg DAILY PRN PO CONSTIPATION; Start 10/06/18 at 09:30 Donepezil HCl (Aricept) 5 mg QHS PO Last administered on 10/26/18at 21:53; Admin Dose 5 MG; Start 10/06/18 at 21:00 Lactulose (Enulose) 20 gm TID PRN PO CONSTIPATION; Start 10/06/18 at 09:30 Levothyroxine Sodium (Synthroid) 50 mcg BEFORE BREAKFAST PO Last administered on 10/27/18 06:04; Admin Dose 50 MCG; Start 10/07/18 at 07:00 Mineral Oil (Fleet Mineral Oil Enema) 133 ml DAILY PRN [place] CONSTIPATION; Start 10/06/18 at 09:30 Multivitamins Therapeutic (Theragran) 1 tab DAILY PO Last administered on 10/27/18 09:02; Admin Dose 1 TAB; Start 10/07/18 at 09:00 Aspirin (Aspirin) 81 mg DAILY NGT Last administered on 10/11/18 09:35; Admin Dose 81 MG; Start 10/06/18 at 12:30; Status Hold Atorvastatin Calcium (Lipitor) 40 mg DAILY@21 NGT Last administered on 10/26/18 t 21:54; Admin Dose 40 MG; Start 10/06/18 at 21:00 Miscellaneous Information (Flu Vaccine Previously Dispensed) FLU VACCINE PREVIOU... NOTE PRN XX NOTE; Start 10/06/18 at 18:00 Amiodarone HCl (Cordarone) 200 mg BID PO Last administered on 10/27/18 09:03; Admin Dose 200 MG; Start 10/09/18 at 21:00 Famotidine (Pepcid) 20 mg DAILY NGT Last administered on 10/27/18 09:02; Admin Dose 20 MG; Start 10/10/18 at 09:00 Polyethylene Glycol (Miralax) 17 gm BID PRN PO constipation; Start 10/10/18 at 22:00 Metoprolol Tartrate (Lopressor) 25 mg BID PO Last administered on 10/27/18 09:03; Admin Dose 25 MG; Start 10/12/18 at 15:00 Metoprolol Tartrate (Lopressor) 5 mg Q4H PRN IV HR>110 Hold SBP<100 Last administered on 10/20/18 11:40; Admin Dose 5 MG; Start 10/12/18 at 15:00 Levetiracetam (Keppra Liquid) 1,000 mg BID GTB Last administered on 10/27/18 09:02; Admin Dose 1,000 MG; Start 10/14/18 at 21:00 Lorazepam (Ativan) 1 mg Q4H PRN IV SEIZURES Last administered on 10/27/18 13:25; Admin Dose 1 MG; Start 10/16/18 at 12:00 Morphine Sulfate (morphine) 1 mg Q4H PRN IV .SEVERE PAIN 7-10 Last administered on 10/27/18 09:01; Admin Dose 1 MG; Start 10/16/18 at 15:45 Epoetin Nile (Epogen (Non Esrd/Non Oncology)) 6,000 units MoWeFr@17 SC Last administered on 10/25/18 18:23; Admin Dose 6,000 UNITS; Start 10/18/18 at 17:00 Quetiapine Fumarate (Seroquel) 12.5 mg QID PRN NGT anxiety/agitation Last administered on 10/23/18 12:08; Admin Dose 12.5 MG; Start 10/18/18 at 14:30 Quetiapine Fumarate (Seroquel) 12.5 mg QHS NGT Last administered on 10/26/18 21:54; Admin Dose 12.5 MG; Start 10/19/18 at 21:00 Hydralazine HCl (Apresoline) 25 mg Q6 NGT Last administered on 10/27/18 12:42; Admin Dose 25 MG; Start 10/20/18 at 12:00 Hydralazine HCl (Apresoline) 5 mg Q8H PRN IV sbp >160; Start 10/20/18 at 12:00 Miscellaneous Information (Pending [facility] Order For Wound Care) This patient martin... PRN PRN XX WOUND CARE; Start 10/21/18 at 07:30 Valproate Sodium (Depakene Liquid Cup) 1,000 mg Q8 GTB Last administered on 10/27/18 13:25; Admin Dose 1,000 MG; Start 10/22/18 at 22:00 Enoxaparin Sodium (Lovenox) 70 mg BID SC Last administered on 10/27/18 09:17; Admin Dose 70 MG; Start 10/23/18 at 21:00 NORA BROWNLEE Oct 27, 2018 13:36
--- NOTE | 2018-10-27 14:56 | CONS ---
Assessment/Plan Assessment/Plan Hospital Course (Demo Recall) IMP: 1. Nstemi- in setting of renal failure and shock. Downtrended 2.Shock-improved off pressors with actual HTN now 3.Tachycardia-S tach at this time 4.UTI 5.PAF with RVR-now back in SR again 6.Renal failure 7.Dyslipidemia 8.Sz d/o 9. Hypothyroid 10. anemia-s/p transfusions 11. Resp failure s/p extubation. stable 12. Dysphagia s/p PEG Recc: -Tele -Contineu current BB/hydralazine with reasonable BP -Follow rhythm and rate closely -Continue abx's and f/u cx data -Continue statin -now in SR on po amio. Will follow rhythm clsoely -Lovenox BID if ok to continue given seizures -follow resp status and volume status closely -Continue keppra Consultation Date/Type/Reason Admit Date/Time Oct 06, 2018 at 09:29 Initial Consult Date 10/06/18 Type of Consult Cardiology Reason for Consultation AF Requesting Provider: MANUEL ALEMAN Date/Time of Note DATE: 10/27/18 TIME: 14:54 Exam/Review of Systems Vital Signs Vitals Vital Signs Date Temp Pulse Resp B/P (MAP) Pulse Ox O2 O2 Flow FiO2 Time Delivery Rate 10/27/18 82 20 99 Nasal 2.0 12:37 Cannula 10/27/18 98.3 139/79 11:42 (99) Intake and Output 10/26/18 10/26/18 10/27/18 1515:00 23:00 07:00 IntakeIntake Total 860 ml 860 ml OutputOutput Total 1300 ml 700 ml BalanceBalance -440 ml 160 ml Exam Exam Review of Systems: CONSTITUTIONAL: No fevers, chills. PULMONARY: No sob CARDIOVASCULAR: No chest pain/palpitations GASTROINTESTINAL: No nausea/vomiting. GENITOURINARY: No hematuria/dysuria. MUSCULOSKELETAL: No myagias/arthalgias. PSYCHIATRIC: The patient denies depression. NEUROLOGIC: encephalopathic Constitutional: other (encephalopathic) Psych: no complaints Head: normocephalic ENMT: mucosa pink and moist Neck: supple, jvd (9 cm water) Respiratory: diminished breath sounds (at bases/B) Cardiovascular: irregular rhythm Gastrointestinal: soft, non-tender Musculoskeletal: muscle weakness (generalized) Extremities: edema (trace/B) Neurological: other (No focal deficits) Labs Result Diagram: 10/27/18 0631 10/27/18 0631 Results 24hrs Laboratory Tests Test 10/27/18 06:31 White Blood Count 5.2 Red Blood Count 3.33 L Hemoglobin 10.2 L Hematocrit 32.4 L Mean Corpuscular Volume 97.3 Mean Corpuscular Hemoglobin 30.6 Mean Corpuscular Hemoglobin Concent 31.5 L Red Cell Distribution Width 15.6 H Platelet Count 258 Mean Platelet Volume 11.1 H Immature Granulocytes % 0.200 Neutrophils % 62.1 Lymphocytes % 25.4 Monocytes % 11.3 H Eosinophils % 0.6 Basophils % 0.4 Nucleated Red Blood Cells % 0.0 Immature Granulocytes # 0.010 Neutrophils # 3.3 Lymphocytes # 1.3 Monocytes # 0.6 Eosinophils # 0.0 Basophils # 0.0 Nucleated Red Blood Cells # 0.0 Sodium Level 148 H Potassium Level 3.7 Chloride Level 114 H Carbon Dioxide Level 26 Anion Gap 8 Blood Urea Nitrogen 35 H Creatinine 0.98 Est Glomerular Filtrat Rate mL/min 57 L Glucose Level 132 Calcium Level 9.9 Phosphorus Level 3.0 Magnesium Level 1.7 Valproic Acid (Depakene) Level 87 Medications Medications Current Medications IV Flush (NS 3 ml) 3 ml PER PROTOCOL IV ; Start 10/06/18 at 09:30 Ondansetron HCl (Zofran Inj) 4 mg Q6H PRN IV NAUSEA/VOMITING; Start 10/06/18 at 09:30 Acetaminophen (Tylenol Tab) 650 mg Q6H PRN PO .PAIN 1-3 OR TEMP Last administered on 10/26/18at 13:11; Admin Dose 650 MG; Start 10/06/18 at 09:30 Acetaminophen/ Hydrocodone Bitart ([place] (5/325)) 1 tab Q6H PRN PO .MOD PAIN 4- 6; Start 10/06/18 at 09:30 Docusate Sodium (Colace) 100 mg Q12H PRN PO .CONSTIPATION; Start 10/06/18 at 09:30 Magnesium Hydroxide (Milk Of Mag) 30 ml DAILY PRN PO .CONSTIPATION; Start 10/06/18 at 09:30 Albuterol/ Ipratropium (Duoneb) 3 ml Q4H RESP THERAPY PRN HHN SHORTNESS OF BREATH Last administered on 10/27/18 12:37; Admin Dose 3 ML; Start 10/06/18 at 09:30 Nitroglycerin (Nitroglycerin (Sl Tab) 0.4 Mg) 1 tab Q5M PRN SL ANGINA; Start 10/06/18 at 09:30 Bisacodyl (Dulcolax) 10 mg DAILY PRN PO CONSTIPATION; Start 10/06/18 at 09:30 Donepezil HCl (Aricept) 5 mg QHS PO Last administered on 10/26/18 21:53; Admin Dose 5 MG; Start 10/06/18 at 21:00 Lactulose (Enulose) 20 gm TID PRN PO CONSTIPATION; Start 10/06/18 at 09:30 Levothyroxine Sodium (Synthroid) 50 mcg BEFORE BREAKFAST PO Last administered on 10/27/18 06:04; Admin Dose 50 MCG; Start 10/07/18 at 07:00 Mineral Oil (Fleet Mineral Oil Enema) 133 ml DAILY PRN [place] CONSTIPATION; Start 10/06/18 at 09:30 Multivitamins Therapeutic (Theragran) 1 tab DAILY PO Last administered on 10/27/18 09:02; Admin Dose 1 TAB; Start 10/07/18 at 09:00 Aspirin (Aspirin) 81 mg DAILY NGT Last administered on 10/11/18 09:35; Admin Dose 81 MG; Start 10/06/18 at 12:30; Status Hold Atorvastatin Calcium (Lipitor) 40 mg DAILY@21 NGT Last administered on 10/05 21:54; Admin Dose 40 MG; Start 10/06/18 at 21:00 Miscellaneous Information (Flu Vaccine Previously Dispensed) FLU VACCINE PREVIOU... NOTE PRN XX NOTE; Start 10/06/18 at 18:00 Amiodarone HCl (Cordarone) 200 mg BID PO Last administered on 10/27/18 09:03; Admin Dose 200 MG; Start 10/09/18 at 21:00 Famotidine (Pepcid) 20 mg DAILY NGT Last administered on 10/27/18 09:02; Admin Dose 20 MG; Start 10/10/18 at 09:00 Polyethylene Glycol (Miralax) 17 gm BID PRN PO constipation; Start 10/10/18 at 22:00 Metoprolol Tartrate (Lopressor) 25 mg BID PO Last administered on 10/27/18 09:03; Admin Dose 25 MG; Start 10/12/18 at 15:00 Metoprolol Tartrate (Lopressor) 5 mg Q4H PRN IV HR>110 Hold SBP<100 Last administered on 10/20/18 11:40; Admin Dose 5 MG; Start 10/12/18 at 15:00 Levetiracetam (Keppra Liquid) 1,000 mg BID GTB Last administered on 10/27/18 09:02; Admin Dose 1,000 MG; Start 10/14/18 at 21:00 Lorazepam (Ativan) 1 mg Q4H PRN IV SEIZURES Last administered on 10/27/18 13:25; Admin Dose 1 MG; Start 10/16/18 at 12:00 Morphine Sulfate (morphine) 1 mg Q4H PRN IV .SEVERE PAIN 7-10 Last administered on 10/27/18 09:01; Admin Dose 1 MG; Start 10/16/18 at 15:45 Epoetin Nile (Epogen (Non Esrd/Non Oncology)) 6,000 units MoWeFr@17 SC Last administered on 10/25/18 18:23; Admin Dose 6,000 UNITS; Start 10/18/18 at 17:00 Quetiapine Fumarate (Seroquel) 12.5 mg QID PRN NGT anxiety/agitation Last administered on 10/23/18 12:08; Admin Dose 12.5 MG; Start 10/18/18 at 14:30 Quetiapine Fumarate (Seroquel) 12.5 mg QHS NGT Last administered on 10/26/18 21:54; Admin Dose 12.5 MG; Start 10/19/18 at 21:00 Hydralazine HCl (Apresoline) 25 mg Q6 NGT Last administered on 10/27/18 12:42; Admin Dose 25 MG; Start 10/20/18 at 12:00 Hydralazine HCl (Apresoline) 5 mg Q8H PRN IV sbp >160; Start 10/20/18 at 12:00 [facility] This patient martin. .. PRN PRN XX WOUND CARE; Start 10/21/18 at 07:30 Valproate Sodium (Depakene Liquid Cup) 1,000 mg Q8 GTB Last administered on 10/27/18at 13:25; Admin Dose 1,000 MG; Start 10/22/18 at 22:00 Enoxaparin Sodium (Lovenox) 70 mg BID SC Last administered on 10/27/18at 09:17; Admin Dose 70 MG; Start 10/23/18 at 21:00 ANGELA CARY Oct 27, 2018 14:56
--- NOTE | 2018-10-27 15:54 | CONS ---
Consult Date/Type/Reason Admit Date/Time Oct 06, 2018 at 09:29 Initial Consult Date 10/06/18 Type of Consultation: Pulm/CCM Requesting Provider: MANUEL ALEMAN Date/Time of Note DATE: 10/27/18 TIME: 15:53 Subjective No events overnight. Objective Vitals Vital Signs Date Temp Pulse Resp B/P (MAP) Pulse Ox O2 O2 Flow FiO2 Time Delivery Rate 10/27/18 98.0 83 18 141/72 94 Nasal 15:47 (95) Cannula 10/27/18 2.0 12:37 Intake and Output 10/26/18 10/26/18 10/27/18 1515:00 23:00 07:00 IntakeIntake Total 860 ml 860 ml OutputOutput Total 1300 ml 700 ml BalanceBalance -440 ml 160 ml Exam HEENT: Neck supple; no JVD; no LAD CVS: RRR, S1 and S2 CHEST: coarse rhonchi B/L ABD: Soft, NT, + BS EXT: No c/c/e Results/Medications Result Diagram: 10/27/18 0631 10/27/18 0631 Results 24 hrs Laboratory Tests Test 10/27/18 06:31 White Blood Count 5.2 Red Blood Count 3.33 L Hemoglobin 10.2 L Hematocrit 32.4 L Mean Corpuscular Volume 97.3 Mean Corpuscular Hemoglobin 30.6 Mean Corpuscular Hemoglobin Concent 31.5 L Red Cell Distribution Width 15.6 H Platelet Count 258 Mean Platelet Volume 11.1 H Immature Granulocytes % 0.200 Neutrophils % 62.1 Lymphocytes % 25.4 Monocytes % 11.3 H Eosinophils % 0.6 Basophils % 0.4 Nucleated Red Blood Cells % 0.0 Immature Granulocytes # 0.010 Neutrophils # 3.3 Lymphocytes # 1.3 Monocytes # 0.6 Eosinophils # 0.0 Basophils # 0.0 Nucleated Red Blood Cells # 0.0 Sodium Level 148 H Potassium Level 3.7 Chloride Level 114 H Carbon Dioxide Level 26 Anion Gap 8 Blood Urea Nitrogen 35 H Creatinine 0.98 Est Glomerular Filtrat Rate mL/min 57 L Glucose Level 132 Calcium Level 9.9 Phosphorus Level 3.0 Magnesium Level 1.7 Valproic Acid (Depakene) Level 87 Home Meds Active Scripts Vancomycin Hcl (Vancocin) 1 Gm Soln, 500 MG IV Q12 for 7 Days, VIAL Prov:NUGENT,ALEN V. DIRECTOR OF MEDICAL STAFF SERVICES 08/31/18 Aztreonam (AZTREONAM) 1 Gm Vial, 1 GM IV* Q12 for 7 Days, VIAL 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 DIRECTOR OF MEDICAL STAFF SERVICES 08/31/18 Reported Medications Donepezil* (Donepezil*) 5 Mg Tablet, 5 MG PO QHS, #30 TAB 08/28/18 Divalproex Sodium* (Depakote*) 500 Mg Tablet.dr, 500 MG PO BID, #120 TAB 08/28/18 Docusate Sodium* (Colace*) 100 Mg Capsule, 100 MG PO BID PRN for CONSTIPATION, #60 CAP 08/28/18 Atorvastatin Calcium (Atorvastatin Calcium) 10 Mg Tablet, 10 MG PO QHS, #30 TAB 08/28/18 Lorazepam* (Lorazepam*) 1 Mg Tablet, 1 MG PO BID PRN for ANXIETY, #30 TAB 08/28/18 Lactulose* (Lactulose*) 20 Gm/30 Ml Solution, 20 GM PO TID PRN for CONSTIPATION, ML 08/28/18 Trazodone Hcl* (Trazodone Hcl*) 100 Mg Tablet, 100 MG PO QHS, #30 TAB 08/28/18 Quetiapine Fumarate* (Seroquel*) 200 Mg Tablet, 200 MG PO HS, #30 TAB 08/28/18 Sennosides* (Senna Lax*) 8.6 Mg Tablet, 2 TAB PO QHS PRN for CONSTIPATION, TAB 08/28/18 Multivitamins* (Theragran*) 1 Tab Tab, 1 TAB PO DAILY, TAB 08/28/18 Polyethylene Glycol* (Miralax*) 17 Gm Powd.pack, 17 GM PO BID, #60 PACKET 08/28/18 Metoprolol Tartrate* (Lopressor*) 25 Mg Tab, 12.5 MG PO DAILY, #60 TAB HOLD IF SBP<115 OR HR<60 08/28/18 Levothyroxine Sodium* (Levothyroxine Sodium*) 50 Mcg Tablet, 50 MCG PO BEFORE BREAKFAST, #30 TAB 08/28/18 Levetiracetam* (Keppra*) 500 Mg Tablet, 500 MG PO BID, TAB 08/28/18 Gabapentin* (Gabapentin*) 400 Mg Capsule, 400 MG PO TID, #90 CAP 08/28/18 Phenylephrine HCl/[place] Butter* (Preparation H* Suppository) 1 Each Supp.rect, 1 EACH [place] DAILY PRN for CONSTIPATION, SUPP.RECT 08/28/18 Mineral Oil* (Fleet* Mineral Oil Enema) 133 Ml Oil, 133 ML [place] DAILY PRN for CONSTIPATION, ENEMA 08/28/18 Acetaminophen* (Acetaminophen*) 650 Mg Tablet, 650 MG PO DAILY PRN for PAIN AND OR ELEVATED TEMP, #30 TAB 08/28/18 Bisacodyl* (Bisacodyl*) 5 Mg Tablet.dr, 10 MG PO DAILY PRN for CONSTIPATION, TAB 08/28/18 Medications Current Medications IV Flush (NS 3 ml) 3 ml PER PROTOCOL IV ; Start 10/06/18 at 09:30 Ondansetron HCl (Zofran Inj) 4 mg Q6H PRN IV NAUSEA/VOMITING; Start 10/06/18 at 09:30 Acetaminophen (Tylenol Tab) 650 mg Q6H PRN PO .PAIN 1-3 OR TEMP Last administered on 10/26/18at 13:11; Admin Dose 650 MG; Start 10/06/18 at 09:30 Acetaminophen/ Hydrocodone Bitart ([place] (5/325)) 1 tab Q6H PRN PO .MOD PAIN 4- 6; Start 10/06/18 at 09:30 Docusate Sodium (Colace) 100 mg Q12H PRN PO .CONSTIPATION; Start 10/06/18 at 09:30 Magnesium Hydroxide (Milk Of Mag) 30 ml DAILY PRN PO .CONSTIPATION; Start 10/06/18 at 09:30 Albuterol/ Ipratropium (Duoneb) 3 ml Q4H RESP THERAPY PRN HHN SHORTNESS OF BREATH Last administered on 10/27/18at 12:37; Admin Dose 3 ML; Start 10/06/18 at 09:30 Nitroglycerin (Nitroglycerin (Sl Tab) 0.4 Mg) 1 tab Q5M PRN SL ANGINA; Start 10/06/18 at 09:30 Bisacodyl (Dulcolax) 10 mg DAILY PRN PO CONSTIPATION; Start 10/06/18 at 09:30 Donepezil HCl (Aricept) 5 mg QHS PO Last administered on 10/26/18at 21:53; Admin Dose 5 MG; Start 10/06/18 at 21:00 Lactulose (Enulose) 20 gm TID PRN PO CONSTIPATION; Start 10/06/18 at 09:30 Levothyroxine Sodium (Synthroid) 50 mcg BEFORE BREAKFAST PO Last administered on 10/27/18 06:04; Admin Dose 50 MCG; Start 10/07/18 at 07:00 Mineral Oil (Fleet Mineral Oil Enema) 133 ml DAILY PRN [place] CONSTIPATION; Start 10/06/18 at 09:30 Multivitamins Therapeutic (Theragran) 1 tab DAILY PO Last administered on 10/27/18 09:02; Admin Dose 1 TAB; Start 10/07/18 at 09:00 Aspirin (Aspirin) 81 mg DAILY NGT Last administered on 10/11/18 09:35; Admin Dose 81 MG; Start 10/06/18 at 12:30; Status Hold Atorvastatin Calcium (Lipitor) 40 mg DAILY@21 NGT Last administered on 10/26/18 21:54; Admin Dose 40 MG; Start 10/06/18 at 21:00 Miscellaneous Information (Flu Vaccine Previously Dispensed) FLU VACCINE PREVIOU... NOTE PRN XX NOTE; Start 10/06/18 at 18:00 Amiodarone HCl (Cordarone) 200 mg BID PO Last administered on 10/27/18 09:03; Admin Dose 200 MG; Start 10/09/18 at 21:00 Famotidine (Pepcid) 20 mg DAILY NGT Last administered on 10/27/18 09:02; Admin Dose 20 MG; Start 10/10/18 at 09:00 Polyethylene Glycol (Miralax) 17 gm BID PRN PO constipation; Start 10/10/18 at 22:00 Metoprolol Tartrate (Lopressor) 25 mg BID PO Last administered on 10/27/18 09:03; Admin Dose 25 MG; Start 10/12/18 at 15:00 Metoprolol Tartrate (Lopressor) 5 mg Q4H PRN IV HR>110 Hold SBP<100 Last administered on 10/20/18 11:40; Admin Dose 5 MG; Start 10/12/18 at 15:00 Levetiracetam (Keppra Liquid) 1,000 mg BID GTB Last administered on 3/24/19at 09:02; Admin Dose 1,000 MG; Start 10/14/18 at 21:00 Lorazepam (Ativan) 1 mg Q4H PRN IV SEIZURES Last administered on 10/27/18 13:25; Admin Dose 1 MG; Start 10/16/18 at 12:00 Morphine Sulfate (morphine) 1 mg Q4H PRN IV .SEVERE PAIN 7-10 Last administered on 10/27/18 09:01; Admin Dose 1 MG; Start 10/16/18 at 15:45 Epoetin Nile (Epogen (Non Esrd/Non Oncology)) 6,000 units MoWeFr@17 SC Last administered on 10/25/18 18:23; Admin Dose 6,000 UNITS; Start 10/18/18 at 17:00 Quetiapine Fumarate (Seroquel) 12.5 mg QID PRN NGT anxiety/agitation Last administered on 10/23/18 12:08; Admin Dose 12.5 MG; Start 10/18/18 at 14:30 Quetiapine Fumarate (Seroquel) 12.5 mg QHS NGT Last administered on 10/26/18 21:54; Admin Dose 12.5 MG; Start 10/19/18 at 21:00 Hydralazine HCl (Apresoline) 25 mg Q6 NGT Last administered on 10/27/18 12:42; Admin Dose 25 MG; Start 10/20/18 at 12:00 Hydralazine HCl (Apresoline) 5 mg Q8H PRN IV sbp >160; Start 10/20/18 at 12:00 Miscellaneous Information (Pending [facility] Order For Wound Care) This patient martin... PRN PRN XX WOUND CARE; Start 10/21/18 at 07:30 Valproate Sodium (Depakene Liquid Cup) 1,000 mg Q8 GTB Last administered on 10/27/18 13:25; Admin Dose 1,000 MG; Start 10/22/18 at 22:00 Enoxaparin Sodium (Lovenox) 70 mg BID SC Last administered on 10/27/18 09:17; Admin Dose 70 MG; Start 10/23/18 at 21:00 Assessment/Plan Assessment/Plan (Daily) IMP: 1. Status post septic Shock: likely due to urinary tract infection 2. s/p Respiratory Failure 3. UMBERTO-- pre-renal v 4. NSTEMI: type II 5. Afib with RVR--now in SR 6. History of dementia 7. Anemia 8. HTN RECS: 1. Strict aspiration precautions 2. Continue TFs 3. Aggressive suctioning/CPT MARICEL REDDY MD Oct 27, 2018 15:54
[2018-10-27] MEDS: ATORVASTATIN 40 MG TAB NGT SCH (21:52)
[2018-10-27] MEDS: DONEPEZIL 5 MG TAB PO SCH (21:53)
[2018-10-27] MEDS: QUETIAPINE 25 MG TAB NGT SCH (21:55)
[2018-10-28] VITALS (11 sets, daily range): BP systolic 120–152; BP diastolic 66–86; PULSE 63–89; RESP 18–20
[2018-10-28] MEDS: VALPROIC ACID LIQUID CUP 250 MG/5 ML CUP GTB SCH ×3 (05:28→21:49)
[2018-10-28] MEDS: morphine 2 MG INJ IV PRN ×2 (05:35→17:51)
[2018-10-28] MEDS: LEVOTHYROXINE 50 MCG TAB PO SCH (06:58)
[2018-10-28] MEDS: BALSAM PERU/CASTOR OIL 60 GM TUBE TOP SCH (09:00)
[2018-10-28] MEDS: LEVETIRACETAM (100 MG/ML) 5ML CUP GTB SCH ×2 (09:53→20:49)
[2018-10-28] MEDS: FAMOTIDINE 20 MG TAB NGT SCH (09:53)
[2018-10-28] MEDS: MULTIVITAMINS THERAPEUTIC TAB PO SCH (09:53)
[2018-10-28] MEDS: METOPROLOL 25 MG TAB PO SCH ×2 (09:57→20:49)
[2018-10-28] MEDS: AMIODARONE 200 MG TAB PO SCH ×2 (09:57→20:50)
[2018-10-28] MEDS: ENOXAPARIN 80 MG/0.8 ML SYG SC SCH (10:05)
--- NOTE | 2018-10-28 11:52 | CONS ---
Assessment/Plan Assessment/Plan Assessment/Plan (Daily) 1. Non Oliguric Acute kidney injury due to ATN from septic shock - Improving 2. Septic shock due to UTI 3. acute UTI with Urine Cx growing E.Coli 4. Acute hypoxic respiratory failure intubated on ventilator - s/p Extubation on 10/18/18 5. H/o HTN 6 H/o HL 7. H/o Hypothyroidism 8. E.Coli bacteremia Plan: Na 148, BUN/Cr 37/0.9- if Na continues to trend - will consider IVF D5W - Hb 9.6 on epogen 6000 units MWF for anemia - UO 1.9 L still intermittently confused, Bp stable s/p Bioethics meeting on 10/24/18- DNR status will follow up Patient seen in collaboration with Dr Joni Bennett Consultation Date/Type/Reason Admit Date/Time Oct 06, 2018 at 09:29 Initial Consult Date 10/06/18 Type of Consult NEPHROLOGY Requesting Provider: MANUEL ALEMAN Date/Time of Note DATE: 10/28/18 TIME: 11:52 Exam/Review of Systems Exam Vitals Vital Signs Date Temp Pulse Resp B/P (MAP) Pulse Ox O2 O2 Flow FiO2 Time Delivery Rate 10/28/18 99.2 73 18 120/68 95 11:44 (85) 10/28/18 Nasal 3.0 08:00 Cannula Intake and Output 10/27/18 10/27/18 10/28/18 1515:00 23:00 07:00 IntakeIntake Total 860 ml 860 ml OutputOutput Total 1200 ml 700 ml BalanceBalance -340 ml 160 ml Exam Constitutional: alert, well developed Respiratory: diminished breath sounds (bilaterally at bases) Cardiovascular: nl pulses, other (s1s2) Gastrointestinal: soft, non-tender Musculoskeletal: muscle weakness Extremities: normal pulses Neurological: confused Lymph: nontender Results Result Diagram: 10/28/18 0531 10/28/18 0531 Results 24hrs Laboratory Tests Test 10/28/18 05:31 White Blood Count 4.8 Red Blood Count 3.08 L Hemoglobin 9.6 L Hematocrit 30.8 L Mean Corpuscular Volume 100.0 Mean Corpuscular Hemoglobin 31.2 Mean Corpuscular Hemoglobin Concent 31.2 L Red Cell Distribution Width 16.1 H Platelet Count 201 # Mean Platelet Volume 11.4 H Immature Granulocytes % 0.600 H Neutrophils % 42.1 Lymphocytes % 44.1 Monocytes % 12.2 H Eosinophils % 0.8 Basophils % 0.2 Nucleated Red Blood Cells % 0.0 Immature Granulocytes # 0.030 Neutrophils # 2.0 Lymphocytes # 2.1 Monocytes # 0.6 Eosinophils # 0.0 Basophils # 0.0 Nucleated Red Blood Cells # 0.0 Sodium Level 148 H Potassium Level 3.9 Chloride Level 113 H Carbon Dioxide Level 27 Anion Gap 8 Blood Urea Nitrogen 37 H Creatinine 0.92 Est Glomerular Filtrat Rate mL/min > 60 Glucose Level 96 Calcium Level 9.7 Valproic Acid (Depakene) Level 86 Medications Medication Current Medications IV Flush (NS 3 ml) 3 ml PER PROTOCOL IV ; Start 10/06/18 at 09:30 Ondansetron HCl (Zofran Inj) 4 mg Q6H PRN IV NAUSEA/VOMITING; Start 10/06/18 at 09:30 Acetaminophen (Tylenol Tab) 650 mg Q6H PRN PO .PAIN 1-3 OR TEMP Last ad ministered on 10/26/18at 13:11; Admin Dose 650 MG; Start 10/06/18 at 09:30 Acetaminophen/ Hydrocodone Bitart ([place] (5/325)) 1 tab Q6H PRN PO .MOD PAIN 4- 6; Start 10/06/18 at 09:30 Docusate Sodium (Colace) 100 mg Q12H PRN PO .CONSTIPATION; Start 10/06/18 at 09:30 Magnesium Hydroxide (Milk Of Mag) 30 ml DAILY PRN PO .CONSTIPATION; Start 10/06/18 at 09:30 Albuterol/ Ipratropium (Duoneb) 3 ml Q4H RESP THERAPY PRN HHN SHORTNESS OF BREATH Last administered on 10/27/18at 12:37; Admin Dose 3 ML; Start 10/06/18 at 09:30 Nitroglycerin (Nitroglycerin (Sl Tab) 0.4 Mg) 1 tab Q5M PRN SL ANGINA; Start 10/06/18 at 09:30 Bisacodyl (Dulcolax) 10 mg DAILY PRN PO CONSTIPATION; Start 10/06/18 at 09:30 Donepezil HCl (Aricept) 5 mg QHS PO Last administered on 10/27/18at 21:53; Admin Dose 5 MG; Start 10/06/18 at 21:00 Lactulose (Enulose) 20 gm TID PRN PO CONSTIPATION; Start 10/06/18 at 09:30 Levothyroxine Sodium (Synthroid) 50 mcg BEFORE BREAKFAST PO Last administered on 10/28/18 06:58; Admin Dose 50 MCG; Start 10/07/18 at 07:00 Mineral Oil (Fleet Mineral Oil Enema) 133 ml DAILY PRN [place] CONSTIPATION; Start 10/06/18 at 09:30 Multivitamins Therapeutic (Theragran) 1 tab DAILY PO Last administered on 10/28/18 09:53; Admin Dose 1 TAB; Start 10/07/18 at 09:00 Aspirin (Aspirin) 81 mg DAILY NGT Last administered on 10/11/18 09:35; Admin Dose 81 MG; Start 10/06/18 at 12:30; Status Hold Atorvastatin Calcium (Lipitor) 40 mg DAILY@21 NGT Last administered on 10/27/18 21:52; Admin Dose 40 MG; Start 10/06/18 at 21:00 Miscellaneous Information (Flu Vaccine Previously Dispensed) FLU VACCINE PREVIOU... NOTE PRN XX NOTE; Start 10/06/18 at 18:00 Amiodarone HCl (Cordarone) 200 mg BID PO Last administered on 10/28/18 09:57; Admin Dose 200 MG; Start 10/09/18 at 21:00 Famotidine (Pepcid) 20 mg DAILY NGT Last administered on 10/28/18 09:53; Admin Dose 20 MG; Start 10/10/18 at 09:00 Polyethylene Glycol (Miralax) 17 gm BID PRN PO constipation; Start 10/10/18 at 22:00 Metoprolol Tartrate (Lopressor) 25 mg BID PO Last administered on 10/28/18 09:57; Admin Dose 25 MG; Start 10/12/18 at 15:00 Metoprolol Tartrate (Lopressor) 5 mg Q4H PRN IV HR>110 Hold SBP<100 Last administered on 10/20/18 11:40; Admin Dose 5 MG; Start 10/12/18 at 15:00 Levetiracetam (Keppra Liquid) 1,000 mg BID GTB Last administered on 10/28/18 09:53; Admin Dose 1,000 MG; Start 10/14/18 at 21:00 Lorazepam (Ativan) 1 mg Q4H PRN IV SEIZURES Last administered on 10/27/18 13:25; Admin Dose 1 MG; Start 10/16/18 at 12:00 Morphine Sulfate (morphine) 1 mg Q4H PRN IV .SEVERE PAIN 7-10 Last administered on 10/28/18 05:35; Admin Dose 1 MG; Start 10/16/18 at 15:45 Epoetin Nile (Epogen (Non Esrd/Non Oncology)) 6,000 units MoWeFr@17 SC Last administered on 10/25/18 18:23; Admin Dose 6,000 UNITS; Start 10/18/18 at 17:00 Quetiapine Fumarate (Seroquel) 12.5 mg QID PRN NGT anxiety/agitation Last administered on 10/23/18 12:08; Admin Dose 12.5 MG; Start 10/18/18 at 14:30 Quetiapine Fumarate (Seroquel) 12.5 mg QHS NGT Last administered on 10/27/18 21:55; Admin Dose 12.5 MG; Start 10/19/18 at 21:00 Hydralazine HCl (Apresoline) 25 mg Q6 NGT Last administered on 10/28/18 05:31; Admin Dose 25 MG; Start 10/20/18 at 12:00 Hydralazine HCl (Apresoline) 5 mg Q8H PRN IV sbp >160; Start 10/20/18 at 12:00 [facility] This patient martin... PRN PRN XX WOUND CARE; Start 10/21/18 at 07:30 Valproate Sodium (Depakene Liquid Cup) 1,000 mg Q8 GTB Last administered on 10/28/18 05:28; Admin Dose 1,000 MG; Start 10/22/18 at 22:00 Enoxaparin Sodium (Lovenox) 70 mg BID SC Last administered on 10/28/18 10:05; Admin Dose 70 MG; Start 10/23/18 at 21:00 VALARIE BENNETT MD Oct 28, 2018 11:52
--- NOTE | 2018-10-28 11:59 | CONS ---
Assessment/Plan Assessment/Plan Hospital Course 67 F c/ dementia, epilepsy, and other comorbidities, who presents for management of cardiopulmonary Sx. She was noted to have a generalized convulsion on 10/08, for which neurology is consulted... Certainly her acute illness is lowering her seizure threshold.. CTH is without acute intracranial pathology EEG is notable for severe left hemispheric on diffuse slowing 10/12: breakthrough seizure --> ativan rescue Repeat EEG, 10/14, is without evidence of nonconvulsive status. Depakote level on 10/25 is 92 P: Cont depakote 1g tid for now. Repeat level in am. Cont Keppra 1000mg bid for now Ativan iv prn prolonged seizure or cluster OK to cont asa daily for primary stroke prevention given her afib Low dose seroquel prn agitation Continued medical management per primary Will follow Consultation Date/Type/Reason Admit Date/Time Oct 06, 2018 at 09:29 Type of Consult Neurology Reason for Consultation seizure Requesting Provider: MANUEL ALEMAN Date/Time of Note DATE: 10/28/18 TIME: 11:59 24 HR Interval Summary Free Text/Dictation Continues acute care. Exam Vital Signs Vitals Vital Signs Date Temp Pulse Resp B/P (MAP) Pulse Ox O2 O2 Flow FiO2 Time Delivery Rate 10/28/18 99.2 73 18 120/68 95 11:44 (85) 10/28/18 Nasal 3.0 08:00 Cannula Intake and Output 10/27/18 10/27/18 10/28/18 1515:00 23:00 07:00 IntakeIntake Total 860 ml 860 ml OutputOutput Total 1200 ml 700 ml BalanceBalance -340 ml 160 ml Exam PE: Gen Appearance: Appears very anxious HEENT: Normocephalic Cardiovascular: Regular rate Abdomen: Soft Extremities: Dry NE: The patient was awake and alert, though disoriented. Incomprehensibly verbal. Able to track. Unable to follow commands. Cranial nerve examination was limited by mental status. Pupils were equal and reactive to light. There was no afferent pupillary defect. Funduscopic examination was limited. Face was grossly symmetric, w/ present corneal and cough reflexes. Tone was slightly increased in her LUE. Muscle bulk was normal. Twitching of her L shoulder/arm was noted. The patient withdrew all extremities. Coordination and gait testing was limited by mental status. Arm and leg reflexes were symmetric. Beck's sign was absent. Plantar responses were flexor. CHEYENNE JEAN NP Oct 28, 2018 11:59 FROYLAN WOOD Oct 28, 2018 14:31
--- NOTE | 2018-10-28 12:29 | CONS ---
Assessment/Plan Assessment/Plan Hospital Course (Demo Recall) IMP: 1. Nstemi- in setting of renal failure and shock. Downtrended 2.Shock-improved off pressors with actual HTN now 3.Tachycardia-S tach at this time 4.UTI 5.PAF with RVR-now back in SR again 6.Renal failure 7.Dyslipidemia 8.Sz d/o 9. Hypothyroid 10. anemia-s/p transfusions 11. Resp failure s/p extubation. stable 12. Dysphagia s/p PEG 134. oral bleeding Recc: -Tele -Contineu current BB/hydralazine with reasonable BP -Follow rhythm and rate closely -Continue abx's and f/u cx data -Continue statin -now in SR on po amio. Will follow rhythm clsoely -follow resp status and volume status closely -Continue keppra -Hold lovenox given oral bleeding and follow for resolution Consultation Date/Type/Reason Admit Date/Time Oct 06, 2018 at 09:29 Initial Consult Date 10/06/18 Type of Consult Cardiology Reason for Consultation PAF Requesting Provider: MANUEL ALEMAN Date/Time of Note DATE: 10/28/18 TIME: 12:27 Exam/Review of Systems Vital Signs Vitals Vital Signs Date Temp Pulse Resp B/P (MAP) Pulse Ox O2 O2 Flow FiO2 Time Delivery Rate 10/28/18 99.2 73 18 120/68 95 11:44 (85) 10/28/18 Nasal 3.0 08:00 Cannula Intake and Output 10/27/18 10/27/18 10/28/18 1515:00 23:00 07:00 IntakeIntake Total 860 ml 860 ml OutputOutput Total 1200 ml 700 ml BalanceBalance -340 ml 160 ml Exam Exam Review of Systems: CONSTITUTIONAL: No fevers, chills. PULMONARY: bleeding from mouth CARDIOVASCULAR: No chest pain/palpitations GASTROINTESTINAL: No nausea/vomiting. GENITOURINARY: No hematuria/dysuria. MUSCULOSKELETAL: No myagias/arthalgias. PSYCHIATRIC: The patient denies depression. NEUROLOGIC: No weakness Constitutional: other (encephalopathic) Psych: no complaints Head: normocephalic ENMT: mucosa pink and moist Neck: supple, jvd (9 cm water) Respiratory: clear to auscultation Cardiovascular: regular rate and rhythm Gastrointestinal: soft, non-tender Musculoskeletal: muscle weakness (generalized) Extremities: edema (trace/B) Neurological: confused Labs Result Diagram: 10/28/18 0531 10/28/18 0531 Results 24hrs Laboratory Tests Test 10/28/18 05:31 White Blood Count 4.8 Red Blood Count 3.08 L Hemoglobin 9.6 L Hematocrit 30.8 L Mean Corpuscular Volume 100.0 Mean Corpuscular Hemoglobin 31.2 Mean Corpuscular Hemoglobin Concent 31.2 L Red Cell Distribution Width 16.1 H Platelet Count 201 # Mean Platelet Volume 11.4 H Immature Granulocytes % 0.600 H Neutrophils % 42.1 Lymphocytes % 44.1 Monocytes % 12.2 H Eosinophils % 0.8 Basophils % 0.2 Nucleated Red Blood Cells % 0.0 Immature Granulocytes # 0.030 Neutrophils # 2.0 Lymphocytes # 2.1 Monocytes # 0.6 Eosinophils # 0.0 Basophils # 0.0 Nucleated Red Blood Cells # 0.0 Sodium Level 148 H Potassium Level 3.9 Chloride Level 113 H Carbon Dioxide Level 27 Anion Gap 8 Blood Urea Nitrogen 37 H Creatinine 0.92 Est Glomerular Filtrat Rate mL/min > 60 Glucose Level 96 Calcium Level 9.7 Valproic Acid (Depakene) Level 86 Medications Medications Current Medications IV Flush (NS 3 ml) 3 ml PER PROTOCOL IV ; Start 10/06/18 at 09:30 Ondansetron HCl (Zofran Inj) 4 mg Q6H PRN IV NAUSEA/VOMITING; Start 10/06/18 at 09:30 Acetaminophen (Tylenol Tab) 650 mg Q6H PRN PO .PAIN 1-3 OR TEMP Last administered on 10/26/18at 13:11; Admin Dose 650 MG; Start 10/06/18 at 09:30 Acetaminophen/ Hydrocodone Bitart ([place] (5/325)) 1 tab Q6H PRN PO .MOD PAIN 4- 6; Start 10/06/18 at 09:30 Docusate Sodium (Colace) 100 mg Q12H PRN PO .CONSTIPATION; Start 10/06/18 at 09:30 Magnesium Hydroxide (Milk Of Mag) 30 ml DAILY PRN PO .CONSTIPATION; Start 10/06/18 at 09:30 Albuterol/ Ipratropium (Duoneb) 3 ml Q4H RESP THERAPY PRN HHN SHORTNESS OF BREATH Last administered on 10/27/18 12:37; Admin Dose 3 ML; Start 10/06/18 at 09:30 Nitroglycerin (Nitroglycerin (Sl Tab) 0.4 Mg) 1 tab Q5M PRN SL ANGINA; Start 10/06/18 at 09:30 Bisacodyl (Dulcolax) 10 mg DAILY PRN PO CONSTIPATION; Start 10/06/18 at 09:30 Donepezil HCl (Aricept) 5 mg QHS PO Last administered on 10/27/18 21:53; Admin Dose 5 MG; Start 10/06/18 at 21:00 Lactulose (Enulose) 20 gm TID PRN PO CONSTIPATION; Start 10/06/18 at 09:30 Levothyroxine Sodium (Synthroid) 50 mcg BEFORE BREAKFAST PO Last administered on 10/28/18 06:58; Admin Dose 50 MCG; Start 10/07/18 at 07:00 Mineral Oil (Fleet Mineral Oil Enema) 133 ml DAILY PRN [place] CONSTIPATION; Start 10/06/18 at 09:30 Multivitamins Therapeutic (Theragran) 1 tab DAILY PO Last administered on 10/28/18 09:53; Admin Dose 1 TAB; Start 10/07/18 at 09:00 Aspirin (Aspirin) 81 mg DAILY NGT Last administered on 10/11/18 09:35; Admin Dose 81 MG; Start 10/06/18 at 12:30; Status Hold Atorvastatin Calcium (Lipitor) 40 mg DAILY@21 NGT Last administered on 10/27/18 21:52; Admin Dose 40 MG; Start 10/06/18 at 21:00 Miscellaneous Information (Flu Vaccine Previously Dispensed) FLU VACCINE PREVIOU... NOTE PRN XX NOTE; Start 10/06/18 at 18:00 Amiodarone HCl (Cordarone) 200 mg BID PO Last administered on 10/28/18 09:57; Admin Dose 200 MG; Start 10/09/18 at 21:00 Famotidine (Pepcid) 20 mg DAILY NGT Last administered on 10/28/18 09:53; Admin Dose 20 MG; Start 10/10/18 at 09:00 Polyethylene Glycol (Miralax) 17 gm BID PRN PO constipation; Start 10/10/18 at 22:00 Metoprolol Tartrate (Lopressor) 25 mg BID PO Last administered on 10/28/18 09:57; Admin Dose 25 MG; Start 10/12/18 at 15:00 Metoprolol Tartrate (Lopressor) 5 mg Q4H PRN IV HR>110 Hold SBP<100 Last administered on 10/20/18 11:40; Admin Dose 5 MG; Start 10/12/18 at 15:00 Levetiracetam (Keppra Liquid) 1,000 mg BID GTB Last administered on 10/28/18 09:53; Admin Dose 1,000 MG; Start 10/14/18 at 21:00 Lorazepam (Ativan) 1 mg Q4H PRN IV SEIZURES Last administered on 10/27/18 13:25; Admin Dose 1 MG; Start 10/16/18 at 12:00 Morphine Sulfate (morphine) 1 mg Q4H PRN IV .SEVERE PAIN 7-10 Last administered on 10/28/18 05:35; Admin Dose 1 MG; Start 10/16/18 at 15:45 Epoetin Nile (Epogen (Non Esrd/Non Oncology)) 6,000 units MoWeFr@17 SC Last administered on 10/25/18 18:23; Admin Dose 6,000 UNITS; Start 10/18/18 at 17:00 Quetiapine Fumarate (Seroquel) 12.5 mg QID PRN NGT anxiety/agitation Last administered on 10/23/18 12:08; Admin Dose 12.5 MG; Start 10/18/18 at 14:30 Quetiapine Fumarate (Seroquel) 12.5 mg QHS NGT Last administered on 10/27/18 21:55; Admin Dose 12.5 MG; Start 10/19/18 at 21:00 Hydralazine HCl (Apresoline) 25 mg Q6 NGT Last administered on 10/28/18 05:31; Admin Dose 25 MG; Start 10/20/18 at 12:00 Hydralazine HCl (Apresoline) 5 mg Q8H PRN IV sbp >160; Start 10/20/18 at 12:00 Miscellaneous Information (Pending Santyl Order For Wound Care) This patient martin... PRN PRN XX WOUND CARE; Start 10/21/18 at 07:30 Valproate Sodium (Depakene Liquid Cup) 1,000 mg Q8 GTB Last administered on at 05:28; Admin Dose 1,000 MG; Start 10/22/18 at 22:00 Enoxaparin Sodium (Lovenox) 70 mg BID SC Last administered on 10/28/18at 10:05; Admin Dose 70 MG; Start 10/23/18 at 21:00; Status Hold ANGELA CARY Oct 28, 2018 12:29
--- NOTE | 2018-10-28 12:33 | PN ---
Date/Time of Note Date/Time of Note DATE: 10/28/18 TIME: 12:26 Assessment/Plan VTE Prophylaxis Risk score (from Ns)>0 risk: 6 SCD applied (from Ns): Yes Pharmacological prophylaxis: NA/contraindicated Pharm contraindication: bleeding Lines/Catheters IV C[facility] Saline Lock Urinary Cath still in place: Yes Reason Cath still needed: urinary retention Assessment/Plan Hospital Course S: Patient tolerating tube feeds, but apparently having some oral bleeding possibly secondary to tongue biting overnight. No seizure activity overnight, tolerating PEG feeds. O: VS -SEE BELOW PE: GENERAL: lying in bed, presently sleeping, on 2 L nasal cannula with good saturations HEENT: Moist mucous membranes, dried blood noted in the pharynx area NECK: Supple, no thyromegaly. LUNGS: Mechanical breath sounds equal bilaterally. CARDIOVASCULAR: S1, S2 heard. No rubs or gallops. ABDOMEN: Soft, nontender, nondistended. Normal bowel sounds. No rebound or guarding. MUSCULOSKELETAL: No lower extremity edema bilaterally. Assessment/Plan: 67-year-old female coming in with signs of septic shock, likely secondary to urinary tract infection and pneumonia, elevated troponins, acute renal insufficiency, initially intubated requiring pressor support, now extubated and out of ICU. Also presented with atrial fibrillation with rapid ventricular response, now in normal sinus rhythm. #Septic shock and respiratory failure - resolved-ID Dr. Sanford following- Likely due to UTI- Urine cultures and Blood cultures growing E Coli x2-has been off vasopressor support-Patient extubated 10/18 -Continue current broad-spectrum antibiotics, Tylenol p.r.n. pain and fevers. -Follow up pulmonary recommendations -Given possible oropharyngeal bleeding will check chest x-ray today x1 #Seizure disorder- Morning of 10/08 had whole body twitching concerning for seizures; got Ativan then Versed. Again on 10/11 had a similar episode broken with Ativan-10/08/18 EEG appears to have localized lesion but CT head is negative. Repeat EEG from 10/15/18 results noted, neuro following. - Continue keppra, valproic acid, follow-up neurology recommendations - Holding versed, but continue Ativan as needed - Low-dose Seroquel as needed for agitation # NSTEMI - Unclear if this is true non-ST elevation myocardial infarction versus demand ischemia- s/p heparin gtt earlier this admission. Has been on Lovenox twice daily since the -Given possible pole oropharyngeal bleeding now, per discussion with cardiology team will hold aspirin and Lovenox now. - Continue Lipitor. -Follow-up cardiology recommendations -continue medical management #A fib with RVR, paroxysmal-stable, presently in normal sinus rhythm Dr. Mello-cardiology team following -Monitor heart rate for now, follow up cardiology recommendations -Continue p.o. beta-panda and p.o. amiodarone for now # Renal insufficiency -resolved -Monitor # Hypothyroidism - Continue current thyroid medicines. - Low TSH, normal fT4 consistent with sick euthyroid syndrome. # History of dementia. - Continue Aricept for now. -Prior hospitalist apparently spoke to Valentina GILLILAND at SNF. Prior to admission, patient was able to walk assisted, feed self, say simple words like "bathroom" and "pain". Not oriented to name, location, time. - PEG placement 10/25. # History of high cholesterol. - Cont statin #Anemia: Probably anemia of chronic disease # Gastrointestinal prophylaxis- H2 panda. # Deep venous thrombosis prophylaxis - due to anemia- SCDs Plan At baseline she was able to walk and feed herself just a week prior to admission. Currently patient is in bed, following commands, but has no movement at all of the extremities. She has G tube and is DNR, code status will be continued at SNF. Once bleeding subsides, patient will be medically clear to discharge to SNF, however it may be trevino to monitor a few more days in the hospital for recovery of neuro function; also she does have trouble managing secretions and intermittently goes hypoxic -we will check chest x-ray today. Result Diagram: 10/28/18 0531 10/28/1831 Results 24hrs Laboratory Tests Test 10/28/18 05:31 White Blood Count 4.8 Red Blood Count 3.08 L Hemoglobin 9.6 L Hematocrit 30.8 L Mean Corpuscular Volume 100.0 Mean Corpuscular Hemoglobin 31.2 Mean Corpuscular Hemoglobin Concent 31.2 L Red Cell Distribution Width 16.1 H Platelet Count 201 # Mean Platelet Volume 11.4 H Immature Granulocytes % 0.600 H Neutrophils % 42.1 Lymphocytes % 44.1 Monocytes % 12.2 H Eosinophils % 0.8 Basophils % 0.2 Nucleated Red Blood Cells % 0.0 Immature Granulocytes # 0.030 Neutrophils # 2.0 Lymphocytes # 2.1 Monocytes # 0.6 Eosinophils # 0.0 Basophils # 0.0 Nucleated Red Blood Cells # 0.0 Sodium Level 148 H Potassium Level 3.9 Chloride Level 113 H Carbon Dioxide Level 27 Anion Gap 8 Blood Urea Nitrogen 37 H Creatinine 0.92 Est Glomerular Filtrat Rate mL/min > 60 Glucose Level 96 Calcium Level 9.7 Valproic Acid (Depakene) Level 86 Exam/Review of Systems Exam Vitals Vital Signs Date Temp Pulse Resp B/P (MAP) Pulse Ox O2 O2 Flow FiO2 Time Delivery Rate 10/28/18 99.2 73 18 120/68 95 11:44 (85) 10/28/18 Nasal 3.0 08:00 Cannula Intake and Output 10/27/18 10/27/18 10/28/18 1414:59 22:59 06:59 IntakeIntake Total 860 ml 860 ml OutputOutput Total 1200 ml 700 ml BalanceBalance -340 ml 160 ml Results Results 24hrs Laboratory Tests Test 10/28/18 05:31 White Blood Count 4.8 Red Blood Count 3.08 L Hemoglobin 9.6 L Hematocrit 30.8 L Mean Corpuscular Volume 100.0 Mean Corpuscular Hemoglobin 31.2 Mean Corpuscular Hemoglobin Concent 31.2 L Red Cell Distribution Width 16.1 H Platelet Count 201 # Mean Platelet Volume 11.4 H Immature Granulocytes % 0.600 H Neutrophils % 42.1 Lymphocytes % 44.1 Monocytes % 12.2 H Eosinophils % 0.8 Basophils % 0.2 Nucleated Red Blood Cells % 0.0 Immature Granulocytes # 0.030 Neutrophils # 2.0 Lymphocytes # 2.1 Monocytes # 0.6 Eosinophils # 0.0 Basophils # 0.0 Nucleated Red Blood Cells # 0.0 Sodium Level 148 H Potassium Level 3.9 Chloride Level 113 H Carbon Dioxide Level 27 Anion Gap 8 Blood Urea Nitrogen 37 H Creatinine 0.92 Est Glomerular Filtrat Rate mL/min > 60 Glucose Level 96 Calcium Level 9.7 Valproic Acid (Depakene) Level 86 Medications Medication Current Medications IV Flush (NS 3 ml) 3 ml PER PROTOCOL IV ; Start 10/06/18 at 09:30 Ondansetron HCl (Zofran Inj) 4 mg Q6H PRN IV NAUSEA/VOMITING; Start 10/06/18 at 09:30 Acetaminophen (Tylenol Tab) 650 mg Q6H PRN PO .PAIN 1-3 OR TEMP Last administered on 10/26/18 13:11; Admin Dose 650 MG; Start 10/06/18 at 09:30 Acetaminophen/ Hydrocodone Bitart ([place] (5/325)) 1 tab Q6H PRN PO .MOD PAIN 4- 6; Start 10/06/18 at 09:30 Docusate Sodium (Colace) 100 mg Q12H PRN PO .CONSTIPATION; Start 10/06/18 at 09:30 Magnesium Hydroxide (Milk Of Mag) 30 ml DAILY PRN PO .CONSTIPATION; Start 10/06/18 at 09:30 Albuterol/ Ipratropium (Duoneb) 3 ml Q4H RESP THERAPY PRN HHN SHORTNESS OF BREATH Last administered on 10/27/18at 12:37; Admin Dose 3 ML; Start 10/06/18 at 09:30 Nitroglycerin (Nitroglycerin (Sl Tab) 0.4 Mg) 1 tab Q5M PRN SL ANGINA; Start 10/06/18 at 09:30 Bisacodyl (Dulcolax) 10 mg DAILY PRN PO CONSTIPATION; Start 10/06/18 at 09:30 Donepezil HCl (Aricept) 5 mg QHS PO Last administered on 10/27/18at 21:53; Admin Dose 5 MG; Start 10/06/18 at 21:00 Lactulose (Enulose) 20 gm TID PRN PO CONSTIPATION; Start 10/06/18 at 09:30 Levothyroxine Sodium (Synthroid) 50 mcg BEFORE BREAKFAST PO Last administered on 10/28/18at 06:58; Admin Dose 50 MCG; Start 10/07/18 at 07:00 Mineral Oil (Fleet Mineral Oil Enema) 133 ml DAILY PRN [place] CONSTIPATION; Start 10/06/18 at 09:30 Multivitamins Therapeutic (Theragran) 1 tab DAILY PO Last administered on 10/28/18 09:53; Admin Dose 1 TAB; Start 10/07/18 at 09:00 Aspirin (Aspirin) 81 mg DAILY NGT Last administered on 10/11/18 09:35; Admin Dose 81 MG; Start 10/06/18 at 12:30; Status Hold Atorvastatin Calcium (Lipitor) 40 mg DAILY@21 NGT Last administered on 10/27/18 21:52; Admin Dose 40 MG; Start 10/06/18 at 21:00 Miscellaneous Information (Flu Vaccine Previously Dispensed) FLU VACCINE PREVIOU... NOTE PRN XX NOTE; Start 10/06/18 at 18:00 Amiodarone HCl (Cordarone) 200 mg BID PO Last administered on 10/28/18 09:57; Admin Dose 200 MG; Start 10/09/18 at 21:00 Famotidine (Pepcid) 20 mg DAILY NGT Last administered on 10/28/18 09:53; Admin Dose 20 MG; Start 10/10/18 at 09:00 Polyethylene Glycol (Miralax) 17 gm BID PRN PO constipation; Start 10/10/18 at 22:00 Metoprolol Tartrate (Lopressor) 25 mg BID PO Last administered on 10/28/18 09:57; Admin Dose 25 MG; Start 10/12/18 at 15:00 Metoprolol Tartrate (Lopressor) 5 mg Q4H PRN IV HR>110 Hold SBP<100 Last administered on 10/20/18 11:40; Admin Dose 5 MG; Start 10/12/18 at 15:00 Levetiracetam (Keppra Liquid) 1,000 mg BID GTB Last administered on 10/28/18 0 9:53; Admin Dose 1,000 MG; Start 10/14/18 at 21:00 Lorazepam (Ativan) 1 mg Q4H PRN IV SEIZURES Last administered on 10/27/18 13:25; Admin Dose 1 MG; Start 10/16/18 at 12:00 Morphine Sulfate (morphine) 1 mg Q4H PRN IV .SEVERE PAIN 7-10 Last administered on 10/28/18 05:35; Admin Dose 1 MG; Start 10/16/18 at 15:45 Epoetin Nile (Epogen (Non Esrd/Non Oncology)) 6,000 units MoWeFr@17 SC Last administered on 10/25/18 18:23; Admin Dose 6,000 UNITS; Start 10/18/18 at 17:00 Quetiapine Fumarate (Seroquel) 12.5 mg QID PRN NGT anxiety/agitation Last administered on 10/23/18 12:08; Admin Dose 12.5 MG; Start 10/18/18 at 14:30 Quetiapine Fumarate (Seroquel) 12.5 mg QHS NGT Last administered on 10/27/18at 21:55; Admin Dose 12.5 MG; Start 10/19/18 at 21:00 Hydralazine HCl (Apresoline) 25 mg Q6 NGT Last administered on 10/28/18at 05:31; Admin Dose 25 MG; Start 10/20/18 at 12:00 Hydralazine HCl (Apresoline) 5 mg Q8H PRN IV sbp >160; Start 10/20/18 at 12:00 Miscellaneous Information (Pending Santyl Order For Wound Care) This patient martin... PRN PRN XX WOUND CARE; Start 10/21/18 at 07:30 Valproate Sodium (Depakene Liquid Cup) 1,000 mg Q8 GTB Last administered on 10/28/18 05:28; Admin Dose 1,000 MG; Start 10/22/18 at 22:00 Enoxaparin Sodium (Lovenox) 70 mg BID SC Last administered on 10/28/18at 10:05; Admin Dose 70 MG; Start 10/23/18 at 21:00 MANUEL ALEMAN Oct 28, 2018 12:33
--- NOTE | 2018-10-28 15:06 | CONS ---
Assessment/Plan Assessment/Plan Hospital Course (Demo Recall) No fevers overnight looks comfortable, tolerates tube feeding Allergy: Penicillin, clindamycin Physical examination: Well-developed chronically ill-appearing elderly woman. The patient is in no distress. Head atraumatic normocephalic. Neck is supple. Chest rise symmetrical, breath sounds with crackles. Heart: S1-S2, tachycardic, irregular. Abdomen soft bowel sounds hypoactive. Extremities with dependent edema Assessment: 1. S/p sepsis 2. S/p E coli bacteremia secondary to urinary tract infection 3. Acute hypoxemic respiratory failure===> extubated 4. S/p Healthcare associated pneumonia, possibly aspiration 4. S/p UMBERTO 5. Non-ST elevation [place] 6. Atrial fibrillation status post RVR 7. Seizures 8. Encephalopathy Plan: Patient remains unchanged, stable off antibiotics, status post PEG Consultation Date/Type/Reason Admit Date/Time Oct 06, 2018 at 09:29 Initial Consult Date 10/06/18 Type of Consult id Requesting Provider: MANUEL ALEMAN Date/Time of Note DATE: 10/28/18 TIME: 15:06 Exam/Review of Systems Exam Vitals Vital Signs Date Temp Pulse Resp B/P (MAP) Pulse Ox O2 O2 Flow FiO2 Time Delivery Rate 10/28/18 63 12:02 10/28/18 99.2 18 120/68 95 11:44 (85) 10/28/18 Nasal 3.0 08:00 Cannula Intake and Output 10/27/18 10/27/18 10/28/18 1515:00 23:00 07:00 IntakeIntake Total 860 ml 860 ml OutputOutput Total 1200 ml 700 ml BalanceBalance -340 ml 160 ml Results Result Diagram: 10/28/18 0531 10/28/18 0531 Results 24hrs Laboratory Tests Test 10/28/18 05:31 White Blood Count 4.8 Red Blood Count 3.08 L Hemoglobin 9.6 L Hematocrit 30.8 L Mean Corpuscular Volume 100.0 Mean Corpuscular Hemoglobin 31.2 Mean Corpuscular Hemoglobin Concent 31.2 L Red Cell Distribution Width 16.1 H Platelet Count 201 # Mean Platelet Volume 11.4 H Immature Granulocytes % 0.600 H Neutrophils % 42.1 Lymphocytes % 44.1 Monocytes % 12.2 H Eosinophils % 0.8 Basophils % 0.2 Nucleated Red Blood Cells % 0.0 Immature Granulocytes # 0.030 Neutrophils # 2.0 Lymphocytes # 2.1 Monocytes # 0.6 Eosinophils # 0.0 Basophils # 0.0 Nucleated Red Blood Cells # 0.0 Sodium Level 148 H Potassium Level 3.9 Chloride Level 113 H Carbon Dioxide Level 27 Anion Gap 8 Blood Urea Nitrogen 37 H Creatinine 0.92 Est Glomerular Filtrat Rate mL/min > 60 Glucose Level 96 Calcium Level 9.7 Valproic Acid (Depakene) Level 86 Medications Medication Current Medications IV Flush (NS 3 ml) 3 ml PER PROTOCOL IV ; Start 10/06/18 at 09:30 Ondansetron HCl (Zofran Inj) 4 mg Q6H PRN IV NAUSEA/VOMITING; Start 10/06/18 at 09:30 Acetaminophen (Tylenol Tab) 650 mg Q6H PRN PO .PAIN 1-3 OR TEMP Last administered on 10/26/18at 13:11; Admin Dose 650 MG; Start 10/06/18 at 09:30 Acetaminophen/ Hydrocodone Bitart ([place] (5/325)) 1 tab Q6H PRN PO .MOD PAIN 4- 6; Start 10/06/18 at 09:30 Docusate Sodium (Colace) 100 mg Q12H PRN PO .CONSTIPATION; Start 10/06/18 at 09:30 Magnesium Hydroxide (Milk Of Mag) 30 ml DAILY PRN PO .CONSTIPATION; Start at 09:30 Albuterol/ Ipratropium (Duoneb) 3 ml Q4H RESP THERAPY PRN HHN SHORTNESS OF BREATH Last administered on 10/27/18at 12:37; Admin Dose 3 ML; Start 10/06/18 at 09:30 Nitroglycerin (Nitroglycerin (Sl Tab) 0.4 Mg) 1 tab Q5M PRN SL ANGINA; Start 10/06/18 at 09:30 Bisacodyl (Dulcolax) 10 mg DAILY PRN PO CONSTIPATION; Start 10/06/18 at 09:30 Donepezil HCl (Aricept) 5 mg QHS PO Last administered on 10/27/18at 21:53; Admin Dose 5 MG; Start 10/06/18 at 21:00 Lactulose (Enulose) 20 gm TID PRN PO CONSTIPATION; Start 10/06/18 at 09:30 Levothyroxine Sodium (Synthroid) 50 mcg BEFORE BREAKFAST PO Last administered on 10/28/18 06:58; Admin Dose 50 MCG; Start 10/07/18 at 07:00 Mineral Oil (Fleet Mineral Oil Enema) 133 ml DAILY PRN [place] CONSTIPATION; Start 10/06/18 at 09:30 Multivitamins Therapeutic (Theragran) 1 tab DAILY PO Last administered on 10/28/18 09:53; Admin Dose 1 TAB; Start 10/07/18 at 09:00 Aspirin (Aspirin) 81 mg DAILY NGT Last administered on 10/11/18 09:35; Admin Dose 81 MG; Start 10/06/18 at 12:30; Status Hold Atorvastatin Calcium (Lipitor) 40 mg DAILY@21 NGT Last administered on 10/27/18 21:52; Admin Dose 40 MG; Start 10/06/18 at 21:00 Miscellaneous Information (Flu Vaccine Previously Dispensed) FLU VACCINE PREVIOU... NOTE PRN XX NOTE; Start 10/06/18 at 18:00 Amiodarone HCl (Cordarone) 200 mg BID PO Last administered on 10/28/18 09:57; Admin Dose 200 MG; Start 10/09/18 at 21:00 Famotidine (Pepcid) 20 mg DAILY NGT Last administered on 10/28/18 09:53; Admin Dose 20 MG; Start 10/10/18 at 09:00 Polyethylene Glycol (Miralax) 17 gm BID PRN PO constipation; Start 10/10/18 at 22:00 Metoprolol Tartrate (Lopressor) 25 mg BID PO Last administered on 10/28/18 09:57; Admin Dose 25 MG; Start 10/12/18 at 15:00 Metoprolol Tartrate (Lopressor) 5 mg Q4H PRN IV HR>110 Hold SBP<100 Last administered on 10/20/18 11:40; Admin Dose 5 MG; Start 10/12/18 at 15:00 Levetiracetam (Keppra Liquid) 1,000 mg BID GTB Last administered on 10/28/18 09:53; Admin Dose 1,000 MG; Start 10/14/18 at 21:00 Lorazepam (Ativan) 1 mg Q4H PRN IV SEIZURES Last administered on 10/27/18 13:2 5; Admin Dose 1 MG; Start 10/16/18 at 12:00 Morphine Sulfate (morphine) 1 mg Q4H PRN IV .SEVERE PAIN 7-10 Last administered on 10/28/18 05:35; Admin Dose 1 MG; Start 10/16/18 at 15:45 Epoetin Nile (Epogen (Non Esrd/Non Oncology)) 6,000 units MoWeFr@17 SC Last administered on 10/25/18 18:23; Admin Dose 6,000 UNITS; Start 10/18/18 at 17:00 Quetiapine Fumarate (Seroquel) 12.5 mg QID PRN NGT anxiety/agitation Last administered on 10/23/18 12:08; Admin Dose 12.5 MG; Start 10/18/18 at 14:30 Quetiapine Fumarate (Seroquel) 12.5 mg QHS NGT Last administered on 10/27/18 21:55; Admin Dose 12.5 MG; Start 10/19/18 at 21:00 Hydralazine HCl (Apresoline) 25 mg Q6 NGT Last administered on 10/28/18 13:10; Admin Dose 25 MG; Start 10/20/18 at 12:00 Hydralazine HCl (Apresoline) 5 mg Q8H PRN IV sbp >160; Start 10/20/18 at 12:00 Miscellaneous Information (Pending [facility] Order For Wound Care) This patient martin... PRN PRN XX WOUND CARE; Start 10/21/18 at 07:30 Valproate Sodium (Depakene Liquid Cup) 1,000 mg Q8 GTB Last administered on 10/28/18 13:07; Admin Dose 1,000 MG; Start 10/22/18 at 22:00 Enoxaparin Sodium (Lovenox) 70 mg BID SC Last administered on 10/28/18 10:05; Admin Dose 70 MG; Start 10/23/18 at 21:00; Status Hold MARKOS BRADY NP Oct 28, 2018 15:06
[2018-10-28] MEDS: EPOETIN 3000 UNITS/ML (NON ESRD/NON ONCOLOGY) SC SCH (17:40)
[2018-10-28] MEDS: HYDROCODONE/APAP (5/325) TAB PO PRN (20:49)
[2018-10-28] MEDS: QUETIAPINE 25 MG TAB NGT SCH (20:50)
[2018-10-28] MEDS: ATORVASTATIN 40 MG TAB NGT SCH (20:50)
[2018-10-28] MEDS: ALBUTEROL/IPRATROPIUM (NEB) 3 ML AMP HHN PRN (21:37)
[2018-10-28] MEDS: DONEPEZIL 5 MG TAB PO SCH (22:49)
[2018-10-29] VITALS (14 sets, daily range): BP systolic 86–145; BP diastolic 50–80; PULSE 71–101; RESP 16–18
[2018-10-29] MEDS: VALPROIC ACID LIQUID CUP 250 MG/5 ML CUP GTB SCH ×3 (06:26→21:46)
[2018-10-29] MEDS: LEVOTHYROXINE 50 MCG TAB PO SCH (06:26)
[2018-10-29] MEDS: HYDROCODONE/APAP (5/325) TAB PO PRN ×2 (06:28→12:25)
[2018-10-29] MEDS: LEVETIRACETAM (100 MG/ML) 5ML CUP GTB SCH ×2 (08:57→21:46)
[2018-10-29] MEDS: MULTIVITAMINS THERAPEUTIC TAB PO SCH (08:58)
[2018-10-29] MEDS: FAMOTIDINE 20 MG TAB NGT SCH (08:58)
[2018-10-29] MEDS: AMIODARONE 200 MG TAB PO SCH ×2 (08:58→21:47)
[2018-10-29] MEDS: METOPROLOL 25 MG TAB PO SCH ×2 (08:58→21:46)
[2018-10-29] MEDS: BALSAM PERU/CASTOR OIL 60 GM TUBE TOP SCH (08:59)
[2018-10-29] MEDS: ALBUTEROL/IPRATROPIUM (NEB) 3 ML AMP HHN PRN ×2 (10:10→16:40)
--- NOTE | 2018-10-29 11:12 | CONS ---
Assessment/Plan Assessment/Plan Assessment/Plan (Daily) Assessment and recommendations; 1. Patient status post respiratory failure with significant clinical and radiological improvement. 2. Acute renal failure with normalization of renal function. 3. Paroxysmal atrial fibrillation, currently in sinus rhythm. 4. History of advanced dementia. 5. Hypothyroidism. 6. Parkinson disease. 7. Stable seizure disorder. 8. Anemia and thrombocytopenia. Continue current supportive care. Consider discharge. Consultation Date/Type/Reason Admit Date/Time Oct 06, 2018 at 09:29 Initial Consult Date 10/06/18 Type of Consult Pulmonary/critical care Patient's condition remains critical. Still requiring invasive mechanical ventilation. Patient however has improved hemodynamically and is off pressor support. General exam; elderly female, orally intubated, exhibiting tremor-like activity. Unresponsive. Requesting Provider: MANUEL ALEMAN Date/Time of Note DATE: 10/29/18 TIME: 11:09 24 HR Interval Summary Free Text/Dictation Patient's condition is stable overall. Remains essentially noncommunicative. Has remained hemodynamically stable. General exam; elderly female, awake but noncommunicative. Moaning and groaning. Currently in no distress. Exam/Review of Systems Exam Vitals Vital Signs Date Temp Pulse Resp B/P (MAP) Pulse Ox O2 O2 Flow FiO2 Time Delivery Rate 10/29/18 2.0 10:13 10/29/18 89 20 96 Nasal 10:10 Cannula 10/29/18 99.2 145/67 07:17 (93) Intake and Output 10/28/18 10/28/18 10/29/18 1515:00 23:00 07:00 IntakeIntake Total 860 ml 960 ml OutputOutput Total 1000 ml 500 ml BalanceBalance -140 ml 460 ml Exam H EENT exam; supple neck, no JVD. No lymphadenopathy. Midline trachea. No thyromegaly. Patient is edentulous. Chest exam; clear to auscultation. S1-S2 audible, no murmurs. Regular rhythm. Abdomen exam; soft, G-tube in place. No organomegaly. Bowel sounds audible. Extremity exam; no peripheral edema clubbing. [employer] exam; patient remains awake but noncommunicative. Results Result Diagram: 10/29/18 0641 10/29/18 0641 Results 24hrs Laboratory Tests Test 10/29/18 06:41 White Blood Count 4.5 L Red Blood Count 3.06 L Hemoglobin 9.5 L Hematocrit 30.4 L Mean Corpuscular Volume 99.3 Mean Corpuscular Hemoglobin 31.0 Mean Corpuscular Hemoglobin Concent 31.3 L Red Cell Distribution Width 16.2 H Platelet Count 184 Mean Platelet Volume 11.0 H Immature Granulocytes % 0.400 Neutrophils % 48.2 Lymphocytes % 38.2 Monocytes % 11.9 H Eosinophils % 0.9 Basophils % 0.4 Nucleated Red Blood Cells % 0.0 Immature Granulocytes # 0.020 Neutrophils # 2.1 Lymphocytes # 1.7 Monocytes # 0.5 Eosinophils # 0.0 Basophils # 0.0 Nucleated Red Blood Cells # 0.0 Sodium Level 147 H Potassium Level 4.0 Chloride Level 113 H Carbon Dioxide Level 26 Anion Gap 8 Blood Urea Nitrogen 39 H Creatinine 0.92 Est Glomerular Filtrat Rate mL/min > 60 Glucose Level 114 Calcium Level 9.5 Phosphorus Level 3.9 Magnesium Level 1.7 Valproic Acid (Depakene) Level 106 H Medications Medication Current Medications IV Flush (NS 3 ml) 3 ml PER PROTOCOL IV ; Start 10/06/18 at 09:30 Ondansetron HCl (Zofran Inj) 4 mg Q6H PRN IV NAUSEA/VOMITING; Start 10/06/18 at 09:30 Acetaminophen (Tylenol Tab) 650 mg Q6H PRN PO .PAIN 1-3 OR TEMP Last administered on 10/26/18at 13:11; Admin Dose 650 MG; Start 10/06/18 at 09:30 Acetaminophen/ Hydrocodone Bitart ([place] (5/325)) 1 tab Q6H PRN PO .MOD PAIN 4- 6 Last administered on 10/29/18at 06:28; Admin Dose 1 TAB; Start 10/06/18 at 09:30 Docusate Sodium (Colace) 100 mg Q12H PRN PO .CONSTIPATION; Start 10/06/18 at 09:30 Magnesium Hydroxide (Milk Of Mag) 30 ml DAILY PRN PO .CONSTIPATION; Start 10/06/18 at 09:30 Albuterol/ Ipratropium (Duoneb) 3 ml Q4H RESP THERAPY PRN HHN SHORTNESS OF BREATH Last administered on 10/29/18at 10:10; Admin Dose 3 ML; Start 10/06/18 at 09:30 Nitroglycerin (Nitroglycerin (Sl Tab) 0.4 Mg) 1 tab Q5M PRN SL ANGINA; Start 10/06/18 at 09:30 Bisacodyl (Dulcolax) 10 mg DAILY PRN PO CONSTIPATION; Start 10/06/18 at 09:30 Donepezil HCl (Aricept) 5 mg QHS PO Last administered on 10/28/18 22:49; Admin Dose 5 MG; Start 10/06/18 at 21:00 Lactulose (Enulose) 20 gm TID PRN PO CONSTIPATION; Start 10/06/18 at 09:30 Levothyroxine Sodium (Synthroid) 50 mcg BEFORE BREAKFAST PO Last administered on 10/29/18 06:26; Admin Dose 50 MCG; Start 10/07/18 at 07:00 Mineral Oil (Fleet Mineral Oil Enema) 133 ml DAILY PRN MA CONSTIPATION; Start 10/06/18 at 09:30 Multivitamins Therapeutic (Theragran) 1 tab DAILY PO Last administered on 10/29/18 08:58; Admin Dose 1 TAB; Start 10/07/18 at 09:00 Aspirin (Aspirin) 81 mg DAILY NGT Last administered on 10/11/18 09:35; Admin Dose 81 MG; Start 10/06/18 at 12:30; Status Hold Atorvastatin Calcium (Lipitor) 40 mg DAILY@21 NGT Last administered on 10/28/18 20:50; Admin Dose 40 MG; Start 10/06/18 at 21:00 Miscellaneous Information (Flu Vaccine Previously Dispensed) FLU VACCINE PREVIOU... NOTE PRN XX NOTE; Start 10/06/18 at 18:00 Amiodarone HCl (Cordarone) 200 mg BID PO Last administered on 10/29/18 08:58; Admin Dose 200 MG; Start 10/09/18 at 21:00 Famotidine (Pepcid) 20 mg DAILY NGT Last administered on 10/29/18 08:58; Admin Dose 20 MG; Start 10/10/18 at 09:00 Polyethylene Glycol (Miralax) 17 gm BID PRN PO constipation; Start 10/10/18 at 22:00 Metoprolol Tartrate (Lopressor) 25 mg BID PO Last administered on 10/29/18 08:58; Admin Dose 25 MG; Start 10/12/18 at 15:00 Metoprolol Tartrate (Lopressor) 5 mg Q4H PRN IV HR>110 Hold SBP<100 Last administered on 10/20/18 11:40; Admin Dose 5 MG; Start 10/12/18 at 15:00 Levetiracetam (Keppra Liquid) 1,000 mg BID GTB Last administered on 10/29/18 08:57; Admin Dose 1,000 MG; Start 10/14/18 at 21:00 Lorazepam (Ativan) 1 mg Q4H PRN IV SEIZURES Last administered on 10/27/18 13:25; Admin Dose 1 MG; Start 10/16/18 at 12:00 Morphine Sulfate (morphine) 1 mg Q4H PRN IV .SEVERE PAIN 7-10 Last administered on 10/28/18 17:51; Admin Dose 1 MG; Start 10/16/18 at 15:45 Epoetin Nile (Epogen (Non Esrd/Non Oncology)) 6,000 units MoWeFr@17 SC Last administered on 10/28/18 17:40; Admin Dose 6,000 UNITS; Start 10/18/18 at 17:00 Quetiapine Fumarate (Seroquel) 12.5 mg QID PRN NGT anxiety/agitation Last administered on 10/23/18 12:08; Admin Dose 12.5 MG; Start 10/18/18 at 14:30 Quetiapine Fumarate (Seroquel) 12.5 mg QHS NGT Last administered on 10/28/18 20:50; Admin Dose 12.5 MG; Start 10/19/18 at 21:00 Hydralazine HCl (Apresoline) 25 mg Q6 NGT Last administered on 10/28/18 17:42; Admin Dose 25 MG; Start 10/20/18 at 12:00 Hydralazine HCl (Apresoline) 5 mg Q8H PRN IV sbp >160; Start 10/20/18 at 12:00 Miscellaneous Information (Pending Santyl Order For Wound Care) This patient martin... PRN PRN XX WOUND CARE; Start 10/21/18 at 07:30 Valproate Sodium (Depakene Liquid Cup) 1,000 mg Q8 GTB Last administered on 3/26/19at 06:26; Admin Dose 1,000 MG; Start 10/22/18 at 22:00 Enoxaparin Sodium (Lovenox) 70 mg BID SC Last administered on 10/28/18at 10:05; Admin Dose 70 MG; Start 10/23/18 at 21:00; Status Hold YANETH CASTELLANOS Oct 29, 2018 11:12
--- NOTE | 2018-10-29 11:41 | CONS ---
Assessment/Plan Assessment/Plan Hospital Course 67 F c/ dementia, epilepsy, and other comorbidities, who presents for management of cardiopulmonary Sx. She was noted to have a generalized convulsion on 10/08, for which neurology is consulted... Certainly her acute illness is lowering her seizure threshold.. CTH is without acute intracranial pathology EEG is notable for severe left hemispheric on diffuse slowing 10/12: breakthrough seizure --> ativan rescue Repeat EEG, 10/14, is without evidence of nonconvulsive status. Depakote level on 10/25 is 92 P: Cont depakote 1g tid for now. Repeat level in am. Cont Keppra 1000mg bid for now Ativan iv prn prolonged seizure or cluster OK to cont asa daily for primary stroke prevention given her afib Low dose seroquel prn agitation Continued medical management per primary Will follow Consultation Date/Type/Reason Admit Date/Time Oct 06, 2018 at 09:29 Type of Consult Neurology Reason for Consultation seizure Requesting Provider: MANUEL ALEMAN Date/Time of Note DATE: 10/29/18 TIME: 11:41 24 HR Interval Summary Free Text/Dictation Continues acute care. Exam Vital Signs Vitals Vital Signs Date Temp Pulse Resp B/P (MAP) Pulse Ox O2 O2 Flow FiO2 Time Delivery Rate 10/29/18 2.0 10:13 10/29/18 89 20 96 Nasal 10:10 Cannula 10/29/18 99.2 145/67 07:17 (93) Intake and Output 10/28/18 10/28/18 10/29/18 1515:00 23:00 07:00 IntakeIntake Total 860 ml 960 ml OutputOutput Total 1000 ml 500 ml BalanceBalance -140 ml 460 ml Exam PE: Gen Appearance: Appears very anxious HEENT: Normocephalic Cardiovascular: Regular rate Abdomen: Soft Extremities: Dry NE: The patient was awake and alert, though disoriented. Incomprehensibly verbal. Able to track. Unable to follow commands. Cranial nerve examination was limited by mental status. Pupils were equal and reactive to light. There was no afferent pupillary defect. Funduscopic examination was limited. Face was grossly symmetric, w/ present corneal and cough reflexes. Tone was slightly increased in her LUE. Muscle bulk was normal. Twitching of her L shoulder/arm was noted. The patient withdrew all extremities. Coordination and gait testing was limited by mental status. Arm and leg reflexes were symmetric. Beck's sign was absent. Plantar responses were flexor. CHEYENNE JEAN NP Oct 29, 2018 11:41 FROYLAN WOOD Oct 29, 2018 14:38
--- NOTE | 2018-10-29 11:46 | PDOCDIS ---
Discharge Instructions CONDITION [id number] Patient Condition: [id number] Stable MANUEL ALEMAN Oct 29, 2018 11:46
--- NOTE | 2018-10-29 11:57 | DS ---
Date/Time of Note Date/Time of Note DATE: 10/29/18 TIME: 11:47 Discharge Summary Admission/Discharge Info Admit Date/Time Oct 06, 2018 at 09:29 Discharge Date/Time Discharge Diagnosis #Septic shock and respiratory failure - resolved-ID Dr. Sanford following- Likely due to UTI- Urine cultures and Blood cultures growing E Coli x2-has been off vasopressor support-Patient extubated 10/18 #Seizure disorder- Morning of 10/08 had whole body twitching concerning for seizures; got Ativan then Versed. Again on 10/11 had a similar episode broken with Ativan-10/08/18 EEG appears to have localized lesion but CT head is negative. Repeat EEG from 10/15/18 results noted, presently on Keppra and valproic acid # NSTEMI - Unclear if this is true non-ST elevation myocardial infarction versus demand ischemia- s/p heparin gtt earlier this admission, improved -continue medical management #A fib with RVR, paroxysmal-stable, presently in normal sinus rhythm # Renal insufficiency -resolved # Hypothyroidism # History of dementia. # PEG placement October 25, 2018 # History of high cholesterol. #Anemia: Probably anemia of chronic disease Patient Condition: Stable Procedures 2D echo: Conclusions: Normal left ventricular systolic function. Normal left ventricular cavity size. Normal left ventricular wall thickness. Sigmoid septum. Ejection fraction is visually estimated at 60 %. Abnormal Diastolic Function, patient cannot Valsalva on ventilator. E/E'= 15. There is moderate enlargement of left atrium. Normal appearance of the mitral valve. There is mild calcification noted on the chordal structures. Moderate mitral valve regurgitation. Normal appearance of the tricuspid valve. Estimated peak PA systolic pressure 30 mmHg. There is mild tricuspid regurgitation. Normal pulmonic valve appearance. There is trace pulmonic regurgitation. n. Hx of Present Illness 67-year-old female with past medical history based on records of prior enterococcus UTI, hypothyroidism, high cholesterol, anxiety, depression, dementia, prior pneumonia, recent treatment for septic shock secondary to urinary tract infection and pneumonia, also chronic encephalopathy who comes in because of fever. Most of her information is obtained from the ER documentation as the patient is unable to provide full HPI at this time. The patient was recently hospitalized in August for severe sepsis and pneumonia at that time. Patient when she came in was found at this time with a temperature of 101.5. She was also found with low blood pressure systolic in the 60s and had to be intubated in the ER and placed on pressor support. Patient also had a white blood cell count of 11.8. Patient also found with elevated troponins since admission and also signs of renal insufficiency as her creatinine is significantly more elevated at 4.6 today. The patient was recently here at our hospital as mentioned above from August 28 to August 31. Again, treated at that time for sepsis and septic shock secondary to pneumonia and enterococcus UTI and UMBERTO at the time. Patient also was found on admission with atrial fibrillation with RVR and given Cardizem drip but presently is in normal sinus rhythm. Hospital Course Patient initially admitted to intensive care unit. Seen by multiple specialists during this hospital stay including neurology, pulmonary, GI, cardiology, renal, palliative care teams. Patient initially treated for septic shock secondary to E. coli UTI and bacteremia, and hard to be started on pressor support as well; Patient placed on appropriate antibiotics for that. Patient also had respiratory failure and had to be intubated. Infections improved and respiratory status improved, pressor support was stopped and patient was able to be extubated later. Patient also found with seizure disorder based on EEG results, and placed on antiseizure medications and seen by neurology team for that. The symptoms improved as well. Patient also had A. fib with RVR, which improved with cardiac medications. Patient also had non-ST elevation [place] which is medically managed and treated by cardiology team. Patient also had renal insufficiency which resolved. Eventually patient was able to be transferred out of the intensive care unit as his medical conditions improved. There were a couple of different bioethics meeting held. She had G-tube placed and tolerated tube feeds. CODE STATUS was changed to DNR. Patient did have some mild tongue biting a couple days prior to discharge and this was suctioned and appeared to be resolving and anticoagulation was stopped subsequently. Hemoglobin was stable. Once a bed is found patient will be discharged back to [facility] facility today and in improved condition. See printed medical reconciliation sheet for full list of discharge medications. Home Meds Active Scripts Vancomycin Hcl (Vancocin) 1 Gm Soln, 500 MG IV Q12 for 7 Days, VIAL Prov:NUGENT,ALEN V. DEPUTY DIRECTOR OF [employer] 08/31/18 Aztreonam (AZTREONAM) 1 Gm Vial, 1 GM IV* Q12 for 7 Days, VIAL Prov:NUGENT,ALEN V. DEPUTY DIRECTOR [employer] 08/31/18 Reported Medications Donepezil* (Donepezil*) 5 Mg Tablet, 5 MG PO QHS, #30 TAB 08/28/18 Divalproex Sodium* (Depakote*) 500 Mg Tablet.dr, 500 MG PO BID, #120 TAB 08/28/18 Docusate Sodium* (Colace*) 100 Mg Capsule, 100 MG PO BID PRN for CONSTIPATION, #60 CAP 08/28/18 Atorvastatin Calcium (Atorvastatin Calcium) 10 Mg Tablet, 10 MG PO QHS, #30 TAB 08/28/18 Lorazepam* (Lorazepam*) 1 Mg Tablet, 1 MG PO BID PRN for ANXIETY, #30 TAB 08/28/18 Lactulose* (Lactulose*) 20 Gm/30 Ml Solution, 20 GM PO TID PRN for CONSTIPATION, ML 08/28/18 Trazodone Hcl* (Trazodone Hcl*) 100 Mg Tablet, 100 MG PO QHS, #30 TAB 08/28/18 Quetiapine Fumarate* (Seroquel*) 200 Mg Tablet, 200 MG PO HS, #30 TAB 08/28/18 Sennosides* (Senna Lax*) 8.6 Mg Tablet, 2 TAB PO QHS PRN for CONSTIPATION, TAB 08/28/18 Multivitamins* (Theragran*) 1 Tab Tab, 1 TAB PO DAILY, TAB 08/28/18 Polyethylene Glycol* (Miralax*) 17 Gm Powd.pack, 17 GM PO BID, #60 PACKET 08/28/18 Metoprolol Tartrate* (Lopressor*) 25 Mg Tab, 12.5 MG PO DAILY, #60 TAB HOLD IF SBP<115 OR HR<60 08/28/18 Levothyroxine Sodium* (Levothyroxine Sodium*) 50 Mcg Tablet, 50 MCG PO BEFORE BREAKFAST, #30 TAB 08/28/18 Levetiracetam* (Keppra*) 500 Mg Tablet, 500 MG PO BID, TAB 08/28/18 Gabapentin* (Gabapentin*) 400 Mg Capsule, 400 MG PO TID, #90 CAP 08/28/18 Phenylephrine HCl/[place] Butter* (Preparation H* Suppository) 1 Each Supp.rect, 1 EACH MT DAILY PRN for CONSTIPATION, SUPP.RECT 08/28/18 Mineral Oil* (Fleet* Mineral Oil Enema) 133 Ml Oil, 133 ML MT DAILY PRN for C ONSTIPATION, ENEMA 08/28/18 Acetaminophen* (Acetaminophen*) 650 Mg Tablet, 650 MG PO DAILY PRN for PAIN AND OR ELEVATED TEMP, #30 TAB 08/28/18 Bisacodyl* (Bisacodyl*) 5 Mg Tablet.dr, 10 MG PO DAILY PRN for CONSTIPATION, TAB 08/28/18 Primary Care Provider Angelita Stone MD Pending Labs Laboratory Tests Test 10/29/18 06:41 White Blood Count 4.5 10^3/ul (4.8-10.8) Red Blood Count 3.06 10^6/ul (4.20-5.40) Hemoglobin 9.5 g/dl (12.0-16.0) Hematocrit 30.4 % (37.0-47.0) Mean Corpuscular Volume 99.3 fl (82.0-101.0) Mean Corpuscular Hemoglobin 31.0 pg (29.0-33.0) Mean Corpuscular Hemoglobin Concent 31.3 g/dl (32.0-37.0) Red Cell Distribution Width 16.2 % (11.5-14.5) Platelet Count 184 10^3/UL (140-415) Mean Platelet Volume 11.0 fl (7.4-10.4) Immature Granulocytes % 0.400 % (0.001-0.429) Neutrophils % 48.2 % (39.0-77.0) Lymphocytes % 38.2 % (15.0-51.0) Monocytes % 11.9 % (0.0-11.0) Eosinophils % 0.9 % (0.0-7.0) Basophils % 0.4 % (0.0-2.0) Nucleated Red Blood Cells % 0.0 /100WBC (0.0-0.0) Immature Granulocytes # 0.020 10^3/ul (0.0-0.031) Neutrophils # 2.1 10^3/ul (1.6-7.5) Lymphocytes # 1.7 10^3/ul (0.8-2.9) Monocytes # 0.5 10^3/ul (0.3-0.9) Eosinophils # 0.0 10^3/ul (0.0-0.5) Basophils # 0.0 10^3/ul (0.0-0.1) Nucleated Red Blood Cells # 0.0 10^3/ul (0.0-0.0) Sodium Level 147 mmol/L (135-144) Potassium Level 4.0 mmol/L (3.5-5.1) Chloride Level 113 mmol/L (97-110) Carbon Dioxide Level 26 mmol/L (21-31) Anion Gap 8 (5-13) Blood Urea Nitrogen 39 mg/dl (7-20) Creatinine 0.92 mg/dl (0.44-1.00) Est Glomerular Filtrat Rate mL/min > 60 mL/min (>60) Glucose Level 114 mg/dl (70-220) Calcium Level 9.5 mg/dl (8.4-10.2) Phosphorus Level 3.9 mg/dl (2.5-4.9) Magnesium Level 1.7 mg/dl (1.7-2.5) Valproic Acid (Depakene) Level 106 ug/ml (50-100) MANUEL ALEMAN. Oct 29, 2018 11:57
--- NOTE | 2018-10-29 12:41 | CONS ---
Assessment/Plan Assessment/Plan Assessment/Plan (Daily) 1. Non Oliguric Acute kidney injury due to ATN from septic shock - Improving 2. Septic shock due to UTI 3. acute UTI with Urine Cx growing E.Coli 4. Acute hypoxic respiratory failure intubated on ventilator - s/p Extubation on 10/18/18 5. H/o HTN 6 H/o HL 7. H/o Hypothyroidism 8. E.Coli bacteremia Plan: Na 147, BUN/Cr 39/0.92- if Na continues to trend high - will consider IVF D5W - Hb 9.5 on epogen 6000 units MWF for anemia - UO 1.5 L still intermittently confused, Bp stable s/p Bioethics meeting on 10/24/18- DNR status will follow up Consultation Date/Type/Reason Admit Date/Time Oct 06, 2018 at 09:29 Initial Consult Date 10/06/18 Type of Consult NEPHROLOGY Requesting Provider: MANUEL ALEMAN Date/Time of Note DATE: 10/29/18 TIME: 12:41 Exam/Review of Systems Exam Vitals Vital Signs Date Temp Pulse Resp B/P (MAP) Pulse Ox O2 O2 Flow FiO2 Time Delivery Rate 10/29/18 98.0 75 18 132/80 96 Nasal 12:07 (97) Cannula 10/29/18 2.0 10:13 Intake and Output 10/28/18 10/28/18 10/29/18 1515:00 23:00 07:00 IntakeIntake Total 860 ml 960 ml OutputOutput Total 1000 ml 500 ml BalanceBalance -140 ml 460 ml Exam Constitutional: alert, well developed Respiratory: diminished breath sounds (bilaterally at bases) Cardiovascular: nl pulses, other (s1s2) Gastrointestinal: soft, non-tender Musculoskeletal: muscle weakness Extremities: normal pulses Neurological: confused Lymph: nontender Results Result Diagram: 10/29/18 0641 10/29/18 0641 Results 24hrs Laboratory Tests Test 10/29/18 06:41 White Blood Count 4.5 L Red Blood Count 3.06 L Hemoglobin 9.5 L Hematocrit 30.4 L Mean Corpuscular Volume 99.3 Mean Corpuscular Hemoglobin 31.0 Mean Corpuscular Hemoglobin Concent 31.3 L Red Cell Distribution Width 16.2 H Platelet Count 184 Mean Platelet Volume 11.0 H Immature Granulocytes % 0.400 Neutrophils % 48.2 Lymphocytes % 38.2 Monocytes % 11.9 H Eosinophils % 0.9 Basophils % 0.4 Nucleated Red Blood Cells % 0.0 Immature Granulocytes # 0.020 Neutrophils # 2.1 Lymphocytes # 1.7 Monocytes # 0.5 Eosinophils # 0.0 Basophils # 0.0 Nucleated Red Blood Cells # 0.0 Sodium Level 147 H Potassium Level 4.0 Chloride Level 113 H Carbon Dioxide Level 26 Anion Gap 8 Blood Urea Nitrogen 39 H Creatinine 0.92 Est Glomerular Filtrat Rate mL/min > 60 Glucose Level 114 Calcium Level 9.5 Phosphorus Level 3.9 Magnesium Level 1.7 Valproic Acid (Depakene) Level 106 H Medications Medication Current Medications IV Flush (NS 3 ml) 3 ml PER PROTOCOL IV ; Start 10/06/18 at 09:30 Ondansetron HCl (Zofran Inj) 4 mg Q6H PRN IV NAUSEA/VOMITING; Start 10/06/18 at 09:30 Acetaminophen (Tylenol Tab) 650 mg Q6H PRN PO .PAIN 1-3 OR TEMP Last administered on 10/26/18at 13:11; Admin Dose 650 MG; Start 10/06/18 at 09:30 Acetaminophen/ Hydrocodone Bitart ([place] (5/325)) 1 tab Q6H PRN PO .MOD PAIN 4- 6 Last administered on 10/29/18at 12:25; Admin Dose 1 TAB; Start 10/06/18 at 09:30 Docusate Sodium (Colace) 100 mg Q12H PRN PO .CONSTIPATION; Start 10/06/18 at 09:30 Magnesium Hydroxide (Milk Of Mag) 30 ml DAILY PRN PO .CONSTIPATION; Start 10/06/18 at 09:30 Albuterol/ Ipratropium (Duoneb) 3 ml Q4H RESP THERAPY PRN HHN SHORTNESS OF [place] TH Last administered on 10/29/18at 10:10; Admin Dose 3 ML; Start 10/06/18 at 09:30 Nitroglycerin (Nitroglycerin (Sl Tab) 0.4 Mg) 1 tab Q5M PRN SL ANGINA; Start 10/06/18 at 09:30 Bisacodyl (Dulcolax) 10 mg DAILY PRN PO CONSTIPATION; Start 10/06/18 at 09:30 Donepezil HCl (Aricept) 5 mg QHS PO Last administered on 10/28/18 22:49; Admin Dose 5 MG; Start 10/06/18 at 21:00 Lactulose (Enulose) 20 gm TID PRN PO CONSTIPATION; Start 10/06/18 at 09:30 Levothyroxine Sodium (Synthroid) 50 mcg BEFORE BREAKFAST PO Last administered on 10/29/18 06:26; Admin Dose 50 MCG; Start 10/07/18 at 07:00 Mineral Oil (Fleet Mineral Oil Enema) 133 ml DAILY PRN [place] CONSTIPATION; Start 10/06/18 at 09:30 Multivitamins Therapeutic (Theragran) 1 tab DAILY PO Last administered on 10/29/18 08:58; Admin Dose 1 TAB; Start 10/07/18 at 09:00 Aspirin (Aspirin) 81 mg DAILY NGT Last administered on 10/11/18 09:35; Admin Dose 81 MG; Start 10/06/18 at 12:30; Status Hold Atorvastatin Calcium (Lipitor) 40 mg DAILY@21 NGT Last administered on 10/28/18 20:50; Admin Dose 40 MG; Start 10/06/18 at 21:00 Miscellaneous Information (Flu Vaccine Previously Dispensed) FLU VACCINE PREVIOU... NOTE PRN XX NOTE; Start 10/06/18 at 18:00 Amiodarone HCl (Cordarone) 200 mg BID PO Last administered on 10/29/18 08:58; Admin Dose 200 MG; Start 10/09/18 at 21:00 Famotidine (Pepcid) 20 mg DAILY NGT Last administered on 10/29/18 08:58; Admin Dose 20 MG; Start 10/10/18 at 09:00 Polyethylene Glycol (Miralax) 17 gm BID PRN PO constipation; Start 10/10/18 at 22:00 Metoprolol Tartrate (Lopressor) 25 mg BID PO Last administered on 10/29/18 08:58; Admin Dose 25 MG; Start 10/12/18 at 15:00 Metoprolol Tartrate (Lopressor) 5 mg Q4H PRN IV HR>110 Hold SBP<100 Last administered on 10/20/18 11:40; Admin Dose 5 MG; Start 10/12/18 at 15:00 Levetiracetam (Keppra Liquid) 1,000 mg BID GTB Last administered on 10/29/18 08:57; Admin Dose 1,000 MG; Start 10/14/18 at 21:00 Lorazepam (Ativan) 1 mg Q4H PRN IV SEIZURES Last administered on 10/27/18 13:25; Admin Dose 1 MG; Start 10/16/18 at 12:00 Morphine Sulfate (morphine) 1 mg Q4H PRN IV .SEVERE PAIN 7-10 Last administered on 10/28/18 17:51; Admin Dose 1 MG; Start 10/16/18 at 15:45 Epoetin Nile (Epogen (Non Esrd/Non Oncology)) 6,000 units MoWeFr@17 SC Last administered on 10/28/18 17:40; Admin Dose 6,000 UNITS; Start 10/18/18 at 17:00 Quetiapine Fumarate (Seroquel) 12.5 mg QID PRN NGT anxiety/agitation Last administered on 10/23/18 12:08; Admin Dose 12.5 MG; Start 10/18/18 at 14:30 Quetiapine Fumarate (Seroquel) 12.5 mg QHS NGT Last administered on 10/28/18 20:50; Admin Dose 12.5 MG; Start 10/19/18 at 21:00 Hydralazine HCl (Apresoline) 25 mg Q6 NGT Last administered on 10/29/18 12:25; Admin Dose 25 MG; Start 10/20/18 at 12:00 Hydralazine HCl (Apresoline) 5 mg Q8H PRN IV sbp >160; Start 10/20/18 at 12:00 Miscellaneous Information (Pending [facility] Order For Wound Care) This patient martin... PRN PRN XX WOUND CARE; Start 10/21/18 at 07:30 Valproate Sodium (Depakene Liquid Cup) 1,000 mg Q8 GTB Last administered on 10/29/18 06:26; Admin Dose 1,000 MG; Start 10/22/18 at 22:00 Enoxaparin Sodium (Lovenox) 70 mg BID SC Last administered on 10/28/18 10:05; Admin Dose 70 MG; Start 10/23/18 at 21:00; Status Hold VALARIE BENNETT MD Oct 29, 2018 12:41
--- NOTE | 2018-10-29 13:12 | CONS ---
Assessment/Plan Assessment/Plan Hospital Course (Demo Recall) No fevers overnight looks comfortable Allergy: Penicillin, clindamycin Physical examination: Well-developed chronically ill-appearing elderly woman. The patient is in no distress. Head atraumatic normocephalic. Neck is supple. Chest rise symmetrical, breath sounds with crackles. Heart: S1-S2, tachycardic, irregular. Abdomen soft bowel sounds hypoactive. Extremities with dependent edema Assessment: 1. S/p sepsis 2. S/p E coli bacteremia secondary to urinary tract infection 3. Acute hypoxemic respiratory failure===> extubated 4. S/p Healthcare associated pneumonia, possibly aspiration 4. S/p UMBERTO 5. Non-ST elevation AR 6. Atrial fibrillation status post RVR 7. Seizures 8. Encephalopathy Plan: Patient remains unchanged, stable off antibiotics, status post PEG, pending dc arrangements Consultation Date/Type/Reason Admit Date/Time Oct 06, 2018 at 09:29 Initial Consult Date 10/06/18 Type of Consult id Requesting Provider: MANUEL ALEMAN Date/Time of Note DATE: 10/29/18 TIME: 13:11 Exam/Review of Systems Exam Vitals Vital Signs Date Temp Pulse Resp B/P (MAP) Pulse Ox O2 O2 Flow FiO2 Time Delivery Rate 10/29/18 98.0 75 18 132/80 96 Nasal 12:07 (97) Cannula 10/29/18 2.0 10:13 Intake and Output 10/28/18 10/28/18 10/29/18 1515:00 23:00 07:00 IntakeIntake Total 860 ml 960 ml OutputOutput Total 1000 ml 500 ml BalanceBalance -140 ml 460 ml Results Result Diagram: 10/29/18 0641 10/29/18 0641 Results 24hrs Laboratory Tests Test 10/29/18 06:41 White Blood Count 4.5 L Red Blood Count 3.06 L Hemoglobin 9.5 L Hematocrit 30.4 L Mean Corpuscular Volume 99.3 Mean Corpuscular Hemoglobin 31.0 Mean Corpuscular Hemoglobin Concent 31.3 L Red Cell Distribution Width 16.2 H Platelet Count 184 Mean Platelet Volume 11.0 H Immature Granulocytes % 0.400 Neutrophils % 48.2 Lymphocytes % 38.2 Monocytes % 11.9 H Eosinophils % 0.9 Basophils % 0.4 Nucleated Red Blood Cells % 0.0 Immature Granulocytes # 0.020 Neutrophils # 2.1 Lymphocytes # 1.7 Monocytes # 0.5 Eosinophils # 0.0 Basophils # 0.0 Nucleated Red Blood Cells # 0.0 Sodium Level 147 H Potassium Level 4.0 Chloride Level 113 H Carbon Dioxide Level 26 Anion Gap 8 Blood Urea Nitrogen 39 H Creatinine 0.92 Est Glomerular Filtrat Rate mL/min > 60 Glucose Level 114 Calcium Level 9.5 Phosphorus Level 3.9 Magnesium Level 1.7 Valproic Acid (Depakene) Level 106 H Medications Medication Current Medications IV Flush (NS 3 ml) 3 ml PER PROTOCOL IV ; Start 10/06/18 at 09:30 Ondansetron HCl (Zofran Inj) 4 mg Q6H PRN IV NAUSEA/VOMITING; Start 10/06/18 at 09:30 Acetaminophen (Tylenol Tab) 650 mg Q6H PRN PO .PAIN 1-3 OR TEMP Last administered on 10/26/18at 13:11; Admin Dose 650 MG; Start 10/06/18 at 09:30 Acetaminophen/ Hydrocodone Bitart ([place] (5/325)) 1 tab Q6H PRN PO .MOD PAIN 4- 6 Last administered on 10/29/18at 12:25; Admin Dose 1 TAB; Start 10/06/18 at 09:30 Docusate Sodium (Colace) 100 mg Q12H PRN PO .CONSTIPATION; Start 10/06/18 at 09:30 Magnesium Hydroxide (Milk Of Mag) 30 ml DAILY PRN PO .CONSTIPATION; Start 10/06/18 at 09:30 Albuterol/ Ipratropium (Duoneb) 3 ml Q4H RESP THERAPY PRN HHN SHORTNESS OF BREATH Last administered on 10/29/18at 10:10; Admin Dose 3 ML; Start 10/06/18 at 09:30 Nitroglycerin (Nitroglycerin (Sl Tab) 0.4 Mg) 1 tab Q5M PRN SL ANGINA; Start 10/06/18 at 09:30 Bisacodyl (Dulcolax) 10 mg DAILY PRN PO CONSTIPATION; Start 10/06/18 at 09:30 Donepezil HCl (Aricept) 5 mg QHS PO Last administered on 10/28/18at 22:49; Admin Dose 5 MG; Start 10/06/18 at 21:00 Lactulose (Enulose) 20 gm TID PRN PO CONSTIPATION; Start 10/06/18 at 09:30 Levothyroxine Sodium (Synthroid) 50 mcg BEFORE BREAKFAST PO Last administered on 10/29/18 06:26; Admin Dose 50 MCG; Start 10/07/18 at 07:00 Mineral Oil (Fleet Mineral Oil Enema) 133 ml DAILY PRN [place] CONSTIPATION; Start 10/06/18 at 09:30 Multivitamins Therapeutic (Theragran) 1 tab DAILY PO Last administered on 10/29/18 08:58; Admin Dose 1 TAB; Start 10/07/18 at 09:00 Aspirin (Aspirin) 81 mg DAILY NGT Last administered on 10/11/18 09:35; Admin Dose 81 MG; Start 10/06/18 at 12:30; Status Hold Atorvastatin Calcium (Lipitor) 40 mg DAILY@21 NGT Last administered on 10/28/18 20:50; Admin Dose 40 MG; Start 10/06/18 at 21:00 Miscellaneous Information (Flu Vaccine Previously Dispensed) FLU VACCINE PREVIOU... NOTE PRN XX NOTE; Start 10/06/18 at 18:00 Amiodarone HCl (Cordarone) 200 mg BID PO Last administered on 10/29/18 08:58; Admin Dose 200 MG; Start 10/09/18 at 21:00 Famotidine (Pepcid) 20 mg DAILY NGT Last administered on 10/29/18 08:58; Admin Dose 20 MG; Start 10/10/18 at 09:00 Polyethylene Glycol (Miralax) 17 gm BID PRN PO constipation; Start 10/10/18 at 22:00 Metoprolol Tartrate (Lopressor) 25 mg BID PO Last administered on 10/29/18 08:58; Admin Dose 25 MG; Start 10/12/18 at 15:00 Metoprolol Tartrate (Lopressor) 5 mg Q4H PRN IV HR>110 Hold SBP<100 Last ad ministered on 10/20/18 11:40; Admin Dose 5 MG; Start 10/12/18 at 15:00 Levetiracetam (Keppra Liquid) 1,000 mg BID GTB Last administered on 10/29/18 08:57; Admin Dose 1,000 MG; Start 10/14/18 at 21:00 Lorazepam (Ativan) 1 mg Q4H PRN IV SEIZURES Last administered on 10/27/18 13:25; Admin Dose 1 MG; Start 10/16/18 at 12:00 Morphine Sulfate (morphine) 1 mg Q4H PRN IV .SEVERE PAIN 7-10 Last administered on 10/28/18 17:51; Admin Dose 1 MG; Start 10/16/18 at 15:45 Epoetin Nile (Epogen (Non Esrd/Non Oncology)) 6,000 units MoWeFr@17 SC Last administered on 10/28/18 17:40; Admin Dose 6,000 UNITS; Start 10/18/18 at 17:00 Quetiapine Fumarate (Seroquel) 12.5 mg QID PRN NGT anxiety/agitation Last administered on 10/23/18 12:08; Admin Dose 12.5 MG; Start 10/18/18 at 14:30 Quetiapine Fumarate (Seroquel) 12.5 mg QHS NGT Last administered on 10/28/18 20:50; Admin Dose 12.5 MG; Start 10/19/18 at 21:00 Hydralazine HCl (Apresoline) 25 mg Q6 NGT Last administered on 10/29/18 12:25; Admin Dose 25 MG; Start 10/20/18 at 12:00 Hydralazine HCl (Apresoline) 5 mg Q8H PRN IV sbp >160; Start 10/20/18 at 12:00 Miscellaneous Information (Pending [facility] Order For Wound Care) This patient martin... PRN PRN XX WOUND CARE; Start 10/21/18 at 07:30 Valproate Sodium (Depakene Liquid Cup) 1,000 mg Q8 GTB Last administered on 10/29/18 06:26; Admin Dose 1,000 MG; Start 10/22/18 at 22:00 Enoxaparin Sodium (Lovenox) 70 mg BID SC Last administered on 10/28/18 10:05; Admin Dose 70 MG; Start 10/23/18 at 21:00; Status Hold MARKOS BRADY NP Oct 29, 2018 13:12
--- NOTE | 2018-10-29 14:42 | CONS ---
Consult Date/Type/Reason Admit Date/Time Oct 06, 2018 at 09:29 Initial Consult Date 10/06/18 Type of Consultation: Pulm/CCM Requesting Provider: MANUEL ALEMAN Date/Time of Note DATE: 10/29/18 TIME: 14:41 Subjective NO acute events - pt comfortable - no tachy-bardy on tele - con't care. Per nurse: no F/C/N/V/D/C Objective Vitals Vital Signs Date Temp Pulse Resp B/P (MAP) Pulse Ox O2 O2 Flow FiO2 Time Delivery Rate 10/29/18 98.0 75 18 132/80 96 Nasal 12:07 (97) Cannula 10/29/18 2.0 10:13 Intake and Output 10/28/18 10/28/18 10/29/18 1515:00 23:00 07:00 IntakeIntake Total 860 ml 960 ml OutputOutput Total 1000 ml 500 ml BalanceBalance -140 ml 460 ml Exam General: WN/WD/NAD, AOx comfortable, intermittently agitated HEENT: Unicetric/atraumatic/EOMI (does not follow commands) NECK: JVD elevated, no thyromegaly Lymph: no lymphadenopathy HEART: regular with no S3, II/ systolic murmur at apex LUNGS: Coarse sounds ABD: soft, NT, ND, +BS : Intact Neuro: non focal SKIN: chronic changes EXT: trace edema Results/Medications Result Diagram: 10/29/18 0641 10/29/18 0641 Results 24 hrs Laboratory Tests Test 10/29/18 06:41 White Blood Count 4.5 L Red Blood Count 3.06 L Hemoglobin 9.5 L Hematocrit 30.4 L Mean Corpuscular Volume 99.3 Mean Corpuscular Hemoglobin 31.0 Mean Corpuscular Hemoglobin Concent 31.3 L Red Cell Distribution Width 16.2 H Platelet Count 184 Mean Platelet Volume 11.0 H Immature Granulocytes % 0.400 Neutrophils % 48.2 Lymphocytes % 38.2 Monocytes % 11.9 H Eosinophils % 0.9 Basophils % 0.4 Nucleated Red Blood Cells % 0.0 Immature Granulocytes # 0.020 Neutrophils # 2.1 Lymphocytes # 1.7 Monocytes # 0.5 Eosinophils # 0.0 Basophils # 0.0 Nucleated Red Blood Cells # 0.0 Sodium Level 147 H Potassium Level 4.0 Chloride Level 113 H Carbon Dioxide Level 26 Anion Gap 8 Blood Urea Nitrogen 39 H Creatinine 0.92 Est Glomerular Filtrat Rate mL/min > 60 Glucose Level 114 Calcium Level 9.5 Phosphorus Level 3.9 Magnesium Level 1.7 Valproic Acid (Depakene) Level 106 H Home Meds Active Scripts Vancomycin Hcl (Vancocin) 1 Gm Soln, 500 MG IV Q12 for 7 Days, VIAL Prov:NUGENTANA CRISTINAA V. [employer]OC[employer] PROFESSOR OF GEOLOGY 08/31/18 Aztreonam (AZTREONAM) 1 Gm Vial, 1 GM IV* Q12 for 7 Days, VIAL Prov:NUGENTANA CRISTINAA V. ASSOCIATE PROFESSOR [employer] GEOLOGY 08/31/18 Reported Medications Donepezil* (Donepezil*) 5 Mg Tablet, 5 MG PO QHS, #30 TAB 08/28/18 Divalproex Sodium* (Depakote*) 500 Mg Tablet.dr, 500 MG PO BID, #120 TAB 08/28/18 Docusate Sodium* (Colace*) 100 Mg Capsule, 100 MG PO BID PRN for CONSTIPATION, #60 CAP 08/28/18 Atorvastatin Calcium (Atorvastatin Calcium) 10 Mg Tablet, 10 MG PO QHS, #30 TAB 08/28/18 Lorazepam* (Lorazepam*) 1 Mg Tablet, 1 MG PO BID PRN for ANXIETY, #30 TAB 08/28/18 Lactulose* (Lactulose*) 20 Gm/30 Ml Solution, 20 GM PO TID PRN for CONSTIPATION, ML 08/28/18 Trazodone Hcl* (Trazodone Hcl*) 100 Mg Tablet, 100 MG PO QHS, #30 TAB 08/28/18 Quetiapine Fumarate* (Seroquel*) 200 Mg Tablet, 200 MG PO HS, #30 TAB 08/28/18 Sennosides* (Senna Lax*) 8.6 Mg Tablet, 2 TAB PO QHS PRN for CONSTIPATION, TAB 08/28/18 Multivitamins* (Theragran*) 1 Tab Tab, 1 TAB PO DAILY, TAB 08/28/18 Polyethylene Glycol* (Miralax*) 17 Gm Powd.pack, 17 GM PO BID, #60 PACKET 08/28/18 Metoprolol Tartrate* (Lopressor*) 25 Mg Tab, 12.5 MG PO DAILY, #60 TAB HOLD IF SBP<115 OR HR<60 08/28/18 Levothyroxine Sodium* (Levothyroxine Sodium*) 50 Mcg Tablet, 50 MCG PO BEFORE BREAKFAST, #30 TAB 08/28/18 Levetiracetam* (Keppra*) 500 Mg Tablet, 500 MG PO BID, TAB 08/28/18 Gabapentin* (Gabapentin*) 400 Mg Capsule, 400 MG PO TID, #90 CAP 08/28/18 Phenylephrine HCl/[place] Butter* (Preparation H* Suppository) 1 Each Supp.rect, 1 EACH [place] DAILY PRN for CONSTIPATION, SUPP.RECT 08/28/18 Mineral Oil* (Fleet* Mineral Oil Enema) 133 Ml Oil, 133 ML [place] DAILY PRN for CONSTIPATION, ENEMA 08/28/18 Acetaminophen* (Acetaminophen*) 650 Mg Tablet, 650 MG PO DAILY PRN for PAIN AND OR ELEVATED TEMP, #30 TAB 08/28/18 Bisacodyl* (Bisacodyl*) 5 Mg Tablet.dr, 10 MG PO DAILY PRN for CONSTIPATION, TAB 08/28/18 Medications Current Medications IV Flush (NS 3 ml) 3 ml PER PROTOCOL IV ; Start 10/06/18 at 09:30 Ondansetron HCl (Zofran Inj) 4 mg Q6H PRN IV NAUSEA/VOMITING; Start 10/06/18 at 09:30 Acetaminophen (Tylenol Tab) 650 mg Q6H PRN PO .PAIN 1-3 OR TEMP Last administered on 10/26/18at 13:11; Admin Dose 650 MG; Start 10/06/18 at 09:30 Acetaminophen/ Hydrocodone Bitart ([place] (5/325)) 1 tab Q6H PRN PO .MOD PAIN 4- 6 Last administered on 10/29/18at 12:25; Admin Dose 1 TAB; Start 10/06/18 at 09:30 Docusate Sodium (Colace) 100 mg Q12H PRN PO .CONSTIPATION; Start 10/06/18 at 09:30 Magnesium Hydroxide (Milk Of Mag) 30 ml DAILY PRN PO .CONSTIPATION; Start 10/06/18 at 09:30 Albuterol/ Ipratropium (Duoneb) 3 ml Q4H RESP THERAPY PRN HHN SHORTNESS OF BREATH Last administered on 10/29/18at 10:10; Admin Dose 3 ML; Start 10/06/18 at 09:30 Nitroglycerin (Nitroglycerin (Sl Tab) 0.4 Mg) 1 tab Q5M PRN SL ANGINA; Start 10/06/18 at 09:30 Bisacodyl (Dulcolax) 10 mg DAILY PRN PO CONSTIPATION; Start 10/06/18 at 09:30 Donepezil HCl (Aricept) 5 mg QHS PO Last administered on 10/28/18 22:49; Admin Dose 5 MG; Start 10/06/18 at 21:00 Lactulose (Enulose) 20 gm TID PRN PO CONSTIPATION; Start 10/06/18 at 09:30 Levothyroxine Sodium (Synthroid) 50 mcg BEFORE BREAKFAST PO Last administered on 10/29/18 06:26; Admin Dose 50 MCG; Start 10/07/18 at 07:00 Mineral Oil (Fleet Mineral Oil Enema) 133 ml DAILY PRN [place] CONSTIPATION; Start 10/06/18 at 09:30 Multivitamins Therapeutic (Theragran) 1 tab DAILY PO Last administered on 10/29/18 08:58; Admin Dose 1 TAB; Start 10/07/18 at 09:00 Aspirin (Aspirin) 81 mg DAILY NGT Last administered on 10/11/18 09:35; Admin Dose 81 MG; Start 10/06/18 at 12:30; Status Hold Atorvastatin Calcium (Lipitor) 40 mg DAILY@21 NGT Last administered on 10/28/18 20:50; Admin Dose 40 MG; Start 10/06/18 at 21:00 Miscellaneous Information (Flu Vaccine Previously Dispensed) FLU VACCINE PREVIOU... NOTE PRN XX NOTE; Start 10/06/18 at 18:00 Amiodarone HCl (Cordarone) 200 mg BID PO Last administered on 10/29/18 08:58; Admin Dose 200 MG; Start 10/09/18 at 21:00 Famotidine (Pepcid) 20 mg DAILY NGT Last administered on 10/29/18 08:58; Admin Dose 20 MG; Start 10/10/18 at 09:00 Polyethylene Glycol (Miralax) 17 gm BID PRN PO constipation; Start 10/10/18 at 22:00 Metoprolol Tartrate (Lopressor) 25 mg BID PO Last administered on 10/29/18 08:58; Admin Dose 25 MG; Start 10/12/18 at 15:00 Metoprolol Tartrate (Lopressor) 5 mg Q4H PRN IV HR>110 Hold SBP<100 Last administered on 10/20/18 11:40; Admin Dose 5 MG; Start 10/12/18 at 15:00 Levetiracetam (Keppra Liquid) 1,000 mg BID GTB Last administered on 10/29/18 08:57; Admin Dose 1,000 MG; Start 10/14/18 at 21:00 Lorazepam (Ativan) 1 mg Q4H PRN IV SEIZURES Last administered on 10/27/18 13:25; Admin Dose 1 MG; Start 10/16/18 at 12:00 Morphine Sulfate (morphine) 1 mg Q4H PRN IV .SEVERE PAIN 7-10 Last administered on 10/28/18 17:51; Admin Dose 1 MG; Start 10/16/18 at 15:45 Epoetin Nile (Epogen (Non Esrd/Non Oncology)) 6,000 units MoWeFr@17 SC Last administered on 10/28/18 17:40; Admin Dose 6,000 UNITS; Start 10/18/18 at 17:00 Quetiapine Fumarate (Seroquel) 12.5 mg QID PRN NGT anxiety/agitation Last administered on 10/23/18 12:08; Admin Dose 12.5 MG; Start 10/18/18 at 14:30 Quetiapine Fumarate (Seroquel) 12.5 mg QHS NGT Last administered on 10/28/18 20:50; Admin Dose 12.5 MG; Start 10/19/18 at 21:00 Hydralazine HCl (Apresoline) 25 mg Q6 NGT Last administered on 10/29/18 12:25; Admin Dose 25 MG; Start 10/20/18 at 12:00 Hydralazine HCl (Apresoline) 5 mg Q8H PRN IV sbp >160; Start 10/20/18 at 12:00 [facility] This patient martin... PRN PRN XX WOUND CARE; Start 10/21/18 at 07:30 Valproate Sodium (Depakene Liquid Cup) 1,000 mg Q8 GTB Last administered on 3/26/19at 13:12; Admin Dose 1,000 MG; Start 10/22/18 at 22:00 Enoxaparin Sodium (Lovenox) 70 mg BID SC Last administered on 10/28/18at 10:05; Admin Dose 70 MG; Start 10/23/18 at 21:00; Status Hold Assessment/Plan Hospital Course (Demo Recall) 1. CAD - with non-ST elevation myocardial infarction, no CP now - med Rx advised. NO CP now - med Rx now. Conservative rx planned currently. STABLE. 2. Atrial fibrillation with rapid ventricular response. Converted to sinus rhythm, now back in a. fib - SINUS NOW. Rate controlled. Rate contrlled on tele. RATE controlled. 3. Hypertension. The patient is on Levophed. Continue to adjust medications as needed. She appears to be responding to IV hydration.TREATED. 4. Infection. Continue the patient on antibiotics. NO fevers. On meds. WBC normalized. ID follows.; 5. Dementia. The patient does report vascular dementia. Defer to primary team for management. 6. Acute renal failure. Continue to hydrate the patient. Renal team will follow. CR better 0.92, good urine output now. 7. Resp failure - extubated now, con't Rx. BETTER now. ZANE JACOME MD Oct 29, 2018 14:42
[2018-10-29] MEDS: hydrALAzine 20 MG INJ IV PRN (15:59)
[2018-10-29] MEDS: LORAZEPAM 2 MG INJ IV PRN (15:59)
[2018-10-29] MEDS: ACETAMINOPHEN 325 MG TAB PO PRN (21:46)
[2018-10-29] MEDS: QUETIAPINE 25 MG TAB NGT SCH (21:46)
[2018-10-29] MEDS: DONEPEZIL 5 MG TAB PO SCH (21:46)
[2018-10-29] MEDS: ATORVASTATIN 40 MG TAB NGT SCH (21:46)
[2018-10-30] VITALS (10 sets, daily range): BP systolic 115–144; BP diastolic 66–78; PULSE 77–106; RESP 16–20
[2018-10-30] MEDS: ACETAMINOPHEN 325 MG TAB PO PRN (04:20)
[2018-10-30] MEDS: VALPROIC ACID LIQUID CUP 250 MG/5 ML CUP GTB SCH ×2 (05:51→13:50)
[2018-10-30] MEDS: LEVOTHYROXINE 50 MCG TAB PO SCH (06:05)
[2018-10-30] MEDS: MULTIVITAMINS THERAPEUTIC TAB PO SCH (09:12)
[2018-10-30] MEDS: LEVETIRACETAM (100 MG/ML) 5ML CUP GTB SCH (09:12)
[2018-10-30] MEDS: FAMOTIDINE 20 MG TAB NGT SCH (09:12)
[2018-10-30] MEDS: METOPROLOL 25 MG TAB PO SCH (09:13)
[2018-10-30] MEDS: BALSAM PERU/CASTOR OIL 60 GM TUBE TOP SCH (09:13)
[2018-10-30] MEDS: AMIODARONE 200 MG TAB PO SCH (09:13)
--- NOTE | 2018-10-30 11:39 | CONS ---
Assessment/Plan Assessment/Plan Hospital Course 67 F c/ dementia, epilepsy, and other comorbidities, who presents for management of cardiopulmonary Sx. She was noted to have a generalized convulsion on 10/08, for which neurology is consulted... Certainly her acute illness is lowering her seizure threshold.. CTH is without acute intracranial pathology EEG is notable for severe left hemispheric on diffuse slowing 10/12: breakthrough seizure --> ativan rescue Repeat EEG, 10/14, is without evidence of nonconvulsive status. Depakote level on 10/28 is 86 P: Cont depakote 1g tid for now; titrate PRN to goal level 50-100. Cont Keppra 1000mg bid for now Ativan iv prn prolonged seizure or cluster OK to cont asa daily for primary stroke prevention given her afib Low dose seroquel prn agitation Continued medical management per primary Will follow Consultation Date/Type/Reason Admit Date/Time Oct 06, 2018 at 09:29 Type of Consult Neurology Reason for Consultation seizure Requesting Provider: MANUEL ALEMAN Date/Time of Note DATE: 10/30/18 TIME: 11:39 24 HR Interval Summary Free Text/Dictation Continues acute care. Exam Vital Signs Vitals Vital Signs Date Temp Pulse Resp B/P (MAP) Pulse Ox O2 O2 Flow FiO2 Time Delivery Rate 10/30/18 98.2 90 18 122/72 95 11:07 (89) 10/30/18 Nasal 2.0 08:13 Cannula 10/29/18 24 16:40 Intake and Output 10/29/18 10/29/18 10/30/18 1414:59 22:59 06:59 IntakeIntake Total 1060 ml 950 ml OutputOutput Total 800 ml 950 ml BalanceBalance 260 ml 0 ml Exam PE: Gen Appearance: Appears very anxious when woken up HEENT: Normocephalic Cardiovascular: Regular rate Abdomen: Soft Extremities: Dry NE: The patient was asleep, though arousable to voice. Incomprehensibly verbal. Able to track. Unable to follow commands. Cranial nerve examination was limited by mental status. Pupils were equal and reactive to light. There was no afferent pupillary defect. Funduscopic examination was limited. Face was grossly symmetric, w/ present corneal and cough reflexes. Tone was slightly increased in her LUE. Muscle bulk was normal. Twitching of her L shoulder/arm was noted. The patient withdrew all extremities. Coordination and gait testing was limited by mental status. Arm and leg reflexes were symmetric. Beck's sign was absent. Plantar responses were flexor. CHEYENNE JEAN NP Oct 30, 2018 11:39 FROYLAN WOOD Oct 30, 2018 14:29
--- NOTE | 2018-10-30 12:14 | DS ---
Date/Time of Note Date/Time of Note DATE: 10/30/18 TIME: 12:14 Discharge Summary Admission/Discharge Info Admit Date/Time Oct 06, 2018 at 09:29 Discharge Date/Time Discharge Diagnosis #Septic shock and respiratory failure - resolved-ID Dr. Sanford following- Likely due to UTI- Urine cultures and Blood cultures growing E Coli x2-has been off vasopressor support-Patient extubated 10/18 #Seizure disorder- Morning of 10/08 had whole body twitching concerning for seizures; got Ativan then Versed. Again on 10/11 had a similar episode broken with Ativan-10/08/18 EEG appears to have localized lesion but CT head is negative. Repeat EEG from 10/15/18 results noted, presently on Keppra and valproic acid # NSTEMI - Unclear if this is true non-ST elevation myocardial infarction versus demand ischemia- s/p heparin gtt earlier this admission, improved -continue medical management #A fib with RVR, paroxysmal-stable, presently in normal sinus rhythm # Renal insufficiency -resolved # Hypothyroidism # History of dementia. # PEG placement October 25, 2018 # History of high cholesterol. #Anemia: Probably anemia of chronic disease Patient Condition: Stable Hx of Present Illness 67-year-old female with past medical history based on records of prior enterococcus UTI, hypothyroidism, high cholesterol, anxiety, depression, dementia, prior pneumonia, recent treatment for septic shock secondary to urinary tract infection and pneumonia, also chronic encephalopathy who comes in because of fever. Most of her information is obtained from the ER documentation as the patient is unable to provide full HPI at this time. The patient was recently hospitalized in August for severe sepsis and pneumonia at that time. Patient when she came in was found at this time with a temperature of 101.5. She was also found with low blood pressure systolic in the 60s and had to be intubated in the ER and placed on pressor support. Patient also had a white blood cell count of 11.8. Patient also found with elevated troponins since admission and also signs of renal insufficiency as her creatinine is significantly more elevated at 4.6 today. The patient was recently here at our hospital as mentioned above from August 28 to August 31. Again, treated at that time for sepsis and septic shock secondary to pneumonia and enterococcus UTI and UMBERTO at the time. Patient also was found on admission with atrial fibrillation with RVR and given Cardizem drip but presently is in normal sinus rhythm. Hospital Course Patient initially admitted to intensive care unit. Seen by multiple specialists during this hospital stay including neurology, pulmonary, GI, cardiology, renal, palliative care teams. Patient initially treated for septic shock secondary to E. coli UTI and bacteremia, and hard to be started on pressor support as well; Patient placed on appropriate antibiotics for that. Patient also had respiratory failure and had to be intubated. Infections improved and respiratory status improved, pressor support was stopped and patient was able to be extubated later. Patient also found with seizure disorder based on EEG results, and placed on antiseizure medications and seen by neurology team for that. The symptoms improved as well. Patient also had A. fib with RVR, which improved with cardiac medications. Patient also had non-ST elevation OH which is medically managed and treated by cardiology team. Patient also had renal insufficiency which resolved. Eventually patient was able to be transferred out of the intensive care unit as his medical conditions improved. There were a couple of different bioethics meeting held. She had G-tube placed and tolerated tube feeds. CODE STATUS was changed to DNR. Patient did have some mild tongue biting a couple days prior to discharge and this was suctioned and appeared to be resolving and anticoagulation was stopped subsequently. Hemoglobin was stable. Patient stayed the night of October 29, 2018 in the hospital is a bed was not available at the nursing facility that day. Once a bed is found today at the detention facility which will likely occur, patient will be discharged back to detention facility today in improved condition. See printed medical reconciliation sheet for full list of discharge medications. Home Meds Active Scripts Vancomycin Hcl (Vancocin) 1 Gm Soln, 500 MG IV Q12 for 7 Days, VIAL 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 [employer] 08/31/18 Aztreonam (AZTREONAM) 1 Gm Vial, 1 GM IV* Q12 for 7 Days, VIAL 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 [employer] 08/31/18 Reported Medications Donepezil* (Donepezil*) 5 Mg Tablet, 5 MG PO QHS, #30 TAB 08/28/18 Divalproex Sodium* (Depakote*) 500 Mg Tablet.dr, 500 MG PO BID, #120 TAB 08/28/18 Docusate Sodium* (Colace*) 100 Mg Capsule, 100 MG PO BID PRN for CONSTIPATION, #60 CAP 08/28/18 Atorvastatin Calcium (Atorvastatin Calcium) 10 Mg Tablet, 10 MG PO QHS, #30 TAB 08/28/18 Lorazepam* (Lorazepam*) 1 Mg Tablet, 1 MG PO BID PRN for ANXIETY, #30 TAB 08/28/18 Lactulose* (Lactulose*) 20 Gm/30 Ml Solution, 20 GM PO TID PRN for CONSTIPATION, ML 08/28/18 Trazodone Hcl* (Trazodone Hcl*) 100 Mg Tablet, 100 MG PO QHS, #30 TAB 08/28/18 Quetiapine Fumarate* (Seroquel*) 200 Mg Tablet, 200 MG PO HS, #30 TAB 08/28/18 Sennosides* (Senna Lax*) 8.6 Mg Tablet, 2 TAB PO QHS PRN for CONSTIPATION, TAB 08/28/18 Multivitamins* (Theragran*) 1 Tab Tab, 1 TAB PO DAILY, TAB 08/28/18 Polyethylene Glycol* (Miralax*) 17 Gm Powd.pack, 17 GM PO BID, #60 PACKET 08/28/18 Metoprolol Tartrate* (Lopressor*) 25 Mg Tab, 12.5 MG PO DAILY, #60 TAB HOLD IF SBP<115 OR HR<60 08/28/18 Levothyroxine Sodium* (Levothyroxine Sodium*) 50 Mcg Tablet, 50 MCG PO BEFORE BREAKFAST, #30 TAB 08/28/18 Levetiracetam* (Keppra*) 500 Mg Tablet, 500 MG PO BID, TAB 08/28/18 Gabapentin* (Gabapentin*) 400 Mg Capsule, 400 MG PO TID, #90 CAP 08/28/18 Phenylephrine HCl/[place] Butter* (Preparation H* Suppository) 1 Each Supp.rect, 1 EACH OR DAILY PRN for CONSTIPATION, SUPP.RECT 08/28/18 Mineral Oil* (Fleet* Mineral Oil Enema) 133 Ml Oil, 133 ML OR DAILY PRN for CONSTIPATION, ENEMA 08/28/18 Acetaminophen* (Acetaminophen*) 650 Mg Tablet, 650 MG PO DAILY PRN for PAIN AND OR ELEVATED TEMP, #30 TAB 08/28/18 Bisacodyl* (Bisacodyl*) 5 Mg Tablet.dr, 10 MG PO DAILY PRN for CONSTIPATION, TAB 08/28/18 Primary Care Provider Angelita Stone MD Time spent on discharge: > 30 minutes Pending Labs Laboratory Tests Test 10/30/18 05:30 White Blood Count 7.2 10^3/ul (4.8-10.8) Red Blood Count 3.17 10^6/ul (4.20-5.40) Hemoglobin 9.8 g/dl (12.0-16.0) Hematocrit 31.5 % (37.0-47.0) Mean Corpuscular Volume 99.4 fl (82.0-101.0) Mean Corpuscular Hemoglobin 30.9 pg (29.0-33.0) Mean Corpuscular Hemoglobin Concent 31.1 g/dl (32.0-37.0) Red Cell Distribution Width 16.6 % (11.5-14.5) Platelet Count 170 10^3/UL (140-415) Mean Platelet Volume 11.3 fl (7.4-10.4) Immature Granulocytes % 0.400 % (0.001-0.429) Neutrophils % 67.0 % (39.0-77.0) Lymphocytes % 19.3 % (15.0-51.0) Monocytes % 12.9 % (0.0-11.0) Eosinophils % 0.1 % (0.0-7.0) Basophils % 0.3 % (0.0-2.0) Nucleated Red Blood Cells % 0.0 /100WBC (0.0-0.0) Immature Granulocytes # 0.030 10^3/ul (0.0-0.031) Neutrophils # 4.8 10^3/ul (1.6-7.5) Lymphocytes # 1.4 10^3/ul (0.8-2.9) Monocytes # 0.9 10^3/ul (0.3-0.9) Eosinophils # 0.0 10^3/ul (0.0-0.5) Basophils # 0.0 10^3/ul (0.0-0.1) Nucleated Red Blood Cells # 0.0 10^3/ul (0.0-0.0) Sodium Level 147 mmol/L (135-144) Potassium Level 3.8 mmol/L (3.5-5.1) Chloride Level 113 mmol/L (97-110) Carbon Dioxide Level 24 mmol/L (21-31) Anion Gap 10 (5-13) Blood Urea Nitrogen 35 mg/dl (7-20) Creatinine 0.88 mg/dl (0.44-1.00) Est Glomerular Filtrat Rate mL/min > 60 mL/min (>60) Glucose Level 112 mg/dl (70-220) Calcium Level 9.7 mg/dl (8.4-10.2) MANUEL ALEMAN Oct 30, 2018 12:14
[2018-10-30] MEDS: HYDROCODONE/APAP (5/325) TAB PO PRN (13:51)
--- NOTE | 2018-10-30 16:21 | CONS ---
Assessment/Plan Assessment/Plan Hospital Course (Demo Recall) IMP: 1. Nstemi- in setting of renal failure and shock. Downtrended 2.Shock-improved off pressors with actual HTN now 3.Tachycardia-S tach at this time 4.UTI 5.PAF with RVR-now back in SR again 6.Renal failure 7.Dyslipidemia 8.Sz d/o 9. Hypothyroid 10. anemia-s/p transfusions 11. Resp failure s/p extubation. stable 12. Dysphagia s/p PEG 13. oral bleeding-resolved Recc: -Tele -Contineu current BB/hydralazine with reasonable BP -Follow rhythm and rate closely -Continue abx's and f/u cx data -Continue statin -now in SR on po amio. Will follow rhythm clsoely -follow resp status and volume status closely -Continue keppra -Lovenox was stopped in the setting of oral bleeding. Would resume asa as tolerated Consultation Date/Type/Reason Admit Date/Time Oct 06, 2018 at 09:29 Initial Consult Date 10/06/18 Type of Consult Cardiology Reason for Consultation AF Requesting Provider: MANUEL ALEMAN Date/Time of Note DATE: 10/30/18 TIME: 16:19 Exam/Review of Systems Vital Signs Vitals Vital Signs Date Temp Pulse Resp B/P (MAP) Pulse Ox O2 O2 Flow FiO2 Time Delivery Rate 10/30/18 99.0 83 16 142/68 93 15:19 (92) 10/30/18 Nasal 2.0 08:13 Cannula 10/29/18 24 16:40 Intake and Output 10/29/18 10/29/18 10/30/18 1515:00 23:00 07:00 IntakeIntake Total 1060 ml 950 ml OutputOutput Total 800 ml 950 ml BalanceBalance 260 ml 0 ml Exam Exam Review of Systems: CONSTITUTIONAL: No fevers, chills. PULMONARY: No sob CARDIOVASCULAR: No chest pain/palpitations GASTROINTESTINAL: No nausea/vomiting. GENITOURINARY: No hematuria/dysuria. MUSCULOSKELETAL: No myagias/arthalgias. PSYCHIATRIC: The patient denies depression. NEUROLOGIC: encephalopathic Constitutional: alert Psych: no complaints Head: normocephalic ENMT: mucosa pink and moist Neck: supple, jvd (9 cm water) Respiratory: clear to auscultation Cardiovascular: irregular rhythm Gastrointestinal: soft, non-tender Musculoskeletal: muscle weakness (generalized) Extremities: edema (trace/B) Neurological: confused Labs Result Diagram: 10/30/1830 10/30/18 0530 Results 24hrs Laboratory Tests Test 10/30/18 05:30 White Blood Count 7.2 # Red Blood Count 3.17 L Hemoglobin 9.8 L Hematocrit 31.5 L Mean Corpuscular Volume 99.4 Mean Corpuscular Hemoglobin 30.9 Mean Corpuscular Hemoglobin Concent 31.1 L Red Cell Distribution Width 16.6 H Platelet Count 170 Mean Platelet Volume 11.3 H Immature Granulocytes % 0.400 Neutrophils % 67.0 Lymphocytes % 19.3 Monocytes % 12.9 H Eosinophils % 0.1 Basophils % 0.3 Nucleated Red Blood Cells % 0.0 Immature Granulocytes # 0.030 Neutrophils # 4.8 Lymphocytes # 1.4 Monocytes # 0.9 Eosinophils # 0.0 Basophils # 0.0 Nucleated Red Blood Cells # 0.0 Sodium Level 147 H Potassium Level 3.8 Chloride Level 113 H Carbon Dioxide Level 24 Anion Gap 10 Blood Urea Nitrogen 35 H Creatinine 0.88 Est Glomerular Filtrat Rate mL/min > 60 Glucose Level 112 Calcium Level 9.7 Medications Medications Current Medications IV Flush (NS 3 ml) 3 ml PER PROTOCOL IV ; Start 10/06/18 at 09:30 Ondansetron HCl (Zofran Inj) 4 mg Q6H PRN IV NAUSEA/VOMITING; Start 10/06/18 at 09:30 Acetaminophen (Tylenol Tab) 650 mg Q6H PRN PO .PAIN 1-3 OR TEMP Last ad ministered on 10/30/18at 04:20; Admin Dose 650 MG; Start 10/06/18 at 09:30 Acetaminophen/ Hydrocodone Bitart ([place] (5/325)) 1 tab Q6H PRN PO .MOD PAIN 4- 6 Last administered on 10/30/18at 13:51; Admin Dose 1 TAB; Start 10/06/18 at 09:30 Docusate Sodium (Colace) 100 mg Q12H PRN PO .CONSTIPATION; Start 10/06/18 at 09:30 Magnesium Hydroxide (Milk Of Mag) 30 ml DAILY PRN PO .CONSTIPATION; Start 10/06/18 at 09:30 Albuterol/ Ipratropium (Duoneb) 3 ml Q4H RESP THERAPY PRN HHN SHORTNESS OF BREATH Last administered on 10/29/18 16:40; Admin Dose 3 ML; Start 10/06/18 at 09:30 Nitroglycerin (Nitroglycerin (Sl Tab) 0.4 Mg) 1 tab Q5M PRN SL ANGINA; Start 10/06/18 at 09:30 Bisacodyl (Dulcolax) 10 mg DAILY PRN PO CONSTIPATION; Start 10/06/18 at 09:30 Donepezil HCl (Aricept) 5 mg QHS PO Last administered on 10/29/18 21:46; Admin Dose 5 MG; Start 10/06/18 at 21:00 Lactulose (Enulose) 20 gm TID PRN PO CONSTIPATION; Start 10/06/18 at 09:30 Levothyroxine Sodium (Synthroid) 50 mcg BEFORE BREAKFAST PO Last administered on 10/30/18 06:05; Admin Dose 50 MCG; Start 10/07/18 at 07:00 Mineral Oil (Fleet Mineral Oil Enema) 133 ml DAILY PRN [place] CONSTIPATION; Start 10/06/18 at 09:30 Multivitamins Therapeutic (Theragran) 1 tab DAILY PO Last administered on 10/30/18 09:12; Admin Dose 1 TAB; Start 10/07/18 at 09:00 Aspirin (Aspirin) 81 mg DAILY NGT Last administered on 10/11/18 09:35; Admin Dose 81 MG; Start 10/06/18 at 12:30; Status Hold Atorvastatin Calcium (Lipitor) 40 mg DAILY@21 NGT Last administered on 10/29/18 21:46; Admin Dose 40 MG; Start 10/06/18 at 21:00 Miscellaneous Information (Flu Vaccine Previously Dispensed) FLU VACCINE PREVIOU... NOTE PRN XX NOTE; Start 10/06/18 at 18:00 Amiodarone HCl (Cordarone) 200 mg BID PO Last administered on 10/30/18 09:13; Admin Dose 200 MG; Start 10/09/18 at 21:00 Famotidine (Pepcid) 20 mg DAILY NGT Last administered on 10/30/18 09:12; Admin Dose 20 MG; Start 10/10/18 at 09:00 Polyethylene Glycol (Miralax) 17 gm BID PRN PO constipation; Start 10/10/18 at 22:00 Metoprolol Tartrate (Lopressor) 25 mg BID PO Last administered on 10/30/18 09:13; Admin Dose 25 MG; Start 10/12/18 at 15:00 Metoprolol Tartrate (Lopressor) 5 mg Q4H PRN IV HR>110 Hold SBP<100 Last administered on 10/20/18 11:40; Admin Dose 5 MG; Start 10/12/18 at 15:00 Levetiracetam (Keppra Liquid) 1,000 mg BID GTB Last administered on 10/30/18 09:12; Admin Dose 1,000 MG; Start 10/14/18 at 21:00 Lorazepam (Ativan) 1 mg Q4H PRN IV SEIZURES Last administered on 10/29/18 15:59; Admin Dose 1 MG; Start 10/16/18 at 12:00 Morphine Sulfate (morphine) 1 mg Q4H PRN IV .SEVERE PAIN 7-10 Last administered on 10/28/18 17:51; Admin Dose 1 MG; Start 10/16/18 at 15:45 Epoetin Nile (Epogen (Non Esrd/Non Oncology)) 6,000 units MoWeFr@17 SC Last administered on 10/28/18 17:40; Admin Dose 6,000 UNITS; Start 10/18/18 at 17:00 Quetiapine Fumarate (Seroquel) 12.5 mg QID PRN NGT anxiety/agitation Last administered on 10/23/18 12:08; Admin Dose 12.5 MG; Start 10/18/18 at 14:30 Quetiapine Fumarate (Seroquel) 12.5 mg QHS NGT Last administered on 10/29/18 21:46; Admin Dose 12.5 MG; Start 10/19/18 at 21:00 Hydralazine HCl (Apresoline) 25 mg Q6 NGT Last administered on 10/30/18 12:26; Admin Dose 25 MG; Start 10/20/18 at 12:00 Hydralazine HCl (Apresoline) 5 mg Q8H PRN IV sbp >160 Last administered on 10/29/18 15:59; Admin Dose 5 MG; Start 10/20/18 at 12:00 Miscellaneous Information (Pending Santyl Order For Wound Care) This patient martin... PRN PRN XX WOUND CARE; Start 10/21/18 at 07:30 Valproate Sodium (Depakene Liquid Cup) 1,000 mg Q8 GTB Last administered on 10/30/18at 13:50; Admin Dose 1,000 MG; Start 10/22/18 at 22:00 Enoxaparin Sodium (Lovenox) 70 mg BID SC Last administered on 10/28/18at 10:05; Admin Dose 70 MG; Start 10/23/18 at 21:00; Status Hold ANGELA CARY Oct 30, 2018 16:21
[2018-10-30] MEDS: EPOETIN 3000 UNITS/ML (NON ESRD/NON ONCOLOGY) SC SCH (17:00)
[2018-10-30] MEDS: hydrALAzine 20 MG INJ IV PRN (17:15)
--- NOTE | 2018-10-30 18:01 | CONS ---
Assessment/Plan Assessment/Plan Assessment/Plan (Daily) 1. Non Oliguric Acute kidney injury due to ATN from septic shock - Improving 2. Septic shock due to UTI 3. acute UTI with Urine Cx growing E.Coli 4. Acute hypoxic respiratory failure intubated on ventilator - s/p Extubation on 10/18/18 5. H/o HTN 6 H/o HL 7. H/o Hypothyroidism 8. E.Coli bacteremia Plan: s/p G tubem doing ok, Bp stable, plan for d/c to SNF today s/p Bioethics meeting on 10/24/18- DNR status will follow up Consultation Date/Type/Reason Admit Date/Time Oct 06, 2018 at 09:29 Initial Consult Date 10/06/18 Type of Consult NEPHROLOGY Requesting Provider: MANUEL ALEMAN Date/Time of Note DATE: 10/30/18 TIME: 18:01 Exam/Review of Systems Exam Vitals Vital Signs Date Temp Pulse Resp B/P (MAP) Pulse Ox O2 O2 Flow FiO2 Time Delivery Rate 10/30/18 144/76 17:17 (98) 10/30/18 77 16:01 10/30/18 99.0 16 93 15:19 10/30/18 Nasal 2.0 08:13 Cannula 10/29/18 24 16:40 Intake and Output 10/29/18 10/29/18 10/30/18 1515:00 23:00 07:00 IntakeIntake Total 1060 ml 950 ml OutputOutput Total 800 ml 950 ml BalanceBalance 260 ml 0 ml Results Result Diagram: 10/30/18 0530 10/30/18 0530 Results 24hrs Laboratory Tests Test 10/30/18 05:30 White Blood Count 7.2 # Red Blood Count 3.17 L Hemoglobin 9.8 L Hematocrit 31.5 L Mean Corpuscular Volume 99.4 Mean Corpuscular Hemoglobin 30.9 Mean Corpuscular Hemoglobin Concent 31.1 L Red Cell Distribution Width 16.6 H Platelet Count 170 Mean Platelet Volume 11.3 H Immature Granulocytes % 0.400 Neutrophils % 67.0 Lymphocytes % 19.3 Monocytes % 12.9 H Eosinophils % 0.1 Basophils % 0.3 Nucleated Red Blood Cells % 0.0 Immature Granulocytes # 0.030 Neutrophils # 4.8 Lymphocytes # 1.4 Monocytes # 0.9 Eosinophils # 0.0 Basophils # 0.0 Nucleated Red Blood Cells # 0.0 Sodium Level 147 H Potassium Level 3.8 Chloride Level 113 H Carbon Dioxide Level 24 Anion Gap 10 Blood Urea Nitrogen 35 H Creatinine 0.88 Est Glomerular Filtrat Rate mL/min > 60 Glucose Level 112 Calcium Level 9.7 Medications Medication Current Medications IV Flush (NS 3 ml) 3 ml PER PROTOCOL IV ; Start 10/06/18 at 09:30 Ondansetron HCl (Zofran Inj) 4 mg Q6H PRN IV NAUSEA/VOMITING; Start 10/06/18 at 09:30 Acetaminophen (Tylenol Tab) 650 mg Q6H PRN PO .PAIN 1-3 OR TEMP Last administered on 10/30/18 04:20; Admin Dose 650 MG; Start 10/06/18 at 09:30 Acetaminophen/ Hydrocodone Bitart ([place] (5/325)) 1 tab Q6H PRN PO .MOD PAIN 4- 6 Last administered on 10/30/18at 13:51; Admin Dose 1 TAB; Start 10/06/18 at 09:30 Docusate Sodium (Colace) 100 mg Q12H PRN PO .CONSTIPATION; Start 10/06/18 at 09:30 Magnesium Hydroxide (Milk Of Mag) 30 ml DAILY PRN PO .CONSTIPATION; Start 10/06/18 at 09:30 Albuterol/ Ipratropium (Duoneb) 3 ml Q4H RESP THERAPY PRN HHN SHORTNESS OF BREATH Last administered on 10/29/18at 16:40; Admin Dose 3 ML; Start 10/06/18 at 09:30 Nitroglycerin (Nitroglycerin (Sl Tab) 0.4 Mg) 1 tab Q5M PRN SL ANGINA; Start 10/06/18 at 09:30 Bisacodyl (Dulcolax) 10 mg DAILY PRN PO CONSTIPATION; Start 10/06/18 at 09:30 Donepezil HCl (Aricept) 5 mg QHS PO Last administered on 10/29/18at 21:46; Admin Dose 5 MG; Start 10/06/18 at 21:00 Lactulose (Enulose) 20 gm TID PRN PO CONSTIPATION; Start 10/06/18 at 09:30 Levothyroxine Sodium (Synthroid) 50 mcg BEFORE BREAKFAST PO Last administered on 10/30/18at 06:05; Admin Dose 50 MCG; Start 10/07/18 at 07:00 Mineral Oil (Fleet Mineral Oil Enema) 133 ml DAILY PRN [place] CONSTIPATION; Start 10/06/18 at 09:30 Multivitamins Therapeutic (Theragran) 1 tab DAILY PO Last administered on 10/30/18 09:12; Admin Dose 1 TAB; Start 10/07/18 at 09:00 Aspirin (Aspirin) 81 mg DAILY NGT Last administered on 10/11/18 09:35; Admin D ose 81 MG; Start 10/06/18 at 12:30; Status Hold Atorvastatin Calcium (Lipitor) 40 mg DAILY@21 NGT Last administered on 10/29/18 21:46; Admin Dose 40 MG; Start 10/06/18 at 21:00 Miscellaneous Information (Flu Vaccine Previously Dispensed) FLU VACCINE PREVIOU... NOTE PRN XX NOTE; Start 10/06/18 at 18:00 Amiodarone HCl (Cordarone) 200 mg BID PO Last administered on 10/30/18 09:13; Admin Dose 200 MG; Start 10/09/18 at 21:00 Famotidine (Pepcid) 20 mg DAILY NGT Last administered on 10/30/18 09:12; Admin Dose 20 MG; Start 10/10/18 at 09:00 Polyethylene Glycol (Miralax) 17 gm BID PRN PO constipation; Start 10/10/18 at 22:00 Metoprolol Tartrate (Lopressor) 25 mg BID PO Last administered on 10/30/18 09:13; Admin Dose 25 MG; Start 10/12/18 at 15:00 Metoprolol Tartrate (Lopressor) 5 mg Q4H PRN IV HR>110 Hold SBP<100 Last administered on 10/20/18 11:40; Admin Dose 5 MG; Start 10/12/18 at 15:00 Levetiracetam (Keppra Liquid) 1,000 mg BID GTB Last administered on 10/30/18 09:12; Admin Dose 1,000 MG; Start 10/14/18 at 21:00 Lorazepam (Ativan) 1 mg Q4H PRN IV SEIZURES Last administered on 10/29/18 15:59; Admin Dose 1 MG; Start 10/16/18 at 12:00 Morphine Sulfate (morphine) 1 mg Q4H PRN IV .SEVERE PAIN 7-10 Last administered on 10/28/18 17:51; Admin Dose 1 MG; Start 10/16/18 at 15:45 Epoetin Nile (Epogen (Non Esrd/Non Oncology)) 6,000 units MoWeFr@17 SC Last administered on 10/28/18 17:40; Admin Dose 6,000 UNITS; Start 10/18/18 at 17:00 Quetiapine Fumarate (Seroquel) 12.5 mg QID PRN NGT anxiety/agitation Last administered on 10/23/18 12:08; Admin Dose 12.5 MG; Start 10/18/18 at 14:30 Quetiapine Fumarate (Seroquel) 12.5 mg QHS NGT Last administered on 10/29/18 21:46; Admin Dose 12.5 MG; Start 10/19/18 at 21:00 Hydralazine HCl (Apresoline) 25 mg Q6 NGT Last administered on 10/30/18 12:26; Admin Dose 25 MG; Start 10/20/18 at 12:00 Hydralazine HCl (Apresoline) 5 mg Q8H PRN IV sbp >160 Last administered on 10/29/18 15:59; Admin Dose 5 MG; Start 10/20/18 at 12:00 Miscellaneous Information (Pending [facility] Order For Wound Care) This patient martin... PRN PRN XX WOUND CARE; Start 10/21/18 at 07:30 Valproate Sodium (Depakene Liquid Cup) 1,000 mg Q8 GTB Last administered on 10/30/18 13:50; Admin Dose 1,000 MG; Start 10/22/18 at 22:00 Enoxaparin Sodium (Lovenox) 70 mg BID SC Last administered on 10/28/18 10:05; Admin Dose 70 MG; Start 10/23/18 at 21:00; Status Hold VALARIE BENNETT MD Oct 30, 2018 18:01
== END 2018-10-30 17:30 | DRG 870 ==
LOC: E/R 06:24 → ICU 09:29 → TEL 10-20 23:27
PROVIDERS: ADMIT Hospitalist; ATTEND Hospitalist
PROC: 02HV33Z Insertion of Infusion Device into Superior Vena Cava, Percutaneous Approach (ICD-10-PCS; principal; 2018-10-06)
PROC: 5A1955Z Respiratory Ventilation, Greater than 96 Consecutive Hours (ICD-10-PCS; 2018-10-06)
PROC: 0BH18EZ Insertion of Endotracheal Airway into Trachea, Via Natural or Artificial Opening Endoscopic (ICD-10-PCS; 2018-10-06)
PROC: 0DH63UZ Insertion of Feeding Device into Stomach, Percutaneous Approach (ICD-10-PCS; 2018-10-25)
DX: A41.51 Sepsis due to Escherichia coli [E. coli] (principal); R65.21 Severe sepsis with septic shock; J96.01 Acute respiratory failure with hypoxia; I21.4 Non-ST elevation (NSTEMI) myocardial infarction; J18.9 Pneumonia, unspecified organism; N17.0 Acute kidney failure with tubular necrosis; N39.0 Urinary tract infection, site not specified; E87.0 Hyperosmolality and hypernatremia; G93.40 Encephalopathy, unspecified; I48.0 Paroxysmal atrial fibrillation; G40.909 Epilepsy, unspecified, not intractable, without status epilepticus; E03.9 Hypothyroidism, unspecified; F03.90 Unspecified dementia, unspecified severity, without behavioral disturbance, psychotic disturbance, mood disturbance, and anxiety; D63.8 Anemia in other chronic diseases classified elsewhere; I10 Essential (primary) hypertension; F32.9 Major depressive disorder, single episode, unspecified; F41.9 Anxiety disorder, unspecified; R13.10 Dysphagia, unspecified; I25.10 Atherosclerotic heart disease of native coronary artery without angina pectoris; Z66 Do not resuscitate; R58 Hemorrhage, not elsewhere classified; Z93.1 Gastrostomy status
CPT/HCPCS: 31500; 36415; 36430; 36600; 70450; 71045; 76775; 80048; 80053; 80061; 80164; 81001; 81003; 82270; 82550; 82553; 82570; 82803; 83036; 83605; 83735; 84100; 84132; 84300; 84439; 84443; 84484; 84560; 85014; 85018; 85025; 85610; 85730; 86850; 86900; 86901; 86920; 87040; 87070; 87081; 87086; 87400; 89190; 89220; 92526; 92610; 93005; 93306; 94002; 94003; 94640; 94667; 94668; 94669; 94770; 95819; 96365; 96366; 96368; 96375; C1751; J0282; J0360; J0692; J0885; J1265; J1644; J1650; J1720; J1940; J1953; J2001; J2060; J2185; J2250; J2270; J2370; J3010; J3370; J3475; J3480; J7030; J7040; J7042; J7060; J7070; J7120; P9016; P9047

== ENCOUNTER 2018-10-30 22:23 | Inpatient (IN) | payer MEDICARE, MEDICAID ==
[~2018-10-30] VITALS: Ht 167.6 cm; Wt 64.1 kg
[2018-10-30] MEDS ORDERED: CEFEPIME 2GM/50 ML (PMX) 50 ML IVPB STA (22:32)
[2018-10-30] MEDS ORDERED: ACETAMINOPHEN 650MG/20.3ML CUP NGT STA (22:32)
[2018-10-30] MEDS ORDERED: SODIUM CHLORIDE 0.9% 1L BAG IV* STA (22:40)
--- NOTE | 2018-10-30 22:53 | ERD ---
ER Documentation Chief Complaint Chief Complaint R39. ALOC/SEPTIC. 85% O2 FROM NSF. HPI This is a 67-year-old female with a past medical history of hypertension, hyperlipidemia, atrial fibrillation, hypothyroidism, significant dementia, a recent prolonged hospital course for severe sepsis who is now presenting with concerns of recurrent sepsis. The patient was reportedly febrile and hypoxic at her snf facility, which is what prompted the healthcare staff to call an ambulance. The patient was reportedly oxygenating in the low 80s. She was started on a nonrebreather mask with her oxygen levels coming up to the mid 90s. The patient was also tachycardic in route to the hospital. The patient's baseline mentation is unclear, but she is reportedly typically communicative. She is moaning but otherwise nonverbal currently with no significant response to painful stimulation. The patient was evaluated by palliative care, Dr. Flores, during her last admission. She is reportedly DNR. History and physical is otherwise limited secondary to acuity of condition. ROS Limited secondary to acuity of condition. Medications Home Meds Active Scripts Vancomycin Hcl (Vancocin) 1 Gm Soln, 500 MG IV Q12 for 7 Days, VIAL 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 [employer] 08/31/18 Aztreonam (AZTREONAM) 1 Gm Vial, 1 GM IV* Q12 for 7 Days, VIAL 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 [employer] 08/31/18 Reported Medications Donepezil* (Donepezil*) 5 Mg Tablet, 5 MG PO QHS, #30 TAB 08/28/18 Divalproex Sodium* (Depakote*) 500 Mg Tablet.dr, 500 MG PO BID, #120 TAB 08/28/18 Docusate Sodium* (Colace*) 100 Mg Capsule, 100 MG PO BID PRN for CONSTIPATION, #60 CAP 08/28/18 Atorvastatin Calcium (Atorvastatin Calcium) 10 Mg Tablet, 10 MG PO QHS, #30 TAB 08/28/18 Lorazepam* (Lorazepam*) 1 Mg Tablet, 1 MG PO BID PRN for ANXIETY, #30 TAB 08/28/18 Lactulose* (Lactulose*) 20 Gm/30 Ml Solution, 20 GM PO TID PRN for CONSTIPATION, ML 08/28/18 Trazodone Hcl* (Trazodone Hcl*) 100 Mg Tablet, 100 MG PO QHS, #30 TAB 08/28/18 Quetiapine Fumarate* (Seroquel*) 200 Mg Tablet, 200 MG PO HS, #30 TAB 08/28/18 Sennosides* (Senna Lax*) 8.6 Mg Tablet, 2 TAB PO QHS PRN for CONSTIPATION, TAB 08/28/18 Multivitamins* (Theragran*) 1 Tab Tab, 1 TAB PO DAILY, TAB 08/28/18 Polyethylene Glycol* (Miralax*) 17 Gm Powd.pack, 17 GM PO BID, #60 PACKET 08/28/18 Metoprolol Tartrate* (Lopressor*) 25 Mg Tab, 12.5 MG PO DAILY, #60 TAB HOLD IF SBP<115 OR HR<60 08/28/18 Levetiracetam* (Keppra*) 500 Mg Tablet, 500 MG PO BID, TAB 08/28/18 Gabapentin* (Gabapentin*) 400 Mg Capsule, 400 MG PO TID, #90 CAP 08/28/18 Phenylephrine HCl/[place] Butter* (Preparation H* Suppository) 1 Each Supp.rect, 1 EACH VT DAILY PRN for CONSTIPATION, SUPP.RECT 08/28/18 Mineral Oil* (Fleet* Mineral Oil Enema) 133 Ml Oil, 133 ML VT DAILY PRN for CONSTIPATION, ENEMA 08/28/18 Acetaminophen* (Acetaminophen*) 650 Mg Tablet, 650 MG PO DAILY PRN for PAIN AND OR ELEVATED TEMP, #30 TAB 08/28/18 Bisacodyl* (Bisacodyl*) 5 Mg Tablet.dr, 10 MG PO DAILY PRN for CONSTIPATION, TAB 08/28/18 Discontinued Reported Medications Levothyroxine Sodium* (Levothyroxine Sodium*) 50 Mcg Tablet, 50 MCG PO BEFORE BREAKFAST, #30 TAB 08/28/18 Allergies Allergies: Coded Allergies: Penicillins (Unverified Allergy, Unknown, 10/30/18) Sulfa (Sulfonamide Antibiotics) (Unverified Allergy, Unknown, 10/30/18) clindamycin (Unverified Allergy, Unknown, 10/30/18) ketorolac (Unverified Allergy, Unknown, 10/30/18) lactase (Unverified Allergy, Unknown, 10/30/18) Uncoded Allergies: TRYPTOPHAN (Allergy, Unknown, 08/28/18) PMhx/Soc Obtained by previous medical records. Anesthesia Reaction: No (UNABLE TO OBTAIN INFO) Hx Neurological Disorder: Yes (DEMENTIA) Hx Respiratory Disorders: Yes (ACUTE RESPIRATORY FAILURE) Hx Cardiac Disorders: Yes (HTN, AFIB) Hx Psychiatric Problems: Yes (DEMENTIA) Hx Miscellaneous Medical Probl: Yes (HYPOTHYROID) Hx Alcohol Use: No Hx Substance Use: No Hx Tobacco Use: No FmHx Unable to obtain secondary to acuity of condition. Physical Exam Vitals Vital Signs Date Temp Pulse Resp B/P (MAP) Pulse Ox O2 O2 Flow FiO2 Time Delivery Rate 10/31/18 73 18 178/102 97 Room Air 2.0 00:17 (127) 10/30/18 102 24 114/71 100 Non 10.0 23:30 (85) Rebreathe r 10/30/18 102.4 23:25 10/30/18 105 24 132/75 100 Non 10.0 23:00 (94) Rebreathe r 10/30/18 154 30 99 Non 22:28 Rebreathe r 10/30/18 102.4 143 28 118/86 84 22:28 (97) 10/30/18 Bag Valve 15 22:28 Mask 10/30/18 Non 10.0 22:28 Rebreathe r Physical Exam Const: No apparent distress, well-developed, well-nourished Head: Normocephalic, Atraumatic Eyes: Normal Conjunctiva. Pupils equal, round and reactive to light ENT: Normal External Ears, Nose and Mouth. Neck: Trachea midline Resp: Respiratory distress. Oxygenating in the mid 80s on room air. Gurgling respirations. Coarse breath sounds bilaterally. Cardio: Irregularly irregular rhythm. Tachycardia. No murmurs, rubs or gallops Abd: Soft, non distended. Normal bowel sounds. G-tube present. Skin: No petechiae or rashes Ext: No cyanosis, or edema Neur: Minimally responsive. Groaning, but otherwise nonverbal. Minimal spontaneous movement, but not to painful stimulus. Result Diagram: 10/30/18225210/30/182252 Results 24 hrs Laboratory Tests Test 10/30/18 22:45 10/30/18 22:53 10/30/18 23:43 Blood Gas Specimen Blood arterial Source Arterial Blood Date 10/30/2018 10:40:42 PM Drawn Arterial Blood pH 7.469 (Temp corrected) Arterial Blood pCO2 33.9 mmhg (Temp correct) Arterial Blood pO2 149.2 mmHG (Temp corrected) Arterial Blood HCO3 24.1 mmol/L Arterial Blood Base 0.8 mmol/L Excess Arterial Blood 98.8 mmHG Oxygen Saturation Greg Test ACCEPTAB Arterial Blood Gas Left Radial Puncture Site Arterial 0.3 % Blood Carboxyhemoglobin Arterial Blood 0.4 % Methemoglobin Blood Gas A-a O2 529.9 mmHg Differential Oxyhemoglobin Percent 98.1 % Blood Gas Temperature 37.0 C Blood Gas Actual 26 Respiration Rate Blood Gas Modality MASK - NRB FiO2 100.0 % Blood Gas Notified Whom MH Blood Gas Notified Time 10/30/2018 10:50:39 PM White Blood Count 6.1 10^3/ul Red Blood Count 3.40 10^6/ul Hemoglobin 10.5 g/dl Hematocrit 33.5 % Mean Corpuscular Volume 98.5 fl Mean Corpuscular 30.9 pg Hemoglobin Mean Corpuscular 31.3 g/dl Hemoglobin Concent Red Cell Distribution 16.8 % Width Platelet Count 167 10^3/UL Mean Platelet Volume 11.1 fl Immature Granulocytes % 1.100 % Neutrophils % % Lymphocytes % % Monocytes % % Eosinophils % % Basophils % % Nucleated Red Blood 0.3 /100WBC Cells % Immature Granulocytes # 0.070 10^3/ul Neutrophils # 10^3/ul Lymphocytes # 10^3/ul Monocytes # 10^3/ul Eosinophils # 10^3/ul Basophils # 10^3/ul Nucleated Red Blood 10^3/ul Cells # Prothrombin Time 13.9 Sec Prothrombin Time Ratio 1.1 INR International 1.06 Normalized Ratio Activated 27.5 Sec Partial Thromboplast Time Sodium Level 144 mmol/L Potassium Level 3.9 mmol/L Chloride Level 111 mmol/L Carbon Dioxide Level 22 mmol/L Anion Gap 11 Blood Urea Nitrogen 30 mg/dl Creatinine 0.80 mg/dl Est Glomerular Filtrat > 60 mL/min Rate mL/min Glucose Level 128 mg/dl Lactic Acid Level 1.9 mmol/L Calcium Level 9.9 mg/dl Total Bilirubin 0.3 mg/dl Direct Bilirubin 0.00 mg/dl Indirect Bilirubin 0.3 mg/dl Aspartate Amino 24 IU/L Transf (AST/SGOT) Alanine < 6 IU/L Aminotransferase (ALT/SG PT) Alkaline Phosphatase 73 IU/L Troponin I < 0.012 ng/ml Total Protein 8.8 g/dl Albumin 3.3 g/dl Globulin 5.50 g/dl Albumin/Globulin Ratio 0.60 Thyroid Stimulating 5.290 MIU/L Hormone (TSH) Free Thyroxine 1.75 ng/dl Urine Color YELLOW Urine Clarity CLEAR Urine pH 7.0 Urine Specific [place] 1.016 Urine Ketones NEGATIVE mg/dL Urine Nitrite NEGATIVE mg/dL Urine Bilirubin NEGATIVE mg/dL Urine Urobilinogen NEGATIVE mg/dL Urine Leukocyte Esterase TRACE Marika/ul Urine Microscopic RBC 9 /HPF Urine Microscopic WBC 14 /HPF Urine Squamous FEW /HPF Epithelial Cells Urine Yeast (Budding) FEW /HPF Urine Hemoglobin NEGATIVE mg/dL Urine Glucose NEGATIVE mg/dL Urine Total Protein NEGATIVE mg/dl Current Medications Medications Dose Sig/Ramya Start Time Status Last (Trade) Ordered Route PRN Stop Time Admin Dose Reason Admin 650 mg ONCE STAT 10/30/18 DC 10/30/18 Acetaminophen NGT 22:32 23:25 (Tylenol 10/30/18 22:35 Liquid) Cefepime HCl 50 ml @ ONCE STAT 10/30/18 DC 10/30/18 100 mls/hr IVPB 22:32 22:54 10/30/18 23:01 Vancomycin 250 ml @ ONCE ONCE 10/30/18 10/30/18 HCl 125 mls/hr IVPB 23:00 23:46 10/31/18 00:59 Sodium 2,070 ml BOLUS OVER 2 10/30/18 DC 10/30/18 Chloride HOURS STAT 22:40 22:54 (NS) IV* 10/30/18 22:41 Diltiazem 10 mg ONCE STAT 10/30/18 DC 10/30/18 HCl IV 22:56 23:27 (Cardizem Iv) 10/30/18 22:58 Diltiazem 125 ml @ 5 ONCE STAT 10/30/18 HCl mls/hr IV 22:56 10/31/18 23:55 Ondansetron 4 mg ER BRIDGE 10/30/18 HCl (Zofran PRN IV 23:00 Inj) NAUSEA/VOMITI 10/31/18 22:59 NG 650 mg ER BRIDGE 10/30/18 Acetaminophen PRN PO 23:00 (Tylenol .MILD PAIN 10/31/18 22:59 Tab) 1-3 OR TEMP Procedures/MDM MDM The patient's presentation warrants further investigation. Previous medical records, if available, were reviewed. LABS The patient's laboratory testing was obtained and reviewed. No emergent treatment was required unless described below. CBC: No E/o systemic infection or severe anemia or thrombocytopenia. Normocytic anemia, nonemergent. Chemistry: No E/o severe acidosis or alkalosis or renal failure or liver disease or diabetic ketoacidosis. Elevated BUN, potentially concerning for dehydration. PT/INR: No E/o significant coagulopathy Lactate: No E/o severe sepsis Troponin: No E/o acute ischemia Urine: E/o acute infection without hematuria TFTs: c/f hypothyroidism, nonemergent EKG EKG read by me: Rate/Rhythm: Tachycardia with an irregularly irregular rhythm, concerning for atrial fibrillation with rapid ventricular response. Intervals: Normal QRS and QTc. Byron: Normal Impression: Nonspecific repolarization changes. A. fib with RVR. Repeat EKG read by me: Rate/Rhythm: Regular rate and rhythm with PACs at a rate of 97 bpm Intervals: Normal Byron: Right axis deviation Impression: No evidence of ischemia or arrhythmia IMAGING Imaging and Radiology interpretation reviewed. CXR FINDINGS: No focal pulmonary consolidation. Tortuous aorta is noted with atherosclerotic calcifications. Cardiac and mediastinal contours otherwise unremarkable. There is no pleural effusion or pneumothorax. Bones and soft tissues are unremarkable. IMPRESSION: No acute cardiac or pulmonary findings. Electronically viewed and signed by maxime Edgar Physician on 10/31/2018 00:01 TREATMENT/DISPOSITION The patient presents in respiratory distress. She was hypoxic with significant oral secretions. There was consideration to intubate her, but the patient is DNR. She is started on a nonrebreather and suctioned extensively with improvement of her respiratory status. Her ABG on the nonrebreather is reassuring. The patient was tachycardic and febrile. I am concerned about sepsis. A full septic workup was completed. I am concerned about a possible respiratory infection. There is also evidence of a urinary tract infection. The patient was given a sepsis bolus of IV fluids and antibiotics were initiated. Cultures were sent off. The patient's BUN is elevated. I am concerned about the possibility of dehydration and failure to thrive. The patient will benefit from IV fluids. The patient does have history of hypothyroidism. The patient's TSH is elevated, but the patient's free T4 is within normal limits. This does not require emergent treatment. The patient was also found to be in A. fib with RVR. The patient was given a bolus of Cardizem and she converted to normal sinus rhythm. She ultimately did not require the Cardizem drip. SEPSIS NOTE SIRS Criteria: Tachycardia, fever Infectious source: Respiratory End organ damage indicated by: AHRF Sat < 92% without oxygen SEPSIS MANAGEMENT Time to recognize sepsis: Upon arrival. Time to recognize severe sepsis: Upon arrival. Time to recognize septic shock: No septic shock at this time. 3 HOUR BUNDLE Blood cultures x 2 before abx: Yes 30 ml/kg NS bolus completed Initial lactate 1.9 Repeat lactate not indicated SEPTIC SHOCK ASSESSMENT: NO lactic acid > 4.0 NO persistent hypotension (SBP < 90 or 40 mmHg drop, MAP < 65) despite 30 L/kg IV fluid bolus CRITICAL CARE Critical care time 35 minutes Emergent fluid management while maintaining close respiratory support. Provision of immediate and broad-spectrum antibiotic therapy. Simultaneous assessment for possible sources in order to direct targeted therapy. Consideration for invasive and chemical support to prevent cardiopulmonary collapse. Critical care time is independent of procedures performed. ADMISSION The patient will be admitted to panel in accordance with the patient's insurance. The patient was accepted by Dr. Robledo at 10:45PM on 10/30/2018. Disclaimer: Inadvertent spelling and grammatical errors are likely due to EHR/dictation software use and do not reflect on the overall quality of patient care. Note that the electronic time recorded on this note does not necessarily reflect the actual time of the patient encounter. Departure Diagnosis: Primary Impression: Sepsis Sepsis type: sepsis due to unspecified organism Qualified Codes: A41.9 - Sepsis, unspecified organism Additional Impressions: Acute and chronic respiratory failure with hypoxia Altered mental status Altered mental status type: unspecified Qualified Codes: R41.82 - Altered mental status, unspecified DNR (do not resuscitate) Atrial fibrillation with RVR Normocytic anemia Elevated BUN Dehydration Elevated TSH Hypothyroidism Hypothyroidism type: unspecified Qualified Codes: E03.9 - Hypothyroidism, unspecified Condition: Serious LISA FITZGERALD MD Oct 30, 2018 22:53
[2018-10-30] MEDS ORDERED: DILTIAZEM 25 MG INJ IV STA (22:56)
[2018-10-30] MEDS ORDERED: DILTIAZEM-D5W 125MG/125ML DRIP 125 ML IV STA (22:56)
[2018-10-30] MEDS ORDERED: VANCOMYCIN 1 GM (PMX) 250 ML IVPB ONE (23:00)
[2018-10-30] MEDS ORDERED: ONDANSETRON 4 MG INJ IV PRN (23:00)
[2018-10-30] MEDS ORDERED: ACETAMINOPHEN 325 MG TAB PO PRN (23:00)
[2018-10-31] VITALS (12 sets, daily range): BP systolic 117–131; BP diastolic 57–78; PULSE 72–157; RESP 21–28; Ht 167.6 cm; Wt 64.1 kg
[2018-10-31] MEDS ORDERED: ONDANSETRON 4 MG INJ IV PRN (01:00)
[2018-10-31] MEDS ORDERED: LEVALBUTEROL (NEB) 0.63 MG/3 ML AMP HHN PRN (01:00)
[2018-10-31] MEDS ORDERED: NACL 0.9% 3 ML SYG IV SCH (01:00)
[2018-10-31] MEDS ORDERED: IPRATROPIUM (NEB) 0.5 MG/2.5 ML AMP NEB PRN (01:00)
[2018-10-31] MEDS: DEXTROSE 5%-0.45% NACL 1,000 ML IV SCH ×2 (01:09→08:51)
--- NOTE | 2018-10-31 06:38 | HP ---
Date/Time of Note Date/Time of Note DATE: 10/31/18 TIME: 06:32 Assessment/Plan VTE Prophylaxis Pharmacological prophylaxis: heparin Lines/Catheters IV Catheter Type (from Nrsg): Saline Lock Urinary Cath still in place: Yes Reason Cath still needed: terminal illness/intractable pain Assessment/Plan Assessment/Plan 1. Sepsis: As evidenced by fever, tachycardia and tachypnea: Secondary to ongoing UTI -Patient had a prolonged hospitalization here and was just discharged yesterday. At that time she was treated for septic shock secondary to E. coli UTI and bacteremia -will treat with IV antibiotic, IV fluid -Follow-up culture results 2. Atrial fibrillation with RVR: Status post Cardizem in the ER -Monitor in telemetry unit -Continue metoprolol 3. Severe dementia: -Continue donepezil -Continue supportive care 4. Hypothyroidism: Continue Synthroid 5. Dyslipidemia: Continue statin 6. Seizure disorder: Continue Keppra and Depakote 7. G-tube status: Recently placed. No sign of infection Result Diagram: 10/30/18 2253 10/30/18 2253 Results 24hrs Laboratory Tests Test 10/30/18 22:45 10/30/18 22:53 10/30/18 23:43 10/31/18 00:35 Blood Gas Blood arterial Specimen Source Arterial Blood 10/30/2018 10:40: Date Drawn 42 PM Arterial Blood pH 7.469 H (Temp corrected) Arterial Blood 33.9 L pCO2 (Temp correct) Arterial Blood 149.2 H pO2 (Temp corrected) Arterial Blood 24.1 HCO3 Arterial Blood 0.8 Base Excess Arterial Blood 98.8 H Oxygen Saturation Greg Test ACCEPTAB Arterial Blood Left Radial Gas Puncture Site Arterial 0.3 Blood Carboxyhemo globin Arterial Blood 0.4 Methemoglobin Blood Gas A-a O2 529.9 H Differential Oxyhemoglobin 98.1 Percent Blood Gas 37.0 Temperature Blood Gas Actual 26 Respiration Rate Blood Gas MASK - NRB Modality FiO2 100.0 Blood Gas Notified Whom Blood Gas 10/30/2018 10:50: Notified Time 39 PM White Blood Count 6.1 Red Blood Count 3.40 L Hemoglobin 10.5 L Hematocrit 33.5 L Mean Corpuscular 98.5 Volume Mean Corpuscular 30.9 Hemoglobin Mean Corpuscular 31.3 L Hemoglobin Concen t Red Cell 16.8 H Distribution Width Platelet Count 167 Mean Platelet 11.1 H Volume Immature 1.100 H Granulocytes % Neutrophils % Segmented 27 L Neutrophils % (Manual) Band Neutrophils 31 H % (Manual) Lymphocytes % Lymphocytes % 25 (Manual) Monocytes % Monocytes % 14 H (Manual) Eosinophils % Basophils % Metamyelocytes % 2 H (manual) Promyelocytes % 1 H (Manual) Nucleated Red 0.3 H Blood Cells % Immature 0.070 H Granulocytes # Neutrophils # Neutrophils # 1.8 (Manual) Band Neutrophils 1.8 H # Lymphocytes 1.5 (Manual) Lymphocytes # Monocytes # Monocytes # 0.8 (Manual) Eosinophils # Basophils # Metamyelocytes # 0.1 H Promyelocytes # 0.0 Nucleated Red Blood Cells # Platelet Estimate NORMAL Polychromasia 3+ Anisocytosis 1+ Prothrombin Time 13.9 Prothrombin Time 1.1 Ratio INR International 1.06 Normalized Ratio Activated 27.5 Partial Thrombopl ast Time Sodium Level 144 Potassium Level 3.9 Chloride Level 111 H Carbon Dioxide 22 Level Anion Gap 11 Blood Urea 30 H Nitrogen Creatinine 0.80 Est Glomerular > 60 Filtrat Rate mL/min Glucose Level 128 Lactic Acid Level 1.9 1.1 Calcium Level 9.9 Total Bilirubin 0.3 Direct Bilirubin 0.00 Indirect 0.3 Bilirubin Aspartate Amino 24 Transf (AST/SGOT) Alanine < 6 L Aminotransferase (ALT/SGPT) Alkaline 73 Phosphatase Troponin I < 0.012 Total Protein 8.8 H Albumin 3.3 Globulin 5.50 H Albumin/Globulin 0.60 Ratio Thyroid 5.290 H Stimulating Hormone (TSH) Free Thyroxine 1.75 Urine Color YELLOW Urine Clarity CLEAR Urine pH 7.0 Urine Specific 1.016 [place] Urine Ketones NEGATIVE Urine Nitrite NEGATIVE Urine Bilirubin NEGATIVE Urine NEGATIVE Urobilinogen Urine Leukocyte TRACE A Esterase Urine Microscopic 9 H RBC Urine Microscopic 14 H WBC Urine Squamous FEW Epithelial Cells Urine Yeast FEW A (Budding) Urine Hemoglobin NEGATIVE Urine Glucose NEGATIVE Urine Total NEGATIVE Protein HPI/ROS Admit Date/Time Admit Date/Time Oct 30, 2018 at 22:59 Hx of Present Illness Patient is a 67-year-old female with history of dementia, seizure, hypertension, A-fib, dyslipidemia, hypothyroidism, recent G-tube, recent hospitalization for septic shock. Shunt was sent from [facility] for fever and hypoxia. Patient was just discharged from here yesterday after she had a prolonged hospitalization. At that time she was mainly treated for a septic shock secondary to E. coli UTI and bacteremia. She has severe dementia. A G-tube was placed about a week ago. During that hospitalization, her CODE STATUS has been changed to DNR. When she presented to ER, she was febrile with temperature of 102.4. She was in rapid A. fib was documented heart rate as high as in the 150s. Oxygen saturation initially was slow was in the mid 80s. UA consistent with UTI. Chest x-ray without acute findings. PMH/Family/Social Past Medical History Medications Current Medications Diltiazem HCl 125 ml @ 5 mls/hr ONCE STAT IV ; Start 10/30/18 at 22:56; Stop 10/31/18 at 23:55 Ondansetron HCl (Zofran Inj) 4 mg ER BRIDGE PRN IV NAUSEA/VOMITING; Start 10/30/18 at 23:00; Stop 10/31/18 at 22:59 Acetaminophen (Tylenol Tab) 650 mg ER BRIDGE PRN PO .MILD PAIN 1-3 OR TEMP Last administered on 10/31/18at 03:12; Admin Dose 650 MG; Start 10/30/18 at 23:00; Stop 10/31/18 at 22:59 Dextrose/Sodium Chloride 1,000 ml @ 100 mls/hr Q10H IV Last administered on 10/31/18at 01:09; Admin Dose 100 MLS/HR; Start 10/31/18 at 00:45 IV Flush (NS 3 ml) 3 ml PER PROTOCOL IV ; Start 10/31/18 at 01:00 Ondansetron HCl (Zofran Inj) 4 mg Q6H PRN IV NAUSEA/VOMITING; Start 10/31/18 at 01:00 Heparin Sodium (Porcine) (Heparin (5000 Units/1ml)) 5,000 unit Q12 SC ; Start 10/31/18 at 09:00 Ipratropium [place] (Atrovent 0.02% (Neb)) 0.5 mg Q2H RESP THERAPY PRN NEB SHORTNESS OF BREATH; Start 10/31/18 at 01:00 Levalbuterol (Xopenex Neb) 0.63 mg Q2H RESP THERAPY PRN HHN sob, wheezing; Start 10/31/18 at 01:00 Coded Allergies: Penicillins (Unverified Allergy, Unknown, 10/30/18) Sulfa (Sulfonamide Antibiotics) (Unverified Allergy, Unknown, 10/30/18) clindamycin (Unverified Allergy, Unknown, 10/30/18) ketorolac (Unverified Allergy, Unknown, 10/30/18) lactase (Unverified Allergy, Unknown, 10/30/18) Uncoded Allergies: TRYPTOPHAN (Allergy, Unknown, 08/28/18) Past Surgical History Past Surgical Hx: other Family History Significant Family History: no pertinent family hx Social History Smoking Status: Never smoker Exam/Review of Systems Vital Signs Vitals Vital Signs Date Temp Pulse Resp B/P (MAP) Pulse Ox O2 O2 Flow FiO2 Time Delivery Rate 10/31/18 Nasal 2.0 05:00 Cannula 10/31/18 98.7 85 21 131/75 95 04:45 (93) 10/30/18 100 22:50 Intake and Output 10/30/18 10/30/18 10/31/18 1414:59 22:59 06:59 OutputOutput Total 350 ml BalanceBalance -350 ml Exam Constitutional: other (Not oriented. Demented) Eyes: PERRL Respiratory: other (Decreased breath sounds at the bases) Cardiovascular: irregular rhythm Gastrointestinal: soft Extremities: normal pulses ODETTE GONZALEZ MD Oct 31, 2018 06:38
[2018-10-31] MEDS ORDERED: DILTIAZEM-D5W 125MG/125ML DRIP 125 ML IV SCH (07:00)
[2018-10-31] MEDS: LEVETIRACETAM 500 MG TAB PO SCH ×2 (08:51→21:15)
[2018-10-31] MEDS: GABAPENTIN 400 MG CAP PO SCH ×3 (08:51→21:15)
[2018-10-31] MEDS: DIVALPROEX (EC) 500 MG TAB PO SCH ×2 (08:52→21:15)
[2018-10-31] MEDS: AZTREONAM 1 GM/NS (PMX) 50 ML IVPB SCH ×2 (08:55→21:14)
[2018-10-31] MEDS ORDERED: NS IVPB SCH (09:00)
[2018-10-31] MEDS ORDERED: AZTREONAM IVPB SCH (09:00)
[2018-10-31] MEDS ORDERED: METOPROLOL 25 MG TAB PO SCH (09:00)
[2018-10-31] MEDS ORDERED: HEPARIN 5,000 UNIT/1 ML VIAL SC SCH (09:00)
[2018-10-31] MEDS ORDERED: VANCOMYCIN 1 GM INJ IV SCH (09:00)
--- NOTE | 2018-10-31 10:54 | PN ---
Date/Time of Note Date/Time of Note DATE: 10/31/18 TIME: 10:40 Assessment/Plan VTE Prophylaxis Risk score (from Nsg)>0 risk: 8 SCD applied (from Nsg): Yes Pharmacological prophylaxis: other Lines/Catheters IV Catheter Type (from Nrsg): Peripheral IV Urinary Cath still in place: Yes Reason Cath still needed: urinary retention Assessment/Plan Hospital Course S: Patient discharged to SNF yesterday, but readmitted last night because of fever 102.4. As well as A. fib with RVR, presently on Cardizem drip. O: VS -SEE BELOW PE: GENERAL: lying in bed, opens eyes HEENT: Moist mucous membranes, dried blood noted in the pharynx area NECK: Supple, no thyromegaly. LUNGS: Mechanical breath sounds equal bilaterally. CARDIOVASCULAR: S1, S2 heard. No rubs or gallops. ABDOMEN: Soft, nontender, nondistended. Normal bowel sounds. No rebound or guarding. MUSCULOSKELETAL: No lower extremity edema bilaterally. Assessment/Plan: 67-year-old female coming in with signs of septic shock, likely secondary to urinary tract infection and pneumonia, elevated troponins, acute renal insufficiency, initially intubated requiring pressor support, now extubated and out of ICU. Also presented with atrial fibrillation with rapid ventricular response, now in normal sinus rhythm. #Fever: Again patient came in with temperature 102.4 last night. UA shows trace leukocyte esterase positive -Recently treated for E. coli UTI and bacteremia, follow-up ID recommendations -Follow final urine culture results, continue current antibiotics. Treated o n her last admission # Septic shock and respiratory failure -treated for this on her last admission, now resolved Likely due to UTI- Urine cultures and Blood cultures growing E Coli x2-has been off vasopressor support-Patient extubated 10/18 -Continue current broad-spectrum antibiotics, Tylenol p.r.n. pain and fevers, and follow-up ID recommendations #Seizure disorder-again diagnosed on her last admission recently, morning of 10/08 had whole body twitching concerning for seizures; got Ativan then Versed. Again on 10/11 had a similar episode broken with Ativan-10/08/18 EEG appears to have localized lesion but CT head is negative. Repeat EEG from 10/15/18 results noted, neuro following. - Continue keppra, valproic acid, follow-up neurology recommendations - Holding versed, but continue Ativan as needed - Low-dose Seroquel as needed for agitation # NSTEMI - Unclear if this is true non-ST elevation myocardial infarction versus demand ischemia- s/p heparin gtt earlier. Was treated for this with Lovenox twice daily, but this was stopped a few days ago secondary to oral bleeding - Continue Lipitor. -Follow-up cardiology recommendations -continue medical management #A fib with RVR- again this occurred last night when the patient was re- admitted, presently on Cardizem drip. -Monitor heart rate for now, follow up cardiology recommendations -Continue Cardizem drip for now # Renal insufficiency -resolved -Monitor # Hypothyroidism - Continue current thyroid medicines. - Low TSH, normal fT4 consistent with sick euthyroid syndrome. # History of dementia. - Continue Aricept for now. - PEG placement 10/25-we will resume these feeds today # History of high cholesterol. - Cont statin #Anemia: Probably anemia of chronic disease # Gastrointestinal prophylaxis- H2 panda. # Deep venous thrombosis prophylaxis- SCDs Result Diagram: 10/30/18225210/30/182252 Results 24hrs Laboratory Tests Test 10/30/18 22:45 10/30/18 22:53 10/30/18 23:43 10/31/18 00:35 Blood Gas Blood arterial Specimen Source Arterial Blood 10/30/2018 10:40: Date Drawn 42 PM Arterial Blood pH 7.469 H (Temp corrected) Arterial Blood 33.9 L pCO2 (Temp correct) Arterial Blood 149.2 H pO2 (Temp corrected) Arterial Blood 24.1 HCO3 Arterial Blood 0.8 Base Excess Arterial Blood 98.8 H Oxygen Saturation Greg Test ACCEPTAB Arterial Blood Left Radial Gas Puncture Site Arterial 0.3 Blood Carboxyhemo globin Arterial Blood 0.4 Methemoglobin Blood Gas A-a O2 529.9 H Differential Oxyhemoglobin 98.1 Percent Blood Gas 37.0 Temperature Blood Gas Actual 26 Respiration Rate Blood Gas MASK - NRB Modality FiO2 100.0 Blood Gas Notified Whom Blood Gas 10/30/2018 10:50: Notified Time 39 PM White Blood Count 6.1 Red Blood Count 3.40 L Hemoglobin 10.5 L Hematocrit 33.5 L Mean Corpuscular 98.5 Volume Mean Corpuscular 30.9 Hemoglobin Mean Corpuscular 31.3 L Hemoglobin Concen t Red Cell 16.8 H Distribution Width Platelet Count 167 Mean Platelet 11.1 H Volume Immature 1.100 H Granulocytes % Neutrophils % Segmented 27 L Neutrophils % (Manual) Band Neutrophils 31 H % (Manual) Lymphocytes % Lymphocytes % 25 (Manual) Monocytes % Monocytes % 14 H (Manual) Eosinophils % Basophils % Metamyelocytes % 2 H (manual) Promyelocytes % 1 H (Manual) Nucleated Red 0.3 H Blood Cells % Immature 0.070 H Granulocytes # Neutrophils # Neutrophils # 1.8 (Manual) Band Neutrophils 1.8 H # Lymphocytes 1.5 (Manual) Lymphocytes # Monocytes # Monocytes # 0.8 (Manual) Eosinophils # Basophils # Metamyelocytes # 0.1 H Promyelocytes # 0.0 Nucleated Red Blood Cells # Platelet Estimate NORMAL Polychromasia 3+ Anisocytosis 1+ Prothrombin Time 13.9 Prothrombin Time 1.1 Ratio INR International 1.06 Normalized Ratio Activated 27.5 Partial Thrombopl ast Time Sodium Level 144 Potassium Level 3.9 Chloride Level 111 H Carbon Dioxide 22 Level Anion Gap 11 Blood Urea 30 H Nitrogen Creatinine 0.80 Est Glomerular > 60 Filtrat Rate mL/min Glucose Level 128 Lactic Acid Level 1.9 1.1 Calcium Level 9.9 Total Bilirubin 0.3 Direct Bilirubin 0.00 Indirect 0.3 Bilirubin Aspartate Amino 24 Transf (AST/SGOT) Alanine < 6 L Aminotransferase (ALT/SGPT) Alkaline 73 Phosphatase Troponin I < 0.012 Total Protein 8.8 H Albumin 3.3 Globulin 5.50 H Albumin/Globulin 0.60 Ratio Thyroid 5.290 H Stimulating Hormone (TSH) Free Thyroxine 1.75 Urine Color YELLOW Urine Clarity CLEAR Urine pH 7.0 Urine Specific 1.016 [place] Urine Ketones NEGATIVE Urine Nitrite NEGATIVE Urine Bilirubin NEGATIVE Urine NEGATIVE Urobilinogen Urine Leukocyte TRACE A Esterase Urine Microscopic 9 H RBC Urine Microscopic 14 H WBC Urine Squamous FEW Epithelial Cells Urine Yeast FEW A (Budding) Urine Hemoglobin NEGATIVE Urine Glucose NEGATIVE Urine Total NEGATIVE Protein Exam/Review of Systems Exam Vitals Vital Signs Date Temp Pulse Resp B/P (MAP) Pulse Ox O2 O2 Flow FiO2 Time Delivery Rate 10/31/18 Nasal 2.0 09:31 Cannula 10/31/18 152 08:38 10/31/18 99.0 28 122/57 90 07:47 (78) 10/30/18 100 22:50 Intake and Output 10/30/18 10/30/1810/31/19 1515:00 23:00 07:00 OutputOutput Total 350 ml BalanceBalance -350 ml Results Results 24hrs Laboratory Tests Test 10/30/18 22:45 10/30/18 22:53 10/30/18 23:43 10/31/18 00:35 Blood Gas Blood arterial Specimen Source Arterial Blood 10/30/2018 10:40: Date Drawn 42 PM Arterial Blood pH 7.469 H (Temp corrected) Arterial Blood 33.9 L pCO2 (Temp correct) Arterial Blood 149.2 H pO2 (Temp corrected) Arterial Blood 24.1 HCO3 Arterial Blood 0.8 Base Excess Arterial Blood 98.8 H Oxygen Saturation Greg Test ACCEPTAB Arterial Blood Left Radial Gas Puncture Site Arterial 0.3 Blood Carboxyhemo globin Arterial Blood 0.4 Methemoglobin Blood Gas A-a O2 529.9 H Differential Oxyhemoglobin 98.1 Percent Blood Gas 37.0 Temperature Blood Gas Actual 26 Respiration Rate Blood Gas MASK - NRB Modality FiO2 100.0 Blood Gas Notified Whom Blood Gas 10/30/2018 10:50: Notified Time 39 PM White Blood Count 6.1 Red Blood Count 3.40 L Hemoglobin 10.5 L Hematocrit 33.5 L Mean Corpuscular 98.5 Volume Mean Corpuscular 30.9 Hemoglobin Mean Corpuscular 31.3 L Hemoglobin Concen t Red Cell 16.8 H Distribution Width Platelet Count 167 Mean Platelet 11.1 H Volume Immature 1.100 H Granulocytes % Neutrophils % Segmented 27 L Neutrophils % (Manual) Band Neutrophils 31 H % (Manual) Lymphocytes % Lymphocytes % 25 (Manual) Monocytes % Monocytes % 14 H (Manual) Eosinophils % Basophils % Metamyelocytes % 2 H (manual) Promyelocytes % 1 H (Manual) Nucleated Red 0.3 H Blood Cells % Immature 0.070 H Granulocytes # Neutrophils # Neutrophils # 1.8 (Manual) Band Neutrophils 1.8 H # Lymphocytes 1.5 (Manual) Lymphocytes # Monocytes # Monocytes # 0.8 (Manual) Eosinophils # Basophils # Metamyelocytes # 0.1 H Promyelocytes # 0.0 Nucleated Red Blood Cells # Platelet Estimate NORMAL Polychromasia 3+ Anisocytosis 1+ Prothrombin Time 13.9 Prothrombin Time 1.1 Ratio INR International 1.06 Normalized Ratio Activated 27.5 Partial Thrombopl ast Time Sodium Level 144 Potassium Level 3.9 Chloride Level 111 H Carbon Dioxide 22 Level Anion Gap 11 Blood Urea 30 H Nitrogen Creatinine 0.80 Est Glomerular > 60 Filtrat Rate mL/min Glucose Level 128 Lactic Acid Level 1.9 1.1 Calcium Level 9.9 Total Bilirubin 0.3 Direct Bilirubin 0.00 Indirect 0.3 Bilirubin Aspartate Amino 24 Transf (AST/SGOT) Alanine < 6 L Aminotransferase (ALT/SGPT) Alkaline 73 Phosphatase Troponin I < 0.012 Total Protein 8.8 H Albumin 3.3 Globulin 5.50 H Albumin/Globulin 0.60 Ratio Thyroid 5.290 H Stimulating Hormone (TSH) Free Thyroxine 1.75 Urine Color YELLOW Urine Clarity CLEAR Urine pH 7.0 Urine Specific 1.016 [place] Urine Ketones NEGATIVE Urine Nitrite NEGATIVE Urine Bilirubin NEGATIVE Urine NEGATIVE Urobilinogen Urine Leukocyte TRACE A Esterase Urine Microscopic 9 H RBC Urine Microscopic 14 H WBC Urine Squamous FEW Epithelial Cells Urine Yeast FEW A (Budding) Urine Hemoglobin NEGATIVE Urine Glucose NEGATIVE Urine Total NEGATIVE Protein Medications Medication Current Medications Dextrose/Sodium Chloride 1,000 ml @ 100 mls/hr Q10H IV Last administered on 10/31/18at 08:51; Admin Dose 100 MLS/HR; Start 10/31/18 at 00:45 IV Flush (NS 3 ml) 3 ml PER PROTOCOL IV ; Start 10/31/18 at 01:00 Ondansetron HCl (Zofran Inj) 4 mg Q6H PRN IV NAUSEA/VOMITING; Start 10/31/18 at 01:00 Heparin Sodium (Porcine) (Heparin (5000 Units/1ml)) 5,000 unit Q12 SC Last administered on 10/31/18at 08:58; Admin Dose 5,000 UNIT; Start 10/31/18 at 09:00 Ipratropium [place] (Atrovent 0.02% (Neb)) 0.5 mg Q2H RESP THERAPY PRN NEB SHORTNESS OF BREATH; Start 10/31/18 at 01:00 Levalbuterol (Xopenex Neb) 0.63 mg Q2H RESP THERAPY PRN HHN sob, wheezing; Start 10/31/18 at 01:00 Atorvastatin Calcium (Lipitor) 10 mg QHS PO ; Start 10/31/18 at 21:00 Divalproex Sodium (Depakote) 500 mg BID PO Last administered on 10/31/18at 08:52; Admin Dose 500 MG; Start 10/31/18 at 09:00 Donepezil HCl (Aricept) 5 mg QHS PO ; Start 10/31/18 at 21:00 Gabapentin (Neurontin) 400 mg TID PO Last administered on 10/31/18at 08:51; Admin Dose 400 MG; Start 10/31/18 at 09:00 Levetiracetam (Keppra) 500 mg BID PO Last administered on 10/31/18at 08:51; Admin Dose 500 MG; Start 10/31/18 at 09:00 Metoprolol Tartrate (Lopressor) 12.5 mg DAILY PO Last administered on 10/31/18 08:52; Admin Dose 12.5 MG; Start 10/31/18 at 09:00 Quetiapine Fumarate (Seroquel) 200 mg HS PO ; Start 10/31/18 at 21:00 Trazodone HCl (Desyrel) 100 mg QHS PO ; Start 10/31/18 at 21:00 Vancomycin HCl (Vancocin) 0.5 gm Q12 IV ; Start 10/31/18 at 09:00; Status UNV Diltiazem HCl 125 ml @ 5 mls/hr TITRATE IV ; Start 10/31/18 at 07:00 Aztreonam 50 ml @ 100 mls/hr Q12H IVPB Last administered on 10/31/18at 08:55; Admin Dose 100 MLS/HR; Start 10/31/18 at 09:00 MANUEL ALEMAN Oct 31, 2018 10:52
[2018-10-31] MEDS: VANCOMYCIN 500 MG (PMX) 100 ML IVPB SCH (12:21)
[2018-10-31] MEDS ORDERED: DILTIAZEM 25 MG INJ IV PRN (14:30)
--- NOTE | 2018-10-31 16:06 | CONS ---
DATE OF ADMISSION: 10/30/2018 DATE OF CONSULTATION: 10/31/2018 TYPE OF CONSULTATION: Cardiology. REASON FOR CONSULTATION: Atrial fibrillation with rapid ventricular response. REQUESTING PHYSICIAN: Manuel Aleman MD, from the hospitalist service. HISTORY OF PRESENT ILLNESS: Ms. Leal is a 67-year-old female with history of paroxysmal atrial fibrillation, dyslipidemia, renal failure, seizure disorder, anemia, dysphagia status post G-tube, wh o had initially been admitted to [facility] on 10/06/2018 at that time for shortnes s of breath and associated fevers, diagnosed with urinary tract infection and upper respiratory tract infection and minimally positive troponins, atrial fibrillation with rapid ventricular response, acu te on chronic renal failure and a shock state. The patient during hospitalization required pressure support, intubation and was extubated. The patient was transferred to the floor and was placed on br oad spectrum antibiotics, treated for seizures, watched on telemetry and had conversion to sinus rhyt and was discharged to outpatient followup and ____ half-way facility and was transported ba due to fevers. Initially upon arrival, temperature was 102.4, blood pressure 118/86, pulse 154, s atting 99% on 15 liters. The patient's labs were notable for a white blood cell count of 6.1, hemogl obin 10.5, platelet count 167, sodium 144, potassium 3.9, creatinine 0.8, BUN 30, ALT 24, AST less th an 6, TSH of 5.29, free T4 normal at 1.75, albumin 3.3, INR 1.0. UA positive. The patient underwent a chest x-ray revealing no acute cardio or pulmonary pathology. The patient's electrocardiogram rev ealed atrial fibrillation with rapid ventricular response, rate 151, normal axis, normal intervals, n onspecific ST-T wave abnormalities diffusely. The patient subsequently has been readmitted to [facility] floor where she has been placed on broad spectrum antibiotics and low-dose beta panda with dilt iazem drip, currently being in sinus rhythm at this time. PAST MEDICAL HISTORY: As above in HPI. MEDICATIONS CURRENTLY IN HOSPITAL: 1. Lipitor 10 mg at bedtime. 2. Aricept 5 mg at bedtime. 3. Seroquel 200 mg at bedtime. 4. Trazodone. 5. Vancomycin. 6. Depakote. 7. Neurontin. 8. Keppra. 9. Metoprolol 12.5 mg p.o. daily. 10. Aztreonam. 11. Diltiazem drip. ALLERGIES: 1. PENICILLIN. 2. TRYPTOPHAN. 3. CLINDAMYCIN. 4. TORADOL. SOCIAL HISTORY: No current tobacco, EtOH or illicit drug use. FAMILY HISTORY: No history of sudden cardiac or early CAD. REVIEW OF SYSTEMS: As above in HPI. CONSTITUTIONAL: Positive fever and chills. PULMONARY: No signs of respiratory compromise. GASTROINTESTINAL: Dysphagia, status post G-tube. GENITOURINARY: No hematuria but possible UTI. PSYCHIATRIC: Positive psychiatric history. NEUROLOGIC: Encephalopathy. PHYSICAL EXAMINATION: VITAL SIGNS: Temperature 99, blood pressure most recently 117/73, pulse 75, respiratory rate ____, 9 7% on 2 liters. GENERAL: The patient is sleeping, arousable, confused, agitated. NECK: JVP approximately is 9 cm of water. CHEST: Upper airway transmitted rhonchus sounds. HEART: Currently regular rate and rhythm. Normal S1, S2, I/ systolic murmur. ABDOMEN: Positive bowel sounds, soft. EXTREMITIES: Trace edema, 1+ pulses bilateral posterior tibial. LABORATORIES: As above in HPI. No further labs for my review at this time. IMAGING STUDIES: As above in HPI. No further imaging studies for my review at this time. ELECTROCARDIOGRAM: As above in HPI. No further electrocardiograms for my review at this time. IMPRESSION: 1. Paroxysmal atrial fibrillation with rapid ventricular response with patient previously being on L ovenox and then developed bleeding on that and therefore was discontinued due to bleeding. The patie nt was initially placed on aspirin, which can be continued. 2. Abnormal electrocardiogram with nonspecific ST-T wave abnormalities, assess for acute coronary sy ndrome. 3. History of recent edm-HT-ehdobiftx myocardial infarction. 4. Fevers. 5. Urinary tract infection. 6. Dyslipidemia. 7. Seizure disorder. 8. Hypothyroidism. 9. Encephalopathy. 10. Anemia requiring transfusions previously. RECOMMENDATIONS: 1. At this time, we would maintain the patient on telemetry monitoring to follow rhythm and rate con trol closely. 2. We would continue the patient's beta panda with up titration to improve overall heart rate cont rol and wean off the patient's diltiazem. 3. We will start the patient on p.o. amiodarone in an attempt to maintain sinus rhythm at this time and we will initiate the patient on aspirin for prophylaxis against thromboembolic events. 4. Continue the patient's broad-spectrum antibiotics, follow up culture data. 5. Continue the patient's statin therapy. 6. Continue to follow the patient's volume status and mental status closely. Thank you for allowing me to take part in the care of this patient. I will continue to follow her ve ry closely with you with further recommendations to be made as the [facility] Dictated By: ANGELA FARIAS/MELIA Conf#: [id number] DID#: [id number] CC: ODETTE GONZALEZ MD; MANUEL ALEMAN; JOCELYNN MAYFIELD MD;*End*
--- NOTE | 2018-10-31 17:50 | CONS ---
Assessment/Plan Assessment/Plan Hospital Course (Demo Recall) S/p fever 102.4, nad Allergy: Penicillin, clindamycin Abx: Vanco Azactam Physical examination: Chronically ill-appearing debilitated elderly woman. The patient is in no distress. Head atraumatic normocephalic. Neck is supple. Chest rise symmetrical, breath sounds with crackles. Heart: S1-S2. Abdomen soft bowel sounds hypoactive. Extremities with dependent edema Assessment: 1. Sepsis, likely 2 to recurrent UTI==> + UA 2. Poss aspiration event 3. SZ disorder 4. Dysphagia/secretions retention 4. S/p UMBERTO 5. Non-ST elevation GA 6. Atrial fibrillation 7. Encephalopathy Plan: Abx restarted for high fever, pending bld and urine cx, will f/u cxr in am Consultation Date/Type/Reason Admit Date/Time Oct 30, 2018 at 22:59 Initial Consult Date Type of Consult id Date/Time of Note DATE: 10/31/18 TIME: 17:45 Exam/Review of Systems Exam Vitals Vital Signs Date Temp Pulse Resp B/P (MAP) Pulse Ox O2 O2 Flow FiO2 Time Delivery Rate 10/31/18 2.0 17:32 10/31/18 86 16:32 10/31/18 Nasal 16:22 Cannula 10/31/18 100.1 28 125/78 95 15:38 (94) 10/30/18 100 22:50 Intake and Output 10/30/18 10/30/18 10/31/18 1515:00 23:00 07:00 OutputOutput Total 350 ml BalanceBalance -350 ml Results Result Diagram: 10/30/18225210/30/182252 Results 24hrs Laboratory Tests Test 10/30/18 22:45 10/30/18 22:53 10/30/18 23:43 10/31/18 00:35 Blood Gas Blood arterial Specimen Source Arterial Blood 10/30/2018 10:40: Date Drawn 42 PM Arterial Blood pH 7.469 H (Temp corrected) Arterial Blood 33.9 L pCO2 (Temp correct) Arterial Blood 149.2 H pO2 (Temp corrected) Arterial Blood 24.1 HCO3 Arterial Blood 0.8 Base Excess Arterial Blood 98.8 H Oxygen Saturation Greg Test ACCEPTAB Arterial Blood Left Radial Gas Puncture Site Arterial 0.3 Blood Carboxyhemo globin Arterial Blood 0.4 Methemoglobin Blood Gas A-a O2 529.9 H Differential Oxyhemoglobin 98.1 Percent Blood Gas 37.0 Temperature Blood Gas Actual 26 Respiration Rate Blood Gas MASK - NRB Modality FiO2 100.0 Blood Gas Notified Whom Blood Gas 10/30/2018 10:50: Notified Time 39 PM White Blood Count 6.1 Red Blood Count 3.40 L Hemoglobin 10.5 L Hematocrit 33.5 L Mean Corpuscular 98.5 Volume Mean Corpuscular 30.9 Hemoglobin Mean Corpuscular 31.3 L Hemoglobin Concen t Red Cell 16.8 H Distribution Width Platelet Count 167 Mean Platelet 11.1 H Volume Immature 1.100 H Granulocytes % Neutrophils % Segmented 27 L Neutrophils % (Manual) Band Neutrophils 31 H % (Manual) Lymphocytes % Lymphocytes % 25 (Manual) Monocytes % Monocytes % 14 H (Manual) Eosinophils % Basophils % Metamyelocytes % 2 H (manual) Promyelocytes % 1 H (Manual) Nucleated Red 0.3 H Blood Cells % Immature 0.070 H Granulocytes # Neutrophils # Neutrophils # 1.8 (Manual) Band Neutrophils 1.8 H # Lymphocytes 1.5 (Manual) Lymphocytes # Monocytes # Monocytes # 0.8 (Manual) Eosinophils # Basophils # Metamyelocytes # 0.1 H Promyelocytes # 0.0 Nucleated Red Blood Cells # Platelet Estimate NORMAL Polychromasia 3+ Anisocytosis 1+ Prothrombin Time 13.9 Prothrombin Time 1.1 Ratio INR International 1.06 Normalized Ratio Activated 27.5 Partial Thrombopl ast Time Sodium Level 144 Potassium Level 3.9 Chloride Level 111 H Carbon Dioxide 22 Level Anion Gap 11 Blood Urea 30 H Nitrogen Creatinine 0.80 Est Glomerular > 60 Filtrat Rate mL/min Glucose Level 128 Lactic Acid Level 1.9 1.1 Calcium Level 9.9 Total Bilirubin 0.3 Direct Bilirubin 0.00 Indirect 0.3 Bilirubin Aspartate Amino 24 Transf (AST/SGOT) Alanine < 6 L Aminotransferase (ALT/SGPT) Alkaline 73 Phosphatase Troponin I < 0.012 Total Protein 8.8 H Albumin 3.3 Globulin 5.50 H Albumin/Globulin 0.60 Ratio Thyroid 5.290 H Stimulating Hormone (TSH) Free Thyroxine 1.75 Urine Color YELLOW Urine Clarity CLEAR Urine pH 7.0 Urine Specific 1.016 [place] Urine Ketones NEGATIVE Urine Nitrite NEGATIVE Urine Bilirubin NEGATIVE Urine NEGATIVE Urobilinogen Urine Leukocyte TRACE A Esterase Urine Microscopic 9 H RBC Urine Microscopic 14 H WBC Urine Squamous FEW Epithelial Cells Urine Yeast FEW A (Budding) Urine Hemoglobin NEGATIVE Urine Glucose NEGATIVE Urine Total NEGATIVE Protein Medications Medication Current Medications Dextrose/Sodium Chloride 1,000 ml @ 100 mls/hr Q10H IV Last administered on 10/31/18at 08:51; Admin Dose 100 MLS/HR; Start 10/31/18 at 00:45 IV Flush (NS 3 ml) 3 ml PER PROTOCOL IV ; Start 10/31/18 at 01:00 Ondansetron HCl (Zofran Inj) 4 mg Q6H PRN IV NAUSEA/VOMITING; Start 10/31/18 at 01:00 Ipratropium [place] (Atrovent 0.02% (Neb)) 0.5 mg Q2H RESP THERAPY PRN NEB SHORTNESS OF BREATH; Start 10/31/18 at 01:00 Levalbuterol (Xopenex Neb) 0.63 mg Q2H RESP THERAPY PRN HHN sob, wheezing; Start 10/31/18 at 01:00 Atorvastatin Calcium (Lipitor) 10 mg QHS PO ; Start 10/31/18 at 21:00 Divalproex Sodium (Depakote) 500 mg BID PO Last administered on 10/31/18at 08:52; Admin Dose 500 MG; Start 10/31/18 at 09:00 Donepezil HCl (Aricept) 5 mg QHS PO ; Start 10/31/18 at 21:00 Gabapentin (Neurontin) 400 mg TID PO Last administered on 10/31/18at 12:19; Admin Dose 400 MG; Start 10/31/18 at 09:00 Levetiracetam (Keppra) 500 mg BID PO Last administered on 10/31/18at 08:51; Admin Dose 500 MG; Start 10/31/18 at 09:00 Quetiapine Fumarate (Seroquel) 200 mg HS PO ; Start 10/31/18 at 21:00 Trazodone HCl (Desyrel) 100 mg QHS PO ; Start 10/31/18 at 21:00 Aztreonam 50 ml @ 100 mls/hr Q12H IVPB Last administered on 10/31/18at 08:55; Admin Dose 100 MLS/HR; Start 10/31/18 at 09:00 Vancomycin HCl 100 ml @ 100 mls/hr Q12H IVPB Last administered on 10/31/18at 12:21; Admin Dose 100 MLS/HR; Start 10/31/18 at 13:00 Metoprolol Tartrate (Lopressor) 25 mg BID PO ; Start 10/31/18 at 21:00 Amiodarone HCl (Cordarone) 200 mg BID PO ; Start 10/31/18 at 21:00 Enoxaparin Sodium (Lovenox) 40 mg DAILY SC ; Start 11/01/18 at 09:00 Diltiazem HCl (Cardizem Iv) 5 mg Q3 PRN IV HR>110 Hold SBP<100; Start 10/31/18 at 14:30 MARKOS BRADY NP Oct 31, 2018 17:50
[2018-10-31] MEDS: QUETIAPINE 100 MG TAB PO SCH (21:14)
[2018-10-31] MEDS: ATORVASTATIN 10 MG TAB PO SCH (21:14)
[2018-10-31] MEDS: DONEPEZIL 5 MG TAB PO SCH (21:15)
[2018-10-31] MEDS: METOPROLOL 25 MG TAB PO SCH (21:15)
[2018-10-31] MEDS: traZODone 100 MG TAB PO SCH (21:15)
[2018-10-31] MEDS: AMIODARONE 200 MG TAB PO SCH (21:16)
[2018-11-01] VITALS (9 sets, daily range): BP systolic 90–140; BP diastolic 54–95; PULSE 73–89; RESP 17–21
[2018-11-01] MEDS: VANCOMYCIN 500 MG (PMX) 100 ML IVPB SCH ×2 (00:35→13:28)
[2018-11-01] MEDS: DEXTROSE 5%-0.45% NACL 1,000 ML IV SCH ×3 (03:01→12:03)
[2018-11-01] MEDS ORDERED: POTASSIUM CHLORIDE (SR) 20 MEQ TAB PO STA (08:20)
--- NOTE | 2018-11-01 08:22 | PN ---
Date/Time of Note Date/Time of Note DATE: 11/01/18 TIME: 08:22 Assessment/Plan VTE Prophylaxis Risk score (from Ns)>0 risk: 8 SCD applied (from Ns): Yes Pharmacological prophylaxis: other Lines/Catheters IV Catheter Type (from [facility]): Peripheral IV Urinary Cath still in place: Yes Reason Cath still needed: urinary retention Assessment/Plan Hospital Course Result Diagram: 11/01/18 0518 11/01/18 0518 Results 24hrs Laboratory Tests Test 10/31/18 17:12 11/01/18 00:22 11/01/18 05:18 Troponin I 0.013 0.017 White Blood Count 5.2 Red Blood Count 2.27 #L Hemoglobin 7.3 #L Hematocrit 22.7 #L Mean Corpuscular Volume 100.0 Mean Corpuscular Hemoglobin 32.2 Mean Corpuscular Hemoglobin Concent 32.2 Red Cell Distribution Width 16.8 H Platelet Count 131 #L Mean Platelet Volume 10.9 H Immature Granulocytes % 2.700 H Neutrophils % Lymphocytes % Monocytes % Eosinophils % Basophils % Nucleated Red Blood Cells % 0.0 Immature Granulocytes # 0.140 H Neutrophils # Lymphocytes # Monocytes # Eosinophils # Basophils # Nucleated Red Blood Cells # Sodium Level 141 Potassium Level 3.0 L Chloride Level 114 H Carbon Dioxide Level 21 Anion Gap 6 Blood Urea Nitrogen 23 H Creatinine 0.86 Est Glomerular Filtrat Rate mL/min > 60 Glucose Level 123 Calcium Level 8.9 Magnesium Level 1.6 L Total Bilirubin 0.0 L Direct Bilirubin 0.00 Indirect Bilirubin 0.0 Aspartate Amino Transf (AST/SGOT) 18 Alanine Aminotransferase (ALT/SGPT) 12 L Alkaline Phosphatase 52 Total Protein 6.0 #L Albumin 2.2 #L Globulin 3.80 H Albumin/Globulin Ratio 0.57 Exam/Review of Systems Exam Vitals Vital Signs Date Temp Pulse Resp B/P (MAP) Pulse Ox O2 O2 Flow FiO2 Time Delivery Rate 11/01/18 80 08:11 11/01/18 98.2 18 107/64 100 07:45 (78) 11/01/18 2.0 06:39 10/31/18 Nasal 20:00 Cannula 10/30/18 100 22:50 Intake and Output 10/31/18 10/31/18 11/01/18 1515:00 23:00 07:00 IntakeIntake Total 150 ml 1725 ml 2000 ml OutputOutput Total 750 ml 300 ml BalanceBalance 150 ml 975 ml 1700 ml Results Results 24hrs Laboratory Tests Test 10/31/18 17:12 11/01/18 00:22 11/01/18 05:18 Troponin I 0.013 0.017 White Blood Count 5.2 Red Blood Count 2.27 #L Hemoglobin 7.3 #L Hematocrit 22.7 #L Mean Corpuscular Volume 100.0 Mean Corpuscular Hemoglobin 32.2 Mean Corpuscular Hemoglobin Concent 32.2 Red Cell Distribution Width 16.8 H Platelet Count 131 #L Mean Platelet Volume 10.9 H Immature Granulocytes % 2.700 H Neutrophils % Lymphocytes % Monocytes % Eosinophils % Basophils % Nucleated Red Blood Cells % 0.0 Immature Granulocytes # 0.140 H Neutrophils # Lymphocytes # Monocytes # Eosinophils # Basophils # Nucleated Red Blood Cells # Sodium Level 141 Potassium Level 3.0 L Chloride Level 114 H Carbon Dioxide Level 21 Anion Gap 6 Blood Urea Nitrogen 23 H Creatinine 0.86 Est Glomerular Filtrat Rate mL/min > 60 Glucose Level 123 Calcium Level 8.9 Magnesium Level 1.6 L Total Bilirubin 0.0 L Direct Bilirubin 0.00 Indirect Bilirubin 0.0 Aspartate Amino Transf (AST/SGOT) 18 Alanine Aminotransferase (ALT/SGPT) 12 L Alkaline Phosphatase 52 Total Protein 6.0 #L Albumin 2.2 #L Globulin 3.80 H Albumin/Globulin Ratio 0.57 Medications Medication Current Medications Dextrose/Sodium Chloride 1,000 ml @ 100 mls/hr Q10H IV Last administered on 11/01/18at 03:01; Admin Dose 100 MLS/HR; Start 10/31/18 at 00:45 IV Flush (NS 3 ml) 3 ml PER PROTOCOL IV ; Start 10/31/18 at 01:00 Ondansetron HCl (Zofran Inj) 4 mg Q6H PRN IV NAUSEA/VOMITING; Start 10/31/18 at 01:00 Ipratropium [place] (Atrovent 0.02% (Neb)) 0.5 mg Q2H RESP THERAPY PRN NEB SHORTNESS OF BREATH; Start 10/31/18 at 01:00 Levalbuterol (Xopenex Neb) 0.63 mg Q2H RESP THERAPY PRN HHN sob, wheezing; St art 10/31/18 at 01:00 Atorvastatin Calcium (Lipitor) 10 mg QHS PO Last administered on 10/31/18 21: 14; Admin Dose 10 MG; Start 10/31/18 at 21:00 Divalproex Sodium (Depakote) 500 mg BID PO Last administered on 10/31/18 21:15; Admin Dose 500 MG; Start 10/31/18 at 09:00 Donepezil HCl (Aricept) 5 mg QHS PO Last administered on 10/31/18 21:15; Admin Dose 5 MG; Start 10/31/18 at 21:00 Gabapentin (Neurontin) 400 mg TID PO Last administered on 10/31/18 21:15; Admin Dose 400 MG; Start 10/31/18 at 09:00 Levetiracetam (Keppra) 500 mg BID PO Last administered on 10/31/18 21:15; Admin Dose 500 MG; Start 10/31/18 at 09:00 Quetiapine Fumarate (Seroquel) 200 mg HS PO Last administered on 10/31/18 21:14; Admin Dose 200 MG; Start 10/31/18 at 21:00 Trazodone HCl (Desyrel) 100 mg QHS PO Last administered on 10/31/18 21:15; Admin Dose 100 MG; Start 10/31/18 at 21:00 Aztreonam 50 ml @ 100 mls/hr Q12H IVPB Last administered on 10/31/18 21:14; Admin Dose 100 MLS/HR; Start 10/31/18 at 09:00 Vancomycin HCl 100 ml @ 100 mls/hr Q12H IVPB Last administered on 11/01/18 00:35; Admin Dose 100 MLS/HR; Start 10/31/18 at 13:00 Metoprolol Tartrate (Lopressor) 25 mg BID PO Last administered on 10/31/18 21:15; Admin Dose 25 MG; Start 10/31/18 at 21:00 Amiodarone HCl (Cordarone) 200 mg BID PO Last administered on 10/31/18 21:16; Admin Dose 200 MG; Start 10/31/18 at 21:00 Enoxaparin Sodium (Lovenox) 40 mg DAILY SC ; Start 11/01/18 at 09:00 Diltiazem HCl (Cardizem Iv) 5 mg Q3 PRN IV HR>110 Hold SBP<100; Start 10/31/18 at 14:30 Miscellaneous Information (*Rx Drug Level Order Reminder*) VANCO TROUGH @ 1,200 ON... ONCE ONCE XX ; Start 11/01/18 at 12:00; Stop 11/01/18 at 12:01 Potassium Chloride (Klor-Con 20) 40 meq ONCE STAT PO ; Start 11/01/18 at 08:20; Stop 11/01/18 at 08:21; Status UNMANUEL STANTON Nov 01, 2018 08:22
[2018-11-01] MEDS: DIVALPROEX (EC) 500 MG TAB PO SCH ×2 (08:28→21:00)
[2018-11-01] MEDS: METOPROLOL 25 MG TAB PO SCH ×2 (08:28→22:11)
[2018-11-01] MEDS: LEVETIRACETAM 500 MG TAB PO SCH ×2 (08:28→22:07)
[2018-11-01] MEDS: GABAPENTIN 400 MG CAP PO SCH ×3 (08:28→22:08)
[2018-11-01] MEDS: AMIODARONE 200 MG TAB PO SCH ×2 (08:29→22:10)
[2018-11-01] MEDS: AZTREONAM 1 GM/NS (PMX) 50 ML IVPB SCH ×2 (08:34→22:07)
[2018-11-01] MEDS: ENOXAPARIN 40 MG/0.4 ML SYG SC SCH (08:42)
[2018-11-01] MEDS ORDERED: MAGNESIUM SULFATE 2 GM/50 ML 50 ML IVPB ONE (11:00)
--- NOTE | 2018-11-01 11:15 | PN ---
Date/Time of Note Date/Time of Note DATE: 11/01/18 TIME: 11:12 Assessment/Plan VTE Prophylaxis Risk score (from Ns)>0 risk: 8 SCD applied (from Ns): Yes Pharmacological prophylaxis: other Lines/Catheters IV Catheter Type (from Nrsg): [place] Urinary Cath still in place: Yes Reason Cath still needed: urinary retention Assessment/Plan Hospital Course S: Patient received Seroquel last night. Seen by cardiology and ID teams yesterday. No fevers overnight. O: VS -SEE BELOW PE: GENERAL: lying in bed, opens eyes HEENT: Moist mucous membranes, dried blood noted in the pharynx area NECK: Supple, no thyromegaly. LUNGS: Mechanical breath sounds equal bilaterally. CARDIOVASCULAR: S1, S2 heard. No rubs or gallops. ABDOMEN: Soft, nontender, nondistended. Normal bowel sounds. No rebound or guarding. MUSCULOSKELETAL: No lower extremity edema bilaterally. Assessment/Plan: 67-year-old female coming in with signs of septic shock, likely secondary to urinary tract infection and pneumonia, elevated troponins, acute renal insufficiency, initially intubated requiring pressor support, now extubated and out of ICU. Also presented with atrial fibrillation with rapid ventricular response, now in normal sinus rhythm. #Sepsis: Likely secondary to UTI, possible upper respiratory infection as well. -Continue treatment for E. coli UTI and bacteremia, follow-up ID recommendations -Follow final urine culture results, continue current antibiotics. # respiratory distress-on 3 L oxygen with good saturations. -Continue current broad-spectrum antibiotics, Tylenol p.r.n. pain and fevers, and follow-up ID recommendations -DuoNeb's as needed #Seizure disorder-again diagnosed on her last admission recently, morning of 10/08 had whole body twitching concerning for seizures; got Ativan then Versed. Again on 10/11 had a similar episode broken with Ativan-10/08/18 EEG appears to have localized lesion but CT head is negative. Repeat EEG from 10/15/18 results noted, neuro following. - Continue keppra, valproic acid, follow-up neurology recommendations - Holding versed, but continue Ativan as needed - Low-dose Seroquel as needed for agitation # NSTEMI - Unclear if this is true non-ST elevation myocardial infarction versus demand ischemia- s/p heparin gtt earlier. Was treated for this with Lovenox twice daily, but this was stopped a few days ago secondary to oral bleeding - Continue Lipitor. -Follow-up cardiology recommendations -continue medical management #A fib with RVR- again this occurred last night when the patient was re- admitted, presently on Cardizem drip. -Monitor heart rate for now, follow up cardiology recommendations -Continue Cardizem drip for now # Renal insufficiency -resolved -Monitor # Hypothyroidism - Continue current thyroid medicines. - Low TSH, normal fT4 consistent with sick euthyroid syndrome. # History of dementia. - Continue Aricept for now. - PEG placement 10/25-we will resume these feeds today # History of high cholesterol. - Cont statin #Anemia: Hemoglobin much lower today but no signs of any upper or lower GI bleeding. -We will repeat H&H, if still low will give PRBC transfusion # Gastrointestinal prophylaxis- H2 panda. # Deep venous thrombosis prophylaxis- SCDs Result Diagram: 11/01/18 0939 11/01/18 0518 Results 24hrs Laboratory Tests Test 10/31/18 17:12 11/01/18 00:22 11/01/18 05:18 11/01/18 09:39 Troponin I 0.013 0.017 White Blood Count 5.2 Red Blood Count 2.27 #L Hemoglobin 7.3 #L 8.0 L Hematocrit 22.7 #L 25.7 L Mean Corpuscular 100.0 Volume Mean Corpuscular 32.2 Hemoglobin Mean Corpuscular 32.2 Hemoglobin Concent Red Cell 16.8 H Distribution Width Platelet Count 131 #L Mean Platelet Volume 10.9 H Immature 2.700 H Granulocytes % Neutrophils % Segmented 13 L Neutrophils % (Manual) Band Neutrophils % 27 H (Manual) Lymphocytes % Lymphocytes % 54 H (Manual) Monocytes % Monocytes % (Manual) 5 Eosinophils % Eosinophils % 1 (Manual) Basophils % Nucleated Red Blood 0.0 Cells % Immature 0.140 H Granulocytes # Neutrophils # Neutrophils # 0.7 L (Manual) Band Neutrophils # 1.4 H Lymphocytes (Manual) 2.8 Lymphocytes # Monocytes # Monocytes # (Manual) 0.2 L Eosinophils # Basophils # Nucleated Red Blood Cells # Platelet Estimate DECREASED Polychromasia 2+ Poikilocytosis 1+ Anisocytosis 1+ Sodium Level 141 Potassium Level 3.0 L Chloride Level 114 H Carbon Dioxide Level 21 Anion Gap 6 Blood Urea Nitrogen 23 H Creatinine 0.86 Est Glomerular > 60 Filtrat Rate mL/min Glucose Level 123 Calcium Level 8.9 Magnesium Level 1.6 L Total Bilirubin 0.0 L Direct Bilirubin 0.00 Indirect Bilirubin 0.0 Aspartate Amino 18 Transf (AST/SGOT) Alanine 12 L Aminotransferase (AL T/SGPT) Alkaline Phosphatase 52 Total Protein 6.0 #L Albumin 2.2 #L Globulin 3.80 H Albumin/Globulin 0.57 Ratio Exam/Review of Systems Exam Vitals Vital Signs Date Temp Pulse Resp B/P (MAP) Pulse Ox O2 O2 Flow FiO2 Time Delivery Rate 11/01/18 75 16 95 Nasal 2.0 28 10:55 Cannula 11/01/18 98.2 107/64 07:45 (78) Intake and Output 10/31/18 10/31/18 11/01/18 1414:59 22:59 06:59 IntakeIntake Total 150 ml 1725 ml 2000 ml OutputOutput Total 750 ml 300 ml BalanceBalance 150 ml 975 ml 1700 ml Results Results 24hrs Laboratory Tests Test 10/31/18 17:12 11/01/18 00:22 11/01/18 05:18 11/01/18 09:39 Troponin I 0.013 0.017 White Blood Count 5.2 Red Blood Count 2.27 #L Hemoglobin 7.3 #L 8.0 L Hematocrit 22.7 #L 25.7 L Mean Corpuscular 100.0 Volume Mean Corpuscular 32.2 Hemoglobin Mean Corpuscular 32.2 Hemoglobin Concent Red Cell 16.8 H Distribution Width Platelet Count 131 #L Mean Platelet Volume 10.9 H Immature 2.700 H Granulocytes % Neutrophils % Segmented 13 L Neutrophils % (Manual) Band Neutrophils % 27 H (Manual) Lymphocytes % Lymphocytes % 54 H (Manual) Monocytes % Monocytes % (Manual) 5 Eosinophils % Eosinophils % 1 (Manual) Basophils % Nucleated Red Blood 0.0 Cells % Immature 0.140 H Granulocytes # Neutrophils # Neutrophils # 0.7 L (Manual) Band Neutrophils # 1.4 H Lymphocytes (Manual) 2.8 Lymphocytes # Monocytes # Monocytes # (Manual) 0.2 L Eosinophils # Basophils # Nucleated Red Blood Cells # Platelet Estimate DECREASED Polychromasia 2+ Poikilocytosis 1+ Anisocytosis 1+ Sodium Level 141 Potassium Level 3.0 L Chloride Level 114 H Carbon Dioxide Level 21 Anion Gap 6 Blood Urea Nitrogen 23 H Creatinine 0.86 Est Glomerular > 60 Filtrat Rate mL/min Glucose Level 123 Calcium Level 8.9 Magnesium Level 1.6 L Total Bilirubin 0.0 L Direct Bilirubin 0.00 Indirect Bilirubin 0.0 Aspartate Amino 18 Transf (AST/SGOT) Alanine 12 L Aminotransferase (AL T/SGPT) Alkaline Phosphatase 52 Total Protein 6.0 #L Albumin 2.2 #L Globulin 3.80 H Albumin/Globulin 0.57 Ratio Medications Medication Current Medications Dextrose/Sodium Chloride 1,000 ml @ 100 mls/hr Q10H IV Last administered on 11/01/18 03:01; Admin Dose 100 MLS/HR; Start 10/31/18 at 00:45 IV Flush (NS 3 ml) 3 ml PER PROTOCOL IV ; Start 10/31/18 at 01:00 Ondansetron HCl (Zofran Inj) 4 mg Q6H PRN IV NAUSEA/VOMITING; Start 10/31/18 at 01:00 Ipratropium [place] (Atrovent 0.02% (Neb)) 0.5 mg Q2H RESP THERAPY PRN NEB SHORTNESS OF BREATH Last administered on 11/01/18 10:53; Admin Dose 0.5 MG; Start 10/31/18 at 01:00 Levalbuterol (Xopenex Neb) 0.63 mg Q2H RESP THERAPY PRN HHN sob, wheezing Last administered on 11/01/18 10:53; Admin Dose 0.63 MG; Start 10/31/18 at 01:00 Atorvastatin Calcium (Lipitor) 10 mg QHS PO Last administered on 10/31/18 21:14; Admin Dose 10 MG; Start 10/31/18 at 21:00 Divalproex Sodium (Depakote) 500 mg BID PO Last administered on 11/01/18 08:28; Admin Dose 500 MG; Start 10/31/18 at 09:00 Donepezil HCl (Aricept) 5 mg QHS PO Last administered on 10/31/18 21:15; Admin Dose 5 MG; Start 10/31/18 at 21:00 Gabapentin (Neurontin) 400 mg TID PO Last administered on 11/01/18 08:28; Admin Dose 400 MG; Start 10/31/18 at 09:00 Levetiracetam (Keppra) 500 mg BID PO Last administered on 11/01/18 08:28; Admin Dose 500 MG; Start 10/31/18 at 09:00 Quetiapine Fumarate (Seroquel) 200 mg HS PO Last administered on 10/31/18 21:14; Admin Dose 200 MG; Start 10/31/18 at 21:00 Trazodone HCl (Desyrel) 100 mg QHS PO Last administered on 10/31/18 21:15; Admin Dose 100 MG; Start 10/31/18 at 21:00 Aztreonam 50 ml @ 100 mls/hr Q12H IVPB Last administered on 11/01/18 08:34; Admin Dose 100 MLS/HR; Start 10/31/18 at 09:00 Vancomycin HCl 100 ml @ 100 mls/hr Q12H IVPB Last administered on 11/01/18 00:35; Admin Dose 100 MLS/HR; Start 10/31/18 at 13:00 Metoprolol Tartrate (Lopressor) 25 mg BID PO Last administered on 11/01/18 08:28; Admin Dose 25 MG; Start 10/31/18 at 21:00 Amiodarone HCl (Cordarone) 200 mg BID PO Last administered on 11/01/18 08:29; Admin Dose 200 MG; Start 10/31/18 at 21:00 Enoxaparin Sodium (Lovenox) 40 mg DAILY SC Last administered on 11/01/18 08:42; Admin Dose 40 MG; Start 11/01/18 at 09:00 Diltiazem HCl (Cardizem Iv) 5 mg Q3 PRN IV HR>110 Hold SBP<100; Start 10/31/18 at 14:30 Miscellaneous Information (*Rx Drug Level Order Reminder*) VANCO TROUGH @ 1,200 ON... ONCE ONCE XX ; Start 11/01/18 at 12:00; Stop 11/01/18 at 12:01 Magnesium Sulfate 50 ml @ 25 mls/hr ONCE ONCE IVPB ; Start 11/01/18 at 11:00; Stop 11/01/18 at 12:59 MANUEL ALEMAN Nov 01, 2018 11:15
--- NOTE | 2018-11-01 12:34 | CONS ---
Assessment/Plan Assessment/Plan Hospital Course (Demo Recall) No events, looks comfortable Allergy: Penicillin, clindamycin Abx: Vanco Azactam Physical examination: Chronically ill-appearing debilitated elderly woman. The patient is in no distress. Head atraumatic normocephalic. Neck is supple. Chest rise symmetrical, breath sounds with crackles. Heart: S1-S2. Abdomen soft bowel sounds hypoactive. Extremities with dependent edema Assessment: 1. Sepsis, likely 2 to recurrent UTI==> + C. albicans 2. Poss aspiration event 3. SZ disorder 4. Dysphagia/secretions retention 4. S/p UMBERTO 5. Non-ST elevation OK 6. Atrial fibrillation 7. Encephalopathy Plan: add antifungal coverage, continue abx, f/u cxr, aspiration precautions Consultation Date/Type/Reason Admit Date/Time Oct 30, 2018 at 22:59 Initial Consult Date Type of Consult id Date/Time of Note DATE: 11/01/18 TIME: 12:31 Exam/Review of Systems Exam Vitals Vital Signs Date Temp Pulse Resp B/P (MAP) Pulse Ox O2 O2 Flow FiO2 Time Delivery Rate 11/01/18 Nasal 2.0 12:29 Cannula 11/01/18 75 12:10 11/01/18 98.7 17 106/62 90 11:51 (77) 11/01/18 28 10:55 Intake and Output 10/31/18 10/31/18 11/01/18 1515:00 23:00 07:00 IntakeIntake Total 150 ml 1725 ml 2000 ml OutputOutput Total 750 ml 300 ml BalanceBalance 150 ml 975 ml 1700 ml Results Result Diagram: 11/01/18 0939 11/01/18 0518 Results 24hrs Laboratory Tests Test 10/31/18 17:12 11/01/18 00:22 11/01/18 05:18 11/01/18 09:39 Troponin I 0.013 0.017 White Blood Count 5.2 Red Blood Count 2.27 #L Hemoglobin 7.3 #L 8.0 L Hematocrit 22.7 #L 25.7 L Mean Corpuscular 100.0 Volume Mean Corpuscular 32.2 Hemoglobin Mean Corpuscular 32.2 Hemoglobin Concent Red Cell 16.8 H Distribution Width Platelet Count 131 #L Mean Platelet Volume 10.9 H Immature 2.700 H Granulocytes % Neutrophils % Segmented 13 L Neutrophils % (Manual) Band Neutrophils % 27 H (Manual) Lymphocytes % Lymphocytes % 54 H (Manual) Monocytes % Monocytes % (Manual) 5 Eosinophils % Eosinophils % 1 (Manual) Basophils % Nucleated Red Blood 0.0 Cells % Immature 0.140 H Granulocytes # Neutrophils # Neutrophils # 0.7 L (Manual) Band Neutrophils # 1.4 H Lymphocytes (Manual) 2.8 Lymphocytes # Monocytes # Monocytes # (Manual) 0.2 L Eosinophils # Basophils # Nucleated Red Blood Cells # Platelet Estimate DECREASED Polychromasia 2+ Poikilocytosis 1+ Anisocytosis 1+ Sodium Level 141 Potassium Level 3.0 L Chloride Level 114 H Carbon Dioxide Level 21 Anion Gap 6 Blood Urea Nitrogen 23 H Creatinine 0.86 Est Glomerular > 60 Filtrat Rate mL/min Glucose Level 123 Calcium Level 8.9 Magnesium Level 1.6 L Total Bilirubin 0.0 L Direct Bilirubin 0.00 Indirect Bilirubin 0.0 Aspartate Amino 18 Transf (AST/SGOT) Alanine 12 L Aminotransferase (AL T/SGPT) Alkaline Phosphatase 52 Total Protein 6.0 #L Albumin 2.2 #L Globulin 3.80 H Albumin/Globulin 0.57 Ratio Medications Medication Current Medications Dextrose/Sodium Chloride 1,000 ml @ 100 mls/hr Q10H IV Last administered on 11/01/18 12:03; Admin Dose 100 MLS/HR; Start 10/31/18 at 00:45 IV Flush (NS 3 ml) 3 ml PER PROTOCOL IV ; Start 10/31/18 at 01:00 Ondansetron HCl (Zofran Inj) 4 mg Q6H PRN IV NAUSEA/VOMITING; Start 10/31/18 at 01:00 Ipratropium [place] (Atrovent 0.02% (Neb)) 0.5 mg Q2H RESP THERAPY PRN NEB SHORTNESS OF BREATH Last administered on 11/01/18 10:53; Admin Dose 0.5 MG; Start 10/31/18 at 01:00 Levalbuterol (Xopenex Neb) 0.63 mg Q2H RESP THERAPY PRN HHN sob, wheezing Last administered on 11/01/18 10:53; Admin Dose 0.63 MG; Start 10/31/18 at 01:00 Atorvastatin Calcium (Lipitor) 10 mg QHS PO Last administered on 10/31/18at 21:14; Admin Dose 10 MG; Start 10/31/18 at 21:00 Divalproex Sodium (Depakote) 500 mg BID PO Last administered on 11/01/18 08:28; Admin Dose 500 MG; Start 10/31/18 at 09:00 Donepezil HCl (Aricept) 5 mg QHS PO Last administered on 10/31/18 21:15; Admin Dose 5 MG; Start 10/31/18 at 21:00 Gabapentin (Neurontin) 400 mg TID PO Last administered on 11/01/18 12:03; Admin Dose 400 MG; Start 10/31/18 at 09:00 Levetiracetam (Keppra) 500 mg BID PO Last administered on 11/01/18 08:28; Admin Dose 500 MG; Start 10/31/18 at 09:00 Quetiapine Fumarate (Seroquel) 200 mg HS PO Last administered on 10/31/18 21:14; Admin Dose 200 MG; Start 10/31/18 at 21:00 Trazodone HCl (Desyrel) 100 mg QHS PO Last administered on 10/31/18 21:15; Admin Dose 100 MG; Start 10/31/18 at 21:00 Aztreonam 50 ml @ 100 mls/hr Q12H IVPB Last administered on 11/01/18 08:34; Admin Dose 100 MLS/HR; Start 10/31/18 at 09:00 Vancomycin HCl 100 ml @ 100 mls/hr Q12H IVPB Last administered on 11/01/18 00:35; Admin Dose 100 MLS/HR; Start 10/31/18 at 13:00 Metoprolol Tartrate (Lopressor) 25 mg BID PO Last administered on 11/01/18 08:28; Admin Dose 25 MG; Start 10/31/18 at 21:00 Amiodarone HCl (Cordarone) 200 mg BID PO Last administered on 11/01/18 08:29; Admin Dose 200 MG; Start 10/31/18 at 21:00 Enoxaparin Sodium (Lovenox) 40 mg DAILY SC Last administered on 11/01/18 08:42; Admin Dose 40 MG; Start 11/01/18 at 09:00 Diltiazem HCl (Cardizem Iv) 5 mg Q3 PRN IV HR>110 Hold SBP<100; Start 10/31/18 at 14:30 Magnesium Sulfate 50 ml @ 25 mls/hr ONCE ONCE IVPB Last administered on 11/01/18at 12:02; Admin Dose 25 MLS/HR; Start 11/01/18 at 11:00; Stop 11/01/18 at 12:59 MARKOS BRADY NP Nov 01, 2018 12:34
--- NOTE | 2018-11-01 13:28 | CONS ---
Assessment/Plan Assessment/Plan Hospital Course (Demo Recall) IMPRESSION: 1. Paroxysmal atrial fibrillation with rapid ventricular response with patient previously being on Lovenox and then developed bleeding on that and therefore was discontinued due to bleeding. The patient was initially placed on aspirin, which can be continued. 2. Abnormal electrocardiogram with nonspecific ST-T wave abnormalities, assess for acute coronary syndrome. 3. History of recent [id number] myocardial infarction. 4. Fevers. 5. Urinary tract infection. 6. Dyslipidemia. 7. Seizure disorder. 8. Hypothyroidism. 9. Encephalopathy. 10. Anemia requiring transfusions previously. Recc: -Tele -Continue BB -Continue amio in attempt to maintain SR -Continue statin -Contineu antifungals -Contineu lovenox =start asa and follow for bleeding complications Consultation Date/Type/Reason Admit Date/Time Oct 30, 2018 at 22:59 Initial Consult Date 10/31/18 Type of Consult Cardiology Reason for Consultation AF Requesting Provider: MICHELLE YBARRA PA-C Date/Time of Note DATE: 11/01/18 TIME: 13:16 Exam/Review of Systems Vital Signs Vitals Vital Signs Date Temp Pulse Resp B/P (MAP) Pulse Ox O2 O2 Flow FiO2 Time Delivery Rate 11/01/18 Nasal 2.0 13:05 Cannula 11/01/18 75 12:10 11/01/18 98.7 17 106/62 90 11:51 (77) 11/01/18 28 10:55 Intake and Output 10/31/18 10/31/18 11/01/18 1515:00 23:00 07:00 IntakeIntake Total 150 ml 1725 ml 2000 ml OutputOutput Total 750 ml 300 ml BalanceBalance 150 ml 975 ml 1700 ml Exam Exam Review of Systems: CONSTITUTIONAL: No fevers, chills. PULMONARY: No sob CARDIOVASCULAR: No chest pain/palpitations GASTROINTESTINAL: No nausea/vomiting. GENITOURINARY: No hematuria/dysuria. MUSCULOSKELETAL: No myagias/arthalgias. PSYCHIATRIC: The patient denies depression. NEUROLOGIC: encephalopathic Constitutional: other (encephalopathic) Head: normocephalic ENMT: mucosa pink and moist Neck: supple, jvd (9 cm water) Respiratory: diminished breath sounds (at bases/B) Cardiovascular: regular rate and rhythm Gastrointestinal: soft, non-tender Musculoskeletal: muscle weakness (generalized) Extremities: edema (none) Neurological: confused Labs Result Diagram: 11/01/18 0939 11/01/18 0518 Results 24hrs Laboratory Tests Test 10/31/18 17:12 11/01/18 00:22 11/01/18 05:18 11/01/18 09:39 Troponin I 0.013 0.017 White Blood Count 5.2 Red Blood Count 2.27 #L Hemoglobin 7.3 #L 8.0 L Hematocrit 22.7 #L 25.7 L Mean Corpuscular 100.0 Volume Mean Corpuscular 32.2 Hemoglobin Mean Corpuscular 32.2 Hemoglobin Concent Red Cell 16.8 H Distribution Width Platelet Count 131 #L Mean Platelet Volume 10.9 H Immature 2.700 H Granulocytes % Neutrophils % Segmented 13 L Neutrophils % (Manual) Band Neutrophils % 27 H (Manual) Lymphocytes % Lymphocytes % 54 H (Manual) Monocytes % Monocytes % (Manual) 5 Eosinophils % Eosinophils % 1 (Manual) Basophils % Nucleated Red Blood 0.0 Cells % Immature 0.140 H Granulocytes # Neutrophils # Neutrophils # 0.7 L (Manual) Band Neutrophils # 1.4 H Lymphocytes (Manual) 2.8 Lymphocytes # Monocytes # Monocytes # (Manual) 0.2 L Eosinophils # Basophils # Nucleated Red Blood Cells # Platelet Estimate DECREASED Polychromasia 2+ Poikilocytosis 1+ Anisocytosis 1+ Sodium Level 141 Potassium Level 3.0 L Chloride Level 114 H Carbon Dioxide Level 21 Anion Gap 6 Blood Urea Nitrogen 23 H Creatinine 0.86 Est Glomerular > 60 Filtrat Rate mL/min Glucose Level 123 Calcium Level 8.9 Magnesium Level 1.6 L Total Bilirubin 0.0 L Direct Bilirubin 0.00 Indirect Bilirubin 0.0 Aspartate Amino 18 Transf (AST/SGOT) Alanine 12 L Aminotransferase (AL T/SGPT) Alkaline Phosphatase 52 Total Protein 6.0 #L Albumin 2.2 #L Globulin 3.80 H Albumin/Globulin 0.57 Ratio Test 11/01/18 11:55 Vancomycin Level 9.1 L Trough Medications Medications Current Medications Dextrose/Sodium Chloride 1,000 ml @ 100 mls/hr Q10H IV Last administered on 11/01/18at 12:03; Admin Dose 100 MLS/HR; Start 10/31/18 at 00:45 IV Flush (NS 3 ml) 3 ml PER PROTOCOL IV ; Start 10/31/18 at 01:00 Ondansetron HCl (Zofran Inj) 4 mg Q6H PRN IV NAUSEA/VOMITING; Start 10/31/18 at 01:00 Ipratropium [place] (Atrovent 0.02% (Neb)) 0.5 mg Q2H RESP THERAPY PRN NEB SHORTNESS OF BREATH Last administered on 11/01/18 10:53; Admin Dose 0.5 MG; Start 10/31/18 at 01:00 Levalbuterol (Xopenex Neb) 0.63 mg Q2H RESP THERAPY PRN HHN sob, wheezing Last administered on 11/01/18 10:53; Admin Dose 0.63 MG; Start 10/31/18 at 01:00 Atorvastatin Calcium (Lipitor) 10 mg QHS PO Last administered on 10/31/18 21:14; Admin Dose 10 MG; Start 10/31/18 at 21:00 Divalproex Sodium (Depakote) 500 mg BID PO Last administered on 11/01/18 08:28; Admin Dose 500 MG; Start 10/31/18 at 09:00 Donepezil HCl (Aricept) 5 mg QHS PO Last administered on 10/31/18 21:15; Admin Dose 5 MG; Start 10/31/18 at 21:00 Gabapentin (Neurontin) 400 mg TID PO Last administered on 11/01/18 12:03; Admin Dose 400 MG; Start 10/31/18 at 09:00 Levetiracetam (Keppra) 500 mg BID PO Last administered on 11/01/18 08:28; Admin Dose 500 MG; Start 10/31/18 at 09:00 Quetiapine Fumarate (Seroquel) 200 mg HS PO Last administered on 10/31/18 21:14; Admin Dose 200 MG; Start 10/31/18 at 21:00 Trazodone HCl (Desyrel) 100 mg QHS PO Last administered on 10/31/18 21:15; Admin Dose 100 MG; Start 10/31/18 at 21:00 Aztreonam 50 ml @ 100 mls/hr Q12H IVPB Last administered on 11/01/18 08:34; Admin Dose 100 MLS/HR; Start 10/31/18 at 09:00 Vancomycin HCl 100 ml @ 100 mls/hr Q12H IVPB Last administered on 11/01/18at 00:35; Admin Dose 100 MLS/HR; Start 10/31/18 at 13:00 Metoprolol Tartrate (Lopressor) 25 mg BID PO Last administered on 11/01/18at 08 :28; Admin Dose 25 MG; Start 10/31/18 at 21:00 Amiodarone HCl (Cordarone) 200 mg BID PO Last administered on 11/01/18at 08:29; Admin Dose 200 MG; Start 10/31/18 at 21:00 Enoxaparin Sodium (Lovenox) 40 mg DAILY SC Last administered on 11/01/18at 08:42; Admin Dose 40 MG; Start 11/01/18 at 09:00 Diltiazem HCl (Cardizem Iv) 5 mg Q3 PRN IV HR>110 Hold SBP<100; Start 10/31/18 at 14:30 Caspofungin 70 mg/ Sodium Chloride 250 ml @ 250 mls/hr ONCE ONCE IVPB ; Start 11/01/18 at 14:00; Stop 11/01/18 at 14:59 Caspofungin 50 mg/ Sodium Chloride 250 ml @ 250 mls/hr Q24H IVPB ; Start 11/02/18 at 14:00 ANGELA CARY Nov 01, 2018 13:26
[2018-11-01] MEDS ORDERED: CASPOFUNGIN 70 MG in SOD CHLORIDE 0.9% 250 ML IVPB ONE (14:00)
[2018-11-01] MEDS: ATORVASTATIN 10 MG TAB PO SCH (22:07)
[2018-11-01] MEDS: QUETIAPINE 100 MG TAB PO SCH (22:08)
[2018-11-01] MEDS: DONEPEZIL 5 MG TAB PO SCH (22:08)
[2018-11-01] MEDS: traZODone 100 MG TAB PO SCH (22:10)
[2018-11-02] VITALS (9 sets, daily range): BP systolic 98–117; BP diastolic 54–65; PULSE 71–127; RESP 18–20
[2018-11-02] MEDS: DEXTROSE 5%-0.45% NACL 1,000 ML IV SCH ×4 (01:18→22:36)
[2018-11-02] MEDS: VANCOMYCIN 750 MG (PMX) 250 ML IVPB SCH ×2 (01:18→12:02)
[2018-11-02] MEDS: LEVETIRACETAM 500 MG TAB PO SCH ×2 (08:31→20:54)
[2018-11-02] MEDS: AZTREONAM 1 GM/NS (PMX) 50 ML IVPB SCH ×2 (08:31→20:55)
[2018-11-02] MEDS: DIVALPROEX (EC) 500 MG TAB PO SCH ×2 (08:31→20:55)
[2018-11-02] MEDS: GABAPENTIN 400 MG CAP PO SCH ×3 (08:31→20:54)
[2018-11-02] MEDS: AMIODARONE 200 MG TAB PO SCH ×2 (08:32→20:54)
[2018-11-02] MEDS: METOPROLOL 25 MG TAB PO SCH ×2 (08:32→20:55)
[2018-11-02] MEDS: ENOXAPARIN 40 MG/0.4 ML SYG SC SCH (08:44)
--- NOTE | 2018-11-02 11:20 | CONS ---
Assessment/Plan Assessment/Plan Hospital Course (Demo Recall) ID PROGRESS NOTE CURRENT ABX: DAY # Vanco IV #3 + Azactam #3 + Cancidas #2 11/02/18 0448 11/02/18 0448 24H INTERVAL SUMMARY * No fevers, VSS, Encephalopathic -- moaning and shaking -- intermittent agitation. * UTI => (+)YEAST started on Cancidas #1 * Extubated 10/18/18 am -- O2 via [facility]AG[facility] * 11/01/18 CXR: Mildly increased bibasilar atelectasis or congestive change. MICRO/OTHER * 10/30/18 URINE CX (+) yeast URINE CULTURE Final Organism 1 CLAU ALBICANS COLONY COUNT >100,000 CFU/ml * 10/30/18 (-)MRSA * 10/30/18 BCx (-) * 10/08/2018 Resp. Cx (-) * 10/08/2018 BCx (-) * 10/06/2018 BCx (+)GNR = E.coli * 10/06/2018 Urine Cx (+)GNR = E.coli PHYSICAL EXAMINATION: GENERAL: VSS HEENT: AT, NC, anicteric NECK: Supple, CHEST: Equal chest rise bilaterally, without dyspnea on observation HEART: Pulse RRR ABDOMEN: Soft / NT EXTREMITIES: Warm, dry SKIN: No rash, no diaphoresis ID ASSESSMENT 67 yo F admit with: 1. Sepsis, likely 2 to recurrent UTI==> + C. albicans => RESOLVING * S/P FEVERS = resolved 2. Poss aspiration event 3. SZ disorder 4. Dysphagia/secretions retention 4. S/p UMBERTO 5. Non-ST elevation [place] 6. Atrial fibrillation 7. Encephalopathy ABX ALLERGIES: PCN/SULFA/CLINDA INVASIVES: PIV CURRENT ABX: DAY # Vanco IV #3 + Azactam #3 + Cancidas #2 ID RECOMMENDATIONS/PLAN: 1. Continue current ABX over the weekend -- re-evaluate SUNDAY for possible DC ABX . Consultation Date/Type/Reason Admit Date/Time Oct 30, 2018 at 22:59 Initial Consult Date Requesting Provider: MICHELLE YBARRA PA-C Date/Time of Note DATE: 11/02/18 TIME: 11:19 Exam/Review of Systems Exam Vitals Vital Signs Date Temp Pulse Resp B/P (MAP) Pulse Ox O2 O2 Flow FiO2 Time Delivery Rate 11/02/18 97.9 89 20 111/55 96 Nasal 11:03 (73) Cannula 11/02/18 2.0 08:03 11/01/18 28 10:55 Intake and Output 11/01/18 11/01/18 11/02/18 1515:00 23:00 07:00 IntakeIntake Total 450 ml 1910 ml 2010 ml OutputOutput Total 500 ml 1800 ml BalanceBalance 450 ml 1410 ml 210 ml Results Result Diagram: 11/02/18 0448 11/02/18 0448 Results 24hrs Laboratory Tests Test 11/01/18 11:55 11/01/18 14:56 11/02/18 04:48 Vancomycin Level Trough 9.1 L Hemoglobin 8.7 L 8.7 L Hematocrit 27.6 L 27.6 L White Blood Count 5.0 Red Blood Count 2.79 #L Mean Corpuscular Volume 98.9 Mean Corpuscular Hemoglobin 31.2 Mean Corpuscular Hemoglobin Concent 31.5 L Red Cell Distribution Width 16.8 H Platelet Count 158 # Mean Platelet Volume 11.2 H Immature Granulocytes % 4.800 H Neutrophils % Segmented Neutrophils % (Manual) 45 Band Neutrophils % (Manual) 10 H Lymphocytes % Lymphocytes % (Manual) 27 Reactive Lymphocytes % (Manual) 5 H Monocytes % Monocytes % (Manual) 6 Eosinophils % Eosinophils % (Manual) 4 Basophils % Metamyelocytes % (manual) 1 H Myelocytes % (Manual) 2 H Nucleated Red Blood Cells % 0.0 Immature Granulocytes # 0.240 H Neutrophils # Neutrophils # (Manual) 2.3 Band Neutrophils # 0.5 Lymphocytes (Manual) 1.3 Lymphocytes # Reactive Lymphocytes # 0.2 H Monocytes # Monocytes # (Manual) 0.3 Eosinophils # Basophils # Metamyelocytes # 0.0 Myelocytes # 0.1 H Nucleated Red Blood Cells # Platelet Estimate NORMAL Polychromasia 3+ Poikilocytosis 1+ Anisocytosis 1+ Tear Drop Cells 1+ Sodium Level 141 Potassium Level 3.2 L Chloride Level 114 H Carbon Dioxide Level 23 Anion Gap 4 L Blood Urea Nitrogen 19 Creatinine 0.71 Est Glomerular Filtrat Rate mL/min > 60 Glucose Level 108 Calcium Level 8.7 Medications Medication Current Medications Dextrose/Sodium Chloride 1,000 ml @ 100 mls/hr Q10H IV Last administered on 11/02/18 01:18; Admin Dose 100 MLS/HR; Start 10/31/18 at 00:45 IV Flush (NS 3 ml) 3 ml PER PROTOCOL IV ; Start 10/31/18 at 01:00 Ondansetron HCl (Zofran Inj) 4 mg Q6H PRN IV NAUSEA/VOMITING; Start 10/31/18 at 01:00 Ipratropium [place] (Atrovent 0.02% (Neb)) 0.5 mg Q2H RESP THERAPY PRN NEB SHORTNESS OF BREATH Last administered on 11/01/18 10:53; Admin Dose 0.5 MG; Start 10/31/18 at 01:00 Levalbuterol (Xopenex Neb) 0.63 mg Q2H RESP THERAPY PRN HHN sob, wheezing Last administered on 11/01/18 10:53; Admin Dose 0.63 MG; Start 10/31/18 at 01:00 Atorvastatin Calcium (Lipitor) 10 mg QHS PO Last administered on 11/01/18 22:07; Admin Dose 10 MG; Start 10/31/18 at 21:00 Divalproex Sodium (Depakote) 500 mg BID PO Last administered on 11/02/18 08:31; Admin Dose 500 MG; Start 10/31/18 at 09:00 Donepezil HCl (Aricept) 5 mg QHS PO Last administered on 11/01/18 22:08; Admin Dose 5 MG; Start 10/31/18 at 21:00 Gabapentin (Neurontin) 400 mg TID PO Last administered on 11/02/18 08:31; Admin Dose 400 MG; Start 10/31/18 at 09:00 Levetiracetam (Keppra) 500 mg BID PO Last administered on 11/02/18 08:31; Admin Dose 500 MG; Start 10/31/18 at 09:00 Quetiapine Fumarate (Seroquel) 200 mg HS PO Last administered on 11/01/18 22:08; Admin Dose 200 MG; Start 10/31/18 at 21:00 Trazodone HCl (Desyrel) 100 mg QHS PO Last administered on 3/29/19at 22:10; Admin Dose 100 MG; Start 10/31/18 at 21:00 Aztreonam 50 ml @ 100 mls/hr Q12H IVPB Last administered on 11/02/18 08:31; Admin Dose 100 MLS/HR; Start 10/31/18 at 09:00 Metoprolol Tartrate (Lopressor) 25 mg BID PO Last administered on 11/02/18 08:32; Admin Dose 25 MG; Start 10/31/18 at 21:00 Amiodarone HCl (Cordarone) 200 mg BID PO Last administered on 11/02/18 08:32; Admin Dose 200 MG; Start 10/31/18 at 21:00 Enoxaparin Sodium (Lovenox) 40 mg DAILY SC Last administered on 11/02/18 08:44; Admin Dose 40 MG; Start 11/01/18 at 09:00 Diltiazem HCl (Cardizem Iv) 5 mg Q3 PRN IV HR>110 Hold SBP<100; Start 10/31/18 at 14:30 Caspofungin 50 mg/ Sodium Chloride 250 ml @ 250 mls/hr Q24H IVPB ; Start 11/02/18 at 14:00 Vancomycin/Sodium Chloride 250 ml @ 125 mls/hr Q12H IVPB Last administered on 11/02/18 01:18; Admin Dose 125 MLS/HR; Start 11/02/18 at 01:00 Potassium Chloride (Potassium Chloride Pwd/Soln) 40 meq ONCE ONCE GTB Last administered on 11/02/18at 11:16; Admin Dose 40 MEQ; Start 11/02/18 at 11:30; Stop 11/02/18 at 11:31 ROLF GONZALEZ NP Nov 02, 2018 11:20
[2018-11-02] MEDS ORDERED: POTASSIUM CHLORIDE 20 MEQ POWDER FOR ORAL SOLN GTB ONE ×2 (11:30→16:00)
--- NOTE | 2018-11-02 11:36 | CONS ---
Consult Date/Type/Reason Admit Date/Time Oct 30, 2018 at 22:59 Initial Consult Date Requesting Provider: MICHELLE YBARRA PA-C Date/Time of Note DATE: 11/02/18 TIME: 11:34 Subjective NO acute events - pt comfortable - converted to sinus again. ROS: No fever, no chills, no nausea, no vomiting, no diarrhea/constipation No recent weight changes No chest pain, no PND, no orthopnea - decreased agitation per nurse No dizziness, blurred vision No thirst, no heat or cold intolerance Objective Vitals Vital Signs Date Temp Pulse Resp B/P (MAP) Pulse Ox O2 O2 Flow FiO2 Time Delivery Rate 11/02/18 97.9 89 20 111/55 96 Nasal 11:03 (73) Cannula 11/02/18 2.0 08:03 11/01/18 28 10:55 Intake and Output 11/01/18 11/01/18 11/02/18 1515:00 23:00 07:00 IntakeIntake Total 450 ml 1910 ml 2010 ml OutputOutput Total 500 ml 1800 ml BalanceBalance 450 ml 1410 ml 210 ml Results/Medications Result Diagram: 11/02/18 0448 11/02/18 0448 Results 24 hrs Laboratory Tests Test 11/01/18 11:55 11/01/18 14:56 11/02/18 04:48 Vancomycin Level Trough 9.1 L Hemoglobin 8.7 L 8.7 L Hematocrit 27.6 L 27.6 L White Blood Count 5.0 Red Blood Count 2.79 #L Mean Corpuscular Volume 98.9 Mean Corpuscular Hemoglobin 31.2 Mean Corpuscular Hemoglobin Concent 31.5 L Red Cell Distribution Width 16.8 H Platelet Count 158 # Mean Platelet Volume 11.2 H Immature Granulocytes % 4.800 H Neutrophils % Segmented Neutrophils % (Manual) 45 Band Neutrophils % (Manual) 10 H Lymphocytes % Lymphocytes % (Manual) 27 Reactive Lymphocytes % (Manual) 5 H Monocytes % Monocytes % (Manual) 6 Eosinophils % Eosinophils % (Manual) 4 Basophils % Metamyelocytes % (manual) 1 H Myelocytes % (Manual) 2 H Nucleated Red Blood Cells % 0.0 Immature Granulocytes # 0.240 H Neutrophils # Neutrophils # (Manual) 2.3 Band Neutrophils # 0.5 Lymphocytes (Manual) 1.3 Lymphocytes # Reactive Lymphocytes # 0.2 H Monocytes # Monocytes # (Manual) 0.3 Eosinophils # Basophils # Metamyelocytes # 0.0 Myelocytes # 0.1 H Nucleated Red Blood Cells # Platelet Estimate NORMAL Polychromasia 3+ Poikilocytosis 1+ Anisocytosis 1+ Tear Drop Cells 1+ Sodium Level 141 Potassium Level 3.2 L Chloride Level 114 H Carbon Dioxide Level 23 Anion Gap 4 L Blood Urea Nitrogen 19 Creatinine 0.71 Est Glomerular Filtrat Rate mL/min > 60 Glucose Level 108 Calcium Level 8.7 Home Meds Active Scripts Vancomycin Hcl (Vancocin) 1 Gm Soln, 500 MG IV Q12 for 7 Days, VIAL Prov:MILTON NUGENTBRAN Chaudhry. [employer] 08/31/18 Aztreonam (AZTREONAM) 1 Gm Vial, 1 GM IV* Q12 for 7 Days, VIAL 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 [employer] 08/31/18 Reported Medications Donepezil* (Donepezil*) 5 Mg Tablet, 5 MG PO QHS, #30 TAB 08/28/18 Divalproex Sodium* (Depakote*) 500 Mg Tablet.dr, 500 MG PO BID, #120 TAB 08/28/18 Docusate Sodium* (Colace*) 100 Mg Capsule, 100 MG PO BID PRN for CONSTIPATION, #60 CAP 08/28/18 Atorvastatin Calcium (Atorvastatin Calcium) 10 Mg Tablet, 10 MG PO QHS, #30 TAB 08/28/18 Lorazepam* (Lorazepam*) 1 Mg Tablet, 1 MG PO BID PRN for ANXIETY, #30 TAB 08/28/18 Lactulose* (Lactulose*) 20 Gm/30 Ml Solution, 20 GM PO TID PRN for CONSTIPATION, ML 08/28/18 Trazodone Hcl* (Trazodone Hcl*) 100 Mg Tablet, 100 MG PO QHS, #30 TAB 08/28/18 Quetiapine Fumarate* (Seroquel*) 200 Mg Tablet, 200 MG PO HS, #30 TAB 08/28/18 Sennosides* (Senna Lax*) 8.6 Mg Tablet, 2 TAB PO QHS PRN for CONSTIPATION, TAB 08/28/18 Multivitamins* (Theragran*) 1 Tab Tab, 1 TAB PO DAILY, TAB 08/28/18 Polyethylene Glycol* (Miralax*) 17 Gm Powd.pack, 17 GM PO BID, #60 PACKET 1/23/19 Metoprolol Tartrate* (Lopressor*) 25 Mg Tab, 12.5 MG PO DAILY, #60 TAB HOLD IF SBP<115 OR HR<60 08/28/18 Levetiracetam* (Keppra*) 500 Mg Tablet, 500 MG PO BID, TAB 08/28/18 Gabapentin* (Gabapentin*) 400 Mg Capsule, 400 MG PO TID, #90 CAP 08/28/18 Phenylephrine HCl/[place] Butter* (Preparation H* Suppository) 1 Each Supp.rect, 1 EACH [place] DAILY PRN for CONSTIPATION, SUPP.RECT 08/28/18 Mineral Oil* (Fleet* Mineral Oil Enema) 133 Ml Oil, 133 ML [place] DAILY PRN for CONSTIPATION, ENEMA 08/28/18 Acetaminophen* (Acetaminophen*) 650 Mg Tablet, 650 MG PO DAILY PRN for PAIN AND OR ELEVATED TEMP, #30 TAB 08/28/18 Bisacodyl* (Bisacodyl*) 5 Mg Tablet.dr, 10 MG PO DAILY PRN for CONSTIPATION, TAB 08/28/18 Discontinued Reported Medications Levothyroxine Sodium* (Levothyroxine Sodium*) 50 Mcg Tablet, 50 MCG PO BEFORE BREAKFAST, #30 TAB 08/28/18 Medications Current Medications Dextrose/Sodium Chloride 1,000 ml @ 100 mls/hr Q10H IV Last administered on 11/02/18at 01:18; Admin Dose 100 MLS/HR; Start 10/31/18 at 00:45 IV Flush (NS 3 ml) 3 ml PER PROTOCOL IV ; Start 10/31/18 at 01:00 Ondansetron HCl (Zofran Inj) 4 mg Q6H PRN IV NAUSEA/VOMITING; Start 10/31/18 at 01:00 Ipratropium [place] (Atrovent 0.02% (Neb)) 0.5 mg Q2H RESP THERAPY PRN NEB SHORTNESS OF BREATH Last administered on 11/01/18at 10:53; Admin Dose 0.5 MG; Start 10/31/18 at 01:00 Levalbuterol (Xopenex Neb) 0.63 mg Q2H RESP THERAPY PRN HHN sob, wheezing Last administered on 11/01/18at 10:53; Admin Dose 0.63 MG; Start 10/31/18 at 01:00 Atorvastatin Calcium (Lipitor) 10 mg QHS PO Last administered on 11/01/18 22:07; Admin Dose 10 MG; Start 10/31/18 at 21:00 Divalproex Sodium (Depakote) 500 mg BID PO Last administered on 11/02/18 08:31; Admin Dose 500 MG; Start 10/31/18 at 09:00 Donepezil HCl (Aricept) 5 mg QHS PO Last administered on 11/01/18 22:08; Admin Dose 5 MG; Start 10/31/18 at 21:00 Gabapentin (Neurontin) 400 mg TID PO Last administered on 11/02/18 08:31; Admin Dose 400 MG; Start 10/31/18 at 09:00 Levetiracetam (Keppra) 500 mg BID PO Last administered on 11/02/18 08:31; Admin Dose 500 MG; Start 10/31/18 at 09:00 Quetiapine Fumarate (Seroquel) 200 mg HS PO Last administered on 11/01/18 22:08; Admin Dose 200 MG; Start 10/31/18 at 21:00 Trazodone HCl (Desyrel) 100 mg QHS PO Last administered on 11/01/18 22:10; Admin Dose 100 MG; Start 10/31/18 at 21:00 Aztreonam 50 ml @ 100 mls/hr Q12H IVPB Last administered on 11/02/18 08:31; Admin Dose 100 MLS/HR; Start 10/31/18 at 09:00 Metoprolol Tartrate (Lopressor) 25 mg BID PO Last administered on 11/02/18 08:32; Admin Dose 25 MG; Start 10/31/18 at 21:00 Amiodarone HCl (Cordarone) 200 mg BID PO Last administered on 11/02/18 08:32; Admin Dose 200 MG; Start 10/31/18 at 21:00 Enoxaparin Sodium (Lovenox) 40 mg DAILY SC Last administered on 11/02/18 08:44; Admin Dose 40 MG; Start 11/01/18 at 09:00 Diltiazem HCl (Cardizem Iv) 5 mg Q3 PRN IV HR>110 Hold SBP<100; Start 10/31/18 at 14:30 Caspofungin 50 mg/ Sodium Chloride 250 ml @ 250 mls/hr Q24H IVPB ; Start 11/02/18 at 14:00 Vancomycin/Sodium Chloride 250 ml @ 125 mls/hr Q12H IVPB Last administered on 11/02/18at 01:18; Admin Dose 125 MLS/HR; Start 11/02/18 at 01:00 Assessment/Plan Hospital Course (Demo Recall) 1. Paroxysmal atrial fibrillation with rapid ventricular response with patient previously being on Lovenox and then developed bleeding on that and therefore was discontinued due to bleeding. The patient was initially placed on aspirin, which can be continued. Converted to sinus now. 2. Abnormal electrocardiogram with nonspecific ST-T wave abnormalities, assess for acute coronary syndrome- r/o IL, no intervention planned. 3. History of recent [id number] myocardial infarction- on meds. 4. Fevers - Rx with anti-bx, no new fevers. 5. Urinary tract infection. 6. Dyslipidemia. 7. Seizure disorder- stable. 8. Hypothyroidism. 9. Encephalopathy. 10. Anemia requiring transfusions previously - H/H at 8.7 - stable now. ZANE JACOME MD Nov 02, 2018 11:36
--- NOTE | 2018-11-02 11:51 | PN ---
Date/Time of Note Date/Time of Note DATE: 11/02/18 TIME: 11:45 Assessment/Plan VTE Prophylaxis Risk score (from Ns)>0 risk: 6 SCD applied (from Nsg): Yes Pharmacological prophylaxis: other Lines/Catheters IV Catheter Type (from Nrsg): Saline Lock Urinary Cath still in place: Yes Reason Cath still needed: urinary retention Assessment/Plan Hospital Course S: Patient seen by ID and cardiology teams yesterday. O: VS -SEE BELOW PE: GENERAL: lying in bed, opens eyes HEENT: Moist mucous membranes, dried blood noted in the pharynx area NECK: Supple, no thyromegaly. LUNGS: Mechanical breath sounds equal bilaterally. CARDIOVASCULAR: S1, S2 heard. No rubs or gallops. ABDOMEN: Soft, nontender, nondistended. Normal bowel sounds. No rebound or guarding. MUSCULOSKELETAL: No lower extremity edema bilaterally. Assessment/Plan: 67-year-old female coming in with signs of septic shock, likely secondary to urinary tract infection and pneumonia, elevated troponins, acute renal insufficiency, initially intubated requiring pressor support, now extubated and out of ICU. Also presented with atrial fibrillation with rapid ventricular response, now in normal sinus rhythm. #Sepsis: Likely secondary to UTI, possible upper respiratory infection as well. Positive Bhumika results on the urine culture as well -Continue treatment for E. coli UTI and bacteremia, including antibacterials and no antifungal, follow-up ID recommendations # respiratory distress-on 3 L oxygen with good saturations. -Continue current broad-spectrum antibiotics, Tylenol p.r.n. pain and fevers, and follow-up ID recommendations -DuoNeb's as needed #Seizure disorder-again diagnosed on her last admission recently, morning of 10/08 had whole body twitching concerning for seizures; got Ativan then Versed. Again on 10/11 had a similar episode broken with Ativan-10/08/18 EEG appears to have localized lesion but CT head is negative. Repeat EEG from 10/15/18 results noted, neuro following. - Continue keppra, valproic acid, follow-up neurology recommendations - Holding versed, but continue Ativan as needed - Low-dose Seroquel as needed for agitation # NSTEMI - Unclear if this is true non-ST elevation myocardial infarction versus demand ischemia- s/p heparin gtt earlier. Was treated for this with Lovenox twice daily, but this was stopped a few days ago secondary to oral bleeding - Continue Lipitor. -Follow-up cardiology recommendations -continue medical management #A fib with RVR- again this occurred last night when the patient was re-admitted , presently on Cardizem drip. -Monitor heart rate for now, follow up cardiology recommendations -Continue Cardizem drip for now # Renal insufficiency -resolved -Monitor # Hypothyroidism - Continue current thyroid medicines. - Low TSH, normal fT4 consistent with sick euthyroid syndrome. # History of dementia. - Continue Aricept for now. - PEG placement 10/25-we will resume these feeds today # History of high cholesterol. - Cont statin #Anemia: Hemoglobin much lower today but no signs of any upper or lower GI bleeding. -We will repeat H&H, if still low will give PRBC transfusion # Gastrointestinal prophylaxis- H2 panda. # Deep venous thrombosis prophylaxis- SCDs Result Diagram: 11/02/18 0448 11/02/18 0448 Results 24hrs Laboratory Tests Test 11/01/18 11:55 11/01/18 14:56 11/02/18 04:48 Vancomycin Level Trough 9.1 L Hemoglobin 8.7 L 8.7 L Hematocrit 27.6 L 27.6 L White Blood Count 5.0 Red Blood Count 2.79 #L Mean Corpuscular Volume 98.9 Mean Corpuscular Hemoglobin 31.2 Mean Corpuscular Hemoglobin Concent 31.5 L Red Cell Distribution Width 16.8 H Platelet Count 158 # Mean Platelet Volume 11.2 H Immature Granulocytes % 4.800 H Neutrophils % Segmented Neutrophils % (Manual) 45 Band Neutrophils % (Manual) 10 H Lymphocytes % Lymphocytes % (Manual) 27 Reactive Lymphocytes % (Manual) 5 H Monocytes % Monocytes % (Manual) 6 Eosinophils % Eosinophils % (Manual) 4 Basophils % Metamyelocytes % (manual) 1 H Myelocytes % (Manual) 2 H Nucleated Red Blood Cells % 0.0 Immature Granulocytes # 0.240 H Neutrophils # Neutrophils # (Manual) 2.3 Band Neutrophils # 0.5 Lymphocytes (Manual) 1.3 Lymphocytes # Reactive Lymphocytes # 0.2 H Monocytes # Monocytes # (Manual) 0.3 Eosinophils # Basophils # Metamyelocytes # 0.0 Myelocytes # 0.1 H Nucleated Red Blood Cells # Platelet Estimate NORMAL Polychromasia 3+ Poikilocytosis 1+ Anisocytosis 1+ Tear Drop Cells 1+ Sodium Level 141 Potassium Level 3.2 L Chloride Level 114 H Carbon Dioxide Level 23 Anion Gap 4 L Blood Urea Nitrogen 19 Creatinine 0.71 Est Glomerular Filtrat Rate mL/min > 60 Glucose Level 108 Calcium Level 8.7 Exam/Review of Systems Exam Vitals Vital Signs Date Temp Pulse Resp B/P (MAP) Pulse Ox O2 O2 Flow FiO2 Time Delivery Rate 11/02/18 97.9 89 20 111/55 96 Nasal 11:03 (73) Cannula 11/02/18 2.0 08:03 11/01/18 28 10:55 Intake and Output 11/01/18 11/01/18 11/02/18 1414:59 22:59 06:59 IntakeIntake Total 450 ml 1860 ml 2060 ml OutputOutput Total 500 ml 1800 ml BalanceBalance 450 ml 1360 ml 260 ml Results Results 24hrs Laboratory Tests Test 11/01/18 11:55 11/01/18 14:56 11/02/18 04:48 Vancomycin Level Trough 9.1 L Hemoglobin 8.7 L 8.7 L Hematocrit 27.6 L 27.6 L White Blood Count 5.0 Red Blood Count 2.79 #L Mean Corpuscular Volume 98.9 Mean Corpuscular Hemoglobin 31.2 Mean Corpuscular Hemoglobin Concent 31.5 L Red Cell Distribution Width 16.8 H Platelet Count 158 # Mean Platelet Volume 11.2 H Immature Granulocytes % 4.800 H Neutrophils % Segmented Neutrophils % (Manual) 45 Band Neutrophils % (Manual) 10 H Lymphocytes % Lymphocytes % (Manual) 27 Reactive Lymphocytes % (Manual) 5 H Monocytes % Monocytes % (Manual) 6 Eosinophils % Eosinophils % (Manual) 4 Basophils % Metamyelocytes % (manual) 1 H Myelocytes % (Manual) 2 H Nucleated Red Blood Cells % 0.0 Immature Granulocytes # 0.240 H Neutrophils # Neutrophils # (Manual) 2.3 Band Neutrophils # 0.5 Lymphocytes (Manual) 1.3 Lymphocytes # Reactive Lymphocytes # 0.2 H Monocytes # Monocytes # (Manual) 0.3 Eosinophils # Basophils # Metamyelocytes # 0.0 Myelocytes # 0.1 H Nucleated Red Blood Cells # Platelet Estimate NORMAL Polychromasia 3+ Poikilocytosis 1+ Anisocytosis 1+ Tear Drop Cells 1+ Sodium Level 141 Potassium Level 3.2 L Chloride Level 114 H Carbon Dioxide Level 23 Anion Gap 4 L Blood Urea Nitrogen 19 Creatinine 0.71 Est Glomerular Filtrat Rate mL/min > 60 Glucose Level 108 Calcium Level 8.7 Medications Medication Current Medications Dextrose/Sodium Chloride 1,000 ml @ 100 mls/hr Q10H IV Last administered on 11/02/18 01:18; Admin Dose 100 MLS/HR; Start 10/31/18 at 00:45 IV Flush (NS 3 ml) 3 ml PER PROTOCOL IV ; Start 10/31/18 at 01:00 Ondansetron HCl (Zofran Inj) 4 mg Q6H PRN IV NAUSEA/VOMITING; Start 10/31/18 at 01:00 Ipratropium [place] (Atrovent 0.02% (Neb)) 0.5 mg Q2H RESP THERAPY PRN NEB SHORTNESS OF BREATH Last administered on 11/01/18 10:53; Admin Dose 0.5 MG; Start 10/31/18 at 01:00 Levalbuterol (Xopenex Neb) 0.63 mg Q2H RESP THERAPY PRN HHN sob, wheezing Last administered on 11/01/18 10:53; Admin Dose 0.63 MG; Start 10/31/18 at 01:00 Atorvastatin Calcium (Lipitor) 10 mg QHS PO Last administered on 11/01/18 22:07; Admin Dose 10 MG; Start 10/31/18 at 21:00 Divalproex Sodium (Depakote) 500 mg BID PO Last administered on 11/02/18 08:31; Admin Dose 500 MG; Start 10/31/18 at 09:00 Donepezil HCl (Aricept) 5 mg QHS PO Last administered on 11/01/18 22:08; Admin Dose 5 MG; Start 10/31/18 at 21:00 Gabapentin (Neurontin) 400 mg TID PO Last administered on 11/02/18 08:31; Admin Dose 400 MG; Start 10/31/18 at 09:00 Levetiracetam (Keppra) 500 mg BID PO Last administered on 11/02/18 08:31; Admin Dose 500 MG; Start 10/31/18 at 09:00 Quetiapine Fumarate (Seroquel) 200 mg HS PO Last administered on 11/01/18 22:08; Admin Dose 200 MG; Start 10/31/18 at 21:00 Trazodone HCl (Desyrel) 100 mg QHS PO Last administered on 11/01/18at 22:10; Admin Dose 100 MG; Start 10/31/18 at 21:00 Aztreonam 50 ml @ 100 mls/hr Q12H IVPB Last administered on 11/02/18at 08:31; Admin Dose 100 MLS/HR; Start 10/31/18 at 09:00 Metoprolol Tartrate (Lopressor) 25 mg BID PO Last administered on 11/02/18at 08:32; Admin Dose 25 MG; Start 10/31/18 at 21:00 Amiodarone HCl (Cordarone) 200 mg BID PO Last administered on 11/02/18at 08:32; Admin Dose 200 MG; Start 10/31/18 at 21:00 Enoxaparin Sodium (Lovenox) 40 mg DAILY SC Last administered on 11/02/18at 08:44; Admin Dose 40 MG; Start 11/01/18 at 09:00 Diltiazem HCl (Cardizem Iv) 5 mg Q3 PRN IV HR>110 Hold SBP<100; Start 10/31/18 at 14:30 Caspofungin 50 mg/ Sodium Chloride 250 ml @ 250 mls/hr Q24H IVPB ; Start at 14:00 Vancomycin/Sodium Chloride 250 ml @ 125 mls/hr Q12H IVPB Last administered on 11/02/18at 01:18; Admin Dose 125 MLS/HR; Start 11/02/18 at 01:00 Potassium Chloride (Klor-Con 20) 40 meq DAILY ONCE PO ; Start 11/02/18 at 16:00; Stop 11/02/18 at 16:01; Status MANUEL SAMANO Nov 02, 2018 11:51
[2018-11-02] MEDS: CASPOFUNGIN 50 MG in SOD CHLORIDE 0.9% 250 ML IVPB SCH (14:31)
[2018-11-02] MEDS ORDERED: POTASSIUM CHLORIDE (SR) 20 MEQ TAB PO ONE (16:00)
--- NOTE | 2018-11-02 18:05 | RADRPT ---
Vent Rate: 86 bpm RR Interval: 0 msec IA Interval: 158 msec QRS Duration: 92 msec QT Interval: 358 msec QTC Interval: 428 msec P-R-T Garrett: 63 - 70 - 46 degrees Normal sinus rhythm Artifact Normal ECG Electronically Signed By: Jorge A Rich
[2018-11-02] MEDS: ATORVASTATIN 10 MG TAB PO SCH (20:54)
[2018-11-02] MEDS: traZODone 100 MG TAB PO SCH (20:54)
[2018-11-02] MEDS: DONEPEZIL 5 MG TAB PO SCH (20:55)
[2018-11-02] MEDS: QUETIAPINE 100 MG TAB PO SCH (20:55)
[2018-11-03] VITALS (9 sets, daily range): BP systolic 111–158; BP diastolic 59–85; PULSE 70–86; RESP 17–20
[2018-11-03] MEDS: VANCOMYCIN 750 MG (PMX) 250 ML IVPB SCH ×2 (00:21→12:13)
[2018-11-03] MEDS: DEXTROSE 5%-0.45% NACL 1,000 ML IV SCH ×3 (07:53→17:52)
[2018-11-03] MEDS: LEVETIRACETAM 500 MG TAB PO SCH ×2 (08:23→20:27)
[2018-11-03] MEDS: AMIODARONE 200 MG TAB PO SCH ×2 (08:24→20:25)
[2018-11-03] MEDS: GABAPENTIN 400 MG CAP PO SCH ×3 (08:24→20:27)
[2018-11-03] MEDS: DIVALPROEX (EC) 500 MG TAB PO SCH ×2 (08:24→20:24)
[2018-11-03] MEDS: METOPROLOL 25 MG TAB PO SCH ×2 (08:24→20:26)
[2018-11-03] MEDS: AZTREONAM 1 GM/NS (PMX) 50 ML IVPB SCH ×2 (08:25→20:23)
[2018-11-03] MEDS: ENOXAPARIN 40 MG/0.4 ML SYG SC SCH (08:29)
[2018-11-03] MEDS ORDERED: MAGNESIUM SULFATE 1 GM/D5W 100 ML IVPB ONE (09:00)
--- NOTE | 2018-11-03 09:41 | PN ---
Date/Time of Note Date/Time of Note DATE: 11/03/18 TIME: 09:35 Assessment/Plan VTE Prophylaxis Risk score (from Ns)>0 risk: 6 SCD applied (from Ns): Yes Pharmacological prophylaxis: other Lines/Catheters [facility] Urinary Cath still in place: Yes Reason Cath still needed: urinary retention Assessment/Plan Hospital Course S: Patient had no acute events overnight, tolerating diet. No signs of any upper or lower GI bleeding. O: VS -SEE BELOW PE: GENERAL: lying in bed, opens eyes HEENT: Moist mucous membranes, dried blood noted in the pharynx area NECK: Supple, no thyromegaly. LUNGS: Mechanical breath sounds equal bilaterally. CARDIOVASCULAR: S1, S2 heard. No rubs or gallops. ABDOMEN: Soft, nontender, nondistended. Normal bowel sounds. No rebound or guarding. MUSCULOSKELETAL: No lower extremity edema bilaterally. Assessment/Plan: 67-year-old female coming in with signs of septic shock, likely secondary to urinary tract infection and pneumonia, elevated troponins, acute renal insufficiency, initially intubated requiring pressor support, now extubated and out of ICU. Also presented with atrial fibrillation with rapid ventricular response, now in normal sinus rhythm. #Sepsis: Likely secondary to UTI, possible upper respiratory infection as well. Positive Bhumika results on the urine culture as well -Continue treatment for E. coli UTI and bacteremia, including antibacterials and antifungal med, follow-up ID recommendations # respiratory distress-on 2-3 L oxygen with good saturations. -Continue current broad-spectrum antibiotics, Tylenol p.r.n. pain and fevers, and follow-up ID recommendations -DuoNeb's as needed #Seizure disorder-again diagnosed on her last admission recently, morning of 10/08 had whole body twitching concerning for seizures; got Ativan then Versed. Again on 10/11 had a similar episode broken with Ativan-10/08/18 EEG appears to have localized lesion but CT head is negative. Repeat EEG from 10/15/18 results noted, neuro following. - Continue keppra - Holding versed, but continue Ativan as needed - Low-dose Seroquel as needed for agitation # NSTEMI - Unclear if this is true non-ST elevation myocardial infarction versus demand ischemia- s/p heparin gtt earlier. Was treated for this with Lovenox twice daily, but this was stopped a few days ago secondary to oral bleeding - Continue Lipitor. - Follow-up cardiology recommendations - continue medical management #A fib with RVR-no events overnight. -Monitor heart rate for now, follow up cardiology recommendations -Continue metoprolol and amiodarone p.o. -Aspirin per cardiology recommendations, again Lovenox was held secondary to oral bleeding a few days ago. # Renal insufficiency -resolved -Monitor # Hypothyroidism - Continue current thyroid medicines. # History of dementia. - Continue Aricept for now. - PEG placement 10/25-PEG feeds # History of high cholesterol. - Cont statin #Anemia: Hemoglobin again lower today, 7.4. No signs of any bleeding per -We will repeat H&H, if still low will give PRBC transfusion # Gastrointestinal prophylaxis- H2 panda. # Deep venous thrombosis prophylaxis- SCDs Dispo: Likely back to alf facility in the next 24-48 hours if heart rate remains stable, hemoglobin remained stable, and treatment of infection improves. Result Diagram: 11/03/18 0514 11/03/1814 Results 24hrs Laboratory Tests Test 11/03/18 05:14 White Blood Count 5.1 Red Blood Count 2.38 L Hemoglobin 7.4 L Hematocrit 24.0 L Mean Corpuscular Volume 100.8 Mean Corpuscular Hemoglobin 31.1 Mean Corpuscular Hemoglobin Concent 30.8 L Red Cell Distribution Width 17.2 H Platelet Count 181 Mean Platelet Volume 11.4 H Immature Granulocytes % 10.500 H Neutrophils % Segmented Neutrophils % (Manual) 33 L Band Neutrophils % (Manual) 1 Lymphocytes % Lymphocytes % (Manual) 45 Monocytes % Monocytes % (Manual) 7 Eosinophils % Eosinophils % (Manual) 6 Basophils % Metamyelocytes % (manual) 1 H Myelocytes % (Manual) 6 H Promyelocytes % (Manual) 1 H Nucleated Red Blood Cells % 0.0 Immature Granulocytes # 0.530 H Neutrophils # Neutrophils # (Manual) 1.7 Band Neutrophils # 0.0 Lymphocytes (Manual) 2.2 Lymphocytes # Monocytes # Monocytes # (Manual) 0.3 Eosinophils # Basophils # Metamyelocytes # 0.0 Myelocytes # 0.3 H Promyelocytes # 0.0 Nucleated Red Blood Cells # Platelet Estimate NORMAL Giant Platelets 5 H Polychromasia 3+ Poikilocytosis 1+ Anisocytosis 1+ Macrocytosis 1+ Target Cells 1+ Sodium Level 140 Potassium Level 4.0 Chloride Level 114 H Carbon Dioxide Level 22 Anion Gap 4 L Blood Urea Nitrogen 17 Creatinine 0.61 Est Glomerular Filtrat Rate mL/min > 60 Glucose Level 94 Calcium Level 9.0 Phosphorus Level 3.5 Magnesium Level 1.6 L Exam/Review of Systems Exam Vitals Vital Signs Date Temp Pulse Resp B/P (MAP) Pulse Ox O2 O2 Flow FiO2 Time Delivery Rate 11/03/18 78 08:44 11/03/18 98.2 20 132/74 94 07:56 (93) 11/03/18 Nasal 2.0 07:31 Cannula 11/01/18 28 10:55 Intake and Output 11/02/18 11/02/18 11/03/18 1515:00 23:00 07:00 IntakeIntake Total 300 ml 1210 ml 2060 ml OutputOutput Total 800 ml 1200 ml BalanceBalance 300 ml 410 ml 860 ml Results Results 24hrs Laboratory Tests Test 11/03/18 05:14 White Blood Count 5.1 Red Blood Count 2.38 L Hemoglobin 7.4 L Hematocrit 24.0 L Mean Corpuscular Volume 100.8 Mean Corpuscular Hemoglobin 31.1 Mean Corpuscular Hemoglobin Concent 30.8 L Red Cell Distribution Width 17.2 H Platelet Count 181 Mean Platelet Volume 11.4 H Immature Granulocytes % 10.500 H Neutrophils % Segmented Neutrophils % (Manual) 33 L Band Neutrophils % (Manual) 1 Lymphocytes % Lymphocytes % (Manual) 45 Monocytes % Monocytes % (Manual) 7 Eosinophils % Eosinophils % (Manual) 6 Basophils % Metamyelocytes % (manual) 1 H Myelocytes % (Manual) 6 H Promyelocytes % (Manual) 1 H Nucleated Red Blood Cells % 0.0 Immature Granulocytes # 0.530 H Neutrophils # Neutrophils # (Manual) 1.7 Band Neutrophils # 0.0 Lymphocytes (Manual) 2.2 Lymphocytes # Monocytes # Monocytes # (Manual) 0.3 Eosinophils # Basophils # Metamyelocytes # 0.0 Myelocytes # 0.3 H Promyelocytes # 0.0 Nucleated Red Blood Cells # Platelet Estimate NORMAL Giant Platelets 5 H Polychromasia 3+ Poikilocytosis 1+ Anisocytosis 1+ Macrocytosis 1+ Target Cells 1+ Sodium Level 140 Potassium Level 4.0 Chloride Level 114 H Carbon Dioxide Level 22 Anion Gap 4 L Blood Urea Nitrogen 17 Creatinine 0.61 Est Glomerular Filtrat Rate mL/min > 60 Glucose Level 94 Calcium Level 9.0 Phosphorus Level 3.5 Magnesium Level 1.6 L Medications Medication Current Medications Dextrose/Sodium Chloride 1,000 ml @ 100 mls/hr Q10H IV Last administered on 11/02/18 22:36; Admin Dose 100 MLS/HR; Start 10/31/18 at 00:45 IV Flush (NS 3 ml) 3 ml PER PROTOCOL IV ; Start 10/31/18 at 01:00 Ondansetron HCl (Zofran Inj) 4 mg Q6H PRN IV NAUSEA/VOMITING; Start 10/31/18 at 01:00 Ipratropium [place] (Atrovent 0.02% (Neb)) 0.5 mg Q2H RESP THERAPY PRN NEB SHORTNESS OF BREATH Last administered on 11/01/18 10:53; Admin Dose 0.5 MG; St art 10/31/18 at 01:00 Levalbuterol (Xopenex Neb) 0.63 mg Q2H RESP THERAPY PRN HHN sob, wheezing Last administered on 11/01/18 10:53; Admin Dose 0.63 MG; Start 10/31/18 at 01:00 Atorvastatin Calcium (Lipitor) 10 mg QHS PO Last administered on 11/02/18 20:54; Admin Dose 10 MG; Start 10/31/18 at 21:00 Divalproex Sodium (Depakote) 500 mg BID PO Last administered on 11/03/18 08:24; Admin Dose 500 MG; Start 10/31/18 at 09:00 Donepezil HCl (Aricept) 5 mg QHS PO Last administered on 11/02/18 20:55; Admin Dose 5 MG; Start 10/31/18 at 21:00 Gabapentin (Neurontin) 400 mg TID PO Last administered on 11/03/18 08:24; Admin Dose 400 MG; Start 10/31/18 at 09:00 Levetiracetam (Keppra) 500 mg BID PO Last administered on 11/03/18 08:23; Admin Dose 500 MG; Start 10/31/18 at 09:00 Quetiapine Fumarate (Seroquel) 200 mg HS PO Last administered on 11/02/18 20:55; Admin Dose 200 MG; Start 10/31/18 at 21:00 Trazodone HCl (Desyrel) 100 mg QHS PO Last administered on 11/02/18at 20:54; Admin Dose 100 MG; Start 10/31/18 at 21:00 Aztreonam 50 ml @ 100 mls/hr Q12H IVPB Last administered on 11/03/18 08:25; Admin Dose 100 MLS/HR; Start 10/31/18 at 09:00 Metoprolol Tartrate (Lopressor) 25 mg BID PO Last administered on 11/03/18at 08:24; Admin Dose 25 MG; Start 10/31/18 at 21:00 Amiodarone HCl (Cordarone) 200 mg BID PO Last administered on 11/03/18 08:24; Admin Dose 200 MG; Start 10/31/18 at 21:00 Enoxaparin Sodium (Lovenox) 40 mg DAILY SC Last administered on 11/03/18at 08:29; Admin Dose 40 MG; Start 11/01/18 at 09:00 Diltiazem HCl (Cardizem Iv) 5 mg Q3 PRN IV HR>110 Hold SBP<100; Start 10/31/18 at 14:30 Caspofungin 50 mg/ Sodium Chloride 250 ml @ 250 mls/hr Q24H IVPB Last administered on 11/02/18at 14:31; Admin Dose 250 MLS/HR; Start 11/02/18 at 14:00 Vancomycin/Sodium Chloride 250 ml @ 125 mls/hr Q12H IVPB Last administered on 11/03/18at 00:21; Admin Dose 125 MLS/HR; Start 11/02/18 at 01:00 Magnesium Sulfate/ Dextrose 100 ml @ 100 mls/hr ONCE ONCE IVPB ; Start 11/03/18 at 09:00; Stop 11/03/18 at 09:59 Miscellaneous Information (*Rx Drug Level Order Reminder*) VANCO TROUGH @ 0,000 ON... 0000 ONCE XX ; Start 11/04/18 at 00:00; Stop 11/04/18 at 00:01 MANUEL ALEMAN Nov 03, 2018 09:41
[2018-11-03] MEDS ORDERED: ACETAMINOPHEN 325 MG TAB PO PRN (10:00)
[2018-11-03] MEDS: ASPIRIN (EC) 81 MG TAB PO SCH (10:18)
[2018-11-03] MEDS: HYDROCODONE/APAP (5/325) TAB PO PRN ×2 (10:19→20:26)
--- NOTE | 2018-11-03 12:10 | CONS ---
Consult Date/Type/Reason Admit Date/Time Oct 30, 2018 at 22:59 Initial Consult Date Requesting Provider: MICHELLE YBARRA PA-C Date/Time of Note DATE: 11/03/18 TIME: 12:08 Subjective NO acute events - pt doing better overall- no CP now - more alert - no tremor noted. ROS: No fever, no chills, no nausea, no vomiting, no diarrhea/constipation - per nurse Objective Vitals Vital Signs Date Temp Pulse Resp B/P (MAP) Pulse Ox O2 O2 Flow FiO2 Time Delivery Rate 11/03/18 98.3 70 17 136/72 92 12:03 (93) 11/03/18 Nasal 2.0 07:31 Cannula 11/01/18 28 10:55 Intake and Output 11/02/18 11/02/18 11/03/18 1515:00 23:00 07:00 IntakeIntake Total 300 ml 1210 ml 2060 ml OutputOutput Total 800 ml 1200 ml BalanceBalance 300 ml 410 ml 860 ml Exam General: WN/WD/NAD, AOx 1-2 better now HEENT: Unicetric/atraumatic/EOMI (follows commands) NECK: JVD elevated, no thyromegaly Lymph: no lymphadenopathy HEART: regular with no S3, II/ systolic murmur at apex LUNGS: Coarse sounds ABD: soft, NT, ND, +BS : Intact Neuro: non focal SKIN: chronic changes EXT: trace edema Results/Medications Result Diagram: 11/03/18 0956 11/03/18 0514 Results 24 hrs Laboratory Tests Test 11/03/18 05:14 11/03/18 09:56 White Blood Count 5.1 Red Blood Count 2.38 L Hemoglobin 7.4 L 7.9 L Hematocrit 24.0 L 25.4 L Mean Corpuscular Volume 100.8 Mean Corpuscular Hemoglobin 31.1 Mean Corpuscular Hemoglobin Concent 30.8 L Red Cell Distribution Width 17.2 H Platelet Count 181 Mean Platelet Volume 11.4 H Immature Granulocytes % 10.500 H Neutrophils % Segmented Neutrophils % (Manual) 33 L Band Neutrophils % (Manual) 1 Lymphocytes % Lymphocytes % (Manual) 45 Monocytes % Monocytes % (Manual) 7 Eosinophils % Eosinophils % (Manual) 6 Basophils % Metamyelocytes % (manual) 1 H Myelocytes % (Manual) 6 H Promyelocytes % (Manual) 1 H Nucleated Red Blood Cells % 0.0 Immature Granulocytes # 0.530 H Neutrophils # Neutrophils # (Manual) 1.7 Band Neutrophils # 0.0 Lymphocytes (Manual) 2.2 Lymphocytes # Monocytes # Monocytes # (Manual) 0.3 Eosinophils # Basophils # Metamyelocytes # 0.0 Myelocytes # 0.3 H Promyelocytes # 0.0 Nucleated Red Blood Cells # Platelet Estimate NORMAL Giant Platelets 5 H Polychromasia 3+ Poikilocytosis 1+ Anisocytosis 1+ Macrocytosis 1+ Target Cells 1+ Sodium Level 140 Potassium Level 4.0 Chloride Level 114 H Carbon Dioxide Level 22 Anion Gap 4 L Blood Urea Nitrogen 17 Creatinine 0.61 Est Glomerular Filtrat Rate mL/min > 60 Glucose Level 94 Calcium Level 9.0 Phosphorus Level 3.5 Magnesium Level 1.6 L Home Meds Active Scripts Vancomycin Hcl (Vancocin) 1 Gm Soln, 500 MG IV Q12 for 7 Days, VIAL 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 [employer] COMPLIANCE MANAGER 08/31/18 Aztreonam (AZTREONAM) 1 Gm Vial, 1 GM IV* Q12 for 7 Days, VIAL 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 TAX COMPLIANCE MANAGER 08/31/18 Reported Medications Donepezil* (Donepezil*) 5 Mg Tablet, 5 MG PO QHS, #30 TAB 08/28/18 Divalproex Sodium* (Depakote*) 500 Mg Tablet.dr, 500 MG PO BID, #120 TAB 08/28/18 Docusate Sodium* (Colace*) 100 Mg Capsule, 100 MG PO BID PRN for CONSTIPATION, #60 CAP 08/28/18 Atorvastatin Calcium (Atorvastatin Calcium) 10 Mg Tablet, 10 MG PO QHS, #30 TAB 08/28/18 Lorazepam* (Lorazepam*) 1 Mg Tablet, 1 MG PO BID PRN for ANXIETY, #30 TAB 08/28/18 Lactulose* (Lactulose*) 20 Gm/30 Ml Solution, 20 GM PO TID PRN for CONSTIPATION, ML 08/28/18 Trazodone Hcl* (Trazodone Hcl*) 100 Mg Tablet, 100 MG PO QHS, #30 TAB 08/28/18 Quetiapine Fumarate* (Seroquel*) 200 Mg Tablet, 200 MG PO HS, #30 TAB 08/28/18 Sennosides* (Senna Lax*) 8.6 Mg Tablet, 2 TAB PO QHS PRN for CONSTIPATION, TAB 08/28/18 Multivitamins* (Theragran*) 1 Tab Tab, 1 TAB PO DAILY, TAB 08/28/18 Polyethylene Glycol* (Miralax*) 17 Gm Powd.pack, 17 GM PO BID, #60 PACKET 08/28/18 Metoprolol Tartrate* (Lopressor*) 25 Mg Tab, 12.5 MG PO DAILY, #60 TAB HOLD IF SBP<115 OR HR<60 08/28/18 Levetiracetam* (Keppra*) 500 Mg Tablet, 500 MG PO BID, TAB 08/28/18 Gabapentin* (Gabapentin*) 400 Mg Capsule, 400 MG PO TID, #90 CAP 08/28/18 Phenylephrine HCl/Hines Butter* (Preparation H* Suppository) 1 Each Supp.rect, 1 EACH AK DAILY PRN for CONSTIPATION, SUPP.RECT 08/28/18 Mineral Oil* (Fleet* Mineral Oil Enema) 133 Ml Oil, 133 ML AK DAILY PRN for CONSTIPATION, ENEMA 08/28/18 Acetaminophen* (Acetaminophen*) 650 Mg Tablet, 650 MG PO DAILY PRN for PAIN AND OR ELEVATED TEMP, #30 TAB 08/28/18 Bisacodyl* (Bisacodyl*) 5 Mg Tablet.dr, 10 MG PO DAILY PRN for CONSTIPATION, TAB 08/28/18 Discontinued Reported Medications Levothyroxine Sodium* (Levothyroxine Sodium*) 50 Mcg Tablet, 50 MCG PO BEFORE BREAKFAST, #30 TAB 08/28/18 Medications Current Medications Dextrose/Sodium Chloride 1,000 ml @ 100 mls/hr Q10H IV Last administered on 11/02/18at 22:36; Admin Dose 100 MLS/HR; Start 10/31/18 at 00:45 IV Flush (NS 3 ml) 3 ml PER PROTOCOL IV ; Start 10/31/18 at 01:00 Ondansetron HCl (Zofran Inj) 4 mg Q6H PRN IV NAUSEA/VOMITING; Start 10/31/18 at 01:00 Ipratropium [place] (Atrovent 0.02% (Neb)) 0.5 mg Q2H RESP THERAPY PRN NEB SHORTNESS OF BREATH Last administered on 11/01/18at 10:53; Admin Dose 0.5 MG; Start 10/31/18 at 01:00 Levalbuterol (Xopenex Neb) 0.63 mg Q2H RESP THERAPY PRN HHN sob, wheezing Last administered on 11/01/18 10:53; Admin Dose 0.63 MG; Start 10/31/18 at 01:00 Atorvastatin Calcium (Lipitor) 10 mg QHS PO Last administered on 11/02/18 20:54; Admin Dose 10 MG; Start 10/31/18 at 21:00 Divalproex Sodium (Depakote) 500 mg BID PO Last administered on 11/03/18 08:24; Admin Dose 500 MG; Start 10/31/18 at 09:00 Donepezil HCl (Aricept) 5 mg QHS PO Last administered on 11/02/18 20:55; Admin Dose 5 MG; Start 10/31/18 at 21:00 Gabapentin (Neurontin) 400 mg TID PO Last administered on 11/03/18 08:24; Admin Dose 400 MG; Start 10/31/18 at 09:00 Levetiracetam (Keppra) 500 mg BID PO Last administered on 11/03/18 08:23; Admin Dose 500 MG; Start 10/31/18 at 09:00 Quetiapine Fumarate (Seroquel) 200 mg HS PO Last administered on 11/02/18 20:55; Admin Dose 200 MG; Start 10/31/18 at 21:00 Trazodone HCl (Desyrel) 100 mg QHS PO Last administered on 11/02/18 20:54; Admin Dose 100 MG; Start 10/31/18 at 21:00 Aztreonam 50 ml @ 100 mls/hr Q12H IVPB Last administered on 11/03/18 08:25; Admin Dose 100 MLS/HR; Start 10/31/18 at 09:00 Metoprolol Tartrate (Lopressor) 25 mg BID PO Last administered on 11/03/18 08:24; Admin Dose 25 MG; Start 10/31/18 at 21:00 Amiodarone HCl (Cordarone) 200 mg BID PO Last administered on 11/03/18 08:24; Admin Dose 200 MG; Start 10/31/18 at 21:00 Enoxaparin Sodium (Lovenox) 40 mg DAILY SC Last administered on 11/03/18at 08:29; Admin Dose 40 MG; Start 11/01/18 at 09:00 Diltiazem HCl (Cardizem Iv) 5 mg Q3 PRN IV HR>110 Hold SBP<100; Start 10/31/18 at 14:30 Caspofungin 50 mg/ Sodium Chloride 250 ml @ 250 mls/hr Q24H IVPB Last administered on 11/02/18at 14:31; Admin Dose 250 MLS/HR; Start 11/02/18 at 14:00 Vancomycin/Sodium Chloride 250 ml @ 125 mls/hr Q12H IVPB Last administered on 11/03/18at 00:21; Admin Dose 125 MLS/HR; Start 11/02/18 at 01:00 Miscellaneous Information (*Rx Drug Level Order Reminder*) VANCO TROUGH @ 0,000 ON... 0000 ONCE XX ; Start 11/04/18 at 00:00; Stop 11/04/18 at 00:01 Acetaminophen (Tylenol Tab) 650 mg Q6H PRN PO MILD PAIN(1-3)OR ELEVATED TEMP; Start 11/03/18 at 10:00 Acetaminophen/ Hydrocodone Bitart ([place] (5/325)) 1 tab Q6H PRN PO MODERATE PAIN LEVEL 4-6 Last administered on 11/03/18at 10:19; Admin Dose 1 TAB; Start 11/03/18 at 10:00 Aspirin (Halfprin) 81 mg DAILY PO Last administered on 11/03/18at 10:18; Admin Dose 81 MG; Start 11/03/18 at 10:30 Assessment/Plan Hospital Course (Demo Recall) 1. Paroxysmal atrial fibrillation with rapid ventricular response with patient previously being on Lovenox and then developed bleeding on that and therefore was discontinued due to bleeding. The patient was initially placed on aspirin, which can be continued. Converted to sinus now. RATE CONTROLLED in sinus now. 2. Abnormal electrocardiogram with nonspecific ST-T wave abnormalities, assess for acute coronary syndrome- r/o [place], no intervention planned. Treated. 3. History of recent lrl-LG-naluxqynl myocardial infarction- on meds. NO evidence of iscemia now 4. Fevers - Rx with anti-bx, no new fevers. Resolved. 5. Urinary tract infection. 6. Dyslipidemia. 7. Seizure disorder- stable. 8. Hypothyroidism. 9. Encephalopathy. 10. Anemia requiring transfusions previously - H/H trending down to 7.9. Will monitor now. ZANE JACOME MD Nov 03, 2018 12:10
--- NOTE | 2018-11-03 14:53 | CONS ---
Assessment/Plan Assessment/Plan Hospital Course (Demo Recall) ID PROGRESS NOTE CURRENT ABX: DAY # Vanco IV #4 + Azactam #4+ Cancidas #3 11/02/188 11/02/18 0448 24H INTERVAL SUMMARY * Awake, alert, responsive, confused, feeling better she is SMILING and mood is happy and cooperative * She has intermittent agitation -- must be feeling better * UTI => (+)YEAST started on Cancidas * Extubated 10/18/18 am -- O2 via [facility] * 11/01/18 CXR: Mildly increased bibasilar atelectasis or congestive change. MICRO/OTHER * 10/30/18 URINE CX (+) yeast URINE CULTURE Final Organism 1 CLAU ALBICANS COLONY COUNT >100,000 CFU/ml * 10/30/18 (-)MRSA * 10/30/18 BCx (-) * 10/08/2018 Resp. Cx (-) * 10/08/2018 BCx (-) * 10/06/2018 BCx (+)GNR = E.coli * 10/06/2018 Urine Cx (+)GNR = E.coli PHYSICAL EXAMINATION: GENERAL: VSS HEENT: AT, NC, anicteric NECK: Supple, CHEST: Equal chest rise bilaterally, without dyspnea on observation HEART: Pulse RRR ABDOMEN: Soft / NT EXTREMITIES: Warm, dry SKIN: No rash, no diaphoresis ID ASSESSMENT 67 yo F admit with: 1. Sepsis, likely 2 to recurrent UTI==> + C. albicans => RESOLVING * S/P FEVERS = resolved 2. Poss aspiration event 3. SZ disorder 4. Dysphagia/secretions retention 4. S/p UMBERTO 5. Non-ST elevation [place] 6. Atrial fibrillation 7. Encephalopathy ABX ALLERGIES: PCN/SULFA/CLINDA INVASIVES: PIV CURRENT ABX: DAY # Vanco IV #4 + Azactam #4+ Cancidas #3 ID RECOMMENDATIONS/PLAN: 1. Continue current ABX over the weekend -- re-evaluate SUNDAY for possible DC ABX 2. Mood and countenance much improved -- no agitation today . Consultation Date/Type/Reason Admit Date/Time Oct 30, 2018 at 22:59 Initial Consult Date Requesting Provider: MICHELLE YBARRA PA-C Date/Time of Note DATE: 11/03/18 TIME: 14:51 Exam/Review of Systems Exam Vitals Vital Signs Date Temp Pulse Resp B/P (MAP) Pulse Ox O2 O2 Flow FiO2 Time Delivery Rate 11/03/18 74 12:22 11/03/18 98.3 17 136/72 92 12:03 (93) 11/03/18 Nasal 2.0 07:31 Cannula 11/01/18 28 10:55 Intake and Output 11/02/18 11/02/18 11/03/18 1414:59 22:59 06:59 IntakeIntake Total 300 ml 1210 ml 2060 ml OutputOutput Total 800 ml 1200 ml BalanceBalance 300 ml 410 ml 860 ml Results Result Diagram: 11/03/18 0956 11/03/18 0514 Results 24hrs Laboratory Tests Test 11/03/18 05:14 11/03/18 09:56 White Blood Count 5.1 Red Blood Count 2.38 L Hemoglobin 7.4 L 7.9 L Hematocrit 24.0 L 25.4 L Mean Corpuscular Volume 100.8 Mean Corpuscular Hemoglobin 31.1 Mean Corpuscular Hemoglobin Concent 30.8 L Red Cell Distribution Width 17.2 H Platelet Count 181 Mean Platelet Volume 11.4 H Immature Granulocytes % 10.500 H Neutrophils % Segmented Neutrophils % (Manual) 33 L Band Neutrophils % (Manual) 1 Lymphocytes % Lymphocytes % (Manual) 45 Monocytes % Monocytes % (Manual) 7 Eosinophils % Eosinophils % (Manual) 6 Basophils % Metamyelocytes % (manual) 1 H Myelocytes % (Manual) 6 H Promyelocytes % (Manual) 1 H Nucleated Red Blood Cells % 0.0 Immature Granulocytes # 0.530 H Neutrophils # Neutrophils # (Manual) 1.7 Band Neutrophils # 0.0 Lymphocytes (Manual) 2.2 Lymphocytes # Monocytes # Monocytes # (Manual) 0.3 Eosinophils # Basophils # Metamyelocytes # 0.0 Myelocytes # 0.3 H Promyelocytes # 0.0 Nucleated Red Blood Cells # Platelet Estimate NORMAL Giant Platelets 5 H Polychromasia 3+ Poikilocytosis 1+ Anisocytosis 1+ Macrocytosis 1+ Target Cells 1+ Sodium Level 140 Potassium Level 4.0 Chloride Level 114 H Carbon Dioxide Level 22 Anion Gap 4 L Blood Urea Nitrogen 17 Creatinine 0.61 Est Glomerular Filtrat Rate mL/min > 60 Glucose Level 94 Calcium Level 9.0 Phosphorus Level 3.5 Magnesium Level 1.6 L Medications Medication Current Medications Dextrose/Sodium Chloride 1,000 ml @ 100 mls/hr Q10H IV Last administered on 11/03/18 13:51; Admin Dose 100 MLS/HR; Start 10/31/18 at 00:45 IV Flush (NS 3 ml) 3 ml PER PROTOCOL IV ; Start 10/31/18 at 01:00 Ondansetron HCl (Zofran Inj) 4 mg Q6H PRN IV NAUSEA/VOMITING; Start 10/31/18 at 01:00 Ipratropium [place] (Atrovent 0.02% (Neb)) 0.5 mg Q2H RESP THERAPY PRN NEB SHORTNESS OF BREATH Last administered on 11/01/18 10:53; Admin Dose 0.5 MG; Start 10/31/18 at 01:00 Levalbuterol (Xopenex Neb) 0.63 mg Q2H RESP THERAPY PRN HHN sob, wheezing Last administered on 11/01/18 10:53; Admin Dose 0.63 MG; Start 10/31/18 at 01:00 Atorvastatin Calcium (Lipitor) 10 mg QHS PO Last administered on 11/02/18 20:54; Admin Dose 10 MG; Start 10/31/18 at 21:00 Divalproex Sodium (Depakote) 500 mg BID PO Last administered on 11/03/18 08:24; Admin Dose 500 MG; Start 10/31/18 at 09:00 Donepezil HCl (Aricept) 5 mg QHS PO Last administered on 11/02/18 20:55; Admin Dose 5 MG; Start 10/31/18 at 21:00 Gabapentin (Neurontin) 400 mg TID PO Last administered on 11/03/18 12:13; Admin Dose 400 MG; Start 10/31/18 at 09:00 Levetiracetam (Keppra) 500 mg BID PO Last administered on 11/03/18 08:23; Admin Dose 500 MG; Start 10/31/18 at 09:00 Quetiapine Fumarate (Seroquel) 200 mg HS PO Last administered on 11/02/18 20:55; Admin Dose 200 MG; Start 10/31/18 at 21:00 Trazodone HCl (Desyrel) 100 mg QHS PO Last administered on 11/02/18 20:54; Admin Dose 100 MG; Start 10/31/18 at 21:00 Aztreonam 50 ml @ 100 mls/hr Q12H IVPB Last administered on 11/03/18 08:25; Admin Dose 100 MLS/HR; Start 10/31/18 at 09:00 Metoprolol Tartrate (Lopressor) 25 mg BID PO Last administered on 11/03/18 08:24; Admin Dose 25 MG; Start 10/31/18 at 21:00 Amiodarone HCl (Cordarone) 200 mg BID PO Last administered on 11/03/18 08:24; Admin Dose 200 MG; Start 10/31/18 at 21:00 Enoxaparin Sodium (Lovenox) 40 mg DAILY SC Last administered on 11/03/18 08:29; Admin Dose 40 MG; Start 11/01/18 at 09:00 Diltiazem HCl (Cardizem Iv) 5 mg Q3 PRN IV HR>110 Hold SBP<100; Start 10/31/18 at 14:30 Caspofungin 50 mg/ Sodium Chloride 250 ml @ 250 mls/hr Q24H IVPB Last ad ministered on 11/02/18at 14:31; Admin Dose 250 MLS/HR; Start 11/02/18 at 14:00 Vancomycin/Sodium Chloride 250 ml @ 125 mls/hr Q12H IVPB Last administered on 11/03/18at 12:13; Admin Dose 125 MLS/HR; Start 11/02/18 at 01:00 Miscellaneous Information (*Rx Drug Level Order Reminder*) VANCO TROUGH @ 0,000 ON... 0000 ONCE XX ; Start 11/04/18 at 00:00; Stop 11/04/18 at 00:01 Acetaminophen (Tylenol Tab) 650 mg Q6H PRN PO MILD PAIN(1-3)OR ELEVATED TEMP; Start 11/03/18 at 10:00 Acetaminophen/ Hydrocodone Bitart ([place] (5/325)) 1 tab Q6H PRN PO MODERATE PAIN LEVEL 4-6 Last administered on 11/03/18at 10:19; Admin Dose 1 TAB; Start 11/03/18 at 10:00 Aspirin (Halfprin) 81 mg DAILY PO Last administered on 11/03/18at 10:18; Admin Dose 81 MG; Start 11/03/18 at 10:30 ROLF GONZALEZ NP Nov 03, 2018 14:53
[2018-11-03] MEDS: CASPOFUNGIN 50 MG in SOD CHLORIDE 0.9% 250 ML IVPB SCH (15:30)
[2018-11-03] MEDS: ATORVASTATIN 10 MG TAB PO SCH (20:25)
[2018-11-03] MEDS: DONEPEZIL 5 MG TAB PO SCH (20:26)
[2018-11-03] MEDS: traZODone 100 MG TAB PO SCH (20:27)
[2018-11-03] MEDS: QUETIAPINE 100 MG TAB PO SCH (20:27)
[2018-11-04] VITALS (11 sets, daily range): BP systolic 118–137; BP diastolic 59–78; PULSE 70–91; RESP 16–18
[2018-11-04] MEDS: VANCOMYCIN 750 MG (PMX) 250 ML IVPB SCH ×2 (01:22→12:27)
[2018-11-04] MEDS: HYDROCODONE/APAP (5/325) TAB PO PRN ×2 (03:56→12:27)
[2018-11-04] MEDS: DEXTROSE 5%-0.45% NACL 1,000 ML IV SCH ×3 (04:45→22:02)
[2018-11-04] MEDS: AZTREONAM 1 GM/NS (PMX) 50 ML IVPB SCH (08:44)
[2018-11-04] MEDS: ASPIRIN (EC) 81 MG TAB PO SCH (08:45)
[2018-11-04] MEDS: GABAPENTIN 400 MG CAP PO SCH ×3 (08:46→22:00)
[2018-11-04] MEDS: DIVALPROEX (EC) 500 MG TAB PO SCH ×2 (08:46→22:01)
[2018-11-04] MEDS: LEVETIRACETAM 500 MG TAB PO SCH ×2 (08:47→21:59)
[2018-11-04] MEDS: METOPROLOL 25 MG TAB PO SCH ×2 (08:47→22:02)
[2018-11-04] MEDS: AMIODARONE 200 MG TAB PO SCH ×2 (08:47→22:02)
[2018-11-04] MEDS: ENOXAPARIN 40 MG/0.4 ML SYG SC SCH (08:59)
--- NOTE | 2018-11-04 11:46 | CONS ---
Assessment/Plan Assessment/Plan Hospital Course (Demo Recall) IMPRESSION: 1. Paroxysmal atrial fibrillation with rapid ventricular response with patient previously being on Lovenox and then developed bleeding on that and therefore was discontinued due to bleeding. The patient was initially placed on aspirin, which can be continued. 2. Abnormal electrocardiogram with nonspecific ST-T wave abnormalities, assess for acute coronary syndrome. 3. History of recent ita-XF-bsdeiuiku myocardial infarction. 4. Fevers. 5. Urinary tract infection. 6. Dyslipidemia. 7. Seizure disorder. 8. Hypothyroidism. 9. Encephalopathy. 10. Anemia requiring transfusions previously. Recc: -Tele -Continue BB -Continue amio in attempt to maintain SR -Continue statin -Contineu antifungals -Contineu lovenox -continue asa Consultation Date/Type/Reason Admit Date/Time Oct 30, 2018 at 22:59 Initial Consult Date 10/31/18 Type of Consult Cardiology Reason for Consultation AF Requesting Provider: MICHELLE YBARRA PA-C Date/Time of Note DATE: 11/04/18 TIME: 11:44 Exam/Review of Systems Vital Signs Vitals Vital Signs Date Temp Pulse Resp B/P (MAP) Pulse Ox O2 O2 Flow FiO2 Time Delivery Rate 11/04/18 2.0 09:22 11/04/18 72 08:00 11/04/18 Nasal 08:00 Cannula 11/04/18 97.9 18 118/59 95 07:40 (78) 11/01/18 28 10:55 Intake and Output 11/03/18 11/03/18 11/04/18 1414:59 22:59 06:59 IntakeIntake Total 150 ml 960 ml 2510 ml OutputOutput Total 1300 ml 1650 ml BalanceBalance 150 ml -340 ml 860 ml Exam Exam Review of Systems: CONSTITUTIONAL: No fevers, chills. PULMONARY: No sob CARDIOVASCULAR: No chest pain/palpitations GASTROINTESTINAL: No nausea/vomiting. GENITOURINARY: No hematuria/dysuria. MUSCULOSKELETAL: No myagias/arthalgias. PSYCHIATRIC: The patient denies depression. NEUROLOGIC: No weakness Constitutional: alert Psych: confusion Head: normocephalic ENMT: mucosa pink and moist Neck: supple, jvd (9 cm water) Respiratory: diminished breath sounds (at bases/B) Cardiovascular: regular rate and rhythm Gastrointestinal: soft, non-tender Musculoskeletal: muscle weakness (generalized) Extremities: edema (none) Neurological: other (NO focal deficits) Labs Result Diagram: 11/04/18 0505 11/04/18 0503 Results 24hrs Laboratory Tests Test 11/04/18 00:33 11/04/18 05:03 11/04/18 05:05 Vancomycin Level Trough 13.9 Sodium Level 138 Potassium Level 4.1 Chloride Level 110 Carbon Dioxide Level 23 Anion Gap 5 Blood Urea Nitrogen 15 Creatinine 0.61 Est Glomerular Filtrat Rate mL/min > 60 Glucose Level 91 Calcium Level 8.8 Phosphorus Level 4.2 Magnesium Level 1.5 L White Blood Count 6.2 # Red Blood Count 2.39 L Hemoglobin 7.4 L Hematocrit 23.8 L Mean Corpuscular Volume 99.6 Mean Corpuscular Hemoglobin 31.0 Mean Corpuscular Hemoglobin Concent 31.1 L Red Cell Distribution Width 17.2 H Platelet Count 182 Mean Platelet Volume 11.2 H Immature Granulocytes % 11.100 H Neutrophils % Segmented Neutrophils % (Manual) 37 L Band Neutrophils % (Manual) 9 H Lymphocytes % Lymphocytes % (Manual) 31 Monocytes % Monocytes % (Manual) 10 Eosinophils % Eosinophils % (Manual) 2 Basophils % Basophils % (Manual) 1 Metamyelocytes % (manual) 4 H Myelocytes % (Manual) 5 H Promyelocytes % (Manual) 1 H Nucleated Red Blood Cells % 1 H Immature Granulocytes # 0.690 H Neutrophils # Neutrophils # (Manual) 2.3 Band Neutrophils # 0.5 Lymphocytes (Manual) 1.9 Lymphocytes # Monocytes # Monocytes # (Manual) 0.6 Eosinophils # Basophils # Basophils # (Manual) 0.0 Metamyelocytes # 0.2 H Myelocytes # 0.3 H Promyelocytes # 0.0 Nucleated Red Blood Cells # Platelet Estimate NORMAL Giant Platelets 2 H Polychromasia 2+ Anisocytosis 1+ Ovalocytes 1+ Medications Medications Current Medications Dextrose/Sodium Chloride 1,000 ml @ 100 mls/hr Q10H IV Last administered on 11/03/18at 13:51; Admin Dose 100 MLS/HR; Start 10/31/18 at 00:45 IV Flush (NS 3 ml) 3 ml PER PROTOCOL IV ; Start 10/31/18 at 01:00 Ondansetron HCl (Zofran Inj) 4 mg Q6H PRN IV NAUSEA/VOMITING; Start 10/31/18 at 01:00 Ipratropium [place] (Atrovent 0.02% (Neb)) 0.5 mg Q2H RESP THERAPY PRN NEB SHORTNESS OF BREATH Last administered on 11/01/18 10:53; Admin Dose 0.5 MG; Start 10/31/18 at 01:00 Levalbuterol (Xopenex Neb) 0.63 mg Q2H RESP THERAPY PRN HHN sob, wheezing Last administered on 11/01/18 10:53; Admin Dose 0.63 MG; Start 10/31/18 at 01:00 Atorvastatin Calcium (Lipitor) 10 mg QHS PO Last administered on 11/03/18 20:25; Admin Dose 10 MG; Start 10/31/18 at 21:00 Divalproex Sodium (Depakote) 500 mg BID PO Last administered on 11/04/18 08:46; Admin Dose 500 MG; Start 10/31/18 at 09:00 Donepezil HCl (Aricept) 5 mg QHS PO Last administered on 11/03/18 20:26; Admin Dose 5 MG; Start 10/31/18 at 21:00 Gabapentin (Neurontin) 400 mg TID PO Last administered on 11/04/18 08:46; Admin Dose 400 MG; Start 10/31/18 at 09:00 Levetiracetam (Keppra) 500 mg BID PO Last administered on 11/04/18 08:47; Admin Dose 500 MG; Start 10/31/18 at 09:00 Quetiapine Fumarate (Seroquel) 200 mg HS PO Last administered on 11/03/18 20:27; Admin Dose 200 MG; Start 10/31/18 at 21:00 Trazodone HCl (Desyrel) 100 mg QHS PO Last administered on 11/03/18 20:27; Admin Dose 100 MG; Start 10/31/18 at 21:00 Aztreonam 50 ml @ 100 mls/hr Q12H IVPB Last administered on 11/04/18 08:44; Admin Dose 100 MLS/HR; Start 10/31/18 at 09:00 Metoprolol Tartrate (Lopressor) 25 mg BID PO Last administered on 11/04/18 08:47; Admin Dose 25 MG; Start 10/31/18 at 21:00 Amiodarone HCl (Cordarone) 200 mg BID PO Last administered on 11/04/18 08:47; Admin Dose 200 MG; Start 10/31/18 at 21:00 Enoxaparin Sodium (Lovenox) 40 mg DAILY SC Last administered on 11/04/18at 08:59; Admin Dose 40 MG; Start 11/01/18 at 09:00 Diltiazem HCl (Cardizem Iv) 5 mg Q3 PRN IV HR>110 Hold SBP<100; Start 10/31/18 at 14:30 Caspofungin 50 mg/ Sodium Chloride 250 ml @ 250 mls/hr Q24H IVPB Last administered on 11/03/18at 15:30; Admin Dose 250 MLS/HR; Start 11/02/18 at 14:00 Vancomycin/Sodium Chloride 250 ml @ 125 mls/hr Q12H IVPB Last administered on 11/04/18at 01:22; Admin Dose 125 MLS/HR; Start 11/02/18 at 01:00 Acetaminophen (Tylenol Tab) 650 mg Q6H PRN PO MILD PAIN(1-3)OR ELEVATED TEMP; Start 11/03/18 at 10:00 Acetaminophen/ Hydrocodone Bitart ([place] (5/325)) 1 tab Q6H PRN PO MODERATE PAIN LEVEL 4-6 Last administered on 11/04/18at 03:56; Admin Dose 1 TAB; Start 11/03/18 at 10:00 Aspirin (Halfprin) 81 mg DAILY PO Last administered on 11/04/18at 08:45; Admin Dose 81 MG; Start 11/03/18 at 10:30 ANGELA CARY Nov 04, 2018 11:46
[2018-11-04] MEDS ORDERED: MAGNESIUM SULFATE 2 GM/50 ML 50 ML IVPB ONE (13:00)
--- NOTE | 2018-11-04 14:17 | CONS ---
Assessment/Plan Assessment/Plan Hospital Course (Demo Recall) Awake, looks comfortable no fevers Allergy: Penicillin, clindamycin Abx: Vanco Azactam Cancidas Physical examination: Chronically ill-appearing debilitated elderly woman. The patient is in no distress. Head atraumatic normocephalic. Neck is supple. Chest rise symmetrical, breath sounds with crackles. Heart: S1-S2. Abdomen soft bowel sounds hypoactive. Extremities with dependent edema Assessment: 1. Sepsis, likely 2 to recurrent UTI==> + C. albicans 2. Poss aspiration event 3. SZ disorder 4. Dysphagia/secretions retention 4. S/p UMBERTO 5. Non-ST elevation [place] 6. Atrial fibrillation 7. Encephalopathy Plan: Clinically improved, DC Vanco and aztreonam Consultation Date/Type/Reason Admit Date/Time Oct 30, 2018 at 22:59 Initial Consult Date Type of Consult id Requesting Provider: MICHELLE YBARRA PA-C Date/Time of Note DATE: 11/04/18 TIME: 14:16 Exam/Review of Systems Exam Vitals Vital Signs Date Temp Pulse Resp B/P (MAP) Pulse Ox O2 O2 Flow FiO2 Time Delivery Rate 11/04/18 81 12:00 11/04/18 98.3 16 135/66 98 Nasal 11:46 (89) Cannula 11/04/18 2.0 09:22 11/01/18 28 10:55 Intake and Output 11/03/18 11/03/18 11/04/18 1515:00 23:00 07:00 IntakeIntake Total 150 ml 960 ml 2510 ml OutputOutput Total 1300 ml 1650 ml BalanceBalance 150 ml -340 ml 860 ml Results Result Diagram: 11/04/18 0505 11/04/18 0503 Results 24hrs Laboratory Tests Test 11/04/18 00:33 11/04/18 05:03 11/04/18 05:05 Vancomycin Level Trough 13.9 Sodium Level 138 Potassium Level 4.1 Chloride Level 110 Carbon Dioxide Level 23 Anion Gap 5 Blood Urea Nitrogen 15 Creatinine 0.61 Est Glomerular Filtrat Rate mL/min > 60 Glucose Level 91 Calcium Level 8.8 Phosphorus Level 4.2 Magnesium Level 1.5 L White Blood Count 6.2 # Red Blood Count 2.39 L Hemoglobin 7.4 L Hematocrit 23.8 L Mean Corpuscular Volume 99.6 Mean Corpuscular Hemoglobin 31.0 Mean Corpuscular Hemoglobin Concent 31.1 L Red Cell Distribution Width 17.2 H Platelet Count 182 Mean Platelet Volume 11.2 H Immature Granulocytes % 11.100 H Neutrophils % Segmented Neutrophils % (Manual) 37 L Band Neutrophils % (Manual) 9 H Lymphocytes % Lymphocytes % (Manual) 31 Monocytes % Monocytes % (Manual) 10 Eosinophils % Eosinophils % (Manual) 2 Basophils % Basophils % (Manual) 1 Metamyelocytes % (manual) 4 H Myelocytes % (Manual) 5 H Promyelocytes % (Manual) 1 H Nucleated Red Blood Cells % 1 H Immature Granulocytes # 0.690 H Neutrophils # Neutrophils # (Manual) 2.3 Band Neutrophils # 0.5 Lymphocytes (Manual) 1.9 Lymphocytes # Monocytes # Monocytes # (Manual) 0.6 Eosinophils # Basophils # Basophils # (Manual) 0.0 Metamyelocytes # 0.2 H Myelocytes # 0.3 H Promyelocytes # 0.0 Nucleated Red Blood Cells # Platelet Estimate NORMAL Giant Platelets 2 H Polychromasia 2+ Anisocytosis 1+ Ovalocytes 1+ Medications Medication Current Medications Dextrose/Sodium Chloride 1,000 ml @ 100 mls/hr Q10H IV Last administered on 11/03/18 13:51; Admin Dose 100 MLS/HR; Start 10/31/18 at 00:45 IV Flush (NS 3 ml) 3 ml PER PROTOCOL IV ; Start 10/31/18 at 01:00 Ondansetron HCl (Zofran Inj) 4 mg Q6H PRN IV NAUSEA/VOMITING; Start 10/31/18 at 01:00 Ipratropium [place] (Atrovent 0.02% (Neb)) 0.5 mg Q2H RESP THERAPY PRN NEB SHORTNESS OF BREATH Last administered on 11/01/18 10:53; Admin Dose 0.5 MG; Start 10/31/18 at 01:00 Levalbuterol (Xopenex Neb) 0.63 mg Q2H RESP THERAPY PRN HHN sob, wheezing Last administered on 11/01/18 10:53; Admin Dose 0.63 MG; Start 10/31/18 at 01:00 Atorvastatin Calcium (Lipitor) 10 mg QHS PO Last administered on 11/03/18 20:2 5; Admin Dose 10 MG; Start 10/31/18 at 21:00 Divalproex Sodium (Depakote) 500 mg BID PO Last administered on 11/04/18 08:46; Admin Dose 500 MG; Start 10/31/18 at 09:00 Donepezil HCl (Aricept) 5 mg QHS PO Last administered on 11/03/18 20:26; Admin Dose 5 MG; Start 10/31/18 at 21:00 Gabapentin (Neurontin) 400 mg TID PO Last administered on 11/04/18 12:31; Admin Dose 400 MG; Start 10/31/18 at 09:00 Levetiracetam (Keppra) 500 mg BID PO Last administered on 11/04/18 08:47; Admin Dose 500 MG; Start 10/31/18 at 09:00 Quetiapine Fumarate (Seroquel) 200 mg HS PO Last administered on 11/03/18 20: 27; Admin Dose 200 MG; Start 10/31/18 at 21:00 Trazodone HCl (Desyrel) 100 mg QHS PO Last administered on 11/03/18 20:27; Admin Dose 100 MG; Start 10/31/18 at 21:00 Aztreonam 50 ml @ 100 mls/hr Q12H IVPB Last administered on 11/04/18 08:44; Admin Dose 100 MLS/HR; Start 10/31/18 at 09:00 Metoprolol Tartrate (Lopressor) 25 mg BID PO Last administered on 11/04/18 08:47; Admin Dose 25 MG; Start 10/31/18 at 21:00 Amiodarone HCl (Cordarone) 200 mg BID PO Last administered on 11/04/18 08:47; Admin Dose 200 MG; Start 10/31/18 at 21:00 Enoxaparin Sodium (Lovenox) 40 mg DAILY SC Last administered on 11/04/18 08:59; Admin Dose 40 MG; Start 11/01/18 at 09:00 Diltiazem HCl (Cardizem Iv) 5 mg Q3 PRN IV HR>110 Hold SBP<100; Start 10/31/18 at 14:30 Caspofungin 50 mg/ Sodium Chloride 250 ml @ 250 mls/hr Q24H IVPB Last administered on 11/03/18 15:30; Admin Dose 250 MLS/HR; Start 11/02/18 at 14:00 Vancomycin/Sodium Chloride 250 ml @ 125 mls/hr Q12H IVPB Last administered on 11/04/18at 12:27; Admin Dose 125 MLS/HR; Start 11/02/18 at 01:00 Acetaminophen (Tylenol Tab) 650 mg Q6H PRN PO MILD PAIN(1-3)OR ELEVATED TEMP; Start 11/03/18 at 10:00 Acetaminophen/ Hydrocodone Bitart ([place] (5/325)) 1 tab Q6H PRN PO MODERATE PAIN LEVEL 4-6 Last administered on 11/04/18at 12:27; Admin Dose 1 TAB; Start 11/03/18 at 10:00 Aspirin (Halfprin) 81 mg DAILY PO Last administered on 11/04/18at 08:45; Admin Do se 81 MG; Start 11/03/18 at 10:30 Magnesium Sulfate 50 ml @ 25 mls/hr ONCE ONCE IVPB ; Start 11/04/18 at 13:00; Stop 11/04/18 at 14:59 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
[2018-11-04] MEDS: CASPOFUNGIN 50 MG in SOD CHLORIDE 0.9% 250 ML IVPB SCH (14:58)
--- NOTE | 2018-11-04 17:48 | PN ---
Date/Time of Note Date/Time of Note DATE: 11/04/18 TIME: 17:47 Assessment/Plan VTE Prophylaxis Risk score (from Ns)>0 risk: 7 SCD applied (from Ns): Yes Pharmacological prophylaxis: NA/contraindicated Pharm contraindication: low risk/ambulating Lines/Catheters IV [facility]from [facility] Peripheral IV Urinary Cath still in place: Yes Reason Cath still needed: other (indicate) (not needed) Assessment/Plan Assessment/Plan 67-year-old female coming in with signs of septic shock, likely secondary to urinary tract infection and pneumonia, elevated troponins, acute renal insufficiency, initially intubated requiring pressor support, now extubated and out of ICU. Also presented with atrial fibrillation with rapid ventricular response, now in normal sinus rhythm. #Sepsis: Likely secondary to UTI, possible upper respiratory infection as well. Positive Bhumika results on the urine culture as well -Continue treatment for E. coli UTI and bacteremia, including antibacterials and antifungal med, follow-up ID recommendations # respiratory distress-on 2-3 L oxygen with good saturations. -Continue current broad-spectrum antibiotics, Tylenol p.r.n. pain and fevers, and follow-up ID recommendations -DuoNeb's as needed #Seizure disorder-again diagnosed on her last admission recently, morning of 10/08 had whole body twitching concerning for seizures; got Ativan then Versed. Again on 10/11 had a similar episode broken with Ativan-10/08/18 EEG appears to have localized lesion but CT head is negative. Repeat EEG from 10/15/18 results noted, neuro following. - Continue keppra - Holding versed, but continue Ativan as needed - Low-dose Seroquel as needed for agitation # NSTEMI - Unclear if this is true non-ST elevation myocardial infarction versus demand ischemia- s/p heparin gtt earlier. Was treated for this with Lovenox twi ce daily, but this was stopped a few days ago secondary to oral bleeding - Continue Lipitor. - Follow-up cardiology recommendations - continue medical management #A fib with RVR-no events overnight. -Monitor heart rate for now, follow up cardiology recommendations -Continue metoprolol and amiodarone p.o. -Aspirin per cardiology recommendations, again Lovenox was held secondary to oral bleeding a few days ago. # Renal insufficiency -resolved -Monitor # Hypothyroidism - Continue current thyroid medicines. # History of dementia. - Continue Aricept for now. - PEG placement 10/25-PEG feeds # History of high cholesterol. - Cont statin #Anemia: Hemoglobin again lower today, 7.4. No signs of any bleeding per -We will repeat H&H, if still low will give PRBC transfusion # Gastrointestinal prophylaxis- H2 panda. # Deep venous thrombosis prophylaxis- SCDs Dispo: Likely back to correction facility in the next 24-48 hours if heart rate remains stable, hemoglobin remained stable, and treatment of infection improves. Result Diagram: 11/04/18 0505 11/04/18 0503 Subjective 24 Hr Interval Summary Free Text/Dictation No acute overnight events. Patient moaning, able to move arms slightly. Exam/Review of Systems Exam Vitals Vital Signs Date Temp Pulse Resp B/P (MAP) Pulse Ox O2 O2 Flow FiO2 Time Delivery Rate 11/04/18 97.6 77 18 118/78 97 Nasal 15:40 (91) Cannula 11/04/18 2.0 09:22 11/01/18 28 10:55 Intake and Output 11/03/18 11/03/18 11/04/18 1515:00 23:00 07:00 IntakeIntake Total 150 ml 960 ml 2510 ml OutputOutput Total 1300 ml 1650 ml BalanceBalance 150 ml -340 ml 860 ml Exam GENERAL: lying in bed, opens eyes HEENT: Moist mucous membranes, dried blood noted in the pharynx area NECK: Supple, no thyromegaly. LUNGS: Mechanical breath sounds equal bilaterally. CARDIOVASCULAR: S1, S2 heard. No rubs or gallops. ABDOMEN: Soft, nontender, nondistended. Normal bowel sounds. G tube in place. No rebound or guarding. MUSCULOSKELETAL: No lower extremity edema bilaterally. Results Results 24hrs Laboratory Tests Test 11/04/18 00:33 11/04/18 05:03 11/04/18 05:05 Vancomycin Level Trough 13.9 Sodium Level 138 Potassium Level 4.1 Chloride Level 110 Carbon Dioxide Level 23 Anion Gap 5 Blood Urea Nitrogen 15 Creatinine 0.61 Est Glomerular Filtrat Rate mL/min > 60 Glucose Level 91 Calcium Level 8.8 Phosphorus Level 4.2 Magnesium Level 1.5 L White Blood Count 6.2 # Red Blood Count 2.39 L Hemoglobin 7.4 L Hematocrit 23.8 L Mean Corpuscular Volume 99.6 Mean Corpuscular Hemoglobin 31.0 Mean Corpuscular Hemoglobin Concent 31.1 L Red Cell Distribution Width 17.2 H Platelet Count 182 Mean Platelet Volume 11.2 H Immature Granulocytes % 11.100 H Neutrophils % Segmented Neutrophils % (Manual) 37 L Band Neutrophils % (Manual) 9 H Lymphocytes % Lymphocytes % (Manual) 31 Monocytes % Monocytes % (Manual) 10 Eosinophils % Eosinophils % (Manual) 2 Basophils % Basophils % (Manual) 1 Metamyelocytes % (manual) 4 H Myelocytes % (Manual) 5 H Promyelocytes % (Manual) 1 H Nucleated Red Blood Cells % 1 H Immature Granulocytes # 0.690 H Neutrophils # Neutrophils # (Manual) 2.3 Band Neutrophils # 0.5 Lymphocytes (Manual) 1.9 Lymphocytes # Monocytes # Monocytes # (Manual) 0.6 Eosinophils # Basophils # Basophils # (Manual) 0.0 Metamyelocytes # 0.2 H Myelocytes # 0.3 H Promyelocytes # 0.0 Nucleated Red Blood Cells # Platelet Estimate NORMAL Giant Platelets 2 H Polychromasia 2+ Anisocytosis 1+ Ovalocytes 1+ Medications Medication Current Medications Dextrose/Sodium Chloride 1,000 ml @ 100 mls/hr Q10H IV Last administered on 11/03/18 13:51; Admin Dose 100 MLS/HR; Start 10/31/18 at 00:45 IV Flush (NS 3 ml) 3 ml PER PROTOCOL IV ; Start 10/31/18 at 01:00 Ondansetron HCl (Zofran Inj) 4 mg Q6H PRN IV NAUSEA/VOMITING; Start 10/31/18 at 01:00 Ipratropium [place] (Atrovent 0.02% (Neb)) 0.5 mg Q2H RESP THERAPY PRN NEB SHORTNESS OF BREATH Last administered on 11/01/18 10:53; Admin Dose 0.5 MG; Start 10/31/18 at 01:00 Levalbuterol (Xopenex Neb) 0.63 mg Q2H RESP THERAPY PRN HHN sob, wheezing Last administered on 11/01/18 10:53; Admin Dose 0.63 MG; Start 10/31/18 at 01:00 Atorvastatin Calcium (Lipitor) 10 mg QHS PO Last administered on 11/03/18 20:25; Admin Dose 10 MG; Start 10/31/18 at 21:00 Divalproex Sodium (Depakote) 500 mg BID PO Last administered on 11/04/18 08:46; Admin Dose 500 MG; Start 10/31/18 at 09:00 Donepezil HCl (Aricept) 5 mg QHS PO Last administered on 11/03/18 20:26; Admin Dose 5 MG; Start 10/31/18 at 21:00 Gabapentin (Neurontin) 400 mg TID PO Last administered on 11/04/18 12:31; Admin Dose 400 MG; Start 10/31/18 at 09:00 Levetiracetam (Keppra) 500 mg BID PO Last administered on 11/04/18 08:47; Admin Dose 500 MG; Start 10/31/18 at 09:00 Quetiapine Fumarate (Seroquel) 200 mg HS PO Last administered on 11/03/18 20:27; Admin Dose 200 MG; Start 10/31/18 at 21:00 Trazodone HCl (Desyrel) 100 mg QHS PO Last administered on 11/03/18 20:27; Admin Dose 100 MG; Start 10/31/18 at 21:00 Metoprolol Tartrate (Lopressor) 25 mg BID PO Last administered on 11/04/18 08:47; Admin Dose 25 MG; Start 10/31/18 at 21:00 Amiodarone HCl (Cordarone) 200 mg BID PO Last administered on 11/04/18 08:47; Admin Dose 200 MG; Start 10/31/18 at 21:00 Enoxaparin Sodium (Lovenox) 40 mg DAILY SC Last administered on 11/04/18 08:59; Admin Dose 40 MG; Start 11/01/18 at 09:00 Diltiazem HCl (Cardizem Iv) 5 mg Q3 PRN IV HR>110 Hold SBP<100; Start 10/31/18 at 14:30 Caspofungin 50 mg/ Sodium Chloride 250 ml @ 250 mls/hr Q24H IVPB Last administered on 11/04/18 14:58; Admin Dose 250 MLS/HR; Start 11/02/18 at 14:00 Acetaminophen (Tylenol Tab) 650 mg Q6H PRN PO MILD PAIN(1-3)OR ELEVATED TEMP; Start 11/03/18 at 10:00 Acetaminophen/ Hydrocodone Bitart ([place] (5/325)) 1 tab Q6H PRN PO MODERATE [place] N LEVEL 4-6 Last administered on 11/04/18at 12:27; Admin Dose 1 TAB; Start 11/03/18 at 10:00 Aspirin (Halfprin) 81 mg DAILY PO Last administered on 11/04/18at 08:45; Admin Dose 81 MG; Start 11/03/18 at 10:30 ANGELA MOSQUERA MD Nov 04, 2018 17:48
[2018-11-04] MEDS: ATORVASTATIN 10 MG TAB PO SCH (21:59)
[2018-11-04] MEDS: QUETIAPINE 100 MG TAB PO SCH (22:00)
[2018-11-04] MEDS: traZODone 100 MG TAB PO SCH (22:01)
[2018-11-04] MEDS: DONEPEZIL 5 MG TAB PO SCH (22:01)
[2018-11-05] VITALS (10 sets, daily range): BP systolic 114–140; BP diastolic 67–78; PULSE 66–80; RESP 18–24
[2018-11-05] MEDS: GABAPENTIN 400 MG CAP PO SCH ×2 (08:23→13:28)
[2018-11-05] MEDS: ASPIRIN (EC) 81 MG TAB PO SCH (08:23)
[2018-11-05] MEDS: LEVETIRACETAM 500 MG TAB PO SCH (08:23)
[2018-11-05] MEDS: DIVALPROEX (EC) 500 MG TAB PO SCH (08:23)
[2018-11-05] MEDS: AMIODARONE 200 MG TAB PO SCH (08:24)
[2018-11-05] MEDS: METOPROLOL 25 MG TAB PO SCH (08:25)
[2018-11-05] MEDS: ENOXAPARIN 40 MG/0.4 ML SYG SC SCH (09:00)
[2018-11-05] MEDS ORDERED: BALSAM PERU/CASTOR OIL 60 GM TUBE TOP SCH (09:00)
--- NOTE | 2018-11-05 09:04 | CONS ---
Consult Date/Type/Reason Admit Date/Time Oct 30, 2018 at 22:59 Initial Consult Date Requesting Provider: MICHELLE YBARRA PA-C Date/Time of Note DATE: 11/05/18 TIME: 09:02 Subjective NO acute events - pt stable - no CP - intermittent agitation - no focal ectopy on tele now. ROS: No fever, no chills, no nausea, no vomiting, no diarrhea/constipation - per nurse Objective Vitals Vital Signs Date Temp Pulse Resp B/P (MAP) Pulse Ox O2 O2 Flow FiO2 Time Delivery Rate 11/05/18 2.0 08:43 11/05/18 78 08:14 11/05/18 97.8 24 140/70 96 Nasal 07:52 (93) Cannula 11/01/18 28 10:55 Intake and Output 11/04/18 11/04/18 11/05/18 1515:00 23:00 07:00 IntakeIntake Total 1180 ml 1664 ml OutputOutput Total 1700 ml 5 ml BalanceBalance -520 ml 1659 ml Exam General: WN/WD/NAD, AOx comfortable, eyes open HEENT: Unicetric/atraumatic/EOMI (does not follow commands) NECK: JVD elevated, no thyromegaly Lymph: no lymphadenopathy HEART: regular with no S3, II/ systolic murmur at apex LUNGS: Coarse sounds ABD: soft, NT, ND, +BS : Intact Neuro: non focal SKIN: chronic changes EXT: trace edema Results/Medications Result Diagram: 11/04/18 0505 11/04/18 0503 Home Meds Active Scripts Vancomycin Hcl (Vancocin) 1 Gm Soln, 500 MG IV Q12 for 7 Days, VIAL 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 [employer] SENIOR SERGEANT 08/31/18 Reported Medications Donepezil* (Donepezil*) 5 Mg Tablet, 5 MG PO QHS, #30 TAB 08/28/18 Divalproex Sodium* (Depakote*) 500 Mg Tablet.dr, 500 MG PO BID, #120 TAB 08/28/18 Docusate Sodium* (Colace*) 100 Mg Capsule, 100 MG PO BID PRN for CONSTIPATION, #60 CAP 08/28/18 Atorvastatin Calcium (Atorvastatin Calcium) 10 Mg Tablet, 10 MG PO QHS, #30 TAB 08/28/18 Lorazepam* (Lorazepam*) 1 Mg Tablet, 1 MG PO BID PRN for ANXIETY, #30 TAB 08/28/18 Lactulose* (Lactulose*) 20 Gm/30 Ml Solution, 20 GM PO TID PRN for CONSTIPATION, ML 08/28/18 Trazodone Hcl* (Trazodone Hcl*) 100 Mg Tablet, 100 MG PO QHS, #30 TAB 08/28/18 Quetiapine Fumarate* (Seroquel*) 200 Mg Tablet, 200 MG PO HS, #30 TAB 08/28/18 Sennosides* (Senna Lax*) 8.6 Mg Tablet, 2 TAB PO QHS PRN for CONSTIPATION, TAB 08/28/18 Multivitamins* (Theragran*) 1 Tab Tab, 1 TAB PO DAILY, TAB 08/28/18 Polyethylene Glycol* (Miralax*) 17 Gm Powd.pack, 17 GM PO BID, #60 PACKET 08/28/18 Metoprolol Tartrate* (Lopressor*) 25 Mg Tab, 12.5 MG PO DAILY, #60 TAB HOLD IF SBP<115 OR HR<60 08/28/18 Levetiracetam* (Keppra*) 500 Mg Tablet, 500 MG PO BID, TAB 08/28/18 Gabapentin* (Gabapentin*) 400 Mg Capsule, 400 MG PO TID, #90 CAP 08/28/18 Phenylephrine HCl/Kaleva Butter* (Preparation H* Suppository) 1 Each Supp.rect, 1 EACH RI DAILY PRN for CONSTIPATION, SUPP.RECT 08/28/18 Mineral Oil* (Fleet* Mineral Oil Enema) 133 Ml Oil, 133 ML RI DAILY PRN for CONSTIPATION, ENEMA 08/28/18 Acetaminophen* (Acetaminophen*) 650 Mg Tablet, 650 MG PO DAILY PRN for PAIN AND OR ELEVATED TEMP, #30 TAB 08/28/18 Bisacodyl* (Bisacodyl*) 5 Mg Tablet.dr, 10 MG PO DAILY PRN for CONSTIPATION, TAB 08/28/18 Discontinued Reported Medications Levothyroxine Sodium* (Levothyroxine Sodium*) 50 Mcg Tablet, 50 MCG PO BEFORE B REAKFAST, #30 TAB 08/28/18 Medications Current Medications Dextrose/Sodium Chloride 1,000 ml @ 100 mls/hr Q10H IV Last administered on 11/04/18 22:02; Admin Dose 100 MLS/HR; Start 10/31/18 at 00:45 IV Flush (NS 3 ml) 3 ml PER PROTOCOL IV ; Start 10/31/18 at 01:00 Ondansetron HCl (Zofran Inj) 4 mg Q6H PRN IV NAUSEA/VOMITING; Start 10/31/18 at 01:00 Ipratropium [place] (Atrovent 0.02% (Neb)) 0.5 mg Q2H RESP THERAPY PRN NEB SHORTNESS OF BREATH Last administered on 11/01/18 10:53; Admin Dose 0.5 MG; Start 10/31/18 at 01:00 Levalbuterol (Xopenex Neb) 0.63 mg Q2H RESP THERAPY PRN HHN sob, wheezing Last administered on 11/01/18 10:53; Admin Dose 0.63 MG; Start 10/31/18 at 01:00 Atorvastatin Calcium (Lipitor) 10 mg QHS PO Last administered on 11/04/18 21:59; Admin Dose 10 MG; Start 10/31/18 at 21:00 Divalproex Sodium (Depakote) 500 mg BID PO Last administered on 11/05/18 08:23; Admin Dose 500 MG; Start 10/31/18 at 09:00 Donepezil HCl (Aricept) 5 mg QHS PO Last administered on 11/04/18 22:01; Admin Dose 5 MG; Start 10/31/18 at 21:00 Gabapentin (Neurontin) 400 mg TID PO Last administered on 11/05/18 08:23; Admin Dose 400 MG; Start 10/31/18 at 09:00 Levetiracetam (Keppra) 500 mg BID PO Last administered on 11/05/18 08:23; Admin Dose 500 MG; Start 10/31/18 at 09:00 Quetiapine Fumarate (Seroquel) 200 mg HS PO Last administered on 11/04/18 22:00; Admin Dose 200 MG; Start 10/31/18 at 21:00 Trazodone HCl (Desyrel) 100 mg QHS PO Last administered on 11/04/18 22:01; Admin Dose 100 MG; Start 10/31/18 at 21:00 Metoprolol Tartrate (Lopressor) 25 mg BID PO Last administered on 11/05/18 08:25; Admin Dose 25 MG; Start 10/31/18 at 21:00 Amiodarone HCl (Cordarone) 200 mg BID PO Last administered on 11/05/18 08:24; Admin Dose 200 MG; Start 10/31/18 at 21:00 Enoxaparin Sodium (Lovenox) 40 mg DAILY SC Last administered on 11/04/18 08:59; Admin Dose 40 MG; Start 11/01/18 at 09:00 Diltiazem HCl (Cardizem Iv) 5 mg Q3 PRN IV HR>110 Hold SBP<100; Start 10/31/18 at 14:30 Caspofungin 50 mg/ Sodium Chloride 250 ml @ 250 mls/hr Q24H IVPB Last administered on 11/04/18 14:58; Admin Dose 250 MLS/HR; Start 11/02/18 at 14:00 Acetaminophen (Tylenol Tab) 650 mg Q6H PRN PO MILD PAIN(1-3)OR ELEVATED TEMP; Start 11/03/18 at 10:00 Acetaminophen/ Hydrocodone Bitart ([place] (5/325)) 1 tab Q6H PRN PO MODERATE PAIN LEVEL 4-6 Last administered on 11/04/18 12:27; Admin Dose 1 TAB; Start 11/03/18 at 10:00 Aspirin (Halfprin) 81 mg DAILY PO Last administered on 11/05/18 08:23; Admin Dose 81 MG; Start 11/03/18 at 10:30 Assessment/Plan Hospital Course (Demo Recall) 1. Paroxysmal atrial fibrillation with rapid ventricular response with patient previously being on Lovenox and then developed bleeding on that and therefore was discontinued due to bleeding. The patient was initially placed on aspirin, which can be continued. Converted to sinus now. RATE CONTROLLED in sinus now. Remains in sinus. 2. Abnormal electrocardiogram with nonspecific ST-T wave abnormalities, assess for acute coronary syndrome- r/o IN, no intervention planned. Treated. 3. History of recent [id number] myocardial infarction- on meds. NO evidence of ischemia now Treated. 4. Fevers - Rx with anti-bx, no new fevers. Resolved. 5. Urinary tract infection- no fevers, anti-bx. 6. Dyslipidemia. 7. Seizure disorder- stable. 8. Hypothyroidism. 9. Encephalopathy. 10. Anemia requiring transfusions previously - H/H trending down to 7.4. Will monitor now. ZANE JACOME MD Nov 05, 2018 09:04
[2018-11-05] MEDS: HYDROCODONE/APAP (5/325) TAB PO PRN (10:18)
[2018-11-05] MEDS: DEXTROSE 5%-0.45% NACL 1,000 ML IV SCH (10:57)
[2018-11-05] MEDS: CASPOFUNGIN 50 MG in SOD CHLORIDE 0.9% 250 ML IVPB SCH (13:28)
--- NOTE | 2018-11-05 14:22 | CONS ---
Assessment/Plan Assessment/Plan Hospital Course (Demo Recall) Awake, looks comfortable no fevers Allergy: Penicillin, clindamycin Abx: Cancidas Physical examination: Chronically ill-appearing debilitated elderly woman. The patient is in no distress. Head atraumatic normocephalic. Neck is supple. Chest rise symmetrical, breath sounds with crackles. Heart: S1-S2. Abdomen soft bowel sounds hypoactive. Extremities with dependent edema Assessment: 1. Status post sepsis, likely 2 to recurrent UTI==> + C. albicans 2. Poss aspiration event 3. SZ disorder 4. Dysphagia/secretions retention 4. S/p UMBERTO 5. Non-ST elevation NM 6. Atrial fibrillation 7. Encephalopathy, resolving Plan: Remains stable, continue present care, aspiration precaution Consultation Date/Type/Reason Admit Date/Time Oct 30, 2018 at 22:59 Initial Consult Date Type of Consult id Requesting Provider: MICHELLE YBARRA PA-C Date/Time of Note DATE: 11/05/18 TIME: 14:21 Exam/Review of Systems Exam Vitals Vital Signs Date Temp Pulse Resp B/P (MAP) Pulse Ox O2 O2 Flow FiO2 Time Delivery Rate 11/05/18 77 12:10 11/05/18 98.1 18 136/78 96 Nasal 11:46 (97) Cannula 11/05/18 2.0 08:43 11/01/18 28 10:55 Intake and Output 11/04/18 11/04/18 11/05/18 1515:00 23:00 07:00 IntakeIntake Total 1180 ml 1664 ml OutputOutput Total 1700 ml 5 ml BalanceBalance -520 ml 1659 ml Results Result Diagram: 11/04/18 0505 11/04/18 0503 Medications Medication Current Medications Dextrose/Sodium Chloride 1,000 ml @ 100 mls/hr Q10H IV Last administered on 11/05/18at 10:57; Admin Dose 100 MLS/HR; Start 10/31/18 at 00:45 IV Flush (NS 3 ml) 3 ml PER PROTOCOL IV ; Start 10/31/18 at 01:00 Ondansetron HCl (Zofran Inj) 4 mg Q6H PRN IV NAUSEA/VOMITING; Start 10/31/18 at 01:00 Ipratropium [place] (Atrovent 0.02% (Neb)) 0.5 mg Q2H RESP THERAPY PRN NEB SHORTNESS OF BREATH Last administered on 11/01/18 10:53; Admin Dose 0.5 MG; Start 10/31/18 at 01:00 Levalbuterol (Xopenex Neb) 0.63 mg Q2H RESP THERAPY PRN HHN sob, wheezing Last administered on 11/01/18 10:53; Admin Dose 0.63 MG; Start 10/31/18 at 01:00 Atorvastatin Calcium (Lipitor) 10 mg QHS PO Last administered on 11/04/18 21:59; Admin Dose 10 MG; Start 10/31/18 at 21:00 Divalproex Sodium (Depakote) 500 mg BID PO Last administered on 11/05/18 08:23; Admin Dose 500 MG; Start 10/31/18 at 09:00 Donepezil HCl (Aricept) 5 mg QHS PO Last administered on 11/04/18 22:01; Admin Dose 5 MG; Start 10/31/18 at 21:00 Gabapentin (Neurontin) 400 mg TID PO Last administered on 11/05/18 13:28; Admin Dose 400 MG; Start 10/31/18 at 09:00 Levetiracetam (Keppra) 500 mg BID PO Last administered on 11/05/18 08:23; Admin Dose 500 MG; Start 10/31/18 at 09:00 Quetiapine Fumarate (Seroquel) 200 mg HS PO Last administered on 11/04/18 22:00; Admin Dose 200 MG; Start 10/31/18 at 21:00 Trazodone HCl (Desyrel) 100 mg QHS PO Last administered on 11/04/18 22:01; Admin Dose 100 MG; Start 10/31/18 at 21:00 Metoprolol Tartrate (Lopressor) 25 mg BID PO Last administered on 11/05/18 08:25; Admin Dose 25 MG; Start 10/31/18 at 21:00 Amiodarone HCl (Cordarone) 200 mg BID PO Last administered on 11/05/18 08:24; Admin Dose 200 MG; Start 10/31/18 at 21:00 Enoxaparin Sodium (Lovenox) 40 mg DAILY SC Last administered on 11/05/18 09:00; Admin Dose 40 MG; Start 11/01/18 at 09:00 Diltiazem HCl (Cardizem Iv) 5 mg Q3 PRN IV HR>110 Hold SBP<100; Start 10/31/18 at 14:30 Caspofungin 50 mg/ Sodium Chloride 250 ml @ 250 mls/hr Q24H IVPB Last administered on 11/05/18at 13:28; Admin Dose 250 MLS/HR; Start 11/02/18 at 14:00 Acetaminophen (Tylenol Tab) 650 mg Q6H PRN PO MILD PAIN(1-3)OR ELEVATED TEMP; Start 11/03/18 at 10:00 Acetaminophen/ Hydrocodone Bitart ([place] (5/325)) 1 tab Q6H PRN PO MODERATE PAIN LEVEL 4-6 Last administered on 11/05/18at 10:18; Admin Dose 1 TAB; Start 11/03/18 at 10:00 Aspirin (Halfprin) 81 mg DAILY PO Last administered on 11/05/18at 08:23; Admin Dose 81 MG; Start 11/03/18 at 10:30 MARKOS BRADY NP Nov 05, 2018 14:22
--- NOTE | 2018-11-05 16:52 | DS ---
Date/Time of Note Date/Time of Note DATE: 11/05/18 TIME: 16:51 Discharge Summary Admission/Discharge Info Admit Date/Time Oct 30, 2018 at 22:59 Discharge Date/Time Nov 05, 2018 Discharge Diagnosis UTI Patient Condition: Fair Hx of Present Illness Patient is a 67-year-old female with history of dementia, seizure, hypertension, A-fib, dyslipidemia, hypothyroidism, recent G-tube, recent hospitalization for septic shock. Shunt was sent from SNF for fever and hypoxia. Patient was just discharged from here yesterday after she had a prolonged hospitalization. At that time she was mainly treated for a septic shock secondary to E. coli UTI and bacteremia. She has severe dementia. A G-tube was placed about a week ago. During that hospitalization, her CODE STATUS has been changed to DNR. When she presented to ER, she was febrile with temperature of 102.4. She was in rapid A. fib was documented heart rate as high as in the 150s. Oxygen saturation initially was slow was in the mid 80s. UA consistent with UTI. Chest x-ray without acute findings. Hospital Course She was given 48 hours of empiric antibiotics for suspected UTI. Urine cultures negative, only grew out marily. Removed Piña catheter. No fevers since admission, over 72 hours. The patient wakes up and has a strong cry. Will discharge back to SNF. Home Meds Active Scripts Vancomycin Hcl (Vancocin) 1 Gm Soln, 500 MG IV Q12 for 7 Days, VIAL 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 PUBLIC WELFARE DIRECTOR 08/31/18 Aztreonam (AZTREONAM) 1 Gm Vial, 1 GM IV* Q12 for 7 Days, VIAL 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 PUBLIC WELFARE DIRECTOR 08/31/18 Reported Medications Donepezil* (Donepezil*) 5 Mg Tablet, 5 MG PO QHS, #30 TAB 08/28/18 Divalproex Sodium* (Depakote*) 500 Mg Tablet.dr, 500 MG PO BID, #120 TAB 08/28/18 Docusate Sodium* (Colace*) 100 Mg Capsule, 100 MG PO BID PRN for CONSTIPATION, #60 CAP 08/28/18 Atorvastatin Calcium (Atorvastatin Calcium) 10 Mg Tablet, 10 MG PO QHS, #30 TAB 08/28/18 Lorazepam* (Lorazepam*) 1 Mg Tablet, 1 MG PO BID PRN for ANXIETY, #30 TAB 08/28/18 Lactulose* (Lactulose*) 20 Gm/30 Ml Solution, 20 GM PO TID PRN for CONSTIPATION, ML 08/28/18 Trazodone Hcl* (Trazodone Hcl*) 100 Mg Tablet, 100 MG PO QHS, #30 TAB 08/28/18 Quetiapine Fumarate* (Seroquel*) 200 Mg Tablet, 200 MG PO HS, #30 TAB 08/28/18 Sennosides* (Senna Lax*) 8.6 Mg Tablet, 2 TAB PO QHS PRN for CONSTIPATION, TAB 08/28/18 Multivitamins* (Theragran*) 1 Tab Tab, 1 TAB PO DAILY, TAB 08/28/18 Polyethylene Glycol* (Miralax*) 17 Gm Powd.pack, 17 GM PO BID, #60 PACKET 08/28/18 Metoprolol Tartrate* (Lopressor*) 25 Mg Tab, 12.5 MG PO DAILY, #60 TAB HOLD IF SBP<115 OR HR<60 08/28/18 Levetiracetam* (Keppra*) 500 Mg Tablet, 500 MG PO BID, TAB 08/28/18 Gabapentin* (Gabapentin*) 400 Mg Capsule, 400 MG PO TID, #90 CAP 08/28/18 Phenylephrine HCl/[place] Butter* (Preparation H* Suppository) 1 Each Supp.rect, 1 EACH PA DAILY PRN for CONSTIPATION, SUPP.RECT 08/28/18 Mineral Oil* (Fleet* Mineral Oil Enema) 133 Ml Oil, 133 ML PA DAILY PRN for CONSTIPATION, ENEMA 08/28/18 Acetaminophen* (Acetaminophen*) 650 Mg Tablet, 650 MG PO DAILY PRN for PAIN AND OR ELEVATED TEMP, #30 TAB 08/28/18 Bisacodyl* (Bisacodyl*) 5 Mg Tablet.dr, 10 MG PO DAILY PRN for CONSTIPATION, TAB 08/28/18 Discontinued Reported Medications Levothyroxine Sodium* (Levothyroxine Sodium*) 50 Mcg Tablet, 50 MCG PO BEFORE BREAKFAST, #30 TAB 08/28/18 Primary Care Provider Angelita Stone MD Time spent on discharge: > 30 minutes ANGELA MOSQUERA MD Nov 05, 2018 16:52
== END 2018-11-05 18:36 | DRG 871 ==
LOC: E/R 22:23 → 6WM 22:59 → EDBEDREQSVC 10-31 03:17 → 6WM 11-04 01:58
PROVIDERS: ADMIT Internal Medicine; ATTEND Internal Medicine
DX: A41.9 Sepsis, unspecified organism (principal); J18.9 Pneumonia, unspecified organism; R65.21 Severe sepsis with septic shock; J96.90 Respiratory failure, unspecified, unspecified whether with hypoxia or hypercapnia; I21.4 Non-ST elevation (NSTEMI) myocardial infarction; J69.0 Pneumonitis due to inhalation of food and vomit; N39.0 Urinary tract infection, site not specified; N17.9 Acute kidney failure, unspecified; G93.40 Encephalopathy, unspecified; F03.90 Unspecified dementia, unspecified severity, without behavioral disturbance, psychotic disturbance, mood disturbance, and anxiety; E03.9 Hypothyroidism, unspecified; I48.91 Unspecified atrial fibrillation; I48.2 Chronic atrial fibrillation; E78.5 Hyperlipidemia, unspecified; G40.909 Epilepsy, unspecified, not intractable, without status epilepticus; D64.9 Anemia, unspecified; N18.9 Chronic kidney disease, unspecified; R13.10 Dysphagia, unspecified; I12.9 Hypertensive chronic kidney disease with stage 1 through stage 4 chronic kidney disease, or unspecified chronic kidney disease
CPT/HCPCS: 36415; 36600; 71045; 80048; 80053; 80202; 81001; 82270; 82803; 83605; 83735; 84100; 84439; 84443; 84484; 85014; 85018; 85025; 85610; 85730; 87045; 87081; 87086; 93005; 94664; 96374; J1644; J1650; J3370; J3475; J7030; J7042; J7050

== ENCOUNTER 2018-11-08 09:58 | Emergency (ER) | payer MEDICARE, MEDICAID ==
[~2018-11-08] VITALS: Ht 180.3 cm; Wt 70.0 kg
[~2018-11-08 09:58] MED LIST changes: -LEVO50TA7 PO
[2018-11-08 10:10] VITALS: BP 159/106; PULSE 90; RESP 20; Ht 180.3 cm; Wt 70.0 kg
--- NOTE | 2018-11-08 10:26 | ERD ---
ER Documentation Chief Complaint Chief Complaint gtube replacement, fell out of bed HPI 68-year-old female history of chronic encephalopathy and dementia who presents from [facility] facility. The initial report was that the patient had a G- tube that fell out. However EMS reports the facility also noted that the patient may have fallen out of bed. History is very limited. The patient has chronic dementia and cannot provide history. No obvious evidence of trauma. Remainder of HPI is very limited. Patient arrives with a 20 [place] G-tube in a plastic bag, nothing within the stoma. ROS Chronic dementia, limited Medications Home Meds Active Scripts Vancomycin Hcl (Vancocin) 1 Gm Soln, 500 MG IV Q12 for 7 Days, VIAL Prov:NUGENTALEN V. RESIDENTIAL LIVING ASSISTANT 08/31/18 Aztreonam (AZTREONAM) 1 Gm Vial, 1 GM IV* Q12 for 7 Days, VIAL Prov:NUGENTANA CRISTINAA V. RESIDENTIAL LIVING ASSISTANT 08/31/18 Reported Medications Donepezil* (Donepezil*) 5 Mg Tablet, 5 MG PO QHS, #30 TAB 08/28/18 Divalproex Sodium* (Depakote*) 500 Mg Tablet.dr, 500 MG PO BID, #120 TAB 08/28/18 Docusate Sodium* (Colace*) 100 Mg Capsule, 100 MG PO BID PRN for CONSTIPATION, #60 CAP 08/28/18 Atorvastatin Calcium (Atorvastatin Calcium) 10 Mg Tablet, 10 MG PO QHS, #30 TAB 08/28/18 Lorazepam* (Lorazepam*) 1 Mg Tablet, 1 MG PO BID PRN for ANXIETY, #30 TAB 08/28/18 Lactulose* (Lactulose*) 20 Gm/30 Ml Solution, 20 GM PO TID PRN for CONSTIPATION, ML 08/28/18 Trazodone Hcl* (Trazodone Hcl*) 100 Mg Tablet, 100 MG PO QHS, #30 TAB 08/28/18 Quetiapine Fumarate* (Seroquel*) 200 Mg Tablet, 200 MG PO HS, #30 TAB 08/28/18 Sennosides* (Senna Lax*) 8.6 Mg Tablet, 2 TAB PO QHS PRN for CONSTIPATION, TAB 08/28/18 Multivitamins* (Theragran*) 1 Tab Tab, 1 TAB PO DAILY, TAB 08/28/18 Polyethylene Glycol* (Miralax*) 17 Gm Powd.pack, 17 GM PO BID, #60 PACKET 08/28/18 Metoprolol Tartrate* (Lopressor*) 25 Mg Tab, 12.5 MG PO DAILY, #60 TAB HOLD IF SBP<115 OR HR<60 08/28/18 Levetiracetam* (Keppra*) 500 Mg Tablet, 500 MG PO BID, TAB 08/28/18 Gabapentin* (Gabapentin*) 400 Mg Capsule, 400 MG PO TID, #90 CAP 08/28/18 Phenylephrine HCl/[place] Butter* (Preparation H* Suppository) 1 Each Supp.rect, 1 EACH MS DAILY PRN for CONSTIPATION, SUPP.RECT 08/28/18 Mineral Oil* (Fleet* Mineral Oil Enema) 133 Ml Oil, 133 ML MS DAILY PRN for CONSTIPATION, ENEMA 08/28/18 Acetaminophen* (Acetaminophen*) 650 Mg Tablet, 650 MG PO DAILY PRN for PAIN AND OR ELEVATED TEMP, #30 TAB 08/28/18 Bisacodyl* (Bisacodyl*) 5 Mg Tablet.dr, 10 MG PO DAILY PRN for CONSTIPATION, TAB 08/28/18 Allergies Allergies: Coded Allergies: Penicillins (Unverified Allergy, Unknown, 11/08/18) Sulfa (Sulfonamide Antibiotics) (Unverified Allergy, Unknown, 11/08/18) clindamycin (Unverified Allergy, Unknown, 11/08/18) ketorolac (Unverified Allergy, Unknown, 11/08/18) lactase (Unverified Allergy, Unknown, 11/08/18) Uncoded Allergies: TRYPTOPHAN (Allergy, Unknown, 08/28/18) PMhx/Soc History of Surgery: Yes (GT PLACEMENT) Anesthesia Reaction: No (UNKNOWN) Hx Neurological Disorder: Yes (DEMENTIA, ENCEPHALOPATHY) Hx Respiratory Disorders: Yes (PNEUMONIA) Hx Cardiac Disorders: Yes (HTN, HYPERLIPIDEMIA, AFIB) Hx Psychiatric Problems: Yes (SCHIZOPHREMIA) Hx Miscellaneous Medical Probl: No Hx Alcohol Use: No Hx Substance Use: No Hx Tobacco Use: No Physical Exam Vitals Vital Signs Date Temp Pulse Resp B/P (MAP) Pulse Ox O2 O2 Flow FiO2 Time Delivery Rate 11/08/18 99.7 90 20 159/106 100 10:10 (123) Physical Exam General: No significant distress Head: Normocephalic, atraumatic. Eyes: Pupils equally reactive, EOM intact ENT: Moist mucous membranes Neck: Supple, no lymphadenopathy, no midline deformities or step-offs, limited exam Respiratory: Lungs clear bilaterally, no distress Cardiovascular: RRR, no murmurs, rubs, or gallops Abdominal: Soft, non-tender, non-distended, no peritoneal signs, stoma appears to have dry scab overlying the os : Deferred MSK: Limited movement of all 4 extremities, no bony abnormalities Neurologic: Limited exam, and encephalopathic, limited movement of all 4 extremities Skin: No rash, no significant breakdown, no evidence of trauma bruising or injury to the extremities trunk or abdomen or back Psych: Unable to assess Results 24 hrs Current Medications Medications Dose Sig/Ramya Start Time Status Last (Trade) Ordered Route PRN Stop Time Admin Dose Reason Admin Diatrizoate 30 ml ONCE ONCE 11/08/18 DC 11/08/18 Meglum/ PO 10:30 11/08/18 11:03 Diatrizoate 10:31 Sod (Gastrografin 66-10 Solution) Procedures/MDM EKG, MONITORS, & DIAGNOSTIC IMAGING: CT brain: No acute process per radiologist read CT C spine: No acute process per radiologist read PROCEDURES: G Tube Insertion: Consent: Encephalopathic, unable to provide consent Indication: Malfunctioning G Tube G Tube Size: 20 [place] Procedure: Sterile procedure was observed. The new G-tube was checked for leaks and was lubricated. Insertion of the new G-tube through stoma was performed without complications and met no resistance. The balloon was then inflated, the tube was pulled back and plastic wheel was adjusted to the skin. The G-tube was then dressed and secured in place. There is a very small amount of bleeding noted with the insertion as there was some scab formation and likely subacute G- tube removal. A postplacement x-ray with water-soluble contrast was ordered. There were no complications and the patient tolerated the procedure well. X-ray Abdomen 1V Interpreted by me: Free Air: None Bowel Gas: Intraluminal Gastrografin Soft Tissue: Normal MEDICAL DECISION MAKING: Patient presents because of G-tube fell out. G-tube was replaced as documented above. Secondarily was noted by EMS the patient was found out of bed on the ground. The patient exhibits no signs or symptoms concerning for traumatic injury but given the patient's age, comorbidity CT imaging of the head and cervical spine would be most appropriate. There is no report that the patient had a syncopal episode and the patient is at her neurologic baseline. No indication for labs, EKG or inpatient hospitalization at this time. ER COURSE: * G-tube was replaced as documented above * CT imaging shows no evidence of traumatic injury. The patient remains at her baseline. The patient can be safely discharged back to assisted living facility. CONSULTATION: None DISPOSITION PLAN: The patient does not have an identifiable emergent medical condition that warrants inpatient hospitalization at this time. The patient is deemed safe for discharge with outpatient follow-up. Outpatient referral: None required Departure Diagnosis: Primary Impression: Encounter for feeding tube placement Additional Impression: Encephalopathy chronic Condition: Stable VITA CASTRO MD Nov 08, 2018 10:26
[2018-11-08] MEDS ORDERED: DIATR MEGLU/DIATRIZOATE SODIUM 30 ML SOLUTION PO ONE (10:30)
== END 2018-11-08 13:41 | disposition home or self-care (01) ==
LOC: E/R 09:58
DX: G93.49 Other encephalopathy (principal); I10 Essential (primary) hypertension
CPT/HCPCS: 70450; 72125; 74018